=== PATIENT | female | born 1960 | race Hispanic/Latino ===

== ENCOUNTER 2016-10-27 08:23 | Inpatient (IN) | payer MEDICARE, OTHER ==
[2016-10-27] MEDS ORDERED: Sodium Chloride 0.9% 500 ML IV STA ×2 (08:58→09:53)
--- NOTE | 2016-10-27 09:08 | ED PDOC ---
Arrival/HPI - General Chief Complaint: Trauma Time Seen by Provider: 10/27/16 08:51 Historian: Patient - History of Present Illness Narrative History of Present Illness (Text): 10/27/16 08:45 A 56 year old female, whose past medical history includes anemia, arthritis, COPD on home oxygen as needed, diabetes and CHF, presents to the emergency department complaining of generalized fatigue since yesterday. Patient reports her legs feel weak and she "can not walk." She says when laying down she is able to move all four of her extremities without difficulty. She denies any bowel/bladder incontinence, chest pain, shortness of breath, back pain or other complaints at this time. Patient believes symptoms are secondary to a new medication she was started on but she can not recall the name but does believe it is a mediation for her CHF. PMD: Dr. Zhu Time/Duration: 24 hours Symptom Onset: Sudden Symptom Course: Unchanged Quality: Other Activities at Onset: Rest Context: Home Past Medical History - Provider Review Nursing Documentation Reviewed: Yes - Infectious Disease Hx of Infectious Diseases: None - Tetanus Immunization Tetanus Immunization: Unknown - Reproductive Menopause: Yes - Cardiac Hx Cardiac Disorders: Yes Hx Congestive Heart Failure: Yes Hx Heart Murmur: Yes Hx Hypertension: No Other/Comment: cardiomyopathy - Pulmonary Hx Chronic Obstructive Pulmonary Disease (COPD): Yes - Neurological Hx Neurological Disorder: Yes Hx Dizziness: Yes Other/Comment: Restless leg syndrome. Fibromyalgia - HEENT Hx HEENT Disorder: Yes Hx Epistaxis: Yes - Renal Hx Renal Disorder: Yes Hx Kidney Stones: Yes - Endocrine/Metabolic Hx Endocrine Disorders: Yes Hx Diabetes Mellitus Type 2: Yes - Hematological/Oncological Hx Blood Disorders: Yes Hx Anemia: Yes - Integumentary Hx Dermatological Disorder: Yes - Musculoskeletal/Rheumatological Hx Arthritis: Yes - Gastrointestinal Hx Gastrointestinal Disorders: Yes Hx Gastrointestinal Ulcer: Yes - Genitourinary/Gynecological Hx Genitourinary Disorders: Yes Hx Incontinence: Yes Hx Urinary Tract Infection: Yes Other/Comment: Endometriosis - Psychiatric Hx Psychophysiologic Disorder: Yes Hx Anxiety: Yes Hx Depression: Yes Hx Emotional Abuse: No Hx Physical Abuse: No Hx Substance Use: No - Surgical History Hx Appendectomy: Yes Hx Cardiac Catheterization: Yes Hx Coronary Stent: Yes Other/Comment: Abd lap W R oophorectomy & partial L oophrectomy. c section, I & D cellulitis both legs, bilateral axilla, - Anesthesia Hx Anesthesia: Yes Hx Anesthesia Reactions: No Hx Malignant Hyperthermia: No - Suicidal Assessment Feels Threatened In Home Enviroment: No Family/Social History - Physician Review Nursing Documentation Reviewed: Yes Family/Social History: Unknown Family HX Smoking Status: Never Smoked Hx Alcohol Use: No Hx Substance Use: No Hx Substance Use Treatment: No Allergies/Home Meds Allergies/Adverse Reactions: Allergies theophylline Allergy (Verified 09/16/15 17:29) NAUSEA Home Medications: Home Meds Medication Instructions Recorded Confirmed Atorvastatin Calcium [Lipitor] 20 mg PO DAILY 07/08/12 07/19/16 Carvedilol 6.25 mg PO BID 07/08/12 07/19/16 Ferrous Gluconate [Iron] 325 mg PO TID 07/08/12 07/19/16 Gemfibrozil 600 mg PO BID 07/08/12 07/19/16 Insulin Detemir [Levemir] 45 units SC AMHS 07/08/12 07/19/16 Iron/C/Folic Acd/Mv Cmb11/Calc 1 tab PO DAILY 07/08/12 07/19/16 [Ferrex 28 Tablet] Lactobacillus Acidophilus 300 mg PO DAILY 07/08/12 07/19/16 [Acidophilus] Montelukast Sodium [Singulair] 10 mg PO DAILY 07/08/12 07/19/16 Multimineral/Multivitamin 1 tab PO DAILY 07/08/12 07/19/16 [Strovite Plus] Potassium Chloride [Klor-Con] 20 meq PO BID 07/08/12 07/19/16 Quetiapine Fumarate [Seroquel] 100 mg PO HS 07/08/12 07/19/16 Clopidogrel Hydrogen Sulfate 75 mg PO DAILY 08/13/13 07/19/16 [Plavix] Allopurinol 300 mg PO DAILY 06/26/14 07/19/16 Pantoprazole Sodium [Protonix] 20 mg PO DAILY 06/26/14 07/19/16 fluvoxaMINE [Luvox] 50 mg PO BID 06/26/14 07/19/16 Insulin Lispro, Recombinant 40 unit SC ACTID 06/29/14 07/19/16 [Humalog] ALPRAZolam [Xanax] 1 tab PO DAILY 09/16/15 07/19/16 Albuterol HFA [Ventolin HFA 90 1 inh INH PRN PRN 09/16/15 07/19/16 mcg/actuation (8 g)] Budesonide/Formoterol Fumarate 2 inh INH BID 09/16/15 07/19/16 [Symbicort 80-4.5 Mcg Inhaler] Calcium Carbonate/Vitamin D3 1 tab PO BID 09/16/15 07/19/16 [Calcium 600 + Vit D 400 Caplet] Gemfibrozil [Lopid] 600 mg PO BID 09/16/15 07/19/16 Levocetirizine Dihydrochloride 5 mg PO HS 09/16/15 07/19/16 Vitamin B Complex 1 tab PO DAILY 09/16/15 07/19/16 Vitamin E 400 unit PO DAILY 09/16/15 07/19/16 metFORMIN [glucOPHAGE] 850 mg PO BID 09/16/15 07/19/16 Pregabalin [Lyrica] 50 mg PO BID 07/19/16 07/19/16 Review of Systems - Review of Systems Constitutional: Fatigue. absent: Fevers Eyes: absent: Vision Changes ENT: absent: Sinus Congestion Respiratory: absent: SOB Cardiovascular: absent: Chest Pain Gastrointestinal: Other (no bowel incontinence). absent: Abdominal Pain Genitourinary Female: Other (no bladder incontinence) Musculoskeletal: absent: Back Pain Skin: absent: Rash Neurological: Other (lower extremities feel weak and therefore she can't walk). absent: Headache, Dizziness Endocrine: absent: Polyuria Psychiatric: absent: Depression Physical Exam Vital Signs Reviewed: Yes Vital Signs Temp Pulse Resp BP Pulse Ox 10/27/16 10:20 79 18 124/88 94 L 10/27/16 09:41 82 17 124/68 93 L 10/27/16 08:39 98.9 F 103 H 17 116/65 82 L Temperature: Afebrile Blood Pressure: Normal Pulse: Tachycardic Respiratory Rate: Normal Appearance: Positive for: Well-Appearing, Non-Toxic, Comfortable Pain Distress: None Mental Status: Positive for: Alert and Oriented X 3 Finger Stick Blood Glucose: 352 - Systems Exam Head: Present: Atraumatic, Normocephalic Pupils: Present: PERRL Extroacular Muscles: Present: EOMI Conjunctiva: Present: Normal Mouth: Present: Moist Mucous Membranes Neck: Present: Normal Range of Motion Respiratory/Chest: Present: Clear to Auscultation, Good Air Exchange. No: Respiratory Distress, Accessory Muscle Use Cardiovascular: Present: Normal S1, S2, Tachycardic. No: Murmurs Abdomen: Present: Normal Bowel Sounds. No: Tenderness, Distention, Peritoneal Signs Back: Present: Normal Inspection Upper Extremity: Present: Normal Inspection, Normal ROM, Other (5/5 strength in upper and lower extremities when tested in stretcher). No: Cyanosis, Edema Lower Extremity: Present: Normal ROM, Other (small abrasion to the left knee). No: Edema Neurological: Present: GCS=15, CN II-XII Intact, Speech Normal. No: Gait Normal (unable to assess gait) Skin: Present: Warm, Dry, Normal Color. No: Rashes Psychiatric: Present: Alert, Oriented x 3, Normal Insight, Normal Concentration Medical Decision Making ED Course and Treatment: 10/27/16 08:45 Impression: A 56 year old female with generalized weakness. Differential Diagnosis include but are not limited to: anemia vs. electrolyte imbalance vs. medication side affect Plan: -- EKG -- Chest X-ray -- Labs -- Urinalysis -- IV Fluids -- Reassess and disposition Prior Visits: Notes and results from previous visits were reviewed. The patient last presented to the emergency department on 09/16/15 for evaluation of dizziness, nausea, shortness of breath and epistaxis. Progress Notes: EKG: Ordered, reviewed, and independently interpreted the EKG. Rate : 83 BPM Rhythm : NSR Interpretation : normal intervals; no ST changes. 10/27/16 09:20 Chest X-ray: Creator : Joe Hylton MD COMPARISON: 09/19/2016 FINDINGS: LUNGS: There is an infiltrate in the right upper lobe peripherally PLEURA: No significant pleural effusion identified, no pneumothorax apparent. CARDIOVASCULAR: Normal. OSSEOUS STRUCTURES: No significant abnormalities. VISUALIZED UPPER ABDOMEN: Normal. OTHER FINDINGS: None. IMPRESSION: Right upper lobe pneumonia Patient now reports that her unknown medication was metolazone, a diuretic. 10/27/16 09:43 Blood and urine cultures ordered. Antibiotics ordered 10/27/16 09:48 Hgb:7. Patient has hx of severe iron deficiency anemia. Type and cross ordered and 1 unit PRBCS ordered. 10/27/16 09:53 Patient's labs show elevated WBC of 15, renal failure with Bun 134/3 and hyperglycemia. Patient has hx of chf and elevated bnp, but maintaining o2 sat on home o2 and does not currently appear overloaded. Will need to monitor respiratory status due to need for blood, IVF and antibiotics. Spoke to Dr. Zhu and will admit to tele for renal failure, anemia, and pneumonia - Lab Interpretations Lab Results: 10/27/16 09:10 10/27/16 09:10 Lab Results 10/27/16 09:10: Sodium 130 L, Potassium 4.0, Chloride 87 L, Carbon Dioxide 28, Anion Gap 19, BUN 134 H*, Creatinine 3.0 H, Est GFR ( Amer) 20, Est GFR ( Non-Af Amer) 16, Random Glucose 440 H* D, Calcium 10.1, Phosphorus 3.3, Magnesium 2.3 H, Total Bilirubin 0.8, AST 40 H, ALT 25, Alkaline Phosphatase 100 , Total Creatine Kinase 189, Troponin I 0.05 D, NT-Pro-B Natriuret Pep 1910 H, Total Protein 8.0, Albumin 4.3, Globulin 3.7, Albumin/Globulin Ratio 1.2 10/27/16 09:10: WBC 15.4 H D, RBC 2.58 L, Hgb 7.6 L, Hct 23.5 L, MCV 91.1, MCH 29.5, MCHC 32.3, RDW 17.0 H, Plt Count 239, MPV 12.7 H, Gran % 84.0 H, Lymph % ( Auto) 7.2 L, [place] % (Auto) 6.5 H, Eos % (Auto) 1.9, Baso % (Auto) 0.4, Gran # 12.92 H, Lymph # 1.1 L, [place] # 1.0 H, Eos # 0.3, Baso # 0.06 I have reviewed the lab results: Yes - RAD Interpretation Radiology Orders: 10/27/16 08:52 CHEST PORTABLE [RAD] Stat - Medication Orders Current Medication Orders: Acetaminophen (Tylenol 325mg Tab) 650 mg PO Q6H PRN PRN Reason: Fever >100.4 F Alprazolam (Xanax) 1 mg PO TID PRN PRN Reason: Anxiety Atorvastatin Calcium (Lipitor) 20 mg PO DAILY [facility] Carvedilol (Coreg) 6.25 mg PO BID [facility] Clopidogrel Bisulfate (Plavix) 75 mg PO DAILY [facility] Sodium Chloride (Sodium Chloride 0.45%) 1,000 mls @ 60 mls/hr IV .[id number] [facility] Azithromycin (Zithromax 500mg In Ns) 500 mg in 250 mls @ 167 mls/hr IVPB DAILY [facility] PRN Reason: Protocol Ceftriaxone Sodium (Rocephin 1 Gram Ivpb) 1 gm in 100 mls @ 100 mls/hr IVPB DAILY [facility] PRN Reason: Protocol Insulin Human Regular (Humulin R High) 0 units SC ACHS [facility] PRN Reason: Protocol Lactobacillus Acidophilus (Bacid Acidophilus) 1 cap PO DAILY [facility] Levalbuterol HCl (Xopenex) 1.25 mg IH [id number] [facility] Non-Formulary Medication (Fluvoxamine [Luvox]) 50 mg PO BID [facility] Ondansetron HCl (Zofran Inj) 4 mg IVP Q6H PRN PRN Reason: Nausea/Vomiting Pantoprazole Sodium (Protonix Ec Tab) 40 mg PO ACB [facility] Pregabalin (Lyrica) 50 mg PO BID [facility] Quetiapine Fumarate (Seroquel) 100 mg PO HS [facility] PRN Reason: Protocol Discontinued Medications Alprazolam (Xanax) 1 mg PO TID PRN; Protocol PRN Reason: Anxiety Stop: 11/03/16 14:01 Clopidogrel Bisulfate (Plavix) 75 mg PO .EXTRA DOSE ONE Stop: 10/27/16 11:01 Sodium Chloride (Sodium Chloride 0.9%) 500 mls @ 999 mls/hr IV .Q31M STA Stop: 10/27/16 09:28 Last Admin: 10/27/16 09:45 Dose: 999 mls/hr Levofloxacin/Dextrose (Levaquin 750mg) 750 mg in 150 mls @ 100 mls/hr IVPB STAT STA Stop: 10/27/16 11:16 Last Admin: 10/27/16 10:29 Dose: 100 mls/hr Sodium Chloride (Sodium Chloride 0.9%) 500 mls @ 999 mls/hr IV .Q31M STA Stop: 10/27/16 10:23 Last Admin: 10/27/16 10:00 Dose: 999 mls/hr Lactobacillus Acidophilus (Bacid Acidophilus) 1 cap PO .EXTRA DOSE ONE Stop: 10/27/16 11:01 Non-Formulary Medication (Clopidogrel Hydrogen Sulfate [Plavix]) 75 mg PO DAILY [facility] Non-Formulary Medication (Lactobacillus Acidophilus [Acidophilus]) 300 mg PO DAILY [facility] Pantoprazole Sodium (Protonix Ec Tab) 40 mg PO DAILY [facility] Pantoprazole Sodium (Protonix Ec Tab) 40 mg PO .EXTRA DOSE ONE Stop: 10/27/16 11:16 - Scribe Statement The provider has reviewed the documentation as recorded by the Miguel Aibhenry Kwon Provider Scribe Attestation: All medical record entries made by the Scribe were at my direction and personally dictated by me. I have reviewed the chart and agree that the record accurately reflects my personal performance of the history, physical exam, medical decision making, and the department course for this patient. I have also personally directed, reviewed, and agree with the discharge instructions and disposition. Disposition/Present on Arrival - Present on Arrival Any Indicators Present on Arrival: No History of DVT/PE: No History of Uncontrolled Diabetes: Yes Urinary Catheter: No History of Decub. Ulcer: No History Surgical Site Infection Following: None - Disposition Have Diagnosis and Disposition been Completed?: Yes Diagnosis: Renal failure, Anemia, Pneumonia Disposition: HOSPITALIZED Disposition Time: 09:48 Patient Plan: Admission Patient Problems: Current Active Problems Problem Status Onset Renal failure Acute Anemia Acute Pneumonia Acute Condition: FAIR
--- NOTE | 2016-10-27 09:17 | RAD ---
HISTORY: fatigue COMPARISON: 09/19/2016 FINDINGS: LUNGS: There is an infiltrate in the right upper lobe peripherally PLEURA: No significant pleural effusion identified, no pneumothorax apparent. CARDIOVASCULAR: Normal. OSSEOUS STRUCTURES: No significant abnormalities. VISUALIZED UPPER ABDOMEN: Normal. OTHER FINDINGS: None. IMPRESSION: Right upper lobe pneumonia
[2016-10-27 09:30] LABS: BASO # 0.06 K/mm3 (0.0-2.0); BASO % 0.4 % (0.0-3.0); EOS # 0.3 (0.0-0.7); EOS % 1.9 % (1.5-5.0); GRAN # 12.92 (1.4-6.5); LYMPH # 1.1 (1.2-3.4); LYMPH % 7.2 % (22.0-35.0); MEAN CELL VOLUME 91.1 fL (80.0-105.0); MEAN CORPUSCULAR HEMOGLOBIN 29.5 pg (25.0-35.0); MEAN CORPUSCULAR HGB CONC 32.3 g/dl (31.0-37.0); MEAN PLATELET VOLUME 12.7 fl (7.0-11.0); MONO % 6.5 % (1.0-6.0); PLATELET COUNT 239 10^3/uL (120.0-450.0); RBC 2.58 10^6/uL (3.5-6.1); WHITE BLOOD COUNT 15.4 10^3/ul (4.5-11.0)
[2016-10-27 09:38] LABS: HEMOGLOBIN 7.6 gm/dL (12.0-16.0)
[2016-10-27 09:41] LABS: ALB/GLOB RATIO 1.2 (1.1-1.8); ALBUMIN 4.3 g/dL (3.0-4.8); CALCIUM 10.1 mg/dL (8.4-10.5); MAGNESIUM 2.3 mg/dL (1.7-2.2)
[2016-10-27] MEDS ORDERED: levoFLOXacin 750 mg in D5W 750 MG/150 ML BAG IVPB STA (09:47)
[2016-10-27 09:52] LABS: TROPONIN I 0.05 ng/mL
[2016-10-27] MEDS ORDERED: FLUVOXAMINE 50 MG PO SCH (10:45)
[2016-10-27] MEDS ORDERED: Pantoprazole 20 mg EC Tab PO SCH (10:45)
[2016-10-27] MEDS ORDERED: LACTOBACILLUS ACIDOPHILUS PO SCH (10:45)
[2016-10-27] MEDS ORDERED: Sodium Chloride 0.45% 1,000 ML IV SCH (11:00)
[2016-10-27] MEDS ORDERED: Lactobacillus Acidophilus 500 MU Cap PO ONE (11:00)
[2016-10-27] MEDS ORDERED: Pantoprazole 40 mg EC Tab PO ONE (11:15)
[2016-10-27] MEDS ORDERED: Insulin Regular 1 UNITS/0.01 ML ML ONE (11:52)
[2016-10-27] MEDS: Lactobacillus Acidophilus 500 MU Cap PO SCH (11:58)
[2016-10-27] MEDS: Pantoprazole 40 mg EC Tab PO SCH (11:58)
[2016-10-27] MEDS: Insulin Reg-HIGH-Coverage SC SCH ×3 (11:59→21:32)
[2016-10-27 12:13] LABS: URINE BILIRUBIN NEGATIVE (NEGATIVE); URINE BLOOD LARGE (NEGATIVE); URINE GLUCOSE (UA) NEGATIVE (NEGATIVE); URINE LEUKOCYTE ESTERASE TRACE Leu/uL (NEGATIVE); URINE NITRATE NEGATIVE (NEGATIVE); URINE PROTEIN 100 mg/dL (<30 mg/dL); URINE UROBILINOGEN 0.2 E.U./dL (<1 E.U./dL)
[2016-10-27 12:18] LABS: URINE APPEARANCE CLOUDY (CLEAR); URINE COLOR YELLOW (YELLOW)
[2016-10-27 12:20] LABS: URINE BACTERIA MANY (NEG)
[2016-10-27] MEDS: Levalbuterol 1.25 MG/3 ML Inhal Soln UD IH SCH ×2 (13:31→19:27)
--- NOTE | 2016-10-27 13:36 | CARD ---
APPROVED REPORT EKG Measurement Heart [id number] <Conclusion> Normal sinus rhythm PRWP V 1 -4
--- NOTE | 2016-10-27 16:05 | CP.PCM.CON ---
History of Present Illness - History of Present Illness History of Present Illness: A 56 year old female, whose past medical history includes anemia, arthritis, COPD on home oxygen as needed, diabetes and CHF, presents to the emergency department complaining of generalized fatigue since yesterday. Patient reports her legs feel weak and she "can not walk." She says when laying down she is able to move all four of her extremities without difficulty. She denies any bowel/bladder incontinence, chest pain, shortness of breath, back pain or other complaints at this time. Patient believes symptoms are secondary to a new medication she was started on but she can not recall the name but does believe it is a mediation for her CHF. She was started on Metolozone BIW by Dr Hartley FHx: NC SHx: No smoking, no alcohol, no IVDA All: NKDA Review of Systems - Review of Systems All systems: reviewed and no additional remarkable complaints except Past Patient History - Infectious Disease Hx of Infectious Diseases: None - Tetanus Immunizations Tetanus Immunization: Unknown - Past Medical History & Family History Past Medical History?: Yes - Past Social History Smoking Status: Never Smoked Alcohol: None - CARDIAC Hx Cardiac Disorders: Yes Hx Congestive Heart Failure: Yes Hx Heart Murmur: Yes Hx Hypertension: No Other/Comment: cardiomyopathy - PULMONARY Hx Chronic Obstructive Pulmonary Disease (COPD): Yes - NEUROLOGICAL Hx Neurological Disorder: Yes Hx Dizziness: Yes Other/Comment: Restless leg syndrome. Fibromyalgia - HEENT Hx HEENT Problems: Yes Hx Epistaxis: Yes - RENAL Hx Chronic Kidney Disease: Yes Hx Kidney Stones: Yes - ENDOCRINE/METABOLIC Hx Endocrine Disorders: Yes Hx Diabetes Mellitus Type 2: Yes - HEMATOLOGICAL/ONCOLOGICAL Hx Blood Disorders: Yes Hx Anemia: Yes - INTEGUMENTARY Hx Dermatological Problems: Yes - MUSCULOSKELETAL/RHEUMATOLOGICAL Hx Arthritis: Yes - GASTROINTESTINAL Hx Gastrointestinal Disorders: Yes - GENITOURINARY/GYNECOLOGICAL Hx Genitourinary Disorders: Yes Hx Incontinence: Yes Hx Urinary Tract Infection: Yes Other/Comment: Endometriosis - PSYCHIATRIC Hx Psychophysiologic Disorder: Yes Hx Anxiety: Yes Hx Depression: Yes Hx Emotional Abuse: No Hx Physical Abuse: No Hx Substance Use: No - SURGICAL HISTORY Hx Appendectomy: Yes Hx Cardiac Catheterization: Yes Hx Coronary Stent: Yes Other/Comment: Abd lap W R oophorectomy & partial L oophrectomy. c section, I & D cellulitis both legs, bilateral axilla, - ANESTHESIA Hx Anesthesia: Yes Hx Anesthesia Reactions: No Hx Malignant Hyperthermia: No Meds Allergies/Adverse Reactions: Allergies Allergy/AdvReac Type Severity Reaction Status Date / Time theophylline Allergy NAUSEA Verified 09/16/15 17:29 - Medications Medications: Current Medications Acetaminophen (Tylenol 325mg Tab) 650 mg PO Q6H PRN PRN Reason: Fever >100.4 F Alprazolam (Xanax) 1 mg PO TID PRN PRN Reason: Anxiety Atorvastatin Calcium (Lipitor) 20 mg PO DAILY [facility] Carvedilol (Coreg) 6.25 mg PO BID [facility] Last Admin: 10/27/16 11:59 Dose: 6.25 mg Clopidogrel Bisulfate (Plavix) 75 mg PO DAILY [facility] Last Admin: 10/27/16 11:58 Dose: 75 mg Sodium Chloride (Sodium Chloride 0.45%) 1,000 mls @ 60 mls/hr IV .[id number] [facility] Last Admin: 10/27/16 11:36 Dose: 60 mls/hr Azithromycin (Zithromax 500mg In Ns) 500 mg in 250 mls @ 167 mls/hr IVPB DAILY [facility] PRN Reason: Protocol Ceftriaxone Sodium (Rocephin 1 Gram Ivpb) 1 gm in 100 mls @ 100 mls/hr IVPB DAILY [facility] PRN Reason: Protocol Insulin Human Regular (Humulin R High) 0 units SC ACHS [facility] PRN Reason: Protocol Last Admin: 10/27/16 11:59 Dose: 15 units Lactobacillus Acidophilus (Bacid Acidophilus) 1 cap PO DAILY [facility] Last Admin: 10/27/16 12:01 Dose: 1 cap Levalbuterol HCl (Xopenex) 1.25 mg IH [id number] [facility] Last Admin: 10/27/16 13:31 Dose: 1.25 mg Non-Formulary Medication (Fluvoxamine [Luvox]) 50 mg PO BID [facility] Ondansetron HCl (Zofran Inj) 4 mg IVP Q6H PRN PRN Reason: Nausea/Vomiting Pantoprazole Sodium (Protonix Ec Tab) 40 mg PO ACB [facility] Last Admin: 10/27/16 11:58 Dose: 40 mg Pregabalin (Lyrica) 50 mg PO BID [facility] Quetiapine Fumarate (Seroquel) 100 mg PO HS [facility] PRN Reason: Protocol Physical Exam - Constitutional Appears: Unkempt, Confused - Head Exam Head Exam: ATRAUMATIC, NORMAL INSPECTION, NORMOCEPHALIC - Eye Exam Eye Exam: Normal appearance - ENT Exam ENT Exam: Mucous Membranes Dry - Neck Exam Neck exam: Positive for: Normal Inspection - Respiratory Exam Respiratory Exam: Rhonchi, NORMAL BREATHING PATTERN - Cardiovascular Exam Cardiovascular Exam: REGULAR RHYTHM, +S1, +S2 - GI/Abdominal Exam GI & Abdominal Exam: Normal Bowel Sounds, Soft - Extremities Exam Extremities exam: Positive for: normal inspection, pedal pulses present Results - Vital Signs Recent Vital Signs: Last Vital Signs Temp 97.6 F 10/27/16 13:15 Pulse 79 10/27/16 13:15 Resp 20 10/27/16 13:15 BP 125/70 10/27/16 13:15 Pulse Ox 95 10/27/16 11:59 - Labs Result Diagrams: 10/27/16 09:10 10/27/16 09:10 Labs: Laboratory Results - last 24 hr 10/27/16 10/27/16 10/27/16 10:40 11:22 11:55 POC Glucose (mg/dL) 416 H* Troponin I Urine Color Yellow Urine Appearance Cloudy Urine pH 6.0 Ur Specific [place] 1.020 Urine Protein 100 H Urine Glucose (UA) Negative Urine Ketones Negative Urine Blood Large H Urine Nitrate Negative Urine Bilirubin Negative Urine Urobilinogen 0.2 Ur Leukocyte Esterase Trace H Urine RBC 5 - 10 Urine WBC 10 - 15 Ur Epithelial Cells 10 - 12 Urine Bacteria Many Blood Type A POSITIVE Antibody Screen Negative Crossmatch See Detail BBK History Checked Patient has bt 10/27/16 12:00 POC Glucose (mg/dL) Troponin I 0.04 Urine Color Urine Appearance Urine pH Ur Specific [place] Urine Protein Urine Glucose (UA) Urine Ketones Urine Blood Urine Nitrate Urine Bilirubin Urine Urobilinogen Ur Leukocyte Esterase Urine RBC Urine WBC Ur Epithelial Cells Urine Bacteria Blood Type Antibody Screen Crossmatch BBK History Checked Assessment & Plan - Assessment and Plan (Free Text) Assessment: JAMIL, Prerenal azotemia 2/2 to Lasix Dehydration Depletional hyponatremia suspect Contarction alkalosis NIDDM Neuropathy Hematuria/Proteinuria Severe Anemia, ??? etiology IVF, NS at 80cc/hr Strict I/O Hold Diuretics Hold Metformin Tight glycemic control Check urine c/s Monitor electrolytes closely Abdominal imaging: increased girth Thank u for allowing me to participate in the care of this patient - Date & Time Date: 10/27/16 Time: 13:00
[2016-10-27] MEDS: Sodium Chloride 0.9% 1,000 ML IV SCH (16:33)
--- NOTE | 2016-10-27 16:59 | CP.PCM.CON ---
History of Present Illness - History of Present Illness History of Present Illness: Rerason For consult: Hx of CAD, Hx of CMP, admitted with pneumonia and anemia. 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 PMHX Anemia on IV Iron Hx of CAD S/p PTCA LAD 03/03/2013 T2 DM Obesity COPd on Home O2 off and On Obesity Shx ; denies smoking, ETOH Recent Cardiac W/u : Stress test 07/19/2016 EF-60%, no Ischemia ...no change from 08/18/2013 ECHO.. 07/19/2016 EF-55%Mild to Moderate 'Trace MR/TR [id number]. Review of Systems - Constitutional Constitutional: As Per HPI, Anorexia, Fatigue - EENT Eyes: As Per HPI Nose/Mouth/Throat: As Per HPI - Breasts Breasts: As Per HPI - Cardiovascular Cardiovascular: As Per HPI - Respiratory Respiratory: Cough - Gastrointestinal Gastrointestinal: As Per HPI Additional comments: NO Hx of vomiting or jose - Genitourinary Genitourinary: As Per HPI - Reproductive: Female Reproductive:Female: As Per HPI - Menstruation Menstruation: As Per HPI Past Patient History - Infectious Disease Hx of Infectious Diseases: None - Tetanus Immunizations Tetanus Immunization: Unknown - Past Medical History & Family History Past Medical History?: Yes - Past Social History Smoking Status: Never Smoked Alcohol: None - CARDIAC Hx Cardiac Disorders: Yes Hx Congestive Heart Failure: Yes Hx Heart Murmur: Yes Hx Hypertension: No Other/Comment: cardiomyopathy - PULMONARY Hx Chronic Obstructive Pulmonary Disease (COPD): Yes - NEUROLOGICAL Hx Neurological Disorder: Yes Hx Dizziness: Yes Other/Comment: Restless leg syndrome. Fibromyalgia - HEENT Hx HEENT Problems: Yes Hx Epistaxis: Yes - RENAL Hx Chronic Kidney Disease: Yes Hx Kidney Stones: Yes - ENDOCRINE/METABOLIC Hx Endocrine Disorders: Yes Hx Diabetes Mellitus Type 2: Yes - HEMATOLOGICAL/ONCOLOGICAL Hx Blood Disorders: Yes Hx Anemia: Yes - INTEGUMENTARY Hx Dermatological Problems: Yes - MUSCULOSKELETAL/RHEUMATOLOGICAL Hx Arthritis: Yes - GASTROINTESTINAL Hx Gastrointestinal Disorders: Yes - GENITOURINARY/GYNECOLOGICAL Hx Genitourinary Disorders: Yes Hx Incontinence: Yes Hx Urinary Tract Infection: Yes Other/Comment: Endometriosis - PSYCHIATRIC Hx Psychophysiologic Disorder: Yes Hx Anxiety: Yes Hx Depression: Yes Hx Emotional Abuse: No Hx Physical Abuse: No Hx Substance Use: No - SURGICAL HISTORY Hx Appendectomy: Yes Hx Cardiac Catheterization: Yes Hx Coronary Stent: Yes Other/Comment: Abd lap W R oophorectomy & partial L oophrectomy. c section, I & D cellulitis both legs, bilateral axilla, - ANESTHESIA Hx Anesthesia: Yes Hx Anesthesia Reactions: No Hx Malignant Hyperthermia: No Meds Allergies/Adverse Reactions: Allergies Allergy/AdvReac Type Severity Reaction Status Date / Time theophylline Allergy NAUSEA Verified 09/16/15 17:29 - Medications Medications: Current Medications Acetaminophen (Tylenol 325mg Tab) 650 mg PO Q6H PRN PRN Reason: Fever >100.4 F Alprazolam (Xanax) 1 mg PO TID PRN PRN Reason: Anxiety Atorvastatin Calcium (Lipitor) 20 mg PO DAILY [facility] Carvedilol (Coreg) 6.25 mg PO BID [facility] Last Admin: 10/27/16 11:59 Dose: 6.25 mg Clopidogrel Bisulfate (Plavix) 75 mg PO DAILY [facility] Last Admin: 10/27/16 11:58 Dose: 75 mg Azithromycin (Zithromax 500mg In Ns) 500 mg in 250 mls @ 167 mls/hr IVPB DAILY [facility] PRN Reason: Protocol Ceftriaxone Sodium (Rocephin 1 Gram Ivpb) 1 gm in 100 mls @ 100 mls/hr IVPB DAILY [facility] PRN Reason: Protocol Sodium Chloride (Sodium Chloride 0.9%) 1,000 mls @ 80 mls/hr IV .[id number] [facility] Insulin Human Regular (Humulin R High) 0 units SC ACHS [facility] PRN Reason: Protocol Last Admin: 10/27/16 11:59 Dose: 15 units Lactobacillus Acidophilus (Bacid Acidophilus) 1 cap PO DAILY [facility] Last Admin: 10/27/16 12:01 Dose: 1 cap Levalbuterol HCl (Xopenex) 1.25 mg IH [id number] [facility] Last Admin: 10/27/16 13:31 Dose: 1.25 mg Non-Formulary Medication (Fluvoxamine [Luvox]) 50 mg PO BID [facility] Ondansetron HCl (Zofran Inj) 4 mg IVP Q6H PRN PRN Reason: Nausea/Vomiting Pantoprazole Sodium (Protonix Ec Tab) 40 mg PO ACB [facility] Last Admin: 10/27/16 11:58 Dose: 40 mg Pregabalin (Lyrica) 50 mg PO BID [facility] Quetiapine Fumarate (Seroquel) 100 mg PO HS [facility] PRN Reason: Protocol Physical Exam - Head Exam Head Exam: NORMAL INSPECTION - Eye Exam Eye Exam: Normal appearance - ENT Exam ENT Exam: Mucous Membranes Moist - Neck Exam Neck exam: Positive for: Full Rom - Respiratory Exam Respiratory Exam: Clear to Auscultation Bilateral Results - Vital Signs Recent Vital Signs: Last Vital Signs Temp 97.6 F 10/27/16 13:15 Pulse 79 10/27/16 13:15 Resp 20 10/27/16 13:15 BP 125/70 10/27/16 13:15 Pulse Ox 95 10/27/16 11:59 - Labs Result Diagrams: 10/27/16 09:10 10/27/16 09:10 Labs: Laboratory Results - last 24 hr 10/27/16 10/27/16 10/27/16 10:40 11:22 11:55 POC Glucose (mg/dL) 416 H* Troponin I Urine Color Yellow Urine Appearance Cloudy Urine pH 6.0 Ur Specific Hundred 1.020 Urine Protein 100 H Urine Glucose (UA) Negative Urine Ketones Negative Urine Blood Large H Urine Nitrate Negative Urine Bilirubin Negative Urine Urobilinogen 0.2 Ur Leukocyte Esterase Trace H Urine RBC 5 - 10 Urine WBC 10 - 15 Ur Epithelial Cells 10 - 12 Urine Bacteria Many Blood Type A POSITIVE Antibody Screen Negative Crossmatch See Detail BBK History Checked Patient has bt 10/27/16 10/27/16 12:00 16:15 POC Glucose (mg/dL) 416 H* Troponin I 0.04 Urine Color Urine Appearance Urine pH Ur Specific Hundred Urine Protein Urine Glucose (UA) Urine Ketones Urine Blood Urine Nitrate Urine Bilirubin Urine Urobilinogen Ur Leukocyte Esterase Urine RBC Urine WBC Ur Epithelial Cells Urine Bacteria Blood Type Antibody Screen Crossmatch BBK History Checked Assessment & Plan - Assessment and Plan (Free Text) Assessment: Severe Anemia admitting Hb. 7.6 HX of Iron deficiency Anemia Hx of CAD. S/p PTCA LAD 03/03/2013 Recent stress test Negative for Ischemia, E60%. 07/19/2016 Recent Echo..EF-55%. Mild to Moderate . Trace MR/TR [id number]..... Copd on Home O2 off and On T2DM Pnenmonia HTN obesity Hx of CMP...resolved. Plan: PRBCs Lasix post transfusion Antibiotics keep Hb...around 10 gm will follow.
[2016-10-27] MEDS: FLUVOXAMINE 50 MG PO SCH (17:31)
[2016-10-27 19:42] VITALS: BMI 29.7
[2016-10-28] MEDS: Levalbuterol 1.25 MG/3 ML Inhal Soln UD IH SCH ×4 (01:03→21:16)
[2016-10-28] MEDS ORDERED: Insulin Regular 1 UNITS/0.01 ML ML SC STA (02:20)
--- NOTE | 2016-10-28 02:20 | CP.PCM.PN ---
Subjective - Date & Time of Evaluation Date of Evaluation: 10/28/16 Time of Evaluation: 02:18 - Subjective Subjective: Nurse Perez calls and tells that patient had sob, she received xopenex treatment and feels better but her FSBS was 381 mg % , she received 3 units of regular insulin and repeat FSBS is 419 mg % . Patient was seen at bedside. States that she did not take any extra food. States that she is on Lantus 45 units BID, Novolog 45 units TID at home. And she is not sure if she skipped any doses. Has no complaints now. Denies blurry vision, increased frequency, neuropathic pain. Pulse ox is 94 % on 4L/min by nasal canula. 56 year old white woman admitted with generalized fatigue,weakness,inability to walk. Has PMH of HTN, IDDM, morbid obesity, CAD, COPD, CHF, depression, recurrent epistaxis. anemia, arthritis, home oxygenation. Objective - Vital Signs/Intake and Output Vital Signs (last 24 hours): Temp Pulse Resp BP Pulse Ox 99.1 F 95 H 20 109/51 L 94 L 10/27/16 23:52 10/27/16 23:52 10/27/16 23:52 10/27/16 23:52 10/27/16 23:52 Intake and Output: 10/27/16 10/28/16 18:59 06:59 Intake Total 745 Balance 745 - Medications Medications: Current Medications Acetaminophen (Tylenol 325mg Tab) 650 mg PO Q6H PRN PRN Reason: Fever >100.4 F Alprazolam (Xanax) 1 mg PO TID PRN PRN Reason: Anxiety Atorvastatin Calcium (Lipitor) 20 mg PO DAILY [facility] Carvedilol (Coreg) 6.25 mg PO BID [facility] Last Admin: 10/27/16 16:59 Dose: 6.25 mg Clopidogrel Bisulfate (Plavix) 75 mg PO DAILY [facility] Last Admin: 10/27/16 11:58 Dose: 75 mg Gabapentin (Neurontin) 100 mg PO QID [facility] PRN Reason: Protocol Last Admin: 10/27/16 21:31 Dose: 100 mg Azithromycin (Zithromax 500mg In Ns) 500 mg in 250 mls @ 167 mls/hr IVPB DAILY [facility] PRN Reason: Protocol Ceftriaxone Sodium (Rocephin 1 Gram Ivpb) 1 gm in 100 mls @ 100 mls/hr IVPB DAILY [facility] PRN Reason: Protocol Sodium Chloride (Sodium Chloride 0.9%) 1,000 mls @ 80 mls/hr IV .[id number] [facility] Last Admin: 10/27/16 16:33 Dose: 80 mls/hr Insulin Human Regular (Humulin R High) 0 units SC ACHS [facility] PRN Reason: Protocol Last Admin: 10/27/16 21:32 Dose: 3 units Lactobacillus Acidophilus (Bacid Acidophilus) 1 cap PO DAILY [facility] Last Admin: 10/27/16 12:01 Dose: 1 cap Levalbuterol HCl (Xopenex) 1.25 mg IH [id number] [facility] Last Admin: 10/28/16 01:03 Dose: 1.25 mg Non-Formulary Medication (Fluvoxamine [Luvox]) 50 mg PO BID [facility] Last Admin: 10/27/16 17:31 Dose: Not Given Ondansetron HCl (Zofran Inj) 4 mg IVP Q6H PRN PRN Reason: Nausea/Vomiting Pantoprazole Sodium (Protonix Ec Tab) 40 mg PO ACB [facility] Last Admin: 10/27/16 11:58 Dose: 40 mg Promethazine HCl/Codeine (Phenergan/Codeine Oral Syrup) 5 ml PO Q6H PRN PRN Reason: Cough and congestion Quetiapine Fumarate (Seroquel) 100 mg PO HS [facility] PRN Reason: Protocol Last Admin: 10/27/16 21:31 Dose: 100 mg - Labs Labs: Most Recent Lab Values WBC 15.4 10^3/ul (4.5-11.0) H D 10/27/16 09:10 RBC 2.58 10^6/uL (3.5-6.1) L 10/27/16 09:10 Hgb 7.6 gm/dL (12.0-16.0) L 10/27/16 09:10 Hct 23.5 % (36.0-48.0) L 10/27/16 09:10 MCV 91.1 fL (80.0-105.0) 10/27/16 09:10 MCH 29.5 pg (25.0-35.0) 10/27/16 09:10 MCHC 32.3 g/dl (31.0-37.0) 10/27/16 09:10 RDW 17.0 % (11.5-14.5) H 10/27/16 09:10 Plt Count 239 10^3/uL (120.0-450.0) 10/27/16 09:10 MPV 12.7 fl (7.0-11.0) H 10/27/16 09:10 Gran % 84.0 % (50.0-68.0) H 10/27/16 09:10 Lymph % (Auto) 7.2 % (22.0-35.0) L 10/27/16 09:10 [place] % (Auto) 6.5 % (1.0-6.0) H 10/27/16 09:10 Eos % (Auto) 1.9 % (1.5-5.0) 10/27/16 09:10 Baso % (Auto) 0.4 % (0.0-3.0) 10/27/16 09:10 Gran # 12.92 (1.4-6.5) H 10/27/16 09:10 Lymph # 1.1 (1.2-3.4) L 10/27/16 09:10 [place] # 1.0 (0.1-0.6) H 10/27/16 09:10 Eos # 0.3 (0.0-0.7) 10/27/16 09:10 Baso # 0.06 K/mm3 (0.0-2.0) 10/27/16 09:10 Sodium 130 mmol/L (132-148) L 10/27/16 09:10 Potassium 4.0 mmol/L (3.6-5.0) 10/27/16 09:10 Chloride 87 mmol/L (98-107) L 10/27/16 09:10 Carbon Dioxide 28 mmol/L (21-33) 10/27/16 09:10 Anion Gap 19 (10-20) 10/27/16 09:10 BUN 134 mg/dL (7-21) H* 10/27/16 09:10 Creatinine 3.0 mg/dL (0.5-1.4) H 10/27/16 09:10 Est GFR ( Amer) 20 10/27/16 09:10 Est GFR (Non-Af Amer) 16 10/27/16 09:10 POC Glucose (mg/dL) 419 mg/dL (65-110) H* 10/28/16 02:01 Random Glucose 440 mg/dL (70-110) H* D 10/27/16 09:10 Calcium 10.1 mg/dL (8.4-10.5) 10/27/16 09:10 Phosphorus 3.3 mg/dL (2.5-4.5) 10/27/16 09:10 Magnesium 2.3 mg/dL (1.7-2.2) H 10/27/16 09:10 Total Bilirubin 0.8 mg/dL (0.2-1.3) 10/27/16 09:10 AST 40 U/L (15-39) H 10/27/16 09:10 ALT 25 U/L (7-56) 10/27/16 09:10 Alkaline Phosphatase 100 U/L (38-133) 10/27/16 09:10 Total Creatine Kinase 189 U/L (35-230) 10/27/16 09:10 Troponin I 0.04 ng/mL 10/27/16 12:00 NT-Pro-B Natriuret Pep 1910 pg/mL (0-450) H 10/27/16 09:10 Total Protein 8.0 g/dL (5.8-8.3) 10/27/16 09:10 Albumin 4.3 g/dL (3.0-4.8) 10/27/16 09:10 Globulin 3.7 gm/dL 10/27/16 09:10 Albumin/Globulin Ratio 1.2 (1.1-1.8) 10/27/16 09:10 Triglycerides 496 mg/dL (35-160) H 10/27/16 09:10 Cholesterol 226 mg/dL (130-200) H 10/27/16 09:10 LDL Cholesterol Direct 70 mg/dL (0-129) 10/27/16 09:10 HDL Cholesterol 24 mg/dL (29-60) L 10/27/16 09:10 Urine Color Yellow (YELLOW) 10/27/16 11:55 Urine Appearance Cloudy (CLEAR) 10/27/16 11:55 Urine pH 6.0 (4.7-8.0) 10/27/16 11:55 Ur Specific [place] 1.020 (1.005-1.035) 10/27/16 11:55 Urine Protein 100 mg/dL (<30 mg/dL) H 10/27/16 11:55 Urine Glucose (UA) Negative mg/dL (NEGATIVE) 10/27/16 11:55 Urine Ketones Negative mg/dL (NEGATIVE) 10/27/16 11:55 Urine Blood Large (NEGATIVE) H 10/27/16 11:55 Urine Nitrate Negative (NEGATIVE) 10/27/16 11:55 Urine Bilirubin Negative (NEGATIVE) 10/27/16 11:55 Urine Urobilinogen 0.2 E.U./dL (<1 E.U./dL) 10/27/16 11:55 Ur Leukocyte Esterase Trace Nikolay/uL (NEGATIVE) H 10/27/16 11:55 Urine RBC 5 - 10 /hpf (0-2) 10/27/16 11:55 Urine WBC 10 - 15 /hpf (0-6) 10/27/16 11:55 Ur Epithelial Cells 10 - 12 /hpf (0-5) 10/27/16 11:55 Urine Bacteria Many (NEG) 10/27/16 11:55 Stool Occult Blood Negative (NEGATIVE) 10/27/16 22:00 Blood Type A POSITIVE 10/27/16 10:40 Antibody Screen Negative 10/27/16 10:40 Crossmatch See Detail 10/27/16 10:40 BBK History Checked Patient has bt 10/27/16 10:40 - Constitutional Appears: Well, No Acute Distress - Head Exam Head Exam: ATRAUMATIC, NORMAL INSPECTION, NORMOCEPHALIC - Eye Exam Eye Exam: Normal appearance - ENT Exam ENT Exam: Normal External Ear Exam - Neck Exam Neck Exam: Normal Inspection - Respiratory Exam Respiratory Exam: NORMAL BREATHING PATTERN - Cardiovascular Exam Cardiovascular Exam: absent: JVD - GI/Abdominal Exam GI & Abdominal Exam: absent: Distended - Rectal Exam Rectal Exam: Deferred - Exam Additional comments: Above deferred. - Extremities Exam Extremities Exam: Normal Inspection - Back Exam Back Exam: NORMAL INSPECTION - Neurological Exam Neurological Exam: Alert, Oriented x3 - Psychiatric Exam Psychiatric exam: Normal Affect, Normal Mood - Skin Skin Exam: Normal Color Assessment and Plan - Assessment and Plan (Free Text) Assessment: Hyperglycemia. IDDM. HTN. Morbid obesity. CAD. CHF. COPD. Depression. Plan: Continue Xopenex prn as ordered. Regular insulin 6 Units SC now. Continue present management. PMD will order more insulin.
[2016-10-28] MEDS: Sodium Chloride 0.9% 1,000 ML IV SCH (04:47)
[2016-10-28 07:25] LABS: BASO # 0.04 K/mm3 (0.0-2.0); BASO % 0.3 % (0.0-3.0); EOS # 0.1 (0.0-0.7); EOS % 0.6 % (1.5-5.0); GRAN # 9.99 (1.4-6.5); GRAN % 83.1 % (50.0-68.0); HEMOGLOBIN 8.5 gm/dL (12.0-16.0); LYMPH # 0.9 (1.2-3.4); LYMPH % 7.4 % (22.0-35.0); MEAN CELL VOLUME 88.6 fL (80.0-105.0); MEAN CORPUSCULAR HEMOGLOBIN 29.4 pg (25.0-35.0); MEAN CORPUSCULAR HGB CONC 33.2 g/dl (31.0-37.0); MEAN PLATELET VOLUME 11.7 fl (7.0-11.0); MONO % 8.6 % (1.0-6.0); PLATELET COUNT 248 10^3/uL (120.0-450.0); RBC 2.89 10^6/uL (3.5-6.1); RED CELL DISTRIBUTION WIDTH 17.5 % (11.5-14.5)
[2016-10-28 07:44] LABS: % IRON SATURATION 7 % (20-55); ALB/GLOB RATIO 1.1 (1.1-1.8); ALBUMIN 3.9 g/dL (3.0-4.8); CALCIUM 9.1 mg/dL (8.4-10.5); IRON 20 ug/dL (45-180); MAGNESIUM 2.1 mg/dL (1.7-2.2); TOTAL IRON BINDING CAPACITY 280 ug/dL (265-497)
[2016-10-28 07:58] LABS: FREE T4 0.54 ng/dL (0.78-2.19)
[2016-10-28] MEDS ORDERED: Potassium Chloride 20 mEq/15 ml LIQ UD PO STA (08:09)
[2016-10-28] MEDS ORDERED: Potassium Chloride 10 mEq 100 ML IVPB SCH (08:15)
[2016-10-28] MEDS ORDERED: Azithromycin 500MG/NS 250ml 250 ML IVPB SCH (10:00)
[2016-10-28] MEDS ORDERED: cefTRIAXone 1 gm 100 ML IVPB SCH (10:00)
--- NOTE | 2016-10-28 10:07 | CP.PCM.PN ---
Subjective - Date & Time of Evaluation Date of Evaluation: 10/28/16 Time of Evaluation: 09:30 - Subjective Subjective: Feels a little better C/o dry mouth C/o cough PE: Vital: reviewed HEENT: NC/AT Neck: Supple, No JVD Lungs: B/l Rhonchi, prolonged expiration, cracles L base CVS: S1S2 RRR Abdomen: Distended, NT, BS+, NO Masses ?? Ascitis Ext: No odema Labs :reviewed Meds: reviewed A/P JAMIL, Prerenal azotemia 2/2 to Lasix + Metolozone Dehydration Depletional hyponatremia suspect Contraction alkalosis NIDDM- uncontrolled Neuropathy Hematuria/Proteinuria Severe Anemia, ??? etiology Severe Hypokalemia IVF, NS at 80cc/hr, Add 20meq KCL KCL 20meq x2 Strict I/O Hold Diuretics Hold Metformin Tight glycemic control Check urine c/s Monitor electrolytes closely Abdominal imaging: increased girth w/u for proteinuria, although diabetic nephropathy suspect [id number] all reviewed, unchanged Objective - Vital Signs/Intake and Output Vital Signs (last 24 hours): Temp Pulse Resp BP Pulse Ox 98.7 F 68 18 125/61 95 10/28/16 06:00 10/28/16 06:00 10/28/16 06:00 10/28/16 06:00 10/28/16 06:00 Intake and Output: 10/28/16 10/28/16 06:59 18:59 Intake Total 1440 Output Total 1102 Balance 338 - Medications Medications: Current Medications Acetaminophen (Tylenol 325mg Tab) 650 mg PO Q6H PRN PRN Reason: Fever >100.4 F Alprazolam (Xanax) 1 mg PO TID PRN PRN Reason: Anxiety Atorvastatin Calcium (Lipitor) 20 mg PO DAILY [facility] Carvedilol (Coreg) 6.25 mg PO BID [facility] Last Admin: 10/27/16 16:59 Dose: 6.25 mg Clopidogrel Bisulfate (Plavix) 75 mg PO DAILY [facility] Last Admin: 10/27/16 11:58 Dose: 75 mg Gabapentin (Neurontin) 100 mg PO QID [facility] PRN Reason: Protocol Last Admin: 10/27/16 21:31 Dose: 100 mg Azithromycin (Zithromax 500mg In Ns) 500 mg in 250 mls @ 167 mls/hr IVPB DAILY [facility] PRN Reason: Protocol Ceftriaxone Sodium (Rocephin 1 Gram Ivpb) 1 gm in 100 mls @ 100 mls/hr IVPB DAILY [facility] PRN Reason: Protocol Iron Sucrose 200 mg/ Sodium (Chloride) 110 mls @ 110 mls/hr IVPB DAILY [facility] Stop: 11/01/16 10:59 Potassium Chloride (Potassium Chloride 20 Meq/100 Ml) 20 meq in 100 mls @ 50 mls/hr IVPB Q2H [facility] Stop: 10/28/16 12:14 Potassium Chloride 20 meq/ (Sodium Chloride) 1,010 mls @ 80 mls/hr IV .[id number] [facility] Insulin Human Regular (Humulin R High) 0 units SC ACHS [facility] PRN Reason: Protocol Last Admin: 10/27/16 21:32 Dose: 3 units Lactobacillus Acidophilus (Bacid Acidophilus) 1 cap PO DAILY [facility] Last Admin: 10/27/16 12:01 Dose: 1 cap Levalbuterol HCl (Xopenex) 1.25 mg IH [id number] [facility] Last Admin: 10/28/16 07:14 Dose: 1.25 mg Non-Formulary Medication (Fluvoxamine [Luvox]) 50 mg PO BID [facility] Last Admin: 10/27/16 17:31 Dose: Not Given Ondansetron HCl (Zofran Inj) 4 mg IVP Q6H PRN PRN Reason: Nausea/Vomiting Pantoprazole Sodium (Protonix Ec Tab) 40 mg PO ACB [facility] Last Admin: 10/27/16 11:58 Dose: 40 mg Promethazine HCl/Codeine (Phenergan/Codeine Oral Syrup) 5 ml PO Q6H PRN PRN Reason: Cough and congestion Quetiapine Fumarate (Seroquel) 100 mg PO [facility] PRN Reason: Protocol Last Admin: 10/27/16 21:31 Dose: 100 mg - Labs Labs: 10/28/16 07:20 10/28/16 07:22
[2016-10-28] MEDS: Insulin Reg-HIGH-Coverage SC SCH ×4 (11:19→23:10)
--- NOTE | 2016-10-28 11:26 | US ---
HISTORY: ascitis, sven COMPARISON: None. TECHNIQUE: Sonographic evaluation of the abdomen. FINDINGS: LIVER: Measures 15.5 x 15.4 cm. Increased echogenicity of the liver parenchyma. No mass. No intrahepatic bile duct dilatation. GALLBLADDER: Gallstones and sludge in the gallbladder. Gallbladder wall thickening measuring 2.8 mm. No focal tenderness COMMON BILE DUCT: Measures 3.2 mm. No stones. No dilatation. PANCREAS: Unremarkable as visualized. No mass. No ductal dilatation. RIGHT KIDNEY: Measures 11.66 x 5.53 x 5.88cm. Normal echogenicity. No calculus, mass, or hydronephrosis. LEFT KIDNEY: Measures 11.42 x 6.32 x 5.63cm. Normal echogenicity. No calculus, mass, or hydronephrosis. SPLEEN: Normal in size and contour. No mass. 12.12 x 4.81 AORTA: No aneurysmal dilatation. IVC: Unremarkable. OTHER FINDINGS: None. IMPRESSION: Gallstones and gallbladder sludge with mild thickening of the wall. Fatty infiltration of the liver
[2016-10-28] MEDS: cefTRIAXone 1 gm 1 GM/100 ML BAG IVPB SCH (11:45)
[2016-10-28] MEDS: Promethazine/Cod 6.25mg-10mg/5ml Syr UD PO PRN (11:46)
[2016-10-28] MEDS: Azithromycin 500MG/NS 250ml 500 MG/250 ML BAG IVPB SCH (12:04)
[2016-10-28] MEDS: FLUVOXAMINE 50 MG PO SCH ×2 (12:06→17:29)
[2016-10-28] MEDS: Insulin Detemir 100 units/ml Vial (Levemir) SC SCH ×2 (12:37→17:50)
[2016-10-28 15:13] LABS: COMPLEMENT C4 37.2 mg/dL (14.0-44.0)
[2016-10-28] MEDS: Insulin Lispro (humaLOG) MIX 75/25(10 ml) SC SCH (17:09)
[2016-10-29] MEDS: Levalbuterol 1.25 MG/3 ML Inhal Soln UD IH SCH ×4 (01:29→20:30)
[2016-10-29] MEDS: Insulin Lispro (humaLOG) MIX 75/25(10 ml) SC SCH ×2 (07:55→17:29)
[2016-10-29] MEDS: Insulin Reg-HIGH-Coverage SC SCH ×4 (07:55→22:31)
[2016-10-29] MEDS: Pantoprazole 40 mg EC Tab PO SCH (07:56)
[2016-10-29 08:27] LABS: CALCIUM 10.2 mg/dL (8.4-10.5); MAGNESIUM 2.1 mg/dL (1.7-2.2)
[2016-10-29] MEDS: Lactobacillus Acidophilus 500 MU Cap PO SCH (09:21)
[2016-10-29] MEDS: FLUVOXAMINE 50 MG PO SCH ×2 (09:27→17:32)
[2016-10-29] MEDS: Insulin Detemir 100 units/ml Vial (Levemir) SC SCH ×2 (09:27→17:30)
[2016-10-29] MEDS: cefTRIAXone 1 gm 1 GM/100 ML BAG IVPB SCH (09:30)
[2016-10-29] MEDS: Azithromycin 500MG/NS 250ml 500 MG/250 ML BAG IVPB SCH (09:30)
[2016-10-29] MEDS: Promethazine/Cod 6.25mg-10mg/5ml Syr UD PO PRN (09:33)
[2016-10-29] MEDS ORDERED: Potassium Chloride 20 MEQ in Sodium Chloride 0.45% 1,000 ML IV SCH (10:24)
[2016-10-29] MEDS: Potassium Chloride 20 MEQ in Sodium Chloride 0.45% 1,000 ML IV SCH ×2 (11:55→23:53)
[2016-10-30] MEDS: Levalbuterol 1.25 MG/3 ML Inhal Soln UD IH SCH ×3 (02:30→13:30)
[2016-10-30 06:48] VITALS: O2SAT 95
[2016-10-30 07:38] LABS: HEMOGLOBIN 9.1 gm/dL (12.0-16.0); MEAN CELL VOLUME 90.9 fL (80.0-105.0); MEAN CORPUSCULAR HEMOGLOBIN 28.5 pg (25.0-35.0); MEAN CORPUSCULAR HGB CONC 31.4 g/dl (31.0-37.0); MEAN PLATELET VOLUME 11.6 fl (7.0-11.0); RBC 3.19 10^6/uL (3.5-6.1); RED CELL DISTRIBUTION WIDTH 18.1 % (11.5-14.5); WHITE BLOOD COUNT 10.1 10^3/ul (4.5-11.0)
[2016-10-30 07:54] LABS: ALB/GLOB RATIO 0.9 (1.1-1.8); ALBUMIN 3.7 g/dL (3.0-4.8); CALCIUM 10.2 mg/dL (8.4-10.5)
[2016-10-30] MEDS: Insulin Reg-HIGH-Coverage SC SCH ×2 (08:16→12:11)
[2016-10-30] MEDS: Pantoprazole 40 mg EC Tab PO SCH (08:16)
[2016-10-30] MEDS: Insulin Lispro (humaLOG) MIX 75/25(10 ml) SC SCH (08:17)
[2016-10-30] MEDS: Potassium Chloride 20 MEQ in Sodium Chloride 0.45% 1,000 ML IV SCH ×2 (08:18→12:30)
[2016-10-30] MEDS: Lactobacillus Acidophilus 500 MU Cap PO SCH (11:04)
[2016-10-30] MEDS: Insulin Detemir 100 units/ml Vial (Levemir) SC SCH (11:05)
[2016-10-30] MEDS: FLUVOXAMINE 50 MG PO SCH (11:05)
[2016-10-30] MEDS: cefTRIAXone 1 gm 1 GM/100 ML BAG IVPB SCH (11:07)
[2016-10-30] MEDS ORDERED: Insulin Lispro (humaLOG) MIX 75/25(10 ml) SC SCH (12:17)
[2016-10-30] MEDS ORDERED: Insulin Detemir 100 units/ml Vial (Levemir) SC SCH (12:18)
--- NOTE | 2016-10-30 13:06 | CP.PCM.PN ---
Subjective - Date & Time of Evaluation Date of Evaluation: 10/30/16 Time of Evaluation: 10:15 - Subjective Subjective: Feels a little better PE: Vital: reviewed HEENT: NC/AT Neck: Supple, No JVD Lungs: B/l Rhonchi, prolonged expiration, cracles L base CVS: S1S2 RRR Abdomen: Distended, NT, BS+, NO Masses ?? Ascitis Ext: No odema Labs :reviewed Meds: reviewed A/P JAMIL, Prerenal azotemia 2/2 to Lasix + Metolozone- Resolving Dehydration Depletional hyponatremia suspect Contraction alkalosis NIDDM- uncontrolled Neuropathy Hematuria/Proteinuria Severe Anemia, ??? etiology Severe Hypokalemia D/c IVF Po KCl Strict I/O Hold Diuretics Hold Metformin, can restart tomorrow Tight glycemic control Check urine c/s Monitor electrolytes closely Abdominal imaging: increased girth, No Ascitis w/u for proteinuria, although diabetic nephropathy suspect Objective - Vital Signs/Intake and Output Vital Signs (last 24 hours): Temp Pulse Resp BP Pulse Ox 98.2 F 86 20 137/75 95 10/30/16 06:00 10/30/16 11:04 10/30/16 06:00 10/30/16 11:04 10/30/16 06:00 Intake and Output: 10/30/16 10/30/16 06:59 18:59 Intake Total 960 Output Total 800 Balance 160 - Medications Medications: Current Medications Acetaminophen (Tylenol 325mg Tab) 650 mg PO Q6H PRN PRN Reason: Fever >100.4 F Acetaminophen (Tylenol 325mg Tab) 650 mg PO Q4H PRN PRN Reason: Pain, Mild (1-3) Alprazolam (Xanax) 1 mg PO TID PRN PRN Reason: Anxiety Atorvastatin Calcium (Lipitor) 20 mg PO DAILY [facility] Last Admin: 10/30/16 11:06 Dose: 20 mg Carvedilol (Coreg) 6.25 mg PO BID [facility] Last Admin: 10/30/16 11:04 Dose: 6.25 mg Clopidogrel Bisulfate (Plavix) 75 mg PO DAILY [facility] Last Admin: 10/30/16 11:06 Dose: 75 mg Gabapentin (Neurontin) 100 mg PO QID [facility] PRN Reason: Protocol Last Admin: 10/30/16 11:06 Dose: 100 mg Azithromycin (Zithromax 500mg In Ns) 500 mg in 250 mls @ 167 mls/hr IVPB DAILY [facility] PRN Reason: Protocol Last Admin: 10/29/16 09:30 Dose: 167 mls/hr Ceftriaxone Sodium (Rocephin 1 Gram Ivpb) 1 gm in 100 mls @ 100 mls/hr IVPB DAILY [facility] PRN Reason: Protocol Last Admin: 10/30/16 11:07 Dose: 100 mls/hr Iron Sucrose 200 mg/ Sodium (Chloride) 110 mls @ 110 mls/hr IVPB DAILY [facility] Stop: 11/01/16 10:59 Last Admin: 10/30/16 12:12 Dose: 110 mls/hr Insulin Detemir (Levemir) 40 unit SC BID [facility] Insulin Human Regular (Humulin R High) 0 units SC ACHS [facility] PRN Reason: Protocol Last Admin: 10/30/16 12:11 Dose: 10 units Insulin Lispro Protam/Lispro Human (Humalog Mix 75/25) 35 units SC ACBD [facility] Lactobacillus Acidophilus (Bacid Acidophilus) 1 cap PO DAILY [facility] Last Admin: 10/30/16 11:04 Dose: 1 cap Levalbuterol HCl (Xopenex) 1.25 mg IH [id number] [facility] Last Admin: 10/30/16 07:52 Dose: 1.25 mg Non-Formulary Medication (Fluvoxamine [Luvox]) 50 mg PO BID [facility] Last Admin: 10/30/16 11:05 Dose: Not Given Ondansetron HCl (Zofran Inj) 4 mg IVP Q6H PRN PRN Reason: Nausea/Vomiting Pantoprazole Sodium (Protonix Ec Tab) 40 mg PO ACB [facility] Last Admin: 10/30/16 08:16 Dose: 40 mg Potassium Chloride (Klor-Con 10) 20 meq PO BID [facility] Promethazine HCl/Codeine (Phenergan/Codeine Oral Syrup) 5 ml PO Q6H PRN PRN Reason: Cough and congestion Last Admin: 10/29/16 09:33 Dose: 5 ml Quetiapine Fumarate (Seroquel) 100 mg PO HS [facility] PRN Reason: Protocol Last Admin: 10/29/16 22:34 Dose: 100 mg - Labs Labs: 10/30/16 07:00 10/30/16 07:00
[2016-10-30] MEDS: Azithromycin 500MG/NS 250ml 500 MG/250 ML BAG IVPB SCH (13:53)
[2016-10-30 15:22] VITALS: BP 143/78; RESP 21; TEMP 98.1
[2016-10-30 16:06] VITALS: PULSE 82
--- NOTE | 2016-10-30 16:29 | CP.PCM.PN ---
Subjective - Date & Time of Evaluation Date of Evaluation: 10/30/16 Time of Evaluation: 08:30 - Subjective Subjective: Denies Chest pain, SOB. Objective - Vital Signs/Intake and Output Vital Signs (last 24 hours): Temp Pulse Resp BP Pulse Ox 98.1 F 82 21 143/78 95 10/30/16 12:00 10/30/16 14:00 10/30/16 12:00 10/30/16 12:00 10/30/16 06:00 Intake and Output: 10/30/16 10/30/16 06:59 18:59 Intake Total 960 Output Total 800 Balance 160 - Medications Medications: Current Medications Acetaminophen (Tylenol 325mg Tab) 650 mg PO Q6H PRN PRN Reason: Fever >100.4 F Acetaminophen (Tylenol 325mg Tab) 650 mg PO Q4H PRN PRN Reason: Pain, Mild (1-3) Alprazolam (Xanax) 1 mg PO TID PRN PRN Reason: Anxiety Atorvastatin Calcium (Lipitor) 20 mg PO DAILY [facility] Last Admin: 10/30/16 11:06 Dose: 20 mg Carvedilol (Coreg) 6.25 mg PO BID [facility] Last Admin: 10/30/16 11:04 Dose: 6.25 mg Clopidogrel Bisulfate (Plavix) 75 mg PO DAILY [facility] Last Admin: 10/30/16 11:06 Dose: 75 mg Gabapentin (Neurontin) 300 mg PO BID [facility] PRN Reason: Protocol Azithromycin (Zithromax 500mg In Ns) 500 mg in 250 mls @ 167 mls/hr IVPB DAILY [facility] PRN Reason: Protocol Last Admin: 10/30/16 13:53 Dose: 167 mls/hr Ceftriaxone Sodium (Rocephin 1 Gram Ivpb) 1 gm in 100 mls @ 100 mls/hr IVPB DAILY [facility] PRN Reason: Protocol Last Admin: 10/30/16 11:07 Dose: 100 mls/hr Iron Sucrose 200 mg/ Sodium (Chloride) 110 mls @ 110 mls/hr IVPB DAILY [facility] Stop: 11/01/16 10:59 Last Admin: 10/30/16 12:12 Dose: 110 mls/hr Insulin Detemir (Levemir) 40 unit SC BID [facility] Insulin Human Regular (Humulin R High) 0 units SC ACHS [facility] PRN Reason: Protocol Last Admin: 10/30/16 12:11 Dose: 10 units Insulin Lispro Protam/Lispro Human (Humalog Mix 75/25) 35 units SC ACBD [facility] Lactobacillus Acidophilus (Bacid Acidophilus) 1 cap PO DAILY [facility] Last Admin: 10/30/16 11:04 Dose: 1 cap Levalbuterol HCl (Xopenex) 1.25 mg IH [id number] [facility] Last Admin: 10/30/16 13:30 Dose: 1.25 mg Non-Formulary Medication (Fluvoxamine [Luvox]) 50 mg PO BID [facility] Last Admin: 10/30/16 11:05 Dose: Not Given Ondansetron HCl (Zofran Inj) 4 mg IVP Q6H PRN PRN Reason: Nausea/Vomiting Pantoprazole Sodium (Protonix Ec Tab) 40 mg PO ACB [facility] Last Admin: 10/30/16 08:16 Dose: 40 mg Potassium Chloride (Klor-Con 10) 20 meq PO BID [facility] Promethazine HCl/Codeine (Phenergan/Codeine Oral Syrup) 5 ml PO Q6H PRN PRN Reason: Cough and congestion Last Admin: 10/29/16 09:33 Dose: 5 ml Quetiapine Fumarate (Seroquel) 100 mg PO HS [facility] PRN Reason: Protocol Last Admin: 10/29/16 22:34 Dose: 100 mg - Labs Labs: 10/30/16 07:00 10/30/16 07:00 - Constitutional Appears: Non-toxic - Head Exam Head Exam: ATRAUMATIC - Eye Exam Eye Exam: Conjunctival injection - ENT Exam ENT Exam: Mucous Membranes Dry - Neck Exam Neck Exam: Full ROM - Respiratory Exam Respiratory Exam: Clear to Ausculation Bilateral - Cardiovascular Exam Cardiovascular Exam: REGULAR RHYTHM - GI/Abdominal Exam GI & Abdominal Exam: Soft Assessment and Plan - Assessment and Plan (Free Text) Assessment: 56 year old femal with hx of PTCA AD ..2010 recet stress test ok recent echo EF-55%, trace MR/Tr Improved CMP...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 on iron supplement, Etiology..?? admitted with also pneumonia ..improving on Iron supplement T2Dm Plan: Continue iron supplement continue ASA/ PLAVIX/ statin Dc telemetry. CV status ok.
[2016-10-30] MEDS ORDERED: Potassium Chloride 10 mEq ER Tab PO SCH (18:00)
[2016-10-31 08:26] LABS: ALBUMIN (PEP) 3.1 g/dL (3.8-4.8); ALPHA-1-GLOBULIN (PEP) 0.7 g/dL (0.2-0.3)
== END 2016-10-30 16:05 | DRG 682 ==
LOC: ED 08:23 → ERH 10:02 → 2RNO 12:35
PROVIDERS: ADMIT Internal Medicine; ATTEND Internal Medicine
PROC: 30233N1 Transfusion of Nonautologous Red Blood Cells into Peripheral Vein, Percutaneous Approach (ICD-10-PCS; principal; 2016-10-27)
DX: N17.9 Acute kidney failure, unspecified (principal); J18.9 Pneumonia, unspecified organism; I40.0 Infective myocarditis; E87.3 Alkalosis; I42.9 Cardiomyopathy, unspecified; J44.0 Chronic obstructive pulmonary disease with (acute) lower respiratory infection; I11.0 Hypertensive heart disease with heart failure; I50.9 Heart failure, unspecified; E66.01 Morbid (severe) obesity due to excess calories; E11.40 Type 2 diabetes mellitus with diabetic neuropathy, unspecified; E86.0 Dehydration; D50.9 Iron deficiency anemia, unspecified; M19.90 Unspecified osteoarthritis, unspecified site; I25.10 Atherosclerotic heart disease of native coronary artery without angina pectoris; E11.65 Type 2 diabetes mellitus with hyperglycemia; E87.6 Hypokalemia; F32.9 Major depressive disorder, single episode, unspecified; R31.9 Hematuria, unspecified; G25.81 Restless legs syndrome; M79.7 Fibromyalgia; Z79.4 Long term (current) use of insulin; Z95.5 Presence of coronary angioplasty implant and graft; Z99.81 Dependence on supplemental oxygen; Z68.29 Body mass index [BMI] 29.0-29.9, adult

== ENCOUNTER 2016-10-30 16:05 | Inpatient (IN) | payer OTHER ==
[2016-10-30 18:54] VITALS: BMI 30.7
[2016-10-30] MEDS: FLUVOXAMINE 50 MG PO SCH (18:59)
[2016-10-30] MEDS: Insulin Detemir 100 units/ml Vial (Levemir) SC SCH (22:18)
[2016-10-30] MEDS: Levalbuterol 1.25 MG/3 ML Inhal Soln UD IH PRN (23:35)
[2016-10-31] MEDS: cefTRIAXone 1 gm 1 GM/100 ML BAG IVPB SCH ×2 (05:56→10:35)
[2016-10-31] MEDS: Insulin Reg-HIGH-Coverage SC SCH ×5 (06:44→22:13)
[2016-10-31] MEDS: Insulin Lispro (humaLOG) MIX 75/25(10 ml) SC SCH ×3 (06:46→17:30)
[2016-10-31] MEDS: Insulin Detemir 100 units/ml Vial (Levemir) SC SCH ×2 (06:49→22:14)
[2016-10-31] MEDS: Pantoprazole 40 mg EC Tab PO SCH (06:50)
[2016-10-31 07:29] LABS: BASO # 0.09 K/mm3 (0.0-2.0); BASO % 0.8 % (0.0-3.0); EOS # 0.5 (0.0-0.7); EOS % 4.7 % (1.5-5.0); GRAN # 7.87 (1.4-6.5); HEMOGLOBIN 9.6 gm/dL (12.0-16.0); LYMPH # 1.5 (1.2-3.4); LYMPH % 13.5 % (22.0-35.0); MEAN CELL VOLUME 91.1 fL (80.0-105.0); MEAN CORPUSCULAR HEMOGLOBIN 28.5 pg (25.0-35.0); MEAN CORPUSCULAR HGB CONC 31.3 g/dl (31.0-37.0); PLATELET COUNT 414 10^3/uL (120.0-450.0); RBC 3.37 10^6/uL (3.5-6.1); RED CELL DISTRIBUTION WIDTH 18.1 % (11.5-14.5); WHITE BLOOD COUNT 10.9 10^3/ul (4.5-11.0)
[2016-10-31 07:45] LABS: ALB/GLOB RATIO 0.9 (1.1-1.8); ALBUMIN 3.8 g/dL (3.0-4.8); CALCIUM 10.4 mg/dL (8.4-10.5)
[2016-10-31] MEDS: Azithromycin 500MG/NS 250ml 500 MG/250 ML BAG IVPB SCH ×2 (07:48→10:35)
[2016-10-31] MEDS ORDERED: Potassium Chloride 20 mEq ER Tab PO STA (09:06)
--- NOTE | 2016-10-31 10:08 | CP.PCM.CON ---
History of Present Illness - History of Present Illness History of Present Illness: Reason for consultation: Hypokalemia HPI: A 56 year old female, whose past medical history includes anemia, arthritis , COPD on home oxygen as needed, diabetes and CHF, was initially admitted complaining of generalized fatigue. Patient reported her legs feel weak and she "can not walk." She said when laying down she is able to move all four of her extremities without difficulty. She denied any bowel/bladder incontinence, chest pain, shortness of breath, back pain. Her symptoms were secondary to a new medication she was started on . She was started on Metolozone BIW by Dr Hartley. She was hydrated. She is now in TCU. Consult is requested for Hypokalemia. FHx: NC SHx: No smoking, no alcohol, no IVDA All: NKDA Review of Systems - Review of Systems All systems: reviewed and no additional remarkable complaints except Review of Systems: mild fatigue Past Patient History - Infectious Disease Hx of Infectious Diseases: None - Tetanus Immunizations Tetanus Immunization: Unknown - Past Medical History & Family History Past Medical History?: Yes - Past Social History Smoking Status: Never Smoked - CARDIAC Hx Cardiac Disorders: Yes Hx Congestive Heart Failure: Yes Hx Hypertension: No - PULMONARY Hx Chronic Obstructive Pulmonary Disease (COPD): Yes - NEUROLOGICAL Hx Neurological Disorder: Yes Hx Dizziness: Yes Other/Comment: Restless leg syndrome. Fibromyalgia - HEENT Hx HEENT Problems: Yes Hx Epistaxis: Yes - RENAL Hx Chronic Kidney Disease: Yes Hx Kidney Stones: Yes - ENDOCRINE/METABOLIC Hx Diabetes Mellitus Type 2: Yes - HEMATOLOGICAL/ONCOLOGICAL Hx Blood Disorders: Yes Hx Anemia: Yes - INTEGUMENTARY Hx Dermatological Problems: Yes - MUSCULOSKELETAL/RHEUMATOLOGICAL Hx Falls: Yes - GASTROINTESTINAL Hx Gastrointestinal Disorders: Yes - GENITOURINARY/GYNECOLOGICAL Hx Reproductive Disorders: No - PSYCHIATRIC Hx Psychophysiologic Disorder: Yes Hx Anxiety: Yes Hx Depression: Yes Hx Emotional Abuse: No Hx Physical Abuse: No Hx Substance Use: No - SURGICAL HISTORY Hx Appendectomy: Yes Hx Cardiac Catheterization: Yes Hx Coronary Stent: Yes Other/Comment: Abd lap W R oophorectomy & partial L oophrectomy. c section, I & D cellulitis both legs, bilateral axilla, - ANESTHESIA Hx Anesthesia: Yes Hx Anesthesia Reactions: No Hx Malignant Hyperthermia: No Meds Allergies/Adverse Reactions: Allergies Allergy/AdvReac Type Severity Reaction Status Date / Time theophylline Allergy NAUSEA Verified 10/30/16 17:54 - Medications Medications: Current Medications Acetaminophen (Tylenol 325mg Tab) 650 mg PO Q6H PRN; Protocol PRN Reason: Fever >100.4 F Acetaminophen (Tylenol 325mg Tab) 650 mg PO Q4H PRN; Protocol PRN Reason: Pain, Mild (1-3) Alprazolam (Xanax) 1 mg PO TID PRN; Protocol PRN Reason: Anxiety Atorvastatin Calcium (Lipitor) 20 mg PO DAILY [facility] Carvedilol (Coreg) 6.25 mg PO BID [facility] PRN Reason: Protocol Last Admin: 10/30/16 18:54 Dose: 6.25 mg Clopidogrel Bisulfate (Plavix) 75 mg PO DAILY [facility] Gabapentin (Neurontin) 300 mg PO BID [facility] PRN Reason: Protocol Last Admin: 10/30/16 18:56 Dose: 300 mg Iron Sucrose 200 mg/ Sodium (Chloride) 110 mls @ 110 mls/hr IVPB DAILY [facility] PRN Reason: Protocol Stop: 11/01/16 10:01 Ceftriaxone Sodium (Rocephin 1 Gram Ivpb) 1 gm in 100 mls @ 100 mls/hr IVPB DAILY [facility] PRN Reason: Protocol Last Admin: 10/31/16 05:56 Dose: 100 mls/hr Azithromycin (Zithromax 500mg In Ns) 500 mg in 250 mls @ 167 mls/hr IVPB DAILY [facility] PRN Reason: Protocol Last Admin: 10/31/16 07:48 Dose: 167 mls/hr Insulin Detemir (Levemir) 40 unit SC ACBHS [facility] Last Admin: 10/31/16 06:49 Dose: 40 unit Insulin Human Regular (Humulin R High) 0 units SC ACHS [facility] PRN Reason: Protocol Last Admin: 10/31/16 07:58 Dose: Not Given Insulin Lispro Protam/Lispro Human (Humalog Mix 75/25) 35 units SC ACBD [facility] PRN Reason: Protocol Last Admin: 10/31/16 07:58 Dose: Not Given Lactobacillus Acidophilus (Bacid Acidophilus) 1 cap PO DAILY [facility] Levalbuterol HCl (Xopenex) 1.25 mg IH [id number] PRN; Protocol PRN Reason: Shortness of Breath Last Admin: 10/30/16 23:35 Dose: 1.25 mg Non-Formulary Medication (Fluvoxamine [Luvox]) 50 mg PO BID [facility] Last Admin: 10/30/16 18:59 Dose: Not Given Ondansetron HCl (Zofran Inj) 4 mg IVP Q6H PRN; Protocol PRN Reason: Nausea/Vomiting Pantoprazole Sodium (Protonix Ec Tab) 40 mg PO 0600 [facility] PRN Reason: Protocol Last Admin: 10/31/16 06:50 Dose: 40 mg Promethazine HCl/Codeine (Phenergan/Codeine Oral Syrup) 5 ml PO Q6H PRN; Protocol PRN Reason: Cough and congestion Quetiapine Fumarate (Seroquel) 100 mg PO HS [facility] PRN Reason: Protocol Last Admin: 10/30/16 22:30 Dose: 100 mg Physical Exam - Constitutional Appears: Older Than Stated Age - Head Exam Head Exam: ATRAUMATIC, NORMAL INSPECTION, NORMOCEPHALIC - Eye Exam Eye Exam: Normal appearance, PERRL - ENT Exam ENT Exam: Mucous Membranes Moist - Respiratory Exam Respiratory Exam: Clear to Auscultation Bilateral, NORMAL BREATHING PATTERN - Cardiovascular Exam Cardiovascular Exam: REGULAR RHYTHM, +S2 - GI/Abdominal Exam GI & Abdominal Exam: Normal Bowel Sounds, Soft - Extremities Exam Extremities exam: Positive for: normal inspection - Neurological Exam Neurological exam: Alert, Oriented x3 Results - Vital Signs Recent Vital Signs: Last Vital Signs Temp Pulse 96 H 10/30/16 18:54 Resp BP 150/79 10/30/16 18:54 Pulse Ox - Labs Result Diagrams: 10/31/16 06:15 10/31/16 06:15 Labs: Laboratory Results - last 24 hr 10/30/16 10/31/16 10/31/16 21:47 06:15 06:15 WBC 10.9 RBC 3.37 L Hgb 9.6 L Hct 30.7 L MCV 91.1 MCH 28.5 MCHC 31.3 RDW 18.1 H Plt Count 414 MPV 12.0 H Gran % 72.0 H Lymph % (Auto) 13.5 L Bell % (Auto) 9.0 H Eos % (Auto) 4.7 Baso % (Auto) 0.8 Gran # 7.87 H Lymph # 1.5 Bell # 1.0 H Eos # 0.5 Baso # 0.09 Sodium 146 Potassium 3.1 L Chloride 104 Carbon Dioxide 29 Anion Gap 16 BUN 50 H Creatinine 1.4 Est GFR ( Amer) 47 Est GFR (Non-Af Amer) 39 POC Glucose (mg/dL) 296 H Random Glucose 184 H Calcium 10.4 Magnesium Total Bilirubin 0.5 AST 61 H ALT 36 Alkaline Phosphatase 107 Total Protein 8.0 Albumin 3.8 Globulin 4.2 Albumin/Globulin Ratio 0.9 L 10/31/16 06:30 WBC RBC Hgb Hct MCV MCH MCHC RDW Plt Count MPV Gran % Lymph % (Auto) Bell % (Auto) Eos % (Auto) Baso % (Auto) Gran # Lymph # Bell # Eos # Baso # Sodium Potassium Chloride Carbon Dioxide Anion Gap BUN Creatinine Est GFR ( Amer) Est GFR (Non-Af Amer) POC Glucose (mg/dL) Random Glucose Calcium Magnesium 1.8 Total Bilirubin AST ALT Alkaline Phosphatase Total Protein Albumin Globulin Albumin/Globulin Ratio Assessment & Plan - Assessment and Plan (Free Text) Assessment: NIDDM- uncontrolled Neuropathy Hematuria/Proteinuria Severe Anemia, ??? etiology Severe Hypokalemia Po KCl Strict I/O Hold Diuretics Tight glycemic control Monitor electrolytes closely Thank u for courtesy of this consultation - Date & Time Date: 10/31/16 Time: 09:30
[2016-10-31] MEDS: Lactobacillus Acidophilus 500 MU Cap PO SCH (11:05)
[2016-10-31] MEDS: FLUVOXAMINE 50 MG PO SCH ×2 (11:08→17:53)
[2016-10-31] MEDS: Levalbuterol 1.25 MG/3 ML Inhal Soln UD IH PRN ×2 (11:13→19:57)
--- NOTE | 2016-10-31 12:13 | CP.PCM.CON ---
History of Present Illness - History of Present Illness History of Present Illness: Reason for consult: continuity of Care in TCU 56 year old female with PMhx of CAD < S/p PTCA LAD 03/03/2013. T@ DM, Obesity, COPD on Home O2 off and On ch anemia on Iron infusion, who admitted with pneumonia, and sever anemia in acute medical floor now Tx to TCU , card Consult for F?u . pt denies chest pain ,SOB palpitation PMHX. T2DM HTN CAD S/p PTCA HTN. Obesity Copd off and on On Home O2 recent Cardiac W/u Echo-07/19/2016 Ef-55% trace MR/TR [id number] Mild to Moderate Stress test 07/19/2016, No ischemia.. no sarabia from 2013 Review of Systems - Review of Systems Systems not reviewed;Unavailable: Acuity of Condition - Constitutional Constitutional: As Per HPI - EENT Eyes: As Per HPI Ears: As Per HPI Nose/Mouth/Throat: As Per HPI - Breasts Breasts: As Per HPI - Cardiovascular Cardiovascular: As Per HPI - Respiratory Respiratory: As Per HPI - Gastrointestinal Gastrointestinal: As Per HPI Past Patient History - Infectious Disease Hx of Infectious Diseases: None - Tetanus Immunizations Tetanus Immunization: Unknown - Past Medical History & Family History Past Medical History?: Yes - Past Social History Smoking Status: Never Smoked - CARDIAC Hx Cardiac Disorders: Yes Hx Congestive Heart Failure: Yes Hx Hypertension: No - PULMONARY Hx Chronic Obstructive Pulmonary Disease (COPD): Yes - NEUROLOGICAL Hx Neurological Disorder: Yes Hx Dizziness: Yes Other/Comment: Restless leg syndrome. Fibromyalgia - HEENT Hx HEENT Problems: Yes Hx Epistaxis: Yes - RENAL Hx Chronic Kidney Disease: Yes Hx Kidney Stones: Yes - ENDOCRINE/METABOLIC Hx Diabetes Mellitus Type 2: Yes - HEMATOLOGICAL/ONCOLOGICAL Hx Blood Disorders: Yes Hx Anemia: Yes - INTEGUMENTARY Hx Dermatological Problems: Yes - MUSCULOSKELETAL/RHEUMATOLOGICAL Hx Falls: Yes - GASTROINTESTINAL Hx Gastrointestinal Disorders: Yes - GENITOURINARY/GYNECOLOGICAL Hx Reproductive Disorders: No - PSYCHIATRIC Hx Psychophysiologic Disorder: Yes Hx Anxiety: Yes Hx Depression: Yes Hx Emotional Abuse: No Hx Physical Abuse: No Hx Substance Use: No - SURGICAL HISTORY Hx Appendectomy: Yes Hx Cardiac Catheterization: Yes Hx Coronary Stent: Yes Other/Comment: Abd lap W R oophorectomy & partial L oophrectomy. c section, I & D cellulitis both legs, bilateral axilla, - ANESTHESIA Hx Anesthesia: Yes Hx Anesthesia Reactions: No Hx Malignant Hyperthermia: No Meds Allergies/Adverse Reactions: Allergies Allergy/AdvReac Type Severity Reaction Status Date / Time theophylline Allergy NAUSEA Verified 10/30/16 17:54 - Medications Medications: Current Medications Acetaminophen (Tylenol 325mg Tab) 650 mg PO Q6H PRN; Protocol PRN Reason: Fever >100.4 F Acetaminophen (Tylenol 325mg Tab) 650 mg PO Q4H PRN; Protocol PRN Reason: Pain, Mild (1-3) Alprazolam (Xanax) 1 mg PO TID PRN; Protocol PRN Reason: Anxiety Atorvastatin Calcium (Lipitor) 20 mg PO DAILY [facility] Last Admin: 10/31/16 11:06 Dose: 20 mg Carvedilol (Coreg) 6.25 mg PO BID [facility] PRN Reason: Protocol Last Admin: 10/31/16 11:07 Dose: 6.25 mg Clopidogrel Bisulfate (Plavix) 75 mg PO DAILY [facility] Last Admin: 10/31/16 11:06 Dose: 75 mg Gabapentin (Neurontin) 300 mg PO BID [facility] PRN Reason: Protocol Last Admin: 10/31/16 11:05 Dose: 300 mg Iron Sucrose 200 mg/ Sodium (Chloride) 110 mls @ 110 mls/hr IVPB DAILY [facility] PRN Reason: Protocol Stop: 11/01/16 10:01 Last Admin: 10/31/16 11:10 Dose: 110 mls/hr Ceftriaxone Sodium (Rocephin 1 Gram Ivpb) 1 gm in 100 mls @ 100 mls/hr IVPB DAILY [facility] PRN Reason: Protocol Last Admin: 10/31/16 10:35 Dose: Not Given Azithromycin (Zithromax 500mg In Ns) 500 mg in 250 mls @ 167 mls/hr IVPB DAILY [facility] PRN Reason: Protocol Last Admin: 10/31/16 10:35 Dose: Not Given Insulin Detemir (Levemir) 40 unit SC ACBHS [facility] Last Admin: 10/31/16 06:49 Dose: 40 unit Insulin Human Regular (Humulin R High) 0 units SC ACHS [facility] PRN Reason: Protocol Last Admin: 10/31/16 07:58 Dose: Not Given Insulin Lispro Protam/Lispro Human (Humalog Mix 75/25) 35 units SC ACBD [facility] PRN Reason: Protocol Last Admin: 10/31/16 07:58 Dose: Not Given Lactobacillus Acidophilus (Bacid Acidophilus) 1 cap PO DAILY [facility] Last Admin: 10/31/16 11:05 Dose: 1 cap Levalbuterol HCl (Xopenex) 1.25 mg IH [id number] PRN; Protocol PRN Reason: Shortness of Breath Last Admin: 10/31/16 11:13 Dose: 1.25 mg Non-Formulary Medication (Fluvoxamine [Luvox]) 50 mg PO BID [facility] Last Admin: 10/31/16 11:08 Dose: Not Given Ondansetron HCl (Zofran Inj) 4 mg IVP Q6H PRN; Protocol PRN Reason: Nausea/Vomiting Pantoprazole Sodium (Protonix Ec Tab) 40 mg PO 0600 [facility] PRN Reason: Protocol Last Admin: 10/31/16 06:50 Dose: 40 mg Promethazine HCl/Codeine (Phenergan/Codeine Oral Syrup) 5 ml PO Q6H PRN; Protocol PRN Reason: Cough and congestion Quetiapine Fumarate (Seroquel) 100 mg PO HS [facility] PRN Reason: Protocol Last Admin: 10/30/16 22:30 Dose: 100 mg Physical Exam - Constitutional Appears: Non-toxic - Eye Exam Eye Exam: Conjunctival injection - ENT Exam ENT Exam: Mucous Membranes Dry - Neck Exam Neck exam: Positive for: Full Rom - Respiratory Exam Respiratory Exam: Clear to Auscultation Bilateral - Cardiovascular Exam Cardiovascular Exam: REGULAR RHYTHM Results - Vital Signs Recent Vital Signs: Last Vital Signs Temp 98.3 F 10/31/16 10:00 Pulse 95 H 10/31/16 11:07 Resp 20 10/31/16 10:00 BP 133/73 10/31/16 11:07 Pulse Ox 100 10/31/16 10:00 - Labs Result Diagrams: 10/31/16 06:15 10/31/16 06:15 Labs: Laboratory Results - last 24 hr 10/30/16 10/31/16 10/31/16 21:47 04:56 06:15 WBC 10.9 RBC 3.37 L Hgb 9.6 L Hct 30.7 L MCV 91.1 MCH 28.5 MCHC 31.3 RDW 18.1 H Plt Count 414 MPV 12.0 H Gran % 72.0 H Lymph % (Auto) 13.5 L Hall % (Auto) 9.0 H Eos % (Auto) 4.7 Baso % (Auto) 0.8 Gran # 7.87 H Lymph # 1.5 Hall # 1.0 H Eos # 0.5 Baso # 0.09 Sodium Potassium Chloride Carbon Dioxide Anion Gap BUN Creatinine Est GFR ( Amer) Est GFR (Non-Af Amer) POC Glucose (mg/dL) 296 H 220 H Random Glucose Calcium Magnesium Total Bilirubin AST ALT Alkaline Phosphatase Total Protein Albumin Globulin Albumin/Globulin Ratio 10/31/16 10/31/16 06:15 06:30 WBC RBC Hgb Hct MCV MCH MCHC RDW Plt Count MPV Gran % Lymph % (Auto) Hall % (Auto) Eos % (Auto) Baso % (Auto) Gran # Lymph # Hall # Eos # Baso # Sodium 146 Potassium 3.1 L Chloride 104 Carbon Dioxide 29 Anion Gap 16 BUN 50 H Creatinine 1.4 Est GFR ( Amer) 47 Est GFR (Non-Af Amer) 39 POC Glucose (mg/dL) Random Glucose 184 H Calcium 10.4 Magnesium 1.8 Total Bilirubin 0.5 AST 61 H ALT 36 Alkaline Phosphatase 107 Total Protein 8.0 Albumin 3.8 Globulin 4.2 Albumin/Globulin Ratio 0.9 L Assessment & Plan - Assessment and Plan (Free Text) Assessment: 56 year old female with pmhx of CAD s/p PTCA in 2012 then multipkle negative stress rest admitted with pneumonia severe Anemia to acute medical floor now tx to TCU. CAD as above Mild to nmoderate Asd s/p pneumonia T2DM HTN Obesity COPD on Home O2 off and On Mild to moderate As TR/MR ASnemia etiology ?? on IV iron at home Plan: continue ASa/plavix coreg/satin supplement k dur no anginal symptoms. - Date & Time Date: 10/31/16 Time: 10:45
[2016-10-31 14:36] LABS: CREATININE,RANDOM URINE 51 mg/dL; TOTAL PROTEIN,RANDOM URINE 175 mg/L
[2016-10-31] MEDS ORDERED: Potassium Chloride 20 mEq ER Tab PO ONE ×2 (16:00→18:18)
[2016-11-01] MEDS: Pantoprazole 40 mg EC Tab PO SCH (05:44)
[2016-11-01] MEDS: Insulin Reg-HIGH-Coverage SC SCH ×4 (06:34→22:04)
[2016-11-01] MEDS: Insulin Lispro (humaLOG) MIX 75/25(10 ml) SC SCH ×2 (06:36→17:08)
[2016-11-01] MEDS: Insulin Detemir 100 units/ml Vial (Levemir) SC SCH ×2 (06:37→22:04)
[2016-11-01] MEDS ORDERED: Potassium Chloride 20 mEq ER Tab PO SCH (08:00)
[2016-11-01 10:17] LABS: ALB/GLOB RATIO 0.9 (1.1-1.8); ALBUMIN 3.8 g/dL (3.0-4.8); CALCIUM 10.5 mg/dL (8.4-10.5); MAGNESIUM 1.8 mg/dL (1.7-2.2)
[2016-11-01] MEDS: Lactobacillus Acidophilus 500 MU Cap PO SCH (10:22)
[2016-11-01] MEDS: FLUVOXAMINE 50 MG PO SCH ×2 (10:23→17:58)
[2016-11-01] MEDS: cefTRIAXone 1 gm 1 GM/100 ML BAG IVPB SCH (10:24)
[2016-11-01] MEDS: Azithromycin 500MG/NS 250ml 500 MG/250 ML BAG IVPB SCH (10:25)
--- NOTE | 2016-11-01 13:30 | CP.PCM.PN ---
Subjective - Date & Time of Evaluation Date of Evaluation: 11/01/16 Time of Evaluation: 13:40 - Subjective Subjective: Awake, alert C/o L lower abdominal pain Objective - Vital Signs/Intake and Output Vital Signs (last 24 hours): Temp Pulse Resp BP Pulse Ox 98.7 F 86 18 113/65 96 11/01/16 10:00 11/01/16 10:22 11/01/16 10:00 11/01/16 10:22 11/01/16 10:00 - Medications Medications: Current Medications Acetaminophen (Tylenol 325mg Tab) 650 mg PO Q6H PRN; Protocol PRN Reason: Fever >100.4 F Acetaminophen (Tylenol 325mg Tab) 650 mg PO Q4H PRN; Protocol PRN Reason: Pain, Mild (1-3) Alprazolam (Xanax) 1 mg PO TID PRN; Protocol PRN Reason: Anxiety Atorvastatin Calcium (Lipitor) 20 mg PO DAILY [facility] Last Admin: 11/01/16 10:23 Dose: 20 mg Carvedilol (Coreg) 6.25 mg PO BID [facility] PRN Reason: Protocol Last Admin: 11/01/16 10:22 Dose: 6.25 mg Clopidogrel Bisulfate (Plavix) 75 mg PO DAILY [facility] Last Admin: 11/01/16 10:24 Dose: 75 mg Gabapentin (Neurontin) 300 mg PO BID [facility] PRN Reason: Protocol Last Admin: 11/01/16 10:24 Dose: 300 mg Ceftriaxone Sodium (Rocephin 1 Gram Ivpb) 1 gm in 100 mls @ 100 mls/hr IVPB DAILY [facility] PRN Reason: Protocol Last Admin: 11/01/16 10:24 Dose: 100 mls/hr Azithromycin (Zithromax 500mg In Ns) 500 mg in 250 mls @ 167 mls/hr IVPB DAILY [facility] PRN Reason: Protocol Last Admin: 11/01/16 10:25 Dose: 167 mls/hr Insulin Detemir (Levemir) 40 unit SC ACBHS [facility] Last Admin: 11/01/16 06:37 Dose: 40 unit Insulin Human Regular (Humulin R High) 0 units SC ACHS [facility] PRN Reason: Protocol Last Admin: 11/01/16 11:44 Dose: 4 units Insulin Lispro Protam/Lispro Human (Humalog Mix 75/25) 35 units SC ACBD [facility] PRN Reason: Protocol Last Admin: 11/01/16 06:36 Dose: 35 u Lactobacillus Acidophilus (Bacid Acidophilus) 1 cap PO DAILY [facility] Last Admin: 11/01/16 10:22 Dose: 1 cap Levalbuterol HCl (Xopenex) 1.25 mg IH [id number] PRN; Protocol PRN Reason: Shortness of Breath Last Admin: 10/31/16 19:57 Dose: 1.25 mg Non-Formulary Medication (Fluvoxamine [Luvox]) 50 mg PO BID [facility] Last Admin: 11/01/16 10:23 Dose: Not Given Ondansetron HCl (Zofran Inj) 4 mg IVP Q6H PRN; Protocol PRN Reason: Nausea/Vomiting Pantoprazole Sodium (Protonix Ec Tab) 40 mg PO 0600 [facility] PRN Reason: Protocol Last Admin: 11/01/16 05:44 Dose: 40 mg Promethazine HCl/Codeine (Phenergan/Codeine Oral Syrup) 5 ml PO Q6H PRN; Protocol PRN Reason: Cough and congestion Quetiapine Fumarate (Seroquel) 100 mg PO HS [facility] PRN Reason: Protocol Last Admin: 10/31/16 22:15 Dose: 100 mg - Labs Labs: 10/31/16 06:15 11/01/16 10:01 - Constitutional Appears: Well, Non-toxic - Head Exam Head Exam: ATRAUMATIC, NORMAL INSPECTION, NORMOCEPHALIC - Eye Exam Eye Exam: Normal appearance - ENT Exam ENT Exam: Mucous Membranes Moist - Respiratory Exam Respiratory Exam: Clear to Ausculation Bilateral, NORMAL BREATHING PATTERN - Cardiovascular Exam Cardiovascular Exam: REGULAR RHYTHM, JVD, +S1, +S2 - GI/Abdominal Exam GI & Abdominal Exam: Distended, Soft, Tenderness, Normal Bowel Sounds - Extremities Exam Extremities Exam: Normal Inspection Assessment and Plan - Assessment and Plan (Free Text) Assessment: NIDDM- uncontrolled Neuropathy Hematuria/Proteinuria Severe Anemia, ??? etiology Severe Hypokalemia Hypercalcemia Po KCl Strict I/O Restart Diuretics Tight glycemic control Monitor electrolytes closely Check iPTH, Vit D
[2016-11-01] MEDS: Levalbuterol 1.25 MG/3 ML Inhal Soln UD IH PRN (15:00)
--- NOTE | 2016-11-01 19:55 | CP.PCM.PN ---
Subjective - Date & Time of Evaluation Date of Evaluation: 11/01/16 Time of Evaluation: 09:00 - Subjective Subjective: Patient known case of CAD S/P PTCA, HTN, COPD, OBESITY, Anaemia was admitted to Medical Floor with Pneumonia. Treated and improved. Now Admitted to Transitional Care Unit for Deconditioning and Physical Therapy. Patient lying flat in bed without anyu cardiac symptoms. Objective - Vital Signs/Intake and Output Vital Signs (last 24 hours): Temp Pulse Resp BP Pulse Ox 99 F 81 18 141/76 96 11/01/16 16:00 11/01/16 17:57 11/01/16 16:00 11/01/16 17:57 11/01/16 10:00 - Medications Medications: Current Medications Acetaminophen (Tylenol 325mg Tab) 650 mg PO Q6H PRN; Protocol PRN Reason: Fever >100.4 F Acetaminophen (Tylenol 325mg Tab) 650 mg PO Q4H PRN; Protocol PRN Reason: Pain, Mild (1-3) Alprazolam (Xanax) 1 mg PO TID PRN; Protocol PRN Reason: Anxiety Atorvastatin Calcium (Lipitor) 20 mg PO DAILY [facility] Last Admin: 11/01/16 10:23 Dose: 20 mg Carvedilol (Coreg) 6.25 mg PO BID [facility] PRN Reason: Protocol Last Admin: 11/01/16 17:57 Dose: 6.25 mg Clopidogrel Bisulfate (Plavix) 75 mg PO DAILY [facility] Last Admin: 11/01/16 10:24 Dose: 75 mg Furosemide (Lasix) 40 mg PO DAILY [facility] Gabapentin (Neurontin) 300 mg PO BID [facility] PRN Reason: Protocol Last Admin: 11/01/16 17:57 Dose: 300 mg Ceftriaxone Sodium (Rocephin 1 Gram Ivpb) 1 gm in 100 mls @ 100 mls/hr IVPB DAILY [facility] PRN Reason: Protocol Last Admin: 11/01/16 10:24 Dose: 100 mls/hr Azithromycin (Zithromax 500mg In Ns) 500 mg in 250 mls @ 167 mls/hr IVPB DAILY [facility] PRN Reason: Protocol Last Admin: 11/01/16 10:25 Dose: 167 mls/hr Insulin Detemir (Levemir) 40 unit SC [facility] Last Admin: 11/01/16 06:37 Dose: 40 unit Insulin Human Regular (Humulin R High) 0 units SC ACHS [facility] PRN Reason: Protocol Last Admin: 11/01/16 17:09 Dose: 2 units Insulin Lispro Protam/Lispro Human (Humalog Mix 75/25) 35 units SC [facility] PRN Reason: Protocol Last Admin: 11/01/16 17:08 Dose: 35 u Lactobacillus Acidophilus (Bacid Acidophilus) 1 cap PO DAILY [facility] Last Admin: 11/01/16 10:22 Dose: 1 cap Levalbuterol HCl (Xopenex) 1.25 mg IH [id number] [facility] PRN Reason: Protocol Non-Formulary Medication (Fluvoxamine [Luvox]) 50 mg PO BID [facility] Last Admin: 11/01/16 17:58 Dose: Not Given Ondansetron HCl (Zofran Inj) 4 mg IVP Q6H PRN; Protocol PRN Reason: Nausea/Vomiting Pantoprazole Sodium (Protonix Ec Tab) 40 mg PO 0600 [facility] PRN Reason: Protocol Last Admin: 11/01/16 05:44 Dose: 40 mg Promethazine HCl/Codeine (Phenergan/Codeine Oral Syrup) 5 ml PO Q6H PRN; Protocol PRN Reason: Cough and congestion Quetiapine Fumarate (Seroquel) 100 mg PO HS [facility] PRN Reason: Protocol Last Admin: 10/31/16 22:15 Dose: 100 mg - Labs Labs: 10/31/16 06:15 11/01/16 10:01 - Constitutional Appears: Well - Head Exam Head Exam: NORMOCEPHALIC - Eye Exam Eye Exam: Normal appearance - ENT Exam ENT Exam: Mucous Membranes Moist, Normal Exam - Neck Exam Neck Exam: Full ROM, Normal Inspection. absent: Lymphadenopathy - Respiratory Exam Respiratory Exam: Clear to Ausculation Bilateral - Cardiovascular Exam Cardiovascular Exam: +S1, +S2 - GI/Abdominal Exam GI & Abdominal Exam: Soft, Normal Bowel Sounds - Exam Exam: Circumcision, NORMAL INSPECTION External exam: NORMAL EXTERNAL EXAM Speculum exam: NORMAL SPECULUM EXAM Bimanual exam: NORMAL BIMANUAL EXAM - Extremities Exam Extremities Exam: Calf Tenderness, Normal Capillary Refill, Normal Inspection. absent: Joint Swelling, Pedal Edema Assessment and Plan - Assessment and Plan (Free Text) Assessment: Pneumonia, CAD PTCA, COPD,HTN,Anaemia, Renal Dysfunction, DM,Obesity, Deconditioining. Hypokalaemia is Corrected. Mild to Moiderate Aortic Stenosis. Plan: Continue Physical Therapy. ASA, Plavix, Coreg,Statin. ECHO: 07.19.2016 EF: 55%, RVSP: 20, Mild to Moderate Aortic Stenosis. STRESS TEST: 07/19/2016 NEGATIVE.
[2016-11-01] MEDS: Levalbuterol 1.25 MG/3 ML Inhal Soln UD IH SCH (20:02)
[2016-11-02] MEDS: Levalbuterol 1.25 MG/3 ML Inhal Soln UD IH SCH ×4 (01:18→20:06)
[2016-11-02] MEDS: Insulin Lispro (humaLOG) MIX 75/25(10 ml) SC SCH ×2 (06:32→17:31)
[2016-11-02] MEDS: Pantoprazole 40 mg EC Tab PO SCH (06:34)
[2016-11-02] MEDS: Insulin Reg-HIGH-Coverage SC SCH ×4 (06:35→22:32)
[2016-11-02] MEDS: Insulin Detemir 100 units/ml Vial (Levemir) SC SCH ×2 (07:31→21:08)
[2016-11-02] MEDS: Azithromycin 500MG/NS 250ml 500 MG/250 ML BAG IVPB SCH (09:29)
[2016-11-02] MEDS: Lactobacillus Acidophilus 500 MU Cap PO SCH (09:32)
[2016-11-02] MEDS ORDERED: Ergocalciferol 50,000 Intl Units Cap PO SCH (11:15)
[2016-11-02] MEDS: cefTRIAXone 1 gm 1 GM/100 ML BAG IVPB SCH (11:35)
[2016-11-02] MEDS: FLUVOXAMINE 50 MG PO SCH (18:53)
[2016-11-02] MEDS: Promethazine/Cod 6.25mg-10mg/5ml Syr UD PO PRN (21:11)
[2016-11-03] MEDS: Levalbuterol 1.25 MG/3 ML Inhal Soln UD IH SCH ×4 (02:27→21:38)
[2016-11-03] MEDS: Pantoprazole 40 mg EC Tab PO SCH (06:14)
[2016-11-03] MEDS: Insulin Detemir 100 units/ml Vial (Levemir) SC SCH ×2 (06:37→23:19)
[2016-11-03] MEDS: Insulin Lispro (humaLOG) MIX 75/25(10 ml) SC SCH ×2 (06:40→17:00)
[2016-11-03] MEDS: Insulin Reg-HIGH-Coverage SC SCH ×4 (07:14→23:18)
--- NOTE | 2016-11-03 09:07 | PN ---
DATE: 11/02/2016 SUBJECTIVE: The patient is 56 years old, seen and examined, who came in with generalized weakness, was found to be in acute renal failure with hypokalemia, also was found to have community-acquired pneumonia, given antibiotics, IV fluids, seems to be improving, eating, tolerating, and ambulating. PHYSICAL EXAMINATION: VITAL SIGNS: She is afebrile, pulse 88, respirations 18, blood pressure 142/73. CARDIOPULMONARY: Heart, S1 and S2 audible. LUNGS: Bilateral fair air flow, no rhonchi or crackles. ABDOMEN: Soft and nontender. No rebound. No guarding. NEUROLOGIC: The patient is awake and alert, *------* ambulatory. LABORATORY DATA: Sodium 149, potassium 3.7, chloride 107, CO2 28, BUN 50, creatinine 1.4. Blood sugar of 227. Vitamin D is 20. Urinalysis is unremarkable. ASSESSMENT: 1. Status post acute renal failure. 2. Chronic obstructive pulmonary disease. 3. Community-acquired pneumonia. 4. History of hypertension, currently running low blood pressure. 5. Chronic anemia. 6. Coronary artery disease, status post angioplasty. PLAN: Currently, the patient is on nebulizer treatment and diuretics. She is on Coreg. She is on Versed. She has been started on vitamin D. We will monitor her blood sugar. She is getting Venofer daily and getting physical therapy. Continue her on Rocephin and Zithromax and we will reevaluate the patient in a.m. Colt Zhu MD
[2016-11-03] MEDS: cefTRIAXone 1 gm 1 GM/100 ML BAG IVPB SCH (09:08)
[2016-11-03] MEDS: Azithromycin 500MG/NS 250ml 500 MG/250 ML BAG IVPB SCH (09:08)
[2016-11-03] MEDS: FLUVOXAMINE 50 MG PO SCH ×2 (09:09→17:57)
[2016-11-03] MEDS: Lactobacillus Acidophilus 500 MU Cap PO SCH (09:09)
[2016-11-03] MEDS: POLYETHYLENE GLYCOL 3350 17 GM/Dose PACKET PO SCH (09:11)
--- NOTE | 2016-11-03 09:40 | PN ---
DATE: 11/02/2016 SUBJECTIVE: The patient is seen, lying in bed. PHYSICAL EXAMINATION: GENERAL: She is awake. She is alert. She is comfortable. VITAL SIGNS: Blood pressure 142/73, heart rate 88, respiratory rate 18, and temperature 99. HEENT: Normocephalic and atraumatic. NECK: Supple. No JVD. CARDIAC: S1 and S2, regular rate and rhythm, no murmur, no rub. LUNGS: Bilateral equal air entry, bilateral scattered rhonchi, and no rales. ABDOMEN: Obese, distended, soft, nontender, and bowels sounds present. EXTREMITIES: No lower extremity edema. INTAKE AND OUTPUT: Not charted. LABORATORY DATA: No new labs. Intact PTH pending. Vitamin D20. Urine protein 175 and urine creatinine 51 consistent with 3.5 g of proteinuria. LAURA negative, urine immunofixation no monoclonal proteins, serum immunofixation. CURRENT MEDICATIONS: Coreg 6.25 b.i.d., insulin, Lasix, Levemir, Lipitor, gabapentin, Plavix, Protonix, Rocephin, Seroquel, Tylenol, Zofran, and Zithromax. ASSESSMENT: 1. Acute kidney injury, superimposed on chronic renal disease stage II, resolved acute kidney injury. 2. Nephrotic range proteinuria, likely secondary to diabetic nephropathy. 3. Hypercalcemia, followup intact parathyroid hormone. 4. Cardiomyopathy. 5. Hypertension. PLAN: 1. Check 24-hour urine for protein and creatinine clearance. 2. Follow up intact PTH levels. 3. Restart Lasix. 4. Venofer 200 mg IV piggyback daily while in hospital. 5. Vitamin D 50,000 units once a week. Elva Frank MD
[2016-11-03 10:34] VITALS: RESP 18
[2016-11-03 15:00] LABS: BASO # 0.06 K/mm3 (0.0-2.0); BASO % 0.6 % (0.0-3.0); EOS # 0.5 (0.0-0.7); EOS % 4.9 % (1.5-5.0); GRAN % 74.9 % (50.0-68.0); HEMOGLOBIN 9.7 gm/dL (12.0-16.0); LYMPH # 1.3 (1.2-3.4); LYMPH % 13.4 % (22.0-35.0); MEAN CELL VOLUME 93.2 fL (80.0-105.0); MEAN CORPUSCULAR HEMOGLOBIN 28.6 pg (25.0-35.0); MEAN CORPUSCULAR HGB CONC 30.7 g/dl (31.0-37.0); MEAN PLATELET VOLUME 10.5 fl (7.0-11.0); MONO # 0.6 (0.1-0.6); MONO % 6.2 % (1.0-6.0); PLATELET COUNT 359 10^3/uL (120.0-450.0); RBC 3.39 10^6/uL (3.5-6.1); RED CELL DISTRIBUTION WIDTH 17.7 % (11.5-14.5); WHITE BLOOD COUNT 9.9 10^3/ul (4.5-11.0)
[2016-11-03 15:07] LABS: BLOOD UREA NITROGEN 43 mg/dL (7-21); CALCIUM 9.5 mg/dL (8.4-10.5); GFR AFRICAN-AMERICAN > 60; GFR NON-AFRICAN AMERICAN 52; MAGNESIUM 1.7 mg/dL (1.7-2.2)
[2016-11-03 15:54] LABS: URINE CREATININE 36.5 mg/dL
--- NOTE | 2016-11-03 21:06 | PN ---
DATE: 11/03/2016 SUBJECTIVE: The patient is seen sitting in bed. She awake. She is alert. She is comfortable. PHYSICAL EXAMINATION VITAL SIGNS: Blood pressure 121/47, heart rate 82, respiratory rate 18, temperature 98. HEENT: Normocephalic, atraumatic. Positive pallor. NECK: Supple. No JVD. LUNGS: Bilateral equal air entry. Bilateral rhonchi. No rales. CARDIAC: S1, S2. Regular rate and rhythm. Positive murmur. No rubs. ABDOMEN: Obese, distended, soft, nontender. Bowel sounds present. EXTREMITIES: 1+ pitting edema with lower extremities. INTAKE AND OUTPUT: Not charted. LABORATORY DATA: No new labs. CURRENT MEDICATIONS: Bacid, Coreg, Drisdol, Luvox, insulin, iron, Lasix, Levaquin, Lipitor, MiraLax, Neurontin, Phenergan, Plavix, Protonix, Tylenol, Xanax, Xopenex, and Zofran. ASSESSMENT AND PLAN: 1. Acute kidney injury, resolved. 2. Dehydration, resolved. 3. Noninsulin-dependent diabetes mellitus. 4. Nephrotic range proteinuria. 5. Underlying chronic kidney disease suspect. PLAN: 1. Follow up 24-hour urine for protein and creatinine clearance. 2. Restart Lasix. 3. Continue fingerstick monitoring and insulin coverage. 4. Unfortunately unable to give ARV because of low blood pressure. Elva Frank MD
[2016-11-03] MEDS: Promethazine/Cod 6.25mg-10mg/5ml Syr UD PO PRN (21:50)
[2016-11-04] MEDS: Levalbuterol 1.25 MG/3 ML Inhal Soln UD IH SCH ×2 (02:37→07:53)
[2016-11-04] MEDS: Pantoprazole 40 mg EC Tab PO SCH (05:56)
[2016-11-04] MEDS: Promethazine/Cod 6.25mg-10mg/5ml Syr UD PO PRN (05:56)
[2016-11-04] MEDS: Insulin Reg-HIGH-Coverage SC SCH ×2 (07:52→12:31)
--- NOTE | 2016-11-04 08:23 | PN ---
DATE: 11/04/2016 SUBJECTIVE: The patient is a 56-year-old seen and examined lying in bed. She states she is feeling bold. She is tired. She feels a lot better. Eating and tolerating. PHYSICAL EXAMINATION: VITAL SIGNS: She is afebrile. Pulse 84, respirations 18, blood pressure 130/62. CARDIOPULMONARY: Heart is S1 and S2 audible. LUNGS: Bilateral fair air flow. No rhonchi or crackle. ABDOMEN: Soft, obese, nontender. No rebound. No guarding. NEUROLOGIC: She is awake and alert, communicative and ambulatory. LABORATORY EXAM: WBC 9.9, hemoglobin 9.7, hematocrit 31.6 and platelets 359. Chemistry; sodium 142, potassium 4.1, chloride 103, CO2 29, BUN 43, creatinine 1.1. Blood sugar of 199. ASSESSMENT: 1. Status post acute renal failure. 2. Chronic obstructive pulmonary disease. 3. Hypertension. 4. Insulin dependent diabetes. 5. Community acquired pneumonia, resolving. 6. Chronic anemia. PLAN: The patient's IV antibiotic has been discontinued. She has been started on p.o. Levaquin. We will monitor for next 24 hours. If she remains stable, she will be discharged home in a.m. on p.o. antibiotic. I will follow up patient as outpatient. Colt Zhu MD
[2016-11-04] MEDS: Insulin Detemir 100 units/ml Vial (Levemir) SC SCH (09:28)
[2016-11-04] MEDS: Lactobacillus Acidophilus 500 MU Cap PO SCH (09:40)
[2016-11-04] MEDS: FLUVOXAMINE 50 MG PO SCH (09:42)
[2016-11-04] MEDS: POLYETHYLENE GLYCOL 3350 17 GM/Dose PACKET PO SCH (09:45)
[2016-11-04] MEDS ORDERED: levoFLOXacin 500 MG TAB PO SCH (10:00)
--- NOTE | 2016-11-04 11:02 | PN ---
DATE: 11/02/2016 REASON FOR THE CONSULTATION: Coronary artery disease, admitted with shortness of breath, pneumonia, severe anemia. BRIEF CLINICAL HISTORY: This is a 56-year-old female with past medical history significant for coronary artery disease, status post PTCA to LAD, obesity, hypertension, hyperlipidemia, anemia, admitted with pneumonia *------* as an outpatient, transferred to the transitional care unit for continuity of care. No evidence of chest pain, shortness of breath or palpitations. PHYSICAL EXAMINATION: As follows: VITAL SIGNS: Temperature afebrile, heart rate 88, blood pressure 142/73. HEENT: * *00:56 PERRLA. Extraocular muscles intact. NECK: Supple. No carotid bruits or thyromegaly. CHEST: Clear to auscultation. HEART: S1, S2 regular. ABDOMEN: Soft. EXTREMITIES: * *01:01 cyanosis negative. LABORATORY DATA: WBC 10.9, hemoglobin 9.6, hematocrit 30.7, platelet count 414. Chemistry showed sodium 149, potassium 3.7, chloride 107, carbon dioxide 28, anion gap of 18, BUN 50, creatinine 1.4, blood sugar of 190. IMPRESSION: Diabetes, hypertension, hyperlipidemia, coronary artery disease, status post percutaneous transluminal coronary angioplasty in the past of left anterior descending. Followup stress test was negative for ischemia. Last echo dated 07/19/2016 shows ejection fraction *____*01:45, [id number] aortic stenosis. A stress test on 07/19/2016 was negative. RECOMMENDATION: Continue rehab, continue iron supplementation. Anemia workup possibly may need bone marrow biopsy. Recommend to continue aspirin, continue *____*02:04, continue Coreg, continue statin, followup electrolytes. We will follow with you. Thank you * *02:11 in taking care of the patient. Stephanie Anton MD
--- NOTE | 2016-11-04 11:36 | CON ---
DATE: 11/03/2016 REASON FOR CONSULTATION: Coronary artery disease, history of PTCA, continuity of care in the transition care unit. BRIEF CLINICAL HISTORY: This is a 56-year-old female with a past medical history significant for coronary artery disease status post PTCA, hypertension, COPD, obesity, anemia, admitted to medical floor with pneumonia and decreased H and H. The patient got IV iron infusion and antibiotics. Now, the patient is transferred to telemetry for the continuity of care. Denies any chest pain, shortness of breath, any palpitation. PHYSICAL EXAMINATION VITAL SIGNS: Afebrile, heart rate 80, blood pressure 118/71. HEENT: PERRLA, intact. NECK: Supple. No carotid bruits or thyromegaly. CHEST: Clear to auscultation. HEART: S1 and S2 regular. ABDOMEN: Soft. EXTREMITIES: Clubbing and cyanosis negative. LABORATORY DATA: Blood workup as follows; WBC 10.9, hemoglobin 9.7, hematocrit 30.7, platelet count 414. Chemistry shows sodium, last on 2-hour sodium 149, potassium 3.7, chloride 20, carbon dioxide 18, BUN 50, creatinine 1.4. IMPRESSION: A 56-year-old female with past medical history significant for coronary artery disease status post percutaneous transluminal coronary angioplasty in the past, history of 2 subsequent stressors negative, admitted with pneumonia, decreased H and H, status post iron infusion, now with hemoglobin is 9.6, getting rehab, history of obesity, diabetes, hypertension, hyperlipidemia. RECOMMENDATION: Continue Coreg. Continue gentle Lasix. Continue atorvastatin. Getting rehab. Continue Plavix. Upon discharge, the patient will be going to have the bone marrow done. We will follow with you. No anginal symptoms. CVS status is stable. Thank you Dr. Zhu in participating and taking care of the patient, Ashley Mallory. Stephanie Anton MD
[2016-11-04 11:49] VITALS: BP 108/64; PULSE 65; TEMP 98.3; O2SAT 93
--- NOTE | 2016-11-05 03:10 | PN ---
DATE: 11/04/2016 SUBJECTIVE: The patient is currently seen in TCU lying comfortably in a chair. She states she might be discharged over the weekend. MEDICATIONS: Medication list reviewed. The patient is currently on lactobacillus, Coreg, vitamin D, Luvox, insulin, IV iron, p.o. Lasix, Levaquin oral, Lipitor, MiraLax, Neurontin, Phenergan with Codeine, Plavix, Protonix, Seroquel, Tylenol p.r.n., Xanax p.r.n., and Xopenex. She has completed a course of IV Rocephin. OBJECTIVE: VITAL SIGNS: Blood pressure 115/65, temperature 98.3, respiratory rate of 18 with a pulse of 91. HEENT: Shows her head to be normocephalic, atraumatic. Conjunctivae are pale. Sclerae are nonicteric. NECK: Supple. No neck vein distention. CARDIOPULMONARY: S1 and S2 are normal. No murmurs, rubs, or gallops noted. LUNGS: Chest is clear to auscultation and percussion. Scattered rhonchi. No rales or wheezing. ABDOMEN: Soft. Bowel sounds normal. Not distended. No rebound. No guarding. EXTREMITIES: Show no cyanosis, clubbing, or edema in her lower extremity. ASSESSMENT: 1. Acute renal failure, essentially resolved. BUN was down from 134 to 43, baseline BUN is in the 20-30s. Creatinine is down to 1.1 from a high of 3.6, she is at her baseline level. Electrolytes are normal. 2. Proteinuria, likely secondary to underlying diabetic nephropathy. 3. Hypercalcemia, resolved. PTH level is normal. Vitamin D level was low at 20. 4. History of arteriosclerotic heart disease, status post percutaneous transluminal coronary angioplasty with cardiomyopathy and history of congestive heart failure. The patient will continue oral Lasix therapy. 5. History of anemia, likely secondary to acute kidney injury, which has presently resolved. PLAN: 1. The patient is stable from a renal standpoint. The patient may continue on low dose Lasix therapy, and we will accept a mild degree of prerenal azotemia. 2. The patient has collected a 24-hour urine for protein and creatinine clearance. These results are pending. 3. Continue IV iron therapy. 4. Continue vitamin D therapy in light of her low vitamin D levels with close monitoring of her calcium level. Brent Sheth MD
--- NOTE | 2016-11-06 02:00 | DS ---
HISTORY: The patient is 56 years old who was admitted with generalized weakness, leg pain, and difficulty walking. She was found to be in acute renal failure. On admission on 10/27/2016, her BUN was 134 and her creatinine was 3.0, so the patient was found to be in acute renal failure. She was resuscitated with IV fluids. She was also found to have community-acquired pneumonia, so she was started on IV antibiotics. She was evaluated by Dr. Frank. She was also being followed by Dr. Hartley. The patient started to do well. She was transferred to TCU to finish her course of antibiotic and close follow up on BUN and creatinine. PHYSICAL EXAMINATION: GENERAL: Today, she is awake and alert and communicative. VITAL SIGNS: She is afebrile, pulse 91, respirations 18, and blood pressure 115/65. LUNGS: Bilateral fair airflow. No rhonchi or crackles. HEART: S1 and S2 audible. No murmur. ABDOMEN: Soft and nontender. No rebound. No guarding. NEUROLOGIC: The patient is awake and alert, communicative, and ambulatory. ASSESSMENT: 1. Status post acute renal failure. 2. Community-acquired pneumonia. 3. Chronic obstructive pulmonary disease. 4. Insulin-dependent diabetes. 5. Hypertension. 6. Diabetic neuropathy. PLAN: The patient is clinically stable. She is doing well. She is being discharged home on Levaquin 500 daily for 3 more days and she will resume all her medications as prior to admission that include Luvox, potassium, Protonix, Plavix, carvedilol, nebulizer treatment, and Seroquel. She will follow up with me and Dr. Hartley. Colt Zhu MD
--- NOTE | 2016-11-06 02:31 | PN ---
DATE: 11/04/2016 LOCATION: Patient in room 315, bed 1. SUBJECTIVE: The patient is lying flat in bed without any chest pain, shortness of breath, or palpitation. PHYSICAL EXAMINATION VITAL SIGNS: Blood pressure 108/64, respirations 18, pulse 65, temperature 98.3. HEENT: Head is normocephalic. Eyes, pupils normal. Conjunctivae slightly pale. NECK: JVP low, carotid equal. Thorax AP diameter normal. LUNGS: Clear. CARDIOVASCULAR: S1, S2. ABDOMEN: Soft. No tenderness. No organomegaly. Bowel sounds normal. EXTREMITIES: No clubbing. No cyanosis. LABORATORY DATA: WBC 9.9, hemoglobin 9.7, hematocrit 31.6, platelet 359. Sodium 142, potassium 4.1, BUN 43, creatinine 1.1. Sugar 199. Calcium 9.5, phosphorus 4.1, magnesium 1.7. DIAGNOSES: Coronary artery disease, status post coronary angioplasty in the past. History of two subsequent stress tests, which were negative, was admitted with pneumonia and low hemoglobin and hematocrit, status post *------*. Obesity, diabetes, hypertension, hyperlipidemia, renal dysfunction, anemia. PLAN: To continue physical therapy, continue Coreg, gentle Lasix, atorvastatin, Plavix. The patient as outpatient is going to have bone marrow done as part of workup of anemia. We will follow with you. Stephanie Hartley MD
== END 2016-11-04 13:50 | disposition home or self-care (01) | DRG 190 ==
LOC: TRCU 16:05
PROVIDERS: ADMIT Internal Medicine; ATTEND Internal Medicine
PROC: F07Z9FZ Gait Training/Functional Ambulation Treatment using Assistive, Adaptive, Supportive or Protective Equipment (ICD-10-PCS; principal; 2016-10-31)
PROC: F08Z4FZ Home Management Treatment using Assistive, Adaptive, Supportive or Protective Equipment (ICD-10-PCS; 2016-11-02)
DX: J44.0 Chronic obstructive pulmonary disease with (acute) lower respiratory infection (principal); J18.9 Pneumonia, unspecified organism; N17.9 Acute kidney failure, unspecified; I42.9 Cardiomyopathy, unspecified; I13.0 Hypertensive heart and chronic kidney disease with heart failure and stage 1 through stage 4 chronic kidney disease, or unspecified chronic kidney disease; I50.9 Heart failure, unspecified; E11.21 Type 2 diabetes mellitus with diabetic nephropathy; E83.52 Hypercalcemia; N18.2 Chronic kidney disease, stage 2 (mild); E11.40 Type 2 diabetes mellitus with diabetic neuropathy, unspecified; E11.65 Type 2 diabetes mellitus with hyperglycemia; D64.9 Anemia, unspecified; E87.6 Hypokalemia; I25.10 Atherosclerotic heart disease of native coronary artery without angina pectoris; I35.0 Nonrheumatic aortic (valve) stenosis; D63.1 Anemia in chronic kidney disease; E11.22 Type 2 diabetes mellitus with diabetic chronic kidney disease; E78.5 Hyperlipidemia, unspecified; E66.9 Obesity, unspecified; E86.0 Dehydration; R31.9 Hematuria, unspecified; G25.81 Restless legs syndrome; M79.7 Fibromyalgia; Z79.4 Long term (current) use of insulin; Z95.5 Presence of coronary angioplasty implant and graft; Z68.30 Body mass index [BMI] 30.0-30.9, adult; Z99.81 Dependence on supplemental oxygen

== ENCOUNTER 2016-11-29 19:27 | Inpatient (IN) | payer MEDICARE ==
[2016-11-29 19:40] VITALS: BMI 30.9
[2016-11-29] MEDS ORDERED: Albuterol-Ipratrop 3 mg / 0.5 (3 ml) UD IH STA (20:09)
--- NOTE | 2016-11-29 20:09 | ED PDOC ---
Arrival/HPI <Brent Chatterjee - Last Filed: 11/29/16 22:39> - General Historian: Patient <Brant Beckford - Last Filed: 12/01/16 16:55> - General Chief Complaint: Female Genitourinary Time Seen by Provider: 11/29/16 20:04 - History of Present Illness Narrative History of Present Illness (Text): 11/29/16 20:06 56 y/o female, pmh including htn/hyperlipidemia/dm/renal failure/copd allergic to theophylline, c/o chest pain/shortness of breath x 2 days. Pt. stated that she has been having chest pain for the past 2 days with chest pain, painful during inspiration and difficulty catching breath, no night sweat, recently recover from the pneumonia, no fever or chills, admits productive coughing. Pt. also stated that she has been told that she UTI, on macrobid now, no flank or abdominal pain, no other medical or psychological complaints. (Brant Beckford) Past Medical History - Provider Review Nursing Documentation Reviewed: Yes - Infectious Disease Hx of Infectious Diseases: None - Tetanus Immunization Tetanus Immunization: Unknown - Cardiac Hx Cardiac Disorders: Yes Hx Congestive Heart Failure: Yes Hx Hypertension: No - Pulmonary Hx Respiratory Disorders: Yes Hx Chronic Obstructive Pulmonary Disease (COPD): Yes Hx Pneumonia: Yes - Neurological Hx Neurological Disorder: Yes Hx Dizziness: Yes Other/Comment: Restless leg syndrome. Fibromyalgia - HEENT Hx HEENT Disorder: Yes Hx Epistaxis: Yes - Renal Hx Renal Disorder: Yes Hx Kidney Stones: Yes - Endocrine/Metabolic Hx Diabetes Mellitus Type 2: Yes - Hematological/Oncological Hx Blood Disorders: Yes Hx Anemia: Yes - Integumentary Hx Dermatological Disorder: Yes - Musculoskeletal/Rheumatological Hx Falls: No - Gastrointestinal Hx Gastrointestinal Disorders: Yes - Genitourinary/Gynecological Hx Genitourinary Disorders: Yes Hx Incontinence: Yes Hx Urinary Tract Infection: Yes Other/Comment: Endometriosis - Psychiatric Hx Psychophysiologic Disorder: Yes Hx Anxiety: Yes Hx Depression: Yes Hx Emotional Abuse: No Hx Physical Abuse: No Hx Substance Use: No - Surgical History Hx Appendectomy: Yes Hx Cardiac Catheterization: Yes Hx Coronary Stent: Yes Other/Comment: Abd lap W R oophorectomy & partial L oophrectomy. c section, I & D cellulitis both legs, bilateral axilla, - Anesthesia Hx Anesthesia: Yes Hx Anesthesia Reactions: No Hx Malignant Hyperthermia: No - Suicidal Assessment Feels Threatened In Home Enviroment: No <Brant Beckford - Last Filed: 12/01/16 16:55> Family/Social History - Physician Review Nursing Documentation Reviewed: Yes Family/Social History: Unknown Family HX Smoking Status: Never Smoked Hx Alcohol Use: No Hx Substance Use: No Hx Substance Use Treatment: No <Brant Beckford - Last Filed: 12/01/16 16:55> Allergies/Home Meds <Brent Chatterjee - Last Filed: 11/29/16 22:39> <Brant Beckford - Last Filed: 12/01/16 16:55> Allergies/Adverse Reactions: Allergies theophylline Allergy (Verified 11/29/16 19:40) NAUSEA Home Medications: Home Meds Medication Instructions Recorded Confirmed Atorvastatin Calcium [Lipitor] 20 mg PO DAILY 07/08/12 11/29/16 Carvedilol 6.25 mg PO BID 07/08/12 11/29/16 Lactobacillus Acidophilus 300 mg PO DAILY 07/08/12 11/29/16 [Acidophilus] fluvoxaMINE [Luvox] 50 mg PO BID 06/26/14 11/29/16 ALPRAZolam [Xanax] 1 tab PO DAILY 09/16/15 11/29/16 Albuterol HFA [Ventolin HFA 90 1 inh INH PRN PRN 09/16/15 11/29/16 mcg/actuation (8 g)] Clopidogrel [Plavix] 75 mg PO DAILY 10/30/16 11/29/16 Albuterol HFA [Ventolin HFA 90 1 puff IH PRN PRN 11/29/16 11/29/16 mcg/actuation (8 g)] Allopurinol [Zyloprim] 300 mg PO DAILY 11/29/16 11/29/16 Aspirin [Ecotrin] 81 mg PO DAILY 11/29/16 11/29/16 Calcium/Vitamin D [Oyster Shell 1 tab PO DAILY 11/29/16 11/29/16 Calcium/Vitamin D 500 mg-200 IU] Ferrous Sulfate [Ferrous Sulfate] 325 mg PO DAILY 11/29/16 11/29/16 Furosemide [Lasix] 40 mg PO BID 11/29/16 11/29/16 Gabapentin [Neurontin] 400 mg PO QID 11/29/16 11/29/16 Gemfibrozil [Lopid] 600 mg PO BID 11/29/16 11/29/16 Insulin Aspart, Recombinant 120 units SQ DAILY 11/29/16 11/29/16 [Novolog] Insulin Glargine, Recombina 90 units SQ BID 11/29/16 11/29/16 [Lantus] Iron Ps Cmplx/Vit B12/FA [Ferrex 1 tab PO DAILY 11/29/16 11/29/16 150 Forte Capsule] Iron Sucrose Complex [Venofer] 0 mg PO ONCE 11/29/16 11/29/16 Losartan [Cozaar] 25 mg PO DAILY 11/29/16 11/29/16 Montelukast [Singulair] 10 mg PO DAILY 11/29/16 11/29/16 Multivit-Minerals/Folic Acid 1 tab PO DAILY 11/29/16 11/29/16 [Adult Multi Gummies] Pantoprazole [Protonix EC Tab] 20 mg PO DAILY 11/29/16 11/29/16 Potassium Chloride [Klor-Con M20] 1 tab PO BID 11/29/16 11/29/16 QUEtiapine [Seroquel XR] 1 tab PO DAILY 11/29/16 11/29/16 Vitamin B Complex [B Complex] 1 tab PO DAILY 11/29/16 11/29/16 Vitamin E [Vitamin E] 1 tab PO DAILY 11/29/16 11/29/16 metFORMIN [glucOPHAGE] 800 mg PO TID 11/29/16 11/29/16 Review of Systems - Review of Systems Constitutional: absent: Fatigue, Fevers Eyes: absent: Vision Changes ENT: absent: Hearing Changes Respiratory: Cough, Sputum. absent: SOB, Wheezing Cardiovascular: Chest Pain Gastrointestinal: absent: Abdominal Pain, Nausea, Vomiting Genitourinary Female: Dysuria. absent: Frequency, Hematuria, Urine Output Changes, Vaginal Bleeding, Vaginal Discharge Skin: absent: Rash, Pruritis Neurological: absent: Headache, Dizziness, Focal Weakness <Bratn Beckford Q - Last Filed: 12/01/16 16:55> Physical Exam Vital Signs Reviewed: Yes Temperature: Afebrile Blood Pressure: Normal Pulse: Regular Respiratory Rate: Normal Appearance: Positive for: Well-Appearing, Non-Toxic, Comfortable Pain Distress: Mild Mental Status: Positive for: Alert and Oriented X 3 - Systems Exam Head: Present: Atraumatic, Normocephalic Pupils: Present: PERRL Extroacular Muscles: Present: EOMI Conjunctiva: Present: Normal Mouth: Present: Moist Mucous Membranes Neck: Present: Normal Range of Motion Respiratory/Chest: Present: Clear to Auscultation, Good Air Exchange, Rhonchi ( mild rhonchi and wheezing on the rt. midlobe region. ). No: Respiratory Distress, Accessory Muscle Use, Rales, Retracting, Tachypneic, Tender to Palpation Cardiovascular: Present: Regular Rate and Rhythm, Normal S1, S2. No: Murmurs Abdomen: Present: Normal Bowel Sounds. No: Tenderness, Distention, Peritoneal Signs Back: Present: Normal Inspection Upper Extremity: Present: Normal Inspection. No: Cyanosis, Edema Lower Extremity: Present: Normal Inspection. No: Edema Neurological: Present: GCS=15, Speech Normal, Motor Func Grossly Intact, Gait Normal, Memory Normal Skin: Present: Warm, Dry, Normal Color. No: Rashes Psychiatric: Present: Alert, Oriented x 3, Normal Insight, Normal Concentration <Brant Beckford - Last Filed: 12/01/16 16:55> Vital Signs Temp Pulse Resp BP Pulse Ox 11/30/16 00:57 18 98 11/29/16 19:39 98.8 F 98 H 19 118/70 97 Medical Decision Making <Brent Chatterjee - Last Filed: 11/29/16 22:39> - Lab Interpretations I have reviewed the lab results: Yes Interpretation: Abnormal lab values (wbc 12.3 d-dimer 2.02, K+ 5.4, BUN 105, creatine 1.9) - EKG Interpretation Interpreted by ED Physician: Yes Type: 12 lead EKG <Brant Beckford - Last Filed: 12/01/16 16:55> ED Course and Treatment: 11/29/16 20:09 -labs -ekg/cxr -duoneb/solumedrol -observe and reassess 11/29/16 22:47 -EKG: NSR @66 BPM, no ST elevation or depression, no T wave inversion. -Chest x-ray show: possible infiltrate on the rt. middle and lower lobe. Azithromycin IV ordered -Labs are non-significant except wbc 12.3 (blood culture obtained), d-dimer 2.02 (not a candidate for CTA, can not rule out PE, will anticoagulate with heparin), K+ 5.4 (kayaxalate ordered), BUN 105 (IVF ordered), creatine 1.9 (not sure if it's UTI vs. dehydration vs. renal failure). -UA show +UTI, IV rocephine ordered -I discussed with dr. chatterjee and he agreed on the admission and plan of treatment. -I discussed with the patient, and she agreed to be admitted. -Dr. Zhu paged. 11/29/16 23:14 -I spoke to DR. Zhu, discussed about the case/labs/radiology results, agreed on the treatment and anticogulant plan with heparin, request Dr. Kent and DR. Hartley for consult. -Dr. Chatterjee will put in the admission. (Brant Beckford) - Lab Interpretations Microbiology Results: Microbiology Results 11/29/16 21:57 Urine,Clean Catch Urine Culture - Final 50-100,000 CFU/ML. MULTIPLE SPECIES. SUGGEST REPEAT SPECIMEM. Lab Results: 11/29/16 20:08 11/29/16 20:08 Lab Results 11/29/16 20:27: PT 12.5 H, INR 1.16 H, APTT 28.9 11/29/16 20:27: D-Dimer, Quantitative 2.02 H 11/29/16 20:27: Urine Color Yellow, Urine Appearance Sl cloudy, Urine pH 6.5, Ur Specific [place] 1.010, Urine Protein 30 H, Urine Glucose (UA) Negative, Urine Ketones Negative, Urine Blood Trace-intact H, Urine Nitrate Negative, Urine Bilirubin Negative, Urine Urobilinogen 0.2, Ur Leukocyte Esterase Small H , Urine RBC 1 - 3, Urine WBC Tntc, Ur Epithelial Cells 10 - 12, Urine Bacteria Many 11/29/16 20:08: Sodium 139, Potassium 5.4 H, Chloride 95 L, Carbon Dioxide 26, Anion Gap 23 H, BUN 105 H, Creatinine 1.9 H, Est GFR ( Amer) 33, Est GFR (Non-Af Amer) 28, Random Glucose 91, Calcium 11.1 H, Total Bilirubin 0.9, AST 36 , ALT 29, Alkaline Phosphatase 105, Lactate Dehydrogenase 695, Total Creatine Kinase 92, Troponin I < 0.01 D, NT-Pro-B Natriuret Pep 75.0, Total Protein 9.8 H, Albumin 5.1 H, Globulin 4.7, Albumin/Globulin Ratio 1.1 11/29/16 20:08: WBC 12.3 H D, RBC 3.65, Hgb 10.8 L, Hct 33.4 L, MCV 91.5, MCH 29.6, MCHC 32.3, RDW 16.9 H, Plt Count 258, MPV 10.6, Gran % 62.9, Lymph % (Auto ) 15.3 L, [place] % (Auto) 6.2 H, Eos % (Auto) 14.9 H, Baso % (Auto) 0.7, Gran # 7.70 H, Lymph # 1.9, [place] # 0.8 H, Eos # 1.8 H, Baso # 0.08 - RAD Interpretation Radiology Orders: 11/29/16 20:05 CHEST PORTABLE [RAD] Stat - EKG Interpretation EKG Interpretation (Text): 11/29/16 22:53 -EKG: NSR @66 BPM, no ST elevation or depression, no T wave inversion. (Brant Beckford) - Medication Orders Current Medication Orders: Allopurinol (Zyloprim) 100 mg PO DAILY [facility] Last Admin: 12/01/16 10:10 Dose: 100 mg Alprazolam (Xanax) 1 mg PO DAILY [facility] PRN Reason: Protocol Stop: 12/08/16 10:01 Last Admin: 12/01/16 10:09 Dose: 1 mg Re-Assess: Reassess Psych Meds Document 12/01/16 11:09 [facility] (Rec: 12/01/16 15:33 [facility] [id number]) Reassess Psych Med Effective Aspirin (Ecotrin) 81 mg PO DAILY [facility] Last Admin: 12/01/16 10:08 Dose: 81 mg Atorvastatin Calcium (Lipitor) 20 mg PO DAILY [facility] Last Admin: 12/01/16 10:08 Dose: 20 mg Carvedilol (Coreg) 3.125 mg PO BID [facility] Last Admin: 12/01/16 10:08 Dose: 3.125 mg Clopidogrel Bisulfate (Plavix) 75 mg PO DAILY [facility] Last Admin: 12/01/16 10:08 Dose: 75 mg Gabapentin (Neurontin) 300 mg PO QID [facility] PRN Reason: Protocol Last Admin: 12/01/16 15:31 Dose: 300 mg Meropenem 1g/NS 100mL IVPB (Meropenem 1g/Ns 100ml Ivpb) 1 gm in 100 mls @ 100 mls/hr IVPB Q12 [facility] PRN Reason: Protocol Stop: 12/07/16 15:47 Last Admin: 12/01/16 10:11 Dose: 100 mls/hr Potassium Chloride 20 meq/ (Sodium Chloride) 1,010 mls @ 75 mls/hr IV .[id number] [facility] Stop: 12/02/16 06:00 Last Admin: 12/01/16 16:20 Dose: 75 mls/hr Insulin Detemir (Levemir) 45 unit SC BID [facility] Insulin Human Regular (Humulin R High) 0 units SC ACHS [facility] PRN Reason: Protocol Last Admin: 12/01/16 12:38 Dose: 4 units Insulin Lispro Protam/Lispro Human (Humalog Mix 75/25) 45 units SC ACBD [facility] Last Admin: 12/01/16 08:45 Dose: 45 u Levalbuterol HCl (Xopenex) 1.25 mg IH TIDRESP [facility] Last Admin: 12/01/16 13:55 Dose: 1.25 mg Losartan Potassium (Cozaar) 25 mg PO DAILY [facility] Last Admin: 12/01/16 10:10 Dose: 25 mg Montelukast Sodium (Singulair) 10 mg PO HS [facility] Last Admin: 11/30/16 21:35 Dose: 10 mg Fluvoxamine [Luvox] (50 Mg) 50 mg PO BID [facility] Last Admin: 12/01/16 09:56 Dose: Pantoprazole Sodium (Protonix Ec Tab) 20 mg PO DAILY [facility] Last Admin: 12/01/16 10:10 Dose: 20 mg Polysaccharide Iron Complex (Ferrex-150) 150 mg PO DAILY [facility] Last Admin: 12/01/16 10:08 Dose: 150 mg Potassium Chloride (K-Dur 20 Meq Er Tab) 20 meq PO BRK [facility] Last Admin: 12/01/16 15:29 Dose: 20 meq Quetiapine Fumarate (Seroquel Xr) 50 mg PO HS [facility] PRN Reason: Protocol Last Admin: 11/30/16 21:35 Dose: 50 mg Re-Assess: Reassess Psych Meds Document 11/30/16 22:35 [facility] (Rec: 11/30/16 23:53 FDE [id number]) Reassess Psych Med Effective Discontinued Medications Albuterol/Ipratropium (Duoneb 3 Mg/0.5 Mg (3 Ml) Ud) 6 ml IH STAT STA Stop: 11/29/16 20:10 Last Admin: 11/29/16 20:51 Dose: 6 ml Carvedilol (Coreg) 6.25 mg PO BID [facility] Last Admin: 11/30/16 09:57 Dose: 6.25 mg Heparin Sodium (Porcine) (Heparin) 5,000 units IV STAT STA PRN Reason: Protocol Stop: 11/29/16 23:07 Last Admin: 11/29/16 23:37 Dose: 5,000 units Heparin Sodium (Porcine) (Heparin) 3,240 units IV ONCE ONE PRN Reason: Protocol Stop: 11/30/16 09:54 Last Admin: 11/30/16 10:13 Dose: 3,240 units Heparin Sodium (Porcine) (Heparin) 3,240 units IV ONCE ONE PRN Reason: Protocol Stop: 11/30/16 15:10 Last Admin: 11/30/16 15:29 Dose: 3,240 units Sodium Chloride (Sodium Chloride 0.9%) 1,000 mls @ 999 mls/hr IV .Q1H1M STA Stop: 11/29/16 22:19 Last Admin: 11/29/16 21:29 Dose: 999 mls/hr Ceftriaxone Sodium (Rocephin 1 Gram Ivpb) 1 gm in 100 mls @ 200 mls/hr IVPB STAT STA PRN Reason: Protocol Stop: 11/29/16 23:03 Last Admin: 11/29/16 22:53 Dose: 200 mls/hr Sodium Chloride (Sodium Chloride 0.9%) 1,000 mls @ 100 mls/hr IV .Q10H [facility] Last Admin: 11/30/16 00:26 Dose: 100 mls/hr Heparin Sodium/Dextrose (Heparin 25,000 Units/250ml In D5w) 25,000 units in 250 mls @ 10 mls/hr IV .Q24H PRN; Protocol PRN Reason: ADJUST RATE PER PROTOCOL Last Admin: 11/30/16 15:02 Dose: 14 mls/hr Azithromycin (Zithromax 500mg In Ns) 500 mg in 250 mls @ 167 mls/hr IVPB STAT STA PRN Reason: Protocol Stop: 11/30/16 01:26 Last Admin: 11/30/16 02:49 Dose: 167 mls/hr Sodium Chloride (Sodium Chloride 0.9%) 1,000 mls @ 75 mls/hr IV .[id number] [facility] Last Admin: 12/01/16 02:41 Dose: 75 mls/hr Insulin Detemir (Levemir) 45 unit SC HS [facility] Last Admin: 11/30/16 21:40 Dose: 45 unit Insulin Lispro Protam/Lispro Human (Humalog Mix 75/25) 50 units SC ACBD [facility] Methylprednisolone (Solu-Medrol) 125 mg IVP STAT STA Stop: 11/29/16 20:10 Last Admin: 11/29/16 20:51 Dose: 125 mg Sodium Polystyrene Sulfonate (Kayexalate Oral Susp) 30 gm PO STAT STA Stop: 11/29/16 22:35 Last Admin: 11/29/16 22:53 Dose: 30 gm - PA / RELIEF PILOT / Resident Statement DARLING has reviewed & agrees with the documentation as recorded. DARLING has examined the patient and agrees with the treatment plan. <Brent Chatterjee - Last Filed: 11/29/16 22:39> - PA / RELIEF PILOT / Resident Statement DARLING has reviewed & agrees with the documentation as recorded. <Brant Beckford - Last Filed: 12/01/16 16:55> Disposition/Present on Arrival <Brent Chatterjee - Last Filed: 11/29/16 22:39> - Present on Arrival Any Indicators Present on Arrival: No History of DVT/PE: No History of Uncontrolled Diabetes: No Urinary Catheter: No History of Decub. Ulcer: No History Surgical Site Infection Following: None - Disposition Have Diagnosis and Disposition been Completed?: Yes Disposition Time: 22:52 Patient Plan: Observation, Telemetry <Brant Beckford - Last Filed: 12/01/16 16:55> - Disposition Diagnosis: Urinary tract infection, Dehydration, Elevated d-dimer, Shortness of breath, Chest pain, Leukocytosis, Renal failure, Hyperkalemia Disposition: HOSPITALIZED Patient Problems: Current Active Problems Problem Status Onset Chest pain Acute Dehydration Acute Elevated d-dimer Acute Hyperkalemia Acute Leukocytosis Acute Renal failure Acute Shortness of breath Acute Urinary tract infection Acute Condition: GUARDED
[2016-11-29 20:32] LABS: BASO # 0.08 K/mm3 (0.0-2.0); BASO % 0.7 % (0.0-3.0); EOS # 1.8 (0.0-0.7); EOS % 14.9 % (1.5-5.0); GRAN % 62.9 % (50.0-68.0); HEMOGLOBIN 10.8 g/dL (12.0-16.0); LYMPH # 1.9 (1.2-3.4); LYMPH % 15.3 % (22.0-35.0); MEAN CELL VOLUME 91.5 fl (80.0-105.0); MEAN CORPUSCULAR HEMOGLOBIN 29.6 pg (25.0-35.0); MEAN CORPUSCULAR HGB CONC 32.3 g/dl (31.0-37.0); MEAN PLATELET VOLUME 10.6 fl (7.0-11.0); MONO # 0.8 (0.1-0.6); MONO % 6.2 % (1.0-6.0); PLATELET COUNT 258 10^3/uL (120.0-450.0); RBC 3.65 10^6/uL (3.5-6.1); RED CELL DISTRIBUTION WIDTH 16.9 % (11.5-14.5); WHITE BLOOD COUNT 12.3 10^3/ul (4.5-11.0)
[2016-11-29 20:41] LABS: ALB/GLOB RATIO 1.1 (1.1-1.8); ALBUMIN 5.1 g/dL (3.0-4.8); ALT/SGPT 29 U/L (7-56); AST/SGOT 36 U/L (15-39); BLOOD UREA NITROGEN 105 mg/dL (7-21); CALCIUM 11.1 mg/dL (8.4-10.5); GFR AFRICAN-AMERICAN 33; GFR NON-AFRICAN AMERICAN 28
[2016-11-29 20:53] LABS: TROPONIN I < 0.01 ng/mL
[2016-11-29] MEDS ORDERED: Sodium Chloride 0.9% 1,000 ML IV STA (21:19)
[2016-11-29 22:13] LABS: PH,URINE 6.5 (4.7-8.0); URINE BILIRUBIN NEGATIVE (NEGATIVE); URINE BLOOD TRACE-INTACT (NEGATIVE); URINE GLUCOSE (UA) NEGATIVE (NEGATIVE); URINE LEUKOCYTE ESTERASE SMALL Leu/uL (NEGATIVE); URINE NITRATE NEGATIVE (NEGATIVE); URINE PROTEIN 30 mg/dL (<30 mg/dL); URINE UROBILINOGEN 0.2 E.U./dL (<1 E.U./dL)
[2016-11-29 22:15] LABS: INR 1.16 (0.93-1.08); PARTIAL THROMBOPLASTIN TIME 28.9 Seconds (23.7-30.8); PROTHROMBIN TIME 12.5 Seconds (9.9-11.8)
[2016-11-29 22:18] LABS: URINE APPEARANCE SL CLOUDY (CLEAR); URINE COLOR YELLOW (YELLOW)
[2016-11-29 22:29] LABS: URINE BACTERIA MANY (NEG); URINE WBC TNTC /hpf (0-6)
[2016-11-29] MEDS ORDERED: cefTRIAXone 1 gm 1 GM/100 ML BAG IVPB STA (22:34)
[2016-11-29] MEDS ORDERED: Sod Polystyrene Sulf 15 gm/60 ml Oral Susp PO STA (22:34)
[2016-11-29] MEDS ORDERED: Enoxaparin 80 mg Syringe SC STA (22:45)
[2016-11-29] MEDS ORDERED: Sodium Chloride 0.9% 1,000 ML IV SCH ×2 (23:00→23:15)
[2016-11-29] MEDS: Heparin 25,000units in D5W /250 ML BAG IV PRN (23:37)
[2016-11-29] MEDS ORDERED: Azithromycin 500MG/NS 250ml 500 MG/250 ML BAG IVPB STA (23:57)
[2016-11-30] MEDS: Sodium Chloride 0.9% 1,000 ML IV SCH ×2 (05:47→14:32)
[2016-11-30 06:16] VITALS: RESP 20
--- NOTE | 2016-11-30 08:06 | RAD ---
HISTORY: chest pain COMPARISON: 10/27/2016 FINDINGS: LUNGS: Previous right upper lobe infiltrate has resolved. No acute infiltrate. PLEURA: No significant pleural effusion identified, no pneumothorax apparent. CARDIOVASCULAR: Normal. OSSEOUS STRUCTURES: No significant abnormalities. VISUALIZED UPPER ABDOMEN: Normal. OTHER FINDINGS: None. IMPRESSION: No active disease.
[2016-11-30 08:27] LABS: BASO # 0.04 K/mm3 (0.0-2.0); BASO % 0.6 % (0.0-3.0); EOS # 0.1 (0.0-0.7); EOS % 1.8 % (1.5-5.0); GRAN # 5.93 (1.4-6.5); GRAN % 83.5 % (50.0-68.0); HEMOGLOBIN 9.7 g/dL (12.0-16.0); LYMPH % 13.4 % (22.0-35.0); MEAN CELL VOLUME 90.7 fl (80.0-105.0); MEAN PLATELET VOLUME 11.6 fl (7.0-11.0); MONO # 0.1 (0.1-0.6); MONO % 0.7 % (1.0-6.0); PLATELET COUNT 211 10^3/uL (120.0-450.0); RBC 3.34 10^6/uL (3.5-6.1); RED CELL DISTRIBUTION WIDTH 16.7 % (11.5-14.5); WHITE BLOOD COUNT 7.1 10^3/ul (4.5-11.0)
[2016-11-30 08:51] LABS: CALCIUM 9.7 mg/dL (8.4-10.5); MAGNESIUM 1.8 mg/dL (1.7-2.2)
[2016-11-30 08:58] LABS: ALB/GLOB RATIO 1.2 (1.1-1.8); ALBUMIN 4.4 g/dL (3.0-4.8)
[2016-11-30 10:05] LABS: TROPONIN I < 0.01 ng/mL
[2016-11-30] MEDS: Heparin 25,000units in D5W /250 ML BAG IV PRN ×2 (11:31→15:02)
[2016-11-30] MEDS: Pantoprazole 20 mg EC Tab PO SCH (13:16)
[2016-11-30] MEDS: Levalbuterol 1.25 MG/3 ML Inhal Soln UD IH SCH ×2 (13:17→19:54)
[2016-11-30] MEDS: Iron Complex Polysacch 150mg Cap PO SCH (14:32)
[2016-11-30 15:22] LABS: % IRON SATURATION 17 % (20-55); IRON 50 ug/dL (45-180); TOTAL IRON BINDING CAPACITY 297 ug/dL (265-497)
--- NOTE | 2016-11-30 15:57 | CP.PCM.CON ---
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 She has apparently been treated twice in the past month for UTI and this is her 3rd episode. She denies flank pain, no nausea or vomiting, but had subjective fever and chills. She is also complaining of shortness of breath and was recently treated for pneumonia. She had mild non-productive cough. Denies headache or dizziness, no chest pain, no abdominal pain, no diarrhea. Infectious Diseases consult is requested to further evaluate and manage. Review of Systems - Review of Systems All systems: reviewed and no additional remarkable complaints except (as per HPI ) Past Patient History - Infectious Disease Hx of Infectious Diseases: None - Tetanus Immunizations Tetanus Immunization: Unknown - Past Medical History & Family History Past Medical History?: Yes - Past Social History Smoking Status: Never Smoked - CARDIAC Hx Cardiac Disorders: Yes Hx Congestive Heart Failure: Yes Hx Hypertension: No - PULMONARY Hx Respiratory Disorders: Yes Hx Chronic Obstructive Pulmonary Disease (COPD): Yes Hx Pneumonia: Yes - NEUROLOGICAL Hx Neurological Disorder: Yes Hx Dizziness: Yes Other/Comment: Restless leg syndrome. Fibromyalgia - HEENT Hx HEENT Problems: Yes Hx Epistaxis: Yes - RENAL Hx Chronic Kidney Disease: Yes Hx Kidney Stones: Yes - ENDOCRINE/METABOLIC Hx Diabetes Mellitus Type 2: Yes - HEMATOLOGICAL/ONCOLOGICAL Hx Blood Disorders: Yes Hx Anemia: Yes - INTEGUMENTARY Hx Dermatological Problems: Yes - MUSCULOSKELETAL/RHEUMATOLOGICAL Hx Falls: No - GASTROINTESTINAL Hx Gastrointestinal Disorders: Yes - GENITOURINARY/GYNECOLOGICAL Hx Genitourinary Disorders: Yes Hx Incontinence: Yes Hx Urinary Tract Infection: Yes Other/Comment: Endometriosis - PSYCHIATRIC Hx Psychophysiologic Disorder: Yes Hx Anxiety: Yes Hx Depression: Yes Hx Emotional Abuse: No Hx Physical Abuse: No Hx Substance Use: No - SURGICAL HISTORY Hx Appendectomy: Yes Hx Cardiac Catheterization: Yes Hx Coronary Stent: Yes Other/Comment: Abd lap W R oophorectomy & partial L oophrectomy. c section, I & D cellulitis both legs, bilateral axilla, - ANESTHESIA Hx Anesthesia: Yes Hx Anesthesia Reactions: No Hx Malignant Hyperthermia: No Meds Allergies/Adverse Reactions: Allergies Allergy/AdvReac Type Severity Reaction Status Date / Time theophylline Allergy NAUSEA Verified 11/29/16 19:40 - Medications Medications: Current Medications Heparin Sodium/Dextrose (Heparin 25,000 Units/250ml In D5w) 25,000 units in 250 mls @ 10 mls/hr IV .Q24H PRN; Protocol PRN Reason: ADJUST RATE PER PROTOCOL Last Admin: 11/29/16 23:37 Dose: 10 mls/hr Sodium Chloride (Sodium Chloride 0.9%) 1,000 mls @ 75 mls/hr IV .[id number] [facility] Last Admin: 11/30/16 05:47 Dose: Not Given Physical Exam - Constitutional Appears: Non-toxic, No Acute Distress - Head Exam Head Exam: NORMAL INSPECTION - ENT Exam ENT Exam: Mucous Membranes Moist - Neck Exam Neck exam: Negative for: Lymphadenopathy, Meningismus - Respiratory Exam Respiratory Exam: Decreased Breath Sounds - Cardiovascular Exam Cardiovascular Exam: +S1, +S2 - GI/Abdominal Exam GI & Abdominal Exam: Soft. absent: Tenderness Results - Vital Signs Recent Vital Signs: Last Vital Signs Temp 98.4 F 11/30/16 06:00 Pulse 94 H 11/30/16 06:00 Resp 20 11/30/16 06:00 BP 113/57 L 11/30/16 06:00 Pulse Ox 97 11/30/16 06:00 - Labs Result Diagrams: 11/30/16 08:24 11/30/16 08:24 Assessment & Plan - Assessment and Plan (Free Text) Plan: Assessment Probable sepsis due to UTI COPD obesity with BMI 31 fibromyalgia history of UTI's restless leg syndrome history of pneumonia HTN chronic CHF DM history of kidney stones history of endometriosis S/P oophorectomy history of cellulitis of lower extremities Plan Will start patient on Merrem (discussed with Dr. Frank that she has resistant bacteria in her most recent outpatient urine cx) pending urine cx and blood cx in the hospital will monitor clinically
[2016-11-30] MEDS ORDERED: Insulin Lispro (humaLOG) MIX 75/25(10 ml) SC SCH (16:30)
--- NOTE | 2016-11-30 17:10 | NM ---
COMPARISON: November 29, 2016. Single-view chest TECHNIQUE: 30.0 mCi technetium 99-m DTPA aerosol. 4.0 mCI technetium 99-m MAA administered intravenously. FINDINGS: VENTILATION COMPONENT: Heterogeneous ventilation particularly at the lung bases. PERFUSION COMPONENT: Matched peripheral subsegmental perfusion defect anterior segment right upper lobe IMPRESSION: Low probability ventilation perfusion scan for pulmonary embolism.
[2016-11-30] MEDS: FLUVOXAMINE 50 MG PO SCH (17:44)
[2016-11-30] MEDS: Insulin Lispro (humaLOG) MIX 75/25(10 ml) SC SCH (17:48)
[2016-11-30] MEDS: Insulin Reg-HIGH-Coverage SC SCH ×2 (17:48→21:40)
[2016-11-30] MEDS: Meropenem 1g/NS 100mL IVPB 1 GM/100 ML PIGGYBACK IVPB SCH (17:49)
--- NOTE | 2016-11-30 19:50 | CP.PCM.CON ---
History of Present Illness - History of Present Illness History of Present Illness: Hematology consult Requested by Dr. Gregory for possible VTE HPI- Ms Mallory is known to Dr. Dang as outpatient.She is 56 y/o F with h/ o COPD, obesity with BMI 31, fibromyalgia, history of UTI's, restless leg syndrome, history of pneumonia, HTN, chronic CHF, DM, history of kidney stones, history of endometriosis, S/P oophorectomy, history of cellulitis of lower extremities who was admitted to [facility] for recurrent dysuria and suprapubic pain. She was started on IV antibiotics for UTI. She was complaining of chest pain and shortness of breath and her D dimer was found to be elevated. She started anticoagulation for a suspicion for PE. CXR was clear. VQ scan later performed came back as low probability for PE. She received steroids and bronchodilators and her symptoms are getting better now. She follows with Dr. Dang for chronic anemia. She underwent bone marrow biopsy on 11/22/16 that showed normal maturing cells with no evidence of dysplasia. She gets treatment with IV iron and Procrit as outpatient. Family and Social history reviewed. Review of Systems - Review of Systems All systems: reviewed and no additional remarkable complaints except Review of Systems: as in HPI Past Patient History - Infectious Disease Hx of Infectious Diseases: None - Tetanus Immunizations Tetanus Immunization: Unknown - Past Medical History & Family History Past Medical History?: Yes - Past Social History Smoking Status: Never Smoked - CARDIAC Hx Cardiac Disorders: Yes Hx Congestive Heart Failure: Yes Hx Hypertension: No - PULMONARY Hx Respiratory Disorders: Yes Hx Chronic Obstructive Pulmonary Disease (COPD): Yes Hx Pneumonia: Yes - NEUROLOGICAL Hx Neurological Disorder: Yes Hx Dizziness: Yes Other/Comment: Restless leg syndrome. Fibromyalgia - HEENT Hx HEENT Problems: Yes Hx Epistaxis: Yes - RENAL Hx Chronic Kidney Disease: Yes Hx Kidney Stones: Yes - ENDOCRINE/METABOLIC Hx Diabetes Mellitus Type 2: Yes - HEMATOLOGICAL/ONCOLOGICAL Hx Blood Disorders: Yes Hx Anemia: Yes - INTEGUMENTARY Hx Dermatological Problems: Yes - MUSCULOSKELETAL/RHEUMATOLOGICAL Hx Falls: No - GASTROINTESTINAL Hx Gastrointestinal Disorders: Yes - GENITOURINARY/GYNECOLOGICAL Hx Genitourinary Disorders: Yes Hx Incontinence: Yes Hx Urinary Tract Infection: Yes Other/Comment: Endometriosis - PSYCHIATRIC Hx Psychophysiologic Disorder: Yes Hx Anxiety: Yes Hx Depression: Yes Hx Emotional Abuse: No Hx Physical Abuse: No Hx Substance Use: No - SURGICAL HISTORY Hx Appendectomy: Yes Hx Cardiac Catheterization: Yes Hx Coronary Stent: Yes Other/Comment: Abd lap W R oophorectomy & partial L oophrectomy. c section, I & D cellulitis both legs, bilateral axilla, - ANESTHESIA Hx Anesthesia: Yes Hx Anesthesia Reactions: No Hx Malignant Hyperthermia: No Meds Allergies/Adverse Reactions: Allergies Allergy/AdvReac Type Severity Reaction Status Date / Time theophylline Allergy NAUSEA Verified 11/29/16 19:40 - Medications Medications: Current Medications Allopurinol (Zyloprim) 100 mg PO DAILY [facility] Alprazolam (Xanax) 1 mg PO DAILY [facility] PRN Reason: Protocol Stop: 12/08/16 10:01 Aspirin (Ecotrin) 81 mg PO DAILY [facility] Last Admin: 11/30/16 09:58 Dose: 81 mg Atorvastatin Calcium (Lipitor) 20 mg PO DAILY [facility] Last Admin: 11/30/16 09:58 Dose: 20 mg Carvedilol (Coreg) 3.125 mg PO BID [facility] Last Admin: 11/30/16 17:51 Dose: 3.125 mg Clopidogrel Bisulfate (Plavix) 75 mg PO DAILY [facility] Last Admin: 11/30/16 10:17 Dose: 75 mg Gabapentin (Neurontin) 300 mg PO QID [facility] PRN Reason: Protocol Last Admin: 11/30/16 17:49 Dose: 300 mg Heparin Sodium/Dextrose (Heparin 25,000 Units/250ml In D5w) 25,000 units in 250 mls @ 10 mls/hr IV .Q24H PRN; Protocol PRN Reason: ADJUST RATE PER PROTOCOL Last Admin: 11/30/16 15:02 Dose: 14 mls/hr Sodium Chloride (Sodium Chloride 0.9%) 1,000 mls @ 75 mls/hr IV .[id number] [facility] Last Admin: 11/30/16 14:32 Dose: 75 mls/hr Meropenem 1g/NS 100mL IVPB (Meropenem 1g/Ns 100ml Ivpb) 1 gm in 100 mls @ 100 mls/hr IVPB Q12 [facility] PRN Reason: Protocol Stop: 12/07/16 15:47 Last Admin: 11/30/16 17:49 Dose: 100 mls/hr Insulin Detemir (Levemir) 45 unit SC HS [facility] Insulin Human Regular (Humulin R High) 0 units SC ACHS [facility] PRN Reason: Protocol Last Admin: 11/30/16 17:48 Dose: 10 units Insulin Lispro Protam/Lispro Human (Humalog Mix 75/25) 45 units SC ACBD [facility] Last Admin: 11/30/16 17:48 Dose: 45 u Levalbuterol HCl (Xopenex) 1.25 mg IH TIDRESP [facility] Last Admin: 11/30/16 13:17 Dose: 1.25 mg Losartan Potassium (Cozaar) 25 mg PO DAILY [facility] Last Admin: 11/30/16 09:58 Dose: 25 mg Montelukast Sodium (Singulair) 10 mg PO HS [facility] Fluvoxamine [Luvox] (50 Mg) 50 mg PO BID [facility] Last Admin: 11/30/16 17:44 Dose: Not Given Pantoprazole Sodium (Protonix Ec Tab) 20 mg PO DAILY [facility] Last Admin: 11/30/16 13:16 Dose: 20 mg Polysaccharide Iron Complex (Ferrex-150) 150 mg PO DAILY [facility] Last Admin: 11/30/16 14:32 Dose: 150 mg Quetiapine Fumarate (Seroquel Xr) 50 mg PO [facility] PRN Reason: Protocol Physical Exam - Head Exam Head Exam: ATRAUMATIC, NORMAL INSPECTION - Eye Exam Eye Exam: EOMI, PERRL - ENT Exam ENT Exam: Mucous Membranes Moist - Neck Exam Neck exam: Negative for: Lymphadenopathy - Respiratory Exam Respiratory Exam: Rhonchi, NORMAL BREATHING PATTERN - Cardiovascular Exam Cardiovascular Exam: REGULAR RHYTHM - GI/Abdominal Exam GI & Abdominal Exam: Normal Bowel Sounds, Soft. absent: Organomegaly, Tenderness - Extremities Exam Extremities exam: Negative for: pedal edema - Neurological Exam Neurological exam: Alert, Oriented x3 Results - Vital Signs Recent Vital Signs: Last Vital Signs Temp 97.5 F L 11/30/16 18:00 Pulse 100 H 11/30/16 18:00 Resp 20 11/30/16 18:00 BP 143/85 11/30/16 18:00 Pulse Ox 97 11/30/16 06:00 - Labs Result Diagrams: 11/30/16 08:24 11/30/16 08:24 Labs: Laboratory Results - last 24 hr 11/30/16 11/30/16 11/30/16 05:00 05:30 06:00 WBC RBC Hgb Hct MCV MCH MCHC RDW Plt Count MPV Gran % Lymph % (Auto) Beckham % (Auto) Eos % (Auto) Baso % (Auto) Gran # Lymph # Beckham # Eos # Baso # APTT 37.8 H Sodium Potassium Chloride Carbon Dioxide Anion Gap BUN Creatinine Est GFR ( Amer) Est GFR (Non-Af Amer) POC Glucose (mg/dL) Random Glucose Hemoglobin A1c Calcium Phosphorus Magnesium Iron 50 TIBC 297 % Saturation 17 L Total Bilirubin AST ALT Alkaline Phosphatase Lactate Dehydrogenase 495 Total Creatine Kinase 76 Troponin I < 0.01 Total Protein Albumin Globulin Albumin/Globulin Ratio Triglycerides Cholesterol LDL Cholesterol Direct HDL Cholesterol TSH 3rd Generation 11/30/16 11/30/16 11/30/16 07:47 08:24 08:24 WBC 7.1 D RBC 3.34 L Hgb 9.7 L Hct 30.3 L MCV 90.7 MCH 29.0 MCHC 32.0 RDW 16.7 H Plt Count 211 MPV 11.6 H Gran % 83.5 H Lymph % (Auto) 13.4 L Beckham % (Auto) 0.7 L Eos % (Auto) 1.8 Baso % (Auto) 0.6 Gran # 5.93 Lymph # 1.0 L Beckham # 0.1 Eos # 0.1 Baso # 0.04 APTT Sodium 140 Potassium 3.9 Chloride 97 Carbon Dioxide 25 Anion Gap 22 H BUN 91 H Creatinine 1.7 H Est GFR ( Amer) 38 Est GFR (Non-Af Amer) 31 POC Glucose (mg/dL) 348 H Random Glucose 311 H* D Hemoglobin A1c Calcium 9.7 Phosphorus 4.0 Magnesium 1.8 Iron TIBC % Saturation Total Bilirubin 0.4 AST 24 ALT 23 Alkaline Phosphatase 106 Lactate Dehydrogenase Total Creatine Kinase Troponin I Total Protein 8.1 Albumin 4.4 Globulin 3.7 Albumin/Globulin Ratio 1.2 Triglycerides 202 H Cholesterol 275 H LDL Cholesterol Direct 195 H HDL Cholesterol 34 TSH 3rd Generation 11/30/16 11/30/16 11/30/16 08:24 08:24 12:00 WBC RBC Hgb Hct MCV MCH MCHC RDW Plt Count MPV Gran % Lymph % (Auto) Beckham % (Auto) Eos % (Auto) Baso % (Auto) Gran # Lymph # Beckham # Eos # Baso # APTT Sodium Potassium Chloride Carbon Dioxide Anion Gap BUN Creatinine Est GFR ( Amer) Est GFR (Non-Af Amer) POC Glucose (mg/dL) 415 H* Random Glucose Hemoglobin A1c 7.5 H Calcium Phosphorus Magnesium Iron TIBC % Saturation Total Bilirubin AST ALT Alkaline Phosphatase Lactate Dehydrogenase Total Creatine Kinase Troponin I Total Protein Albumin Globulin Albumin/Globulin Ratio Triglycerides Cholesterol LDL Cholesterol Direct HDL Cholesterol TSH 3rd Generation 0.60 11/30/16 11/30/16 14:15 17:40 WBC RBC Hgb Hct MCV MCH MCHC RDW Plt Count MPV Gran % Lymph % (Auto) Beckham % (Auto) Eos % (Auto) Baso % (Auto) Gran # Lymph # Beckham # Eos # Baso # APTT 43.9 H Sodium Potassium Chloride Carbon Dioxide Anion Gap BUN Creatinine Est GFR ( Amer) Est GFR (Non-Af Amer) POC Glucose (mg/dL) 344 H Random Glucose Hemoglobin A1c Calcium Phosphorus Magnesium Iron TIBC % Saturation Total Bilirubin AST ALT Alkaline Phosphatase Lactate Dehydrogenase Total Creatine Kinase Troponin I Total Protein Albumin Globulin Albumin/Globulin Ratio Triglycerides Cholesterol LDL Cholesterol Direct HDL Cholesterol TSH 3rd Generation Assessment & Plan - Assessment and Plan (Free Text) Assessment: Low suspicion for VTE, however, she does mention intermittent leg swelling. I will schedule her for US doppler venous b/l LE. If US is negative for DVT, we can discontinue heparin drip. Her blood counts are overall stable. Will monitor Hb. She received Procrit in office on 11/29/16. MOnitor for bleeding while on heparin drip. Medical management of her COPD and recurrent UTI. Thank you for the consult Diogenes Martinez MD - Date & Time Date: 11/30/16 Time: 19:50
[2016-11-30] MEDS: QUEtiapine 50 mg XR Tab PO SCH (21:35)
--- NOTE | 2016-11-30 21:57 | CON ---
DATE: 11/30/2016 REASON FOR CONSULTATION: Acute kidney injury, UTI, hyperkalemia. HISTORY OF PRESENT ILLNESS: The patient was seen in the office last week. She was complaining of burning in the urine. She was complaining of frequency also. Urinalysis and urine culture were sent as outpatient. Urine culture revealed resistant E. coli, sensitive only to oral Macrobid and other IV agents. She was started on oral Macrobid. She called yesterday complaining of persistent burning in the urine. She was advised to come to the hospital. In the emergency room, she also complained of cough. She reported that she was having some left-sided chest pain for the past 2 days. She reported painful inspiration. In the emergency room, her WBC count was found to be 12,000. She was found to have acute kidney injury, BUN of 105, creatinine of 1.9, also elevated potassium of 5.4. The patient was started on anticoagulation, unclear why she was started on anticoagulation. PAST MEDICAL AND SURGICAL HISTORY: NIDDM, hypertension, hyperlipidemia, chronic kidney disease stage 1, COPD, recurrent UTI, lower extremity edema, CHF. FAMILY HISTORY: Noncontributory. SOCIAL HISTORY: No smoking, no alcohol use, no IV drug abuse. ALLERGIES: THEOPHYLLINE. MEDICATIONS AT HOME: Had been Cozaar 25 mg daily, Coreg 3.125 once a day, Lasix 40 b.i.d., metformin 800 mg t.i.d., Lactobacillus. REVIEW OF SYSTEMS: All systems are reviewed, pertinent positives are mentioned in the history of presenting illness, rest unremarkable. PHYSICAL EXAMINATION GENERAL: On admission, middle-aged lady, sitting in chair, in mild distress secondary to cough. VITAL SIGNS: Blood pressure 118/50, heart rate 111, respiratory rate 20, temperature 98.4. T-max 98.8. HEENT: Normocephalic, atraumatic. Positive pallor. No icterus. NECK: Supple. No JVD. CARDIAC: S1, S2. Regular rate and rhythm. No murmur, no rub. LUNGS: Bilateral equal air entry, bilateral rhonchi, equal expansion, no rales. ABDOMEN: Obese, distended, soft, nontender. Bowel sounds present. EXTREMITIES: 1+ pitting edema of the lower extremities. INTAKE AND OUTPUT: 745/not charted. LABORATORY DATA: WBC 7.1, hemoglobin 9.7, hematocrit 30, platelets 211, 84% polyps. Sodium 140, potassium 3.9, chloride 97, CO2 of 25, BUN 91, creatinine 1.7, glucose 311, calcium 9.7, phosphorus 4.0, magnesium 1.8, albumin 4.4. Cholesterol 275, LDL 195, troponin 0.01. Urinalysis, yellow, slightly cloudy. PH 6.5, specific gravity 1.010, protein 30, glucose negative, ketones negative, blood trace, intact. Leukocyte esterase small. . CURRENT MEDICATIONS: Coreg 6.25 b.i.d., Cozaar 25 daily, Ecotrin, heparin, Lipitor, Plavix, normal saline not given, Kayexalate 1 dose given yesterday, Rocephin. ASSESSMENT: 1. Acute kidney injury superimposed on chronic kidney stage 1, baseline creatinine is 1.1, creatinine clearance was 70 mL per minute in October. 2. Resistant Escherichia coli urinary tract infection. 3. Bronchitis. 4. Non-insulin dependent diabetes mellitus. 5. Diabetic nephropathy, proteinuria, 2 g of proteinuria. 6. Resolved hyperkalemia. 7. Hyperglycemia. 8. Poor controlled diabetes. 9. Cardiomyopathy? 10. Anemia. PLAN: 1. Antibiotics to cover for resistant E. coli. 2. Avoid Kayexalate. 3. Check iron stores and stool occults. 4. Discontinue IV fluids. 5. Push p.o. fluids. 6. Discontinue heparin? Thank you for the courtesy of this consultation. We will follow this patient closely with you. Elva Frank MD
[2016-11-30] MEDS ORDERED: Cefepime 1gm in NS 100ml 1 GM/100 ML BAG IVPB SCH (22:00)
[2016-11-30] MEDS ORDERED: Insulin Detemir 100 units/ml Vial (Levemir) SC SCH (22:00)
--- NOTE | 2016-11-30 23:29 | PN ---
DATE: 11/30/2016 REASON FOR CONSULTATION AND FOLLOWUP: Cardiac evaluation, history of coronary artery disease, admitted with possible UTI, possible pulmonary embolism. BRIEF CLINICAL HISTORY: A 56-year-old female with the past medical history of CAD, status post PTCA, LAD on 03/03/2013, type 2 diabetes, obesity, COPD on home oxygen, and history of chronic anemia, iron infusion, history of status post bone marrow biopsy, who was having recurrent UTI and cloudy urine, recently given Bactrim by Dr. Zhu, and then changed to Levaquin by Dr. Frank, but the patient still having some cloudy urine, so called the PMD and advised to come to the ER for IV antibiotic. In the ER, patient is also complained of funny sensation in the chest, possible VQ was done and she was told that possibly blood clotting the lung. The patient get admitted to telemetry. Denies any chest pain, though she has funny sensation in the chest, denies any shortness of breath, denies any palpitation, but complained of lower abdominal pain and cloudy urine. PAST MEDICAL HISTORY: Significant diabetes, hypertension, coronary artery disease, status post PTCA, LAD,on 03/03/2013, history of obesity, COPD, off and on home oxygen. Recent cardiac workup as follows; the patient did echo on 07/19/2016, ejection fraction 55%, trace MR, trace TR, RV systolic pressure 20, mild to moderate aortic stenosis, as test on 07/19/2016, no ischemia and no change from 2013, by echo also trace MR, trace TR, and RV systolic pressure 20. SOCIAL HISTORY: Denies smoking, denies any history of alcohol abuse. CURRENT MEDICATION: The patient at home was taking metformin 800 mg 3 time a day, vitamin E, vitamin B, Seroquel, Singulair, Cozaar 25 mg daily, Lactobacillus, insulin, gabapentin, Neurontin, Plavix 75 mg, Coreg 6.25 mg daily, albuterol inhaler, aspirin, Xanax p.r.n. REVIEW OF SYSTEMS: As per HPI. PHYSICAL EXAMINATION: VITAL SIGNS: As follows, temperature afebrile, hear rate of 84, blood pressure 113/57. HEENT: PERRLA. Extraocular muscles intact. NECK: Supple. No carotid bruits, no thyromegaly. CHEST: Clear to auscultation. HEART: S1, S2, regular. ABDOMEN: Soft. EXTREMITIES: Clubbing and cyanosis negative. LABORATORY DATA: Blood workup as follows; WBC 7.1, hemoglobin 9.7, hematocrit 30.3, platelet count 211. Chemistry show sodium 140, potassium 3.9, chloride 97, carbon dioxide 25, anion gap of 22, BUN 91, creatinine 1.7. Total protein 8.1, albumin 4.4, albumin/globulin ratio 1.1. IMPRESSION: Acute kidney injury, diabetes, hypertension, hyperlipidemia, obesity, coronary artery diseases, status post percutaneous transluminal coronary angioplasty of left anterior descending on 03/03/2013, obesity, chronic obstructive pulmonary disease on home oxygen, chronic anemia; on iron infusion, monthly; history of recently bone marrow, history of recent echo 07/19/2016, ejection fraction of 55%, trace mitral regurgitation, trace tricuspid regurgitation, right ventricular systolic pressure 20, mild to moderate aortic stenosis, recent stress test on 07/19/2016 rule out be on IV heparin from emergency room. RECOMMENDATION: Follow up CPK and troponin, there is an official report from nuclear medicine, to continue heparin, start Coreg, resume Plavix and aspirin. Lipid profile and TSH, we will follow with you. Thank you Dr. Zhu in participating and taking care of this patient *------*. For UTI as per activities volunteer and primary care doctor *------*. Stephanie Anton MD
--- NOTE | 2016-12-01 01:11 | CARD ---
APPROVED REPORT EKG Measurement Heart [id number] <Conclusion> Normal sinus rhythm Normal ECG
--- NOTE | 2016-12-01 02:33 | HP ---
HISTORY OF PRESENT ILLNESS: The patient is a 56 years old who stated she came back from vacation, she was having some burning micturition followed by hematuria, so she called Dr. Frank who did urine culture on her was found to have UTI. She was given Levaquin. After few days she got a call that she is resistant to that antibiotics she was given another one, name is unknown to her. After 3 days, she got another call that since she is having urinary symptoms again, she was advised to come to emergency room for possible IV antibiotics. She also complains of some cough and left-sided chest pain, denies any fever or chills. No more hematuria. Denies any nausea or vomiting. PAST MEDICAL HISTORY: She had significant past medical history of 1. Hypertension. 2. Hyperlipidemia. 3. COPD. 4. Renal insufficiency. 5. History of pulmonary embolism in her teenage and also history of DVT in the remote past almost 27 years ago. 6. History of insulin dependent diabetes. 7. Coronary artery disease. 8. History of congestive heart failure. 9. History of depression. ALLERGIES: THE PATIENT IS ALLERGIC TO THEOPHYLLINE. MEDICATIONS AT HOME: She is on 1. Luvox. 2. Januvia 100 mg daily. 3. Lantus 45 units at bedtime. 4. NovoLog 45 units before each meal. 5. Atorvastatin 20 mg daily. 6. Lactobacillus. 7. Xanax. 8. Metformin 500 three times a day. 9. Vitamin E. 10. Seroquel 50 mg at bedtime. 11. Protonix 20 mg daily. 12. Losartan 25 daily. 13. Lopid 600 mg twice a day. 14. Plavix 75 daily. SOCIAL HISTORY: Used to be smoker in remote past. Denies alcohol. PHYSICAL EXAMINATION: GENERAL: She looks comfortable, occasional left-sided chest pain. VITAL SIGNS: She is afebrile, pulse 105, respiration 20 and blood pressure 150/78. LUNGS: Bilateral fair airflow. No rhonchi or crackles. HEART: S1 and S2, audible. ABDOMEN: Soft and nontender. No rebound. No guarding. NEUROLOGIC: The patient is awake and alert, able to communicate. Moves all extremities. LABORATORY DATA: WBC is 7.1, hemoglobin 9.7, hematocrit 30.3 and platelet of 211. PT 12.5, INR 1.16, D-dimer 2.02. Chemistry; sodium 140, potassium 3.9, chloride 97, CO2 of 25, BUN 91, creatinine 1.7, blood sugar of 311. Triglyceride 202, total cholesterol 275, LDL is 195. X-ray of the chest, no active disease. Urinalysis few small leukocyte, and WBC is too numerous to count. ASSESSMENT: 1. Multidrug resistant urinary tract infection. 2. Positive D-dimer, rule out pulmonary embolism since she has history of paraproteinemia. 3. Chronic obstructive pulmonary disease. 4. Hypertension. 5. Insulin dependent diabetes. PLAN: We will start her Rocephin to cover for urinary tract infection and urine culture has been sent. We will follow the sensitivity report, ID consult and hematology consult has been requested. Since the patient has positive D-dimer recently diagnosed with paraproteinemia, workup need to be done, awaiting 's input. I will continue her on IV fluid. Monitor her blood sugar. Followup CBC and CMP in a.m. Colt Zhu MD
[2016-12-01] MEDS: Sodium Chloride 0.9% 1,000 ML IV SCH (02:41)
[2016-12-01] MEDS: Levalbuterol 1.25 MG/3 ML Inhal Soln UD IH SCH ×3 (07:35→19:34)
--- NOTE | 2016-12-01 08:11 | US ---
HISTORY: Leg pain and swelling. Evaluate for DVT PHYSICIAN(S): Justin Gonzales MD. TECHNIQUE: Duplex sonography and color-flow Doppler with graded compression were used to evaluate the deep venous systems of both lower extremities. The exam is somewhat limited by edema. FINDINGS: The visualized deep venous systems of both lower extremities are sonographically normal and compressible. Normal wave forms and augmentation are seen. There is no sonographic evidence for deep venous thrombosis in the visualized segments of both lower extremities. IMPRESSION: No sonographic evidence for deep venous thrombosis in the visualized segments of both lower extremities.
--- NOTE | 2016-12-01 08:27 | US ---
PROCEDURE: Ultrasound of the Kidneys HISTORY: rule out hydronephrosis COMPARISON: None available. TECHNIQUE: Sonogram of the kidneys. FINDINGS: RIGHT KIDNEY: Normal in size, contour and echogenicity. No stone, solid mass lesion or hydronephrosis visualized. LEFT KIDNEY: Normal in size, contour and echogenicity. No stone, solid mass lesion or hydronephrosis visualized. OTHER FINDINGS: None. IMPRESSION: Unremarkable renal sonogram.
[2016-12-01] MEDS: Insulin Lispro (humaLOG) MIX 75/25(10 ml) SC SCH ×2 (08:45→17:09)
[2016-12-01] MEDS: FLUVOXAMINE 50 MG PO SCH ×2 (09:56→17:04)
[2016-12-01] MEDS: Insulin Reg-HIGH-Coverage SC SCH ×4 (09:56→22:00)
[2016-12-01] MEDS ORDERED: Enoxaparin 40 mg Syringe SC SCH (10:00)
[2016-12-01] MEDS: Iron Complex Polysacch 150mg Cap PO SCH (10:08)
[2016-12-01] MEDS: Pantoprazole 20 mg EC Tab PO SCH (10:10)
[2016-12-01] MEDS: Meropenem 1g/NS 100mL IVPB 1 GM/100 ML PIGGYBACK IVPB SCH ×2 (10:11→21:29)
[2016-12-01 12:20] LABS: ALB/GLOB RATIO 1.3 (1.1-1.8); ALBUMIN 4.1 g/dL (3.0-4.8); ALT/SGPT 22 U/L (7-56); AST/SGOT 20 U/L (15-39); BLOOD UREA NITROGEN 63 mg/dL (7-21); CALCIUM 9.2 mg/dL (8.4-10.5); GFR AFRICAN-AMERICAN > 60; GFR NON-AFRICAN AMERICAN 52
--- NOTE | 2016-12-01 14:16 | PN ---
DATE: 12/01/2016 REASON FOR CONSULTATION: Cardiac evaluation, history of coronary artery disease, admitted UTI, possible pulmonary embolism, and chest pain. SUBJECTIVE: The patient denies any chest pain, shortness of breath, or any palpitations. PHYSICAL EXAMINATION: GENERAL: The patient is lying flat on bed, not in distress.. VITAL SIGNS: Temperature afebrile, heart rate 92, and blood pressure 106/61. HEENT: PERRLA intact. Extraocular muscles intact. NECK: Supple. No carotid bruit or thyromegaly. CHEST: Clear to auscultation. HEART: S1 and S2 regular. ABDOMEN: Soft. EXTREMITIES: Clubbing or cyanosis negative. LABORATORY DATA: Blood workup as follows; WBC 7.1, hemoglobin 9.7, hematocrit 30.3, and platelet count 211. Chemistry shows sodium 140, potassium 3.9, chloride 97, carbon dioxide 25, anion gap 22, BUN 91, and creatinine 1.7. Troponin 0.01 x2. IMPRESSION: A 56-year-old female with past medical history significant for coronary artery disease, admitted with urinary tract infection, last stent 03/03/2013 was negative. After that, multiple stress test recently 07/19/2016 with negative echo shows trace mitral regurgitation, trace TR, right ventricular systolic pressure 20, admitted with urinary tract infection as told because the patient is on IV antibiotic. The patient also complained of chest pain. So far, no evidence of acute coronary syndrome. D-dimer was positive. V/Q scan was done because CAT scan cannot be done because of renal insufficiency that shows loop probability. The patient started on IV heparin on admission. Ultrasound of the lower extremities no evidence of deep venous thrombosis. RECOMMENDATIONS: Discontinue heparin, start Lovenox, resolved within last night. Continue Lovenox for DVT prophylaxis. We will change to 30 mg daily with renal dose and discontinue telemetry. Thank you Dr. Manzano for providing me the opportunity and thank you Dr. Zhu for providing me the opportunity in taking care of patient, Ashley Mallory. Stephanie Anton MD
[2016-12-01] MEDS: Potassium Chloride 20 mEq ER Tab PO SCH (15:29)
--- NOTE | 2016-12-01 15:45 | PN ---
DATE: 12/01/2016 SUBJECTIVE: The patient is 56 years old, seen and examined, lying in bed, seems to be comfortable, complained of cough and congestion. No nausea, vomiting or diarrhea. No fever, no chills. No hemoptysis, no hematemesis, no hematuria. PHYSICAL EXAMINATION VITAL SIGNS: She is afebrile, pulse 92, respirations 20, blood pressure 106/61 LUNGS: Bilateral fair airflow. No expiratory rhonchi, but complain of having left sided chest pain upon taking deep breath. ABDOMEN Soft, obese, and nontender. No rebound. No guarding. NEUROLOGIC: The patient is awake and alert, able to communicate. LABORATORY DATA: Chemistry: Blood sugar is 159. Blood culture and urine cultures are negative. Urine culture shows contamination and that has to be repeated. Renal ultrasound is negative. Nuclear V/Q scan is low probability. Bilateral leg Doppler negative for DVT. ASSESSMENT: 1. Multidrug resistant urinary tract infection was treated as outpatient, currently urinalysis is inconclusive. 2. Chronic obstructive pulmonary disease. 3. Insulin dependent diabetes. 4. History of nephrolithiasis. 5. Status post bone marrow on 11/22/2016 that shows normal maturation cells. However, some abnormal protein were found, reasons unknown. 6. Acute on chronic kidney disease. PLAN: I will continue patient on IV fluids. Discontinue telemetry. She is off of heparin. Continue Coreg. She is on losartan and aspirin and followup on CBC and CMP. Encourage physical therapy. Her urinalysis will be repeated and discharge plan as per ID recommendation. Colt Zhu MD
[2016-12-01] MEDS ORDERED: Insulin Detemir 100 units/ml Vial (Levemir) SC SCH (18:00)
--- NOTE | 2016-12-01 20:48 | CP.PCM.PN ---
Subjective - Date & Time of Evaluation Date of Evaluation: 12/01/16 Time of Evaluation: 10:05 - Subjective Subjective: Comfortable, not in distress, feeling better, no fevers. Objective - Vital Signs/Intake and Output Vital Signs (last 24 hours): Temp Pulse Resp BP Pulse Ox 98.6 F 92 H 20 106/61 97 12/01/16 06:00 12/01/16 06:00 12/01/16 06:00 12/01/16 06:00 11/30/16 06:00 Intake and Output: 11/30/16 12/01/16 18:59 06:59 Intake Total 3068 900 Balance 3068 900 - Medications Medications: Current Medications Allopurinol (Zyloprim) 100 mg PO DAILY [facility] Alprazolam (Xanax) 1 mg PO DAILY [facility] PRN Reason: Protocol Stop: 12/08/16 10:01 Aspirin (Ecotrin) 81 mg PO DAILY [facility] Last Admin: 11/30/16 09:58 Dose: 81 mg Atorvastatin Calcium (Lipitor) 20 mg PO DAILY [facility] Last Admin: 11/30/16 09:58 Dose: 20 mg Carvedilol (Coreg) 3.125 mg PO BID [facility] Last Admin: 11/30/16 17:51 Dose: 3.125 mg Clopidogrel Bisulfate (Plavix) 75 mg PO DAILY [facility] Last Admin: 11/30/16 10:17 Dose: 75 mg Enoxaparin Sodium (Lovenox) 40 mg SC DAILY [facility] PRN Reason: Protocol Gabapentin (Neurontin) 300 mg PO QID [facility] PRN Reason: Protocol Last Admin: 11/30/16 21:35 Dose: 300 mg Sodium Chloride (Sodium Chloride 0.9%) 1,000 mls @ 75 mls/hr IV .[id number] [facility] Last Admin: 12/01/16 02:41 Dose: 75 mls/hr Meropenem 1g/NS 100mL IVPB (Meropenem 1g/Ns 100ml Ivpb) 1 gm in 100 mls @ 100 mls/hr IVPB Q12 [facility] PRN Reason: Protocol Stop: 12/07/16 15:47 Last Admin: 11/30/16 17:49 Dose: 100 mls/hr Insulin Detemir (Levemir) 45 unit SC HS [facility] Last Admin: 11/30/16 21:40 Dose: 45 unit Insulin Human Regular (Humulin R High) 0 units SC ACHS [facility] PRN Reason: Protocol Last Admin: 11/30/16 21:40 Dose: 2 units Insulin Lispro Protam/Lispro Human (Humalog Mix 75/25) 45 units SC ACBD [facility] Last Admin: 11/30/16 17:48 Dose: 45 u Levalbuterol HCl (Xopenex) 1.25 mg IH TIDRESP [facility] Last Admin: 11/30/16 19:54 Dose: 1.25 mg Losartan Potassium (Cozaar) 25 mg PO DAILY [facility] Last Admin: 11/30/16 09:58 Dose: 25 mg Montelukast Sodium (Singulair) 10 mg PO HS [facility] Last Admin: 11/30/16 21:35 Dose: 10 mg Fluvoxamine [Luvox] (50 Mg) 50 mg PO BID [facility] Last Admin: 11/30/16 17:44 Dose: Not Given Pantoprazole Sodium (Protonix Ec Tab) 20 mg PO DAILY [facility] Last Admin: 11/30/16 13:16 Dose: 20 mg Polysaccharide Iron Complex (Ferrex-150) 150 mg PO DAILY [facility] Last Admin: 11/30/16 14:32 Dose: 150 mg Quetiapine Fumarate (Seroquel Xr) 50 mg PO [facility] PRN Reason: Protocol Last Admin: 11/30/16 21:35 Dose: 50 mg - Labs Labs: 11/30/16 08:24 11/30/16 08:24 PT 12.5 Seconds (9.9-11.8) H 11/29/16 20:27 INR 1.16 (0.93-1.08) H 11/29/16 20:27 APTT 43.9 Seconds (23.7-30.8) H 11/30/16 14:15 - Constitutional Appears: Non-toxic, No Acute Distress - Head Exam Head Exam: NORMAL INSPECTION - Respiratory Exam Respiratory Exam: Decreased Breath Sounds - Cardiovascular Exam Cardiovascular Exam: +S1, +S2 - GI/Abdominal Exam GI & Abdominal Exam: Soft. absent: Tenderness Assessment and Plan - Assessment and Plan (Free Text) Plan: Assessment Probable sepsis due to UTI; multiple species growing from urine cx COPD obesity with BMI 31 fibromyalgia history of UTI's restless leg syndrome history of pneumonia HTN chronic CHF DM history of kidney stones history of endometriosis S/P oophorectomy history of cellulitis of lower extremities Plan continue Merrem day 2 (discussed with Dr. Frank that she has resistant bacteria in her most recent outpatient urine cx); urine cx have been repeated today; blood cx are negative; renal ultrasound is normal will continue to monitor clinically
[2016-12-01] MEDS: QUEtiapine 50 mg XR Tab PO SCH (21:29)
[2016-12-01] MEDS: Insulin Detemir 100 units/ml Vial (Levemir) SC SCH (22:09)
--- NOTE | 2016-12-01 22:29 | PN ---
DATE: 12/01/2016 SUBJECTIVE: The patient was seen sitting in chair. She is awake. She is alert. She is comfortable. She reports feeling better. She denies any burning in the urine. She denies any chest tightness. PHYSICAL EXAMINATION: GENERAL: Middle-aged lady, sitting in chair. VITAL SIGNS: Blood pressure 125/67, heart rate 85, respiratory rate 20, and temperature 98.3. HEENT: Normocephalic, atraumatic. No pallor. No icterus. NECK: Supple. No JVD. LUNGS: Bilateral equal air entry, no rales. CARDIAC: S1, and S2. Regular rate and rhythm. No murmur, no rub. ABDOMEN: Obese, distended, soft, nontender. Bowel sounds present. EXTREMITIES: No lower extremity edema. INTAKE AND OUTPUT: 3968/not charted. LABORATORY DATA: WBC is 7, hemoglobin 9.7, hematocrit 30 and platelet of 211. Sodium 146, potassium 3.3, chloride 104, CO2 of 29, BUN 63, creatinine 1.1, glucose 183, calcium 9.2, AST 20, ALT 22, and albumin 4.1. Urine culture 50-100,000 species, multiple. Blood culture, no growth. Outpatient urine culture, multi-drug resistant E. coli. CURRENT MEDICATIONS: Coreg, Cozaar 25, Ecotrin, iron, fluvoxamine, insulin, Lipitor, meropenem 1 g q. 12, Neurontin, Plavix, Protonix, Seroquel, Singulair, normal saline at 75, Xanax, Xopenex, and Zyloprim. ASSESSMENT: 1. Acute kidney injury resolving, creatinine almost at baseline, underlying chronic kidney disease stage I, creatinine clearance 70 mL/minute. 2. Resistant Escherichia coli urinary tract infection. 3. Sjl-eoancqt-azhceotkh diabetes mellitus. 4. Proteinuria. 5. Hypertension. 6. Anemia. 7. Bronchitis. 8. Hypokalemia. PLAN: 1. Discontinue IV fluids in a.m. 2. Replace potassium orally and IV. 3. Continue antibiotic as per ID recommendation. 4. Continue fingerstick monitoring and insulin coverage. 5. Continue antihypertensive, i.e., Coreg and Cozaar. 6. Avoid nephrotoxins. Elva Frank MD [facility] # [id number]
[2016-12-02] MEDS: Levalbuterol 1.25 MG/3 ML Inhal Soln UD IH SCH ×3 (07:30→19:16)
[2016-12-02 07:48] LABS: BASO # 0.09 K/mm3 (0.0-2.0); BASO % 1.2 % (0.0-3.0); EOS # 0.9 (0.0-0.7); EOS % 12.4 % (1.5-5.0); GRAN # 4.09 (1.4-6.5); GRAN % 55.4 % (50.0-68.0); HEMOGLOBIN 10.4 g/dL (12.0-16.0); LYMPH # 1.8 (1.2-3.4); LYMPH % 24.6 % (22.0-35.0); MEAN CELL VOLUME 92.8 fl (80.0-105.0); MEAN CORPUSCULAR HEMOGLOBIN 28.9 pg (25.0-35.0); MEAN CORPUSCULAR HGB CONC 31.1 g/dl (31.0-37.0); MEAN PLATELET VOLUME 10.8 fl (7.0-11.0); MONO # 0.5 (0.1-0.6); MONO % 6.4 % (1.0-6.0); PLATELET COUNT 235 10^3/uL (120.0-450.0); RED CELL DISTRIBUTION WIDTH 17.4 % (11.5-14.5); WHITE BLOOD COUNT 7.4 10^3/ul (4.5-11.0)
[2016-12-02 08:06] LABS: ALB/GLOB RATIO 1.2 (1.1-1.8); ALBUMIN 4.3 g/dL (3.0-4.8); ALT/SGPT 27 U/L (7-56); AST/SGOT 24 U/L (15-39); BLOOD UREA NITROGEN 44 mg/dL (7-21); CALCIUM 9.8 mg/dL (8.4-10.5); GFR AFRICAN-AMERICAN > 60; GFR NON-AFRICAN AMERICAN 58
[2016-12-02] MEDS: Insulin Lispro (humaLOG) MIX 75/25(10 ml) SC SCH ×2 (08:34→17:02)
[2016-12-02] MEDS: Potassium Chloride 20 mEq ER Tab PO SCH (08:36)
[2016-12-02] MEDS: Insulin Reg-HIGH-Coverage SC SCH ×4 (08:36→21:49)
[2016-12-02] MEDS: Meropenem 1g/NS 100mL IVPB 1 GM/100 ML PIGGYBACK IVPB SCH ×2 (10:06→21:57)
[2016-12-02] MEDS: Insulin Detemir 100 units/ml Vial (Levemir) SC SCH ×2 (10:06→21:49)
[2016-12-02] MEDS: Iron Complex Polysacch 150mg Cap PO SCH (10:07)
[2016-12-02] MEDS: Pantoprazole 20 mg EC Tab PO SCH (10:08)
[2016-12-02] MEDS: FLUVOXAMINE 50 MG PO SCH ×2 (10:10→17:06)
--- NOTE | 2016-12-02 15:36 | PN ---
SUBJECTIVE: The patient is 56-year-old, seen and examined, lying in bed, seemed to be comfortable, complained of occasional cough. No suprapubic discomfort. No nausea or vomiting. No diarrhea. PHYSICAL EXAMINATION VITAL SIGNS: She is afebrile, pulse 92, respirations 20, blood pressure 102/68. LUNGS: Bilateral fair air flow. No rhonchi or crackle. HEART: S1, S2 audible. ABDOMEN: Soft, obese, nontender. No rebound, no guarding. NEUROLOGIC: She is awake and alert, able to communicate. LABORATORY DATA: WBC 7.4, hemoglobin 10.4, hematocrit 33.4 and platelets 235. Chemistry: Sodium 147, potassium 3.9, chloride 107, CO2 of 30, BUN 44, creatinine 1.0, blood sugar 164. Blood culture and urine cultures are negative. Renal ultrasound is unremarkable. Leg Doppler is negative for DVT. V/Q scan is low probability. ASSESSMENT: 1. Multi-drug resistant urinary tract infection, failed outpatient treatment. 2. Chronic obstructive pulmonary disease. 3. Hypertension. 4. Insulin dependent diabetes. 5. Chronic anemia. PLAN: We will continue the patient on current medication. At this point, she is on meropenem. We will continue IV fluid for another 24 hours and we will follow up CMP and probably IV fluid can be discontinued in the a.m.. We will push patient p.o. fluid. Discharge plan according to Dr. Peacock's decision for duration of antibiotics. If she needs 7 to 10 days, we can transfer her to TCU, otherwise she can be discharged home on p.o. antibiotics. Colt Zhu MD
--- NOTE | 2016-12-02 18:19 | CP.PCM.PN ---
Subjective - Date & Time of Evaluation Date of Evaluation: 12/02/16 Time of Evaluation: 12:15 - Subjective Subjective: Comfortable in bed, not in distress, feeling better. Objective - Vital Signs/Intake and Output Vital Signs (last 24 hours): Temp Pulse Resp BP Pulse Ox 97.9 F 87 20 129/80 97 12/02/16 15:54 12/02/16 17:05 12/02/16 15:54 12/02/16 17:05 12/02/16 15:54 - Medications Medications: Current Medications Allopurinol (Zyloprim) 100 mg PO DAILY [facility] Last Admin: 12/02/16 10:08 Dose: 100 mg Alprazolam (Xanax) 1 mg PO DAILY [facility] PRN Reason: Protocol Stop: 12/08/16 10:01 Last Admin: 12/02/16 10:07 Dose: 1 mg Aspirin (Ecotrin) 81 mg PO DAILY [facility] Last Admin: 12/02/16 10:07 Dose: 81 mg Atorvastatin Calcium (Lipitor) 20 mg PO DAILY [facility] Last Admin: 12/02/16 10:08 Dose: 20 mg Carvedilol (Coreg) 3.125 mg PO BID [facility] Last Admin: 12/02/16 17:05 Dose: 3.125 mg Clopidogrel Bisulfate (Plavix) 75 mg PO DAILY [facility] Last Admin: 12/02/16 10:08 Dose: 75 mg Gabapentin (Neurontin) 300 mg PO QID [facility] PRN Reason: Protocol Last Admin: 12/02/16 17:04 Dose: 300 mg Meropenem 1g/NS 100mL IVPB (Meropenem 1g/Ns 100ml Ivpb) 1 gm in 100 mls @ 100 mls/hr IVPB Q12 [facility] PRN Reason: Protocol Stop: 12/07/16 15:47 Last Admin: 12/02/16 10:06 Dose: 100 mls/hr Potassium Chloride 20 meq/ (Sodium Chloride) 1,010 mls @ 75 mls/hr IV .[id number] [facility] Stop: 12/03/16 12:15 Last Admin: 12/02/16 15:16 Dose: 75 mls/hr Insulin Detemir (Levemir) 45 unit SC Q12 [facility] Last Admin: 12/02/16 10:06 Dose: 45 unit Insulin Human Regular (Humulin R High) 0 units SC ACHS [facility] PRN Reason: Protocol Last Admin: 12/02/16 17:03 Dose: 2 units Insulin Lispro Protam/Lispro Human (Humalog Mix 75/25) 45 units SC ACBD [facility] Last Admin: 12/02/16 17:02 Dose: 45 u Levalbuterol HCl (Xopenex) 1.25 mg IH TIDRESP [facility] Last Admin: 12/02/16 13:23 Dose: 1.25 mg Losartan Potassium (Cozaar) 25 mg PO DAILY [facility] Last Admin: 12/02/16 10:07 Dose: 25 mg Montelukast Sodium (Singulair) 10 mg PO HS [facility] Last Admin: 12/01/16 21:29 Dose: 10 mg Fluvoxamine [Luvox] (50 Mg) 50 mg PO BID [facility] Last Admin: 12/02/16 17:06 Dose: Not Given Pantoprazole Sodium (Protonix Ec Tab) 20 mg PO DAILY [facility] Last Admin: 12/02/16 10:08 Dose: 20 mg Polysaccharide Iron Complex (Ferrex-150) 150 mg PO DAILY [facility] Last Admin: 12/02/16 10:07 Dose: 150 mg Potassium Chloride (K-Dur 20 Meq Er Tab) 20 meq PO BRK [facility] Last Admin: 12/02/16 08:36 Dose: 20 meq Quetiapine Fumarate (Seroquel Xr) 50 mg PO HS [facility] PRN Reason: Protocol Last Admin: 12/01/16 21:29 Dose: 50 mg - Labs Labs: 12/02/16 07:15 12/02/16 07:15 PT 12.5 Seconds (9.9-11.8) H 11/29/16 20:27 INR 1.16 (0.93-1.08) H 11/29/16 20:27 APTT 43.9 Seconds (23.7-30.8) H 11/30/16 14:15 - Constitutional Appears: Non-toxic, No Acute Distress - Head Exam Head Exam: NORMAL INSPECTION - ENT Exam ENT Exam: Mucous Membranes Moist - Neck Exam Neck Exam: absent: Lymphadenopathy, Meningismus - Respiratory Exam Respiratory Exam: Decreased Breath Sounds - Cardiovascular Exam Cardiovascular Exam: +S1, +S2 - GI/Abdominal Exam GI & Abdominal Exam: Soft. absent: Tenderness Assessment and Plan - Assessment and Plan (Free Text) Plan: Assessment Probable sepsis due to UTI; multiple species growing from urine cx COPD obesity with BMI 31 fibromyalgia history of UTI's restless leg syndrome history of pneumonia HTN chronic CHF DM history of kidney stones history of endometriosis S/P oophorectomy history of cellulitis of lower extremities Plan continue Merrem day 3 (discussed with Dr. Frank that she has resistant bacteria in her most recent outpatient urine cx); urine cx have been repeated today; blood cx are negative; renal ultrasound is normal - should plan for 7-10 days of antibiotics (day 3 today) will continue to monitor clinically
[2016-12-02] MEDS: QUEtiapine 50 mg XR Tab PO SCH (21:57)
[2016-12-03] MEDS: Insulin Detemir 100 units/ml Vial (Levemir) SC SCH ×3 (02:40→22:00)
[2016-12-03] MEDS: Levalbuterol 1.25 MG/3 ML Inhal Soln UD IH SCH ×3 (07:20→19:35)
[2016-12-03] MEDS: Insulin Reg-HIGH-Coverage SC SCH ×4 (08:09→21:59)
[2016-12-03 08:30] LABS: ALB/GLOB RATIO 1.2 (1.1-1.8); ALBUMIN 4.2 g/dL (3.0-4.8); ALT/SGPT 17 U/L (7-56); AST/SGOT 23 U/L (15-39); BLOOD UREA NITROGEN 34 mg/dL (7-21); CALCIUM 10.1 mg/dL (8.4-10.5); GFR AFRICAN-AMERICAN > 60; GFR NON-AFRICAN AMERICAN > 60
[2016-12-03] MEDS: Insulin Lispro (humaLOG) MIX 75/25(10 ml) SC SCH ×2 (08:47→17:05)
[2016-12-03] MEDS: Meropenem 1g/NS 100mL IVPB 1 GM/100 ML PIGGYBACK IVPB SCH ×2 (09:21→22:00)
[2016-12-03] MEDS: Potassium Chloride 20 mEq ER Tab PO SCH (09:33)
[2016-12-03] MEDS: Pantoprazole 20 mg EC Tab PO SCH (09:34)
[2016-12-03] MEDS: Iron Complex Polysacch 150mg Cap PO SCH (09:34)
[2016-12-03] MEDS: FLUVOXAMINE 50 MG PO SCH ×2 (09:42→17:03)
--- NOTE | 2016-12-03 14:02 | PN ---
DATE: 12/03/2016 SUBJECTIVE: The patient is feeling much better. Her urinary symptoms has improved and also her overall strength has improved. She denies any active bleeding, but she is very concern about her current UTI especially as they have been resistant to multiple antibiotics. PHYSICAL EXAMINATION GENERAL: The patient is a middle-aged female who is sitting up in bed in no acute distress. VITAL SIGNS: Her vitals are stable today with a temperature of 98.2, pulse of 95,respiratory rate of 20 and blood pressure of 119/77. HEAD: Normocephalic and atraumatic. EYES: Pupils are equal, round and reactive to light and accommodation. Extraocular muscles are intact. There was some pallor. No icterus is noted. NECK: Supple with no adenopathy. No JVD. No thyromegaly. LUNGS: Clear to auscultation bilaterally with no rales or rhonchi. CARDIOVASCULAR: S1 and S2 is heard. ABDOMEN: Positive bowel sounds, soft, nontender,and nondistended. No organomegaly is palpated. EXTREMITIES: There is no edema, clubbing or cyanosis. LABORATORY DATA: Revealed a white count of 7.4, hemoglobin of 10.4, hematocrit of 33.4, and platelet count of 235. Chemistries revealed BUN and creatinine of 34 and 0.9. ASSESSMENT AND PLAN: Middle-aged female with recent multiple urinary tract infections, also had a change in her renal function, there was a concern for multiple myeloma. Bone marrow done as an outpatient does not reveal any multiple myeloma. She is anemic secondary to multiple medical issues. At this point has been started on Procrit as an outpatient, also has been getting IV iron though as needed though ferritin now is well above as needed. Continue current management for the urinary tract infections as per infections disease. The patient is to follow up with me as an outpatient once discharged. Thank you for the consult. We will follow. Esther Dang MD
--- NOTE | 2016-12-03 15:47 | CP.PCM.CON ---
History of Present Illness - History of Present Illness History of Present Illness: 56 year old woman with PMH of COPD, obesity with BMI 31, fibromyalgia, history of UTI's, restless leg syndrome, history of pneumonia, HTN, chronic CHF, DM, history of kidney stones, history of endometriosis, S/P oophorectomy, history of cellulitis of lower extremities seen at bedside complaining of ulcer and callus formation to toes on both feet. Patient states that she recently returned from vacation where she did some hiking and subsequently developed the ulcerations and calluses. Patient states that she is known to Dr. Bills and Dr. Little and that Dr. Little gave her Silvadene to place on her wounds which she has been doing regularly. Patient denies noticing any periwound erythema, malodor, or drainage from any of the ulcer sites. Patient denies any further pedal complaints at this time. Patient denies N/V/F/C/CP/SOB Review of Systems - Review of Systems Review of Systems: ROS unremarkable outside of HPI Past Patient History - Infectious Disease Hx of Infectious Diseases: None - Tetanus Immunizations Tetanus Immunization: Unknown - Past Medical History & Family History Past Medical History?: Yes - Past Social History Smoking Status: Never Smoked - CARDIAC Hx Cardiac Disorders: Yes Hx Congestive Heart Failure: Yes Hx Hypertension: No - PULMONARY Hx Respiratory Disorders: Yes Hx Chronic Obstructive Pulmonary Disease (COPD): Yes Hx Pneumonia: Yes - NEUROLOGICAL Hx Neurological Disorder: Yes Hx Dizziness: Yes Other/Comment: Restless leg syndrome. Fibromyalgia - HEENT Hx HEENT Problems: Yes Hx Epistaxis: Yes - RENAL Hx Chronic Kidney Disease: Yes Hx Kidney Stones: Yes - ENDOCRINE/METABOLIC Hx Diabetes Mellitus Type 2: Yes - HEMATOLOGICAL/ONCOLOGICAL Hx Blood Disorders: Yes Hx Anemia: Yes - INTEGUMENTARY Hx Dermatological Problems: Yes - MUSCULOSKELETAL/RHEUMATOLOGICAL Hx Falls: No - GASTROINTESTINAL Hx Gastrointestinal Disorders: Yes - GENITOURINARY/GYNECOLOGICAL Hx Genitourinary Disorders: Yes Hx Incontinence: Yes Hx Urinary Tract Infection: Yes Other/Comment: Endometriosis - PSYCHIATRIC Hx Psychophysiologic Disorder: Yes Hx Anxiety: Yes Hx Depression: Yes Hx Emotional Abuse: No Hx Physical Abuse: No Hx Substance Use: No - SURGICAL HISTORY Hx Appendectomy: Yes Hx Cardiac Catheterization: Yes Hx Coronary Stent: Yes Other/Comment: Abd lap W R oophorectomy & partial L oophrectomy. c section, I & D cellulitis both legs, bilateral axilla, - ANESTHESIA Hx Anesthesia: Yes Hx Anesthesia Reactions: No Hx Malignant Hyperthermia: No Meds Allergies/Adverse Reactions: Allergies Allergy/AdvReac Type Severity Reaction Status Date / Time theophylline Allergy NAUSEA Verified 11/29/16 19:40 - Medications Medications: Current Medications Allopurinol (Zyloprim) 100 mg PO DAILY [facility] Last Admin: 12/03/16 09:33 Dose: 100 mg Alprazolam (Xanax) 1 mg PO DAILY [facility] PRN Reason: Protocol Stop: 12/08/16 10:01 Last Admin: 12/03/16 09:33 Dose: 1 mg Aspirin (Ecotrin) 81 mg PO DAILY [facility] Last Admin: 12/03/16 09:34 Dose: 81 mg Atorvastatin Calcium (Lipitor) 20 mg PO DAILY [facility] Last Admin: 12/03/16 09:33 Dose: 20 mg Carvedilol (Coreg) 3.125 mg PO BID [facility] Last Admin: 12/03/16 09:34 Dose: 3.125 mg Clopidogrel Bisulfate (Plavix) 75 mg PO DAILY [facility] Last Admin: 12/03/16 09:34 Dose: 75 mg Gabapentin (Neurontin) 300 mg PO QID [facility] PRN Reason: Protocol Last Admin: 12/03/16 14:32 Dose: 300 mg Meropenem 1g/NS 100mL IVPB (Meropenem 1g/Ns 100ml Ivpb) 1 gm in 100 mls @ 100 mls/hr IVPB Q12 [facility] PRN Reason: Protocol Stop: 12/07/16 15:47 Last Admin: 12/03/16 09:21 Dose: 100 mls/hr Iron Sucrose 200 mg/ Sodium (Chloride) 110 mls @ 110 mls/hr IVPB DAILY [facility] Stop: 12/07/16 10:59 Insulin Detemir (Levemir) 45 unit SC Q12 [facility] Last Admin: 12/03/16 09:21 Dose: 45 unit Insulin Human Regular (Humulin R High) 0 units SC ACHS [facility] PRN Reason: Protocol Last Admin: 12/03/16 12:02 Dose: 4 units Insulin Lispro Protam/Lispro Human (Humalog Mix 75/25) 45 units SC ACBD [facility] Last Admin: 12/03/16 08:47 Dose: 45 u Levalbuterol HCl (Xopenex) 1.25 mg IH TIDRESP [facility] Last Admin: 12/03/16 13:55 Dose: 1.25 mg Losartan Potassium (Cozaar) 25 mg PO DAILY [facility] Last Admin: 12/03/16 09:33 Dose: 25 mg Montelukast Sodium (Singulair) 10 mg PO HS [facility] Last Admin: 12/02/16 21:57 Dose: 10 mg Fluvoxamine [Luvox] (50 Mg) 50 mg PO BID [facility] Last Admin: 12/03/16 09:42 Dose: Not Given Pantoprazole Sodium (Protonix Ec Tab) 20 mg PO DAILY [facility] Last Admin: 12/03/16 09:34 Dose: 20 mg Polysaccharide Iron Complex (Ferrex-150) 150 mg PO DAILY [facility] Last Admin: 12/03/16 09:34 Dose: 150 mg Quetiapine Fumarate (Seroquel Xr) 50 mg PO [facility] PRN Reason: Protocol Last Admin: 12/02/16 21:57 Dose: 50 mg Physical Exam - Constitutional Appears: Well, Non-toxic, No Acute Distress - Extremities Exam Additional comments: LE focused exam: Vasc: DP/PT pulses palpable 2/4 b/l. CFT < 3 seconds to all digits. Skin temperature warm to warm from proximal to distal b/l Neuro: Epicritic and protective sensation grossly absent b/l Derm: Left foot first digit: Approx. 0.3 x 0.3 Bailey grade 2 ulceration noted to distal tip of toe. Hyperkeratotic tissue noted to periwound area absent of erythema. No drainage, malodor or other clinical signs of infection noted at this time. Left foot second digit: Hyperkeratotic tissue noted to distal tip of toe. No open lesions or fissures noted at this time. Right foot second digit: Hyperkeratotic tissue noted to distal tip of toe with underlying ulceration present. No clinical signs of infection noted at this time MSK: Muscle strength 5/5 to all major muscle groups b/l - Neurological Exam Neurological exam: Alert, Oriented x3 - Psychiatric Exam Psychiatric exam: Normal Affect, Normal Mood Results - Vital Signs Recent Vital Signs: Last Vital Signs Temp 98.2 F 12/03/16 07:30 Pulse 95 H 12/03/16 09:34 Resp 20 12/03/16 07:30 BP 119/77 12/03/16 09:34 Pulse Ox 98 12/03/16 07:30 - Labs Result Diagrams: 12/02/16 07:15 12/03/16 07:10 Labs: Laboratory Results - last 24 hr 12/02/16 12/02/16 12/02/16 15:55 20:59 22:07 Sodium Potassium Chloride Carbon Dioxide Anion Gap BUN Creatinine Est GFR ( Amer) Est GFR (Non-Af Amer) POC Glucose (mg/dL) 155 H 76 72 Random Glucose Calcium Total Bilirubin AST ALT Alkaline Phosphatase Total Protein Albumin Globulin Albumin/Globulin Ratio Stool Occult Blood 12/03/16 12/03/16 07:10 13:21 Sodium 147 Potassium 4.2 Chloride 107 Carbon Dioxide 28 Anion Gap 16 BUN 34 H Creatinine 0.9 Est GFR ( Amer) > 60 Est GFR (Non-Af Amer) > 60 POC Glucose (mg/dL) Random Glucose 124 H Calcium 10.1 Total Bilirubin 0.5 AST 23 ALT 17 Alkaline Phosphatase 78 Total Protein 7.6 Albumin 4.2 Globulin 3.4 Albumin/Globulin Ratio 1.2 Stool Occult Blood Negative Assessment & Plan - Assessment and Plan (Free Text) Assessment: 56 year old female seen at bedside for b/l distal toe callus formation and ulceration secondary to diabetic neuropathy Plan: Patient seen and evaluated at bedside Charts, labs and vitals reviewed; afebrile Right second digit dressed with silvadene and bandaid, left first digit dressed with silvadene, DSD Patient advised to keep dressing C/D/I Continue IV abx per ID Podiatry will continue to follow while patient is in house - Date & Time Date: 12/03/16 Time: 15:57
--- NOTE | 2016-12-03 18:24 | CP.PCM.PN ---
Subjective - Date & Time of Evaluation Date of Evaluation: 12/03/16 Time of Evaluation: 11:55 - Subjective Subjective: Comfortable, no more dysuria. No fevers. Objective - Vital Signs/Intake and Output Vital Signs (last 24 hours): Temp Pulse Resp BP Pulse Ox 98.2 F 95 H 20 119/77 98 12/03/16 07:30 12/03/16 09:34 12/03/16 07:30 12/03/16 09:34 12/03/16 07:30 Intake and Output: 12/03/16 12/03/16 06:59 18:59 Intake Total 1720 Balance 1720 - Medications Medications: Current Medications Allopurinol (Zyloprim) 100 mg PO DAILY [facility] Last Admin: 12/03/16 09:33 Dose: 100 mg Alprazolam (Xanax) 1 mg PO DAILY [facility] PRN Reason: Protocol Stop: 12/08/16 10:01 Last Admin: 12/03/16 09:33 Dose: 1 mg Aspirin (Ecotrin) 81 mg PO DAILY [facility] Last Admin: 12/03/16 09:34 Dose: 81 mg Atorvastatin Calcium (Lipitor) 20 mg PO DAILY [facility] Last Admin: 12/03/16 09:33 Dose: 20 mg Carvedilol (Coreg) 3.125 mg PO BID [facility] Last Admin: 12/03/16 09:34 Dose: 3.125 mg Clopidogrel Bisulfate (Plavix) 75 mg PO DAILY [facility] Last Admin: 12/03/16 09:34 Dose: 75 mg Gabapentin (Neurontin) 300 mg PO QID [facility] PRN Reason: Protocol Last Admin: 12/03/16 09:33 Dose: 300 mg Meropenem 1g/NS 100mL IVPB (Meropenem 1g/Ns 100ml Ivpb) 1 gm in 100 mls @ 100 mls/hr IVPB Q12 [facility] PRN Reason: Protocol Stop: 12/07/16 15:47 Last Admin: 12/03/16 09:21 Dose: 100 mls/hr Potassium Chloride 20 meq/ (Sodium Chloride) 1,010 mls @ 75 mls/hr IV .[id number] [facility] Stop: 12/03/16 12:15 Last Admin: 12/03/16 02:00 Dose: 75 mls/hr Insulin Detemir (Levemir) 45 unit SC Q12 [facility] Last Admin: 12/03/16 09:21 Dose: 45 unit Insulin Human Regular (Humulin R High) 0 units SC ACHS [facility] PRN Reason: Protocol Last Admin: 12/03/16 08:09 Dose: Not Given Insulin Lispro Protam/Lispro Human (Humalog Mix 75/25) 45 units SC ACBD [facility] Last Admin: 12/03/16 08:47 Dose: 45 u Levalbuterol HCl (Xopenex) 1.25 mg IH TIDRESP [facility] Last Admin: 12/03/16 07:20 Dose: 1.25 mg Losartan Potassium (Cozaar) 25 mg PO DAILY [facility] Last Admin: 12/03/16 09:33 Dose: 25 mg Montelukast Sodium (Singulair) 10 mg PO HS [facility] Last Admin: 12/02/16 21:57 Dose: 10 mg Fluvoxamine [Luvox] (50 Mg) 50 mg PO BID [facility] Last Admin: 12/03/16 09:42 Dose: Not Given Pantoprazole Sodium (Protonix Ec Tab) 20 mg PO DAILY [facility] Last Admin: 12/03/16 09:34 Dose: 20 mg Polysaccharide Iron Complex (Ferrex-150) 150 mg PO DAILY [facility] Last Admin: 12/03/16 09:34 Dose: 150 mg Potassium Chloride (K-Dur 20 Meq Er Tab) 20 meq PO BRK [facility] Last Admin: 12/03/16 09:33 Dose: 20 meq Quetiapine Fumarate (Seroquel Xr) 50 mg PO HS [facility] PRN Reason: Protocol Last Admin: 12/02/16 21:57 Dose: 50 mg - Labs Labs: 12/02/16 07:15 12/03/16 07:10 PT 12.5 Seconds (9.9-11.8) H 11/29/16 20:27 INR 1.16 (0.93-1.08) H 11/29/16 20:27 APTT 43.9 Seconds (23.7-30.8) H 11/30/16 14:15 - Constitutional Appears: Non-toxic, No Acute Distress - Head Exam Head Exam: NORMAL INSPECTION - ENT Exam ENT Exam: Mucous Membranes Moist - Neck Exam Neck Exam: absent: Lymphadenopathy, Meningismus - Respiratory Exam Respiratory Exam: Decreased Breath Sounds - Cardiovascular Exam Cardiovascular Exam: +S1, +S2 - GI/Abdominal Exam GI & Abdominal Exam: Soft. absent: Tenderness Assessment and Plan - Assessment and Plan (Free Text) Plan: Assessment Probable sepsis due to UTI; multiple species growing from urine cx COPD obesity with BMI 31 fibromyalgia history of UTI's restless leg syndrome history of pneumonia HTN chronic CHF DM history of kidney stones history of endometriosis S/P oophorectomy history of cellulitis of lower extremities Plan continue Merrem day 4 (discussed with Dr. Frank that she has resistant bacteria in her most recent outpatient urine cx); urine cx have been repeated today; blood cx are negative; renal ultrasound is normal - should plan for 7-10 days of antibiotics (day 4 today) will continue to monitor clinically would suggest Urology evaluation
[2016-12-03] MEDS: QUEtiapine 50 mg XR Tab PO SCH (22:01)
--- NOTE | 2016-12-03 23:06 | PN ---
SUBJECTIVE: The patient is seen sitting in chair. She is awake, she is alert, she is comfortable. She denies any pain. She denies any shortness of breath. PHYSICAL EXAMINATION: GENERAL: Middle-aged lady, sitting in chair. VITAL SIGNS: Blood pressure 129/77, heart rate 95, respiratory rate 18, temperature 98.1. HEENT: Normocephalic, atraumatic. NECK: Supple. No JVD. LUNGS: Bilateral equal air entry, bilateral equal expansion. No rales. CARDIAC: S1 and S2, regular rate and rhythm. No murmur, no rub. ABDOMEN: Distended, obese. Bowel sounds present. EXTREMITIES: No lower extremity edema. INTAKE AND OUTPUT: 1720/not charted. LABORATORY DATA: WBC 7.4, hemoglobin 10.4, hematocrit 33.4, platelet 235. Sodium 147, potassium 4.2, chloride 107, CO2 28, BUN 34, creatinine 0.9, glucose 124, calcium 10.1. CURRENT MEDICATIONS: Coreg 3.125 mg b.i.d., losartan 25 mg, Ecotrin 81 mg, insulin, potassium 20 mEq daily, Levemir,Lipitor, meropenem 1 g q. 12, Neurontin, Plavix, Protonix. ASSESSMENT AND PLAN: 1. Resolving acute kidney injury. 2. Underlying chronic kidney disease *------*. 3. Multidrug resistant Escherichia coli urinary tract infection. 4. Bnh-dmiinxa-dzaxfcvpf diabetes mellitus. 5. Diabetic nephropathy. 6. Hypertension. 7. Chronic anemia. PLAN: 1. Venofer 200 mg IV piggyback. 2. Continue Cozaar for renal protection. 3. Discontinue IV flu ids. 4. Antibiotic as per ID recommendations. 5. Close outpatient followup. Elva Frank MD
--- NOTE | 2016-12-04 04:52 | PN ---
DATE: 12/03/2016 SUBJECTIVE: The patient has no complaints of any chest pain. No shortness of breath. No headaches or dizziness. PHYSICAL EXAMINATION: VITAL SIGNS: Temperature is 97.5, pulse is 93, blood pressure is 142/79 and respirations 20. GENERAL: The patient is lying in bed, flat, comfortable. HEENT: No oral lesion. Anicteric sclerae. Moist mucosa. NECK: No JVD, adenopathy, or thyromegaly. CARDIOVASCULAR: S1 and S2, regular. No murmurs, rubs, or gallops. LUNGS: Clear to auscultation bilaterally. No wheeze, rales, or rhonchi. ABDOMEN: Bowel sounds are positive, soft, nontender and nondistended. EXTREMITIES: No cyanosis, clubbing or edema. ASSESSMENT: 1. Acute kidney injury, resolved. 2. Urinary tract infection secondary to Escherichia coli. 3. Diabetes type 2. 4. Hypertension. 5. Chronic obstructive pulmonary disease. 6. Chronic anemia. PLAN: The patient is comfortable. She is on iron orally. The patient is going to continue with aspirin. She is on Losartan for her hypertension. She is on Lipitor for her dyslipidemia. She is receiving IV iron. The patient is going to continue with Plavix. She is on meropenem for antibiotics. She is on Xanax for anxiety. She is on allopurinol. Last blood sugar this morning was 208. Jens Singh MD
[2016-12-04] MEDS: Levalbuterol 1.25 MG/3 ML Inhal Soln UD IH SCH ×2 (07:20→13:29)
[2016-12-04] MEDS: Insulin Lispro (humaLOG) MIX 75/25(10 ml) SC SCH ×2 (08:35→17:15)
[2016-12-04] MEDS: Insulin Reg-HIGH-Coverage SC SCH ×3 (08:37→17:15)
[2016-12-04] MEDS: Pantoprazole 20 mg EC Tab PO SCH (10:22)
[2016-12-04] MEDS: Iron Complex Polysacch 150mg Cap PO SCH (10:23)
[2016-12-04] MEDS: Insulin Detemir 100 units/ml Vial (Levemir) SC SCH (10:23)
[2016-12-04] MEDS: Meropenem 1g/NS 100mL IVPB 1 GM/100 ML PIGGYBACK IVPB SCH (10:25)
[2016-12-04] MEDS: FLUVOXAMINE 50 MG PO SCH ×2 (14:13→17:18)
--- NOTE | 2016-12-04 15:34 | CP.PCM.PN ---
Subjective - Date & Time of Evaluation Date of Evaluation: 12/04/16 Time of Evaluation: 12:35 - Subjective Subjective: Comfortable, no dysuria, no fevers. Objective - Vital Signs/Intake and Output Vital Signs (last 24 hours): Temp Pulse Resp BP Pulse Ox 98.6 F 92 H 20 114/66 96 12/04/16 07:30 12/04/16 10:21 12/04/16 07:30 12/04/16 10:21 12/04/16 07:30 Intake and Output: 12/04/16 12/04/16 06:59 18:59 Intake Total 1000 Output Total 2 Balance 998 - Medications Medications: Current Medications Allopurinol (Zyloprim) 100 mg PO DAILY [facility] Last Admin: 12/04/16 10:22 Dose: 100 mg Alprazolam (Xanax) 1 mg PO DAILY [facility] PRN Reason: Protocol Stop: 12/08/16 10:01 Last Admin: 12/04/16 10:19 Dose: 1 mg Aspirin (Ecotrin) 81 mg PO DAILY [facility] Last Admin: 12/04/16 10:22 Dose: 81 mg Atorvastatin Calcium (Lipitor) 20 mg PO DAILY [facility] Last Admin: 12/04/16 10:22 Dose: 20 mg Carvedilol (Coreg) 3.125 mg PO BID [facility] Last Admin: 12/04/16 10:21 Dose: 3.125 mg Clopidogrel Bisulfate (Plavix) 75 mg PO DAILY [facility] Last Admin: 12/04/16 10:23 Dose: 75 mg Gabapentin (Neurontin) 300 mg PO QID [facility] PRN Reason: Protocol Last Admin: 12/04/16 10:21 Dose: 300 mg Meropenem 1g/NS 100mL IVPB (Meropenem 1g/Ns 100ml Ivpb) 1 gm in 100 mls @ 100 mls/hr IVPB Q12 [facility] PRN Reason: Protocol Stop: 12/07/16 15:47 Last Admin: 12/04/16 10:25 Dose: 100 mls/hr Iron Sucrose 200 mg/ Sodium (Chloride) 110 mls @ 110 mls/hr IVPB DAILY [facility] Stop: 12/07/16 10:59 Last Admin: 12/03/16 16:28 Dose: 110 mls/hr Insulin Detemir (Levemir) 45 unit SC Q12 [facility] Last Admin: 12/04/16 10:23 Dose: 45 unit Insulin Human Regular (Humulin R High) 0 units SC ACHS [facility] PRN Reason: Protocol Last Admin: 12/04/16 08:37 Dose: Not Given Insulin Lispro Protam/Lispro Human (Humalog Mix 75/25) 45 units SC ACBD [facility] Last Admin: 12/04/16 08:35 Dose: 45 u Levalbuterol HCl (Xopenex) 1.25 mg IH TIDRESP [facility] Last Admin: 12/04/16 07:20 Dose: 1.25 mg Losartan Potassium (Cozaar) 25 mg PO DAILY [facility] Last Admin: 12/04/16 10:21 Dose: 25 mg Montelukast Sodium (Singulair) 10 mg PO HS [facility] Last Admin: 12/03/16 22:01 Dose: 10 mg Fluvoxamine [Luvox] (50 Mg) 50 mg PO BID [facility] Last Admin: 12/03/16 17:03 Dose: Not Given Pantoprazole Sodium (Protonix Ec Tab) 20 mg PO DAILY [facility] Last Admin: 12/04/16 10:22 Dose: 20 mg Polysaccharide Iron Complex (Ferrex-150) 150 mg PO DAILY [facility] Last Admin: 12/04/16 10:23 Dose: 150 mg Quetiapine Fumarate (Seroquel Xr) 50 mg PO [facility] PRN Reason: Protocol Last Admin: 12/03/16 22:01 Dose: 50 mg - Labs Labs: 12/02/16 07:15 12/03/16 07:10 PT 12.5 Seconds (9.9-11.8) H 11/29/16 20:27 INR 1.16 (0.93-1.08) H 11/29/16 20:27 APTT 43.9 Seconds (23.7-30.8) H 11/30/16 14:15 - Constitutional Appears: Non-toxic, No Acute Distress - Head Exam Head Exam: NORMAL INSPECTION - ENT Exam ENT Exam: Mucous Membranes Moist - Neck Exam Neck Exam: absent: Lymphadenopathy, Meningismus - Respiratory Exam Respiratory Exam: Decreased Breath Sounds - Cardiovascular Exam Cardiovascular Exam: +S1, +S2 - GI/Abdominal Exam GI & Abdominal Exam: Soft. absent: Tenderness Assessment and Plan - Assessment and Plan (Free Text) Plan: Assessment Probable sepsis due to UTI; multiple species growing from urine cx; urine cx taken from Dr. Frank's office shows E. coli which is resistant to many antibiotics but sensitive to Imipenem (but not ESBL-producing) COPD obesity with BMI 31 fibromyalgia history of UTI's restless leg syndrome history of pneumonia HTN chronic CHF DM history of kidney stones history of endometriosis S/P oophorectomy history of cellulitis of lower extremities Plan continue Merrem day 5 (discussed with Dr. Frank that she has resistant bacteria in her most recent outpatient urine cx); urine cx have been repeated today; blood cx are negative; renal ultrasound is normal - should plan for 7-10 days of antibiotics (day 5 today) - discussed with Dr. Zhu will continue to monitor clinically would suggest Urology evaluation
[2016-12-04 16:15] VITALS: TEMP 97.8; O2SAT 98
--- NOTE | 2016-12-04 16:50 | CP.PCM.PN ---
Subjective - Date & Time of Evaluation Date of Evaluation: 12/04/16 Time of Evaluation: 16:50 - Subjective Subjective: 56 year old female molly t bedside with Dr. Bills concerning bilateral digital ulcerations. Pt has noted minor drainage through dressing. No overnight f/c/cp/sob/n/v. Pt has no new pedal complaints. Pt is in good spirits. Objective - Vital Signs/Intake and Output Vital Signs (last 24 hours): Temp Pulse Resp BP Pulse Ox 97.8 F 94 H 20 150/87 98 12/04/16 16:00 12/04/16 16:00 12/04/16 16:00 12/04/16 16:00 12/04/16 16:00 Intake and Output: 12/04/16 12/04/16 06:59 18:59 Intake Total 1000 600 Output Total 2 Balance 998 600 - Medications Medications: Current Medications Allopurinol (Zyloprim) 100 mg PO DAILY [facility] Last Admin: 12/04/16 10:22 Dose: 100 mg Alprazolam (Xanax) 1 mg PO DAILY [facility] PRN Reason: Protocol Stop: 12/08/16 10:01 Last Admin: 12/04/16 10:19 Dose: 1 mg Aspirin (Ecotrin) 81 mg PO DAILY [facility] Last Admin: 12/04/16 10:22 Dose: 81 mg Atorvastatin Calcium (Lipitor) 20 mg PO DAILY [facility] Last Admin: 12/04/16 10:22 Dose: 20 mg Carvedilol (Coreg) 3.125 mg PO BID [facility] Last Admin: 12/04/16 10:21 Dose: 3.125 mg Clopidogrel Bisulfate (Plavix) 75 mg PO DAILY [facility] Last Admin: 12/04/16 10:23 Dose: 75 mg Gabapentin (Neurontin) 300 mg PO QID [facility] PRN Reason: Protocol Last Admin: 12/04/16 14:19 Dose: 300 mg Meropenem 1g/NS 100mL IVPB (Meropenem 1g/Ns 100ml Ivpb) 1 gm in 100 mls @ 100 mls/hr IVPB Q12 [facility] PRN Reason: Protocol Stop: 12/07/16 15:47 Last Admin: 12/04/16 10:25 Dose: 100 mls/hr Iron Sucrose 200 mg/ Sodium (Chloride) 110 mls @ 110 mls/hr IVPB DAILY [facility] Stop: 12/07/16 10:59 Last Admin: 12/04/16 15:43 Dose: 110 mls/hr Insulin Detemir (Levemir) 45 unit SC Q12 [facility] Last Admin: 12/04/16 10:23 Dose: 45 unit Insulin Human Regular (Humulin R High) 0 units SC ACHS [facility] PRN Reason: Protocol Last Admin: 12/04/16 12:05 Dose: 4 units Insulin Lispro Protam/Lispro Human (Humalog Mix 75/25) 45 units SC ACBD [facility] Last Admin: 12/04/16 08:35 Dose: 45 u Levalbuterol HCl (Xopenex) 1.25 mg IH TIDRESP [facility] Last Admin: 12/04/16 13:29 Dose: 1.25 mg Losartan Potassium (Cozaar) 25 mg PO DAILY [facility] Last Admin: 12/04/16 10:21 Dose: 25 mg Metformin HCl (Glucophage) 850 mg PO TID [facility] Montelukast Sodium (Singulair) 10 mg PO HS [facility] Last Admin: 12/03/16 22:01 Dose: 10 mg Fluvoxamine [Luvox] (50 Mg) 50 mg PO BID [facility] Last Admin: 12/04/16 14:13 Dose: Not Given Pantoprazole Sodium (Protonix Ec Tab) 20 mg PO DAILY [facility] Last Admin: 12/04/16 10:22 Dose: 20 mg Polysaccharide Iron Complex (Ferrex-150) 150 mg PO DAILY [facility] Last Admin: 12/04/16 10:23 Dose: 150 mg Quetiapine Fumarate (Seroquel Xr) 50 mg PO HS [facility] PRN Reason: Protocol Last Admin: 12/03/16 22:01 Dose: 50 mg - Labs Labs: 12/02/16 07:15 12/03/16 07:10 PT 12.5 Seconds (9.9-11.8) H 11/29/16 20:27 INR 1.16 (0.93-1.08) H 11/29/16 20:27 APTT 43.9 Seconds (23.7-30.8) H 11/30/16 14:15 - Constitutional Appears: Well, Non-toxic, No Acute Distress - Extremities Exam Additional comments: LE focused exam: Vasc: DP/PT pulses palpable 2/4 b/l. CFT < 3 seconds to all digits. Skin temperature warm to warm from proximal to distal b/l Neuro: Epicritic and protective sensation grossly absent b/l Derm: Left foot first digit: Approx. 0.3 x 0.3 Bailey grade 2 ulceration noted to distal tip of toe. Hyperkeratotic tissue noted to periwound area absent of erythema. No drainage, malodor or other clinical signs of infection noted at this time. Left foot second digit: Hyperkeratotic tissue noted to distal tip of toe. No open lesions or fissures noted at this time. Right foot second digit: Hyperkeratotic tissue noted to distal tip of toe with underlying ulceration present. No clinical signs of infection noted at this time MSK: Muscle strength 5/5 to all major muscle groups b/l - Neurological Exam Neurological Exam: Alert, Awake, Oriented x3 - Psychiatric Exam Psychiatric exam: Normal Affect, Normal Mood Assessment and Plan - Assessment and Plan (Free Text) Assessment: 56 year old female seen at bedside for b/l distal toe callus formation and ulceration secondary to diabetic neuropathy Plan: Patient seen and evaluated at bedside with attending, Dr. Bills. Charts, labs and vitals reviewed; afebrile Right second digit and left first digit were dressed with silvadene & DSD. Patient advised to keep dressing C/D/I Continue IV abx per ID. -To apply crest pads in effort to offloading ulceration sites during weightbearing activity. -To debride hyperkeratotic tissue tomorrow in AM. Podiatry will continue to follow while patient is in house
[2016-12-04 17:17] VITALS: BP 150/80; PULSE 78
--- NOTE | 2016-12-04 19:34 | PN ---
DATE: 12/04/2016 SUBJECTIVE: The patient is seen lying in bed. She is awake, she is alert, she is comfortable. She denies any burning in the urine. She denies any shortness of breath. She does have a dry cough. PHYSICAL EXAMINATION GENERAL: A middle-aged lady lying in bed. VITAL SIGNS: Blood pressure 114/66, heart rate 92, respiratory rate 20, temperature 98.6. HEENT: Normocephalic, atraumatic. NECK: Supple, no JVD. LUNGS: Bilateral equal air entry, bilateral equal expansion. No rales. CARDIAC; S1 and S2. Regular rate and rhythm, no murmur, no rub. ABDOMEN: Obese, distended, soft, nontender, bowel sounds present. EXTREMITIES: No lower extremity edema. INTAKE AND OUTPUT: 1760/not charted. LABORATORY DATA: WBC 7.4, hemoglobin 10, hematocrit 33.4, platelets 235. Sodium 147, potassium 4.2, chloride 107, CO2 of 28, BUN 34, creatinine 0.9, glucose 124, calcium 10.1, albumin 4.2. Stool occult negative. CURRENT MEDICATIONS: Coreg 3.125 b.i.d., Cozaar 25, Ecotrin 81, iron 150, fluvoxamine, insulin, iron sucrose 200 IV piggyback daily, Levemir, Lipitor, meropenem 1 g q. 12, Neurontin, Plavix, Protonix, Seroquel, Singulair, Xanax, Xopenex, Zyloprim. ASSESSMENT AND PLAN: 1. Resolved acute kidney injury. 2. Underlying chronic kidney disease, stage I. 3. Oph-ygacwzh-hsdqcvmgg diabetes mellitus. 4. Resistant Escherichia coli urinary tract infection. 5. Diabetic nephropathy/proteinuria. 6. Hypertension. 7. Diabetic neuropathy. PLAN: 1. Okay to restart metformin. 2. Continue ARB. 3. Continue antibiotics as per ID recommendations. 4. Stable from renal standpoint. Elva Frank MD
--- NOTE | 2016-12-05 05:11 | PN ---
DATE: 12/04/2016 LOCATION: The patient in room 571, bed 2. REASON FOR CONSULTATION: Follow up history of coronary artery disease, admitted with UTI and chest pain. SUBJECTIVE: The patient at present is asymptomatic. Denies any chest pain. Her breathing is better. Denies any palpitation. PHYSICAL EXAMINATION: VITAL SIGNS: Blood pressure 160/80, respirations 20, pulse 78 and temperature 97.8. Earlier, blood pressure was 130/65, another blood pressure was 114/66. HEENT: Head is normocephalic. Eyes, pupils normal. Conjunctivae slightly pale. NECK: JVP low. Carotid equal. LUNGS: Clear. CARDIOVASCULAR: S1 and S2. ABDOMEN: Soft and nontender. No organomegaly. Bowel sounds are normal. EXTREMITIES: No clubbing. No cyanosis. LABORATORY DATA: WBC 7.4, hemoglobin 10.4, hematocrit 33.4, and platelet 235. Random sugar 171. Sodium 147, potassium 4.2, BUN 34, creatinine 0.9, random sugar 142, and calcium 10.1. AST and ALT normal. Total protein and albumin normal. IMPRESSION: Coronary artery disease, urinary tract infection, last stent insertion was 03/03/2013. Stress test recently on 07/19/2016, was negative. Echo shows RV systolic pressure 20, trace mitral regurgitation and tricuspid regurgitation. PLAN: The patent is asymptomatic at this moment from cardiac point of view and we can continue present therapy and we will follow closely with you. Stephanie Hartley MD
--- NOTE | 2016-12-05 12:07 | DS ---
HISTORY OF PRESENT ILLNESS: The patient is 56 years old, seen and examined, lying in bed. No nausea or vomiting. No diarrhea. PHYSICAL EXAMINATION: VITAL SIGNS: The patient is afebrile, pulse 92, respirations 20, and blood pressure 114/66. LUNGS: Bilateral fair air flow. No rhonchi or crackle. HEART: S1 and S2 audible. ABDOMEN: Soft, obese and nontender. No rebound and no guarding. NEUROLOGIC: The patient is awake, alert, and communicative. LABORATORY DATA: Blood sugar is about 60 this morning. ASSESSMENT: 1. Multidrug-resistant urinary tract infection that was diagnosed in Dr. Frank's office; however, repeat urine culture over here was negative. The patient is still on IV antibiotics although she was asymptomatic. 2. Chronic obstructive pulmonary disease. 3. Hypertension. 4. Insulin-dependent diabetes. 5. Morbid obesity. 6. Resolved renal insufficiency. PLAN: We will get sensitivity from the Dr. Frank's office and then we will decide about duration of antibiotics. The patient has her bed in TCU and she will be transferred to TCU later on today. Colt Zhu MD
== END 2016-12-04 18:33 | DRG 682 ==
LOC: ED 19:27 → ERH 23:43 → 2RNO 11-30 01:13 → 5RSO 12-01 20:59
PROVIDERS: ADMIT Internal Medicine; ATTEND Internal Medicine
DX: N17.9 Acute kidney failure, unspecified (principal); A41.9 Sepsis, unspecified organism; I42.9 Cardiomyopathy, unspecified; E11.21 Type 2 diabetes mellitus with diabetic nephropathy; I13.0 Hypertensive heart and chronic kidney disease with heart failure and stage 1 through stage 4 chronic kidney disease, or unspecified chronic kidney disease; I50.9 Heart failure, unspecified; E66.01 Morbid (severe) obesity due to excess calories; N39.0 Urinary tract infection, site not specified; E11.40 Type 2 diabetes mellitus with diabetic neuropathy, unspecified; B96.20 Unspecified Escherichia coli [E. coli] as the cause of diseases classified elsewhere; E11.22 Type 2 diabetes mellitus with diabetic chronic kidney disease; E11.65 Type 2 diabetes mellitus with hyperglycemia; E78.5 Hyperlipidemia, unspecified; E86.0 Dehydration; E87.5 Hyperkalemia; E87.6 Hypokalemia; G25.81 Restless legs syndrome; N18.1 Chronic kidney disease, stage 1; M79.7 Fibromyalgia; Z16.24 Resistance to multiple antibiotics; Z68.31 Body mass index [BMI] 31.0-31.9, adult; Z79.02 Long term (current) use of antithrombotics/antiplatelets; Z79.4 Long term (current) use of insulin; Z79.82 Long term (current) use of aspirin; Z79.84 Long term (current) use of oral hypoglycemic drugs; Z79.899 Other long term (current) drug therapy; Z86.711 Personal history of pulmonary embolism; Z86.718 Personal history of other venous thrombosis and embolism; I25.10 Atherosclerotic heart disease of native coronary artery without angina pectoris; J44.9 Chronic obstructive pulmonary disease, unspecified; L84 Corns and callosities; Z87.01 Personal history of pneumonia (recurrent); Z87.440 Personal history of urinary (tract) infections; Z87.442 Personal history of urinary calculi; Z87.891 Personal history of nicotine dependence; Z90.49 Acquired absence of other specified parts of digestive tract; Z95.5 Presence of coronary angioplasty implant and graft; Z99.81 Dependence on supplemental oxygen; R42 Dizziness and giddiness; R04.0 Epistaxis; R32 Unspecified urinary incontinence; N80.9 Endometriosis, unspecified; F41.9 Anxiety disorder, unspecified; F32.89 Other specified depressive episodes; Z88.8 Allergy status to other drugs, medicaments and biological substances; R40.2412 Glasgow coma scale score 13-15, at arrival to emergency department; D50.9 Iron deficiency anemia, unspecified; I08.3 Combined rheumatic disorders of mitral, aortic and tricuspid valves; Z90.721 Acquired absence of ovaries, unilateral

== ENCOUNTER 2016-12-04 18:33 | Inpatient (IN) | payer OTHER ==
[2016-12-04 19:38] VITALS: BMI 31.9
[2016-12-04] MEDS: Levalbuterol 1.25 MG/3 ML Inhal Soln UD IH SCH (20:22)
[2016-12-04] MEDS: Insulin Detemir 100 units/ml Vial (Levemir) SC SCH (22:25)
[2016-12-04] MEDS: QUEtiapine 50 mg XR Tab PO SCH (22:25)
[2016-12-04] MEDS: Meropenem 1g/NS 100mL IVPB 1 GM/100 ML PIGGYBACK IVPB SCH (22:26)
[2016-12-04] MEDS ORDERED: Pneumococcal 23-Valent Vaccine IM ONE (23:03)
[2016-12-05] MEDS: Insulin Reg-HIGH-Coverage SC SCH ×5 (01:04→22:36)
[2016-12-05] MEDS: Pantoprazole 20 mg EC Tab PO SCH (05:53)
[2016-12-05] MEDS: Levalbuterol 1.25 MG/3 ML Inhal Soln UD IH SCH ×3 (07:16→20:14)
[2016-12-05] MEDS ORDERED: Insulin Lispro (humaLOG) MIX 75/25(10 ml) SC SCH (07:30)
[2016-12-05] MEDS: Iron Complex Polysacch 150mg Cap PO SCH (10:43)
[2016-12-05] MEDS: Insulin Detemir 100 units/ml Vial (Levemir) SC SCH ×2 (10:44→22:37)
[2016-12-05] MEDS: Meropenem 1g/NS 100mL IVPB 1 GM/100 ML PIGGYBACK IVPB SCH ×2 (10:48→22:38)
--- NOTE | 2016-12-05 15:38 | CP.PCM.CON ---
History of Present Illness - History of Present Illness History of Present Illness: 56 year old female with COPD, obesity with BMI 31, fibromyalgia, history of UTI' s, restless leg syndrome, history of pneumonia, HTN, chronic CHF, DM, history of kidney stones, history of endometriosis, S/P oophorectomy, history of cellulitis of lower extremities was initially admitted in [facility] because of SOB and UTI. She is being treated for UTI and is better. She is now transferred to [facility] for continued medical therapy and physical rehab. Infectious Diseases consult is requested to continue antibiotic therapy. Currently the patient denies fever or chills, no dysuria, no flank pain, no headache or dizziness, no chest pain, no abdominal pain, no diarrhea. Review of Systems - Review of Systems All systems: reviewed and no additional remarkable complaints except (as per HPI ) Past Patient History - Infectious Disease Hx of Infectious Diseases: None - Tetanus Immunizations Tetanus Immunization: Unknown - Past Medical History & Family History Past Medical History?: Yes - Past Social History Smoking Status: Never Smoked - CARDIAC Hx Cardiac Disorders: Yes Hx Congestive Heart Failure: Yes Hx Hypertension: No - PULMONARY Hx Respiratory Disorders: Yes Hx Chronic Obstructive Pulmonary Disease (COPD): Yes Hx Pneumonia: Yes - NEUROLOGICAL Hx Neurological Disorder: Yes Hx Dizziness: Yes Other/Comment: Restless leg syndrome. Fibromyalgia - HEENT Hx HEENT Problems: Yes Hx Epistaxis: Yes - RENAL Hx Chronic Kidney Disease: Yes Hx Kidney Stones: Yes - ENDOCRINE/METABOLIC Hx Diabetes Mellitus Type 2: Yes - HEMATOLOGICAL/ONCOLOGICAL Hx Blood Disorders: Yes Hx Anemia: Yes - INTEGUMENTARY Hx Dermatological Problems: Yes - MUSCULOSKELETAL/RHEUMATOLOGICAL Hx Falls: No - GASTROINTESTINAL Hx Gastrointestinal Disorders: Yes - GENITOURINARY/GYNECOLOGICAL Hx Genitourinary Disorders: Yes Hx Incontinence: Yes Hx Urinary Tract Infection: Yes Other/Comment: Endometriosis - PSYCHIATRIC Hx Psychophysiologic Disorder: Yes Hx Anxiety: Yes Hx Depression: Yes Hx Emotional Abuse: No Hx Physical Abuse: No Hx Substance Use: No - SURGICAL HISTORY Hx Appendectomy: Yes Hx Cardiac Catheterization: Yes Hx Coronary Stent: Yes Other/Comment: Abd lap W R oophorectomy & partial L oophrectomy. c section, I & D cellulitis both legs, bilateral axilla, - ANESTHESIA Hx Anesthesia: Yes Hx Anesthesia Reactions: No Hx Malignant Hyperthermia: No Meds Allergies/Adverse Reactions: Allergies Allergy/AdvReac Type Severity Reaction Status Date / Time theophylline Allergy NAUSEA Verified 11/29/16 19:40 - Medications Medications: Current Medications Allopurinol (Zyloprim) 100 mg PO DAILY MAMADOU PRN Reason: Protocol Alprazolam (Xanax) 1 mg PO DAILY M[facility]ADOU PRN Reason: Protocol Aspirin (Ecotrin) 81 mg PO 0800 [facility] PRN Reason: Protocol Atorvastatin Calcium (Lipitor) 20 mg PO DIN MAMADOU PRN Reason: Protocol Carvedilol (Coreg) 3.125 mg PO BID MAMADOU PRN Reason: Protocol Clopidogrel Bisulfate (Plavix) 75 mg PO DAILY MAMADOU PRN Reason: Protocol Gabapentin (Neurontin) 300 mg PO QID MAMADOU PRN Reason: Protocol Iron Sucrose 200 mg/ Sodium (Chloride) 110 mls @ 110 mls/hr IVPB DAILY MAMADOU PRN Reason: Protocol Stop: 12/07/16 10:59 Meropenem 1g/NS 100mL IVPB (Meropenem 1g/Ns 100ml Ivpb) 1 gm in 100 mls @ 100 mls/hr IVPB Q12 MAMADOU PRN Reason: Protocol Insulin Detemir (Levemir) 45 unit SC Q12 MAM[facility]OU PRN Reason: Protocol Insulin Human Regular (Humulin R High) 0 units SC ACHS MAMADOU PRN Reason: Protocol Insulin Lispro Protam/Lispro Human (Humalog Mix 75/25) 45 units SC ACBD MAMADOU PRN Reason: Protocol Levalbuterol HCl (Xopenex) 1.25 mg IH TIDRESP M[facility]ADOU PRN Reason: Protocol Last Admin: 12/04/16 20:22 Dose: 1.25 mg Losartan Potassium (Cozaar) 25 mg PO DAILY MAMADOU PRN Reason: Protocol Metformin HCl (Glucophage) 850 mg PO TID MAMADOU PRN Reason: Protocol Montelukast Sodium (Singulair) 10 mg PO HS MAMADOU PRN Reason: Protocol Pantoprazole Sodium (Protonix Ec Tab) 20 mg PO 0600 M[facility] PRN Reason: Protocol Polysaccharide Iron Complex (Ferrex-150) 150 mg PO DAILY MAMADOU PRN Reason: Protocol Quetiapine Fumarate (Seroquel Xr) 50 mg PO HS MAMADOU PRN Reason: Protocol Physical Exam - Constitutional Appears: Non-toxic, No Acute Distress - Head Exam Head Exam: NORMAL INSPECTION - ENT Exam ENT Exam: Mucous Membranes Moist - Neck Exam Neck exam: Negative for: Lymphadenopathy, Meningismus - Respiratory Exam Respiratory Exam: Decreased Breath Sounds - Cardiovascular Exam Cardiovascular Exam: +S1, +S2 - GI/Abdominal Exam GI & Abdominal Exam: Soft. absent: Tenderness Results - Labs Labs: Laboratory Results - last 24 hr 12/04/16 21:04 POC Glucose (mg/dL) 68 Assessment & Plan - Assessment and Plan (Free Text) Plan: Assessment Probable sepsis due to UTI; multiple species growing from urine cx; urine cx taken from Dr. Frank's office shows E. coli which is resistant to many antibiotics but sensitive to Imipenem (but not ESBL-producing) COPD obesity with BMI 31 fibromyalgia history of UTI's restless leg syndrome history of pneumonia HTN chronic CHF DM history of kidney stones history of endometriosis S/P oophorectomy history of cellulitis of lower extremities Plan continue Merrem day 6 (discussed with Dr. Farnk that she has resistant bacteria in her most recent outpatient urine cx); urine cx have been repeated today; blood cx are negative; renal ultrasound is normal - should plan for 7-10 days of antibiotics (day 6 today) - discussed with Dr. Zhu will continue to monitor clinically would suggest Urology evaluation even as an outpatient
--- NOTE | 2016-12-05 17:04 | PN ---
SUBJECTIVE: The patient is currently seen in the day room. She has completed a course of antibiotics for her urinary tract infection in the TCU. She appears to be stable. MEDICATIONS: Medication list reviewed. The patient is on Coreg, Cozaar, Ecotrin, Ferrex, Glucophage, insulin, Lipitor, meropenem, Neurontin, Plavix, Protonix, Seroquel, Singulair, Xanax, Xopenex and Zyloprim. OBJECTIVE: VITAL SIGNS: Blood pressure 142/79, temperature 98.4, respiratory rate is 18, pulse is 105. HEENT: Shows her to be normocephalic and atraumatic. Conjunctivae are pink. Sclerae nonicteric. NECK: Supple. No neck vein distention. CHEST: Clear to auscultation and percussion. No rales, no rhonchi, no wheezing. CARDIOVASCULAR: Showed a regular rate and rhythm without murmurs, rubs, or gallops. ABDOMEN: Soft. Bowel sounds are normal. Moderate obesity. No rebound or guarding. EXTREMITIES: Show no cyanosis or clubbing. LABORATORY DATA AND IMAGING: Labs: CBC; white blood cell count 7.4, hemoglobin of 10.4 and a normal platelet count. Chemistries are normal. Glucose is 104 with a BUN of 34 and creatinine of 0.9. These labs are done on 12/02 and 12/03. Microbiology, repeat urine culture, iron level was negative. Blood cultures were negative. Urine culture from 11/29 showed multiple species indicative of her not doing a clean catch. ASSESSMENT: 1. Acute renal failure. Her BUN has dropped from 105 down to 34 at or near baseline levels. Creatinine is down from 1.9 to 0.9 at or near baseline levels. 2. Underlying chronic kidney disease stage I with a history of diabetic nephropathy and mild proteinuria. 3. History of noninsulin-dependent diabetes mellitus currently on insulin. 4. History of urinary tract infection on IV antibiotic therapy completing the course of IV antibiotics in the TCU. 5. History of hypertension, blood pressure is controlled on present medical therapy. PLAN: 1. As noted by Dr. Frank on previous day the patient will continue angiotensin receptor bev both for renal protection and for hypertension. 2. Safe from our standpoint for the patient to take Glucophage with a creatinine 0.9. 3. Continue IV antibiotics as per infectious disease recommendation. 4. The patient is stable from a renal standpoint. Brent Sheth MD
[2016-12-05] MEDS: QUEtiapine 50 mg XR Tab PO SCH (22:39)
--- NOTE | 2016-12-06 04:44 | HP ---
HISTORY OF PRESENT ILLNESS: The patient is a 56 years old who was admitted because of not feeling well, shortness of breath, abdominal discomfort, suprapubic discomfort and left flank discomfort. She was found to have a resistant UTI. She was being treated by Dr. Frank as an outpatient. She was given a course of Cipro, but the patient grew E. coli only sensitive to IV antibiotics,so she was brought to emergency room. She was found to have a acute renal failure, so V/Q scan was done and that was low probability, leg Doppler was negative. Initially, she was on heparin that was discontinued, so the patient needed to complete her course of 7 days of meropenem, so she will transfer TCU to complete her course of antibiotic. SIGNIFICANT PAST MEDICAL HISTORY: 1. Non-insulin dependent diabetes. 2. Hypertension. 3. Hyperlipidemia. 4. COPD. 5. Diabetic neuropathy. ALLERGIES: SHE IS ALLERGIC TO THEOPHYLLINE. MEDICATIONS AT HOME: She is on metformin, Xanax, Luvox, Seroquel 50 mg daily, potassium 20 mEq daily, Protonix, Singulair 10 mg daily, losartan 25 mg daily, iron sucrose. He takes Lantus, Lopid and NovoLog. SOCIAL HISTORY: She is a heavy smoker, but quit few years ago. Socially drinks. REVIEW OF SYSTEMS: Significant for bilateral leg pain, no more abdominal pain, no fever, no chills, no nausea, no vomiting or diarrhea. PHYSICAL EXAMINATION: VITAL SIGNS: She is afebrile, pulse 96, respiration 18 and blood pressure 114/73. LUNGS: Bilateral fair airflow. No rhonchi or crackles. HEART: S1 and S2, audible. ABDOMEN: Soft and nontender. No rebound. No guarding. NEUROLOGIC: The patient is awake and alert, ambulatory, bilateral leg +1 edema. ASSESSMENT: 1. Multidrug resistant. 2. Insulin dependent diabetes. 3. Hypertension. 4. Chronic obstructive pulmonary disease. PLAN: The patient had episode of hypoglycemia, we will cut down her dose of insulin, we will continue her meropenem, resume all medication as on the acute side and we will followup the patient in a.m. Colt Zhu MD
[2016-12-06] MEDS: Pantoprazole 20 mg EC Tab PO SCH (05:50)
[2016-12-06] MEDS: Levalbuterol 1.25 MG/3 ML Inhal Soln UD IH SCH ×3 (07:20→22:07)
[2016-12-06 07:43] LABS: MEAN CELL VOLUME 93.3 fl (80.0-105.0); MEAN CORPUSCULAR HEMOGLOBIN 28.9 pg (25.0-35.0); MEAN CORPUSCULAR HGB CONC 30.9 g/dl (31.0-37.0); MEAN PLATELET VOLUME 10.8 fl (7.0-11.0); RED CELL DISTRIBUTION WIDTH 17.9 % (11.5-14.5); WHITE BLOOD COUNT 8.6 10^3/ul (4.5-11.0)
[2016-12-06] MEDS: Insulin Lispro (humaLOG) MIX 75/25(10 ml) SC SCH ×2 (07:49→17:30)
[2016-12-06] MEDS: Insulin Reg-HIGH-Coverage SC SCH ×4 (07:51→21:39)
[2016-12-06 08:07] LABS: ALB/GLOB RATIO 1.2 (1.1-1.8); ALKALINE PHOSPHATASE 86 U/L (38-133); ALT/SGPT 25 U/L (7-56); AST/SGOT 25 U/L (15-39); BILIRUBIN,TOTAL 0.4 mg/dL (0.2-1.3); BLOOD UREA NITROGEN 41 mg/dL (7-21); CALCIUM 9.6 mg/dL (8.4-10.5); CARBON DIOXIDE 24 mmol/L (21-33); CHLORIDE 105 mmol/L (98-107); GFR AFRICAN-AMERICAN > 60; GLUCOSE,RANDOM 169 mg/dL (70-110); MAGNESIUM 1.8 mg/dL (1.7-2.2); PHOSPHOROUS 4.4 mg/dL (2.5-4.5); POTASSIUM 4.1 mmol/L (3.6-5.0); SODIUM 140 mmol/L (132-148)
[2016-12-06] MEDS: Meropenem 1g/NS 100mL IVPB 1 GM/100 ML PIGGYBACK IVPB SCH ×2 (10:36→21:17)
[2016-12-06] MEDS: Iron Complex Polysacch 150mg Cap PO SCH (10:36)
[2016-12-06] MEDS: Insulin Detemir 100 units/ml Vial (Levemir) SC SCH ×2 (10:37→21:39)
--- NOTE | 2016-12-06 14:47 | CP.PCM.CON ---
<Leo Flowers - Last Filed: 12/06/16 22:34> History of Present Illness - History of Present Illness History of Present Illness: 56 year old female seen at bedside with Dr. Bills concerning bilateral digital ulcerations, after transfer to TCU. Pt has noted minor drainage through dressing. No overnight f/c/cp/sob/n/v. Pt has no new pedal complaints. Pt is in good spirits. Past Patient History - Infectious Disease Hx of Infectious Diseases: None - Tetanus Immunizations Tetanus Immunization: Unknown - Past Medical History & Family History Past Medical History?: Yes - Past Social History Smoking Status: Never Smoked - CARDIAC Hx Congestive Heart Failure: Yes Hx Hypertension: Yes - PULMONARY Hx Chronic Obstructive Pulmonary Disease (COPD): Yes - NEUROLOGICAL Hx Neurological Disorder: Yes Hx Dizziness: Yes Other/Comment: Restless leg syndrome. Fibromyalgia - HEENT Hx HEENT Problems: Yes Hx Epistaxis: Yes - RENAL Hx Chronic Kidney Disease: Yes Hx Kidney Stones: Yes - ENDOCRINE/METABOLIC Hx Diabetes Mellitus Type 2: Yes - HEMATOLOGICAL/ONCOLOGICAL Hx Blood Disorders: Yes Hx Anemia: Yes - INTEGUMENTARY Hx Dermatological Problems: Yes - MUSCULOSKELETAL/RHEUMATOLOGICAL Hx Falls: No - GASTROINTESTINAL Hx Gastrointestinal Disorders: Yes - GENITOURINARY/GYNECOLOGICAL Hx Genitourinary Disorders: Yes Hx Incontinence: Yes Hx Urinary Tract Infection: Yes Other/Comment: Endometriosis - PSYCHIATRIC Hx Psychophysiologic Disorder: Yes Hx Anxiety: Yes Hx Depression: Yes Hx Emotional Abuse: No Hx Physical Abuse: No Hx Substance Use: No - SURGICAL HISTORY Hx Appendectomy: Yes Hx Cardiac Catheterization: Yes Hx Coronary Stent: Yes Other/Comment: Abd lap W R oophorectomy & partial L oophrectomy. c section, I & D cellulitis both legs, bilateral axilla, - ANESTHESIA Hx Anesthesia: Yes Hx Anesthesia Reactions: No Hx Malignant Hyperthermia: No Meds Allergies/Adverse Reactions: Allergies Allergy/AdvReac Type Severity Reaction Status Date / Time theophylline Allergy NAUSEA Verified 11/29/16 19:40 - Medications Medications: Current Medications Allopurinol (Zyloprim) 100 mg PO DAILY MAMADOU PRN Reason: Protocol Last Admin: 12/06/16 10:35 Dose: 100 mg Alprazolam (Xanax) 1 mg PO DAILY MAMADOU PRN Reason: Protocol Last Admin: 12/06/16 10:40 Dose: 1 mg Aspirin (Ecotrin) 81 mg PO 0800 MAMADOU PRN Reason: Protocol Last Admin: 12/06/16 08:22 Dose: 81 mg Atorvastatin Calcium (Lipitor) 20 mg PO DIN MAMADOU PRN Reason: Protocol Last Admin: 12/05/16 17:26 Dose: 20 mg Carvedilol (Coreg) 3.125 mg PO BID MAMADOU PRN Reason: Protocol Last Admin: 12/06/16 10:34 Dose: 3.125 mg Clopidogrel Bisulfate (Plavix) 75 mg PO DAILY MAMADOU PRN Reason: Protocol Last Admin: 12/06/16 10:35 Dose: 75 mg Gabapentin (Neurontin) 400 mg PO 0800,1400 MAMADOU Last Admin: 12/06/16 13:41 Dose: 400 mg Gabapentin (Neurontin) 800 mg PO HS MAMADOU Home Med (Home Med) 0 unit PO BID MAMADOU PRN Reason: Protocol Iron Sucrose 200 mg/ Sodium (Chloride) 110 mls @ 110 mls/hr IVPB DAILY MAMADOU PRN Reason: Protocol Stop: 12/07/16 10:59 Last Admin: 12/06/16 10:36 Dose: 110 mls/hr Meropenem 1g/NS 100mL IVPB (Meropenem 1g/Ns 100ml Ivpb) 1 gm in 100 mls @ 100 mls/hr IVPB Q12 MAMADOU PRN Reason: Protocol Last Admin: 12/06/16 10:36 Dose: 100 mls/hr Insulin Detemir (Levemir) 40 unit SC Q12 MAMADOU PRN Reason: Protocol Last Admin: 12/06/16 10:37 Dose: 40 unit Insulin Human Regular (Humulin R High) 0 units SC ACHS MAMADOU PRN Reason: Protocol Last Admin: 12/06/16 12:30 Dose: 4 units Insulin Lispro Protam/Lispro Human (Humalog Mix 75/25) 40 units SC ACBD MAMADOU PRN Reason: Protocol Last Admin: 12/06/16 07:49 Dose: 40 unit Levalbuterol HCl (Xopenex) 1.25 mg IH TIDRESP M[facility]ADOU PRN Reason: Protocol Last Admin: 12/06/16 13:29 Dose: 1.25 mg Losartan Potassium (Cozaar) 25 mg PO DAILY MAMADOU PRN Reason: Protocol Last Admin: 12/06/16 10:35 Dose: 25 mg Metformin HCl (Glucophage) 850 mg PO TID MAMADOU PRN Reason: Protocol Last Admin: 12/06/16 13:40 Dose: 850 mg Montelukast Sodium (Singulair) 10 mg PO HS MAMADOU PRN Reason: Protocol Last Admin: 12/05/16 22:40 Dose: 10 mg Pantoprazole Sodium (Protonix Ec Tab) 20 mg PO 0600 MAMADOU PRN Reason: Protocol Last Admin: 12/06/16 05:50 Dose: 20 mg Polysaccharide Iron Complex (Ferrex-150) 150 mg PO DAILY MAMADOU PRN Reason: Protocol Last Admin: 12/06/16 10:36 Dose: 150 mg Quetiapine Fumarate (Seroquel Xr) 50 mg PO HS MAMADOU PRN Reason: Protocol Last Admin: 12/05/16 22:39 Dose: 50 mg Physical Exam - Constitutional Appears: Well, Non-toxic, No Acute Distress - Extremities Exam Additional comments: LE focused exam: Vasc: DP/PT pulses palpable 2/4 b/l. CFT < 3 seconds to all digits. Skin temperature warm to warm from proximal to distal b/l Neuro: Epicritic and protective sensation grossly absent b/l Derm: Left foot first digit: Approx. 0.3 x 0.3 Bailey grade 2 ulceration noted to distal tip of toe. Hyperkeratotic tissue noted to periwound area absent of erythema. No drainage, malodor or other clinical signs of infection noted at this time. Left foot second digit: Hyperkeratotic tissue noted to distal tip of toe. No open lesions or fissures noted at this time. Right foot second digit: Hyperkeratotic tissue noted to distal tip of toe with underlying ulceration present. No clinical signs of infection noted at this time MSK: Muscle strength 5/5 to all major muscle groups b/l - Neurological Exam Neurological exam: Alert, Oriented x3 - Psychiatric Exam Psychiatric exam: Normal Affect, Normal Mood Results - Vital Signs Recent Vital Signs: Last Vital Signs Temp 98.5 F 12/06/16 10:27 Pulse 91 H 12/06/16 14:18 Resp 18 12/06/16 10:27 BP 123/76 12/06/16 10:35 Pulse Ox 98 12/05/16 16:09 - Labs Result Diagrams: 12/06/16 07:00 12/06/16 07:00 Labs: Laboratory Results - last 24 hr 12/05/16 12/05/16 12/06/16 15:59 21:17 07:00 WBC 8.6 RBC 3.43 L Hgb 9.9 L Hct 32.0 L MCV 93.3 MCH 28.9 MCHC 30.9 L RDW 17.9 H Plt Count 237 MPV 10.8 Sodium Potassium Chloride Carbon Dioxide Anion Gap BUN Creatinine Est GFR ( Amer) Est GFR (Non-Af Amer) POC Glucose (mg/dL) 130 H 113 H Random Glucose Calcium Phosphorus Magnesium Total Bilirubin AST ALT Alkaline Phosphatase Total Protein Albumin Globulin Albumin/Globulin Ratio 12/06/16 07:00 WBC RBC Hgb Hct MCV MCH MCHC RDW Plt Count MPV Sodium 140 Potassium 4.1 Chloride 105 Carbon Dioxide 24 Anion Gap 15 BUN 41 H Creatinine 1.0 Est GFR ( Amer) > 60 Est GFR (Non-Af Amer) 58 POC Glucose (mg/dL) Random Glucose 169 H Calcium 9.6 Phosphorus 4.4 Magnesium 1.8 Total Bilirubin 0.4 AST 25 ALT 25 Alkaline Phosphatase 86 Total Protein 7.0 Albumin 3.8 Globulin 3.1 Albumin/Globulin Ratio 1.2 Assessment & Plan - Assessment and Plan (Free Text) Assessment: 56 year old female seen at bedside for b/l distal toe callus formation and ulceration secondary to diabetic neuropathy Plan: Patient seen and evaluated at bedside with attending, Dr. Bills. Charts, labs and vitals reviewed; afebrile Right second digit and left first digit were dressed with silvadene & DSD. Patient advised to keep dressing C/D/I Continue IV abx per ID. -To apply crest pads in effort to offloading ulceration sites during weightbearing activity. -To debride hyperkeratotic tissue tomorrow in AM. Podiatry will continue to follow while patient is in house <Guillermina Bills - Last Filed: 12/24/16 16:30> Results - Vital Signs Recent Vital Signs: Last Vital Signs Temp 98.1 F 12/10/16 10:47 Pulse 79 12/10/16 10:47 Resp 18 12/10/16 10:47 BP 110/70 12/10/16 10:47 Pulse Ox 96 12/10/16 10:47 - Labs Result Diagrams: 12/06/16 07:00 12/06/16 07:00 Attending/Attestation - Attestation I have personally seen and examined this patient.: Yes I have fully participated in the care of the patient.: Yes I have reviewed all pertinent clinical information: Yes
[2016-12-06] MEDS: FLUVOXAMINE 25 MG PO SCH (17:40)
--- NOTE | 2016-12-06 18:39 | PN ---
DATE: 12/06/2016 SUBJECTIVE: The patient is seen, walking in the hallway. She complaints of severe pain in her lower extremities. She denies any shortness of breath. She denies any dysuria. PHYSICAL EXAMINATION: GENERAL: Middle-aged lady sitting in bed. VITAL SIGNS: Blood pressure 123/76, heart rate 97, respiratory rate 18, and temperature 98.5. HEENT: Normocephalic and atraumatic. Positive pallor. NECK: Supple. No JVD. LUNGS: Bilateral equal air entry. No rales. CARDIAC: S1 and S2. Regular rate and rhythm. No murmur. No rub. ABDOMEN: Obese, distended, soft, nontender, and bowel sounds present. EXTREMITIES: No lower extremity edema. INTAKE AND OUTPUT: Not charted. LABORATORY DATA: WBC 8.6, hemoglobin 9.9, hematocrit 32, and platelets 237. Sodium 140, potassium 4.1, chloride 105, CO2 of 24, BUN 41, creatinine 1.0, glucose 169, calcium 9.6, phosphorous 4.4, magnesium 1.8, and albumin 3.8. CURRENT MEDICATIONS: Coreg 3.125 b.i.d., losartan 25, Ecotrin, iron, Glucophage 850 t.i.d., insulin, Venofer 200 mg, Levemir, Lipitor, meropenem, Neurontin, Plavix, Seroquel, Singulair, Xanax, and Xopenex. ASSESSMENT: 1. Resolved acute kidney injury. 2. Underlying chronic kidney disease, stage 1. 3. Severe anemia. 4. Resistant Escherichia coli urinary tract infection. 5. Hypertension. 6. Congestive heart failure. PLAN: 1. Complete antibiotics. 2. Continue Venofer. 3. Continue antihypertensives. 4. Continue insulin coverage. Elva Frank MD
--- NOTE | 2016-12-06 18:48 | CP.PCM.PN ---
Subjective - Date & Time of Evaluation Date of Evaluation: 12/06/16 Time of Evaluation: 11:05 - Subjective Subjective: Comfortable, not in distress, afebrile, feeling better. Objective - Vital Signs/Intake and Output Vital Signs (last 24 hours): Temp Pulse Resp BP Pulse Ox 97.6 F 90 18 125/73 98 12/06/16 16:04 12/06/16 17:39 12/06/16 16:04 12/06/16 17:39 12/05/16 16:09 - Medications Medications: Current Medications Allopurinol (Zyloprim) 100 mg PO DAILY MAMADOU PRN Reason: Protocol Last Admin: 12/06/16 10:35 Dose: 100 mg Alprazolam (Xanax) 1 mg PO DAILY MAMADOU PRN Reason: Protocol Last Admin: 12/06/16 10:40 Dose: 1 mg Aspirin (Ecotrin) 81 mg PO 0800 MAMADOU PRN Reason: Protocol Last Admin: 12/06/16 08:22 Dose: 81 mg Atorvastatin Calcium (Lipitor) 20 mg PO DIN MAMADOU PRN Reason: Protocol Last Admin: 12/06/16 17:41 Dose: 20 mg Carvedilol (Coreg) 3.125 mg PO BID M[facility]ADOU PRN Reason: Protocol Last Admin: 12/06/16 17:39 Dose: 3.125 mg Clopidogrel Bisulfate (Plavix) 75 mg PO DAILY MAMADOU PRN Reason: Protocol Last Admin: 12/06/16 10:35 Dose: 75 mg Gabapentin (Neurontin) 400 mg PO 0800,1400 [facility] Last Admin: 12/06/16 13:41 Dose: 400 mg Gabapentin (Neurontin) 800 mg PO HS [facility] Home Med (Home Med) 0 unit PO BID MAMADOU PRN Reason: Protocol Last Admin: 12/06/16 17:40 Dose: 1 unit Iron Sucrose 200 mg/ Sodium (Chloride) 110 mls @ 110 mls/hr IVPB DAILY M[facility]ADOU PRN Reason: Protocol Stop: 12/07/16 10:59 Last Admin: 12/06/16 10:36 Dose: 110 mls/hr Meropenem 1g/NS 100mL IVPB (Meropenem 1g/Ns 100ml Ivpb) 1 gm in 100 mls @ 100 mls/hr IVPB Q12 [facility] PRN Reason: Protocol Last Admin: 12/06/16 10:36 Dose: 100 mls/hr Insulin Detemir (Levemir) 40 unit SC Q12 [facility] PRN Reason: Protocol Last Admin: 12/06/16 10:37 Dose: 40 unit Insulin Human Regular (Humulin R High) 0 units SC ACHS M[facility]ADOU PRN Reason: Protocol Last Admin: 12/06/16 17:30 Dose: Not Given Insulin Lispro Protam/Lispro Human (Humalog Mix 75/25) 40 units SC ACBD M[facility]AD[facility] PRN Reason: Protocol Last Admin: 12/06/16 17:30 Dose: Not Given Levalbuterol HCl (Xopenex) 1.25 mg IH TIDRESP [facility] PRN Reason: Protocol Last Admin: 12/06/16 13:29 Dose: 1.25 mg Losartan Potassium (Cozaar) 25 mg PO DAILY M[facility] PRN Reason: Protocol Last Admin: 12/06/16 10:35 Dose: 25 mg Metformin HCl (Glucophage) 850 mg PO TID M[facility]ADOU PRN Reason: Protocol Last Admin: 12/06/16 17:39 Dose: 850 mg Montelukast Sodium (Singulair) 10 mg PO HS M[facility] PRN Reason: Protocol Last Admin: 12/05/16 22:40 Dose: 10 mg Pantoprazole Sodium (Protonix Ec Tab) 20 mg PO 0600 M[facility]OU PRN Reason: Protocol Last Admin: 12/06/16 05:50 Dose: 20 mg Polysaccharide Iron Complex (Ferrex-150) 150 mg PO DAILY M[facility]ADOU PRN Reason: Protocol Last Admin: 12/06/16 10:36 Dose: 150 mg Quetiapine Fumarate (Seroquel Xr) 50 mg PO HS MAMADOU PRN Reason: Protocol Last Admin: 12/05/16 22:39 Dose: 50 mg - Labs Labs: 12/06/16 07:00 12/06/16 07:00 - Constitutional Appears: Non-toxic, No Acute Distress - Head Exam Head Exam: NORMAL INSPECTION - Neck Exam Neck Exam: absent: Meningismus - Respiratory Exam Respiratory Exam: Decreased Breath Sounds - Cardiovascular Exam Cardiovascular Exam: +S1, +S2 - GI/Abdominal Exam GI & Abdominal Exam: Soft. absent: Tenderness Assessment and Plan - Assessment and Plan (Free Text) Plan: Assessment Probable sepsis due to UTI; multiple species growing from urine cx; urine cx taken from Dr. Frank's office shows E. coli which is resistant to many antibiotics but sensitive to Imipenem (but not ESBL-producing) COPD obesity with BMI 31 fibromyalgia history of UTI's restless leg syndrome history of pneumonia HTN chronic CHF DM history of kidney stones history of endometriosis S/P oophorectomy history of cellulitis of lower extremities Plan continue Merrem day 7 (discussed with Dr. Frank that she has resistant bacteria in her most recent outpatient urine cx); urine cx have been repeated today; blood cx are negative; renal ultrasound is normal - should plan for 7-10 days of antibiotics (day 7 today) - discussed with Dr. Zhu will continue to monitor clinically would suggest Urology evaluation even as an outpatient
--- NOTE | 2016-12-06 20:57 | PN ---
DATE: 12/06/2016 SUBJECTIVE: The patient is an [id number] seen and examined. Sitting in chair, states her pressure has been running low. Denies any nausea or vomiting. No urinary symptoms PHYSICAL EXAMINATION VITAL SIGNS: She is afebrile, pulse 90, respirations 18, and blood pressure of 125/73. LUNGS: Bilateral fair airflow. No rhonchi or crackles. HEART: S1, S2, audible. ABDOMEN: Soft, nontender. No rebound, no guarding. NEUROLOGICAL: The patient is awake and able to communicate. LABORATORY DATA: WBC is 8.6, hemoglobin 9.9, hematocrit 32, platelet of 237. Chemistry: Sodium 140, potassium 4.1, chloride 105, CO2 of 25, BUN 41, creatinine 1.0, blood sugar of 169. ASSESSMENT: 1. Multidrug resistance Urinary tract infection. 2. Chronic obstructive pulmonary disease. 3. Hypertension. 4. Insulin-dependent diabetes. PLAN: Currently, the patient is receiving meropenem. The patient does have a history of diabetes and diabetic neuropathy. We changed her gabapentin to 400 mg twice morning and afternoon and 800 mg at bedtime, so the patient can have comfortable sleep. We will continue to give her meropenem and reevaluate the patient in a.m. Colt Zhu MD
[2016-12-06] MEDS: QUEtiapine 50 mg XR Tab PO SCH (21:19)
[2016-12-07] MEDS: Pantoprazole 20 mg EC Tab PO SCH (05:19)
[2016-12-07] MEDS: Insulin Reg-HIGH-Coverage SC SCH ×4 (06:59→22:34)
[2016-12-07] MEDS: Levalbuterol 1.25 MG/3 ML Inhal Soln UD IH SCH ×3 (07:23→20:41)
[2016-12-07] MEDS: Insulin Lispro (humaLOG) MIX 75/25(10 ml) SC SCH ×2 (07:37→17:30)
[2016-12-07] MEDS: Iron Complex Polysacch 150mg Cap PO SCH (10:39)
[2016-12-07] MEDS: FLUVOXAMINE 25 MG PO SCH ×2 (10:40→18:33)
[2016-12-07] MEDS: Insulin Detemir 100 units/ml Vial (Levemir) SC SCH ×2 (10:41→22:34)
[2016-12-07] MEDS: Meropenem 1g/NS 100mL IVPB 1 GM/100 ML PIGGYBACK IVPB SCH ×2 (10:41→22:03)
--- NOTE | 2016-12-07 11:25 | CP.PCM.PN ---
<Vicki Kilpatrick - Last Filed: 12/07/16 11:21> Subjective - Date & Time of Evaluation Date of Evaluation: 12/07/16 Time of Evaluation: 11:21 - Subjective Subjective: 56 year old female seen at bedside this AM concerning Left foot ulceration to plantar hallux. Pt had dressings to bilateral 2nd digits. She denies of any pain to the site of ulceations No overnight f/c/cp/sob/n/v. Pt has no new pedal complaints. Pt is in good spirits. Objective - Vital Signs/Intake and Output Vital Signs (last 24 hours): Temp Pulse Resp BP Pulse Ox 98.5 F 96 H 20 123/78 95 12/07/16 10:24 12/07/16 10:38 12/07/16 10:24 12/07/16 10:38 12/07/16 10:24 Intake and Output: 12/07/16 12/07/16 06:59 18:59 Intake Total 720 Balance 720 - Medications Medications: Current Medications Allopurinol (Zyloprim) 100 mg PO DAILY [facility] PRN Reason: Protocol Last Admin: 12/07/16 10:43 Dose: 100 mg Alprazolam (Xanax) 1 mg PO DAILY [facility] PRN Reason: Protocol Last Admin: 12/07/16 10:42 Dose: 1 mg Aspirin (Ecotrin) 81 mg PO 0800 [facility] PRN Reason: Protocol Last Admin: 12/07/16 08:12 Dose: 81 mg Atorvastatin Calcium (Lipitor) 20 mg PO DIN [facility] PRN Reason: Protocol Last Admin: 12/06/16 17:41 Dose: 20 mg Carvedilol (Coreg) 3.125 mg PO BID [facility] PRN Reason: Protocol Last Admin: 12/07/16 10:37 Dose: 3.125 mg Clopidogrel Bisulfate (Plavix) 75 mg PO DAILY [facility] PRN Reason: Protocol Last Admin: 12/07/16 10:43 Dose: 75 mg Gabapentin (Neurontin) 400 mg PO 0800,1400 [facility] Last Admin: 12/07/16 08:13 Dose: 400 mg Gabapentin (Neurontin) 800 mg PO HS [facility] Last Admin: 12/06/16 21:19 Dose: 800 mg Home Med (Home Med) 0 unit PO BID [facility] PRN Reason: Protocol Last Admin: 12/07/16 10:40 Dose: 1 unit Meropenem 1g/NS 100mL IVPB (Meropenem 1g/Ns 100ml Ivpb) 1 gm in 100 mls @ 100 mls/hr IVPB Q12 [facility] PRN Reason: Protocol Last Admin: 12/07/16 10:41 Dose: 100 mls/hr Insulin Detemir (Levemir) 40 unit SC Q12 [facility] PRN Reason: Protocol Last Admin: 12/07/16 10:41 Dose: 40 unit Insulin Human Regular (Humulin R High) 0 units SC ACHS [facility] PRN Reason: Protocol Last Admin: 12/07/16 06:59 Dose: Not Given Insulin Lispro Protam/Lispro Human (Humalog Mix 75/25) 40 units SC ACBD [facility] PRN Reason: Protocol Last Admin: 12/07/16 07:37 Dose: 40 unit Levalbuterol HCl (Xopenex) 1.25 mg IH TIDRESP [facility] PRN Reason: Protocol Last Admin: 12/07/16 07:23 Dose: 1.25 mg Losartan Potassium (Cozaar) 25 mg PO DAILY [facility] PRN Reason: Protocol Last Admin: 12/07/16 10:38 Dose: 25 mg Metformin HCl (Glucophage) 850 mg PO TID [facility] PRN Reason: Protocol Last Admin: 12/07/16 10:40 Dose: 850 mg Montelukast Sodium (Singulair) 10 mg PO HS [facility] PRN Reason: Protocol Last Admin: 12/06/16 21:20 Dose: 10 mg Pantoprazole Sodium (Protonix Ec Tab) 20 mg PO 0600 [facility] PRN Reason: Protocol Last Admin: 12/07/16 05:19 Dose: 20 mg Polysaccharide Iron Complex (Ferrex-150) 150 mg PO DAILY [facility] PRN Reason: Protocol Last Admin: 12/07/16 10:39 Dose: 150 mg Quetiapine Fumarate (Seroquel Xr) 50 mg PO HS [facility] PRN Reason: Protocol Last Admin: 12/06/16 21:19 Dose: 50 mg - Labs Labs: 12/06/16 07:00 12/06/16 07:00 - Constitutional Appears: Well, Non-toxic, No Acute Distress - Extremities Exam Additional comments: LE focused exam: Derm: Left foot first digit: Approx. 0.3 x 0.3 Bailey grade 2 ulceration noted to distal tip of hallux. Hyperkeratotic tissue noted to periwound area absent of erythema. No drainage, malodor or other clinical signs of infection noted at this time. Left foot second digit: Hyperkeratotic tissue noted to distal tip of toe. No open lesions or fissures noted at this time. Right foot second digit: Hyperkeratotic tissue noted to distal tip of toe with underlying ulceration present. No clinical signs of infection noted at this time Vasc: DP/PT pulses palpable 2/4 b/l. CFT < 3 seconds to all digits. Skin temperature warm to warm from proximal to distal b/l Neuro: Epicritic and protective sensation grossly absent b/l MSK: Muscle strength 5/5 to all major muscle groups b/l Right 2nd digit plantarly shows pre-ulcerative lesion with hyperkeratotic callus over the lesion plantarly. - Neurological Exam Neurological Exam: Alert, Awake, Oriented x3 - Psychiatric Exam Psychiatric exam: Normal Affect, Normal Mood - Skin Skin Exam: Normal Color, Warm Assessment and Plan - Assessment and Plan (Free Text) Assessment: 56 year old female seen at bedside for b/l distal toe callus formation and ulceration to left hallux plantarly secondary to diabetic neuropathy Plan: Patient seen and evaluated at bedside Charts, labs and vitals reviewed; afebrile Left first digit were dressed with silvadene & DSD. Patient advised to keep dressing C/D/I Continue IV abx per ID. Applied crest pads to left 2nd 3rd digits in effort to offloading ulceration sites during weightbearing activity. Podiatry will continue to follow while patient is in house <Guillermina Bills - Last Filed: 12/24/16 19:22> Objective - Vital Signs/Intake and Output Vital Signs (last 24 hours): Temp Pulse Resp BP Pulse Ox 98.1 F 79 18 110/70 96 12/10/16 10:47 12/10/16 10:47 12/10/16 10:47 12/10/16 10:47 12/10/16 10:47 - Labs Labs: 12/06/16 07:00 12/06/16 07:00 Attending/Attestation - Attestation I have personally seen and examined this patient.: Yes I have fully participated in the care of the patient.: Yes I have reviewed all pertinent clinical information, including history, physical exam and plan: Yes
--- NOTE | 2016-12-07 13:59 | PN ---
DATE: 12/07/2016 SUBJECTIVE: The patient is seen sitting in chair. She is awake. She is alert. She is comfortable. Her lower extremity pain is much improved. She denies any dysuria. She complains of cough. She reports that she is bringing up some green phlegm. PHYSICAL EXAMINATION General: Middle-aged lady sitting in bed. Vital signs: Blood pressure 123/78, heart rate 96, respiratory rate 20, temperature 98.5. HEENT: Normocephalic, atraumatic. Neck: Supple, no JVD. Lungs: Bilateral equal air entry, equal expansion. Cardiac: S1, S2, regular rate and rhythm, no murmur, no rub. Abdomen: Obese, distended, soft, nontender, bowel sounds present. Extremities: No lower extremity edema. Intake and Output: Not charted. LABORATORY DATA: No new labs. CURRENT MEDICATIONS: Coreg 3.125 b.i.d., losartan 25, Ecotrin, Xanax, Glucophage 850 t.i.d., insulin, iron sucrose, Levemir, Lipitor, meropenem, gabapentin, Neurontin, Plavix, Protonix, Seroquel, Singulair, and Xanax. ASSESSMENT 1. Resolved acute kidney injury. 2. Resistant E. coli urinary tract infection. 3. Tpt-exwviys-teaxbrxcj diabetes mellitus. 4. Reactive airway disease. 5. Neuropathy. PLAN 1. Complete course of antibiotics. 2. Continue fingerstick monitoring and insulin coverage. 3. Continue Coreg and Cozaar. 4. Physical therapy. Elva Frank MD
--- NOTE | 2016-12-07 15:00 | PN ---
DATE: SUBJECTIVE: The patient is a 56-year-old seen and examined, sitting in chair, seems to be comfortable. No nausea, and vomiting. No diarrhea. No urine discomfort. No shortness of breath. No hemoptysis. No hematemesis. PHYSICAL EXAMINATION: VITAL SIGNS: He is afebrile, pulse 96, respirations 20, and blood pressure of 123/78. LUNGS: Bilateral fair airflow. No rhonchi or crackles. HEART: S1, and S2, audible. ABDOMEN: Soft, obese, nontender, no rebound, no guarding. NEUROLOGICAL: She is awake and alert able to communicate, ambulatory. ASSESSMENT: 1. Multidrug resistant, urinary tract infection, failed outpatient treatment. 2. Chronic obstructive pulmonary disease. 3. Hypertension. 4. Insulin-dependent diabetes. 5. Diabetic neuropathy. PLAN: We will continue patient on current medical treatment. She has currently receiving meropenem as ID recommendations. She has resumed all her other medication. Blood sugar seems to be under fair control. We will followup. Colt Zhu MD
[2016-12-07] MEDS: QUEtiapine 50 mg XR Tab PO SCH (21:42)
[2016-12-08] MEDS: Pantoprazole 20 mg EC Tab PO SCH (05:19)
[2016-12-08] MEDS: Insulin Reg-HIGH-Coverage SC SCH ×4 (06:36→22:56)
[2016-12-08] MEDS: Insulin Lispro (humaLOG) MIX 75/25(10 ml) SC SCH ×2 (06:36→17:51)
[2016-12-08] MEDS: Levalbuterol 1.25 MG/3 ML Inhal Soln UD IH SCH ×3 (07:14→19:33)
[2016-12-08] MEDS: Iron Complex Polysacch 150mg Cap PO SCH (10:19)
[2016-12-08] MEDS: FLUVOXAMINE 25 MG PO SCH ×2 (10:20→17:50)
[2016-12-08] MEDS: Meropenem 1g/NS 100mL IVPB 1 GM/100 ML PIGGYBACK IVPB SCH ×2 (10:21→21:37)
[2016-12-08] MEDS: Insulin Detemir 100 units/ml Vial (Levemir) SC SCH ×2 (10:21→23:14)
--- NOTE | 2016-12-08 12:16 | CP.PCM.PN ---
<Vicki Kilpatrick - Last Filed: 12/08/16 12:12> Subjective - Date & Time of Evaluation Date of Evaluation: 12/08/16 Time of Evaluation: 12:12 - Subjective Subjective: 56 year old female seen at bedside this AM concerning Left foot ulceration to plantar hallux and hammertoe deformities bilaterally. Dressing to Left hallux appears clean dry and intact. She denies of any pain to the site of ulceations No overnight f/c/cp/sob/n/v. Pt has no new pedal complaints. Pt is in good spirits. Objective - Vital Signs/Intake and Output Vital Signs (last 24 hours): Temp Pulse Resp BP Pulse Ox 97.8 F 89 20 112/59 L 99 12/08/16 11:33 12/08/16 11:33 12/08/16 11:33 12/08/16 11:33 12/08/16 11:33 - Medications Medications: Current Medications Allopurinol (Zyloprim) 100 mg PO DAILY [facility] PRN Reason: Protocol Last Admin: 12/08/16 10:22 Dose: 100 mg Alprazolam (Xanax) 1 mg PO DAILY [facility] PRN Reason: Protocol Last Admin: 12/08/16 10:26 Dose: 1 mg Aspirin (Ecotrin) 81 mg PO 0800 [facility] PRN Reason: Protocol Last Admin: 12/08/16 08:25 Dose: 81 mg Atorvastatin Calcium (Lipitor) 20 mg PO DIN [facility] PRN Reason: Protocol Last Admin: 12/07/16 18:00 Dose: 20 mg Carvedilol (Coreg) 3.125 mg PO BID [facility] PRN Reason: Protocol Last Admin: 12/08/16 10:17 Dose: 3.125 mg Clopidogrel Bisulfate (Plavix) 75 mg PO DAILY [facility] PRN Reason: Protocol Last Admin: 12/08/16 10:21 Dose: 75 mg Gabapentin (Neurontin) 400 mg PO 0800,1400 [facility] Last Admin: 12/08/16 08:25 Dose: 400 mg Gabapentin (Neurontin) 800 mg PO HS [facility] Last Admin: 12/07/16 21:42 Dose: 800 mg Home Med (Home Med) 0 unit PO BID [facility] PRN Reason: Protocol Last Admin: 12/08/16 10:20 Dose: 1 unit Meropenem 1g/NS 100mL IVPB (Meropenem 1g/Ns 100ml Ivpb) 1 gm in 100 mls @ 100 mls/hr IVPB Q12 [facility] PRN Reason: Protocol Last Admin: 12/08/16 10:21 Dose: 100 mls/hr Insulin Detemir (Levemir) 40 unit SC Q12 [facility] PRN Reason: Protocol Last Admin: 12/08/16 10:21 Dose: 40 unit Insulin Human Regular (Humulin R High) 0 units SC ACHS [facility] PRN Reason: Protocol Last Admin: 12/08/16 06:36 Dose: Not Given Insulin Lispro Protam/Lispro Human (Humalog Mix 75/25) 40 units SC ACBD [facility] PRN Reason: Protocol Last Admin: 12/08/16 06:36 Dose: Not Given Levalbuterol HCl (Xopenex) 1.25 mg IH TIDRESP [facility] PRN Reason: Protocol Last Admin: 12/08/16 07:14 Dose: 1.25 mg Losartan Potassium (Cozaar) 25 mg PO DAILY [facility] PRN Reason: Protocol Last Admin: 12/08/16 10:18 Dose: 25 mg Metformin HCl (Glucophage) 850 mg PO TID [facility] PRN Reason: Protocol Last Admin: 12/08/16 10:20 Dose: 850 mg Montelukast Sodium (Singulair) 10 mg PO HS [facility] PRN Reason: Protocol Last Admin: 12/07/16 21:42 Dose: 10 mg Pantoprazole Sodium (Protonix Ec Tab) 20 mg PO 0600 [facility] PRN Reason: Protocol Last Admin: 12/08/16 05:19 Dose: 20 mg Polysaccharide Iron Complex (Ferrex-150) 150 mg PO DAILY [facility] PRN Reason: Protocol Last Admin: 12/08/16 10:19 Dose: 150 mg Quetiapine Fumarate (Seroquel Xr) 50 mg PO HS [facility] PRN Reason: Protocol Last Admin: 12/07/16 21:42 Dose: 50 mg - Labs Labs: 12/06/16 07:00 12/06/16 07:00 - Constitutional Appears: Well, Non-toxic, No Acute Distress - Extremities Exam Additional comments: LE focused exam: Derm: Left foot first digit: Approx. 0.3 x 0.3 Bailey grade 1 ulceration noted to distal tip of hallux. Hyperkeratotic tissue noted to periwound area absent of erythema. No drainage, no malodor or other clinical signs of infection noted at this time. Left foot second digit: Hyperkeratotic tissue noted to distal tip of toe. No open lesions or fissures noted at this time. Right foot second digit : Hyperkeratotic tissue noted to distal tip of toe with underlying ulceration present. No clinical signs of infection noted at this time Vasc: DP/PT pulses palpable 2/4 b/l. CFT < 3 seconds to all digits. Skin temperature warm to warm from proximal to distal b/l Neuro: Epicritic and protective sensation grossly absent b/l MSK: Muscle strength 5/5 to all major muscle groups b/l Right 2nd digit plantarly shows pre-ulcerative lesion with hyperkeratotic callus over the lesion plantarly. - Neurological Exam Neurological Exam: Alert, Awake, Oriented x3 - Psychiatric Exam Psychiatric exam: Normal Affect, Normal Mood - Skin Skin Exam: Normal Color, Warm Assessment and Plan - Assessment and Plan (Free Text) Assessment: 56 year old female patient presenting with Left hallux plantar ulceration, and distal toe callus formation to right 2nd digit Plan: Patient seen and evaluated at bedside Charts, labs and vitals reviewed; afebrile Left first digit were dressed with silvadene & DSD. Patient advised to keep dressing C/D/I Continue IV abx per ID. Applied crest pads to left 2nd 3rd digits in effort to offloading ulceration sites during weightbearing activity. Physical therapy ordered for ambulation with forefoot wedge shoe to right foot Podiatry will continue to follow while patient is in house <Rodríguez Little - Last Filed: 12/09/16 08:22> Objective - Vital Signs/Intake and Output Vital Signs (last 24 hours): Temp Pulse Resp BP Pulse Ox 98.3 F 90 20 115/71 96 12/09/16 06:00 12/09/16 06:00 12/09/16 06:00 12/09/16 06:00 12/09/16 06:00 - Medications Medications: Current Medications Allopurinol (Zyloprim) 100 mg PO DAILY [facility] PRN Reason: Protocol Last Admin: 12/08/16 10:22 Dose: 100 mg Alprazolam (Xanax) 1 mg PO DAILY [facility] PRN Reason: Protocol Last Admin: 12/08/16 10:26 Dose: 1 mg Aspirin (Ecotrin) 81 mg PO 0800 [facility] PRN Reason: Protocol Last Admin: 12/08/16 08:25 Dose: 81 mg Atorvastatin Calcium (Lipitor) 20 mg PO DIN [facility] PRN Reason: Protocol Last Admin: 12/08/16 17:49 Dose: 20 mg Carvedilol (Coreg) 3.125 mg PO BID [facility] PRN Reason: Protocol Last Admin: 12/08/16 17:48 Dose: 3.125 mg Clopidogrel Bisulfate (Plavix) 75 mg PO DAILY [facility] PRN Reason: Protocol Last Admin: 12/08/16 10:21 Dose: 75 mg Gabapentin (Neurontin) 400 mg PO 0800,1400 [facility] Last Admin: 12/08/16 13:13 Dose: 400 mg Gabapentin (Neurontin) 800 mg PO HS [facility] Last Admin: 12/08/16 21:36 Dose: 800 mg Home Med (Home Med) 0 unit PO BID [facility] PRN Reason: Protocol Last Admin: 12/08/16 17:50 Dose: 1 unit Meropenem 1g/NS 100mL IVPB (Meropenem 1g/Ns 100ml Ivpb) 1 gm in 100 mls @ 100 mls/hr IVPB Q12 [facility] PRN Reason: Protocol Last Admin: 12/08/16 21:37 Dose: 100 mls/hr Insulin Detemir (Levemir) 40 unit SC Q12 [facility] PRN Reason: Protocol Last Admin: 12/08/16 23:14 Dose: 40 unit Insulin Human Regular (Humulin R High) 0 units SC ACHS [facility] PRN Reason: Protocol Last Admin: 12/09/16 06:50 Dose: Not Given Insulin Lispro Protam/Lispro Human (Humalog Mix 75/25) 40 units SC ACBD [facility] PRN Reason: Protocol Last Admin: 12/09/16 08:19 Dose: Not Given Levalbuterol HCl (Xopenex) 1.25 mg IH TIDRESP [facility] PRN Reason: Protocol Last Admin: 12/09/16 07:39 Dose: 1.25 mg Losartan Potassium (Cozaar) 25 mg PO DAILY [facility] PRN Reason: Protocol Last Admin: 12/08/16 10:18 Dose: 25 mg Metformin HCl (Glucophage) 850 mg PO TID [facility] PRN Reason: Protocol Last Admin: 12/08/16 17:50 Dose: 850 mg Montelukast Sodium (Singulair) 10 mg PO HS [facility] PRN Reason: Protocol Last Admin: 12/08/16 21:37 Dose: 10 mg Oxycodone/Acetaminophen (Percocet 5/325 Mg Tab) 1 tab PO Q6H PRN; Protocol PRN Reason: Pain, moderate (4-7) Stop: 12/11/16 17:18 Last Admin: 12/08/16 17:50 Dose: 1 tab Pantoprazole Sodium (Protonix Ec Tab) 20 mg PO 0600 [facility] PRN Reason: Protocol Last Admin: 12/09/16 05:59 Dose: 20 mg Polysaccharide Iron Complex (Ferrex-150) 150 mg PO DAILY [facility] PRN Reason: Protocol Last Admin: 12/08/16 10:19 Dose: 150 mg Quetiapine Fumarate (Seroquel Xr) 50 mg PO HS [facility] PRN Reason: Protocol Last Admin: 12/08/16 21:37 Dose: 50 mg - Labs Labs: 12/06/16 07:00 12/06/16 07:00 Attending/Attestation - Attestation I have personally seen and examined this patient.: Yes I have fully participated in the care of the patient.: Yes I have reviewed all pertinent clinical information, including history, physical exam and plan: Yes
--- NOTE | 2016-12-08 16:30 | PN ---
DATE: SUBJECTIVE: The patient is 56 years old, seen and examined, lying in bed, comfortable. No nausea or vomiting. No diarrhea. Eating and tolerating. Her sugar is running within normal range. PHYSICAL EXAMINATION: VITAL SIGNS: Patient is afebrile, pulse 89, respirations 20, and blood pressure of 112/59. LUNGS: Bilateral fair airflow. No rhonchi or crackles. HEART: S1 and S2 audible. ABDOMEN: Soft, obese, nontender. No rebound, no guarding. NEUROLOGICAL: Patient is awake and alert, communicative. EXTREMITIES: Bilateral leg, no edema, no cellulitis. No leg ulcers. LABORATORY DATA: Blood sugar is 118. ASSESSMENT: 1. Multidrug resistance, failed outpatient treatment. 2. Hypertension. 3. Chronic obstructive pulmonary disease. 4. Insulin-dependent diabetes. PLAN: The patient is currently receiving meropenem that she is going to be finishing tomorrow, so discharge plan is for Sunday. I will continue to monitor blood sugar and continue meropenem as recommended by ID. Colt Zhu MD
[2016-12-08] MEDS: Oxycodone/Acetaminophen 5/325 mg Tab PO PRN (17:50)
--- NOTE | 2016-12-08 18:47 | CP.PCM.PN ---
Subjective - Date & Time of Evaluation Date of Evaluation: 12/08/16 Time of Evaluation: 11:55 - Subjective Subjective: Comfortable, no dysuria, no nausea, no fevers. Objective - Vital Signs/Intake and Output Vital Signs (last 24 hours): Temp Pulse Resp BP Pulse Ox 98.1 F 91 H 20 118/61 94 L 12/08/16 08:50 12/08/16 08:50 12/08/16 08:50 12/08/16 08:50 12/08/16 08:50 - Medications Medications: Current Medications Allopurinol (Zyloprim) 100 mg PO DAILY [facility] PRN Reason: Protocol Last Admin: 12/07/16 10:43 Dose: 100 mg Alprazolam (Xanax) 1 mg PO DAILY [facility] PRN Reason: Protocol Last Admin: 12/07/16 10:42 Dose: 1 mg Aspirin (Ecotrin) 81 mg PO 0800 [facility] PRN Reason: Protocol Last Admin: 12/08/16 08:25 Dose: 81 mg Atorvastatin Calcium (Lipitor) 20 mg PO DIN [facility] PRN Reason: Protocol Last Admin: 12/07/16 18:00 Dose: 20 mg Carvedilol (Coreg) 3.125 mg PO BID [facility] PRN Reason: Protocol Last Admin: 12/07/16 18:33 Dose: 3.125 mg Clopidogrel Bisulfate (Plavix) 75 mg PO DAILY [facility] PRN Reason: Protocol Last Admin: 12/07/16 10:43 Dose: 75 mg Gabapentin (Neurontin) 400 mg PO 0800,1400 [facility] Last Admin: 12/08/16 08:25 Dose: 400 mg Gabapentin (Neurontin) 800 mg PO HS [facility] Last Admin: 12/07/16 21:42 Dose: 800 mg Home Med (Home Med) 0 unit PO BID [facility] PRN Reason: Protocol Last Admin: 12/07/16 18:33 Dose: 1 unit Meropenem 1g/NS 100mL IVPB (Meropenem 1g/Ns 100ml Ivpb) 1 gm in 100 mls @ 100 mls/hr IVPB Q12 [facility] PRN Reason: Protocol Last Admin: 12/07/16 22:03 Dose: 100 mls/hr Insulin Detemir (Levemir) 40 unit SC Q12 [facility] PRN Reason: Protocol Last Admin: 12/07/16 22:34 Dose: Not Given Insulin Human Regular (Humulin R High) 0 units SC ACHS [facility] PRN Reason: Protocol Last Admin: 12/08/16 06:36 Dose: Not Given Insulin Lispro Protam/Lispro Human (Humalog Mix 75/25) 40 units SC ACBD [facility] PRN Reason: Protocol Last Admin: 12/08/16 06:36 Dose: Not Given Levalbuterol HCl (Xopenex) 1.25 mg IH TIDRESP [facility] PRN Reason: Protocol Last Admin: 12/08/16 07:14 Dose: 1.25 mg Losartan Potassium (Cozaar) 25 mg PO DAILY [facility] PRN Reason: Protocol Last Admin: 12/07/16 10:38 Dose: 25 mg Metformin HCl (Glucophage) 850 mg PO TID [facility] PRN Reason: Protocol Last Admin: 12/07/16 18:33 Dose: 850 mg Montelukast Sodium (Singulair) 10 mg PO HS [facility] PRN Reason: Protocol Last Admin: 12/07/16 21:42 Dose: 10 mg Pantoprazole Sodium (Protonix Ec Tab) 20 mg PO 0600 [facility] PRN Reason: Protocol Last Admin: 12/08/16 05:19 Dose: 20 mg Polysaccharide Iron Complex (Ferrex-150) 150 mg PO DAILY [facility] PRN Reason: Protocol Last Admin: 12/07/16 10:39 Dose: 150 mg Quetiapine Fumarate (Seroquel Xr) 50 mg PO HS [facility] PRN Reason: Protocol Last Admin: 12/07/16 21:42 Dose: 50 mg - Labs Labs: 12/06/16 07:00 12/06/16 07:00 - Constitutional Appears: Non-toxic, No Acute Distress - Head Exam Head Exam: NORMAL INSPECTION - ENT Exam ENT Exam: Mucous Membranes Moist - Neck Exam Neck Exam: absent: Meningismus - Respiratory Exam Respiratory Exam: Decreased Breath Sounds - Cardiovascular Exam Cardiovascular Exam: +S1, +S2 - GI/Abdominal Exam GI & Abdominal Exam: Soft. absent: Tenderness Assessment and Plan - Assessment and Plan (Free Text) Plan: Assessment Probable sepsis due to UTI; multiple species growing from urine cx; urine cx taken from Dr. Frank's office shows E. coli which is resistant to many antibiotics but sensitive to Imipenem (but not ESBL-producing) COPD obesity with BMI 31 fibromyalgia history of UTI's restless leg syndrome history of pneumonia HTN chronic CHF DM history of kidney stones history of endometriosis S/P oophorectomy history of cellulitis of lower extremities Plan continue Merrem day 9 (discussed with Dr. Frank that she has resistant bacteria in her most recent outpatient urine cx); urine cx have been repeated today; blood cx are negative; renal ultrasound is normal - should plan for 7-10 days of antibiotics (day 9 today) - discussed with Dr. Zhu will continue to monitor clinically would suggest Urology evaluation even as an outpatient
[2016-12-08] MEDS: QUEtiapine 50 mg XR Tab PO SCH (21:37)
[2016-12-09] MEDS: Pantoprazole 20 mg EC Tab PO SCH (05:59)
[2016-12-09] MEDS: Insulin Reg-HIGH-Coverage SC SCH ×4 (06:50→23:38)
[2016-12-09] MEDS: Levalbuterol 1.25 MG/3 ML Inhal Soln UD IH SCH ×3 (07:39→20:30)
[2016-12-09] MEDS: Insulin Lispro (humaLOG) MIX 75/25(10 ml) SC SCH ×2 (08:19→16:56)
--- NOTE | 2016-12-09 09:54 | CP.PCM.PN ---
<Vicky Anderson - Last Filed: 12/09/16 09:50> Subjective - Date & Time of Evaluation Date of Evaluation: 12/09/16 Time of Evaluation: 09:50 - Subjective Subjective: 56 year old female seen at bedside this morning with attending, Dr. Little regarding Left foot ulceration to plantar hallux and hammertoe deformities bilaterally. Dressing to Left hallux and right 2nd digit appear clean dry and intact. She denies of any pain to the site of ulcerations. Denies any n/v/f/c/ sob/cp. Patient states that she is going home tomorrow. Objective - Vital Signs/Intake and Output Vital Signs (last 24 hours): Temp Pulse Resp BP Pulse Ox 98.3 F 90 20 115/71 96 12/09/16 06:00 12/09/16 06:00 12/09/16 06:00 12/09/16 06:00 12/09/16 06:00 - Medications Medications: Current Medications Allopurinol (Zyloprim) 100 mg PO DAILY MAMADOU PRN Reason: Protocol Last Admin: 12/08/16 10:22 Dose: 100 mg Alprazolam (Xanax) 1 mg PO DAILY [facility] PRN Reason: Protocol Last Admin: 12/08/16 10:26 Dose: 1 mg Aspirin (Ecotrin) 81 mg PO 0800 [facility] PRN Reason: Protocol Last Admin: 12/09/16 08:22 Dose: 81 mg Atorvastatin Calcium (Lipitor) 20 mg PO DIN [facility] PRN Reason: Protocol Last Admin: 12/08/16 17:49 Dose: 20 mg Carvedilol (Coreg) 3.125 mg PO BID [facility] PRN Reason: Protocol Last Admin: 12/08/16 17:48 Dose: 3.125 mg Clopidogrel Bisulfate (Plavix) 75 mg PO DAILY [facility] PRN Reason: Protocol Last Admin: 12/08/16 10:21 Dose: 75 mg Gabapentin (Neurontin) 400 mg PO 0800,1400 [facility] Last Admin: 12/09/16 08:22 Dose: 400 mg Gabapentin (Neurontin) 800 mg PO HS [facility] Last Admin: 12/08/16 21:36 Dose: 800 mg Home Med (Home Med) 0 unit PO BID [facility] PRN Reason: Protocol Last Admin: 12/08/16 17:50 Dose: 1 unit Meropenem 1g/NS 100mL IVPB (Meropenem 1g/Ns 100ml Ivpb) 1 gm in 100 mls @ 100 mls/hr IVPB Q12 [facility] PRN Reason: Protocol Last Admin: 12/08/16 21:37 Dose: 100 mls/hr Insulin Detemir (Levemir) 40 unit SC Q12 [facility] PRN Reason: Protocol Last Admin: 12/08/16 23:14 Dose: 40 unit Insulin Human Regular (Humulin R High) 0 units SC ACHS [facility] PRN Reason: Protocol Last Admin: 12/09/16 06:50 Dose: Not Given Insulin Lispro Protam/Lispro Human (Humalog Mix 75/25) 40 units SC ACBD [facility] PRN Reason: Protocol Last Admin: 12/09/16 08:19 Dose: Not Given Levalbuterol HCl (Xopenex) 1.25 mg IH TIDRESP [facility] PRN Reason: Protocol Last Admin: 12/09/16 07:39 Dose: 1.25 mg Losartan Potassium (Cozaar) 25 mg PO DAILY [facility] PRN Reason: Protocol Last Admin: 12/08/16 10:18 Dose: 25 mg Metformin HCl (Glucophage) 850 mg PO TID [facility] PRN Reason: Protocol Last Admin: 12/08/16 17:50 Dose: 850 mg Montelukast Sodium (Singulair) 10 mg PO HS [facility] PRN Reason: Protocol Last Admin: 12/08/16 21:37 Dose: 10 mg Oxycodone/Acetaminophen (Percocet 5/325 Mg Tab) 1 tab PO Q6H PRN; Protocol PRN Reason: Pain, moderate (4-7) Stop: 12/11/16 17:18 Last Admin: 12/08/16 17:50 Dose: 1 tab Pantoprazole Sodium (Protonix Ec Tab) 20 mg PO 0600 [facility] PRN Reason: Protocol Last Admin: 12/09/16 05:59 Dose: 20 mg Polysaccharide Iron Complex (Ferrex-150) 150 mg PO DAILY [facility] PRN Reason: Protocol Last Admin: 12/08/16 10:19 Dose: 150 mg Quetiapine Fumarate (Seroquel Xr) 50 mg PO HS [facility] PRN Reason: Protocol Last Admin: 12/08/16 21:37 Dose: 50 mg - Labs Labs: 12/06/16 07:00 12/06/16 07:00 - Constitutional Appears: Well, Non-toxic, No Acute Distress - Extremities Exam Additional comments: Lower extremity focused exam: Vasc: DP and PT pulses palpable 2/4 b/l. CFT < 3 seconds to all digits. Skin temperature warm to warm from proximal to distal b/l Derm: Left foot first digit: Approx. 0.3 cm x 0.3 cm Bailey grade 1 ulceration noted to distal tip of hallux. Hyperkeratotic tissue noted to periwound area absent of erythema. No drainage, no malodor or other clinical signs of infection noted at this time. Left foot second digit: Hyperkeratotic tissue noted to distal tip of toe. No open lesions or fissures noted at this time. Right foot second digit: Hyperkeratotic tissue noted to distal tip of toe with underlying ulceration present. No clinical signs of infection noted at this time Neuro: Epicritic and protective sensation grossly absent b/l Ortho: Muscle strength 5/5 to all major muscle groups b/l. Contracted digits 2- 5 noted b/l. - Neurological Exam Neurological Exam: Alert, Awake, Oriented x3 - Psychiatric Exam Psychiatric exam: Normal Affect, Normal Mood Assessment and Plan - Assessment and Plan (Free Text) Assessment: 56 year old female patient presenting with Left hallux plantar ulceration, and distal toe callus formation to right 2nd digit Plan: Patient examined and evaluated at bedside with attending, Dr. Little Charts, labs and vitals reviewed; afebrile Left first digit and right second digit were dressed with silvadene & DSD. Patient advised to keep dressing C/D/I Continue IV abx per ID. Applied crest pads to left 2nd 3rd digits in effort to offloading ulceration sites during weightbearing activity. Physical therapy ordered for ambulation with forefoot wedge shoe to right foot Patient is stable for d/c from podiatry standpoint Podiatry will continue to follow while patient is in house <Rodríguez Little - Last Filed: 12/12/16 11:51> Objective - Vital Signs/Intake and Output Vital Signs (last 24 hours): Temp Pulse Resp BP Pulse Ox 98.1 F 79 18 110/70 96 12/10/16 10:47 12/10/16 10:47 12/10/16 10:47 12/10/16 10:47 12/10/16 10:47 - Labs Labs: 12/06/16 07:00 12/06/16 07:00 Attending/Attestation - Attestation I have personally seen and examined this patient.: Yes I have fully participated in the care of the patient.: Yes
[2016-12-09] MEDS: Oxycodone/Acetaminophen 5/325 mg Tab PO PRN ×2 (11:09→18:24)
[2016-12-09] MEDS: Iron Complex Polysacch 150mg Cap PO SCH (11:12)
[2016-12-09] MEDS: FLUVOXAMINE 25 MG PO SCH ×2 (11:12→17:13)
[2016-12-09] MEDS: Insulin Detemir 100 units/ml Vial (Levemir) SC SCH ×2 (11:13→23:39)
[2016-12-09] MEDS: Meropenem 1g/NS 100mL IVPB 1 GM/100 ML PIGGYBACK IVPB SCH ×2 (11:14→22:08)
--- NOTE | 2016-12-09 13:08 | PN ---
SUBJECTIVE: The patient is a 56 years old, seen and examined, lying in bed, states she is tired because she did not sleep well last night. PHYSICAL EXAMINATION: VITAL SIGNS: She is afebrile, pulse 85, respirations 15, blood pressure 113/66. LUNGS: Bilateral fair air flow. No rhonchi or crackles. HEART: S1 and S2 audible. ABDOMEN: Soft, obese, nontender. No rebound, no guarding. NEUROLOGIC: The patient is awake and alert, communicative. ASSESSMENT: 1. Multidrug-resistant urinary tract infection. 2. Failed outpatient treatment. 3. Chronic obstructive pulmonary disease. 4. Anxiety disorder. 5. Chronic anemia. 6. Insulin-dependent diabetes. 7. Hyperlipidemia. PLAN: We will continue the patient on current medications and she will receive her last dose of meropenem tomorrow and we will make discharge plan tomorrow. Colt Zhu MD
--- NOTE | 2016-12-09 14:48 | PN ---
DATE: 12/08/2016 SUBJECTIVE: The patient is seen, walking in the hallway. She is awake. She is alert. She is comfortable. She denies any pain. She denies any shortness of breath. She does have a cough with some greenish phlegm. PHYSICAL EXAMINATION: GENERAL: Middle-aged lady sitting in chair. VITAL SIGNS: Blood pressure 134/79, heart rate 85, respiratory rate 15, temperature 97.9. HEENT: Normocephalic, atraumatic. NECK: Supple, no JVD. LUNGS: Bilateral equal air entry, bilateral equal expansion. No rales. CARDIAC: S1, S2, regular rate and rhythm, no murmur, no rub. ABDOMEN: Obese, distended, soft, nontender, bowel sounds present. EXTREMITIES: No lower extremity edema. LABORATORY DATA: No new labs. MEDICATIONS: Coreg 3.125 b.i.d., losartan 25, Ecotrin, Ferrex, metformin 850 t.i.d., insulin, Lipitor, meropenem, Neurontin, Plavix, Protonix, Seroquel, Singulair, Xanax, Xopenex, and allopurinol. ASSESSMENT: 1. Resolved acute kidney injury. 2. Chronic kidney disease, stage I. 3. Resistant E. coli urinary tract infection. 4. [id number] diabetes mellitus. 5. Cardiomyopathy. PLAN: 1. Continue Cozaar for renal protection. 2. Continue metformin for diabetes. 3. Antibiotics completed. 4. Continue physical therapy. 5. Discharge planning. Elva Frank MD cc:
[2016-12-09 15:52] VITALS: RESP 18
--- NOTE | 2016-12-09 19:44 | PN ---
DATE: 12/09/2016 SUBJECTIVE: The patient was seen earlier this morning in room 303. The patient is doing well. No nausea. She states she is much improved. PHYSICAL EXAMINATION: VITAL SIGNS: Temperature is 98, blood pressure is now 120/70, and respiratory rate of 16. HEENT: Unremarkable. NECK: Supple. LUNGS: Decreased breath sounds. HEART: Normal S1 and S2. ABDOMEN: Soft and nontender. LABORATORY DATA: Revealed the patient have white count of 8.6, hemoglobin of 9 and platelets of 237. Chemistries reveals BUN of 41, creatinine of 1.0. Microbiology reveals the blood cultures are negative. Review of orders reveals the patient to be on meropenem. The urine cultures are also reported to be negative. Dr. Zhu's note is reviewed. ASSESSMENT AND PLAN: A 56-year-old female with sepsis due to urinary tract infection of multiple species growing urine culture taken by Dr. Frank's office with Escherichia Coli resistant to antibiotics meropenem, to sensitive meropenem although, not extended-spectrum beta-lactamases producing. Her day is day #10 of meropenem and then the urology evaluation as an outpatient. Dr. Zhu's note is reviewed. She is planning to discharge the patient tomorrow. We will follow with you. Terrance Kent MD
--- NOTE | 2016-12-09 21:13 | PN ---
DATE: 12/09/2016 SUBJECTIVE: The patient is seen sitting in bed. She is awake, she is alert, she is comfortable. She denies any pain. She denies any shortness of breath. She does have a cough. She denies any urinary complaints PHYSICAL EXAMINATION: GENERAL: Elderly lady, sitting in bed. VITAL SIGNS: Blood pressure 103/62, heart rate 83, respiratory rate 18, temperature 97.9. HEENT: Normocephalic, atraumatic. NECK: Supple, no JVD. LUNGS: Bilateral equal air entry, bilateral equal expansion. CARDIAC: S1 and S2, regular rate and rhythm, no murmur, no rub. ABDOMEN: Obese, distended, soft, nontender, bowel sounds present. EXTREMITIES: No lower extremity edema. INTAKE AND OUTPUT: Not charted. LABORATORY DATA: No new labs. MEDICATIONS: Coreg, losartan, Ecotrin, Ferrex, Glucophage, insulin, Levemir, Lipitor, meropenem, Neurontin, oxycodone, Plavix, Protonix, Singulair, Xanax. ASSESSMENT: 1. Resolved acute kidney injury. 2. Underlying chronic kidney disease, stage I. 3. Non-insulin dependent diabetes mellitus. 4. Status post urinary tract infection. 5. Hypertension. PLAN: 1. Continue current management. 2. Continue physical therapy. 3. Continue fingerstick monitoring. 4. Continue metformin Elva Frank MD
[2016-12-09] MEDS: QUEtiapine 50 mg XR Tab PO SCH (22:10)
[2016-12-10] MEDS: Pantoprazole 20 mg EC Tab PO SCH (05:53)
[2016-12-10] MEDS: Oxycodone/Acetaminophen 5/325 mg Tab PO PRN ×2 (05:55→14:06)
[2016-12-10] MEDS: Insulin Reg-HIGH-Coverage SC SCH ×2 (07:06→12:13)
[2016-12-10] MEDS: Insulin Lispro (humaLOG) MIX 75/25(10 ml) SC SCH (07:06)
[2016-12-10] MEDS: Levalbuterol 1.25 MG/3 ML Inhal Soln UD IH SCH ×2 (07:25→13:39)
[2016-12-10] MEDS: Iron Complex Polysacch 150mg Cap PO SCH (10:47)
[2016-12-10 10:48] VITALS: TEMP 98.1; O2SAT 96
[2016-12-10] MEDS: FLUVOXAMINE 25 MG PO SCH (10:48)
[2016-12-10] MEDS: Insulin Detemir 100 units/ml Vial (Levemir) SC SCH (10:49)
[2016-12-10] MEDS: Meropenem 1g/NS 100mL IVPB 1 GM/100 ML PIGGYBACK IVPB SCH (10:49)
[2016-12-10 10:53] VITALS: BP 110/70; PULSE 79
--- NOTE | 2016-12-10 14:25 | CP.PCM.PN ---
<Vicky Anderson - Last Filed: 12/10/16 14:23> Subjective - Date & Time of Evaluation Date of Evaluation: 12/10/16 Time of Evaluation: 14:23 - Subjective Subjective: 56 year old female seen at bedside today regarding Left foot ulceration to plantar hallux and hammertoe deformities bilaterally. Dressing to Left hallux and right 2nd digit appear clean dry and intact. She denies of any pain to the site of ulcerations. Denies any n/v/f/c/sob/cp. Patient states that she is going home today. Objective - Vital Signs/Intake and Output Vital Signs (last 24 hours): Temp Pulse Resp BP Pulse Ox 98.1 F 79 18 110/70 96 12/10/16 10:47 12/10/16 10:47 12/10/16 10:47 12/10/16 10:47 12/10/16 10:47 Intake and Output: 12/10/16 12/10/16 06:59 18:59 Intake Total 620 Balance 620 - Medications Medications: Current Medications Allopurinol (Zyloprim) 100 mg PO DAILY MAMADOU PRN Reason: Protocol Last Admin: 12/10/16 10:50 Dose: 100 mg Alprazolam (Xanax) 1 mg PO DAILY [facility] PRN Reason: Protocol Last Admin: 12/10/16 10:41 Dose: 1 mg Aspirin (Ecotrin) 81 mg PO 0800 [facility] PRN Reason: Protocol Last Admin: 12/10/16 08:31 Dose: 81 mg Atorvastatin Calcium (Lipitor) 20 mg PO DIN [facility] PRN Reason: Protocol Last Admin: 12/09/16 17:12 Dose: 20 mg Carvedilol (Coreg) 3.125 mg PO BID [facility] PRN Reason: Protocol Last Admin: 12/10/16 10:46 Dose: 3.125 mg Clopidogrel Bisulfate (Plavix) 75 mg PO DAILY [facility] PRN Reason: Protocol Last Admin: 12/10/16 10:50 Dose: 75 mg Gabapentin (Neurontin) 400 mg PO 0800,1400 [facility] Last Admin: 12/10/16 14:09 Dose: 400 mg Gabapentin (Neurontin) 800 mg PO HS [facility] Last Admin: 12/09/16 22:11 Dose: 800 mg Home Med (Home Med) 0 unit PO BID [facility] PRN Reason: Protocol Last Admin: 12/10/16 10:48 Dose: 1 unit Meropenem 1g/NS 100mL IVPB (Meropenem 1g/Ns 100ml Ivpb) 1 gm in 100 mls @ 100 mls/hr IVPB Q12 [facility] PRN Reason: Protocol Last Admin: 12/10/16 10:49 Dose: 100 mls/hr Insulin Detemir (Levemir) 40 unit SC Q12 [facility] PRN Reason: Protocol Last Admin: 12/10/16 10:49 Dose: 40 unit Insulin Human Regular (Humulin R High) 0 units SC ACHS [facility] PRN Reason: Protocol Last Admin: 12/10/16 12:13 Dose: 4 units Insulin Lispro Protam/Lispro Human (Humalog Mix 75/25) 40 units SC ACBD [facility] PRN Reason: Protocol Last Admin: 12/10/16 07:06 Dose: Not Given Levalbuterol HCl (Xopenex) 1.25 mg IH TIDRESP [facility] PRN Reason: Protocol Last Admin: 12/10/16 13:39 Dose: 1.25 mg Losartan Potassium (Cozaar) 25 mg PO DAILY [facility] PRN Reason: Protocol Last Admin: 12/10/16 10:47 Dose: 25 mg Metformin HCl (Glucophage) 850 mg PO TID [facility] PRN Reason: Protocol Last Admin: 12/10/16 14:08 Dose: 850 mg Montelukast Sodium (Singulair) 10 mg PO HS [facility] PRN Reason: Protocol Last Admin: 12/09/16 22:10 Dose: 10 mg Oxycodone/Acetaminophen (Percocet 5/325 Mg Tab) 1 tab PO Q6H PRN; Protocol PRN Reason: Pain, moderate (4-7) Stop: 12/11/16 17:18 Last Admin: 12/10/16 14:06 Dose: 1 tab Pantoprazole Sodium (Protonix Ec Tab) 20 mg PO 0600 [facility] PRN Reason: Protocol Last Admin: 12/10/16 05:53 Dose: 20 mg Polysaccharide Iron Complex (Ferrex-150) 150 mg PO DAILY [facility] PRN Reason: Protocol Last Admin: 12/10/16 10:47 Dose: 150 mg Quetiapine Fumarate (Seroquel Xr) 50 mg PO HS [facility] PRN Reason: Protocol Last Admin: 12/09/16 22:10 Dose: 50 mg - Labs Labs: 12/06/16 07:00 12/06/16 07:00 - Constitutional Appears: Well, Non-toxic, No Acute Distress - Extremities Exam Additional comments: Lower extremity focused exam: Vasc: DP and PT pulses palpable 2/4 b/l. CFT < 3 seconds to all digits. Skin temperature warm to warm from proximal to distal b/l Derm: Left foot first digit: Approx. 0.3 cm x 0.3 cm Bailey grade 1 ulceration noted to distal tip of hallux. Hyperkeratotic tissue noted to periwound area absent of erythema. No drainage, no malodor or other clinical signs of infection noted at this time. Left foot second digit: Hyperkeratotic tissue noted to distal tip of toe. No open lesions or fissures noted at this time. Right foot second digit: Hyperkeratotic tissue noted to distal tip of toe Neuro: Epicritic and protective sensation grossly absent b/l Ortho: Muscle strength 5/5 to all major muscle groups b/l. Contracted digits 2- 5 noted b/l. - Neurological Exam Neurological Exam: Alert, Awake, Oriented x3 - Psychiatric Exam Psychiatric exam: Normal Affect, Normal Mood Assessment and Plan - Assessment and Plan (Free Text) Assessment: 56 year old female patient presenting with Left hallux plantar ulceration, and distal toe callus formation to right 2nd digit Plan: Patient examined and evaluated at bedside Discussed with attending, Dr. Little Charts, labs and vitals reviewed; afebrile Left first digit dressed with silvadene & DSD. Patient advised to keep dressing C/D/I Continue IV abx per ID. Applied crest pads to left 2nd 3rd digits in effort to offloading ulceration sites during weightbearing activity. Physical therapy ordered for ambulation with forefoot wedge shoe to right foot Patient is stable for d/c from podiatry standpoint Podiatry will continue to follow while patient is in house <Rodríguez Little - Last Filed: 12/12/16 11:55> Objective - Vital Signs/Intake and Output Vital Signs (last 24 hours): Temp Pulse Resp BP Pulse Ox 98.1 F 79 18 110/70 96 12/10/16 10:47 12/10/16 10:47 12/10/16 10:47 12/10/16 10:47 12/10/16 10:47 - Labs Labs: 12/06/16 07:00 12/06/16 07:00 Attending/Attestation - Attestation I have personally seen and examined this patient.: Yes I have fully participated in the care of the patient.: Yes I have reviewed all pertinent clinical information, including history, physical exam and plan: Yes
--- NOTE | 2016-12-10 15:54 | PN ---
DATE: 12/10/2016 SUBJECTIVE: The patient is in bed, in no acute distress. PHYSICAL EXAMINATION: VITAL SIGNS: Temperature 98, blood pressure is 81/50, respiratory rate of 18. HEENT: Unremarkable. NECK: Supple. LUNGS: Decreased breath sounds. HEART: Normal S1 and S2. ABDOMEN: Soft. LABORATORY DATA: Examination reveals a white count of 8.6. Reviewing the medications, I have noted the patient to be on meropenem. ASSESSMENT AND PLAN: A 56-year-old female with sepsis due to urinary tract infection, multiple species growing in her urine cultures by Dr. Frank's office Escherichia coli, resistant to antibiotics and sensitive to meropenem, although not extended-spectrum beta-lactamase, today is day #11 of meropenem and possible discharge today. Terrance Kent MD
--- NOTE | 2016-12-11 10:10 | DS ---
HISTORY OF PRESENT ILLNESS: The patient is a 56-year-old female who is seen and examined, lying in bed, and seems to be comfortable. No nausea or vomiting and no diarrhea. Eating, tolerating and ambulating. No urinary symptoms. No bowel symptoms. PHYSICAL EXAMINATION: VITAL SIGNS: She is afebrile, pulse is 81, respirations are 18, and blood pressure is 110/70. LUNGS: Bilateral fair airflow. No rhonchi or crackles. HEART: S1 and S2 audible. ABDOMEN: Soft, obese, and nontender. No rebound. No guarding. NEUROLOGIC: She is awake and alert. Able to communicate. LABORATORY DATA: Blood sugar is 107. ASSESSMENT: 1. Multidrug-resistant urinary tract infection. 2. Failed outpatient treatment. 3. Chronic obstructive pulmonary disease. 4. History of hypertension. 5. Insulin-dependent diabetes. 6. Status post acute kidney injury that is significantly improved. PLAN: The patient is to finish her course of 7 days of meropenem. She is hemodynamically and clinically stable. She will be discharged today. She will resume her medications as per record. Colt Zhu MD
== END 2016-12-10 18:53 | disposition home or self-care (01) | DRG 690 ==
LOC: TRCU 18:33
PROVIDERS: ADMIT Internal Medicine; ATTEND Internal Medicine
PROC: F07Z9FZ Gait Training/Functional Ambulation Treatment using Assistive, Adaptive, Supportive or Protective Equipment (ICD-10-PCS; principal; 2016-12-05)
PROC: F07M6ZZ Therapeutic Exercise Treatment of Musculoskeletal System - Whole Body (ICD-10-PCS; 2016-12-05)
DX: N39.0 Urinary tract infection, site not specified (principal); N17.9 Acute kidney failure, unspecified; I42.9 Cardiomyopathy, unspecified; I13.0 Hypertensive heart and chronic kidney disease with heart failure and stage 1 through stage 4 chronic kidney disease, or unspecified chronic kidney disease; I50.9 Heart failure, unspecified; E11.21 Type 2 diabetes mellitus with diabetic nephropathy; E11.40 Type 2 diabetes mellitus with diabetic neuropathy, unspecified; E11.22 Type 2 diabetes mellitus with diabetic chronic kidney disease; J44.9 Chronic obstructive pulmonary disease, unspecified; N18.1 Chronic kidney disease, stage 1; E11.621 Type 2 diabetes mellitus with foot ulcer; B96.20 Unspecified Escherichia coli [E. coli] as the cause of diseases classified elsewhere; L97.529 Non-pressure chronic ulcer of other part of left foot with unspecified severity; Z16.24 Resistance to multiple antibiotics; D64.9 Anemia, unspecified; E66.9 Obesity, unspecified; Z68.31 Body mass index [BMI] 31.0-31.9, adult; E78.5 Hyperlipidemia, unspecified; F41.9 Anxiety disorder, unspecified; G25.81 Restless legs syndrome; M20.40 Other hammer toe(s) (acquired), unspecified foot; M79.7 Fibromyalgia; Z79.4 Long term (current) use of insulin; Z79.84 Long term (current) use of oral hypoglycemic drugs; Z79.899 Other long term (current) drug therapy; Z87.01 Personal history of pneumonia (recurrent); Z87.440 Personal history of urinary (tract) infections; Z87.442 Personal history of urinary calculi; Z87.891 Personal history of nicotine dependence; Z90.49 Acquired absence of other specified parts of digestive tract; Z95.5 Presence of coronary angioplasty implant and graft; Z88.8 Allergy status to other drugs, medicaments and biological substances; E11.649 Type 2 diabetes mellitus with hypoglycemia without coma; R32 Unspecified urinary incontinence; F32.89 Other specified depressive episodes; Z90.722 Acquired absence of ovaries, bilateral; L84 Corns and callosities

== ENCOUNTER 2017-03-22 14:53 | Inpatient (IN) | payer MEDICARE ==
--- NOTE | 2017-03-22 16:06 | ED PDOC ---
Arrival/HPI - General Historian: Patient <Beatriz Pruett A - Last Filed: 03/22/17 21:01> <MiteshAdrianeNathan - Last Filed: 03/22/17 23:37> - General Chief Complaint: Abdominal Pain Time Seen by Provider: 03/22/17 15:32 - History of Present Illness Narrative History of Present Illness (Text): 03/22/17 16:04 56yo female with PMHx of hypertension, hypercholestremia, Diabetes, COPD, CHF who was referred to ED by her PMD for abdominal wall cellulitis. Patient notes abscess and redness to the abdominal wall x 3days. She saw Dr. Zhu today and was referred to ED. +chills. Denies fever, nausea, vomiting, any other complaint. (Beatriz Pruett A) Past Medical History - Provider Review Nursing Documentation Reviewed: Yes - Infectious Disease Hx of Infectious Diseases: None - Tetanus Immunization Tetanus Immunization: Unknown - Reproductive Menopause: Yes (3 years) - Cardiac Hx Congestive Heart Failure: Yes Hx Hypertension: Yes - Pulmonary Hx Chronic Obstructive Pulmonary Disease (COPD): Yes - Neurological Hx Neurological Disorder: Yes Hx Dizziness: Yes Other/Comment: Restless leg syndrome. Fibromyalgia - HEENT Hx HEENT Disorder: Yes Hx Epistaxis: Yes - Renal Hx Renal Disorder: Yes Hx Kidney Stones: Yes Hx Renal Failure: Yes - Endocrine/Metabolic Hx Diabetes Mellitus Type 2: Yes - Hematological/Oncological Hx Blood Disorders: Yes Hx Anemia: Yes - Integumentary Hx Dermatological Disorder: Yes - Musculoskeletal/Rheumatological Hx Falls: No - Gastrointestinal Hx Gastrointestinal Disorders: Yes - Genitourinary/Gynecological Hx Genitourinary Disorders: Yes Hx Incontinence: Yes Hx Urinary Tract Infection: Yes Other/Comment: Endometriosis - Psychiatric Hx Psychophysiologic Disorder: Yes Hx Anxiety: Yes Hx Depression: Yes Hx Emotional Abuse: No Hx Physical Abuse: No Hx Substance Use: No - Surgical History Hx Appendectomy: Yes Hx Cardiac Catheterization: Yes Hx Coronary Stent: Yes Other/Comment: Abd lap W R oophorectomy & partial L oophrectomy. c section, I & D cellulitis both legs, bilateral axilla, - Anesthesia Hx Anesthesia: Yes Hx Anesthesia Reactions: No Hx Malignant Hyperthermia: No - Suicidal Assessment Feels Threatened In Home Enviroment: No <Beatriz Pruett A - Last Filed: 03/22/17 21:01> Family/Social History - Physician Review Nursing Documentation Reviewed: Yes Family/Social History: Unknown Family HX Smoking Status: Never Smoked Hx Alcohol Use: No Hx Substance Use: No Hx Substance Use Treatment: No <DiruHappiness A - Last Filed: 03/22/17 21:01> Allergies/Home Meds <Diru,Happiness A - Last Filed: 03/22/17 21:01> <MiteshAdrianeNathan - Last Filed: 03/22/17 23:37> Allergies/Adverse Reactions: Allergies theophylline Allergy (Verified 03/22/17 19:48) NAUSEA Home Medications: Home Meds Medication Instructions Recorded Confirmed Atorvastatin Calcium [Lipitor] 20 mg PO DAILY 07/08/12 03/22/17 Carvedilol 3.125 mg PO BID 07/08/12 03/22/17 Lactobacillus Acidophilus 109 mg PO DAILY 07/08/12 03/22/17 [Acidophilus] fluvoxaMINE [Luvox] 25 mg PO BID 06/26/14 03/22/17 ALPRAZolam [Xanax] 0.25 tab PO BID 09/16/15 03/22/17 Clopidogrel [Plavix] 75 mg PO DAILY 10/30/16 03/22/17 Albuterol HFA [Ventolin HFA 90 1 puff IH PRN PRN 11/29/16 03/22/17 mcg/actuation (8 g)] Allopurinol [Zyloprim] 300 mg PO DAILY 11/29/16 03/22/17 Aspirin [Ecotrin] 81 mg PO DAILY 11/29/16 03/22/17 Calcium/Vitamin D [Oyster Shell 1 tab PO DAILY 11/29/16 03/22/17 Calcium/Vitamin D 500 mg-200 IU] Furosemide [Lasix] 40 mg PO DAILY 11/29/16 03/22/17 Gabapentin [Neurontin] 600 mg PO QID 11/29/16 03/22/17 Gemfibrozil [Lopid] 600 mg PO BID 11/29/16 03/22/17 Insulin Aspart, Recombinant 45 units SQ TID 11/29/16 03/22/17 [Novolog] Insulin Glargine, Recombina 45 units SQ BID 11/29/16 03/22/17 [Lantus] Iron Sucrose Complex [Venofer] 0 mg PO Q30D 11/29/16 03/22/17 Losartan [Cozaar] 25 mg PO DAILY 11/29/16 03/22/17 Montelukast [Singulair] 10 mg PO DAILY 11/29/16 03/22/17 Multivit-Minerals/Folic Acid 1 tab PO DAILY 11/29/16 03/22/17 [Adult Multi Gummies] Pantoprazole [Protonix EC Tab] 20 mg PO DAILY 11/29/16 03/22/17 Potassium Chloride [Klor-Con M20] 20 meq PO DAILY 11/29/16 03/22/17 QUEtiapine [Seroquel XR] 50 tab PO BID 11/29/16 03/22/17 Vitamin E 400 iu PO DAILY 11/29/16 03/22/17 metFORMIN [glucOPHAGE] 850 mg PO BID 11/29/16 03/22/17 Ferrous Sulfate [Feosol] 325 mg PO DAILY 03/22/17 03/22/17 Iron Ps Cmplx/Vit B12/FA [Ferrex 1 each PO DAILY 03/22/17 03/22/17 150 Forte Capsule] Review of Systems - Physician Review All systems were reviewed & negative as marked: Yes - Review of Systems Constitutional: Normal Eyes: Normal ENT: Normal Respiratory: Normal Cardiovascular: Normal Gastrointestinal: Normal Genitourinary Female: Normal Musculoskeletal: Normal Skin: Cellulitis Neurological: Normal Endocrine: Normal Hemo/Lymphatic: Normal Psychiatric: Normal <Diru,Happiness A - Last Filed: 03/22/17 21:01> Physical Exam Vital Signs Reviewed: Yes Temperature: Afebrile Blood Pressure: Normal Pulse: Regular Respiratory Rate: Normal Appearance: Positive for: Well-Appearing, Non-Toxic, Comfortable Pain Distress: None Mental Status: Positive for: Alert and Oriented X 3 - Systems Exam Head: Present: Atraumatic, Normocephalic Pupils: Present: PERRL Extroacular Muscles: Present: EOMI Conjunctiva: Present: Normal Mouth: Present: Moist Mucous Membranes Neck: Present: Normal Range of Motion Respiratory/Chest: Present: Clear to Auscultation, Good Air Exchange. No: Respiratory Distress, Accessory Muscle Use Cardiovascular: Present: Regular Rate and Rhythm, Normal S1, S2. No: Murmurs Abdomen: Present: Normal Bowel Sounds. No: Tenderness, Distention, Peritoneal Signs Back: Present: Normal Inspection Upper Extremity: Present: Normal Inspection. No: Cyanosis, Edema Lower Extremity: Present: Normal Inspection. No: Edema Neurological: Present: GCS=15, CN II-XII Intact, Speech Normal Skin: Present: Warm, Dry, Normal Color, Erythematous (Approximately 5.0 x 6.0cm area of induration with erythema. Warm to touch to left Lower abdominal wall. Tender to palpation). No: Rashes Psychiatric: Present: Alert, Oriented x 3, Normal Insight, Normal Concentration <DiruHappiness A - Last Filed: 03/22/17 21:01> Vital Signs Temp Pulse Resp BP Pulse Ox 03/22/17 17:37 88 130/78 03/22/17 16:40 99.0 F 97 H 20 113/69 03/22/17 15:16 98.2 F 96 H 18 107/66 98 Medical Decision Making <Diru,Happiness A - Last Filed: 03/22/17 21:01> <Manny Sagastume - Last Filed: 03/22/17 23:37> ED Course and Treatment: 03/22/17 18:03 PT with multiple comorbidties have leukocytosis, was admitted for IV abx. Rocephin and Vancomycin ordered. Case was DW Dr. Zhu and pt was admitted to her service. 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 (Flynn,Happiness A) - Lab Interpretations Lab Results: 03/22/17 15:50 03/22/17 15:50 Lab Results 03/22/17 15:50: Sodium 139, Potassium 4.4, Chloride 101, Carbon Dioxide 23, Anion Gap 19, BUN 99 H, Creatinine 3.1 H, Est GFR ( Amer) 19, Est GFR ( Non-Af Amer) 16, Random Glucose 200 H, Calcium 10.0, Total Bilirubin 0.6, AST 23 , ALT 21, Alkaline Phosphatase 80, Total Protein 7.6, Albumin 4.1, Globulin 3.5 , Albumin/Globulin Ratio 1.2 03/22/17 15:50: PT 15.9 H, INR 1.45 H, APTT 38.5 H 03/22/17 15:50: WBC 16.6 H D, RBC 3.06 L, Hgb 9.2 L, Hct 29.4 L, MCV 96.1, MCH 30.1, MCHC 31.3, RDW 16.4 H, Plt Count 213, MPV 10.5, Gran % 80.3 H, Lymph % ( Auto) 8.5 L, Kent % (Auto) 6.0, Eos % (Auto) 4.9, Baso % (Auto) 0.3, Gran # 13.35 H, Lymph # 1.4, Kent # 1.0 H, Eos # 0.8 H, Baso # 0.05 - Medication Orders Current Medication Orders: Albuterol (Ventolin Hfa 90 Mcg/Actuation (8 G)) 1 puff IH PRN PRN PRN Reason: Wheezing Allopurinol (Zyloprim) 300 mg PO DAILY [facility] Alprazolam (Xanax) 0.25 mg PO BID [facility] PRN Reason: Protocol Stop: 03/29/17 18:01 Last Admin: 03/22/17 17:35 Dose: 0.25 mg Re-Assess: Reassess Psych Meds Document 03/22/17 18:35 MCV (Rec: 03/22/17 19:46 MCV [id number]) Reassess Psych Med Effective Aspirin (Ecotrin) 81 mg PO DAILY [facility] Atorvastatin Calcium (Lipitor) 20 mg PO DIN [facility] Last Admin: 03/22/17 17:34 Dose: 20 mg Carvedilol (Coreg) 3.125 mg PO BID [facility] Last Admin: 03/22/17 17:37 Dose: 3.125 mg MAR Pulse and Blood Pressure Document 03/22/17 17:37 MS (Rec: 03/22/17 17:37 MS [id number]) Pulse Pulse Rate (60-90) 88 Blood Pressure Blood Pressure (100/60-150/90) 130/78 Clopidogrel Bisulfate (Plavix) 75 mg PO DAILY [facility] Furosemide (Lasix) 40 mg PO DAILY [facility] Gabapentin (Neurontin) 600 mg PO QID [facility] PRN Reason: Protocol Last Admin: 03/22/17 21:35 Dose: 600 mg Behavioural Document 03/22/17 21:35 MB (Rec: 03/22/17 21:35 MB [id number]) Maintenance Maintenance Dose Yes Gemfibrozil (Lopid) 600 mg PO BID [facility] Last Admin: 03/22/17 18:01 Dose: 600 mg Ceftaroline Fosamil 300 mg/ (Sodium Chloride) 100 mls @ 100 mls/hr IVPB Q12 [facility] PRN Reason: Protocol Stop: 03/29/17 23:46 Insulin Detemir (Levemir) 45 unit SC Q12 [facility] Last Admin: 03/22/17 21:35 Dose: 45 unit MAR Blood Glucose Document 03/22/17 21:35 MB (Rec: 03/22/17 21:35 MB [id number]) Blood Glucose Finger Stick Blood Glucose (70-120) 146 Subcutaneous Administrations Document 03/22/17 21:35 MB (Rec: 03/22/17 21:35 MB [facility] [id number]) Injection Site MAR Injection Site Right Arm Charges for Administration # of Subcutaneous Administrations 1 Insulin Human Lispro (Humalog) 45 units SC ACTID [facility] Losartan Potassium (Cozaar) 25 mg PO DAILY [facility] Metformin HCl (Glucophage) 850 mg PO BID [facility] Last Admin: 03/22/17 18:02 Dose: 850 mg Montelukast Sodium (Singulair) 10 mg PO HS [facility] Last Admin: 03/22/17 21:35 Dose: 10 mg Fluvoxamine [Luvox] (25 Mg - Home Med) 25 mg PO BID [facility] Last Admin: 03/22/17 19:50 Dose: Pantoprazole Sodium (Protonix Ec Tab) 20 mg PO ACB [facility] Quetiapine Fumarate (Seroquel Xr) 50 mg PO BID [facility] PRN Reason: Protocol Last Admin: 03/22/17 19:50 Dose: 50 mg Behavioural Document 03/22/17 19:50 MCV (Rec: 03/22/17 19:50 MCV [id number]) Nonmedicinal Nonmedicinal Interventions Redirect Therapeutic Communication Behavior Behavior for Medication: Anxiety Re-Assess: Reassess Psych Meds Document 03/22/17 20:50 MB (Rec: 03/22/17 20:56 MB [id number]) Reassess Psych Med Effective Discontinued Medications Carvedilol (Coreg) 3.125 mg PO BID [facility] Ceftriaxone Sodium (Rocephin 1 Gram Ivpb (D5w)) 1 gm in 100 mls @ 200 mls/hr IVPB STAT STA PRN Reason: Protocol Stop: 03/22/17 16:50 Last Admin: 03/22/17 16:52 Dose: 200 mls/hr eMAR Start Stop Document 03/22/17 16:52 MS (Rec: 03/22/17 16:53 MS [id number]) Intravenous Solution Start Date 03/22/17 Start Time 16:53 End Date 03/22/17 End time 17:23 Total Infusion Time 30 Vancomycin HCl (Vancomycin 1gm) 1 gm in 250 mls @ 167 mls/hr IVPB STAT STA PRN Reason: Protocol Stop: 03/22/17 17:51 Last Admin: 03/22/17 17:29 Dose: 167 mls/hr eMAR Start Stop Document 03/22/17 17:29 MS (Rec: 03/22/17 17:30 MS [id number]) Intravenous Solution Start Date 03/22/17 Start Time 17:30 Vancomycin HCl (Vancomycin 1gm) 1 gm in 250 mls @ 167 mls/hr IVPB Q12 [facility] PRN Reason: Protocol Last Admin: 03/22/17 21:30 Dose: 167 mls/hr eMAR Start Stop Document 03/22/17 21:30 MB (Rec: 03/22/17 21:31 MB [id number]) Intravenous Solution Start Date 03/22/17 Start Time 21:31 End Date 03/22/17 Piperacillin Sod/Tazobactam Sod (Zosyn 2.25 Gm In 0.9% 100 Ml) 2.25 gm in 100 mls @ 100 mls/hr IVPB STAT STA PRN Reason: Protocol Stop: 03/22/17 17:53 Last Admin: 03/22/17 19:50 Dose: 100 mls/hr eMAR Start Stop Document 03/22/17 19:50 MCV (Rec: 03/22/17 19:51 MCV [id number]) Intravenous Solution Start Date 03/22/17 Start Time 19:50 Pneumococcal Polyvalent Vaccine (Pneumovax 23 Vaccine) 0.5 ml IM .ONCE ONE Stop: 03/22/17 22:35 - 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 <Manny Sagastume - Last Filed: 03/22/17 23:37> Disposition/Present on Arrival - Present on Arrival Any Indicators Present on Arrival: No History of DVT/PE: No History of Uncontrolled Diabetes: No Urinary Catheter: No History of Decub. Ulcer: No History Surgical Site Infection Following: None - Disposition Have Diagnosis and Disposition been Completed?: Yes Disposition Time: 17:00 <Beatriz Pruett - Last Filed: 03/22/17 21:01> <Manny Sagastume - Last Filed: 03/22/17 23:37> - Disposition Diagnosis: Cellulitis, Anemia, Renal failure Disposition: HOSPITALIZED Patient Problems: Current Active Problems Problem Status Onset Anemia Acute Cellulitis Acute Renal failure Acute Condition: FAIR
[2017-03-22 16:10] LABS: BASO # 0.05 K/mm3 (0.0-2.0); BASO % 0.3 % (0.0-3.0); EOS # 0.8 (0.0-0.7); EOS % 4.9 % (1.5-5.0); GRAN # 13.35 (1.4-6.5); GRAN % 80.3 % (50.0-68.0); HEMATOCRIT 29.4 % (36.0-48.0); LYMPH # 1.4 (1.2-3.4); LYMPH % 8.5 % (22.0-35.0); MEAN CELL VOLUME 96.1 fl (80.0-105.0); MEAN CORPUSCULAR HEMOGLOBIN 30.1 pg (25.0-35.0); MEAN CORPUSCULAR HGB CONC 31.3 g/dl (31.0-37.0); MEAN PLATELET VOLUME 10.5 fl (7.0-11.0); RED CELL DISTRIBUTION WIDTH 16.4 % (11.5-14.5); WHITE BLOOD COUNT 16.6 10^3/ul (4.5-11.0)
[2017-03-22] MEDS ORDERED: cefTRIAXone 1 gm 1 GM/100 ML BAG IVPB STA (16:21)
[2017-03-22] MEDS ORDERED: Vancomycin 1gm in NS 250ml 1 GM/250 ML BAG IVPB STA (16:22)
[2017-03-22] MEDS ORDERED: Albuterol HFA 90 mcg/actuation (8 g) IH PRN (16:28)
[2017-03-22 16:42] LABS: INR 1.45 (0.93-1.08); PARTIAL THROMBOPLASTIN TIME 38.5 Seconds (25.1-36.5)
[2017-03-22] MEDS ORDERED: Piperacillin/Tazobact 2.25gm 2.25 GM/100 ML BAG IVPB STA (16:54)
[2017-03-22 16:59] LABS: ALB/GLOB RATIO 1.2 (1.1-1.8); BILIRUBIN,TOTAL 0.6 mg/dL (0.2-1.3); POTASSIUM 4.4 mmol/L (3.6-5.0); TOTAL PROTEIN 7.6 g/dL (5.8-8.3)
[2017-03-22] MEDS ORDERED: INSULIN ASPART RECOMBINANT SQ SCH (18:00)
[2017-03-22] MEDS ORDERED: FLUVOXAMINE 25 MG PO SCH (18:00)
[2017-03-22] MEDS ORDERED: INSULIN GLARGINE RECOMBINA SQ SCH (18:00)
--- NOTE | 2017-03-22 18:54 | CP.PCM.CON ---
History of Present Illness - History of Present Illness History of Present Illness: General Surgery Consult Note For Dr. Jaramillo This is a 56F with a PMH of uncontrolled DM and multiple cutaneous abscesses. She came [place] [facility] after going to her PCPs office with an abdominal wall abscess. She denies any fevers or chills at home, any nausea vomiting or diarrhea. She reports that she has had multiple abscesses surgically drained in the past however she has not had on in over a year. She reports that the leasion began sunday as redness and has gotten worse since then and has gotten "hotter". She denies any pain at the lesion. She has noticed drainage on her undergarments however otherwise she has not noted any drainage directly from the lesion. PMH: DM, endometriosis PSH: C section, Abscess drainages, Multiple exploratory laparoscopies Social: Negative ALL: NKDA Review of Systems - Review of Systems All systems: reviewed and no additional remarkable complaints except - Integumentary Additional comments: Large abcess to the right of her laparotomy scar. Roughly 5 inches in diameter. Past Patient History - Infectious Disease Hx of Infectious Diseases: None - Tetanus Immunizations Tetanus Immunization: Unknown - Past Medical History & Family History Past Medical History?: Yes - Past Social History Smoking Status: Never Smoked - CARDIAC Hx Congestive Heart Failure: Yes Hx Hypertension: Yes - PULMONARY Hx Chronic Obstructive Pulmonary Disease (COPD): Yes - NEUROLOGICAL Hx Neurological Disorder: Yes Hx Dizziness: Yes Other/Comment: Restless leg syndrome. Fibromyalgia - HEENT Hx HEENT Problems: Yes Hx Epistaxis: Yes - RENAL Hx Chronic Kidney Disease: Yes Hx Kidney Stones: Yes Hx Renal Failure: Yes - ENDOCRINE/METABOLIC Hx Diabetes Mellitus Type 2: Yes - HEMATOLOGICAL/ONCOLOGICAL Hx Blood Disorders: Yes Hx Anemia: Yes - INTEGUMENTARY Hx Dermatological Problems: Yes - MUSCULOSKELETAL/RHEUMATOLOGICAL Hx Falls: No - GASTROINTESTINAL Hx Gastrointestinal Disorders: Yes - GENITOURINARY/GYNECOLOGICAL Hx Genitourinary Disorders: Yes Hx Incontinence: Yes Hx Urinary Tract Infection: Yes Other/Comment: Endometriosis - PSYCHIATRIC Hx Psychophysiologic Disorder: Yes Hx Anxiety: Yes Hx Depression: Yes Hx Emotional Abuse: No Hx Physical Abuse: No Hx Substance Use: No - SURGICAL HISTORY Hx Appendectomy: Yes Hx Cardiac Catheterization: Yes Hx Coronary Stent: Yes Other/Comment: Abd lap W R oophorectomy & partial L oophrectomy. c section, I & D cellulitis both legs, bilateral axilla, - ANESTHESIA Hx Anesthesia: Yes Hx Anesthesia Reactions: No Hx Malignant Hyperthermia: No Meds Allergies/Adverse Reactions: Allergies Allergy/AdvReac Type Severity Reaction Status Date / Time theophylline Allergy NAUSEA Verified 03/22/17 15:23 - Medications Medications: Current Medications Albuterol (Ventolin Hfa 90 Mcg/Actuation (8 G)) 1 puff IH PRN PRN PRN Reason: Wheezing Allopurinol (Zyloprim) 300 mg PO DAILY [facility] Alprazolam (Xanax) 0.25 mg PO BID [facility] PRN Reason: Protocol Stop: 03/29/17 18:01 Last Admin: 03/22/17 17:35 Dose: 0.25 mg Aspirin (Ecotrin) 81 mg PO DAILY [facility] Atorvastatin Calcium (Lipitor) 20 mg PO DIN [facility] Last Admin: 03/22/17 17:34 Dose: 20 mg Carvedilol (Coreg) 3.125 mg PO BID [facility] Last Admin: 03/22/17 17:37 Dose: 3.125 mg Clopidogrel Bisulfate (Plavix) 75 mg PO DAILY [facility] Furosemide (Lasix) 40 mg PO DAILY [facility] Gabapentin (Neurontin) 600 mg PO QID [facility] PRN Reason: Protocol Last Admin: 03/22/17 18:01 Dose: 600 mg Gemfibrozil (Lopid) 600 mg PO BID [facility] Last Admin: 03/22/17 18:01 Dose: 600 mg Vancomycin HCl (Vancomycin 1gm) 1 gm in 250 mls @ 167 mls/hr IVPB Q12 [facility] PRN Reason: Protocol Insulin Detemir (Levemir) 45 unit SC Q12 [facility] Insulin Human Lispro (Humalog) 45 units SC ACTID [facility] Losartan Potassium (Cozaar) 25 mg PO DAILY [facility] Metformin HCl (Glucophage) 850 mg PO BID [facility] Last Admin: 03/22/17 18:02 Dose: 850 mg Montelukast Sodium (Singulair) 10 mg PO HS [facility] Fluvoxamine [Luvox] (25 Mg - Home Med) 25 mg PO BID [facility] Pantoprazole Sodium (Protonix Ec Tab) 20 mg PO ACB [facility] Quetiapine Fumarate (Seroquel Xr) 50 mg PO BID [facility] PRN Reason: Protocol Physical Exam - Constitutional Appears: Well, Non-toxic, No Acute Distress - Head Exam Head Exam: ATRAUMATIC, NORMOCEPHALIC - Eye Exam Eye Exam: EOMI - ENT Exam ENT Exam: Mucous Membranes Moist, Normal Exam - Respiratory Exam Respiratory Exam: NORMAL BREATHING PATTERN - Cardiovascular Exam Cardiovascular Exam: REGULAR RHYTHM - GI/Abdominal Exam GI & Abdominal Exam: Soft. absent: Guarding, Hernia, Rebound, Rigid, Tenderness Additional comments: Tender indurated fluctant abdominal wall abscess - Extremities Exam Extremities exam: Positive for: normal inspection - Neurological Exam Neurological exam: Alert, Oriented x3 - Psychiatric Exam Psychiatric exam: Normal Affect, Normal Mood - Skin Skin Exam: Dry, Intact Results - Vital Signs Recent Vital Signs: Last Vital Signs Temp 98.2 F 03/22/17 15:16 Pulse 88 03/22/17 17:37 Resp 18 03/22/17 15:16 BP 130/78 03/22/17 17:37 Pulse Ox 98 03/22/17 15:16 - Labs Result Diagrams: 03/22/17 15:50 03/22/17 15:50 Assessment & Plan - Assessment and Plan (Free Text) Assessment: 56F with an abdominal wall abscess Continue ABX Will Need I&D possible OR tomorrow NPO after midnight Coags Monitor blood sugar Will continue to follow WBC and Vitals Will Discuss with Dr. Clint Velazquez PGY2
[2017-03-22] MEDS: QUEtiapine 50 mg XR Tab PO SCH (19:50)
[2017-03-22] MEDS: FLUVOXAMINE 25 MG PO SCH (19:50)
--- NOTE | 2017-03-22 21:11 | HP ---
HISTORY OF PRESENT ILLNESS: The patient is 56-year-old known to me from office practice. The patient state for the last 3 days, she felt discomfort in her abdominal wall area and she was feeling very sleepy and tired, and blood sugar was running low, so she came to office and she was found to have abdominal wall cellulitis. Since the patient has poorly controlled diabetic and chronic kidney disease, we advised her to go to Emergency Room for IV antibiotics and close monitoring because she might get septic from this cellulitis. She complains of having chills. No documented fever. No discharge from abdominal wall skin area. PAST MEDICAL HISTORY: Significant for; 1. Hypertension. 2. Insulin-dependent diabetes. 3. Hyperlipidemia. 4. COPD. 5. Diabetic retinopathy. ALLERGIES: THE PATIENT IS ALLERGIC TO THEOPHYLLINE. MEDICATIONS AT HOME: She is on long list of medication including iron supplementation, metformin 50 twice a day, Luvox 25 twice a day, Seroquel 50 mg b.i.d., potassium supplementation and Lasix, Protonix 20 daily, multivitamin, Singulair 10 mg daily, losartan 25 daily, Lantus 45 units twice a day, NovoLog 25 units t.i.d., she is on gemfibrozil 500 b.i.d., gabapentin 600 four times daily, Lasix 40 mg daily, Plavix 75 daily, carvedilol 3.125 twice a day, atorvastatin 20 mg daily, aspirin 81 daily, allopurinol 300 daily, Xanax 0.25 twice a day. SOCIAL HISTORY: She is , lives with her . She used to be a smoker in the past, but quit. PHYSICAL EXAMINATION: GENERAL: She is awake, alert, oriented, communicative, and ambulatory. VITAL SIGNS: She is afebrile, pulse 96, respirations 18, blood pressure 107/66. LUNGS: Bilateral fair airflow. No rhonchi or crackles. HEART: S1 and S2 audible. ABDOMEN: Soft, obese. She has ventral hernia. She has cellulitis on the left lower quadrant area and also around her previous surgical scar. LABORATORY DATA: WBC 16.6, hemoglobin 9.2, hematocrit 29.4, and platelet of 213. Chem-7 is pending. ASSESSMENT AND PLAN: 1. Abdominal wall cellulitis. 2. Insulin-dependent diabetes. 3. Chronic obstructive pulmonary disease. 4. Hypertension. 5. History of depression. 6. Hyperlipidemia. PLAN: We will start the patient on vancomycin. We will monitor her blood sugar. We will start her on vancomycin and Zosyn and get ID evaluation by Dr. Kent and Surgical evaluation by Dr. Jaramillo. Colt Zhu MD
[2017-03-22] MEDS: Insulin Detemir 100 units/ml Vial (Levemir) SC SCH (21:35)
[2017-03-22] MEDS ORDERED: Vancomycin 1gm in NS 250ml 1 GM/250 ML BAG IVPB SCH (22:00)
[2017-03-22 22:34] VITALS: BMI 29.1
[2017-03-22] MEDS ORDERED: Influenza Vaccine 60 mcg/0.5 mL SYR (4YR UP) IM ONE (22:34)
[2017-03-22] MEDS ORDERED: Pneumococcal 23-Valent Vaccine IM ONE (22:34)
--- NOTE | 2017-03-23 07:31 | CP.PCM.CON ---
History of Present Illness - History of Present Illness History of Present Illness: General Surgery- Dr. Leonardo 56F with a PMH of uncontrolled DM and multiple cutaneous abscesses. presented to [facility] after going to her PCPs office with an abdominal wall abscess first noticed sunday, has gotten progressively larger, and warmer in size. Noticed non -odorus purulent actively draining site. She denies any fevers or chills at home , nausea vomiting, diarrhea. She reports that she has had multiple abscesses surgically drained in the past however she has not had on in over a year. PMH: DM, endometriosis, CAD PSH: C section, Cardiac stents, Abscess drainages, Multiple exploratory laparoscopies Social: denies ETOH, recreational drug use ALL: NKDA Review of Systems - Review of Systems All systems: reviewed and no additional remarkable complaints except - Constitutional Constitutional: As Per HPI Past Patient History - Infectious Disease Hx of Infectious Diseases: None - Tetanus Immunizations Tetanus Immunization: Unknown - Past Medical History & Family History Past Medical History?: Yes - Past Social History Smoking Status: Never Smoked - CARDIAC Hx Cardiac Disorders: Yes (CAD) Hx Congestive Heart Failure: Yes Hx Hypertension: Yes - PULMONARY Hx Respiratory Disorders: Yes Hx Chronic Obstructive Pulmonary Disease (COPD): Yes Hx Pneumonia: Yes - NEUROLOGICAL Hx Neurological Disorder: Yes Hx Dizziness: Yes Other/Comment: Restless leg syndrome. Fibromyalgia - HEENT Hx HEENT Problems: Yes (EPISTAXIS) Hx Epistaxis: Yes - RENAL Hx Chronic Kidney Disease: Yes Hx Kidney Stones: Yes Hx Renal Failure: Yes - ENDOCRINE/METABOLIC Hx Endocrine Disorders: Yes Hx Diabetes Mellitus Type 2: Yes - HEMATOLOGICAL/ONCOLOGICAL Hx Blood Disorders: Yes Hx Anemia: Yes (BT) - INTEGUMENTARY Hx Dermatological Problems: Yes Other/Comment: MULTIPLE CUTANEOUS ABSCESSES WITH MULTIPLE I AND D'S. 03-12-17 LARGE ABSCESS TO RIGHT OF HER LAPAROTOMY SCAR 5 CM IN DM.DEEP BURBUNDY COLORED SKIN.SWOLLEN,MIN. PUS DRAINAGE. BIG TOE DRY SKIN RASH.UNDERSIDE OF TOE HAS CALLOUSED SKIN. - MUSCULOSKELETAL/RHEUMATOLOGICAL Hx Falls: No - GASTROINTESTINAL Hx Gastrointestinal Disorders: Yes (MULTIPLE EXPLORATOY LAP) - GENITOURINARY/GYNECOLOGICAL Hx Genitourinary Disorders: Yes (C SECTION X 1,R OOPHORECTOMY,L PARTIAL OOPHORECTOMY.) Hx Incontinence: Yes Hx Urinary Tract Infection: Yes Other/Comment: Endometriosis - PSYCHIATRIC Hx Psychophysiologic Disorder: Yes Hx Anxiety: Yes Hx Depression: Yes Hx Emotional Abuse: No Hx Physical Abuse: No Hx Substance Use: No - SURGICAL HISTORY Hx Surgeries: Yes Hx Appendectomy: Yes Hx Cardiac Catheterization: Yes Hx Coronary Stent: Yes Other/Comment: Abd lap W R oophorectomy & partial L oophrectomy. c section, I & D cellulitis both legs, bilateral axilla, - ANESTHESIA Hx Anesthesia: Yes Hx Anesthesia Reactions: No Hx Malignant Hyperthermia: No Meds Allergies/Adverse Reactions: Allergies Allergy/AdvReac Type Severity Reaction Status Date / Time theophylline Allergy NAUSEA Verified 03/22/17 19:48 - Medications Medications: Current Medications Albuterol (Ventolin Hfa 90 Mcg/Actuation (8 G)) 1 puff IH PRN PRN PRN Reason: Wheezing Allopurinol (Zyloprim) 300 mg PO DAILY [facility] Alprazolam (Xanax) 0.25 mg PO BID [facility] PRN Reason: Protocol Stop: 03/29/17 18:01 Last Admin: 03/22/17 17:35 Dose: 0.25 mg Aspirin (Ecotrin) 81 mg PO DAILY [facility] Atorvastatin Calcium (Lipitor) 20 mg PO DIN [facility] Last Admin: 03/22/17 17:34 Dose: 20 mg Carvedilol (Coreg) 3.125 mg PO BID [facility] Last Admin: 03/22/17 17:37 Dose: 3.125 mg Clopidogrel Bisulfate (Plavix) 75 mg PO DAILY [facility] Furosemide (Lasix) 40 mg PO DAILY [facility] Gabapentin (Neurontin) 600 mg PO QID [facility] PRN Reason: Protocol Last Admin: 03/22/17 21:35 Dose: 600 mg Gemfibrozil (Lopid) 600 mg PO BID [facility] Last Admin: 03/22/17 18:01 Dose: 600 mg Ceftaroline Fosamil 300 mg/ (Sodium Chloride) 100 mls @ 100 mls/hr IVPB Q12 [facility] PRN Reason: Protocol Stop: 03/29/17 23:46 Last Admin: 03/23/17 01:44 Dose: Not Given Insulin Detemir (Levemir) 45 unit SC Q12 [facility] Last Admin: 03/22/17 21:35 Dose: 45 unit Insulin Human Lispro (Humalog) 45 units SC ACTID [facility] Losartan Potassium (Cozaar) 25 mg PO DAILY [facility] Metformin HCl (Glucophage) 850 mg PO BID [facility] Last Admin: 03/22/17 18:02 Dose: 850 mg Montelukast Sodium (Singulair) 10 mg PO HS [facility] Last Admin: 03/22/17 21:35 Dose: 10 mg Fluvoxamine [Luvox] (25 Mg - Home Med) 25 mg PO BID [facility] Last Admin: 03/22/17 19:50 Dose: Not Given Pantoprazole Sodium (Protonix Ec Tab) 20 mg PO ACB [facility] Quetiapine Fumarate (Seroquel Xr) 50 mg PO BID [facility] PRN Reason: Protocol Last Admin: 03/22/17 19:50 Dose: 50 mg Physical Exam - Constitutional Appears: Non-toxic, No Acute Distress - Head Exam Head Exam: ATRAUMATIC - Eye Exam Eye Exam: EOMI. absent: Scleral icterus - Respiratory Exam Respiratory Exam: NORMAL BREATHING PATTERN. absent: Accessory Muscle Use, Respiratory Distress - Cardiovascular Exam Cardiovascular Exam: +S1, +S2. absent: Bradycardia, Tachycardia - GI/Abdominal Exam GI & Abdominal Exam: Distended, Soft. absent: Firm, Guarding, Rigid, Tenderness Additional comments: well healed midline abdominal incision Abscess to the left of the incision on pannus measuring approx 12cm x 5cm w/ surrounding erythema, actively draining. - Extremities Exam Extremities exam: Positive for: normal inspection. Negative for: calf tenderness - Neurological Exam Neurological exam: Alert, Oriented x3 - Skin Skin Exam: Rash, Warm Results - Vital Signs Recent Vital Signs: Last Vital Signs Temp 98.2 F 03/22/17 22:06 Pulse 88 03/22/17 22:06 Resp 18 03/22/17 22:06 BP 130/78 03/22/17 22:06 Pulse Ox 98 03/22/17 15:16 - Labs Result Diagrams: 03/22/17 15:50 03/22/17 15:50 Labs: Laboratory Results - last 24 hr 03/22/17 03/23/17 03/23/17 21:03 05:11 06:18 POC Glucose (mg/dL) 146 H 41 L 87 Assessment & Plan - Assessment and Plan (Free Text) Assessment: 56F h/o recurrent abscess w/ abdominal wall abscess Plan: - NPO - I&D today, possible OR - hold Aspirin and plavix - continue abx per ID - pain control PRN - further recs per Dr. Leonardo surgical attending Melvin Mazariegos PGY1
[2017-03-23 07:59] LABS: INR 1.49 (0.93-1.08)
[2017-03-23] MEDS: Pantoprazole 20 mg EC Tab PO SCH (08:00)
[2017-03-23] MEDS: Insulin Lispro 1 UNITS/0.01 ML SC SCH ×3 (08:16→17:05)
[2017-03-23] MEDS: FLUVOXAMINE 25 MG PO SCH ×2 (11:24→17:53)
[2017-03-23] MEDS: Insulin Detemir 100 units/ml Vial (Levemir) SC SCH ×2 (11:25→21:17)
[2017-03-23] MEDS: QUEtiapine 50 mg XR Tab PO SCH ×2 (11:27→17:47)
[2017-03-23] MEDS ORDERED: Bupivacaine 0.5% Inj(30mL) ONE (13:47)
[2017-03-23] MEDS ORDERED: Propofol 10 mg/ml Inj (20 ML) ONE (13:59)
[2017-03-23] MEDS ORDERED: Midazolam 2 MG/2 ML VIAL ONE (13:59)
[2017-03-23] MEDS ORDERED: Albuterol 0.083% Inhal Sol (2.5 mg/3 mL) UD IH SCH ×3 (14:00→20:00)
[2017-03-23] MEDS ORDERED: Bupivacaine 0.5% Inj(30mL) IJ ONE (14:24)
[2017-03-23] MEDS ORDERED: HYDROmorphone 0.5 mg/0.5 ml ISec IVP PRN (14:34)
--- NOTE | 2017-03-23 14:36 | PCM.SURG1 ---
Surgeon's Initial Post Op Note - Surgeon's Notes Surgeon: Dr. Leonardo Community Nutrition Educator: PGY1, Amelia PGY1 Type of Anesthesia: IV Sedation Pre-Operative Diagnosis: abdominal wall abscess Operative Findings: see op note Post-Operative Diagnosis: as above Operation Performed: Incision and Drainage of abdominal wall abscess Specimen/Specimens Removed: none Estimated Blood Loss: EBL {In ML}: 3 Drains Used: No Drains Post-Op Condition: Good Date of Surgery/Procedure: 03/23/17 Time of Surgery/Procedure: 14:00
[2017-03-23] MEDS ORDERED: Lactated Ringer's 1,000 ML IV SCH (14:45)
--- NOTE | 2017-03-23 18:40 | CP.PCM.CON ---
History of Present Illness - History of Present Illness History of Present Illness: 56 year old female with PMH of DM, COPD, fibromyalgia, history of UTI's, restless leg syndrome, history of pneumonia, HTN, chronic CHF, DM, history of kidney stones, history of endometriosis, S/P oophorectomy, history of cellulitis of lower extremities was seen in her PMD's office and was complaining of an abscess / fluid collection on her abdominal wall area, which began as an area of erythema 4 days ago and then became more swollen and noted drainage on her clothes. She denies animal contacts, no fevers or chills, no nausea or vomiting, no chest pain ,no SOB, no headache or dizziness, no diarrhea. Patient is for I and D today. Infectious Diseases consult is requested to further evaluate and manage. Review of Systems - Review of Systems All systems: reviewed and no additional remarkable complaints except (as per HPI ) Past Patient History - Infectious Disease Hx of Infectious Diseases: None - Tetanus Immunizations Tetanus Immunization: Unknown - Past Medical History & Family History Past Medical History?: Yes - Past Social History Smoking Status: Never Smoked - CARDIAC Hx Cardiac Disorders: Yes (CAD) Hx Congestive Heart Failure: Yes Hx Hypertension: Yes - PULMONARY Hx Respiratory Disorders: Yes Hx Chronic Obstructive Pulmonary Disease (COPD): Yes Hx Pneumonia: Yes - NEUROLOGICAL Hx Neurological Disorder: Yes Hx Dizziness: Yes Other/Comment: Restless leg syndrome. Fibromyalgia - HEENT Hx HEENT Problems: Yes (EPISTAXIS) Hx Epistaxis: Yes - RENAL Hx Chronic Kidney Disease: Yes Hx Kidney Stones: Yes Hx Renal Failure: Yes - ENDOCRINE/METABOLIC Hx Endocrine Disorders: Yes Hx Diabetes Mellitus Type 2: Yes - HEMATOLOGICAL/ONCOLOGICAL Hx Blood Disorders: Yes Hx Anemia: Yes (BT) - INTEGUMENTARY Hx Dermatological Problems: Yes Other/Comment: MULTIPLE CUTANEOUS ABSCESSES WITH MULTIPLE I AND D'S. 03-12-17 LARGE ABSCESS TO RIGHT OF HER LAPAROTOMY SCAR 5 CM IN DM.DEEP BURBUNDY COLORED SKIN.SWOLLEN,MIN. PUS DRAINAGE. BIG TOE DRY SKIN RASH.UNDERSIDE OF TOE HAS CALLOUSED SKIN. - MUSCULOSKELETAL/RHEUMATOLOGICAL Hx Falls: No - GASTROINTESTINAL Hx Gastrointestinal Disorders: Yes (MULTIPLE EXPLORATOY LAP) - GENITOURINARY/GYNECOLOGICAL Hx Genitourinary Disorders: Yes (C SECTION X 1,R OOPHORECTOMY,L PARTIAL OOPHORECTOMY.) Hx Incontinence: Yes Hx Urinary Tract Infection: Yes Other/Comment: Endometriosis - PSYCHIATRIC Hx Psychophysiologic Disorder: Yes Hx Anxiety: Yes Hx Depression: Yes Hx Emotional Abuse: No Hx Physical Abuse: No Hx Substance Use: No - SURGICAL HISTORY Hx Surgeries: Yes Hx Appendectomy: Yes Hx Cardiac Catheterization: Yes Hx Coronary Stent: Yes Other/Comment: Abd lap W R oophorectomy & partial L oophrectomy. c section, I & D cellulitis both legs, bilateral axilla, - ANESTHESIA Hx Anesthesia: Yes Hx Anesthesia Reactions: No Hx Malignant Hyperthermia: No Meds Allergies/Adverse Reactions: Allergies Allergy/AdvReac Type Severity Reaction Status Date / Time theophylline Allergy NAUSEA Verified 03/22/17 19:48 - Medications Medications: Current Medications Albuterol (Ventolin Hfa 90 Mcg/Actuation (8 G)) 1 puff IH PRN PRN PRN Reason: Wheezing Allopurinol (Zyloprim) 300 mg PO DAILY [facility] Alprazolam (Xanax) 0.25 mg PO BID [facility] PRN Reason: Protocol Stop: 03/29/17 18:01 Last Admin: 03/22/17 17:35 Dose: 0.25 mg Aspirin (Ecotrin) 81 mg PO DAILY [facility] Atorvastatin Calcium (Lipitor) 20 mg PO DIN [facility] Last Admin: 03/22/17 17:34 Dose: 20 mg Carvedilol (Coreg) 3.125 mg PO BID [facility] Last Admin: 03/22/17 17:37 Dose: 3.125 mg Clopidogrel Bisulfate (Plavix) 75 mg PO DAILY [facility] Furosemide (Lasix) 40 mg PO DAILY [facility] Gabapentin (Neurontin) 600 mg PO QID [facility] PRN Reason: Protocol Last Admin: 03/22/17 21:35 Dose: 600 mg Gemfibrozil (Lopid) 600 mg PO BID [facility] Last Admin: 03/22/17 18:01 Dose: 600 mg Ceftaroline Fosamil 300 mg/ (Sodium Chloride) 100 mls @ 100 mls/hr IVPB Q12 [facility] PRN Reason: Protocol Stop: 03/29/17 23:46 Insulin Detemir (Levemir) 45 unit SC Q12 [facility] Last Admin: 03/22/17 21:35 Dose: 45 unit Insulin Human Lispro (Humalog) 45 units SC ACTID [facility] Losartan Potassium (Cozaar) 25 mg PO DAILY [facility] Metformin HCl (Glucophage) 850 mg PO BID [facility] Last Admin: 03/22/17 18:02 Dose: 850 mg Montelukast Sodium (Singulair) 10 mg PO HS [facility] Last Admin: 03/22/17 21:35 Dose: 10 mg Fluvoxamine [Luvox] (25 Mg - Home Med) 25 mg PO BID [facility] Last Admin: 03/22/17 19:50 Dose: Not Given Pantoprazole Sodium (Protonix Ec Tab) 20 mg PO ACB [facility] Quetiapine Fumarate (Seroquel Xr) 50 mg PO BID [facility] PRN Reason: Protocol Last Admin: 03/22/17 19:50 Dose: 50 mg Physical Exam - Constitutional Appears: Non-toxic - Head Exam Head Exam: NORMAL INSPECTION - Respiratory Exam Respiratory Exam: Decreased Breath Sounds - Cardiovascular Exam Cardiovascular Exam: +S1, +S2 - GI/Abdominal Exam GI & Abdominal Exam: Soft, Tenderness (over abdominal area). absent: Distended , Firm, Guarding Results - Vital Signs Recent Vital Signs: Last Vital Signs Temp 98.2 F 03/22/17 22:06 Pulse 88 03/22/17 22:06 Resp 18 03/22/17 22:06 BP 130/78 03/22/17 22:06 Pulse Ox 98 03/22/17 15:16 - Labs Result Diagrams: 03/22/17 15:50 03/22/17 15:50 Assessment & Plan - Assessment and Plan (Free Text) Plan: Assessment Sepsis due to abdominal wall abscess for I and D history of sepsis due to UTI with E. coli which is resistant to many antibiotics but sensitive to Imipenem (but not ESBL-producing) COPD fibromyalgia history of UTI's restless leg syndrome history of pneumonia HTN chronic CHF DM history of kidney stones history of endometriosis S/P oophorectomy history of cellulitis of lower extremities Plan started patient on Teflaro pending blood cx and abscess cx taken from the OR will monitor clinically
[2017-03-23] MEDS: Sodium Chloride 0.45% 1,000 ML IV SCH (18:46)
--- NOTE | 2017-03-23 21:19 | PN ---
DATE: SUBJECTIVE: The patient is a 56-year-old, seen and examined. While she was in OR, awaiting to go to OR for I and D. Complain of having fever and chills. PHYSICAL EXAMINATION: VITAL SIGNS: She is afebrile, pulse 98, respirations 16, and blood pressure 115/72. LUNGS: Bilateral fair airflow. No rhonchi or crackles. HEART: S1 and S2 audible.. ABDOMEN: Soft and obese. She has cellulitis on the left lower quadrant abdominal wall. LABORATORY DATA: No new labs available today. PT 16.5 and INR 1.49. Chemistry: Sodium 139, potassium 4.4, chloride 101, CO2 of 23, BUN 99, creatinine 3.1, and blood sugar of 91. ASSESSMENT: 1. Abdominal wall cellulitis. 2. Insulin-dependent diabetes. 3. Hypertension. 4. Hyperlipidemia. 5. Renal insufficiency. PLAN: Currently, the patient is on Teflaro. She is on IV fluids. She is going for I and D today. Colt Zhu MD
--- NOTE | 2017-03-23 22:41 | CON ---
DATE: 03/23/2017 LOCATION: The patient in room 571, bed 2. REASON FOR CONSULTATION: Coronary artery disease, history of angioplasty, diabetes mellitus, hypertension, hyperlipidemia, COPD. HISTORY OF PRESENT ILLNESS: The patient is a 56-year-old female, known case of coronary artery disease, history of stent insertion on 03/03/2013, known diabetic, admitted with a history that the patient started feeling pain in the abdominal area and redness throughout and she became very tired and fatigued and the sugar became uncontrolled and the patient came to the emergency room where found to have cellulitis of the abdominal wall. The patient denies any chest pain, shortness of breath or palpitation associated with this cellulitis of the abdominal wall. PAST MEDICAL HISTORY: Positive for coronary artery disease, history of coronary stent insertion on 03/03/2013, insulin-dependent diabetes mellitus, hyperlipidemia, COPD, diabetic retinopathy, hypertension. PERSONAL HISTORY: Used to smoke before. Does not smoke now. Denies drinking. ALLERGIES: THE PATIENT IS ALLERGIC TO THEOPHYLLINE. MEDICATIONS AT HOME: Including metformin 500 b.i.d., Singulair 10 daily, losartan 25 daily, insulin, gemfibrozil 500 b.i.d., gabapentin 600 four times a day, Lasix 40 daily, Plavix 75 daily, carvedilol 3.125 twice a day, atorvastatin 20 daily, aspirin 81 daily, allopurinol 300 daily, Seroquel 50 b.i.d, Luvox 25 twice a day. FAMILY HISTORY: Not significant. REVIEW OF SYSTEMS: All other systems were reviewed. Positives mentioned in the history, others are negative. PHYSICAL EXAMINATION: VITAL SIGNS: Blood pressure 133/75, respirations 16, pulse 100, temperature 98.7. HEENT: Head is normocephalic. Eyes: Pupils normal. Conjunctivae slightly pale. NECK: JVP low. Carotids equal. THORAX: AP diameter normal. LUNGS: Clear. CARDIOVASCULAR: S1 and S2. ABDOMEN: Redness, cellulitis, swelling. Tender on the area. PERIPHERIES: No clubbing. No cyanosis. LABORATORY DATA: WBC 16.6, hemoglobin 9.2, hematocrit 29.4, platelets 213. Sodium 139, potassium 4.4, BUN 99, creatinine 3.1. Random glucose 200, later on sugar came to 91. AST, ALT, total protein, albumin normal. EKG on 11/29/2016 showed normal sinus rhythm. The patient was seen by Surgery, found to have abdominal abscess for which the patient is going for an incision and drainage. The patient's cardiac workup: The patient had a recent stress test on 07/19/2016, which was normal. Previous echo had shown RV systolic pressure of 20, trace mitral regurg and trace tricuspid regurg. DIAGNOSES: Cellulitis of the abdominal wall along with abscess of the abdominal wall, insulin-dependent diabetes mellitus, coronary artery disease, history of coronary stent insertion, hypertension, hyperlipidemia, history of depression, renal dysfunction with high BUN and creatinine. PLAN: The patient is on carvedilol 3.125 b.i.d., DuoNeb nebulizer therapy, Cozaar 25 daily, aspirin 81 daily, metformin 850 b.i.d., insulin as ordered, atorvastatin 20 daily, Lopid 600 b.i.d., Neurontin 600 mg p.o. b.i.d. and 1200 mg at bedtime, Plavix 75 daily, Protonix 20 mg p.o. before breakfast, Seroquel XL 50 mg b.i.d., Singulair 10 mg at bedtime, Teflaro 300 mg IV q. 12 hours, Xanax 0.25 b.i.d. The patient's BUN 99, creatinine 3.1. We will stop Lasix and we will give IV fluid therapy to the patient. The patient usually is on high BUN. On 09/16/2015, BUN was 74, creatinine was 3.6. On 10/18/2015, 64 BUN, creatinine 1.9. On 10/27/2016, BUN was 34 with creatinine 3.0. On 11/01/2016, BUN 50, creatinine 1.4. On 12/06/2016, BUN 41, creatinine 1.0. Clinically, cardiac status stable. The patient is not having angina symptoms. A recent stress test was negative. So, the patient can go for her incision and drainage as a moderate risk. We will closely follow. Stephanie Hartley MD
[2017-03-24] MEDS: Sodium Chloride 0.45% 1,000 ML IV SCH ×2 (05:10→16:57)
[2017-03-24 07:00] LABS: HEMATOCRIT 27.9 % (36.0-48.0); MEAN CELL VOLUME 95.9 fl (80.0-105.0); MEAN CORPUSCULAR HEMOGLOBIN 30.2 pg (25.0-35.0); MEAN CORPUSCULAR HGB CONC 31.5 g/dl (31.0-37.0); MEAN PLATELET VOLUME 10.5 fl (7.0-11.0); RED CELL DISTRIBUTION WIDTH 16.1 % (11.5-14.5); WHITE BLOOD COUNT 12.2 10^3/ul (4.5-11.0)
--- NOTE | 2017-03-24 08:28 | CP.PCM.PN ---
Subjective - Date & Time of Evaluation Date of Evaluation: 03/24/17 Time of Evaluation: 06:30 - Subjective Subjective: General Surgery- Dr. Leonardo Patient seen and examined at bedside this AM. No acute events overnight. ABD wall packing was removed at bedside. Denies F/C chest pain/SOB nausea vomiting diarrhea. Pain is well controlled Objective - Vital Signs/Intake and Output Vital Signs (last 24 hours): Temp Pulse Resp BP Pulse Ox 98.7 F 63 16 115/72 97 03/23/17 15:31 03/23/17 17:46 03/23/17 15:31 03/23/17 17:46 03/23/17 15:31 Intake and Output: 03/24/17 03/24/17 06:59 18:59 Intake Total 720 Balance 720 - Medications Medications: Current Medications Albuterol Sulfate (Albuterol 0.083% Inhal Sonia (2.5 Mg/3 Ml) Ud) 2.5 mg IH QIDRESP [facility] Allopurinol (Zyloprim) 300 mg PO DAILY [facility] Last Admin: 03/23/17 11:30 Dose: Not Given Alprazolam (Xanax) 0.25 mg PO BID [facility] PRN Reason: Protocol Stop: 03/29/17 18:01 Last Admin: 03/23/17 17:47 Dose: 0.25 mg Aspirin (Ecotrin) 81 mg PO DAILY [facility] Last Admin: 03/23/17 16:32 Dose: Not Given Atorvastatin Calcium (Lipitor) 20 mg PO DIN [facility] Last Admin: 03/23/17 17:06 Dose: 20 mg Carvedilol (Coreg) 3.125 mg PO BID [facility] Last Admin: 03/23/17 17:46 Dose: 3.125 mg Clopidogrel Bisulfate (Plavix) 75 mg PO DAILY [facility] Last Admin: 03/23/17 16:32 Dose: Not Given Furosemide (Lasix) 40 mg PO DAILY [facility] Last Admin: 03/23/17 11:25 Dose: Not Given Gabapentin (Neurontin) 600 mg PO 1000,1400 [facility] Gabapentin (Neurontin) 1,200 mg PO HS [facility] Last Admin: 03/23/17 21:16 Dose: 1,200 mg Gemfibrozil (Lopid) 600 mg PO BID [facility] Last Admin: 03/23/17 17:47 Dose: 600 mg Ceftaroline Fosamil 300 mg/ (Sodium Chloride) 100 mls @ 100 mls/hr IVPB Q12 [facility] PRN Reason: Protocol Stop: 03/29/17 23:46 Last Admin: 03/23/17 22:28 Dose: 100 mls/hr Sodium Chloride (Sodium Chloride 0.45%) 1,000 mls @ 100 mls/hr IV .Q10H [facility] Last Admin: 03/24/17 05:10 Dose: Not Given Insulin Detemir (Levemir) 45 unit SC Q12 [facility] Last Admin: 03/23/17 21:17 Dose: Not Given Insulin Human Lispro (Humalog) 45 units SC ACTID [facility] Last Admin: 03/23/17 17:05 Dose: 45 units Losartan Potassium (Cozaar) 25 mg PO DAILY [facility] Last Admin: 03/23/17 11:23 Dose: Not Given Metformin HCl (Glucophage) 850 mg PO BID [facility] Last Admin: 03/23/17 17:47 Dose: 850 mg Montelukast Sodium (Singulair) 10 mg PO HS [facility] Last Admin: 03/23/17 21:16 Dose: 10 mg Fluvoxamine [Luvox] (25 Mg - Home Med) 25 mg PO BID [facility] Last Admin: 03/23/17 17:53 Dose: Not Given Pantoprazole Sodium (Protonix Ec Tab) 20 mg PO ACB [facility] Last Admin: 03/23/17 08:00 Dose: Not Given Quetiapine Fumarate (Seroquel Xr) 50 mg PO BID [facility] PRN Reason: Protocol Last Admin: 03/23/17 17:47 Dose: 50 mg - Labs Labs: 03/24/17 06:00 03/24/17 06:00 PT 16.5 SECONDS (9.4-12.5) H 03/23/17 07:40 INR 1.49 (0.93-1.08) H 03/23/17 07:40 APTT 38.5 Seconds (25.1-36.5) H 03/22/17 15:50 - Constitutional Appears: Non-toxic, No Acute Distress - Head Exam Head Exam: ATRAUMATIC - Eye Exam Eye Exam: EOMI. absent: Scleral icterus - ENT Exam ENT Exam: Mucous Membranes Moist - Respiratory Exam Respiratory Exam: NORMAL BREATHING PATTERN. absent: Accessory Muscle Use, Respiratory Distress - Cardiovascular Exam Cardiovascular Exam: +S1, +S2. absent: Bradycardia, Tachycardia - GI/Abdominal Exam GI & Abdominal Exam: Soft, Tenderness. absent: Distended, Firm, Guarding, Rigid , Rebound Additional comments: packing removed at bedside erythema still present- circled no active draining induration palpated around incision - Extremities Exam Extremities Exam: Normal Inspection. absent: Calf Tenderness - Neurological Exam Neurological Exam: Alert, Awake, Oriented x3 - Skin Skin Exam: Erythema, Warm Assessment and Plan - Assessment and Plan (Free Text) Assessment: 56F s/p I&D of abdominal wall abscess POD#1 Plan: - remove packing at bedside - regular diet - IV abx - pain control PRN - allowed to clean and shower including area of wound - no physical restriction, can ambulate and move as tolerated - further recs per Dr. Jorden Mazariegos PGY1
[2017-03-24] MEDS: Insulin Lispro 1 UNITS/0.01 ML SC SCH (09:57)
[2017-03-24] MEDS: QUEtiapine 50 mg XR Tab PO SCH ×2 (10:14→21:56)
[2017-03-24] MEDS: Pantoprazole 20 mg EC Tab PO SCH (10:14)
[2017-03-24] MEDS: Insulin Detemir 100 units/ml Vial (Levemir) SC SCH ×2 (10:15→21:54)
[2017-03-24] MEDS: FLUVOXAMINE 25 MG PO SCH ×2 (10:15→17:16)
[2017-03-24] MEDS: Insulin Lispro (humaLOG) LOW Coverage SC SCH ×3 (11:45→21:54)
[2017-03-24] MEDS: Albuterol 0.083% Inhal Sol (2.5 mg/3 mL) UD IH SCH ×3 (13:33→20:46)
[2017-03-24] MEDS ORDERED: Silver Nitrate Topical - Stick TOP STA (14:56)
[2017-03-24] MEDS ORDERED: HYDROmorphone 1 mg/ml ISec IVP STA (15:23)
--- NOTE | 2017-03-24 19:01 | PN ---
DATE: 03/24/2017 SUBJECTIVE: The patient is in bed in no acute distress, nontoxic. No fevers. The patient was seen early this morning in room 571, bed 2. PHYSICAL EXAMINATION: VITAL SIGNS: Temperature is 98, blood pressure is 120/70, respiratory rate of 18. HEENT: Unremarkable. NECK: Supple. LUNGS: Decreased breath sound. HEART: Normal S1, S2. ABDOMEN: Examination is soft, nontender. LABORATORY EXAMINATION: Reveals the white count is down to 12,200, hemoglobin of 8, platelets of 202. Chemistries are noted. BUN of 85, creatinine of 2.3. Microbiology reveals the abdominal culture has a Gram-positive cocci. The blood cultures have no growth. Review of orders reveals the patient to be on ceftaroline. ASSESSMENT AND PLAN: This is a 56-year-old female seen early this morning in room 571, bed 2 with history of diabetes, chronic obstructive pulmonary disease, fibromyalgia, history of urinary tract infection, restless leg syndrome, history of pneumonia, hypertension, chronic congestive heart failure, diabetes mellitus, history of kidney stones, endometriosis, oophorectomy and now with sepsis through abdominal wall abscess, incision and drainage, on Teflaro. We will follow closely with you. Dr. Leonardo' note is reviewed from this morning. Abdominal wall packing was removed by the surgical team. We will continue the present antibiotics regimen from an infectious disease point of view. Terrance Kent MD
[2017-03-24 19:08] LABS: HEMATOCRIT 26.7 % (36.0-48.0); MEAN CELL VOLUME 96.4 fl (80.0-105.0); MEAN CORPUSCULAR HGB CONC 31.1 g/dl (31.0-37.0); MEAN PLATELET VOLUME 10.4 fl (7.0-11.0); WHITE BLOOD COUNT 11.8 10^3/ul (4.5-11.0)
--- NOTE | 2017-03-24 20:26 | CP.PCM.PCO ---
Physician Communication Note - Physician Communication Note Physician Communication Note: PO 1:Bleeding after packing removed cauterized/ repacked
--- NOTE | 2017-03-24 21:57 | CARD ---
APPROVED REPORT EKG Measurement Heart [id number] <Conclusion> Normal sinus rhythm Normal ECG
[2017-03-25] MEDS: Sodium Chloride 0.45% 1,000 ML IV SCH ×2 (02:23→14:06)
--- NOTE | 2017-03-25 04:25 | CP.PCM.PN ---
Subjective - Date & Time of Evaluation Date of Evaluation: 03/25/17 Time of Evaluation: 04:23 - Subjective Subjective: Patient was seen for epistaxis from right nostril. Manual pressure for 15 minutes stopped bleeding from right anterior nose. Objective - Vital Signs/Intake and Output Vital Signs (last 24 hours): Temp Pulse Resp BP Pulse Ox 98.7 F 85 16 117/85 97 03/23/17 15:31 03/24/17 17:15 03/23/17 15:31 03/24/17 17:15 03/23/17 15:31 Intake and Output: 03/24/17 03/25/17 18:59 06:59 Intake Total 2079 Balance 0 - Medications Medications: Current Medications Acetaminophen (Tylenol 325mg Tab) 650 mg PO Q6H PRN PRN Reason: Pain, moderate (4-7) Albuterol Sulfate (Albuterol 0.083% Inhal Sonia (2.5 Mg/3 Ml) Ud) 2.5 mg IH QIDRESP [facility] Last Admin: 03/24/17 20:46 Dose: Not Given Allopurinol (Zyloprim) 100 mg PO DAILY [facility] Alprazolam (Xanax) 0.25 mg PO BID [facility] PRN Reason: Protocol Stop: 03/29/17 18:01 Last Admin: 03/24/17 17:15 Dose: 0.25 mg Aspirin (Ecotrin) 81 mg PO DAILY [facility] Last Admin: 03/24/17 10:14 Dose: 81 mg Atorvastatin Calcium (Lipitor) 20 mg PO DIN [facility] Last Admin: 03/24/17 17:15 Dose: 20 mg Carvedilol (Coreg) 3.125 mg PO BID [facility] Last Admin: 03/24/17 17:15 Dose: 3.125 mg Clopidogrel Bisulfate (Plavix) 75 mg PO DAILY [facility] Last Admin: 03/24/17 10:13 Dose: 75 mg Furosemide (Lasix) 40 mg PO DAILY [facility] Last Admin: 03/23/17 11:25 Dose: Not Given Gabapentin (Neurontin) 600 mg PO 1000,1400 [facility] Last Admin: 03/24/17 15:51 Dose: Not Given Gabapentin (Neurontin) 1,200 mg PO HS [facility] Last Admin: 03/24/17 21:56 Dose: 1,200 mg Gemfibrozil (Lopid) 600 mg PO BID [facility] Last Admin: 03/24/17 17:15 Dose: 600 mg Ceftaroline Fosamil 300 mg/ (Sodium Chloride) 100 mls @ 100 mls/hr IVPB Q12 [facility] PRN Reason: Protocol Stop: 03/29/17 23:46 Last Admin: 03/24/17 21:57 Dose: 100 mls/hr Sodium Chloride (Sodium Chloride 0.45%) 1,000 mls @ 100 mls/hr IV .Q10H [facility] Last Admin: 03/25/17 02:23 Dose: Not Given Insulin Detemir (Levemir) 45 unit SC Q12 [facility] Last Admin: 03/24/17 21:54 Dose: Not Given Insulin Human Lispro (Humalog Low) 0 units SC ACHS [facility] PRN Reason: Protocol Last Admin: 03/24/17 21:54 Dose: Not Given Losartan Potassium (Cozaar) 25 mg PO DAILY [facility] Last Admin: 03/24/17 10:15 Dose: 25 mg Montelukast Sodium (Singulair) 10 mg PO HS [facility] Last Admin: 03/24/17 21:56 Dose: 10 mg Fluvoxamine [Luvox] (25 Mg - Home Med) 25 mg PO BID [facility] Last Admin: 03/24/17 17:16 Dose: Not Given Pantoprazole Sodium (Protonix Ec Tab) 20 mg PO ACB [facility] Last Admin: 03/24/17 10:14 Dose: 20 mg Quetiapine Fumarate (Seroquel Xr) 100 mg PO HS [facility] PRN Reason: Protocol Last Admin: 03/24/17 21:56 Dose: 100 mg - Labs Labs: 03/24/17 19:00 03/24/17 06:00 PT 16.5 SECONDS (9.4-12.5) H 03/23/17 07:40 INR 1.49 (0.93-1.08) H 03/23/17 07:40 APTT 38.5 Seconds (25.1-36.5) H 03/22/17 15:50
[2017-03-25] MEDS: Albuterol 0.083% Inhal Sol (2.5 mg/3 mL) UD IH SCH ×4 (07:25→19:36)
[2017-03-25 07:44] LABS: MEAN CELL VOLUME 95.1 fl (80.0-105.0); MEAN CORPUSCULAR HGB CONC 31.6 g/dl (31.0-37.0); MEAN PLATELET VOLUME 10.1 fl (7.0-11.0)
[2017-03-25 08:00] LABS: HEMATOCRIT 23.1 % (36.0-48.0)
[2017-03-25 08:21] LABS: CALCIUM 9.3 mg/dL (8.4-10.5); POTASSIUM 4.5 mmol/L (3.6-5.0)
[2017-03-25] MEDS: Insulin Lispro (humaLOG) LOW Coverage SC SCH ×4 (08:51→21:35)
--- NOTE | 2017-03-25 09:07 | CP.PCM.PN ---
Subjective - Date & Time of Evaluation Date of Evaluation: 03/25/17 Time of Evaluation: 09:02 - Subjective Subjective: Surgery: Dr. Leonardo Pt seen and examined. Overnight, pt had several episodes of epistaxis which seems to have resolved at this time. She states her abdominal wound was also bleeding and had to be reinforced. Currently, pt is feeling better and is no longer actively bleeding. Denies other complaints at this time. Objective - Vital Signs/Intake and Output Vital Signs (last 24 hours): Temp Pulse Resp BP Pulse Ox 97.8 F 70 18 128/68 96 03/25/17 08:26 03/25/17 08:26 03/25/17 08:26 03/25/17 08:26 03/25/17 08:26 Intake and Output: 03/25/17 03/25/17 06:59 18:59 Intake Total 720 Balance 720 - Medications Medications: Current Medications Acetaminophen (Tylenol 325mg Tab) 650 mg PO Q6H PRN PRN Reason: Pain, moderate (4-7) Albuterol Sulfate (Albuterol 0.083% Inhal Sonia (2.5 Mg/3 Ml) Ud) 2.5 mg IH QIDRESP [facility] Last Admin: 03/25/17 07:25 Dose: 2.5 mg Allopurinol (Zyloprim) 100 mg PO DAILY [facility] Alprazolam (Xanax) 0.25 mg PO BID [facility] PRN Reason: Protocol Stop: 03/29/17 18:01 Last Admin: 03/24/17 17:15 Dose: 0.25 mg Aspirin (Ecotrin) 81 mg PO DAILY [facility] Last Admin: 03/24/17 10:14 Dose: 81 mg Atorvastatin Calcium (Lipitor) 20 mg PO DIN [facility] Last Admin: 03/24/17 17:15 Dose: 20 mg Carvedilol (Coreg) 3.125 mg PO BID [facility] Last Admin: 03/24/17 17:15 Dose: 3.125 mg Clopidogrel Bisulfate (Plavix) 75 mg PO DAILY [facility] Last Admin: 03/24/17 10:13 Dose: 75 mg Furosemide (Lasix) 40 mg PO DAILY [facility] Last Admin: 03/23/17 11:25 Dose: Not Given Gabapentin (Neurontin) 600 mg PO 1000,1400 [facility] Last Admin: 03/24/17 15:51 Dose: Not Given Gabapentin (Neurontin) 1,200 mg PO HS [facility] Last Admin: 03/24/17 21:56 Dose: 1,200 mg Gemfibrozil (Lopid) 600 mg PO BID [facility] Last Admin: 03/24/17 17:15 Dose: 600 mg Ceftaroline Fosamil 300 mg/ (Sodium Chloride) 100 mls @ 100 mls/hr IVPB Q12 [facility] PRN Reason: Protocol Stop: 03/29/17 23:46 Last Admin: 03/24/17 21:57 Dose: 100 mls/hr Sodium Chloride (Sodium Chloride 0.45%) 1,000 mls @ 100 mls/hr IV .Q10H [facility] Last Admin: 03/25/17 02:23 Dose: Not Given Insulin Human Lispro (Humalog Low) 0 units SC ACHS [facility] PRN Reason: Protocol Last Admin: 03/25/17 08:51 Dose: Not Given Losartan Potassium (Cozaar) 25 mg PO DAILY [facility] Last Admin: 03/24/17 10:15 Dose: 25 mg Montelukast Sodium (Singulair) 10 mg PO HS [facility] Last Admin: 03/24/17 21:56 Dose: 10 mg Fluvoxamine [Luvox] (25 Mg - Home Med) 25 mg PO BID [facility] Last Admin: 03/24/17 17:16 Dose: Not Given Pantoprazole Sodium (Protonix Ec Tab) 20 mg PO ACB [facility] Last Admin: 03/24/17 10:14 Dose: 20 mg Quetiapine Fumarate (Seroquel Xr) 100 mg PO HS [facility] PRN Reason: Protocol Last Admin: 03/24/17 21:56 Dose: 100 mg - Labs Labs: 03/25/17 06:45 03/25/17 06:45 PT 16.5 SECONDS (9.4-12.5) H 03/23/17 07:40 INR 1.49 (0.93-1.08) H 03/23/17 07:40 APTT 38.5 Seconds (25.1-36.5) H 03/22/17 15:50 - Constitutional Appears: Well, No Acute Distress - Head Exam Head Exam: ATRAUMATIC, NORMOCEPHALIC - Eye Exam Eye Exam: Normal appearance - ENT Exam Additional comments: dried blood in oropharynx - Respiratory Exam Respiratory Exam: NORMAL BREATHING PATTERN - Cardiovascular Exam Cardiovascular Exam: RRR - GI/Abdominal Exam GI & Abdominal Exam: Soft. absent: Distended, Tenderness Additional comments: abdominal dressing clean, dry, intact - Neurological Exam Neurological Exam: Alert, Awake, Oriented x3 - Skin Skin Exam: Dry, Warm Assessment and Plan - Assessment and Plan (Free Text) Assessment: 56F s/p I&D of abdominal wall abscess; POD#2 Plan: - Cont IV ABx as per ID recs - Keep abdominal packing in place for hemostasis; will remove tomorrow to re- asses - d/w Dr. Jorden Rose, PGY-3 Surgery
[2017-03-25] MEDS: Pantoprazole 20 mg EC Tab PO SCH (10:21)
[2017-03-25] MEDS: FLUVOXAMINE 25 MG PO SCH ×2 (10:35→21:22)
--- NOTE | 2017-03-25 12:33 | CP.PCM.PCO ---
Physician Communication Note - Physician Communication Note Physician Communication Note: wound/nasal bleeding slowed down
--- NOTE | 2017-03-25 15:54 | PN ---
DATE: 03/25/2017 SUBJECTIVE: The patient is in bed, in no acute distress, was seen earlier. PHYSICAL EXAMINATION: VITAL SIGNS: On exam, temperature is 97, blood pressure is 128/80, respiratory rate of 18. HEENT: Unremarkable. NECK: Supple. LUNGS: Have decreased breath sounds. HEART: Normal S1, S2. ABDOMEN: Soft, nontender. LABORATORY DATA: Reveals a white count of 9, hemoglobin of 7, platelets of 191. Coagulation is noted. BUN of 83, creatinine of 2.4. Microbiology reveals the culture of the abdomen shows Staph aureus and sensitive to oxacillin with less than 0.25. ASSESSMENT AND PLAN: This is a 56-year-old female, history of diabetes, chronic obstructive lung disease, fibromyalgia, urinary tract infection, restless leg syndrome, history of pneumonia, hypertension, congestive heart failure, kidney stones, endometriosis, oophorectomy now with sepsis, abdominal wall abscess with Staphylococcus aureus on Teflaro. We will continue the present course and check on the final culture results. Terrance Kent MD
--- NOTE | 2017-03-25 16:20 | PN ---
03/25/2017DATE: SUBJECTIVE: The patient has no complaints of any chest pain. No shortness of breath. No headache or dizziness. She says she does have pain in the left leg at times. PHYSICAL EXAMINATION: VITAL SIGNS: Temperature is 97.8, pulse is 70, blood pressure is 120/68, respirations are 18, and O2 saturations are 96%. GENERAL: The patient is lying in bed, flat, comfortable. HEENT: No oral lesion. Anicteric sclerae. Moist mucosa. NECK: No JVD, adenopathy, or thyromegaly. CARDIOVASCULAR: S1 and S2, regular. No murmurs, rubs, or gallops. LUNGS: Clear to auscultation bilaterally. No wheeze, rales, or rhonchi. ABDOMEN: Bowel sounds are positive, soft, nontender and nondistended. EXTREMITIES: No cyanosis, clubbing or edema. Left leg is covered with dressing. ASSESSMENT: 1. Abdominal wall abscess, status post incision and drainage. 2. Epistaxis. 3. Hypertension. 4. Dyslipidemia. 5. Diabetes type 2. 6. Abdominal cellulitis. 7. Chronic kidney disease, stage IV. PLAN: The patient is currently comfortable. She is receiving IV fluid with normal saline. I will decrease the patient's IV fluids to 50 mL. The patient is going to be on aspirin. I am going to continue Lipitor for dyslipidemia. He is on gemfibrozil for dyslipidemia. The patient's Lasix is on hold. She is receiving antibiotics with Teflaro. She is going to continue with allopurinol. She is on heart healthy diet. She does not want to get ENT evaluation. She does wish to get Dr. Dang to follow her for the anemia. Jens Singh MD
[2017-03-25] MEDS: QUEtiapine 50 mg XR Tab PO SCH (21:21)
[2017-03-26] MEDS: Albuterol 0.083% Inhal Sol (2.5 mg/3 mL) UD IH SCH ×4 (07:11→21:11)
[2017-03-26 07:13] LABS: HEMATOCRIT 24.7 % (36.0-48.0); MEAN CELL VOLUME 95.4 fl (80.0-105.0); MEAN CORPUSCULAR HEMOGLOBIN 30.1 pg (25.0-35.0); MEAN CORPUSCULAR HGB CONC 31.6 g/dl (31.0-37.0); RED CELL DISTRIBUTION WIDTH 15.9 % (11.5-14.5)
[2017-03-26 07:47] LABS: CALCIUM 9.9 mg/dL (8.4-10.5); POTASSIUM 4.7 mmol/L (3.6-5.0)
[2017-03-26] MEDS: Pantoprazole 20 mg EC Tab PO SCH (08:19)
--- NOTE | 2017-03-26 08:19 | CP.PCM.PN ---
Subjective - Date & Time of Evaluation Date of Evaluation: 03/26/17 Time of Evaluation: 08:16 - Subjective Subjective: PGY1 Note for Dr. Leonardo Patient seen and examined at bedside. Doing well with no complaints at this time. States bleeding has resolved. Minimal pain. Able to ambulate. No fever or chills Objective - Vital Signs/Intake and Output Vital Signs (last 24 hours): Temp Pulse Resp BP Pulse Ox 97.8 F 85 18 121/75 99 03/25/17 16:00 03/25/17 17:24 03/25/17 16:00 03/25/17 17:24 03/25/17 16:00 Intake and Output: 03/26/17 03/26/17 06:59 18:59 Intake Total 240 Balance 240 - Medications Medications: Current Medications Acetaminophen (Tylenol 325mg Tab) 650 mg PO Q6H PRN PRN Reason: Pain, moderate (4-7) Albuterol Sulfate (Albuterol 0.083% Inhal Sonia (2.5 Mg/3 Ml) Ud) 2.5 mg IH QIDRESP [facility] Last Admin: 03/26/17 07:11 Dose: 2.5 mg Allopurinol (Zyloprim) 100 mg PO DAILY [facility] Last Admin: 03/25/17 10:22 Dose: 100 mg Alprazolam (Xanax) 0.25 mg PO BID [facility] PRN Reason: Protocol Stop: 03/29/17 18:01 Last Admin: 03/25/17 17:24 Dose: 0.25 mg Aspirin (Ecotrin) 81 mg PO DAILY [facility] Last Admin: 03/25/17 10:35 Dose: Not Given Atorvastatin Calcium (Lipitor) 20 mg PO DIN [facility] Last Admin: 03/25/17 17:24 Dose: 20 mg Carvedilol (Coreg) 3.125 mg PO BID [facility] Last Admin: 03/25/17 17:24 Dose: 3.125 mg Clopidogrel Bisulfate (Plavix) 75 mg PO DAILY [facility] Last Admin: 03/25/17 10:34 Dose: Not Given Furosemide (Lasix) 40 mg PO DAILY [facility] Last Admin: 03/23/17 11:25 Dose: Not Given Gabapentin (Neurontin) 600 mg PO 1000,1400 [facility] Last Admin: 03/25/17 14:05 Dose: 600 mg Gabapentin (Neurontin) 1,200 mg PO HS [facility] Last Admin: 03/25/17 21:21 Dose: 1,200 mg Gemfibrozil (Lopid) 600 mg PO BID [facility] Last Admin: 03/25/17 17:24 Dose: 600 mg Ceftaroline Fosamil 300 mg/ (Sodium Chloride) 100 mls @ 100 mls/hr IVPB Q12 [facility] PRN Reason: Protocol Stop: 03/29/17 23:46 Last Admin: 03/25/17 21:21 Dose: 100 mls/hr Sodium Chloride (Sodium Chloride 0.45%) 1,000 mls @ 50 mls/hr IV .Q20H [facility] Last Admin: 03/25/17 14:06 Dose: 50 mls/hr Insulin Human Lispro (Humalog Low) 0 units SC ACHS [facility] PRN Reason: Protocol Last Admin: 03/25/17 21:35 Dose: 6 units Losartan Potassium (Cozaar) 25 mg PO DAILY [facility] Last Admin: 03/25/17 10:22 Dose: 25 mg Montelukast Sodium (Singulair) 10 mg PO HS [facility] Last Admin: 03/25/17 21:22 Dose: 10 mg Fluvoxamine [Luvox] (25 Mg - Home Med) 25 mg PO BID [facility] Last Admin: 03/25/17 21:22 Dose: Not Given Pantoprazole Sodium (Protonix Ec Tab) 20 mg PO ACB [facility] Last Admin: 03/25/17 10:21 Dose: 20 mg Quetiapine Fumarate (Seroquel Xr) 100 mg PO HS [facility] PRN Reason: Protocol Last Admin: 03/25/17 21:21 Dose: 100 mg - Labs Labs: 03/26/17 06:30 03/26/17 06:30 PT 16.5 SECONDS (9.4-12.5) H 03/23/17 07:40 INR 1.49 (0.93-1.08) H 03/23/17 07:40 APTT 38.5 Seconds (25.1-36.5) H 03/22/17 15:50 - Constitutional Appears: Non-toxic, No Acute Distress - Head Exam Head Exam: ATRAUMATIC, NORMAL INSPECTION, NORMOCEPHALIC - Eye Exam Eye Exam: EOMI - ENT Exam Additional comments: packing in R. nostril, dry - Respiratory Exam Respiratory Exam: Clear to Ausculation Bilateral, NORMAL BREATHING PATTERN - Cardiovascular Exam Cardiovascular Exam: REGULAR RHYTHM - GI/Abdominal Exam GI & Abdominal Exam: Soft, Tenderness (minimla tenderness around incision site. dressing clean and dry), Normal Bowel Sounds. absent: Distended - Extremities Exam Extremities Exam: absent: Joint Swelling, Tenderness - Neurological Exam Neurological Exam: Alert, Awake, Oriented x3 - Psychiatric Exam Psychiatric exam: Normal Affect, Normal Mood - Skin Skin Exam: Dry, Intact, Normal Color, Warm Assessment and Plan - Assessment and Plan (Free Text) Assessment: 56F s/p I&D of abdominal wall abscess; POD#3 Plan: * dressing changed today, packing removed * Change dressing daily * continue abx * no surgical intervention needed at this time * Further reccs per Dr. Leonardo
[2017-03-26] MEDS: Insulin Lispro (humaLOG) LOW Coverage SC SCH ×2 (08:20→12:51)
--- NOTE | 2017-03-26 09:11 | PN ---
DATE: 03/24/2017 SUBJECTIVE: The patient is a 56-year-old, seen and examined, lying in bed, seemed to be comfortable, had I and D done yesterday, seeping serous bloody discharge on the dressing. PHYSICAL EXAMINATION: VITAL SIGNS: She is afebrile, pulse 84, respirations 18, blood pressure 120/70. LUNGS: Bilateral fair airflow. No rhonchi or crackle. HEART: S1 and S2 audible. ABDOMEN: Soft, obese, nontender. No rebound, no guarding. NEUROLOGIC: The patient is awake, alert, oriented, able to communicate, ambulatory. EXTREMITIES: Bilateral leg, no edema. LABORATORY DATA: WBC is 12.2, hemoglobin 8.8, hematocrit 27.9, platelet of 202. Chemistry: Sodium 140, potassium 4.0, chloride 104, CO2 of 25, BUN 85, creatinine 2.3, blood sugar of 129. ASSESSMENT: 1. Abdominal wall cellulitis, status post incision and drainage. 2. History of hypertension, but stable now. 3. Chronic kidney disease. 4. Depression. 5. [id number] diabetes. PLAN: We will continue on Teflaro. We will discontinue metformin for now because her creatinine is high. We will monitor her blood sugar and just give her sliding scale. Colt Zhu MD
[2017-03-26] MEDS: Sodium Chloride 0.45% 1,000 ML IV SCH (10:36)
[2017-03-26] MEDS: FLUVOXAMINE 25 MG PO SCH ×2 (10:37→17:27)
[2017-03-26 11:26] LABS: IRON 47 ug/dL (45-180)
[2017-03-26] MEDS: ceFAZolin 2 GM in Sodium Chloride 0.9% 100 ML IVPB SCH ×2 (14:00→21:52)
--- NOTE | 2017-03-26 14:28 | PN ---
DATE: 03/26/2017 LOCATION: The patient in room 571, bed 2. REASON FOR CONSULTATION: Follow up coronary artery disease, history of angioplasty, diabetes mellitus, hypertension, hyperlipidemia, COPD, cellulitis, abscess of the abdominal wall. SUBJECTIVE: The patient denies any chest pain, shortness of breath, palpitation. PHYSICAL EXAMINATION: VITAL SIGNS: Blood pressure 117/64, respirations 20, pulse 95 and temperature 98. HEENT: Head is normocephalic. Eyes, pupils normal. Conjunctivae pale. NECK: JVP low. Carotid equal. Thorax AP diameter normal. LUNGS: Clear. CARDIOVASCULAR: S1, S2. ABDOMEN: Soft. Has incision and drainage site of the abscess. Bowel sounds normal. EXTREMITIES: No clubbing. No cyanosis. LABORATORY DATA: WBC 10.0, hemoglobin 7.8, hematocrit 24.7, platelet 215. Sodium 141, potassium 4.7, BUN 72, creatinine 2.1. On 03/22/2017; BUN of 99, creatinine 3.1. So IV fluid was started and seemed like kidney function slightly improved. DIAGNOSES: Cellulitis and abscess of the abdomen status post incision and drainage, insulin-dependent diabetes mellitus, coronary artery disease, history of stent insertion, hypertension, hyperlipidemia, anemia, history of depression, and renal dysfunction. PLAN: The patient getting half normal saline 50 mL an hour, Ancef 2 g IV q. 8 hours, Coreg 3.125 b.i.d., Losartan 25 mg daily, and aspirin 81 mg daily, atorvastatin 20 mg daily, insulin ordered, Lopid 600 mg b.i.d., Neurontin. We will continue present therapy. We will follow with you. Stephanie Hartley MD
[2017-03-26] MEDS: Insulin Lispro 1 UNITS/0.01 ML SC SCH (17:24)
[2017-03-26] MEDS: Insulin Lispro (humaLOG) MEDIUM Coverage SC SCH ×2 (17:24→21:36)
--- NOTE | 2017-03-26 18:15 | CP.PCM.PN ---
Subjective - Date & Time of Evaluation Date of Evaluation: 03/26/17 Time of Evaluation: 12:20 - Subjective Subjective: LEss pain in the abdomen, no fevers, no diarrhea. Objective - Vital Signs/Intake and Output Vital Signs (last 24 hours): Temp Pulse Resp BP Pulse Ox 98 F 95 H 20 117/64 99 03/26/17 07:00 03/26/17 07:00 03/26/17 07:00 03/26/17 07:00 03/25/17 16:00 Intake and Output: 03/26/17 03/26/17 06:59 18:59 Intake Total 240 Balance 240 - Medications Medications: Current Medications Acetaminophen (Tylenol 325mg Tab) 650 mg PO Q6H PRN PRN Reason: Pain, moderate (4-7) Albuterol Sulfate (Albuterol 0.083% Inhal Sonia (2.5 Mg/3 Ml) Ud) 2.5 mg IH QIDRESP [facility] Last Admin: 03/26/17 07:11 Dose: 2.5 mg Allopurinol (Zyloprim) 100 mg PO DAILY [facility] Last Admin: 03/26/17 10:33 Dose: 100 mg Alprazolam (Xanax) 0.25 mg PO BID [facility] PRN Reason: Protocol Stop: 03/29/17 18:01 Last Admin: 03/26/17 10:33 Dose: 0.25 mg Aspirin (Ecotrin) 81 mg PO DAILY [facility] Last Admin: 03/26/17 10:37 Dose: Not Given Atorvastatin Calcium (Lipitor) 20 mg PO DIN [facility] Last Admin: 03/25/17 17:24 Dose: 20 mg Carvedilol (Coreg) 3.125 mg PO BID [facility] Last Admin: 03/26/17 10:33 Dose: 3.125 mg Clopidogrel Bisulfate (Plavix) 75 mg PO DAILY [facility] Last Admin: 03/26/17 10:37 Dose: Not Given Furosemide (Lasix) 40 mg PO DAILY [facility] Last Admin: 03/23/17 11:25 Dose: Not Given Gabapentin (Neurontin) 600 mg PO 1000,1400 [facility] Last Admin: 03/26/17 10:33 Dose: 600 mg Gabapentin (Neurontin) 1,200 mg PO HS [facility] Last Admin: 03/25/17 21:21 Dose: 1,200 mg Gemfibrozil (Lopid) 600 mg PO BID [facility] Last Admin: 03/26/17 10:33 Dose: 600 mg Sodium Chloride (Sodium Chloride 0.45%) 1,000 mls @ 50 mls/hr IV .Q20H [facility] Last Admin: 03/26/17 10:36 Dose: 50 mls/hr Insulin Human Lispro (Humalog Low) 0 units SC ACHS [facility] PRN Reason: Protocol Last Admin: 03/26/17 08:20 Dose: 4 units Losartan Potassium (Cozaar) 25 mg PO DAILY [facility] Last Admin: 03/26/17 10:33 Dose: 25 mg Montelukast Sodium (Singulair) 10 mg PO HS [facility] Last Admin: 03/25/17 21:22 Dose: 10 mg Fluvoxamine [Luvox] (25 Mg - Home Med) 25 mg PO BID [facility] Last Admin: 03/26/17 10:37 Dose: Not Given Pantoprazole Sodium (Protonix Ec Tab) 20 mg PO ACB [facility] Last Admin: 03/26/17 08:19 Dose: 20 mg Quetiapine Fumarate (Seroquel Xr) 100 mg PO [facility] PRN Reason: Protocol Last Admin: 03/25/17 21:21 Dose: 100 mg - Labs Labs: 03/26/17 06:30 03/26/17 06:30 PT 16.5 SECONDS (9.4-12.5) H 03/23/17 07:40 INR 1.49 (0.93-1.08) H 03/23/17 07:40 APTT 38.5 Seconds (25.1-36.5) H 03/22/17 15:50 - Constitutional Appears: Non-toxic - Head Exam Head Exam: NORMAL INSPECTION - Neck Exam Neck Exam: absent: Meningismus - Respiratory Exam Respiratory Exam: Decreased Breath Sounds - Cardiovascular Exam Cardiovascular Exam: +S1, +S2 - GI/Abdominal Exam GI & Abdominal Exam: Soft. absent: Tenderness Assessment and Plan - Assessment and Plan (Free Text) Plan: Assessment Sepsis due to abdominal wall abscess S/P I and D POD #4 - growing MSSA history of sepsis due to UTI with E. coli which is resistant to many antibiotics but sensitive to Imipenem (but not ESBL-producing) COPD fibromyalgia history of UTI's restless leg syndrome history of pneumonia HTN chronic CHF DM history of kidney stones history of endometriosis S/P oophorectomy history of cellulitis of lower extremities Plan change Teflaro to CEfazolin - should complete 7-10 days of therapy will monitor clinically
--- NOTE | 2017-03-26 21:50 | PN ---
DATE: SUBJECTIVE: The patient is a 56-year-old, seen and examined, doing well, complain of generalized weakness, feeling tired and sleepy, lost blood after I and D. PHYSICAL EXAMINATION VITAL SIGNS: She is afebrile, pulse 90, respirations 18, blood pressure 135/71. LUNGS: Bilateral fair airflow. No rhonchi or crackle. HEART: S1 and S2 audible. ABDOMEN: Soft, obese, nontender. Dressing on the I and D site, draining blood-tinged fluid. LABORATORY DATA: WBC is 10, hemoglobin 7.8, hematocrit 24.7, platelets 215. Chemistry: Sodium 141, potassium 4.7, chloride 106, CO2 of 25, BUN 72, creatinine 2.1, blood sugar of . ASSESSMENT AND PLAN: 1. Abdominal wall cellulitis, status post incision and drainage. 2. Hypertension. 3. Insulin-dependent diabetes. 4. Symptomatic anemia. 5. Hyperlipidemia. PLAN: We will transfuse the patient with packed RBCs, TCU evaluation at the request of Wound Care and continue completion of antibiotics. We will follow up on CBC and CMP in a.m. Colt Zhu MD
[2017-03-26] MEDS: QUEtiapine 50 mg XR Tab PO SCH (21:51)
[2017-03-26] MEDS ORDERED: Insulin Detemir 100 units/ml Vial (Levemir) SC SCH (22:00)
[2017-03-27] MEDS: Sodium Chloride 0.45% 1,000 ML IV SCH (06:28)
[2017-03-27] MEDS: ceFAZolin 2 GM in Sodium Chloride 0.9% 100 ML IVPB SCH ×2 (06:28→15:00)
[2017-03-27] MEDS: Albuterol 0.083% Inhal Sol (2.5 mg/3 mL) UD IH SCH ×2 (07:22→11:05)
[2017-03-27 07:50] LABS: HEMATOCRIT 29.8 % (36.0-48.0); MEAN CORPUSCULAR HEMOGLOBIN 29.9 pg (25.0-35.0); MEAN CORPUSCULAR HGB CONC 32.6 g/dl (31.0-37.0); MEAN PLATELET VOLUME 10.5 fl (7.0-11.0)
[2017-03-27 08:08] LABS: ALB/GLOB RATIO 1.1 (1.1-1.8); BILIRUBIN,TOTAL 0.4 mg/dL (0.2-1.3); POTASSIUM 4.3 mmol/L (3.6-5.0); TOTAL PROTEIN 6.9 g/dL (5.8-8.3)
--- NOTE | 2017-03-27 08:27 | CP.PCM.PN ---
Subjective - Date & Time of Evaluation Date of Evaluation: 03/27/17 Time of Evaluation: 06:30 - Subjective Subjective: General Surgery- Dr. Jaramillo Pt seen and examined at bedside this AM. Patient was transfused 2units of PRBC last night. Patient denies headaches, dizziness, chest pain, heart palpitations , nausea, vomiting, diarrhea. dressing changed at bedside this AM. no signs of active bleeding. Objective - Vital Signs/Intake and Output Vital Signs (last 24 hours): Temp Pulse Resp BP Pulse Ox 98.8 F 91 H 18 134/78 98 03/27/17 04:43 03/27/17 04:43 03/27/17 04:43 03/27/17 04:43 03/26/17 16:00 Intake and Output: 03/27/17 03/27/17 06:59 18:59 Intake Total 385 240 Balance 385 240 - Medications Medications: Current Medications Acetaminophen (Tylenol 325mg Tab) 650 mg PO Q6H PRN PRN Reason: Pain, moderate (4-7) Albuterol Sulfate (Albuterol 0.083% Inhal Sonia (2.5 Mg/3 Ml) Ud) 2.5 mg IH QIDRESP [facility] Last Admin: 03/27/17 07:22 Dose: Not Given Allopurinol (Zyloprim) 100 mg PO DAILY [facility] Last Admin: 03/26/17 10:33 Dose: 100 mg Alprazolam (Xanax) 0.25 mg PO BID [facility] PRN Reason: Protocol Stop: 03/29/17 18:01 Last Admin: 03/26/17 17:27 Dose: 0.25 mg Aspirin (Ecotrin) 81 mg PO DAILY [facility] Last Admin: 03/26/17 10:37 Dose: Not Given Atorvastatin Calcium (Lipitor) 20 mg PO DIN [facility] Last Admin: 03/26/17 17:25 Dose: 20 mg Carvedilol (Coreg) 3.125 mg PO BID [facility] Last Admin: 03/26/17 17:25 Dose: 3.125 mg Clopidogrel Bisulfate (Plavix) 75 mg PO DAILY [facility] Last Admin: 03/26/17 10:37 Dose: Not Given Furosemide (Lasix) 40 mg PO DAILY [facility] Last Admin: 03/23/17 11:25 Dose: Not Given Gabapentin (Neurontin) 600 mg PO 1000,1400 [facility] Last Admin: 03/26/17 13:06 Dose: 600 mg Gabapentin (Neurontin) 1,200 mg PO HS [facility] Last Admin: 03/26/17 21:52 Dose: 1,200 mg Gemfibrozil (Lopid) 600 mg PO BID [facility] Last Admin: 03/26/17 17:27 Dose: 600 mg Sodium Chloride (Sodium Chloride 0.45%) 1,000 mls @ 50 mls/hr IV .Q20H [facility] Last Admin: 03/27/17 06:28 Dose: 50 mls/hr Cefazolin Sodium 2 gm/ Sodium (Chloride) 100 mls @ 200 mls/hr IVPB Q8 [facility] PRN Reason: Protocol Last Admin: 03/27/17 06:28 Dose: 200 mls/hr Insulin Detemir (Levemir) 40 unit SC HS [facility] Last Admin: 03/27/17 00:02 Dose: Not Given Insulin Human Lispro (Humalog) 30 units SC AC [facility] Last Admin: 03/26/17 17:24 Dose: 30 units Insulin Human Lispro (Humalog Med) 0 units SC ACHS [facility] PRN Reason: Protocol Last Admin: 03/26/17 21:36 Dose: Not Given Losartan Potassium (Cozaar) 25 mg PO DAILY [facility] Last Admin: 03/26/17 10:33 Dose: 25 mg Montelukast Sodium (Singulair) 10 mg PO HS [facility] Last Admin: 03/26/17 21:52 Dose: 10 mg Fluvoxamine [Luvox] (25 Mg - Home Med) 25 mg PO BID [facility] Last Admin: 03/26/17 17:27 Dose: Not Given Pantoprazole Sodium (Protonix Ec Tab) 20 mg PO ACB [facility] Last Admin: 03/26/17 08:19 Dose: 20 mg Quetiapine Fumarate (Seroquel Xr) 100 mg PO HS [facility] PRN Reason: Protocol Last Admin: 03/26/17 21:51 Dose: 100 mg - Labs Labs: 03/27/17 07:30 03/27/17 07:30 PT 16.5 SECONDS (9.4-12.5) H 03/23/17 07:40 INR 1.49 (0.93-1.08) H 03/23/17 07:40 APTT 38.5 Seconds (25.1-36.5) H 03/22/17 15:50 - Constitutional Appears: Non-toxic, No Acute Distress - Eye Exam Eye Exam: EOMI. absent: Scleral icterus - ENT Exam ENT Exam: Mucous Membranes Moist - Respiratory Exam Respiratory Exam: NORMAL BREATHING PATTERN. absent: Accessory Muscle Use, Respiratory Distress - Cardiovascular Exam Cardiovascular Exam: +S1, +S2. absent: Bradycardia, Tachycardia - GI/Abdominal Exam GI & Abdominal Exam: Soft. absent: Distended, Firm, Guarding, Rigid, Tenderness Additional comments: dressing clean, dry, intact no signs of active bleeding - Neurological Exam Neurological Exam: Alert, Awake, Oriented x3 - Psychiatric Exam Psychiatric exam: Normal Mood - Skin Skin Exam: Dry, Warm Assessment and Plan - Assessment and Plan (Free Text) Assessment: 56F abdominal wall abscess s/p I&D POD# 4 Plan: - change dressing daily with 4x4 and tape * no packing needed - keep area clean - can shower - follow up in clinic as outpatient - cleared for discharge from surgical standpoint - further recs per Dr. Jorden Mazariegos PGY1
[2017-03-27] MEDS: Insulin Lispro (humaLOG) MEDIUM Coverage SC SCH ×2 (08:46→12:27)
[2017-03-27 09:29] VITALS: BP 128/77; PULSE 87; RESP 20; TEMP 98.1; O2SAT 95
[2017-03-27] MEDS: Insulin Lispro 1 UNITS/0.01 ML SC SCH ×2 (09:37→12:24)
--- NOTE | 2017-03-27 10:21 | PQF ANEMIA ---
This form is a permanent part of the medical record Dr. Zhu, H/H decreased on admission but dropping to 7.3 and 23.1 requiring 2 UPRBC. Patient with bleeding after I&D of abdominal wall abscess and with several episodes epistaxis. Patient c/o generalized weakness, feeling tired and sleepy. Please document type and severity of anemia you are treating. Clarification of your documentation is requested to better reflect the severity of illness and intensity of treatment of your patient. Indicators present [x] Anemia [x] Drop in H&H from 9.2 and 29.4 to 7.3 and 23.1 [] Hypotension [] GI Bleed [x] Transfusion(s) [x] Acute bleed other sites- abdominal wall I&D, epistaxis [] Tachycardia [] Surgical Procedure Blood Loss (expected not a complication) Other:[] Location in the medical record that reflects the above clinical findings: [] Treatment Provided: [] PHYSICIAN'S RESPONSE Based on your medical judgment of the clinical indicators outlined above, are you treating this patient for a known or suspected: [x] Acute blood loss anemia [] Chronic blood loss anemia [x] Acute on Chronic blood loss anemia [] Anemia due to malignancy [] Anemia due to chemotherapy or radiation therapy [] Anemia of Chronic Disease, please specify: [] [] Other, please indicate type of anemia []____ [] If Unable to Determine, please check the box, sign and date. Present On Admission (POA) Indicator: [] Present at the time of admission [x] Not present at the time of admission [] Clinically Undetermined In responding to this query, please exercise your independent professional judgment. The fact that a question is asked does not imply that any particular answer is desired or expected. Thank you for your clarification on this documentation. If you have any questions please call:[ ] * Thank you, [ ]Luke Feliciano [facility] #[id number] tile setter supervisor VY
--- NOTE | 2017-03-27 10:28 | PQF SEPSIS ---
This form is a permanent part of the medical record Dr. Zhu, ID center lead consultant noted sepsis due to abdominal wall abscess. Culture positive staph aureus. Please document if you concur with this diagnosis, was it present on admission, ruled out? Clarification of your documentation is requested to better reflect the severity of illness and intensity of treatment of your patient. Indicators present [] Temp < 96.8 or > 100.4 [x] WBC count > 12,000/mm3 or <000/mm3 or 10% immature neutrophils [x] Heart Rate > 90 [] Respiratory Rate > 20 [] Fever or hypothermia [] Chills [] Positive blood cultures [] Hypotension [] Metabolic acidosis (Elevated lactate level, anion gap or reduced blood pH) [] Acute confusion /Altered Mental Status [] Shock [] Other: abdominal wall abscess with positive wound culture Location in the medical record that reflects the above clinical findings: [] Treatment Provided: [] PHYSICIAN'S RESPONSE Based on your medical judgment of the clinical indicators outlined above, are you treating this patient for a known or suspected: [] Sepsis / Septicemia Please specify organism if known [] [] SIRS (Systemic Inflammatory Response Syndrome) [] Severe Sepsis (Sepsis with Associated Organ Dysfunction) [] Fever of Unknown Origin [] Other, please indicate: [] [] If Unable to Determine, please check the box, sign and date. Present On Admission (POA) Indicator: [] Present at the time of admission [] Not present at the time of admission [] Clinically Undetermined In responding to this query, please exercise your independent professional judgment. The fact that a question is asked does not imply that any particular answer is desired or expected. Thank you for your clarification on this documentation. If you have any questions please call:[ ] * Thank you, [ ]Luke Feliciano [facility] #[id number] global risk management director VY
[2017-03-27] MEDS ORDERED: Darbepoetin Alfa 100 mcg/ml Inj SC ONE (10:57)
[2017-03-27] MEDS: FLUVOXAMINE 25 MG PO SCH (12:21)
--- NOTE | 2017-03-27 13:09 | CON ---
DATE: 03/27/2017 REASON FOR CONSULT: Anemia. HISTORY OF PRESENT ILLNESS: The patient is a 56-year-old female with past medical history significant for multiple medical problems including uncontrolled diabetes, COPD, fibromyalgia, hypertension, congestive heart failure, history of renal stones and endometriosis. She also has been anemic for several years. Etiology is multifactorial including iron deficiency as well as anemia of chronic kidney disease. She also has had a bone marrow biopsy in the past, which was benign for any other hematological pathology. She now presents with an abscess and fluid collection of the abdominal wall area. On the left side she is status post I and D and currently on antibiotics. Consult is now called for dropping hemoglobin. She has been getting Aranesp and iron as an outpatient, but has missed few appointments in the last month. Therefore, her hemoglobin has now also subsequently dropped. She has also had a GI workup in the past, which was unrevealing. She denies any active bleeding at this point. PAST MEDICAL HISTORY: As above. Known for diabetes, hypertension, chronic congestive heart failure, history of UTIs, restless leg syndrome, history of pneumonia, known anemia requiring Procrit as well as iron on an ongoing basis. Multiple surgeries in the past including hysterectomy with oophorectomy as well as multiple amputations. She does have also prior multiple history of abscesses. FAMILY HISTORY: Positive for mother dying of MDS. SOCIAL HISTORY: Positive for smoking. Denies any alcohol abuse or drug use. ALLERGIES: KNOWN ALLERGIES TO THEOPHYLLINE. MEDICATIONS: At home include albuterol, allopurinol, alprazolam, Ecotrin, Lipitor, Coreg, Plavix, Lasix, Neurontin, Lopid, Levemir, Humalog, Glucophage, Singulair, Luvox, Protonix, as well as Seroquel. REVIEW OF SYSTEMS: As per the HPI. PHYSICAL EXAMINATION: GENERAL: The patient is a middle-aged female lying in bed in no acute distress. VITAL SIGNS: Reveal a temperature 98.1, pulse of 87, respiratory rate of 20, and a blood pressure 128/77. HEENT: Normocephalic, atraumatic. Eyes; pupils equal, round, reactive to light and accommodation. Extraocular muscles are intact. There is some pallor. No icterus is noted. NECK: Supple with no adenopathy. No JVD. No thyromegaly. LUNGS: Clear to auscultation bilaterally. No rales or rhonchi. CARDIOVASCULAR: S1 and S2 is heard. ABDOMEN: Revealed a large wound in the left lower quadrant, now status post I and D, is covered with dressing. EXTREMITIES: There is 1+ pitting edema. LABORATORY DATA: Today revealed post PRBC transfusion. Hemoglobin 9.7, white count of 10.0, hematocrit is 29, and a platelet count of 226. Coag studies are within normal limits. Chemistry reveal a BUN and creatinine of 62 and 1.6. Ferritin is 507. At this point, all other electrolytes are within normal limits. ASSESSMENT AND PLAN: A middle-aged female with anemia that is multifactorial related to her anemia of chronic kidney disease from longstanding hypertension and diabetes. She also periodically drops her ferritin and has been getting iron as an outpatient. Status post packed red blood cells transfusion. Hemoglobin has improved considerably. Hold off on further transfusions at this point. The patient is to follow up with me as an outpatient to continue her EPO supplements. Thank you for the consult. We will follow. Esther Dang MD
--- NOTE | 2017-03-27 13:37 | PN ---
DATE: 03/27/2017 REASON FOR THE CONSULTATION AND FOLLOWUP: History of angioplasty, diabetes, hypertension, hyperlipidemia, COPD, abscess of the abdominal wall. SUBJECTIVE: The patient denies any chest pain, shortness of breath or any palpitations. OBJECTIVE: GENERAL: Not in apparent distress, lying flat in bed. VITAL SIGNS: As follows: Temperature afebrile, heart rate 87, blood pressure 120/77. HEENT: PERRLA. Extraocular muscles intact. NECK: Supple. No carotid bruit or thyromegaly. CHEST: Clear to auscultation. HEART: S1 and S2, regular. ABDOMEN: Soft. EXTREMITIES: Clubbing and cyanosis negative. LABORATORY DATA: Blood workup as follows: WBC 10, hemoglobin 9.6, hematocrit 29.8, platelet count 226. Chemistry shows sodium 142, potassium 4.0, chloride 108, carbon dioxide 23, anion gap of 6, BUN 60, and creatinine 1.6. IMPRESSION: Acute kidney injury on chronic renal insufficiency, resolving. Creatinine is trending down. Cellulitis and abscess of the abdominal wall, status post incision and drainage. Type 2 diabetes; coronary artery disease, status post stent in the past; hypertension; hyperlipidemia; anemia; history of depression; history of chronic renal insufficiency. RECOMMENDATION: Continue gentle hydration. Continue low salt and continue aspirin and atorvastatin. Follow on the lab. Cautious hydration. We will follow with you. Thank you Marko for providing us the opportunity in taking care of the patient, Ashley Mallory. We will follow with repeat lab in the morning. So far, the blood culture remains negative except wound culture is positive for Staphylococcus aureus. Stephanie Anton MD
--- NOTE | 2017-03-27 18:13 | PN ---
DATE: 03/27/2017 SUBJECTIVE: The patient is in bed, in no acute distress, nontoxic. OBJECTIVE: VITAL SIGNS: On exam, temperature is 98, blood pressure is 120/70, and respiratory rate 16. HEENT: Unremarkable. NECK: Supple. LUNGS: Have decreased breath sounds. HEART: Normal S1, S2. ABDOMEN: Soft, nontender. Wound appears to be improving and is drying. LABORATORY EXAMINATION: Reviewed sensitive Staph. ASSESSMENT AND PLAN: This is a 56-year-old female, who was admitted with a sensitive Staphylococcus aureus, abdominal wall abscess status post incision and drainage in this patient with sepsis with abdominal wall abscess status post incision and drainage postprocedure day #5, growing methicillin-sensitive Staphylococcus aureus, appears to be healing nicely, may be able to switch to p.o. antibiotics and discharge the patient for complete 7-10 days of antibiotics total. Terrance Kent MD
--- NOTE | 2017-03-27 22:49 | OP ---
PROCEDURE DATE: 03/23/2017 LOCATION: Room 571, bed 2. SURGEON: Lyle Leonardo MD PROFESSOR OF COMMUNICATION AND WRITING: David Milligan DO. ANESTHESIA: MAC - Marcaine 0.5 - 18 mL. PREOPERATIVE DIAGNOSES: 1. Abdominal wall abscess. 2. Diabetes mellitus. 3. Hypertensive coronary artery disease. 4. Chronic renal failure. POSTOPERATIVE DIAGNOSES: 1. Abdominal wall abscess. 2. Diabetes mellitus. 3. Hypertensive coronary artery disease. 4. Chronic renal failure. PROCEDURE: Incision and drainage of a large 10-cm abdominal wall abscess. OPERATIVE INDICATION: Patient is a 56-year-old female with multiple skin infections this month, for the past 5 days getting worse, enlarging massively over the past few days, prompting admission and she is brought to the hospital and admitted through the emergency room. Her abdominal wall abscess has become significant and she is presently on aspirin and Plavix, which have been stopped for 12 hours and the patient is now recommended for incision and drainage with field block anesthesia and IV sedation. Risks, benefits, and alternatives with their anticipated outcomes are discussed with the patient and she signs the informed consent with the understanding that she will be knocked out. DESCRIPTION OF PROCEDURE: Patient is brought from the holding area to the operating room. She is identified by her wristband, undergoes timeout procedure and is placed on a table in a supine manner. Light intravenous analgesia and oxygenation monitoring are provided by the anesthesiologist and the abdominal wall is prepped with Betadine and the patient is aseptically draped. Field block infiltration is employed and following good take, infiltration is made in a cruciate manner across the central portion of the abscess, blanching the area for hemostatic effect. The lesion is now excised with a cautery scalpel and hemostasis is contained with electrocoagulating cautery and a cruciate incision made, which will allow the wound to close after it is completely filled with proud flesh and the infection is completed. Multiple loculations are broken up within. The expected large deep abscess did not materialize and once hemostasis is controlled, iodoform gauze is placed into the wound controlling further hemostasis and dry dressing is placed over the same. Patient is awakened and transported to the recovery room in a satisfactory condition. Sponge, instrument, suture count were verified as correct at the end of the procedure. Estimated blood loss during this procedure was less than 20 mL of blood. Lyle Leonardo MD [facility] # [id number]
--- NOTE | 2017-03-28 08:16 | DS ---
HISTORY OF PRESENT ILLNESS: The patient is a 56-year-old, seen and examined. The patient was seen in office on 03/22/2017 with abdominal wall redness. She was having fevers, chills, and hypoglycemia, so she was referred to the ER for I and D and IV antibiotics. The patient received antibiotics and was evaluated by surgeon, had I and D of abdominal wall abscess done and has been draining. The patient has episode of epistaxis and bleeding from the wound. She received one blood transfusion yesterday because she was anemic. On examination today, she is feeling well, eating and tolerating. No fever. No chills. No nausea or vomiting. No diarrhea. PHYSICAL EXAMINATION: VITAL SIGNS: She is afebrile, pulse 87, respirations 20, and blood pressure 128/77. LUNGS: Bilateral fair airflow. No rhonchi or crackles. HEART: S1 and S2 audible. ABDOMEN: Soft. She has dressing at the I and D site and has blood-tinged discharge. NEUROLOGIC: She is awake, alert, oriented, communicative, and ambulatory. LABORATORY DATA: WBC 10, hemoglobin 9.7, hematocrit 29.8, and platelets of 236. Chemistry; sodium 143, potassium 4.3, chloride 109, CO2 of 23, BUN 62, creatinine 1.6, and blood sugar 205. She was growing Staphylococcus aureus, had wound infection, and blood cultures are negative. ASSESSMENT: 1. Abdominal wall cellulitis, abdominal wall abscess, status post incision and drainage. 2. Renal insufficiency, improving. 3. Anemia. 4. Hypertension. 5. Insulin-dependent diabetes. 6. Acute on chronic anemia. PLAN: The patient is being discharged home on Keflex 500 three times a day for 7 more days. She will resume all her medications as prior to admission that includes iron supplementation, Luvox, vitamin E, Seroquel, potassium, Singulair 10 mg daily, she is on insulin Lantus 40 units twice a day, and Humalog 45 units before each meal. She is on Lopid 600 twice a day, Neurontin 600 four times a day, Plavix 75 daily, carvedilol 3.125 twice a day, aspirin 81 daily, and Xanax as needed. So, she will follow up with Dr. Jaramillo as an outpatient and she will follow up with me as outpatient. Her wound will be taken care by herself and visiting . Colt Zhu MD [facility] # [id number]
== END 2017-03-27 15:13 | disposition home health service (06) | DRG 580 ==
LOC: ED 14:53 → ERH 17:02 → 5RSO 18:41
PROVIDERS: ADMIT Internal Medicine; ATTEND Internal Medicine
PROC: 0W9F0ZZ Drainage of Abdominal Wall, Open Approach (ICD-10-PCS; principal; 2017-03-23 13:15)
PROC: 30233N1 Transfusion of Nonautologous Red Blood Cells into Peripheral Vein, Percutaneous Approach (ICD-10-PCS; 2017-03-26)
DX: L02.211 Cutaneous abscess of abdominal wall (principal); N17.9 Acute kidney failure, unspecified; I13.0 Hypertensive heart and chronic kidney disease with heart failure and stage 1 through stage 4 chronic kidney disease, or unspecified chronic kidney disease; N18.4 Chronic kidney disease, stage 4 (severe); D62 Acute posthemorrhagic anemia; E11.22 Type 2 diabetes mellitus with diabetic chronic kidney disease; I50.9 Heart failure, unspecified; E11.319 Type 2 diabetes mellitus with unspecified diabetic retinopathy without macular edema; E11.65 Type 2 diabetes mellitus with hyperglycemia; L03.311 Cellulitis of abdominal wall; D63.1 Anemia in chronic kidney disease; A49.01 Methicillin susceptible Staphylococcus aureus infection, unspecified site; I25.10 Atherosclerotic heart disease of native coronary artery without angina pectoris; E78.5 Hyperlipidemia, unspecified; J44.9 Chronic obstructive pulmonary disease, unspecified; F32.9 Major depressive disorder, single episode, unspecified; N80.9 Endometriosis, unspecified; M79.7 Fibromyalgia; G25.81 Restless legs syndrome; R04.0 Epistaxis; Z95.5 Presence of coronary angioplasty implant and graft; Z79.4 Long term (current) use of insulin; Z79.02 Long term (current) use of antithrombotics/antiplatelets; Z87.01 Personal history of pneumonia (recurrent); Z87.891 Personal history of nicotine dependence; Z87.440 Personal history of urinary (tract) infections; Z87.442 Personal history of urinary calculi

== ENCOUNTER 2017-08-05 21:59 | Observation (INO) | payer MEDICARE ==
[2017-08-05 22:00] VITALS: BMI 29.1
--- NOTE | 2017-08-05 22:32 | ED PDOC ---
Arrival/HPI - General Chief Complaint: Weakness/Neurological Deficit Time Seen by Provider: 08/05/17 22:12 Historian: Patient, Spouse - History of Present Illness Narrative History of Present Illness (Text): you were treated in the ED today for feeling generalized fatigue, dizziness/ lightheadedness with nasal bleeding which has stopped and otherwise without any bleeding currently or dark stool/nausea/vomiting/headache/difficulty breathing/ chest pain/abdomen pain/numbness/tingling/loss of limb function/pain with urination. 08/05/17 22:29 08/05/17 22:31 Past Medical History - Provider Review Nursing Documentation Reviewed: Yes - Travel History Have you recently traveled outside [place] w/in the past 3 mons?: No - Infectious Disease Hx of Infectious Diseases: None - Tetanus Immunization Tetanus Immunization: Unknown - Cardiac Hx Cardiac Disorders: Yes (CAD) Hx Congestive Heart Failure: Yes Hx Hypertension: Yes - Pulmonary Hx Respiratory Disorders: Yes Hx Chronic Obstructive Pulmonary Disease (COPD): Yes Hx Pneumonia: Yes - Neurological Hx Neurological Disorder: Yes Hx Dizziness: Yes Other/Comment: Restless leg syndrome. Fibromyalgia - HEENT Hx HEENT Disorder: Yes (EPISTAXIS) Hx Epistaxis: Yes - Renal Hx Renal Disorder: Yes Hx Kidney Stones: Yes Hx Renal Failure: Yes - Endocrine/Metabolic Hx Endocrine Disorders: Yes Hx Diabetes Mellitus Type 2: Yes - Hematological/Oncological Hx Blood Disorders: Yes Hx Anemia: Yes (BT) - Integumentary Hx Dermatological Disorder: Yes Other/Comment: MULTIPLE CUTANEOUS ABSCESSES WITH MULTIPLE I AND D'S. 03-12-17 LARGE ABSCESS TO RIGHT OF HER LAPAROTOMY SCAR 5 CM IN DM.DEEP BURBUNDY COLORED SKIN.SWOLLEN,MIN. PUS DRAINAGE. BIG TOE DRY SKIN RASH.UNDERSIDE OF TOE HAS CALLOUSED SKIN. - Musculoskeletal/Rheumatological Hx Falls: No - Gastrointestinal Hx Gastrointestinal Disorders: Yes (MULTIPLE EXPLORATOY LAP) - Genitourinary/Gynecological Hx Genitourinary Disorders: Yes (C SECTION X 1,R OOPHORECTOMY,L PARTIAL OOPHORECTOMY.) Hx Incontinence: Yes Hx Urinary Tract Infection: Yes Other/Comment: Endometriosis - Psychiatric Hx Psychophysiologic Disorder: Yes Hx Anxiety: Yes Hx Depression: Yes Hx Emotional Abuse: No Hx Physical Abuse: No Hx Substance Use: No - Surgical History Hx Appendectomy: Yes Hx Cardiac Catheterization: Yes Hx Coronary Stent: Yes Other/Comment: Abd lap W R oophorectomy & partial L oophrectomy. c section, I & D cellulitis both legs, bilateral axilla, - Anesthesia Hx Anesthesia: Yes Hx Anesthesia Reactions: No Hx Malignant Hyperthermia: No - Suicidal Assessment Feels Threatened In Home Enviroment: No Family/Social History - Physician Review Nursing Documentation Reviewed: Yes Family/Social History: No Known Family HX Smoking Status: Never Smoked Hx Alcohol Use: No Hx Substance Use: No Hx Substance Use Treatment: No Allergies/Home Meds Allergies/Adverse Reactions: Allergies theophylline Allergy (Verified 03/22/17 19:48) NAUSEA Home Medications: Home Meds Medication Instructions Recorded Confirmed Atorvastatin Calcium [Lipitor] 20 mg PO DAILY 07/08/12 08/06/17 Carvedilol 3.125 mg PO BID 07/08/12 08/06/17 Lactobacillus Acidophilus 109 mg PO DAILY 07/08/12 08/06/17 [Acidophilus] fluvoxaMINE [Luvox] 25 mg PO BID 06/26/14 08/06/17 ALPRAZolam [Xanax] 0.25 tab PO BID 09/16/15 08/06/17 Clopidogrel [Plavix] 75 mg PO DAILY 10/30/16 08/06/17 Albuterol HFA [Ventolin HFA 90 1 puff IH PRN PRN 11/29/16 08/06/17 mcg/actuation (8 g)] Allopurinol [Zyloprim] 300 mg PO DAILY 11/29/16 08/06/17 Aspirin [Ecotrin] 81 mg PO DAILY 11/29/16 08/06/17 Calcium/Vitamin D [Oyster Shell 1 tab PO DAILY 11/29/16 08/06/17 Calcium/Vitamin D 500 mg-200 IU] Furosemide [Lasix] 40 mg PO DAILY 11/29/16 08/06/17 Gabapentin [Neurontin] 600 mg PO QID 11/29/16 08/06/17 Gemfibrozil [Lopid] 600 mg PO BID 11/29/16 08/06/17 Insulin Aspart, Recombinant 45 units SQ TID 11/29/16 08/06/17 [Novolog] Insulin Glargine, Recombina 45 units SQ BID 11/29/16 08/06/17 [Lantus] Iron Sucrose Complex [Venofer] 0 mg PO Q30D 11/29/16 08/06/17 Losartan [Cozaar] 25 mg PO DAILY 11/29/16 08/06/17 Montelukast [Singulair] 10 mg PO DAILY 11/29/16 08/06/17 Multivit-Minerals/Folic Acid 1 tab PO DAILY 11/29/16 08/06/17 [Adult Multi Gummies] Pantoprazole [Protonix EC Tab] 20 mg PO DAILY 11/29/16 08/06/17 Potassium Chloride [Klor-Con M20] 20 meq PO DAILY 11/29/16 08/06/17 QUEtiapine [Seroquel XR] 50 tab PO BID 11/29/16 08/06/17 Vitamin E 400 iu PO DAILY 11/29/16 08/06/17 Ferrous Sulfate [Feosol] 325 mg PO DAILY 03/22/17 08/06/17 Iron Ps Cmplx/Vit B12/FA [Ferrex 1 each PO DAILY 03/22/17 08/06/17 150 Forte Capsule] Review of Systems - Review of Systems Constitutional: Fatigue Eyes: Normal ENT: Normal Respiratory: Normal Cardiovascular: Normal Gastrointestinal: Normal Genitourinary Female: Normal Musculoskeletal: Normal Skin: Normal Neurological: Dizziness Endocrine: Normal Hemo/Lymphatic: Normal Psychiatric: Normal Physical Exam Vital Signs Reviewed: Yes Vital Signs Temp Pulse Resp BP Pulse Ox 08/06/17 00:11 91 H 18 103/48 L 100 08/05/17 22:14 97.7 F 81 18 92/54 L 99 Temperature: Afebrile Blood Pressure: Normal Pulse: Regular Respiratory Rate: Normal Appearance: Positive for: Well-Appearing, Non-Toxic, Comfortable Pain Distress: None Mental Status: Positive for: Alert and Oriented X 3 - Systems Exam Head: Present: Atraumatic, Normocephalic Pupils: Present: PERRL Extroacular Muscles: Present: EOMI Conjunctiva: Present: Normal Ears: Present: Normal Mouth: Present: Moist Mucous Membranes Pharnyx: Present: Normal Nose (External): Present: Atraumatic Nose (Internal): Present: Normal Inspection Neck: Present: Normal Range of Motion Respiratory/Chest: Present: Clear to Auscultation, Good Air Exchange Cardiovascular: Present: Regular Rate and Rhythm Abdomen: No: Tenderness, Distention, Normal Bowel Sounds, Peritoneal Signs, Rebound, Guarding, McBurney's Point Tender, Rovsing's Sign Present, Hernias, Feeding Tubes, Ostomy Tubes, Mass/Organomegaly, Scars, Other Back: Present: Normal Inspection Upper Extremity: Present: Normal Inspection Lower Extremity: Present: Normal Inspection Neurological: Present: GCS=15, CN II-XII Intact, Speech Normal, Motor Func Grossly Intact Skin: Present: Warm, Normal Color Psychiatric: Present: Alert, Oriented x 3, Normal Insight, Normal Concentration Medical Decision Making ED Course and Treatment: you were treated in the ED today for hx of COPD, Diabetes, Hypertension, Cholesterol, and today feeling generalized fatigue, dizziness/lightheadedness with nasal bleeding which has stopped and otherwise without any bleeding currently or dark stool/nausea/vomiting/headache/difficulty breathing/chest pain /abdomen pain/numbness/tingling/loss of limb function/pain with urination. You were otherwise breathing easily, pink moist lips, smiling and talking with your , good strength/sensation, alert/oriented, walking easily, clear lungs, no abdomen tenderness, no bleeding in nose and they are dry , no fever temp 97.7 , stable heart rate 81, stable breathing rate 18, excellent oxygen level 99% room air, stable blood pressure 92/54 which we recommend repeat in 2-3 days primary care office to determine further treatment, you have blood tests mild infection count 13, stable blood level hemoglobin 8.2 mildly low from prior 9.7 (03/2017)/platelets 276, stable chemistry, bun elevated 64, creatinine elevated 2.9 from prior 1.6 (03/27/2017), anion gap 21 elevated, glucose elevated 280, liver AST elevated 57, heart blood test negative, urine test pending, radiology ct head no acute, chest xray no acute ECG normal sinus rhythm, intraveous fluids , observation done in the ED with mild improvement, but patient stated still feeling fatigued and not hydrated adequately to urinate and thus discussed with Dr. Zhu who stated if pt after hydration feels improved can be discharged home but patient after 2 L of IVF stated still feeling fatigued and wants to stay for further hydration/care. Dr. Zhu stated if still symptomatic can admit and consult nephrology Dr. Frank and hematology Dr. Dang. Chest X-ray no acute. CT head FINDINGS: Brain: There is mild diffuse cerebral atrophy present, consistent with this patient's age. No hemorrhage. No significant white matter disease. Ventricles: The ventricular system demonstrates mild diffuse compensatory enlargement. Bones/joints: Unremarkable. No acute fracture. Soft tissues: Unremarkable. Sinuses: There is diffuse mucoperiosteal thickening in the maxillary sinuses, consistent with chronic sinusitis. Hyperdensity in the maxillary sinuses could be secondary to fungal infection. Mastoid air cells: Unremarkable as visualized. No mastoid effusion. IMPRESSION: No evidence of an acute intracranial abnormality. Chronic sinusitis. 08/05/17 23:56 08/06/17 02:03 08/06/17 02:05 Reassessment Condition: Re-examined, Improved - Lab Interpretations Lab Results: 08/05/17 22:57 08/05/17 22:57 Lab Results 08/05/17 22:57: PT 14.1 H, INR 1.23 H, APTT 32.5 08/05/17 22:57: Sodium 137, Potassium 4.8, Chloride 101, Carbon Dioxide 19 L, Anion Gap 21 H, BUN 64 H, Creatinine 2.9 H, Est GFR ( Amer) 20, Est GFR ( Non-Af Amer) 17, Random Glucose 280 H, Calcium 9.7, Magnesium 1.9, Total Bilirubin 0.3, AST 57 H D, ALT 46, Alkaline Phosphatase 114, Lactate Dehydrogenase 427, Total Creatine Kinase 332 H, CK-MB (CK-2) 1.8, CK-MB (CK-2) % Cancelled, Troponin I < 0.01, Total Protein 7.4, Albumin 4.2, Globulin 3.2, Albumin/Globulin Ratio 1.3 08/05/17 22:57: WBC 13.1 H D, RBC 2.84 L, Hgb 8.2 L, Hct 25.4 L, MCV 89.4, MCH 28.9, MCHC 32.3, RDW 15.6 H, Plt Count 276, MPV 11.4 H, Gran % 64.8, Lymph % ( Auto) 23.1, Mccone % (Auto) 5.9, Eos % (Auto) 5.7 H, Baso % (Auto) 0.5, Gran # 8.46 H, Lymph # (Auto) 3.0, Mccone # (Auto) 0.8 H, Eos # (Auto) 0.7, Baso # (Auto ) 0.06 I have reviewed the lab results: Yes - RAD Interpretation Radiology Orders: 08/05/17 22:28 HEAD W/O CONTRAST [CT] Stat 08/05/17 23:10 CHEST ONE VIEW [RAD] Stat Soft Top Installer: Radiologist (see mdm) - EKG Interpretation Interpreted by ED Physician: Yes (NSR) Type: 12 lead EKG - Medication Orders Current Medication Orders: Discontinued Medications Sodium Chloride (Sodium Chloride 0.9%) 1,000 mls @ 999 mls/hr IV .Q1H1M STA Stop: 08/05/17 23:33 Last Admin: 08/05/17 22:50 Dose: 999 mls/hr eMAR Start Stop Document 08/05/17 22:50 CNR (Rec: 08/05/17 22:50 CNR [id number]) Intravenous Solution Start Date 08/05/17 Start Time 22:50 Sodium Chloride (Sodium Chloride 0.9%) 1,000 mls @ 999 mls/hr IV .Q1H1M STA Stop: 08/06/17 01:18 Last Admin: 08/06/17 00:21 Dose: 999 mls/hr eMAR Start Stop Document 08/06/17 00:21 CNR (Rec: 08/06/17 00:21 CNR [id number]) Intravenous Solution Start Date 08/06/17 Start Time 00:21 NIHSS Stroke Scale 3 - Date/Time Evaluation Performed Date Performed: 08/05/17 When Was NIHSS Performed: Baseline - How Severe is the Stroke Level of Consciousness: 0=Alert LOC to Questions: 0=Both comments correct LOC to commands: 0=Obeys both correctly Best Gaze: 0=Normal Visual: 0=No visual loss Facial: 0=Normal Motor Arm - Left: 0=No drift Motor Arm - Right: 0=No drift Motor Leg - Left: 0=No drift Motor Leg - Right: 0=No drift Limb Ataxia: 0=Absent Sensory: 0=Normal Best Language: 0=No aphasia Dysarthia: 0=Normal articulation Extinction & Inattention (Neglect): 0=Normal, no object Score: 0 Disposition/Present on Arrival - Present on Arrival Any Indicators Present on Arrival: No History of DVT/PE: No History of Uncontrolled Diabetes: No Urinary Catheter: No History of Decub. Ulcer: No History Surgical Site Infection Following: None - Disposition Have Diagnosis and Disposition been Completed?: Yes Diagnosis: Renal failure, Dehydration, Dizziness Disposition: HOSPITALIZED Disposition Time: 02:05 Patient Plan: Admission Condition: STABLE Referrals: Colt Zhu MD [Primary Care Provider] - Follow up with primary Forms: [employer] ([employer])
[2017-08-05] MEDS ORDERED: Sodium Chloride 0.9% 1,000 ML IV STA (22:33)
[2017-08-05 23:06] LABS: BASO # 0.06 K/mm3 (0.0-2.0); BASO % 0.5 % (0.0-3.0); EOS # 0.7 (0.0-0.7); EOS % 5.7 % (1.5-5.0); GRAN # 8.46 (1.4-6.5); GRAN % 64.8 % (50.0-68.0); HEMOGLOBIN 8.2 g/dL (12.0-16.0); LYMPH % 23.1 % (22.0-35.0); MEAN CELL VOLUME 89.4 fl (80.0-105.0); MEAN CORPUSCULAR HEMOGLOBIN 28.9 pg (25.0-35.0); MEAN CORPUSCULAR HGB CONC 32.3 g/dl (31.0-37.0); MEAN PLATELET VOLUME 11.4 fl (7.0-11.0); MONO # 0.8 (0.1-0.6); MONO % 5.9 % (1.0-6.0); RBC 2.84 10^6/uL (3.5-6.1); RED CELL DISTRIBUTION WIDTH 15.6 % (11.5-14.5); WHITE BLOOD COUNT 13.1 10^3/ul (4.5-11.0)
[2017-08-05 23:13] LABS: ALB/GLOB RATIO 1.3 (1.1-1.8); ALBUMIN 4.2 g/dL (3.0-4.8); ALT/SGPT 46 U/L (7-56); AST/SGOT 57 U/L (14-36); BLOOD UREA NITROGEN 64 mg/dL (7-21); CALCIUM 9.7 mg/dL (8.4-10.5); GFR AFRICAN-AMERICAN 20; GFR NON-AFRICAN AMERICAN 17
[2017-08-05 23:21] LABS: INR 1.23 (0.93-1.08); PARTIAL THROMBOPLASTIN TIME 32.5 Seconds (25.1-36.5); PROTHROMBIN TIME 14.1 SECONDS (9.4-12.5)
[2017-08-05 23:24] LABS: TROPONIN I < 0.01 ng/mL
[2017-08-05 23:35] LABS: CK-MB 1.8 ng/mL (0.0-3.6)
--- NOTE | 2017-08-05 23:46 | CT ---
EXAM: CT Head Without Intravenous Contrast CLINICAL HISTORY: 57 years old, female; Signs and symptoms; Dizziness; Additional info: 57yof, dizziness TECHNIQUE: Axial computed tomography images of the head/brain without intravenous contrast. All CT scans at this facility use one or more dose reduction techniques, viz.: automated exposure control; ma/kV adjustment per patient size (including targeted exams where dose is matched to indication; i.e. head); or iterative reconstruction technique. Coronal and sagittal reformatted images were created and reviewed. COMPARISON: No relevant prior studies available. FINDINGS: Brain: There is mild diffuse cerebral atrophy present, consistent with this patient's age. No hemorrhage. No significant white matter disease. Ventricles: The ventricular system demonstrates mild diffuse compensatory enlargement. Bones/joints: Unremarkable. No acute fracture. Soft tissues: Unremarkable. Sinuses: There is diffuse mucoperiosteal thickening in the maxillary sinuses, consistent with chronic sinusitis. Hyperdensity in the maxillary sinuses could be secondary to fungal infection. Mastoid air cells: Unremarkable as visualized. No mastoid effusion. IMPRESSION: No evidence of an acute intracranial abnormality. Chronic sinusitis.
[2017-08-06] MEDS ORDERED: Sodium Chloride 0.9% 1,000 ML IV STA (00:18)
[2017-08-06] MEDS ORDERED: Sodium Chloride 0.9% 1,000 ML IV SCH (06:00)
[2017-08-06 06:56] VITALS: RESP 20
--- NOTE | 2017-08-06 08:22 | RAD ---
PROCEDURE: CHEST RADIOGRAPH, 1 VIEW HISTORY: 57yoF fatigue COMPARISON: 11/29/2016. FINDINGS: LUNGS: The lungs are well inflated and clear. PLEURA: No pneumothorax or pleural fluid seen. CARDIOVASCULAR: Normal. OSSEOUS STRUCTURES: No significant abnormalities. VISUALIZED UPPER ABDOMEN: Normal. OTHER FINDINGS: None. IMPRESSION: No active pulmonary disease.
--- NOTE | 2017-08-06 09:18 | CARD ---
APPROVED REPORT EKG Measurement Heart [id number] <Conclusion> Normal sinus rhythm Prolonged QT, new
[2017-08-06] MEDS ORDERED: INSULIN GLARGINE RECOMBINA SQ SCH (11:30)
[2017-08-06] MEDS ORDERED: FLUVOXAMINE 25 MG PO SCH (11:30)
[2017-08-06] MEDS ORDERED: Insulin Lispro 1 UNITS/0.01 ML SC SCH (12:00)
[2017-08-06 12:05] LABS: BASO # 0.04 K/mm3 (0.0-2.0); BASO % 0.3 % (0.0-3.0); EOS # 0.7 (0.0-0.7); EOS % 6.5 % (1.5-5.0); GRAN # 7.69 (1.4-6.5); GRAN % 67.2 % (50.0-68.0); HEMOGLOBIN 7.4 g/dL (12.0-16.0); LYMPH # 2.3 (1.2-3.4); LYMPH % 20.1 % (22.0-35.0); MEAN CELL VOLUME 88.7 fl (80.0-105.0); MEAN CORPUSCULAR HEMOGLOBIN 28.8 pg (25.0-35.0); MEAN CORPUSCULAR HGB CONC 32.5 g/dl (31.0-37.0); MEAN PLATELET VOLUME 11.5 fl (7.0-11.0); MONO # 0.7 (0.1-0.6); MONO % 5.9 % (1.0-6.0); RBC 2.57 10^6/uL (3.5-6.1); RED CELL DISTRIBUTION WIDTH 15.7 % (11.5-14.5); WHITE BLOOD COUNT 11.4 10^3/ul (4.5-11.0)
[2017-08-06 12:07] LABS: ALB/GLOB RATIO 1.4 (1.1-1.8); ALBUMIN 3.8 g/dL (3.0-4.8); CALCIUM 8.9 mg/dL (8.4-10.5)
[2017-08-06 12:10] LABS: URINE BILIRUBIN NEGATIVE (NEGATIVE); URINE BLOOD SMALL (NEGATIVE); URINE GLUCOSE (UA) NEGATIVE (NEGATIVE); URINE LEUKOCYTE ESTERASE SMALL Leu/uL (NEGATIVE); URINE PROTEIN 100 mg/dL (<30 mg/dL); URINE UROBILINOGEN 0.2 E.U./dL (<1 E.U./dL)
[2017-08-06 12:12] LABS: URINE APPEARANCE CLEAR (CLEAR); URINE COLOR YELLOW (YELLOW)
[2017-08-06] MEDS: Pantoprazole 20 mg EC Tab PO SCH (12:31)
[2017-08-06] MEDS: Insulin Reg-LOW-Coverage SC SCH ×3 (12:33→22:12)
[2017-08-06] MEDS: Potassium Chloride 20 mEq ER Tab PO SCH (12:36)
[2017-08-06 12:37] LABS: URINE BACTERIA MANY (NEG)
[2017-08-06 12:38] LABS: URINE AMORPHOUS SEDIMENT FEW; URINE COARSE GRANULAR CAST TRACE /hpf (0-2)
[2017-08-06] MEDS ORDERED: INSULIN ASPART RECOMBINANT SQ SCH (14:00)
[2017-08-06] MEDS ORDERED: Darbepoetin Alfa 60 mcg/ml Inj SC ONE (15:11)
[2017-08-06] MEDS ORDERED: Darbepoetin Alfa 100 mcg/ml Inj SC ONE (15:30)
[2017-08-06] MEDS: Insulin Lispro 1 UNITS/0.01 ML SC SCH (17:06)
[2017-08-06] MEDS: FLUVOXAMINE 25 MG PO SCH (17:06)
[2017-08-06] MEDS: QUEtiapine 50 mg XR Tab PO SCH (17:22)
--- NOTE | 2017-08-06 21:15 | CON ---
DATE: 08/06/2017 REASON FOR CONSULTATION: Severe anemia, acute kidney injury superimposed on chronic kidney disease stage III/IV. HISTORY OF PRESENT ILLNESS: A 57-year-old young woman was brought to the emergency room late last night because of fatigue, dizziness, lightheadedness. Weakness. Nosebleed at home. The patient also reports decreased p.o. intake for 2 days. She is not sure if she took her medications for the last 2 days. The patient had a CT of her head in the emergency room which showed no evidence of acute intracranial abnormality. It did show some chronic sinusitis. She was found to be somewhat hypotensive at presentation. Her blood pressure was 92/54, heart rate 81. The patient was admitted for further workup for altered mental status, fatigue, weakness, acute kidney injury. PAST MEDICAL AND SURGICAL HISTORY: NIDDM, hypertension, hyperlipidemia, chronic kidney disease stage III, COPD, recurrent UTI, CHF, chronic anemia. FAMILY HISTORY: MDS in mother. SOCIAL HISTORY: Ex-smoker, no alcohol use, no IV drug abuse. ALLERGIES: THEOPHYLLINE. MEDICATIONS AT HOME: Protonix, potassium 20 mEq, Seroquel, Luvox, Xanax, aspirin, Lipitor, Coreg 3.125 b.i.d., Plavix, Feosol, Lasix 40 daily, Neurontin 600 four times a day, gemfibrozil 600 b.i.d., losartan 25, Singulair. REVIEW OF SYSTEMS: All systems are reviewed, pertinent positives as mentioned in history of presenting illness, rest unremarkable. PHYSICAL EXAMINATION: GENERAL: Middle-aged lady, sitting in bed, in moderate emotional distress. VITAL SIGNS: Blood pressure 112/68, heart rate 80, respiratory rate 20, temperature 98.4. HEENT: Normocephalic, atraumatic. NECK: Supple, no JVD. LUNGS: Bilateral equal air entry, bilateral equal expansion, no rales. CARDIAC: S1 and S2, regular rate and rhythm, no murmur, no rub. ABDOMEN: Obese, distended, soft, nontender, bowel sounds present. EXTREMITIES: No lower extremity edema. INTAKE AND OUTPUT: Not charted. LABORATORY DATA: WBC 11, hemoglobin 7.4, hematocrit 23, platelets 220. Sodium 137, potassium 4.5, chloride 105, CO2 of 18, BUN 60, creatinine 2.8, glucose 247, calcium 8.9, AST 34, ALT is 43, albumin 3.8. Urinalysis, yellow, clear, pH 6.0, specific 1.020, protein 100, blood small, leukocyte esterase small. CURRENT MEDICATIONS: Coreg 3.125 b.i.d., Cozaar 25, Ecotrin, Luvox, insulin; potassium 20 mEq daily, not given today; insulin, Lipitor 20, gabapentin 600 four times a day, Protonix, Seroquel, normal saline at 100, Tylenol, Xanax, Zyloprim. ASSESSMENT: 1. Altered mental status, disorientation, ? secondary to Neurontin. 2. Acute kidney injury superimposed on chronic kidney disease, stage III. 3. Chronic anemia, with acute anemia superimposed? 4. Non-insulin dependent diabetes mellitus. 5. Congestive heart failure. PLAN: 1. Change Neurontin to 300 mg daily. 2. Check hemoglobin A1c. 3. Hold metformin. 4. Start sodium bicarbonate to correct metabolic acidosis. 5. Monitor urine output closely. 6. Monitor daily labs. 7. Push p.o. fluids. 8. Discontinue IV fluids as soon as possible. Elva Frank MD
[2017-08-06] MEDS ORDERED: Insulin Detemir 100 units/ml Vial (Levemir) SC SCH ×2 (22:00)
[2017-08-06] MEDS ORDERED: INCRUSE INH SCH (22:45)
[2017-08-06] MEDS ORDERED: INCRUSE ELLIPTA 62.5 MCG INH SCH ×2 (22:50→23:00)
--- NOTE | 2017-08-06 23:42 | HP ---
HISTORY OF PRESENT ILLNESS: Patient is 57 years old, came to emergency room because of feeling very weak. She states she passed out at home. She was very foggy, unable to focus, did not take her medicines for a day or two, and she felt as if she is going to pass out, but never lost consciousness; however, she cannot register certain events that happened. Denies any nausea or vomiting. Does complain of decreased appetite. She states things do not taste well. No history of fever, chills. No cough, no congestion. PAST MEDICAL HISTORY: Significant for, 1. Insulin-dependent diabetes. 2. Hypertension. 3. Chronic kidney disease. 4. Anemia. 5. History of COPD. 6. History of hyperlipidemia. ALLERGIES: PATIENT IS ALLERGIC TO THEOPHYLLINE. SOCIAL HISTORY: She is , lives with her . She used to be very heavy smoker in the past, but quit lately and socially drinks only. MEDICATION AT HOME: She is on long list of medications including multivitamin, Singulair 10 mg daily, iron supplementation, she takes Lantus 40 units twice a day, and NovoLog 45 units before each meals. She is on gemfibrozil 500 twice a day, gabapentin 600 four times a day, iron sulfate, Plavix 75 daily, Keflex 500 every 6 hours, carvedilol 3.125 daily, vitamin D, atorvastatin 20 mg daily, aspirin 81 daily, allopurinol 300 daily, Xanax 0.25 twice a day, Luvox 25 twice a day, Seroquel 50 mg twice a day, potassium supplementation, and Protonix. REVIEW OF SYSTEMS: Significant for feeling weak, tired with no energy and no appetite. PHYSICAL EXAMINATION: GENERAL: She is awake, alert, oriented, communicative. VITAL SIGNS: She is afebrile, pulse 80, respiration 20, blood pressure 112/68. LUNGS: Bilateral good airflow. No rhonchi or crackles. HEART: S1, S2 audible. ABDOMEN: Soft, nontender, obese. No hepatosplenomegaly. NEUROLOGICAL: She is awake and alert, able to communicate. EXTREMITIES: Bilateral legs, no edema. LABORATORY DATA: On admission, her WBC is 13, followup is 11.4; hemoglobin initial was 8.2, followup is 7.2; and platelet of 220. Chemistry: Sodium 137, potassium 4.5, chloride 105, CO2 of 18, BUN 60, and creatinine 2.8. Blood sugar of 247. Urinalysis shows leukocyte. X-ray of chest is unremarkable. EKG, normal sinus rhythm, prolonged QT. ASSESSMENT: 1. Generalized weakness. 2. Symptomatic anemia. 3. History of hypertension. 4. Worsening renal insufficiency. 5. Insulin-dependent diabetes. PLAN: We will transfuse one pack RBC. Continue her on IV fluids. Monitor her blood sugar. Out of bed to chair. We will reevaluate patient in the a.m. Colt Zhu MD
[2017-08-07] MEDS ORDERED: Insulin Detemir 100 units/ml Vial (Levemir) SC SCH (07:00)
[2017-08-07 07:08] LABS: HEMOGLOBIN 8.5 g/dL (12.0-16.0); MEAN CELL VOLUME 88.9 fl (80.0-105.0); MEAN CORPUSCULAR HEMOGLOBIN 28.7 pg (25.0-35.0); MEAN CORPUSCULAR HGB CONC 32.3 g/dl (31.0-37.0); MEAN PLATELET VOLUME 12.1 fl (7.0-11.0); RBC 2.96 10^6/uL (3.5-6.1); RED CELL DISTRIBUTION WIDTH 15.8 % (11.5-14.5); WHITE BLOOD COUNT 11.1 10^3/ul (4.5-11.0)
[2017-08-07 07:29] LABS: IRON 17 ug/dL (45-180)
[2017-08-07 07:38] LABS: % IRON SATURATION 8 % (20-55); TOTAL IRON BINDING CAPACITY 222 ug/dL (265-497)
[2017-08-07] MEDS: Insulin Lispro 1 UNITS/0.01 ML SC SCH ×2 (07:39→11:51)
[2017-08-07] MEDS: Insulin Reg-LOW-Coverage SC SCH ×2 (08:29→11:51)
[2017-08-07] MEDS ORDERED: Albuterol-Ipratrop 3 mg / 0.5 (3 ml) UD IH PRN (09:41)
[2017-08-07] MEDS: FLUVOXAMINE 25 MG PO SCH (09:45)
[2017-08-07] MEDS: Potassium Chloride 20 mEq ER Tab PO SCH (09:45)
[2017-08-07] MEDS: Pantoprazole 20 mg EC Tab PO SCH (09:46)
[2017-08-07] MEDS: QUEtiapine 50 mg XR Tab PO SCH (09:46)
[2017-08-07] MEDS ORDERED: Albuterol-Ipratrop 3 mg / 0.5 (3 ml) UD IH SCH (14:00)
[2017-08-07 14:52] VITALS: BP 146/79; PULSE 95; TEMP 98.6; O2SAT 98
--- NOTE | 2017-08-08 03:41 | CON ---
DATE: 08/07/2017 HISTORY OF PRESENT ILLNESS: Patient is a 57-year-old female, well known to me with known history of anemia secondary to chronic kidney disease as well as iron deficiency in the past. She has had a bone marrow examination done to rule out multiple myeloma as well as MDS. No evidence of the above noted. She now presents to the emergency room post epistaxis for several days and hemoglobin dropped to 7.7. Her last checkup in the office was about a week ago and her hemoglobin was over 11. She has also been very fatigued and not eating, also was noted to have dehydration upon admission, which has now resolved. Patient is likely to be discharged today. PAST MEDICAL HISTORY: Significant for insulin-dependent diabetes, hypertension, chronic kidney disease, history of COPD, and hyperlipidemia. ALLERGIES: KNOWN ALLERGIES TO THEOPHYLLINE. SOCIAL HISTORY: Positive for smoking in the past and social drinking. She is , lives with her . MEDICATIONS AT HOME: Include multivitamin, Singulair, iron supplements, Lantus, NovoLog, gemfibrozil, gabapentin, iron sulphate, Plavix, carvedilol, atorvastatin, allopurinol, Xanax, Luvox, Seroquel as well as potassium and Protonix. FAMILY HISTORY: Noncontributory. REVIEW OF SYSTEMS: As per the HPI. PHYSICAL EXAMINATION: VITAL SIGNS: Reveal temperature of 98.6, pulse of 95, respirations of 20 and a blood pressure of 146/79. GENERAL: Patient is a middle-aged female, lying in bed, in no acute distress. HEENT: Head and neck: Normocephalic, atraumatic. Eyes: Pupils equal, round, and reactive to light and accommodation. Extraocular muscles intact. There is some pallor. No icterus is noted. NECK: Supple with no adenopathy, no JVD, no thyromegaly. LUNGS: Decreased breath sounds bilaterally at the bases. CARDIOVASCULAR: S1, S2 heard. ABDOMEN: Positive bowel sounds, soft, nontender, nondistended. No organomegaly is palpated. EXTREMITIES: No edema, clubbing, or cyanosis. LABORATORY DATA: Her labs reveal a white count of 11.1, hemoglobin at 8.5, hematocrit 26.3, and a platelet count of 237. Coags studies are within normal limit. Chemistries are within normal limits. BUN and creatine are 50 and 2.1. Ferritin is 238. ASSESSMENT AND PLAN: A middle-age female with anemia of chronic kidney disease, recently hemoglobin noted to be at 11 in the office, now presents with week-long episode of epistaxis and drop in hemoglobin and hematocrit. She needs to be worked up for von Willebrand Disease which will be done as an outpatient. She is status post one unit of PRBC as well as . We will follow up in the outpatient department. Thank you for the consult. We will follow. Esther Dang MD
--- NOTE | 2017-08-08 11:18 | DS ---
HISTORY OF PRESENT ILLNESS: Patient is a 57-year-old, seen and examined who came in yesterday because of generalized weakness and she almost passed out. She was unable to focus. Initial blood work shows hemoglobin of 8.4 but followup 7.5. Patient received blood transfusion. PHYSICAL EXAMINATION GENERAL: Today, she seems to doing a lot better. Awake, alert, oriented, communicative. VITAL SIGNS: She is afebrile. Pulse 97, respirations 20, blood pressure 177/94. LUNGS: Bilateral good airflow. No rhonchi or crackles. HEART: S1, S2 audible. ABDOMEN: Soft, nontender. No rebound, no guarding. NEUROLOGIC: Patient is awake and alert, able to communicate. LABORATORY DATA: WBC is 11.1, hemoglobin 8.5, hematocrit 26.3, and platelets 237. Chemistry: Sodium 142, potassium 4.2, chloride 110, CO2 20, BUN 50, creatinine 2.1. Blood sugar of 327. Iron 17, TIBC 222, saturation 8%. ASSESSMENT 1. Near syncope and dizziness secondary to dehydration and [id number] renal failure. 2. Symptomatic anemia. 3. Hypertension. 4. Chronic obstructive pulmonary disease. 5. Chronic kidney disease. PLAN: We will discontinue the patient's Moore catheter and wait until she voids and she will follow up with Dr. Frank and Dr. Dang as outpatient. She was advised to follow up in my office also to follow up her H and H. Colt Zhu MD
== END 2017-08-07 16:30 | disposition home or self-care (01) ==
LOC: ED 21:59 → ERH 08-06 02:06 → 5RNO 08-06 06:05
PROVIDERS: ADMIT Internal Medicine; ATTEND Internal Medicine
DX: E86.0 Dehydration (principal); N17.9 Acute kidney failure, unspecified; I13.0 Hypertensive heart and chronic kidney disease with heart failure and stage 1 through stage 4 chronic kidney disease, or unspecified chronic kidney disease; N18.3 Chronic kidney disease, stage 3 (moderate); I50.9 Heart failure, unspecified; E11.22 Type 2 diabetes mellitus with diabetic chronic kidney disease; E87.2 Acidosis; D63.1 Anemia in chronic kidney disease; J44.9 Chronic obstructive pulmonary disease, unspecified; E78.5 Hyperlipidemia, unspecified; R53.1 Weakness; Z87.891 Personal history of nicotine dependence; Z79.4 Long term (current) use of insulin; Z79.82 Long term (current) use of aspirin; Z87.440 Personal history of urinary (tract) infections
CPT/HCPCS: 36415; 36430; 70450; 71045; 80048; 80053; 81001; 82550; 82553; 82728; 82948; 83036; 83540; 83550; 83615; 83735; 84484; 85025; 85027; 85610; 85730; 86850; 86900; 86920; 87086; 93005; 94640; 94760; 97116; 97161; 97530; 99285; G0378; G8978; G8980; J0881; J7040; P9016

== ENCOUNTER 2017-11-22 10:59 | Inpatient (IN) | payer MEDICARE, OTHER ==
--- NOTE | 2017-11-22 11:39 | ED PDOC ---
Arrival/HPI - General Chief Complaint: Abnormal Skin Integrity Time Seen by Provider: 11/22/17 11:23 Historian: Patient - History of Present Illness Narrative History of Present Illness (Text): 11/22/17 11:36 57yo female with past medical history of hypertension, COPD, CAD, renal failure , and Diabetes who present with bleeding and infected foot wound. States she noticed the blood this morning and then started having purulent discharge from her left 2nd toe. She reports history of neuropathy of the foot and have loss sensation on her foot secondary to Diabetes. she sees Dr. Bills. She denies fever, chills, nausea,chest pain, shortness of breath, abdominal pain, dizziness , any other complaint. Past Medical History - Provider Review Nursing Documentation Reviewed: Yes - Infectious Disease Hx of Infectious Diseases: None - Tetanus Immunization Tetanus Immunization: Unknown - Cardiac Hx Cardiac Disorders: Yes Hx Hypertension: Yes - Pulmonary Hx Respiratory Disorders: Yes Hx Chronic Obstructive Pulmonary Disease (COPD): Yes - Neurological Hx Neurological Disorder: Yes Hx Dizziness: Yes - HEENT Hx HEENT Disorder: Yes (EPISTAXIS) Hx Epistaxis: Yes - Renal Hx Renal Disorder: Yes Hx Kidney Stones: Yes Hx Renal Failure: Yes Other/Comment: Diabetic neuropathy - Endocrine/Metabolic Hx Endocrine Disorders: Yes Hx Diabetes Mellitus Type 2: Yes - Hematological/Oncological Hx Blood Disorders: Yes Hx Anemia: Yes - Integumentary Hx Dermatological Disorder: Yes Hx Cellulitis: Yes - Musculoskeletal/Rheumatological Hx Musculoskeletal Disorders: Yes Hx Arthritis: Yes Hx Falls: Yes Hx Gout: Yes - Gastrointestinal Hx Gastrointestinal Disorders: Yes Other/Comment: hernia - Genitourinary/Gynecological Hx Genitourinary Disorders: Yes Hx Incontinence: Yes Hx Urinary Tract Infection: Yes Other/Comment: Endometriosis - Psychiatric Hx Psychophysiologic Disorder: Yes Hx Anxiety: Yes Hx Depression: Yes Hx Substance Use: No - Surgical History Hx Appendectomy: Yes Hx Cardiac Catheterization: Yes Hx Coronary Stent: Yes - Anesthesia Hx Anesthesia: Yes Hx Anesthesia Reactions: No Hx Malignant Hyperthermia: No - Suicidal Assessment Feels Threatened In Home Enviroment: No Family/Social History - Physician Review Nursing Documentation Reviewed: Yes Family/Social History: Unknown Family HX Smoking Status: Former Smoker Hx Alcohol Use: No Hx Substance Use: No Hx Substance Use Treatment: No Allergies/Home Meds Allergies/Adverse Reactions: Allergies theophylline Allergy (Verified 11/22/17 11:03) NAUSEA Home Medications: Home Meds Medication Instructions Recorded Confirmed Atorvastatin Calcium [Lipitor] 20 mg PO DAILY 07/08/12 11/22/17 Carvedilol 3.125 mg PO BID 07/08/12 11/22/17 Lactobacillus Acidophilus 109 mg PO DAILY 07/08/12 11/22/17 [Acidophilus] fluvoxaMINE [Luvox] 25 mg PO BID 06/26/14 11/22/17 Clopidogrel [Plavix] 75 mg PO DAILY 10/30/16 11/22/17 Albuterol HFA [Ventolin HFA 90 2 puff IH PRN PRN 11/29/16 11/22/17 mcg/actuation (8 g)] Allopurinol [Zyloprim] 300 mg PO DAILY 11/29/16 11/22/17 Aspirin [Ecotrin] 81 mg PO DAILY 11/29/16 11/22/17 Gemfibrozil [Lopid] 600 mg PO DAILY 11/29/16 11/22/17 Insulin Aspart, Recombinant 45 units SQ TID 11/29/16 11/22/17 [Novolog] Iron Sucrose Complex [Venofer] 0 mg PO Q30D 11/29/16 11/22/17 Losartan [Cozaar] 25 mg PO DAILY 11/29/16 11/22/17 Montelukast [Singulair] 10 mg PO DAILY 11/29/16 11/22/17 Multivit-Minerals/Folic Acid 1 tab PO DAILY 11/29/16 11/22/17 [Adult Multi Gummies] Pantoprazole [Protonix EC Tab] 20 mg PO DAILY 11/29/16 11/22/17 QUEtiapine [Seroquel XR] 100 mg PO HS 11/29/16 11/22/17 Vitamin E 400 iu PO DAILY 11/29/16 11/22/17 Iron Ps Cmplx/Vit B12/FA [Ferrex 1 each PO DAILY 03/22/17 11/22/17 150 Forte Capsule] Insulin Detemir [Levemir] 45 units SQ 0700 08/07/17 11/22/17 Insulin Detemir [Levemir] 45 units SQ HS 08/07/17 11/22/17 Umeclidinium [place] [Incruse 1 puff IH HS 08/07/17 11/22/17 Ellipta] Calcium Polycarbophil [Konsyl 1 tab PO BID 11/22/17 11/22/17 Fiber] Nortriptyline 25 mg PO DAILY 11/22/17 11/22/17 Nortriptyline 50 mg PO HS 11/22/17 11/22/17 tiZANidine [Zanaflex] 2 mg PO Q6 11/22/17 11/22/17 Review of Systems - Physician Review All systems were reviewed & negative as marked: Yes - Review of Systems Constitutional: Normal Eyes: Normal ENT: Normal Respiratory: Normal Cardiovascular: Normal Gastrointestinal: Normal Genitourinary Female: Normal Musculoskeletal: Arthralgias (B/L foot bleeding and infected wound) Skin: Normal Neurological: Normal Endocrine: Normal Hemo/Lymphatic: Normal Psychiatric: Normal Physical Exam Vital Signs Reviewed: Yes Vital Signs Temp Pulse Resp BP Pulse Ox 11/22/17 13:56 90 18 126/80 99 11/22/17 12:15 98.8 F 90 17 128/78 99 11/22/17 11:11 98.9 F 103 H 16 95/62 L 96 Temperature: Afebrile Blood Pressure: Normal Pulse: Regular Respiratory Rate: Normal Appearance: Positive for: Well-Appearing, Non-Toxic, Comfortable Pain Distress: None Mental Status: Positive for: Alert and Oriented X 3 - Systems Exam Head: Present: Atraumatic, Normocephalic Pupils: Present: PERRL Extroacular Muscles: Present: EOMI Conjunctiva: Present: Normal Mouth: Present: Moist Mucous Membranes Neck: Present: Normal Range of Motion Respiratory/Chest: Present: Clear to Auscultation, Good Air Exchange. No: Respiratory Distress, Accessory Muscle Use Cardiovascular: Present: Regular Rate and Rhythm, Normal S1, S2. No: Murmurs Abdomen: No: Tenderness, Distention, Peritoneal Signs Back: Present: Normal Inspection Upper Extremity: Present: Normal Inspection. No: Cyanosis, Edema Lower Extremity: Present: Normal Inspection, Swelling (LEft 2nd toe), Erythema ( On left 2nd toe with streak noted going up to the ankle), Other (Draining wound noted on second distal lateral toe). No: Edema, Tenderness Neurological: Present: GCS=15, CN II-XII Intact, Speech Normal Skin: Present: Warm, Dry, Normal Color. No: Rashes Psychiatric: Present: Alert, Oriented x 3, Normal Insight, Normal Concentration Medical Decision Making ED Course and Treatment: 11/22/17 20:11 PT presented to Emergency department for stated history. She was hemodynamically stable. She is however diabetic and have cellulitis with erythematous streak on her left foot. Lab was reviewed and leukocytosis was noted. She was hypderglycemic and Insulin was ordered. Chest X-ray Nad Vancomycin 1g and Zosyn was ordered Blood culture and wound culture was ordered Case was DW Dr. Zhu and she accepted pt for admission. Dr. Bills consult. - Lab Interpretations Microbiology Results: Microbiology Results 11/22/17 11:45 Toe Gram Stain - Final Lab Results: 11/22/17 11:45 11/22/17 11:45 Lab Results 11/22/17 11:45: Sodium 140, Chloride 106, Potassium 5.2 H, Carbon Dioxide 21, Anion Gap 19, BUN 66 H, Creatinine 2.4 H, Est GFR ( Amer) 25, Est GFR ( Non-Af Amer) 21, Random Glucose 321 H*, Calcium 10.0, Total Bilirubin 0.4, AST 25, ALT 21, Alkaline Phosphatase 121, Total Protein 7.9, Albumin 4.2, Globulin 3.7, Albumin/Globulin Ratio 1.1 11/22/17 11:45: pO2 54, VBG pH 7.27 L, VBG pCO2 47.0, VBG HCO3 21.6, VBG Total CO2 23.0, VBG O2 Sat (Calc) 87.1 H, VBG Base Excess -5.4 L, VBG Potassium 5.0, Sodium 137.0, Chloride 107.0, Glucose 330 H, Lactate 1.2, FiO2 21.0, Venous Blood Potassium 5.0 11/22/17 11:45: WBC 14.5 H D, RBC 3.58, Hgb 9.9 L, Hct 31.3 L, MCV 87.4, MCH 27.7, MCHC 31.6, RDW 17.5 H, Plt Count 284, MPV 11.3 H, Gran % 77.8 H, Lymph % ( Auto) 10.8 L, [place] % (Auto) 6.7 H, Eos % (Auto) 4.4, Baso % (Auto) 0.3, Gran # 11.28 H, Lymph # (Auto) 1.6, [place] # (Auto) 1.0 H, Eos # (Auto) 0.6, Baso # (Auto ) 0.05 - RAD Interpretation Radiology Orders: 11/22/17 11:33 CHEST PORTABLE [RAD] Stat 11/22/17 12:14 FOOT LEFT 2ND DIGIT (TOE) [RAD] Stat - Medication Orders Current Medication Orders: Acetaminophen (Tylenol 325mg Tab) 650 mg PO Q6H PRN PRN Reason: Pain, moderate (4-7) Allopurinol (Zyloprim) 300 mg PO DAILY [facility] Last Admin: 11/22/17 18:48 Dose: Aspirin (Ecotrin) 81 mg PO DAILY [facility] Last Admin: 11/22/17 18:13 Dose: 81 mg Atorvastatin Calcium (Lipitor) 20 mg PO DAILY [facility] Last Admin: 11/22/17 18:13 Dose: 20 mg Carvedilol (Coreg) 3.125 mg PO BID [facility] Last Admin: 11/22/17 18:12 Dose: 3.125 mg [facility] Pulse and Blood Pressure Document 11/22/17 18:12 (Rec: 11/22/17 18:12 [id number]) Blood Pressure Blood Pressure (100/60-150/90) 119/74 Clopidogrel Bisulfate (Plavix) 75 mg PO DAILY [facility] Last Admin: 11/22/17 18:13 Dose: 75 mg Gemfibrozil (Lopid) 600 mg PO DAILY [facility] Last Admin: 11/22/17 18:13 Dose: 600 mg Piperacillin Sod/Tazobactam Sod (Zosyn 2.25 Gm In 0.9% 100 Ml) 2.25 gm in 100 mls @ 100 mls/hr IVPB Q6 [facility] PRN Reason: Protocol Stop: 11/23/17 06:59 Insulin Detemir (Levemir) 45 unit SC 0700 [facility] Insulin Detemir (Levemir) 45 unit SC HS [facility] Insulin Human Lispro (Humalog Med) 0 units SC ACHS [facility] PRN Reason: Protocol Lactobacillus Acidophilus (Bacid Acidophilus) 1 cap PO DAILY [facility] Losartan Potassium (Cozaar) 25 mg PO DAILY [facility] Last Admin: 11/22/17 18:45 Dose: Montelukast Sodium (Singulair) 10 mg PO DAILY [facility] Last Admin: 11/22/17 18:13 Dose: 10 mg Non-Formulary Medication (Fluvoxamine [Luvox]) 25 mg PO BID [facility] Nortriptyline HCl (Pamelor) 25 mg PO DAILY [facility] Nortriptyline HCl (Pamelor) 50 mg PO HS [facility] Pantoprazole Sodium (Protonix Ec Tab) 40 mg PO ACB [facility] Quetiapine Fumarate (Seroquel Xr) 100 mg PO HS [facility] PRN Reason: Protocol Tizanidine HCl (Zanaflex) 2 mg PO Q8 [facility] Discontinued Medications Vancomycin HCl (Vancomycin 1gm) 1 gm in 250 mls @ 167 mls/hr IVPB STAT [facility] PRN Reason: Protocol Stop: 11/22/17 14:06 Last Admin: 11/22/17 13:51 Dose: 167 mls/hr eMAR Start Stop Document 11/22/17 13:51 OCS (Rec: 11/22/17 13:[address] [facility]) Intravenous Solution Start Date 11/22/17 Start Time 13:51 End Date 11/22/17 End time 15:21 Total Infusion Time 90 Piperacillin Sod/Tazobactam Sod (Zosyn 3.375 In Ns 100ml) 100 mls @ 200 mls/hr IVPB STAT STA PRN Reason: Protocol Stop: 11/22/17 13:06 Last Admin: 11/22/17 12:52 Dose: 200 mls/hr eMAR Start Stop Document 11/22/17 12:52 OCS (Rec: 11/22/17 12:[address] [facility]) Intravenous Solution Start Date 11/22/17 Start Time 12:52 End Date 11/22/17 End time 13:22 Total Infusion Time 30 Insulin Human Regular (Humulin R) 6 units IVP ONCE STA Stop: 11/22/17 12:39 Last Admin: 11/22/17 12:53 Dose: 6 units MAR Blood Glucose Document 11/22/17 12:53 OCS (Rec: 11/22/17 12:[address] [facility] Blood Glucose Finger Stick Blood Glucose (70-120) 309 IVP Administration Document 11/22/17 12:53 OCS (Rec: 11/22/17 12:[address] [facility] Charges for Administration # of IVP Administrations 1 Sodium Polystyrene Sulfonate (Kayexalate Susp) 15 gm PO STAT STA Stop: 11/22/17 14:07 Last Admin: 11/22/17 14:15 Dose: 15 gm Disposition/Present on Arrival - Present on Arrival Any Indicators Present on Arrival: No History of DVT/PE: No History of Uncontrolled Diabetes: Yes Urinary Catheter: No History of Decub. Ulcer: No History Surgical Site Infection Following: None - Disposition Have Diagnosis and Disposition been Completed?: Yes Diagnosis: Cellulitis, Leukocytosis, Hyperglycemia, Renal failure Disposition: HOSPITALIZED Disposition Time: 13:30 Patient Plan: Admission Patient Problems: Current Active Problems Problem Status Onset Cellulitis Acute Hyperglycemia Acute Leukocytosis Acute Renal failure Acute Condition: STABLE
--- NOTE | 2017-11-22 12:02 | RAD ---
Date of service: 11/22/2017 HISTORY: admission COMPARISON: 08/05/2017 FINDINGS: LUNGS: No active pulmonary disease. PLEURA: No significant pleural effusion identified, no pneumothorax apparent. CARDIOVASCULAR: Normal. OSSEOUS STRUCTURES: No significant abnormalities. VISUALIZED UPPER ABDOMEN: Normal. OTHER FINDINGS: None. IMPRESSION: No active disease.
[2017-11-22 12:03] LABS: VENOUS BLOOD GAS BASE EXCESS -5.4 mmol/L (0.0-2.0); VENOUS BLOOD GAS PO2 54 mm/Hg (30-55); VENOUS BLOOD PH 7.27 (7.32-7.43)
[2017-11-22 12:06] LABS: BASO # 0.05 K/mm3 (0.0-2.0); BASO % 0.3 % (0.0-3.0); EOS # 0.6 (0.0-0.7); EOS % 4.4 % (1.5-5.0); GRAN # 11.28 (1.4-6.5); GRAN % 77.8 % (50.0-68.0); HEMOGLOBIN 9.9 g/dL (12.0-16.0); LYMPH # 1.6 (1.2-3.4); LYMPH % 10.8 % (22.0-35.0); MEAN CELL VOLUME 87.4 fl (80.0-105.0); MEAN CORPUSCULAR HEMOGLOBIN 27.7 pg (25.0-35.0); MEAN CORPUSCULAR HGB CONC 31.6 g/dl (31.0-37.0); MEAN PLATELET VOLUME 11.3 fl (7.0-11.0); MONO % 6.7 % (1.0-6.0); RBC 3.58 10^6/uL (3.5-6.1); RED CELL DISTRIBUTION WIDTH 17.5 % (11.5-14.5); WHITE BLOOD COUNT 14.5 10^3/ul (4.5-11.0)
[2017-11-22 12:24] LABS: ALB/GLOB RATIO 1.1 (1.1-1.8); ALBUMIN 4.2 g/dL (3.0-4.8)
[2017-11-22] MEDS ORDERED: Vancomycin 1gm in NS 250ml 1 GM/250 ML BAG IVPB STA (12:37)
[2017-11-22] MEDS ORDERED: Piperacillin/Tazobact 3.375 gm 100 ML IVPB STA (12:37)
[2017-11-22] MEDS ORDERED: Insulin Regular 1 UNITS/0.01 ML ML IVP STA (12:38)
--- NOTE | 2017-11-22 13:35 | RAD ---
Date of service: 11/22/2017 PROCEDURE: X-ray left foot attention 2nd digit HISTORY: toe infection r/o osteo COMPARISON: 09/28/2017 TECHNIQUE: Three views left foot. Please note that evaluation of the distal phalanges of the 2nd digit is limited due to flexion of the toes. FINDINGS: No evidence of fracture. No osseous erosion or periosteal reaction. No lytic or blastic osseous lesion. IMPRESSION: No plain radiographic evidence of osteomyelitis.
[2017-11-22] MEDS ORDERED: Sod Polystyrene Sulf 15 gm/60 ml Susp PO STA (14:06)
--- NOTE | 2017-11-22 17:41 | CARD ---
APPROVED REPORT Date of service: 11/22/2017 EKG Measurement Heart [id number] <Conclusion> Normal sinus rhythm Possible Left atrial enlargement Incomplete left bundle branch block Borderline ECG
[2017-11-22 19:52] VITALS: RESP 20; BMI 27.6
[2017-11-22] MEDS ORDERED: Pneumococcal 23-Valent Vaccine IM ONE (19:52)
[2017-11-22] MEDS: QUEtiapine 50 mg XR Tab PO SCH (21:53)
[2017-11-22] MEDS: Insulin Detemir 100 units/ml Vial (Levemir) SC SCH (21:54)
[2017-11-22] MEDS: Piperacillin/Tazobact 2.25gm 2.25 GM/100 ML BAG IVPB SCH (23:44)
[2017-11-23] MEDS: Insulin Lispro (humaLOG) MEDIUM Coverage SC SCH ×5 (01:17→21:25)
--- NOTE | 2017-11-23 04:43 | HP ---
Copied To: Colt Zhu MD Attending MD: Colt Zhu MD HISTORY OF PRESENT ILLNESS: The patient is a 57-year-old known to me for multiple previous admissions came to emergency room because of having blood-tinged purulent discharge from the left second toe. The patient states she might have bumped it, but did not feel much because she has neuropathy. It was swollen, but today it got worse and started to have discharge, so she got concerned and came to the emergency room for evaluation. PAST MEDICAL HISTORY: She has significant past medical history for: 1. Moderate obesity. 2. Hypertension. 3. COPD. 4. Coronary artery disease. 5. Insulin-dependent diabetes. 6. Diabetic neuropathy. 7. Chronic kidney disease. 8. Recent admission for abdominal wall abscess, I&D in 03/2017. ALLERGIES: SHE IS ALLERGIC TO THEOPHYLLINE. MEDICATIONS AT HOME: She is on Zanaflex, Luvox,vitamin A, Incruse Ellipta, Seroquel, Protonix, nortriptyline, Singulair, losartan, iron supplementation, Levemir, Lopid, Plavix, carvedilol, atorvastatin, aspirin, and allopurinol. SOCIAL HISTORY: She is , lives with her and has grown up son. PHYSICAL EXAMINATION: GENERAL: On examination, she is awake, alert, oriented, communicative. VITAL SIGNS: She is afebrile, pulse 98, respirations 19, blood pressure 119/74. LUNGS: Bilateral fair airflow. No rhonchi or crackle. HEART: S1 and S2 audible. ABDOMEN: Soft, nontender. No rebound. No guarding. EXTREMITIES: She has left forefoot wrapped in the dressing. LABORATORY DATA: WBC 14.5, hemoglobin 9.9, hematocrit 31.3, platelets of 284. Chemistry: Sodium 140, potassium 5.2, chloride 106, CO2 of 21, BUN 66, creatinine 2.4, blood sugar of 113, random is 321. X-ray of the left foot is negative for osteomyelitis. Her x-ray of chest is negative. ASSESSMENT: 1. Left second toe cellulitis. 2. Diabetic neuropathy. 3. Hypertension. 4. Hyperlipidemia. 5. Insulin-dependent diabetes. 6. Chronic anemia. 7. Chronic back pain. PLAN: We will start the patient on Zosyn. Local wound care doctor will be consulted and Dr. Kent will also be consulted and also consult Dr. Frank to monitor her kidney function. We will monitor her blood sugar. Follow up patient in the a.m. Colt Zhu MD
[2017-11-23] MEDS: Piperacillin/Tazobact 2.25gm 2.25 GM/100 ML BAG IVPB SCH (05:58)
[2017-11-23 07:08] LABS: BASO # 0.06 K/mm3 (0.0-2.0); BASO % 0.6 % (0.0-3.0); EOS # 0.7 (0.0-0.7); EOS % 6.2 % (1.5-5.0); GRAN # 7.61 (1.4-6.5); GRAN % 73.1 % (50.0-68.0); HEMOGLOBIN 9.4 g/dL (12.0-16.0); LYMPH # 1.5 (1.2-3.4); LYMPH % 13.9 % (22.0-35.0); MEAN CELL VOLUME 87.2 fl (80.0-105.0); MEAN CORPUSCULAR HEMOGLOBIN 27.4 pg (25.0-35.0); MEAN CORPUSCULAR HGB CONC 31.4 g/dl (31.0-37.0); MEAN PLATELET VOLUME 10.7 fl (7.0-11.0); MONO # 0.7 (0.1-0.6); MONO % 6.2 % (1.0-6.0); RBC 3.43 10^6/uL (3.5-6.1); RED CELL DISTRIBUTION WIDTH 17.6 % (11.5-14.5); WHITE BLOOD COUNT 10.4 10^3/ul (4.5-11.0)
[2017-11-23 07:16] LABS: ALB/GLOB RATIO 1.1 (1.1-1.8); CALCIUM 9.6 mg/dL (8.4-10.5)
[2017-11-23] MEDS: Pantoprazole 40 mg EC Tab PO SCH (07:50)
[2017-11-23] MEDS: Insulin Detemir 100 units/ml Vial (Levemir) SC SCH ×2 (07:55→22:12)
[2017-11-23] MEDS: Lactobacillus Acidophilus 500 MU Cap PO SCH (10:42)
[2017-11-23] MEDS: FLUVOXAMINE 25 MG PO SCH ×2 (10:48→17:24)
--- NOTE | 2017-11-23 14:26 | CP.PCM.CON ---
<Adelso Oswald - Last Filed: 11/23/17 17:40> History of Present Illness - History of Present Illness History of Present Illness: Podiatry Consult note for Dr. Little 57F with PMH hypertension, COPD, CAD, renal failure, and Diabetes seen for b/l foot wounds. Patient states that she has been in the process and moving so she has been on her feet more than normal. She also states that she suffers from neuropathy and believes that the wounds have been present for about two days. She is AAO x 3 and NAD, resting comfortably in bed. Denies any further pedal complaints at this time. Denies any recent N/V/F/C/CP/SOB/D/posterior calf pain when squeezed. Review of Systems - Review of Systems All systems: reviewed and no additional remarkable complaints except Review of Systems: as per HPI Past Patient History - Infectious Disease Hx of Infectious Diseases: None - Tetanus Immunizations Tetanus Immunization: Unknown - Past Medical History & Family History Past Medical History?: Yes - Past Social History Smoking Status: Former Smoker - CARDIAC Hx Cardiac Disorders: Yes Hx Hypertension: Yes - PULMONARY Hx Respiratory Disorders: Yes Hx Chronic Obstructive Pulmonary Disease (COPD): Yes - NEUROLOGICAL Hx Neurological Disorder: Yes Hx Dizziness: Yes - HEENT Hx HEENT Problems: Yes (EPISTAXIS) Hx Epistaxis: Yes - RENAL Hx Chronic Kidney Disease: Yes Hx Kidney Stones: Yes Hx Renal Failure: Yes Other/Comment: Diabetic neuropathy - ENDOCRINE/METABOLIC Hx Endocrine Disorders: Yes Hx Diabetes Mellitus Type 2: Yes - HEMATOLOGICAL/ONCOLOGICAL Hx Blood Disorders: Yes Hx Anemia: Yes - INTEGUMENTARY Hx Dermatological Problems: Yes Hx Cellulitis: Yes - MUSCULOSKELETAL/RHEUMATOLOGICAL Hx Musculoskeletal Disorders: Yes Hx Arthritis: Yes Hx Falls: Yes Hx Gout: Yes - GASTROINTESTINAL Hx Gastrointestinal Disorders: Yes Other/Comment: hernia - GENITOURINARY/GYNECOLOGICAL Hx Genitourinary Disorders: Yes Hx Incontinence: Yes Hx Urinary Tract Infection: Yes Other/Comment: Endometriosis - PSYCHIATRIC Hx Psychophysiologic Disorder: Yes Hx Anxiety: Yes Hx Depression: Yes Hx Substance Use: No - SURGICAL HISTORY Hx Appendectomy: Yes Hx Cardiac Catheterization: Yes Hx Coronary Stent: Yes - ANESTHESIA Hx Anesthesia: Yes Hx Anesthesia Reactions: No Hx Malignant Hyperthermia: No Meds Allergies/Adverse Reactions: Allergies Allergy/AdvReac Type Severity Reaction Status Date / Time theophylline Allergy NAUSEA Verified 11/22/17 11:03 - Medications Medications: Current Medications Acetaminophen (Tylenol 325mg Tab) 650 mg PO Q6H PRN PRN Reason: Pain, moderate (4-7) Allopurinol (Zyloprim) 300 mg PO DAILY [facility] Last Admin: 11/23/17 10:50 Dose: 300 mg Aspirin (Ecotrin) 81 mg PO DAILY [facility] Last Admin: 11/23/17 10:48 Dose: 81 mg Atorvastatin Calcium (Lipitor) 20 mg PO DAILY [facility] Last Admin: 11/23/17 10:48 Dose: 20 mg Carvedilol (Coreg) 3.125 mg PO BID [facility] Last Admin: 11/23/17 10:47 Dose: 3.125 mg Clopidogrel Bisulfate (Plavix) 75 mg PO DAILY [facility] Last Admin: 11/23/17 10:49 Dose: 75 mg Gemfibrozil (Lopid) 600 mg PO DAILY [facility] Last Admin: 11/23/17 10:49 Dose: 600 mg Ceftaroline Fosamil 300 mg/ (Sodium Chloride) 100 mls @ 100 mls/hr IVPB Q12 [facility] PRN Reason: Protocol Stop: 11/30/17 13:01 Insulin Detemir (Levemir) 45 unit SC 0700 [facility] Last Admin: 11/23/17 07:55 Dose: 45 units Insulin Detemir (Levemir) 45 unit SC HS [facility] Last Admin: 11/22/17 21:54 Dose: 45 unit Insulin Human Lispro (Humalog Med) 0 units SC ACHS [facility] PRN Reason: Protocol Last Admin: 11/23/17 11:51 Dose: 5 units Lactobacillus Acidophilus (Bacid Acidophilus) 1 cap PO DAILY [facility] Last Admin: 11/23/17 10:42 Dose: 1 cap Losartan Potassium (Cozaar) 25 mg PO DAILY [facility] Last Admin: 11/23/17 10:47 Dose: 25 mg Montelukast Sodium (Singulair) 10 mg PO DAILY [facility] Last Admin: 11/23/17 10:50 Dose: 10 mg Non-Formulary Medication (Fluvoxamine [Luvox]) 25 mg PO BID [facility] Last Admin: 11/23/17 10:48 Dose: Not Given Nortriptyline HCl (Pamelor) 25 mg PO DAILY [facility] Last Admin: 11/23/17 10:49 Dose: 25 mg Nortriptyline HCl (Pamelor) 50 mg PO HS [facility] Last Admin: 11/22/17 21:52 Dose: 50 mg Pantoprazole Sodium (Protonix Ec Tab) 40 mg PO ACB [facility] Last Admin: 11/23/17 07:50 Dose: 40 mg Quetiapine Fumarate (Seroquel Xr) 100 mg PO HS [facility] PRN Reason: Protocol Last Admin: 11/22/17 21:53 Dose: 100 mg Tizanidine HCl (Zanaflex) 2 mg PO Q8 [facility] Last Admin: 11/23/17 13:20 Dose: 2 mg Physical Exam - Constitutional Appears: Well, Non-toxic, No Acute Distress - Extremities Exam Additional comments: LE focused exam: Vasc: DP/PT pulses faintly palpable 1/4 b/l. Skin temperature warm to warm from proximal to distal. CFT < 3 seconds to all digits b/l. Moderate edema noted to left second digit Neuro: Epicritic and protective sensation grossly absent b/l Derm: Right foot with roughly 3 cm x 3 cm bullae at level of plantar first MTPJ. No erythema, streaking, or other signs of infection noted. Left second digit with 0.5 cm x 0.5 cm x 0.1 cm ulceration noted medially. No erythema, minimal serous drainage, no malodor, no other clinical signs of infection. No tracking, tunneling or undermining. No probe to bone MSK: Pes cavus foot type noted b/l. Hammertoe deformities noted to all lesser digits - Neurological Exam Neurological exam: Alert, Oriented x3 - Psychiatric Exam Psychiatric exam: Normal Affect, Normal Mood Results - Vital Signs Recent Vital Signs: Last Vital Signs Temp 98.1 F 11/23/17 08:03 Pulse 90 11/23/17 10:47 Resp 20 11/23/17 08:03 BP 136/81 11/23/17 10:47 Pulse Ox 94 L 11/23/17 08:03 - Labs Result Diagrams: 11/23/17 06:00 11/23/17 06:00 Labs: Laboratory Results - last 24 hr 11/22/17 11/22/17 11/23/17 17:20 21:37 06:00 WBC 10.4 D RBC 3.43 L Hgb 9.4 L Hct 29.9 L MCV 87.2 MCH 27.4 MCHC 31.4 RDW 17.6 H Plt Count 241 MPV 10.7 Gran % 73.1 H Lymph % (Auto) 13.9 L [place] % (Auto) 6.2 H Eos % (Auto) 6.2 H Baso % (Auto) 0.6 Gran # 7.61 H Lymph # (Auto) 1.5 [place] # (Auto) 0.7 H Eos # (Auto) 0.7 Baso # (Auto) 0.06 Sodium Potassium Chloride Carbon Dioxide Anion Gap BUN Creatinine Est GFR ( Amer) Est GFR (Non-Af Amer) POC Glucose (mg/dL) 113 H 232 H Random Glucose Calcium Total Bilirubin AST ALT Alkaline Phosphatase Total Protein Albumin Globulin Albumin/Globulin Ratio Procalcitonin 11/23/17 11/23/17 11/23/17 06:00 06:00 07:21 WBC RBC Hgb Hct MCV MCH MCHC RDW Plt Count MPV Gran % Lymph % (Auto) [place] % (Auto) Eos % (Auto) Baso % (Auto) Gran # Lymph # (Auto) [place] # (Auto) Eos # (Auto) Baso # (Auto) Sodium 141 Potassium 4.7 Chloride 108 H Carbon Dioxide 21 Anion Gap 17 BUN 59 H Creatinine 2.2 H Est GFR ( Amer) 28 Est GFR (Non-Af Amer) 23 POC Glucose (mg/dL) 214 H Random Glucose 234 H Calcium 9.6 Total Bilirubin 0.4 AST 17 ALT 33 Alkaline Phosphatase 102 Total Protein 7.6 Albumin 4.0 Globulin 3.7 Albumin/Globulin Ratio 1.1 Procalcitonin 0.10 L 11/23/17 11:07 WBC RBC Hgb Hct MCV MCH MCHC RDW Plt Count MPV Gran % Lymph % (Auto) [place] % (Auto) Eos % (Auto) Baso % (Auto) Gran # Lymph # (Auto) [place] # (Auto) Eos # (Auto) Baso # (Auto) Sodium Potassium Chloride Carbon Dioxide Anion Gap BUN Creatinine Est GFR ( Amer) Est GFR (Non-Af Amer) POC Glucose (mg/dL) 292 H Random Glucose Calcium Total Bilirubin AST ALT Alkaline Phosphatase Total Protein Albumin Globulin Albumin/Globulin Ratio Procalcitonin Assessment & Plan - Assessment and Plan (Free Text) Assessment: 57F seen for b/l foot wounds Plan: Patient seen and evaluated with Dr. Little Afebrile, absent leukocytosis Wound cx toe: SA Continue abx per ID L Foot XR: No OM F/u MRI R foot blister deroofed without incident using #15 blade revealing clinically uninfected superficial ulceration Left second digit sharply debrided at bedside using #15 blade without incident. Minimal bleeding appreciated, no underlying purulence Both wounds flushed with copious amounts of saline and dressed with xeroform, DSD No plan for surgical intervention at this time Podiatry will continue to follow while patient in house - Date & Time Date: 11/23/17 Time: 17:43 <Rodríguez Little - Last Filed: 11/23/17 18:10> Meds - Medications Medications: Current Medications Acetaminophen (Tylenol 325mg Tab) 650 mg PO Q6H PRN PRN Reason: Pain, moderate (4-7) Allopurinol (Zyloprim) 300 mg PO DAILY [facility] Last Admin: 11/23/17 10:50 Dose: 300 mg Aspirin (Ecotrin) 81 mg PO DAILY [facility] Last Admin: 11/23/17 10:48 Dose: 81 mg Atorvastatin Calcium (Lipitor) 20 mg PO DAILY [facility] Last Admin: 11/23/17 10:48 Dose: 20 mg Carvedilol (Coreg) 3.125 mg PO BID [facility] Last Admin: 11/23/17 17:23 Dose: 3.125 mg Clopidogrel Bisulfate (Plavix) 75 mg PO DAILY [facility] Last Admin: 11/23/17 10:49 Dose: 75 mg Gemfibrozil (Lopid) 600 mg PO DAILY [facility] Last Admin: 11/23/17 10:49 Dose: 600 mg Ceftaroline Fosamil 300 mg/ (Sodium Chloride) 100 mls @ 100 mls/hr IVPB Q12 [facility] PRN Reason: Protocol Stop: 11/30/17 13:01 Last Admin: 11/23/17 13:24 Dose: 100 mls/hr Insulin Detemir (Levemir) 45 unit SC 0700 [facility] Last Admin: 11/23/17 07:55 Dose: 45 units Insulin Detemir (Levemir) 45 unit SC HS [facility] Last Admin: 11/22/17 21:54 Dose: 45 unit Insulin Human Lispro (Humalog Med) 0 units SC ACHS [facility] PRN Reason: Protocol Last Admin: 11/23/17 16:45 Dose: Not Given Lactobacillus Acidophilus (Bacid Acidophilus) 1 cap PO DAILY [facility] Last Admin: 11/23/17 10:42 Dose: 1 cap Levalbuterol HCl (Xopenex) 1.25 mg IH 0330,1130,1930 [facility] Losartan Potassium (Cozaar) 25 mg PO DAILY [facility] Last Admin: 11/23/17 10:47 Dose: 25 mg Montelukast Sodium (Singulair) 10 mg PO DAILY [facility] Last Admin: 11/23/17 10:50 Dose: 10 mg Non-Formulary Medication (Fluvoxamine [Luvox]) 25 mg PO BID [facility] Last Admin: 11/23/17 17:24 Dose: Not Given Nortriptyline HCl (Pamelor) 25 mg PO DAILY [facility] Last Admin: 11/23/17 10:49 Dose: 25 mg Nortriptyline HCl (Pamelor) 50 mg PO [facility] Last Admin: 11/22/17 21:52 Dose: 50 mg Pantoprazole Sodium (Protonix Ec Tab) 40 mg PO ACB [facility] Last Admin: 11/23/17 07:50 Dose: 40 mg Quetiapine Fumarate (Seroquel Xr) 100 mg PO [facility] PRN Reason: Protocol Last Admin: 11/22/17 21:53 Dose: 100 mg Tizanidine HCl (Zanaflex) 2 mg PO Q8 [facility] Last Admin: 11/23/17 13:20 Dose: 2 mg Results - Vital Signs Recent Vital Signs: Last Vital Signs Temp 98.1 F 11/23/17 08:03 Pulse 90 11/23/17 10:47 Resp 20 11/23/17 08:03 BP 123/75 11/23/17 17:23 Pulse Ox 94 L 11/23/17 08:03 - Labs Result Diagrams: 11/23/17 06:00 11/23/17 06:00 Labs: Laboratory Results - last 24 hr 11/22/17 11/23/17 11/23/17 21:37 06:00 06:00 WBC 10.4 D RBC 3.43 L Hgb 9.4 L Hct 29.9 L MCV 87.2 MCH 27.4 MCHC 31.4 RDW 17.6 H Plt Count 241 MPV 10.7 Gran % 73.1 H Lymph % (Auto) 13.9 L [place] % (Auto) 6.2 H Eos % (Auto) 6.2 H Baso % (Auto) 0.6 Gran # 7.61 H Lymph # (Auto) 1.5 [place] # (Auto) 0.7 H Eos # (Auto) 0.7 Baso # (Auto) 0.06 Sodium 141 Potassium 4.7 Chloride 108 H Carbon Dioxide 21 Anion Gap 17 BUN 59 H Creatinine 2.2 H Est GFR ( Amer) 28 Est GFR (Non-Af Amer) 23 POC Glucose (mg/dL) 232 H Random Glucose 234 H Calcium 9.6 Total Bilirubin 0.4 AST 17 ALT 33 Alkaline Phosphatase 102 Total Protein 7.6 Albumin 4.0 Globulin 3.7 Albumin/Globulin Ratio 1.1 Procalcitonin 11/23/17 11/23/17 11/23/17 06:00 07:21 11:07 WBC RBC Hgb Hct MCV MCH MCHC RDW Plt Count MPV Gran % Lymph % (Auto) [place] % (Auto) Eos % (Auto) Baso % (Auto) Gran # Lymph # (Auto) [place] # (Auto) Eos # (Auto) Baso # (Auto) Sodium Potassium Chloride Carbon Dioxide Anion Gap BUN Creatinine Est GFR ( Amer) Est GFR (Non-Af Amer) POC Glucose (mg/dL) 214 H 292 H Random Glucose Calcium Total Bilirubin AST ALT Alkaline Phosphatase Total Protein Albumin Globulin Albumin/Globulin Ratio Procalcitonin 0.10 L 11/23/17 15:50 WBC RBC Hgb Hct MCV MCH MCHC RDW Plt Count MPV Gran % Lymph % (Auto) [place] % (Auto) Eos % (Auto) Baso % (Auto) Gran # Lymph # (Auto) [place] # (Auto) Eos # (Auto) Baso # (Auto) Sodium Potassium Chloride Carbon Dioxide Anion Gap BUN Creatinine Est GFR ( Amer) Est GFR (Non-Af Amer) POC Glucose (mg/dL) 139 H Random Glucose Calcium Total Bilirubin AST ALT Alkaline Phosphatase Total Protein Albumin Globulin Albumin/Globulin Ratio Procalcitonin Attending/Attestation - Attestation I have personally seen and examined this patient.: Yes I have fully participated in the care of the patient.: Yes I have reviewed all pertinent clinical information: Yes
--- NOTE | 2017-11-23 15:35 | CP.PCM.CON ---
History of Present Illness - History of Present Illness History of Present Illness: 57 year old female with PMH of DM, COPD, fibromyalgia, history of UTI's, restless leg syndrome, history of pneumonia, HTN, chronic CHF, DM, history of kidney stones, history of endometriosis, S/P oophorectomy, history of cellulitis of lower extremities came in to [facility] [place] complaining of a 1 day history of wound on the 2nd left toe with some purulent discharge. She does not recall specific trauma to the toe. She denies animal contacts, no soaking of her feet in water, no walking barefoot on soil. She denies fever or chills, no nausea or vomiting, no chest pain, no SOB, no headache or dizziness, no abdominal pain, no diarrhea, no dysuria, no cough or colds, no sore throat. Infectious diseases consult is requested to further evaluate and manage. Review of Systems - Review of Systems All systems: reviewed and no additional remarkable complaints except (as per HPI ) Past Patient History - Infectious Disease Hx of Infectious Diseases: None - Tetanus Immunizations Tetanus Immunization: Unknown - Past Medical History & Family History Past Medical History?: Yes - Past Social History Smoking Status: Former Smoker - CARDIAC Hx Cardiac Disorders: Yes Hx Hypertension: Yes - PULMONARY Hx Respiratory Disorders: Yes Hx Chronic Obstructive Pulmonary Disease (COPD): Yes - NEUROLOGICAL Hx Neurological Disorder: Yes Hx Dizziness: Yes - HEENT Hx HEENT Problems: Yes (EPISTAXIS) Hx Epistaxis: Yes - RENAL Hx Chronic Kidney Disease: Yes Hx Kidney Stones: Yes Hx Renal Failure: Yes Other/Comment: Diabetic neuropathy - ENDOCRINE/METABOLIC Hx Endocrine Disorders: Yes Hx Diabetes Mellitus Type 2: Yes - HEMATOLOGICAL/ONCOLOGICAL Hx Blood Disorders: Yes Hx Anemia: Yes - INTEGUMENTARY Hx Dermatological Problems: Yes Hx Cellulitis: Yes - MUSCULOSKELETAL/RHEUMATOLOGICAL Hx Musculoskeletal Disorders: Yes Hx Arthritis: Yes Hx Falls: Yes Hx Gout: Yes - GASTROINTESTINAL Hx Gastrointestinal Disorders: Yes Other/Comment: hernia - GENITOURINARY/GYNECOLOGICAL Hx Genitourinary Disorders: Yes Hx Incontinence: Yes Hx Urinary Tract Infection: Yes Other/Comment: Endometriosis - PSYCHIATRIC Hx Psychophysiologic Disorder: Yes Hx Anxiety: Yes Hx Depression: Yes Hx Substance Use: No - SURGICAL HISTORY Hx Appendectomy: Yes Hx Cardiac Catheterization: Yes Hx Coronary Stent: Yes - ANESTHESIA Hx Anesthesia: Yes Hx Anesthesia Reactions: No Hx Malignant Hyperthermia: No Meds Allergies/Adverse Reactions: Allergies Allergy/AdvReac Type Severity Reaction Status Date / Time theophylline Allergy NAUSEA Verified 11/22/17 11:03 - Medications Medications: Current Medications Acetaminophen (Tylenol 325mg Tab) 650 mg PO Q6H PRN PRN Reason: Pain, moderate (4-7) Allopurinol (Zyloprim) 300 mg PO DAILY [facility] Last Admin: 11/23/17 10:50 Dose: 300 mg Aspirin (Ecotrin) 81 mg PO DAILY [facility] Last Admin: 11/23/17 10:48 Dose: 81 mg Atorvastatin Calcium (Lipitor) 20 mg PO DAILY [facility] Last Admin: 11/23/17 10:48 Dose: 20 mg Carvedilol (Coreg) 3.125 mg PO BID [facility] Last Admin: 11/23/17 10:47 Dose: 3.125 mg Clopidogrel Bisulfate (Plavix) 75 mg PO DAILY [facility] Last Admin: 11/23/17 10:49 Dose: 75 mg Gemfibrozil (Lopid) 600 mg PO DAILY [facility] Last Admin: 11/23/17 10:49 Dose: 600 mg Ceftaroline Fosamil 300 mg/ (Sodium Chloride) 100 mls @ 100 mls/hr IVPB Q12 [facility] PRN Reason: Protocol Stop: 11/30/17 13:01 Insulin Detemir (Levemir) 45 unit SC 0700 [facility] Last Admin: 11/23/17 07:55 Dose: 45 units Insulin Detemir (Levemir) 45 unit SC HS [facility] Last Admin: 11/22/17 21:54 Dose: 45 unit Insulin Human Lispro (Humalog Med) 0 units SC ACHS [facility] PRN Reason: Protocol Last Admin: 11/23/17 11:51 Dose: 5 units Lactobacillus Acidophilus (Bacid Acidophilus) 1 cap PO DAILY [facility] Last Admin: 11/23/17 10:42 Dose: 1 cap Losartan Potassium (Cozaar) 25 mg PO DAILY [facility] Last Admin: 11/23/17 10:47 Dose: 25 mg Montelukast Sodium (Singulair) 10 mg PO DAILY [facility] Last Admin: 11/23/17 10:50 Dose: 10 mg Non-Formulary Medication (Fluvoxamine [Luvox]) 25 mg PO BID [facility] Last Admin: 11/23/17 10:48 Dose: Not Given Nortriptyline HCl (Pamelor) 25 mg PO DAILY [facility] Last Admin: 11/23/17 10:49 Dose: 25 mg Nortriptyline HCl (Pamelor) 50 mg PO HS [facility] Last Admin: 11/22/17 21:52 Dose: 50 mg Pantoprazole Sodium (Protonix Ec Tab) 40 mg PO ACB [facility] Last Admin: 11/23/17 07:50 Dose: 40 mg Quetiapine Fumarate (Seroquel Xr) 100 mg PO HS [facility] PRN Reason: Protocol Last Admin: 11/22/17 21:53 Dose: 100 mg Tizanidine HCl (Zanaflex) 2 mg PO Q8 [facility] Last Admin: 11/23/17 05:57 Dose: 2 mg Physical Exam - Constitutional Appears: Chronically Ill - Head Exam Head Exam: NORMAL INSPECTION - ENT Exam ENT Exam: Mucous Membranes Moist - Neck Exam Neck exam: Negative for: Meningismus - Respiratory Exam Respiratory Exam: Decreased Breath Sounds. absent: Rales - Cardiovascular Exam Cardiovascular Exam: +S1, +S2 - GI/Abdominal Exam GI & Abdominal Exam: Soft. absent: Tenderness - Extremities Exam Additional comments: Assessment left 2nd toe skin and skin structure infection, growing Staph aureus history of sepsis due to abdominal wall abscess S/P I and D grew MSSA history of sepsis due to UTI with E. coli which is resistant to many antibiotics but sensitive to Imipenem (but not ESBL-producing) COPD fibromyalgia history of UTI's restless leg syndrome history of pneumonia HTN chronic CHF DM history of kidney stones history of endometriosis S/P oophorectomy history of cellulitis of lower extremities Plan started Teflaro pending sensitivities of the Staph aureus in the wound follow up further plans of Podiatry will monitor clinically Results - Vital Signs Recent Vital Signs: Last Vital Signs Temp 98.1 F 11/23/17 08:03 Pulse 90 11/23/17 10:47 Resp 20 11/23/17 08:03 BP 136/81 11/23/17 10:47 Pulse Ox 94 L 11/23/17 08:03 - Labs Result Diagrams: 11/23/17 06:00 11/23/17 06:00 Labs: Laboratory Results - last 24 hr 11/22/17 11/22/17 11/23/17 17:20 21:37 06:00 WBC 10.4 D RBC 3.43 L Hgb 9.4 L Hct 29.9 L MCV 87.2 MCH 27.4 MCHC 31.4 RDW 17.6 H Plt Count 241 MPV 10.7 Gran % 73.1 H Lymph % (Auto) 13.9 L [place] % (Auto) 6.2 H Eos % (Auto) 6.2 H Baso % (Auto) 0.6 Gran # 7.61 H Lymph # (Auto) 1.5 [place] # (Auto) 0.7 H Eos # (Auto) 0.7 Baso # (Auto) 0.06 Sodium Potassium Chloride Carbon Dioxide Anion Gap BUN Creatinine Est GFR ( Amer) Est GFR (Non-Af Amer) POC Glucose (mg/dL) 113 H 232 H Random Glucose Calcium Total Bilirubin AST ALT Alkaline Phosphatase Total Protein Albumin Globulin Albumin/Globulin Ratio 11/23/17 11/23/17 11/23/17 06:00 07:21 11:07 WBC RBC Hgb Hct MCV MCH MCHC RDW Plt Count MPV Gran % Lymph % (Auto) [place] % (Auto) Eos % (Auto) Baso % (Auto) Gran # Lymph # (Auto) [place] # (Auto) Eos # (Auto) Baso # (Auto) Sodium 141 Potassium 4.7 Chloride 108 H Carbon Dioxide 21 Anion Gap 17 BUN 59 H Creatinine 2.2 H Est GFR ( Amer) 28 Est GFR (Non-Af Amer) 23 POC Glucose (mg/dL) 214 H 292 H Random Glucose 234 H Calcium 9.6 Total Bilirubin 0.4 AST 17 ALT 33 Alkaline Phosphatase 102 Total Protein 7.6 Albumin 4.0 Globulin 3.7 Albumin/Globulin Ratio 1.1 Assessment & Plan - Assessment and Plan (Free Text) Plan: Assessment Sepsis due to abdominal wall abscess S/P I and D POD #4 - growing MSSA history of sepsis due to UTI with E. coli which is resistant to many antibiotics but sensitive to Imipenem (but not ESBL-producing) COPD fibromyalgia history of UTI's restless leg syndrome history of pneumonia HTN chronic CHF DM history of kidney stones history of endometriosis S/P oophorectomy history of cellulitis of lower extremities Plan change Teflaro to CEfazolin - should complete 7-10 days of therapy will monitor clinically
[2017-11-23] MEDS: Levalbuterol 1.25 MG/3 ML Inhal Soln UD IH SCH (20:35)
--- NOTE | 2017-11-23 21:55 | PN ---
Copied To: Colt Zhu MD Attending MD: Colt Zhu MD DATE: 11/23/2017 SUBJECTIVE: The patient is 57 years old, who came in because of purulent discharge from left second toe. The patient states almost a week and a half ago since she recently moved, she developed blister on her feet; when she saw discharge, she came to ER for further evaluation. She has been on IV antibiotic, local wound care being done by Dr. Little. PHYSICAL EXAMINATION: GENERAL: She is awake, alert, oriented, communicative. VITAL SIGNS: She is afebrile, pulse 87, respirations 20, blood pressure 136/81. LUNGS: Bilateral fair airflow. No rhonchi or crackle. HEART: S1 and S2 audible. ABDOMEN: Soft. Nontender. No rebound. No guarding. NEUROLOGICAL: She is awake and alert. She has altered sensation below knees because of diabetic neuropathy. EXTREMITIES: Her left foot has Charcot disease. LABORATORY DATA: WBC is 10.4, hemoglobin 9.4, hematocrit 29.9, platelet 241. Chemistry: Sodium 141, potassium 4.7, chloride 108, CO2 of 21, BUN 59, creatinine 2.2, blood sugar of 139. ASSESSMENT: 1. Bilateral foot ulcers. 2. Insulin-dependent diabetes. 3. Chronic obstructive pulmonary disease. 4. History of hypertension. 5. Congestive heart failure. 6. Chronic kidney disease. 7. History of endometriosis. 8. Bilateral feet Charcot disease. PLAN: She is currently on Teflaro as per ID. She was given analgesic. Local wound care done by Podiatry team. We will follow the patient in a.m. Colt Zhu MD
[2017-11-23] MEDS: QUEtiapine 50 mg XR Tab PO SCH (22:12)
--- NOTE | 2017-11-24 02:28 | CON ---
DATE: 11/23/2017 REASON FOR CONSULTATION: Acute kidney injury superimposed on chronic kidney disease stage III/IV. HISTORY OF PRESENT ILLNESS: A 57-year lady known to me from outpatient followup and prior evaluations. The patient presented to the emergency room yesterday with complaints of bleeding from her feet. The patient reports that she moved over the weekend. She bumped her feet. She has impaired sensation. She did not feel any pain, but she saw blood tinged discharge in the bathroom, for which she came to the emergency room. No fever. No chills. No pain. In the emergency room, she was found to be hypotensive with a blood pressure of 95/62. Initial heart rate was 103. No fever. She was admitted for left second toe cellulitis. Wound cultures are now growing staph. She also was found to have elevated BUN and creatinine, which was higher than her baseline. Her last outpatient creatinine was 1.8. PAST MEDICAL AND SURGICAL HISTORY: NIDDM, peripheral neuropathy, CHF, chronic kidney disease stage III, proteinuria, anemia of chronic kidney disease. FAMILY HISTORY: Diabetes. SOCIAL HISTORY: No smoking, no alcohol use, no IV drug abuse. ALLERGIES: THEOPHYLLINE. MEDICATIONS AT HOME: Zanaflex, Luvox, Seroquel, Protonix, Singulair, losartan, Levemir, Lopid, Plavix, Coreg, Lipitor, aspirin and allopurinol. REVIEW OF SYSTEMS: All systems are reviewed, pertinent positives as mentioned in history of presenting illness, rest unremarkable. PHYSICAL EXAMINATION: GENERAL: Middle-aged lady, lying in bed, in no acute distress at present. VITAL SIGNS: Blood pressure 136/81, heart rate 90, respiratory rate 20, temperature 98.1. HEENT: Normocephalic, atraumatic, positive pallor. NECK: Supple, no JVD. LUNGS: Bilateral equal air entry, bilateral equal expansion. CARDIAC: S1 and S2, regular rate and rhythm, no murmur, no rub. ABDOMEN: Obese, distended, soft, nontender, bowel sounds present. EXTREMITIES: No lower extremity edema, superficial ulcers on the right washburn, dressing of the left foot. INTAKE AND OUTPUT: 1070/not charted. LABORATORY DATA: WBC 10, hemoglobin 9.4, hematocrit 30, platelets 241. Sodium 141, potassium 4.7, chloride 108, CO2 of 21, BUN 59, creatinine 2.2, glucose 234, calcium 9.6, AST 17, ALT 33, albumin 4. Wound culture, staph aureus. CURRENT MEDICATIONS: Ceftaroline 300 every 12, Coreg 3.125 b.i.d., losartan 25, Ecotrin 81, Levemir insulin, Lipitor 20, Lopid, nortriptyline, Plavix, Protonix, Seroquel, Singulair, Zanaflex, Zyloprim. ASSESSMENT: 1. Staph cellulitis of the second toe. 2. Leukocytosis secondary to staph cellulitis. 3. Acute kidney injury superimposed on chronic kidney disease, stage III. 4. Non-insulin dependent diabetes mellitus. 5. Congestive heart failure. 6. Anemia of chronic kidney disease. 7. Diabetic neuropathy/autonomic dysfunction. PLAN 1. Continue antibiotics as per ID recommendations. 2. Dose antibiotics for creatinine clearance about 30 mL per minute. 3. Avoid nephrotoxins. 4. Push p.o. fluids. 5. Continue low-dose ARB for renal protection. 6. Monitor labs. Thank you for the courtesy of this consultation. We will follow this patient with you. Elva Frank MD
[2017-11-24] MEDS: Levalbuterol 1.25 MG/3 ML Inhal Soln UD IH SCH ×3 (07:21→21:20)
[2017-11-24] MEDS: Insulin Detemir 100 units/ml Vial (Levemir) SC SCH ×2 (08:34→22:03)
[2017-11-24] MEDS: Pantoprazole 40 mg EC Tab PO SCH (08:35)
[2017-11-24] MEDS: Insulin Lispro (humaLOG) MEDIUM Coverage SC SCH ×4 (09:32→23:17)
[2017-11-24] MEDS ORDERED: Mupirocin 2% Ointment 15 GM TUBE TOP SCH (10:00)
--- NOTE | 2017-11-24 10:07 | PN ---
Copied To: Brent Sheth MD Attending MD: Brent Sheth MD DATE: 11/24/2017 SUBJECTIVE: The patient is currently seen on 3R. She is currently having a dressing applied to her left second toe by her religion instructor. The patient is in no acute distress. She is happy to hear that her BUN and creatinine are in her baseline level range. She remains on IV antibiotic therapy for cellulitis of her left second toe. No evidence for osteomyelitis on imaging studies. The patient presently continues on IV antibiotic therapy. She has MSSA growing out of the wound. MEDICATIONS: Medication list reviewed. The patient is currently on acidophilus, ceftaroline, Coreg, Cozaar, Ecotrin, Luvox, insulin, Lipitor, Lopid, Pamelor, Plavix, Protonix, Seroquel, Singulair, Tylenol p.r.n., Xopenex, Zanaflex and Zyloprim. OBJECTIVE: INTAKE/OUTPUT: Intake 860, output not charted. VITAL SIGNS: Blood pressure 106/69, temperature 98.5, respiratory rate of 20 with a pulse ranging from 85-99. Pulse ox is 94%. HEENT: Shows her to be normocephalic, atraumatic. Conjunctivae are pale. Sclerae are nonicteric. NECK: Supple. No neck vein distention. No thyromegaly. No lymphadenopathy. CHEST: Clear to auscultation and percussion. No rales, rhonchi or wheezing. CARDIOVASCULAR: Shows a regular rate and rhythm without audible murmurs, rubs or gallops. ABDOMEN: Soft. Bowel sounds normal. Mild obesity. No rebound or guarding. EXTREMITIES: Show a dressing being applied to her left foot. Diminished lower extremity pulses. LABORATORY DATA AND IMAGING: CBC from yesterday, white blood cell count down to 10.4; hemoglobin is 9.4, slightly lower; platelet count is 241,000. Chemistries from yesterday showed normal electrolytes. BUN 59 with a creatinine of 2.2. This is a within her baseline range for 2018. Glucose is 234. Albumin is 4. Calcium is 9.6. Microbiology: Toe culture is positive for Staph aureus, MSSA. Blood cultures are negative at 48 hours. ASSESSMENT: 1. Chronic kidney disease stage 3, within her baseline range for 2018. With BUN in the 50s and creatinine in the low 2 range. 2. Status post mild hyperkalemia, K was 5.2, it is currently down to 4.8, status post one dose of Kayexalate. 3. Methicillin-susceptible Staphylococcus aureus of her left second toe. The patient is receiving appropriate care from her religion instructor and is continuing on the antibiotic therapy. 4. History of insulin-dependent diabetes mellitus. Glucose control is acceptable. The patient continues on insulin. 5. History of anemia secondary to chronic kidney disease. Creatinine is stable at 9.4. I will check her iron, TIBC and ferritin. P.r.n. Aranesp. 6. History of diabetic neuropathy with autonomic dysfunction. This appears to be stable. 7. Past history of congestive heart failure. PLAN: 1. Continue present medications. Her renal parameters are within baseline levels. 2. Avoid all nephrotoxic agents and imaging studies which involve dye. 3. The patient will be started on a renal diet and I will check her phosphorus level, p.r.n. binder therapy. 4. Check vitamin D. Check PTH level. 5. Check iron indices and start the patient on Aranesp for her hemoglobin, which is now less than 10. 6. Continue daily wound care from her religion instructor. Brent Sheth MD
--- NOTE | 2017-11-24 10:11 | CP.PCM.PN ---
<Db Fuentes - Last Filed: 11/24/17 10:08> Subjective - Date & Time of Evaluation Date of Evaluation: 11/24/17 Time of Evaluation: 10:08 - Subjective Subjective: Podiatry Progress note for Dr. Little 57F with PMH hypertension, COPD, CAD, renal failure, and Diabetes seen for b/l foot wounds with attending Dr Little. Patient is seen resting comfortably in bed , in NAD, and AA0x3. Patient reports that she is feeling well. Reports that she sustained the injury because she on her feet for numerous hours while moving.Denies any further pedal complaints at this time. Denies any recent N/V/F /C/CP/SOB/D/posterior calf pain when squeezed. Objective - Vital Signs/Intake and Output Vital Signs (last 24 hours): Temp Pulse Resp BP Pulse Ox 98.5 F 99 H 20 106/69 94 L 11/24/17 06:00 11/24/17 06:00 11/24/17 06:00 11/24/17 06:00 11/24/17 06:00 Intake and Output: 11/24/17 11/24/17 06:59 18:59 Intake Total 120 Balance 120 - Medications Medications: Current Medications Acetaminophen (Tylenol 325mg Tab) 650 mg PO Q6H PRN PRN Reason: Pain, moderate (4-7) Allopurinol (Zyloprim) 300 mg PO DAILY [facility] Last Admin: 11/23/17 10:50 Dose: 300 mg Aspirin (Ecotrin) 81 mg PO DAILY [facility] Last Admin: 11/23/17 10:48 Dose: 81 mg Atorvastatin Calcium (Lipitor) 20 mg PO DAILY [facility] Last Admin: 11/23/17 10:48 Dose: 20 mg Carvedilol (Coreg) 3.125 mg PO BID [facility] Last Admin: 11/23/17 17:23 Dose: 3.125 mg Clopidogrel Bisulfate (Plavix) 75 mg PO DAILY [facility] Last Admin: 11/23/17 10:49 Dose: 75 mg Darbepoetin Manjit (Aranesp) 60 mcg SC ONCE ONE Stop: 11/25/17 10:01 Gemfibrozil (Lopid) 600 mg PO DAILY [facility] Last Admin: 11/23/17 10:49 Dose: 600 mg Ceftaroline Fosamil 300 mg/ (Sodium Chloride) 100 mls @ 100 mls/hr IVPB Q12 [facility] PRN Reason: Protocol Stop: 11/30/17 13:01 Last Admin: 11/23/17 22:13 Dose: Not Given Insulin Detemir (Levemir) 45 unit SC 0700 [facility] Last Admin: 11/24/17 08:34 Dose: 45 units Insulin Detemir (Levemir) 45 unit SC HS [facility] Last Admin: 11/23/17 22:12 Dose: 45 unit Insulin Human Lispro (Humalog Med) 0 units SC ACHS [facility] PRN Reason: Protocol Last Admin: 11/24/17 09:32 Dose: Not Given Lactobacillus Acidophilus (Bacid Acidophilus) 1 cap PO DAILY [facility] Last Admin: 11/23/17 10:42 Dose: 1 cap Levalbuterol HCl (Xopenex) 1.25 mg 0330,1130,1930 [facility] Last Admin: 11/24/17 07:21 Dose: 1.25 mg Losartan Potassium (Cozaar) 25 mg PO DAILY [facility] Last Admin: 11/23/17 10:47 Dose: 25 mg Montelukast Sodium (Singulair) 10 mg PO DAILY [facility] Last Admin: 11/23/17 10:50 Dose: 10 mg Mupirocin (Bactroban Ointment) 1 gm TOP BID [facility] Non-Formulary Medication (Fluvoxamine [Luvox]) 25 mg PO BID [facility] Last Admin: 11/23/17 17:24 Dose: Not Given Nortriptyline HCl (Pamelor) 25 mg PO DAILY [facility] Last Admin: 11/23/17 10:49 Dose: 25 mg Nortriptyline HCl (Pamelor) 50 mg PO HS [facility] Last Admin: 11/23/17 22:12 Dose: 50 mg Pantoprazole Sodium (Protonix Ec Tab) 40 mg PO ACB [facility] Last Admin: 11/24/17 08:35 Dose: 40 mg Polysaccharide Iron Complex (Ferrex-150) 150 mg PO DAILY [facility] Quetiapine Fumarate (Seroquel Xr) 100 mg PO HS [facility] PRN Reason: Protocol Last Admin: 11/23/17 22:12 Dose: 100 mg Tizanidine HCl (Zanaflex) 2 mg PO Q8 [facility] Last Admin: 11/24/17 06:20 Dose: 2 mg - Labs Labs: 11/23/17 06:00 11/23/17 06:00 - Constitutional Appears: Well, Non-toxic, No Acute Distress - Extremities Exam Extremities Exam: absent: Calf Tenderness Additional comments: LE focused exam: Vasc: DP/PT pulses faintly palpable 1/4 b/l. Skin temperature warm to warm from proximal to distal. CFT < 3 seconds to all digits b/l. Moderate edema noted to left second digit Neuro: Epicritic and protective sensation grossly absent b/l Derm: Right foot with roughly 3 cm x 3 cm bullae at level of plantar first MTPJ. No erythema, streaking, or other signs of infection noted. Left second digit with 0.5 cm x 0.5 cm x 0.1 cm ulceration noted medially. No erythema, minimal serous drainage, no malodor, no other clinical signs of infection. No tracking, tunneling or undermining. No probe to bone MSK: Pes cavus foot type noted b/l. Hammertoe deformities noted to all lesser digits - Psychiatric Exam Psychiatric exam: Normal Affect, Normal Mood Assessment and Plan - Assessment and Plan (Free Text) Assessment: 57F seen for b/l foot wounds secondary to pressure and neuropathy, r/o OM left foot Plan: Patient seen and evaluated with Dr. Little Afebrile, absent leukocytosis Wound cx toe: SA Continue abx per ID L Foot XR: No OM F/u MRI R foot blister deroofed without incident using #15 blade revealing clinically uninfected superficial ulceration Left second digit sharply debrided at bedside using #15 blade without incident. Minimal bleeding appreciated, no underlying purulence Both wounds flushed with copious amounts of saline and dressed with xeroform, DSD No plan for surgical intervention at this time Podiatry will continue to follow while patient in house <Rodríguez Little - Last Filed: 11/27/17 10:29> Objective - Vital Signs/Intake and Output Vital Signs (last 24 hours): Temp Pulse Resp BP Pulse Ox 97.9 F 105 H 20 141/81 96 11/26/17 09:07 11/26/17 17:27 11/26/17 09:07 11/26/17 17:27 11/26/17 09:07 - Labs Labs: 11/26/17 07:00 11/26/17 07:00 Attending/Attestation - Attestation I have personally seen and examined this patient.: Yes I have fully participated in the care of the patient.: Yes I have reviewed all pertinent clinical information, including history, physical exam and plan: Yes
[2017-11-24] MEDS: Lactobacillus Acidophilus 500 MU Cap PO SCH (10:38)
[2017-11-24] MEDS: Iron Complex Polysacch 150mg Cap PO SCH (10:38)
--- NOTE | 2017-11-24 10:49 | PN ---
Copied To: Rodríguez Little DPM Attending MD: Rodríguez Little DPM DATE: 11/24/2017 SUBJECTIVE: This is a 57-year-old diabetic female seen at bedside for continued evaluation and management of bilateral diabetic foot ulcerations. The patient is neuropathic and was in the process of moving and sustained wounds on both feet. The patient is seen at bedside resting comfortably and offers no complaints at this time. MRI was ordered, but however, she has not been taken for the exam yet, we are awaiting results. Vital signs revealed temperature of 98.5, pulse rate of 99, blood pressure of 106/69, respiratory rate of 20. Microbiology report taken from the left second digit on 11/22/2017 reveals Staphylococcus aureus, heavy growth. However, the wound culture taken yesterday of the same digit reveals no organisms. X-rays taken of the left foot reveal no radiographic evidence of cortical destruction to suggest osteomyelitis on the second digit. However, the digit does remain edematous and erythematous. Laboratory findings reveal white count of 10.4 down from 14.5 on 11/22/2017, hemoglobin of 9.4, hematocrit of 29.9, platelet count of 241. OBJECTIVE: Weakly palpable pedal pulses noted bilaterally. Capillary filling time is within normal limits bilaterally. There is noted to be absent protective sensation using 5.07 g monofilament wire testing bilaterally. Left foot presents with a full-thickness ulceration on the medial aspect of the left digit at the proximal interphalangeal joint. There is noted to be minimal serous drainage. The base of the wound is primarily granular. There is localized edema and erythema. There is no purulence. The wound is not probe to tendon or bone. Right foot presents with deroofed bulla which now has a superficial ulceration that measures approximately 2.5 x 3 cm. Base of the wound is primarily granular. There is no purulence. There is minimal serous drainage noted. The wound does not probe to tendon or bone. There are no clinical signs of acute bacterial infection. The patient has severe cavus foot type bilaterally, which is prone to digital ulcerations at the tops of the proximal interphalangeal joint secondary to hammertoe formation as well as plantar ulcerations along the metatarsal heads due to the amount of pressure being exerted at those areas due to her foot deformity. ASSESSMENT: Bilateral diabetic foot ulcerations, waiting to rule out osteomyelitis of the left second digit via MRI testing. PLAN: The patient was seen and evaluated. All wounds were cleansed with normal sterile saline and application of Bactroban, Xeroform and dry sterile dressing was applied to both feet. We will order surgical shoes bilaterally. We are awaiting MRI testing to be done to rule out left second digit osteomyelitis. We will continue with IV antibiotics as per Infectious Disease. Rodríguez Little DPM
[2017-11-24] MEDS ORDERED: DAPTOmycin 500 mg Inj (Cubicin) IV SCH (11:00)
[2017-11-24] MEDS: FLUVOXAMINE 25 MG PO SCH ×2 (11:27→17:46)
--- NOTE | 2017-11-24 12:14 | PN ---
Copied To: Terrance Kent MD Attending MD: Terrance Kent MD DATE: 11/24/2017 SUBJECTIVE: The patient seen earlier today and last night notes are reviewed. The patient had itching after giving Teflaro, but no rash was noted. PHYSICAL EXAMINATION: VITAL SIGNS: Temperature is 98, blood pressure is 106/60, respiratory rate of 18. HEENT: Examination of HEENT is unremarkable. NECK: Supple. LUNGS: Have decreased breath sounds. HEART: Normal S1, S2. ABDOMEN: Soft. LABORATORY DATA: Laboratory examination reveals a white count of 14,000, hemoglobin of 9. Chemistries are noted. Creatinine is 2.2. Microbiology reveals the blood cultures have no growth and the toe culture has Staph aureus that is oxacillin sensitive. Review of medications reveals the patient to be on Seroquel and fluvoxamine, Zanaflex, Plavix, Lopid. ASSESSMENT AND PLAN: A 57-year-old female, seen in [facility], bed 2 with diabetes mellitus, chronic obstructive lung disease, fibromyalgia, restless legs syndrome, history of pneumonia, hypertension, chronic congestive heart failure, kidney stones, endometriosis. Admitted now here with sepsis with abdominal wall abscess, status post incision and drainage, growing sensitive Staphylococcus and chronic obstructive pulmonary disease and hypertension, diabetes and kidney stones. Did not tolerate Teflaro. Cannot use Zyvox. In the phase of renal insufficiency, cannot use vancomycin. We will use daptomycin at 6 mg 4 kg. We will follow closely with you. Terrance Kent MD
--- NOTE | 2017-11-24 16:35 | MRI ---
Date of service: 11/24/2017 PROCEDURE: MRI of the left foot without contrast HISTORY: r/o OM left second digit COMPARISON: TECHNIQUE: MRI of the left foot was performed in multiple planes using multiple pulse sequences. FINDINGS: Degenerative changes are seen in the midfoot which may represent a Charcot foot. The Lisfranc ligament is not well defined and may be torn. There is no significant marrow edema or cortical destruction to suggest osteomyelitis. There is a large amount of soft tissue swelling on the plantar aspect of the foot around the base of the 2nd metatarsal and cuneiform IMPRESSION: No significant marrow edema or cortical destruction to suggest osteomyelitis
[2017-11-24] MEDS: Mupirocin 2% Ointment 15 GM TUBE TOP SCH (18:00)
--- NOTE | 2017-11-24 21:00 | PN ---
Copied To: Colt Zhu MD Attending MD: Colt Zhu MD DATE: 11/24/2017 SUBJECTIVE: The patient is a 57 years old, seen and examined, lying in bed, seems to be comfortable. No pain in the legs. No nausea, vomiting. No diarrhea. Eating and tolerating. PHYSICAL EXAMINATION: VITAL SIGNS: She is afebrile, pulse 99, respirations 20, and blood pressure 106/69. LUNGS: Bilateral fair airflow. No rhonchi or crackles. HEART: S1, S2 audible. ABDOMEN: Soft, nontender. No rebound. No guarding. NEUROLOGIC: She is awake and alert. Has altered sensation below the knees because of diabetic neuropathy. LABORATORY DATA: Blood sugar is 302. ASSESSMENT: 1. Bilateral foot ulcer. 2. Left second toe ulcer. 3. Diabetic neuropathy. 4. Charcot disease of both feet. 5. Chronic kidney disease. 6. Hypertension. 7. Hyperlipidemia. PLAN: The patient developed ALLERGIC REACTION TO TEFLARO, so her medication has been changed to daptomycin. Continue her local wound care. Monitor blood sugar. TCU evaluation has been requested. If accepted, can be transferred to TCU. Colt Zhu MD
[2017-11-24] MEDS: QUEtiapine 50 mg XR Tab PO SCH (22:03)
[2017-11-25 06:51] LABS: HEMOGLOBIN 9.2 g/dL (12.0-16.0); MEAN CELL VOLUME 87.6 fl (80.0-105.0); MEAN CORPUSCULAR HEMOGLOBIN 27.1 pg (25.0-35.0); RBC 3.39 10^6/uL (3.5-6.1); RED CELL DISTRIBUTION WIDTH 17.7 % (11.5-14.5); WHITE BLOOD COUNT 9.3 10^3/ul (4.5-11.0)
[2017-11-25] MEDS: Levalbuterol 1.25 MG/3 ML Inhal Soln UD IH SCH ×3 (07:23→20:41)
[2017-11-25 07:47] LABS: ALBUMIN 3.8 g/dL (3.0-4.8); CALCIUM 9.7 mg/dL (8.4-10.5)
[2017-11-25] MEDS: Insulin Lispro (humaLOG) MEDIUM Coverage SC SCH ×4 (08:04→22:56)
[2017-11-25] MEDS: Insulin Detemir 100 units/ml Vial (Levemir) SC SCH ×2 (08:31→22:17)
[2017-11-25] MEDS: Pantoprazole 40 mg EC Tab PO SCH (08:32)
[2017-11-25] MEDS: Lactobacillus Acidophilus 500 MU Cap PO SCH (09:51)
[2017-11-25] MEDS: FLUVOXAMINE 25 MG PO SCH ×2 (09:55→17:13)
[2017-11-25] MEDS: Iron Complex Polysacch 150mg Cap PO SCH (09:55)
[2017-11-25] MEDS ORDERED: Darbepoetin Alfa 60 mcg/ml Inj SC ONE (10:00)
[2017-11-25] MEDS: Mupirocin 2% Ointment 15 GM TUBE TOP SCH ×2 (10:06→17:16)
--- NOTE | 2017-11-25 13:32 | CP.PCM.PN ---
Subjective - Date & Time of Evaluation Date of Evaluation: 11/25/17 Time of Evaluation: 13:26 - Subjective Subjective: Podiatry Progress note for Dr. Bills 57F with PMH DM, HTN, COPD, CAD, renal failure seen for bilateral wounds. Patient is seen resting comfortably in bed, in NAD, and AA0x3. Patient reports that she is feeling well .Denies any further pedal complaints at this time. Denies any recent N/V/F/C/CP/SOB/D/posterior calf pain when squeezed. Objective - Vital Signs/Intake and Output Vital Signs (last 24 hours): Temp Pulse Resp BP Pulse Ox 98.0 F 92 H 20 113/67 95 11/25/17 06:00 11/25/17 09:55 11/25/17 06:00 11/25/17 09:55 11/25/17 06:00 Intake and Output: 11/25/17 11/25/17 06:59 18:59 Intake Total 0 Balance 0 - Medications Medications: Current Medications Acetaminophen (Tylenol 325mg Tab) 650 mg PO Q6H PRN PRN Reason: Pain, moderate (4-7) Allopurinol (Zyloprim) 300 mg PO DAILY [facility] Last Admin: 11/25/17 09:51 Dose: 300 mg Aspirin (Ecotrin) 81 mg PO DAILY [facility] Last Admin: 11/25/17 09:51 Dose: 81 mg Atorvastatin Calcium (Lipitor) 20 mg PO DAILY [facility] Last Admin: 11/25/17 09:52 Dose: 20 mg Carvedilol (Coreg) 3.125 mg PO BID [facility] Last Admin: 11/25/17 09:55 Dose: 3.125 mg Clopidogrel Bisulfate (Plavix) 75 mg PO DAILY [facility] Last Admin: 11/25/17 09:52 Dose: 75 mg Gemfibrozil (Lopid) 600 mg PO DAILY [facility] Last Admin: 11/25/17 09:52 Dose: 600 mg Daptomycin 450 mg/ Sodium (Chloride) 100 mls @ 200 mls/hr IV Q24H [facility] Stop: 11/29/17 11:01 Last Admin: 11/25/17 10:06 Dose: 200 mls/hr Insulin Detemir (Levemir) 45 unit SC 0700 [facility] Last Admin: 11/25/17 08:31 Dose: 45 units Insulin Detemir (Levemir) 45 unit SC [facility] Last Admin: 11/24/17 22:03 Dose: 45 unit Insulin Human Lispro (Humalog Med) 0 units SC [facility] PRN Reason: Protocol Last Admin: 11/25/17 12:33 Dose: 5 units Lactobacillus Acidophilus (Bacid Acidophilus) 1 cap PO DAILY [facility] Last Admin: 11/25/17 09:51 Dose: 1 cap Levalbuterol HCl (Xopenex) 1.25 mg 0330,1130,1930 [facility] Last Admin: 11/25/17 07:23 Dose: Not Given Losartan Potassium (Cozaar) 25 mg PO DAILY [facility] Last Admin: 11/25/17 09:52 Dose: 25 mg Montelukast Sodium (Singulair) 10 mg PO DAILY [facility] Last Admin: 11/25/17 09:51 Dose: 10 mg Mupirocin (Bactroban Ointment) 0 gm TOP BID [facility] Last Admin: 11/25/17 10:06 Dose: 1 gm Non-Formulary Medication (Fluvoxamine [Luvox]) 25 mg PO BID [facility] Last Admin: 11/25/17 09:55 Dose: Not Given Nortriptyline HCl (Pamelor) 25 mg PO DAILY [facility] Last Admin: 11/25/17 09:52 Dose: 25 mg Nortriptyline HCl (Pamelor) 50 mg PO [facility] Last Admin: 11/24/17 22:05 Dose: 50 mg Pantoprazole Sodium (Protonix Ec Tab) 40 mg PO ACB [facility] Last Admin: 11/25/17 08:32 Dose: 40 mg Polysaccharide Iron Complex (Ferrex-150) 150 mg PO DAILY [facility] Last Admin: 11/25/17 09:55 Dose: 150 mg Quetiapine Fumarate (Seroquel Xr) 100 mg PO [facility] PRN Reason: Protocol Last Admin: 11/24/17 22:03 Dose: 100 mg Tizanidine HCl (Zanaflex) 2 mg PO Q8 [facility] Last Admin: 11/25/17 05:56 Dose: 2 mg - Labs Labs: 11/25/17 06:00 11/25/17 06:00 - Constitutional Appears: Well, Non-toxic, No Acute Distress - Extremities Exam Extremities Exam: absent: Calf Tenderness Additional comments: LE focused exam: Vasc: DP/PT pulses faintly palpable 1/4 b/l. Skin temperature warm to warm from proximal to distal. CFT < 3 seconds to all digits b/l. Moderate edema noted to left second digit Neuro: Epicritic and protective sensation grossly absent b/l Derm: Ulceration to the right foot plantar aspect of MTPJ measuring approximately 3 cm x 3 cm x .1 with wound base mainly granular. No erythema, streaking, or other signs of infection noted. Left second digit ulceration measuring approximately 0.5 cm x 0.5 cm x 0.1 cm noted to the medial aspect of digit in 1st interspace. Left third digit ulceration measuring approximately 0.3 cm x 0.5 cm x 0.1 cm noted to the medial aspect of digit in 2nd interspace. Both ulceration to the left foot with no erythema, minimal serous drainage, no malodor, no other clinical signs of infection. No tracking, tunneling or undermining. No probe to bone MSK: Pes cavus foot type noted b/l. Hammertoe deformities noted to all lesser digits - Neurological Exam Neurological Exam: Alert, Awake, Oriented x3 - Psychiatric Exam Psychiatric exam: Normal Affect, Normal Mood Assessment and Plan - Assessment and Plan (Free Text) Assessment: 57F seen for b/l foot wounds secondary to pressure and neuropathy (-) OM Plan: Patient seen and evaluated Discussed plan with Dr. Bills Afebrile, absent leukocytosis Wound cx toe: SA Continue abx per ID L Foot XR: No OM MRI: no significant marrow edema or cortical destruction to suggest osteomyelitis Both wounds flushed with copious amounts of saline and dressed with xeroform, bactroban, DSD No plan for surgical intervention at this time Podiatry will continue to follow while patient in house
--- NOTE | 2017-11-25 15:06 | PN ---
Copied To: Jens Singh MD Attending MD: Jens Singh MD DATE: 11/25/2017 SUBJECTIVE: The patient has no complaints of any chest pain or shortness of breath. No headaches or dizziness. OBJECTIVE: VITAL SIGNS: Temperature is 98, pulse of 92, blood pressure is 113/67, respirations 20. GENERAL: The patient is lying in bed, flat, comfortable. HEENT: No oral lesion. Anicteric sclerae. Moist mucosa. NECK: No JVD, adenopathy, or thyromegaly. CARDIOVASCULAR: S1 and S2, regular. No murmurs, rubs, or gallops. LUNGS: Clear to auscultation bilaterally. No wheeze, rales, or rhonchi. ABDOMEN: Bowel sounds are positive. Soft, nontender and nondistended. EXTREMITIES: No cyanosis, clubbing or edema. DATA: White count of 9.3, hemoglobin 9.2, creatinine is 2.4. MRI of the left foot shows no significant marrow edema or cortical destruction to suggest osteomyelitis. ASSESSMENT: 1. Left foot ulcer. 2. Diabetic neuropathy. 3. Charcot disease of both feet. 4. Hypertension. 5. Dyslipidemia. 6. Chronic kidney disease stage IV. 7. Iron-deficiency anemia. PLAN: The patient is currently comfortable. She is on carvedilol and losartan for hypertension. She is on daptomycin for antibiotics. She is receiving iron because of iron deficiency anemia. She is on Levemir for diabetes. She is on Lipitor for dyslipidemia as well as Lopid. She is going to continue with Plavix.. She is on Seroquel. She is going to continue with allopurinol for hyperuricemia. She is on a renal diet. She is being followed by Infectious Disease and by Nephrology as well as Podiatry. Jens Singh MD
--- NOTE | 2017-11-25 15:30 | PN ---
Copied To: Terrance Kent MD Attending MD: Terrance Kent MD DATE: 11/25/2017 SUBJECTIVE: The patient is in bed, in no acute distress, nontoxic. She was seen early this morning and she states she is tolerating antibiotics well. PHYSICAL EXAMINATION: VITAL SIGNS: Temperature is 98, blood pressure is 113/60, respiratory rate of 20, heart rate of 92. HEENT: Unremarkable. NECK: Supple. LUNGS: Have decreased breath sounds. HEART: Normal S1, S2. ABDOMINAL: Soft, nontender. LABORATORY EXAMINATION: Reveals a white count is 9.3, hemoglobin of 9, platelets of 262 and chemistries are noted. Creatinine is 2.4. Her CPK is pending. ASSESSMENT AND PLAN: A 57-year-old female with diabetes mellitus, chronic obstructive lung disease, fibromyalgia, restless legs syndrome, history of pneumonia, hypertension, chronic congestive heart failure and kidney stones, endometriosis, admitted with sepsis with foot infection status post drainage with a sensitive staph aureus. Did not tolerate Teflaro and developed itching, unable to use Zyvox because of renal insufficiency, unable to use vancomycin. Currently on daptomycin. We will check on the CPK and the patient had a foot MRI with no evidence of osteomyelitis. We will follow with you. Terrance Kent MD : 11/25/2017 13:25:23
[2017-11-25] MEDS: QUEtiapine 50 mg XR Tab PO SCH (22:17)
[2017-11-26 07:35] LABS: HEMOGLOBIN 9.4 g/dL (12.0-16.0); MEAN CELL VOLUME 86.8 fl (80.0-105.0); MEAN CORPUSCULAR HEMOGLOBIN 26.9 pg (25.0-35.0); MEAN PLATELET VOLUME 10.9 fl (7.0-11.0); RBC 3.49 10^6/uL (3.5-6.1); RED CELL DISTRIBUTION WIDTH 17.7 % (11.5-14.5); WHITE BLOOD COUNT 8.8 10^3/ul (4.5-11.0)
[2017-11-26 07:53] LABS: ALBUMIN 3.8 g/dL (3.0-4.8)
[2017-11-26] MEDS: Levalbuterol 1.25 MG/3 ML Inhal Soln UD IH SCH ×2 (08:25→13:38)
[2017-11-26 09:07] VITALS: TEMP 97.9; O2SAT 96
[2017-11-26] MEDS: Insulin Lispro (humaLOG) MEDIUM Coverage SC SCH ×3 (09:18→17:30)
[2017-11-26] MEDS: Insulin Detemir 100 units/ml Vial (Levemir) SC SCH (09:20)
[2017-11-26] MEDS: Lactobacillus Acidophilus 500 MU Cap PO SCH (09:20)
[2017-11-26] MEDS: Pantoprazole 40 mg EC Tab PO SCH (09:21)
[2017-11-26] MEDS: Iron Complex Polysacch 150mg Cap PO SCH (09:22)
[2017-11-26] MEDS: FLUVOXAMINE 25 MG PO SCH ×2 (09:23→17:30)
[2017-11-26] MEDS ORDERED: POLYETHYLENE GLYCOL 3350 17 GM/Dose PACKET PO SCH (11:15)
[2017-11-26] MEDS: Mupirocin 2% Ointment 15 GM TUBE TOP SCH ×2 (12:19→17:30)
[2017-11-26 17:31] VITALS: BP 141/81; PULSE 105
--- NOTE | 2017-11-26 17:36 | PN ---
Copied To: Elva Frank MD Attending MD: Elva Frank MD DATE: 11/26/2017 SUBJECTIVE: The patient is seen lying in bed. She is awake. She is alert. She is comfortable. She is complaining of constipation. She reports that she has not moved her bowels since she came to the hospital. She denies any nausea or vomiting. PHYSICAL EXAMINATION GENERAL: Middle-aged lady, lying in bed. VITAL SIGNS: Blood pressure 116/69, heart rate 95, respiratory rate 20, temperature 97.9. HEENT: Normocephalic, atraumatic, positive pallor. NECK: Supple, no JVD. LUNGS: Bilateral equal air entry, bilateral equal expansion. CARDIAC: S1 and S2. Regular rate and rhythm. No murmur, no rub. ABDOMEN: Obese, distended, soft, nontender, bowel sounds present. EXTREMITIES: No lower extremity edema. Dressing of the right foot. INTAKE AND OUTPUT: 640/not charted. LABORATORY DATA: WBC 8, hemoglobin 9.4, hematocrit 30, platelets 260. Sodium 141, potassium 4.7, chloride 107, CO2 of 22, BUN 55, creatinine 2.2, glucose 275, calcium 10, AST 19, ALT 10, albumin 2.8. Wound culture, staph aureus. CURRENT MEDICATIONS: Bactroban, Coreg 3.125 b.i.d., Cozaar 25, daptomycin 450, Ecotrin, Luvox, insulin, Lipitor, Lopid, MiraLax, nortriptyline, Plavix, Protonix Seroquel, and Zanaflex. ASSESSMENT: 1. Stable chronic kidney disease, stage III with mild prerenal azotemia. 2. Controlled hyperkalemia. 3. Non-insulin dependant diabetes mellitus. 4. Anemia of chronic disease. 5. Staphylococcus wound infection/Charcot foot. 6. Constipation. PLAN: 1. Continue antibiotics for staph wound infection. 2. Dose all antibiotics for creatinine clearance about 30 mL per minute. 3. Treat constipation, restart MiraLax, prunes. 4. Anemia management as per Dr. Yadav. 5. Monitor fingersticks and maintain euglycemia. Elva Frank MD [facility] # [id number]
--- NOTE | 2017-11-26 18:02 | CP.PCM.PN ---
Subjective - Date & Time of Evaluation Date of Evaluation: 11/26/17 Time of Evaluation: 15:58 - Subjective Subjective: Podiatry Progress note for Dr. Bills 57F seen at bedside for bilateral foot wounds. Patient is seen resting comfortably in bed, in NAD, and AA0x3. Patient reports that she is feeling well and has no pain to either foot. Denies any further pedal complaints at this time. Denies any recent N/V/F/C/CP/SOB/D/posterior calf pain when squeezed. Objective - Vital Signs/Intake and Output Vital Signs (last 24 hours): Temp Pulse Resp BP Pulse Ox 97.9 F 105 H 20 141/81 96 11/26/17 09:07 11/26/17 17:27 11/26/17 09:07 11/26/17 17:27 11/26/17 09:07 - Medications Medications: Current Medications Acetaminophen (Tylenol 325mg Tab) 650 mg PO Q6H PRN PRN Reason: Pain, moderate (4-7) Allopurinol (Zyloprim) 300 mg PO DAILY [facility] Last Admin: 11/26/17 09:22 Dose: 300 mg Aspirin (Ecotrin) 81 mg PO DAILY [facility] Last Admin: 11/26/17 09:20 Dose: 81 mg Atorvastatin Calcium (Lipitor) 20 mg PO DAILY [facility] Last Admin: 11/26/17 09:21 Dose: 20 mg Carvedilol (Coreg) 3.125 mg PO BID [facility] Last Admin: 11/26/17 17:27 Dose: 3.125 mg Clopidogrel Bisulfate (Plavix) 75 mg PO DAILY [facility] Last Admin: 11/26/17 09:22 Dose: 75 mg Gemfibrozil (Lopid) 600 mg PO DAILY [facility] Last Admin: 11/26/17 09:20 Dose: 600 mg Daptomycin 450 mg/ Sodium (Chloride) 100 mls @ 200 mls/hr IV Q48H [facility] Stop: 11/29/17 11:01 Insulin Detemir (Levemir) 45 unit SC 0700 [facility] Last Admin: 11/26/17 09:20 Dose: 45 units Insulin Detemir (Levemir) 45 unit SC HS [facility] Last Admin: 11/25/17 22:17 Dose: 45 unit Insulin Human Lispro (Humalog Med) 0 units SC ACHS [facility] PRN Reason: Protocol Last Admin: 11/26/17 17:30 Dose: 3 units Lactobacillus Acidophilus (Bacid Acidophilus) 1 cap PO DAILY [facility] Last Admin: 11/26/17 09:20 Dose: 1 cap Levalbuterol HCl (Xopenex) 1.25 mg 0330,1130,1930 [facility] Last Admin: 11/26/17 13:38 Dose: 1.25 mg Losartan Potassium (Cozaar) 25 mg PO DAILY [facility] Last Admin: 11/26/17 09:22 Dose: 25 mg Montelukast Sodium (Singulair) 10 mg PO DAILY [facility] Last Admin: 11/26/17 09:22 Dose: 10 mg Mupirocin (Bactroban Ointment) 0 gm TOP BID [facility] Last Admin: 11/26/17 17:30 Dose: 1 gm Non-Formulary Medication (Fluvoxamine [Luvox]) 25 mg PO BID [facility] Last Admin: 11/26/17 17:30 Dose: Not Given Nortriptyline HCl (Pamelor) 25 mg PO DAILY [facility] Last Admin: 11/26/17 09:22 Dose: 25 mg Nortriptyline HCl (Pamelor) 50 mg PO HS [facility] Last Admin: 11/25/17 22:17 Dose: 50 mg Pantoprazole Sodium (Protonix Ec Tab) 40 mg PO ACB [facility] Last Admin: 11/26/17 09:21 Dose: 40 mg Polyethylene Glycol (Miralax) 17 gm PO DAILY [facility] Last Admin: 11/26/17 12:18 Dose: 17 gm Polysaccharide Iron Complex (Ferrex-150) 150 mg PO DAILY [facility] Last Admin: 11/26/17 09:22 Dose: 150 mg Quetiapine Fumarate (Seroquel Xr) 100 mg PO HS [facility] PRN Reason: Protocol Last Admin: 11/25/17 22:17 Dose: 100 mg Tizanidine HCl (Zanaflex) 2 mg PO Q8 [facility] Last Admin: 11/26/17 15:48 Dose: 2 mg - Labs Labs: 11/26/17 07:00 11/26/17 07:00 - Constitutional Appears: Well, Non-toxic, No Acute Distress - Extremities Exam Additional comments: LE focused exam: Vasc: DP/PT pulses faintly palpable 1/4 b/l. Skin temperature warm to warm from proximal to distal. CFT < 3 seconds to all digits b/l. Minimal edema noted to left second digit Neuro: Epicritic and protective sensation grossly absent b/l Derm: Ulceration to the right foot plantar aspect of MTPJ measuring approximately 3 cm x 3 cm x .1 with wound base mainly granular. No erythema, streaking, or other signs of infection noted. Left second digit ulceration measuring approximately 0.5 cm x 0.5 cm x 0.1 cm noted to the medial aspect of digit in 1st interspace. Left third digit ulceration measuring approximately 0.3 cm x 0.5 cm x 0.1 cm noted to the medial aspect of digit in 2nd interspace. Both ulceration to the left foot with no erythema, minimal serous drainage, no malodor, no other clinical signs of infection. No tracking, tunneling or undermining. No probe to bone MSK: Pes cavus foot type noted b/l. Hammertoe deformities noted to all lesser digits - Neurological Exam Neurological Exam: Alert, Awake, Oriented x3 - Psychiatric Exam Psychiatric exam: Normal Affect, Normal Mood Assessment and Plan - Assessment and Plan (Free Text) Assessment: 57F seen at bedside for bilateral foot wounds Plan: Patient seen and evaluated with Dr. Bills Afebrile, absent leukocytosis Continue IV abx per ID Wound cx L toe: SA L foot MRI: No OM Wounds dressed with bactroban, Maxorb, DSD Surgical shoes ordered for patient to be worn at all times while ambulating No plan for surgical intervention at this time Patient stable from podiatric standpoint [facility] following DC from hospital Podiatry will continue to follow while patient in house
--- NOTE | 2017-11-26 18:07 | CP.PCM.PN ---
Subjective - Date & Time of Evaluation Date of Evaluation: 11/26/17 Time of Evaluation: 12:15 - Subjective Subjective: Less pain in the left foot, no fevers, no nausea, no more pruritus. No diarrhea. Objective - Vital Signs/Intake and Output Vital Signs (last 24 hours): Temp Pulse Resp BP Pulse Ox 98.4 F 92 H 20 132/80 94 L 11/25/17 16:56 11/25/17 17:11 11/25/17 16:56 11/25/17 17:11 11/25/17 16:56 Intake and Output: 11/25/17 11/26/17 18:59 06:59 Intake Total 640 Output Total 0 Balance 640 - Medications Medications: Current Medications Acetaminophen (Tylenol 325mg Tab) 650 mg PO Q6H PRN PRN Reason: Pain, moderate (4-7) Allopurinol (Zyloprim) 300 mg PO DAILY [facility] Last Admin: 11/25/17 09:51 Dose: 300 mg Aspirin (Ecotrin) 81 mg PO DAILY [facility] Last Admin: 11/25/17 09:51 Dose: 81 mg Atorvastatin Calcium (Lipitor) 20 mg PO DAILY [facility] Last Admin: 11/25/17 09:52 Dose: 20 mg Carvedilol (Coreg) 3.125 mg PO BID [facility] Last Admin: 11/25/17 17:11 Dose: 3.125 mg Clopidogrel Bisulfate (Plavix) 75 mg PO DAILY [facility] Last Admin: 11/25/17 09:52 Dose: 75 mg Gemfibrozil (Lopid) 600 mg PO DAILY [facility] Last Admin: 11/25/17 09:52 Dose: 600 mg Daptomycin 450 mg/ Sodium (Chloride) 100 mls @ 200 mls/hr IV Q24H [facility] Stop: 11/29/17 11:01 Last Admin: 11/25/17 10:06 Dose: 200 mls/hr Insulin Detemir (Levemir) 45 unit SC 0700 [facility] Last Admin: 11/25/17 08:31 Dose: 45 units Insulin Detemir (Levemir) 45 unit SC HS [facility] Last Admin: 11/24/17 22:03 Dose: 45 unit Insulin Human Lispro (Humalog Med) 0 units SC ACHS [facility] PRN Reason: Protocol Last Admin: 11/25/17 16:54 Dose: 3 units Lactobacillus Acidophilus (Bacid Acidophilus) 1 cap PO DAILY [facility] Last Admin: 11/25/17 09:51 Dose: 1 cap Levalbuterol HCl (Xopenex) 1.25 mg 0330,1130,1930 [facility] Last Admin: 11/25/17 20:41 Dose: 1.25 mg Losartan Potassium (Cozaar) 25 mg PO DAILY [facility] Last Admin: 11/25/17 09:52 Dose: 25 mg Montelukast Sodium (Singulair) 10 mg PO DAILY [facility] Last Admin: 11/25/17 09:51 Dose: 10 mg Mupirocin (Bactroban Ointment) 0 gm TOP BID [facility] Last Admin: 11/25/17 17:16 Dose: 1 gm Non-Formulary Medication (Fluvoxamine [Luvox]) 25 mg PO BID [facility] Last Admin: 11/25/17 17:13 Dose: Not Given Nortriptyline HCl (Pamelor) 25 mg PO DAILY [facility] Last Admin: 11/25/17 09:52 Dose: 25 mg Nortriptyline HCl (Pamelor) [address] [facility] Last Admin: 11/24/17 22:05 Dose: 50 mg Pantoprazole Sodium (Protonix Ec Tab) 40 mg PO ACB [facility] Last Admin: 11/25/17 08:32 Dose: 40 mg Polysaccharide Iron Complex (Ferrex-150) 150 mg PO DAILY [facility] Last Admin: 11/25/17 09:55 Dose: 150 mg Quetiapine Fumarate (Seroquel Xr) 100 [address] [facility] PRN Reason: Protocol Last Admin: 11/24/17 22:03 Dose: 100 mg Tizanidine HCl (Zanaflex) 2 mg PO Q8 [facility] Last Admin: 11/25/17 13:46 Dose: 2 mg - Labs Labs: 11/25/17 06:00 11/25/17 06:00 - Constitutional Appears: Non-toxic, Chronically Ill - Head Exam Head Exam: NORMAL INSPECTION - ENT Exam ENT Exam: Mucous Membranes Moist - Neck Exam Neck Exam: absent: Meningismus - Respiratory Exam Respiratory Exam: Decreased Breath Sounds - Cardiovascular Exam Cardiovascular Exam: +S1, +S2 - GI/Abdominal Exam GI & Abdominal Exam: Soft. absent: Tenderness Assessment and Plan - Assessment and Plan (Free Text) Plan: Assessment Sepsis due to left foot skin and skin structure infection without evidence of osteomyelitis on MRI, growing MSSA from the wound chronic renal failure history of sepsis due to abdominal wall abscess S/P I and D, grew MSSA history of sepsis due to UTI with E. coli which is resistant to many antibiotics but sensitive to Imipenem (but not ESBL-producing) COPD fibromyalgia history of UTI's restless leg syndrome history of pneumonia HTN chronic CHF DM history of kidney stones history of endometriosis S/P oophorectomy history of cellulitis of lower extremities Plan continue Daptomycin to complete 7-10 days of therapy - can change to Doxycycline when ready for discharge
--- NOTE | 2017-11-27 08:34 | DS ---
Copied To: Colt Zhu MD Attending MD: Colt Zhu MD HISTORY OF PRESENT ILLNESS: The patient is 57 years old, who states that recently during the process of moving, she has been walking a lot on her feet and she was also under care of Dr. Bills regularly for her foot ulcer, but the day of coming to hospital on 11/22/2017, she started to have purulent bloody discharge from her left second toe blister, so she came to ER for evaluation. PAST MEDICAL HISTORY: She has a history of, 1. Insulin-dependent diabetes. 2. Hypertension. 3. Hyperlipidemia. 4. Chronic kidney disease. The patient was admitted, started on Teflaro. She started to itch, so that was discontinued and started on daptomycin. Her wound was taken care by Dr. Bills, seems to be doing well. PHYSICAL EXAMINATION: GENERAL: She is awake, alert, oriented, communicative. VITAL SIGNS: She is afebrile, pulse 95, respirations 18, blood pressure 116/69. LUNGS: Bilateral fair airflow. No rhonchi or crackle. HEART: S1 and S2 audible. ABDOMEN: Soft, obese, nontender. No rebound. No guarding. NEUROLOGICAL: She is awake, alert, oriented, communicative. Moves all extremities. LABORATORY EXAM: WBC is 8.8, hemoglobin 9.4, hematocrit 30, platelet 260. Chemistry: Sodium 141, potassium 4.7, chloride 107, CO2 of 22, BUN 55, creatinine 2.2, blood sugar 348. Her foot wound culture positive for Staphylococcus aureus. ASSESSMENT AND PLAN: The patient was evaluated by Dr. Kent and Dr. Bills and recommended that she can be discharged. She can have wound care done as outpatient. She was discharged on doxycycline 100 mg twice a day for a week. She will follow up with Dr. Bills for wound care and she will resume all her medications as prior to admission. Colt Zhu MD
== END 2017-11-26 19:34 | disposition home or self-care (01) | DRG 603 ==
LOC: ED 10:59 → ERH 13:26 → 3RSO 14:38
PROVIDERS: ADMIT Internal Medicine; ATTEND Internal Medicine
PROC: 0HBNXZZ Excision of Left Foot Skin, External Approach (ICD-10-PCS; principal; 2017-11-23)
PROC: 3E0F7GC Introduction of Other Therapeutic Substance into Respiratory Tract, Via Natural or Artificial Opening (ICD-10-PCS; 2017-11-23)
DX: L03.032 Cellulitis of left toe (principal); I13.0 Hypertensive heart and chronic kidney disease with heart failure and stage 1 through stage 4 chronic kidney disease, or unspecified chronic kidney disease; N17.9 Acute kidney failure, unspecified; N18.4 Chronic kidney disease, stage 4 (severe); E11.42 Type 2 diabetes mellitus with diabetic polyneuropathy; I25.10 Atherosclerotic heart disease of native coronary artery without angina pectoris; J44.9 Chronic obstructive pulmonary disease, unspecified; E11.22 Type 2 diabetes mellitus with diabetic chronic kidney disease; B95.61 Methicillin susceptible Staphylococcus aureus infection as the cause of diseases classified elsewhere; D63.1 Anemia in chronic kidney disease; E11.43 Type 2 diabetes mellitus with diabetic autonomic (poly)neuropathy; L97.519 Non-pressure chronic ulcer of other part of right foot with unspecified severity; L97.529 Non-pressure chronic ulcer of other part of left foot with unspecified severity; E11.621 Type 2 diabetes mellitus with foot ulcer; E87.5 Hyperkalemia; D50.9 Iron deficiency anemia, unspecified; E11.65 Type 2 diabetes mellitus with hyperglycemia; G25.81 Restless legs syndrome; E78.5 Hyperlipidemia, unspecified; K59.00 Constipation, unspecified; I50.9 Heart failure, unspecified; E66.9 Obesity, unspecified; Z79.4 Long term (current) use of insulin; Z87.440 Personal history of urinary (tract) infections; Z87.01 Personal history of pneumonia (recurrent); Z87.442 Personal history of urinary calculi; Z95.5 Presence of coronary angioplasty implant and graft; Z79.02 Long term (current) use of antithrombotics/antiplatelets; Z79.82 Long term (current) use of aspirin; Z87.891 Personal history of nicotine dependence

== ENCOUNTER 2018-03-14 10:30 | Inpatient (IN) | payer MEDICARE ==
[2018-03-14 10:30] VITALS: BMI 28.6
--- NOTE | 2018-03-14 10:36 | ED PDOC ---
Arrival/HPI - General Time Seen by Provider: 03/14/18 10:34 - History of Present Illness Narrative History of Present Illness (Text): 03/14/18 10:35 57 y/o female with PMH of COPD, obesity, fibromyalgia, HTN, CHF, DM, Diabetic neuropathy, Charcot foot, kidney disease, endometriosis, cellulitis of lower extremities who presents to the ED c/o left lower leg swelling and redness. Reports mild pain to the bottom of the foot since last night, and waking up this morning with redness, warmth, and swelling to the left foot and ankle. Pt follows with Dr. Bills, podiatry. Recently she developed a wound on her right foot 2nd digit, which showed positive MRSA on 03/11. Patient is also being treated for a URI with Levaquin and Prednisone with her primary, Dr. Zhu. Associated chills, no fever. Denies chest pain, SOB, N/V, headache, dizziness, sore throat, neck pain, numbness, weakness, paresthesias, or any other associated symptoms. Past Medical History - Provider Review Nursing Documentation Reviewed: Yes - Infectious Disease Hx of Infectious Diseases: None - Tetanus Immunization Tetanus Immunization: Unknown - Cardiac Hx Cardiac Disorders: Yes Hx Hypertension: Yes - Pulmonary Hx Respiratory Disorders: Yes Hx Chronic Obstructive Pulmonary Disease (COPD): Yes - Neurological Hx Neurological Disorder: Yes Hx Dizziness: Yes - HEENT Hx HEENT Disorder: Yes (EPISTAXIS) Hx Epistaxis: Yes - Renal Hx Renal Disorder: Yes Hx Kidney Stones: Yes Hx Renal Failure: Yes Other/Comment: Diabetic neuropathy - Endocrine/Metabolic Hx Endocrine Disorders: Yes Hx Diabetes Mellitus Type 2: Yes - Hematological/Oncological Hx Blood Disorders: Yes Hx Anemia: Yes - Integumentary Hx Dermatological Disorder: Yes Hx Cellulitis: Yes - Musculoskeletal/Rheumatological Hx Musculoskeletal Disorders: Yes Hx Arthritis: Yes Hx Falls: Yes Hx Gout: Yes - Gastrointestinal Hx Gastrointestinal Disorders: Yes Other/Comment: hernia - Genitourinary/Gynecological Hx Genitourinary Disorders: Yes Hx Incontinence: Yes Hx Urinary Tract Infection: Yes Other/Comment: Endometriosis - Psychiatric Hx Psychophysiologic Disorder: Yes Hx Anxiety: Yes Hx Depression: Yes Hx Substance Use: No - Surgical History Hx Appendectomy: Yes Hx Cardiac Catheterization: Yes Hx Coronary Stent: Yes - Anesthesia Hx Anesthesia: Yes Hx Anesthesia Reactions: No Hx Malignant Hyperthermia: No - Suicidal Assessment Feels Threatened In Home Enviroment: No Family/Social History - Physician Review Nursing Documentation Reviewed: Yes Family/Social History: No Known Family HX Smoking Status: Former Smoker Hx Alcohol Use: No Hx Substance Use: No Hx Substance Use Treatment: No Allergies/Home Meds Allergies/Adverse Reactions: Allergies ceftaroline fosamil [From Teflaro] Allergy (Verified 03/14/18 10:32) ITCHING theophylline Allergy (Verified 03/14/18 10:32) NAUSEA Home Medications: Home Meds Medication Instructions Recorded Confirmed Atorvastatin Calcium [Lipitor] 20 mg PO DAILY 07/08/12 03/14/18 Carvedilol 3.125 mg PO BID 07/08/12 03/14/18 Lactobacillus Acidophilus 109 mg PO DAILY 07/08/12 03/14/18 [Acidophilus] fluvoxaMINE [Luvox] 25 mg PO BID 06/26/14 03/14/18 Clopidogrel [Plavix] 75 mg PO DAILY 10/30/16 03/14/18 Albuterol HFA [Ventolin HFA 90 2 puff IH PRN PRN 11/29/16 03/14/18 mcg/actuation (8 g)] Allopurinol [Zyloprim] 300 mg PO DAILY 11/29/16 03/14/18 Aspirin [Ecotrin] 81 mg PO DAILY 11/29/16 03/14/18 Gemfibrozil [Lopid] 600 mg PO DAILY 11/29/16 03/14/18 Insulin Aspart, Recombinant 45 units SQ TID 11/29/16 03/14/18 [Novolog] Iron Sucrose Complex [Venofer] 0 mg PO Q30D 11/29/16 03/14/18 Losartan [Cozaar] 25 mg PO DAILY 11/29/16 03/14/18 Montelukast [Singulair] 10 mg PO DAILY 11/29/16 03/14/18 Multivit-Minerals/Folic Acid 1 tab PO DAILY 11/29/16 03/14/18 [Adult Multi Gummies] Pantoprazole [Protonix EC Tab] 20 mg PO DAILY 11/29/16 03/14/18 QUEtiapine [Seroquel XR] 100 mg PO HS 11/29/16 03/14/18 Vitamin E 400 iu PO DAILY 11/29/16 03/14/18 Iron Ps Cmplx/Vit B12/FA [Ferrex 1 each PO DAILY 03/22/17 03/14/18 150 Forte Capsule] Insulin Detemir [Levemir] 45 units SQ 0700 08/07/17 03/14/18 Insulin Detemir [Levemir] 45 units SQ HS 08/07/17 03/14/18 Umeclidinium [place] [Incruse 1 puff IH HS 08/07/17 03/14/18 Ellipta] Calcium Polycarbophil [Konsyl 1 tab PO BID 11/22/17 03/14/18 Fiber] Nortriptyline 25 mg PO BID 11/22/17 03/14/18 Nortriptyline 25 mg PO HS 11/22/17 03/14/18 tiZANidine [Zanaflex] 2 mg PO Q6 11/22/17 03/14/18 Furosemide [Lasix] 40 mg PO .SUN, AND Sunday03/14/18 03/14/18 Prednisone [Deltasone] 20 mg PO BID 03/14/18 03/14/18 Promethazine HCl/Codeine 5 ml PO TID PRN 03/14/18 03/14/18 [Prometh-Codein 6.25-10 mg/5 ml] Sodium Polystyrene Sulfonate 15 ml PO ., Sunday03/14/18 03/14/18 [kayeXALATE Susp] levoFLOXacin [Levaquin] 500 mg PO DAILY 03/14/18 03/14/18 Review of Systems - Physician Review All systems were reviewed & negative as marked: Yes - Review of Systems Constitutional: Normal Eyes: Normal. absent: Vision Changes ENT: Sinus Congestion. absent: Sore Throat Respiratory: Normal, Cough. absent: SOB Cardiovascular: Normal. absent: Chest Pain, Palpitations, Syncope Gastrointestinal: Normal. absent: Abdominal Pain, Nausea, Vomiting Genitourinary Female: Normal. absent: Dysuria, Frequency Musculoskeletal: Normal. absent: Back Pain, Neck Pain Skin: Ulcer (right foot 2nd digit), Cellulitis (left foot and ankle with associated swelling) Neurological: Normal. absent: Headache, Dizziness Endocrine: Normal Hemo/Lymphatic: Normal Psychiatric: Normal Physical Exam Vital Signs Reviewed: Yes Temperature: Afebrile Blood Pressure: Normal Pulse: Tachycardic Respiratory Rate: Normal Appearance: Positive for: Well-Appearing, Non-Toxic, Comfortable Pain Distress: None Mental Status: Positive for: Alert and Oriented X 3 - Systems Exam Head: Present: Atraumatic, Normocephalic Pupils: Present: PERRL Extroacular Muscles: Present: EOMI Conjunctiva: Present: Normal Ears: Present: Normal Mouth: Present: Moist Mucous Membranes Pharnyx: Present: Normal. No: ERYTHEMA, EXUDATE Nose (External): Present: Atraumatic Nose (Internal): Present: Normal Inspection, Moist, Clear Mucous Neck: Present: Normal Range of Motion. No: Meningeal Signs, MIDLINE TENDERNESS, Paraspinal Tenderness Respiratory/Chest: Present: Clear to Auscultation, Good Air Exchange. No: Respi ratory Distress, Accessory Muscle Use, Wheezes, Decreased Breath Sounds, Rales, Retracting, Rhonchi Cardiovascular: Present: Regular Rate and Rhythm, Normal S1, S2, Peripheal Pulses Present. No: Murmurs Abdomen: Present: Normal Bowel Sounds. No: Tenderness, Distention, Peritoneal Signs, Rebound, Guarding Back: Present: Normal Inspection Upper Extremity: Present: Normal Inspection, Normal ROM, NORMAL PULSES, Neurovascularly Intact, Capillary Refill < 2s. No: Cyanosis, Edema, Tenderness, Swelling, Erythema Lower Extremity: Present: NORMAL PULSES, Normal ROM, Tenderness (bottom of left foot over blister), Swelling (left anterior foot), Erythema (left anterior foot and ankle), Temperature Abnormalties (left foot and ankle warm to touch), Capillary Refill < 2 s, Other (decreased sensation to feet bilaterally per baseline form diabetic neuropathy ). No: CALF TENDERNESS, Cyanosis, Althea's Sign, Deformity Neurological: Present: GCS=15, CN II-XII Intact, Speech Normal, Motor Func Grossly Intact, Normal Sensory Function, Gait Normal, Memory Normal Skin: Present: Warm, Dry, Normal Color, Erythematous (left anterior foot and ankle), Hot (left anterior foot and ankle), Other (black/blue discoloration with fluctuance plantar surface left foot, no induration or surrounding erythema; ulcer on right foot 2nd digit, no surrounding erythema or swelling ). No: Rashes, Induration, Abscess Lymphatic: No: Cervical Adenopathy Psychiatric: Present: Alert, Oriented x 3, Normal Insight, Normal Concentration, Normal Affect, Normal Mood Medical Decision Making ED Course and Treatment: Initial Plan: * CBC, CMP * ESR, CRP * Coags * UA, culture * Wound culture * Blood cultures * Bilateral Foot Xrays * Left ankle XR * CXR * EKG * Podiatry consult 12:00 Spoke with podiatry resident Dr. Tapia, who evaluated patient at bedside. I&D of left plantar fluctuant area, serous fluid expressed. Bilateral foot wounds dressed. Instructed me to order Vancomycin and Levaquin IV, with consult. 12:[address] Yadav to review case and results of diagnostic testing, who is admitting for Dr. Zhu. Accepted patient for inpatient admission to med-surg floor with diagnosis of cellulitis, renal failure, anemia. Asked for Infectious Disease consult with Dr. Kent. Discussed plan of care with patient, who agrees and understands necessity of admission. Vital signs stable. - Lab Interpretations Narrative Lab Interpretation (Text): 03/14/18 15:46 03/14/18 11:24 03/14/18 11:24 Lab Results 03/14/18 11:24: WBC 17.3 H D, RBC 3.12 L, Hgb 8.8 L, Hct 27.1 L, MCV 86.9 D, MCH 28.2, MCHC 32.5, RDW 17.1 H, Plt Count 338, MPV 10.6, [place] % (Auto) 3.0, Eos % (Auto) 0.2 L, Baso % (Auto) 0.1, [place] # (Auto) 0.5, Eos # (Auto) 0.0, Baso # (Auto) 0.01, Neutrophils % (Manual) 88 H, Lymphocytes % (Manual) 8 L, Monocytes % (Manual) 4, ESR 144 H 03/14/18 11:24: Sodium 135, Potassium 4.7, Chloride 97 L, Carbon Dioxide 21, Anion Gap 21 H, BUN 91 H, Creatinine 4.1 H, Est GFR ( Amer) 14, Est GFR (Non-Af Amer) 11, Random Glucose 91, Calcium 9.2, Total Bilirubin 0.7, AST 48 H D, ALT 23, Alkaline Phosphatase 107, C-Reactive Protein > 450.00 H, Total Protein 7.8, Albumin 3.6, Globulin 4.2, Albumin/Globulin Ratio 0.9 L I have reviewed the lab results: Yes Interpretation: Abnormal lab values - RAD Interpretation Narrative RAD Interpretations (Text): 03/14/18 17:14 Left Ankle: FINDINGS: BONES: Normal. No fracture. JOINTS: Normal. No osteoarthritis. Ankle mortise maintained. Talar dome intact SOFT TISSUES: Normal. OTHER FINDINGS: None. IMPRESSION: Normal left ankle radiographs. Bilateral Foot Xrays: FINDINGS: BONES: Right Foot: Normal. No fracture. Left Foot: Normal. No fracture. JOINTS: Right Foot: Normal. No osteoarthritis. Left Foot: There is widening of the distance between the base of the 1st and 2nd metatarsal consistent with a chronic Lisfranc injury. Degenerative changes are seen at the base of the 2nd and 3rd metatarsals. SOFT TISSUES: Right Foot: Normal. Left Foot: Normal. OTHER FINDINGS: None. IMPRESSION: Left Foot: There is widening of the distance between the base of the 1st and 2nd metatarsal consistent with a chronic Lisfranc injury. Degenerative changes are seen at the base of the 2nd and 3rd metatarsals. The right foot is unremarkable CXR: FINDINGS: LUNGS: No active pulmonary disease. PLEURA: No significant pleural effusion identified. No pneumothorax apparent. CARDIOVASCULAR: No aortic atherosclerotic calcification present. Normal cardiac size. No pulmonary vascular congestion. OSSEOUS STRUCTURES: No significant abnormalities. VISUALIZED UPPER ABDOMEN: Normal. OTHER FINDINGS: None. IMPRESSION: No active disease. Gut Dropper: Radiologist Disposition/Present on Arrival - Present on Arrival Any Indicators Present on Arrival: No History of DVT/PE: No History of Uncontrolled Diabetes: No Urinary Catheter: No History of Decub. Ulcer: No History Surgical Site Infection Following: None - Disposition Have Diagnosis and Disposition been Completed?: Yes Diagnosis: Cellulitis, Leukocytosis, Renal failure, Anemia Disposition: HOSPITALIZED Disposition Time: 12:45 Patient Plan: Admission Patient Problems: Current Active Problems Problem Status Onset Cellulitis Acute Anemia Acute Leukocytosis Acute Renal failure Acute Condition: STABLE
[2018-03-14 11:52] LABS: BASO # 0.01 K/mm3 (0.0-2.0); BASO % 0.1 % (0.0-3.0); EOS % 0.2 % (1.5-5.0); HEMOGLOBIN 8.8 g/dL (12.0-16.0); MEAN CELL VOLUME 86.9 fl (80.0-105.0); MEAN CORPUSCULAR HEMOGLOBIN 28.2 pg (25.0-35.0); MEAN CORPUSCULAR HGB CONC 32.5 g/dl (31.0-37.0); MEAN PLATELET VOLUME 10.6 fl (7.0-11.0); MONO # 0.5 (0.1-0.6); PLATELET COUNT 338 10^3/uL (120.0-450.0); RBC 3.12 10^6/uL (3.5-6.1); RED CELL DISTRIBUTION WIDTH 17.1 % (11.5-14.5); WHITE BLOOD COUNT 17.3 10^3/uL (4.5-11.0)
[2018-03-14 11:59] LABS: ALB/GLOB RATIO 0.9 (1.1-1.8); ALBUMIN 3.6 g/dL (3.0-4.8); ALT/SGPT 23 U/L (7-56); AST/SGOT 48 U/L (14-36); BLOOD UREA NITROGEN 91 mg/dL (7-21); CALCIUM 9.2 mg/dL (8.4-10.5); GFR NON-AFRICAN AMERICAN 11
[2018-03-14 12:12] LABS: LYMPHOCYTE 8 % (22.0-35.0); MONOCYTE 4 % (1.0-6.0); NEUTROPHIL 88 % (50.0-70.0)
--- NOTE | 2018-03-14 12:37 | RAD ---
Date of service: 03/14/2018 PROCEDURE: Left Ankle Radiographs. HISTORY: r/o osteo; h/o charcot foot COMPARISON: None available. FINDINGS: BONES: Normal. No fracture. JOINTS: Normal. No osteoarthritis. Ankle mortise maintained. Talar dome intact SOFT TISSUES: Normal. OTHER FINDINGS: None. IMPRESSION: Normal left ankle radiographs.
--- NOTE | 2018-03-14 12:39 | CP.PCM.CON ---
History of Present Illness - History of Present Illness History of Present Illness: 56 year old woman with PMH of COPD, obesity, fibromyalgia, history of UTI's, restless leg syndrome, history of pneumonia, HTN, chronic CHF, DM, Diabetic neuropathy, Charcot foot history of kidney disease, history of endometriosis, history of cellulitis of lower extremities seen at ED for erythema and blistering of the left foot. Patient states that she has history of Charcot. She states that she is following up with dr. Bills. Patient states that she saw her last sunday at the wound care center as she has also an ulcer in her right 2nd toe. Patient states that she is wearing braces for her feet. Patient states that today morning she woke up with her foot red, swollen, hot and there is a blister under her foot. She states that the blister is not painful. Patient states that she has respiratory tract infection and shortness of breathing since sunday and she is on prednisone and antibiotic. Patient states that she had att acks of chilles in the last few days. She states that she has malaise. Patient denies N/V/F/CP. Patient denies any other pedal complainmt at this time PMH:COPD, obesity, fibromyalgia, history of UTI's, restless leg syndrome, history of pneumonia, HTN, chronic CHF, DM, Diabetic neuropathy, Charcot foot history of kidney disease, history of endometriosis, history of cellulitis of lower extremities PSH: Oophorectomy, labarotomy, labaroscopy Allergies: ceftaroline fosamil, theophylline Social Hx: denies smoking, EtOH use or illicit drug use. Review of Systems - Review of Systems Review of Systems: As per HPI - Constitutional Constitutional: As Per HPI Past Patient History - Infectious Disease Hx of Infectious Diseases: None - Tetanus Immunizations Tetanus Immunization: Unknown - Past Medical History & Family History Past Medical History?: Yes - Past Social History Smoking Status: Former Smoker - CARDIAC Hx Cardiac Disorders: Yes Hx Hypertension: Yes - PULMONARY Hx Respiratory Disorders: Yes Hx Chronic Obstructive Pulmonary Disease (COPD): Yes - NEUROLOGICAL Hx Neurological Disorder: Yes Hx Dizziness: Yes Other/Comment: NEUROPATHY - HEENT Hx HEENT Problems: Yes Hx Epistaxis: Yes - RENAL Hx Chronic Kidney Disease: Yes Hx Kidney Stones: Yes Hx Renal Failure: Yes - ENDOCRINE/METABOLIC Hx Endocrine Disorders: Yes Hx Diabetes Mellitus Type 2: Yes - HEMATOLOGICAL/ONCOLOGICAL Hx Blood Disorders: Yes Hx Anemia: Yes - INTEGUMENTARY Hx Dermatological Problems: Yes Hx Cellulitis: Yes - MUSCULOSKELETAL/RHEUMATOLOGICAL Hx Musculoskeletal Disorders: Yes Hx Arthritis: Yes Hx Falls: Yes Hx Gout: Yes - GASTROINTESTINAL Hx Gastrointestinal Disorders: Yes Other/Comment: hernia - GENITOURINARY/GYNECOLOGICAL Hx Genitourinary Disorders: Yes Hx Incontinence: Yes Hx Urinary Tract Infection: Yes Other/Comment: Endometriosis - PSYCHIATRIC Hx Psychophysiologic Disorder: Yes Hx Anxiety: Yes Hx Depression: Yes Hx Substance Use: No - SURGICAL HISTORY Hx Appendectomy: Yes Hx Cardiac Catheterization: Yes Hx Coronary Stent: Yes - ANESTHESIA Hx Anesthesia: Yes Hx Anesthesia Reactions: No Hx Malignant Hyperthermia: No Meds Allergies/Adverse Reactions: Allergies Allergy/AdvReac Type Severity Reaction Status Date / Time ceftaroline fosamil Allergy ITCHING Verified 03/14/18 10:32 [From Teflaro] theophylline Allergy NAUSEA Verified 03/14/18 10:32 Physical Exam - Constitutional Appears: Well, No Acute Distress - Head Exam Head Exam: ATRAUMATIC, NORMOCEPHALIC - Extremities Exam Additional comments: LE focused exam: Vasc: DP/PT pulses palpable 2/4 b/l. Cap refill < 3 seconds to all digits. Skin temperature gradient warm to warmer from proximal to distal on the left side and warm to cool on the right side. erythema noted extending up to the midfoot on the left side. moderate non pitting edema noted at the left foot Neuro: Gross and protective sensation grossly deminishedb/l Derm: a blue discolored blister noted in the plantar aspect of the left foot. 2 echymotic spots noted around the blister. erythema noted extending up to the midfoot on the left side. positive clinical signs of active infection on the left foot. Right 2nd digit tip toie ulcer measuring 0.4X0.3X0.1, surrounded by hyperkeratotic edge, minimal serous drainage, no malodor, no probe to bone, no tracking or undermining. MSK: Muscle power intact 5/5 to all major muscle groups b/l. no pain on palpating the R periulcerative area and the left foot periblister area. - Neurological Exam Neurological exam: Alert, Oriented x3 - Psychiatric Exam Psychiatric exam: Normal Affect, Normal Mood Results - Vital Signs Recent Vital Signs: Last Vital Signs Temp 98.4 F 03/14/18 10:44 Pulse 109 H 03/14/18 10:44 Resp 17 03/14/18 10:44 BP 122/71 03/14/18 10:44 Pulse Ox 98 03/14/18 10:44 - Labs Result Diagrams: 03/14/18 11:24 03/14/18 11:24 Labs: Laboratory Results - last 24 hr 03/14/18 03/14/18 11:24 11:24 WBC 17.3 H D RBC 3.12 L Hgb 8.8 L Hct 27.1 L MCV 86.9 D MCH 28.2 MCHC 32.5 RDW 17.1 H Plt Count 338 MPV 10.6 [place] % (Auto) 3.0 Eos % (Auto) 0.2 L Baso % (Auto) 0.1 [place] # (Auto) 0.5 Eos # (Auto) 0.0 Baso # (Auto) 0.01 Neutrophils % (Manual) 88 H Lymphocytes % (Manual) 8 L Monocytes % (Manual) 4 Sodium 135 Potassium 4.7 Chloride 97 L Carbon Dioxide 21 Anion Gap 21 H BUN 91 H Creatinine 4.1 H Est GFR ( Amer) 14 Est GFR (Non-Af Amer) 11 Random Glucose 91 Calcium 9.2 Total Bilirubin 0.7 AST 48 H D ALT 23 Alkaline Phosphatase 107 Total Protein 7.8 Albumin 3.6 Globulin 4.2 Albumin/Globulin Ratio 0.9 L Assessment & Plan - Assessment and Plan (Free Text) Assessment: 57 y/o F patient seen and evaluated in the ED for Left foot cellulitis and blister Plan: Patient seen and evaluated at the ED Plan discussed in details with attending Dr. bills Charts, labs and vitals reviewed; afebrile, WBCs 17.3 B/L foot x-ray: No osteomyelitis, Left Charcot foot R foot 2nd digit dressed with 4X4 gauze and tape. L foot blister opened using sterile 11 blade and suture removal kit. Left foot dressed using xeroform and DSD. Ordered Sulvadine cream to be used for dressing starting from tomorrow. Wound culture collected from the blister fluid, ordered and sent to the lab. Wound culture of the R 2nd toe ulcer (03/11): MRSA ID consult ordered. vancomycin/levaquin ordered. Patient will be admitted by the primary team. Podiatry will follow up while patient is in house - Date & Time Date: 03/14/18 Time: 12:39
--- NOTE | 2018-03-14 12:41 | RAD ---
Date of service: 03/14/2018 HISTORY: cough COMPARISON: 11/22/2017 TECHNIQUE: Chest PA and lateral FINDINGS: LUNGS: No active pulmonary disease. PLEURA: No significant pleural effusion identified. No pneumothorax apparent. CARDIOVASCULAR: No aortic atherosclerotic calcification present. Normal cardiac size. No pulmonary vascular congestion. OSSEOUS STRUCTURES: No significant abnormalities. VISUALIZED UPPER ABDOMEN: Normal. OTHER FINDINGS: None. IMPRESSION: No active disease.
[2018-03-14 13:02] LABS: ERYTHROCYTE SEDIMENTATION RATE 144 mm/hr (0.0-20.0)
--- NOTE | 2018-03-14 13:18 | RAD ---
Date of service: 03/14/2018 PROCEDURE: Bilateral Feet Radiographs. HISTORY: r/o osteo; h/o charcot foot COMPARISON: None. FINDINGS: BONES: Right Foot: Normal. No fracture. Left Foot: Normal. No fracture. JOINTS: Right Foot: Normal. No osteoarthritis. Left Foot: There is widening of the distance between the base of the 1st and 2nd metatarsal consistent with a chronic Lisfranc injury. Degenerative changes are seen at the base of the 2nd and 3rd metatarsals. SOFT TISSUES: Right Foot: Normal. Left Foot: Normal. OTHER FINDINGS: None. IMPRESSION: Left Foot: There is widening of the distance between the base of the 1st and 2nd metatarsal consistent with a chronic Lisfranc injury. Degenerative changes are seen at the base of the 2nd and 3rd metatarsals. The right foot is unremarkable
[2018-03-14] MEDS ORDERED: levoFLOXacin 750 mg in D5W 150 ML BAG IVPB STA (13:30)
[2018-03-14] MEDS ORDERED: Vancomycin 1gm in NS 250ml 1 GM/250 ML BAG IVPB STA (13:31)
[2018-03-14] MEDS ORDERED: Sodium Chloride 0.9% 1,000 ML IV SCH (14:00)
[2018-03-14] MEDS ORDERED: Sod Polystyrene Sulf 15 gm/60 ml Susp PO SCH (14:30)
--- NOTE | 2018-03-14 16:33 | HP ---
DATE OF EXAM: 03/14/2018 HISTORY OF PRESENT ILLNESS: Ms. Mallory is a 57-year-old female, admitted to the hospital with left foot cellulitis. She has a history of COPD, fibromyalgia, restless legs syndrome, Charcot foot, chronic renal disease, endometriosis. She has been seeing Dr. Bills as outpatient in wound care center, developed blisters and erythema of the left foot. She is currently on prednisone and antibiotic Levaquin for upper respiratory tract infection. Complaining of pain in the left foot. No fever, no cough with expectoration. Blister on left foot was ruptured and leg dressed in ED. PAST MEDICAL HISTORY: COPD, morbid obesity, fibromyalgia, UTI, restless legs syndrome, pneumonia, hypertension, CHF, diabetic neuropathy, Charcot foot, history of kidney disease, endometriosis, cellulitis of left lower extremity. PAST SURGICAL HISTORY: Oophorectomy, laparotomy. ALLERGIES: CEFTAROLINE FOSAMIL, THEOPHYLLINE. SOCIAL HISTORY: Denies smoking. No history of alcohol abuse. FAMILY HISTORY: Noncontributory. REVIEW OF SYSTEMS: As per HPI. Rest of 12-point review of systems reviewed and negative. PHYSICAL EXAMINATION GENERAL: Comfortable in bed, in no acute distress. VITAL SIGNS: Temperature 98.7, heart rate 80 per minute, blood pressure 120/70. HEENT: Pallor positive. NECK: No lymphadenopathy. CHEST: Air entry present and equal bilaterally. No added sound. CARDIOVASCULAR: S1, S2 normal. No murmur. No gallop. ABDOMEN: Soft, nontender. No hepatosplenomegaly. EXTREMITIES: Blister present on the left lower extremity, erythema present. Right second toe undersurface ulcer present. Minimum discharge. Edema of the left foot. LABORATORY DATA: White count 17.3, hemoglobin 8.8, hematocrit 27.1, platelets 338,000. Sodium 135, potassium 4.7, BUN 91, creatinine 4.1, glucose 91. ASSESSMENT: 1. Leukocytosis. 2. Anemia. 3. Left lower extremity cellulitis. 4. Charcot, lower extremity. 5. Left lower leg cellulitis. 6. acute on chronic renal insufficiency PLAN: Admit to the hospital. Podiatry consultation, Dr. Bills, requested. ID consultation, Dr. Kent, requested. We will continue home medications. She got a dose of 750 mg IV Levaquin in the ED. Vancomycin 1 g was given. blood cultures, wound cultures sent. We will continue insulin as per home regimen. Heart-healthy diet. Silver sulfadiazine topical ointment, Seroquel to continue. We will hold prednisone. Allopurinol 300 mg daily. Continue cardiac medications. Acute on chronic renal insufficiency, renal consult with Dr. Frank requested. Nikole Yadav MD MTDSally
[2018-03-14 18:29] LABS: INR 1.68; PARTIAL THROMBOPLASTIN TIME 37.4 Seconds (25.1-36.5); PROTHROMBIN TIME 19.4 SECONDS (9.4-12.5)
[2018-03-14] MEDS ORDERED: DAPTOmycin 500 mg Inj (Cubicin) IV SCH (21:00)
[2018-03-14] MEDS ORDERED: Insulin Detemir 100 units/ml Vial (Levemir) SC SCH (22:00)
[2018-03-14] MEDS: QUEtiapine 50 mg XR Tab PO SCH (22:04)
[2018-03-14] MEDS: UMECLIDINIUM BROMIDE IH SCH (22:05)
[2018-03-14] MEDS: Insulin Lispro (humaLOG) MEDIUM Coverage SC SCH (22:23)
[2018-03-14] MEDS: Albuterol-Ipratrop 3 mg / 0.5 (3 ml) UD IH PRN (22:34)
[2018-03-15] MEDS ORDERED: Sodium Chloride 0.9% 1,000 ML IV SCH (01:45)
[2018-03-15 02:31] LABS: CALCIUM 8.5 mg/dL (8.4-10.5)
[2018-03-15] MEDS ORDERED: Insulin Detemir 100 units/ml Vial (Levemir) SC SCH ×2 (07:00→18:35)
[2018-03-15] MEDS: Pantoprazole 20 mg EC Tab PO SCH (08:30)
[2018-03-15] MEDS: FLUVOXAMINE 25 MG PO SCH ×2 (10:21→17:49)
[2018-03-15] MEDS: MEROPENEM 500 MG in NS 500 MG/50 ML BAG IVPB SCH ×2 (10:26→23:17)
[2018-03-15] MEDS: Silver Sulfadiazine 1% Cream (25 gm) TP SCH ×2 (10:27→18:19)
[2018-03-15] MEDS: Insulin Lispro (humaLOG) MEDIUM Coverage SC SCH ×4 (10:31→22:40)
[2018-03-15] MEDS: Oxymetazoline 0.05% Nasal Spray (30 ml) NS SCH ×2 (14:13→18:20)
--- NOTE | 2018-03-15 17:55 | CP.PCM.PN ---
<Migue Tapia - Last Filed: 03/15/18 17:48> Subjective - Date & Time of Evaluation Date of Evaluation: 03/15/18 (t) Time of Evaluation: 17:48 - Subjective Subjective: Podiatry consult note for attending Dr. Little: 56 year old woman seen and evaluated at the bedside for cellulitis of the left foot. Patient states that she didn't has any pain since yesterday. She states that she feels better today but she has nose bleeding. Patient denies any overnight C/N/V/F/CP. Patient denies any other pedal complaint at this time Objective - Vital Signs/Intake and Output Vital Signs (last 24 hours): Temp Pulse Resp BP Pulse Ox 98.1 F 93 H 20 98/51 L 95 03/15/18 14:00 03/15/18 14:00 03/15/18 14:00 03/15/18 14:00 03/15/18 14:00 - Medications Medications: Current Medications Acetaminophen (Tylenol 325mg Tab) 650 mg PO Q6H PRN PRN Reason: Pain, moderate (4-7) Last Admin: 03/15/18 10:34 Dose: 650 mg Albuterol/Ipratropium (Duoneb 3 Mg/0.5 Mg (3 Ml) Ud) 3 ml IH Q6H PRN PRN Reason: SHORTNESS OF BREATH Last Admin: 03/14/18 22:34 Dose: 3 ml Allopurinol (Zyloprim) 300 mg PO DAILY [facility] Last Admin: 03/15/18 10:22 Dose: 300 mg Atorvastatin Calcium (Lipitor) 20 mg PO DAILY [facility] Last Admin: 03/15/18 10:29 Dose: 20 mg Carvedilol (Coreg) 3.125 mg PO BID [facility] Last Admin: 03/15/18 10:20 Dose: 3.125 mg Clopidogrel Bisulfate (Plavix) 75 mg PO DAILY [facility] Last Admin: 03/15/18 10:20 Dose: 75 mg Furosemide (Lasix) 40 mg PO .SUN, AND SUNDAY [facility] Gemfibrozil (Lopid) 600 mg PO DAILY [facility] Last Admin: 03/15/18 10:22 Dose: 600 mg Meropenem/Sodium Chloride (Merrem Iv 500 Mg/Ns 50 Ml) 500 mg in 50 mls @ 100 mls/hr IVPB Q12 [facility]; Protocol Stop: 03/23/18 22:01 Last Admin: 03/15/18 10:26 Dose: 100 mls/hr Daptomycin 470 mg/ Sodium (Chloride) 100 mls @ 200 mls/hr IV Q48H [facility] Stop: 03/23/18 21:01 Last Admin: 03/14/18 23:20 Dose: 200 mls/hr Sodium Chloride (Sodium Chloride 0.9%) 1,000 mls @ 50 mls/hr IV .Q20H [facility] Last Admin: 03/15/18 01:45 Dose: 50 mls/hr Insulin Detemir (Levemir) 45 unit SC 0700 [facility] Last Admin: 03/15/18 08:30 Dose: 45 unit Insulin Human Lispro (Humalog Med) 0 units SC ACHS [facility] Last Admin: 03/15/18 10:31 Dose: Not Given Losartan Potassium (Cozaar) 25 mg PO DAILY [facility] Last Admin: 03/15/18 10:29 Dose: 25 mg Montelukast Sodium (Singulair) 10 mg PO [facility] Last Admin: 03/14/18 22:05 Dose: 10 mg Home Med - Fluvoxamine [Luvox] 25 Mg 25 mg PO BID [facility] Last Admin: 03/15/18 10:21 Dose: Not Given Home Med - Umeclidinium Bennett [Incruse Ellipta] 1 Puff 1 puff IH [facility] Last Admin: 03/14/18 22:05 Dose: Not Given Oxymetazoline HCl (Afrin 0.05%) 0 ml NS TID [facility] Last Admin: 03/15/18 14:13 Dose: 3 spray Pantoprazole Sodium (Protonix Ec Tab) 20 mg PO ACB [facility] Last Admin: 03/15/18 08:30 Dose: 20 mg Quetiapine Fumarate (Seroquel Xr) 100 mg PO [facility]; Protocol Last Admin: 03/14/18 22:04 Dose: 100 mg Silver Sulfadiazine (Silvadene 1% 25 Gm) 1 gm TP BID [facility] Last Admin: 03/15/18 10:27 Dose: 1 gm Tizanidine HCl (Zanaflex) 2 mg PO Q6 [facility] Last Admin: 03/15/18 05:24 Dose: 2 mg - Labs Labs: 03/14/18 11:24 03/15/18 02:10 PT 19.4 SECONDS (9.4-12.5) H 03/14/18 17:00 INR 1.68 03/14/18 17:00 APTT 37.4 Seconds (25.1-36.5) H 03/14/18 17:00 - Constitutional Appears: Well, Non-toxic, No Acute Distress - Head Exam Head Exam: ATRAUMATIC, NORMOCEPHALIC - Extremities Exam Additional comments: LE focused exam: Vasc: DP/PT pulses palpable 2/4 b/l. Cap refill < 3 seconds to all digits. Skin temperature gradient warm to warm from proximal to distal on the left side and warm to cool on the right side. erythema noted extending up to the midfoot on the left side (improved since yesterday). Moderate non pitting edema noted at the left foot Neuro: Gross and protective sensation grossly diminished b/l. Derm: left foot plantar superficial ulcer at the site of the evacuated blister noted. measuring 4X3X0.1 cm, No malodor, Mild serous drainage, No probe to bone. Sharp edge, 100% granular base. positive clinical signs of active infection on the left foot. Right 2nd digit tip toe ulcer measuring 0.4X0.3X0.1, surrounded by hyperkeratotic edge, minimal serous drainage, no malodor, no probe to bone, no tracking or undermining. MSK: Muscle power intact 5/5 to all major muscle groups b/l. no pain on palpating the R periulcerative area b/l. - Neurological Exam Neurological Exam: Alert, Awake, Oriented x3 - Psychiatric Exam Psychiatric exam: Normal Affect, Normal Mood Assessment and Plan - Assessment and Plan (Free Text) Assessment: 57 y/o F patient seen and evaluated in the ED for Left foot cellulitis. Plan: Patient seen and evaluated at the ED Plan discussed in details with attending Dr. Little Charts, labs and vitals reviewed; afebrile, WBCs 17.3 (03/14) B/L foot x-ray: No osteomyelitis, Left Charcot foot R foot 2nd digit dressed with 4X4 gauze and tape. Left foot dressed using Sulvadine cream and DSD. Wound culture ; Pending result. Wound culture of the R 2nd toe ulcer (03/11): MRSA ID consulted; recommendations appreciated. Continue IV Abx. Podiatry will continue to follow up while patient is in house <Rodríguez Little - Last Filed: 03/16/18 08:39> Objective - Vital Signs/Intake and Output Vital Signs (last 24 hours): Temp Pulse Resp BP Pulse Ox 98.1 F 90 20 127/78 95 03/15/18 14:00 03/15/18 18:19 03/15/18 14:00 03/15/18 18:19 03/15/18 14:00 - Medications Medications: Current Medications Acetaminophen (Tylenol 325mg Tab) 650 mg PO Q6H PRN PRN Reason: Pain, moderate (4-7) Last Admin: 03/15/18 18:14 Dose: 650 mg Albuterol/Ipratropium (Duoneb 3 Mg/0.5 Mg (3 Ml) Ud) 3 ml IH Q6H PRN PRN Reason: SHORTNESS OF BREATH Last Admin: 03/16/18 08:31 Dose: 3 ml Allopurinol (Zyloprim) 300 mg PO DAILY [facility] Last Admin: 03/15/18 10:22 Dose: 300 mg Atorvastatin Calcium (Lipitor) 20 mg PO DAILY [facility] Last Admin: 03/15/18 10:29 Dose: 20 mg Carvedilol (Coreg) 3.125 mg PO BID [facility] Last Admin: 03/15/18 18:19 Dose: 3.125 mg Clopidogrel Bisulfate (Plavix) 75 mg PO DAILY [facility] Last Admin: 03/15/18 10:20 Dose: 75 mg Furosemide (Lasix) 40 mg PO .SUN, AND SUNDAY [facility] Gemfibrozil (Lopid) 600 mg PO DAILY [facility] Last Admin: 03/15/18 10:22 Dose: 600 mg Meropenem/Sodium Chloride (Merrem Iv 500 Mg/Ns 50 Ml) 500 mg in 50 mls @ 100 mls/hr IVPB Q12 [facility]; Protocol Stop: 03/23/18 22:01 Last Admin: 03/15/18 23:17 Dose: 100 mls/hr Daptomycin 470 mg/ Sodium (Chloride) 100 mls @ 200 mls/hr IV Q48H [facility] Stop: 03/23/18 21:01 Last Admin: 03/14/18 23:20 Dose: 200 mls/hr Sodium Chloride (Sodium Chloride 0.9%) 1,000 mls @ 75 mls/hr IV .[id number] [facility] Last Admin: 03/15/18 18:19 Dose: 75 mls/hr Insulin Detemir (Levemir) 32 unit SC 0700 [facility] Insulin Human Lispro (Humalog Med) 0 units SC ACHS [facility] Last Admin: 03/15/18 22:40 Dose: Not Given Losartan Potassium (Cozaar) 25 mg PO DAILY [facility] Last Admin: 03/15/18 10:29 Dose: 25 mg Montelukast Sodium (Singulair) 10 mg PO [facility] Last Admin: 03/15/18 23:15 Dose: 10 mg Home Med - Fluvoxamine [Luvox] 25 Mg 25 mg PO BID [facility] Last Admin: 03/15/18 17:49 Dose: Not Given Home Med - Umeclidinium Bennett [Incruse Ellipta] 1 Puff 1 puff IH [facility] Last Admin: 03/16/18 07:14 Dose: Not Given Nortriptyline HCl (Pamelor) 50 mg PO [facility] Last Admin: 03/15/18 23:15 Dose: 50 mg Oxycodone/Acetaminophen (Percocet 5/325 Mg Tab) 1 tab PO Q6H PRN PRN Reason: pain Stop: 03/18/18 21:56 Last Admin: 03/15/18 23:15 Dose: 1 tab Oxymetazoline HCl (Afrin 0.05%) 0 ml NS TID [facility] Last Admin: 03/15/18 18:20 Dose: 2 spray Oxymetazoline HCl (Afrin 0.05%) 1 ml NS Q12H [facility] Pantoprazole Sodium (Protonix Ec Tab) 20 mg PO ACB [facility] Last Admin: 03/15/18 08:30 Dose: 20 mg Quetiapine Fumarate (Seroquel Xr) 100 mg PO [facility]; Protocol Last Admin: 03/15/18 23:14 Dose: 100 mg Silver Sulfadiazine (Silvadene 1% 25 Gm) 1 gm TP BID [facility] Last Admin: 03/15/18 18:19 Dose: Not Given Tizanidine HCl (Zanaflex) 2 mg PO Q6 [facility] Last Admin: 03/16/18 07:12 Dose: 2 mg - Labs Labs: 03/16/18 07:00 11/24/18 07:00 PT 19.4 SECONDS (9.4-12.5) H 03/14/18 17:00 INR 1.68 03/14/18 17:00 APTT 37.4 Seconds (25.1-36.5) H 03/14/18 17:00 Attending/Attestation - Attestation I have personally seen and examined this patient.: Yes I have fully participated in the care of the patient.: Yes I have reviewed all pertinent clinical information, including history, physical exam and plan: Yes
[2018-03-15] MEDS ORDERED: Sodium Chloride 0.9% 500 ML IV STA (17:56)
[2018-03-15] MEDS: Sodium Chloride 0.9% 1,000 ML IV SCH (18:19)
[2018-03-15] MEDS ORDERED: Oxymetazoline 0.05% Nasal Spray (30 ml) NS SCH (18:45)
--- NOTE | 2018-03-15 20:16 | CON ---
DATE: 03/15/2018 The patient is seen earlier today in 569, bed #1. CHIEF COMPLAINT: Foot infection times several days. HISTORY OF PRESENT ILLNESS: This is a 57-year-old female known to me from previous admissions with a history of diabetes mellitus, chronic obstructive lung disease, fibromyalgia, restless legs syndrome, hypertension, congestive heart failure, kidney stones, endometritis, and kidney disease, who was admitted now with a diagnosis of a foot infection. Infectious Disease consultation requested. REVIEW OF SYSTEMS: A 14-point review of systems is performed. The patient has low-grade fevers. No chills. No nausea, vomiting, or chest pain. No abdominal pain, diarrhea, constipation, or bright red blood per rectum. No melena. PAST MEDICAL HISTORY: Significant for diabetes mellitus, Charcot's foot, chronic obstructive lung disease, fibromyalgia, restless legs syndrome, hypertension, congestive heart failure. The patient had an abdominal wall abscess in November, ended with Serratia, also had a left foot infection in November and kidney stones and endometritis. PAST SURGICAL HISTORY: History is significant for oophorectomy, laparotomy. ALLERGIES: THE PATIENT IS ALLERGIC TO IODINE, CEFTAROLINE, AND THEOPHYLLINE. PHYSICAL EXAMINATION: GENERAL: The patient is in bed, in no acute distress, answering questions appropriately. VITAL SIGNS: Temperature of 98, heart rate of 109, blood pressure is 103/60, respiratory rate of 20. HEENT: Unremarkable, NECK: Supple. LUNGS: Have decreased breath sounds. HEART: Exam reveals normal S1, S2. ABDOMEN: Soft, nontender. EXTREMITIES: Examination of the left foot, significant erythema, large ulcer at the base of the foot, significant discharge and ecchymotic area on top of warm to touch, and the patient also on the right foot second toe has a necrotic tip of the second toe. LABORATORY EXAMINATION: Reveals a white count of 17,300, hemoglobin of 8, platelets of 338, and BUN of 98, creatinine of 4.9. Of note that the patient's last creatinine earlier this month on was 2.2 and x-ray of the foot is noted. Chest x-ray Is negative and ankle x-ray is pending. ASSESSMENT/PLAN: A 57-year-old female with diabetes mellitus, Charcot's foot, chronic obstructive pulmonary disease, fibromyalgia, restless legs syndrome, hypertension, congestive heart failure, kidney stones, now with #1 is severe sepsis with a left lower extremity cellulitis, must rule out abscess formation with a patient with acute kidney injury on top of chronic renal failure with creatinine has changed from 2.2 to 4.1, must rule out underlying worsening of the peripheral arterial disease and must also rule out underlying osteomyelitis. Should have imaging, if possible MRI, and rule out osteomyelitis and start the patient on daptomycin and meropenem. We are waiting for culture results, imaging, and Vascular and Podiatry input, and we will follow closely with you. Terrance Kent MD MTDD
--- NOTE | 2018-03-15 22:58 | PN ---
DATE: 03/15/2018 SUBJECTIVE: The patient is a 57-year-old, seen and examined, came in because of left foot increasing pain, swelling. She was seen by Dr. Bills on Sunday and she was advised to come to Emergency Room in case the pain gets worse, so she came to ER for further evaluation. She had an episode of this morning but it has stopped now, and she is doing well. Complained of not having appetite. PHYSICAL EXAMINATION VITAL SIGNS: She is afebrile, pulse 90, respirations 20, blood pressure 127/78. LUNGS: Bilateral fair airflow. Few occasional expiratory rhonchi. HEART: S1, S2 audible. ABDOMEN: Soft, obese, nontender. No rebound. No guarding. NEUROLOGIC: The patient is awake, alert, oriented, communicative. EXTREMITIES: Left foot is in the dressing. Bilateral legs, no edema. LABORATORY EXAMINATION: WBC is 17.3, hemoglobin 8.8, hematocrit 27.1, platelet 338. PT 19.4, INR 1.68. Chemistries: Sodium 132, potassium 4.9, chloride 96, CO2 of 21, BUN 98, creatinine 4.9, blood sugar of 104. Her blood culture is growing gram-positive cocci in clusters. Wound cultures are negative. ASSESSMENT: 1. Left foot cellulitis. 2. Charcot's disease. 3. Diabetic neuropathy. 4. Hypertension. 5. Insulin-dependent diabetes. 6. Leukocytosis. 7. Renal insufficiency. 8. Staphylococcus aureus bacteremia. PLAN: Currently, the patient is on losartan, carvedilol. She is on daptomycin. She is on nebulizer treatment. She is getting Lasix intermittently. The patient's blood sugar is running low; I will cut down her Levemir and give her according to coverage. Continue nebulizer treatment. We will follow up the patient in a.m. The patient's urine output is 250 mL. She has not voided for the last couple of hours. I will give her a bolus of 250 mL and then increase her IV fluid to 75 mL/hour. If she does not void in reasonable time period, she will have indwelling catheter. Colt Zhu MD
[2018-03-15] MEDS: QUEtiapine 50 mg XR Tab PO SCH (23:14)
[2018-03-15] MEDS: Oxycodone/Acetaminophen 5/325 mg Tab PO PRN (23:15)
[2018-03-16] MEDS: UMECLIDINIUM BROMIDE IH SCH (07:14)
--- NOTE | 2018-03-16 07:29 | CARD ---
APPROVED REPORT Date of service: 03/15/2018 EKG Measurement Heart [id number] <Conclusion> Normal sinus rhythm Normal ECG
[2018-03-16 07:35] LABS: HEMOGLOBIN 7.9 g/dL (12.0-16.0); MEAN CELL VOLUME 86.9 fl (80.0-105.0); MEAN CORPUSCULAR HEMOGLOBIN 27.9 pg (25.0-35.0); MEAN CORPUSCULAR HGB CONC 32.1 g/dl (31.0-37.0); RBC 2.83 10^6/uL (3.5-6.1); RED CELL DISTRIBUTION WIDTH 17.3 % (11.5-14.5); WHITE BLOOD COUNT 23.4 10^3/uL (4.5-11.0)
[2018-03-16 08:04] LABS: ALB/GLOB RATIO 0.8 (1.1-1.8); ALBUMIN 3.1 g/dL (3.0-4.8); CALCIUM 8.3 mg/dL (8.4-10.5)
[2018-03-16] MEDS: Albuterol-Ipratrop 3 mg / 0.5 (3 ml) UD IH PRN ×2 (08:31→21:45)
--- NOTE | 2018-03-16 09:35 | PN ---
DATE: 03/16/2018 SUBJECTIVE: The patient is seen earlier this morning, in no acute distress, nontoxic. PHYSICAL EXAMINATION: VITAL SIGNS: On exam, temperature is 98, blood pressure is 120/70, respiratory rate of 20, heart rate of 98. HEENT: Examination of HEENT is unremarkable. NECK: Supple. LUNGS: Have decreased breath sounds. HEART: Normal S1, S2. ABDOMEN: Soft. EXTREMITIES: Examination of foot is unchanged. LABORATORY DATA: Laboratory examination reveals a white count of 23,000, hemoglobin of 7, BUN of 104, creatinine of 6.6. Microbiology reveals positive blood cultures x2 bottles for Staph aureus. The wound culture from the foot is gram-positive cocci. The patient's current medication list includes daptomycin and meropenem. ASSESSMENT AND PLAN: A 57-year-old female with diabetes mellitus, chronic obstructive lung disease and fibromyalgia, restless legs syndrome, hypertension, congestive heart failure, kidney stones, endometritis, kidney disease and admitted with left foot infection. The patient has leukocytosis and the patient has a heart rate of 109 with severe sepsis with Staphylococcus aureus bacteremia, acute kidney injury, most likely from the foot cellulitis and Charcot's foot. Case was discussed with Dr. Rodríguez Little regarding surgical intervention, opening and drainage of Charcot's foot, which probably is the cause of the Staphylococcus aureus bacteremia. We will repeat blood cultures x2. We will also order an echocardiogram to rule out endocarditis. Continue daptomycin and meropenem. Check on the MRI of the foot. We will follow closely with you. Terrance Kent MD
[2018-03-16] MEDS: Pantoprazole 20 mg EC Tab PO SCH (09:41)
[2018-03-16] MEDS: FLUVOXAMINE 25 MG PO SCH ×2 (09:42→20:28)
[2018-03-16] MEDS: Insulin Lispro (humaLOG) MEDIUM Coverage SC SCH ×3 (09:42→21:10)
[2018-03-16] MEDS: MEROPENEM 500 MG in NS 500 MG/50 ML BAG IVPB SCH ×2 (09:44→21:11)
[2018-03-16] MEDS: Silver Sulfadiazine 1% Cream (25 gm) TP SCH ×2 (09:45→20:28)
[2018-03-16] MEDS: Sodium Chloride 0.9% 1,000 ML IV SCH ×2 (09:46→20:00)
[2018-03-16] MEDS ORDERED: Sod Polystyrene Sulf 15 gm/60 ml Susp PO STA (09:58)
[2018-03-16] MEDS: Oxymetazoline 0.05% Nasal Spray (30 ml) NS SCH ×2 (10:07→20:29)
[2018-03-16 11:24] LABS: ALB/GLOB RATIO 0.8 (1.1-1.8); ALBUMIN 3.3 g/dL (3.0-4.8); CALCIUM 8.7 mg/dL (8.4-10.5)
--- NOTE | 2018-03-16 11:44 | PN ---
DATE: 03/16/2018 SUBJECTIVE: The patient is 57 years old, seen and examined, complained of having epistaxis, did have complained of back pain, complained of foot pain. She states she also has stuffy nose. She also complained of cough and congestion. PHYSICAL EXAMINATION GENERAL: She is awake and alert. Able to communicate. VITAL SIGNS: She is afebrile, pulse 99, respirations 20, blood pressure 89/50. LUNGS: Bilateral fair airflow. No rhonchi or crackle. HEART: S1, S2 audible. ABDOMEN: Soft, nontender. No rebound, no guarding. NEUROLOGIC: The patient is awake and alert. Communicative. EXTREMITIES: The left foot is in the dressing. According to Dr. Little, her size has increased and her foot is swollen. There is that need to be drained. LABORATORY DATA: WBC 23.4, hemoglobin 7.9, hematocrit 24.6, platelets 329,000. Chemistry; sodium 127, potassium 5.6, chloride 93, CO2 of 23, BUN 104, creatinine 6.6, blood sugar 130. AST 65, ALT 38. Her two blood cultures are positive for gram-positive in clusters. ASSESSMENT: 1. Gram-positive bacteremia, probably Staphylococcus aureus, source is the foot. 2. Foot cellulitis and possible abscess. 3. Insulin-dependent diabetes. 4. Chronic obstructive pulmonary disease. 5. Hypotension. 6. Acute on chronic kidney failure. 7. Leucocytosis secondary to foot abscess. 8. Hyperkalemia. PLAN: So, plan is we will give her Kayexalate one dose stat. She needs blood transfusion. I spoke to Dr. Little and Dr. Kent. The patient need I&D urgently since she is bacteremic and source is foot. We gave her one blood transfusion. Currently, she is on meropenem. We will follow her electrolytes and CBC in a.m. MRI of the foot has been ordered stat and the patient will be going later on today for urgent I&D. Colt Zhu MD
--- NOTE | 2018-03-16 11:46 | CP.PCM.PN ---
<Migue Tapia - Last Filed: 03/16/18 11:38> Subjective - Date & Time of Evaluation Date of Evaluation: 03/16/18 Time of Evaluation: 11:38 - Subjective Subjective: Podiatry consult note for attending Dr. Little: 56 year old woman seen and evaluated at the bedside for cellulitis of the left foot. Patient states that she didn't has any pain since yesterday. She states that she feels sick and malaise today and she still has nose bleeding. Patient denies any overnight C/N/V/F/CP. Patient denies any other pedal complaint at t his time. Objective - Vital Signs/Intake and Output Vital Signs (last 24 hours): Temp Pulse Resp BP Pulse Ox 97.9 F 100 H 20 89/50 L 97 03/16/18 06:00 03/16/18 09:42 03/16/18 06:00 03/16/18 09:42 03/16/18 06:00 - Medications Medications: Current Medications Acetaminophen (Tylenol 325mg Tab) 650 mg PO Q6H PRN PRN Reason: Pain, moderate (4-7) Last Admin: 03/15/18 18:14 Dose: 650 mg Albuterol/Ipratropium (Duoneb 3 Mg/0.5 Mg (3 Ml) Ud) 3 ml IH Q6H PRN PRN Reason: SHORTNESS OF BREATH Last Admin: 03/16/18 08:31 Dose: 3 ml Allopurinol (Zyloprim) 300 mg PO DAILY [facility] Last Admin: 03/16/18 09:41 Dose: 300 mg Atorvastatin Calcium (Lipitor) 20 mg PO DAILY [facility] Last Admin: 03/16/18 09:41 Dose: 20 mg Carvedilol (Coreg) 3.125 mg PO BID [facility] Last Admin: 03/16/18 09:40 Dose: 3.125 mg Clopidogrel Bisulfate (Plavix) 75 mg PO DAILY [facility] Last Admin: 03/15/18 10:20 Dose: 75 mg Furosemide (Lasix) 40 mg PO .WED, AND SUNDAY [facility] Gemfibrozil (Lopid) 600 mg PO DAILY [facility] Last Admin: 03/16/18 09:41 Dose: 600 mg Meropenem/Sodium Chloride (Merrem Iv 500 Mg/Ns 50 Ml) 500 mg in 50 mls @ 100 mls/hr IVPB Q12 [facility]; Protocol Stop: 03/23/18 22:01 Last Admin: 03/16/18 09:44 Dose: 100 mls/hr Daptomycin 470 mg/ Sodium (Chloride) 100 mls @ 200 mls/hr IV Q48H [facility] Stop: 03/23/18 21:01 Last Admin: 03/14/18 23:20 Dose: 200 mls/hr Sodium Chloride (Sodium Chloride 0.9%) 1,000 mls @ 75 mls/hr IV .[id number] [facility] Last Admin: 03/16/18 09:46 Dose: 75 mls/hr Insulin Human Lispro (Humalog Med) 0 units SC ACHS [facility] Last Admin: 03/16/18 09:42 Dose: Not Given Montelukast Sodium (Singulair) 10 mg PO [facility] Last Admin: 03/15/18 23:15 Dose: 10 mg Home Med - Fluvoxamine [Luvox] 25 Mg 25 mg PO BID [facility] Last Admin: 03/16/18 09:42 Dose: Not Given Home Med - Umeclidinium [place] [Incruse Ellipta] 1 Puff 1 puff IH [facility] Last Admin: 03/16/18 07:14 Dose: Not Given Nortriptyline HCl (Pamelor) 50 mg PO [facility] Last Admin: 03/15/18 23:15 Dose: 50 mg Oxycodone/Acetaminophen (Percocet 5/325 Mg Tab) 1 tab PO Q6H PRN PRN Reason: pain Stop: 03/18/18 21:56 Last Admin: 03/15/18 23:15 Dose: 1 tab Oxymetazoline HCl (Afrin 0.05%) 0 ml NS TID [facility] Last Admin: 03/16/18 10:07 Dose: 2 spray Pantoprazole Sodium (Protonix Ec Tab) 20 mg PO ACB [facility] Last Admin: 03/16/18 09:41 Dose: 20 mg Quetiapine Fumarate (Seroquel Xr) 100 mg PO [facility]; Protocol Last Admin: 03/15/18 23:14 Dose: 100 mg Silver Sulfadiazine (Silvadene 1% 25 Gm) 1 gm TP BID [facility] Last Admin: 03/16/18 09:45 Dose: Not Given Tizanidine HCl (Zanaflex) 2 mg PO Q6 [facility] Last Admin: 03/16/18 07:12 Dose: 2 mg - Labs Labs: 03/16/18 07:00 03/16/18 10:50 PT 19.4 SECONDS (9.4-12.5) H 03/14/18 17:00 INR 1.68 03/14/18 17:00 APTT 37.4 Seconds (25.1-36.5) H 03/14/18 17:00 - Constitutional Appears: Toxic - Head Exam Head Exam: ATRAUMATIC, NORMOCEPHALIC - Extremities Exam Additional comments: LE focused exam: Vasc: DP/PT pulses palpable 2/4 b/l. Cap refill < 3 seconds to all digits. Skin temperature gradient warm to warm from proximal to distal on the left side and warm to cool on the right side. erythema noted extending up to the midfoot on the left side (improved since yesterday). Moderate non pitting edema noted at the left foot (more than yesterday) Neuro: Gross and protective sensation grossly diminished b/l. Derm: left foot plantar superficial ulcer at the site of the evacuated blister noted. measuring 4X3X0.1 cm, No malodor, Mild serous drainage, No probe to bone. Sharp edge, 100% granular base. positive clinical signs of active infection on the left foot. Erythema noted along both medial and lateral borders of the left foot. Foot looks more swallen than yesterday. two new hemorrhagic blisters appears on the medial and plantar aspect of the left big toe. lateral aspect of the left foot shows and blackish discolored area measuring 1.5 X 1 cm surrounded by area of erythema but no drainage. Right 2nd digit tip toe ulcer measuring 0.4X0.3X0.1, surrounded by hyperkeratotic edge, minimal serous drainage, no malodor, no probe to bone, no tracking or undermining. MSK: Muscle power intact 5/5 to all major muscle groups b/l. no pain on palpating the R periulcerative area b/l. - Neurological Exam Neurological Exam: Alert, Awake, Oriented x3 Assessment and Plan - Assessment and Plan (Free Text) Assessment: 57 y/o F patient seen and evaluated in the ED for Left foot cellulitis. Plan: Patient seen and evaluated at the bedside with Dr. Little Plan discussed in details with attending Dr. Little Charts, labs and vitals reviewed; afebrile, WBCs 23.4 B/L foot x-ray: No osteomyelitis, Left Charcot foot R foot 2nd digit dressed with 4X4 gauze and tape. Left foot dressed using Sulvadine cream and DSD. Wound culture ; Pending result. Wound culture of the R 2nd toe ulcer (03/11): MRSA ID consulted; recommendations appreciated. Continue IV Abx as per ID. Ordered ESR,CRP Patient to stay [facility] today Ordered Stat MRI of the left foot Ordered Stat X-ray of the left foot Patient Might go to the OR today for I&D of the left foot. Pending medical and cardiac clearance. Podiatry will continue to follow up while patient is in house <Rodríguez Little - Last Filed: 03/16/18 13:03> Objective - Vital Signs/Intake and Output Vital Signs (last 24 hours): Temp Pulse Resp BP Pulse Ox 97.9 F 100 H 20 89/50 L 97 03/16/18 06:00 03/16/18 09:42 03/16/18 06:00 03/16/18 09:42 03/16/18 06:00 - Medications Medications: Current Medications Acetaminophen (Tylenol 325mg Tab) 650 mg PO Q6H PRN PRN Reason: Pain, moderate (4-7) Last Admin: 03/15/18 18:14 Dose: 650 mg Albuterol/Ipratropium (Duoneb 3 Mg/0.5 Mg (3 Ml) Ud) 3 ml IH Q6H PRN PRN Reason: SHORTNESS OF BREATH Last Admin: 03/16/18 08:31 Dose: 3 ml Allopurinol (Zyloprim) 300 mg PO DAILY [facility] Last Admin: 03/16/18 09:41 Dose: 300 mg Atorvastatin Calcium (Lipitor) 20 mg PO DAILY [facility] Last Admin: 03/16/18 09:41 Dose: 20 mg Carvedilol (Coreg) 3.125 mg PO BID [facility] Last Admin: 03/16/18 09:40 Dose: 3.125 mg Clopidogrel Bisulfate (Plavix) 75 mg PO DAILY [facility] Last Admin: 03/15/18 10:20 Dose: 75 mg Furosemide (Lasix) 40 mg PO .SUN, AND SUNDAY [facility] Gemfibrozil (Lopid) 600 mg PO DAILY [facility] Last Admin: 03/16/18 09:41 Dose: 600 mg Meropenem/Sodium Chloride (Merrem Iv 500 Mg/Ns 50 Ml) 500 mg in 50 mls @ 100 mls/hr IVPB Q12 [facility]; Protocol Stop: 03/23/18 22:01 Last Admin: 03/16/18 09:44 Dose: 100 mls/hr Daptomycin 470 mg/ Sodium (Chloride) 100 mls @ 200 mls/hr IV Q48H [facility] Stop: 03/23/18 21:01 Last Admin: 03/14/18 23:20 Dose: 200 mls/hr Sodium Chloride (Sodium Chloride 0.9%) 1,000 mls @ 75 mls/hr IV .[id number] [facility] Last Admin: 03/16/18 09:46 Dose: 75 mls/hr Insulin Human Lispro (Humalog Med) 0 units SC ACHS [facility] Last Admin: 03/16/18 09:42 Dose: Not Given Montelukast Sodium (Singulair) 10 mg PO [facility] Last Admin: 03/15/18 23:15 Dose: 10 mg Home Med - Fluvoxamine [Luvox] 25 Mg 25 mg PO BID [facility] Last Admin: 03/16/18 09:42 Dose: Not Given Home Med - Umeclidinium [place] [Incruse Ellipta] 1 Puff 1 puff IH [facility] Last Admin: 03/16/18 07:14 Dose: Not Given Nortriptyline HCl (Pamelor) 50 mg PO [facility] Last Admin: 03/15/18 23:15 Dose: 50 mg Oxycodone/Acetaminophen (Percocet 5/325 Mg Tab) 1 tab PO Q6H PRN PRN Reason: pain Stop: 03/18/18 21:56 Last Admin: 03/15/18 23:15 Dose: 1 tab Oxymetazoline HCl (Afrin 0.05%) 0 ml NS TID [facility] Last Admin: 03/16/18 10:07 Dose: 2 spray Pantoprazole Sodium (Protonix Ec Tab) 20 mg PO ACB [facility] Last Admin: 03/16/18 09:41 Dose: 20 mg Quetiapine Fumarate (Seroquel Xr) 100 mg PO [facility]; Protocol Last Admin: 03/15/18 23:14 Dose: 100 mg Silver Sulfadiazine (Silvadene 1% 25 Gm) 1 gm TP BID [facility] Last Admin: 03/16/18 09:45 Dose: Not Given Tizanidine HCl (Zanaflex) 2 mg PO Q6 [facility] Last Admin: 03/16/18 07:12 Dose: 2 mg - Labs Labs: 03/16/18 07:00 03/16/18 10:50 PT 19.4 SECONDS (9.4-12.5) H 03/14/18 17:00 INR 1.68 03/14/18 17:00 APTT 37.4 Seconds (25.1-36.5) H 03/14/18 17:00 Attending/Attestation - Attestation I have personally seen and examined this patient.: Yes I have fully participated in the care of the patient.: Yes I have reviewed all pertinent clinical information, including history, physical exam and plan: Yes
--- NOTE | 2018-03-16 13:01 | US ---
Date of service: 03/16/2018 PROCEDURE: Ultrasound of the Kidneys HISTORY: JAMIL, CKD COMPARISON: Renal ultrasound performed 11/30/16 TECHNIQUE: Sonogram of the kidneys. FINDINGS: RIGHT KIDNEY: Measures: 12.4 x 5.5 x 5.8 cm. Cortical thinning. No obstructing calculus or hydronephrosis identified. 1.5 x 1.5 x 1.2 cm and 1.0 x 0.9 x 0.8 cm upper pole cysts. LEFT KIDNEY: Measures: 11.3 x 5.5 x 5.6 cm. Cortical thinning. No obstructing calculus or hydronephrosis identified. OTHER FINDINGS: None. IMPRESSION: 1.5 x 1.5 x 1.2 cm and 1.0 x 0.9 x 0.8 cm right upper pole cysts. Bilateral cortical thinning.
--- NOTE | 2018-03-16 14:23 | CARD ---
APPROVED REPORT Date of service: 03/16/2018 EXAM: Two-dimensional and M-mode echocardiogram with Doppler and color Doppler. INDICATION R/O ENDOCARDITIS DUE TO STAPH AUREUS IN BLOOD CULTURES 2D DIMENSIONS IVSd1.4 (0.7-1.1cm)LVDd5.5 (3.9-5.9cm) LVOT Diameter2.3 (1.8-2.4cm)PWd1.3 (0.7-1.1cm) LVDs3.8 (2.5-4.0cm)FS (%) 31.9 % LVEF (%)59.5 (>50%) M-Mode DIMENSIONS Left Atrium (MM)2.80 (2.5-4.0cm)Aortic Root2.70 (2.2-3.7cm) Aortic Cusp Exc.2.10 (1.5-2.0cm) Aortic Valve AoV Peak Ywzgifjf077.0cm/Manolo Peak GR.18mmHg Mitral Valve MV E Llkhkpmy965.0cm/sMV A Qmfklqdt346.0cm/sE/A ratio1.2 TDI Lateral E' Peak V11.60cm/sMedial E' Peak V5.95cm/sE/Lateral E'11.2 E/Medial E'21.8 Tricuspid Valve TR Peak [id number]/sRAP [id number] Peak Gr.32mmHg [id number] LEFT VENTRICLE The left ventricle is normal size. There is mild concentric left ventricular hypertrophy. The left ventricular function is normal. The left ventricular ejection fraction is within the normal range. There is normal LV segmental wall motion. The left ventricular diastolic function is normal. No left ventricle thrombus noted on this study. RIGHT VENTRICLE The right ventricle is normal size. There is normal right ventricular wall thickness. The right ventricular systolic function is normal. ATRIA The left atrium size is normal. The right atrium size is normal. AORTIC VALVE The aortic valve is moderately to severely thickened. There is trace aortic regurgitation. There is no aortic valvular stenosis. MITRAL VALVE The mitral valve is moderately thickened. Mitral regurgitation is mild to moderate. There is no mitral valve stenosis. TRICUSPID VALVE There is mild tricuspid regurgitation. There is mild pulmonary hypertension. PULMONIC VALVE There is mild pulmonic valvular regurgitation. GREAT VESSELS The aortic root is normal in size. The IVC is normal in size and collapses >50% with inspiration. <Conclusion> The left ventricle is normal size. There is mild concentric left ventricular hypertrophy. The left ventricular function is normal. The left ventricular ejection fraction is within the normal range. There is normal LV segmental wall motion. Mitral regurgitation is mild to moderate. There is mild tricuspid regurgitation. There is mild pulmonary hypertension.
[2018-03-16 16:15] LABS: CALCIUM 8.7 mg/dL (8.4-10.5)
[2018-03-16] MEDS ORDERED: Sod Polystyrene Sulf 15 gm/60 ml Susp PO ONE (16:34)
--- NOTE | 2018-03-16 16:35 | RAD ---
PROCEDURE: Left Foot Radiographs. HISTORY: R/O Gas gangrene COMPARISON: Left foot radiographs performed 03/14/18 FINDINGS: BONES: Re-identified widened distance between the base of the 1st and 2nd metatarsal as on prior study consistent with chronic Lisfranc injury. Suspected erosion at the base of the 4th metatarsal. [place] lucency involving the medial aspect of the middle cuneiform. No acute displaced fracture identified. JOINTS: No dislocation. SOFT TISSUES: Marked soft tissue swelling. No evidence of radiopaque foreign body. OTHER FINDINGS: None. IMPRESSION: Marked soft tissue swelling. Re-identified widened distance between the base of the 1st and 2nd metatarsal consistent with chronic Lisfranc injury. Suspected erosion base of the 4th metatarsal. [place] lucency involving the medial aspect of the middle cuneiform, uncertain significance. Degenerative changes. Recommend correlation with report from forthcoming MRI of the foot.
[2018-03-16] MEDS ORDERED: Midazolam 2 MG/2 ML VIAL ONE (17:08)
[2018-03-16] MEDS ORDERED: Lidocaine PF 2% (5 ml) Inj (For Cardiac Arrhy) ONE (17:09)
[2018-03-16] MEDS ORDERED: Propofol 10 mg/ml Inj (20 ML) ONE (17:09)
[2018-03-16] MEDS ORDERED: Ketamine 10 mg/ml Inj (20 ml) ONE (17:12)
[2018-03-16] MEDS ORDERED: Lidocaine 2% Inj (20ml) ONE (17:16)
[2018-03-16] MEDS ORDERED: Gentamicin 80 mg/2mL Inj. ONE (17:16)
[2018-03-16] MEDS ORDERED: HYDROmorphone 0.5 mg/0.5 ml ISec IVP PRN (18:59)
--- NOTE | 2018-03-16 18:59 | PCM.SURG1 ---
Surgeon's Initial Post Op Note - Surgeon's Notes Surgeon: Dr. Rodríguez Little. DPM Manager Sql: Dr. Migue Tapia. DPM/PGY1 Type of Anesthesia: IV Sedation, Local Anesthesia Administered By: Dr. Garvey Pre-Operative Diagnosis: Sever Diabetic Left foot abscess with compartment syndrome like clinical signs. Operative Findings: See Dictation. Injectables: 30 cc lidocaine 2%. Post-Operative Diagnosis: Same Operation Performed: I & D of deep abscesses of the left foot Specimen/Specimens Removed: Deep wound cultures Estimated Blood Loss: EBL {In ML}: 20 Blood Products Given: N/A Drains Used: No Drains Post-Op Condition: Good Date of Surgery/Procedure: 03/16/18 Time of Surgery/Procedure: 19:01
[2018-03-16] MEDS ORDERED: Sodium Chloride 0.9% 1,000 ML IV SCH (19:00)
[2018-03-16] MEDS ORDERED: Sodium Chloride 0.9% 500 ML IV STA (20:29)
[2018-03-16 20:39] LABS: HEMOGLOBIN 7.5 g/dL (12.0-16.0); MEAN CELL VOLUME 85.3 fl (80.0-105.0); MEAN CORPUSCULAR HEMOGLOBIN 28.2 pg (25.0-35.0); MEAN PLATELET VOLUME 9.6 fl (7.0-11.0); RBC 2.66 10^6/uL (3.5-6.1)
--- NOTE | 2018-03-16 20:41 | CP.PCM.CON ---
<Baldomero Hand - Last Filed: 03/16/18 20:23> History of Present Illness - History of Present Illness History of Present Illness: ICU Consult Note for Dr. Martinez Patient is a 56 yo F with PMH of COPD, obesity, fibromyalgia, recurrent UTI, restless leg syndrome, HTN, chronic CHF, DM, diabetic neuropathy, CKD, endometriosis, charcot foot and cellulitis of LE presented to ED with erythema and blistering of the left foot. Patient was subsequently admitted for left foot infection. Patient underwent I&D of the left foot abscess. ICU was consulted due to septic shock with bacteremia 2/2 staph aureus, JAMIL on CKD, and electrolyte disturbance. Patient was seen post-operatively. Patient is able to answer basic questioning and is AOx3. Patient admitted to left foot pain. Patient denied CP, SOB, n/v/d, abdominal pain, fever, chill, KRUSE, or dizziness. PMH: COPD, obesity, fibromyalgia, recurrent UTI, restless leg syndrome, HTN, chronic CHF, DM, diabetic neuropathy, CKD, endometriosis, charcot foot and cellulitis of LE Surg: Oophorectomy, laparotomy, laparoscopy All: Iodine, ceftaroline, theophylline SH: Denies smoking, EtOH, or illicit drug use FHx: Non-contributory Review of Systems - Review of Systems All systems: reviewed and no additional remarkable complaints except (12 point ROS reviewed and is negative other than what is stated in HPI.) Past Patient History - Infectious Disease Hx of Infectious Diseases: None - Tetanus Immunizations Tetanus Immunization: Unknown - Past Medical History & Family History Past Medical History?: Yes - Past Social History Smoking Status: Former Smoker - CARDIAC Hx Cardiac Disorders: Yes (coronary stent.) Hx Congestive Heart Failure: Yes Hx Hypertension: Yes - PULMONARY Hx Chronic Obstructive Pulmonary Disease (COPD): Yes - NEUROLOGICAL Hx Neurological Disorder: Yes Hx Dizziness: Yes - HEENT Hx HEENT Problems: Yes (EPISTAXIS) Hx Epistaxis: Yes - RENAL Hx Chronic Kidney Disease: Yes Hx Kidney Stones: Yes Hx Renal Failure: Yes Other/Comment: Diabetic neuropathy - ENDOCRINE/METABOLIC Hx Diabetes Mellitus Type 2: Yes - HEMATOLOGICAL/ONCOLOGICAL Hx Blood Transfusions: Yes Hx Blood Transfusion Reaction: No - INTEGUMENTARY Hx Dermatological Problems: Yes Hx Cellulitis: Yes - MUSCULOSKELETAL/RHEUMATOLOGICAL Hx Arthritis: Yes - GASTROINTESTINAL Hx Gastrointestinal Disorders: Yes Other/Comment: hernia - GENITOURINARY/GYNECOLOGICAL Hx Genitourinary Disorders: Yes Hx Incontinence: Yes Hx Urinary Tract Infection: Yes Other/Comment: Endometriosis - PSYCHIATRIC Hx Psychophysiologic Disorder: Yes Hx Anxiety: Yes Hx Depression: Yes Hx Substance Use: No - SURGICAL HISTORY Hx Surgeries: Yes - ANESTHESIA Hx Anesthesia Reactions: No Hx Malignant Hyperthermia: No Meds Allergies/Adverse Reactions: Allergies Allergy/AdvReac Type Severity Reaction Status Date / Time Iodine and Iodide Containing Allergy Intermediate URTICARIA Verified 03/15/18 00:44 Produc ceftaroline fosamil Allergy ITCHING Verified 03/14/18 10:32 [From Teflaro] theophylline Allergy NAUSEA Verified 03/14/18 10:32 - Medications Medications: Current Medications Acetaminophen (Tylenol 325mg Tab) 650 mg PO Q6H PRN PRN Reason: Pain, moderate (4-7) Last Admin: 03/15/18 18:14 Dose: 650 mg Albuterol/Ipratropium (Duoneb 3 Mg/0.5 Mg (3 Ml) Ud) 3 ml IH Q6H PRN PRN Reason: SHORTNESS OF BREATH Last Admin: 03/16/18 08:31 Dose: 3 ml Allopurinol (Zyloprim) 300 mg PO DAILY [facility] Last Admin: 03/16/18 09:41 Dose: 300 mg Atorvastatin Calcium (Lipitor) 20 mg PO DAILY [facility] Last Admin: 03/16/18 09:41 Dose: 20 mg Clopidogrel Bisulfate (Plavix) 75 mg PO DAILY [facility] Last Admin: 03/15/18 10:20 Dose: 75 mg Gemfibrozil (Lopid) 600 mg PO DAILY [facility] Last Admin: 03/16/18 09:41 Dose: 600 mg Hydromorphone HCl (Dilaudid) 0.5 mg IVP Q15M PRN PRN Reason: Pain, moderate (4-7) Stop: 03/16/18 21:00 Meropenem/Sodium Chloride (Merrem Iv 500 Mg/Ns 50 Ml) 500 mg in 50 mls @ 100 mls/hr IVPB Q12 [facility]; Protocol Stop: 03/23/18 22:01 Last Admin: 03/16/18 09:44 Dose: 100 mls/hr Daptomycin 470 mg/ Sodium (Chloride) 100 mls @ 200 mls/hr IV Q48H [facility] Stop: 03/23/18 21:01 Last Admin: 03/14/18 23:20 Dose: 200 mls/hr Sodium Chloride (Sodium Chloride 0.9%) 1,000 mls @ 75 mls/hr IV .[id number] [facility] Last Admin: 03/16/18 09:46 Dose: 75 mls/hr Sodium Chloride (Sodium Chloride 0.9%) 1,000 mls @ 75 mls/hr IV .[id number] [facility] Stop: 03/16/18 21:01 Insulin Human Lispro (Humalog Med) 0 units SC ACHS [facility] Last Admin: 03/16/18 09:42 Dose: Not Given Midodrine (Proamatine) 10 mg PO TID [facility] Montelukast Sodium (Singulair) 10 mg PO [facility] Last Admin: 03/15/18 23:15 Dose: 10 mg Home Med - Fluvoxamine [Luvox] 25 Mg 25 mg PO BID [facility] Last Admin: 03/16/18 09:42 Dose: Not Given Home Med - Umeclidinium [place] [Incruse Ellipta] 1 Puff 1 puff IH [facility] Last Admin: 03/16/18 07:14 Dose: Not Given Nortriptyline HCl (Pamelor) 50 mg PO [facility] Last Admin: 03/15/18 23:15 Dose: 50 mg Oxychlorosene Sodium (Clorpactin Wcs-90) 2 gm TOP Q12 [facility] Oxycodone/Acetaminophen (Percocet 5/325 Mg Tab) 1 tab PO Q6H PRN PRN Reason: pain Stop: 03/18/18 21:56 Last Admin: 03/15/18 23:15 Dose: 1 tab Oxymetazoline HCl (Afrin 0.05%) 0 ml NS TID [facility] Last Admin: 03/16/18 10:07 Dose: 2 spray Pantoprazole Sodium (Protonix Ec Tab) 20 mg PO ACB [facility] Last Admin: 03/16/18 09:41 Dose: 20 mg Quetiapine Fumarate (Seroquel Xr) 100 mg PO [facility]; Protocol Last Admin: 03/15/18 23:14 Dose: 100 mg Silver Sulfadiazine (Silvadene 1% 25 Gm) 1 gm TP BID [facility] Last Admin: 03/16/18 09:45 Dose: Not Given Tizanidine HCl (Zanaflex) 2 mg PO Q6 [facility] Last Admin: 03/16/18 07:12 Dose: 2 mg Physical Exam - Constitutional Appears: No Acute Distress - Head Exam Head Exam: NORMAL INSPECTION - Eye Exam Eye Exam: Normal appearance - ENT Exam ENT Exam: Mucous Membranes Moist, Normal Exam - Neck Exam Neck exam: Positive for: Normal Inspection - Respiratory Exam Respiratory Exam: Clear to Auscultation Bilateral. absent: Rales, Rhonchi, Wheezes - Cardiovascular Exam Cardiovascular Exam: RRR, +S1, +S2. absent: Diastolic murmur, Gallop, Rubs, Systolic Murmur - GI/Abdominal Exam GI & Abdominal Exam: Soft. absent: Distended, Guarding, Rebound, Rigid, Tenderness - Extremities Exam Additional comments: Dressings on left foot, post op, with strike through active bleed - Back Exam Back exam: NORMAL INSPECTION - Neurological Exam Neurological exam: Alert, CN II-XII Intact - Psychiatric Exam Psychiatric exam: Normal Affect, Normal Mood - Skin Skin Exam: Dry, Intact, Normal Color, Warm Results - Vital Signs Recent Vital Signs: Last Vital Signs Temp 97.3 F L 03/16/18 19:38 Pulse 89 03/16/18 19:38 Resp 16 03/16/18 19:38 BP 81/42 L 03/16/18 19:38 Pulse Ox 96 03/16/18 19:38 - Labs Result Diagrams: 03/16/18 07:00 03/16/18 15:20 Labs: Laboratory Results - last 24 hr 03/15/18 03/16/18 03/16/18 21:09 07:00 07:00 WBC 23.4 H D RBC 2.83 L Hgb 7.9 L Hct 24.6 L MCV 86.9 MCH 27.9 MCHC 32.1 RDW 17.3 H Plt Count 329 MPV 11.0 ESR Sodium 127 L Potassium 5.6 H* Chloride 93 L Carbon Dioxide 16 L Anion Gap 23 H BUN 104 H Creatinine 6.6 H Est GFR ( Amer) 8 Est GFR (Non-Af Amer) 7 POC Glucose (mg/dL) 129 H Random Glucose 118 H Calcium 8.3 L Total Bilirubin 0.5 AST 65 H D ALT 38 Alkaline Phosphatase 190 H D C-Reactive Protein Total Protein 6.8 Albumin 3.1 Globulin 3.7 Albumin/Globulin Ratio 0.8 L Blood Type Antibody Screen Crossmatch BBK History Checked 03/16/18 03/16/18 03/16/18 08:29 10:50 10:50 WBC RBC Hgb Hct MCV MCH MCHC RDW Plt Count MPV ESR Sodium 127 L Potassium 5.5 H Chloride 92 L Carbon Dioxide 16 L Anion Gap 24 H BUN 104 H Creatinine 6.8 H Est GFR ( Amer) 8 Est GFR (Non-Af Amer) 6 POC Glucose (mg/dL) 130 H Random Glucose 140 H Calcium 8.7 Total Bilirubin 0.6 AST 69 H ALT 37 Alkaline Phosphatase 205 H C-Reactive Protein Total Protein 7.2 Albumin 3.3 Globulin 3.9 Albumin/Globulin Ratio 0.8 L Blood Type A POSITIVE Antibody Screen Negative Crossmatch See Detail BBK History Checked Patient has bt 03/16/18 03/16/18 03/16/18 11:00 11:00 15:20 WBC RBC Hgb Hct MCV MCH MCHC RDW Plt Count MPV ESR 134 H Sodium 128 L Potassium 5.5 H Chloride 93 L Carbon Dioxide 17 L Anion Gap 24 H BUN 109 H Creatinine 7.1 H Est GFR ( Amer) 7 Est GFR (Non-Af Amer) 6 POC Glucose (mg/dL) Random Glucose 145 H Calcium 8.7 Total Bilirubin AST ALT Alkaline Phosphatase C-Reactive Protein > 450.00 H Total Protein Albumin Globulin Albumin/Globulin Ratio Blood Type Antibody Screen Crossmatch BBK History Checked 03/16/18 20:15 WBC RBC Hgb Hct MCV MCH MCHC RDW Plt Count MPV ESR Sodium Potassium Chloride Carbon Dioxide Anion Gap BUN Creatinine Est GFR ( Amer) Est GFR (Non-Af Amer) POC Glucose (mg/dL) 141 H Random Glucose Calcium Total Bilirubin AST ALT Alkaline Phosphatase C-Reactive Protein Total Protein Albumin Globulin Albumin/Globulin Ratio Blood Type Antibody Screen Crossmatch BBK History Checked Assessment & Plan - Assessment and Plan (Free Text) Assessment: 57 yo F with PMH of COPD, obesity, fibromyalgia, recurrent UTI, restless leg syndrome, HTN, chronic CHF, DM, diabetic neuropathy, CKD, endometriosis, charcot foot and cellulitis of LE admitted for left foot cellulitis and started on IV antibiotics. Patient is POD #0 for I&D of the left foot. Preoperatively patient was noted to be anemic and required 1 unit of pRBC. ICU consulted due to septic shock 2/2 left cellulitis positive for staph aureus, gram positive bacteremia and hemorrhagic shock 2/2 post-op bleed. Plan: Neuro: - Patient AOx3 - Maintain normothermia CV: - Patient noted to be hypotensive likely 2/2 septic shock and hemorrhagic shock - Transfused 1 u pRBC prior to OR, will transfuse additional 1 unit - 500 cc NS bolus - Midodrine - Echo with normal EF - Maintain MAP>65 - Cardio was consulted for cardiac clearance Pulm: - CXR negative - Duoneb - Maintain O2 sat between 88-92% GI: - Protonix - NPO except for medications Renal: - JAMIL on CKD with baseline creatinine in 2's - Hyperkalemia, kayexelate given will recheck BMP - Hyponatremia, will bolus and give maintenance fluids with NS; goal raise Na 6- 8 mEq/24hrs - Renal US showed right upper pole renal cyst - Urine electrolytes, urine osmolality, and serum osmolality ordered - UA ordered - Strict I's and O's; maintain Moore catheter - Avoid nephrotoxic agents - Nephrology consulted - Urology consulted Heme: - Pt received 1 u pRBC prior to surgery - Inappropriate response as Hgb went from 7.9 to 7.5, likely due to current active bleed - Will transfuse additional 1 unit pRBC - Monitor H/H and transfuse to maintain Hgb > 7 - Plavix on hold Endo: - ISS - Accuchecks ACHS - Maintain euglycemia ID: - Leukocytosis noted with elevation post-operatively, which could be reactive - Blood culture showed gram positive cocci in clusters; repeat cultured ordered in AM - Urine culture ordered - Wound culture showed staph aureus; repeat culture in OR - Cont Daptomycin and Meropenem per ID - ID following MSK: - POD#0 for I&D of left foot - Left foot xray showed erosion of the 4th metatarsal - MRI of left foot ordered - Cont pain control prn - Podiatry following; contacted to evaluate postop bleed Patient seen and discussed in detail with Dr. Martinez. Jian Hand, DO PGY2 <Margaret Martinez - Last Filed: 03/17/18 07:05> Meds - Medications Medications: Current Medications Acetaminophen (Tylenol 325mg Tab) 650 mg PO Q6H PRN PRN Reason: Pain, moderate (4-7) Last Admin: 03/15/18 18:14 Dose: 650 mg Albuterol/Ipratropium (Duoneb 3 Mg/0.5 Mg (3 Ml) Ud) 3 ml IH Q6H PRN PRN Reason: SHORTNESS OF BREATH Last Admin: 03/16/18 21:45 Dose: 3 ml Allopurinol (Zyloprim) 100 mg PO DAILY [facility] Atorvastatin Calcium (Lipitor) 20 mg PO DAILY [facility] Last Admin: 03/16/18 09:41 Dose: 20 mg Clopidogrel Bisulfate (Plavix) 75 mg PO DAILY [facility] Last Admin: 03/15/18 10:20 Dose: 75 mg Meropenem/Sodium Chloride (Merrem Iv 500 Mg/Ns 50 Ml) 500 mg in 50 mls @ 100 mls/hr IVPB Q12 [facility]; Protocol Stop: 03/23/18 22:01 Last Admin: 03/16/18 21:11 Dose: 100 mls/hr Daptomycin 470 mg/ Sodium (Chloride) 100 mls @ 200 mls/hr IV Q48H [facility] Stop: 03/23/18 21:01 Last Admin: 03/16/18 21:11 Dose: 200 mls/hr Sodium Chloride (Sodium Chloride 0.9%) 1,000 mls @ 75 mls/hr IV .[id number] [facility] Last Admin: 03/16/18 20:00 Dose: 75 mls/hr NOREPINEPHRINE BIT/0.9 % NACL (Levophed 4 Mg/ 250 Ml Ns Premixed) 4 mg in 250 mls @ 15 mls/hr IV .[id number] PRN; Protocol PRN Reason: TITRATE PER MD ORDER Last Admin: 03/17/18 00:55 Dose: 4 mcg/min, 15 mls/hr Sodium Chloride (Sodium Chloride 0.9%) 500 mls @ 999 mls/hr IV .[id number] [facility] Stop: 03/17/18 07:15 Insulin Human Lispro (Humalog Med) 0 units SC ACHS [facility] Last Admin: 03/16/18 21:10 Dose: Not Given Montelukast Sodium (Singulair) 10 mg PO HS [facility] Last Admin: 03/16/18 21:13 Dose: 10 mg Home Med - Fluvoxamine [Luvox] 25 Mg 25 mg PO BID [facility] Last Admin: 03/16/18 20:28 Dose: Not Given Home Med - Umeclidinium [place] [Incruse Ellipta] 1 Puff 1 puff IH [facility] Last Admin: 03/16/18 07:14 Dose: Not Given Nortriptyline HCl (Pamelor) 50 mg PO [facility] Last Admin: 03/17/18 00:41 Dose: Not Given Oxychlorosene Sodium (Clorpactin Wcs-90) 2 gm TOP Q12 [facility] Oxycodone/Acetaminophen (Percocet 5/325 Mg Tab) 1 tab PO Q6H PRN PRN Reason: pain Stop: 03/18/18 21:56 Last Admin: 03/15/18 23:15 Dose: 1 tab Oxymetazoline HCl (Afrin 0.05%) 0 ml NS TID [facility] Last Admin: 03/16/18 20:29 Dose: Not Given Pantoprazole Sodium (Protonix Ec Tab) 20 mg PO ACB [facility] Last Admin: 03/16/18 09:41 Dose: 20 mg Quetiapine Fumarate (Seroquel Xr) 100 mg PO [facility]; Protocol Last Admin: 03/17/18 00:42 Dose: Not Given Silver Sulfadiazine (Silvadene 1% 25 Gm) 1 gm TP BID [facility] Last Admin: 03/16/18 20:28 Dose: Not Given Tizanidine HCl (Zanaflex) 2 mg PO Q6 [facility] Last Admin: 03/17/18 07:02 Dose: Not Given Results - Vital Signs Recent Vital Signs: Last Vital Signs Temp 98.3 F 03/17/18 02:00 Pulse 101 H 03/17/18 06:00 Resp 17 03/17/18 01:59 BP 97/45 L 03/17/18 02:00 Pulse Ox 97 03/17/18 01:59 - Labs Result Diagrams: 03/17/18 06:30 03/16/18 20:36 Labs: Laboratory Results - last 24 hr 03/16/18 03/16/18 03/16/18 07:00 07:00 08:29 WBC 23.4 H D RBC 2.83 L Hgb 7.9 L Hct 24.6 L MCV 86.9 MCH 27.9 MCHC 32.1 RDW 17.3 H Plt Count 329 MPV 11.0 Logan % (Auto) Eos % (Auto) Baso % (Auto) Logan # (Auto) Eos # (Auto) Baso # (Auto) ESR Sodium 127 L Potassium 5.6 H* Chloride 93 L Carbon Dioxide 16 L Anion Gap 23 H BUN 104 H Creatinine 6.6 H Est GFR ( Amer) 8 Est GFR (Non-Af Amer) 7 POC Glucose (mg/dL) 130 H Random Glucose 118 H Serum Osmolality Calcium 8.3 L Total Bilirubin 0.5 AST 65 H D ALT 38 Alkaline Phosphatase 190 H D C-Reactive Protein Total Protein 6.8 Albumin 3.1 Globulin 3.7 Albumin/Globulin Ratio 0.8 L Blood Type Antibody Screen Crossmatch BBK History Checked 03/16/18 03/16/18 03/16/18 10:50 10:50 11:00 WBC RBC Hgb Hct MCV MCH MCHC RDW Plt Count MPV Logan % (Auto) Eos % (Auto) Baso % (Auto) Logan # (Auto) Eos # (Auto) Baso # (Auto) ESR 134 H Sodium 127 L Potassium 5.5 H Chloride 92 L Carbon Dioxide 16 L Anion Gap 24 H BUN 104 H Creatinine 6.8 H Est GFR ( Amer) 8 Est GFR (Non-Af Amer) 6 POC Glucose (mg/dL) Random Glucose 140 H Serum Osmolality Calcium 8.7 Total Bilirubin 0.6 AST 69 H ALT 37 Alkaline Phosphatase 205 H C-Reactive Protein Total Protein 7.2 Albumin 3.3 Globulin 3.9 Albumin/Globulin Ratio 0.8 L Blood Type A POSITIVE Antibody Screen Negative Crossmatch See Detail BBK History Checked Patient has bt 03/16/18 03/16/18 03/16/18 11:00 15:20 20:15 WBC RBC Hgb Hct MCV MCH MCHC RDW Plt Count MPV Logan % (Auto) Eos % (Auto) Baso % (Auto) Logan # (Auto) Eos # (Auto) Baso # (Auto) ESR Sodium 128 L Potassium 5.5 H Chloride 93 L Carbon Dioxide 17 L Anion Gap 24 H BUN 109 H Creatinine 7.1 H Est GFR ( Amer) 7 Est GFR (Non-Af Amer) 6 POC Glucose (mg/dL) 141 H Random Glucose 145 H Serum Osmolality Calcium 8.7 Total Bilirubin AST ALT Alkaline Phosphatase C-Reactive Protein > 450.00 H Total Protein Albumin Globulin Albumin/Globulin Ratio Blood Type Antibody Screen Crossmatch BBK History Checked 1103/16/18 03/16/18 20:36 20:36 20:36 WBC 30.5 H* D RBC 2.66 L Hgb 7.5 L Hct 22.7 L MCV 85.3 MCH 28.2 MCHC 33.0 RDW 17.0 H Plt Count 292 MPV 9.6 Logan % (Auto) Eos % (Auto) Baso % (Auto) Logan # (Auto) Eos # (Auto) Baso # (Auto) ESR Sodium 127 L Potassium 5.5 H Chloride 96 L Carbon Dioxide 15 L Anion Gap 21 H BUN 107 H Creatinine 6.7 H Est GFR ( Amer) 8 Est GFR (Non-Af Amer) 6 POC Glucose (mg/dL) Random Glucose 138 H Serum Osmolality 300 Calcium 7.7 L Total Bilirubin AST ALT Alkaline Phosphatase C-Reactive Protein Total Protein Albumin Globulin Albumin/Globulin Ratio Blood Type Antibody Screen Crossmatch BBK History Checked 03/17/18 03/17/18 01:45 06:30 WBC 33.4 H* 30.9 H* RBC 2.76 L 2.87 L Hgb 8.0 L 8.3 L Hct 23.9 L 24.6 L MCV 86.6 85.7 MCH 29.0 28.9 MCHC 33.5 33.7 RDW 16.5 H 16.6 H Plt Count 260 284 MPV 9.8 9.9 Logan % (Auto) 3.9 Eos % (Auto) 0.4 L Baso % (Auto) 0.1 Logan # (Auto) 1.2 H Eos # (Auto) 0.1 Baso # (Auto) 0.03 ESR Sodium Potassium Chloride Carbon Dioxide Anion Gap BUN Creatinine Est GFR ( Amer) Est GFR (Non-Af Amer) POC Glucose (mg/dL) Random Glucose Serum Osmolality Calcium Total Bilirubin AST ALT Alkaline Phosphatase C-Reactive Protein Total Protein Albumin Globulin Albumin/Globulin Ratio Blood Type Antibody Screen Crossmatch BBK History Checked Attending/Attestation - Attestation I have personally seen and examined this patient.: Yes I have fully participated in the care of the patient.: Yes I have reviewed all pertinent clinical information: Yes Notes (Text): 03/17/18 07:04 Septic shock mgmt as above on levophed
[2018-03-16 20:42] LABS: WHITE BLOOD COUNT 30.5 10^3/uL (4.5-11.0)
[2018-03-16 20:52] LABS: CALCIUM 7.7 mg/dL (8.4-10.5)
[2018-03-16] MEDS ORDERED: HYDROmorphone 0.5 mg/0.5 ml ISec IVP STA (21:16)
[2018-03-16] MEDS ORDERED: Dextrose 50% SYRINGE Inj (50 ml) IVP ONE (21:21)
[2018-03-16] MEDS ORDERED: Insulin Regular 1 UNITS/0.01 ML ML SC ONE (21:23)
--- NOTE | 2018-03-16 21:33 | CON ---
DATE OF CONSULTATION: 03/16/2018 REASON FOR CONSULTATION: Preoperative evaluation. HISTORY OF PRESENT ILLNESS: The patient is a 57-year-old female who has a history of diabetes mellitus with Charcot feet secondary to diabetic neuropathy. The patient has a history of coronary artery disease as well as coronary artery stenting some 20 years ago according to her, has a history of DVT and pulmonary embolism about 20 years ago, presented because of the left foot infection and is scheduled for incision and drainage this afternoon. The patient denies chest pain or shortness of breath on specifying. PAST MEDICAL HISTORY: History of coronary artery stenting 20 years ago, history of DVT and pulmonary embolism 20 years ago. No IVC filter was placed. Longstanding history of diabetes mellitus. SOCIAL HISTORY: Nonsmoker, nondrinker. MEDICATIONS: Coreg 3.125 mg twice a day, daptomycin 470 mg every 48 hours, Lasix 40 mg intravenously twice weekly, Lipitor 20 mg once a day, meropenem 500 mg intravenously every 12 hours, Pamelor 50 mg h.s. daily, Plavix 75 mg once a day, Protonix 20 mg p.o. once a day, Singulair 10 mg h.s. daily, Zyloprim 300 mg daily. REVIEW OF SYSTEMS: No fever or chills. No nausea or vomiting. No dizziness or syncope. PHYSICAL EXAMINATION: GENERAL: The patient is a middle-aged female who does not appear to be in acute distress. VITAL SIGNS: Blood pressure 98/51, heart rate 93, temperature 98.1, respirations 20. HEENT: Pale conjunctivae. CHEST: Clear. HEART: S1 and S2 regular. ABDOMEN: Soft. EXTREMITIES: 2+ pitting edema and dressings applied to both feet. LABORATORY DATA: Hemoglobin and hematocrit 7.9 and 24.6, white count 23.4, platelet count 329,000. Today's SMA-7, sodium 127, potassium 5.5, chloride 92, CO2 of 16, glucose 140, BUN 104, creatinine 6.8. INR is 1.68. PTT 37.4. Renal ultrasound revealed bilateral cortical thinning. EKG revealed sinus rhythm at a rate of 91. Echocardiographic study performed today revealed mild concentric LVH with normal ejection fraction, mild pulmonary hypertension, [id number] mitral insufficiency with mild tricuspid insufficiency and mild pulmonary insufficiency. ASSESSMENT: 1. Left foot cellulitis. 2. Bacteremia with Gram-positive cocci in clusters. The left foot is most likely the primary source for the bacteremia. 3. Chronic renal insufficiency. 4. Hyperkalemia. 5. Anemia. RECOMMENDATIONS: Continue current Coreg at 3.125 mg once a day. Continue IV antibiotics including IV daptomycin and IV meropenem. The patient can undergo incision and drainage from the cardiac point of view. However, hyperkalemia needs to be corrected prior to the surgery and the patient did receive 30 g Kayexalate and a stat BMP will be obtained. Close preoperative blood pressure average monitoring with postoperative telemetry or ICU monitoring depending on the outcome. Terry Moulton MD
[2018-03-17] MEDS ORDERED: Sodium Chloride 0.9% 500 ML IV STA ×2 (00:06→06:45)
[2018-03-17] MEDS: QUEtiapine 50 mg XR Tab PO SCH ×2 (00:42→21:56)
--- NOTE | 2018-03-17 00:46 | PCM.PROC ---
<Baldomero Hand - Last Filed: 03/17/18 00:43> Procedures Attestation:: I certify that I have explained the specified Operation(s) or Procedure(s), risks, benefits and reasonable alternatives to the Patient and/or other person responsible. The opportunity was given to ask questions and all questions answered - Central Line Placement Right Internal Jugular Triple Lumen Catheter Aseptic technique was employed throughout the procedure: Hand Hygiene done prior to procedure, Full sterile barriers (mask, hair cover, sterile gown, sterile gloves), Full body sterile drape, Chloraprep Antiseptic: 30 second prep for IJ or SC sites CVP Time Out Performed: Yes Pt. Placed on Pulse Ox Monitor: Yes Central Line Prep: Chlorhexidine-Alcohol Combination Local Anesthesia Used: Lidocaine 1% Amount of Anesthesia Used (mls): 3 Ultrasound Used for Placement: Yes Central Line Lumen Inserted: triple Central Line Length: 20 cm Post Procedure: Sutured in Place, Good Blood Return, All Ports Aspirated, Flushed, Capped, Sterile Dressing Applied Secured by: Suture Post procedure dressing: Clear vapor permeable, Chlorhexidine disc (Biopatch) Post Procedure X-Ray: Yes Patient Tolerated Procedure: Well Immediate Complications: None Additional Comments: Emergent placement of central venous line due to septic shock. Supervised by Dr. Margaret Martinez. <Margaret Martinez - Last Filed: 03/17/18 19:16> Attending/Attestation - Attestation I have personally seen and examined this patient.: Yes I have fully participated in the care of the patient.: Yes I have reviewed all pertinent clinical information, including history, physical exam and plan: Yes
[2018-03-17] MEDS: NOREPINEPHRINE BIT/0.9 % NACL 4 MG/250 ML BAG IV PRN ×3 (00:55→16:50)
[2018-03-17 02:00] LABS: MEAN CELL VOLUME 86.6 fl (80.0-105.0); MEAN CORPUSCULAR HGB CONC 33.5 g/dl (31.0-37.0); MEAN PLATELET VOLUME 9.8 fl (7.0-11.0); RBC 2.76 10^6/uL (3.5-6.1); RED CELL DISTRIBUTION WIDTH 16.5 % (11.5-14.5)
[2018-03-17 02:15] LABS: WHITE BLOOD COUNT 33.4 10^3/uL (4.5-11.0)
[2018-03-17 06:52] LABS: BASO # 0.03 K/mm3 (0.0-2.0); BASO % 0.1 % (0.0-3.0); EOS # 0.1 (0.0-0.7); EOS % 0.4 % (1.5-5.0); HEMOGLOBIN 8.3 g/dL (12.0-16.0); MEAN CELL VOLUME 85.7 fl (80.0-105.0); MEAN CORPUSCULAR HEMOGLOBIN 28.9 pg (25.0-35.0); MEAN CORPUSCULAR HGB CONC 33.7 g/dl (31.0-37.0); MEAN PLATELET VOLUME 9.9 fl (7.0-11.0); MONO # 1.2 (0.1-0.6); MONO % 3.9 % (1.0-6.0); PLATELET COUNT 284 10^3/uL (120.0-450.0); RBC 2.87 10^6/uL (3.5-6.1); RED CELL DISTRIBUTION WIDTH 16.6 % (11.5-14.5)
[2018-03-17 07:01] LABS: WHITE BLOOD COUNT 30.9 10^3/uL (4.5-11.0)
[2018-03-17 07:46] LABS: CREATININE,RANDOM URINE 82 mg/dL
--- NOTE | 2018-03-17 07:50 | PCM.URO ---
Urology Progress Note - Objective Lab Studies: Reviewed (gu dx: hematuria gu plans: currently no blood maybe trauma related. will follow along and make recommedations full note to be ditated) Lab Results Last 24 Hours: Laboratory Results - last 24 hr 03/16/18 03/16/18 03/16/18 07:00 08:29 10:50 WBC RBC Hgb Hct MCV MCH MCHC RDW Plt Count MPV [place] % (Auto) Eos % (Auto) Baso % (Auto) [place] # (Auto) Eos # (Auto) Baso # (Auto) ESR Sodium 127 L Potassium 5.6 H* Chloride 93 L Carbon Dioxide 16 L Anion Gap 23 H BUN 104 H Creatinine 6.6 H Est GFR ( Amer) 8 Est GFR (Non-Af Amer) 7 POC Glucose (mg/dL) 130 H Random Glucose 118 H Serum Osmolality Calcium 8.3 L Total Bilirubin 0.5 AST 65 H D ALT 38 Alkaline Phosphatase 190 H D C-Reactive Protein Total Protein 6.8 Albumin 3.1 Globulin 3.7 Albumin/Globulin Ratio 0.8 L Ur Random Creatinine Ur Random Sodium Ur Random Urea Nitrogn Blood Type A POSITIVE Antibody Screen Negative Crossmatch See Detail BBK History Checked Patient has bt 03/16/18 03/16/18 03/16/18 10:50 11:00 11:00 WBC RBC Hgb Hct MCV MCH MCHC RDW Plt Count MPV [place] % (Auto) Eos % (Auto) Baso % (Auto) [place] # (Auto) Eos # (Auto) Baso # (Auto) ESR 134 H Sodium 127 L Potassium 5.5 H Chloride 92 L Carbon Dioxide 16 L Anion Gap 24 H BUN 104 H Creatinine 6.8 H Est GFR ( Amer) 8 Est GFR (Non-Af Amer) 6 POC Glucose (mg/dL) Random Glucose 140 H Serum Osmolality Calcium 8.7 Total Bilirubin 0.6 AST 69 H ALT 37 Alkaline Phosphatase 205 H C-Reactive Protein > 450.00 H Total Protein 7.2 Albumin 3.3 Globulin 3.9 Albumin/Globulin Ratio 0.8 L Ur Random Creatinine Ur Random Sodium Ur Random Urea Nitrogn Blood Type Antibody Screen Crossmatch BBK History Checked 03/16/18 03/16/18 03/16/18 15:20 20:15 20:36 WBC 30.5 H* D RBC 2.66 L Hgb 7.5 L Hct 22.7 L MCV 85.3 MCH 28.2 MCHC 33.0 RDW 17.0 H Plt Count 292 MPV 9.6 [place] % (Auto) Eos % (Auto) Baso % (Auto) [place] # (Auto) Eos # (Auto) Baso # (Auto) ESR Sodium 128 L Potassium 5.5 H Chloride 93 L Carbon Dioxide 17 L Anion Gap 24 H BUN 109 H Creatinine 7.1 H Est GFR ( Amer) 7 Est GFR (Non-Af Amer) 6 POC Glucose (mg/dL) 141 H Random Glucose 145 H Serum Osmolality Calcium 8.7 Total Bilirubin AST ALT Alkaline Phosphatase C-Reactive Protein Total Protein Albumin Globulin Albumin/Globulin Ratio Ur Random Creatinine Ur Random Sodium Ur Random Urea Nitrogn Blood Type Antibody Screen Crossmatch BBK History Checked 03/16/18 03/16/18 03/17/18 20:36 20:36 01:45 WBC 33.4 H* RBC 2.76 L Hgb 8.0 L Hct 23.9 L MCV 86.6 MCH 29.0 MCHC 33.5 RDW 16.5 H Plt Count 260 MPV 9.8 [place] % (Auto) Eos % (Auto) Baso % (Auto) [place] # (Auto) Eos # (Auto) Baso # (Auto) ESR Sodium 127 L Potassium 5.5 H Chloride 96 L Carbon Dioxide 15 L Anion Gap 21 H BUN 107 H Creatinine 6.7 H Est GFR ( Amer) 8 Est GFR (Non-Af Amer) 6 POC Glucose (mg/dL) Random Glucose 138 H Serum Osmolality 300 Calcium 7.7 L Total Bilirubin AST ALT Alkaline Phosphatase C-Reactive Protein Total Protein Albumin Globulin Albumin/Globulin Ratio Ur Random Creatinine Ur Random Sodium Ur Random Urea Nitrogn Blood Type Antibody Screen Crossmatch BBK History Checked 03/17/18 03/17/18 06:30 06:30 WBC 30.9 H* RBC 2.87 L Hgb 8.3 L Hct 24.6 L MCV 85.7 MCH 28.9 MCHC 33.7 RDW 16.6 H Plt Count 284 MPV 9.9 [place] % (Auto) 3.9 Eos % (Auto) 0.4 L Baso % (Auto) 0.1 [place] # (Auto) 1.2 H Eos # (Auto) 0.1 Baso # (Auto) 0.03 ESR Sodium Potassium Chloride Carbon Dioxide Anion Gap BUN Creatinine Est GFR ( Amer) Est GFR (Non-Af Amer) POC Glucose (mg/dL) Random Glucose Serum Osmolality Calcium Total Bilirubin AST ALT Alkaline Phosphatase C-Reactive Protein Total Protein Albumin Globulin Albumin/Globulin Ratio Ur Random Creatinine 82 Ur Random Sodium 40 Ur Random Urea Nitrogn 305 Blood Type Antibody Screen Crossmatch BBK History Checked Intake & Output: Intake & Output 03/16/18 03/17/18 03/17/18 18:59 06:59 18:59 Intake Total 50 1823 Output Total 50 Balance 50 1773 Weight 172 lb 199 lb Intake: IV 1823 Right Hand 1675 Right Internal Jugular 148 Oral 0 Blood Product 0 Apheresis Rbc Cp2d As3 Lr 0 2nd Unit [id number] Other 50 Apheresis Rbc Cp2d As3 Lr 50 2nd Unit [id number] Output: Urine 50 Urethral ([place]) 50 Stool 0 Vital Signs: Vital Signs - 24 hr 03/16/18 03/16/18 03/16/18 09:40 09:42 14:00 Temperature 97.9 F Pulse Rate 100 H 100 H 92 H Respiratory 20 Rate Blood Pressure 89/50 L 89/50 L 110/62 O2 Sat by Pulse 94 L Oximetry 03/16/18 03/16/18 03/16/18 16:09 16:29 17:11 Temperature 98 F 97.8 F 98 F Pulse Rate 90 89 89 Respiratory 18 18 18 Rate Blood Pressure 105/57 L 97/53 L 101/57 L O2 Sat by Pulse Oximetry 03/16/18 03/16/18 03/16/18 18:55 19:10 19:25 Temperature 97.3 F L 97.3 F L 97.3 F L Pulse Rate 89 88 89 Respiratory 16 16 16 Rate Blood Pressure 87/49 L 81/45 L 72/42 L O2 Sat by Pulse 96 97 96 Oximetry 03/16/18 03/16/18 03/16/18 19:38 20:00 21:00 Temperature 97.3 F L 98.2 F Pulse Rate 89 Respiratory 16 Rate Blood Pressure 81/42 L 68/30 L O2 Sat by Pulse 96 Oximetry 03/16/18 03/16/18 03/16/18 21:01 21:02 21:03 Temperature Pulse Rate 86 86 86 Respiratory 9 L 16 16 Rate Blood Pressure O2 Sat by Pulse Oximetry 03/16/18 03/16/18 03/16/18 21:04 21:07 21:10 Temperature Pulse Rate 87 86 88 Respiratory 18 18 Rate Blood Pressure 74/37 L 76/40 L O2 Sat by Pulse 98 98 Oximetry 03/16/18 03/16/18 03/16/18 21:13 21:20 21:30 Temperature Pulse Rate 89 91 H 88 Respiratory 17 19 15 Rate Blood Pressure 78/39 L 67/34 L O2 Sat by Pulse 98 98 99 Oximetry 03/16/18 03/16/18 03/16/18 21:40 21:45 21:50 Temperature Pulse Rate 88 87 87 Respiratory 18 16 Rate Blood Pressure 72/37 L O2 Sat by Pulse 99 100 100 Oximetry 03/16/18 03/16/18 03/16/18 22:00 22:08 22:10 Temperature 97.3 F L Pulse Rate 87 86 86 Respiratory 17 22 Rate Blood Pressure 65/33 L 87/37 L O2 Sat by Pulse 100 95 92 L Oximetry 03/16/18 03/16/18 03/16/18 22:14 22:15 22:20 Temperature Pulse Rate 83 83 87 Respiratory 17 16 23 Rate Blood Pressure 84/35 L O2 Sat by Pulse 89 L 93 L Oximetry 03/16/18 03/16/18 03/16/18 22:29 22:30 22:36 Temperature Pulse Rate 86 86 Respiratory 12 22 Rate Blood Pressure 92/44 L 85/43 L O2 Sat by Pulse 100 100 Oximetry 03/16/18 03/16/18 03/16/18 22:40 22:42 22:43 Temperature Pulse Rate 87 86 87 Respiratory 16 23 18 Rate Blood Pressure 80/41 L O2 Sat by Pulse 100 97 Oximetry 03/16/18 03/16/18 03/16/18 22:44 22:45 22:50 Temperature Pulse Rate 87 88 87 Respiratory 15 22 15 Rate Blood Pressure 81/38 L 86/40 L O2 Sat by Pulse 100 98 100 Oximetry 03/16/18 03/16/18 03/16/18 22:59 23:00 23:07 Temperature Pulse Rate 89 90 89 Respiratory 20 15 15 Rate Blood Pressure 83/40 L 86/42 L 87/41 L O2 Sat by Pulse 100 91 L 99 Oximetry 03/16/18 03/16/18 03/16/18 23:10 23:15 23:20 Temperature Pulse Rate 88 89 92 H Respiratory 24 17 13 Rate Blood Pressure 96/36 L O2 Sat by Pulse 99 91 L 99 Oximetry 03/16/18 03/17/18 03/17/18 23:31 00:00 00:10 Temperature 98.2 F 98.2 F Pulse Rate Respiratory Rate Blood Pressure 106/42 L O2 Sat by Pulse 93 L 97 Oximetry 03/17/18 03/17/18 03/17/18 00:14 00:15 00:20 Temperature Pulse Rate 90 89 Respiratory 18 14 Rate Blood Pressure 103/42 L O2 Sat by Pulse 97 98 Oximetry 03/17/18 03/17/18 03/17/18 00:29 00:30 00:40 Temperature Pulse Rate 88 87 Respiratory 13 12 Rate Blood Pressure 87/37 L O2 Sat by Pulse 98 98 Oximetry 03/17/18 03/17/18 03/17/18 00:45 00:50 00:59 Temperature Pulse Rate 87 86 88 Respiratory 12 13 12 Rate Blood Pressure 83/42 L O2 Sat by Pulse 89 L 98 98 Oximetry 03/17/18 03/17/18 03/17/18 01:00 01:09 01:10 Temperature Pulse Rate 89 90 Respiratory 15 18 Rate Blood Pressure 84/37 L 97/43 L O2 Sat by Pulse 97 98 Oximetry 03/17/18 03/17/18 03/17/18 01:14 01:15 01:20 Temperature Pulse Rate 90 87 Respiratory 23 16 Rate Blood Pressure 98/45 L O2 Sat by Pulse 98 97 Oximetry 03/17/18 03/17/18 03/17/18 01:25 01:26 01:27 Temperature Pulse Rate 86 92 H 85 Respiratory 33 H 17 11 L Rate Blood Pressure O2 Sat by Pulse Oximetry 03/17/18 03/17/18 03/17/18 01:28 01:29 01:30 Temperature Pulse Rate 86 85 Respiratory 19 25 H Rate Blood Pressure 89/44 L O2 Sat by Pulse Oximetry 03/17/18 03/17/18 03/17/18 01:31 01:32 01:33 Temperature Pulse Rate 85 85 85 Respiratory 18 14 14 Rate Blood Pressure O2 Sat by Pulse Oximetry 03/17/18 03/17/18 03/17/18 01:34 01:35 01:37 Temperature Pulse Rate 85 85 84 Respiratory 18 20 16 Rate Blood Pressure O2 Sat by Pulse Oximetry 03/17/18 03/17/18 03/17/18 01:38 01:40 01:44 Temperature Pulse Rate 90 122 H 83 Respiratory 13 14 13 Rate Blood Pressure O2 Sat by Pulse 81 L 99 Oximetry 03/17/18 03/17/18 03/17/18 01:45 01:47 01:48 Temperature Pulse Rate 83 84 83 Respiratory 24 14 12 Rate Blood Pressure 82/36 L O2 Sat by Pulse Oximetry 03/17/18 03/17/18 03/17/18 01:50 01:56 01:59 Temperature Pulse Rate 85 87 85 Respiratory 17 18 17 Rate Blood Pressure 97/47 L O2 Sat by Pulse 100 96 97 Oximetry 03/17/18 03/17/18 03/17/18 02:00 04:00 06:00 Temperature 98.3 F 98.4 F Pulse Rate 88 101 H Respiratory Rate Blood Pressure 97/45 L O2 Sat by Pulse Oximetry
--- NOTE | 2018-03-17 08:19 | PN ---
DATE: 03/17/2018 [employer] NOTE LOCATION: [facility]. SUBJECTIVE: The patient is lethargic. Does respond slightly to spoken word and painful stimuli. She is presently on Levophed for blood pressure support, O2 via nasal cannula. O2 saturation is stable. Vital signs are stable with the pressors. The patient was evaluated closely overnight, was given 2 units of packed red blood cells. PHYSICAL EXAMINATION: VITAL SIGNS: Physical exam note that her temperature is 98.3, her pulse is 101, respirations are 17 and BP is 102/45. SKIN: Warm and dry. HEENT: Head atraumatic, normocephalic. Eyes reactive to light. Ears, nose and throat seemed to be within normal limits. NECK: Supple. No JVD. No thyroid enlargement. No lymph nodes. HEART: Has a regular rate and rhythm. Normal S1, S2, but mildly tachycardic. LUNGS: Reveal decreased breath sounds at the bases. No significant rhonchi. ABDOMEN: Obese, slightly distended. Decreased bowel sounds, but soft. GENITALIA AND RECTAL: Deferred. MUSCULOSKELETAL: No joint deformities. EXTREMITIES: Reveal postsurgical area in the left lower extremity around the foot and positive lower extremity edema. NEUROLOGICALLY: The patient is very lethargic, is arousable to the touch and painful stimuli. Seems to be moving all extremities. LABORATORY DATA: As far as her laboratories are concerned, her white count is 30.9, hemoglobin is 8.3, hematocrit 24.6 and platelets of 284,000. The patient's sodium is 127, potassium 5.5, chloride 92, CO2 of 16 with anion gap of 24, BUN of 104 and creatinine of 6.8 with glucose of 140. Chest x-ray reveals that there is left lung infiltrative processes, may be secondary to pulmonary edema or possible infection. This is an unofficial reading. IMPRESSION: As far as my impression, this patient has sepsis, possible septic shock with hypotension, bacteremia, gram positive. The patient has anemia and is status post left lower extremity debridement for cellulitis and ulcerations. The patient has a Charcot foot. Has a history of cardiomyopathy, diabetes, congestive heart failure, renal failure, chronic obstructive pulmonary disease, fibromyalgia, obesity, left lower extremity cellulitis, hypertension and is noted to be hyponatremic. PLAN: As far as our plan, we will continue to observe the patient closely in the Intensive Care Unit. The patient is being followed by multiple subspecialists, Infectious Disease, Podiatry. Note that she is on DuoNeb for bronchodilatation, Humalog, insulin as well as Lipitor, meropenem, norepinephrine, Plavix is on hold at this time, Protonix, Singulair, normal saline IV solution, vancomycin. We will follow her CBC, her hemoglobin and continue with O2 via nasal cannula, continue with aggressive pulmonary toilet and we will continue to follow closely with the consultants, ID, Renal, Surgery, Cardiology and to continue to treat aggressively. Ken Byrne MD
[2018-03-17] MEDS: Insulin Lispro (humaLOG) MEDIUM Coverage SC SCH ×5 (08:21→22:19)
[2018-03-17] MEDS: Pantoprazole 20 mg EC Tab PO SCH (08:22)
[2018-03-17 08:30] LABS: ALB/GLOB RATIO 0.8 (1.1-1.8); ALBUMIN 2.7 g/dL (3.0-4.8); CALCIUM 7.7 mg/dL (8.4-10.5)
[2018-03-17 08:34] LABS: OSMOLALITY,URINE 296 mosm/kg (300-1000)
[2018-03-17] MEDS ORDERED: Insulin Regular 1 UNITS/0.01 ML ML IV STA (08:37)
[2018-03-17] MEDS ORDERED: Dextrose 50% SYRINGE Inj (50 ml) IVP STA (08:44)
--- NOTE | 2018-03-17 09:22 | PN ---
DATE: 03/17/2018 SUBJECTIVE: The patient is in bed, in no acute distress. PHYSICAL EXAMINATION: VITAL SIGNS: On exam, temperature is 98, blood pressure is 97/40, respiratory rate of 18. HEENT: Examination of HEENT is unremarkable. NECK: Supple. LUNGS: Have decreased breath sounds. HEART: Normal S1, S2. ABDOMEN: Soft, nontender. LABORATORY DATA: Laboratory examination reveals a white count of 30,000, hemoglobin of 8, platelets of 284. BUN of 103, creatinine 7.1. Chemistries are noted. Urinalysis is noted. Microbiology reveals the patient has Staph aureus in the wound and Staph aureus in the blood by PNA FISH. Sensitivity is pending for both. Currently on daptomycin and meropenem. ASSESSMENT AND PLAN: A 57-year-old with diabetes mellitus, chronic obstructive lung disease, fibromyalgia, restless legs syndrome, hypertension, congestive heart failure, kidney stone, endometritis, kidney disease. Admitted with severe sepsis with Staphylococcus aureus bacteremia and staph aureus from the foot abscess, acute kidney injury on top of chronic kidney injury, status post incision and drainage of the left foot abscess by Podiatry and by Dr. Little as per my discussion with him yesterday. Currently, on daptomycin and meropenem. Awaiting for this sensitivity of the Staphylococcus aureus both in the blood and the foot. May need further surgical intervention of the foot. We will follow with you. The patient at this time is on pressors because of hypotension, really no longer severe sepsis, now septic shock secondary to Staphylococcus aureus bacteremia of the left foot abscess, status post incision and drainage with acute kidney injury. On daptomycin and meropenem. Waiting for identification of Staphylococcus aureus in the blood and the wound. Terrance Kent MD
--- NOTE | 2018-03-17 09:46 | RAD ---
HISTORY: s/p RIJ COMPARISON: Chest x-ray performed 03/17/18 at 0044 hr TECHNIQUE: Chest, one view. FINDINGS: Examination limited by habitus, hypoinflation, and patient obliquity. Right IJ approach central venous catheter terminates at the expected location of the SVC. LUNGS: Moderate pulmonary venous congestion. No focal consolidation. PLEURA: Trace fluid along the right fissure. Probable small pleural effusions. No definite pneumothorax . CARDIOVASCULAR: Cardiomegaly. No significant atherosclerotic calcification present. OSSEOUS STRUCTURES: Degenerative changes. VISUALIZED UPPER ABDOMEN: Unremarkable. OTHER FINDINGS: None. IMPRESSION: Cardiomegaly. Moderate pulmonary venous congestion. Probable small pleural effusions. Hypoinflation. Right IJ approach central venous catheter terminates at the expected location of the SVC.
[2018-03-17 09:52] LABS: ARTERIAL BLOOD GAS HCO3 12.4 mmol/L (21-28); ARTERIAL BLOOD GAS HEMOGLOBIN 8.1 g/dL (11.7-17.4); ARTERIAL BLOOD GAS O2 CAPACITY 11.2 mL/dl (16-24); ARTERIAL BLOOD GAS O2 CONTENT 10.9 ML/dl (15-23); ARTERIAL BLOOD GAS O2 SAT 96.9 % (95-98); ARTERIAL BLOOD GAS PCO2 38 mm/Hg (35-45); ARTERIAL BLOOD GAS TCO2 13.6 mmol.L (22-28)
[2018-03-17 09:57] LABS: ARTERIAL BLOOD GAS PH 7.12 (7.35-7.45)
[2018-03-17] MEDS ORDERED: Sodium Bicarbonate (8.4%) 50 Meq Syringe IVP STA (10:06)
--- NOTE | 2018-03-17 10:06 | RAD ---
HISTORY: s/p RIJ COMPARISON: Chest x-ray performed 03/14/18 and subsequent chest x-ray performed 03/17/18 1:38 a.m. TECHNIQUE: Chest, one view. FINDINGS: Right IJ approach central venous catheter extends to the right atrium. External wires and leads obscure evaluation of the underlying parenchyma. LUNGS: Moderate pulmonary venous congestion. Left basilar atelectasis. Small left pleural effusion. No definite pneumothorax. CARDIOVASCULAR: Cardiomegaly. No significant atherosclerotic calcification present. OSSEOUS STRUCTURES: Degenerative changes. VISUALIZED UPPER ABDOMEN: Unremarkable. OTHER FINDINGS: None. IMPRESSION: Right IJ approach central venous catheter extends to the right atrium. Cardiomegaly. Moderate pulmonary venous congestion. Small left pleural effusion.
[2018-03-17] MEDS: MEROPENEM 500 MG in NS 500 MG/50 ML BAG IVPB SCH ×2 (10:12→21:59)
[2018-03-17] MEDS ORDERED: Sodium Bicarbonate 8.4% 150 MEQ in Dextrose 5% In Water 1,000 ML IV SCH (10:15)
[2018-03-17] MEDS: Oxychlorosene Topical 2 gm Packet TOP SCH (10:23)
[2018-03-17] MEDS: Silver Sulfadiazine 1% Cream (25 gm) TP SCH ×2 (10:28→17:04)
[2018-03-17] MEDS: FLUVOXAMINE 25 MG PO SCH ×2 (10:28→17:03)
[2018-03-17] MEDS: Sodium Bicarbonate 8.4% 100 MEQ in Dextrose 5% In Water 1,000 ML IV SCH (10:39)
[2018-03-17] MEDS: Oxymetazoline 0.05% Nasal Spray (30 ml) NS SCH ×3 (10:40→18:07)
--- NOTE | 2018-03-17 11:26 | CP.PCM.CON ---
History of Present Illness - History of Present Illness History of Present Illness: Surgery Consult note- Dr. Boone 57F pmhx significant for COPD, Recurrent UTI, HTN, CHF, DM, CKD, cellulitis of LLE s/p I&D by Podiatry this visit now in ICU with spetic shock 2/2 Staph aureus bacteremia. Currently JAMIL on CKD. Currently patient on Levophed and IVAbx. Surgery was consulted for temporary dialysis catheter placement. During encounter patient is AAOx3 however slow to respond. LLE foot wrapped s/p I&D by podiatry. Currenlty denies n/v/d/Chest pain. PMH: Stated above, charcot foot, endometriosis, diabetic neuropathy PSH: oopherectomy, laparotomy, laparoscopy ALL: Theophylline, ceftaroline, iodine Socialhx: denies tobacco, etoh, recreational drug use FH: non-contributory Review of Systems - Review of Systems All systems: reviewed and no additional remarkable complaints except - Constitutional Constitutional: As Per HPI Past Patient History - Infectious Disease Hx of Infectious Diseases: None - Tetanus Immunizations Tetanus Immunization: Unknown - Past Medical History & Family History Past Medical History?: Yes - Past Social History Smoking Status: Former Smoker - CARDIAC Hx Cardiac Disorders: Yes (coronary stent.) Hx Congestive Heart Failure: Yes Hx Hypertension: Yes - PULMONARY Hx Chronic Obstructive Pulmonary Disease (COPD): Yes - NEUROLOGICAL Hx Neurological Disorder: Yes Hx Dizziness: Yes - HEENT Hx HEENT Problems: Yes (EPISTAXIS) Hx Epistaxis: Yes - RENAL Hx Chronic Kidney Disease: Yes Hx Kidney Stones: Yes Hx Renal Failure: Yes Other/Comment: Diabetic neuropathy - ENDOCRINE/METABOLIC Hx Diabetes Mellitus Type 2: Yes - HEMATOLOGICAL/ONCOLOGICAL Hx Blood Transfusions: Yes Hx Blood Transfusion Reaction: No - INTEGUMENTARY Hx Dermatological Problems: Yes Hx Cellulitis: Yes - MUSCULOSKELETAL/RHEUMATOLOGICAL Hx Arthritis: Yes - GASTROINTESTINAL Hx Gastrointestinal Disorders: Yes Other/Comment: hernia - GENITOURINARY/GYNECOLOGICAL Hx Genitourinary Disorders: Yes Hx Incontinence: Yes Hx Urinary Tract Infection: Yes Other/Comment: Endometriosis - PSYCHIATRIC Hx Psychophysiologic Disorder: Yes Hx Anxiety: Yes Hx Depression: Yes Hx Substance Use: No - SURGICAL HISTORY Hx Surgeries: Yes - ANESTHESIA Hx Anesthesia Reactions: No Hx Malignant Hyperthermia: No Meds Allergies/Adverse Reactions: Allergies Allergy/AdvReac Type Severity Reaction Status Date / Time Iodine and Iodide Containing Allergy Intermediate URTICARIA Verified 03/15/18 00:44 Produc ceftaroline fosamil Allergy ITCHING Verified 03/14/18 10:32 [From Teflaro] theophylline Allergy NAUSEA Verified 03/14/18 10:32 - Medications Medications: Current Medications Acetaminophen (Tylenol 325mg Tab) 650 mg PO Q6H PRN PRN Reason: Pain, moderate (4-7) Last Admin: 03/15/18 18:14 Dose: 650 mg Albuterol/Ipratropium (Duoneb 3 Mg/0.5 Mg (3 Ml) Ud) 3 ml IH Q6H PRN PRN Reason: SHORTNESS OF BREATH Last Admin: 03/16/18 21:45 Dose: 3 ml Allopurinol (Zyloprim) 100 mg PO DAILY [facility] Last Admin: 03/17/18 10:32 Dose: 100 mg Atorvastatin Calcium (Lipitor) 20 mg PO DAILY [facility] Last Admin: 03/17/18 10:32 Dose: 20 mg Clopidogrel Bisulfate (Plavix) 75 mg PO DAILY [facility] Last Admin: 03/15/18 10:20 Dose: 75 mg Meropenem/Sodium Chloride (Merrem Iv 500 Mg/Ns 50 Ml) 500 mg in 50 mls @ 100 mls/hr IVPB Q12 MAMADOU; Protocol Stop: 03/23/18 22:01 Last Admin: 03/17/18 10:12 Dose: 100 mls/hr Daptomycin 470 mg/ Sodium (Chloride) 100 mls @ 200 mls/hr IV Q48H MAMADOU Stop: 03/23/18 21:01 Last Admin: 03/16/18 21:11 Dose: 200 mls/hr NOREPINEPHRINE BIT/0.9 % NACL (Levophed 4 Mg/ 250 Ml Ns Premixed) 4 mg in 250 mls @ 15 mls/hr IV .[id number] PRN; Protocol PRN Reason: TITRATE PER MD ORDER Last Admin: 03/17/18 08:20 Dose: 10 mcg/min, 37.5 mls/hr Sodium Bicarbonate 100 meq/ (Dextrose) 1,100 mls @ 75 mls/hr IV .[id number] [facility] Last Admin: 03/17/18 10:39 Dose: 75 mls/hr Insulin Human Lispro (Humalog Med) 0 units SC ACHS [facility] Last Admin: 03/17/18 08:21 Dose: 1 units Montelukast Sodium (Singulair) 10 mg PO [facility] Last Admin: 03/16/18 21:13 Dose: 10 mg Home Med - Fluvoxamine [Luvox] 25 Mg 25 mg PO BID [facility] Last Admin: 03/17/18 10:28 Dose: Not Given Home Med - Umeclidinium [place] [Incruse Ellipta] 1 Puff 1 puff IH [facility] Last Admin: 03/16/18 07:14 Dose: Not Given Nortriptyline HCl (Pamelor) 50 mg PO [facility] Last Admin: 03/17/18 00:41 Dose: Not Given Oxychlorosene Sodium (Clorpactin Wcs-90) 2 gm TOP Q12 [facility] Last Admin: 03/17/18 10:23 Dose: 2 gm Oxycodone/Acetaminophen (Percocet 5/325 Mg Tab) 1 tab PO Q6H PRN PRN Reason: pain Stop: 03/18/18 21:56 Last Admin: 03/15/18 23:15 Dose: 1 tab Oxymetazoline HCl (Afrin 0.05%) 0 ml NS TID [facility] Last Admin: 03/17/18 10:40 Dose: 1 spray Pantoprazole Sodium (Protonix Ec Tab) 20 mg PO ACB [facility] Last Admin: 03/17/18 08:22 Dose: 20 mg Quetiapine Fumarate (Seroquel Xr) 100 mg PO [facility]; Protocol Last Admin: 03/17/18 00:42 Dose: Not Given Silver Sulfadiazine (Silvadene 1% 25 Gm) 1 gm TP BID [facility] Last Admin: 03/17/18 10:28 Dose: Not Given Tizanidine HCl (Zanaflex) 2 mg PO Q6 [facility] Last Admin: 03/17/18 07:02 Dose: Not Given Physical Exam - Constitutional Appears: Non-toxic, No Acute Distress, Chronically Ill - Head Exam Head Exam: ATRAUMATIC - Eye Exam Eye Exam: EOMI. absent: Scleral icterus - ENT Exam ENT Exam: Mucous Membranes Dry Additional comments: mouth dry - Respiratory Exam Respiratory Exam: absent: Accessory Muscle Use, Respiratory Distress Additional comments: shallow breathing - Cardiovascular Exam Cardiovascular Exam: Tachycardia, +S1, +S2. absent: Bradycardia - GI/Abdominal Exam GI & Abdominal Exam: Soft. absent: Diminished Bowel Sounds, Distended, Firm, Guarding, Rigid - Extremities Exam Additional comments: LLE wrapped. Dressing C/D/I - Neurological Exam Neurological exam: Oriented x3 - Skin Skin Exam: Intact, Warm Results - Vital Signs Recent Vital Signs: Last Vital Signs Temp 98.4 F 03/17/18 04:00 Pulse 105 H 03/17/18 11:00 Resp 11 L 03/17/18 10:45 BP 104/39 L 03/17/18 11:00 Pulse Ox 100 03/17/18 11:00 - Labs Result Diagrams: 03/17/18 06:30 03/17/18 06:30 Labs: Laboratory Results - last 24 hr 03/16/18 03/16/18 03/16/18 10:50 11:00 11:00 WBC RBC Hgb Hct MCV MCH MCHC RDW Plt Count MPV Mineral % (Auto) Eos % (Auto) Baso % (Auto) Mineral # (Auto) Eos # (Auto) Baso # (Auto) ESR 134 H pCO2 pO2 HCO3 ABG pH ABG Total CO2 ABG O2 Saturation ABG O2 Content ABG Base Excess ABG Hemoglobin ABG Carboxyhemoglobin POC ABG HHb (Measured) ABG Methemoglobin ABG O2 Capacity Hgb O2 Saturation FiO2 Sodium Potassium Chloride Carbon Dioxide Anion Gap BUN Creatinine Est GFR ( Amer) Est GFR (Non-Af Amer) POC Glucose (mg/dL) Random Glucose Serum Osmolality Calcium Phosphorus Magnesium Total Bilirubin AST ALT Alkaline Phosphatase C-Reactive Protein > 450.00 H Total Protein Albumin Globulin Albumin/Globulin Ratio Urine Osmolality Ur Random Creatinine Ur Random Sodium Ur Random Urea Nitrogn Blood Type A POSITIVE Antibody Screen Negative Crossmatch See Detail BBK History Checked Patient has bt 03/16/18 03/16/18 03/16/18 15:20 20:15 20:36 WBC 30.5 H* D RBC 2.66 L Hgb 7.5 L Hct 22.7 L MCV 85.3 MCH 28.2 MCHC 33.0 RDW 17.0 H Plt Count 292 MPV 9.6 Mineral % (Auto) Eos % (Auto) Baso % (Auto) Mineral # (Auto) Eos # (Auto) Baso # (Auto) ESR pCO2 pO2 HCO3 ABG pH ABG Total CO2 ABG O2 Saturation ABG O2 Content ABG Base Excess ABG Hemoglobin ABG Carboxyhemoglobin POC ABG HHb (Measured) ABG Methemoglobin ABG O2 Capacity Hgb O2 Saturation FiO2 Sodium 128 L Potassium 5.5 H Chloride 93 L Carbon Dioxide 17 L Anion Gap 24 H BUN 109 H Creatinine 7.1 H Est GFR ( Amer) 7 Est GFR (Non-Af Amer) 6 POC Glucose (mg/dL) 141 H Random Glucose 145 H Serum Osmolality Calcium 8.7 Phosphorus Magnesium Total Bilirubin AST ALT Alkaline Phosphatase C-Reactive Protein Total Protein Albumin Globulin Albumin/Globulin Ratio Urine Osmolality Ur Random Creatinine Ur Random Sodium Ur Random Urea Nitrogn Blood Type Antibody Screen Crossmatch BBK History Checked 03/16/18 03/16/18 03/17/18 20:36 20:36 01:45 WBC 33.4 H* RBC 2.76 L Hgb 8.0 L Hct 23.9 L MCV 86.6 MCH 29.0 MCHC 33.5 RDW 16.5 H Plt Count 260 MPV 9.8 Mineral % (Auto) Eos % (Auto) Baso % (Auto) Mineral # (Auto) Eos # (Auto) Baso # (Auto) ESR pCO2 pO2 HCO3 ABG pH ABG Total CO2 ABG O2 Saturation ABG O2 Content ABG Base Excess ABG Hemoglobin ABG Carboxyhemoglobin POC ABG HHb (Measured) ABG Methemoglobin ABG O2 Capacity Hgb O2 Saturation FiO2 Sodium 127 L Potassium 5.5 H Chloride 96 L Carbon Dioxide 15 L Anion Gap 21 H BUN 107 H Creatinine 6.7 H Est GFR ( Amer) 8 Est GFR (Non-Af Amer) 6 POC Glucose (mg/dL) Random Glucose 138 H Serum Osmolality 300 Calcium 7.7 L Phosphorus Magnesium Total Bilirubin AST ALT Alkaline Phosphatase C-Reactive Protein Total Protein Albumin Globulin Albumin/Globulin Ratio Urine Osmolality Ur Random Creatinine Ur Random Sodium Ur Random Urea Nitrogn Blood Type Antibody Screen Crossmatch BBK History Checked 03/17/18 03/17/18 03/17/18 06:30 06:30 06:30 WBC 30.9 H* RBC 2.87 L Hgb 8.3 L Hct 24.6 L MCV 85.7 MCH 28.9 MCHC 33.7 RDW 16.6 H Plt Count 284 MPV 9.9 Mineral % (Auto) 3.9 Eos % (Auto) 0.4 L Baso % (Auto) 0.1 Mineral # (Auto) 1.2 H Eos # (Auto) 0.1 Baso # (Auto) 0.03 ESR pCO2 pO2 HCO3 ABG pH ABG Total CO2 ABG O2 Saturation ABG O2 Content ABG Base Excess ABG Hemoglobin ABG Carboxyhemoglobin POC ABG HHb (Measured) ABG Methemoglobin ABG O2 Capacity Hgb O2 Saturation FiO2 Sodium 129 L Potassium 6.1 H* Chloride 99 Carbon Dioxide 13 L Anion Gap 24 H BUN 103 H Creatinine 7.1 H Est GFR ( Amer) 7 Est GFR (Non-Af Amer) 6 POC Glucose (mg/dL) Random Glucose 170 H Serum Osmolality Calcium 7.7 L Phosphorus 10.2 H Magnesium 1.8 Total Bilirubin 0.8 AST 65 H ALT 39 Alkaline Phosphatase 187 H C-Reactive Protein Total Protein 6.0 Albumin 2.7 L Globulin 3.3 Albumin/Globulin Ratio 0.8 L Urine Osmolality 296 L Ur Random Creatinine 82 Ur Random Sodium 40 Ur Random Urea Nitrogn 305 Blood Type Antibody Screen Crossmatch BBK History Checked 03/17/18 09:40 WBC RBC Hgb Hct MCV MCH MCHC RDW Plt Count MPV Mineral % (Auto) Eos % (Auto) Baso % (Auto) Mineral # (Auto) Eos # (Auto) Baso # (Auto) ESR pCO2 38 pO2 77.0 L HCO3 12.4 L ABG pH 7.12 L* ABG Total CO2 13.6 L ABG O2 Saturation 96.9 ABG O2 Content 10.9 L ABG Base Excess -15.8 L ABG Hemoglobin 8.1 L ABG Carboxyhemoglobin 2.3 H POC ABG HHb (Measured) 3.0 ABG Methemoglobin 0.4 ABG O2 Capacity 11.2 L Hgb O2 Saturation 94.3 L FiO2 36.0 Sodium Potassium Chloride Carbon Dioxide Anion Gap BUN Creatinine Est GFR ( Amer) Est GFR (Non-Af Amer) POC Glucose (mg/dL) Random Glucose Serum Osmolality Calcium Phosphorus Magnesium Total Bilirubin AST ALT Alkaline Phosphatase C-Reactive Protein Total Protein Albumin Globulin Albumin/Globulin Ratio Urine Osmolality Ur Random Creatinine Ur Random Sodium Ur Random Urea Nitrogn Blood Type Antibody Screen Crossmatch BBK History Checked Assessment & Plan - Assessment and Plan (Free Text) Assessment: 57F w/ acute on chronic kidney injury, now anuric needs temproary dialysis Plan: - Worsening kidney function - currently RIJ TLC - will exchange TLC for Trialysis catheter over guide wire - explained risks and benefits to patient - called to explain procedure - discussed w/ Dr. Boone Surgical attending PGY2
--- NOTE | 2018-03-17 12:13 | PN ---
DATE: 03/17/2018 SUBJECTIVE: A 57-year-old female seen in the ICU status post 1 day complex incision and drainage of all the compartments of her left foot secondary to severe diabetic foot abscess with compartment syndrome clinical manifestations. The patient has bled actively during the course of the night secondary to her Plavix usage. Emergency surgery was performed in the absence of stopping the anticoagulant during the normal 3-5 days preoperatively in an effort to salvage her foot from acute ischemia due to her compartment syndrome like symptoms. Did bandage today, presents with no strike through before the dressing change indicating her bleeding has stopped. She is lethargic, but is able to answer all questions appropriately. The patient's vital signs reveal a pulse rate of 105, blood pressure of 104/39, blood pressure mean of 62, respiratory rate of 11 liters. Her oxygen sat is at 100. LABORATORY FINDINGS: White count of 30.9, down from 33.4 taken today at 01:45 a.m. Hemoglobin is 8.3, hematocrit is 24.6, her platelet count is 284,000. Microbiology reports taken in the OR of the dorsal and plantar wounds are pending. MRI report taken 2 days ago has still not been read and is pending. However, wet read by myself shows extensive purulent pockets located throughout her foot. Could not determine if there has been Charcot arthropathy bone breakdown and osteolysis. We will await official MRI report. OBJECTIVE: There is noted to be palpable pedal pulses bilaterally. Temperature gradient is warm on both feet. Surgical site areas on the left foot at the plantar aspect of the foot and on the dorsal aspect of the foot show full-thickness incisions that remain open with primarily granular tissue present. There is no active bleeding noted. There is no purulence emanating from any of the wounds. There is no malodor. There are no signs of remaining purulence at this point. However, the foot is edematous with a mottled appearance, but the congestion that was present has decreased considerably and significantly after the open incision and drainage procedure. ASSESSMENT: Status post complex incision and drainage procedure on the left foot secondary to diabetic foot abscess causing compartment-like clinical symptoms. PLAN: The patient was examined using sterile gloves and sterile instruments. The wound was flushed with Clorpactin sterile saline solution. All of the wounds were gently packed with non Iodoform plane sterile 0.25-inch packing. Sterile Adaptic, calcium alginate with silver gauze and a dry sterile dressing was applied with an Kishor wrap for compression. The patient's family members have been called numerous times and we have not been able to get in touch with her or son to update them on the patient's present condition. Dr. Kent's note and Dr. Byrne's note was read and appreciated. We will continue to follow the patient closely daily. The patient will remain in the ICU until stabilized. Rodríguez Little DPM
[2018-03-17 13:09] LABS: IRON 51 ug/dL (45-180)
[2018-03-17 13:19] LABS: % IRON SATURATION 38 % (20-55); TOTAL IRON BINDING CAPACITY 135 ug/dL (265-497)
--- NOTE | 2018-03-17 13:29 | CON ---
DATE OF CONSULTATION: 03/17/[address] The patient admitted with Dr. Zhu. REFERRING PHYSICIAN: Colt Zhu MD REASON FOR CONSULTATION: Evaluation of the patient known to us, who presents with acute renal failure superimposed on chronic kidney disease stage 3 with hypotension, hyperkalemia and oligoanuria. HISTORY OF PRESENT ILLNESS: The patient is a 57-year-old white female with a long history of hypertension, history of IDDM, history of chronic kidney disease stage 3, history of hyperkalemia, history of anemia secondary to chronic kidney disease, history of neuropathy with autonomic dysfunction, history of CHF in the past, history of COPD, history of endometriosis. The patient was admitted to the hospital 3 days ago with cellulitis of her left foot. She is status post incision and drainage of a deep abscess and compartment syndrome of the left foot. The patient currently is transferred to the ICU. The patient is hypotensive. She is currently oligoanuric. She is currently hyperkalemic and acidotic. We are asked to evaluate the patient for her worsening renal parameters and the possible need for dialysis. PAST MEDICAL HISTORY: Significant for that of hypertension, IDDM, chronic kidney disease stage 3 with intermittent bouts of acute renal failure over the years always resolved, history of hyperkalemia, anemia secondary to chronic kidney disease, history of diabetic neuropathy with autonomic dysfunction. History of peripheral vascular disease. History of CHF, history of COPD, history of endometriosis. FAMILY HISTORY: Unobtainable from the patient. SOCIAL HISTORY: Past history of cigarette smoking. No history of alcohol use. MEDICATIONS AT HOME: Ritalin, promethazine with codeine, prednisone, Levaquin, nortriptyline, insulin, Incruse Ellipta, Singulair, losartan, Venofer, vitamin E, Seroquel, Protonix, Zanaflex, Kayexalate p.r.n., calcium polycarbophil, Tylenol, p.o. Lasix, vitamins, Plavix, Lopid, multivitamins, Coreg, Lipitor, Ecotrin, acidophilus, allopurinol, and albuterol. ALLERGIES: THE PATIENT IS ALLERGIC TO IODINE AND IODINE-CONTAINING PRODUCTS, CEFTAROLINE AND THEOPHYLLINE. REVIEW OF SYSTEMS: Difficult to obtain from the patient. GENERAL: It appears that the patient's appetite has been stable with no weight loss. ENT: No apparent hearing or visual problems. PULMONARY: Positive shortness of breath. CARDIAC: No history of ASHD. GI: No nausea, vomiting, diarrhea, constipation, abdominal pain. : As noted above. Chronic kidney disease stage 3. PIPE BOWL PAINT TRIMMER: Postmenopausal. ENDOCRINE: History of diabetes with complications. MUSCULOSKELETAL: No issues. NEURO: No past history of CVA, TIA, seizures or syncope. HEME/ONC: History of anemia secondary to chronic kidney disease. PSYCHIATRIC: History is positive for depression and anxiety. PHYSICAL EXAMINATION: GENERAL: The patient is currently seen in ICU, Bed 7. She is in the process of having a blood gas. The patient appears to be responsive to all stimulation. She appears to be oriented. VITAL SIGNS: On pressor therapy, her systolic blood pressure is now 97/45, up from 82/36. Temperature 98.4, respiratory rate is 17, pulse is 101. HEENT: Exam shows her to be normocephalic, atraumatic. Conjunctivae are pale. Sclerae are nonicteric. Pupils appear equal and reactive to light and accommodation. Extraocular muscles are intact. Posterior pharynx is normal. NECK: Supple. No neck vein distention. No thyromegaly. No lymphadenopathy. No bruits. CHEST: Clear to auscultation and percussion with slight decreased breath sounds at the bases. No rales, rhonchi or wheezing. CARDIOVASCULAR: Regular rate and rhythm with MR/TR. No S3, no S4. No rub. ABDOMEN: Soft. Bowel sounds normal. No rebound, guarding or masses. BACK: No CVAT. No spinal tenderness. EXTREMITIES: Show dressing over her left foot in the area of the I and D of the abscess of the left foot. Her right foot shows ischemic changes of her toes. Diminished pulses in the lower extremities bilaterally. No cyanosis or clubbing. NEURO: Shows her to be alert, oriented. No gross focal motor or sensory deficits noted. LABORATORY DATA AND IMAGING: CBC: White blood cell count up to 30.9 with a hemoglobin of 8.3, platelet count is 284,000. Coags 19.4 with an INR of 1.68. Chemistries today show sodium of 129, potassium was up to 6.1. CO2 is down to 13. BUN is 103 with a creatinine of 7.1. The patient's baseline BUN is in the 50-60 range. Creatinine baseline range is in the low to mid 2 range. Calcium 7.7 with an albumin of 2.7. Phosphorus level was elevated at 10.2, magnesium 1.8. Liver enzymes mildly elevated. Urine showed a fractional excretion of sodium of greater than 1%. Urinalysis was not done. Renal ultrasound done yesterday showed bilateral cortical thinning, right kidney 12.4 cm, left kidney 11.3 cm, no obstructing calculus, no hydronephrosis. Chest x-ray from today shows cardiomegaly, mild pulmonary vascular congestion and small pleural effusions. The patient has a right IJ placed. MRI of the foot was done, but not read. Microbiology: Blood cultures are positive for Gram-positive cocci in clusters. Left foot culture is positive for staph aureus. Final sensitivities are pending. ASSESSMENT: 1. Sepsis secondary to cellulitis and abscess of her left lower extremity. The patient is currently hemodynamically unstable with hypotension and probable sepsis with potential septum shock. Her urine output presently is nil. She remains acidotic and hyperkalemic. I discussed with the ICU staff about the need to switch her over to sodium bicarbonate to lower her potassium level. We will make plans for placement of a dialysis catheter and dialysis will likely start within the next 24 hours if urine output does not grain picker and the patient continues to remain severely acidotic and hyperkalemic. The patient appears to be alert enough to be able to sign the consent for dialysis. 2. Past history of chronic kidney disease stage 3, likely secondary to longstanding diabetes and hypertension. The patient does have cortical thinning on her renal ultrasound. There is no evidence for obstructive uropathy. 3. History of insulin-dependent diabetes mellitus with diabetic neuropathy and diabetic nephropathy and diabetic vasculopathy. 4. Hyperkalemia secondary to [id number] renal failure. We will try and lower her potassium level with Kayexalate. We will try and give her sodium bicarbonate, she may receive albuterol. 5. History of anemia secondary to chronic kidney disease, worsened with acute renal failure. Transfuse the patient on a p.r.n. basis. The patient may start Aranesp and we should check her iron levels. 6. History of left ventricular hypertrophy secondary to hypertension with ejection fraction 60% with mitral regurgitation/tricuspid regurgitation and history of pulmonary hypertension, all appear to be stable. 7. Past history of chronic obstructive pulmonary disease, past cigarette smoker. 8. Past history of endometriosis. PLAN: Discussed with Dr. Byrne, the casino games dealer, today, ICU house staff and ICU nursing staff. We will make plans for placement of a dialysis catheter, perfectly a PermCath. We will switch the patient over to sodium bicarbonate in lieu of normal saline. We will continue her on Levophed to maintain her blood pressure. We will try and lower her potassium conservatively. If we are unsuccessful, if the patient's renal function continues to deteriorate, no choice, but to initiate dialysis. I did have a discussion with the patient. It appears that she is alert and often understands enough to be able to sign a consent for placement of a catheter and for dialysis. This will likely take place within the next 24 hours. Peripheral vascular disease with abscess and cellulitis of her left foot, status post I and D. Positive Staph aureus in the wound and likely Staph aureus bacteremia. In the past, the patient has had MRSA. She remains on antibiotics, being followed by ID. For her anemia, transfuse on a p.r.n. basis. Start Aranesp likely with dialysis and check her iron levels. Close monitoring of the patient post surgery. The patient will be followed by Podiatry. We will continue to monitor the patient closely in the ICU. We will monitor for any further hemodynamic compromise. We will support the patient with dialysis as discussed. Greater than 35 minutes spent in the care of this critically ill patient. Brent Sheth MD
--- NOTE | 2018-03-17 14:16 | PCM.PROC ---
Procedures Attestation:: I certify that I have explained the specified Operation(s) or Procedure(s), risks, benefits and reasonable alternatives to the Patient and/or other person responsible. The opportunity was given to ask questions and all questions answered - Central Line Placement Right Internal Jugular Hemodialysis Access Aseptic technique was employed throughout the procedure: Hand Hygiene done prior to procedure, Full sterile barriers (mask, hair cover, sterile gown, sterile gl oves), Full body sterile drape, Chloraprep Antiseptic: 30 second prep for IJ or SC sites CVP Time Out Performed: Yes Pt. Placed on Pulse Ox Monitor: Yes Central Line Prep: Chlorhexidine-Alcohol Combination Local Anesthesia Used: Lidocaine 1% Amount of Anesthesia Used (mls): 5 Ultrasound Used for Placement: No Central Line Lumen Inserted: triple Central Line Length: 16 cm Post Procedure: Sutured in Place, Good Blood Return, All Ports Aspirated, Flushed, Capped, Sterile Dressing Applied Secured by: Suture Post procedure dressing: Clear vapor permeable, Chlorhexidine disc (Biopatch) Post Procedure X-Ray: Yes Patient Tolerated Procedure: Well Immediate Complications: None Additional Comments: Procedure: exchange of catheter over guidewire on the Right IJ
--- NOTE | 2018-03-17 14:21 | PN ---
DATE: 03/17/2018 SUBJECTIVE She is lethargic. She received 2 units of blood transfusion overnight. Hemoglobin declined status post wound debridement on the left lower extremity. She is currently on pressor support with Levophed. On oxygen by nasal cannula. Renal function deteriorated and creatinine elevated to 6.8. She is being prepared for hemodialysis. PHYSICAL EXAMINATION: GENERAL: Lethargic. VITAL SIGNS: Temperature 98.3, heart rate is 100 per minute, respiratory rate 18 per minute, blood pressure 100/70. HEENT: Pallor positive. NECK: No lymphadenopathy. CHEST: Air entry present and equal bilateral. Occasional rhonchi. CARDIOVASCULAR: S1, S2 normal. Tachycardia. ABDOMEN: Soft and nontender, obese. EXTREMITIES: Left lower extremity in dressing. Edema of the left lower extremity present. NEUROLOGIC: Lethargic, arousable. Moving all the extremities. LABORATORY DATA: White count 30,000, hemoglobin 8.3, hematocrit 24.6, platelet 284,000. Sodium 127, potassium 5.5, CO2 16 BUN 104, creatinine 6.8, glucose 140, and chest x-ray, left lower lobe infiltrate. ASSESSMENT/PLAN: 1. Severe sepsis. 2. Septic shock secondary to bacteremia, gram-positive. 3. Left lower extremity cellulitis. 4. Charcot's foot. 5. Cardiomyopathy. 6. Diabetes mellitus type 2. 7. Chronic obstructive pulmonary disease. 8. Morbid obesity. 9. Hyponatremia. 10. [id number] renal insufficiency. PLAN: She is currently on IV antibiotic as per ID. She underwent wound debridement with Podiatry. Currently, on bronchodilators, aspirin and Plavix. Plavix is on hold, currently on meropenem. Hemoglobin/hematocrit is stable status post 2 units of blood transfusion. Renal dialysis catheter is being put to initiate hemodialysis because of worsening renal functions. Discussed with ICU resident. Nikole Yadav MD
--- NOTE | 2018-03-17 14:51 | RAD ---
HISTORY: assess cath placement COMPARISON: Chest x-ray performed 03/17/18 at 138 hr. TECHNIQUE: Chest, one view. FINDINGS: Examination limited by habitus and hypoinflation. Right IJ approach central venous catheter likely terminates at the proximal right atrium. LUNGS: Mild to moderate pulmonary venous congestion. PLEURA: No significant pleural effusion identified. No definite pneumothorax . CARDIOVASCULAR: Cardiomegaly. No significant atherosclerotic calcification present. OSSEOUS STRUCTURES: Degenerative changes. VISUALIZED UPPER ABDOMEN: Unremarkable. OTHER FINDINGS: None. IMPRESSION: Right IJ approach central venous catheter likely terminates at the proximal right atrium. Hypoinflation. Mild to moderate pulmonary venous congestion. Cardiomegaly.
[2018-03-17 14:55] LABS: VENOUS BLOOD GAS BASE EXCESS -13.6 mmol/L (0.0-2.0); VENOUS BLOOD GAS PO2 31 mm/Hg (30-55)
[2018-03-17 15:09] LABS: VENOUS BLOOD PH 7.14 (7.32-7.43)
[2018-03-17] MEDS ORDERED: Morphine 2 mg/ml ISec IVP STA (16:06)
--- NOTE | 2018-03-17 18:25 | PN ---
DATE: 03/17/2018 SUBJECTIVE: The patient underwent incision and drainage of an abscess over the left foot yesterday. She is currently sedated and does not appear to be in respiratory distress. No reported hypotension. PHYSICAL EXAMINATION: VITAL SIGNS: Blood pressure 104/89, heart rate 105, and temperature 98.6. HEENT: Periorbital edema with facial edema. NECK: No JVD. CHEST: Clear. HEART: S1 and S2 regular. EXTREMITIES: 2+ pitting edema. LABORATORY DATA: Today's hemoglobin and hematocrit 8.3 and 24.6, white count 30.9, platelet count 284,000. Today's SMA-7: Sodium 129, potassium 6.1, chloride 99, CO2 15, glucose 170, BUN 103, and creatinine 7.1. Echo study performed yesterday revealed mild concentric LVH with normal ejection fraction and mild pulmonary hypertension, [id number] mitral insufficiency. ASSESSMENT: 1. Status post incision and drainage of left foot abscess. 2. Advanced renal insufficiency. 3. Hyperkalemia. RECOMMENDATIONS: Continue current IV daptomycin, continue albuterol inhaler, continue low dose Levophed infusion, continue Lipitor 20 mg once a day, Plavix 75 mg once a day. Obtain 12-lead EKG postoperatively. The patient is in the process of having a temporary hemodialysis catheter placed today with initiation of hemodialysis today at the bedside. Terry Moulton MD
--- NOTE | 2018-03-17 20:17 | CP.PCM.PN ---
Subjective - Date & Time of Evaluation Date of Evaluation: 03/17/18 Time of Evaluation: 20:13 - Subjective Subjective: Progress Note- Dr. Boone Patient seen and examined at bedside. Currently undergoing HD via trialysis catheter in [facility]. Currently running levophed. Catheter site C/D/I. Vitals: 98.6 102 105/68 100% 2L NC Neuro: AAOx3 moving all 4 extremities Neck: [facility] trialysis catheter in place. Currently undergoing dialysis w/o issues at this time Cardiac: tachycardia, S1 S2 Pulm: No respiratory distress, no accessory muscle, on 2L NC Abd: Soft NT ND Ext: LLE dressing C/D/I A/P: 57F Acute on Chronic Kidney disease s/p R IJ temporary dialysis catheter placement exchanged over guidewire of TLC - HD as tolerated - management per ICU team - no further surgical intervention at this time - re-consult as needed - d/w surgical attending [id number] Objective - Vital Signs/Intake and Output Vital Signs (last 24 hours): Temp Pulse Resp BP Pulse Ox 98.8 F 102 H 11 L 104/39 L 100 03/17/18 16:00 03/17/18 17:31 03/17/18 10:45 03/17/18 11:00 03/17/18 11:00 Intake and Output: 03/17/18 03/18/18 18:59 06:59 Intake Total 3024 Output Total 1030 Balance 1993 - Medications Medications: Current Medications Acetaminophen (Tylenol 325mg Tab) 650 mg PO Q6H PRN PRN Reason: Pain, moderate (4-7) Last Admin: 03/15/18 18:14 Dose: 650 mg Albuterol/Ipratropium (Duoneb 3 Mg/0.5 Mg (3 Ml) Ud) 3 ml IH Q6H PRN PRN Reason: SHORTNESS OF BREATH Last Admin: 03/16/18 21:45 Dose: 3 ml Allopurinol (Zyloprim) 100 mg PO DAILY [facility] Last Admin: 03/17/18 10:32 Dose: 100 mg Atorvastatin Calcium (Lipitor) 20 mg PO DAILY [facility] Last Admin: 03/17/18 10:32 Dose: 20 mg Clopidogrel Bisulfate (Plavix) 75 mg PO DAILY [facility] Last Admin: 03/15/18 10:20 Dose: 75 mg Meropenem/Sodium Chloride (Merrem Iv 500 Mg/Ns 50 Ml) 500 mg in 50 mls @ 100 mls/hr IVPB Q12 [facility]; Protocol Stop: 03/23/18 22:01 Last Admin: 03/17/18 10:12 Dose: 100 mls/hr Daptomycin 470 mg/ Sodium (Chloride) 100 mls @ 200 mls/hr IV Q48H [facility] Stop: 03/23/18 21:01 Last Admin: 03/16/18 21:11 Dose: 200 mls/hr NOREPINEPHRINE BIT/0.9 % NACL (Levophed 4 Mg/ 250 Ml Ns Premixed) 4 mg in 250 mls @ 15 mls/hr IV .[id number] PRN; Protocol PRN Reason: TITRATE PER MD ORDER Last Admin: 03/17/18 16:50 Dose: 10 mcg/min, 37.5 mls/hr Sodium Bicarbonate 100 meq/ (Dextrose) 1,100 mls @ 75 mls/hr IV .[id number] [facility] Last Admin: 03/17/18 10:39 Dose: 75 mls/hr Insulin Human Lispro (Humalog Med) 0 units SC ACHS [facility] Last Admin: 03/17/18 17:03 Dose: 3 units Montelukast Sodium (Singulair) 10 mg PO [facility] Last Admin: 03/16/18 21:13 Dose: 10 mg Home Med - Fluvoxamine [Luvox] 25 Mg 25 mg PO BID [facility] Last Admin: 03/17/18 17:03 Dose: Not Given Home Med - Umeclidinium [place] [Incruse Ellipta] 1 Puff 1 puff IH [facility] Last Admin: 03/16/18 07:14 Dose: Not Given Nortriptyline HCl (Pamelor) 50 mg PO [facility] Last Admin: 03/17/18 00:41 Dose: Not Given Oxychlorosene Sodium (Clorpactin Wcs-90) 2 gm TOP Q12 [facility] Last Admin: 03/17/18 10:23 Dose: 2 gm Oxycodone/Acetaminophen (Percocet 5/325 Mg Tab) 1 tab PO Q6H PRN PRN Reason: pain Stop: 03/18/18 21:56 Last Admin: 03/15/18 23:15 Dose: 1 tab Oxymetazoline HCl (Afrin 0.05%) 0 ml NS TID [facility] Last Admin: 03/17/18 18:07 Dose: Not Given Pantoprazole Sodium (Protonix Ec Tab) 20 mg PO ACB [facility] Last Admin: 03/17/18 08:22 Dose: 20 mg Quetiapine Fumarate (Seroquel Xr) 100 mg PO HS [facility]; Protocol Last Admin: 03/17/18 00:42 Dose: Not Given Silver Sulfadiazine (Silvadene 1% 25 Gm) 1 gm TP BID [facility] Last Admin: 03/17/18 17:04 Dose: Not Given Tizanidine HCl (Zanaflex) 2 mg PO Q6 [facility] Last Admin: 03/17/18 17:07 Dose: 2 mg - Labs Labs: 03/17/18 06:30 03/17/18 06:30 PT 19.4 SECONDS (9.4-12.5) H 03/14/18 17:00 INR 1.68 03/14/18 17:00 APTT 37.4 Seconds (25.1-36.5) H 03/14/18 17:00
[2018-03-17] MEDS: UMECLIDINIUM BROMIDE IH SCH (22:19)
[2018-03-17] MEDS: Oxycodone/Acetaminophen 5/325 mg Tab PO PRN (23:42)
[2018-03-18 00:21] LABS: ARTERIAL BLOOD GAS HCO3 20.7 mmol/L (21-28); ARTERIAL BLOOD GAS HEMOGLOBIN 11.4 g/dL (11.7-17.4); ARTERIAL BLOOD GAS O2 CAPACITY 15.9 mL/dl (16-24); ARTERIAL BLOOD GAS O2 CONTENT 15.3 ML/dl (15-23); ARTERIAL BLOOD GAS PCO2 44 mm/Hg (35-45); ARTERIAL BLOOD GAS PH 7.28 (7.35-7.45); ARTERIAL BLOOD GAS TCO2 22.1 mmol.L (22-28)
[2018-03-18] MEDS: NOREPINEPHRINE BIT/0.9 % NACL 4 MG/250 ML BAG IV PRN (00:58)
[2018-03-18] MEDS: Sodium Bicarbonate 8.4% 100 MEQ in Dextrose 5% In Water 1,000 ML IV SCH (02:49)
[2018-03-18 05:34] LABS: BASO # 0.02 K/mm3 (0.0-2.0); BASO % 0.1 % (0.0-3.0); EOS # 0.1 (0.0-0.7); EOS % 0.3 % (1.5-5.0); HEMOGLOBIN 7.4 g/dL (12.0-16.0); MEAN CELL VOLUME 83.9 fl (80.0-105.0); MEAN CORPUSCULAR HEMOGLOBIN 29.1 pg (25.0-35.0); MEAN CORPUSCULAR HGB CONC 34.7 g/dl (31.0-37.0); MONO # 1.2 (0.1-0.6); MONO % 4.4 % (1.0-6.0); PLATELET COUNT 271 10^3/uL (120.0-450.0); RBC 2.54 10^6/uL (3.5-6.1); RED CELL DISTRIBUTION WIDTH 16.6 % (11.5-14.5)
[2018-03-18 05:56] LABS: WHITE BLOOD COUNT 26.4 10^3/uL (4.5-11.0)
[2018-03-18 06:35] LABS: ALB/GLOB RATIO 0.8 (1.1-1.8); ALBUMIN 2.5 g/dL (3.0-4.8); ALT/SGPT 60 U/L (7-56); AST/SGOT 194 U/L (14-36); BLOOD UREA NITROGEN 59 mg/dL (7-21); CALCIUM 7.8 mg/dL (8.4-10.5); GFR NON-AFRICAN AMERICAN 10; HDL CHOLESTEROL 18 mg/dL (29-60)
[2018-03-18 06:45] LABS: ARTERIAL BLOOD GAS HCO3 21.1 mmol/L (21-28); ARTERIAL BLOOD GAS HEMOGLOBIN 6.7 g/dL (11.7-17.4); ARTERIAL BLOOD GAS O2 CAPACITY 9.4 mL/dl (16-24); ARTERIAL BLOOD GAS O2 CONTENT 9.2 ML/dl (15-23); ARTERIAL BLOOD GAS O2 SAT 97.5 % (95-98); ARTERIAL BLOOD GAS PCO2 41 mm/Hg (35-45); ARTERIAL BLOOD GAS PH 7.32 (7.35-7.45); ARTERIAL BLOOD GAS TCO2 22.4 mmol.L (22-28)
[2018-03-18 06:46] LABS: LDL CHOLESTEROL < 30 mg/dL (0-129)
[2018-03-18 06:52] LABS: BAND 9 % (0-2); NEUTROPHIL 83 % (50.0-70.0)
[2018-03-18 06:53] LABS: HYPOCHROMIA 1+; LYMPHOCYTE 2 % (22.0-35.0); MONOCYTE 4 % (1.0-6.0); MYELOCYTE 2 %; PLATELET ESTIMATE NORMAL (NORMAL)
--- NOTE | 2018-03-18 07:32 | CP.CCUPN ---
<Sebastian Petersen - Last Filed: 03/18/18 11:10> CCU Subjective - Physician Review Subjective (Free Text): Patient seen and examined at bedside. She is AAOx3, answers questions appropriately. She denies any complaints. No significant events overnight. Left foot dressing wrapped with no oozing. Denied fever, cills chest pain, palpitations, headache. CCU Objective - Vital Signs / Intake & Output Vital Signs (Last 4 hours): Vital Signs Pulse 03/18/18 06:00 99 H Intake and Output (Last 8hrs): Intake & Output 03/17/18 03/18/18 03/18/18 22:59 06:59 14:59 Intake Total 2774 335 Output Total 1030 Balance 1744 335 Intake: IV 2594 335 Right Forearm 1900 Right Internal Jugular 444 Oral 180 Output: Urine 30 Urethral (Moore) 30 Stool 0 Other 1000 - Physical Exam Head: Positive for: Atraumatic, Normocephalic Pupils: Positive for: PERRL Extroacular Muscles: Positive for: EOMI Conjunctiva: Positive for: Normal Ears: Positive for: Normal Mouth: Positive for: Moist Mucous Membranes Pharnyx: Positive for: Normal. Negative for: ERYTHEMA, EXUDATE Nose (External): Positive for: Atraumatic Nose (Internal): Positive for: Normal Inspection, Moist, Clear Mucous Neck: Positive for: Normal Range of Motion, Other (tight IJ catherter). Negative for: Meningeal Signs, MIDLINE TENDERNESS, Paraspinal Tenderness Respiratory/Chest: Positive for: Clear to Auscultation, Good Air Exchange. Negative for: Respiratory Distress, Accessory Muscle Use, Wheezes, Decreased Breath Sounds, Rales, Retracting, Rhonchi Cardiovascular: Positive for: Regular Rate and Rhythm, Normal S1, S2, Peripheal Pulses Present. Negative for: Murmurs Abdomen: Positive for: Normal Bowel Sounds. Negative for: Tenderness, Distention, Peritoneal Signs, Rebound, Guarding Back: Positive for: Normal Inspection Upper Extremity: Positive for: Normal Inspection, Normal ROM, NORMAL PULSES, Neurovascularly Intact, Capillary Refill < 2s. Negative for: Cyanosis, Edema, Tenderness, Swelling, Erythema Lower Extremity: Positive for: NORMAL PULSES, Capillary Refill < 2 s, Other (Left food dressing applied no blood oozing seen. decreased sensation to right foot). Negative for: CALF TENDERNESS, Cyanosis, Althea's Sign, Deformity Neurological: Positive for: GCS=15, CN II-XII Intact, Speech Normal, Motor Func Grossly Intact, Normal Sensory Function, Gait Normal, Memory Normal Skin: Positive for: Warm, Dry, Normal Color, Erythematous (left anterior foot and ankle), Hot, Other (black/blue discoloration with fluctuance plantar surface left foot, no induration or surrounding erythema; ulcer on right foot 2nd digit, no surrounding erythema or swelling ). Negative for: Rashes, Induration, Abscess Lymphatic: Negative for: Cervical Adenopathy Psychiatric: Positive for: Alert, Oriented x 3, Normal Insight, Normal Concentration, Normal Affect, Normal Mood - Medications Active Medications: Active Medications Generic Name Dose Route Start Last Admin Trade Name Freq PRN Reason Stop Dose Admin Acetaminophen 650 mg 03/14/18 14:24 03/15/18 18:14 Tylenol 325mg Tab PO 650 mg Q6H PRN Administration Pain, moderate (4-7) Albuterol/Ipratropium 3 ml 03/18/18 07:15 Duoneb 3 Mg/0.5 Mg (3 Ml) Ud IH Q6H MAMADOU Allopurinol 100 mg 03/17/18 10:00 03/17/18 10:32 Zyloprim PO 100 mg DAILY MAMADOU Administration Atorvastatin Calcium 20 mg 03/15/18 10:00 03/17/18 10:32 Lipitor PO 20 mg DAILY MAMADOU Administration Clopidogrel Bisulfate 75 mg 03/14/18 14:30 03/15/18 10:20 Plavix PO 75 mg DAILY MAMADOU Administration Meropenem/Sodium Chloride 500 mg in 50 mls @ 100 mls/hr 03/14/18 22:00 03/17/18 21:59 Merrem Iv 500 Mg/Ns 50 Ml IVPB 03/23/18 22:01 100 mls/hr Q12 MAMADOU Administration Protocol Daptomycin 470 mg/ Sodium 100 mls @ 200 mls/hr 03/14/18 21:00 03/16/18 21:11 Chloride IV 03/23/18 21:01 200 mls/hr Q48H MAMADOU Administration NOREPINEPHRINE BIT/0.9 % NACL 4 mg in 250 mls @ 15 mls/hr 03/16/18 23:43 03/18/18 04:50 Levophed 4 Mg/ 250 Ml Ns Premixed IV 2.5 mcg/min .[id number] PRN 9.375 mls/hr TITRATE PER MD ORDER Titration Protocol 4 MCG/MIN Sodium Bicarbonate 100 meq/ 1,100 mls @ 75 mls/hr 03/17/18 10:15 03/18/18 02:49 Dextrose IV 75 mls/hr .[id number] MAMADOU Administration Insulin Human Lispro 0 units 03/14/18 16:30 03/17/18 22:19 Humalog Med SC Not Given ACHS MAMADOU Montelukast Sodium 10 mg 03/14/18 22:00 03/17/18 21:58 Singulair PO 10 mg HS MAMADOU Administration Home Med - 25 mg 03/14/18 18:00 03/17/18 17:03 Fluvoxamine [Luvox] PO Not Given 25 Mg BID MAMADOU Home Med - 1 puff 03/14/18 22:00 03/17/18 22:19 Umeclidinium [place] [facility] Not Given [Incruse Ellipta] 1 HS MAMADOU Puff Nortriptyline HCl 50 mg 03/15/18 23:00 03/17/18 21:57 Pamelor PO 50 mg HS MAMADOU Administration Oxychlorosene Sodium 2 gm 03/16/18 22:00 03/17/18 10:23 Clorpactin Wcs-90 TOP 2 gm Q12 MAMADOU Administration Oxycodone/Acetaminophen 1 tab 03/15/18 21:55 03/17/18 23:42 Percocet 5/325 Mg Tab PO 03/18/18 21:56 1 tab Q6H PRN Administration pain Oxymetazoline HCl 0 ml 03/15/18 14:00 03/17/18 18:07 Afrin 0.05% NS Not Given TID MAMADOU Pantoprazole Sodium 20 mg 03/15/18 07:30 03/17/18 08:22 Protonix Ec Tab PO 20 mg ACB MAMADOU Administration Quetiapine Fumarate 100 mg 03/14/18 22:00 03/17/18 21:56 Seroquel Xr PO 100 mg HS MAMADOU Administration Protocol Silver Sulfadiazine 1 gm 03/14/18 18:00 03/17/18 17:04 Silvadene 1% 25 Gm TP Not Given BID MAMADOU Tizanidine HCl 2 mg 03/14/18 18:00 03/18/18 06:24 Zanaflex PO 2 mg Q6 MAMADOU Administration - Patient Studies Lab Studies: Microbiology Studies 03/14/18 12:30 Blood Culture - Final Blood Staphylococcus Aureus Gram Stain - Final 03/14/18 12:55 S.aureus & Coag-Neg Staph PNA FISH - Final Blood Blood Culture - Final Staphylococcus Aureus Gram Stain - Final 03/14/18 17:00 Gram Stain - Final Foot - Left Wound Culture - Final Staphylococcus Aureus 03/16/18 09:40 Blood Culture - Preliminary Blood NO GROWTH AFTER 24 HOURS 03/16/18 09:15 Blood Culture - Preliminary Blood NO GROWTH AFTER 24 HOURS Lab Studies 03/18/18 03/18/18 03/18/18 Range/Units 06:34 05:20 05:20 WBC 26.4 H* (4.5-11.0) 10^3/uL RBC 2.54 L (3.5-6.1) 10^6/uL Hgb 7.4 L (12.0-16.0) g/dL Hct 21.3 L (36.0-48.0) % MCV 83.9 (80.0-105.0) fl MCH 29.1 (25.0-35.0) pg MCHC 34.7 (31.0-37.0) g/dl RDW 16.6 H (11.5-14.5) % Plt Count 271 (120.0-450.0) 10^3/uL MPV 10.0 (7.0-11.0) fl Motley % (Auto) 4.4 (1.0-6.0) % Eos % (Auto) 0.3 L (1.5-5.0) % Baso % (Auto) 0.1 (0.0-3.0) % Motley # (Auto) 1.2 H (0.1-0.6) Eos # (Auto) 0.1 (0.0-0.7) Baso # (Auto) 0.02 (0.0-2.0) K/mm3 Neutrophils % (Manual) 83 H (50.0-70.0) % Band Neutrophils % 9 H (0-2) % Lymphocytes % (Manual) 2 L (22.0-35.0) % Monocytes % (Manual) 4 (1.0-6.0) % Myelocytes % 2 % Platelet Evaluation Normal (NORMAL) Hypochromasia 1+ pCO2 41 (35-45) mm/Hg pO2 96.0 (80-100) mm/Hg HCO3 21.1 (21-28) mmol/L ABG pH 7.32 L (7.35-7.45) ABG Total CO2 22.4 (22-28) mmol.L ABG O2 Saturation 97.5 (95-98) % ABG O2 Content 9.2 L (15-23) ML/dl ABG Base Excess -4.6 L (-2.0-3.0) mmol/L ABG Hemoglobin 6.7 L (11.7-17.4) g/dL ABG Carboxyhemoglobin 1.5 (0.5-1.5) % POC ABG HHb (Measured) 2.4 (0-5) % ABG Methemoglobin 1.0 (0.0-3.0) % ABG O2 Capacity 9.4 L (16-24) mL/dl VBG pH (7.32-7.43) VBG pCO2 (40-60) VBG HCO3 (21-28) mmol/l VBG Total CO2 (22-28) mmol.L VBG O2 Sat (Calc) (40-65) % VBG Base Excess (0.0-2.0) mmol/L VBG Potassium (3.6-5.2) mmol/L Hgb O2 Saturation 95.1 (95.0-98.0) % Glucose (65-105) mg/dl Lactate (0.7-2.1) mmol/L FiO2 36.0 % Sodium 134 (132-148) mmol/L Potassium 4.2 (3.6-5.0) mmol/L Chloride 97 L (98-107) mmol/L Carbon Dioxide 25 (21-33) mmol/L Anion Gap 16 (10-20) BUN 59 H (7-21) mg/dL Creatinine 4.5 H (0.7-1.2) mg/dl Est GFR ( Amer) 12 Est GFR (Non-Af Amer) 10 POC Glucose (mg/dL) (65-110) mg/dL Random Glucose 248 H (70-110) mg/dL Calcium 7.8 L (8.4-10.5) mg/dL Phosphorus 8.0 H (2.5-4.5) mg/dL Magnesium 1.7 (1.7-2.2) mg/dL Iron (45-180) ug/dL TIBC (265-497) ug/dL % Saturation (20-55) % Total Bilirubin 0.5 (0.2-1.3) mg/dL AST 194 H D (14-36) U/L ALT 60 H (7-56) U/L Alkaline Phosphatase 220 H (38-126) U/L Total Protein 5.5 L (5.8-8.3) g/dL Albumin 2.5 L (3.0-4.8) g/dL Globulin 3.0 gm/dL Albumin/Globulin Ratio 0.8 L (1.1-1.8) Triglycerides 858 H (35-160) mg/dL Cholesterol 181 (130-200) mg/dL LDL Cholesterol Direct < 30 (0-129) mg/dL HDL Cholesterol 18 L (29-60) mg/dL Venous Blood Potassium (3.6-5.2) mmol/L Urine Osmolality (300-1000) mosm/kg Ur Random Creatinine mg/dL Ur Random Sodium meq/L Ur Random Urea Nitrogn mg/dL 03/18/18 03/17/18 03/17/18 Range/Units 00:10 22:17 17:01 WBC (4.5-11.0) 10^3/uL RBC (3.5-6.1) 10^6/uL Hgb (12.0-16.0) g/dL Hct (36.0-48.0) % MCV (80.0-105.0) fl MCH (25.0-35.0) pg MCHC (31.0-37.0) g/dl RDW (11.5-14.5) % Plt Count (120.0-450.0) 10^3/uL MPV (7.0-11.0) fl Motley % (Auto) (1.0-6.0) % Eos % (Auto) (1.5-5.0) % Baso % (Auto) (0.0-3.0) % Motley # (Auto) (0.1-0.6) Eos # (Auto) (0.0-0.7) Baso # (Auto) (0.0-2.0) K/mm3 Neutrophils % (Manual) (50.0-70.0) % Band Neutrophils % (0-2) % Lymphocytes % (Manual) (22.0-35.0) % Monocytes % (Manual) (1.0-6.0) % Myelocytes % % Platelet Evaluation (NORMAL) Hypochromasia pCO2 44 (35-45) mm/Hg pO2 86.0 (80-100) mm/Hg HCO3 20.7 L (21-28) mmol/L ABG pH 7.28 L (7.35-7.45) ABG Total CO2 22.1 (22-28) mmol.L ABG O2 Saturation 96.0 (95-98) % ABG O2 Content 15.3 (15-23) ML/dl ABG Base Excess -5.9 L (-2.0-3.0) mmol/L ABG Hemoglobin 11.4 L (11.7-17.4) g/dL ABG Carboxyhemoglobin 1.0 (0.5-1.5) % POC ABG HHb (Measured) 3.9 (0-5) % ABG Methemoglobin 0.3 (0.0-3.0) % ABG O2 Capacity 15.9 L (16-24) mL/dl VBG pH (7.32-7.43) VBG pCO2 (40-60) VBG HCO3 (21-28) mmol/l VBG Total CO2 (22-28) mmol.L VBG O2 Sat (Calc) (40-65) % VBG Base Excess (0.0-2.0) mmol/L VBG Potassium (3.6-5.2) mmol/L Hgb O2 Saturation 94.8 L (95.0-98.0) % Glucose (65-105) mg/dl Lactate (0.7-2.1) mmol/L FiO2 36.0 % Sodium (132-148) mmol/L Potassium (3.6-5.0) mmol/L Chloride (98-107) mmol/L Carbon Dioxide (21-33) mmol/L Anion Gap (10-20) BUN (7-21) mg/dL Creatinine (0.7-1.2) mg/dl Est GFR ( Amer) Est GFR (Non-Af Amer) POC Glucose (mg/dL) 191 H 229 H (65-110) mg/dL Random Glucose (70-110) mg/dL Calcium (8.4-10.5) mg/dL Phosphorus (2.5-4.5) mg/dL Magnesium (1.7-2.2) mg/dL Iron (45-180) ug/dL TIBC (265-497) ug/dL % Saturation (20-55) % Total Bilirubin (0.2-1.3) mg/dL AST (14-36) U/L ALT (7-56) U/L Alkaline Phosphatase (38-126) U/L Total Protein (5.8-8.3) g/dL Albumin (3.0-4.8) g/dL Globulin gm/dL Albumin/Globulin Ratio (1.1-1.8) Triglycerides (35-160) mg/dL Cholesterol (130-200) mg/dL LDL Cholesterol Direct (0-129) mg/dL HDL Cholesterol (29-60) mg/dL Venous Blood Potassium (3.6-5.2) mmol/L Urine Osmolality (300-1000) mosm/kg Ur Random Creatinine mg/dL Ur Random Sodium meq/L Ur Random Urea Nitrogn mg/dL 03/17/18 03/17/18 03/17/18 Range/Units 14:45 12:45 10:48 WBC (4.5-11.0) 10^3/uL RBC (3.5-6.1) 10^6/uL Hgb (12.0-16.0) g/dL Hct (36.0-48.0) % MCV (80.0-105.0) fl MCH (25.0-35.0) pg MCHC (31.0-37.0) g/dl RDW (11.5-14.5) % Plt Count (120.0-450.0) 10^3/uL MPV (7.0-11.0) fl Motley % (Auto) (1.0-6.0) % Eos % (Auto) (1.5-5.0) % Baso % (Auto) (0.0-3.0) % Motley # (Auto) (0.1-0.6) Eos # (Auto) (0.0-0.7) Baso # (Auto) (0.0-2.0) K/mm3 Neutrophils % (Manual) (50.0-70.0) % Band Neutrophils % (0-2) % Lymphocytes % (Manual) (22.0-35.0) % Monocytes % (Manual) (1.0-6.0) % Myelocytes % % Platelet Evaluation (NORMAL) Hypochromasia pCO2 (35-45) mm/Hg pO2 31 (80-100) mm/Hg HCO3 (21-28) mmol/L ABG pH (7.35-7.45) ABG Total CO2 (22-28) mmol.L ABG O2 Saturation (95-98) % ABG O2 Content (15-23) ML/dl ABG Base Excess (-2.0-3.0) mmol/L ABG Hemoglobin (11.7-17.4) g/dL ABG Carboxyhemoglobin (0.5-1.5) % POC ABG HHb (Measured) (0-5) % ABG Methemoglobin (0.0-3.0) % ABG O2 Capacity (16-24) mL/dl VBG pH 7.14 L* (7.32-7.43) VBG pCO2 44.0 (40-60) VBG HCO3 15.0 L (21-28) mmol/l VBG Total CO2 16.4 L (22-28) mmol.L VBG O2 Sat (Calc) 64.2 (40-65) % VBG Base Excess -13.6 L (0.0-2.0) mmol/L VBG Potassium 5.4 H (3.6-5.2) mmol/L Hgb O2 Saturation (95.0-98.0) % Glucose 221 H (65-105) mg/dl Lactate 0.5 L (0.7-2.1) mmol/L FiO2 21.0 % Sodium 130.0 L (132-148) mmol/L Potassium (3.6-5.0) mmol/L Chloride 98.0 (98-107) mmol/L Carbon Dioxide (21-33) mmol/L Anion Gap (10-20) BUN (7-21) mg/dL Creatinine (0.7-1.2) mg/dl Est GFR ( Amer) Est GFR (Non-Af Amer) POC Glucose (mg/dL) 205 H (65-110) mg/dL Random Glucose (70-110) mg/dL Calcium (8.4-10.5) mg/dL Phosphorus (2.5-4.5) mg/dL Magnesium (1.7-2.2) mg/dL Iron 51 (45-180) ug/dL TIBC 135 L (265-497) ug/dL % Saturation 38 (20-55) % Total Bilirubin (0.2-1.3) mg/dL AST (14-36) U/L ALT (7-56) U/L Alkaline Phosphatase (38-126) U/L Total Protein (5.8-8.3) g/dL Albumin (3.0-4.8) g/dL Globulin gm/dL Albumin/Globulin Ratio (1.1-1.8) Triglycerides (35-160) mg/dL Cholesterol (130-200) mg/dL LDL Cholesterol Direct (0-129) mg/dL HDL Cholesterol (29-60) mg/dL Venous Blood Potassium 5.4 H (3.6-5.2) mmol/L Urine Osmolality (300-1000) mosm/kg Ur Random Creatinine mg/dL Ur Random Sodium meq/L Ur Random Urea Nitrogn mg/dL 03/17/18 03/17/18 03/17/18 Range/Units 09:40 07:37 06:30 WBC (4.5-11.0) 10^3/uL RBC (3.5-6.1) 10^6/uL Hgb (12.0-16.0) g/dL Hct (36.0-48.0) % MCV (80.0-105.0) fl MCH (25.0-35.0) pg MCHC (31.0-37.0) g/dl RDW (11.5-14.5) % Plt Count (120.0-450.0) 10^3/uL MPV (7.0-11.0) fl Motley % (Auto) (1.0-6.0) % Eos % (Auto) (1.5-5.0) % Baso % (Auto) (0.0-3.0) % Motley # (Auto) (0.1-0.6) Eos # (Auto) (0.0-0.7) Baso # (Auto) (0.0-2.0) K/mm3 Neutrophils % (Manual) (50.0-70.0) % Band Neutrophils % (0-2) % Lymphocytes % (Manual) (22.0-35.0) % Monocytes % (Manual) (1.0-6.0) % Myelocytes % % Platelet Evaluation (NORMAL) Hypochromasia pCO2 38 (35-45) mm/Hg pO2 77.0 L (80-100) mm/Hg HCO3 12.4 L (21-28) mmol/L ABG pH 7.12 L* (7.35-7.45) ABG Total CO2 13.6 L (22-28) mmol.L ABG O2 Saturation 96.9 (95-98) % ABG O2 Content 10.9 L (15-23) ML/dl ABG Base Excess -15.8 L (-2.0-3.0) mmol/L ABG Hemoglobin 8.1 L (11.7-17.4) g/dL ABG Carboxyhemoglobin 2.3 H (0.5-1.5) % POC ABG HHb (Measured) 3.0 (0-5) % ABG Methemoglobin 0.4 (0.0-3.0) % ABG O2 Capacity 11.2 L (16-24) mL/dl VBG pH (7.32-7.43) VBG pCO2 (40-60) VBG HCO3 (21-28) mmol/l VBG Total CO2 (22-28) mmol.L VBG O2 Sat (Calc) (40-65) % VBG Base Excess (0.0-2.0) mmol/L VBG Potassium (3.6-5.2) mmol/L Hgb O2 Saturation 94.3 L (95.0-98.0) % Glucose (65-105) mg/dl Lactate (0.7-2.1) mmol/L FiO2 36.0 % Sodium (132-148) mmol/L Potassium (3.6-5.0) mmol/L Chloride (98-107) mmol/L Carbon Dioxide (21-33) mmol/L Anion Gap (10-20) BUN (7-21) mg/dL Creatinine (0.7-1.2) mg/dl Est GFR ( Amer) Est GFR (Non-Af Amer) POC Glucose (mg/dL) 174 H (65-110) mg/dL Random Glucose (70-110) mg/dL Calcium (8.4-10.5) mg/dL Phosphorus (2.5-4.5) mg/dL Magnesium (1.7-2.2) mg/dL Iron (45-180) ug/dL TIBC (265-497) ug/dL % Saturation (20-55) % Total Bilirubin (0.2-1.3) mg/dL AST (14-36) U/L ALT (7-56) U/L Alkaline Phosphatase (38-126) U/L Total Protein (5.8-8.3) g/dL Albumin (3.0-4.8) g/dL Globulin gm/dL Albumin/Globulin Ratio (1.1-1.8) Triglycerides (35-160) mg/dL Cholesterol (130-200) mg/dL LDL Cholesterol Direct (0-129) mg/dL HDL Cholesterol (29-60) mg/dL Venous Blood Potassium (3.6-5.2) mmol/L Urine Osmolality 296 L (300-1000) mosm/kg Ur Random Creatinine 82 mg/dL Ur Random Sodium 40 meq/L Ur Random Urea Nitrogn 305 mg/dL 03/17/18 Range/Units 06:30 WBC (4.5-11.0) 10^3/uL RBC (3.5-6.1) 10^6/uL Hgb (12.0-16.0) g/dL Hct (36.0-48.0) % MCV (80.0-105.0) fl MCH (25.0-35.0) pg MCHC (31.0-37.0) g/dl RDW (11.5-14.5) % Plt Count (120.0-450.0) 10^3/uL MPV (7.0-11.0) fl Motley % (Auto) (1.0-6.0) % Eos % (Auto) (1.5-5.0) % Baso % (Auto) (0.0-3.0) % Motley # (Auto) (0.1-0.6) Eos # (Auto) (0.0-0.7) Baso # (Auto) (0.0-2.0) K/mm3 Neutrophils % (Manual) (50.0-70.0) % Band Neutrophils % (0-2) % Lymphocytes % (Manual) (22.0-35.0) % Monocytes % (Manual) (1.0-6.0) % Myelocytes % % Platelet Evaluation (NORMAL) Hypochromasia pCO2 (35-45) mm/Hg pO2 (80-100) mm/Hg HCO3 (21-28) mmol/L ABG pH (7.35-7.45) ABG Total CO2 (22-28) mmol.L ABG O2 Saturation (95-98) % ABG O2 Content (15-23) ML/dl ABG Base Excess (-2.0-3.0) mmol/L ABG Hemoglobin (11.7-17.4) g/dL ABG Carboxyhemoglobin (0.5-1.5) % POC ABG HHb (Measured) (0-5) % ABG Methemoglobin (0.0-3.0) % ABG O2 Capacity (16-24) mL/dl VBG pH (7.32-7.43) VBG pCO2 (40-60) VBG HCO3 (21-28) mmol/l VBG Total CO2 (22-28) mmol.L VBG O2 Sat (Calc) (40-65) % VBG Base Excess (0.0-2.0) mmol/L VBG Potassium (3.6-5.2) mmol/L Hgb O2 Saturation (95.0-98.0) % Glucose (65-105) mg/dl Lactate (0.7-2.1) mmol/L FiO2 % Sodium 129 L (132-148) mmol/L Potassium 6.1 H* (3.6-5.0) mmol/L Chloride 99 (98-107) mmol/L Carbon Dioxide 13 L (21-33) mmol/L Anion Gap 24 H (10-20) BUN 103 H (7-21) mg/dL Creatinine 7.1 H (0.7-1.2) mg/dl Est GFR ( Amer) 7 Est GFR (Non-Af Amer) 6 POC Glucose (mg/dL) (65-110) mg/dL Random Glucose 170 H (70-110) mg/dL Calcium 7.7 L (8.4-10.5) mg/dL Phosphorus 10.2 H (2.5-4.5) mg/dL Magnesium 1.8 (1.7-2.2) mg/dL Iron (45-180) ug/dL TIBC (265-497) ug/dL % Saturation (20-55) % Total Bilirubin 0.8 (0.2-1.3) mg/dL AST 65 H (14-36) U/L ALT 39 (7-56) U/L Alkaline Phosphatase 187 H (38-126) U/L Total Protein 6.0 (5.8-8.3) g/dL Albumin 2.7 L (3.0-4.8) g/dL Globulin 3.3 gm/dL Albumin/Globulin Ratio 0.8 L (1.1-1.8) Triglycerides (35-160) mg/dL Cholesterol (130-200) mg/dL LDL Cholesterol Direct (0-129) mg/dL HDL Cholesterol (29-60) mg/dL Venous Blood Potassium (3.6-5.2) mmol/L Urine Osmolality (300-1000) mosm/kg Ur Random Creatinine mg/dL Ur Random Sodium meq/L Ur Random Urea Nitrogn mg/dL Laboratory Results - last 24 hr 03/17/18 03/17/18 03/17/18 06:30 06:30 07:37 WBC RBC Hgb Hct MCV MCH MCHC RDW Plt Count MPV Motley % (Auto) Eos % (Auto) Baso % (Auto) Motley # (Auto) Eos # (Auto) Baso # (Auto) Neutrophils % (Manual) Band Neutrophils % Lymphocytes % (Manual) Monocytes % (Manual) Myelocytes % Platelet Evaluation Hypochromasia pCO2 pO2 HCO3 ABG pH ABG Total CO2 ABG O2 Saturation ABG O2 Content ABG Base Excess ABG Hemoglobin ABG Carboxyhemoglobin POC ABG HHb (Measured) ABG Methemoglobin ABG O2 Capacity VBG pH VBG pCO2 VBG HCO3 VBG Total CO2 VBG O2 Sat (Calc) VBG Base Excess VBG Potassium Hgb O2 Saturation Glucose Lactate FiO2 Sodium 129 L Potassium 6.1 H* Chloride 99 Carbon Dioxide 13 L Anion Gap 24 H BUN 103 H Creatinine 7.1 H Est GFR ( Amer) 7 Est GFR (Non-Af Amer) 6 POC Glucose (mg/dL) 174 H Random Glucose 170 H Calcium 7.7 L Phosphorus 10.2 H Magnesium 1.8 Iron TIBC % Saturation Total Bilirubin 0.8 AST 65 H ALT 39 Alkaline Phosphatase 187 H Total Protein 6.0 Albumin 2.7 L Globulin 3.3 Albumin/Globulin Ratio 0.8 L Triglycerides Cholesterol LDL Cholesterol Direct HDL Cholesterol Venous Blood Potassium Urine Osmolality 296 L Ur Random Creatinine 82 Ur Random Sodium 40 Ur Random Urea Nitrogn 305 03/17/18 03/17/18 03/17/18 09:40 10:48 12:45 WBC RBC Hgb Hct MCV MCH MCHC RDW Plt Count MPV Motley % (Auto) Eos % (Auto) Baso % (Auto) Motley # (Auto) Eos # (Auto) Baso # (Auto) Neutrophils % (Manual) Band Neutrophils % Lymphocytes % (Manual) Monocytes % (Manual) Myelocytes % Platelet Evaluation Hypochromasia pCO2 38 pO2 77.0 L HCO3 12.4 L ABG pH 7.12 L* ABG Total CO2 13.6 L ABG O2 Saturation 96.9 ABG O2 Content 10.9 L ABG Base Excess -15.8 L ABG Hemoglobin 8.1 L ABG Carboxyhemoglobin 2.3 H POC ABG HHb (Measured) 3.0 ABG Methemoglobin 0.4 ABG O2 Capacity 11.2 L VBG pH VBG pCO2 VBG HCO3 VBG Total CO2 VBG O2 Sat (Calc) VBG Base Excess VBG Potassium Hgb O2 Saturation 94.3 L Glucose Lactate FiO2 36.0 Sodium Potassium Chloride Carbon Dioxide Anion Gap BUN Creatinine Est GFR ( Amer) Est GFR (Non-Af Amer) POC Glucose (mg/dL) 205 H Random Glucose Calcium Phosphorus Magnesium Iron 51 TIBC 135 L % Saturation 38 Total Bilirubin AST ALT Alkaline Phosphatase Total Protein Albumin Globulin Albumin/Globulin Ratio Triglycerides Cholesterol LDL Cholesterol Direct HDL Cholesterol Venous Blood Potassium Urine Osmolality Ur Random Creatinine Ur Random Sodium Ur Random Urea Nitrogn 03/17/18 03/17/18 03/17/18 14:45 17:01 22:17 WBC RBC Hgb Hct MCV MCH MCHC RDW Plt Count MPV [place] % (Auto) Eos % (Auto) Baso % (Auto) Motley # (Auto) Eos # (Auto) Baso # (Auto) Neutrophils % (Manual) Band Neutrophils % Lymphocytes % (Manual) Monocytes % (Manual) Myelocytes % Platelet Evaluation Hypochromasia pCO2 pO2 31 HCO3 ABG pH ABG Total CO2 ABG O2 Saturation ABG O2 Content ABG Base Excess ABG Hemoglobin ABG Carboxyhemoglobin POC ABG HHb (Measured) ABG Methemoglobin ABG O2 Capacity VBG pH 7.14 L* VBG pCO2 44.0 VBG HCO3 15.0 L VBG Total CO2 16.4 L VBG O2 Sat (Calc) 64.2 VBG Base Excess -13.6 L VBG Potassium 5.4 H Hgb O2 Saturation Glucose 221 H Lactate 0.5 L FiO2 21.0 Sodium 130.0 L Potassium Chloride 98.0 Carbon Dioxide Anion Gap BUN Creatinine Est GFR ( Amer) Est GFR (Non-Af Amer) POC Glucose (mg/dL) 229 H 191 H Random Glucose Calcium Phosphorus Magnesium Iron TIBC % Saturation Total Bilirubin AST ALT Alkaline Phosphatase Total Protein Albumin Globulin Albumin/Globulin Ratio Triglycerides Cholesterol LDL Cholesterol Direct HDL Cholesterol Venous Blood Potassium 5.4 H Urine Osmolality Ur Random Creatinine Ur Random Sodium Ur Random Urea Nitrogn 03/18/18 03/18/18 03/18/18 00:10 05:20 05:20 WBC 26.4 H* RBC 2.54 L Hgb 7.4 L Hct 21.3 L MCV 83.9 MCH 29.1 MCHC 34.7 RDW 16.6 H Plt Count 271 MPV 10.0 Motley % (Auto) 4.4 Eos % (Auto) 0.3 L Baso % (Auto) 0.1 Motley # (Auto) 1.2 H Eos # (Auto) 0.1 Baso # (Auto) 0.02 Neutrophils % (Manual) 83 H Band Neutrophils % 9 H Lymphocytes % (Manual) 2 L Monocytes % (Manual) 4 Myelocytes % 2 Platelet Evaluation Normal Hypochromasia 1+ pCO2 44 pO2 86.0 HCO3 20.7 L ABG pH 7.28 L ABG Total CO2 22.1 ABG O2 Saturation 96.0 ABG O2 Content 15.3 ABG Base Excess -5.9 L ABG Hemoglobin 11.4 L ABG Carboxyhemoglobin 1.0 POC ABG HHb (Measured) 3.9 ABG Methemoglobin 0.3 ABG O2 Capacity 15.9 L VBG pH VBG pCO2 VBG HCO3 VBG Total CO2 VBG O2 Sat (Calc) VBG Base Excess VBG Potassium Hgb O2 Saturation 94.8 L Glucose Lactate FiO2 36.0 Sodium 134 Potassium 4.2 Chloride 97 L Carbon Dioxide 25 Anion Gap 16 BUN 59 H Creatinine 4.5 H Est GFR ( Amer) 12 Est GFR (Non-Af Amer) 10 POC Glucose (mg/dL) Random Glucose 248 H Calcium 7.8 L Phosphorus 8.0 H Magnesium 1.7 Iron TIBC % Saturation Total Bilirubin 0.5 AST 194 H D ALT 60 H Alkaline Phosphatase 220 H Total Protein 5.5 L Albumin 2.5 L Globulin 3.0 Albumin/Globulin Ratio 0.8 L Triglycerides 858 H Cholesterol 181 LDL Cholesterol Direct < 30 HDL Cholesterol 18 L Venous Blood Potassium Urine Osmolality Ur Random Creatinine Ur Random Sodium Ur Random Urea Nitrogn 03/18/18 06:34 WBC RBC Hgb Hct MCV MCH MCHC RDW Plt Count MPV [place] % (Auto) Eos % (Auto) Baso % (Auto) Motley # (Auto) Eos # (Auto) Baso # (Auto) Neutrophils % (Manual) Band Neutrophils % Lymphocytes % (Manual) Monocytes % (Manual) Myelocytes % Platelet Evaluation Hypochromasia pCO2 41 pO2 96.0 HCO3 21.1 ABG pH 7.32 L ABG Total CO2 22.4 ABG O2 Saturation 97.5 ABG O2 Content 9.2 L ABG Base Excess -4.6 L ABG Hemoglobin 6.7 L ABG Carboxyhemoglobin 1.5 POC ABG HHb (Measured) 2.4 ABG Methemoglobin 1.0 ABG O2 Capacity 9.4 L VBG pH VBG pCO2 VBG HCO3 VBG Total CO2 VBG O2 Sat (Calc) VBG Base Excess VBG Potassium Hgb O2 Saturation 95.1 Glucose Lactate FiO2 36.0 Sodium Potassium Chloride Carbon Dioxide Anion Gap BUN Creatinine Est GFR ( Amer) Est GFR (Non-Af Amer) POC Glucose (mg/dL) Random Glucose Calcium Phosphorus Magnesium Iron TIBC % Saturation Total Bilirubin AST ALT Alkaline Phosphatase Total Protein Albumin Globulin Albumin/Globulin Ratio Triglycerides Cholesterol LDL Cholesterol Direct HDL Cholesterol Venous Blood Potassium Urine Osmolality Ur Random Creatinine Ur Random Sodium Ur Random Urea Nitrogn Fingerstick Blood Sugar Results: 191 Critical Care Progress Note - Nutrition Nutrition: Nutrition Category Date Time Status NPO Diet [DIET] Diets 03/16/18 Lunch Ordered Assessment/Plan - Assessment and Plan (Free Text) Assessment: 57 y/o F with PMH of COPD, obesity, HTN, CHF, DM, diabetic neuropathy, CKD, charcot foot and cellulitis of LE admitted to ICU for septic shock in the setting of cellulitis s/p I&D of left foot. Developed hyperkalemic metabolic acidosis required emergent dialysis Plan: Neuro: - Patient AOx3. lethargy is getting better - Maintain normothermia CV: - h/o CHF s/p PCI - BP normalized 119/59 - Titrate then wean off Levophed - Echo: EF 59.5%, mild LVH - Continue lipitor, plavix - Maintain MAP>65 - Cardio following Pulm: - h/o COPD - AB.32, 41, 96, 21.1 - Continue Duoneb Q6H - Continue home med cingulair - CXR: no acute pathology - Maintain O2 sat > 90% GI: - Advance diet to soft - TG 858, on lipitor - lipase ordered - AST/ALT 194/60 Renal: - JAMIL on CKD likely due to sepsis - Hyperkalemic metabolic alkalosis: kayexelate, D50, insulin given initially - Patient went for emergent dialysis through [facility] cather placed in ICU - BUN/Cr 59/4.5 - I/O: 4533/1305 in last 24 hours - Renal US: right upper pole renal cyst - UA ordered - Moore catheter in place - Avoid nephrotoxic agents - Nephrology following - Urology following Heme: - H/H baseline 9.4/30.3 today 7.4/21.3 - Patient stable - s/p 3 units of PRBC transfusion (1 unit pre-op, 2 units in ICU) - Monitor H/H and transfuse to maintain Hgb > 7 - Plavix Endo: - complicated DM2 with neuropathy, charcot foot - ISS-med - Levemir 20U daily - Accuchecks ACHS - Maintain euglycemia ID: - Septic shock secondary to bacteremia - Leukocytosis increasing since surgery - CRP 220 - Blood culture showed S Aureus; repeat is negative - Wound culture showed staph aureus - Continue Daptomycin and Meropenem per ID MSK: - POD#2 for I&D of left foot - Left foot dressing applied. no oozing of blood - Left foot xray showed erosion of the 4th metatarsal - MRI of left foot: read pending - Continue home med xanaflex - Pain med prn - Podiatry following - h/o fibromyalgia: continue home med zanaflex Prophylaxis: - GI ppx: Protonix - DVT ppx: Case reviewed and plan discussed with Dr. Jf Petersen, DO PGY1 <Chay Rhoades - Last Filed: 03/18/18 14:04> CCU Objective - Vital Signs / Intake & Output Vital Signs (Last 4 hours): Vital Signs Temp Pulse Resp BP Pulse Ox 03/18/18 10:45 97 H 129/64 96 03/18/18 10:40 94 H 100 03/18/18 10:30 95 H 123/65 100 03/18/18 10:20 95 H 96 03/18/18 10:15 94 H 113/54 L 95 03/18/18 10:10 94 H 100 03/18/18 10:00 98.2 F 96 H 24 123/60 100 Intake and Output (Last 8hrs): Intake & Output 03/17/18 03/18/18 03/18/18 22:59 06:59 14:59 Intake Total 2774 1509 65 Output Total 1030 275 Balance 1744 1234 65 Intake: IV 2594 1464 65 Right Forearm 1900 900 Right Internal Jugular 444 229 Oral 180 45 Output: Urine 30 275 Urethral (Moore) 30 275 Stool 0 Other 1000 - Medications Active Medications: Active Medications Generic Name Dose Route Start Last Admin Trade Name Freq PRN Reason Stop Dose Admin Acetaminophen 650 mg 03/14/18 14:24 03/15/18 18:14 Tylenol 325mg Tab PO 650 mg Q6H PRN Administration Pain, moderate (4-7) Albuterol/Ipratropium 3 ml 03/18/18 07:15 03/18/18 13:40 Duoneb 3 Mg/0.5 Mg (3 Ml) Ud IH 3 ml Q6H MAMADOU Administration Allopurinol 100 mg 03/17/18 10:00 03/17/18 10:32 Zyloprim PO 100 mg DAILY MAMADOU Administration Atorvastatin Calcium 20 mg 03/15/18 10:00 03/18/18 09:50 Lipitor PO 20 mg DAILY MAMADOU Administration Clopidogrel Bisulfate 75 mg 03/14/18 14:30 03/15/18 10:20 Plavix PO 75 mg DAILY MAMADOU Administration Meropenem/Sodium Chloride 500 mg in 50 mls @ 100 mls/hr 03/14/18 22:00 03/18/18 09:46 Merrem Iv 500 Mg/Ns 50 Ml IVPB 03/23/18 22:01 100 mls/hr Q12 MAMADOU Administration Protocol NOREPINEPHRINE BIT/0.9 % NACL 4 mg in 250 mls @ 15 mls/hr 03/16/18 23:43 03/18/18 09:51 Levophed 4 Mg/ 250 Ml Ns Premixed IV 2 mcg/min .[id number] PRN 7.5 mls/hr TITRATE PER MD ORDER Titration Protocol 4 MCG/MIN Insulin Detemir 20 unit 03/18/18 22:00 Levemir SC HS MAMADOU Insulin Human Lispro 0 units 03/14/18 16:30 03/18/18 12:28 Humalog Med SC Not Given ACHS MAMADOU Montelukast Sodium 10 mg 03/14/18 22:00 03/17/18 21:58 Singulair PO 10 mg HS MAMADOU Administration Home Med - 25 mg 03/14/18 18:00 03/18/18 13:25 Fluvoxamine [Luvox] PO Not Given 25 Mg BID MAMADOU Home Med - 1 puff 03/14/18 22:00 03/17/18 22:19 Umeclidinium [place] [facility] Not Given [Incruse Ellipta] 1 HS [facility] Puff Nortriptyline HCl 50 mg 03/15/18 23:00 03/17/18 21:57 Pamelor PO 50 mg HS MAMADOU Administration Oxychlorosene Sodium 2 gm 03/16/18 22:00 03/18/18 09:46 Clorpactin Wcs-90 TOP 2 gm Q12 MAMADOU Administration Oxycodone/Acetaminophen 1 tab 03/15/18 21:55 03/17/18 23:42 Percocet 5/325 Mg Tab PO 03/18/18 21:56 1 tab Q6H PRN Administration pain Oxymetazoline HCl 0 ml 03/15/18 14:00 03/18/18 13:30 Afrin 0.05% NS 2 spray TID MAMADOU Administration Pantoprazole Sodium 20 mg 03/15/18 07:30 03/18/18 08:12 Protonix Ec Tab PO 20 mg ACB MAMADOU Administration Quetiapine Fumarate 100 mg 03/14/18 22:00 11/25/18 21:56 Seroquel Xr PO 100 mg HS MAMADOU Administration Protocol Silver Sulfadiazine 1 gm 03/14/18 18:00 03/17/18 17:04 Silvadene 1% 25 Gm TP Not Given BID MAMADOU Tizanidine HCl 2 mg 03/14/18 18:00 03/18/18 06:24 Zanaflex PO 2 mg Q6 MAMADOU Administration - Patient Studies Lab Studies: Microbiology Studies 03/16/18 20:15 MRSA Culture (Admit) - Final Naris MRSA NOT DETECTED 03/16/18 09:40 Blood Culture - Preliminary Blood NO GROWTH AFTER 48 HOURS 03/16/18 09:15 Blood Culture - Preliminary Blood NO GROWTH AFTER 48 HOURS 03/14/18 12:30 Blood Culture - Final Blood Staphylococcus Aureus Gram Stain - Final 03/14/18 12:55 S.aureus & Coag-Neg Staph PNA FISH - Final Blood Blood Culture - Final Staphylococcus Aureus Gram Stain - Final 03/14/18 17:00 Gram Stain - Final Foot - Left Wound Culture - Final Staphylococcus Aureus Lab Studies 03/18/18 03/18/18 03/18/18 Range/Units 12:26 10:00 06:34 WBC (4.5-11.0) 10^3/uL RBC (3.5-6.1) 10^6/uL Hgb (12.0-16.0) g/dL Hct (36.0-48.0) % MCV (80.0-105.0) fl MCH (25.0-35.0) pg MCHC (31.0-37.0) g/dl RDW (11.5-14.5) % Plt Count (120.0-450.0) 10^3/uL MPV (7.0-11.0) fl Motley % (Auto) (1.0-6.0) % Eos % (Auto) (1.5-5.0) % Baso % (Auto) (0.0-3.0) % Motley # (Auto) (0.1-0.6) Eos # (Auto) (0.0-0.7) Baso # (Auto) (0.0-2.0) K/mm3 Neutrophils % (Manual) (50.0-70.0) % Band Neutrophils % (0-2) % Lymphocytes % (Manual) (22.0-35.0) % Monocytes % (Manual) (1.0-6.0) % Myelocytes % % Platelet Evaluation (NORMAL) Hypochromasia pCO2 41 (35-45) mm/Hg pO2 96.0 (30-55) mm/Hg HCO3 21.1 (21-28) mmol/L ABG pH 7.32 L (7.35-7.45) ABG Total CO2 22.4 (22-28) mmol.L ABG O2 Saturation 97.5 (95-98) % ABG O2 Content 9.2 L (15-23) ML/dl ABG Base Excess -4.6 L (-2.0-3.0) mmol/L ABG Hemoglobin 6.7 L (11.7-17.4) g/dL ABG Carboxyhemoglobin 1.5 (0.5-1.5) % POC ABG HHb (Measured) 2.4 (0-5) % ABG Methemoglobin 1.0 (0.0-3.0) % ABG O2 Capacity 9.4 L (16-24) mL/dl VBG pH (7.32-7.43) VBG pCO2 (40-60) VBG HCO3 (21-28) mmol/l VBG Total CO2 (22-28) mmol.L VBG O2 Sat (Calc) (40-65) % VBG Base Excess (0.0-2.0) mmol/L VBG Potassium (3.6-5.2) mmol/L Hgb O2 Saturation 95.1 (95.0-98.0) % Sodium (132-148) mmol/L Chloride (98-107) mmol/L Glucose (65-105) mg/dl Lactate (0.7-2.1) mmol/L FiO2 36.0 % Potassium (3.6-5.0) mmol/L Carbon Dioxide (21-33) mmol/L Anion Gap (10-20) BUN (7-21) mg/dL Creatinine (0.7-1.2) mg/dl Est GFR ( Amer) Est GFR (Non-Af Amer) POC Glucose (mg/dL) 216 H (65-110) mg/dL Random Glucose (70-110) mg/dL Hemoglobin A1c (4.2-6.5) % Calcium (8.4-10.5) mg/dL Phosphorus (2.5-4.5) mg/dL Magnesium (1.7-2.2) mg/dL Total Bilirubin (0.2-1.3) mg/dL AST (14-36) U/L ALT (7-56) U/L Alkaline Phosphatase (38-126) U/L Total Protein (5.8-8.3) g/dL Albumin (3.0-4.8) g/dL Globulin gm/dL Albumin/Globulin Ratio (1.1-1.8) Triglycerides (35-160) mg/dL Cholesterol (130-200) mg/dL LDL Cholesterol Direct (0-129) mg/dL HDL Cholesterol (29-60) mg/dL Lipase 345 H (23-300) U/L Venous Blood Potassium (3.6-5.2) mmol/L Hep Bs Antigen (NEGATIVE) Hep Bs Antibody (NEGATIVE) 03/18/18 03/18/18 03/18/18 Range/Units 05:20 05:20 05:20 WBC 26.4 H* (4.5-11.0) 10^3/uL RBC 2.54 L (3.5-6.1) 10^6/uL Hgb 7.4 L (12.0-16.0) g/dL Hct 21.3 L (36.0-48.0) % MCV 83.9 (80.0-105.0) fl MCH 29.1 (25.0-35.0) pg MCHC 34.7 (31.0-37.0) g/dl RDW 16.6 H (11.5-14.5) % Plt Count 271 (120.0-450.0) 10^3/uL MPV 10.0 (7.0-11.0) fl Motley % (Auto) 4.4 (1.0-6.0) % Eos % (Auto) 0.3 L (1.5-5.0) % Baso % (Auto) 0.1 (0.0-3.0) % Motley # (Auto) 1.2 H (0.1-0.6) Eos # (Auto) 0.1 (0.0-0.7) Baso # (Auto) 0.02 (0.0-2.0) K/mm3 Neutrophils % (Manual) 83 H (50.0-70.0) % Band Neutrophils % 9 H (0-2) % Lymphocytes % (Manual) 2 L (22.0-35.0) % Monocytes % (Manual) 4 (1.0-6.0) % Myelocytes % 2 % Platelet Evaluation Normal (NORMAL) Hypochromasia 1+ pCO2 (35-45) mm/Hg pO2 (30-55) mm/Hg HCO3 (21-28) mmol/L ABG pH (7.35-7.45) ABG Total CO2 (22-28) mmol.L ABG O2 Saturation (95-98) % ABG O2 Content (15-23) ML/dl ABG Base Excess (-2.0-3.0) mmol/L ABG Hemoglobin (11.7-17.4) g/dL ABG Carboxyhemoglobin (0.5-1.5) % POC ABG HHb (Measured) (0-5) % ABG Methemoglobin (0.0-3.0) % ABG O2 Capacity (16-24) mL/dl VBG pH (7.32-7.43) VBG pCO2 (40-60) VBG HCO3 (21-28) mmol/l VBG Total CO2 (22-28) mmol.L VBG O2 Sat (Calc) (40-65) % VBG Base Excess (0.0-2.0) mmol/L VBG Potassium (3.6-5.2) mmol/L Hgb O2 Saturation (95.0-98.0) % Sodium 134 (132-148) mmol/L Chloride 97 L (98-107) mmol/L Glucose (65-105) mg/dl Lactate (0.7-2.1) mmol/L FiO2 % Potassium 4.2 (3.6-5.0) mmol/L Carbon Dioxide 25 (21-33) mmol/L Anion Gap 16 (10-20) BUN 59 H (7-21) mg/dL Creatinine 4.5 H (0.7-1.2) mg/dl Est GFR ( Amer) 12 Est GFR (Non-Af Amer) 10 POC Glucose (mg/dL) (65-110) mg/dL Random Glucose 248 H (70-110) mg/dL Hemoglobin A1c 8.2 H (4.2-6.5) % Calcium 7.8 L (8.4-10.5) mg/dL Phosphorus 8.0 H (2.5-4.5) mg/dL Magnesium 1.7 (1.7-2.2) mg/dL Total Bilirubin 0.5 (0.2-1.3) mg/dL AST 194 H D (14-36) U/L ALT 60 H (7-56) U/L Alkaline Phosphatase 220 H (38-126) U/L Total Protein 5.5 L (5.8-8.3) g/dL Albumin 2.5 L (3.0-4.8) g/dL Globulin 3.0 gm/dL Albumin/Globulin Ratio 0.8 L (1.1-1.8) Triglycerides 858 H (35-160) mg/dL Cholesterol 181 (130-200) mg/dL LDL Cholesterol Direct < 30 (0-129) mg/dL HDL Cholesterol 18 L (29-60) mg/dL Lipase (23-300) U/L Venous Blood Potassium (3.6-5.2) mmol/L Hep Bs Antigen (NEGATIVE) Hep Bs Antibody (NEGATIVE) 03/18/18 03/17/18 03/17/18 Range/Units 00:10 22:17 17:01 WBC (4.5-11.0) 10^3/uL RBC (3.5-6.1) 10^6/uL Hgb (12.0-16.0) g/dL Hct (36.0-48.0) % MCV (80.0-105.0) fl MCH (25.0-35.0) pg MCHC (31.0-37.0) g/dl RDW (11.5-14.5) % Plt Count (120.0-450.0) 10^3/uL MPV (7.0-11.0) fl Motley % (Auto) (1.0-6.0) % Eos % (Auto) (1.5-5.0) % Baso % (Auto) (0.0-3.0) % Motley # (Auto) (0.1-0.6) Eos # (Auto) (0.0-0.7) Baso # (Auto) (0.0-2.0) K/mm3 Neutrophils % (Manual) (50.0-70.0) % Band Neutrophils % (0-2) % Lymphocytes % (Manual) (22.0-35.0) % Monocytes % (Manual) (1.0-6.0) % Myelocytes % % Platelet Evaluation (NORMAL) Hypochromasia pCO2 44 (35-45) mm/Hg pO2 86.0 (30-55) mm/Hg HCO3 20.7 L (21-28) mmol/L ABG pH 7.28 L (7.35-7.45) ABG Total CO2 22.1 (22-28) mmol.L ABG O2 Saturation 96.0 (95-98) % ABG O2 Content 15.3 (15-23) ML/dl ABG Base Excess -5.9 L (-2.0-3.0) mmol/L ABG Hemoglobin 11.4 L (11.7-17.4) g/dL ABG Carboxyhemoglobin 1.0 (0.5-1.5) % POC ABG HHb (Measured) 3.9 (0-5) % ABG Methemoglobin 0.3 (0.0-3.0) % ABG O2 Capacity 15.9 L (16-24) mL/dl VBG pH (7.32-7.43) VBG pCO2 (40-60) VBG HCO3 (21-28) mmol/l VBG Total CO2 (22-28) mmol.L VBG O2 Sat (Calc) (40-65) % VBG Base Excess (0.0-2.0) mmol/L VBG Potassium (3.6-5.2) mmol/L Hgb O2 Saturation 94.8 L (95.0-98.0) % Sodium (132-148) mmol/L Chloride (98-107) mmol/L Glucose (65-105) mg/dl Lactate (0.7-2.1) mmol/L FiO2 36.0 % Potassium (3.6-5.0) mmol/L Carbon Dioxide (21-33) mmol/L Anion Gap (10-20) BUN (7-21) mg/dL Creatinine (0.7-1.2) mg/dl Est GFR ( Amer) Est GFR (Non-Af Amer) POC Glucose (mg/dL) 191 H 229 H (65-110) mg/dL Random Glucose (70-110) mg/dL Hemoglobin A1c (4.2-6.5) % Calcium (8.4-10.5) mg/dL Phosphorus (2.5-4.5) mg/dL Magnesium (1.7-2.2) mg/dL Total Bilirubin (0.2-1.3) mg/dL AST (14-36) U/L ALT (7-56) U/L Alkaline Phosphatase (38-126) U/L Total Protein (5.8-8.3) g/dL Albumin (3.0-4.8) g/dL Globulin gm/dL Albumin/Globulin Ratio (1.1-1.8) Triglycerides (35-160) mg/dL Cholesterol (130-200) mg/dL LDL Cholesterol Direct (0-129) mg/dL HDL Cholesterol (29-60) mg/dL Lipase (23-300) U/L Venous Blood Potassium (3.6-5.2) mmol/L Hep Bs Antigen (NEGATIVE) Hep Bs Antibody (NEGATIVE) 03/17/18 03/17/18 03/17/18 Range/Units 16:25 14:45 14:38 WBC (4.5-11.0) 10^3/uL RBC (3.5-6.1) 10^6/uL Hgb (12.0-16.0) g/dL Hct (36.0-48.0) % MCV (80.0-105.0) fl MCH (25.0-35.0) pg MCHC (31.0-37.0) g/dl RDW (11.5-14.5) % Plt Count (120.0-450.0) 10^3/uL MPV (7.0-11.0) fl Motley % (Auto) (1.0-6.0) % Eos % (Auto) (1.5-5.0) % Baso % (Auto) (0.0-3.0) % Motley # (Auto) (0.1-0.6) Eos # (Auto) (0.0-0.7) Baso # (Auto) (0.0-2.0) K/mm3 Neutrophils % (Manual) (50.0-70.0) % Band Neutrophils % (0-2) % Lymphocytes % (Manual) (22.0-35.0) % Monocytes % (Manual) (1.0-6.0) % Myelocytes % % Platelet Evaluation (NORMAL) Hypochromasia pCO2 (35-45) mm/Hg pO2 31 (30-55) mm/Hg HCO3 (21-28) mmol/L ABG pH (7.35-7.45) ABG Total CO2 (22-28) mmol.L ABG O2 Saturation (95-98) % ABG O2 Content (15-23) ML/dl ABG Base Excess (-2.0-3.0) mmol/L ABG Hemoglobin (11.7-17.4) g/dL ABG Carboxyhemoglobin (0.5-1.5) % POC ABG HHb (Measured) (0-5) % ABG Methemoglobin (0.0-3.0) % ABG O2 Capacity (16-24) mL/dl VBG pH 7.14 L* (7.32-7.43) VBG pCO2 44.0 (40-60) VBG HCO3 15.0 L (21-28) mmol/l VBG Total CO2 16.4 L (22-28) mmol.L VBG O2 Sat (Calc) 64.2 (40-65) % VBG Base Excess -13.6 L (0.0-2.0) mmol/L VBG Potassium 5.4 H (3.6-5.2) mmol/L Hgb O2 Saturation (95.0-98.0) % Sodium 130.0 L (132-148) mmol/L Chloride 98.0 (98-107) mmol/L Glucose 221 H (65-105) mg/dl Lactate 0.5 L (0.7-2.1) mmol/L FiO2 21.0 % Potassium (3.6-5.0) mmol/L Carbon Dioxide (21-33) mmol/L Anion Gap (10-20) BUN (7-21) mg/dL Creatinine (0.7-1.2) mg/dl Est GFR ( Amer) Est GFR (Non-Af Amer) POC Glucose (mg/dL) (65-110) mg/dL Random Glucose (70-110) mg/dL Hemoglobin A1c (4.2-6.5) % Calcium (8.4-10.5) mg/dL Phosphorus (2.5-4.5) mg/dL Magnesium (1.7-2.2) mg/dL Total Bilirubin (0.2-1.3) mg/dL AST (14-36) U/L ALT (7-56) U/L Alkaline Phosphatase (38-126) U/L Total Protein (5.8-8.3) g/dL Albumin (3.0-4.8) g/dL Globulin gm/dL Albumin/Globulin Ratio (1.1-1.8) Triglycerides (35-160) mg/dL Cholesterol (130-200) mg/dL LDL Cholesterol Direct (0-129) mg/dL HDL Cholesterol (29-60) mg/dL Lipase (23-300) U/L Venous Blood Potassium 5.4 H (3.6-5.2) mmol/L Hep Bs Antigen Negative (NEGATIVE) Hep Bs Antibody Negative (NEGATIVE) 03/17/18 03/17/18 Range/Units 10:48 07:37 WBC (4.5-11.0) 10^3/uL RBC (3.5-6.1) 10^6/uL Hgb (12.0-16.0) g/dL Hct (36.0-48.0) % MCV (80.0-105.0) fl MCH (25.0-35.0) pg MCHC (31.0-37.0) g/dl RDW (11.5-14.5) % Plt Count (120.0-450.0) 10^3/uL MPV (7.0-11.0) fl Motley % (Auto) (1.0-6.0) % Eos % (Auto) (1.5-5.0) % Baso % (Auto) (0.0-3.0) % Motley # (Auto) (0.1-0.6) Eos # (Auto) (0.0-0.7) Baso # (Auto) (0.0-2.0) K/mm3 Neutrophils % (Manual) (50.0-70.0) % Band Neutrophils % (0-2) % Lymphocytes % (Manual) (22.0-35.0) % Monocytes % (Manual) (1.0-6.0) % Myelocytes % % Platelet Evaluation (NORMAL) Hypochromasia pCO2 (35-45) mm/Hg pO2 (30-55) mm/Hg HCO3 (21-28) mmol/L ABG pH (7.35-7.45) ABG Total CO2 (22-28) mmol.L ABG O2 Saturation (95-98) % ABG O2 Content (15-23) ML/dl ABG Base Excess (-2.0-3.0) mmol/L ABG Hemoglobin (11.7-17.4) g/dL ABG Carboxyhemoglobin (0.5-1.5) % POC ABG HHb (Measured) (0-5) % ABG Methemoglobin (0.0-3.0) % ABG O2 Capacity (16-24) mL/dl VBG pH (7.32-7.43) VBG pCO2 (40-60) VBG HCO3 (21-28) mmol/l VBG Total CO2 (22-28) mmol.L VBG O2 Sat (Calc) (40-65) % VBG Base Excess (0.0-2.0) mmol/L VBG Potassium (3.6-5.2) mmol/L Hgb O2 Saturation (95.0-98.0) % Sodium (132-148) mmol/L Chloride (98-107) mmol/L Glucose (65-105) mg/dl Lactate (0.7-2.1) mmol/L FiO2 % Potassium (3.6-5.0) mmol/L Carbon Dioxide (21-33) mmol/L Anion Gap (10-20) BUN (7-21) mg/dL Creatinine (0.7-1.2) mg/dl Est GFR ( Amer) Est GFR (Non-Af Amer) POC Glucose (mg/dL) 205 H 174 H (65-110) mg/dL Random Glucose (70-110) mg/dL Hemoglobin A1c (4.2-6.5) % Calcium (8.4-10.5) mg/dL Phosphorus (2.5-4.5) mg/dL Magnesium (1.7-2.2) mg/dL Total Bilirubin (0.2-1.3) mg/dL AST (14-36) U/L ALT (7-56) U/L Alkaline Phosphatase (38-126) U/L Total Protein (5.8-8.3) g/dL Albumin (3.0-4.8) g/dL Globulin gm/dL Albumin/Globulin Ratio (1.1-1.8) Triglycerides (35-160) mg/dL Cholesterol (130-200) mg/dL LDL Cholesterol Direct (0-129) mg/dL HDL Cholesterol (29-60) mg/dL Lipase (23-300) U/L Venous Blood Potassium (3.6-5.2) mmol/L Hep Bs Antigen (NEGATIVE) Hep Bs Antibody (NEGATIVE) Laboratory Results - last 24 hr 03/17/18 03/17/18 03/17/18 07:37 10:48 14:38 WBC RBC Hgb Hct MCV MCH MCHC RDW Plt Count MPV Motley % (Auto) Eos % (Auto) Baso % (Auto) Motley # (Auto) Eos # (Auto) Baso # (Auto) Neutrophils % (Manual) Band Neutrophils % Lymphocytes % (Manual) Monocytes % (Manual) Myelocytes % Platelet Evaluation Hypochromasia pCO2 pO2 HCO3 ABG pH ABG Total CO2 ABG O2 Saturation ABG O2 Content ABG Base Excess ABG Hemoglobin ABG Carboxyhemoglobin POC ABG HHb (Measured) ABG Methemoglobin ABG O2 Capacity VBG pH VBG pCO2 VBG HCO3 VBG Total CO2 VBG O2 Sat (Calc) VBG Base Excess VBG Potassium Hgb O2 Saturation Sodium Chloride Glucose Lactate FiO2 Potassium Carbon Dioxide Anion Gap BUN Creatinine Est GFR ( Amer) Est GFR (Non-Af Amer) POC Glucose (mg/dL) 174 H 205 H Random Glucose Hemoglobin A1c Calcium Phosphorus Magnesium Total Bilirubin AST ALT Alkaline Phosphatase Total Protein Albumin Globulin Albumin/Globulin Ratio Triglycerides Cholesterol LDL Cholesterol Direct HDL Cholesterol Lipase Venous Blood Potassium Hep Bs Antigen Hep Bs Antibody Negative 03/17/18 03/17/18 03/17/18 14:45 16:25 17:01 WBC RBC Hgb Hct MCV MCH MCHC RDW Plt Count MPV Motley % (Auto) Eos % (Auto) Baso % (Auto) Motley # (Auto) Eos # (Auto) Baso # (Auto) Neutrophils % (Manual) Band Neutrophils % Lymphocytes % (Manual) Monocytes % (Manual) Myelocytes % Platelet Evaluation Hypochromasia pCO2 pO2 31 HCO3 ABG pH ABG Total CO2 ABG O2 Saturation ABG O2 Content ABG Base Excess ABG Hemoglobin ABG Carboxyhemoglobin POC ABG HHb (Measured) ABG Methemoglobin ABG O2 Capacity VBG pH 7.14 L* VBG pCO2 44.0 VBG HCO3 15.0 L VBG Total CO2 16.4 L VBG O2 Sat (Calc) 64.2 VBG Base Excess -13.6 L VBG Potassium 5.4 H Hgb O2 Saturation Sodium 130.0 L Chloride 98.0 Glucose 221 H Lactate 0.5 L FiO2 21.0 Potassium Carbon Dioxide Anion Gap BUN Creatinine Est GFR ( Amer) Est GFR (Non-Af Amer) POC Glucose (mg/dL) 229 H Random Glucose Hemoglobin A1c Calcium Phosphorus Magnesium Total Bilirubin AST ALT Alkaline Phosphatase Total Protein Albumin Globulin Albumin/Globulin Ratio Triglycerides Cholesterol LDL Cholesterol Direct HDL Cholesterol Lipase Venous Blood Potassium 5.4 H Hep Bs Antigen Negative Hep Bs Antibody 03/17/18 03/18/18 03/18/18 22:17 00:10 05:20 WBC 26.4 H* RBC 2.54 L Hgb 7.4 L Hct 21.3 L MCV 83.9 MCH 29.1 MCHC 34.7 RDW 16.6 H Plt Count 271 MPV 10.0 Motley % (Auto) 4.4 Eos % (Auto) 0.3 L Baso % (Auto) 0.1 Motley # (Auto) 1.2 H Eos # (Auto) 0.1 Baso # (Auto) 0.02 Neutrophils % (Manual) 83 H Band Neutrophils % 9 H Lymphocytes % (Manual) 2 L Monocytes % (Manual) 4 Myelocytes % 2 Platelet Evaluation Normal Hypochromasia 1+ pCO2 44 pO2 86.0 HCO3 20.7 L ABG pH 7.28 L ABG Total CO2 22.1 ABG O2 Saturation 96.0 ABG O2 Content 15.3 ABG Base Excess -5.9 L ABG Hemoglobin 11.4 L ABG Carboxyhemoglobin 1.0 POC ABG HHb (Measured) 3.9 ABG Methemoglobin 0.3 ABG O2 Capacity 15.9 L VBG pH VBG pCO2 VBG HCO3 VBG Total CO2 VBG O2 Sat (Calc) VBG Base Excess VBG Potassium Hgb O2 Saturation 94.8 L Sodium Chloride Glucose Lactate FiO2 36.0 Potassium Carbon Dioxide Anion Gap BUN Creatinine Est GFR ( Amer) Est GFR (Non-Af Amer) POC Glucose (mg/dL) 191 H Random Glucose Hemoglobin A1c Calcium Phosphorus Magnesium Total Bilirubin AST ALT Alkaline Phosphatase Total Protein Albumin Globulin Albumin/Globulin Ratio Triglycerides Cholesterol LDL Cholesterol Direct HDL Cholesterol Lipase Venous Blood Potassium Hep Bs Antigen Hep Bs Antibody 03/18/18 03/18/18 03/18/18 05:20 05:20 06:34 WBC RBC Hgb Hct MCV MCH MCHC RDW Plt Count MPV [place] % (Auto) Eos % (Auto) Baso % (Auto) [place]ley # (Auto) Eos # (Auto) Baso # (Auto) Neutrophils % (Manual) Band Neutrophils % Lymphocytes % (Manual) Monocytes % (Manual) Myelocytes % Platelet Evaluation Hypochromasia pCO2 41 pO2 96.0 HCO3 21.1 ABG pH 7.32 L ABG Total CO2 22.4 ABG O2 Saturation 97.5 ABG O2 Content 9.2 L ABG Base Excess -4.6 L ABG Hemoglobin 6.7 L ABG Carboxyhemoglobin 1.5 POC ABG HHb (Measured) 2.4 ABG Methemoglobin 1.0 ABG O2 Capacity 9.4 L VBG pH VBG pCO2 VBG HCO3 VBG Total CO2 VBG O2 Sat (Calc) VBG Base Excess VBG Potassium Hgb O2 Saturation 95.1 Sodium 134 Chloride 97 L Glucose Lactate FiO2 36.0 Potassium 4.2 Carbon Dioxide 25 Anion Gap 16 BUN 59 H Creatinine 4.5 H Est GFR ( Amer) 12 Est GFR (Non-Af Amer) 10 POC Glucose (mg/dL) Random Glucose 248 H Hemoglobin A1c 8.2 H Calcium 7.8 L Phosphorus 8.0 H Magnesium 1.7 Total Bilirubin 0.5 AST 194 H D ALT 60 H Alkaline Phosphatase 220 H Total Protein 5.5 L Albumin 2.5 L Globulin 3.0 Albumin/Globulin Ratio 0.8 L Triglycerides 858 H Cholesterol 181 LDL Cholesterol Direct < 30 HDL Cholesterol 18 L Lipase Venous Blood Potassium Hep Bs Antigen Hep Bs Antibody 03/18/18 03/18/18 10:00 12:26 WBC RBC Hgb Hct MCV MCH MCHC RDW Plt Count MPV [place] % (Auto) Eos % (Auto) Baso % (Auto) [place]ley # (Auto) Eos # (Auto) Baso # (Auto) Neutrophils % (Manual) Band Neutrophils % Lymphocytes % (Manual) Monocytes % (Manual) Myelocytes % Platelet Evaluation Hypochromasia pCO2 pO2 HCO3 ABG pH ABG Total CO2 ABG O2 Saturation ABG O2 Content ABG Base Excess ABG Hemoglobin ABG Carboxyhemoglobin POC ABG HHb (Measured) ABG Methemoglobin ABG O2 Capacity VBG pH VBG pCO2 VBG HCO3 VBG Total CO2 VBG O2 Sat (Calc) VBG Base Excess VBG Potassium Hgb O2 Saturation Sodium Chloride Glucose Lactate FiO2 Potassium Carbon Dioxide Anion Gap BUN Creatinine Est GFR ( Amer) Est GFR (Non-Af Amer) POC Glucose (mg/dL) 216 H Random Glucose Hemoglobin A1c Calcium Phosphorus Magnesium Total Bilirubin AST ALT Alkaline Phosphatase Total Protein Albumin Globulin Albumin/Globulin Ratio Triglycerides Cholesterol LDL Cholesterol Direct HDL Cholesterol Lipase 345 H Venous Blood Potassium Hep Bs Antigen Hep Bs Antibody Critical Care Progress Note - Nutrition Nutrition: Nutrition Category Date Time Status Renal Diet [DIET] Diets 03/18/18 Lunch Ordered Assessment/Plan - Assessment and Plan (Free Text) Plan: Patient seen and examined on rounds, with resident, agree with note with following additions/exceptions: Patient is 57yo female with PMH of COPD, obesity, HTN, CHF, DM, diabetic neuropathy, CKD, charcot foot and cellulitis of LE admitted to ICU for septic shock 2/2 cellulitis s/p I&D of left foot. Patient also developed worsening renal failure, with hyperkalemia, requiring emergent HD Currently aferbile, HD stable, comfortable in NAD, OFF levoped, BP stable COPD CHF DM ESRD on HD Cellulitis s/p InD Severe sepsis Recommend: - cont with supp o2 as needed, duonebs PRN, goal sat 90% - Abx as per ID, follow up ID - follow up cultures - goal MAP 65, monitor off vasopressor support, currently MAP 70-85 - HD as per renal - follow up MRI foot - follow up surgery - FS control - resume Lopid - check Lipase - GI ppx - DVT ppx - Monitor in MICU
--- NOTE | 2018-03-18 07:37 | OP ---
PROCEDURE DATE: 03/16/2018 INDICATIONS: A 57-year-old female who was last seen at the wound care center this past Sunday for a right second toe ulceration. She woke up on morning with red hot swollen contralateral left foot. The patient was told to go to the emergency room at which time she was noted to have a diabetic foot infection. The patient denied any trauma to the area. Denied having stepped on anything that she can recall- no recent history of minor trauma reported. The patient has a history of diabetic Charcot's arthropathy and is insensate. Upon admission, the patient's x-rays were negative for osteomyelitis; however within a 1-day period, her white blood cell count went from 17 to 23 in the absence of increased temperature gradient and any clinical signs of obvious acute abscess formation. The patient was seen by myself yesterday, and there was noted to be a blister formation on the plantar aspect of her foot. There was no tabby flocculence or any signs of underlying abscess formation. However this morning during rounds her foot appeared markedly worse with her white count rising to 23- indicating underlying deep abscess formation in the foot. Unfortunately, the patient had eaten breakfast, so we had to wait eight hours to undergo any surgical intervention. MRI was taken which reveals pockets of purulence located throughout her foot. New x-rays were taken, which revealed no evidence of gas gangrene whicch was suspected today given her rapidly worsening appearance of the foot. The patient was not able to undergo general anesthesia due to high potassium count. The patient's potassium count was high and was given Kayexalate, and her H and H were low and was given 1 unit of blood. It was decided that the risks outweigh the benefits at this point as her entire forefoot was becoming ischemic from compartment leg syndrome due to the amount of purulence that was present, and we decided to perform the surgery with peroneal and ankle block with minimal IV sedation. The patient was told of the risks and complications in order to prevent ensuing ischemia. We all agreed upon surgical intervention immediately- her family could not be reached for input. The patient was given no guarantees as to the outcome from the surgery, but agreed that the surgery had to be performed in order to bring down her white count and avoid impending ischemia. DESCRIPTION OF PROCEDURE: The patient was brought into the operating room on her hospital bed and transferred to the operating room table in supine position. Before we scrubbed, prepped, and draped in the usual aseptic manner, a light sedation was given and a local block at the peroneal nerve consisted of 10 mL of 1:1 ratio of 2% lidocaine plain and 0.5% Marcaine plain and 20 mL of 2% lidocaine plain and 0.5% Marcaine plain was given, which produced profound anesthesia to the left lower extremity. Upon inspection of the foot, there was noted to be a large flocculence with clinical signs of underlying abscess formation from the base of her fifth toe that extended proximally and medially to her medial calcaneal tubercle. An incision was made overlying this area where there was noted to be a gangrenous plaque that had developed over the ensuing 24 hours. The gangrenous plaque was incised using a 15-blade scalpel, and immediately there was noted to be copious amounts of purulence emanating from this area. Utilizing blunt scissors, the incision site was opened and once again purulence flow clearly from the plantar incision site. There was noted to active bleeding at this time as well. All tissue planes in the medial, lateral, proximal, and distal areas of the incision were opened, and the foot was manually expressed and squeezed to express any purulence until it was found to be none. Attention was then directed to the lateral aspect of the foot where a gangrenous plaque had developed over the styloid process, and the gangrenous plaque was excised using a fresh 15-blade. At this time, there was noted to be purulence emanating from the incision at this area. Attention was then directed to the first interspace where there was noted to be resolved blister formations, and the area was found to be flocculent. Once again, approximate 6-cm incision was made at the first interspace and upon incision, there was noted to be purulent discharge. The area was gently probed and opened with a blunt scissor in all tissue points at which time there was noted to also have active healthy bleeding. Attention was directed to the third, fourth and fifth digits where there was noted to be impending ischemia from venous congestion and underlying flocculence and purulence was clearly evident at this site as well. An approximate 5-cm incision was made over the third digit into the fourth interspace, and the area was opened up with blunt Banda scissors, at which time there was noted to be purulent discharge. The foot was then manually expressed, and there was found to be no purulence. At this time, pulse lavage consisting of gentamicin infused sterile solution was used to flush all the areas. Using a blunt Banda scissor, once again all of the areas were probed and gently opened, and there was found to be no more purulence upon manual compression. The remaining 3000 mL of gentamicin infused saline solution was then used to irrigate all of the wounds. A deep tissue sample was taken from the dorsal incisions and labeled dorsal wounds, and a new culture was taken of the plantar incision and labeled plantar wounds. All the wounds were then gently packed with non-iodoform plain sterile packing. The foot was then dressed with sterile 4x4 gauze, sterile abdominal pad, and a dry sterile dressing. The patient tolerated the procedure well and was transferred from the operating room to the recovery room with all vital signs stable. Given the patient's many existing systemic conditions, it was determined preoperatively that she should be transferred to ICU given her H and H, her creatinine levels and her potassium levels at this time. She will be transferred to the ICU where she will remain for 24 hours for observation. The patient will be seen in the morning, and all preop medications will be given tonight. The patient is to not bear weight until further notice and can resume renal diet. Rodríguez Little DPM VY
[2018-03-18] MEDS: Albuterol-Ipratrop 3 mg / 0.5 (3 ml) UD IH SCH ×3 (07:44→19:58)
[2018-03-18] MEDS: Insulin Lispro (humaLOG) MEDIUM Coverage SC SCH ×4 (07:57→22:57)
[2018-03-18] MEDS: Pantoprazole 20 mg EC Tab PO SCH (08:12)
--- NOTE | 2018-03-18 08:21 | CARD ---
APPROVED REPORT Date of service: 03/17/2018 EKG Measurement Heart [id number] <Conclusion> Sinus tachycardia with 1st degree AV block Low voltage QRS Nonspecific intraventricular conduction delay No change
[2018-03-18] MEDS: Oxychlorosene Topical 2 gm Packet TOP SCH (09:46)
[2018-03-18] MEDS: MEROPENEM 500 MG in NS 500 MG/50 ML BAG IVPB SCH ×2 (09:46→22:54)
[2018-03-18] MEDS: Oxymetazoline 0.05% Nasal Spray (30 ml) NS SCH ×3 (09:51→17:15)
--- NOTE | 2018-03-18 10:13 | CP.PCM.PN ---
<Larry Thomas - Last Filed: 03/18/18 12:36> Subjective - Date & Time of Evaluation Date of Evaluation: 03/18/18 Time of Evaluation: 10:08 - Subjective Subjective: Infectious disease progress note for Dr. Peacock/Dr. Kent service - Edilberto Thomas PGY3 Patient seen and examined at bedside this morning. No acute overnight events or new complaints were reported. Pressors being weaned. Otherwise, denies chest pain, palpitations, SOB. Presently on daptomycin and meropenem. Objective - Vital Signs/Intake and Output Vital Signs (last 24 hours): Temp Pulse Resp BP Pulse Ox 98.7 F 99 H 18 137/85 100 03/18/18 00:00 03/18/18 06:00 03/18/18 00:00 03/18/18 00:00 03/18/18 00:00 Intake and Output: 03/18/18 03/18/18 06:59 18:59 Intake Total 1509 65 Output Total 275 Balance 1234 65 - Medications Medications: Current Medications Acetaminophen (Tylenol 325mg Tab) 650 mg PO Q6H PRN PRN Reason: Pain, moderate (4-7) Last Admin: 03/15/18 18:14 Dose: 650 mg Albuterol/Ipratropium (Duoneb 3 Mg/0.5 Mg (3 Ml) Ud) 3 ml IH Q6H [facility] Last Admin: 03/18/18 07:44 Dose: 3 ml Allopurinol (Zyloprim) 100 mg PO DAILY [facility] Last Admin: 03/17/18 10:32 Dose: 100 mg Atorvastatin Calcium (Lipitor) 20 mg PO DAILY [facility] Last Admin: 03/18/18 09:50 Dose: 20 mg Clopidogrel Bisulfate (Plavix) 75 mg PO DAILY [facility] Last Admin: 03/15/18 10:20 Dose: 75 mg Meropenem/Sodium Chloride (Merrem Iv 500 Mg/Ns 50 Ml) 500 mg in 50 mls @ 100 mls/hr IVPB Q12 [facility]; Protocol Stop: 03/23/18 22:01 Last Admin: 03/18/18 09:46 Dose: 100 mls/hr Daptomycin 470 mg/ Sodium (Chloride) 100 mls @ 200 mls/hr IV Q48H [facility]AMADOU Stop: 03/23/18 21:01 Last Admin: 03/16/18 21:11 Dose: 200 mls/hr NOREPINEPHRINE BIT/0.9 % NACL (Levophed 4 Mg/ 250 Ml Ns Premixed) 4 mg in 250 mls @ 15 mls/hr IV .[id number] PRN; Protocol PRN Reason: TITRATE PER MD ORDER Last Titration: 03/18/18 09:51 Dose: 2 mcg/min, 7.5 mls/hr Insulin Detemir (Levemir) 20 unit SC [facility] Insulin Human Lispro (Humalog Med) 0 units SC ACHS [facility] Last Admin: 03/18/18 07:57 Dose: Not Given Montelukast Sodium (Singulair) 10 mg PO [facility] Last Admin: 03/17/18 21:58 Dose: 10 mg Home Med - Fluvoxamine [Luvox] 25 Mg 25 mg PO BID [facility] Last Admin: 03/17/18 17:03 Dose: Not Given Home Med - Umeclidinium [place] [Incruse Ellipta] 1 Puff 1 puff IH [facility] Last Admin: 03/17/18 22:19 Dose: Not Given Nortriptyline HCl (Pamelor) 50 mg PO [facility] Last Admin: 03/17/18 21:57 Dose: 50 mg Oxychlorosene Sodium (Clorpactin Wcs-90) 2 gm TOP Q12 [facility] Last Admin: 03/18/18 09:46 Dose: 2 gm Oxycodone/Acetaminophen (Percocet 5/325 Mg Tab) 1 tab PO Q6H PRN PRN Reason: pain Stop: 03/18/18 21:56 Last Admin: 03/17/18 23:42 Dose: 1 tab Oxymetazoline HCl (Afrin 0.05%) 0 ml NS TID [facility] Last Admin: 03/18/18 09:51 Dose: 2 spray Pantoprazole Sodium (Protonix Ec Tab) 20 mg PO ACB [facility] Last Admin: 03/18/18 08:12 Dose: 20 mg Quetiapine Fumarate (Seroquel Xr) 100 mg PO [facility]; Protocol Last Admin: 03/17/18 21:56 Dose: 100 mg Silver Sulfadiazine (Silvadene 1% 25 Gm) 1 gm TP BID [facility] Last Admin: 03/17/18 17:04 Dose: Not Given Tizanidine HCl (Zanaflex) 2 mg PO Q6 [facility] Last Admin: 03/18/18 06:24 Dose: 2 mg - Labs Labs: 03/18/18 05:20 03/18/18 05:20 PT 19.4 SECONDS (9.4-12.5) H 03/14/18 17:00 INR 1.68 03/14/18 17:00 APTT 37.4 Seconds (25.1-36.5) H 03/14/18 17:00 - Constitutional Appears: No Acute Distress - Head Exam Head Exam: ATRAUMATIC, NORMAL INSPECTION, NORMOCEPHALIC - Eye Exam Eye Exam: EOMI, PERRL - ENT Exam ENT Exam: Mucous Membranes Moist - Neck Exam Neck Exam: Normal Inspection - Respiratory Exam Respiratory Exam: absent: Rales, Rhonchi, Wheezes - Cardiovascular Exam Cardiovascular Exam: +S1, +S2. absent: Clicks, Gallop, Rubs - GI/Abdominal Exam GI & Abdominal Exam: Soft. absent: Distended, Firm, Guarding, Rigid, Tenderness, Rebound - Neurological Exam Neurological Exam: Alert, Awake, Oriented x3 - Psychiatric Exam Psychiatric exam: Normal Affect, Normal Mood - Skin Skin Exam: Dry, Intact, Normal Color, Warm Assessment and Plan - Assessment and Plan (Free Text) Plan: 57yo female with history of COPD, obesity, fibromyalgia, recurrent UTI, restless leg syndrome, HTN, chronic CHF, DM, diabetic neuropathy, CKD, endometriosis, charcot foot and cellulitis of LE admitted for septic shock secondary to staph aureus bacteremia and staph aureus foot abscess s/p I&D in the setting of acute kidney injury. 1. Septic shock secondary to staph aureus bacteremia 2. Staph aureus left foot abscess s/p I&D 3. JAMIL on CKD 4. COPD, chronic 5. CHF, chronic 6. Normocytic anemia 7. Hx of hypertension 8. Diabetes mellitus type 2 9. Diabetic neuropathy -Given results of culture/sensitivity, we will discontinue the daptomycin and continue meropenem at the present time -Repeat blood cultures have been ordered -Presently pending official read on foot MRI -Pressor requirement being weaned by ICU team -Echocardiogram revealed no apparent thrombus; LVEF 59%; see full report -Continue current management as per ICU team Patient seen and case discussed/reviewed with attending, Dr. Peacock <Jan Peacock S - Last Filed: 03/18/18 13:15> Objective - Vital Signs/Intake and Output Vital Signs (last 24 hours): Temp Pulse Resp BP Pulse Ox 98.2 F 97 H 24 129/64 96 03/18/18 10:00 03/18/18 10:45 03/18/18 10:00 03/18/18 10:45 03/18/18 10:45 Intake and Output: 03/18/18 03/18/18 06:59 18:59 Intake Total 1509 65 Output Total 275 Balance 1234 65 - Medications Medications: Current Medications Acetaminophen (Tylenol 325mg Tab) 650 mg PO Q6H PRN PRN Reason: Pain, moderate (4-7) Last Admin: 03/15/18 18:14 Dose: 650 mg Albuterol/Ipratropium (Duoneb 3 Mg/0.5 Mg (3 Ml) Ud) 3 ml IH Q6H [facility] Last Admin: 03/18/18 07:44 Dose: 3 ml Allopurinol (Zyloprim) 100 mg PO DAILY [facility] Last Admin: 03/17/18 10:32 Dose: 100 mg Atorvastatin Calcium (Lipitor) 20 mg PO DAILY [facility] Last Admin: 03/18/18 09:50 Dose: 20 mg Clopidogrel Bisulfate (Plavix) 75 mg PO DAILY [facility] Last Admin: 03/15/18 10:20 Dose: 75 mg Meropenem/Sodium Chloride (Merrem Iv 500 Mg/Ns 50 Ml) 500 mg in 50 mls @ 100 mls/hr IVPB Q12 [facility]; Protocol Stop: 03/23/18 22:01 Last Admin: 03/18/18 09:46 Dose: 100 mls/hr NOREPINEPHRINE BIT/0.9 % NACL (Levophed 4 Mg/ 250 Ml Ns Premixed) 4 mg in 250 mls @ 15 mls/hr IV .[id number] PRN; Protocol PRN Reason: TITRATE PER MD ORDER Last Titration: 03/18/18 09:51 Dose: 2 mcg/min, 7.5 mls/hr Insulin Detemir (Levemir) 20 unit SC [facility] Insulin Human Lispro (Humalog Med) 0 units SC ACHS [facility] Last Admin: 03/18/18 12:28 Dose: Not Given Montelukast Sodium (Singulair) 10 mg PO [facility] Last Admin: 03/17/18 21:58 Dose: 10 mg Home Med - Fluvoxamine [Luvox] 25 Mg 25 mg PO BID [facility] Last Admin: 03/17/18 17:03 Dose: Not Given Home Med - Umeclidinium [place] [Incruse Ellipta] 1 Puff 1 puff IH [facility] Last Admin: 03/17/18 22:19 Dose: Not Given Nortriptyline HCl (Pamelor) 50 mg PO [facility] Last Admin: 03/17/18 21:57 Dose: 50 mg Oxychlorosene Sodium (Clorpactin Wcs-90) 2 gm TOP Q12 [facility] Last Admin: 03/18/18 09:46 Dose: 2 gm Oxycodone/Acetaminophen (Percocet 5/325 Mg Tab) 1 tab PO Q6H PRN PRN Reason: pain Stop: 03/18/18 21:56 Last Admin: 03/17/18 23:42 Dose: 1 tab Oxymetazoline HCl (Afrin 0.05%) 0 ml NS TID [facility] Last Admin: 03/18/18 09:51 Dose: 2 spray Pantoprazole Sodium (Protonix Ec Tab) 20 mg PO ACB [facility] Last Admin: 03/18/18 08:12 Dose: 20 mg Quetiapine Fumarate (Seroquel Xr) 100 mg PO [facility]; Protocol Last Admin: 03/17/18 21:56 Dose: 100 mg Silver Sulfadiazine (Silvadene 1% 25 Gm) 1 gm TP BID [facility] Last Admin: 03/17/18 17:04 Dose: Not Given Tizanidine HCl (Zanaflex) 2 mg PO Q6 [facility] Last Admin: 03/18/18 06:24 Dose: 2 mg - Labs Labs: 03/18/18 05:20 03/18/18 05:20 PT 19.4 SECONDS (9.4-12.5) H 03/14/18 17:00 INR 1.68 03/14/18 17:00 APTT 37.4 Seconds (25.1-36.5) H 03/14/18 17:00 Assessment and Plan - Assessment and Plan (Free Text) Plan: Infectious diseases Attending Physician Attestation Patient seen and examined, discussed with nurses medical assistants phlebotomists. I have reviewed the patient's history of present illness, past medical, social, personal and family histories, pertinent physical exam findings, course so far in this hospital admission, pertinent laboratory and imaging results. I agree with the above findings, assessment and plan. In addition, will continue Merrem for this patient with septic shock from MSSA bacteremia from severe left foot skin and skin structure infection. Patient will need MRI of left foot and possibly further debridement - may have other bacteria in the foot - will keep Merrem to cover MSSA and possibly other bacteria. Follow up repeat blood cx and 2D echo. Patient is slowly improving clinically.
[2018-03-18] MEDS: FLUVOXAMINE 25 MG PO SCH (13:25)
--- NOTE | 2018-03-18 13:55 | MRI ---
Date of service: 03/16/2018 PROCEDURE: HISTORY: Abscess, R/O OM COMPARISON: TECHNIQUE: FINDINGS: Extensive diffuse soft tissue edema compatible with cellulitis. 7.0 x 2.5 x 2.3 centimeter fluid collection along the volar aspect of the 1st 2nd metatarsal shaft possibly representing an abscess. Associated mild thickening and edema in the plantar fascia concerning for plantar fasciitis. Diffuse edema in the musculature. Moderately severe osteoarthritis of the tarsal metatarsal joints as well as the navicular cuneiform joint. No evidence of acute fracture. No evidence of osteomyelitis. IMPRESSION: 7.0 x 2.5 x 2.3 centimeter fluid collection along the volar aspect of the 1st 2nd metatarsal shaft possibly representing an abscess. No evidence of osteomyelitis. Severe cellulitis and plantar musculature edema.
[2018-03-18] MEDS: Silver Sulfadiazine 1% Cream (25 gm) TP SCH (17:14)
--- NOTE | 2018-03-18 19:02 | PN ---
DATE: 03/18/2018 REASON FOR CONSULTATION: Cardiac evaluation, preop evaluation, septic shock, diabetic neuropathy, incision and drainage of left foot abscess, history of coronary artery disease. SUBJECTIVE: The patient denies any chest pain, shortness of breath, any palpations. The patient not in apparent distress. PHYSICAL EXAMINATION: VITAL SIGNS: Temperature afebrile, heart rate 97, blood pressure 109/64 on Levophed. HEENT: PERRLA, intact. NECK: Supple. No carotid bruit or thyromegaly. CHEST: Clear to auscultation. HEART: S1, S2, regular. ABDOMEN: Soft. EXTREMITIES: Clubbing and cyanosis negative. LABORATORY DATA: WBC 26.4, hemoglobin 7.4, hematocrit 21.3, platelet count 271. Chemistry shows sodium 134, potassium 4.2, chloride 97, carbon dioxide 25, anion gap 16, BUN 59, creatinine 4.5. IMPRESSION: A 57-year-old female with past medical history significant for diabetes, nephropathy, neuropathy, Charcot feet, diabetes mellitus, history of coronary artery disease, status post stent in the past, history of DVT, pulmonary embolism, presented with left foot abscess, status post incision and drainage, septic shock, WBC elevated, on Levophed. Acute kidney injury on chronic renal insufficiency, diabetes, hypertension, hyperlipidemia, history of coronary artery disease, history of a stent on 03/03/2013, diabetic retinopathy, diabetic nephropathy, septic shock. RECOMMENDATIONS: Continue broad spectrum antibiotic, continue Levophed, continue euvolemic state, continue atorvastatin. He had dialysis yesterday because the patient had a creatinine went up to 7.1 and now is 4.1, monitor H and H, if it goes below 8, consider packed RBC transfusion. Overall, the patient's condition is critical. Long-term prognosis is guarded. We will follow with you. History of wound culture positive as well as blood culture, Staph aureus, probably the source of infection is the wound. The patient has the last echo on 03/16/2018 day before yesterday that revealed normal history of ventricular wall motion, [id number] mitral regurgitation, mild tricuspid regurgitation. Thank you Dr. Zhu for providing us the opportunity in taking care of the patient, Mallory Ashley. Stephanie Anton MD
--- NOTE | 2018-03-18 19:16 | PN ---
DATE: 03/18/2018 SUBJECTIVE: The patient is seen in the ICU. She is groggy, but arousable. She is somewhat confused. She is unable to recollect train of events, but she does recognize me. She appears to be volume overloaded. PHYSICAL EXAMINATION: GENERAL: Middle-aged lady lying in bed in the ICU. VITAL SIGNS: Blood pressure 129/64, heart rate 97, respiratory rate 20, temperature 98.2. HEENT: Normocephalic, atraumatic, positive pallor. NECK: Supple, no JVD. LUNGS: Bilateral equal entry, bilateral equal expansion, no rales appreciated anteriorly. Cardiac: S1, S2, regular rate and rhythm, no murmur, no rub. ABDOMEN: Obese, distended, soft, nontender, bowel sounds present. EXTREMITIES: 1+ pitting edema of the lower extremities, dressing of the left foot. INTAKE AND OUTPUT: 4533/[id number]. LABORATORY DATA: WBC 26, hemoglobin 7.4, hematocrit 21, platelets 271. Sodium 134, potassium 4.2, chloride 97, CO2 of 25, BUN 59, creatinine 4.5, glucose 248. Calcium 7.8, phosphorus 8, magnesium 1.7. AST 194, ALT 60, A1c 8.2, albumin 2.5, triglycerides 858, lipase 345. Blood culture, no growth. Wound culture, Staph aureus. Blood culture from 03/14/2018, Staph aureus. Chest x-ray: Moderate pulmonary vascular congestion, cardiomegaly. CURRENT MEDICATIONS: Ritalin, promethazine, DuoNeb, Luvox, insulin, Lipitor, meropenem 500 every 12 hours, Pamelor, Plavix, Protonix, Seroquel, Silvadene, daptomycin 470 every 48 hours, ProAmatine 10 t.i.d., D5W with 100 mEq of sodium bicarbonate at 75 which was discontinued. ASSESSMENT: 1. Severe sepsis, left foot abscess, staphylococcus bacteremia, septic shock. 2. Acute oligoanuric acute kidney injury superimposed on chronic kidney disease stage 3. 3. Hyperkalemia secondary to acute kidney injury. 4. Brittle diabetes with diabetic neuropathy, nephropathy, vasculopathy. 5. Severe anemia. 6. Cardiomyopathy, decreased ejection fraction. 7. Chronic obstructive pulmonary disease. 8. Charcot's foot. PLAN: 1. The patient still remains with oliguria. The patient was dialyzed yesterday. 2. We will dialyze her again today for 2 hours since the patient is still confused. 3. Agree with discontinuation of IV fluids with sodium bicarbonate. 4. Continue antibiotics for staph bacteremia and wound infection. 5. Continue wound care as per Podiatry/Surgery. 6. Continue to monitor in the ICU. 7. We will assess again for dialysis tomorrow. 8. Continue tight glycemic control. 9. Dose all antibiotics for creatinine clearance 10-30 mL/minute. 10. Hopefully will not require chronic dialysis. 11. Case discussed with ICU nursing staff. 12. Case discussed with Dr. Zhu. More than 35 minutes spent in the care of this critically ill patient. Elva Frank MD
--- NOTE | 2018-03-18 21:31 | CP.PCM.PN ---
<Kayla Avalosmisti - Last Filed: 03/19/18 16:15> Subjective - Date & Time of Evaluation Date of Evaluation: 03/18/18 Time of Evaluation: 08:00 - Subjective Subjective: Podiatry progress note for Dr. Bills, 57 y/o female patient was seen and evaluated in the ICU s/p 2 days complex incision and drainage of all compartments of the left foot, secondary to severe diabetic foot abscess. Patient was awake, able to answer questions and oriented when evaluated at bedside. Patient's dressing had moderate amounts of sanguinous strike-through. Objective - Vital Signs/Intake and Output Vital Signs (last 24 hours): Temp Pulse Resp BP Pulse Ox 98.2 F 95 H 24 117/61 100 03/18/18 10:00 03/18/18 17:30 03/18/18 10:00 03/18/18 17:30 03/18/18 17:30 Intake and Output: 03/18/18 03/19/18 18:59 06:59 Intake Total 475 Output Total 1380 Balance -905 - Medications Medications: Current Medications Acetaminophen (Tylenol 325mg Tab) 650 mg PO Q6H PRN PRN Reason: Pain, moderate (4-7) Last Admin: 03/15/18 18:14 Dose: 650 mg Albuterol/Ipratropium (Duoneb 3 Mg/0.5 Mg (3 Ml) Ud) 3 ml IH Q6H [facility] Last Admin: 03/18/18 19:58 Dose: 3 ml Allopurinol (Zyloprim) 100 mg PO DAILY [facility] Last Admin: 03/18/18 19:37 Dose: 100 mg Atorvastatin Calcium (Lipitor) 20 mg PO DAILY [facility] Last Admin: 03/18/18 09:50 Dose: 20 mg Clopidogrel Bisulfate (Plavix) 75 mg PO DAILY [facility] Last Admin: 03/15/18 10:20 Dose: 75 mg Meropenem/Sodium Chloride (Merrem Iv 500 Mg/Ns 50 Ml) 500 mg in 50 mls @ 100 mls/hr IVPB Q12 [facility]; Protocol Stop: 03/23/18 22:01 Last Admin: 03/18/18 09:46 Dose: 100 mls/hr NOREPINEPHRINE BIT/0.9 % NACL (Levophed 4 Mg/ 250 Ml Ns Premixed) 4 mg in 250 mls @ 15 mls/hr IV .[id number] PRN; Protocol PRN Reason: TITRATE PER MD ORDER Last Titration: 03/18/18 10:00 Dose: 0 mcg/min, 0 mls/hr Insulin Detemir (Levemir) 20 unit SC [facility] Insulin Human Lispro (Humalog Med) 0 units SC ACHS [facility] Last Admin: 03/18/18 17:13 Dose: Not Given Montelukast Sodium (Singulair) 10 mg PO [facility] Last Admin: 03/17/18 21:58 Dose: 10 mg Home Med - Fluvoxamine [Luvox] 25 Mg 25 mg PO BID [facility] Last Admin: 03/18/18 13:25 Dose: Not Given Home Med - Umeclidinium [place] [Incruse Ellipta] 1 Puff 1 puff IH [facility] Last Admin: 03/17/18 22:19 Dose: Not Given Nortriptyline HCl (Pamelor) 50 mg PO [facility] Last Admin: 03/17/18 21:57 Dose: 50 mg Oxychlorosene Sodium (Clorpactin Wcs-90) 2 gm TOP Q12 [facility] Last Admin: 03/18/18 09:46 Dose: 2 gm Oxycodone/Acetaminophen (Percocet 5/325 Mg Tab) 1 tab PO Q6H PRN PRN Reason: pain Stop: 03/18/18 21:56 Last Admin: 03/17/18 23:42 Dose: 1 tab Oxymetazoline HCl (Afrin 0.05%) 0 ml NS TID [facility] Last Admin: 03/18/18 17:15 Dose: 2 spray Pantoprazole Sodium (Protonix Ec Tab) 20 mg PO ACB [facility] Last Admin: 03/18/18 08:12 Dose: 20 mg Quetiapine Fumarate (Seroquel Xr) 100 mg PO [facility]; Protocol Last Admin: 03/17/18 21:56 Dose: 100 mg Silver Sulfadiazine (Silvadene 1% 25 Gm) 1 gm TP BID [facility] Last Admin: 03/18/18 17:14 Dose: Not Given Tizanidine HCl (Zanaflex) 2 mg PO Q6 [facility] Last Admin: 03/18/18 19:37 Dose: 2 mg - Labs Labs: 03/18/18 05:20 03/18/18 05:20 PT 19.4 SECONDS (9.4-12.5) H 03/14/18 17:00 INR 1.68 03/14/18 17:00 APTT 37.4 Seconds (25.1-36.5) H 03/14/18 17:00 - Constitutional Appears: No Acute Distress - Extremities Exam Additional comments: Bilateral Lower Extremity Exam VASC: palpable pedal pulses, TG warm to warm bilaterally, edema noted to all the digits with torres-mottled skin DERM: surgical incision sites to the left foot dorsally, laterally and plantarly are full thickness with granular tissue present, no active bleeding noted, no purulent drainage noted, no malodor, macerated torres mottled skin noted to all the digits to the levels of the MPJs Right foot, stable ulceration noted to the tip of the 2nd digit - Neurological Exam Neurological Exam: Awake - Psychiatric Exam Psychiatric exam: Normal Mood Assessment and Plan - Assessment and Plan (Free Text) Assessment: 57 y/o female patient 2 days status post incision and drainage of the left foot secondary to diabetic foot abscess, causing compartment-like clinical symptoms Plan: Patient seen and evaluated at bedside with Dr. Bills Plan discussed with attending Chart, labs and vitals were reviewed- afebrile, positive leukocytosis trending down to 26.4 Patient dressings were changed with sterile instruments Wound was flushed with Clorpactin sterile saline solution All wounds were packed with 0.25 inch packing, non-iodoform Wounds were then dressed with gauze, ABD and Kerlix No compression has been applied at this time Podiatry will carefully continue to monitor the patient <Guillermina Bills - Last Filed: 03/21/18 07:53> Objective - Vital Signs/Intake and Output Vital Signs (last 24 hours): Temp Pulse Resp BP Pulse Ox 98.8 F 86 19 135/75 93 L 03/20/18 17:37 03/21/18 05:40 03/20/18 17:37 03/20/18 18:13 03/20/18 17:37 - Medications Medications: Current Medications Acetaminophen (Tylenol 325mg Tab) 650 mg PO Q6H PRN PRN Reason: Pain, moderate (4-7) Last Admin: 03/21/18 03:06 Dose: 650 mg Albuterol/Ipratropium (Duoneb 3 Mg/0.5 Mg (3 Ml) Ud) 3 ml IH Q6H [facility] Last Admin: 03/21/18 07:27 Dose: 3 ml Allopurinol (Zyloprim) 100 mg PO DAILY [facility] Last Admin: 03/20/18 10:51 Dose: 100 mg Atorvastatin Calcium (Lipitor) 20 mg PO DAILY [facility] Last Admin: 03/18/18 09:50 Dose: 20 mg Calcium Acetate (Phoslo) 667 mg PO WM [facility] Last Admin: 03/20/18 18:13 Dose: 667 mg Clopidogrel Bisulfate (Plavix) 75 mg PO DAILY [facility] Last Admin: 03/20/18 10:51 Dose: 75 mg Meropenem/Sodium Chloride (Merrem Iv 500 Mg/Ns 50 Ml) 500 mg in 50 mls @ 100 mls/hr IVPB Q12 [facility]; Protocol Stop: 03/23/18 22:01 Last Admin: 03/20/18 22:34 Dose: 100 mls/hr Insulin Detemir (Levemir) 20 unit SC [facility] Last Admin: 03/20/18 22:33 Dose: 20 unit Insulin Human Lispro (Humalog Med) 0 units SC ACHS [facility] Last Admin: 03/20/18 22:04 Dose: Not Given Metoprolol Tartrate (Lopressor) 25 mg PO BID [facility] Last Admin: 03/20/18 18:13 Dose: 25 mg Montelukast Sodium (Singulair) 10 mg PO [facility] Last Admin: 03/20/18 22:33 Dose: 10 mg Home Med - Fluvoxamine [Luvox] 25 Mg 25 mg PO BID [facility] Last Admin: 03/20/18 18:12 Dose: Not Given Home Med - Umeclidinium [place] [Incruse Ellipta] 1 Puff 1 puff IH [facility] Last Admin: 03/18/18 22:57 Dose: Not Given Nortriptyline HCl (Pamelor) 50 mg PO [facility] Last Admin: 03/20/18 22:33 Dose: 50 mg Oxychlorosene Sodium (Clorpactin Wcs-90) 2 gm TOP Q12 [facility] Last Admin: 03/20/18 22:34 Dose: 2 gm Oxymetazoline HCl (Afrin 0.05%) 0 ml NS TID [facility] Last Admin: 03/20/18 18:14 Dose: 2 spray Pantoprazole Sodium (Protonix Ec Tab) 20 mg PO ACB [facility] Last Admin: 03/20/18 10:56 Dose: 20 mg Quetiapine Fumarate (Seroquel Xr) 100 mg PO HS [facility]; Protocol Last Admin: 03/20/18 22:32 Dose: 100 mg Silver Sulfadiazine (Silvadene 1% 25 Gm) 1 gm TP BID [facility] Last Admin: 03/20/18 10:54 Dose: 1 gm Tizanidine HCl (Zanaflex) 2 mg PO Q6 [facility] Last Admin: 03/21/18 05:06 Dose: 2 mg - Labs Labs: 03/21/18 06:30 03/21/18 06:30 PT 25.0 SECONDS (9.4-12.5) H 03/21/18 00:23 INR 2.16 03/21/18 00:23 APTT 35.8 Seconds (25.1-36.5) 03/21/18 00:23 Attending/Attestation - Attestation I have personally seen and examined this patient.: Yes I have fully participated in the care of the patient.: Yes I have reviewed all pertinent clinical information, including history, physical exam and plan: Yes
[2018-03-18] MEDS: QUEtiapine 50 mg XR Tab PO SCH (22:55)
[2018-03-18] MEDS: Insulin Detemir 100 units/ml Vial (Levemir) SC SCH (22:56)
[2018-03-18] MEDS: UMECLIDINIUM BROMIDE IH SCH (22:57)
--- NOTE | 2018-03-18 23:49 | PN ---
DATE: 03/18/2018 SUBJECTIVE: The patient is 57-year-old, yesterday's event noticed. The patient had septic shock, was on pressors and got emergent dialysis, seems to be doing well, but is still lethargic. PHYSICAL EXAMINATION: VITAL SIGNS: She is afebrile, pulse 95, respirations 18, blood pressure 117/61. LUNGS: Bilateral fair airflow. No rhonchi or crackle. HEART: S1, S2 audible. ABDOMEN: Soft, obese, nontender. No rebound, no guarding. NEUROLOGIC: The patient is lethargic, but answers appropriately. EXTREMITIES: Bilateral legs, +1 edema. LABORATORY DATA: WBC 26.4, hemoglobin 7.4, hematocrit 21.3, platelets 271. Chemistry, sodium 134, potassium 4.2, chloride 97, CO2 of 25, BUN 59, creatinine 4.5, blood sugar of 145, magnesium 1.7. Her blood cultures shows staphylococcus aureus, and so is the foot. Repeat cultures are negative. ASSESSMENT: 1. Staphylococcus aureus bacteremia, Staphylococcus aureus wound infection. 2. Septic shock. 3. Hypotension. 4. Acute on chronic renal insufficiency. 5. Anemia. 6. Insulin-dependent diabetes. 7. Hyperlipidemia. PLAN: So, plan is currently the patient is on meropenem, analgesic as needed. Possible dialysis in a.m. Follow up blood culture. Follow up CBC in a.m. May need blood transfusion during dialysis. Colt Zhu MD
[2018-03-19] MEDS: Albuterol-Ipratrop 3 mg / 0.5 (3 ml) UD IH SCH ×3 (02:40→19:57)
[2018-03-19 05:59] LABS: ARTERIAL BLOOD GAS HCO3 21.7 mmol/L (21-28); ARTERIAL BLOOD GAS HEMOGLOBIN 8.3 g/dL (11.7-17.4); ARTERIAL BLOOD GAS O2 CAPACITY 11.5 mL/dl (16-24); ARTERIAL BLOOD GAS O2 CONTENT 11.1 ML/dl (15-23); ARTERIAL BLOOD GAS O2 SAT 96.2 % (95-98); ARTERIAL BLOOD GAS PCO2 43 mm/Hg (35-45); ARTERIAL BLOOD GAS PH 7.31 (7.35-7.45)
[2018-03-19 06:01] LABS: BASO # 0.03 K/mm3 (0.0-2.0); BASO % 0.1 % (0.0-3.0); EOS # 0.2 (0.0-0.7); EOS % 0.9 % (1.5-5.0); GRAN # 20.92 (1.4-6.5); GRAN % 86.4 % (50.0-68.0); LYMPH # 1.4 (1.2-3.4); LYMPH % 5.8 % (22.0-35.0); MEAN CORPUSCULAR HGB CONC 33.3 g/dl (31.0-37.0); MEAN PLATELET VOLUME 9.4 fl (7.0-11.0); MONO # 1.6 (0.1-0.6); MONO % 6.8 % (1.0-6.0); RBC 2.5 10^6/uL (3.5-6.1); WHITE BLOOD COUNT 24.2 10^3/uL (4.5-11.0)
[2018-03-19 06:27] LABS: ALB/GLOB RATIO 0.8 (1.1-1.8); ALBUMIN 2.6 g/dL (3.0-4.8); CALCIUM 8.4 mg/dL (8.4-10.5)
--- NOTE | 2018-03-19 06:57 | CP.CCUPN ---
<Sebastian Petersen - Last Filed: 03/19/18 13:48> CCU Subjective - Physician Review Subjective (Free Text): Sebastian Petersen DO, PGY1. ICU progress note for Dr Rubalcava Patient seen and examined at bedside. She is AAOx3, answers questions appropriately. She denies any complaints. No significant events overnight. Left foot dressing wrapped with no oozing. Denied fever, chills,chest pain, palpitations, headache. CCU Objective - Vital Signs / Intake & Output Vital Signs (Last 4 hours): Vital Signs Pulse BP Pulse Ox 03/19/18 06:31 101 H 96 03/19/18 06:30 131/66 03/19/18 06:29 99 H 95 03/19/18 06:28 99 H 96 03/19/18 06:27 99 H 96 03/19/18 06:26 99 H 96 03/19/18 06:25 100 H 96 03/19/18 06:20 100 H 96 03/19/18 06:15 130/60 03/19/18 06:14 98 H 96 03/19/18 06:10 100 H 96 03/19/18 06:00 102 H 142/69 96 03/19/18 05:50 101 H 98 03/19/18 05:45 100 H 131/57 L 96 03/19/18 05:40 99 H 96 03/19/18 05:30 98 H 130/60 97 03/19/18 05:20 102 H 98 03/19/18 05:15 97 H 134/57 L 97 03/19/18 05:10 96 H 96 03/19/18 05:00 119/56 L 03/19/18 04:59 94 H 95 03/19/18 04:56 94 H 03/19/18 04:55 94 H 03/19/18 04:54 94 H 03/19/18 04:53 95 H 03/19/18 04:52 94 H 03/19/18 04:51 85 03/19/18 04:50 95 H 03/19/18 04:40 96 H 100 03/19/18 04:30 116/59 L 100 03/19/18 04:20 97 H 100 03/19/18 04:15 96 H 123/61 100 03/19/18 04:10 96 H 100 03/19/18 04:00 102 H 137/68 100 03/19/18 03:50 98 H 100 03/19/18 03:45 97 H 118/62 100 03/19/18 03:40 98 H 100 03/19/18 03:30 99 H 147/69 100 03/19/18 03:20 95 H 100 03/19/18 03:15 96 H 122/59 L 100 Intake and Output (Last 8hrs): Intake & Output 03/18/18 03/18/18 03/19/18 14:59 22:59 06:59 Intake Total 75 400 Output Total 1380 Balance 75 -980 Intake: IV 75 200 Right Forearm 200 Oral 200 Output: Urine 380 Urethral (Moore) 380 Other 1000 - Physical Exam Head: Positive for: Atraumatic, Normocephalic Pupils: Positive for: PERRL Extroacular Muscles: Positive for: EOMI Conjunctiva: Positive for: Normal Ears: Positive for: Normal Mouth: Positive for: Moist Mucous Membranes Pharnyx: Positive for: Normal. Negative for: ERYTHEMA, EXUDATE Nose (External): Positive for: Atraumatic Nose (Internal): Positive for: Normal Inspection, Moist, Clear Mucous Neck: Positive for: Normal Range of Motion, Other (tight IJ catherter). Negative for: Meningeal Signs, MIDLINE TENDERNESS, Paraspinal Tenderness Respiratory/Chest: Positive for: Clear to Auscultation, Good Air Exchange. Negative for: Respiratory Distress, Accessory Muscle Use, Wheezes, Decreased Breath Sounds, Rales, Retracting, Rhonchi Cardiovascular: Positive for: Regular Rate and Rhythm, Normal S1, S2, Peripheal Pulses Present. Negative for: Murmurs Abdomen: Positive for: Normal Bowel Sounds. Negative for: Tenderness, Distention, Peritoneal Signs, Rebound, Guarding Back: Positive for: Normal Inspection Upper Extremity: Positive for: Normal Inspection, Normal ROM, NORMAL PULSES, Neurovascularly Intact, Capillary Refill < 2s. Negative for: Cyanosis, Edema, Tenderness, Swelling, Erythema Lower Extremity: Positive for: NORMAL PULSES, Capillary Refill < 2 s, Other (Left food dressing applied no blood oozing seen. decreased sensation to right foot). Negative for: CALF TENDERNESS, Cyanosis, Althea's Sign, Deformity Neurological: Positive for: GCS=15, CN II-XII Intact, Speech Normal, Motor Func Grossly Intact, Normal Sensory Function, Gait Normal, Memory Normal Skin: Positive for: Warm, Dry, Normal Color, Erythematous (left anterior foot and ankle), Hot, Other (black/blue discoloration with fluctuance plantar surface left foot, no induration or surrounding erythema; ulcer on right foot 2nd digit, no surrounding erythema or swelling ). Negative for: Rashes, Induration, Abscess Lymphatic: Negative for: Cervical Adenopathy Psychiatric: Positive for: Alert, Oriented x 3, Normal Insight, Normal Concentration, Normal Affect, Normal Mood - Medications Active Medications: Active Medications Generic Name Dose Route Start Last Admin Trade Name Freq PRN Reason Stop Dose Admin Acetaminophen 650 mg 03/14/18 14:24 03/15/18 18:14 Tylenol 325mg Tab PO 650 mg Q6H PRN Administration Pain, moderate (4-7) Albuterol/Ipratropium 3 ml 03/18/18 07:15 03/19/18 02:40 Duoneb 3 Mg/0.5 Mg (3 Ml) Ud IH 3 ml Q6H MAMADOU Administration Allopurinol 100 mg 03/17/18 10:00 03/18/18 19:37 Zyloprim PO 100 mg DAILY MAMADOU Administration Atorvastatin Calcium 20 mg 03/15/18 10:00 03/18/18 09:50 Lipitor PO 20 mg DAILY MAMADOU Administration Clopidogrel Bisulfate 75 mg 03/14/18 14:30 03/15/18 10:20 Plavix PO 75 mg DAILY MAMADOU Administration Meropenem/Sodium Chloride 500 mg in 50 mls @ 100 mls/hr 03/14/18 22:00 03/18/18 22:54 Merrem Iv 500 Mg/Ns 50 Ml IVPB 03/23/18 22:01 100 mls/hr Q12 MAMADOU Administration Protocol NOREPINEPHRINE BIT/0.9 % NACL 4 mg in 250 mls @ 15 mls/hr 03/16/18 23:43 03/18/18 10:00 Levophed 4 Mg/ 250 Ml Ns Premixed IV 0 mcg/min .[id number] PRN 0 mls/hr TITRATE PER MD ORDER Titration Protocol 4 MCG/MIN Insulin Detemir 20 unit 03/18/18 22:00 03/18/18 22:56 Levemir SC 20 unit HS MAMADOU Administration Insulin Human Lispro 0 units 03/14/18 16:30 03/18/18 22:57 Humalog Med SC Not Given ACHS MAMADOU Montelukast Sodium 10 mg 03/14/18 22:00 03/18/18 22:56 Singulair PO 10 mg HS MAMADOU Administration Home Med - 25 mg 03/14/18 18:00 03/18/18 13:25 Fluvoxamine [Luvox] PO Not Given 25 Mg BID MAMADOU Home Med - 1 puff 03/14/18 22:00 03/18/18 22:57 Umeclidinium [place] IH Not Given [Incruse Ellipta] 1 HS MAMADOU Puff Nortriptyline HCl 50 mg 03/15/18 23:00 03/18/18 22:55 Pamelor PO 50 mg HS MAMADOU Administration Oxychlorosene Sodium 2 gm 03/16/18 22:00 03/18/18 09:46 Clorpactin Wcs-90 TOP 2 gm Q12 MAMADOU Administration Oxymetazoline HCl 0 ml 03/15/18 14:00 03/18/18 17:15 Afrin 0.05% NS 2 spray TID MAMADOU Administration Pantoprazole Sodium 20 mg 03/15/18 07:30 03/18/18 08:12 Protonix Ec Tab PO 20 mg ACB MAMADOU Administration Quetiapine Fumarate 100 mg 03/14/18 22:00 03/18/18 22:55 Seroquel Xr PO 100 mg HS MAMADOU Administration Protocol Silver Sulfadiazine 1 gm 03/14/18 18:00 03/18/18 17:14 Silvadene 1% 25 Gm TP Not Given BID MAMADOU Tizanidine HCl 2 mg 03/14/18 18:00 03/19/18 06:22 Zanaflex PO 2 mg Q6 MAMADOU Administration - Patient Studies Lab Studies: Microbiology Studies 03/16/18 09:03 Gram Stain - Final Other: Please Indicate 03/16/18 09:03 Gram Stain - Final Other: Please Indicate 03/17/18 06:30 Urine Culture - Final Urine,Moore No Growth (<1,000 CFU/ML) 03/16/18 20:15 MRSA Culture (Admit) - Final Naris MRSA NOT DETECTED 03/16/18 09:40 Blood Culture - Preliminary Blood NO GROWTH AFTER 48 HOURS 03/16/18 09:15 Blood Culture - Preliminary Blood NO GROWTH AFTER 48 HOURS Lab Studies 03/19/18 03/19/18 03/19/18 Range/Units 05:30 05:10 05:10 WBC 24.2 H (4.5-11.0) 10^3/uL RBC 2.50 L (3.5-6.1) 10^6/uL Hgb 7.0 L (12.0-16.0) g/dL Hct 21.0 L (36.0-48.0) % MCV 84.0 (80.0-105.0) fl MCH 28.0 (25.0-35.0) pg MCHC 33.3 (31.0-37.0) g/dl RDW 17.0 H (11.5-14.5) % Plt Count 258 (120.0-450.0) 10^3/uL MPV 9.4 (7.0-11.0) fl Gran % 86.4 H (50.0-68.0) % Lymph % (Auto) 5.8 L (22.0-35.0) % [place] % (Auto) 6.8 H (1.0-6.0) % Eos % (Auto) 0.9 L (1.5-5.0) % Baso % (Auto) 0.1 (0.0-3.0) % Gran # 20.92 H (1.4-6.5) Lymph # (Auto) 1.4 (1.2-3.4) [place] # (Auto) 1.6 H (0.1-0.6) Eos # (Auto) 0.2 (0.0-0.7) Baso # (Auto) 0.03 (0.0-2.0) K/mm3 pCO2 43 (35-45) mm/Hg pO2 79.0 L (80-100) mm/Hg HCO3 21.7 (21-28) mmol/L ABG pH 7.31 L (7.35-7.45) ABG Total CO2 23.0 (22-28) mmol.L ABG O2 Saturation 96.2 (95-98) % ABG O2 Content 11.1 L (15-23) ML/dl ABG Base Excess -4.3 L (-2.0-3.0) mmol/L ABG Hemoglobin 8.3 L (11.7-17.4) g/dL ABG Carboxyhemoglobin 1.6 H (0.5-1.5) % POC ABG HHb (Measured) 3.7 (0-5) % ABG Methemoglobin 0.2 (0.0-3.0) % ABG O2 Capacity 11.5 L (16-24) mL/dl Hgb O2 Saturation 94.4 L (95.0-98.0) % FiO2 32.0 % Sodium 136 (132-148) mmol/L Potassium 4.1 (3.6-5.0) mmol/L Chloride 100 (98-107) mmol/L Carbon Dioxide 24 (21-33) mmol/L Anion Gap 17 (10-20) BUN 42 H (7-21) mg/dL Creatinine 3.6 H (0.7-1.2) mg/dl Est GFR ( Amer) 16 Est GFR (Non-Af Amer) 13 POC Glucose (mg/dL) (65-110) mg/dL Random Glucose 168 H (70-110) mg/dL Hemoglobin A1c (4.2-6.5) % Calcium 8.4 (8.4-10.5) mg/dL Total Bilirubin 0.5 (0.2-1.3) mg/dL AST 125 H D (14-36) U/L ALT 62 H (7-56) U/L Alkaline Phosphatase 214 H (38-126) U/L Total Protein 5.9 (5.8-8.3) g/dL Albumin 2.6 L (3.0-4.8) g/dL Globulin 3.4 gm/dL Albumin/Globulin Ratio 0.8 L (1.1-1.8) Lipase (23-300) U/L Hep Bs Antigen (NEGATIVE) Hep Bs Antibody (NEGATIVE) Hep Bs Antibody, Quant (>or=10) mIU/mL Hep B Core Total Ab (Non Reactive) 03/18/18 03/18/18 03/18/18 Range/Units 21:28 17:13 12:26 WBC (4.5-11.0) 10^3/uL RBC (3.5-6.1) 10^6/uL Hgb (12.0-16.0) g/dL Hct (36.0-48.0) % MCV (80.0-105.0) fl MCH (25.0-35.0) pg MCHC (31.0-37.0) g/dl RDW (11.5-14.5) % Plt Count (120.0-450.0) 10^3/uL MPV (7.0-11.0) fl Gran % (50.0-68.0) % Lymph % (Auto) (22.0-35.0) % [place] % (Auto) (1.0-6.0) % Eos % (Auto) (1.5-5.0) % Baso % (Auto) (0.0-3.0) % Gran # (1.4-6.5) Lymph # (Auto) (1.2-3.4) [place] # (Auto) (0.1-0.6) Eos # (Auto) (0.0-0.7) Baso # (Auto) (0.0-2.0) K/mm3 pCO2 (35-45) mm/Hg pO2 (80-100) mm/Hg HCO3 (21-28) mmol/L ABG pH (7.35-7.45) ABG Total CO2 (22-28) mmol.L ABG O2 Saturation (95-98) % ABG O2 Content (15-23) ML/dl ABG Base Excess (-2.0-3.0) mmol/L ABG Hemoglobin (11.7-17.4) g/dL ABG Carboxyhemoglobin (0.5-1.5) % POC ABG HHb (Measured) (0-5) % ABG Methemoglobin (0.0-3.0) % ABG O2 Capacity (16-24) mL/dl Hgb O2 Saturation (95.0-98.0) % FiO2 % Sodium (132-148) mmol/L Potassium (3.6-5.0) mmol/L Chloride (98-107) mmol/L Carbon Dioxide (21-33) mmol/L Anion Gap (10-20) BUN (7-21) mg/dL Creatinine (0.7-1.2) mg/dl Est GFR ( Amer) Est GFR (Non-Af Amer) POC Glucose (mg/dL) 172 H 145 H 216 H (65-110) mg/dL Random Glucose (70-110) mg/dL Hemoglobin A1c (4.2-6.5) % Calcium (8.4-10.5) mg/dL Total Bilirubin (0.2-1.3) mg/dL AST (14-36) U/L ALT (7-56) U/L Alkaline Phosphatase (38-126) U/L Total Protein (5.8-8.3) g/dL Albumin (3.0-4.8) g/dL Globulin gm/dL Albumin/Globulin Ratio (1.1-1.8) Lipase (23-300) U/L Hep Bs Antigen (NEGATIVE) Hep Bs Antibody (NEGATIVE) Hep Bs Antibody, Quant (>or=10) mIU/mL Hep B Core Total Ab (Non Reactive) 03/18/18 03/18/18 03/17/18 Range/Units 10:00 05:20 16:25 WBC (4.5-11.0) 10^3/uL RBC (3.5-6.1) 10^6/uL Hgb (12.0-16.0) g/dL Hct (36.0-48.0) % MCV (80.0-105.0) fl MCH (25.0-35.0) pg MCHC (31.0-37.0) g/dl RDW (11.5-14.5) % Plt Count (120.0-450.0) 10^3/uL MPV (7.0-11.0) fl Gran % (50.0-68.0) % Lymph % (Auto) (22.0-35.0) % [place] % (Auto) (1.0-6.0) % Eos % (Auto) (1.5-5.0) % Baso % (Auto) (0.0-3.0) % Gran # (1.4-6.5) Lymph # (Auto) (1.2-3.4) [place] # (Auto) (0.1-0.6) Eos # (Auto) (0.0-0.7) Baso # (Auto) (0.0-2.0) K/mm3 pCO2 (35-45) mm/Hg pO2 (80-100) mm/Hg HCO3 (21-28) mmol/L ABG pH (7.35-7.45) ABG Total CO2 (22-28) mmol.L ABG O2 Saturation (95-98) % ABG O2 Content (15-23) ML/dl ABG Base Excess (-2.0-3.0) mmol/L ABG Hemoglobin (11.7-17.4) g/dL ABG Carboxyhemoglobin (0.5-1.5) % POC ABG HHb (Measured) (0-5) % ABG Methemoglobin (0.0-3.0) % ABG O2 Capacity (16-24) mL/dl Hgb O2 Saturation (95.0-98.0) % FiO2 % Sodium (132-148) mmol/L Potassium (3.6-5.0) mmol/L Chloride (98-107) mmol/L Carbon Dioxide (21-33) mmol/L Anion Gap (10-20) BUN (7-21) mg/dL Creatinine (0.7-1.2) mg/dl Est GFR ( Amer) Est GFR (Non-Af Amer) POC Glucose (mg/dL) (65-110) mg/dL Random Glucose (70-110) mg/dL Hemoglobin A1c 8.2 H (4.2-6.5) % Calcium (8.4-10.5) mg/dL Total Bilirubin (0.2-1.3) mg/dL AST (14-36) U/L ALT (7-56) U/L Alkaline Phosphatase (38-126) U/L Total Protein (5.8-8.3) g/dL Albumin (3.0-4.8) g/dL Globulin gm/dL Albumin/Globulin Ratio (1.1-1.8) Lipase 345 H (23-300) U/L Hep Bs Antigen Negative (NEGATIVE) Hep Bs Antibody (NEGATIVE) Hep Bs Antibody, Quant (>or=10) mIU/mL Hep B Core Total Ab (Non Reactive) 03/17/18 03/17/18 Range/Units 14:38 14:38 WBC (4.5-11.0) 10^3/uL RBC (3.5-6.1) 10^6/uL Hgb (12.0-16.0) g/dL Hct (36.0-48.0) % MCV (80.0-105.0) fl MCH (25.0-35.0) pg MCHC (31.0-37.0) g/dl RDW (11.5-14.5) % Plt Count (120.0-450.0) 10^3/uL MPV (7.0-11.0) fl Gran % (50.0-68.0) % Lymph % (Auto) (22.0-35.0) % [place] % (Auto) (1.0-6.0) % Eos % (Auto) (1.5-5.0) % Baso % (Auto) (0.0-3.0) % Gran # (1.4-6.5) Lymph # (Auto) (1.2-3.4) [place] # (Auto) (0.1-0.6) Eos # (Auto) (0.0-0.7) Baso # (Auto) (0.0-2.0) K/mm3 pCO2 (35-45) mm/Hg pO2 (80-100) mm/Hg HCO3 (21-28) mmol/L ABG pH (7.35-7.45) ABG Total CO2 (22-28) mmol.L ABG O2 Saturation (95-98) % ABG O2 Content (15-23) ML/dl ABG Base Excess (-2.0-3.0) mmol/L ABG Hemoglobin (11.7-17.4) g/dL ABG Carboxyhemoglobin (0.5-1.5) % POC ABG HHb (Measured) (0-5) % ABG Methemoglobin (0.0-3.0) % ABG O2 Capacity (16-24) mL/dl Hgb O2 Saturation (95.0-98.0) % FiO2 % Sodium (132-148) mmol/L Potassium (3.6-5.0) mmol/L Chloride (98-107) mmol/L Carbon Dioxide (21-33) mmol/L Anion Gap (10-20) BUN (7-21) mg/dL Creatinine (0.7-1.2) mg/dl Est GFR ( Amer) Est GFR (Non-Af Amer) POC Glucose (mg/dL) (65-110) mg/dL Random Glucose (70-110) mg/dL Hemoglobin A1c (4.2-6.5) % Calcium (8.4-10.5) mg/dL Total Bilirubin (0.2-1.3) mg/dL AST (14-36) U/L ALT (7-56) U/L Alkaline Phosphatase (38-126) U/L Total Protein (5.8-8.3) g/dL Albumin (3.0-4.8) g/dL Globulin gm/dL Albumin/Globulin Ratio (1.1-1.8) Lipase (23-300) U/L Hep Bs Antigen (NEGATIVE) Hep Bs Antibody Negative (NEGATIVE) Hep Bs Antibody, Quant <5 L (>or=10) mIU/mL Hep B Core Total Ab Non reactive (Non Reactive) Laboratory Results - last 24 hr 03/17/18 03/17/18 03/17/18 14:38 14:38 16:25 WBC RBC Hgb Hct MCV MCH MCHC RDW Plt Count MPV Gran % Lymph % (Auto) [place] % (Auto) Eos % (Auto) Baso % (Auto) Gran # Lymph # (Auto) [place] # (Auto) Eos # (Auto) Baso # (Auto) pCO2 pO2 HCO3 ABG pH ABG Total CO2 ABG O2 Saturation ABG O2 Content ABG Base Excess ABG Hemoglobin ABG Carboxyhemoglobin POC ABG HHb (Measured) ABG Methemoglobin ABG O2 Capacity Hgb O2 Saturation FiO2 Sodium Potassium Chloride Carbon Dioxide Anion Gap BUN Creatinine Est GFR ( Amer) Est GFR (Non-Af Amer) POC Glucose (mg/dL) Random Glucose Hemoglobin A1c Calcium Total Bilirubin AST ALT Alkaline Phosphatase Total Protein Albumin Globulin Albumin/Globulin Ratio Lipase Hep Bs Antigen Negative Hep Bs Antibody Negative Hep Bs Antibody, Quant <5 L Hep B Core Total Ab Non reactive 03/18/18 03/18/18 03/18/18 05:20 10:00 12:26 WBC RBC Hgb Hct MCV MCH MCHC RDW Plt Count MPV Gran % Lymph % (Auto) [place] % (Auto) Eos % (Auto) Baso % (Auto) Gran # Lymph # (Auto) [place] # (Auto) Eos # (Auto) Baso # (Auto) pCO2 pO2 HCO3 ABG pH ABG Total CO2 ABG O2 Saturation ABG O2 Content ABG Base Excess ABG Hemoglobin ABG Carboxyhemoglobin POC ABG HHb (Measured) ABG Methemoglobin ABG O2 Capacity Hgb O2 Saturation FiO2 Sodium Potassium Chloride Carbon Dioxide Anion Gap BUN Creatinine Est GFR ( Amer) Est GFR (Non-Af Amer) POC Glucose (mg/dL) 216 H Random Glucose Hemoglobin A1c 8.2 H Calcium Total Bilirubin AST ALT Alkaline Phosphatase Total Protein Albumin Globulin Albumin/Globulin Ratio Lipase 345 H Hep Bs Antigen Hep Bs Antibody Hep Bs Antibody, Quant Hep B Core Total Ab 03/18/18 03/18/18 03/19/18 17:13 21:28 05:10 WBC 24.2 H RBC 2.50 L Hgb 7.0 L Hct 21.0 L MCV 84.0 MCH 28.0 MCHC 33.3 RDW 17.0 H Plt Count 258 MPV 9.4 Gran % 86.4 H Lymph % (Auto) 5.8 L [place] % (Auto) 6.8 H Eos % (Auto) 0.9 L Baso % (Auto) 0.1 Gran # 20.92 H Lymph # (Auto) 1.4 [place] # (Auto) 1.6 H Eos # (Auto) 0.2 Baso # (Auto) 0.03 pCO2 pO2 HCO3 ABG pH ABG Total CO2 ABG O2 Saturation ABG O2 Content ABG Base Excess ABG Hemoglobin ABG Carboxyhemoglobin POC ABG HHb (Measured) ABG Methemoglobin ABG O2 Capacity Hgb O2 Saturation FiO2 Sodium Potassium Chloride Carbon Dioxide Anion Gap BUN Creatinine Est GFR ( Amer) Est GFR (Non-Af Amer) POC Glucose (mg/dL) 145 H 172 H Random Glucose Hemoglobin A1c Calcium Total Bilirubin AST ALT Alkaline Phosphatase Total Protein Albumin Globulin Albumin/Globulin Ratio Lipase Hep Bs Antigen Hep Bs Antibody Hep Bs Antibody, Quant Hep B Core Total Ab 03/19/18 03/19/18 05:10 05:30 WBC RBC Hgb Hct MCV MCH MCHC RDW Plt Count MPV Gran % Lymph % (Auto) [place] % (Auto) Eos % (Auto) Baso % (Auto) Gran # Lymph # (Auto) [place] # (Auto) Eos # (Auto) Baso # (Auto) pCO2 43 pO2 79.0 L HCO3 21.7 ABG pH 7.31 L ABG Total CO2 23.0 ABG O2 Saturation 96.2 ABG O2 Content 11.1 L ABG Base Excess -4.3 L ABG Hemoglobin 8.3 L ABG Carboxyhemoglobin 1.6 H POC ABG HHb (Measured) 3.7 ABG Methemoglobin 0.2 ABG O2 Capacity 11.5 L Hgb O2 Saturation 94.4 L FiO2 32.0 Sodium 136 Potassium 4.1 Chloride 100 Carbon Dioxide 24 Anion Gap 17 BUN 42 H Creatinine 3.6 H Est GFR ( Amer) 16 Est GFR (Non-Af Amer) 13 POC Glucose (mg/dL) Random Glucose 168 H Hemoglobin A1c Calcium 8.4 Total Bilirubin 0.5 AST 125 H D ALT 62 H Alkaline Phosphatase 214 H Total Protein 5.9 Albumin 2.6 L Globulin 3.4 Albumin/Globulin Ratio 0.8 L Lipase Hep Bs Antigen Hep Bs Antibody Hep Bs Antibody, Quant Hep B Core Total Ab Fingerstick Blood Sugar Results: 172 Critical Care Progress Note - Nutrition Nutrition: Nutrition Category Date Time Status Renal Diet [DIET] Diets 03/18/18 Lunch Ordered Assessment/Plan - Assessment and Plan (Free Text) Assessment: 57 y/o F with PMH of COPD, obesity, HTN, CHF, DM, diabetic neuropathy, CKD, charcot foot and cellulitis of LE admitted to ICU for septic shock in the setting of cellulitis s/p I&D of left foot. Developed hyperkalemic metabolic acidosis required emergent dialysis. Sepsis improved and patient is hemodynamically stabe Plan: Neuro: - Patient AOx3. lethargy is getting better - Maintain normothermia CV: - h/o CHF s/p PCI - BP normalized 119/59 - Titrate then wean off Levophed - Echo: EF 59.5%, mild LVH - Continue lipitor, plavix - Maintain MAP>65 - Cardio following Pulm: - h/o COPD - AB.31, 43, 79, 21.7 - Continue Duoneb Q6H - Continue home med cingulair - CXR: no acute pathology - Maintain O2 sat > 90% GI: - TG 858, on lipitor - lipase 345 - AST/ALT trending down Renal: - JAMIL on CKD likely due to sepsis - Hyperkalemic metabolic alkalosis: kayexelate, D50, insulin given initially - Patient went for emergent dialysis through [facility] cather placed in ICU. - Patient will be reassessed by nephro tomorrow for possible dialysis - BUN/Cr 42/3.6 trending down - I/O: 725/1680 in last 24 hours - Renal US: right upper pole renal cyst - UA ordered - Moore catheter in place - Avoid nephrotoxic agents - Nephrology following - Urology following Heme: - H/H baseline 9.4/30.3 today 11/10. to be transfused one unit of blood today - Patient stable - s/p 3 units of PRBC transfusion (1 unit pre-op, 2 units in ICU) - Monitor H/H and transfuse to maintain Hgb > 7 - hold Plavix Endo: - complicated DM2 with neuropathy, charcot foot - ISS-med - Levemir 20U daily - Accuchecks ACHS - Maintain euglycemia ID: - resolving septic shock secondary to bacteremia - Leukocytosis trending down - CRP 220 - Blood culture showed S Aureus; repeat is negative - Wound culture showed staph aureus - Continue Daptomycin and Meropenem per ID MSK: - POD#3 for I&D of left foot - Left foot dressing applied. no oozing of blood - Left foot xray showed erosion of the 4th metatarsal - MRI of left foot: read pending - Continue home med xanaflex - Pain med prn - Podiatry following - h/o fibromyalgia: continue home med zanaflex Prophylaxis: - GI ppx: Protonix - DVT ppx: SCD Renal diet Dispo: Patient's sepsis is resolving. She is hemodynamically stable. Transfer to [facility] Case reviewed and plan discussed with Dr. Odilon Petersen, PGY1 <Tejinder Donald - Last Filed: 03/20/18 08:45> CCU Objective - Vital Signs / Intake & Output Vital Signs (Last 4 hours): Vital Signs Pulse 03/20/18 05:37 95 H Intake and Output (Last 8hrs): Intake & Output 03/19/18 03/20/18 03/20/18 22:59 06:59 14:59 Intake Total 650 50 Output Total 1300 Balance 650 -1250 Intake: IV 325 50 Right Forearm 325 50 Blood Product 325 Red Blood Cells Cpd As1 325 Lr Unit [id number] Output: Urine 1300 Urethral (Moore) 1300 Other: # Bowel Movements 3 - Medications Active Medications: Active Medications Generic Name Dose Route Start Last Admin Trade Name Freq PRN Reason Stop Dose Admin Acetaminophen 650 mg 03/14/18 14:24 03/15/18 18:14 Tylenol 325mg Tab PO 650 mg Q6H PRN Administration Pain, moderate (4-7) Albuterol/Ipratropium 3 ml 03/18/18 07:15 03/20/18 07:32 Duoneb 3 Mg/0.5 Mg (3 Ml) Ud IH 3 ml Q6H MAMADOU Administration Allopurinol 100 mg 03/17/18 10:00 03/19/18 09:09 Zyloprim PO 100 mg DAILY MAMADOU Administration Atorvastatin Calcium 20 mg 03/15/18 10:00 03/18/18 09:50 Lipitor PO 20 mg DAILY MAMADOU Administration Calcium Acetate 667 mg 03/19/18 12:00 03/19/18 18:25 Phoslo PO 667 mg WM MAMADOU Administration Clopidogrel Bisulfate 75 mg 03/14/18 14:30 03/19/18 09:23 Plavix PO Not Given DAILY MAMADOU Darbepoetin Manjit 100 mcg 03/20/18 10:00 Aranesp SC 03/20/18 10:01 ONCE ONE Meropenem/Sodium Chloride 500 mg in 50 mls @ 100 mls/hr 03/14/18 22:00 03/19/18 22:18 Merrem Iv 500 Mg/Ns 50 Ml IVPB 03/23/18 22:01 100 mls/hr Q12 MAMADOU Administration Protocol Insulin Detemir 20 unit 03/18/18 22:00 03/19/18 22:17 Levemir SC 20 unit HS MAMADOU Administration Insulin Human Lispro 0 units 03/14/18 16:30 03/19/18 22:19 Humalog Med SC Not Given ACHS MAMADOU Montelukast Sodium 10 mg 03/14/18 22:00 03/19/18 22:18 Singulair PO 10 mg HS MAMADOU Administration Home Med - 25 mg 03/14/18 18:00 03/19/18 18:25 Fluvoxamine [Luvox] PO Not Given 25 Mg BID [facility] Home Med - 1 puff 03/14/18 22:00 03/18/18 22:57 Umeclidinium [place] [facility] Not Given [Incruse Ellipta] 1 HS [facility] Puff Nortriptyline HCl 50 mg 03/15/18 23:00 03/19/18 22:18 Pamelor PO 50 mg HS MAMADOU Administration Oxychlorosene Sodium 2 gm 03/16/18 22:00 03/19/18 15:26 Clorpactin Wcs-90 TOP 2 gm Q12 MAMADOU Administration Oxymetazoline HCl 0 ml 03/15/18 14:00 03/19/18 18:47 Afrin 0.05% NS Not Given TID MAMADOU Pantoprazole Sodium 20 mg 03/15/18 07:30 03/19/18 08:09 Protonix Ec Tab PO 20 mg ACB MAMADOU Administration Quetiapine Fumarate 100 mg 03/14/18 22:00 03/19/18 22:18 Seroquel Xr PO 100 mg HS MAMADOU Administration Protocol Silver Sulfadiazine 1 gm 03/14/18 18:00 03/19/18 18:25 Silvadene 1% 25 Gm TP Not Given BID MAMADOU Tizanidine HCl 2 mg 03/14/18 18:00 03/20/18 05:59 Zanaflex PO 2 mg Q6 MAMADOU Administration - Patient Studies Lab Studies: Microbiology Studies 03/16/18 09:03 Gram Stain - Final Other: Please Indicate Wound Culture - Final Staphylococcus Aureus 03/16/18 09:03 Gram Stain - Final Other: Please Indicate Wound Culture - Preliminary Gram Positive Cocci 03/18/18 13:30 Blood Culture - Preliminary Blood-Venous NO GROWTH AFTER 24 HOURS 03/18/18 13:05 Blood Culture - Preliminary Blood-Venous NO GROWTH AFTER 24 HOURS 03/16/18 09:40 Blood Culture - Preliminary Blood NO GROWTH AFTER 3 DAYS 03/16/18 09:15 Blood Culture - Preliminary Blood NO GROWTH AFTER 3 DAYS Lab Studies 03/20/18 03/20/18 03/19/18 Range/Units 06:35 06:35 21:47 WBC 16.7 H D (4.5-11.0) 10^3/uL RBC 2.75 L (3.5-6.1) 10^6/uL Hgb 7.7 L (12.0-16.0) g/dL Hct 23.2 L (36.0-48.0) % MCV 84.4 (80.0-105.0) fl MCH 28.0 (25.0-35.0) pg MCHC 33.2 (31.0-37.0) g/dl RDW 16.6 H (11.5-14.5) % Plt Count 233 (120.0-450.0) 10^3/uL MPV 9.3 (7.0-11.0) fl Gran % 84.7 H (50.0-68.0) % Lymph % (Auto) 7.3 L (22.0-35.0) % [place] % (Auto) 6.5 H (1.0-6.0) % Eos % (Auto) 1.4 L (1.5-5.0) % Baso % (Auto) 0.1 (0.0-3.0) % Gran # 14.10 H (1.4-6.5) Lymph # (Auto) 1.2 (1.2-3.4) [place] # (Auto) 1.1 H (0.1-0.6) Eos # (Auto) 0.2 (0.0-0.7) Baso # (Auto) 0.01 (0.0-2.0) K/mm3 Sodium 138 (132-148) mmol/L Potassium 3.6 (3.6-5.0) mmol/L Chloride 100 (98-107) mmol/L Carbon Dioxide 28 (21-33) mmol/L Anion Gap 13 (10-20) BUN 51 H (7-21) mg/dL Creatinine 4.2 H (0.7-1.2) mg/dl Est GFR ( Amer) 13 Est GFR (Non-Af Amer) 11 POC Glucose (mg/dL) 183 H (65-110) mg/dL Random Glucose 122 H (70-110) mg/dL Calcium 8.7 (8.4-10.5) mg/dL Phosphorus 8.5 H (2.5-4.5) mg/dL Magnesium 1.9 (1.7-2.2) mg/dL Total Bilirubin 0.4 (0.2-1.3) mg/dL AST 84 H D (14-36) U/L ALT 45 (7-56) U/L Alkaline Phosphatase 187 H (38-126) U/L Total Protein 6.0 (5.8-8.3) g/dL Albumin 2.5 L (3.0-4.8) g/dL Globulin 3.5 gm/dL Albumin/Globulin Ratio 0.7 L (1.1-1.8) Blood Type Antibody Screen Crossmatch BBK History Checked 11/27/18 11/27/18 11/27/18 Range/Units 12:35 11:04 07:25 WBC (4.5-11.0) 10^3/uL RBC (3.5-6.1) 10^6/uL Hgb (12.0-16.0) g/dL Hct (36.0-48.0) % MCV (80.0-105.0) fl MCH (25.0-35.0) pg MCHC (31.0-37.0) g/dl RDW (11.5-14.5) % Plt Count (120.0-450.0) 10^3/uL MPV (7.0-11.0) fl Gran % (50.0-68.0) % Lymph % (Auto) (22.0-35.0) % [place] % (Auto) (1.0-6.0) % Eos % (Auto) (1.5-5.0) % Baso % (Auto) (0.0-3.0) % Gran # (1.4-6.5) Lymph # (Auto) (1.2-3.4) [place] # (Auto) (0.1-0.6) Eos # (Auto) (0.0-0.7) Baso # (Auto) (0.0-2.0) K/mm3 Sodium (132-148) mmol/L Potassium (3.6-5.0) mmol/L Chloride (98-107) mmol/L Carbon Dioxide (21-33) mmol/L Anion Gap (10-20) BUN (7-21) mg/dL Creatinine (0.7-1.2) mg/dl Est GFR ( Amer) Est GFR (Non-Af Amer) POC Glucose (mg/dL) 157 H 154 H (65-110) mg/dL Random Glucose (70-110) mg/dL Calcium (8.4-10.5) mg/dL Phosphorus (2.5-4.5) mg/dL Magnesium (1.7-2.2) mg/dL Total Bilirubin (0.2-1.3) mg/dL AST (14-36) U/L ALT (7-56) U/L Alkaline Phosphatase (38-126) U/L Total Protein (5.8-8.3) g/dL Albumin (3.0-4.8) g/dL Globulin gm/dL Albumin/Globulin Ratio (1.1-1.8) Blood Type A POSITIVE Antibody Screen Negative Crossmatch See Detail BBK History Checked Patient has bt 03/16/18 Range/Units 10:50 WBC (4.5-11.0) 10^3/uL RBC (3.5-6.1) 10^6/uL Hgb (12.0-16.0) g/dL Hct (36.0-48.0) % MCV (80.0-105.0) fl MCH (25.0-35.0) pg MCHC (31.0-37.0) g/dl RDW (11.5-14.5) % Plt Count (120.0-450.0) 10^3/uL MPV (7.0-11.0) fl Gran % (50.0-68.0) % Lymph % (Auto) (22.0-35.0) % [place] % (Auto) (1.0-6.0) % Eos % (Auto) (1.5-5.0) % Baso % (Auto) (0.0-3.0) % Gran # (1.4-6.5) Lymph # (Auto) (1.2-3.4) [place] # (Auto) (0.1-0.6) Eos # (Auto) (0.0-0.7) Baso # (Auto) (0.0-2.0) K/mm3 Sodium (132-148) mmol/L Potassium (3.6-5.0) mmol/L Chloride (98-107) mmol/L Carbon Dioxide (21-33) mmol/L Anion Gap (10-20) BUN (7-21) mg/dL Creatinine (0.7-1.2) mg/dl Est GFR ( Amer) Est GFR (Non-Af Amer) POC Glucose (mg/dL) (65-110) mg/dL Random Glucose (70-110) mg/dL Calcium (8.4-10.5) mg/dL Phosphorus (2.5-4.5) mg/dL Magnesium (1.7-2.2) mg/dL Total Bilirubin (0.2-1.3) mg/dL AST (14-36) U/L ALT (7-56) U/L Alkaline Phosphatase (38-126) U/L Total Protein (5.8-8.3) g/dL Albumin (3.0-4.8) g/dL Globulin gm/dL Albumin/Globulin Ratio (1.1-1.8) Blood Type Antibody Screen Crossmatch See Detail BBK History Checked Laboratory Results - last 24 hr 03/16/18 03/19/18 03/19/18 10:50 07:25 11:04 WBC RBC Hgb Hct MCV MCH MCHC RDW Plt Count MPV Gran % Lymph % (Auto) [place] % (Auto) Eos % (Auto) Baso % (Auto) Gran # Lymph # (Auto) [place] # (Auto) Eos # (Auto) Baso # (Auto) Sodium Potassium Chloride Carbon Dioxide Anion Gap BUN Creatinine Est GFR ( Amer) Est GFR (Non-Af Amer) POC Glucose (mg/dL) 154 H 157 H Random Glucose Calcium Phosphorus Magnesium Total Bilirubin AST ALT Alkaline Phosphatase Total Protein Albumin Globulin Albumin/Globulin Ratio Blood Type Antibody Screen Crossmatch See Detail BBK History Checked 03/19/18 03/19/18 03/20/18 12:35 21:47 06:35 WBC 16.7 H D RBC 2.75 L Hgb 7.7 L Hct 23.2 L MCV 84.4 MCH 28.0 MCHC 33.2 RDW 16.6 H Plt Count 233 MPV 9.3 Gran % 84.7 H Lymph % (Auto) 7.3 L [place] % (Auto) 6.5 H Eos % (Auto) 1.4 L Baso % (Auto) 0.1 Gran # 14.10 H Lymph # (Auto) 1.2 [place] # (Auto) 1.1 H Eos # (Auto) 0.2 Baso # (Auto) 0.01 Sodium Potassium Chloride Carbon Dioxide Anion Gap BUN Creatinine Est GFR ( Amer) Est GFR (Non-Af Amer) POC Glucose (mg/dL) 183 H Random Glucose Calcium Phosphorus Magnesium Total Bilirubin AST ALT Alkaline Phosphatase Total Protein Albumin Globulin Albumin/Globulin Ratio Blood Type A POSITIVE Antibody Screen Negative Crossmatch See Detail BBK History Checked Patient has bt 03/20/18 06:35 WBC RBC Hgb Hct MCV MCH MCHC RDW Plt Count MPV Gran % Lymph % (Auto) [place] % (Auto) Eos % (Auto) Baso % (Auto) Gran # Lymph # (Auto) [place] # (Auto) Eos # (Auto) Baso # (Auto) Sodium 138 Potassium 3.6 Chloride 100 Carbon Dioxide 28 Anion Gap 13 BUN 51 H Creatinine 4.2 H Est GFR ( Amer) 13 Est GFR (Non-Af Amer) 11 POC Glucose (mg/dL) Random Glucose 122 H Calcium 8.7 Phosphorus 8.5 H Magnesium 1.9 Total Bilirubin 0.4 AST 84 H D ALT 45 Alkaline Phosphatase 187 H Total Protein 6.0 Albumin 2.5 L Globulin 3.5 Albumin/Globulin Ratio 0.7 L Blood Type Antibody Screen Crossmatch BBK History Checked Critical Care Progress Note - Nutrition Nutrition: Nutrition Category Date Time Status Renal Diet [DIET] Diets 03/18/18 Lunch Ordered Attending/Attestation - Attestation I have personally seen and examined this patient.: Yes I have fully participated in the care of the patient.: Yes I have reviewed all pertinent clinical information: Yes Notes (Text): 03/20/18 08:[address] Donald note
[2018-03-19] MEDS: Insulin Lispro (humaLOG) MEDIUM Coverage SC SCH ×4 (08:06→22:19)
[2018-03-19] MEDS: Pantoprazole 20 mg EC Tab PO SCH (08:09)
--- NOTE | 2018-03-19 08:25 | PN ---
DATE: 03/19/2018 SUBJECTIVE: The patient is seen and examined at bedside. She is comfortable. She is a little bit sleepy-->however, it is rather attributed to family day carer hours since the patient is comfortable, alert and easily arousable, oriented x3. Her night was uneventful. PHYSICAL EXAMINATION: VITAL SIGNS: Oxygen saturation 100% on 2 liters nasal cannula, blood pressure 135/66, end-tidal CO2 on the monitor 40, respiratory rate 19, heart rate 96. ENT: Head and neck atraumatic. LUNGS: Clear to auscultation bilaterally. HEART: Regular rate and rhythm. S1 and S2 normal. ABDOMEN: Soft, nontender, nondistended. MUSCULOSKELETAL: The left foot is status post complex I&D by Podiatry Service, bandages applied. SKIN: Moist. PSYCHIATRIC: The patient is alert, a little bit sleepy but easily arousable and oriented x3. LABORATORY DATA: WBC 24.2 down from 26.4 (overall trend is to resolving leukocytosis), hemoglobin 7, platelet count 258. Sodium 136, potassium 4.1, chloride 100, carbon dioxide 24, BUN 42, creatinine 3.6, glucose 168, AST 125, ALT 62 (LFTs are relatively stable except for AST trending down a bit). Lipase 345. INR 1.68. ABG is 7.31, pCO2 of 43. MEDICATIONS: DuoNeb every 6 hours, allopurinol, Lipitor (will put on hold in light of LFTs elevation), Plavix, fluvoxamine, Levemir, meropenem, Singulair, Pamelor, Protonix, Seroquel, umeclidinium bromide inhaler. ASSESSMENT: This is a 57-year-old lady with resolved septic shock who is currently hemodynamically stable, status post complex incision and drainage of left foot which is followed by Podiatry Service. The patient still have multiorgan dysfunction syndrome, probably related to just resolved septic shock including transaminitis and acute kidney injury/oliguria requiring dialysis. At present time, the patient is followed by Nephrology Service (Dr. Frank). I will touch base with Dr. Frank about need for dialysis for today as the patient is still a little bit acidotic. If dialysis will be done, we will transfuse 1 unit of blood during the dialysis. I would still avoid too much of crystalloids and maintain either even or slightly negative fluid balance as long as hemodynamics remains stable. Liver function tests are relatively stable; however, still elevated. I will hold statins at present time as data about statins in sepsis is equivocal. Overall the patient showed substantial improvement and will be transferred to Telemetry floor. We will continue to target euvolemia, glycemia, normothermia and oxygen saturation more than 90%. ccm time 40 min Tejinder Donald MD MTDSally
[2018-03-19] MEDS: MEROPENEM 500 MG in NS 500 MG/50 ML BAG IVPB SCH ×2 (09:02→22:18)
[2018-03-19] MEDS: FLUVOXAMINE 25 MG PO SCH ×2 (09:09→18:25)
[2018-03-19] MEDS: Oxymetazoline 0.05% Nasal Spray (30 ml) NS SCH ×3 (11:08→18:47)
--- NOTE | 2018-03-19 13:39 | PN ---
DATE: 03/19/2018 REASON FOR CONSULTATION AND FOLLOWUP: Cardiac evaluation, preop evaluation, postop followup, status post septic shock, diabetic nephropathy, history of coronary artery disease, status post incision and drainage of the left foot abscess. Still in ICU, 128, bed 7. SUBJECTIVE: The patient denies any chest pain, shortness of breath or any palpitations. Awake and alert. Off vasopressors, off Levophed for transfer to [facility]. OBJECTIVE: Does not have appetite, did not eat last night because of no appetite. PHYSICAL EXAMINATION: GENERAL: Not in apparent distress. VITAL SIGNS: Temperature afebrile, heart rate 95, blood pressure 134/66. HEENT: PERRLA. Extraocular muscles intact. NECK: Supple. No carotid bruits or thyromegaly. CHEST: Clear to auscultation. HEART: S1 and S2 regular. ABDOMEN: Soft. EXTREMITIES: Clubbing and cyanosis negative. LABORATORY DATA: WBC 24.2, hemoglobin 7, hematocrit 21.0, platelet count 258,000. Chemistry showed sodium 136, potassium 4.0, chloride of 100, carbon dioxide of 24, onion gap of 17, BUN of 42, creatinine 3.6. IMPRESSION: A 57-year-old female with a past medical history of diabetes, hypertension, hyperlipidemia, coronary artery disease status post stent on 03/03/2013, diabetic retinopathy and nephropathy admitted with left foot abscess, septic shock status post incision and drainage, severe anemia, end-stage renal disease on dialysis. RECOMMENDATIONS: Continue broad-spectrum antibiotics. Off Levophed. The patient is to continue atorvastatin. Probably dialysis today, we will get 1 unit of packed RBC during the dialysis. No evidence of acute MA. Later on for risk stratification, consider stress test as outpatient when the patient recovers. We will follow with you. We will give 2 units actually of RBC during transfusion. We will keep hemoglobin around 10. The patient has significant coronary artery disease, suggested to keep the hemoglobin at 10. Please transfuse 2 units of packed RBCs during dialysis. Also put the ordering physician . We will follow with you. We will repeat CBC in the morning. Thank you Dr. Zhu for providing us the opportunity in taking care of the patient, Ashley Mallory. Stephanie Anton MD [facility] # [id number]
--- NOTE | 2018-03-19 14:39 | PN ---
DATE: 03/19/2018 SUBJECTIVE: The patient is seen earlier this morning in the unit 128, bed 7, comfortable. No fevers and no chills. PHYSICAL EXAMINATION: GENERAL: She is weak, responsive on exam. VITAL SIGNS: Temperature is 98, blood pressure is 134/60, respiratory rate of 18, heart rate of 97. Examination of HEENT is unremarkable. NECK: Supple. LUNGS: Have decreased breath sounds. HEART: Normal S1, S2. ABDOMEN: Soft. LABORATORY DATA: Reveals a white count of 24,000, hemoglobin of 7, platelets of 248,000. Chemistries reveal a BUN of 42, creatinine of 3.6. Urinalysis is noted and serology is reviewed. Microbiology reveals that blood cultures are positive with sensitive Staph aureus and foot culture is positive for Staph sensitive aureus. Repeat blood cultures are negative. The patient is currently on meropenem. ASSESSMENT AND PLAN: A 57-year-old female with chronic obstructive lung disease, obesity, fibromyalgia, recurrent urinary tract infection, restless legs syndrome, hypertension, chronic congestive heart failure, diabetes, diabetic neuropathy, endometriosis, Charcot's foot, cellulitis admitted with septic shock with a sensitive Staph aureus bacteremia with a sensitive Staph aureus from the foot abscess, status post incision and drainage in setting of acute kidney injury on top of chronic kidney injury in a patient with chronic obstructive lung disease, congestive heart failure, pneumonia, hypertension, diabetes and diabetic neuropathy, currently on meropenem. This patient is allergic to ceftaroline. Terrance Kent MD
--- NOTE | 2018-03-19 15:07 | PN ---
DATE: 03/19/2018 SUBJECTIVE: The patient is currently seen lying comfortable in bed in ICU bed 7. She had dialysis on 03/17/2018 and 03/18/2018. She appears to be hemodynamically stable. She is not requiring any medications for blood pressures support. The patient will likely be transferred out of the ICU later today. Her hemoglobin remains stable but low. There was some question about a third day of straight dialysis with transfusions. MEDICATIONS: Medication list reviewed. The patient is currently on aspirin, Clorpactin, DuoNeb, Luvox, Incruse Ellipta, insulin, Levophed has been discontinued, Lipitor on hold, meropenem, Pamelor, Plavix, Protonix, Seroquel, Silvadene, Singulair, Tylenol, Zanaflex and Zyloprim. OBJECTIVE: INTAKE/OUTPUT: Intake is 725 mL and output is 1680 mL, 1000 mL with dialysis and 680 mL of urine. VITAL SIGNS: Blood pressure 109/61, pulse of 93, temperature is 98.3, respiratory rate is 20 with an oxygen saturation of 100%. HEENT: Shows her to be normocephalic and atraumatic. Conjunctivae are pale. Sclerae are nonicteric. NECK: Supple. No neck vein distention. CHEST: Clear to auscultation and percussion with decreased breath sounds at the bases. CARDIOVASCULAR: Shows a regular rate and rhythm with MR/TR. No S3, no S4, no rub. ABDOMEN: Soft. Bowel sounds normal. No rebound, guarding or masses. EXTREMITIES: Show dressing over her left foot in the area of a previous I and D of her abscess. Right foot shows ischemic changes of the toes. Diminished lower extremity pulses bilaterally. NEURO: Shows her to be alert and oriented with no gross focal motor or sensory deficits noted. LABORATORY DATA AND IMAGING STUDIES: CBC; white blood cell count down to 24.2, hemoglobin is low at 7.0 with platelet count of 258,000. Blood gas today showed a pH of 7.318, pO2 of 79, pCO2 of 43 and a bicarbonate level of 22. Chemistries today showed normal electrolytes, CO2 was 24 with potassium of 4.1, BUN 42 with a creatinine of 3.6. Glucose is 168. Calcium is 8.4. Last phosphorus level was 8.0 with a magnesium level of 1.7. Microbiology; left foot cultures are positive for Staphylococcus aureus. Blood cultures are positive for Staphylococcus aureus. Renal ultrasound done over the weekend showed cortical thinning with no obstructive uropathy. MRI of her foot showed cellulitis with an abscess and diffuse edema; no evidence of osteomyelitis and no evidence of fracture. ASSESSMENT: Sepsis with septic shock, resolved. The patient appears to be hemodynamically stable. She is off pressors. The patient had two acute dialysis treatments for severe oligoanuria with severe hyperkalemia and metabolic acidosis. She appears to be making urine today. Her BUN appear to be trending downward on their own. I will not dialyze her today. Of note, the patient is severely anemic and from my standpoint, she could receive 1 unit of packed red blood cells today. Further decisions regarding dialysis will be made tomorrow pending her BUN and creatinine, urine output and her metabolic profile. Status post incision and drainage of an abscess of her left lower extremity with cellulitis. No evidence for osteomyelitis. Wound cultures and blood cultures are positive for Staphylococcus aureus, methicillin-susceptible Staphylococcus aureus. The patient will continue on antibiotic therapy with local daily wound care by Podiatry. Past history of chronic kidney disease stage III, likely secondary to longstanding diabetes and hypertension. Of note, the patient does have cortical thinning on ultrasound. History of insulin-dependent diabetes mellitus. Hemoglobin A1c is 8.2%. The patient will continue on insulin. Status post life-threatening hyperkalemia. History of severe anemia in part secondary to chronic kidney disease in part secondary to sepsis and incision and drainage with possible bleeding. Iron saturations are 38%. The patient will receive Aranesp subcutaneous on a weekly basis. History of left ventricular hypertrophy with mitral regurgitation/tricuspid regurgitation, ejection fraction 60% and history of pulmonary hypertension, all stable. Past history of chronic obstructive pulmonary disease secondary to cigarette smoking in the past. History of hyperphosphatemia / secondary hyperparathyroidism. The patient will be placed on binder therapy and continue a renal diet. PLAN: No dialysis for today. Further decisions regarding dialysis pending blood work on 03/20/2018. This was discussed with the renal nurse, the ICU house staff and the RN taking care of the patient in the ICU. The patient may receive a blood transfusion from my standpoint as her potassium level is controlled and I am not worried about hyperkalemia or volume overload. Start Aranesp. Iron saturations are adequate at 38%. Continue antibiotic therapy and local wound care. Continue sliding scale insulin with optimization of her glucose control. Start the patient on binder therapy in light of her elevated phosphorus level and the patient should be maintained on a renal diet. As long as the patient remains hemodynamically stable through the day, I am okay with transfer out of the ICU to telemetry. Greater than 35 minutes spent the care of this patient. Brent Sheth MD MTDD
[2018-03-19] MEDS: Oxychlorosene Topical 2 gm Packet TOP SCH (15:26)
[2018-03-19] MEDS: Silver Sulfadiazine 1% Cream (25 gm) TP SCH (18:25)
--- NOTE | 2018-03-19 20:12 | PN ---
DATE: 03/19/2018 SUBJECTIVE: The patient is a 57-year-old, seen and examined, complained of decreased appetite and more awake and alert. PHYSICAL EXAMINATION: VITAL SIGNS: She is afebrile, pulse 96, respirations 20, and blood pressure 133/73. LUNGS: Bilateral fair airflow. No rhonchi or crackle. HEART: S1 and S2 audible. ABDOMEN: Soft, obese, and nontender. No rebound. No guarding. EXTREMITIES: Bilateral legs, +1 edema. NEUROLOGIC: She is awake and alert, but sleepy and answered appropriately. LABORATORY DATA: WBC 24.2, hemoglobin 7, hematocrit 21, and platelets 258,000. Chemistry: Sodium 136, potassium 4.1, chloride 100, CO2 of 24, BUN 42, creatinine 3.6, and blood sugar of 168. AST 125 and ALT 62. Her repeat blood cultures are negative. ASSESSMENT: 1. Staphylococcus aureus bacteremia. 2. Staphylococcus aureus wound infection. 3. Acute on chronic renal failure. 4. Hypertension. 5. Hyperlipidemia. 6. Insulin-dependent diabetes. 7. Acute on chronic renal failure, status post hemodialysis clinically doing better. PLAN: She will receive blood transfusion today. Continue nebulizer treatment. Monitor blood sugar. Currently, the patient is on meropenem and Podiatry is following the wound. We will follow up her electrolytes and CBC in a.m. Colt Zhu MD
[2018-03-19] MEDS: Insulin Detemir 100 units/ml Vial (Levemir) SC SCH (22:17)
[2018-03-19] MEDS: QUEtiapine 50 mg XR Tab PO SCH (22:18)
[2018-03-20] MEDS: Albuterol-Ipratrop 3 mg / 0.5 (3 ml) UD IH SCH ×5 (01:47→23:31)
[2018-03-20 07:13] LABS: BASO # 0.01 K/mm3 (0.0-2.0); BASO % 0.1 % (0.0-3.0); EOS # 0.2 (0.0-0.7); EOS % 1.4 % (1.5-5.0); GRAN # 14.1 (1.4-6.5); GRAN % 84.7 % (50.0-68.0); HEMOGLOBIN 7.7 g/dL (12.0-16.0); LYMPH # 1.2 (1.2-3.4); LYMPH % 7.3 % (22.0-35.0); MEAN CELL VOLUME 84.4 fl (80.0-105.0); MEAN CORPUSCULAR HGB CONC 33.2 g/dl (31.0-37.0); MEAN PLATELET VOLUME 9.3 fl (7.0-11.0); MONO # 1.1 (0.1-0.6); MONO % 6.5 % (1.0-6.0); RBC 2.75 10^6/uL (3.5-6.1); RED CELL DISTRIBUTION WIDTH 16.6 % (11.5-14.5); WHITE BLOOD COUNT 16.7 10^3/uL (4.5-11.0)
[2018-03-20 07:45] LABS: ALB/GLOB RATIO 0.7 (1.1-1.8); ALBUMIN 2.5 g/dL (3.0-4.8); CALCIUM 8.7 mg/dL (8.4-10.5)
--- NOTE | 2018-03-20 07:57 | CP.PCM.PN ---
Subjective - Date & Time of Evaluation Date of Evaluation: 03/20/18 Time of Evaluation: 06:45 - Subjective Subjective: Awake, alert, no distress Reason for consultation and follow up: Cardiac evaluation of coronary artery disease, post op follow up of I7D of left foot abscess Seen and examined by me and Dr. Anton Objective - Vital Signs/Intake and Output Vital Signs (last 24 hours): Temp Pulse Resp BP Pulse Ox 97.9 F 95 H 20 133/73 97 03/19/18 17:21 03/20/18 05:37 03/19/18 17:21 03/19/18 17:21 03/19/18 17:21 Intake and Output: 03/20/18 03/20/18 06:59 18:59 Intake Total 375 Output Total 1300 Balance -925 - Medications Medications: Current Medications Acetaminophen (Tylenol 325mg Tab) 650 mg PO Q6H PRN PRN Reason: Pain, moderate (4-7) Last Admin: 03/15/18 18:14 Dose: 650 mg Albuterol/Ipratropium (Duoneb 3 Mg/0.5 Mg (3 Ml) Ud) 3 ml IH Q6H [facility] Last Admin: 03/20/18 07:32 Dose: 3 ml Allopurinol (Zyloprim) 100 mg PO DAILY [facility] Last Admin: 03/19/18 09:09 Dose: 100 mg Atorvastatin Calcium (Lipitor) 20 mg PO DAILY [facility] Last Admin: 03/18/18 09:50 Dose: 20 mg Calcium Acetate (Phoslo) 667 mg PO WM [facility] Last Admin: 03/19/18 18:25 Dose: 667 mg Clopidogrel Bisulfate (Plavix) 75 mg PO DAILY [facility] Last Admin: 03/19/18 09:23 Dose: Not Given Darbepoetin Manjit (Aranesp) 100 mcg SC ONCE ONE Stop: 03/20/18 10:01 Meropenem/Sodium Chloride (Merrem Iv 500 Mg/Ns 50 Ml) 500 mg in 50 mls @ 100 mls/hr IVPB Q12 [facility]; Protocol Stop: 03/23/18 22:01 Last Admin: 03/19/18 22:18 Dose: 100 mls/hr Insulin Detemir (Levemir) 20 unit SC HS [facility] Last Admin: 03/19/18 22:17 Dose: 20 unit Insulin Human Lispro (Humalog Med) 0 units SC ACHS [facility] Last Admin: 03/19/18 22:19 Dose: Not Given Montelukast Sodium (Singulair) 10 mg PO [facility] Last Admin: 03/19/18 22:18 Dose: 10 mg Home Med - Fluvoxamine [Luvox] 25 Mg 25 mg PO BID [facility] Last Admin: 03/19/18 18:25 Dose: Not Given Home Med - Umeclidinium Waldron [Incruse Ellipta] 1 Puff 1 puff IH [facility] Last Admin: 03/18/18 22:57 Dose: Not Given Nortriptyline HCl (Pamelor) 50 mg PO [facility] Last Admin: 03/19/18 22:18 Dose: 50 mg Oxychlorosene Sodium (Clorpactin Wcs-90) 2 gm TOP Q12 [facility] Last Admin: 03/19/18 15:26 Dose: 2 gm Oxymetazoline HCl (Afrin 0.05%) 0 ml NS TID [facility] Last Admin: 03/19/18 18:47 Dose: Not Given Pantoprazole Sodium (Protonix Ec Tab) 20 mg PO ACB [facility] Last Admin: 03/19/18 08:09 Dose: 20 mg Quetiapine Fumarate (Seroquel Xr) 100 mg PO [facility]; Protocol Last Admin: 03/19/18 22:18 Dose: 100 mg Silver Sulfadiazine (Silvadene 1% 25 Gm) 1 gm TP BID [facility] Last Admin: 03/19/18 18:25 Dose: Not Given Tizanidine HCl (Zanaflex) 2 mg PO Q6 [facility] Last Admin: 03/20/18 05:59 Dose: 2 mg - Labs Labs: 03/20/18 06:35 03/20/18 06:35 PT 19.4 SECONDS (9.4-12.5) H 03/14/18 17:00 INR 1.68 03/14/18 17:00 APTT 37.4 Seconds (25.1-36.5) H 03/14/18 17:00 - Constitutional Appears: Non-toxic, No Acute Distress - Head Exam Head Exam: NORMAL INSPECTION, NORMOCEPHALIC - Eye Exam Eye Exam: Normal appearance Pupil Exam: NORMAL ACCOMODATION - ENT Exam ENT Exam: Mucous Membranes Moist, Normal Exam - Respiratory Exam Respiratory Exam: Clear to Ausculation Bilateral, NORMAL BREATHING PATTERN - Cardiovascular Exam Cardiovascular Exam: +S1, +S2 - GI/Abdominal Exam GI & Abdominal Exam: Soft, Normal Bowel Sounds - Extremities Exam Additional comments: left foot dressing intact - Neurological Exam Neurological Exam: Alert, Awake, Oriented x3 - Psychiatric Exam Psychiatric exam: Normal Affect, Normal Mood - Skin Skin Exam: Dry, Normal Color, Warm Assessment and Plan - Assessment and Plan (Free Text) Assessment: A 57 year old female who came in to the ER due to left foot swelling. History of coronary artery disease post stents on 02/2013. COPD, obesity, fibromyalgia, HTN, CHF, DM, Diabetic neuropathy, Charcot foot, kidney disease, endometriosis, cellulitis of lower extremities. ESRD on hemodialysis. Had I & D of left foot. Wound positive for Staphyloccoccus aureaus. On IV antibiotics, on contact isolation. Plan: Post blood transfusion with hemodialysis for low H/H Repeat H/H 7.7/23.2 Moore catheter reinserted due to urinary retention Denies chest pain or shortness of breath Stable heart rate Controlled blood pressure Cardiac status stable Continue antibiotics as per ID Continue current treatment Continue current medications chart reviewed Will follow up Plan and treatment discussed with Dr. Anton
[2018-03-20] MEDS ORDERED: Darbepoetin Alfa 100 mcg/ml Inj SC ONE (10:00)
[2018-03-20] MEDS: Insulin Lispro (humaLOG) MEDIUM Coverage SC SCH ×4 (10:52→22:04)
[2018-03-20] MEDS: FLUVOXAMINE 25 MG PO SCH ×2 (10:52→18:12)
[2018-03-20] MEDS: MEROPENEM 500 MG in NS 500 MG/50 ML BAG IVPB SCH ×3 (10:53→22:34)
[2018-03-20] MEDS: Silver Sulfadiazine 1% Cream (25 gm) TP SCH (10:54)
[2018-03-20] MEDS: Pantoprazole 20 mg EC Tab PO SCH (10:56)
[2018-03-20] MEDS: Oxymetazoline 0.05% Nasal Spray (30 ml) NS SCH ×3 (11:01→18:14)
[2018-03-20] MEDS: Oxychlorosene Topical 2 gm Packet TOP SCH ×2 (11:02→22:34)
--- NOTE | 2018-03-20 11:16 | CP.PCM.PN ---
<Gris Avalos - Last Filed: 03/20/18 13:17> Subjective - Date & Time of Evaluation Date of Evaluation: 03/20/18 Time of Evaluation: 11:10 - Subjective Subjective: Podiatry progress note for attending Dr. Bills 57 y/o female was seen and evaluated at bedside. Patient has been moved out of ICU, and is currently alert, oriented X3. Patient reports feeling much better and states she has also been eating. Patient dressing was intact, with strike- through noted. No significant events overnight. Objective - Vital Signs/Intake and Output Vital Signs (last 24 hours): Temp Pulse Resp BP Pulse Ox 98.2 F 98 H 20 138/78 95 03/20/18 07:00 03/20/18 10:50 03/20/18 07:00 03/20/18 10:50 03/20/18 07:00 Intake and Output: 03/20/18 03/20/18 06:59 18:59 Intake Total 375 Output Total 1300 Balance -925 - Medications Medications: Current Medications Acetaminophen (Tylenol 325mg Tab) 650 mg PO Q6H PRN PRN Reason: Pain, moderate (4-7) Last Admin: 03/15/18 18:14 Dose: 650 mg Albuterol/Ipratropium (Duoneb 3 Mg/0.5 Mg (3 Ml) Ud) 3 ml IH Q6H [facility] Last Admin: 03/20/18 07:32 Dose: 3 ml Allopurinol (Zyloprim) 100 mg PO DAILY [facility] Last Admin: 03/20/18 10:51 Dose: 100 mg Atorvastatin Calcium (Lipitor) 20 mg PO DAILY [facility] Last Admin: 03/18/18 09:50 Dose: 20 mg Calcium Acetate (Phoslo) 667 mg PO WM [facility] Last Admin: 03/20/18 10:51 Dose: 667 mg Clopidogrel Bisulfate (Plavix) 75 mg PO DAILY [facility] Last Admin: 03/20/18 10:51 Dose: 75 mg Meropenem/Sodium Chloride (Merrem Iv 500 Mg/Ns 50 Ml) 500 mg in 50 mls @ 100 mls/hr IVPB Q12 [facility]; Protocol Stop: 03/23/18 22:01 Last Admin: 03/20/18 10:53 Dose: 100 mls/hr Insulin Detemir (Levemir) 20 unit SC HS [facility] Last Admin: 03/19/18 22:17 Dose: 20 unit Insulin Human Lispro (Humalog Med) 0 units SC ACHS [facility] Last Admin: 03/20/18 10:52 Dose: Not Given Metoprolol Tartrate (Lopressor) 25 mg PO BID [facility] Last Admin: 03/20/18 10:50 Dose: 25 mg Montelukast Sodium (Singulair) 10 mg PO [facility] Last Admin: 03/19/18 22:18 Dose: 10 mg Home Med - Fluvoxamine [Luvox] 25 Mg 25 mg PO BID [facility] Last Admin: 03/20/18 10:52 Dose: Not Given Home Med - Umeclidinium [place] [Incruse Ellipta] 1 Puff 1 puff IH [facility] Last Admin: 03/18/18 22:57 Dose: Not Given Nortriptyline HCl (Pamelor) 50 mg PO [facility] Last Admin: 03/19/18 22:18 Dose: 50 mg Oxychlorosene Sodium (Clorpactin Wcs-90) 2 gm TOP Q12 [facility] Last Admin: 03/20/18 11:02 Dose: 2 gm Oxymetazoline HCl (Afrin 0.05%) 0 ml NS TID [facility] Last Admin: 03/20/18 11:01 Dose: 2 spray Pantoprazole Sodium (Protonix Ec Tab) 20 mg PO ACB [facility] Last Admin: 03/20/18 10:56 Dose: 20 mg Quetiapine Fumarate (Seroquel Xr) 100 mg PO [facility]; Protocol Last Admin: 03/19/18 22:18 Dose: 100 mg Silver Sulfadiazine (Silvadene 1% 25 Gm) 1 gm TP BID [facility] Last Admin: 03/20/18 10:54 Dose: 1 gm Tizanidine HCl (Zanaflex) 2 mg PO Q6 [facility] Last Admin: 03/20/18 05:59 Dose: 2 mg - Labs Labs: 03/20/18 06:35 03/20/18 06:35 PT 19.4 SECONDS (9.4-12.5) H 03/14/18 17:00 INR 1.68 03/14/18 17:00 APTT 37.4 Seconds (25.1-36.5) H 03/14/18 17:00 - Constitutional Appears: Well, Non-toxic, No Acute Distress - Head Exam Head Exam: ATRAUMATIC, NORMOCEPHALIC - Extremities Exam Additional comments: Bilateral Lower Extremity Exam VASC: palpable pedal pulses, TG warm to warm bilaterally, edema noted to all the digits with soupy, non-viable mottled tissue DERM: soupy, macerated, mottled, non-viable tissue noted to all the digits to the level of the metatarsals, surgical incision sites to the left foot dorsally, laterally and plantarly are full thickness with granular tissue present, blister formation noted to the anterior ankle with positive drainage, minimal active bleeding noted, no malodor, large incision noted plantarly with devitalized tissue Right foot, stable ulceration noted to the tip of the 2nd digit - Neurological Exam Neurological Exam: Alert, Awake, Oriented x3 - Psychiatric Exam Psychiatric exam: Normal Affect, Normal Mood Assessment and Plan - Assessment and Plan (Free Text) Assessment: 57 y/o female patient 4 days status post incision and drainage of the left foot secondary to diabetic foot abscess, causing compartment-like clinical symptoms Plan: Patient seen and evaluated at bedside with Dr. Bills Plan discussed with attending Chart, labs and vitals were reviewed- afebrile, positive leukocytosis trending down to 16.7 Patient dressings were changed with sterile instruments Wound was flushed with Clorpactin sterile saline solution All wounds were packed with 0.25 inch packing, non-iodoform Wounds were then dressed with gauze, ABD and Kerlix No compression has been applied at this time Patient likely to undergo Hyperbaric Oxygen Treatment to salvage the proximal foot, transmetatarsal amputation will be performed at a later date Podiatry will carefully continue to monitor the patient <Guillermina Bills - Last Filed: 03/21/18 07:49> Objective - Vital Signs/Intake and Output Vital Signs (last 24 hours): Temp Pulse Resp BP Pulse Ox 98.8 F 86 19 135/75 93 L 03/20/18 17:37 03/21/18 05:40 03/20/18 17:37 03/20/18 18:13 03/20/18 17:37 - Medications Medications: Current Medications Acetaminophen (Tylenol 325mg Tab) 650 mg PO Q6H PRN PRN Reason: Pain, moderate (4-7) Last Admin: 03/21/18 03:06 Dose: 650 mg Albuterol/Ipratropium (Duoneb 3 Mg/0.5 Mg (3 Ml) Ud) 3 ml IH Q6H [facility] Last Admin: 03/21/18 07:27 Dose: 3 ml Allopurinol (Zyloprim) 100 mg PO DAILY [facility] Last Admin: 03/20/18 10:51 Dose: 100 mg Atorvastatin Calcium (Lipitor) 20 mg PO DAILY [facility] Last Admin: 03/18/18 09:50 Dose: 20 mg Calcium Acetate (Phoslo) 667 mg PO WM [facility] Last Admin: 03/20/18 18:13 Dose: 667 mg Clopidogrel Bisulfate (Plavix) 75 mg PO DAILY [facility] Last Admin: 03/20/18 10:51 Dose: 75 mg Meropenem/Sodium Chloride (Merrem Iv 500 Mg/Ns 50 Ml) 500 mg in 50 mls @ 100 mls/hr IVPB Q12 [facility]; Protocol Stop: 03/23/18 22:01 Last Admin: 03/20/18 22:34 Dose: 100 mls/hr Insulin Detemir (Levemir) 20 unit SC [facility] Last Admin: 03/20/18 22:33 Dose: 20 unit Insulin Human Lispro (Humalog Med) 0 units SC ACHS [facility] Last Admin: 03/20/18 22:04 Dose: Not Given Metoprolol Tartrate (Lopressor) 25 mg PO BID [facility] Last Admin: 03/20/18 18:13 Dose: 25 mg Montelukast Sodium (Singulair) 10 mg PO [facility] Last Admin: 03/20/18 22:33 Dose: 10 mg Home Med - Fluvoxamine [Luvox] 25 Mg 25 mg PO BID [facility] Last Admin: 03/20/18 18:12 Dose: Not Given Home Med - Umeclidinium [place] [Incruse Ellipta] 1 Puff 1 puff IH [facility] Last Admin: 03/18/18 22:57 Dose: Not Given Nortriptyline HCl (Pamelor) 50 mg PO [facility] Last Admin: 03/20/18 22:33 Dose: 50 mg Oxychlorosene Sodium (Clorpactin Wcs-90) 2 gm TOP Q12 [facility] Last Admin: 03/20/18 22:34 Dose: 2 gm Oxymetazoline HCl (Afrin 0.05%) 0 ml NS TID [facility] Last Admin: 03/20/18 18:14 Dose: 2 spray Pantoprazole Sodium (Protonix Ec Tab) 20 mg PO ACB [facility] Last Admin: 03/20/18 10:56 Dose: 20 mg Quetiapine Fumarate (Seroquel Xr) 100 mg PO HS [facility]; Protocol Last Admin: 03/20/18 22:32 Dose: 100 mg Silver Sulfadiazine (Silvadene 1% 25 Gm) 1 gm TP BID [facility] Last Admin: 03/20/18 10:54 Dose: 1 gm Tizanidine HCl (Zanaflex) 2 mg PO Q6 [facility] Last Admin: 03/21/18 05:06 Dose: 2 mg - Labs Labs: 03/21/18 06:30 03/21/18 06:30 PT 25.0 SECONDS (9.4-12.5) H 03/21/18 00:23 INR 2.16 03/21/18 00:23 APTT 35.8 Seconds (25.1-36.5) 03/21/18 00:23 Attending/Attestation - Attestation I have personally seen and examined this patient.: Yes I have fully participated in the care of the patient.: Yes I have reviewed all pertinent clinical information, including history, physical exam and plan: Yes Notes (Text): 03/21/18 07:47 pt seen for gangrenous changes to left foot; still not demarcated at this time; pt seen and cleared by Dr Gonzales for HBO treatment today; the goal of this treatment wound be to demarcate the foot so that a foot salvage procedure can be done. Otherwise, pt will require BKA
--- NOTE | 2018-03-20 12:35 | PN ---
DATE: 03/20/2018 HYPERBARIC CLEARANCE NOTE SUBJECTIVE: Ms. Mallory is an is a 57-year-old diabetic who was admitted with a severe left foot infection that required surgical drainage. Her wound is still cyanotic and ischemic looking. She has a history of a left Charcot joint. She relates the infection to her left foot brace. She has been evaluated by the wound care center and is considered a candidate for hyperbaric therapy. PAST MEDICAL HISTORY: Significant for asthma, obesity, fibromyalgia and diabetic neuropathy with a Charcot foot. ALLERGIES: SHE IS ALLERGIC TO THEOPHYLLINE. Her femoral and popliteal pulses are normal. Her skin is warm to the ankle. The foot is wrapped. The forefoot is cyanotic. OBJECTIVE: HEART: She is in a regular rate and rhythm. LUNGS: Clear. She is breathing comfortably. She has no history of pneumothorax or significant pulmonary issues other than the asthma. Chest x-ray is unremarkable. IMPRESSION: The patient is cleared for hyperbaric treatment. Justin Gonzales MD MTDD
--- NOTE | 2018-03-20 13:57 | CP.PCM.PN ---
<Larry Thomas - Last Filed: 03/20/18 13:53> Subjective - Date & Time of Evaluation Date of Evaluation: 03/20/18 Time of Evaluation: 09:20 - Subjective Subjective: Infectious disease progress note for Dr. Peacock/Dr. Kent service - Edilberto Thomas PGY3 Patient seen and examined at bedside this morning. No acute overnight events or new complaints were reported. Denies chest pain, palpitations, SOB. Presently on meropenem. Objective - Vital Signs/Intake and Output Vital Signs (last 24 hours): Temp Pulse Resp BP Pulse Ox 98.2 F 98 H 20 138/78 95 03/20/18 07:00 03/20/18 10:50 03/20/18 07:00 03/20/18 10:50 03/20/18 07:00 Intake and Output: 03/20/18 03/20/18 06:59 18:59 Intake Total 375 Output Total 1300 450 Balance -925 -450 - Medications Medications: Current Medications Acetaminophen (Tylenol 325mg Tab) 650 mg PO Q6H PRN PRN Reason: Pain, moderate (4-7) Last Admin: 03/15/18 18:14 Dose: 650 mg Albuterol/Ipratropium (Duoneb 3 Mg/0.5 Mg (3 Ml) Ud) 3 ml IH Q6H [facility] Last Admin: 03/20/18 13:35 Dose: 3 ml Allopurinol (Zyloprim) 100 mg PO DAILY [facility] Last Admin: 03/20/18 10:51 Dose: 100 mg Atorvastatin Calcium (Lipitor) 20 mg PO DAILY [facility] Last Admin: 03/18/18 09:50 Dose: 20 mg Calcium Acetate (Phoslo) 667 mg PO WM [facility] Last Admin: 03/20/18 10:51 Dose: 667 mg Clopidogrel Bisulfate (Plavix) 75 mg PO DAILY [facility] Last Admin: 03/20/18 10:51 Dose: 75 mg Meropenem/Sodium Chloride (Merrem Iv 500 Mg/Ns 50 Ml) 500 mg in 50 mls @ 100 mls/hr IVPB Q12 [facility]; Protocol Stop: 03/23/18 22:01 Last Admin: 03/20/18 10:53 Dose: 100 mls/hr Insulin Detemir (Levemir) 20 unit SC HS [facility] Last Admin: 03/19/18 22:17 Dose: 20 unit Insulin Human Lispro (Humalog Med) 0 units SC ACHS [facility] Last Admin: 03/20/18 10:52 Dose: Not Given Metoprolol Tartrate (Lopressor) 25 mg PO BID [facility] Last Admin: 03/20/18 10:50 Dose: 25 mg Montelukast Sodium (Singulair) 10 mg PO [facility] Last Admin: 03/19/18 22:18 Dose: 10 mg Home Med - Fluvoxamine [Luvox] 25 Mg 25 mg PO BID [facility] Last Admin: 03/20/18 10:52 Dose: Not Given Home Med - Umeclidinium [place] [Incruse Ellipta] 1 Puff 1 puff IH [facility] Last Admin: 03/18/18 22:57 Dose: Not Given Nortriptyline HCl (Pamelor) 50 mg PO [facility] Last Admin: 03/19/18 22:18 Dose: 50 mg Oxychlorosene Sodium (Clorpactin Wcs-90) 2 gm TOP Q12 [facility] Last Admin: 03/20/18 11:02 Dose: 2 gm Oxymetazoline HCl (Afrin 0.05%) 0 ml NS TID [facility] Last Admin: 03/20/18 11:01 Dose: 2 spray Pantoprazole Sodium (Protonix Ec Tab) 20 mg PO ACB [facility] Last Admin: 03/20/18 10:56 Dose: 20 mg Quetiapine Fumarate (Seroquel Xr) 100 mg PO [facility]; Protocol Last Admin: 03/19/18 22:18 Dose: 100 mg Silver Sulfadiazine (Silvadene 1% 25 Gm) 1 gm TP BID [facility] Last Admin: 03/20/18 10:54 Dose: 1 gm Tizanidine HCl (Zanaflex) 2 mg PO Q6 [facility] Last Admin: 03/20/18 05:59 Dose: 2 mg - Labs Labs: 03/20/18 06:35 03/20/18 06:35 PT 19.4 SECONDS (9.4-12.5) H 03/14/18 17:00 INR 1.68 03/14/18 17:00 APTT 37.4 Seconds (25.1-36.5) H 03/14/18 17:00 Assessment and Plan - Assessment and Plan (Free Text) Plan: 57yo female with history of COPD, obesity, fibromyalgia, recurrent UTI, restless leg syndrome, HTN, chronic CHF, DM, diabetic neuropathy, CKD, endometriosis, charcot foot and cellulitis of LE admitted for septic shock secondary to staph aureus bacteremia and staph aureus foot abscess s/p I&D in the setting of acute kidney injury. 1. Severe sepsis secondary to staph aureus bacteremia 2. Septic shock now resolved 3. Staph aureus left foot abscess s/p I&D 4. JAMIL on CKD 5. COPD, chronic 6. CHF, chronic 7. Normocytic anemia 8. Hx of hypertension 9. Diabetes mellitus type 2 10. Diabetic neuropathy 11. Anemia -Patient will require at least 4 weeks of Meropenem -Repeat blood cultures negative after 48hrs -Foot MRI reviewed; no apparent evidence of osteomyelitis -Echocardiogram revealed no apparent thrombus; LVEF 59%; see full report -F/u recommendations by podiatry Patient seen and case discussed/reviewed with attending, Dr. Peacock <Jan Peacock - Last Filed: 03/20/18 17:02> Objective - Vital Signs/Intake and Output Vital Signs (last 24 hours): Temp Pulse Resp BP Pulse Ox 98.2 F 98 H 20 138/78 95 03/20/18 07:00 03/20/18 10:50 03/20/18 07:00 03/20/18 10:50 03/20/18 07:00 Intake and Output: 03/20/18 03/20/18 06:59 18:59 Intake Total 375 Output Total 1300 450 Balance -925 -450 - Medications Medications: Current Medications Acetaminophen (Tylenol 325mg Tab) 650 mg PO Q6H PRN PRN Reason: Pain, moderate (4-7) Last Admin: 03/15/18 18:14 Dose: 650 mg Albuterol/Ipratropium (Duoneb 3 Mg/0.5 Mg (3 Ml) Ud) 3 ml IH Q6H [facility] Last Admin: 03/20/18 13:35 Dose: 3 ml Allopurinol (Zyloprim) 100 mg PO DAILY [facility] Last Admin: 03/20/18 10:51 Dose: 100 mg Atorvastatin Calcium (Lipitor) 20 mg PO DAILY [facility] Last Admin: 03/18/18 09:50 Dose: 20 mg Calcium Acetate (Phoslo) 667 mg PO WM [facility] Last Admin: 03/20/18 16:19 Dose: Not Given Clopidogrel Bisulfate (Plavix) 75 mg PO DAILY [facility] Last Admin: 03/20/18 10:51 Dose: 75 mg Meropenem/Sodium Chloride (Merrem Iv 500 Mg/Ns 50 Ml) 500 mg in 50 mls @ 100 mls/hr IVPB Q12 [facility]; Protocol Stop: 03/23/18 22:01 Last Admin: 03/20/18 10:53 Dose: 100 mls/hr Insulin Detemir (Levemir) 20 unit SC [facility] Last Admin: 03/19/18 22:17 Dose: 20 unit Insulin Human Lispro (Humalog Med) 0 units SC ACHS [facility] Last Admin: 03/20/18 16:18 Dose: Not Given Metoprolol Tartrate (Lopressor) 25 mg PO BID [facility] Last Admin: 03/20/18 10:50 Dose: 25 mg Montelukast Sodium (Singulair) 10 mg PO [facility] Last Admin: 03/19/18 22:18 Dose: 10 mg Home Med - Fluvoxamine [Luvox] 25 Mg 25 mg PO BID [facility] Last Admin: 03/20/18 10:52 Dose: Not Given Home Med - Umeclidinium [place] [Incruse Ellipta] 1 Puff 1 puff IH [facility] Last Admin: 03/18/18 22:57 Dose: Not Given Nortriptyline HCl (Pamelor) 50 mg PO HS [facility] Last Admin: 03/19/18 22:18 Dose: 50 mg Oxychlorosene Sodium (Clorpactin Wcs-90) 2 gm TOP Q12 [facility] Last Admin: 03/20/18 11:02 Dose: 2 gm Oxymetazoline HCl (Afrin 0.05%) 0 ml NS TID [facility] Last Admin: 03/20/18 16:16 Dose: Not Given Pantoprazole Sodium (Protonix Ec Tab) 20 mg PO ACB [facility] Last Admin: 03/20/18 10:56 Dose: 20 mg Quetiapine Fumarate (Seroquel Xr) 100 mg PO HS [facility]; Protocol Last Admin: 03/19/18 22:18 Dose: 100 mg Silver Sulfadiazine (Silvadene 1% 25 Gm) 1 gm TP BID [facility] Last Admin: 03/20/18 10:54 Dose: 1 gm Tizanidine HCl (Zanaflex) 2 mg PO Q6 [facility] Last Admin: 03/20/18 16:19 Dose: Not Given - Labs Labs: 03/20/18 06:35 03/20/18 06:35 PT 19.4 SECONDS (9.4-12.5) H 03/14/18 17:00 INR 1.68 03/14/18 17:00 APTT 37.4 Seconds (25.1-36.5) H 03/14/18 17:00 Assessment and Plan - Assessment and Plan (Free Text) Plan: Infectious diseases Attending Physician Attestation Patient seen and examined, discussed with biomedical equipment specialist. I have reviewed the patient's history of present illness, past medical, social, personal and family histories, pertinent physical exam findings, course so far in this hospital admission, pertinent laboratory and imaging results. I agree with the above findings, assessment and plan. In addition, continue Merrem for this patient with sepsis from MSSA bacteremia from severe left foot skin and skin structure infection with necrosis. Follow up further plans of Podiatry. 2D echo is negative for vegetations. May need at least 4 weeks of antibiotics.
--- NOTE | 2018-03-20 14:23 | PN ---
DATE: 03/20/2018 SUBJECTIVE: The patient is a 57-year-old, seen and examined, much more awake, alert, oriented, able to communicate. PHYSICAL EXAMINATION VITAL SIGNS: The patient is afebrile, pulse 91, respirations 20, blood pressure 138/78. LUNGS: Bilateral fair airflow. No rhonchi or crackle. HEART: S1, S2 audible. ABDOMEN: Soft, nontender. No rebound, no guarding. NEUROLOGIC: The patient is awake, alert. Able to communicate. EXTREMITIES: Left foot is in the dressing. LABORATORY DATA: WBC 16.7, hemoglobin 7.7, hematocrit 23.2, platelet 233. Chemistry; sodium 138, potassium 3.6, chloride 100, CO2 of 29, BUN 51, creatinine 4.2, blood sugar 122. ASSESSMENT: 1. Status post Staphylococcus aureus bacteremia secondary to left foot infection, status post emergency incision and drainage. 2. Acute renal failure that has resolved. The patient received two dialysis, seems to be improving, putting out urine. 3. Insulin-dependent diabetes. 4. History of hypertension. 5. Acute on chronic anemia. PLAN: So, plan is currently, the patient is on nebulizer treatment. She is on meropenem. She will receive one pack RBCs. She is being prepped for hyperbaric treatment today. Colt Zhu MD
--- NOTE | 2018-03-20 14:48 | PN ---
DATE: 03/20/2018 REASON FOR CONSULTATION AND FOLLOWUP: Cardiac evaluation, history of coronary artery disease, admitted with septic shock, from the left foot abscess. This note is an addition to dictated by nurse practitioner, Liz Jiménez. SUBJECTIVE: The patient feels a lot better. History of coronary artery disease, status post stent in 2012, admitted this time with septic shock and abscess in the foot, status post I and D. The patient started on dialysis, stable. Yesterday, we gave two units of packed RBC during the dialysis. Today's hemoglobin is 7.7. WBC trending down to 16.7 from 30,000. No evidence of acute [place]. Continue broad-spectrum antibiotics. Continue close monitoring with Podiatry. Continue atorvastatin. Continue aspirin and Plavix. We will start low dose beta bev as blood pressure is tolerated. Initially, the patient came in with a septic shock and treated with Levophed, now patient is off Levophed on the floor, so we will start loading the beta-bev. We will follow with you. We will supplement electrolytes if needed. We will follow with you. The patient has had dialysis. Potassium 3.6, we will leave as it is. Thank you Dr. Zhu for providing us the opportunity in taking care of the patient, Mohamud Ramirez. Stephanie Anton MD
--- NOTE | 2018-03-20 15:11 | CP.PCM.PN ---
Subjective - Date & Time of Evaluation Date of Evaluation: 03/20/18 Time of Evaluation: 09:30 - Subjective Subjective: Care Coordination Note: Pt. seen and examined. Offers no complaints, tolerated diet, denied nausea/vomiting. Denied fever, chills, shortness of breath, chest pain. Overnight nurses notes reviewed. Vital signs reviewed. Lab Data reviewed. PE: Gen AAOx3, no acute distress. Head normocephalic, neck supple, no JVD. CV S1 S2 reg rate rhythm. GI-Abdomen soft, n/t, pos. bowel sounds, non tender, non/distended. - Moore draining clear yellow urine. Echo 03/17 showed no signs of bacterial vegetation. A/P: 57 yr. old female with pmh of COPD, Obesity, fibromyalgia, recurrent UTI, Htn, chronic CHF, DM, CKD, and cellulitis of LE admitted for septic shock secondary to Staph Aureus Bacteremia. 1. Severe sepsis secondary to staph aureus bactemia now resolved. 2. Staph Aureus Bacteremia , currently treated with Merrem as per ID, repeat blood cx show so far no growth. Per ID repeat echo end of the week to revaluate any vegetation. 3. Staph Aureus left foot abscess s/p I/D. Patient will receive Hyperbaric treatment as per Negar starting today.Pt. will need 4 weeks of IV Merrem as Per I.D. Midline insertion is pending. 4. Anemia- Hgb today 7.7 from 7.0 yesterday, post 2 units of PRBCs. Will receive 1 unit of Prbcs today and monitor cbc tommorow. 5. JAMIL on CKD, will monitor I's O's and follow/ trend Bun /creatinine. Pt eval is pending. Pt is s/p day 1 transfer from ICU, She will need IV antiobiotics as per ID , merrem for 4 weeks, midline insertion is pending. Anticipate plan for SEEMA vs. HOme infusion (if secondary coverage). Will continue to follow , continue to speak to consultants, physicians and monitor clinical status. Objective - Vital Signs/Intake and Output Vital Signs (last 24 hours): Temp Pulse Resp BP Pulse Ox 98.2 F 98 H 20 138/78 95 03/20/18 07:00 03/20/18 10:50 03/20/18 07:00 03/20/18 10:50 03/20/18 07:00 Intake and Output: 03/20/18 03/20/18 06:59 18:59 Intake Total 375 Output Total 1300 450 Balance -925 -450 - Medications Medications: Current Medications Acetaminophen (Tylenol 325mg Tab) 650 mg PO Q6H PRN PRN Reason: Pain, moderate (4-7) Last Admin: 03/15/18 18:14 Dose: 650 mg Albuterol/Ipratropium (Duoneb 3 Mg/0.5 Mg (3 Ml) Ud) 3 ml IH Q6H [facility] Last Admin: 03/20/18 13:35 Dose: 3 ml Allopurinol (Zyloprim) 100 mg PO DAILY [facility] Last Admin: 03/20/18 10:51 Dose: 100 mg Atorvastatin Calcium (Lipitor) 20 mg PO DAILY [facility] Last Admin: 03/18/18 09:50 Dose: 20 mg Calcium Acetate (Phoslo) 667 mg PO WM [facility] Last Admin: 03/20/18 10:51 Dose: 667 mg Clopidogrel Bisulfate (Plavix) 75 mg PO DAILY [facility] Last Admin: 03/20/18 10:51 Dose: 75 mg Meropenem/Sodium Chloride (Merrem Iv 500 Mg/Ns 50 Ml) 500 mg in 50 mls @ 100 mls/hr IVPB Q12 [facility]; Protocol Stop: 03/23/18 22:01 Last Admin: 03/20/18 10:53 Dose: 100 mls/hr Insulin Detemir (Levemir) [address] [facility] Last Admin: 03/19/18 22:17 Dose: 20 unit Insulin Human Lispro (Humalog Med) 0 units SC [facility] Last Admin: 03/20/18 10:52 Dose: Not Given Metoprolol Tartrate (Lopressor) 25 mg PO BID [facility] Last Admin: 03/20/18 10:50 Dose: 25 mg Montelukast Sodium (Singulair) [address] [facility] Last Admin: 03/19/18 22:18 Dose: 10 mg Home Med - Fluvoxamine [Luvox] 25 Mg 25 mg PO BID [facility] Last Admin: 03/20/18 10:52 Dose: Not Given Home Med - Umeclidinium [place] [Incruse Ellipta] [address] P[address] [facility] Last Admin: 11/26/18 22:57 Dose: Not Given Nortriptyline HCl (Pamelor) 50 mg PO HS [facility] Last Admin: 03/19/18 22:18 Dose: 50 mg Oxychlorosene Sodium (Clorpactin Wcs-90) 2 gm TOP Q12 [facility] Last Admin: 03/20/18 11:02 Dose: 2 gm Oxymetazoline HCl (Afrin 0.05%) 0 ml NS TID [facility] Last Admin: 03/20/18 11:01 Dose: 2 spray Pantoprazole Sodium (Protonix Ec Tab) 20 mg PO ACB [facility] Last Admin: 03/20/18 10:56 Dose: 20 mg Quetiapine Fumarate (Seroquel Xr) 100 mg PO HS [facility]; Protocol Last Admin: 03/19/18 22:18 Dose: 100 mg Silver Sulfadiazine (Silvadene 1% 25 Gm) 1 gm TP BID [facility] Last Admin: 03/20/18 10:54 Dose: 1 gm Tizanidine HCl (Zanaflex) 2 mg PO Q6 [facility] Last Admin: 03/20/18 05:59 Dose: 2 mg - Labs Labs: 03/20/18 06:35 03/20/18 06:35 PT 19.4 SECONDS (9.4-12.5) H 03/14/18 17:00 INR 1.68 03/14/18 17:00 APTT 37.4 Seconds (25.1-36.5) H 03/14/18 17:00
--- NOTE | 2018-03-20 20:17 | PN ---
DATE: 03/20/2018 SUBJECTIVE: The patient is seen sitting in bed. She is awake. She is alert. She is comfortable. She is oriented x3. She denies any chest pain. She denies any shortness of breath. PHYSICAL EXAMINATION: GENERAL: Middle-aged lady sitting in bed. VITAL SIGNS: Blood pressure 135/75, heart rate 78, respiratory rate 18-20, temperature 98.8. HEENT: Normocephalic, atraumatic, positive pallor. NECK: Supple, no JVD. LUNGS: Bilateral equal air entry, bilateral equal expansion. CARDIAC: S1 and S2, regular rate and rhythm, no murmur, no rub. ABDOMEN: Obese, distended, soft, nontender, bowel sounds present. EXTREMITIES: Dressing of the left foot, ecchymosis/blisters at the left forefoot. INTAKE AND OUTPUT: 800/1600. LABORATORY DATA: WBC 16.7, hemoglobin 7.7, hematocrit 23, platelets 233. Sodium 138, potassium 3.6, chloride 100, CO2 of 28, BUN 51, creatinine 4.2, glucose 122, calcium 8.7, phosphorus 8.5, magnesium 1.9. AST 84. Blood cultures, no growth from the 03/18/2018. Blood cultures, no growth from the 03/16/2018. Wound culture from the 03/16/2018, Staph aureus. Blood cultures from the 03/14/2018, Staph aureus. CURRENT MEDICATIONS: DuoNeb, insulin, Lipitor, Lopressor, meropenem 500 every 12 hours, Pamelor, PhosLo, Plavix, Protonix, Seroquel, Silvadene, Singulair, Tylenol, Zanaflex, and allopurinol. ASSESSMENT: 1. Severe sepsis, Staphylococcus wound infection, Staphylococcus abscess, Staphylococcus bacteremia. 2. Acute kidney injury superimposed on chronic kidney disease stage 3, nonoliguric. 3. Severe anemia. 4. Non-insulin dependent diabetes mellitus. 5. Hypertension. 6. Hyperphosphatemia/secondary hyperparathyroidism. PLAN: 1. The patient is now nonoliguric, she was dialyzed on Sunday and Sunday. She was not dialyzed yesterday. Her creatinine has risen from 3.6 to 4.2, no uremia right now. We will hold dialysis today. We will continue to monitor closely. 2. Continue antibiotics. 3. Continue wound care. 4. Monitor fingersticks and continue insulin. 5. Continue phosphate binders. Elva Frank MD
[2018-03-20] MEDS: QUEtiapine 50 mg XR Tab PO SCH (22:32)
[2018-03-20] MEDS: Insulin Detemir 100 units/ml Vial (Levemir) SC SCH (22:33)
[2018-03-21] MEDS ORDERED: Phytonadione 10 MG in Sodium Chloride 0.9% 50 ML IV ONE (00:05)
[2018-03-21 00:47] LABS: INR 2.16; PARTIAL THROMBOPLASTIN TIME 35.8 Seconds (25.1-36.5)
[2018-03-21] MEDS: Albuterol-Ipratrop 3 mg / 0.5 (3 ml) UD IH SCH ×4 (01:07→20:06)
[2018-03-21 07:00] LABS: BASO # 0.01 K/mm3 (0.0-2.0); BASO % 0.1 % (0.0-3.0); EOS # 0.2 (0.0-0.7); GRAN # 13.57 (1.4-6.5); GRAN % 86.1 % (50.0-68.0); HEMOGLOBIN 7.4 g/dL (12.0-16.0); LYMPH % 6.1 % (22.0-35.0); MEAN CELL VOLUME 85.4 fl (80.0-105.0); MEAN CORPUSCULAR HEMOGLOBIN 28.5 pg (25.0-35.0); MEAN CORPUSCULAR HGB CONC 33.3 g/dl (31.0-37.0); MEAN PLATELET VOLUME 9.2 fl (7.0-11.0); MONO # 1.1 (0.1-0.6); MONO % 6.7 % (1.0-6.0); RBC 2.6 10^6/uL (3.5-6.1); RED CELL DISTRIBUTION WIDTH 16.5 % (11.5-14.5); WHITE BLOOD COUNT 15.8 10^3/uL (4.5-11.0)
[2018-03-21 07:30] LABS: ALB/GLOB RATIO 0.8 (1.1-1.8); ALBUMIN 2.8 g/dL (3.0-4.8); CALCIUM 8.3 mg/dL (8.4-10.5)
[2018-03-21] MEDS: Insulin Lispro (humaLOG) MEDIUM Coverage SC SCH ×4 (08:43→22:06)
[2018-03-21] MEDS: Pantoprazole 20 mg EC Tab PO SCH (08:44)
--- NOTE | 2018-03-21 09:21 | CP.PCM.PN ---
Subjective - Date & Time of Evaluation Date of Evaluation: 03/21/18 Time of Evaluation: 07:30 - Subjective Subjective: Awake, alert, no distress, complaints of leg pain Reason for consultation and follow up: Cardiac evaluation of coronary artery disease, post op follow up of I7D of left foot abscess Seen and examined by me and Dr. Anton Objective - Vital Signs/Intake and Output Vital Signs (last 24 hours): Temp Pulse Resp BP Pulse Ox 98 F 89 20 147/74 95 03/21/18 06:00 03/21/18 06:00 03/21/18 06:00 03/21/18 06:00 03/21/18 06:00 Intake and Output: 03/21/18 03/21/18 06:59 18:59 Intake Total 970 Output Total 1300 Balance -330 - Medications Medications: Current Medications Acetaminophen (Tylenol 325mg Tab) 650 mg PO Q6H PRN PRN Reason: Pain, moderate (4-7) Last Admin: 03/21/18 03:06 Dose: 650 mg Albuterol/Ipratropium (Duoneb 3 Mg/0.5 Mg (3 Ml) Ud) 3 ml IH Q6H [facility] Last Admin: 03/21/18 07:27 Dose: 3 ml Allopurinol (Zyloprim) 100 mg PO DAILY [facility] Last Admin: 03/20/18 10:51 Dose: 100 mg Atorvastatin Calcium (Lipitor) 20 mg PO DAILY [facility] Last Admin: 03/18/18 09:50 Dose: 20 mg Calcium Acetate (Phoslo) 667 mg PO WM [facility] Last Admin: 03/21/18 08:44 Dose: 667 mg Clopidogrel Bisulfate (Plavix) 75 mg PO DAILY [facility] Last Admin: 03/20/18 10:51 Dose: 75 mg Meropenem/Sodium Chloride (Merrem Iv 500 Mg/Ns 50 Ml) 500 mg in 50 mls @ 100 mls/hr IVPB Q12 [facility]; Protocol Stop: 03/23/18 22:01 Last Admin: 03/20/18 22:34 Dose: 100 mls/hr Insulin Detemir (Levemir) 20 unit SC HS [facility] Last Admin: 03/20/18 22:33 Dose: 20 unit Insulin Human Lispro (Humalog Med) 0 units SC ACHS [facility] Last Admin: 03/21/18 08:43 Dose: 5 units Metoprolol Tartrate (Lopressor) 25 mg PO BID [facility] Last Admin: 03/20/18 18:13 Dose: 25 mg Montelukast Sodium (Singulair) 10 mg PO [facility] Last Admin: 03/20/18 22:33 Dose: 10 mg Home Med - Fluvoxamine [Luvox] 25 Mg 25 mg PO BID [facility] Last Admin: 03/20/18 18:12 Dose: Not Given Home Med - Umeclidinium [place] [Incruse Ellipta] 1 Puff 1 puff IH [facility] Last Admin: 03/18/18 22:57 Dose: Not Given Nortriptyline HCl (Pamelor) 50 mg PO [facility] Last Admin: 03/20/18 22:33 Dose: 50 mg Oxychlorosene Sodium (Clorpactin Wcs-90) 2 gm TOP Q12 [facility] Last Admin: 03/20/18 22:34 Dose: 2 gm Oxymetazoline HCl (Afrin 0.05%) 0 ml NS TID [facility] Last Admin: 03/20/18 18:14 Dose: 2 spray Pantoprazole Sodium (Protonix Ec Tab) 20 mg PO ACB [facility] Last Admin: 03/21/18 08:44 Dose: 20 mg Quetiapine Fumarate (Seroquel Xr) 100 mg PO [facility]; Protocol Last Admin: 03/20/18 22:32 Dose: 100 mg Silver Sulfadiazine (Silvadene 1% 25 Gm) 1 gm TP BID [facility] Last Admin: 03/20/18 10:54 Dose: 1 gm Tizanidine HCl (Zanaflex) 2 mg PO Q6 [facility] Last Admin: 03/21/18 05:06 Dose: 2 mg - Labs Labs: 03/21/18 06:30 03/21/18 06:30 PT 25.0 SECONDS (9.4-12.5) H 03/21/18 00:23 INR 2.16 03/21/18 00:23 APTT 35.8 Seconds (25.1-36.5) 03/21/18 00:23 - Constitutional Appears: Non-toxic, No Acute Distress - Head Exam Head Exam: NORMAL INSPECTION, NORMOCEPHALIC - Eye Exam Eye Exam: Normal appearance Pupil Exam: NORMAL ACCOMODATION - ENT Exam ENT Exam: Mucous Membranes Moist, Normal Exam - Respiratory Exam Respiratory Exam: Clear to Ausculation Bilateral, NORMAL BREATHING PATTERN - Cardiovascular Exam Cardiovascular Exam: +S1, +S2 - GI/Abdominal Exam GI & Abdominal Exam: Soft, Normal Bowel Sounds - Extremities Exam Additional comments: left foot with dressing - Neurological Exam Neurological Exam: Alert, Awake, Oriented x3 - Psychiatric Exam Psychiatric exam: Normal Affect, Normal Mood - Skin Skin Exam: Dry, Normal Color, Warm Assessment and Plan - Assessment and Plan (Free Text) Assessment: A 57 year old female who came in to the ER due to left foot swelling. History of coronary artery disease post stents on 02/2013. COPD, obesity, fibromyalgia, HTN, CHF, DM, Diabetic neuropathy, Charcot foot, kidney disease, endometriosis, cellulitis of lower extremities. ESRD on hemodialysis. Had I & D of left foot. Wound positive for Staphyloccoccus aureaus. On IV antibiotics, on contact isolation. Post blood transfusion with hemodialysis for low H/H, Moore catheter reinserted due to urinary retention. Plan: Denies chest pain or shortness of breath Stable heart rate Controlled blood pressure Cardiac status stable post transfusion of another 1 unit PRBC repeat H/H 7.08/12 On contact isolation for wound Staphyloccoccus aureaus Hyperbaric treatment for left foot wound Midline catheter for [facility]p IV antibiotics Continue antibiotics as per ID Continue current treatment Continue current medications Chart reviewed Will follow up Plan and treatment discussed with Dr. Anton
[2018-03-21] MEDS: MEROPENEM 500 MG in NS 500 MG/50 ML BAG IVPB SCH (09:42)
--- NOTE | 2018-03-21 10:38 | PN ---
DATE: 03/21/2018 SUBJECTIVE: The patient is in bed in no acute distress, nontoxic. No fevers, no chills. Seen earlier today in 374. OBJECTIVE: VITAL SIGNS: Temperature is 98, blood pressure is 135/70, respiratory rate of 19, heart rate of 96. HEENT: Unremarkable. NECK: Supple. LUNGS: Have decreased breath sounds. HEART: Normal S1, S2. ABDOMEN: Soft, nontender. LABORATORY EXAMINATION: Reveals the patient's white count of 15,800, hemoglobin of 7 and platelets of 210. Chemistries reveals a BUN of 52, creatinine of 4.2. Urinalysis is noted. Serology is noted. Microbiology reveals the blood cultures. Repeat blood cultures were all negative. The patient's staph aureus is sensitive staph aureus and in the blood, oxacillin sensitive in the foot, oxacillin sensitive and another culture also oxacillin sensitive and repeat blood cultures are negative from the . Review of orders reveals the patient to be on meropenem. ASSESSMENT AND PLAN: This is a 57-year-old female who was admitted with severe sepsis secondary to sensitive Staphylococcus aureus bacteremia, did have septic shock initially with a left foot abscess also with Staphylococcus aureus sensitive status post incision and drainage with acute kidney injury on top of chronic kidney injury and the patient with chronic obstructive lung disease, congestive heart failure, hypertension, and diabetes. We will require 4 to 6 weeks of antibiotics for osteomyelitis or abscess drainage and persistent bacteremia. Echocardiogram does not show any vegetations and; however, the patient's trans thoracic echo. The patient does have a sedimentation rate of 144 and C-reactive protein of greater than 450. Today is day #5 of 28 days of meropenem with a weekly CBC, SMA-18, sed rate, C-reactive protein. Of note, THE PATIENT IS ALLERGIC TO CEFTAROLINE, has kidney injury, cannot use vancomycin and HAS ALLERGY TO CEFTAROLINE, unable to use cephalosporins and we will follow closely with you. The patient's underlying kidney disease. Terrance Kent MD
--- NOTE | 2018-03-21 11:50 | CP.PCM.PN ---
<BaileyGris - Last Filed: 03/21/18 11:47> Subjective - Date & Time of Evaluation Date of Evaluation: 03/21/18 Time of Evaluation: 11:47 - Subjective Subjective: Podiatry progress note for Dr. Bills 57 y/o female patient was seen and evaluated in the HBO center at the [place] wound care. Patient is alert, oriented and awake. Patient denies any pedal complaints at this time. Patient states her dressing was changed overnight. Patient denies any complaints of fever, nausea or vomiting. Objective - Vital Signs/Intake and Output Vital Signs (last 24 hours): Temp Pulse Resp BP Pulse Ox 98 F 89 20 147/74 95 03/21/18 06:00 03/21/18 09:36 03/21/18 06:00 03/21/18 09:36 03/21/18 06:00 Intake and Output: 03/21/18 03/21/18 06:59 18:59 Intake Total 970 Output Total 1300 Balance -330 - Medications Medications: Current Medications Acetaminophen (Tylenol 325mg Tab) 650 mg PO Q6H PRN PRN Reason: Pain, moderate (4-7) Last Admin: 03/21/18 03:06 Dose: 650 mg Albuterol/Ipratropium (Duoneb 3 Mg/0.5 Mg (3 Ml) Ud) 3 ml IH Q6H [facility] Last Admin: 03/21/18 07:27 Dose: 3 ml Allopurinol (Zyloprim) 100 mg PO DAILY [facility] Last Admin: 03/20/18 10:51 Dose: 100 mg Atorvastatin Calcium (Lipitor) 20 mg PO DAILY [facility] Last Admin: 03/18/18 09:50 Dose: 20 mg Calcium Acetate (Phoslo) 667 mg PO WM [facility] Last Admin: 03/21/18 08:44 Dose: 667 mg Clopidogrel Bisulfate (Plavix) 75 mg PO DAILY [facility] Last Admin: 03/21/18 09:37 Dose: 75 mg Meropenem/Sodium Chloride (Merrem Iv 500 Mg/Ns 50 Ml) 500 mg in 50 mls @ 100 mls/hr IVPB Q12 [facility]; Protocol Stop: 03/23/18 22:01 Last Admin: 03/21/18 09:42 Dose: 100 mls/hr Insulin Detemir (Levemir) 20 unit SC HS [facility] Last Admin: 03/20/18 22:33 Dose: 20 unit Insulin Human Lispro (Humalog Med) 0 units SC ACHS [facility] Last Admin: 03/21/18 08:43 Dose: 5 units Metoprolol Tartrate (Lopressor) 25 mg PO BID [facility] Last Admin: 03/21/18 09:36 Dose: 25 mg Montelukast Sodium (Singulair) 10 mg PO [facility] Last Admin: 03/20/18 22:33 Dose: 10 mg Home Med - Fluvoxamine [Luvox] 25 Mg 25 mg PO BID [facility] Last Admin: 03/20/18 18:12 Dose: Not Given Home Med - Umeclidinium [place] [Incruse Ellipta] 1 Puff 1 puff IH [facility] Last Admin: 03/18/18 22:57 Dose: Not Given Nortriptyline HCl (Pamelor) 50 mg PO [facility] Last Admin: 03/20/18 22:33 Dose: 50 mg Oxychlorosene Sodium (Clorpactin Wcs-90) 2 gm TOP Q12 [facility] Last Admin: 03/20/18 22:34 Dose: 2 gm Oxymetazoline HCl (Afrin 0.05%) 0 ml NS TID [facility] Last Admin: 03/20/18 18:14 Dose: 2 spray Pantoprazole Sodium (Protonix Ec Tab) 20 mg PO ACB [facility] Last Admin: 03/21/18 08:44 Dose: 20 mg Quetiapine Fumarate (Seroquel Xr) 100 mg PO [facility]; Protocol Last Admin: 03/20/18 22:32 Dose: 100 mg Silver Sulfadiazine (Silvadene 1% 25 Gm) 1 gm TP BID [facility] Last Admin: 03/20/18 10:54 Dose: 1 gm Tizanidine HCl (Zanaflex) 2 mg PO Q6 [facility] Last Admin: 03/21/18 05:06 Dose: 2 mg - Labs Labs: 03/21/18 06:30 03/21/18 06:30 PT 25.0 SECONDS (9.4-12.5) H 03/21/18 00:23 INR 2.16 03/21/18 00:23 APTT 35.8 Seconds (25.1-36.5) 03/21/18 00:23 - Constitutional Appears: Well, Non-toxic, No Acute Distress - Head Exam Head Exam: ATRAUMATIC, NORMOCEPHALIC - Extremities Exam Additional comments: Bilateral Lower Extremity Exam VASC: palpable pedal pulses, TG warm to warm bilaterally, edema noted to all the digits with soupy, non-viable mottled tissue DERM: macerated, mottled, non-viable tissue noted to all the digits to the level of the metatarsals with the skin peeling on the great toe, surgical incision sites to the left foot dorsally, laterally and plantarly are full thickness with granular tissue present, blisters noted to the anterior ankle with positive drainage, minimal active bleeding noted, no malodor, large incision noted plantarly with devitalized tissue Right foot, stable ulceration noted to the tip of the 2nd digit - Neurological Exam Neurological Exam: Alert, Awake, Oriented x3 - Psychiatric Exam Psychiatric exam: Normal Affect, Normal Mood Assessment and Plan - Assessment and Plan (Free Text) Assessment: 57 y/o female patient 5 days status post incision and drainage of the left foot secondary to diabetic foot abscess, causing compartment-like clinical symptoms Plan: Patient seen and evaluated at bedside with Dr. Bills Plan discussed with attending Chart, labs and vitals were reviewed- afebrile, positive leukocytosis trending down to 15.8 Patient dressings were changed with sterile instruments Wound was flushed with Clorpactin sterile saline solution Dorsal incisions were packed with 0.25 inch packing, iodoform Plantar incision was packed with xeroform Wounds were then dressed with gauze, ABD and Kerlix- DO NOT APPLY MARYLU/COBAN/ANY COMPRESSION No compression has been applied at this time Patient likely to undergo Hyperbaric Oxygen Treatment to salvage the proximal foot, transmetatarsal amputation pending demarcation of gangrenous changes Podiatry will carefully continue to monitor the patient <Guillermina Bills - Last Filed: 03/29/18 15:24> Objective - Vital Signs/Intake and Output Vital Signs (last 24 hours): Temp Pulse Resp BP Pulse Ox 97.7 F 97 H 20 121/68 94 L 03/29/18 06:00 03/29/18 12:24 03/29/18 06:00 03/29/18 12:24 03/29/18 06:00 Intake and Output: 03/29/18 03/29/18 06:59 18:59 Intake Total 480 Output Total 1150 Balance -670 - Medications Medications: Current Medications Albuterol/Ipratropium (Duoneb 3 Mg/0.5 Mg (3 Ml) Ud) 3 ml IH [id number] [facility] Last Admin: 03/29/18 11:22 Dose: Not Given Albuterol/Ipratropium (Duoneb 3 Mg/0.5 Mg (3 Ml) Ud) 3 ml IH [id number] PRN PRN Reason: Shortness of Breath Last Admin: 03/26/18 17:16 Dose: 3 ml Allopurinol (Zyloprim) 100 mg PO DAILY [facility] Last Admin: 03/29/18 12:28 Dose: 100 mg Aspirin (Ecotrin) 81 mg PO DAILY [facility] Last Admin: 03/29/18 12:21 Dose: 81 mg Atorvastatin Calcium (Lipitor) 20 mg PO DAILY [facility] Last Admin: 03/18/18 09:50 Dose: 20 mg Calcium Acetate (Phoslo) 1,334 mg PO WM [facility] Last Admin: 03/29/18 12:26 Dose: 1,334 mg Furosemide (Lasix) 40 mg PO DAILY [facility] Last Admin: 03/29/18 12:24 Dose: 40 mg Hydralazine HCl (Apresoline) 25 mg PO BID [facility] Last Admin: 03/29/18 12:20 Dose: 25 mg Hydromorphone HCl (Dilaudid) 2 mg IVP Q4H PRN PRN Reason: Pain, severe (8-10) Last Admin: 03/29/18 00:38 Dose: 2 mg Meropenem/Sodium Chloride (Merrem Iv 500 Mg/Ns 50 Ml) 500 mg in 50 mls @ 100 mls/hr IVPB Q12 [facility]; Protocol Stop: 04/03/18 15:34 Last Admin: 03/29/18 12:25 Dose: 100 mls/hr Insulin Detemir (Levemir) 20 unit SC HS [facility] Last Admin: 03/28/18 21:25 Dose: 20 unit Insulin Human Lispro (Humalog Med) 0 units SC ACHS [facility] Last Admin: 03/29/18 12:21 Dose: 1 units Insulin Lispro Protam/Lispro Human (Humalog Mix 75/25) 18 units SC ACBD [facility] Last Admin: 03/29/18 12:22 Dose: 18 units Metoprolol Tartrate (Lopressor) 50 mg PO BID [facility] Last Admin: 03/29/18 12:24 Dose: 50 mg Montelukast Sodium (Singulair) 10 mg PO HS [facility] Last Admin: 03/28/18 21:25 Dose: 10 mg Home Med - Fluvoxamine [Luvox] 25 Mg 25 mg PO BID [facility] Last Admin: 03/29/18 12:21 Dose: Not Given Home Med - Umeclidinium [place] [Incruse Ellipta] 1 Puff 1 puff IH [facility] Last Admin: 03/28/18 22:00 Dose: Not Given Nortriptyline HCl (Pamelor) 50 mg PO HS [facility] Last Admin: 03/28/18 21:25 Dose: 50 mg Oxychlorosene Sodium (Clorpactin Wcs-90) 2 gm TOP Q12 [facility] Last Admin: 03/29/18 12:20 Dose: Not Given Oxychlorosene Sodium (Clorpactin Wcs-90) 2 gm TOP DAILY [facility] Last Admin: 03/29/18 12:21 Dose: Not Given Pantoprazole Sodium (Protonix Ec Tab) 20 mg PO ACB [facility] Last Admin: 03/29/18 12:27 Dose: 20 mg Potassium Chloride (Klor-Con 10) 20 meq PO BRK [facility] Last Admin: 03/29/18 12:23 Dose: 20 meq Potassium Chloride (K-Dur 20 Meq Er Tab) 20 meq PO BRK [facility] Last Admin: 03/29/18 12:23 Dose: 20 meq Prednisone (Prednisone Tab) 10 mg PO DAILY [facility] Last Admin: 03/29/18 12:27 Dose: 10 mg Quetiapine Fumarate (Seroquel Xr) 100 mg PO [facility]; Protocol Last Admin: 03/28/18 21:24 Dose: 100 mg Silver Sulfadiazine (Silvadene 1% 25 Gm) 1 gm TP BID [facility] Last Admin: 03/29/18 12:27 Dose: Not Given Tizanidine HCl (Zanaflex) 2 mg PO Q6 [facility] Last Admin: 03/29/18 12:27 Dose: 2 mg - Labs Labs: 03/29/18 07:14 03/29/18 07:14 PT 15.0 SECONDS (9.4-12.5) H 03/29/18 07:14 INR 1.30 03/29/18 07:14 APTT 35.8 Seconds (25.1-36.5) 03/21/18 00:23 Attending/Attestation - Attestation I have personally seen and examined this patient.: Yes I have fully participated in the care of the patient.: Yes I have reviewed all pertinent clinical information, including history, physical exam and plan: Yes Notes (Text): 03/29/18 15:22 pt seen with resident for severe limb threateninginfection of left foot s/p I&D and septic shock; now on dialysis; pt to do HBO therapy for necrotizing fascitis of the left foot
[2018-03-21] MEDS: Potassium Chloride 10 mEq ER Tab PO SCH (18:08)
--- NOTE | 2018-03-21 18:27 | PN ---
DATE: 03/21/2018 REASON FOR CONSULTATION: Cardiac evaluation, coronary artery disease, admitted with septic shock, sores being in the left foot. This note is an addition to dictated by nurse practitioner, Liz Jiménez. SUBJECTIVE: As mentioned history of coronary artery disease, with stent in 02/2013, obesity, fibromyalgia, hyperlipidemia, diabetes, diabetic nephropathy, neuropathy, Charcot foot, endometriosis, admitted with left foot abscess, requiring I and D, went into septic shock, history of end-stage renal disease, on dialysis. Get two units of blood, now today's hemoglobin 7.4. No evidence of acute FL. WBC trending down to 15. RECOMMENDATIONS: We will discontinue Plavix because the stent is in 2012. Today, INR is 2.16. Once the patient is stable, consider for risk stratification test as outpatient in office in four to six weeks. Follow up now closely and we will discontinue Plavix because of the patient's blood loss. I have discussed with ____, screed person. We will follow with you. Stephanie Anton MD
--- NOTE | 2018-03-21 18:50 | PN ---
DATE: 03/21/2018 SUBJECTIVE: The patient is seen lying in bed. She is awake, she is alert. She complains of pain in her foot. She denies any chest pain. PHYSICAL EXAMINATION: GENERAL: Middle-aged lady lying in bed. VITAL SIGNS: Blood pressure 147/74, heart rate 89, respiratory rate 20, temperature 98. HEENT: Normocephalic, atraumatic, positive pallor. NECK: Supple, no JVD. LUNGS: Bilateral equal entry, bilateral equal expansion. CARDIAC: S1, S2, regular and rhythm, no murmur, no rub. ABDOMEN: Obese, distended, soft, nontender, bowel sounds present. EXTREMITIES.. Severe ecchymosis of the left forefoot. INTAKE AND OUTPUT: 970/1750. LABORATORY DATA WBC 15.8, hemoglobin 7.4, hematocrit 22, platelets 210. Sodium 135, potassium 3.3, chloride 98, CO2 of 27, BUN 52, creatinine 4.3, glucose 309, calcium 8.3, phosphorus 7.4, AST 55, ALT 36, albumin 2.8. Wound culture, no growth so far. CURRENT MEDICATIONS: DuoNeb, Ecotrin, Luvox, K-Ashly, Levemir, Lipitor, Lopressor, meropenem, Pamelor, PhosLo, Protonix, Seroquel, Singulair, Tylenol, Zanaflex, Zyloprim, vitamin K, Plavix. ASSESSMENT: 1. Severe sepsis, staph bacteremia, staph abscess. 2. Acute kidney injury superimposed on chronic kidney disease stage III, nonoliguric, status post dialysis x2. 3. Jqr-alcdntv-oyabnorfz diabetes mellitus. 4. Diabetic neuropathy. 5. Charcot's foot. 6. Severe anemia. 7. Coagulopathy. PLAN: 1. Renal parameters kind of plateaued, last dialysis was Sunday, we will hold dialysis today. Will assess for dialysis again tomorrow. 2. Check labs in a.m. 3. Avoid nephrotoxins. 4. Avoid hypotension. 5. Dose all antibiotics for creatinine clearance 10-30 ml/minute. 6. Continue phosphate binders. 7. Consider blood transfusion, we will defer to Hematology. Elva Frank, MD
--- NOTE | 2018-03-21 19:17 | PN ---
DATE: 03/20/2018 SUBJECTIVE: The patient is 57-year-old, seen and examined. Yesterday's event notes, this patient had episode of bleeding from her left foot wound. She was given dose of vitamin K and foot was rewrapped and the bleeding stopped, then this morning, her hemoglobin is low again. PHYSICAL EXAMINATION: GENERAL: She is awake, alert, oriented, and communicative. She is eating and tolerating. She seems to be more awake and alert as compared to yesterday. VITAL SIGNS: She is afebrile. Pulse 89, respirations 20, blood pressure 147/74. LUNGS: Bilateral fair airflow. No rhonchi or crackles. HEENT: S1 and S2 audible. ABDOMEN: Soft, obese, and nontender. No rebound. No guarding. NEUROLOGIC: The patient is awake, alert. oriented, and communicative. EXTREMITIES: Left foot is in the dressing, done by Podiatry team. ASSESSMENT: 1. Left foot abscess, status post urgent incision and drainage. 2. Status post bacteremia. 3. Status post septic shock. 4. End-stage renal disease, on hemodialysis, but that was temporary. She seems to be improving day by day. Her creatinine has improved significantly. 5. Blood loss anemia. 6. Insulin-dependent diabetes. 7. Hypertension. 8. Hyperlipidemia. PLAN: The patient will receive two packs of RBCs. She is getting hyperbaric treatment. She is currently on IV antibiotics. She is currently getting meropenem and she will followup with CBC and CMP in the a.m. ID and Podiatry team is watching this patient . Colt Zhu MD
[2018-03-21] MEDS: Insulin Detemir 100 units/ml Vial (Levemir) SC SCH (21:35)
[2018-03-21] MEDS: QUEtiapine 50 mg XR Tab PO SCH ×2 (21:38→21:41)
[2018-03-22] MEDS: Albuterol-Ipratrop 3 mg / 0.5 (3 ml) UD IH SCH ×4 (01:45→20:20)
--- NOTE | 2018-03-22 05:54 | CP.PCM.PN ---
Subjective - Date & Time of Evaluation Date of Evaluation: 03/22/18 Time of Evaluation: 06:35 - Subjective Subjective: Lying in bed,awake, alert, no distress Reason for consultation and follow up: Cardiac evaluation of coronary artery disease, post op follow up of I&D of left foot abscess Seen and examined by me and Dr. Anton Objective - Vital Signs/Intake and Output Vital Signs (last 24 hours): Temp Pulse Resp BP Pulse Ox 99.4 F 86 14 162/75 H 98 03/21/18 22:54 03/21/18 22:54 03/21/18 22:54 03/21/18 22:54 03/21/18 18:36 Intake and Output: 03/21/18 03/22/18 18:59 06:59 Intake Total 0 850 Output Total 800 Balance 0 50 - Medications Medications: Current Medications Acetaminophen (Tylenol 325mg Tab) 650 mg PO Q6H PRN PRN Reason: Pain, moderate (4-7) Last Admin: 03/21/18 18:08 Dose: 650 mg Albuterol/Ipratropium (Duoneb 3 Mg/0.5 Mg (3 Ml) Ud) 3 ml IH Q6H [facility] Last Admin: 03/22/18 01:45 Dose: 3 ml Allopurinol (Zyloprim) 100 mg PO DAILY [facility] Last Admin: 03/21/18 14:40 Dose: 100 mg Aspirin (Ecotrin) 81 mg PO DAILY [facility] Atorvastatin Calcium (Lipitor) 20 mg PO DAILY [facility] Last Admin: 03/18/18 09:50 Dose: 20 mg Calcium Acetate (Phoslo) 1,334 mg PO WM [facility] Last Admin: 03/21/18 17:48 Dose: 1,334 mg Meropenem/Sodium Chloride (Merrem Iv 500 Mg/Ns 50 Ml) 500 mg in 50 mls @ 100 mls/hr IVPB Q12 [facility]; Protocol Stop: 03/23/18 22:01 Last Admin: 03/21/18 09:42 Dose: 100 mls/hr Insulin Detemir (Levemir) 20 unit SC HS [facility] Last Admin: 03/21/18 21:35 Dose: 20 unit Insulin Human Lispro (Humalog Med) 0 units SC ACHS [facility] Last Admin: 03/21/18 22:06 Dose: 2 units Metoprolol Tartrate (Lopressor) 25 mg PO BID [facility] Last Admin: 03/21/18 17:47 Dose: 25 mg Montelukast Sodium (Singulair) 10 mg PO HS [facility] Last Admin: 03/21/18 21:40 Dose: 10 mg Home Med - Fluvoxamine [Luvox] 25 Mg 25 mg PO BID [facility] Last Admin: 03/20/18 18:12 Dose: Not Given Home Med - Umeclidinium [place] [Incruse Ellipta] 1 Puff 1 puff IH [facility] Last Admin: 03/18/18 22:57 Dose: Not Given Nortriptyline HCl (Pamelor) 50 mg PO HS [facility] Last Admin: 03/20/18 22:33 Dose: 50 mg Oxychlorosene Sodium (Clorpactin Wcs-90) 2 gm TOP Q12 [facility] Last Admin: 03/20/18 22:34 Dose: 2 gm Oxymetazoline HCl (Afrin 0.05%) 0 ml NS TID [facility] Last Admin: 03/20/18 18:14 Dose: 2 spray Pantoprazole Sodium (Protonix Ec Tab) 20 mg PO ACB [facility] Last Admin: 03/21/18 08:44 Dose: 20 mg Potassium Chloride (Klor-Con 10) 20 meq PO BRK [facility] Last Admin: 03/21/18 18:08 Dose: 20 meq Quetiapine Fumarate (Seroquel Xr) 100 mg PO HS [facility]; Protocol Last Admin: 03/21/18 21:41 Dose: 100 mg Silver Sulfadiazine (Silvadene 1% 25 Gm) 1 gm TP BID [facility] Last Admin: 03/20/18 10:54 Dose: 1 gm Tizanidine HCl (Zanaflex) 2 mg PO Q6 [facility] Last Admin: 03/22/18 05:44 Dose: 2 mg - Labs Labs: 03/21/18 06:30 03/21/18 06:30 PT 25.0 SECONDS (9.4-12.5) H 03/21/18 00:23 INR 2.16 03/21/18 00:23 APTT 35.8 Seconds (25.1-36.5) 03/21/18 00:23 - Constitutional Appears: Non-toxic, No Acute Distress - Head Exam Head Exam: NORMAL INSPECTION, NORMOCEPHALIC - Eye Exam Eye Exam: Normal appearance Pupil Exam: NORMAL ACCOMODATION - ENT Exam ENT Exam: Mucous Membranes Moist, Normal Exam - Respiratory Exam Respiratory Exam: Clear to Ausculation Bilateral, NORMAL BREATHING PATTERN - Cardiovascular Exam Cardiovascular Exam: +S1, +S2 - GI/Abdominal Exam GI & Abdominal Exam: Soft, Normal Bowel Sounds - Exam Additional comments: ESRD on hemodialysis - Extremities Exam Additional comments: left foot dressing - Neurological Exam Neurological Exam: Alert, Awake, Oriented x3 - Psychiatric Exam Psychiatric exam: Normal Affect, Normal Mood - Skin Skin Exam: Dry, Normal Color, Warm Assessment and Plan - Assessment and Plan (Free Text) Assessment: A 57 year old female who came in to the ER due to left foot swelling. History of coronary artery disease post stents on 02/2013. COPD, obesity, fibromyalgia, HTN, CHF, DM, Diabetic neuropathy, Charcot foot, kidney disease, endometriosis, cellulitis of lower extremities. ESRD on hemodialysis. Had I & D of left foot. Wound positive for Staphyloccoccus aureaus. On IV antibiotics, on contact isolation. Post blood transfusion with hemodialysis for low H/H. Plavix discontinued.On contact isolation for wound Staphyloccoccus aureaus Hyperbaric treatment for left foot wound Plan: No distress Denies chest pain or shortness of breath Stable heart rate Cardiac status stable Discontinued Plavix On contact isolation for wound Staphyloccoccus aureaus Hyperbaric treatment for left foot wound On ASA 81 mg daily, Lipitor 20 mg daily,Lopressor 25 mg BID Potassium Chloride 20 meq daily, Continue antibiotics as per ID Continue current treatment Continue current medications Chart reviewed Will follow up Plan and treatment discussed with Dr. Anton
[2018-03-22 07:35] LABS: BASO # 0.01 K/mm3 (0.0-2.0); BASO % 0.1 % (0.0-3.0); EOS # 0.1 (0.0-0.7); EOS % 0.8 % (1.5-5.0); GRAN # 15.37 (1.4-6.5); GRAN % 89.4 % (50.0-68.0); HEMOGLOBIN 9.3 g/dL (12.0-16.0); LYMPH % 5.6 % (22.0-35.0); MEAN CELL VOLUME 86.6 fl (80.0-105.0); MEAN CORPUSCULAR HEMOGLOBIN 28.4 pg (25.0-35.0); MEAN CORPUSCULAR HGB CONC 32.7 g/dl (31.0-37.0); MEAN PLATELET VOLUME 10.2 fl (7.0-11.0); MONO # 0.7 (0.1-0.6); MONO % 4.1 % (1.0-6.0); RBC 3.28 10^6/uL (3.5-6.1); RED CELL DISTRIBUTION WIDTH 16.1 % (11.5-14.5); WHITE BLOOD COUNT 17.2 10^3/uL (4.5-11.0)
[2018-03-22 07:59] LABS: ALB/GLOB RATIO 0.7 (1.1-1.8); ALBUMIN 2.9 g/dL (3.0-4.8); CALCIUM 8.6 mg/dL (8.4-10.5)
[2018-03-22] MEDS: Insulin Lispro (humaLOG) MEDIUM Coverage SC SCH ×4 (08:54→23:04)
[2018-03-22] MEDS: Pantoprazole 20 mg EC Tab PO SCH (10:24)
[2018-03-22] MEDS: Potassium Chloride 10 mEq ER Tab PO SCH (10:24)
[2018-03-22] MEDS: Silver Sulfadiazine 1% Cream (25 gm) TP SCH ×2 (10:24→18:03)
[2018-03-22] MEDS: MEROPENEM 500 MG in NS 500 MG/50 ML BAG IVPB SCH ×2 (10:28→23:02)
[2018-03-22] MEDS ORDERED: Potassium Chloride 20 mEq ER Tab PO ONE (10:30)
[2018-03-22] MEDS ORDERED: Albuterol-Ipratrop 3 mg / 0.5 (3 ml) UD IH PRN (11:08)
[2018-03-22] MEDS: FLUVOXAMINE 25 MG PO SCH ×2 (11:35→18:07)
[2018-03-22] MEDS: Oxymetazoline 0.05% Nasal Spray (30 ml) NS SCH ×3 (11:35→18:02)
--- NOTE | 2018-03-22 12:55 | RAD ---
Date of service: 03/22/2018 HISTORY: chest congestion COMPARISON: No prior. TECHNIQUE: Chest PA and lateral FINDINGS: LUNGS: No active pulmonary disease. PLEURA: No significant pleural effusion identified. No pneumothorax apparent. CARDIOVASCULAR: No aortic atherosclerotic calcification present. Mild cardiomegaly moderate vascular and interstitial congestion OSSEOUS STRUCTURES: No significant abnormalities. VISUALIZED UPPER ABDOMEN: Normal. OTHER FINDINGS: None. IMPRESSION: Moderate vascular and interstitial congestion
[2018-03-22] MEDS: Oxychlorosene Topical 2 gm Packet TOP SCH ×2 (13:22→23:01)
--- NOTE | 2018-03-22 13:44 | PN ---
DATE: 03/22/2018 REASON FOR CONSULTATION AND FOLLOWUP: Cardiac evaluation, coronary artery disease, admitted with septic shock, source being the left foot. This note is an addition to dictated by nurse practitioner. SUBJECTIVE: The patient denies any history of shortness of breath or any palpitation. The patient has never been on Coumadin. The patient has a last coronary stent in 02/2013, admitted with left foot abscess requiring I and D, went into septic shock, into diabetes neuropathy, nephropathy, requiring dialysis, history of Charcot foot, history of endometriosis, hemoglobin 9.3 yesterday, got blood during the dialysis. INR was 2.16. The patient had never been on Coumadin. Discussed with the patient. The patient was on aspirin and Plavix, but because of the bleeding and since the patient has a history of coronary stent in 02/2013, five years ago, we will discontinue Plavix and discontinue baby aspirin. We will repeat stat INR/PT. Most likely, this elevated INR could be secondary to shock liver when the patient came in with elevated liver function. We will repeat stat today PT/INR. RECOMMENDATIONS: Continue aspirin, continue metoprolol. The patient had echocardiography done on 03/16/2018, read by Dr. Moulton. That shows a normal LV function, [id number] mitral regurgitation, mild tricuspid regurgitation. Since the patient has dialysis started, we will wait until the renal function recovers or remains on dialysis and to start MARYLU inhibitor, but for now we will put hydralazine for blood pressure, avoid any nephrotoxic medication for now. If the patient remains on dialysis 25 p.o. b.i.d. hydralazine. Thank you Dr. Zhu for providing us the opportunity in taking care of the patient, Mohamud Ramirez. Discussed with marriage counselor minister. Discussed with Dr. Rodríguez Little regarding the patient's condition and mentioned that we will get her off from Plavix. Wound culture positive for Staph aureus. 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 Stephanie Anton MD
--- NOTE | 2018-03-22 13:59 | PN ---
DATE: 03/22/2018 SUBJECTIVE: The patient is 57 years old, seen and examined, awake, alert, oriented, complained of cough and congestion. No fever or chills. PHYSICAL EXAMINATION: VITAL SIGNS: She is afebrile, pulse 58, respirations 20, blood pressure 167/67. LUNGS: Bilateral soft crackles. Diffuse complaint of some cough and shortness of breath. HEART: S1 and S2 audible. ABDOMEN: Soft, obese, nontender. No rebound, no guarding. NEUROLOGICAL: The patient is awake, alert, oriented, communicative. EXTREMITIES: Left foot is wrapped in the dressing and has bluish discoloration. LABORATORY DATA: WBC 17.2, hemoglobin 9.3, hematocrit 28.4, platelets 215. Chemistry: Sodium 137, potassium 3.1, chloride 98, CO2 of 28, BUN 54, creatinine 3.5, blood sugar of 350. ASSESSMENT: 1. Staphylococcus bacteremia. 2. Staphylococcus wound infection. 3. Status post urgent left foot abscess incision and drainage. 4. Charcot's foot. 5. Poorly controlled diabetes. 6. History of hypertension. 7. Acute on chronic renal failure. PLAN: Currently, the patient is getting hyperbaric treatment. Today, she is going to get dialysis to get fluid removed. She seems to be in CHF. Continue nebulizer treatment. Currently, the patient is on meropenem. I will reevaluate the patient in a.m. Colt Zhu MD
--- NOTE | 2018-03-22 18:42 | PN ---
DATE: 03/22/2018 SUBJECTIVE: The patient is seen lying in bed. She is awake, she is alert. She complains of shortness of breath. She complains of tightness in her chest. She denies any nausea or vomiting. She denies any chest pain. PHYSICAL EXAMINATION: GENERAL: Middle-aged lady lying in bed. VITAL SIGNS: Blood pressure 167/67, heart rate 58, respiratory rate 20, temperature 98. HEENT: Normocephalic, atraumatic, positive pallor. NECK: Supple, no JVD. LUNGS: Bilateral equal entry, bilateral equal expansion, basal rales bilaterally. CARDIAC: S1 and S2, regular rate and rhythm, no murmur, no rub. ABDOMEN: Obese, distended, soft, nontender, bowel sounds present. EXTREMITIES: Dressing of the left foot. INTAKE AND OUTPUT: 850/800. LABORATORY DATA: WBC 17, hemoglobin 9, hematocrit 28, platelets 215. Sodium 131, potassium 3.1, chloride 98, CO2 28, BUN 54, creatinine 3.5, glucose 304, calcium 8.6, phosphorus 6.3. AST 36, ALT 36, albumin 2.9. The wound culture from 03/21/2018 no growth. Blood cultures from 03/18/2018 no growth. Urine culture from 03/17/2018 no growth. CURRENT MEDICATIONS: Apresoline 25 b.i.d., DuoNeb, Ecotrin, insulin, potassium. ASSESSMENT: 1. Acute kidney injury superimposed on chronic kidney disease stage III, nonoliguric acute kidney injury in the setting of severe sepsis. 2. Severe sepsis, staphylococcus wound abscess, staphylococcus bacteremia, multiorgan dysfunction. 3. Ghz-btsxnnd-blfcemroq diabetes mellitus. 4. Congestive heart failure/cardiomyopathy. 5. Hypokalemia. 6. Hyperphosphatemia. 7. Hyperglycemia. PLAN: 1. In light of her volume overload and shortness of breath, we will arrange for ultrafiltration today, to remove 2 kg. 2. Replace potassium, total of 40 mEq by mouth today. 3. Increase phosphate binders. 4. Maintain euglycemia. 5. Continue IV antibiotics dose for creatinine clearance 10-30 mL/minute. 6. Avoid nephrotoxins. 7.. Monitor H and H. Status post 2 units of blood transfusion yesterday. Elva Frank MD [facility] # [id number]
--- NOTE | 2018-03-22 21:13 | CP.PCM.PN ---
Subjective - Date & Time of Evaluation Date of Evaluation: 03/22/18 Time of Evaluation: 09:45 - Subjective Subjective: No fevers, not in distress, less pain in the foot, no abdominal pain, no nausea. Objective - Vital Signs/Intake and Output Vital Signs (last 24 hours): Temp Pulse Resp BP Pulse Ox 98.0 F 58 L 20 167/67 H 94 L 03/22/18 06:00 03/22/18 06:00 03/22/18 06:00 03/22/18 06:00 03/22/18 06:00 Intake and Output: 03/22/18 03/22/18 06:59 18:59 Intake Total 850 Output Total 800 Balance 50 - Medications Medications: Current Medications Acetaminophen (Tylenol 325mg Tab) 650 mg PO Q6H PRN PRN Reason: Pain, moderate (4-7) Last Admin: 03/21/18 18:08 Dose: 650 mg Albuterol/Ipratropium (Duoneb 3 Mg/0.5 Mg (3 Ml) Ud) 3 ml IH Q6H [facility] Last Admin: 03/22/18 07:50 Dose: 3 ml Allopurinol (Zyloprim) 100 mg PO DAILY [facility] Last Admin: 03/21/18 14:40 Dose: 100 mg Aspirin (Ecotrin) 81 mg PO DAILY [facility] Atorvastatin Calcium (Lipitor) 20 mg PO DAILY [facility] Last Admin: 03/18/18 09:50 Dose: 20 mg Calcium Acetate (Phoslo) 1,334 mg PO WM [facility] Last Admin: 03/21/18 17:48 Dose: 1,334 mg Meropenem/Sodium Chloride (Merrem Iv 500 Mg/Ns 50 Ml) 500 mg in 50 mls @ 100 mls/hr IVPB Q12 [facility]; Protocol Stop: 03/23/18 22:01 Last Admin: 03/21/18 09:42 Dose: 100 mls/hr Insulin Detemir (Levemir) 20 unit SC [facility] Last Admin: 03/21/18 21:35 Dose: 20 unit Insulin Human Lispro (Humalog Med) 0 units SC ACHS [facility] Last Admin: 03/21/18 22:06 Dose: 2 units Metoprolol Tartrate (Lopressor) 25 mg PO BID [facility] Last Admin: 03/21/18 17:47 Dose: 25 mg Montelukast Sodium (Singulair) 10 mg PO [facility] Last Admin: 03/21/18 21:40 Dose: 10 mg Home Med - Fluvoxamine [Luvox] 25 Mg 25 mg PO BID [facility] Last Admin: 03/20/18 18:12 Dose: Not Given Home Med - Umeclidinium [place] [Incruse Ellipta] 1 Puff 1 puff IH [facility] Last Admin: 03/18/18 22:57 Dose: Not Given Nortriptyline HCl (Pamelor) 50 mg PO [facility] Last Admin: 03/20/18 22:33 Dose: 50 mg Oxychlorosene Sodium (Clorpactin Wcs-90) 2 gm TOP Q12 [facility] Last Admin: 03/20/18 22:34 Dose: 2 gm Oxymetazoline HCl (Afrin 0.05%) 0 ml NS TID [facility] Last Admin: 03/20/18 18:14 Dose: 2 spray Pantoprazole Sodium (Protonix Ec Tab) 20 mg PO ACB [facility] Last Admin: 03/21/18 08:44 Dose: 20 mg Potassium Chloride (Klor-Con 10) 20 meq PO BRK [facility] Last Admin: 03/21/18 18:08 Dose: 20 meq Quetiapine Fumarate (Seroquel Xr) 100 mg PO [facility]; Protocol Last Admin: 03/21/18 21:41 Dose: 100 mg Silver Sulfadiazine (Silvadene 1% 25 Gm) 1 gm TP BID [facility] Last Admin: 03/20/18 10:54 Dose: 1 gm Tizanidine HCl (Zanaflex) 2 mg PO Q6 [facility] Last Admin: 03/22/18 05:44 Dose: 2 mg - Labs Labs: 03/22/18 07:15 03/22/18 07:15 PT 25.0 SECONDS (9.4-12.5) H 03/21/18 00:23 INR 2.16 03/21/18 00:23 APTT 35.8 Seconds (25.1-36.5) 03/21/18 00:23 - Constitutional Appears: No Acute Distress, Chronically Ill - Head Exam Head Exam: NORMAL INSPECTION - Respiratory Exam Respiratory Exam: Decreased Breath Sounds - Cardiovascular Exam Cardiovascular Exam: +S1, +S2 - GI/Abdominal Exam GI & Abdominal Exam: Soft. absent: Tenderness - Extremities Exam Additional comments: left foot with dressings in place Assessment and Plan - Assessment and Plan (Free Text) Plan: Assessment severe sepsis with Staph aureus bacteremia probably left foot abscess and severe skin/skin structure infection of the left foot S/P I and D and debridement history of sepsis due to left foot skin and skin structure infection without evidence of osteomyelitis on MRI, growing MSSA from the wound chronic renal failure history of sepsis due to abdominal wall abscess S/P I and D, grew MSSA history of sepsis due to UTI with E. coli which is resistant to many antibiotics but sensitive to Imipenem (but not ESBL-producing) COPD fibromyalgia history of UTI's restless leg syndrome history of pneumonia HTN chronic CHF DM history of kidney stones history of endometriosis S/P oophorectomy history of cellulitis of lower extremities Plan continue Merrem and we recommend 4-6 weeks of antibiotics with weekly ESR, CRP, CBC, CMP while on antibiotics follow up further plans of Podiatry
[2018-03-22] MEDS: UMECLIDINIUM BROMIDE IH SCH (21:43)
[2018-03-22] MEDS: Insulin Detemir 100 units/ml Vial (Levemir) SC SCH (23:01)
[2018-03-22] MEDS: QUEtiapine 50 mg XR Tab PO SCH (23:04)
[2018-03-23] MEDS: Albuterol-Ipratrop 3 mg / 0.5 (3 ml) UD IH SCH ×6 (00:35→19:25)
--- NOTE | 2018-03-23 06:51 | CP.PCM.PN ---
<Gris Avalos - Last Filed: 03/23/18 06:47> Subjective - Date & Time of Evaluation Date of Evaluation: 03/23/18 Time of Evaluation: 06:48 - Subjective Subjective: Podiatry progress note for Dr. Little 57 y/o female patient was seen and evaluated in the [facility] center at the [facility]. Patient is alert, oriented and awake. Patient denies any pedal complaints at this time. Patent reports of minimal pain overnight. Patient denies any complaints of fever, nausea or vomiting. Objective - Vital Signs/Intake and Output Vital Signs (last 24 hours): Temp Pulse Resp BP Pulse Ox 98.6 F 84 19 153/86 H 96 03/22/18 22:09 03/23/18 02:00 03/22/18 22:09 03/22/18 22:09 03/22/18 22:09 - Medications Medications: Current Medications Acetaminophen (Tylenol 325mg Tab) 650 mg PO Q6H PRN PRN Reason: Pain, moderate (4-7) Last Admin: 03/21/18 18:08 Dose: 650 mg Albuterol/Ipratropium (Duoneb 3 Mg/0.5 Mg (3 Ml) Ud) 3 ml IH [id number] [facility] Last Admin: 03/23/18 03:55 Dose: 3 ml Albuterol/Ipratropium (Duoneb 3 Mg/0.5 Mg (3 Ml) Ud) 3 ml IH [id number] PRN PRN Reason: Shortness of Breath Allopurinol (Zyloprim) 100 mg PO DAILY [facility] Last Admin: 03/22/18 10:25 Dose: 100 mg Aspirin (Ecotrin) 81 mg PO DAILY [facility] Last Admin: 03/22/18 10:24 Dose: 81 mg Atorvastatin Calcium (Lipitor) 20 mg PO DAILY [facility] Last Admin: 03/18/18 09:50 Dose: 20 mg Calcium Acetate (Phoslo) 1,334 mg PO WM [facility] Last Admin: 03/22/18 18:06 Dose: 1,334 mg Hydralazine HCl (Apresoline) 25 mg PO BID [facility] Last Admin: 03/22/18 18:06 Dose: 25 mg Meropenem/Sodium Chloride (Merrem Iv 500 Mg/Ns 50 Ml) 500 mg in 50 mls @ 100 mls/hr IVPB Q12 [facility]; Protocol Stop: 03/23/18 22:01 Last Admin: 03/22/18 23:02 Dose: 100 mls/hr Insulin Detemir (Levemir) 20 unit SC [facility] Last Admin: 03/22/18 23:01 Dose: 20 unit Insulin Human Lispro (Humalog Med) 0 units SC ACHS [facility] Last Admin: 03/22/18 23:04 Dose: Not Given Metoprolol Tartrate (Lopressor) 25 mg PO BID [facility] Last Admin: 03/22/18 18:05 Dose: 25 mg Montelukast Sodium (Singulair) 10 mg PO [facility] Last Admin: 03/22/18 23:03 Dose: 10 mg Home Med - Fluvoxamine [Luvox] 25 Mg 25 mg PO BID [facility] Last Admin: 03/22/18 18:07 Dose: Not Given Home Med - Umeclidinium Sophia [Incruse Ellipta] 1 Puff 1 puff IH [facility] Last Admin: 03/22/18 21:43 Dose: Not Given Nortriptyline HCl (Pamelor) 50 mg PO [facility] Last Admin: 03/22/18 23:03 Dose: 50 mg Oxychlorosene Sodium (Clorpactin Wcs-90) 2 gm TOP Q12 [facility] Last Admin: 03/22/18 23:01 Dose: 2 gm Oxymetazoline HCl (Afrin 0.05%) 0 ml NS TID [facility] Last Admin: 03/22/18 18:02 Dose: 1 spray Pantoprazole Sodium (Protonix Ec Tab) 20 mg PO ACB [facility] Last Admin: 03/22/18 10:24 Dose: 20 mg Potassium Chloride (Klor-Con 10) 20 meq PO BRK [facility] Last Admin: 03/22/18 10:24 Dose: 20 meq Quetiapine Fumarate (Seroquel Xr) 100 mg PO [facility]; Protocol Last Admin: 03/22/18 23:04 Dose: 100 mg Silver Sulfadiazine (Silvadene 1% 25 Gm) 1 gm TP BID [facility] Last Admin: 03/22/18 18:03 Dose: 1 gm Tizanidine HCl (Zanaflex) 2 mg PO Q6 [facility] Last Admin: 03/23/18 02:52 Dose: Not Given - Labs Labs: 03/22/18 07:15 03/22/18 07:15 PT 25.0 SECONDS (9.4-12.5) H 03/21/18 00:23 INR 2.16 03/21/18 00:23 APTT 35.8 Seconds (25.1-36.5) 03/21/18 00:23 - Constitutional Appears: Well, Non-toxic, No Acute Distress - Head Exam Head Exam: ATRAUMATIC, NORMOCEPHALIC - Extremities Exam Additional comments: Bilateral Lower Extremity Exam VASC: palpable pedal pulses, TG warm to warm bilaterally, edema noted to all the digits with soupy, non-viable mottled tissue DERM: increasing gangrenous changes noted with non-viable tissue noted to all the digits to the level of the metatarsals with the skin peeling on the great toe, surgical incision sites to the left foot dorsally, laterally and plantarly are full thickness with granular tissue present, blisters noted to the dorsum of the foot and anterior ankle with positive serous drainage, minimal active bleeding noted, no malodor, large incision noted plantarly with devitalized tissue Right foot, stable ulceration noted to the tip of the 2nd digit - Neurological Exam Neurological Exam: Alert, Awake, Oriented x3 - Psychiatric Exam Psychiatric exam: Normal Affect, Normal Mood Assessment and Plan - Assessment and Plan (Free Text) Assessment: 57 y/o female patient 6 days status post incision and drainage of the left foot secondary to diabetic foot abscess, causing compartment-like clinical symptoms Plan: Patient seen and evaluated at bedside with Dr. Bills Plan discussed with attending Chart, labs and vitals were reviewed- afebrile, positive leukocytosis trending down to 15.8 Patient dressings were changed with sterile instruments Wound was flushed with Clorpactin sterile saline solution Incisions incisions were packed with 0.25 inch packing, iodoform Wounds were then dressed with gauze, ABD and Kerlix- DO NOT APPLY MARYLU/COBAN/ANY COMPRESSION No compression has been applied at this time Patient likely to undergo Hyperbaric Oxygen Treatment to salvage the proximal foot, transmetatarsal amputation pending demarcation of gangrenous changes Podiatry will carefully continue to monitor the patient <Rodríguez Little - Last Filed: 03/23/18 07:31> Objective - Vital Signs/Intake and Output Vital Signs (last 24 hours): Temp Pulse Resp BP Pulse Ox 98.6 F 84 19 153/86 H 96 03/22/18 22:09 03/23/18 02:00 03/22/18 22:09 03/22/18 22:09 03/22/18 22:09 - Medications Medications: Current Medications Acetaminophen (Tylenol 325mg Tab) 650 mg PO Q6H PRN PRN Reason: Pain, moderate (4-7) Last Admin: 03/21/18 18:08 Dose: 650 mg Albuterol/Ipratropium (Duoneb 3 Mg/0.5 Mg (3 Ml) Ud) 3 ml IH [id number] [facility] Last Admin: 03/23/18 03:55 Dose: 3 ml Albuterol/Ipratropium (Duoneb 3 Mg/0.5 Mg (3 Ml) Ud) 3 ml IH [id number] PRN PRN Reason: Shortness of Breath Allopurinol (Zyloprim) 100 mg PO DAILY [facility] Last Admin: 03/22/18 10:25 Dose: 100 mg Aspirin (Ecotrin) 81 mg PO DAILY [facility] Last Admin: 03/22/18 10:24 Dose: 81 mg Atorvastatin Calcium (Lipitor) 20 mg PO DAILY [facility] Last Admin: 03/18/18 09:50 Dose: 20 mg Calcium Acetate (Phoslo) 1,334 mg PO WM [facility] Last Admin: 03/22/18 18:06 Dose: 1,334 mg Hydralazine HCl (Apresoline) 25 mg PO BID [facility] Last Admin: 03/22/18 18:06 Dose: 25 mg Meropenem/Sodium Chloride (Merrem Iv 500 Mg/Ns 50 Ml) 500 mg in 50 mls @ 100 mls/hr IVPB Q12 [facility]; Protocol Stop: 03/23/18 22:01 Last Admin: 03/22/18 23:02 Dose: 100 mls/hr Insulin Detemir (Levemir) 20 unit SC HS [facility] Last Admin: 03/22/18 23:01 Dose: 20 unit Insulin Human Lispro (Humalog Med) 0 units SC ACHS [facility] Last Admin: 03/22/18 23:04 Dose: Not Given Metoprolol Tartrate (Lopressor) 25 mg PO BID [facility] Last Admin: 03/22/18 18:05 Dose: 25 mg Montelukast Sodium (Singulair) 10 mg PO [facility] Last Admin: 03/22/18 23:03 Dose: 10 mg Home Med - Fluvoxamine [Luvox] 25 Mg 25 mg PO BID [facility] Last Admin: 03/22/18 18:07 Dose: Not Given Home Med - Umeclidinium Sophia [Incruse Ellipta] 1 Puff 1 puff IH [facility] Last Admin: 03/22/18 21:43 Dose: Not Given Nortriptyline HCl (Pamelor) 50 mg PO HS [facility] Last Admin: 03/22/18 23:03 Dose: 50 mg Oxychlorosene Sodium (Clorpactin Wcs-90) 2 gm TOP Q12 [facility] Last Admin: 03/22/18 23:01 Dose: 2 gm Oxychlorosene Sodium (Clorpactin Wcs-90) 2 gm TOP DAILY [facility] Oxymetazoline HCl (Afrin 0.05%) 0 ml NS TID [facility] Last Admin: 03/22/18 18:02 Dose: 1 spray Pantoprazole Sodium (Protonix Ec Tab) 20 mg PO ACB [facility] Last Admin: 03/22/18 10:24 Dose: 20 mg Potassium Chloride (Klor-Con 10) 20 meq PO BRK [facility] Last Admin: 03/22/18 10:24 Dose: 20 meq Quetiapine Fumarate (Seroquel Xr) 100 mg PO HS [facility]; Protocol Last Admin: 03/22/18 23:04 Dose: 100 mg Silver Sulfadiazine (Silvadene 1% 25 Gm) 1 gm TP BID [facility] Last Admin: 03/22/18 18:03 Dose: 1 gm Tizanidine HCl (Zanaflex) 2 mg PO Q6 [facility] Last Admin: 03/23/18 06:36 Dose: 2 mg - Labs Labs: 03/22/18 07:15 03/22/18 07:15 PT 25.0 SECONDS (9.4-12.5) H 03/21/18 00:23 INR 2.16 03/21/18 00:23 APTT 35.8 Seconds (25.1-36.5) 03/21/18 00:23 Attending/Attestation - Attestation I have personally seen and examined this patient.: Yes I have fully participated in the care of the patient.: Yes I have reviewed all pertinent clinical information, including history, physical exam and plan: Yes
[2018-03-23 07:54] LABS: INR 1.63; PROTHROMBIN TIME 18.9 SECONDS (9.4-12.5)
--- NOTE | 2018-03-23 08:07 | CP.PCM.PN ---
Subjective - Date & Time of Evaluation Date of Evaluation: 03/23/18 Time of Evaluation: 07:45 - Subjective Subjective: Lying in bed,easily awaken, no distress Reason for consultation and follow up: Cardiac evaluation of coronary artery disease, post op follow up of I & D of left foot abscess Seen and examined by me and Dr. Anton Objective - Vital Signs/Intake and Output Vital Signs (last 24 hours): Temp Pulse Resp BP Pulse Ox 98.6 F 84 19 153/86 H 96 03/22/18 22:09 03/23/18 02:00 03/22/18 22:09 03/22/18 22:09 03/22/18 22:09 - Medications Medications: Current Medications Acetaminophen (Tylenol 325mg Tab) 650 mg PO Q6H PRN PRN Reason: Pain, moderate (4-7) Last Admin: 03/21/18 18:08 Dose: 650 mg Albuterol/Ipratropium (Duoneb 3 Mg/0.5 Mg (3 Ml) Ud) 3 ml IH [id number] [facility] Last Admin: 03/23/18 03:55 Dose: 3 ml Albuterol/Ipratropium (Duoneb 3 Mg/0.5 Mg (3 Ml) Ud) 3 ml IH [id number] PRN PRN Reason: Shortness of Breath Allopurinol (Zyloprim) 100 mg PO DAILY [facility] Last Admin: 03/22/18 10:25 Dose: 100 mg Aspirin (Ecotrin) 81 mg PO DAILY [facility] Last Admin: 03/22/18 10:24 Dose: 81 mg Atorvastatin Calcium (Lipitor) 20 mg PO DAILY [facility] Last Admin: 03/18/18 09:50 Dose: 20 mg Calcium Acetate (Phoslo) 1,334 mg PO WM [facility] Last Admin: 03/22/18 18:06 Dose: 1,334 mg Hydralazine HCl (Apresoline) 25 mg PO BID [facility] Last Admin: 03/22/18 18:06 Dose: 25 mg Meropenem/Sodium Chloride (Merrem Iv 500 Mg/Ns 50 Ml) 500 mg in 50 mls @ 100 mls/hr IVPB Q12 [facility]; Protocol Stop: 03/23/18 22:01 Last Admin: 03/22/18 23:02 Dose: 100 mls/hr Insulin Detemir (Levemir) 20 unit SC HS [facility] Last Admin: 03/22/18 23:01 Dose: 20 unit Insulin Human Lispro (Humalog Med) 0 units SC ACHS [facility] Last Admin: 03/22/18 23:04 Dose: Not Given Metoprolol Tartrate (Lopressor) 25 mg PO BID [facility] Last Admin: 03/22/18 18:05 Dose: 25 mg Montelukast Sodium (Singulair) [address] [facility] Last Admin: 03/22/18 23:03 Dose: 10 mg Home Med - Fluvoxamine [Luvox] 25 Mg 25 mg PO BID [facility] Last Admin: 03/22/18 18:07 Dose: Not Given Home Med - Umeclidinium [place] [Incruse Ellipta] 1 Puff 1 puff IH [facility] Last Admin: 03/22/18 21:43 Dose: Not Given Nortriptyline HCl (Pamelor) 50 mg PO [facility] Last Admin: 03/22/18 23:03 Dose: 50 mg Oxychlorosene Sodium (Clorpactin Wcs-90) 2 gm TOP Q12 [facility] Last Admin: 03/22/18 23:01 Dose: 2 gm Oxychlorosene Sodium (Clorpactin Wcs-90) 2 gm TOP DAILY [facility] Oxymetazoline HCl (Afrin 0.05%) 0 ml NS TID [facility] Last Admin: 03/22/18 18:02 Dose: 1 spray Pantoprazole Sodium (Protonix Ec Tab) 20 mg PO ACB [facility] Last Admin: 03/22/18 10:24 Dose: 20 mg Potassium Chloride (Klor-Con 10) 20 meq PO BRK [facility] Last Admin: 03/22/18 10:24 Dose: 20 meq Quetiapine Fumarate (Seroquel Xr) [address] [facility]; Protocol Last Admin: 03/22/18 23:04 Dose: 100 mg Silver Sulfadiazine (Silvadene 1% 25 Gm) 1 gm TP BID [facility] Last Admin: 03/22/18 18:03 Dose: 1 gm Tizanidine HCl (Zanaflex) 2 mg PO Q6 [facility] Last Admin: 03/23/18 06:36 Dose: 2 mg - Labs Labs: 03/22/18 07:15 03/22/18 07:15 PT 18.9 SECONDS (9.4-12.5) H 03/23/18 06:40 INR 1.63 03/23/18 06:40 APTT 35.8 Seconds (25.1-36.5) 03/21/18 00:23 - Constitutional Appears: Non-toxic, No Acute Distress - Head Exam Head Exam: NORMAL INSPECTION, NORMOCEPHALIC - Eye Exam Eye Exam: Normal appearance Pupil Exam: NORMAL ACCOMODATION - ENT Exam ENT Exam: Mucous Membranes Moist, Normal Exam - Respiratory Exam Respiratory Exam: Clear to Ausculation Bilateral, NORMAL BREATHING PATTERN - Cardiovascular Exam Cardiovascular Exam: +S1, +S2 - GI/Abdominal Exam GI & Abdominal Exam: Soft, Normal Bowel Sounds - Exam Additional comments: chatman catheter ESRD on hemodialysis - Extremities Exam Additional comments: left foot dressing intact - Neurological Exam Neurological Exam: Alert, Awake, Oriented x3 - Psychiatric Exam Psychiatric exam: Normal Affect, Normal Mood - Skin Skin Exam: Dry, Normal Color, Warm Assessment and Plan - Assessment and Plan (Free Text) Assessment: A 57 year old female who came in to the ER due to left foot swelling. History of coronary artery disease post stents on 02/2013. COPD, obesity, fibromyalgia, HTN, CHF, DM, Diabetic neuropathy, Charcot foot, kidney disease, endometriosis, cellulitis of lower extremities. ESRD on hemodialysis. Had I & D of left foot. Wound positive for Staphyloccoccus aureaus. On IV antibiotics, on contact is olation. Post blood transfusion with hemodialysis for low H/H. Plavix discontinued.On contact isolation for wound Staphyloccoccus aureaus Hyperbaric treatment for left foot wound Plan: No distress Denies chest pain or shortness of breath Stable heart rate Cardiac status stable Discontinued Plavix and Aspirin On contact isolation for wound Staphyloccoccus aureaus Hyperbaric treatment for left foot wound Lipitor 20 mg daily,Lopressor 25 mg BID, Hydralazine 25 mg BID Potassium Chloride 20 meq daily Continue antibiotics as per ID Chest X ray done-moderate vascular and interstitial congestion Went for hemodialysis, pulled 2.5 liters Continue current treatment Continue current medications Chart reviewed Will follow up Plan and treatment discussed with Dr. Anton
[2018-03-23 08:40] LABS: ALB/GLOB RATIO 0.7 (1.1-1.8); ALBUMIN 2.8 g/dL (3.0-4.8); CALCIUM 8.6 mg/dL (8.4-10.5)
--- NOTE | 2018-03-23 08:42 | CP.PCM.PN ---
<Rupert Wall - Last Filed: 03/23/18 08:38> Subjective - Date & Time of Evaluation Date of Evaluation: 03/23/18 Time of Evaluation: 08:38 - Subjective Subjective: Podiatry progress note for Dr. Little 57 y/o female patient was seen and evaluated at bedside with Dr. Little. Appears to be resting comfortably. Patient denies any pedal complaints at this time. Patent reports no pain in her left foot. Denies N/V/F/C/CP. Objective - Vital Signs/Intake and Output Vital Signs (last 24 hours): Temp Pulse Resp BP Pulse Ox 98.6 F 84 19 153/86 H 96 03/22/18 22:09 03/23/18 02:00 03/22/18 22:09 03/22/18 22:09 03/22/18 22:09 - Medications Medications: Current Medications Acetaminophen (Tylenol 325mg Tab) 650 mg PO Q6H PRN PRN Reason: Pain, moderate (4-7) Last Admin: 03/21/18 18:08 Dose: 650 mg Albuterol/Ipratropium (Duoneb 3 Mg/0.5 Mg (3 Ml) Ud) 3 ml IH [id number] [facility] Last Admin: 03/23/18 03:55 Dose: 3 ml Albuterol/Ipratropium (Duoneb 3 Mg/0.5 Mg (3 Ml) Ud) 3 ml IH [id number] PRN PRN Reason: Shortness of Breath Allopurinol (Zyloprim) 100 mg PO DAILY [facility] Last Admin: 03/22/18 10:25 Dose: 100 mg Aspirin (Ecotrin) 81 mg PO DAILY [facility] Last Admin: 03/22/18 10:24 Dose: 81 mg Atorvastatin Calcium (Lipitor) 20 mg PO DAILY [facility] Last Admin: 03/18/18 09:50 Dose: 20 mg Calcium Acetate (Phoslo) 1,334 mg PO WM [facility] Last Admin: 03/22/18 18:06 Dose: 1,334 mg Hydralazine HCl (Apresoline) 25 mg PO BID [facility] Last Admin: 03/22/18 18:06 Dose: 25 mg Meropenem/Sodium Chloride (Merrem Iv 500 Mg/Ns 50 Ml) 500 mg in 50 mls @ 100 mls/hr IVPB Q12 [facility]; Protocol Stop: 03/23/18 22:01 Last Admin: 03/22/18 23:02 Dose: 100 mls/hr Insulin Detemir (Levemir) 20 unit SC [facility] Last Admin: 03/22/18 23:01 Dose: 20 unit Insulin Human Lispro (Humalog Med) 0 units SC [facility] Last Admin: 03/22/18 23:04 Dose: Not Given Metoprolol Tartrate (Lopressor) 25 mg PO BID [facility] Last Admin: 03/22/18 18:05 Dose: 25 mg Montelukast Sodium (Singulair) 10 mg PO [facility] Last Admin: 03/22/18 23:03 Dose: 10 mg Home Med - Fluvoxamine [Luvox] 25 Mg 25 mg PO BID [facility] Last Admin: 03/22/18 18:07 Dose: Not Given Home Med - Umeclidinium [place] [Incruse Ellipta] 1 Puff 1 puff IH [facility] Last Admin: 03/22/18 21:43 Dose: Not Given Nortriptyline HCl (Pamelor) 50 mg PO [facility] Last Admin: 03/22/18 23:03 Dose: 50 mg Oxychlorosene Sodium (Clorpactin Wcs-90) 2 gm TOP Q12 [facility] Last Admin: 03/22/18 23:01 Dose: 2 gm Oxychlorosene Sodium (Clorpactin Wcs-90) 2 gm TOP DAILY [facility] Oxymetazoline HCl (Afrin 0.05%) 0 ml NS TID [facility] Last Admin: 03/22/18 18:02 Dose: 1 spray Pantoprazole Sodium (Protonix Ec Tab) 20 mg PO ACB [facility] Last Admin: 03/22/18 10:24 Dose: 20 mg Potassium Chloride (Klor-Con 10) 20 meq PO BRK [facility] Last Admin: 03/22/18 10:24 Dose: 20 meq Quetiapine Fumarate (Seroquel Xr) 100 mg PO [facility]; Protocol Last Admin: 03/22/18 23:04 Dose: 100 mg Silver Sulfadiazine (Silvadene 1% 25 Gm) 1 gm TP BID [facility] Last Admin: 03/22/18 18:03 Dose: 1 gm Tizanidine HCl (Zanaflex) 2 mg PO Q6 [facility] Last Admin: 03/23/18 06:36 Dose: 2 mg - Labs Labs: 03/22/18 07:15 03/22/18 07:15 PT 18.9 SECONDS (9.4-12.5) H 03/23/18 06:40 INR 1.63 03/23/18 06:40 APTT 35.8 Seconds (25.1-36.5) 03/21/18 00:23 - Constitutional Appears: Well, Non-toxic, No Acute Distress - Head Exam Head Exam: ATRAUMATIC, NORMOCEPHALIC - Extremities Exam Additional comments: Bilateral Lower Extremity Exam VASC: palpable pedal pulses, TG warm to warm bilaterally, edema noted to all the digits with soupy, non-viable mottled tissue DERM: increasing gangrenous changes noted with non-viable tissue noted to all the digits to the level of the metatarsals with the skin peeling on the great toe, surgical incision sites to the left foot dorsally, laterally and plantarly are full thickness with granular tissue present, blisters noted to the dorsum of the foot and anterior ankle with positive serous drainage, minimal active bleeding noted, no malodor, large incision noted plantarly with devitalized tissue Right foot, stable ulceration noted to the tip of the 2nd digit - Neurological Exam Neurological Exam: Alert, Awake, Oriented x3 - Psychiatric Exam Psychiatric exam: Normal Affect, Normal Mood Assessment and Plan - Assessment and Plan (Free Text) Assessment: 57F POD 7 incision and drainage of the left foot secondary to diabetic foot abscess, causing compartment-like clinical symptoms Plan: Patient seen and evaluated at bedside with Dr. Little Chart, labs and vitals were reviewed- afebrile, WBC 17.2 (03/22) Patient dressings were changed with sterile instruments Wound was flushed with Clorpactin sterile saline solution Incisions incisions were packed with 0.25 inch packing, iodoform Wounds were then dressed with gauze, ABD and Kerlix- DO NOT APPLY MARYLU/COBAN/ANY COMPRESSION No compression has been applied at this time Patient likely to undergo Hyperbaric Oxygen Treatment to salvage the proximal foot, transmetatarsal amputation pending demarcation of gangrenous changes Podiatry will carefully continue to monitor the patient <Rodríguez Little - Last Filed: 03/23/18 09:01> Objective - Vital Signs/Intake and Output Vital Signs (last 24 hours): Temp Pulse Resp BP Pulse Ox 98.3 F 104 H 20 141/76 90 L 03/23/18 08:43 03/23/18 08:43 03/23/18 08:43 03/23/18 08:43 03/23/18 08:43 - Medications Medications: Current Medications Acetaminophen (Tylenol 325mg Tab) 650 mg PO Q6H PRN PRN Reason: Pain, moderate (4-7) Last Admin: 03/21/18 18:08 Dose: 650 mg Albuterol/Ipratropium (Duoneb 3 Mg/0.5 Mg (3 Ml) Ud) 3 ml IH [id number] [facility] Last Admin: 03/23/18 08:54 Dose: 3 ml Albuterol/Ipratropium (Duoneb 3 Mg/0.5 Mg (3 Ml) Ud) 3 ml IH [id number] PRN PRN Reason: Shortness of Breath Allopurinol (Zyloprim) 100 mg PO DAILY [facility] Last Admin: 03/22/18 10:25 Dose: 100 mg Aspirin (Ecotrin) 81 mg PO DAILY [facility] Last Admin: 03/22/18 10:24 Dose: 81 mg Atorvastatin Calcium (Lipitor) 20 mg PO DAILY [facility] Last Admin: 03/18/18 09:50 Dose: 20 mg Calcium Acetate (Phoslo) 1,334 mg PO WM [facility] Last Admin: 03/22/18 18:06 Dose: 1,334 mg Hydralazine HCl (Apresoline) 25 mg PO BID [facility] Last Admin: 03/22/18 18:06 Dose: 25 mg Meropenem/Sodium Chloride (Merrem Iv 500 Mg/Ns 50 Ml) 500 mg in 50 mls @ 100 mls/hr IVPB Q12 [facility]; Protocol Stop: 03/23/18 22:01 Last Admin: 03/22/18 23:02 Dose: 100 mls/hr Insulin Detemir (Levemir) 20 unit SC HS [facility] Last Admin: 03/22/18 23:01 Dose: 20 unit Insulin Human Lispro (Humalog Med) 0 units SC ACHS [facility] Last Admin: 03/22/18 23:04 Dose: Not Given Metoprolol Tartrate (Lopressor) 25 mg PO BID [facility] Last Admin: 03/22/18 18:05 Dose: 25 mg Montelukast Sodium (Singulair) 10 mg PO [facility] Last Admin: 03/22/18 23:03 Dose: 10 mg Home Med - Fluvoxamine [Luvox] 25 Mg 25 mg PO BID [facility] Last Admin: 03/22/18 18:07 Dose: Not Given Home Med - Umeclidinium [place] [Incruse Ellipta] 1 Puff 1 puff IH HS [facility] Last Admin: 03/22/18 21:43 Dose: Not Given Nortriptyline HCl (Pamelor) 50 mg PO HS [facility] Last Admin: 03/22/18 23:03 Dose: 50 mg Oxychlorosene Sodium (Clorpactin Wcs-90) 2 gm TOP Q12 [facility] Last Admin: 03/22/18 23:01 Dose: 2 gm Oxychlorosene Sodium (Clorpactin Wcs-90) 2 gm TOP DAILY [facility] Oxymetazoline HCl (Afrin 0.05%) 0 ml NS TID [facility] Last Admin: 03/22/18 18:02 Dose: 1 spray Pantoprazole Sodium (Protonix Ec Tab) 20 mg PO ACB [facility] Last Admin: 03/22/18 10:24 Dose: 20 mg Potassium Chloride (Klor-Con 10) 20 meq PO BRK [facility] Last Admin: 03/22/18 10:24 Dose: 20 meq Quetiapine Fumarate (Seroquel Xr) 100 mg PO HS [facility]; Protocol Last Admin: 03/22/18 23:04 Dose: 100 mg Silver Sulfadiazine (Silvadene 1% 25 Gm) 1 gm TP BID [facility] Last Admin: 03/22/18 18:03 Dose: 1 gm Tizanidine HCl (Zanaflex) 2 mg PO Q6 [facility] Last Admin: 03/23/18 06:36 Dose: 2 mg - Labs Labs: 03/22/18 07:15 03/23/18 06:40 PT 18.9 SECONDS (9.4-12.5) H 03/23/18 06:40 INR 1.63 03/23/18 06:40 APTT 35.8 Seconds (25.1-36.5) 03/21/18 00:23 Attending/Attestation - Attestation I have personally seen and examined this patient.: Yes I have fully participated in the care of the patient.: Yes I have reviewed all pertinent clinical information, including history, physical exam and plan: Yes
[2018-03-23 09:00] LABS: HEMOGLOBIN 9.1 g/dL (12.0-16.0); MEAN CELL VOLUME 88.7 fl (80.0-105.0); RBC 3.11 10^6/uL (3.5-6.1); WHITE BLOOD COUNT 13.6 10^3/uL (4.5-11.0)
[2018-03-23 09:01] LABS: MEAN CORPUSCULAR HEMOGLOBIN 29.3 pg (25.0-35.0); MEAN PLATELET VOLUME 11.4 fl (7.0-11.0); PLATELET COUNT 210 10^3/uL (120.0-450.0); RED CELL DISTRIBUTION WIDTH 16.4 % (11.5-14.5)
[2018-03-23] MEDS: Insulin Lispro (humaLOG) MEDIUM Coverage SC SCH ×4 (09:23→22:41)
[2018-03-23] MEDS: Potassium Chloride 10 mEq ER Tab PO SCH (09:26)
[2018-03-23] MEDS: FLUVOXAMINE 25 MG PO SCH ×2 (09:26→17:26)
[2018-03-23] MEDS: Pantoprazole 20 mg EC Tab PO SCH (09:27)
[2018-03-23] MEDS ORDERED: Potassium Chloride 20 mEq ER Tab PO ONE ×2 (09:57→15:09)
--- NOTE | 2018-03-23 11:24 | PN ---
DATE: 03/23/2018 SUBJECTIVE: The patient is in bed in no acute distress, nontoxic. No fevers. No chills. She is awake and alert. She is doing better. PHYSICAL EXAMINATION: VITAL SIGNS: Temperature 98, blood pressure 150/80, respiratory rate 18. HEENT: Examination of HEENT is unremarkable. NECK: Supple. LUNGS: Decreased breath sounds. HEART: Normal S1, S2. ABDOMEN: Soft, nontender. LABORATORY DATA: Laboratory examination reveals the patient's white count of 17,200 and chemistries reveals the creatinine is 3.5.. Microbiology reveals right foot gram-positive cocci. The initial blood cultures are positive for Staph aureus, oxacillin sensitive. Review of orders reveals the patient to be on meropenem. We will continue the meropenem. We will renew the meropenem order being sure the patient gets adequate antibiotics without any interruptions. ASSESSMENT AND PLAN: The patient is a 57-year-old female with severe sepsis with a sensitive Staph aureus bacteremia secondary to left foot abscess, severe skin and skin structure infection, status post incision and drainage and had an MRI, which was negative for osteo although significant infection in a patient with chronic obstructive lung disease, restless leg syndrome, history of pneumonia, congestive heart failure, hypertension, diabetes, kidney stone, endometriosis currently on meropenem because of an ALLERGY TO CEFTAROLINE, today is day #8 of 28 days of therapy. With a weekly CBC, SMA-18, sed rate, C-reactive protein. We will follow with you. Terrance Kent MD
[2018-03-23] MEDS: MEROPENEM 500 MG in NS 500 MG/50 ML BAG IVPB SCH ×2 (11:29→21:55)
[2018-03-23 11:54] LABS: LYMPHOCYTE 4 % (22.0-35.0); MONOCYTE 4 % (1.0-6.0); MYELOCYTE 1 %; NEUTROPHIL 91 % (50.0-70.0); PLATELET ESTIMATE NORMAL (NORMAL)
--- NOTE | 2018-03-23 11:58 | PN ---
DATE: 03/23/2018 SUBJECTIVE: Cardiac evaluation for history of coronary artery disease, status post septic shock from being , status post incision and drainage, off Plavix. Patient feels a lot better. This note is an addition to dictated by nurse practitioner, Liz Jiménez. Patient is hemodynamically stable. PHYSICAL EXAMINATION VITAL SIGNS: Heart rate 104, blood pressure 141/76. History of coronary artery disease status post PTCA in the past, 02/2013, Plavix was discontinued; history of diabetic nephropathy; neuropathy; endometrial joint; foot abscess status post I and D, patient developed septic shock source being the foot, possibly of elevated INR is secondary to septic shock and shock liver, now it is trending down, INR is 1.63. RECOMMENDATIONS: We will increase metoprolol to 50 twice a day from today. Monitor closely. We will follow with you. Thank you Dr. Zhu for providing us the opportunity in taking care of the patient, Ashley Mallory. We will follow with you. Discussed with Dr. Little that we will discontinue Plavix and if further intervention for the foot needs, patient can go ahead and do it with a moderate risk. It will be underlying comorbidity, but no absolute contraindications. Stephanie Anton MD
--- NOTE | 2018-03-23 15:17 | PN ---
DATE: 03/23/2018 SUBJECTIVE: The patient is 57 years old, seen and examined. She stated chest congestion is much better, but still coughing. Eating and tolerating. PHYSICAL EXAMINATION: VITAL SIGNS: She is afebrile, pulse 104, respirations 20, blood pressure 141/76. LUNGS: Bilateral fair air flow, few respiratory rhonchi. HEART: S1 and S2 audible. ABDOMEN: Soft, nontender. No rebound, no guarding. NEUROLOGICAL: The patient is awake, alert, oriented, communicative. EXTREMITIES: Left foot is in dressing, has purplish discoloration of her toes. LABORATORY DATA: WBC 13.6, hemoglobin 9.1, hematocrit 27.6, platelets 210. Chemistry: Sodium 138, potassium 3.2, chloride 99, CO2 of 28, BUN 55, creatinine 3.2, blood sugar 297. ASSESSMENT: 1. Status post left foot abscess, status post incision and drainage. Currently getting hyperbaric treatment. 2. Acute on chronic renal failure, had dialysis yesterday. 3. Insulin dependent diabetes. PLAN: I will discontinue Afrin, no more nosebleed. Continue nebulizer treatment, continue her on aspirin. Potassium is supplemented. Continue on Levemir. She is on meropenem. Her blood sugars seem to be running high, I will add Humalog prior to breakfast and dinner and monitor the blood sugar. We will continue hyperbaric treatment and continue monitoring. We will discuss with Infectious Disease for the duration of antibiotics and maybe make a discharge plan either to subacute rehab or . Colt Zhu MD
[2018-03-23] MEDS: Insulin Lispro (humaLOG) MIX 75/25(10 ml) SC SCH (17:43)
--- NOTE | 2018-03-23 18:07 | PN ---
DATE: 03/23/2018 SUBJECTIVE: The patient is seen lying in bed. She is awake, she is alert, she is comfortable. She reports feeling much better after ultrafiltration yesterday. She is lying flat. She denies any shortness of breath today. PHYSICAL EXAMINATION: GENERAL Middle-aged lady lying in bed. VITAL SIGNS: Blood pressure 141/76, heart rate 98, respiratory rate 20, and temperature 98.3. HEENT: Normocephalic, atraumatic, positive pallor. NECK: Supple, no JVD. LUNGS Bilateral equal entry, bilateral equal expansion. CARDIAC: S1 and S2 regular rate and rhythm, no murmur, no rub. ABDOMEN: Obese, distended, soft, nontender, bowel sounds present. EXTREMITIES: Dressing of the left foot. INTAKE AND OUTPUT: Not charted. LABORATORY DATA: WBC 13.6, hemoglobin 9, hematocrit 27.6, platelets 210. Sodium 138, potassium 3.2, chloride 99, CO2 28, BUN 55, air entry 0.2, glucose 337, calcium 8.6, AST 25, ALT 28. Wound culture grew Staphylococcus aureus. CURRENT MEDICATIONS: Apresoline 25 b.i.d., DuoNeb, Ecotrin, insulin, potassium 10 mEq, Lopressor 50 b.i.d., Merrem 500 every 12 hours, nortriptyline 50 mg at bedtime, PhosLo 2 tablets with each meal, Protonix, Seroquel, Silvadene, tizanidine, and allopurinol. IMPRESSION: 1. Acute kidney injury superimposed on chronic kidney disease stage III, required dialysis, nonoliguric acute renal failure. Improvement in renal parameters. 2. Status post severe sepsis secondary to left foot abscess, staph infection, staph bacteremia. 3. Severe anemia. 4. Hypokalemia. 5. Volume overload. 6. Chronic obstructive pulmonary disease exacerbation. PLAN: 1. Replete potassium, give potassium 40 mEq p.o. x1 dose now. 2. The patient had significant clinical improvement after ultrafiltration, we will start her on Lasix 40 mg p.o. daily. 3. Monitor electrolytes closely. 4. Monitor daily intake and output. 5. Continue antibiotics. 6. Dose all antibiotics for creatinine clearance 30 ml per minute. Elva Frank MD [facility] # [id number]
[2018-03-23] MEDS: QUEtiapine 50 mg XR Tab PO SCH (21:47)
[2018-03-23] MEDS: Insulin Detemir 100 units/ml Vial (Levemir) SC SCH (21:47)
[2018-03-24] MEDS: Albuterol-Ipratrop 3 mg / 0.5 (3 ml) UD IH SCH ×7 (01:19→23:36)
[2018-03-24 06:57] LABS: BASO # 0.02 K/mm3 (0.0-2.0); BASO % 0.2 % (0.0-3.0); EOS # 0.2 (0.0-0.7); EOS % 1.2 % (1.5-5.0); GRAN # 10.64 (1.4-6.5); GRAN % 85.5 % (50.0-68.0); HEMOGLOBIN 8.6 g/dL (12.0-16.0); LYMPH # 1.1 (1.2-3.4); LYMPH % 8.6 % (22.0-35.0); MEAN CELL VOLUME 88.3 fl (80.0-105.0); MEAN CORPUSCULAR HEMOGLOBIN 28.8 pg (25.0-35.0); MEAN CORPUSCULAR HGB CONC 32.6 g/dl (31.0-37.0); MEAN PLATELET VOLUME 10.4 fl (7.0-11.0); MONO # 0.6 (0.1-0.6); MONO % 4.5 % (1.0-6.0); RBC 2.99 10^6/uL (3.5-6.1); RED CELL DISTRIBUTION WIDTH 16.1 % (11.5-14.5); WHITE BLOOD COUNT 12.4 10^3/uL (4.5-11.0)
[2018-03-24 07:05] LABS: ALB/GLOB RATIO 0.7 (1.1-1.8); ALBUMIN 2.7 g/dL (3.0-4.8); CALCIUM 8.8 mg/dL (8.4-10.5)
--- NOTE | 2018-03-24 07:20 | CP.PCM.PN ---
Subjective - Date & Time of Evaluation Date of Evaluation: 03/24/18 Time of Evaluation: 06:25 - Subjective Subjective: No distress, lying in bed, easily awaken, Reason for consultation and follow up: Cardiac evaluation of coronary artery disease, post op follow up of I & D of left foot abscess Seen and examined by me and Dr. Anton Objective - Vital Signs/Intake and Output Vital Signs (last 24 hours): Temp Pulse Resp BP Pulse Ox 97.9 F 94 H 19 148/61 90 L 03/23/18 16:57 03/23/18 22:00 03/23/18 16:57 03/23/18 17:33 03/23/18 08:43 Intake and Output: 03/24/18 03/24/18 06:59 18:59 Intake Total 660 Output Total 1200 Balance -540 - Medications Medications: Current Medications Acetaminophen (Tylenol 325mg Tab) 650 mg PO Q6H PRN PRN Reason: Pain, moderate (4-7) Last Admin: 03/21/18 18:08 Dose: 650 mg Albuterol/Ipratropium (Duoneb 3 Mg/0.5 Mg (3 Ml) Ud) 3 ml IH [id number] [facility] Last Admin: 03/24/18 04:05 Dose: 3 ml Albuterol/Ipratropium (Duoneb 3 Mg/0.5 Mg (3 Ml) Ud) 3 ml IH [id number] PRN PRN Reason: Shortness of Breath Allopurinol (Zyloprim) 100 mg PO DAILY [facility] Last Admin: 03/23/18 09:27 Dose: 100 mg Aspirin (Ecotrin) 81 mg PO DAILY [facility] Last Admin: 03/23/18 09:25 Dose: 81 mg Atorvastatin Calcium (Lipitor) 20 mg PO DAILY [facility] Last Admin: 03/18/18 09:50 Dose: 20 mg Calcium Acetate (Phoslo) 1,334 mg PO WM [facility] Last Admin: 03/23/18 17:35 Dose: 1,334 mg Furosemide (Lasix) 40 mg PO DAILY [facility] Hydralazine HCl (Apresoline) 25 mg PO BID [facility] Last Admin: 03/23/18 17:32 Dose: 25 mg Insulin Detemir (Levemir) 20 unit SC HS [facility] Last Admin: 03/23/18 21:47 Dose: 20 unit Insulin Human Lispro (Humalog Med) 0 units SC ACHS [facility] Last Admin: 03/23/18 22:41 Dose: Not Given Insulin Lispro Protam/Lispro Human (Humalog Mix 75/25) 10 units SC ACBD [facility] Last Admin: 03/23/18 17:43 Dose: 10 units Metoprolol Tartrate (Lopressor) 50 mg PO BID [facility] Last Admin: 03/23/18 17:33 Dose: 50 mg Montelukast Sodium (Singulair) 10 mg PO [facility] Last Admin: 03/23/18 21:47 Dose: 10 mg Home Med - Fluvoxamine [Luvox] 25 Mg 25 mg PO BID [facility] Last Admin: 03/23/18 17:26 Dose: Not Given Home Med - Umeclidinium [place] [Incruse Ellipta] 1 Puff 1 puff IH [facility] Last Admin: 03/22/18 21:43 Dose: Not Given Nortriptyline HCl (Pamelor) 50 mg PO [facility] Last Admin: 03/23/18 21:46 Dose: 50 mg Oxychlorosene Sodium (Clorpactin Wcs-90) 2 gm TOP Q12 [facility] Last Admin: 03/22/18 23:01 Dose: 2 gm Oxychlorosene Sodium (Clorpactin Wcs-90) 2 gm TOP DAILY [facility] Pantoprazole Sodium (Protonix Ec Tab) 20 mg PO ACB [facility] Last Admin: 03/23/18 09:27 Dose: 20 mg Potassium Chloride (Klor-Con 10) 20 meq PO BRK [facility] Last Admin: 03/23/18 09:26 Dose: 20 meq Potassium Chloride (K-Dur 20 Meq Er Tab) 20 meq PO BRK [facility] Quetiapine Fumarate (Seroquel Xr) 100 mg PO [facility]; Protocol Last Admin: 03/23/18 21:47 Dose: 100 mg Silver Sulfadiazine (Silvadene 1% 25 Gm) 1 gm TP BID [facility] Last Admin: 03/22/18 18:03 Dose: 1 gm Tizanidine HCl (Zanaflex) 2 mg PO Q6 [facility] Last Admin: 03/24/18 06:33 Dose: 2 mg - Labs Labs: 03/24/18 06:40 03/24/18 06:40 PT 18.9 SECONDS (9.4-12.5) H 03/23/18 06:40 INR 1.63 03/23/18 06:40 APTT 35.8 Seconds (25.1-36.5) 03/21/18 00:23 - Constitutional Appears: Non-toxic, No Acute Distress - Head Exam Head Exam: NORMAL INSPECTION, NORMOCEPHALIC - Eye Exam Eye Exam: Normal appearance Pupil Exam: NORMAL ACCOMODATION - ENT Exam ENT Exam: Mucous Membranes Moist, Normal Exam - Respiratory Exam Respiratory Exam: Decreased Breath Sounds, Rhonchi, NORMAL BREATHING PATTERN - Cardiovascular Exam Cardiovascular Exam: +S1, +S2 - GI/Abdominal Exam GI & Abdominal Exam: Soft, Normal Bowel Sounds - Extremities Exam Additional comments: left foot dressing - Neurological Exam Neurological Exam: Alert, Awake, Oriented x3 - Psychiatric Exam Psychiatric exam: Normal Affect, Normal Mood - Skin Skin Exam: Dry, Normal Color, Warm Assessment and Plan - Assessment and Plan (Free Text) Assessment: A 57 year old female who came in to the ER due to left foot swelling. History of coronary artery disease post stents on 02/2013. COPD, obesity, fibromyalgia, HTN, CHF, DM, Diabetic neuropathy, Charcot foot, kidney disease, endometriosis, cellulitis of lower extremities. ESRD on hemodialysis. Had I & D of left foot. Wound positive for Staphyloccoccus aureaus. On IV antibiotics, on contact isolation. Post blood transfusion with hemodialysis for low H/H. Plavix discontinued.On contact isolation for wound Staphyloccoccus aureaus. Hyperbaric treatment for left foot wound,Discontinued Plavix and Aspirin. Plan: Denies chest pain or shortness of breath,No distress, Heart rate- tachycardia 100's, increased Lopressor yesterday Cardiac status stable Lipitor 20 mg daily,Lopressor 50 mg BID, Hydralazine 25 mg BID Potassium Chloride 20 meq daily Continue antibiotics as per ID Podiatry on consult Continue current treatment Continue current medications Chart reviewed Will follow up Plan and treatment discussed with Dr. Anton
[2018-03-24] MEDS: Insulin Lispro (humaLOG) MEDIUM Coverage SC SCH ×4 (08:46→21:18)
[2018-03-24] MEDS: Insulin Lispro (humaLOG) MIX 75/25(10 ml) SC SCH ×2 (08:46→17:47)
[2018-03-24] MEDS: Potassium Chloride 10 mEq ER Tab PO SCH (08:48)
[2018-03-24] MEDS: Potassium Chloride 20 mEq ER Tab PO SCH (08:49)
[2018-03-24] MEDS ORDERED: Potassium Chloride 20 mEq ER Tab PO ONE ×2 (10:09→18:46)
[2018-03-24] MEDS: FLUVOXAMINE 25 MG PO SCH ×2 (11:07→17:46)
[2018-03-24] MEDS: Pantoprazole 20 mg EC Tab PO SCH (11:22)
--- NOTE | 2018-03-24 14:28 | PN ---
DATE: 03/24/2018 REASON FOR CONSULTATION AND FOLLOWUP: Cardiac evaluation for coronary artery disease, admitted with septic shock, source being the left foot. SUBJECTIVE: The patient feels a lot better. This note is an addition to dictated by nurse practitioner. The patient is off Plavix . History of diabetes, hypertension, hyperlipidemia, end-stage renal disease, on dialysis, last dialysis on Sunday. History of Staph aureus wound infection left foot status post ID debridement. RECOMMENDATION: Continue broad spectrum antibiotics. Started beta bev yesterday. Continue hydralazine 25 p.o. b.i.d. Continue gentle Lasix. Continue atorvastatin. Continue 50 of metoprolol. Plavix is discontinued, continue aspirin. We will repeat PT INR tomorrow, but most likely the elevated PT/INR is secondary to sepsis and shock liver. The patient is not on anticoagulation. Thank you for providing us the opportunity in taking care of the patient, Ashley Mallory. Stephanie Anton MD
--- NOTE | 2018-03-24 14:54 | CP.PCM.PN ---
<Rupert Wall - Last Filed: 03/24/18 14:50> Subjective - Date & Time of Evaluation Date of Evaluation: 03/24/18 Time of Evaluation: 14:50 - Subjective Subjective: Podiatry progress note for Dr. Bills 57F seen at bedside. Resting comfortably. Patient denies any pedal complaints at this time. Patent reports no pain in her left foot. Reports better spirits than yesterday and appears more less lethargic and more alert today. is bedside. Reports shortness of breath. Denies N/V/F/C/CP. Objective - Vital Signs/Intake and Output Vital Signs (last 24 hours): Temp Pulse Resp BP Pulse Ox 98.5 F 75 20 130/78 94 L 03/24/18 08:04 03/24/18 11:14 03/24/18 08:04 03/24/18 11:14 03/24/18 08:04 Intake and Output: 03/24/18 03/24/18 06:59 18:59 Intake Total 1310 Output Total 2300 Balance -990 - Medications Medications: Current Medications Acetaminophen (Tylenol 325mg Tab) 650 mg PO Q6H PRN PRN Reason: Pain, moderate (4-7) Last Admin: 03/21/18 18:08 Dose: 650 mg Albuterol/Ipratropium (Duoneb 3 Mg/0.5 Mg (3 Ml) Ud) 3 ml IH [id number] [facility] Last Admin: 03/24/18 11:19 Dose: 3 ml Albuterol/Ipratropium (Duoneb 3 Mg/0.5 Mg (3 Ml) Ud) 3 ml IH [id number] PRN PRN Reason: Shortness of Breath Allopurinol (Zyloprim) 100 mg PO DAILY [facility] Last Admin: 03/24/18 11:15 Dose: 100 mg Aspirin (Ecotrin) 81 mg PO DAILY [facility] Last Admin: 03/24/18 11:13 Dose: 81 mg Atorvastatin Calcium (Lipitor) 20 mg PO DAILY [facility] Last Admin: 03/18/18 09:50 Dose: 20 mg Calcium Acetate (Phoslo) 1,334 mg PO WM [facility] Last Admin: 03/24/18 11:15 Dose: 1,334 mg Furosemide (Lasix) 40 mg PO DAILY [facility] Last Admin: 03/24/18 11:14 Dose: 40 mg Hydralazine HCl (Apresoline) 25 mg PO BID [facility] Last Admin: 03/24/18 11:22 Dose: 25 mg Insulin Detemir (Levemir) 20 unit SC [facility] Last Admin: 03/23/18 21:47 Dose: 20 unit Insulin Human Lispro (Humalog Med) 0 units SC ACHS [facility] Last Admin: 03/24/18 13:02 Dose: 1 units Insulin Lispro Protam/Lispro Human (Humalog Mix 75/25) 10 units SC ACBD [facility] Last Admin: 03/24/18 08:46 Dose: 10 units Metoprolol Tartrate (Lopressor) 50 mg PO BID [facility] Last Admin: 03/24/18 11:14 Dose: 50 mg Montelukast Sodium (Singulair) 10 mg PO [facility] Last Admin: 03/23/18 21:47 Dose: 10 mg Home Med - Fluvoxamine [Luvox] 25 Mg 25 mg PO BID [facility] Last Admin: 03/24/18 11:07 Dose: Not Given Home Med - Umeclidinium [place] [Incruse Ellipta] 1 Puff 1 puff [facility] Last Admin: 03/22/18 21:43 Dose: Not Given Nortriptyline HCl (Pamelor) 50 mg PO [facility] Last Admin: 03/23/18 21:46 Dose: 50 mg Oxychlorosene Sodium (Clorpactin Wcs-90) 2 gm TOP Q12 [facility] Last Admin: 03/22/18 23:01 Dose: 2 gm Oxychlorosene Sodium (Clorpactin Wcs-90) 2 gm TOP DAILY [facility] Pantoprazole Sodium (Protonix Ec Tab) 20 mg PO ACB [facility] Last Admin: 03/24/18 11:22 Dose: 20 mg Potassium Chloride (Klor-Con 10) 20 meq PO BRK [facility] Last Admin: 03/24/18 08:48 Dose: 20 meq Potassium Chloride (K-Dur 20 Meq Er Tab) 20 meq PO BRK [facility] Last Admin: 03/24/18 08:49 Dose: 20 meq Quetiapine Fumarate (Seroquel Xr) 100 mg PO [facility]; Protocol Last Admin: 03/23/18 21:47 Dose: 100 mg Silver Sulfadiazine (Silvadene 1% 25 Gm) 1 gm TP BID [facility] Last Admin: 03/22/18 18:03 Dose: 1 gm Tizanidine HCl (Zanaflex) 2 mg PO Q6 [facility] Last Admin: 03/24/18 11:15 Dose: 2 mg - Labs Labs: 03/24/18 06:40 03/24/18 06:40 PT 18.9 SECONDS (9.4-12.5) H 03/23/18 06:40 INR 1.63 03/23/18 06:40 APTT 35.8 Seconds (25.1-36.5) 03/21/18 00:23 - Constitutional Appears: Well, Non-toxic, No Acute Distress - Head Exam Head Exam: ATRAUMATIC, NORMOCEPHALIC - Extremities Exam Additional comments: Bilateral Lower Extremity Exam VASC: palpable pedal pulses, TG warm to warm bilaterally, edema noted to all the digits with soupy, non-viable mottled tissue DERM: increasing gangrenous changes noted with non-viable tissue noted to all the digits to the level of the metatarsals with the skin peeling on the great toe, surgical incision sites to the left foot dorsally, laterally and plantarly are full thickness with granular tissue present, blisters noted to the dorsum of the foot and anterior ankle with positive serous drainage, minimal active bleeding noted, no malodor, large incision noted plantarly with devitalized tissue Right foot, stable ulceration noted to the tip of the 2nd digit - Neurological Exam Neurological Exam: Alert, Awake, Oriented x3 - Psychiatric Exam Psychiatric exam: Normal Affect, Normal Mood Assessment and Plan - Assessment and Plan (Free Text) Assessment: 57F POD 8 incision and drainage of the left foot secondary to diabetic foot abscess, causing compartment-like clinical symptoms Plan: Patient seen and evaluated at bedside Discussed in detail with Dr. Bills Afebrile, WBC 12.4 Patient dressings were changed with sterile instruments Wound was flushed with Clorpactin sterile saline solution Incisions incisions were packed with 0.25 inch packing, iodoform Wounds were then dressed with gauze, ABD and Kerlix- DO NOT APPLY MARYLU/COBAN/ANY COMPRESSION No compression has been applied at this time Patient likely to undergo Hyperbaric Oxygen Treatment to salvage the proximal foot, transmetatarsal amputation pending demarcation of gangrenous changes Podiatry will carefully continue to monitor the patient <Dworkin,Guillermina K - Last Filed: 03/29/18 15:21> Objective - Vital Signs/Intake and Output Vital Signs (last 24 hours): Temp Pulse Resp BP Pulse Ox 97.7 F 97 H 20 121/68 94 L 03/29/18 06:00 03/29/18 12:24 03/29/18 06:00 03/29/18 12:24 03/29/18 06:00 Intake and Output: 03/29/18 03/29/18 06:59 18:59 Intake Total 480 Output Total 1150 Balance -670 - Medications Medications: Current Medications Albuterol/Ipratropium (Duoneb 3 Mg/0.5 Mg (3 Ml) Ud) 3 ml IH [id number] [facility] Last Admin: 03/29/18 11:22 Dose: Not Given Albuterol/Ipratropium (Duoneb 3 Mg/0.5 Mg (3 Ml) Ud) 3 ml IH [id number] PRN PRN Reason: Shortness of Breath Last Admin: 03/26/18 17:16 Dose: 3 ml Allopurinol (Zyloprim) 100 mg PO DAILY [facility] Last Admin: 03/29/18 12:28 Dose: 100 mg Aspirin (Ecotrin) 81 mg PO DAILY [facility] Last Admin: 03/29/18 12:21 Dose: 81 mg Atorvastatin Calcium (Lipitor) 20 mg PO DAILY [facility] Last Admin: 03/18/18 09:50 Dose: 20 mg Calcium Acetate (Phoslo) 1,334 mg PO WM [facility] Last Admin: 03/29/18 12:26 Dose: 1,334 mg Furosemide (Lasix) 40 mg PO DAILY [facility] Last Admin: 03/29/18 12:24 Dose: 40 mg Hydralazine HCl (Apresoline) 25 mg PO BID [facility] Last Admin: 03/29/18 12:20 Dose: 25 mg Hydromorphone HCl (Dilaudid) 2 mg IVP Q4H PRN PRN Reason: Pain, severe (8-10) Last Admin: 03/29/18 00:38 Dose: 2 mg Meropenem/Sodium Chloride (Merrem Iv 500 Mg/Ns 50 Ml) 500 mg in 50 mls @ 100 mls/hr IVPB Q12 [facility]; Protocol Stop: 04/03/18 15:34 Last Admin: 03/29/18 12:25 Dose: 100 mls/hr Insulin Detemir (Levemir) 20 unit SC HS [facility] Last Admin: 03/28/18 21:25 Dose: 20 unit Insulin Human Lispro (Humalog Med) 0 units SC ACHS [facility] Last Admin: 03/29/18 12:21 Dose: 1 units Insulin Lispro Protam/Lispro Human (Humalog Mix 75/25) 18 units SC ACBD [facility] Last Admin: 03/29/18 12:22 Dose: 18 units Metoprolol Tartrate (Lopressor) 50 mg PO BID [facility] Last Admin: 03/29/18 12:24 Dose: 50 mg Montelukast Sodium (Singulair) 10 mg PO [facility] Last Admin: 03/28/18 21:25 Dose: 10 mg Home Med - Fluvoxamine [Luvox] 25 Mg 25 mg PO BID [facility] Last Admin: 03/29/18 12:21 Dose: Not Given Home Med - Umeclidinium [place] [Incruse Ellipta] 1 Puff 1 puff IH [facility] Last Admin: 03/28/18 22:00 Dose: Not Given Nortriptyline HCl (Pamelor) 50 mg PO [facility] Last Admin: 03/28/18 21:25 Dose: 50 mg Oxychlorosene Sodium (Clorpactin Wcs-90) 2 gm TOP Q12 [facility] Last Admin: 03/29/18 12:20 Dose: Not Given Oxychlorosene Sodium (Clorpactin Wcs-90) 2 gm TOP DAILY [facility] Last Admin: 03/29/18 12:21 Dose: Not Given Pantoprazole Sodium (Protonix Ec Tab) 20 mg PO ACB [facility] Last Admin: 03/29/18 12:27 Dose: 20 mg Potassium Chloride (Klor-Con 10) 20 meq PO BRK [facility] Last Admin: 03/29/18 12:23 Dose: 20 meq Potassium Chloride (K-Dur 20 Meq Er Tab) 20 meq PO BRK [facility] Last Admin: 03/29/18 12:23 Dose: 20 meq Prednisone (Prednisone Tab) 10 mg PO DAILY [facility] Last Admin: 03/29/18 12:27 Dose: 10 mg Quetiapine Fumarate (Seroquel Xr) 100 mg PO [facility]; Protocol Last Admin: 03/28/18 21:24 Dose: 100 mg Silver Sulfadiazine (Silvadene 1% 25 Gm) 1 gm TP BID [facility] Last Admin: 03/29/18 12:27 Dose: Not Given Tizanidine HCl (Zanaflex) 2 mg PO Q6 [facility] Last Admin: 03/29/18 12:27 Dose: 2 mg - Labs Labs: 03/29/18 07:14 03/29/18 07:14 PT 15.0 SECONDS (9.4-12.5) H 03/29/18 07:14 INR 1.30 03/29/18 07:14 APTT 35.8 Seconds (25.1-36.5) 03/21/18 00:23 Attending/Attestation - Attestation I have personally seen and examined this patient.: Yes I have fully participated in the care of the patient.: Yes I have reviewed all pertinent clinical information, including history, physical exam and plan: Yes Notes (Text): 03/29/18 15:20 pt seen for limb threatening infection of her left foot; s/p I&D and septic shock; foot is dysvascular at forefoot area despite good circulation with no oc clusions and normal waveforms; discuss with pt the severity of her infection; pt is somewhat lethargic and does not answer
[2018-03-24] MEDS: MEROPENEM 500 MG in NS 500 MG/50 ML BAG IVPB SCH ×2 (15:50→21:17)
[2018-03-24] MEDS: QUEtiapine 50 mg XR Tab PO SCH (21:16)
[2018-03-24] MEDS: Oxychlorosene Topical 2 gm Packet TOP SCH (21:16)
[2018-03-24] MEDS: Insulin Detemir 100 units/ml Vial (Levemir) SC SCH (21:17)
[2018-03-24] MEDS: UMECLIDINIUM BROMIDE IH SCH (21:19)
--- NOTE | 2018-03-24 21:31 | PN ---
DATE: 03/24/2018 SUBJECTIVE: The patient is in bed in no acute distress, nontoxic. PHYSICAL EXAMINATION: VITAL SIGNS: Temperature is 98, blood pressure is 130/70, respiratory rate of 20, heart rate of 99. HEENT: Examination of HEENT is unremarkable. NECK: Supple. LUNGS: Decreased breath sounds. HEART: Normal S1, S2. ABDOMEN: Soft. LABORATORY EXAMINATION: Reveals a white count of 12,400, hemoglobin of 8, platelets of 268. BUN of 58, creatinine of 2.9, and the urinalysis is noted and serology is noted. Microbiology reveals the right foot culture with a sensitive Staph aureus and blood cultures were also with a sensitive Staph aureus as the patient's left foot culture was also sensitive Staph aureus in a patient who is allergic to ceftaroline. The patient is supposed to be on meropenem; however, the meropenem has been discontinued by Pharmacy. We will restart the meropenem at 500 mg IV every eight hours. Stat dose today since the patient has not received any antibiotics today. ASSESSMENT/PLAN: A 57-year-old with severe sepsis, sensitive Staphylococcus aureus bacteremia secondary to a sensitive Staphylococcus aureus of the left foot abscess, status post incision and drainage, and the patient has cyanotic foot, at this point with a Charcot's foot. Day #9 of 28 days of meropenem which unfortunately fell off the medication yesterday. We will restart it, will need surgical intervention for the foot. Terrance Kent MD
[2018-03-25] MEDS: Albuterol-Ipratrop 3 mg / 0.5 (3 ml) UD IH SCH ×6 (04:02→23:37)
--- NOTE | 2018-03-25 06:39 | CP.PCM.PN ---
Subjective - Date & Time of Evaluation Date of Evaluation: 03/25/18 Time of Evaluation: 06:25 - Subjective Subjective: Easily awaken,No distress, lying in bed Reason for consultation and follow up: Cardiac evaluation of coronary artery disease, post op follow up of I & D of left foot abscess Seen and examined by me and Dr. Anton Objective - Vital Signs/Intake and Output Vital Signs (last 24 hours): Temp Pulse Resp BP Pulse Ox 98.6 F 90 18 136/76 97 03/24/18 18:00 03/24/18 18:00 03/24/18 18:00 03/24/18 18:00 03/24/18 18:00 Intake and Output: 03/24/18 03/25/18 18:59 06:59 Intake Total 540 Output Total 1600 Balance -1060 - Medications Medications: Current Medications Acetaminophen (Tylenol 325mg Tab) 650 mg PO Q6H PRN PRN Reason: Pain, moderate (4-7) Last Admin: 03/21/18 18:08 Dose: 650 mg Albuterol/Ipratropium (Duoneb 3 Mg/0.5 Mg (3 Ml) Ud) 3 ml IH [id number] [facility] Last Admin: 03/25/18 04:02 Dose: 3 ml Albuterol/Ipratropium (Duoneb 3 Mg/0.5 Mg (3 Ml) Ud) 3 ml IH [id number] PRN PRN Reason: Shortness of Breath Allopurinol (Zyloprim) 100 mg PO DAILY [facility] Last Admin: 03/24/18 11:15 Dose: 100 mg Aspirin (Ecotrin) 81 mg PO DAILY [facility] Last Admin: 03/24/18 11:13 Dose: 81 mg Atorvastatin Calcium (Lipitor) 20 mg PO DAILY [facility] Last Admin: 03/18/18 09:50 Dose: 20 mg Calcium Acetate (Phoslo) 1,334 mg PO WM [facility] Last Admin: 03/24/18 17:48 Dose: 1,334 mg Furosemide (Lasix) 40 mg PO DAILY [facility] Last Admin: 03/24/18 11:14 Dose: 40 mg Hydralazine HCl (Apresoline) 25 mg PO BID [facility] Last Admin: 03/24/18 17:45 Dose: 25 mg Meropenem/Sodium Chloride (Merrem Iv 500 Mg/Ns 50 Ml) 500 mg in 50 mls @ 100 mls/hr IVPB Q12 [facility]; Protocol Stop: 04/03/18 15:34 Last Admin: 03/24/18 21:17 Dose: 100 mls/hr Insulin Detemir (Levemir) 20 unit SC [facility] Last Admin: 03/24/18 21:17 Dose: 20 unit Insulin Human Lispro (Humalog Med) 0 units SC ACHS [facility] Last Admin: 03/24/18 21:18 Dose: Not Given Insulin Lispro Protam/Lispro Human (Humalog Mix 75/25) 10 units SC ACBD [facility] Last Admin: 03/24/18 17:47 Dose: 10 units Metoprolol Tartrate (Lopressor) 50 mg PO BID [facility] Last Admin: 03/24/18 17:48 Dose: 50 mg Montelukast Sodium (Singulair) 10 mg PO [facility] Last Admin: 03/24/18 21:17 Dose: 10 mg Home Med - Fluvoxamine [Luvox] 25 Mg 25 mg PO BID [facility] Last Admin: 03/24/18 17:46 Dose: Not Given Home Med - Umeclidinium [place] [Incruse Ellipta] 1 Puff 1 puff IH [facility] Last Admin: 03/24/18 21:19 Dose: Not Given Nortriptyline HCl (Pamelor) 50 mg PO [facility] Last Admin: 03/24/18 21:17 Dose: 50 mg Oxychlorosene Sodium (Clorpactin Wcs-90) 2 gm TOP Q12 [facility] Last Admin: 03/24/18 21:16 Dose: Not Given Oxychlorosene Sodium (Clorpactin Wcs-90) 2 gm TOP DAILY [facility] Pantoprazole Sodium (Protonix Ec Tab) 20 mg PO ACB [facility] Last Admin: 03/24/18 11:22 Dose: 20 mg Potassium Chloride (Klor-Con 10) 20 meq PO BRK [facility] Last Admin: 03/24/18 08:48 Dose: 20 meq Potassium Chloride (K-Dur 20 Meq Er Tab) 20 meq PO BRK [facility] Last Admin: 03/24/18 08:49 Dose: 20 meq Quetiapine Fumarate (Seroquel Xr) 100 mg PO HS [facility]; Protocol Last Admin: 03/24/18 21:16 Dose: 100 mg Silver Sulfadiazine (Silvadene 1% 25 Gm) 1 gm TP BID [facility] Last Admin: 03/22/18 18:03 Dose: 1 gm Tizanidine HCl (Zanaflex) 2 mg PO Q6 [facility] Last Admin: 03/25/18 05:56 Dose: 2 mg - Labs Labs: 03/24/18 06:40 03/24/18 06:40 PT 18.9 SECONDS (9.4-12.5) H 03/23/18 06:40 INR 1.63 03/23/18 06:40 APTT 35.8 Seconds (25.1-36.5) 03/21/18 00:23 - Constitutional Appears: Non-toxic, No Acute Distress - Head Exam Head Exam: NORMAL INSPECTION, NORMOCEPHALIC - Eye Exam Eye Exam: Normal appearance Pupil Exam: NORMAL ACCOMODATION - ENT Exam ENT Exam: Mucous Membranes Moist, Normal Exam - Respiratory Exam Respiratory Exam: Clear to Ausculation Bilateral, NORMAL BREATHING PATTERN - Cardiovascular Exam Cardiovascular Exam: +S1, +S2 - GI/Abdominal Exam GI & Abdominal Exam: Soft, Normal Bowel Sounds - Extremities Exam Additional comments: left foot dressing - Neurological Exam Neurological Exam: Alert, Awake, Oriented x3 - Psychiatric Exam Psychiatric exam: Normal Affect, Normal Mood - Skin Skin Exam: Dry, Normal Color, Warm Assessment and Plan - Assessment and Plan (Free Text) Assessment: A 57 year old female who came in to the ER due to left foot swelling. History of coronary artery disease post stents on 02/2013. COPD, obesity, fibromyalgia, HTN, CHF, DM, Diabetic neuropathy, Charcot foot, kidney disease, endometriosis, cellulitis of lower extremities. ESRD on hemodialysis. Had I & D of left foot. Wound positive for Staphyloccoccus aureaus. On IV antibiotics, Post blood transfusion with hemodialysis for low H/H. Plavix discontinued.On Hyperbaric treatment for left foot wound. Discontinued Plavix and Aspirin.Being followed up by Podiatry. Plan: Cardiac status stable Heart rate controlled 90's Denies chest pain or shortness of breath,No distress, Blood pressure controlled Lipitor 20 mg daily,Lopressor 50 mg BID, Hydralazine 25 mg BID Potassium Chloride 20 meq daily Continue antibiotics as per ID Podiatry on consult Latest INR 1.6 WNL (03/23) Continue current treatment Continue current medications Chart reviewed Will follow up Plan and treatment discussed with Dr. Anton
[2018-03-25 06:44] LABS: INR 1.58; PROTHROMBIN TIME 18.3 SECONDS (9.4-12.5)
[2018-03-25 06:47] LABS: BASO # 0.01 K/mm3 (0.0-2.0); BASO % 0.1 % (0.0-3.0); EOS # 0.2 (0.0-0.7); EOS % 1.5 % (1.5-5.0); GRAN # 10.24 (1.4-6.5); GRAN % 85.2 % (50.0-68.0); HEMOGLOBIN 8.3 g/dL (12.0-16.0); LYMPH % 8.1 % (22.0-35.0); MEAN CELL VOLUME 90.5 fl (80.0-105.0); MEAN CORPUSCULAR HEMOGLOBIN 28.2 pg (25.0-35.0); MEAN CORPUSCULAR HGB CONC 31.2 g/dl (31.0-37.0); MEAN PLATELET VOLUME 10.9 fl (7.0-11.0); MONO # 0.6 (0.1-0.6); MONO % 5.1 % (1.0-6.0); RBC 2.94 10^6/uL (3.5-6.1); RED CELL DISTRIBUTION WIDTH 16.3 % (11.5-14.5)
[2018-03-25 07:11] LABS: ALB/GLOB RATIO 0.7 (1.1-1.8); ALBUMIN 2.6 g/dL (3.0-4.8); CALCIUM 8.6 mg/dL (8.4-10.5)
--- NOTE | 2018-03-25 09:17 | PN ---
DATE: 03/24/2018 SUBJECTIVE: The patient has no complaints of any chest pain or shortness of breath. No headache or dizziness. PHYSICAL EXAMINATION: VITAL SIGNS: Temperature is 98.5, pulse of 99, blood pressure 136/69 and respirations 20. GENERAL: The patient is lying in bed, flat, comfortable. HEENT: No oral lesion. Anicteric sclerae. Moist mucosa. NECK: No JVD, adenopathy, or thyromegaly. CARDIOVASCULAR: S1 and S2, regular. No murmurs, rubs, or gallops. LUNGS: Clear to auscultation bilaterally. No wheeze, rales, or rhonchi. ABDOMEN: Bowel sounds are positive, soft, nontender and nondistended. EXTREMITIES: No cyanosis, clubbing or edema. LABORATORY DATA: White count of 12.4 and hemoglobin 8.6. Creatinine is 2.9. ASSESSMENT: 1. Status post left abscess incision and drainage. 2. Acute kidney injury, on hemodialysis. 3. Diabetes type 2. 4. Dyslipidemia. 5. Secondary hypoparathyroidism. PLAN: The patient is currently comfortable. She is on Lipitor for dyslipidemia, but it has been placed on hold. She is on nortriptyline daily. She is on Seroquel. She is going to continue with allopurinol for hyperuricemia. The patient was given potassium for hypokalemia. The patient is being followed by Dr. Frank. Jens Singh MD
[2018-03-25] MEDS: Insulin Lispro (humaLOG) MEDIUM Coverage SC SCH ×4 (09:26→22:19)
[2018-03-25] MEDS: Insulin Lispro (humaLOG) MIX 75/25(10 ml) SC SCH ×2 (09:27→17:14)
[2018-03-25] MEDS: Pantoprazole 20 mg EC Tab PO SCH (10:57)
[2018-03-25] MEDS: Oxychlorosene Topical 2 gm Packet TOP SCH ×2 (10:59)
[2018-03-25] MEDS: Silver Sulfadiazine 1% Cream (25 gm) TP SCH ×2 (10:59→17:16)
--- NOTE | 2018-03-25 12:10 | CP.PCM.PN ---
<Migue Tapia - Last Filed: 03/25/18 12:10> Subjective - Date & Time of Evaluation Date of Evaluation: 03/25/18 Time of Evaluation: 12:10 - Subjective Subjective: Podiatry progress note for Dr. Bills 57 y/o F patient seen and evaluated 9 days S/P incision and drainage of the left foot secondary to diabetic foot abscess and gangrenous changes to the left foot. Patient was Resting in her bed. Patient had SOB at the time of the encounter. Patient denies any other pedal complaints at this time. Patient states that she has no pain to her left foot. Patient denies any overnight N/V/F/C/CP. Objective - Vital Signs/Intake and Output Vital Signs (last 24 hours): Temp Pulse Resp BP Pulse Ox 98 F 98 H 21 127/66 94 L 03/25/18 08:21 03/25/18 10:56 03/25/18 08:21 03/25/18 08:21 03/25/18 08:21 Intake and Output: 03/25/18 03/25/18 06:59 18:59 Intake Total 710 Output Total 2200 Balance -1490 - Medications Medications: Current Medications Acetaminophen (Tylenol 325mg Tab) 650 mg PO Q6H PRN PRN Reason: Pain, moderate (4-7) Last Admin: 03/21/18 18:08 Dose: 650 mg Albuterol/Ipratropium (Duoneb 3 Mg/0.5 Mg (3 Ml) Ud) 3 ml IH [id number] [facility] Last Admin: 03/25/18 10:42 Dose: Not Given Albuterol/Ipratropium (Duoneb 3 Mg/0.5 Mg (3 Ml) Ud) 3 ml IH [id number] PRN PRN Reason: Shortness of Breath Allopurinol (Zyloprim) 100 mg PO DAILY [facility] Last Admin: 03/24/18 11:15 Dose: 100 mg Aspirin (Ecotrin) 81 mg PO DAILY [facility] Last Admin: 03/25/18 10:58 Dose: 81 mg Atorvastatin Calcium (Lipitor) 20 mg PO DAILY [facility] Last Admin: 03/18/18 09:50 Dose: 20 mg Calcium Acetate (Phoslo) 1,334 mg PO WM [facility] Last Admin: 03/25/18 10:57 Dose: 1,334 mg Furosemide (Lasix) 40 mg PO DAILY [facility] Last Admin: 03/24/18 11:14 Dose: 40 mg Hydralazine HCl (Apresoline) 25 mg PO BID [facility] Last Admin: 03/24/18 17:45 Dose: 25 mg Meropenem/Sodium Chloride (Merrem Iv 500 Mg/Ns 50 Ml) 500 mg in 50 mls @ 100 mls/hr IVPB Q12 [facility]; Protocol Stop: 04/03/18 15:34 Last Admin: 03/24/18 21:17 Dose: 100 mls/hr Insulin Detemir (Levemir) 20 unit SC HS [facility] Last Admin: 03/24/18 21:17 Dose: 20 unit Insulin Human Lispro (Humalog Med) 0 units SC ACHS [facility] Last Admin: 03/25/18 09:26 Dose: 1 units Insulin Lispro Protam/Lispro Human (Humalog Mix 75/25) 10 units SC ACBD [facility] Last Admin: 03/25/18 09:27 Dose: 10 units Metoprolol Tartrate (Lopressor) 50 mg PO BID [facility] Last Admin: 03/25/18 10:56 Dose: 50 mg Montelukast Sodium (Singulair) 10 mg PO HS [facility] Last Admin: 03/24/18 21:17 Dose: 10 mg Home Med - Fluvoxamine [Luvox] 25 Mg 25 mg PO BID [facility] Last Admin: 03/24/18 17:46 Dose: Not Given Home Med - Umeclidinium [place] [Incruse Ellipta] 1 Puff 1 puff IH [facility] Last Admin: 03/24/18 21:19 Dose: Not Given Nortriptyline HCl (Pamelor) 50 mg PO [facility] Last Admin: 03/24/18 21:17 Dose: 50 mg Oxychlorosene Sodium (Clorpactin Wcs-90) 2 gm TOP Q12 [facility] Last Admin: 03/25/18 10:59 Dose: 2 gm Oxychlorosene Sodium (Clorpactin Wcs-90) 2 gm TOP DAILY [facility] Last Admin: 03/25/18 10:59 Dose: 2 gm Pantoprazole Sodium (Protonix Ec Tab) 20 mg PO ACB [facility] Last Admin: 03/25/18 10:57 Dose: 20 mg Potassium Chloride (Klor-Con 10) 20 meq PO BRK [facility] Last Admin: 03/24/18 08:48 Dose: 20 meq Potassium Chloride (K-Dur 20 Meq Er Tab) 20 meq PO BRK [facility] Last Admin: 03/24/18 08:49 Dose: 20 meq Quetiapine Fumarate (Seroquel Xr) 100 mg PO HS [facility]; Protocol Last Admin: 03/24/18 21:16 Dose: 100 mg Silver Sulfadiazine (Silvadene 1% 25 Gm) 1 gm TP BID [facility] Last Admin: 03/25/18 10:59 Dose: 1 gm Tizanidine HCl (Zanaflex) 2 mg PO Q6 [facility] Last Admin: 03/25/18 05:56 Dose: 2 mg - Labs Labs: 03/25/18 06:00 03/25/18 06:00 PT 18.3 SECONDS (9.4-12.5) H 03/25/18 06:00 INR 1.58 03/25/18 06:00 APTT 35.8 Seconds (25.1-36.5) 03/21/18 00:23 - Constitutional Appears: Well - Head Exam Head Exam: ATRAUMATIC, NORMOCEPHALIC - Extremities Exam Additional comments: Bilateral Lower Extremity Exam VASC: DP/PT 2/4 b/l, Temp gradient warm to warm on the R side and warm to warmer on the left side from proximal to distal. Left toes 1 to 5 are gangrenous up to the level of the met shafts. Erythema extends above the L ankle J. NEURO: Gross and protective sensations are diminished B/L. DERM: Gangrenous changes noted with non-viable tissue noted to all the digits to the level of the metatarsals shafts with the skin peeling on the great toe, surgical incision sites to the left foot dorsally, laterally and plantarly are full thickness with granular tissues present. Positive purulent drainage noted from the plantar incision, blisters noted to the dorsum of the foot and anterior ankle with positive serous drainage, , no malodor, large incision noted plantarly with necrotic tissue. Right foot, stable ulceration noted to the tip of the 2nd digit MSK: No pain on palpating the left foot and the periulcerative area of the Right foot. Left ankle ROM is WNL. - Neurological Exam Neurological Exam: Alert, Awake, Oriented x3 - Psychiatric Exam Psychiatric exam: Normal Affect, Normal Mood Assessment and Plan - Assessment and Plan (Free Text) Assessment: 57 y/o F patient seen and evaluated 9 days S/P incision and drainage of the left foot secondary to diabetic foot abscess and gangrenous changes to the left foot. Plan: Patient seen and evaluated at bedside with Dr. Bills Discussed plan in detail with Dr. Bills Charts, labs and vitals reviewed: Afebrile, WBC 12.0 Patient Left foot dressings were changed with sterile instruments Left foot wounds was cleaned with sterile saline then dressed using xeroform and DSD, ABD and kerlix No compression has been applied at this time Patient couldn't go to Hyperbaric Oxygen Treatment today as her chest is congested. Discussed with the patient the need to go to the OR to do TMA. Explained to the patient that she will need staged surgeries trying to salvage her left foot. Explained to the patient that there are no guarantees regarding the success of the surgeries to sulvage the left foot and she might need at the end Left BKA. Explained to the patient the benefits, risks and possible complications of the surgery. Patient expressed verbal understanding. Patient agrees to do the surgeries. Patient scheduled for Left TMA Sunday03/27/2018 at 7:30 am at the OR. Patient has a stable cardiac status from the cardiology standpoint. Patient needs to be medically optimized prior to the surgery. Podiatry will carefully continue to follow up the patient while in house. <Guillermina Bills - Last Filed: 03/29/18 15:17> Objective - Vital Signs/Intake and Output Vital Signs (last 24 hours): Temp Pulse Resp BP Pulse Ox 97.7 F 97 H 20 121/68 94 L 03/29/18 06:00 03/29/18 12:24 03/29/18 06:00 03/29/18 12:24 03/29/18 06:00 Intake and Output: 03/29/18 03/29/18 06:59 18:59 Intake Total 480 Output Total 1150 Balance -670 - Medications Medications: Current Medications Albuterol/Ipratropium (Duoneb 3 Mg/0.5 Mg (3 Ml) Ud) 3 ml IH [id number] [facility] Last Admin: 03/29/18 11:22 Dose: Not Given Albuterol/Ipratropium (Duoneb 3 Mg/0.5 Mg (3 Ml) Ud) 3 ml IH [id number] PRN PRN Reason: Shortness of Breath Last Admin: 03/26/18 17:16 Dose: 3 ml Allopurinol (Zyloprim) 100 mg PO DAILY [facility] Last Admin: 03/29/18 12:28 Dose: 100 mg Aspirin (Ecotrin) 81 mg PO DAILY [facility] Last Admin: 03/29/18 12:21 Dose: 81 mg Atorvastatin Calcium (Lipitor) 20 mg PO DAILY [facility] Last Admin: 03/18/18 09:50 Dose: 20 mg Calcium Acetate (Phoslo) 1,334 mg PO WM [facility] Last Admin: 03/29/18 12:26 Dose: 1,334 mg Furosemide (Lasix) 40 mg PO DAILY [facility] Last Admin: 03/29/18 12:24 Dose: 40 mg Hydralazine HCl (Apresoline) 25 mg PO BID [facility] Last Admin: 03/29/18 12:20 Dose: 25 mg Hydromorphone HCl (Dilaudid) 2 mg IVP Q4H PRN PRN Reason: Pain, severe (8-10) Last Admin: 03/29/18 00:38 Dose: 2 mg Meropenem/Sodium Chloride (Merrem Iv 500 Mg/Ns 50 Ml) 500 mg in 50 mls @ 100 mls/hr IVPB Q12 [facility]; Protocol Stop: 04/03/18 15:34 Last Admin: 03/29/18 12:25 Dose: 100 mls/hr Insulin Detemir (Levemir) 20 unit SC HS [facility] Last Admin: 03/28/18 21:25 Dose: 20 unit Insulin Human Lispro (Humalog Med) 0 units SC ACHS [facility] Last Admin: 03/29/18 12:21 Dose: 1 units Insulin Lispro Protam/Lispro Human (Humalog Mix 75/25) 18 units SC ACBD [facility] Last Admin: 03/29/18 12:22 Dose: 18 units Metoprolol Tartrate (Lopressor) 50 mg PO BID [facility] Last Admin: 03/29/18 12:24 Dose: 50 mg Montelukast Sodium (Singulair) 10 mg PO HS [facility] Last Admin: 03/28/18 21:25 Dose: 10 mg Home Med - Fluvoxamine [Luvox] 25 Mg 25 mg PO BID [facility] Last Admin: 03/29/18 12:21 Dose: Not Given Home Med - Umeclidinium [place] [Incruse Ellipta] 1 Puff 1 puff IH [facility] Last Admin: 03/28/18 22:00 Dose: Not Given Nortriptyline HCl (Pamelor) 50 mg PO HS [facility] Last Admin: 03/28/18 21:25 Dose: 50 mg Oxychlorosene Sodium (Clorpactin Wcs-90) 2 gm TOP Q12 [facility] Last Admin: 03/29/18 12:20 Dose: Not Given Oxychlorosene Sodium (Clorpactin Wcs-90) 2 gm TOP DAILY [facility] Last Admin: 03/29/18 12:21 Dose: Not Given Pantoprazole Sodium (Protonix Ec Tab) 20 mg PO ACB [facility] Last Admin: 03/29/18 12:27 Dose: 20 mg Potassium Chloride (Klor-Con 10) 20 meq PO BRK [facility] Last Admin: 03/29/18 12:23 Dose: 20 meq Potassium Chloride (K-Dur 20 Meq Er Tab) 20 meq PO BRK [facility] Last Admin: 03/29/18 12:23 Dose: 20 meq Prednisone (Prednisone Tab) 10 mg PO DAILY [facility] Last Admin: 03/29/18 12:27 Dose: 10 mg Quetiapine Fumarate (Seroquel Xr) 100 mg PO [facility]; Protocol Last Admin: 03/28/18 21:24 Dose: 100 mg Silver Sulfadiazine (Silvadene 1% 25 Gm) 1 gm TP BID [facility] Last Admin: 03/29/18 12:27 Dose: Not Given Tizanidine HCl (Zanaflex) 2 mg PO Q6 [facility] Last Admin: 03/29/18 12:27 Dose: 2 mg - Labs Labs: 03/29/18 07:14 03/29/18 07:14 PT 15.0 SECONDS (9.4-12.5) H 03/29/18 07:14 INR 1.30 03/29/18 07:14 APTT 35.8 Seconds (25.1-36.5) 03/21/18 00:23 Attending/Attestation - Attestation I have personally seen and examined this patient.: Yes I have fully participated in the care of the patient.: Yes I have reviewed all pertinent clinical information, including history, physical exam and plan: Yes Notes (Text): 03/29/18 15:16 pt with limb threatening necotizing fascitis s/p I&D by Dr Little - we are waiting for demarcation of the foot and a TMA is planned; discuss with pt we will not have enough skin to close wound and the wound will be left open; we will apply Integra skin graft and wound vac post op
[2018-03-25] MEDS: Potassium Chloride 20 mEq ER Tab PO SCH (13:18)
[2018-03-25] MEDS: Potassium Chloride 10 mEq ER Tab PO SCH (13:18)
[2018-03-25] MEDS: MEROPENEM 500 MG in NS 500 MG/50 ML BAG IVPB SCH ×2 (13:19→22:32)
[2018-03-25] MEDS: FLUVOXAMINE 25 MG PO SCH ×2 (13:22→17:03)
[2018-03-25] MEDS: MethylPREDNISolone 40 mg Vial IV SCH ×2 (13:29→22:16)
--- NOTE | 2018-03-25 14:04 | CP.PCM.PN ---
<Larry Thomas - Last Filed: 03/25/18 14:13> Subjective - Date & Time of Evaluation Date of Evaluation: 03/25/18 Time of Evaluation: 13:57 - Subjective Subjective: Infectious disease progress note for Dr. Peacock/Dr. Kent service - Edilebrto Thomas PGY3 Patient seen and examined at bedside this morning. No acute overnight events or new complaints reported. Drainage from left foot noted and has been receiving hyperbaric oxygen therapy. Presently on meropenem. Denies chest pain, palpitations, SOB. Objective - Vital Signs/Intake and Output Vital Signs (last 24 hours): Temp Pulse Resp BP Pulse Ox 98 F 98 H 21 127/67 94 L 03/25/18 08:21 03/25/18 10:56 03/25/18 08:21 03/25/18 13:18 03/25/18 08:21 Intake and Output: 03/25/18 03/25/18 06:59 18:59 Intake Total 710 Output Total 2200 Balance -1490 - Medications Medications: Current Medications Acetaminophen (Tylenol 325mg Tab) 650 mg PO Q6H PRN PRN Reason: Pain, moderate (4-7) Last Admin: 03/21/18 18:08 Dose: 650 mg Albuterol/Ipratropium (Duoneb 3 Mg/0.5 Mg (3 Ml) Ud) 3 ml IH [id number] [facility] Last Admin: 03/25/18 10:42 Dose: Not Given Albuterol/Ipratropium (Duoneb 3 Mg/0.5 Mg (3 Ml) Ud) 3 ml IH [id number] PRN PRN Reason: Shortness of Breath Allopurinol (Zyloprim) 100 mg PO DAILY [facility] Last Admin: 03/25/18 13:29 Dose: 100 mg Aspirin (Ecotrin) 81 mg PO DAILY [facility] Last Admin: 03/25/18 10:58 Dose: 81 mg Atorvastatin Calcium (Lipitor) 20 mg PO DAILY [facility] Last Admin: 03/18/18 09:50 Dose: 20 mg Calcium Acetate (Phoslo) 1,334 mg PO WM [facility] Last Admin: 03/25/18 13:18 Dose: 1,334 mg Furosemide (Lasix) 40 mg PO DAILY [facility] Last Admin: 03/25/18 13:18 Dose: 40 mg Hydralazine HCl (Apresoline) 25 mg PO BID [facility] Last Admin: 03/25/18 13:17 Dose: 25 mg Meropenem/Sodium Chloride (Merrem Iv 500 Mg/Ns 50 Ml) 500 mg in 50 mls @ 100 mls/hr IVPB Q12 [facility]; Protocol Stop: 04/03/18 15:34 Last Admin: 03/25/18 13:19 Dose: 100 mls/hr Insulin Detemir (Levemir) 20 unit SC HS [facility] Last Admin: 03/24/18 21:17 Dose: 20 unit Insulin Human Lispro (Humalog Med) 0 units SC ACHS [facility] Last Admin: 03/25/18 09:26 Dose: 1 units Insulin Lispro Protam/Lispro Human (Humalog Mix 75/25) 10 units SC ACBD [facility] Last Admin: 03/25/18 09:27 Dose: 10 units Methylprednisolone (Solu-Medrol) 30 mg IV Q12 [facility] Last Admin: 03/25/18 13:29 Dose: 30 mg Metoprolol Tartrate (Lopressor) 50 mg PO BID [facility] Last Admin: 03/25/18 10:56 Dose: 50 mg Montelukast Sodium (Singulair) 10 mg PO [facility] Last Admin: 03/24/18 21:17 Dose: 10 mg Home Med - Fluvoxamine [Luvox] 25 Mg 25 mg PO BID [facility] Last Admin: 03/25/18 13:22 Dose: Not Given Home Med - Umeclidinium [place] [Incruse Ellipta] 1 Puff 1 puff IH [facility] Last Admin: 03/24/18 21:19 Dose: Not Given Nortriptyline HCl (Pamelor) 50 mg PO [facility] Last Admin: 03/24/18 21:17 Dose: 50 mg Oxychlorosene Sodium (Clorpactin Wcs-90) 2 gm TOP Q12 [facility] Last Admin: 03/25/18 10:59 Dose: 2 gm Oxychlorosene Sodium (Clorpactin Wcs-90) 2 gm TOP DAILY [facility] Last Admin: 03/25/18 10:59 Dose: 2 gm Pantoprazole Sodium (Protonix Ec Tab) 20 mg PO ACB [facility] Last Admin: 03/25/18 10:57 Dose: 20 mg Potassium Chloride (Klor-Con 10) 20 meq PO BRK [facility] Last Admin: 03/25/18 13:18 Dose: 20 meq Potassium Chloride (K-Dur 20 Meq Er Tab) 20 meq PO BRK [facility] Last Admin: 03/25/18 13:18 Dose: 20 meq Quetiapine Fumarate (Seroquel Xr) 100 mg PO HS [facility]; Protocol Last Admin: 03/24/18 21:16 Dose: 100 mg Silver Sulfadiazine (Silvadene 1% 25 Gm) 1 gm TP BID [facility] Last Admin: 03/25/18 10:59 Dose: 1 gm Tizanidine HCl (Zanaflex) 2 mg PO Q6 [facility] Last Admin: 03/25/18 13:29 Dose: 2 mg - Labs Labs: 03/25/18 06:00 03/25/18 06:00 PT 18.3 SECONDS (9.4-12.5) H 03/25/18 06:00 INR 1.58 03/25/18 06:00 APTT 35.8 Seconds (25.1-36.5) 03/21/18 00:23 - Constitutional Appears: No Acute Distress - Head Exam Head Exam: ATRAUMATIC, NORMAL INSPECTION, NORMOCEPHALIC - Eye Exam Eye Exam: EOMI, PERRL - ENT Exam ENT Exam: Mucous Membranes Moist - Neck Exam Neck Exam: Normal Inspection. absent: Lymphadenopathy, Tenderness, Thyromegaly - Respiratory Exam Respiratory Exam: Clear to Ausculation Bilateral. absent: Rales, Rhonchi, Wheezes - Cardiovascular Exam Cardiovascular Exam: RRR, +S1, +S2. absent: Clicks, JVD, Rubs - GI/Abdominal Exam GI & Abdominal Exam: Soft. absent: Distended, Firm, Guarding, Rigid, Tenderness, Rebound - Neurological Exam Neurological Exam: Alert, Awake, CN II-XII Intact, Oriented x3 - Psychiatric Exam Psychiatric exam: Normal Affect, Normal Mood Assessment and Plan - Assessment and Plan (Free Text) Plan: 57yo female with history of COPD, obesity, fibromyalgia, recurrent UTI, restless leg syndrome, HTN, chronic CHF, DM, diabetic neuropathy, CKD, endometriosis, charcot foot and cellulitis of LE admitted for septic shock secondary to staph aureus bacteremia and staph aureus foot abscess s/p I&D in the setting of acute kidney injury. 1. resolved septic shock secondary to staph aureus bacteremia 2. Staph aureus left foot abscess s/p I&D 3. JAMIL on CKD 4. COPD, chronic 5. CHF, chronic 6. Normocytic anemia 7. Hx of hypertension 8. Diabetes mellitus type 2 9. Diabetic neuropathy -Per podiatry, patient agreeable to left TMA on Sunday given worsening gang renous changes to the left foot -She presently requires 4-6 weeks of meropenem however course may be shortened depending on margins post amputation -Unable to undergo hyperbaric oxygen treatment -MRI negative for osteomyelitis -Echocardiogram revealed no apparent thrombus; LVEF 59%; see full report -Continue current management as per medicine/podiatry teams Patient seen and case discussed/reviewed with attending, Dr. Peacock <Jan Peacock - Last Filed: 03/25/18 21:55> Objective - Vital Signs/Intake and Output Vital Signs (last 24 hours): Temp Pulse Resp BP Pulse Ox 98 F 91 H 20 148/89 97 03/25/18 18:26 03/25/18 18:26 03/25/18 18:26 03/25/18 18:26 03/25/18 18:26 - Medications Medications: Current Medications Acetaminophen (Tylenol 325mg Tab) 650 mg PO Q6H PRN PRN Reason: Pain, moderate (4-7) Last Admin: 03/21/18 18:08 Dose: 650 mg Albuterol/Ipratropium (Duoneb 3 Mg/0.5 Mg (3 Ml) Ud) 3 ml IH [id number] [facility] Last Admin: 03/25/18 20:24 Dose: Not Given Albuterol/Ipratropium (Duoneb 3 Mg/0.5 Mg (3 Ml) Ud) 3 ml IH [id number] PRN PRN Reason: Shortness of Breath Allopurinol (Zyloprim) 100 mg PO DAILY [facility] Last Admin: 03/25/18 13:29 Dose: 100 mg Aspirin (Ecotrin) 81 mg PO DAILY [facility] Last Admin: 03/25/18 10:58 Dose: 81 mg Atorvastatin Calcium (Lipitor) 20 mg PO DAILY [facility] Last Admin: 03/18/18 09:50 Dose: 20 mg Calcium Acetate (Phoslo) 1,334 mg PO WM [facility] Last Admin: 03/25/18 17:16 Dose: 1,334 mg Furosemide (Lasix) 40 mg PO DAILY [facility] Last Admin: 03/25/18 13:18 Dose: 40 mg Hydralazine HCl (Apresoline) 25 mg PO BID [facility] Last Admin: 03/25/18 17:12 Dose: 25 mg Meropenem/Sodium Chloride (Merrem Iv 500 Mg/Ns 50 Ml) 500 mg in 50 mls @ 100 mls/hr IVPB Q12 [facility]; Protocol Stop: 04/03/18 15:34 Last Admin: 03/25/18 13:19 Dose: 100 mls/hr Insulin Detemir (Levemir) 20 unit SC HS [facility] Last Admin: 03/24/18 21:17 Dose: 20 unit Insulin Human Lispro (Humalog Med) 0 units SC ACHS [facility] Last Admin: 03/25/18 17:14 Dose: 1 units Insulin Lispro Protam/Lispro Human (Humalog Mix 75/25) 10 units SC ACBD [facility] Last Admin: 03/25/18 17:14 Dose: 10 units Methylprednisolone (Solu-Medrol) 30 mg IV Q12 [facility] Last Admin: 03/25/18 13:29 Dose: 30 mg Metoprolol Tartrate (Lopressor) 50 mg PO BID [facility] Last Admin: 03/25/18 17:21 Dose: 50 mg Montelukast Sodium (Singulair) 10 mg PO [facility] Last Admin: 03/24/18 21:17 Dose: 10 mg Home Med - Fluvoxamine [Luvox] 25 Mg 25 mg PO BID [facility] Last Admin: 03/25/18 17:03 Dose: Not Given Home Med - Umeclidinium [place] [Incruse Ellipta] 1 Puff 1 puff IH [facility] Last Admin: 03/24/18 21:19 Dose: Not Given Nortriptyline HCl (Pamelor) 50 mg PO [facility] Last Admin: 03/24/18 21:17 Dose: 50 mg Oxychlorosene Sodium (Clorpactin Wcs-90) 2 gm TOP Q12 [facility] Last Admin: 03/25/18 10:59 Dose: 2 gm Oxychlorosene Sodium (Clorpactin Wcs-90) 2 gm TOP DAILY [facility] Last Admin: 03/25/18 10:59 Dose: 2 gm Pantoprazole Sodium (Protonix Ec Tab) 20 mg PO ACB [facility] Last Admin: 03/25/18 10:57 Dose: 20 mg Phytonadione (Vitamin K Tab) 5 mg PO ONCE ONE Stop: 03/26/18 20:01 Potassium Chloride (Klor-Con 10) 20 meq PO BRK [facility] Last Admin: 03/25/18 13:18 Dose: 20 meq Potassium Chloride (K-Dur 20 Meq Er Tab) 20 meq PO BRK [facility] Last Admin: 03/25/18 13:18 Dose: 20 meq Quetiapine Fumarate (Seroquel Xr) 100 mg PO HS [facility]; Protocol Last Admin: 03/24/18 21:16 Dose: 100 mg Silver Sulfadiazine (Silvadene 1% 25 Gm) 1 gm TP BID [facility] Last Admin: 03/25/18 17:16 Dose: 1 gm Tizanidine HCl (Zanaflex) 2 mg PO Q6 [facility] Last Admin: 03/25/18 17:16 Dose: 2 mg - Labs Labs: 03/25/18 06:00 03/25/18 06:00 PT 18.3 SECONDS (9.4-12.5) H 03/25/18 06:00 INR 1.58 03/25/18 06:00 APTT 35.8 Seconds (25.1-36.5) 03/21/18 00:23 Assessment and Plan - Assessment and Plan (Free Text) Plan: Infectious diseases Attending Physician Attestation Patient seen and examined, discussed with medical technician. I have reviewed the patient's history of present illness, past medical, social, personal and family histories, pertinent physical exam findings, course so far in this hospital admission, pertinent laboratory and imaging results. I agree with the above findings, assessment and plan. In addition, will continue Merrem for this patient with sepsis with MSSA bacteremia from left foot severe skin and skin structure infection. Podiatry considering TMA for patient. Will continue to monitor clinically.
--- NOTE | 2018-03-25 15:08 | PN ---
DATE: 03/25/2018 SUBJECTIVE: The patient is 57-year-old seen and examined. Complained of cough, congestion. She stated she could not lay down and . I spoke to Dr. Bills who is planning to do TMA on Sunday, need to be prepped. I will order for CBC and CMP for today. I also spoke to Dr. Elva Frank, who will follow up today's CBC and CMP and decide if she needs some fluid taken out and give blood transfusion during dialysis. PHYSICAL EXAMINATION: GENERAL: Otherwise, the patient on examination seems to be little upset, but . VITAL SIGNS: She is afebrile, pulse 90, respirations 21, and blood pressure 127/66. LUNGS: Bilateral fair airflow, few occasional scattered crepitus, and crackles bilaterally, most posteriorly. HEART: S1, S2 audible. ABDOMEN: Soft, obese, nontender. No rebound. No guarding. NEUROLOGIC: The patient is awake, alert, oriented, able to communicate. EXTREMITIES: Bilateral leg, no edema. Left foot is wrapped, but the fingertips are discolored, purplish discoloration. LABORATORY DATA: WBC 12, hemoglobin 8.3, hematocrit 26.6 and platelets 344. Chemistry; sodium 140, potassium 3.8, chloride 102, CO2 of 28, BUN 57, creatinine 2.7 and blood sugar of 194. ASSESSMENT: 1. Left foot abscess. 2. Charcot's disease. 3. Insulin-dependent diabetes. 4. Mild asthmatic bronchitis. 5. Chronic obstructive pulmonary disease. 6. Hypertension. 7. Hyperlipidemia. PLAN: I will give her small dose of steroid. Dr. Frank will evaluate the patient later on and arrange for dialysis after assessing her. I will give her IV Solu-Medrol few doses prior to surgery on Sunday for TMA. Colt Zhu MD
--- NOTE | 2018-03-25 16:55 | PN ---
DATE: 03/25/2018 REASON FOR CONSULTATION AND FOLLOWUP: Cardiac evaluation, history of coronary artery disease, septic shock, source being the foot status post I and D. INR today is still elevated. This note is an addition to dictated by nurse practitioner, Liz Jiménez. SUBJECTIVE: The patient is off Plavix because the patient bled from the I and D site and history of stent in 02/2013. RECOMMENDATIONS: Continue baby aspirin. The patient is willing for hyperbaric treatment for the left foot. Today's INR is 1.5. We will give one dose of vitamin K. Discussed with the patient. We will follow with you. Thank you Dr. Zhu for providing us the opportunity in taking care of the patientAshley. Stephanie Anton MD
[2018-03-25] MEDS: UMECLIDINIUM BROMIDE IH SCH (22:00)
[2018-03-25] MEDS: QUEtiapine 50 mg XR Tab PO SCH (22:15)
[2018-03-25] MEDS: Insulin Detemir 100 units/ml Vial (Levemir) SC SCH (22:32)
--- NOTE | 2018-03-26 00:10 | PN ---
DATE: 03/25/2018 SUBJECTIVE: The patient is seen lying in bed. She is awake. She is alert. She complains of cough. She complains of shortness of breath. She reports she is having difficulty lying flat in bed. PHYSICAL EXAMINATION: GENERAL: Middle-aged lady lying in bed. VITAL SIGNS: Blood pressure 127/67, heart rate 98, respiratory rate 20, temperature 98. HEENT: Normocephalic, atraumatic, positive pallor. NECK: Supple. No JVD. CARDIOPULMONARY: S1 and S2, regular rate and rhythm, no murmur, no rub. LUNGS: Bilateral rhonchi, bilateral equal expansion. No rales. ABDOMEN: Obese, distended, soft, nontender, bowel sounds present. EXTREMITIES: Dressing of the left foot. INTAKE AND OUTPUT: 710/2200. LABORATORY DATA: WBC 12, hemoglobin 8.3, hematocrit 26.6, platelets 344. Sodium 140, potassium 3.8, chloride 102, CO2 28, BUN 57, creatinine 2.7, glucose 196, calcium 8.6. CURRENT MEDICATIONS: Apresoline 25 b.i.d., , DuoNeb, aspirin, insulin, K-Dur 20 mEq, potassium, Lasix 40 p.o. daily, Levemir, Lipitor, Lopressor 50 b.i.d., meropenem, PhosLo, Protonix. ASSESSMENT: 1. Acute kidney injury superimposed on chronic kidney disease stage III, resolving acute kidney injury. The patient required dialysis x2. Subsequently, she was ultra-filtrated on Sunday. 2. Status post severe sepsis, staphylococcus foot abscess, staphylococcus bacteremia. 3. Chronic severe anemia with acute anemia superimposed. 4. Vux-mwrcoai-gaveimyxs diabetes mellitus. 5. Hypertension. 6. Coronary artery disease, history of percutaneous transluminal coronary angioplasty and stent. 7. Cardiomyopathy/congestive heart failure. 8. Left foot abscess, peripheral arterial disease. PLAN: 1. Ultrafiltration today for 2 hours to remove 2 kilos. 2. Transfuse 1 unit of blood ____ ultrafiltration. 3. Continue p.o. Lasix. 4. Replace potassium aggressively. 5. Plan is for left TMA. Elva Frank MD
[2018-03-26] MEDS: Oxychlorosene Topical 2 gm Packet TOP SCH ×4 (00:19→23:32)
[2018-03-26] MEDS: Albuterol-Ipratrop 3 mg / 0.5 (3 ml) UD IH SCH ×5 (04:59→20:08)
[2018-03-26] MEDS: Pantoprazole 20 mg EC Tab PO SCH (06:40)
[2018-03-26 06:54] LABS: INR 1.45; PROTHROMBIN TIME 16.8 SECONDS (9.4-12.5)
[2018-03-26 06:57] LABS: BASO # 0.01 K/mm3 (0.0-2.0); BASO % 0.1 % (0.0-3.0); EOS % 0.1 % (1.5-5.0); GRAN # 7.42 (1.4-6.5); HEMOGLOBIN 10.2 g/dL (12.0-16.0); LYMPH # 0.5 (1.2-3.4); LYMPH % 6.7 % (22.0-35.0); MEAN CELL VOLUME 89.1 fl (80.0-105.0); MEAN CORPUSCULAR HEMOGLOBIN 28.5 pg (25.0-35.0); MEAN PLATELET VOLUME 11.1 fl (7.0-11.0); MONO # 0.1 (0.1-0.6); MONO % 1.1 % (1.0-6.0); RBC 3.58 10^6/uL (3.5-6.1); RED CELL DISTRIBUTION WIDTH 16.3 % (11.5-14.5); WHITE BLOOD COUNT 8.1 10^3/uL (4.5-11.0)
--- NOTE | 2018-03-26 07:07 | CP.PCM.PN ---
Subjective - Date & Time of Evaluation Date of Evaluation: 03/26/18 Time of Evaluation: 06:35 - Subjective Subjective: No distress, Easily awaken, lying in bed Reason for consultation and follow up: Cardiac evaluation of coronary artery disease, post op follow up of I & D of left foot abscess Seen and examined by me and Dr. Anton Objective - Vital Signs/Intake and Output Vital Signs (last 24 hours): Temp Pulse Resp BP Pulse Ox 98.1 F 107 H 19 144/72 96 03/26/18 06:00 03/26/18 06:00 03/26/18 06:00 03/26/18 06:00 03/26/18 06:00 - Medications Medications: Current Medications Acetaminophen (Tylenol 325mg Tab) 650 mg PO Q6H PRN PRN Reason: Pain, moderate (4-7) Last Admin: 03/21/18 18:08 Dose: 650 mg Albuterol/Ipratropium (Duoneb 3 Mg/0.5 Mg (3 Ml) Ud) 3 ml IH [id number] [facility] Last Admin: 03/26/18 04:59 Dose: 3 ml Albuterol/Ipratropium (Duoneb 3 Mg/0.5 Mg (3 Ml) Ud) 3 ml IH [id number] PRN PRN Reason: Shortness of Breath Allopurinol (Zyloprim) 100 mg PO DAILY [facility] Last Admin: 03/25/18 13:29 Dose: 100 mg Aspirin (Ecotrin) 81 mg PO DAILY [facility] Last Admin: 03/25/18 10:58 Dose: 81 mg Atorvastatin Calcium (Lipitor) 20 mg PO DAILY [facility] Last Admin: 03/18/18 09:50 Dose: 20 mg Calcium Acetate (Phoslo) 1,334 mg PO WM [facility] Last Admin: 03/25/18 17:16 Dose: 1,334 mg Furosemide (Lasix) 40 mg PO DAILY [facility] Last Admin: 03/25/18 13:18 Dose: 40 mg Hydralazine HCl (Apresoline) 25 mg PO BID [facility] Last Admin: 03/25/18 17:12 Dose: 25 mg Meropenem/Sodium Chloride (Merrem Iv 500 Mg/Ns 50 Ml) 500 mg in 50 mls @ 100 mls/hr IVPB Q12 [facility]; Protocol Stop: 04/03/18 15:34 Last Admin: 03/25/18 22:32 Dose: 100 mls/hr Insulin Detemir (Levemir) 20 unit SC HS [facility] Last Admin: 03/25/18 22:32 Dose: 20 unit Insulin Human Lispro (Humalog Med) 0 units SC ACHS [facility] Last Admin: 03/25/18 22:19 Dose: Not Given Insulin Lispro Protam/Lispro Human (Humalog Mix 75/25) 10 units SC ACBD [facility] Last Admin: 03/25/18 17:14 Dose: 10 units Methylprednisolone (Solu-Medrol) 30 mg IV Q12 [facility] Last Admin: 03/25/18 22:16 Dose: 30 mg Metoprolol Tartrate (Lopressor) 50 mg PO BID [facility] Last Admin: 03/25/18 17:21 Dose: 50 mg Montelukast Sodium (Singulair) 10 mg PO [facility] Last Admin: 03/25/18 22:15 Dose: 10 mg Home Med - Fluvoxamine [Luvox] 25 Mg 25 mg PO BID [facility] Last Admin: 03/25/18 17:03 Dose: Not Given Home Med - Umeclidinium [place] [Incruse Ellipta] 1 Puff 1 puff IH [facility] Last Admin: 03/25/18 22:00 Dose: Not Given Nortriptyline HCl (Pamelor) 50 mg PO [facility] Last Admin: 03/25/18 22:15 Dose: 50 mg Oxychlorosene Sodium (Clorpactin Wcs-90) 2 gm TOP Q12 [facility] Last Admin: 03/26/18 00:19 Dose: Not Given Oxychlorosene Sodium (Clorpactin Wcs-90) 2 gm TOP DAILY [facility] Last Admin: 03/25/18 10:59 Dose: 2 gm Pantoprazole Sodium (Protonix Ec Tab) 20 mg PO ACB [facility] Last Admin: 03/26/18 06:40 Dose: 20 mg Phytonadione (Vitamin K Tab) 5 mg PO ONCE ONE Stop: 03/26/18 20:01 Potassium Chloride (Klor-Con 10) 20 meq PO BRK [facility] Last Admin: 03/25/18 13:18 Dose: 20 meq Potassium Chloride (K-Dur 20 Meq Er Tab) 20 meq PO BRK [facility] Last Admin: 03/25/18 13:18 Dose: 20 meq Quetiapine Fumarate (Seroquel Xr) 100 mg PO [facility]; Protocol Last Admin: 03/25/18 22:15 Dose: 100 mg Silver Sulfadiazine (Silvadene 1% 25 Gm) 1 gm TP BID [facility] Last Admin: 03/25/18 17:16 Dose: 1 gm Tizanidine HCl (Zanaflex) 2 mg PO Q6 [facility] Last Admin: 03/26/18 05:57 Dose: 2 mg - Labs Labs: 03/25/18 06:00 03/25/18 06:00 PT 16.8 SECONDS (9.4-12.5) H 03/26/18 06:00 INR 1.45 03/26/18 06:00 APTT 35.8 Seconds (25.1-36.5) 03/21/18 00:23 - Constitutional Appears: Non-toxic, No Acute Distress - Head Exam Head Exam: NORMAL INSPECTION, NORMOCEPHALIC - Eye Exam Eye Exam: Normal appearance Pupil Exam: NORMAL ACCOMODATION - ENT Exam ENT Exam: Mucous Membranes Moist, Normal Exam - Respiratory Exam Respiratory Exam: Clear to Ausculation Bilateral, NORMAL BREATHING PATTERN - Cardiovascular Exam Cardiovascular Exam: +S1, +S2 - GI/Abdominal Exam GI & Abdominal Exam: Soft, Normal Bowel Sounds - Extremities Exam Additional comments: left foot dressing - Neurological Exam Neurological Exam: Alert, Awake, Oriented x3 - Psychiatric Exam Psychiatric exam: Normal Affect, Normal Mood - Skin Skin Exam: Dry, Normal Color, Warm Assessment and Plan - Assessment and Plan (Free Text) Assessment: A 57 year old female who came in to the ER due to left foot swelling. History of coronary artery disease post stents on 02/2013. COPD, obesity, fibromyalgia, HTN, CHF, DM, Diabetic neuropathy, Charcot foot, kidney disease, endometriosis, cellulitis of lower extremities. ESRD on hemodialysis. Had I & D of left foot. Wound positive for Staphyloccoccus aureaus. On IV antibiotics, Post blood transfusion with hemodialysis for low H/H.elevated INR from septic shock, she was not on coumadin before. Plavix discontinued.On Hyperbaric treatment for left foot wound. Discontinued Plavix and Aspirin.Being followed up by Podiatry. Plan: Denies chest pain or shortness of breath,No distress, Blood pressure controlled Cardiac status stable Heart rate controlled Given Vitamin K yesterday for INR of 1.5, level today 1.4 trending down Lipitor 20 mg daily,Lopressor 50 mg BID, Hydralazine 25 mg BID Potassium Chloride 20 meq daily Continue antibiotics as per ID Podiatry on consult Continue current treatment Continue current medications Chart reviewed Will follow up Plan and treatment discussed with Dr. Anton
[2018-03-26] MEDS: Potassium Chloride 10 mEq ER Tab PO SCH (10:03)
[2018-03-26] MEDS: Potassium Chloride 20 mEq ER Tab PO SCH (10:04)
[2018-03-26] MEDS: MethylPREDNISolone 40 mg Vial IV SCH ×2 (10:05→21:46)
[2018-03-26] MEDS: Insulin Lispro (humaLOG) MEDIUM Coverage SC SCH ×3 (10:07→18:24)
[2018-03-26] MEDS: FLUVOXAMINE 25 MG PO SCH ×2 (10:07→18:25)
[2018-03-26] MEDS: Silver Sulfadiazine 1% Cream (25 gm) TP SCH ×2 (10:09→18:25)
[2018-03-26] MEDS: MEROPENEM 500 MG in NS 500 MG/50 ML BAG IVPB SCH ×2 (10:11→21:49)
[2018-03-26] MEDS: Insulin Lispro (humaLOG) MIX 75/25(10 ml) SC SCH ×2 (10:33→18:27)
--- NOTE | 2018-03-26 12:47 | PN ---
DATE: 03/26/2018 REASON FOR CONSULTATION AND FOLLOWUP: Cardiac evaluation, post operation I and D, possible reexploration of left wound. SUBJECTIVE: The patient denies any chest pain, shortness of breath, or any palpitation. The patient's elevated INR is 1.6 probably secondary to shock liver, it is a septic shock. Discussed with Dr. Bills. Patient may need debridement and wound care. RECOMMENDATION: Today INR is 1.45, which is still mildly elevated with a PT 16.8. History of CAD, status post stent at 02/2013. Plavix was on hold. Diabetes, hypertension, hyperlipidemia, end-stage renal disease, on dialysis; PAD, status post septic shock. We will give vitamin K again 5 mg, check INR tomorrow. We will follow with you. The patient is cleared to go forward with moderate risk. We will follow with you. The patient is off Plavix. We will give 1 dose of vitamin K and repeat PT/INR in the morning. As mentioned, the patient is cleared to go for surgery with a moderate risk. Discussed with Dr. Bills and discussed with patient. We will do PT/INR and CBC in the morning. This note is in addition to dictated by nurse practitioner, Liz Jiménez. Thank you Dr. Zhu for providing us the opportunity in taking care of the patient, Mohamud Ramirez. Stephanie Anton MD
--- NOTE | 2018-03-26 13:54 | CP.PCM.PN ---
<Migue Tapia - Last Filed: 03/26/18 13:48> Subjective - Date & Time of Evaluation Date of Evaluation: 03/26/18 Time of Evaluation: 13:48 - Subjective Subjective: Podiatry progress note for Dr. Little 57 y/o F patient seen and evaluated 10 days S/P incision and drainage of the left foot secondary to diabetic foot abscess and gangrenous changes to the left foot. Patient was seen after HBO session. Patient breathing improved. Patient states that she is aware of the surgery that will be done tomorrow. Patient denies any other pedal complaints at this time. Patient states that she has no pain to her left foot. Patient denies any overnight N/V/F/C/CP. Objective - Vital Signs/Intake and Output Vital Signs (last 24 hours): Temp Pulse Resp BP Pulse Ox 98.1 F 107 H 19 144/72 96 03/26/18 09:02 03/26/18 10:06 03/26/18 09:02 03/26/18 10:06 03/26/18 09:02 - Medications Medications: Current Medications Acetaminophen (Tylenol 325mg Tab) 650 mg PO Q6H PRN PRN Reason: Pain, moderate (4-7) Last Admin: 03/21/18 18:08 Dose: 650 mg Albuterol/Ipratropium (Duoneb 3 Mg/0.5 Mg (3 Ml) Ud) 3 ml IH [id number] [facility] Last Admin: 03/26/18 10:58 Dose: 3 ml Albuterol/Ipratropium (Duoneb 3 Mg/0.5 Mg (3 Ml) Ud) 3 ml IH [id number] PRN PRN Reason: Shortness of Breath Allopurinol (Zyloprim) 100 mg PO DAILY [facility] Last Admin: 03/26/18 10:05 Dose: 100 mg Aspirin (Ecotrin) 81 mg PO DAILY [facility] Last Admin: 03/26/18 10:05 Dose: 81 mg Atorvastatin Calcium (Lipitor) 20 mg PO DAILY [facility] Last Admin: 03/18/18 09:50 Dose: 20 mg Calcium Acetate (Phoslo) 1,334 mg PO WM [facility] Last Admin: 03/26/18 10:04 Dose: 1,334 mg Furosemide (Lasix) 40 mg PO DAILY [facility] Last Admin: 03/26/18 10:05 Dose: 40 mg Hydralazine HCl (Apresoline) 25 mg PO BID [facility] Last Admin: 03/26/18 10:06 Dose: 25 mg Meropenem/Sodium Chloride (Merrem Iv 500 Mg/Ns 50 Ml) 500 mg in 50 mls @ 100 mls/hr IVPB Q12 [facility]; Protocol Stop: 04/03/18 15:34 Last Admin: 03/26/18 10:11 Dose: 100 mls/hr Insulin Detemir (Levemir) 20 unit SC [facility] Last Admin: 03/25/18 22:32 Dose: 20 unit Insulin Human Lispro (Humalog Med) 0 units SC [facility] Last Admin: 03/26/18 10:07 Dose: 8 units Insulin Lispro Protam/Lispro Human (Humalog Mix 75/25) 10 units SC ACBD [facility] Last Admin: 03/25/18 17:14 Dose: 10 units Methylprednisolone (Solu-Medrol) 30 mg IV Q12 [facility] Last Admin: 03/26/18 10:05 Dose: 30 mg Metoprolol Tartrate (Lopressor) 50 mg PO BID [facility] Last Admin: 03/26/18 10:06 Dose: 50 mg Montelukast Sodium (Singulair) 10 mg PO [facility] Last Admin: 03/25/18 22:15 Dose: 10 mg Home Med - Fluvoxamine [Luvox] 25 Mg 25 mg PO BID [facility] Last Admin: 03/26/18 10:07 Dose: Not Given Home Med - Umeclidinium [place] [Incruse Ellipta] 1 Puff 1 puff IH [facility] Last Admin: 03/25/18 22:00 Dose: Not Given Nortriptyline HCl (Pamelor) 50 mg PO [facility] Last Admin: 03/25/18 22:15 Dose: 50 mg Oxychlorosene Sodium (Clorpactin Wcs-90) 2 gm TOP Q12 [facility] Last Admin: 03/26/18 10:09 Dose: Not Given Oxychlorosene Sodium (Clorpactin Wcs-90) 2 gm TOP DAILY [facility] Last Admin: 03/26/18 10:03 Dose: 2 gm Pantoprazole Sodium (Protonix Ec Tab) 20 mg PO ACB [facility] Last Admin: 03/26/18 06:40 Dose: 20 mg Phytonadione (Vitamin K Tab) 5 mg PO ONCE ONE Stop: 03/26/18 20:01 Potassium Chloride (Klor-Con 10) 20 meq PO BRK [facility] Last Admin: 03/26/18 10:03 Dose: 20 meq Potassium Chloride (K-Dur 20 Meq Er Tab) 20 meq PO BRK [facility] Last Admin: 03/26/18 10:04 Dose: 20 meq Quetiapine Fumarate (Seroquel Xr) 100 mg PO HS [facility]; Protocol Last Admin: 03/25/18 22:15 Dose: 100 mg Silver Sulfadiazine (Silvadene 1% 25 Gm) 1 gm TP BID [facility] Last Admin: 03/26/18 10:09 Dose: 1 gm Tizanidine HCl (Zanaflex) 2 mg PO Q6 [facility] Last Admin: 03/26/18 05:57 Dose: 2 mg - Labs Labs: 03/26/18 06:00 03/25/18 06:00 PT 16.8 SECONDS (9.4-12.5) H 03/26/18 06:00 INR 1.45 03/26/18 06:00 APTT 35.8 Seconds (25.1-36.5) 03/21/18 00:23 - Constitutional Appears: Well, Non-toxic, No Acute Distress - Head Exam Head Exam: ATRAUMATIC, NORMOCEPHALIC - Extremities Exam Additional comments: Bilateral Lower Extremity Exam VASC: DP/PT 2/4 b/l, Temp gradient warm to warm on the R side and warm to warmer on the left side from proximal to distal. Left toes 1 to 5 are gangrenous up to the level of the met shafts. Erythema extends above the L ankle J. NEURO: Gross and protective sensations are diminished B/L. DERM: Gangrenous changes noted with non-viable tissue noted to all the digits to the level of the metatarsals shafts with the skin peeling on the great toe, surgical incision sites to the left foot dorsally, laterally and plantarly are full thickness with granular tissues present. Positive purulent drainage noted from the plantar incision, blisters noted to the dorsum of the foot and anterior ankle with positive serous drainage, , no malodor, large incision noted plantarly with necrotic tissue. Right foot, stable ulceration noted to the tip of the 2nd digit MSK: No pain on palpating the left foot and the periulcerative area of the Right foot. Left ankle ROM is WNL. - Neurological Exam Neurological Exam: Alert, Awake, Oriented x3 - Psychiatric Exam Psychiatric exam: Normal Affect, Normal Mood Assessment and Plan - Assessment and Plan (Free Text) Assessment: 57 y/o F patient seen and evaluated 10 days S/P incision and drainage of the left foot secondary to diabetic foot abscess and gangrenous changes to the left foot. Plan: Patient seen and evaluated at bedside with Dr. Little Discussed plan in detail with Dr. Little Charts, labs and vitals reviewed: Afebrile, WBC 8.1 Patient received 1 unit of PRBCs yesterday. Her Hb today is 10.2 Patient Left foot dressings were changed with sterile instruments Left foot wounds was cleaned with sterile saline then dressed using xeroform and DSD, ABD and kerlix No compression has been applied at this time Patient went to Hyperbaric Oxygen Treatment today. Explained to the patient that she will need staged surgeries trying to salvage her left foot. Explained to the patient that there are no guarantees regarding the success of the surgeries to sulvage the left foot and she might need at the end Left BKA. Explained to the patient the benefits, risks and possible complications of the surgery. Patient expressed verbal understanding. Patient agrees to do the surgery. Patient is aware with her TMA surgery and debridement of the tissues to ozuna. Patient scheduled for Left TMA Sunday03/27/2018 at 7:30 am at the OR. Patient has a stable cardiac status from the cardiology standpoint. Podiatry will carefully continue to follow up the patient while in house. <Rodríguez Little - Last Filed: 03/26/18 16:00> Objective - Vital Signs/Intake and Output Vital Signs (last 24 hours): Temp Pulse Resp BP Pulse Ox 98.1 F 107 H 19 144/72 96 03/26/18 09:02 03/26/18 10:06 03/26/18 09:02 03/26/18 10:06 03/26/18 09:02 - Medications Medications: Current Medications Acetaminophen (Tylenol 325mg Tab) 650 mg PO Q6H PRN PRN Reason: Pain, moderate (4-7) Last Admin: 03/21/18 18:08 Dose: 650 mg Albuterol/Ipratropium (Duoneb 3 Mg/0.5 Mg (3 Ml) Ud) 3 ml IH [id number] [facility] Last Admin: 03/26/18 10:58 Dose: 3 ml Albuterol/Ipratropium (Duoneb 3 Mg/0.5 Mg (3 Ml) Ud) 3 ml IH [id number] PRN PRN Reason: Shortness of Breath Allopurinol (Zyloprim) 100 mg PO DAILY [facility] Last Admin: 03/26/18 10:05 Dose: 100 mg Aspirin (Ecotrin) 81 mg PO DAILY [facility] Last Admin: 03/26/18 10:05 Dose: 81 mg Atorvastatin Calcium (Lipitor) 20 mg PO DAILY [facility] Last Admin: 03/18/18 09:50 Dose: 20 mg Calcium Acetate (Phoslo) 1,334 mg PO WM [facility] Last Admin: 03/26/18 14:34 Dose: 1,334 mg Furosemide (Lasix) 40 mg PO DAILY [facility] Last Admin: 03/26/18 10:05 Dose: 40 mg Hydralazine HCl (Apresoline) 25 mg PO BID [facility] Last Admin: 03/26/18 10:06 Dose: 25 mg Meropenem/Sodium Chloride (Merrem Iv 500 Mg/Ns 50 Ml) 500 mg in 50 mls @ 100 mls/hr IVPB Q12 [facility]; Protocol Stop: 04/03/18 15:34 Last Admin: 03/26/18 10:11 Dose: 100 mls/hr Insulin Detemir (Levemir) 20 unit SC [facility] Last Admin: 03/25/18 22:32 Dose: 20 unit Insulin Human Lispro (Humalog Med) 0 units SC ACHS [facility] Last Admin: 03/26/18 12:45 Dose: 8 units Insulin Lispro Protam/Lispro Human (Humalog Mix 75/25) 10 units SC ACBD [facility] Last Admin: 03/26/18 10:33 Dose: 10 units Methylprednisolone (Solu-Medrol) 30 mg IV Q12 [facility] Last Admin: 03/26/18 10:05 Dose: 30 mg Metoprolol Tartrate (Lopressor) 50 mg PO BID [facility] Last Admin: 03/26/18 10:06 Dose: 50 mg Montelukast Sodium (Singulair) 10 mg PO [facility] Last Admin: 03/25/18 22:15 Dose: 10 mg Home Med - Fluvoxamine [Luvox] 25 Mg 25 mg PO BID [facility] Last Admin: 03/26/18 10:07 Dose: Not Given Home Med - Umeclidinium [place] [Incruse Ellipta] 1 Puff 1 puff IH [facility] Last Admin: 03/25/18 22:00 Dose: Not Given Nortriptyline HCl (Pamelor) 50 mg PO HS [facility] Last Admin: 03/25/18 22:15 Dose: 50 mg Oxychlorosene Sodium (Clorpactin Wcs-90) 2 gm TOP Q12 [facility] Last Admin: 03/26/18 10:09 Dose: Not Given Oxychlorosene Sodium (Clorpactin Wcs-90) 2 gm TOP DAILY [facility] Last Admin: 03/26/18 10:03 Dose: 2 gm Pantoprazole Sodium (Protonix Ec Tab) 20 mg PO ACB [facility] Last Admin: 03/26/18 06:40 Dose: 20 mg Phytonadione (Vitamin K Tab) 5 mg PO ONCE ONE Stop: 03/26/18 20:01 Potassium Chloride (Klor-Con 10) 20 meq PO BRK [facility] Last Admin: 03/26/18 10:03 Dose: 20 meq Potassium Chloride (K-Dur 20 Meq Er Tab) 20 meq PO BRK [facility] Last Admin: 03/26/18 10:04 Dose: 20 meq Quetiapine Fumarate (Seroquel Xr) 100 mg PO HS [facility]; Protocol Last Admin: 03/25/18 22:15 Dose: 100 mg Silver Sulfadiazine (Silvadene 1% 25 Gm) 1 gm TP BID [facility] Last Admin: 03/26/18 10:09 Dose: 1 gm Tizanidine HCl (Zanaflex) 2 mg PO Q6 [facility] Last Admin: 03/26/18 13:21 Dose: 2 mg - Labs Labs: 03/26/18 06:00 03/25/18 06:00 PT 16.8 SECONDS (9.4-12.5) H 03/26/18 06:00 INR 1.45 03/26/18 06:00 APTT 35.8 Seconds (25.1-36.5) 03/21/18 00:23 Attending/Attestation - Attestation I have personally seen and examined this patient.: Yes I have fully participated in the care of the patient.: Yes I have reviewed all pertinent clinical information, including history, physical exam and plan: Yes
--- NOTE | 2018-03-26 15:37 | PN ---
DATE: 03/26/2018 SUBJECTIVE: The patient is in bed, in no acute distress, nontoxic. She is awake and alert. She is doing well. PHYSICAL EXAMINATION: VITAL SIGNS: On exam, temperature is 98, blood pressure is 140/70, respiratory rate of 18, heart rate of 107. HEENT HEENT: Examination of HEENT is unremarkable. NECK: Supple. LUNGS: Have decreased breath sounds. HEART: Normal S1, S2. ABDOMEN: Examination is soft. LABORATORY DATA: Laboratory examination reveals a white count of 8.1, hemoglobin of 10 and BUN of 57, creatinine of 2.7, and microbiology is reviewed. ASSESSMENT/PLAN: Is a 57-year-old female who was admitted with septic shock secondary to sensitive Staph aureus bacteremia secondary to a sensitive Staph aureus left foot abscess, status post incision and drainage and Charcot's foot and a gangrenous foot, acute kidney injury on top of chronic kidney injury and the patient is currently scheduled for a possible left transmetatarsal amputation and we will continue the present course. We will follow closely with you and review of orders reveal the patient to be on meropenem since the patient is ALLERGIC TO CEFTAROLINE and has renal insufficiency. Terrance Kent MD
--- NOTE | 2018-03-26 17:16 | CP.PCM.PCO ---
Physician Communication Note - Physician Communication Note Physician Communication Note: Pt. for TMA/debridement of tissue left foot tommorow, 03/27.
--- NOTE | 2018-03-26 19:55 | PN ---
DATE: 03/26/2018 SUBJECTIVE: The patient is currently seen on 3R. She is lying comfortable in bed. She anticipates going to surgery tomorrow to have a left TMA at 7:30 in the morning. She tolerated yesterday's ultrafiltration and transfusion without difficulty. Her creatinine has remained stable in the mid 2 range. The patient will likely not require any more dialysis. OBJECTIVE: INTAKE/OUTPUT: Intake, output not charted for the last 24 hours. VITAL SIGNS: Blood pressure 142/74, pulse of 107, temperature 98.1, respiratory rate of 19, pulse ox is 96%. HEENT: Shows her to be normocephalic, atraumatic. Conjunctivae are pale. Sclerae are nonicteric. NECK: Supple. No neck vein distention. CARDIOPULMONARY: Regular rate and rhythm with MR/TR. No S3. No S4. No rub. LUNGS: Clear to auscultation and percussion with no rales, rhonchi or wheezing. Positive Trialysis catheter, right chest wall. ABDOMEN: Soft. Bowel sounds normal. No rebound, guarding or masses. EXTREMITIES: Show a midline catheter in her left antecubital fossa. She has a dressing over her left foot. No lower extremity pitting edema appreciated. Diminished lower extremity pulses. LABORATORY DATA AND IMAGING: CBC, white blood cell count today down to 8.1, hemoglobin 10.2 with a platelet count of 431,000. The patient is status post transfusion with yesterday's ultrafiltration procedure. Coags, PT 16.8 with an INR of 1.45. Chemistries; normal electrolytes from 03/25. BUN 57 with a creatinine of 2.7. Glucose last check was 273. Calcium is 8.6. Last phosphorus level was 6.3, but this has not been repeated in several days. Last magnesium level was 1.9. Liver enzymes are normal. Albumin is low at 2.6. Microbiology positive for MSSA growing from the wound and from the blood. MEDICATIONS: Medication list reviewed. The patient is currently on Incruse Ellipta, Apresoline, Clorpactin, DuoNeb, Ecotrin, Luvox, insulin, potassium, p.o. Lasix, Lipitor is on hold, Lopressor, meropenem, Pamelor, PhosLo, Protonix, Seroquel, Silvadene, Singulair, Solu-Medrol, Tylenol p.r.n., vitamin K, Zanaflex, and allopurinol. ASSESSMENT: 1. Acute renal failure superimposed on chronic kidney disease stage 3. The patient's baseline creatinine is in the low to mid 2 range. Because of her life-threatening hyperkalemia and metabolic acidosis, the patient received several dialysis treatments. She is status post incision and drainage of an abscess of her left foot. She is scheduled tomorrow for a left transmetatarsal amputation. 2. Status post severe sepsis, methicillin-susceptible Staphylococcus aureus foot abscess with bacteremia. The patient remains on antibiotic therapy being followed by Infectious Disease and being followed by Podiatry. 3. History of anemia in part secondary to chronic kidney disease and in part secondary to acute renal failure and sepsis with bone marrow suppression. The patient received 1 unit of packed red blood cells yesterday. Hemoglobin is excellent at 10.2. 4. History of left ventricular hypertrophy with mitral regurgitation, tricuspid regurgitation. Ejection fraction 60% with pulmonary hypertension, stable. 5. History of chronic obstructive pulmonary disease secondary to cigarettes in the past. 6. History of secondary hyperparathyroidism. Need to repeat her phosphorus level. With improvement in her renal parameters, perhaps we could decrease or discontinue binder therapy. 7. History of hypertension. Blood pressure is controlled on present medical therapy. 8. History of coronary artery disease status post percutaneous transluminal coronary angioplasty stent. PLAN: 1. In all likelihood, the patient will not require any further dialysis. I discussed with the staff on 3R and with the patient that if her creatinine remains stable 24 to 48 hours post the surgical procedure, I believe that her Trialysis catheter could be removed. She has a working IV access point in her left antecubital fossa midline catheter. 2. Recheck phosphorus level and decide whether or not the patient requires binder therapy. 3. Close followup post surgery. 4. Continue to try and achieve better glucose control with sliding scale insulin and long-acting insulin. 5. P.r.n. Arahannahp, should her hemoglobin drop below 10. 6. We will follow the patient closely in the postoperative period. Brent Sheth MD MTDD
[2018-03-26] MEDS: Insulin Detemir 100 units/ml Vial (Levemir) SC SCH (21:41)
[2018-03-26] MEDS: QUEtiapine 50 mg XR Tab PO SCH (21:42)
[2018-03-26] MEDS: UMECLIDINIUM BROMIDE IH SCH (21:48)
--- NOTE | 2018-03-26 23:55 | PN ---
DATE: 03/26/2018 SUBJECTIVE: The patient is 57 years old, seen and examined, seems to be a little upset for the surgery tomorrow. Poor appetite. PHYSICAL EXAMINATION: VITAL SIGNS: She is afebrile, pulse 59, respirations 19, and blood pressure 125/74. LUNGS: Bilateral fair airflow. No rhonchi or crackles. HEART: S1 and S2 audible. ABDOMEN: Soft, obese, and nontender. No rebound. No guarding. NEUROLOGICAL: The patient is awake, alert, and oriented, able to communicate. LABORATORY DATA: WBC is 8.1, hemoglobin 10.2, hematocrit 31.9, and platelets 431. PT 16.8, INR 1.45. Blood sugar is 392. Foot wound has Staphylococcus aureus. ASSESSMENT AND PLAN: 1. Staphylococcus aureus bacteremia. 2. Left foot abscess, status post incision and drainage. 3. Peripheral vascular disease. 4. Hypertension. 5. Insulin-dependent diabetes. 6. Charcot foot. 7. Acute renal failure. PLAN: The patient received blood transfusion yesterday. She was started on small dose of steroids. Seems to be doing better with that. Her blood sugar has shot up because of steroid. I will cut down from 30 to 20 mg twice a day and I will increase her insulin coverage. The patient is scheduled for ____ tomorrow. Colt Zhu MD
[2018-03-27] MEDS: Albuterol-Ipratrop 3 mg / 0.5 (3 ml) UD IH SCH ×6 (01:07→19:55)
[2018-03-27] MEDS: Insulin Lispro (humaLOG) MEDIUM Coverage SC SCH ×5 (04:51→21:51)
[2018-03-27 07:20] LABS: EOS % 0.1 % (1.5-5.0); GRAN # 7.82 (1.4-6.5); GRAN % 90.5 % (50.0-68.0); HEMOGLOBIN 9.5 g/dL (12.0-16.0); INR 1.4; LYMPH # 0.6 (1.2-3.4); LYMPH % 7.1 % (22.0-35.0); MEAN CELL VOLUME 89.9 fl (80.0-105.0); MEAN CORPUSCULAR HEMOGLOBIN 28.1 pg (25.0-35.0); MEAN CORPUSCULAR HGB CONC 31.3 g/dl (31.0-37.0); MEAN PLATELET VOLUME 10.8 fl (7.0-11.0); MONO # 0.2 (0.1-0.6); MONO % 2.3 % (1.0-6.0); PLATELET COUNT 498 10^3/uL (120.0-450.0); PROTHROMBIN TIME 16.2 SECONDS (9.4-12.5); RBC 3.38 10^6/uL (3.5-6.1); RED CELL DISTRIBUTION WIDTH 16.1 % (11.5-14.5); WHITE BLOOD COUNT 8.6 10^3/uL (4.5-11.0)
--- NOTE | 2018-03-27 07:23 | CP.PCM.PN ---
Subjective - Date & Time of Evaluation Date of Evaluation: 03/27/18 Time of Evaluation: 06:20 - Subjective Subjective: Awake, alert, sitting in bed, no distress Reason for consultation and follow up: Cardiac evaluation of coronary artery disease, post op follow up of I & D of left foot abscess Seen and examined by me and Dr. Anton Objective - Vital Signs/Intake and Output Vital Signs (last 24 hours): Temp Pulse Resp BP Pulse Ox 98.8 F 89 19 125/75 95 03/26/18 18:00 03/26/18 18:24 03/26/18 18:00 03/26/18 18:24 03/26/18 18:00 - Medications Medications: Current Medications Acetaminophen (Tylenol 325mg Tab) 650 mg PO Q6H PRN PRN Reason: Pain, moderate (4-7) Last Admin: 03/21/18 18:08 Dose: 650 mg Albuterol/Ipratropium (Duoneb 3 Mg/0.5 Mg (3 Ml) Ud) 3 ml IH [id number] [facility] Last Admin: 03/27/18 04:31 Dose: 3 ml Albuterol/Ipratropium (Duoneb 3 Mg/0.5 Mg (3 Ml) Ud) 3 ml IH [id number] PRN PRN Reason: Shortness of Breath Last Admin: 03/26/18 17:16 Dose: 3 ml Allopurinol (Zyloprim) 100 mg PO DAILY [facility] Last Admin: 03/26/18 10:05 Dose: 100 mg Aspirin (Ecotrin) 81 mg PO DAILY [facility] Last Admin: 03/26/18 10:05 Dose: 81 mg Atorvastatin Calcium (Lipitor) 20 mg PO DAILY [facility] Last Admin: 03/18/18 09:50 Dose: 20 mg Calcium Acetate (Phoslo) 1,334 mg PO WM [facility] Last Admin: 03/26/18 18:23 Dose: 1,334 mg Furosemide (Lasix) 40 mg PO DAILY [facility] Last Admin: 03/26/18 10:05 Dose: 40 mg Hydralazine HCl (Apresoline) 25 mg PO BID [facility] Last Admin: 03/26/18 18:24 Dose: 25 mg Meropenem/Sodium Chloride (Merrem Iv 500 Mg/Ns 50 Ml) 500 mg in 50 mls @ 100 mls/hr IVPB Q12 [facility]; Protocol Stop: 04/03/18 15:34 Last Admin: 03/26/18 21:49 Dose: 100 mls/hr Insulin Detemir (Levemir) 20 unit SC [facility] Last Admin: 03/26/18 21:41 Dose: 20 unit Insulin Human Lispro (Humalog Med) 0 units SC ACHS [facility] Last Admin: 03/27/18 04:51 Dose: 2 units Insulin Lispro Protam/Lispro Human (Humalog Mix 75/25) 15 units SC ACBD [facility] Methylprednisolone (Solu-Medrol) 20 mg IV Q12 [facility] Last Admin: 03/26/18 21:46 Dose: 20 mg Metoprolol Tartrate (Lopressor) 50 mg PO BID [facility] Last Admin: 03/26/18 18:23 Dose: 50 mg Montelukast Sodium (Singulair) 10 mg PO [facility] Last Admin: 03/26/18 21:42 Dose: 10 mg Home Med - Fluvoxamine [Luvox] 25 Mg 25 mg PO BID [facility] Last Admin: 03/26/18 18:25 Dose: Not Given Home Med - Umeclidinium [place] [Incruse Ellipta] 1 Puff 1 puff [facility] Last Admin: 03/26/18 21:48 Dose: Not Given Nortriptyline HCl (Pamelor) 50 mg PO [facility] Last Admin: 03/26/18 21:45 Dose: 50 mg Oxychlorosene Sodium (Clorpactin Wcs-90) 2 gm TOP Q12 [facility] Last Admin: 03/26/18 23:32 Dose: Not Given Oxychlorosene Sodium (Clorpactin Wcs-90) 2 gm TOP DAILY [facility] Last Admin: 03/26/18 10:03 Dose: 2 gm Pantoprazole Sodium (Protonix Ec Tab) 20 mg PO ACB [facility] Last Admin: 03/26/18 06:40 Dose: 20 mg Potassium Chloride (Klor-Con 10) 20 meq PO BRK [facility] Last Admin: 03/26/18 10:03 Dose: 20 meq Potassium Chloride (K-Dur 20 Meq Er Tab) 20 meq PO BRK [facility] Last Admin: 03/26/18 10:04 Dose: 20 meq Quetiapine Fumarate (Seroquel Xr) 100 mg PO [facility]; Protocol Last Admin: 03/26/18 21:42 Dose: 100 mg Silver Sulfadiazine (Silvadene 1% 25 Gm) 1 gm TP BID [facility] Last Admin: 03/26/18 18:25 Dose: 1 gm Tizanidine HCl (Zanaflex) 2 mg PO Q6 [facility] Last Admin: 03/27/18 05:47 Dose: Not Given - Labs Labs: 03/26/18 06:00 03/25/18 06:00 PT 16.2 SECONDS (9.4-12.5) H 03/27/18 06:00 INR 1.40 03/27/18 06:00 APTT 35.8 Seconds (25.1-36.5) 03/21/18 00:23 - Constitutional Appears: Non-toxic, No Acute Distress - Head Exam Head Exam: NORMAL INSPECTION, NORMOCEPHALIC - Eye Exam Eye Exam: Normal appearance Pupil Exam: NORMAL ACCOMODATION - ENT Exam ENT Exam: Mucous Membranes Moist, Normal Exam - Respiratory Exam Respiratory Exam: Decreased Breath Sounds, Clear to Ausculation Bilateral, NORMAL BREATHING PATTERN - Cardiovascular Exam Cardiovascular Exam: +S1, +S2 Additional comments: no JVD - GI/Abdominal Exam GI & Abdominal Exam: Soft, Normal Bowel Sounds - Extremities Exam Extremities Exam: Full ROM Additional comments: left foot dressing - Neurological Exam Neurological Exam: Alert, Awake, Oriented x3 - Psychiatric Exam Psychiatric exam: Normal Affect, Normal Mood - Skin Skin Exam: Dry, Normal Color, Warm Assessment and Plan - Assessment and Plan (Free Text) Assessment: A 57 year old female who came in to the ER due to left foot swelling. History of coronary artery disease post stents on 02/2013. COPD, obesity, fibromyalgia, HTN, CHF, DM, Diabetic neuropathy, Charcot foot, kidney disease, endometriosis, cellulitis of lower extremities. ESRD on hemodialysis. Had I & D of left foot. Wound positive for Staphyloccoccus aureaus. On IV antibiotics, Post blood transfusion with hemodialysis for low H/H.elevated INR from septic shock, she was not on coumadin before. Plavix discontinued.On Hyperbaric treatment for left foot wound. Discontinued Plavix and Aspirin.Being followed up by Podiatry. Vitamin K given for elevated INR. For left transmetatarsal amputation today. Cleared from cardiac standpoint with moderate risk. Plan: For left transmetatarsal amputation today. Cleared from cardiac standpoint with moderate risk. Denies chest pain or shortness of breath,No distress, Blood pressure controlled Cardiac status stable Heart rate controlled INR level today 1.4 Lipitor 20 mg daily,Lopressor 50 mg BID, Hydralazine 25 mg BID Potassium Chloride 20 meq daily Continue antibiotics as per ID Will restart Cozaar at low dose 6.25 mg BID (CHF) Continue current treatment Continue current medications Chart reviewed Will follow up Plan and treatment discussed with Dr. Anton
[2018-03-27 07:26] LABS: ALB/GLOB RATIO 0.7 (1.1-1.8); CALCIUM 8.7 mg/dL (8.4-10.5)
[2018-03-27] MEDS ORDERED: Lidocaine 2% Inj (20ml) ONE (07:28)
[2018-03-27] MEDS ORDERED: Etomidate 20 mg/10ml Inj IV ONE ×2 (07:52→08:22)
[2018-03-27] MEDS ORDERED: Midazolam 2 MG/2 ML VIAL ONE ×2 (07:52→08:56)
[2018-03-27] MEDS ORDERED: ePHEDrine 50 mg/ml Inj ONE (07:55)
[2018-03-27 08:09] LABS: LYMPHOCYTE 6 % (22.0-35.0); MONOCYTE 2 % (1.0-6.0); NEUTROPHIL 92 % (50.0-70.0)
[2018-03-27 08:11] LABS: PLATELET ESTIMATE NORMAL (NORMAL)
[2018-03-27] MEDS: Insulin Lispro (humaLOG) MIX 75/25(10 ml) SC SCH ×3 (09:01→18:37)
[2018-03-27] MEDS: Potassium Chloride 10 mEq ER Tab PO SCH (09:02)
[2018-03-27] MEDS: Potassium Chloride 20 mEq ER Tab PO SCH (09:02)
[2018-03-27] MEDS: Pantoprazole 20 mg EC Tab PO SCH (09:03)
--- NOTE | 2018-03-27 09:35 | PCM.SURG1 ---
Surgeon's Initial Post Op Note - Surgeon's Notes Surgeon: Dr. Guillermina Bills. DPM [employer] Clerk: Dr. Migue Tapia. DPM/PGY1 Type of Anesthesia: IV Sedation, Local Anesthesia Administered By: Dr. Grimes Pre-Operative Diagnosis: Left foot gangrene Operative Findings: See Dictation. Injectables: 20 cc of 2% lidocaine. Materials: 2-0 Vicryl tie, 2-0 Vicryl sutures. Post-Operative Diagnosis: Same Operation Performed: Left Transmetatarsal amputation Specimen/Specimens Removed: - Left amputated forefoot. - Deep tissue culture. Estimated Blood Loss: EBL {In ML}: 100 Blood Products Given: N/A Drains Used: No Drains Post-Op Condition: Good Date of Surgery/Procedure: 03/27/18 Time of Surgery/Procedure: 09:36
[2018-03-27] MEDS ORDERED: HYDROmorphone 0.5 mg/0.5 ml ISec IVP PRN (09:42)
[2018-03-27] MEDS ORDERED: Sodium Chloride 0.9% 1,000 ML IV SCH (09:45)
[2018-03-27] MEDS: Oxychlorosene Topical 2 gm Packet TOP SCH ×3 (10:51→21:55)
[2018-03-27] MEDS: FLUVOXAMINE 25 MG PO SCH ×2 (10:52→18:36)
[2018-03-27] MEDS: Silver Sulfadiazine 1% Cream (25 gm) TP SCH ×2 (10:53→18:40)
[2018-03-27] MEDS: MEROPENEM 500 MG in NS 500 MG/50 ML BAG IVPB SCH ×2 (10:53→21:50)
[2018-03-27] MEDS: MethylPREDNISolone 40 mg Vial IV SCH ×2 (10:53→21:52)
--- NOTE | 2018-03-27 11:47 | PN ---
DATE: 03/27/2018 REASON FOR CONSULTATION AND FOLLOWUP: Cardiac evaluation, possible I and D and drainage for abscess. Today INR is 1.4 and given vitamin K last night. Patient is clear to go for I and D off Plavix for more than 5 days, last angioplasty in 02/2013. Patient is cleared to go for the moderate risk, comorbidity discussed with Dr. Little. Patient admitted with septic and septic shock, so off all antihypertensive medication, now restarted on low dose beta-bev, 50 metoprolol twice . Since the patient is in dialysis hold, it is assured the patient needs dialysis half-way, we will start MARYLU or ARB. Continue metoprolol and avoid nephrotoxic medication. We will follow with you. Thank you Dr. Zhu for providing us the opportunity in taking care of the patient, Mohamud Ramirez. In the interim, continue hydralazine. As mentioned once the patient is started on dialysis or stabilized because the patient is on dialysis now and not sure the half-way or short term. 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 In the interim, continue beta-bev, continue baby aspirin, off Plavix. Consider packed RBC transfusion if the hemoglobin goes below 8, now the hemoglobin is 9.5. Continue preoperative beta-bev. This note is in addition to dictated by the nurse practitioner, Liz Jiménez. Patient is clear to go for, we will follow with you. Stephanie Anton MD
[2018-03-27 13:30] LABS: HEMOGLOBIN 7.6 g/dL (12.0-16.0); MEAN CORPUSCULAR HEMOGLOBIN 28.3 pg (25.0-35.0); MEAN CORPUSCULAR HGB CONC 31.4 g/dl (31.0-37.0); MEAN PLATELET VOLUME 10.9 fl (7.0-11.0); RBC 2.69 10^6/uL (3.5-6.1); WHITE BLOOD COUNT 8.6 10^3/uL (4.5-11.0)
--- NOTE | 2018-03-27 13:48 | CP.PCM.PN ---
<Larry Thomas - Last Filed: 03/27/18 13:45> Subjective - Date & Time of Evaluation Date of Evaluation: 03/27/18 Time of Evaluation: 07:15 - Subjective Subjective: Infectious disease progress note for Dr. Peacock/Dr. Kent service - Edilberto Thomas PGY3 Patient seen and examined at bedside this morning. No acute overnight events or new complaints reported. Scheduled for TMA today by podiatry. Denies cp, palpitations, SOB. Objective - Vital Signs/Intake and Output Vital Signs (last 24 hours): Temp Pulse Resp BP Pulse Ox 97.9 F 96 H 20 123/75 98 03/27/18 10:11 03/27/18 10:52 03/27/18 10:11 03/27/18 10:52 03/27/18 10:11 Intake and Output: 03/27/18 03/27/18 06:59 18:59 Intake Total 830 Output Total 1075 Balance -245 - Medications Medications: Current Medications Acetaminophen (Tylenol 325mg Tab) 650 mg PO Q6H PRN PRN Reason: Pain, moderate (4-7) Last Admin: 03/21/18 18:08 Dose: 650 mg Albuterol/Ipratropium (Duoneb 3 Mg/0.5 Mg (3 Ml) Ud) 3 ml IH [id number] [facility] Last Admin: 03/27/18 11:15 Dose: Not Given Albuterol/Ipratropium (Duoneb 3 Mg/0.5 Mg (3 Ml) Ud) 3 ml IH [id number] PRN PRN Reason: Shortness of Breath Last Admin: 03/26/18 17:16 Dose: 3 ml Allopurinol (Zyloprim) 100 mg PO DAILY [facility] Last Admin: 03/27/18 10:54 Dose: 100 mg Aspirin (Ecotrin) 81 mg PO DAILY [facility] Last Admin: 03/27/18 10:51 Dose: 81 mg Atorvastatin Calcium (Lipitor) 20 mg PO DAILY [facility] Last Admin: 03/18/18 09:50 Dose: 20 mg Calcium Acetate (Phoslo) 1,334 mg PO WM [facility] Last Admin: 03/27/18 13:11 Dose: 1,334 mg Furosemide (Lasix) 40 mg PO DAILY [facility] Last Admin: 03/27/18 10:52 Dose: 40 mg Hydralazine HCl (Apresoline) 25 mg PO BID [facility] Last Admin: 03/27/18 10:50 Dose: 25 mg Hydromorphone HCl (Dilaudid) 2 mg IVP Q4H PRN PRN Reason: Pain, severe (8-10) Hydromorphone HCl (Dilaudid) 0.5 mg IVP Q15M PRN PRN Reason: Pain, moderate (4-7) Meropenem/Sodium Chloride (Merrem Iv 500 Mg/Ns 50 Ml) 500 mg in 50 mls @ 100 mls/hr IVPB Q12 [facility]; Protocol Stop: 04/03/18 15:34 Last Admin: 03/27/18 10:53 Dose: 100 mls/hr Insulin Detemir (Levemir) 20 unit SC [facility] Last Admin: 03/26/18 21:41 Dose: 20 unit Insulin Human Lispro (Humalog Med) 0 units SC [facility] Last Admin: 03/27/18 13:10 Dose: 7 units Insulin Lispro Protam/Lispro Human (Humalog Mix 75/25) 18 units SC ACBD [facility] Methylprednisolone (Solu-Medrol) 20 mg IV Q12 [facility] Last Admin: 03/27/18 10:53 Dose: 20 mg Metoprolol Tartrate (Lopressor) 50 mg PO BID [facility] Last Admin: 03/27/18 10:52 Dose: 50 mg Montelukast Sodium (Singulair) 10 mg PO [facility] Last Admin: 03/26/18 21:42 Dose: 10 mg Home Med - Fluvoxamine [Luvox] 25 Mg 25 mg PO BID [facility] Last Admin: 03/27/18 10:52 Dose: Not Given Home Med - Umeclidinium [place] [Incruse Ellipta] 1 Puff 1 puff IH [facility] Last Admin: 03/26/18 21:48 Dose: Not Given Nortriptyline HCl (Pamelor) 50 mg PO [facility] Last Admin: 03/26/18 21:45 Dose: 50 mg Oxychlorosene Sodium (Clorpactin Wcs-90) 2 gm TOP Q12 [facility] Last Admin: 03/27/18 10:51 Dose: Not Given Oxychlorosene Sodium (Clorpactin Wcs-90) 2 gm TOP DAILY [facility] Last Admin: 03/27/18 10:51 Dose: Not Given Pantoprazole Sodium (Protonix Ec Tab) 20 mg PO ACB [facility] Last Admin: 03/27/18 09:03 Dose: Not Given Potassium Chloride (Klor-Con 10) 20 meq PO BRK [facility] Last Admin: 03/27/18 09:02 Dose: Not Given Potassium Chloride (K-Dur 20 Meq Er Tab) 20 meq PO BRK [facility] Last Admin: 03/27/18 09:02 Dose: Not Given Quetiapine Fumarate (Seroquel Xr) 100 mg PO HS [facility]; Protocol Last Admin: 03/26/18 21:42 Dose: 100 mg Silver Sulfadiazine (Silvadene 1% 25 Gm) 1 gm TP BID [facility] Last Admin: 03/27/18 10:53 Dose: Not Given Tizanidine HCl (Zanaflex) 2 mg PO Q6 [facility] Last Admin: 03/27/18 13:11 Dose: 2 mg - Labs Labs: 03/27/18 13:00 03/27/18 06:00 PT 16.2 SECONDS (9.4-12.5) H 03/27/18 06:00 INR 1.40 03/27/18 06:00 APTT 35.8 Seconds (25.1-36.5) 03/21/18 00:23 - Constitutional Appears: No Acute Distress - Head Exam Head Exam: ATRAUMATIC, NORMAL INSPECTION, NORMOCEPHALIC - Eye Exam Eye Exam: EOMI, PERRL - ENT Exam ENT Exam: Mucous Membranes Moist - Respiratory Exam Respiratory Exam: absent: Rales, Rhonchi, Wheezes - Cardiovascular Exam Cardiovascular Exam: +S1, +S2. absent: Clicks, Gallop, Rubs - GI/Abdominal Exam GI & Abdominal Exam: Soft. absent: Distended, Firm, Guarding, Rigid, Tenderness, Rebound - Neurological Exam Neurological Exam: Alert, Awake, Oriented x3 - Psychiatric Exam Psychiatric exam: Normal Affect, Normal Mood Assessment and Plan - Assessment and Plan (Free Text) Plan: 57yo female with history of COPD, obesity, fibromyalgia, recurrent UTI, restless leg syndrome, HTN, chronic CHF, DM, diabetic neuropathy, CKD, endometriosis, charcot foot and cellulitis of LE admitted for septic shock secondary to staph aureus bacteremia and staph aureus foot abscess s/p I&D in the setting of acute kidney injury. 1. resolved septic shock secondary to staph aureus bacteremia 2. Staph aureus left foot abscess s/p I&D 3. JAMIL on CKD 4. COPD, chronic 5. CHF, chronic 6. Normocytic anemia 7. Hx of hypertension 8. Diabetes mellitus type 2 9. Diabetic neuropathy -Scheduled for left TMA today given worsening gangrenous changes to the left foot -She presently requires 4-6 weeks of meropenem however course may be shortened to ~7-10 days depending on margins post amputation -Unable to undergo hyperbaric oxygen treatment -MRI negative for osteomyelitis -Echocardiogram revealed no apparent thrombus; LVEF 59%; see full report -Continue current management as per medicine/podiatry teams Patient seen and case discussed/reviewed with attending, Dr. Peacock <Jan Peacock - Last Filed: 03/27/18 21:48> Objective - Vital Signs/Intake and Output Vital Signs (last 24 hours): Temp Pulse Resp BP Pulse Ox 97.8 F 76 18 120/74 98 03/27/18 16:40 03/27/18 18:38 03/27/18 16:40 03/27/18 18:38 03/27/18 16:40 - Medications Medications: Current Medications Acetaminophen (Tylenol 325mg Tab) 650 mg PO Q6H PRN PRN Reason: Pain, moderate (4-7) Last Admin: 03/21/18 18:08 Dose: 650 mg Albuterol/Ipratropium (Duoneb 3 Mg/0.5 Mg (3 Ml) Ud) 3 ml IH [id number] [facility] Last Admin: 03/27/18 19:55 Dose: 3 ml Albuterol/Ipratropium (Duoneb 3 Mg/0.5 Mg (3 Ml) Ud) 3 ml IH [id number] PRN PRN Reason: Shortness of Breath Last Admin: 03/26/18 17:16 Dose: 3 ml Allopurinol (Zyloprim) 100 mg PO DAILY [facility] Last Admin: 03/27/18 10:54 Dose: 100 mg Aspirin (Ecotrin) 81 mg PO DAILY [facility] Last Admin: 03/27/18 10:51 Dose: 81 mg Atorvastatin Calcium (Lipitor) 20 mg PO DAILY [facility] Last Admin: 03/18/18 09:50 Dose: 20 mg Calcium Acetate (Phoslo) 1,334 mg PO [facility] Last Admin: 03/27/18 18:39 Dose: 1,334 mg Furosemide (Lasix) 40 mg PO DAILY [facility] Last Admin: 03/27/18 10:52 Dose: 40 mg Hydralazine HCl (Apresoline) 25 mg PO BID [facility] Last Admin: 03/27/18 18:35 Dose: 25 mg Hydromorphone HCl (Dilaudid) 2 mg IVP Q4H PRN PRN Reason: Pain, severe (8-10) Hydromorphone HCl (Dilaudid) 0.5 mg IVP Q15M PRN PRN Reason: Pain, moderate (4-7) Meropenem/Sodium Chloride (Merrem Iv 500 Mg/Ns 50 Ml) 500 mg in 50 mls @ 100 mls/hr IVPB Q12 [facility]; Protocol Stop: 04/03/18 15:34 Last Admin: 03/27/18 10:53 Dose: 100 mls/hr Insulin Detemir (Levemir) 20 unit SC [facility] Last Admin: 03/26/18 21:41 Dose: 20 unit Insulin Human Lispro (Humalog Med) 0 units SC ACHS [facility] Last Admin: 03/27/18 18:36 Dose: 7 units Insulin Lispro Protam/Lispro Human (Humalog Mix 75/25) 18 units SC ACBD [facility] Last Admin: 03/27/18 18:37 Dose: 18 units Methylprednisolone (Solu-Medrol) 20 mg IV Q12 [facility] Last Admin: 03/27/18 10:53 Dose: 20 mg Metoprolol Tartrate (Lopressor) 50 mg PO BID [facility] Last Admin: 03/27/18 18:38 Dose: 50 mg Montelukast Sodium (Singulair) 10 mg PO [facility] Last Admin: 03/26/18 21:42 Dose: 10 mg Home Med - Fluvoxamine [Luvox] 25 Mg 25 mg PO BID [facility] Last Admin: 03/27/18 18:36 Dose: Not Given Home Med - Umeclidinium [place] [Incruse Ellipta] 1 Puff 1 puff IH [facility] Last Admin: 03/26/18 21:48 Dose: Not Given Nortriptyline HCl (Pamelor) 50 mg PO [facility] Last Admin: 03/26/18 21:45 Dose: 50 mg Oxychlorosene Sodium (Clorpactin Wcs-90) 2 gm TOP Q12 [facility] Last Admin: 03/27/18 10:51 Dose: Not Given Oxychlorosene Sodium (Clorpactin Wcs-90) 2 gm TOP DAILY [facility] Last Admin: 03/27/18 10:51 Dose: Not Given Pantoprazole Sodium (Protonix Ec Tab) 20 mg PO ACB [facility] Last Admin: 03/27/18 09:03 Dose: Not Given Potassium Chloride (Klor-Con 10) 20 meq PO BRK [facility] Last Admin: 03/27/18 09:02 Dose: Not Given Potassium Chloride (K-Dur 20 Meq Er Tab) 20 meq PO BRK [facility] Last Admin: 03/27/18 09:02 Dose: Not Given Quetiapine Fumarate (Seroquel Xr) 100 mg PO HS [facility]; Protocol Last Admin: 03/26/18 21:42 Dose: 100 mg Silver Sulfadiazine (Silvadene 1% 25 Gm) 1 gm TP BID [facility] Last Admin: 03/27/18 18:40 Dose: Not Given Tizanidine HCl (Zanaflex) 2 mg PO Q6 [facility] Last Admin: 03/27/18 18:40 Dose: 2 mg - Labs Labs: 03/27/18 13:00 03/27/18 06:00 PT 16.2 SECONDS (9.4-12.5) H 03/27/18 06:00 INR 1.40 03/27/18 06:00 APTT 35.8 Seconds (25.1-36.5) 03/21/18 00:23 Assessment and Plan - Assessment and Plan (Free Text) Plan: Infectious diseases Attending Physician Attestation Patient seen and examined, discussed with medical center manager. I have reviewed the patient's history of present illness, past medical, social, personal and family histories, pertinent physical exam findings, course so far in this hospital admission, pertinent laboratory and imaging results. I agree with the above findings, assessment and plan. In addition, will continue Merrem for this patient with sepsis with MSSA bacteremia from left foot severe skin and skin s tructure infection. For transmetatarsal amputation today and will follow up OR cultures and pathology. Will continue to monitor clinically.
--- NOTE | 2018-03-27 14:25 | RAD ---
Date of service: 03/27/2018 PROCEDURE: Left Foot Radiographs. HISTORY: S/P L TMA COMPARISON: None. FINDINGS: BONES: There has been amputation at the level of the proximal metatarsals. The remainder the foot is unremarkable JOINTS: Normal. SOFT TISSUES: Normal. OTHER FINDINGS: None. IMPRESSION: There has been amputation at the level of the proximal metatarsals. The remainder the foot is unremarkable
--- NOTE | 2018-03-27 16:06 | CP.PCM.PN ---
<Migue Tapia - Last Filed: 03/27/18 16:53> Subjective - Date & Time of Evaluation Date of Evaluation: 03/27/18 Time of Evaluation: 16:02 - Subjective Subjective: Podiatry progress note for Dr. Bills 57 y/o F patient seen and evaluated S/P TMA left foot secondary to diabetic foot abscess and gangrenous changes to the left foot. Patient was seen after HBO session. Patient breathing improved. Patient states that she is aware of the surgery that will be done tomorrow. Patient denies any other pedal complaints at this time. Patient states that she has no pain to her left foot. Patient denies any postoperative N/V/F/C/CP. Objective - Vital Signs/Intake and Output Vital Signs (last 24 hours): Temp Pulse Resp BP Pulse Ox 97.9 F 96 H 20 123/75 98 03/27/18 10:11 03/27/18 10:52 03/27/18 10:11 03/27/18 10:52 03/27/18 10:11 Intake and Output: 03/27/18 03/27/18 06:59 18:59 Intake Total 830 Output Total 1075 Balance -245 - Medications Medications: Current Medications Acetaminophen (Tylenol 325mg Tab) 650 mg PO Q6H PRN PRN Reason: Pain, moderate (4-7) Last Admin: 03/21/18 18:08 Dose: 650 mg Albuterol/Ipratropium (Duoneb 3 Mg/0.5 Mg (3 Ml) Ud) 3 ml IH [id number] [facility] Last Admin: 03/27/18 11:15 Dose: Not Given Albuterol/Ipratropium (Duoneb 3 Mg/0.5 Mg (3 Ml) Ud) 3 ml IH [id number] PRN PRN Reason: Shortness of Breath Last Admin: 03/26/18 17:16 Dose: 3 ml Allopurinol (Zyloprim) 100 mg PO DAILY [facility] Last Admin: 03/27/18 10:54 Dose: 100 mg Aspirin (Ecotrin) 81 mg PO DAILY [facility] Last Admin: 03/27/18 10:51 Dose: 81 mg Atorvastatin Calcium (Lipitor) 20 mg PO DAILY [facility] Last Admin: 03/18/18 09:50 Dose: 20 mg Calcium Acetate (Phoslo) 1,334 mg PO WM [facility] Last Admin: 03/27/18 13:11 Dose: 1,334 mg Furosemide (Lasix) 40 mg PO DAILY [facility] Last Admin: 03/27/18 10:52 Dose: 40 mg Hydralazine HCl (Apresoline) 25 mg PO BID [facility] Last Admin: 03/27/18 10:50 Dose: 25 mg Hydromorphone HCl (Dilaudid) 2 mg IVP Q4H PRN PRN Reason: Pain, severe (8-10) Hydromorphone HCl (Dilaudid) 0.5 mg IVP Q15M PRN PRN Reason: Pain, moderate (4-7) Meropenem/Sodium Chloride (Merrem Iv 500 Mg/Ns 50 Ml) 500 mg in 50 mls @ 100 mls/hr IVPB Q12 [facility]; Protocol Stop: 04/03/18 15:34 Last Admin: 03/27/18 10:53 Dose: 100 mls/hr Insulin Detemir (Levemir) 20 unit SC [facility] Last Admin: 03/26/18 21:41 Dose: 20 unit Insulin Human Lispro (Humalog Med) 0 units SC [facility] Last Admin: 03/27/18 13:10 Dose: 7 units Insulin Lispro Protam/Lispro Human (Humalog Mix 75/25) 18 units SC ACBD [facility] Methylprednisolone (Solu-Medrol) 20 mg IV Q12 [facility] Last Admin: 03/27/18 10:53 Dose: 20 mg Metoprolol Tartrate (Lopressor) 50 mg PO BID [facility] Last Admin: 03/27/18 10:52 Dose: 50 mg Montelukast Sodium (Singulair) 10 mg PO [facility] Last Admin: 03/26/18 21:42 Dose: 10 mg Home Med - Fluvoxamine [Luvox] 25 Mg 25 mg PO BID [facility] Last Admin: 03/27/18 10:52 Dose: Not Given Home Med - Umeclidinium [place] [Incruse Ellipta] 1 Puff 1 puff IH [facility] Last Admin: 03/26/18 21:48 Dose: Not Given Nortriptyline HCl (Pamelor) 50 mg PO [facility] Last Admin: 03/26/18 21:45 Dose: 50 mg Oxychlorosene Sodium (Clorpactin Wcs-90) 2 gm TOP Q12 [facility] Last Admin: 03/27/18 10:51 Dose: Not Given Oxychlorosene Sodium (Clorpactin Wcs-90) 2 gm TOP DAILY [facility] Last Admin: 03/27/18 10:51 Dose: Not Given Pantoprazole Sodium (Protonix Ec Tab) 20 mg PO ACB [facility] Last Admin: 03/27/18 09:03 Dose: Not Given Potassium Chloride (Klor-Con 10) 20 meq PO BRK [facility] Last Admin: 03/27/18 09:02 Dose: Not Given Potassium Chloride (K-Dur 20 Meq Er Tab) 20 meq PO BRK [facility] Last Admin: 03/27/18 09:02 Dose: Not Given Quetiapine Fumarate (Seroquel Xr) 100 mg PO HS [facility]; Protocol Last Admin: 03/26/18 21:42 Dose: 100 mg Silver Sulfadiazine (Silvadene 1% 25 Gm) 1 gm TP BID [facility] Last Admin: 03/27/18 10:53 Dose: Not Given Tizanidine HCl (Zanaflex) 2 mg PO Q6 [facility] Last Admin: 03/27/18 13:11 Dose: 2 mg - Labs Labs: 03/27/18 13:00 03/27/18 06:00 PT 16.2 SECONDS (9.4-12.5) H 03/27/18 06:00 INR 1.40 03/27/18 06:00 APTT 35.8 Seconds (25.1-36.5) 03/21/18 00:23 - Constitutional Appears: Well, Non-toxic, No Acute Distress - Head Exam Head Exam: ATRAUMATIC, NORMOCEPHALIC - Extremities Exam Additional comments: Bilateral Lower Extremity Exam Dressing left intact, no strike through. Dressing was C/D/I. - Neurological Exam Neurological Exam: Alert, Awake, Oriented x3 - Psychiatric Exam Psychiatric exam: Normal Affect, Normal Mood Assessment and Plan - Assessment and Plan (Free Text) Assessment: 57 y/o F patient seen and evaluated S/P TMA left foot secondary to diabetic foot abscess and gangrenous changes to the left foot. Plan: Patient seen and evaluated at bedside with Dr. Bills Discussed plan in detail with Dr. Bills Charts, labs and vitals reviewed: Afebrile, WBC 8.6, Hb 7.6 Patient will receive 1 unit of PRBCs today. Patient general condition is good postoperative Patient is planned to go to the OR Sunday03/29/2018 for graft application and wound VAC application Podiatry will carefully continue to follow up the patient while in house. <Guillermina Bills - Last Filed: 03/29/18 14:59> Objective - Vital Signs/Intake and Output Vital Signs (last 24 hours): Temp Pulse Resp BP Pulse Ox 97.7 F 97 H 20 121/68 94 L 03/29/18 06:00 03/29/18 12:24 03/29/18 06:00 03/29/18 12:24 03/29/18 06:00 Intake and Output: 03/29/18 03/29/18 06:59 18:59 Intake Total 480 Output Total 1150 Balance -670 - Medications Medications: Current Medications Albuterol/Ipratropium (Duoneb 3 Mg/0.5 Mg (3 Ml) Ud) 3 ml IH [id number] [facility] Last Admin: 03/29/18 11:22 Dose: Not Given Albuterol/Ipratropium (Duoneb 3 Mg/0.5 Mg (3 Ml) Ud) 3 ml IH [id number] PRN PRN Reason: Shortness of Breath Last Admin: 03/26/18 17:16 Dose: 3 ml Allopurinol (Zyloprim) 100 mg PO DAILY [facility] Last Admin: 03/29/18 12:28 Dose: 100 mg Aspirin (Ecotrin) 81 mg PO DAILY [facility] Last Admin: 03/29/18 12:21 Dose: 81 mg Atorvastatin Calcium (Lipitor) 20 mg PO DAILY [facility] Last Admin: 03/18/18 09:50 Dose: 20 mg Calcium Acetate (Phoslo) 1,334 mg PO WM [facility] Last Admin: 03/29/18 12:26 Dose: 1,334 mg Furosemide (Lasix) 40 mg PO DAILY [facility] Last Admin: 03/29/18 12:24 Dose: 40 mg Hydralazine HCl (Apresoline) 25 mg PO BID [facility] Last Admin: 03/29/18 12:20 Dose: 25 mg Hydromorphone HCl (Dilaudid) 2 mg IVP Q4H PRN PRN Reason: Pain, severe (8-10) Last Admin: 03/29/18 00:38 Dose: 2 mg Meropenem/Sodium Chloride (Merrem Iv 500 Mg/Ns 50 Ml) 500 mg in 50 mls @ 100 mls/hr IVPB Q12 [facility]; Protocol Stop: 04/03/18 15:34 Last Admin: 03/29/18 12:25 Dose: 100 mls/hr Insulin Detemir (Levemir) 20 unit SC HS [facility] Last Admin: 03/28/18 21:25 Dose: 20 unit Insulin Human Lispro (Humalog Med) 0 units SC ACHS [facility] Last Admin: 03/29/18 12:21 Dose: 1 units Insulin Lispro Protam/Lispro Human (Humalog Mix 75/25) 18 units SC ACBD [facility] Last Admin: 03/29/18 12:22 Dose: 18 units Metoprolol Tartrate (Lopressor) 50 mg PO BID [facility] Last Admin: 03/29/18 12:24 Dose: 50 mg Montelukast Sodium (Singulair) 10 mg PO [facility] Last Admin: 03/28/18 21:25 Dose: 10 mg Home Med - Fluvoxamine [Luvox] 25 Mg 25 mg PO BID [facility] Last Admin: 03/29/18 12:21 Dose: Not Given Home Med - Umeclidinium [place] [Incruse Ellipta] 1 Puff 1 puff IH [facility] Last Admin: 03/28/18 22:00 Dose: Not Given Nortriptyline HCl (Pamelor) 50 mg PO [facility] Last Admin: 03/28/18 21:25 Dose: 50 mg Oxychlorosene Sodium (Clorpactin Wcs-90) 2 gm TOP Q12 [facility] Last Admin: 03/29/18 12:20 Dose: Not Given Oxychlorosene Sodium (Clorpactin Wcs-90) 2 gm TOP DAILY [facility] Last Admin: 03/29/18 12:21 Dose: Not Given Pantoprazole Sodium (Protonix Ec Tab) 20 mg PO ACB [facility] Last Admin: 03/29/18 12:27 Dose: 20 mg Potassium Chloride (Klor-Con 10) 20 meq PO BRK [facility] Last Admin: 03/29/18 12:23 Dose: 20 meq Potassium Chloride (K-Dur 20 Meq Er Tab) 20 meq PO BRK [facility] Last Admin: 03/29/18 12:23 Dose: 20 meq Prednisone (Prednisone Tab) 10 mg PO DAILY [facility] Last Admin: 03/29/18 12:27 Dose: 10 mg Quetiapine Fumarate (Seroquel Xr) 100 mg PO HS [facility]; Protocol Last Admin: 03/28/18 21:24 Dose: 100 mg Silver Sulfadiazine (Silvadene 1% 25 Gm) 1 gm TP BID [facility] Last Admin: 03/29/18 12:27 Dose: Not Given Tizanidine HCl (Zanaflex) 2 mg PO Q6 [facility] Last Admin: 03/29/18 12:27 Dose: 2 mg - Labs Labs: 03/29/18 07:14 03/29/18 07:14 PT 15.0 SECONDS (9.4-12.5) H 03/29/18 07:14 INR 1.30 03/29/18 07:14 APTT 35.8 Seconds (25.1-36.5) 03/21/18 00:23 Attending/Attestation - Attestation I have personally seen and examined this patient.: Yes I have fully participated in the care of the patient.: Yes I have reviewed all pertinent clinical information, including history, physical exam and plan: Yes
--- NOTE | 2018-03-27 16:20 | PN ---
DATE: 03/27/2018 SUBJECTIVE: The patient is a 57-year-old, seen and examined, had left foot TMA. Left foot is in the dressing. PHYSICAL EXAMINATION GENERAL: Sleepy, but arousable. VITAL SIGNS: She is afebrile, pulse 96, respirations 20, blood pressure 123/75. LUNGS: Bilateral fair airflow. No rhonchi or crackles. HEART: S1,S2 audible. ABDOMEN: Soft, obese, nontender. No rebound, no guarding. NEUROLOGIC: She is sleepy, but arousable. EXTREMITIES: Left stump is in the dressing. LABORATORY DATA: WBC 8.6, hemoglobin 9.5, hematocrit 30.4, platelets 298. PT 16.2, INR 1.40. Chemistry; sodium 135, potassium 4.8, chloride 99, CO2 of 24, BUN 83, creatinine 2.6, blood sugar of 390. ASSESSMENT: 1. Staphylococcus aureus bacteremia. 2. Staphylococcus aureus left foot infection, status post transmetatarsal amputation. 3. Insulin-dependent diabetes. 4. Hypertension. 5. Hyperlipidemia. 6. Charcot's disease of the feet. PLAN: We will continue the patient on analgesics. She is on nebulizer treatment. I will increase her insulin to 18 units before meals and continue her Levemir, monitor her blood sugar closely. We will follow up her CBC and CMP. Colt Zhu MD
--- NOTE | 2018-03-27 17:13 | CP.PCM.PCO ---
Physician Communication Note - Physician Communication Note Physician Communication Note: Pt went to OR for transmetatarsal amputation left foot,Per podiatry OR [facility]
--- NOTE | 2018-03-27 19:55 | OP ---
PROCEDURE DATE: 03/27/2018 SURGEON: Guillermina Bills DPM. ROAD MENDER: Marianna Tapia DPM/PGY-1. ANESTHESIOLOGIST: Barrett Grimes MD. ANESTHESIA: IV sedation and local anesthesia. PREOPERATIVE DIAGNOSIS: Left foot gangrene. POSTOPERATIVE DIAGNOSIS: Left foot gangrene. NAME OF THE PROCEDURE: Left foot transmetatarsal amputation with debridement of all necrotic tissues. INDICATION: The patient is a 57-year-old female with above diagnosis. The patient has exhausted all the conservative treatments at this time and now requires surgical intervention. The patient has signed the consent after careful explanation of risks, benefits, complications and alternative for surgical procedure. No guarantees were given nor implied. NPO status was confirmed prior to taking the patient to the OR. PREPARATION: The patient was brought to the operating room and placed on the operating table in a supine position. Time-out was performed for identification of the correct patient and the procedure. After induction of IV sedation, using 20 mL of 2% plain lidocaine injected locally in an ankle block fashion. After confirming the local anesthesia status, the left lower extremity was then prepped and draped in a normal sterile manner and the procedure began. No tourniquet was used during the procedure. DESCRIPTION OF PROCEDURE: Attention was directed to the distal aspect of the left foot for which a #15 blade was used to create a fishmouth incision circumferentially around the mid foot. At this time, all the soft tissue was freed from the shaft of the metatarsal bone, using a sagittal saw, dissection of metatarsal bones 1 through 5 at the level of mid shaft of the metatarsal bone. All devitalized bone and tissues were then passed off the field and sent to pathology. Then using fresh 15 blade all the necrotic tissues were debrided both Plantar and dorsal down to the level of the muscles. It was noted that the patient at the level of the dissection is having good vascularity with decent bleeding. Using electrocautery, 2-0 Vicryl sutures and also by direct compression hemostasis achieved. It was also noted necrotic ulcer on the lateral side of the foot and using #15 blade this ulcer was debrided. Then using Misonix, more debridement was done to the remaining necrotic tissues at the stump and the lateral ulcer. The site was then irrigated with copious amount of saline solution with bulb syringe. Bone left open for staged surgery and Surgicel applied for more hemostasis to the wound. Then wound was cleaned using saline and dressed using Adaptic, ABD, 4 x 4 gauge, Kerlix and light Coban. POSTOPERATIVE CONDITION: The patient tolerated the anesthesia and the procedure well and was then escorted to the recovery room with vital signs stable and neurovascular status intact to the left lower extremity. The patient to be nonweightbearing to the left lower extremity, Podiatry will continue to follow up the patient while in house. The patient will follow up with Dr. Guillermina Bills in the wound care center upon discharge to home. MARIANNA TAPIA DPM/PGY-1 Guillermina Bills DPM MTDD
[2018-03-27] MEDS: Insulin Detemir 100 units/ml Vial (Levemir) SC SCH (21:51)
[2018-03-27] MEDS: QUEtiapine 50 mg XR Tab PO SCH (21:51)
[2018-03-27] MEDS: HYDROmorphone 1 mg/ml ISec IVP PRN (21:52)
[2018-03-28] MEDS: Albuterol-Ipratrop 3 mg / 0.5 (3 ml) UD IH SCH ×6 (00:40→20:07)
--- NOTE | 2018-03-28 01:14 | PN ---
DATE: 03/27/2018 SUBJECTIVE: The patient is seen, lying in bed. She is awake. She is alert. She is comfortable. She reports feeling much better. She underwent TMA yesterday. This is postoperative day #1. She denies any chest pain. She denies any shortness of breath. She denies any abdominal pain. PHYSICAL EXAMINATION: GENERAL: Middle-aged lady, sitting in bed. VITAL SIGNS: Blood pressure 123/75, heart rate 76, respiratory rate 18, temperature 97.8. HEENT: Normocephalic, atraumatic. Positive pallor. NECK: Supple. No JVD. LUNGS: Bilateral equal air entry. Bilateral equal expansion. Crackles, right base. CARDIAC: S1 and S2. Regular rate and rhythm. No murmur. No rub. ABDOMEN: Obese, distended, soft, nontender. Bowel sounds present. EXTREMITIES: Dressing of the left foot present. INTAKE AND OUTPUT: 830/1075. LABORATORY DATA: WBC 8.6, hemoglobin 9.5, hematocrit 30, and platelets 498. Sodium 135, potassium 4.8, chloride 99, CO2 of 24, BUN 83, creatinine 2.6, glucose 390, calcium 8.7, phosphorus 6, magnesium 1.3, and albumin 3. Wound culture from 03/27/2018, pending. CURRENT MEDICATIONS: Apresoline, Dilaudid, DuoNeb, Ecotrin, insulin, potassium, Lasix, Lipitor, Lopressor, meropenem, PhosLo, and Zyloprim. ASSESSMENT: 1. Left foot abscess. 2. Staphylococcus bacteremia. 3. Status post transmetatarsal amputation, postoperative day 0. 4. Uap-wzedvai-kyanrtolt diabetes mellitus. 5. Acute kidney injury, superimposed on chronic kidney disease stage 3. 6. Hypertension. 7. Chronic obstructive pulmonary disease exacerbation. 8. Congestive heart failure. PLAN: 1. Continue current management. 2. No indication for ultrafiltration or dialysis today. 3. Continue Lasix. 4. Continue antibiotics. 5. Continue wound care. Elva Frank MD
[2018-03-28] MEDS: UMECLIDINIUM BROMIDE IH SCH ×2 (02:15→22:00)
[2018-03-28 06:37] LABS: EOS % 0.1 % (1.5-5.0); GRAN # 8.16 (1.4-6.5); GRAN % 89.8 % (50.0-68.0); HEMOGLOBIN 8.5 g/dL (12.0-16.0); LYMPH # 0.7 (1.2-3.4); LYMPH % 7.3 % (22.0-35.0); MEAN CELL VOLUME 90.4 fl (80.0-105.0); MEAN CORPUSCULAR HEMOGLOBIN 28.1 pg (25.0-35.0); MEAN CORPUSCULAR HGB CONC 31.1 g/dl (31.0-37.0); MEAN PLATELET VOLUME 10.6 fl (7.0-11.0); MONO # 0.3 (0.1-0.6); MONO % 2.8 % (1.0-6.0); RBC 3.02 10^6/uL (3.5-6.1); RED CELL DISTRIBUTION WIDTH 15.5 % (11.5-14.5); WHITE BLOOD COUNT 9.1 10^3/uL (4.5-11.0)
[2018-03-28 07:09] LABS: ALB/GLOB RATIO 0.8 (1.1-1.8); ALBUMIN 2.7 g/dL (3.0-4.8); CALCIUM 8.1 mg/dL (8.4-10.5)
--- NOTE | 2018-03-28 07:11 | CP.PCM.PN ---
Subjective - Date & Time of Evaluation Date of Evaluation: 03/28/18 Time of Evaluation: 06:45 - Subjective Subjective: No distress, easily awaken,denies shortness of breath Reason for consultation and follow up: Cardiac evaluation of coronary artery disease, post op follow up of I & D of left foot abscess Seen and examined by me and Dr. Anton Objective - Vital Signs/Intake and Output Vital Signs (last 24 hours): Temp Pulse Resp BP Pulse Ox 97.8 F 84 20 130/78 98 03/28/18 03:25 03/28/18 03:25 03/28/18 03:25 03/28/18 03:25 03/27/18 16:40 Intake and Output: 03/28/18 03/28/18 06:59 18:59 Intake Total 1090 Output Total 1200 Balance -110 - Medications Medications: Current Medications Acetaminophen (Tylenol 325mg Tab) 650 mg PO Q6H PRN PRN Reason: Pain, moderate (4-7) Last Admin: 03/21/18 18:08 Dose: 650 mg Albuterol/Ipratropium (Duoneb 3 Mg/0.5 Mg (3 Ml) Ud) 3 ml IH [id number] [facility] Last Admin: 03/28/18 03:55 Dose: 3 ml Albuterol/Ipratropium (Duoneb 3 Mg/0.5 Mg (3 Ml) Ud) 3 ml IH [id number] PRN PRN Reason: Shortness of Breath Last Admin: 03/26/18 17:16 Dose: 3 ml Allopurinol (Zyloprim) 100 mg PO DAILY [facility] Last Admin: 03/27/18 10:54 Dose: 100 mg Aspirin (Ecotrin) 81 mg PO DAILY [facility] Last Admin: 03/27/18 10:51 Dose: 81 mg Atorvastatin Calcium (Lipitor) 20 mg PO DAILY [facility] Last Admin: 03/18/18 09:50 Dose: 20 mg Calcium Acetate (Phoslo) 1,334 mg PO WM [facility] Last Admin: 03/27/18 18:39 Dose: 1,334 mg Furosemide (Lasix) 40 mg PO DAILY [facility] Last Admin: 03/27/18 10:52 Dose: 40 mg Hydralazine HCl (Apresoline) 25 mg PO BID [facility] Last Admin: 03/27/18 18:35 Dose: 25 mg Hydromorphone HCl (Dilaudid) 2 mg IVP Q4H PRN PRN Reason: Pain, severe (8-10) Last Admin: 03/27/18 21:52 Dose: 2 mg Hydromorphone HCl (Dilaudid) 0.5 mg IVP Q15M PRN PRN Reason: Pain, moderate (4-7) Meropenem/Sodium Chloride (Merrem Iv 500 Mg/Ns 50 Ml) 500 mg in 50 mls @ 100 mls/hr IVPB Q12 [facility]; Protocol Stop: 04/03/18 15:34 Last Admin: 03/27/18 21:50 Dose: 100 mls/hr Insulin Detemir (Levemir) 20 unit SC [facility] Last Admin: 03/27/18 21:51 Dose: 20 unit Insulin Human Lispro (Humalog Med) 0 units SC [facility] Last Admin: 03/27/18 21:51 Dose: 2 units Insulin Lispro Protam/Lispro Human (Humalog Mix 75/25) 18 units SC ACBD [facility] Last Admin: 03/27/18 18:37 Dose: 18 units Methylprednisolone (Solu-Medrol) 20 mg IV Q12 [facility] Last Admin: 03/27/18 21:52 Dose: 20 mg Metoprolol Tartrate (Lopressor) 50 mg PO BID [facility] Last Admin: 03/27/18 18:38 Dose: 50 mg Montelukast Sodium (Singulair) 10 mg PO [facility] Last Admin: 03/27/18 21:52 Dose: 10 mg Home Med - Fluvoxamine [Luvox] 25 Mg 25 mg PO BID [facility] Last Admin: 03/27/18 18:36 Dose: Not Given Home Med - Umeclidinium [place] [Incruse Ellipta] 1 Puff 1 puff IH [facility] Last Admin: 03/28/18 02:15 Dose: Not Given Nortriptyline HCl (Pamelor) 50 mg PO [facility] Last Admin: 03/27/18 21:57 Dose: 50 mg Oxychlorosene Sodium (Clorpactin Wcs-90) 2 gm TOP Q12 [facility] Last Admin: 03/27/18 21:55 Dose: Not Given Oxychlorosene Sodium (Clorpactin Wcs-90) 2 gm TOP DAILY [facility] Last Admin: 03/27/18 10:51 Dose: Not Given Pantoprazole Sodium (Protonix Ec Tab) 20 mg PO ACB [facility] Last Admin: 03/27/18 09:03 Dose: Not Given Potassium Chloride (Klor-Con 10) 20 meq PO BRK [facility] Last Admin: 03/27/18 09:02 Dose: Not Given Potassium Chloride (K-Dur 20 Meq Er Tab) 20 meq PO BRK [facility] Last Admin: 03/27/18 09:02 Dose: Not Given Quetiapine Fumarate (Seroquel Xr) 100 mg PO HS [facility]; Protocol Last Admin: 03/27/18 21:51 Dose: 100 mg Silver Sulfadiazine (Silvadene 1% 25 Gm) 1 gm TP BID [facility] Last Admin: 03/27/18 18:40 Dose: Not Given Tizanidine HCl (Zanaflex) 2 mg PO Q6 [facility] Last Admin: 03/28/18 05:54 Dose: 2 mg - Labs Labs: 03/28/18 06:15 03/27/18 06:00 PT 16.2 SECONDS (9.4-12.5) H 03/27/18 06:00 INR 1.40 03/27/18 06:00 APTT 35.8 Seconds (25.1-36.5) 03/21/18 00:23 - Constitutional Appears: Non-toxic, No Acute Distress - Head Exam Head Exam: NORMAL INSPECTION, NORMOCEPHALIC - Eye Exam Eye Exam: Normal appearance Pupil Exam: NORMAL ACCOMODATION - ENT Exam ENT Exam: Mucous Membranes Moist, Normal Exam - Respiratory Exam Respiratory Exam: Decreased Breath Sounds, NORMAL BREATHING PATTERN - Cardiovascular Exam Cardiovascular Exam: +S1, +S2 Additional comments: right IJ trialysis - GI/Abdominal Exam GI & Abdominal Exam: Soft, Normal Bowel Sounds - Extremities Exam Additional comments: left foot dressing - Neurological Exam Neurological Exam: Alert, Awake, Oriented x3 - Psychiatric Exam Psychiatric exam: Normal Affect, Normal Mood - Skin Skin Exam: Dry, Normal Color, Warm Assessment and Plan - Assessment and Plan (Free Text) Assessment: A 57 year old female who came in to the ER due to left foot swelling. History of coronary artery disease post stents on 02/2013. COPD, obesity, fibromyalgia, HTN, CHF, DM, Diabetic neuropathy, Charcot foot, kidney disease, endometriosis, cellulitis of lower extremities. ESRD on hemodialysis. Had I & D of left foot. Wound positive for Staphyloccoccus aureaus. On IV antibiotics, Post blood transfusion with hemodialysis for low H/H.elevated INR from septic shock, she was not on coumadin before. Plavix discontinued.On Hyperbaric treatment for left foot wound. Discontinued Plavix and Aspirin.Being followed up by Podiatry. Vitamin K given for elevated INR. Status post left transmetatarsal amputation POD#1. Low H/H post op, transfused 1 unit of PRBC. Plan: Status post left transmetatarsal amputation POD#1 One unit PRBC given post op due to low H/H Repeat H/H 8.5/27.3 Denies chest pain or shortness of breath,No distress, Blood pressure controlled Cardiac status stable Heart rate controlled Lipitor 20 mg daily,Lopressor 50 mg BID, Hydralazine 25 mg BID Potassium Chloride 20 meq daily Continue antibiotics as per ID Continue current treatment Continue current medications Chart reviewed Will follow up For possible skin grafting on Sunday Plan and treatment discussed with Dr. Anton
[2018-03-28] MEDS: Insulin Lispro (humaLOG) MEDIUM Coverage SC SCH ×5 (08:32→21:26)
[2018-03-28] MEDS: Insulin Lispro (humaLOG) MIX 75/25(10 ml) SC SCH ×3 (08:33→17:16)
[2018-03-28] MEDS: Oxychlorosene Topical 2 gm Packet TOP SCH ×3 (12:07→21:37)
[2018-03-28] MEDS: FLUVOXAMINE 25 MG PO SCH (12:12)
[2018-03-28] MEDS: Potassium Chloride 20 mEq ER Tab PO SCH (12:13)
[2018-03-28] MEDS: Potassium Chloride 10 mEq ER Tab PO SCH (12:14)
[2018-03-28] MEDS: MEROPENEM 500 MG in NS 500 MG/50 ML BAG IVPB SCH ×2 (12:17→21:25)
[2018-03-28] MEDS: Pantoprazole 20 mg EC Tab PO SCH (12:19)
[2018-03-28] MEDS: Silver Sulfadiazine 1% Cream (25 gm) TP SCH ×2 (12:20→17:19)
[2018-03-28] MEDS: MethylPREDNISolone 40 mg Vial IV SCH (12:20)
[2018-03-28] MEDS: HYDROmorphone 1 mg/ml ISec IVP PRN (12:29)
--- NOTE | 2018-03-28 14:49 | CP.PCM.PN ---
<Migue Tapia - Last Filed: 03/28/18 14:28> Subjective - Date & Time of Evaluation Date of Evaluation: 03/28/18 Time of Evaluation: 14:28 - Subjective Subjective: Podiatry progress note for Dr. Bills 57 y/o F patient seen and evaluated 1 day S/P TMA left foot secondary to diabetic foot abscess, necrotizing fasciitis and gangrenous changes to the left foot. Patient was seen after HBO session. Patient is breathing well. Patient states that she doesn't feel any pain at the surgery site. Patient denies any other pedal complaints at this time. Patient states that she has no pain to her left foot. Patient denies any postoperative N/V/F/C/CP. Objective - Vital Signs/Intake and Output Vital Signs (last 24 hours): Temp Pulse Resp BP Pulse Ox 98.2 F 92 H 18 138/72 98 03/28/18 13:58 03/28/18 13:58 03/28/18 13:58 03/28/18 13:58 03/27/18 16:40 Intake and Output: 03/28/18 03/28/18 06:59 18:59 Intake Total 1090 20 Output Total 1200 Balance -110 20 - Medications Medications: Current Medications Acetaminophen (Tylenol 325mg Tab) 650 mg PO Q6H PRN PRN Reason: Pain, moderate (4-7) Last Admin: 03/21/18 18:08 Dose: 650 mg Albuterol/Ipratropium (Duoneb 3 Mg/0.5 Mg (3 Ml) Ud) 3 ml IH [id number] [facility] Last Admin: 03/28/18 11:21 Dose: Not Given Albuterol/Ipratropium (Duoneb 3 Mg/0.5 Mg (3 Ml) Ud) 3 ml IH [id number] PRN PRN Reason: Shortness of Breath Last Admin: 03/26/18 17:16 Dose: 3 ml Allopurinol (Zyloprim) 100 mg PO DAILY [facility] Last Admin: 03/28/18 12:30 Dose: 100 mg Aspirin (Ecotrin) 81 mg PO DAILY [facility] Last Admin: 03/28/18 12:10 Dose: 81 mg Atorvastatin Calcium (Lipitor) 20 mg PO DAILY [facility] Last Admin: 03/18/18 09:50 Dose: 20 mg Calcium Acetate (Phoslo) 1,334 mg PO WM [facility] Last Admin: 03/28/18 12:19 Dose: 1,334 mg Furosemide (Lasix) 40 mg PO DAILY [facility] Last Admin: 03/28/18 12:15 Dose: 40 mg Furosemide (Lasix) 40 mg IVP ONCE ONE Stop: 03/28/18 16:01 Hydralazine HCl (Apresoline) 25 mg PO BID [facility] Last Admin: 03/28/18 12:06 Dose: 25 mg Hydromorphone HCl (Dilaudid) 2 mg IVP Q4H PRN PRN Reason: Pain, severe (8-10) Last Admin: 03/28/18 12:29 Dose: 2 mg Meropenem/Sodium Chloride (Merrem Iv 500 Mg/Ns 50 Ml) 500 mg in 50 mls @ 100 mls/hr IVPB Q12 [facility]; Protocol Stop: 04/03/18 15:34 Last Admin: 03/28/18 12:17 Dose: 100 mls/hr Insulin Detemir (Levemir) 20 unit SC [facility] Last Admin: 03/27/18 21:51 Dose: 20 unit Insulin Human Lispro (Humalog Med) 0 units SC ACHS [facility] Last Admin: 03/28/18 12:12 Dose: 8 units Insulin Lispro Protam/Lispro Human (Humalog Mix 75/25) 18 units SC ACBD [facility] Last Admin: 03/28/18 08:41 Dose: Not Given Metoprolol Tartrate (Lopressor) 50 mg PO BID [facility] Last Admin: 03/28/18 12:16 Dose: 50 mg Montelukast Sodium (Singulair) 10 mg PO [facility] Last Admin: 03/27/18 21:52 Dose: 10 mg Home Med - Fluvoxamine [Luvox] 25 Mg 25 mg PO BID [facility] Last Admin: 03/28/18 12:12 Dose: Not Given Home Med - Umeclidinium [place] [Incruse Ellipta] 1 Puff 1 puff IH [facility] Last Admin: 03/28/18 02:15 Dose: Not Given Nortriptyline HCl (Pamelor) 50 mg PO [facility] Last Admin: 03/27/18 21:57 Dose: 50 mg Oxychlorosene Sodium (Clorpactin Wcs-90) 2 gm TOP Q12 [facility] Last Admin: 03/28/18 12:07 Dose: Not Given Oxychlorosene Sodium (Clorpactin Wcs-90) 2 gm TOP DAILY [facility] Last Admin: 03/28/18 12:07 Dose: Not Given Pantoprazole Sodium (Protonix Ec Tab) 20 mg PO ACB [facility] Last Admin: 03/28/18 12:19 Dose: 20 mg Potassium Chloride (Klor-Con 10) 20 meq PO BRK [facility] Last Admin: 03/28/18 12:14 Dose: 20 meq Potassium Chloride (K-Dur 20 Meq Er Tab) 20 meq PO BRK [facility] Last Admin: 03/28/18 12:13 Dose: 20 meq Prednisone (Prednisone Tab) 10 mg PO DAILY [facility] Quetiapine Fumarate (Seroquel Xr) 100 mg PO HS [facility]; Protocol Last Admin: 03/27/18 21:51 Dose: 100 mg Silver Sulfadiazine (Silvadene 1% 25 Gm) 1 gm TP BID [facility] Last Admin: 03/28/18 12:20 Dose: Not Given Tizanidine HCl (Zanaflex) 2 mg PO Q6 [facility] Last Admin: 03/28/18 12:22 Dose: 2 mg - Labs Labs: 03/28/18 06:15 03/28/18 06:15 PT 16.2 SECONDS (9.4-12.5) H 03/27/18 06:00 INR 1.40 03/27/18 06:00 APTT 35.8 Seconds (25.1-36.5) 03/21/18 00:23 - Constitutional Appears: Well, Non-toxic, No Acute Distress - Head Exam Head Exam: ATRAUMATIC, NORMOCEPHALIC - Extremities Exam Additional comments: Bilateral Lower Extremity Exam: VASC: DP/PT 2/4 b/l, Temp gradient warm to warm on the B/L from proximal to distal. NEURO: Gross and protective sensations are diminished B/L. DERM: TMA amputation site looks clean with no purulent drainage but some blood oozing was present. Tissues at the stump site looks viable. Right foot, stable ulceration noted to the tip of the 2nd digit MSK: No pain on palpating the left foot amputation site and the periulcerative area of the Right foot. Left ankle ROM is WNL. - Neurological Exam Neurological Exam: Alert, Awake, Oriented x3 - Psychiatric Exam Psychiatric exam: Normal Affect, Normal Mood Assessment and Plan - Assessment and Plan (Free Text) Assessment: 57 y/o F patient seen and evaluated 1 day S/P TMA left foot secondary to diabetic foot abscess, necrotizing fasciitis and gangrenous changes to the left foot. Plan: Patient seen and evaluated at bedside with Dr. Bills Discussed plan in detail with Dr. Bills Charts, labs and vitals reviewed: Afebrile, WBC 8.6, Hb 8.6 Patient general condition is good postoperative Patient had HBO session today. Dressing of the surgical site using surgicel, Will padded dressing, (Gauze, ABD and kerlix) and Kishor bandage. Because the patient has some bloody oozing from the amputation stump tomorrow surgery postponed to Sunday04/01/2018. Patient is planned to go to the OR Sunday04/01/2018 for graft application and wound VAC application Podiatry will carefully continue to follow up the patient while in house. <Guillermina Bills - Last Filed: 03/29/18 14:42> Objective - Vital Signs/Intake and Output Vital Signs (last 24 hours): Temp Pulse Resp BP Pulse Ox 97.7 F 97 H 20 121/68 94 L 03/29/18 06:00 03/29/18 12:24 03/29/18 06:00 03/29/18 12:24 03/29/18 06:00 Intake and Output: 03/29/18 03/29/18 06:59 18:59 Intake Total 480 Output Total 1150 Balance -670 - Medications Medications: Current Medications Albuterol/Ipratropium (Duoneb 3 Mg/0.5 Mg (3 Ml) Ud) 3 ml IH [id number] [facility] Last Admin: 03/29/18 11:22 Dose: Not Given Albuterol/Ipratropium (Duoneb 3 Mg/0.5 Mg (3 Ml) Ud) 3 ml IH [id number] PRN PRN Reason: Shortness of Breath Last Admin: 03/26/18 17:16 Dose: 3 ml Allopurinol (Zyloprim) 100 mg PO DAILY [facility] Last Admin: 03/29/18 12:28 Dose: 100 mg Aspirin (Ecotrin) 81 mg PO DAILY [facility] Last Admin: 03/29/18 12:21 Dose: 81 mg Atorvastatin Calcium (Lipitor) 20 mg PO DAILY [facility] Last Admin: 03/18/18 09:50 Dose: 20 mg Calcium Acetate (Phoslo) 1,334 mg PO WM [facility] Last Admin: 03/29/18 12:26 Dose: 1,334 mg Furosemide (Lasix) 40 mg PO DAILY [facility] Last Admin: 03/29/18 12:24 Dose: 40 mg Hydralazine HCl (Apresoline) 25 mg PO BID [facility] Last Admin: 03/29/18 12:20 Dose: 25 mg Hydromorphone HCl (Dilaudid) 2 mg IVP Q4H PRN PRN Reason: Pain, severe (8-10) Last Admin: 03/29/18 00:38 Dose: 2 mg Meropenem/Sodium Chloride (Merrem Iv 500 Mg/Ns 50 Ml) 500 mg in 50 mls @ 100 mls/hr IVPB Q12 [facility]; Protocol Stop: 04/03/18 15:34 Last Admin: 03/29/18 12:25 Dose: 100 mls/hr Insulin Detemir (Levemir) 20 unit SC [facility] Last Admin: 03/28/18 21:25 Dose: 20 unit Insulin Human Lispro (Humalog Med) 0 units SC ACHS [facility] Last Admin: 03/29/18 12:21 Dose: 1 units Insulin Lispro Protam/Lispro Human (Humalog Mix 75/25) 18 units SC ACBD [facility] Last Admin: 03/29/18 12:22 Dose: 18 units Metoprolol Tartrate (Lopressor) 50 mg PO BID [facility] Last Admin: 03/29/18 12:24 Dose: 50 mg Montelukast Sodium (Singulair) 10 mg PO [facility] Last Admin: 03/28/18 21:25 Dose: 10 mg Home Med - Fluvoxamine [Luvox] 25 Mg 25 mg PO BID [facility] Last Admin: 03/29/18 12:21 Dose: Not Given Home Med - Umeclidinium [place] [Incruse Ellipta] 1 Puff 1 puff IH [facility] Last Admin: 03/28/18 22:00 Dose: Not Given Nortriptyline HCl (Pamelor) 50 mg PO [facility] Last Admin: 03/28/18 21:25 Dose: 50 mg Oxychlorosene Sodium (Clorpactin Wcs-90) 2 gm TOP Q12 [facility] Last Admin: 03/29/18 12:20 Dose: Not Given Oxychlorosene Sodium (Clorpactin Wcs-90) 2 gm TOP DAILY [facility] Last Admin: 03/29/18 12:21 Dose: Not Given Pantoprazole Sodium (Protonix Ec Tab) 20 mg PO ACB [facility] Last Admin: 03/29/18 12:27 Dose: 20 mg Potassium Chloride (Klor-Con 10) 20 meq PO BRK [facility] Last Admin: 03/29/18 12:23 Dose: 20 meq Potassium Chloride (K-Dur 20 Meq Er Tab) 20 meq PO BRK [facility] Last Admin: 03/29/18 12:23 Dose: 20 meq Prednisone (Prednisone Tab) 10 mg PO DAILY [facility] Last Admin: 03/29/18 12:27 Dose: 10 mg Quetiapine Fumarate (Seroquel Xr) 100 mg PO HS [facility]; Protocol Last Admin: 03/28/18 21:24 Dose: 100 mg Silver Sulfadiazine (Silvadene 1% 25 Gm) 1 gm TP BID [facility] Last Admin: 03/29/18 12:27 Dose: Not Given Tizanidine HCl (Zanaflex) 2 mg PO Q6 [facility] Last Admin: 03/29/18 12:27 Dose: 2 mg - Labs Labs: 03/29/18 07:14 03/29/18 07:14 PT 15.0 SECONDS (9.4-12.5) H 03/29/18 07:14 INR 1.30 03/29/18 07:14 APTT 35.8 Seconds (25.1-36.5) 03/21/18 00:23 Attending/Attestation - Attestation I have personally seen and examined this patient.: Yes I have fully participated in the care of the patient.: Yes I have reviewed all pertinent clinical information, including history, physical exam and plan: Yes Notes (Text): 03/29/18 14:40 pt was seen occupational ther to the HBO room where her surgical dressing from yesterday was broken down; there was entire bloody drainage and the wound was still oozing; it was cauterized with silver nitrate sticks and surgicell reaplied; she was put into the HBO chamber for treatment; case was discussed with Dr Zhu who had given pt 1 unit RBC post op; call will be made to pt's hemotologist Dr Dang
--- NOTE | 2018-03-28 15:22 | PN ---
DATE: 03/28/2018 REASON FOR CONSULTATION AND FOLLOWUP: Cardiac evaluation, history of coronary artery disease, postop followup for left foot abscess for possible myocutaneous skin graft tomorrow. SUBJECTIVE: The patient denies any chest pain, shortness of breath or any palpitation. Discussed with Podiatry. Patient had a coagulopathy, initially I thought that it is probably secondary to shock liver. Three doses of vitamin K were given, still the INR is 1.4. Patient underwent, on admission, septic shock. Treated with vasopressin as an outpatient in the floor. Patient underwent I and D yesterday, also. Now the patient needs myocutaneous skin graft. Patient is cleared to go from Cardiology point of view. We also request Dr. Yadav for Hematology evaluation for her coagulopathy. In the interim, we will give one dose of vitamin K. Continue gentle diuretics. Continue aspirin, Plavix is on hold for more than 5 days. End-stage renal disease, on dialysis. Continue metoprolol and dialysis is on hold. Avoid nephrotoxic medications for now. Patient is not on MARYLU or ARB because the patient had renal insufficiency and was dialyzed. Now dialysis is on hold. Once renal function stabilizes and does not need , so we will restart MARYLU or ARB. History of COPD, history of Staph bacteremia status post left foot abscess, had some septic shock, acute kidney injury and chronic renal insufficiency. We will follow with you. We will give one dose of vitamin K. Repeat PT/INR in the morning. Discussed with publications manager. Again, patient is cleared to go for myocutaneous skin graft with moderate risk from the Cardiology point of view. Thank you Dr. Zhu for providing us the opportunity in taking care of the patient, Ashley Mallory. Stephanie Anton MD
--- NOTE | 2018-03-28 16:06 | CP.PCM.PCO ---
Physician Communication Note - Physician Communication Note Physician Communication Note: path from TMA left foot pending from 03/27,ID may recommend 7 days antbx .
--- NOTE | 2018-03-28 19:54 | PN ---
DATE: 03/28/2018 SUBJECTIVE: The patient is a 57-year-old, seen and examined, lying in bed, seems to be comfortable. She states that blood sugar is fluctuating. Her breathing is better, has scanty cough. Also discussed with Dr. Bills. Plan is for skin graft to her TMA surgical site. PHYSICAL EXAMINATION: GENERAL: She is awake, alert, oriented, communicative. VITAL SIGNS: She is afebrile, pulse 83, respirations 18, blood pressure 122/63. LUNGS: Bilateral fair airflow. No rhonchi or crackles. HEART: S1,S2 audible. ABDOMEN: Soft, obese, nontender. No rebound, no guarding. NEUROLOGIC: The patient is awake, alert, oriented. The left foot is in dressing. LABORATORY DATA: WBC 9.1, hemoglobin 8.5, hematocrit 27.3, and platelets 442. PT 16.2, INR 1.4. Chemistry: Sodium 136, potassium 4.9, chloride 101, CO2 of 26, BUN 92, creatinine 2.5, and blood sugar of 391. ASSESSMENT: 1. Status post Staphylococcus aureus bacteremia secondary to left foot abscess, status post incision and drainage followed by left transmetatarsal amputation. 2. History of hypertension. 3. Insulin-dependent diabetes. 4. Chronic obstructive pulmonary disease. 5. Hyperuricemia. 6. Diabetic neuropathy. PLAN: We will discontinue her IV Solu-Medrol. Her wheezing and congestion is much better. To improve her sugar control, we will get for consult. The patient is scheduled for OR tomorrow for skin graft to surgical site. Colt Zhu MD
--- NOTE | 2018-03-28 21:03 | PN ---
DATE: 03/28/2018 SUBJECTIVE: The patient is in bed. PHYSICAL EXAMINATION VITAL SIGNS: Temperature is 98, blood pressure is 120/80, respiratory 20, heart rate of 81. HEENT: Examination of HEENT is unremarkable. NECK: Supple. CARDIOPULMONARY: Normal S1, S2. LUNGS: Have decreased breath sounds. ABDOMEN: Soft. LABORATORY DATA: Laboratory examination reveals a white count of 9.1, hemoglobin of 8, platelets of 444. Chemistries reveals a BUN of 92, creatinine of 2.5. Microbiology reveals staph aureus. Sensitive staph. The blood cultures were positive. Repeat cultures are negative. MEDICATIONS: Currently, the patient is on meropenem which requires renewal, which I will do so. ASSESSMENT AND PLAN: A 57-year-old female with chronic obstructive lung disease, obesity, fibromyalgia, recurrent urinary tract infections, admitted with septic shock, sensitive Staphylococcus aureus bacteremia secondary to sensitive Staphylococcus aureus foot abscess, status post transmetatarsal amputation, postprocedure day #1 on the left foot. Currently on daptomycin. The patient had bacteremia and had an echo which reveals no evidence of vegetation. The repeat blood cultures from the are negative. Today is day #13 of antibiotics. She would complete at least 14 to 21 days of antibiotics. We will check on the pathology. We will make further recommendations. Terrance Kent MD
[2018-03-28] MEDS: QUEtiapine 50 mg XR Tab PO SCH (21:24)
[2018-03-28] MEDS: Insulin Detemir 100 units/ml Vial (Levemir) SC SCH (21:25)
--- NOTE | 2018-03-29 00:04 | PN ---
DATE: 03/28/2018 SUBJECTIVE: The patient is seen sitting in bed. She is awake. She is alert. She is comfortable. She denies any chest pain, she continues to have a cough. She complains of some phlegm. She denies any shortness of breath. PHYSICAL EXAMINATION: GENERAL: Middle-aged lady lying in bed. VITAL SIGNS: Blood pressure 120/82, heart rate 81, respiratory rate 20, and temperature 98.9. HEENT: Normocephalic and atraumatic. Positive pallor. NECK: Supple. No JVD. LUNGS: Bilateral equal air entry. Bilateral rhonchi. No rales. CARDIAC: S1 and S2. Regular rate and rhythm. No murmur. No rub. ABDOMEN: Obese, distended, soft, and nontender. Bowel sounds present. EXTREMITIES: Dressing of the left foot. INTAKE AND OUTPUT: 1090/1200. LABORATORY DATA: WBC 9, hemoglobin 8.5, hematocrit 27, and platelets 442. Sodium 136, potassium 4.9, chloride 101, CO2 of 26, BUN 92, creatinine 2.5, and glucose 353. Calcium 8.1 and albumin 2.7. CURRENT MEDICATIONS: Apresoline 25 b.i.d., Clorpactin, Dilaudid, DuoNeb, aspirin, potassium 20 mEq, Lasix 40 p.o. daily, insulin, Lipitor, Lopressor 50 b.i.d., meropenem 500 , Pamelor, PhosLo, and prednisone. ASSESSMENT: 1. Acute kidney injury, superimposed on chronic kidney disease stage 3, resolving acute kidney injury. 2. Severe sepsis, Staphylococcus abscess of the left foot. 3. Status post Staphylococcus bacteremia, septic shock. 4. Status post left transmetatarsal amputation, postoperative day #1. 5. Severe anemia, the patient received 2 units of packed red blood cells. 6. Sma-msnelrs-ddagoqvng diabetes mellitus. 7. Congestive heart failure/cardiomyopathy. 8. Chronic obstructive pulmonary disease/sleep apnea. PLAN: 1. Agreed with blood transfusion. 2. Continue Lasix. 3. Continue potassium supplementation. 4. Monitor fingersticks and continue insulin coverage. 5. Continue antibiotics as per Infectious Disease recommendation. 6. Continue wound care. Elva Frank MD [facility] # [id number]
[2018-03-29] MEDS: Albuterol-Ipratrop 3 mg / 0.5 (3 ml) UD IH SCH ×7 (00:26→23:49)
[2018-03-29] MEDS: HYDROmorphone 1 mg/ml ISec IVP PRN ×2 (00:38→17:22)
--- NOTE | 2018-03-29 06:59 | CP.PCM.PN ---
Subjective - Date & Time of Evaluation Date of Evaluation: 03/29/18 Time of Evaluation: 06:45 - Subjective Subjective: No distress, easily awaken,lying in bed, denies shortness of breath Reason for consultation and follow up: Cardiac evaluation of coronary artery disease, post op follow up of I & D of left foot abscess, status post transmetatarsal amputation of left Seen and examined by me and Dr. Anton Objective - Vital Signs/Intake and Output Vital Signs (last 24 hours): Temp Pulse Resp BP Pulse Ox 97.7 F 95 H 20 121/68 94 L 03/29/18 06:00 03/29/18 06:00 03/29/18 06:00 03/29/18 06:00 03/29/18 06:00 Intake and Output: 03/28/18 03/29/18 18:59 06:59 Intake Total 770 480 Output Total 1000 1150 Balance -230 -670 - Medications Medications: Current Medications Acetaminophen (Tylenol 325mg Tab) 650 mg PO Q6H PRN PRN Reason: Pain, moderate (4-7) Last Admin: 03/21/18 18:08 Dose: 650 mg Albuterol/Ipratropium (Duoneb 3 Mg/0.5 Mg (3 Ml) Ud) 3 ml IH [id number] [facility] Last Admin: 03/29/18 03:49 Dose: 3 ml Albuterol/Ipratropium (Duoneb 3 Mg/0.5 Mg (3 Ml) Ud) 3 ml IH [id number] PRN PRN Reason: Shortness of Breath Last Admin: 03/26/18 17:16 Dose: 3 ml Allopurinol (Zyloprim) 100 mg PO DAILY [facility] Last Admin: 03/28/18 12:30 Dose: 100 mg Aspirin (Ecotrin) 81 mg PO DAILY [facility] Last Admin: 03/28/18 12:10 Dose: 81 mg Atorvastatin Calcium (Lipitor) 20 mg PO DAILY [facility] Last Admin: 03/18/18 09:50 Dose: 20 mg Calcium Acetate (Phoslo) 1,334 mg PO WM [facility] Last Admin: 03/28/18 17:19 Dose: 1,334 mg Furosemide (Lasix) 40 mg PO DAILY [facility] Last Admin: 03/28/18 12:15 Dose: 40 mg Hydralazine HCl (Apresoline) 25 mg PO BID [facility] Last Admin: 03/28/18 17:14 Dose: 25 mg Hydromorphone HCl (Dilaudid) 2 mg IVP Q4H PRN PRN Reason: Pain, severe (8-10) Last Admin: 03/29/18 00:38 Dose: 2 mg Meropenem/Sodium Chloride (Merrem Iv 500 Mg/Ns 50 Ml) 500 mg in 50 mls @ 100 mls/hr IVPB Q12 [facility]; Protocol Stop: 04/03/18 15:34 Last Admin: 03/28/18 21:25 Dose: 100 mls/hr Insulin Detemir (Levemir) 20 unit SC HS [facility] Last Admin: 03/28/18 21:25 Dose: 20 unit Insulin Human Lispro (Humalog Med) 0 units SC [facility] Last Admin: 03/28/18 21:26 Dose: Not Given Insulin Lispro Protam/Lispro Human (Humalog Mix 75/25) 18 units SC ACBD [facility] Last Admin: 03/28/18 17:16 Dose: 18 units Metoprolol Tartrate (Lopressor) 50 mg PO BID [facility] Last Admin: 03/28/18 17:18 Dose: 50 mg Montelukast Sodium (Singulair) 10 mg PO [facility] Last Admin: 03/28/18 21:25 Dose: 10 mg Home Med - Fluvoxamine [Luvox] 25 Mg 25 mg PO BID [facility] Last Admin: 03/28/18 12:12 Dose: Not Given Home Med - Umeclidinium [place] [Incruse Ellipta] 1 Puff 1 puff IH [facility] Last Admin: 03/28/18 22:00 Dose: Not Given Nortriptyline HCl (Pamelor) 50 mg PO [facility] Last Admin: 03/28/18 21:25 Dose: 50 mg Oxychlorosene Sodium (Clorpactin Wcs-90) 2 gm TOP Q12 [facility] Last Admin: 03/28/18 21:37 Dose: Not Given Oxychlorosene Sodium (Clorpactin Wcs-90) 2 gm TOP DAILY [facility] Last Admin: 03/28/18 12:07 Dose: Not Given Pantoprazole Sodium (Protonix Ec Tab) 20 mg PO ACB [facility] Last Admin: 03/28/18 12:19 Dose: 20 mg Potassium Chloride (Klor-Con 10) 20 meq PO BRK [facility] Last Admin: 03/28/18 12:14 Dose: 20 meq Potassium Chloride (K-Dur 20 Meq Er Tab) 20 meq PO BRK [facility] Last Admin: 03/28/18 12:13 Dose: 20 meq Prednisone (Prednisone Tab) 10 mg PO DAILY [facility] Quetiapine Fumarate (Seroquel Xr) 100 mg PO HS [facility]; Protocol Last Admin: 03/28/18 21:24 Dose: 100 mg Silver Sulfadiazine (Silvadene 1% 25 Gm) 1 gm TP BID [facility] Last Admin: 03/28/18 17:19 Dose: Not Given Tizanidine HCl (Zanaflex) 2 mg PO Q6 [facility] Last Admin: 03/29/18 05:26 Dose: 2 mg - Labs Labs: 03/28/18 06:15 03/28/18 06:15 PT 16.2 SECONDS (9.4-12.5) H 03/27/18 06:00 INR 1.40 03/27/18 06:00 APTT 35.8 Seconds (25.1-36.5) 03/21/18 00:23 - Constitutional Appears: Non-toxic, No Acute Distress - Head Exam Head Exam: NORMAL INSPECTION, NORMOCEPHALIC - Eye Exam Eye Exam: Normal appearance Pupil Exam: NORMAL ACCOMODATION - ENT Exam ENT Exam: Mucous Membranes Moist, Normal Exam - Respiratory Exam Respiratory Exam: Decreased Breath Sounds, NORMAL BREATHING PATTERN - Cardiovascular Exam Cardiovascular Exam: +S1, +S2 Additional comments: right IJ trialysis catheter - GI/Abdominal Exam GI & Abdominal Exam: Soft, Normal Bowel Sounds - Extremities Exam Additional comments: left foot dressing - Neurological Exam Neurological Exam: Alert, Awake, Oriented x3 - Psychiatric Exam Psychiatric exam: Normal Affect, Normal Mood - Skin Skin Exam: Dry, Normal Color, Warm Assessment and Plan - Assessment and Plan (Free Text) Assessment: A 57 year old female who came in to the ER due to left foot swelling. History of coronary artery disease post stents on 02/2013. COPD, obesity, fibromyalgia, HTN, CHF, DM, Diabetic neuropathy, Charcot foot, kidney disease, endometriosis, cellulitis of lower extremities. ESRD on hemodialysis. Had I & D of left foot. Wound positive for Staphyloccoccus aureaus. On IV antibiotics, Post blood transfusion with hemodialysis for low H/H.elevated INR from septic shock, she was not on coumadin before. Plavix discontinued.On Hyperbaric treatment for left foot wound. Discontinued Plavix and Aspirin.Being followed up by Podiatry. Vitamin K given for elevated INR. Low H/H post op, transfused 1 unit of PRBC. Status post left transmetatarsal amputation POD#2. Repeat H/H 8.5/27.3, transfused another unit of PRBC, for possible skin grafting today of the left foot. Cleared from cardiac standpoint for surgery. Plan: Status post 1 unit PRBC transfusion yesterday Repeat H/H pending For possible skin grafting of left foot Status post left transmetatarsal amputation POD#2 Denies chest pain or shortness of breath,No distress, Blood pressure controlled Cardiac status stable Heart rate controlled Cleared from cardiac standpoint for surgery Lipitor 20 mg daily,Lopressor 50 mg BID, Hydralazine 25 mg BID Potassium Chloride 20 meq daily Continue antibiotics as per ID Continue current treatment Continue current medications Chart reviewed Will follow up Plan and treatment discussed with Dr. Anton
[2018-03-29 07:29] LABS: MEAN CELL VOLUME 90.9 fl (80.0-105.0); MEAN CORPUSCULAR HGB CONC 31.9 g/dl (31.0-37.0); MEAN PLATELET VOLUME 9.7 fl (7.0-11.0); RBC 2.76 10^6/uL (3.5-6.1); RED CELL DISTRIBUTION WIDTH 15.6 % (11.5-14.5); WHITE BLOOD COUNT 9.7 10^3/uL (4.5-11.0)
[2018-03-29 07:40] LABS: INR 1.3
[2018-03-29 07:50] LABS: ALB/GLOB RATIO 0.8 (1.1-1.8); ALBUMIN 2.6 g/dL (3.0-4.8); CALCIUM 8.4 mg/dL (8.4-10.5)
[2018-03-29] MEDS: Insulin Lispro (humaLOG) MEDIUM Coverage SC SCH ×4 (09:51→21:46)
--- NOTE | 2018-03-29 12:15 | CP.PCM.PN ---
<Migue Tapia - Last Filed: 03/29/18 12:16> Subjective - Date & Time of Evaluation Date of Evaluation: 03/29/18 Time of Evaluation: 11:59 - Subjective Subjective: Podiatry progress note for Dr. Bills 57 y/o F patient seen and evaluated 2 days S/P TMA left foot secondary to diabetic foot abscess, necrotizing fasciitis and gangrenous changes to the left foot. Patient was seen after HBO session. Patient is breathing well. Patient states that she doesn't feel any pain at the surgery site. Patient denies any other pedal complaints at this time. Patient states that she has no pain to her left foot. Patient denies any postoperative N/V/F/C/CP. Objective - Vital Signs/Intake and Output Vital Signs (last 24 hours): Temp Pulse Resp BP Pulse Ox 97.7 F 95 H 20 121/68 94 L 03/29/18 06:00 03/29/18 06:00 03/29/18 06:00 03/29/18 06:00 03/29/18 06:00 Intake and Output: 03/29/18 03/29/18 06:59 18:59 Intake Total 480 Output Total 1150 Balance -670 - Medications Medications: Current Medications Acetaminophen (Tylenol 325mg Tab) 650 mg PO Q6H PRN PRN Reason: Pain, moderate (4-7) Last Admin: 03/21/18 18:08 Dose: 650 mg Albuterol/Ipratropium (Duoneb 3 Mg/0.5 Mg (3 Ml) Ud) 3 ml IH [id number] [facility] Last Admin: 03/29/18 11:22 Dose: Not Given Albuterol/Ipratropium (Duoneb 3 Mg/0.5 Mg (3 Ml) Ud) 3 ml IH [id number] PRN PRN Reason: Shortness of Breath Last Admin: 03/26/18 17:16 Dose: 3 ml Allopurinol (Zyloprim) 100 mg PO DAILY [facility] Last Admin: 03/28/18 12:30 Dose: 100 mg Aspirin (Ecotrin) 81 mg PO DAILY [facility] Last Admin: 03/28/18 12:10 Dose: 81 mg Atorvastatin Calcium (Lipitor) 20 mg PO DAILY [facility] Last Admin: 03/18/18 09:50 Dose: 20 mg Calcium Acetate (Phoslo) 1,334 mg PO WM [facility] Last Admin: 03/28/18 17:19 Dose: 1,334 mg Furosemide (Lasix) 40 mg PO DAILY [facility] Last Admin: 03/28/18 12:15 Dose: 40 mg Hydralazine HCl (Apresoline) 25 mg PO BID [facility] Last Admin: 03/28/18 17:14 Dose: 25 mg Hydromorphone HCl (Dilaudid) 2 mg IVP Q4H PRN PRN Reason: Pain, severe (8-10) Last Admin: 03/29/18 00:38 Dose: 2 mg Meropenem/Sodium Chloride (Merrem Iv 500 Mg/Ns 50 Ml) 500 mg in 50 mls @ 100 mls/hr IVPB Q12 [facility]; Protocol Stop: 04/03/18 15:34 Last Admin: 03/28/18 21:25 Dose: 100 mls/hr Insulin Detemir (Levemir) 20 unit SC [facility] Last Admin: 03/28/18 21:25 Dose: 20 unit Insulin Human Lispro (Humalog Med) 0 units SC [facility] Last Admin: 03/29/18 09:51 Dose: Not Given Insulin Lispro Protam/Lispro Human (Humalog Mix 75/25) 18 units SC ACBD [facility] Last Admin: 03/28/18 17:16 Dose: 18 units Metoprolol Tartrate (Lopressor) 50 mg PO BID [facility] Last Admin: 03/28/18 17:18 Dose: 50 mg Montelukast Sodium (Singulair) 10 mg PO [facility] Last Admin: 03/28/18 21:25 Dose: 10 mg Home Med - Fluvoxamine [Luvox] 25 Mg 25 mg PO BID [facility] Last Admin: 03/28/18 12:12 Dose: Not Given Home Med - Umeclidinium [place] [Incruse Ellipta] 1 Puff 1 puff IH [facility] Last Admin: 03/28/18 22:00 Dose: Not Given Nortriptyline HCl (Pamelor) 50 mg PO [facility] Last Admin: 03/28/18 21:25 Dose: 50 mg Oxychlorosene Sodium (Clorpactin Wcs-90) 2 gm TOP Q12 [facility] Last Admin: 03/28/18 21:37 Dose: Not Given Oxychlorosene Sodium (Clorpactin Wcs-90) 2 gm TOP DAILY [facility] Last Admin: 03/28/18 12:07 Dose: Not Given Pantoprazole Sodium (Protonix Ec Tab) 20 mg PO ACB [facility] Last Admin: 03/28/18 12:19 Dose: 20 mg Potassium Chloride (Klor-Con 10) 20 meq PO BRK [facility] Last Admin: 03/28/18 12:14 Dose: 20 meq Potassium Chloride (K-Dur 20 Meq Er Tab) 20 meq PO BRK [facility] Last Admin: 03/28/18 12:13 Dose: 20 meq Prednisone (Prednisone Tab) 10 mg PO DAILY [facility] Quetiapine Fumarate (Seroquel Xr) 100 mg PO HS [facility]; Protocol Last Admin: 03/28/18 21:24 Dose: 100 mg Silver Sulfadiazine (Silvadene 1% 25 Gm) 1 gm TP BID [facility] Last Admin: 03/28/18 17:19 Dose: Not Given Tizanidine HCl (Zanaflex) 2 mg PO Q6 [facility] Last Admin: 03/29/18 05:26 Dose: 2 mg - Labs Labs: 03/29/18 07:14 03/29/18 07:14 PT 15.0 SECONDS (9.4-12.5) H 03/29/18 07:14 INR 1.30 03/29/18 07:14 APTT 35.8 Seconds (25.1-36.5) 03/21/18 00:23 - Constitutional Appears: Well, Non-toxic, No Acute Distress - Head Exam Head Exam: ATRAUMATIC, NORMOCEPHALIC - Extremities Exam Additional comments: Bilateral Lower Extremity Exam: VASC: DP/PT 2/4 b/l, Temp gradient warm to warm on the B/L from proximal to distal. Erythema noted proximal to the TMA site up to the ankle. NEURO: Gross and protective sensations are diminished B/L. DERM: TMA amputation site looks clean with no purulent drainage and no bleeding, Surgicell was in place. Tissues at the stump site looks viable. Erythema noted proximal to the TMA site up to the ankle with patch of necrotic black skin at the level of the anterior ankle. Right foot, stable ulceration noted to the tip of the 2nd digit MSK: No pain on palpating the left foot amputation site and the periulcerative area of the Right foot. Left ankle ROM is WNL. Muscle power intact 5/5 to all groups. - Neurological Exam Neurological Exam: Alert, Awake, Oriented x3 - Psychiatric Exam Psychiatric exam: Normal Affect, Normal Mood Assessment and Plan - Assessment and Plan (Free Text) Assessment: 57 y/o F patient seen and evaluated 2 days S/P TMA left foot secondary to diabetic foot abscess, necrotizing fasciitis and gangrenous changes to the left foot. Plan: Patient seen and evaluated at bedside with Dr. Bills Discussed plan in detail with Dr. Bills Charts, labs and vitals reviewed: Afebrile, WBC 9.7, Hb 8.0 Patient general condition is good postoperative Patient had HBO session today. Dressing of the surgical site using well padded dressing, (Gauze, ABD and kerlix) and Kishor bandage, Surgicell left in place. Patient is planned to go to the OR Sunday04/01/2018 for graft application and wound VAC application Podiatry will carefully continue to follow up the patient while in house. <Rodríguez Little - Last Filed: 03/30/18 08:25> Objective - Vital Signs/Intake and Output Vital Signs (last 24 hours): Temp Pulse Resp BP Pulse Ox 97.9 F 100 H 19 121/57 L 98 03/30/18 06:00 03/30/18 06:00 03/30/18 06:00 03/30/18 06:00 03/30/18 06:00 Intake and Output: 03/30/18 03/30/18 06:59 18:59 Intake Total 100 Output Total 2225 Balance -2125 - Medications Medications: Current Medications Albuterol/Ipratropium (Duoneb 3 Mg/0.5 Mg (3 Ml) Ud) 3 ml IH [id number] [facility] Last Admin: 03/30/18 03:48 Dose: 3 ml Albuterol/Ipratropium (Duoneb 3 Mg/0.5 Mg (3 Ml) Ud) 3 ml IH [id number] PRN PRN Reason: Shortness of Breath Last Admin: 03/26/18 17:16 Dose: 3 ml Allopurinol (Zyloprim) 100 mg PO DAILY [facility] Last Admin: 03/29/18 12:28 Dose: 100 mg Aspirin (Ecotrin) 81 mg PO DAILY [facility] Last Admin: 03/29/18 12:21 Dose: 81 mg Atorvastatin Calcium (Lipitor) 20 mg PO DAILY [facility] Last Admin: 03/18/18 09:50 Dose: 20 mg Calcium Acetate (Phoslo) 1,334 mg PO WM [facility] Last Admin: 03/29/18 17:21 Dose: 1,334 mg Furosemide (Lasix) 40 mg PO DAILY [facility] Last Admin: 03/29/18 12:24 Dose: 40 mg Hydralazine HCl (Apresoline) 25 mg PO BID [facility] Last Admin: 03/29/18 17:17 Dose: 25 mg Hydromorphone HCl (Dilaudid) 2 mg IVP Q4H PRN PRN Reason: Pain, severe (8-10) Last Admin: 03/29/18 17:22 Dose: 2 mg Meropenem/Sodium Chloride (Merrem Iv 500 Mg/Ns 50 Ml) 500 mg in 50 mls @ 100 mls/hr IVPB Q12 [facility]; Protocol Stop: 04/03/18 15:34 Last Admin: 03/29/18 21:43 Dose: 100 mls/hr Insulin Detemir (Levemir) 20 unit SC HS [facility] Last Admin: 03/29/18 21:42 Dose: 20 unit Insulin Human Lispro (Humalog Med) 0 units SC [facility] Last Admin: 03/29/18 21:46 Dose: Not Given Insulin Lispro Protam/Lispro Human (Humalog Mix 75/25) 18 units SC ACBD [facility] Last Admin: 03/29/18 17:19 Dose: 18 units Metoprolol Tartrate (Lopressor) 50 mg PO BID [facility] Last Admin: 03/29/18 17:20 Dose: 50 mg Home Med - Fluvoxamine [Luvox] 25 Mg 25 mg PO BID [facility] Last Admin: 03/29/18 17:18 Dose: Not Given Nortriptyline HCl (Pamelor) 50 mg PO HS [facility] Last Admin: 03/29/18 21:42 Dose: 50 mg Oxychlorosene Sodium (Clorpactin Wcs-90) 2 gm TOP Q12 [facility] Last Admin: 03/29/18 12:20 Dose: Not Given Oxychlorosene Sodium (Clorpactin Wcs-90) 2 gm TOP DAILY [facility] Last Admin: 03/29/18 12:21 Dose: Not Given Potassium Chloride (Klor-Con 10) 20 meq PO BRK [facility] Last Admin: 03/29/18 12:23 Dose: 20 meq Potassium Chloride (K-Dur 20 Meq Er Tab) 20 meq PO BRK [facility] Last Admin: 03/29/18 12:23 Dose: 20 meq Prednisone (Prednisone Tab) 10 mg PO DAILY [facility] Last Admin: 03/29/18 12:27 Dose: 10 mg - Labs Labs: 03/29/18 07:14 03/29/18 07:14 PT 15.0 SECONDS (9.4-12.5) H 03/29/18 07:14 INR 1.30 03/29/18 07:14 APTT 35.8 Seconds (25.1-36.5) 03/21/18 00:23 Attending/Attestation - Attestation I have personally seen and examined this patient.: Yes I have fully participated in the care of the patient.: Yes I have reviewed all pertinent clinical information, including history, physical exam and plan: Yes
[2018-03-29] MEDS: Oxychlorosene Topical 2 gm Packet TOP SCH ×2 (12:20→12:21)
[2018-03-29] MEDS: FLUVOXAMINE 25 MG PO SCH ×2 (12:21→17:18)
[2018-03-29] MEDS: Insulin Lispro (humaLOG) MIX 75/25(10 ml) SC SCH ×2 (12:22→17:19)
[2018-03-29] MEDS: Potassium Chloride 20 mEq ER Tab PO SCH (12:23)
[2018-03-29] MEDS: Potassium Chloride 10 mEq ER Tab PO SCH (12:23)
[2018-03-29] MEDS: MEROPENEM 500 MG in NS 500 MG/50 ML BAG IVPB SCH ×2 (12:25→21:43)
[2018-03-29] MEDS: Silver Sulfadiazine 1% Cream (25 gm) TP SCH ×2 (12:27→17:21)
[2018-03-29] MEDS: Pantoprazole 20 mg EC Tab PO SCH (12:27)
--- NOTE | 2018-03-29 13:26 | PCM.URO ---
Urology Progress Note - Subjective Weak Stream: Yes (tril of void tody) - Objective Lab Results Last 24 Hours: Laboratory Results - last 24 hr 03/16/18 03/25/18 03/28/18 10:50 15:50 16:34 WBC RBC Hgb Hct MCV MCH MCHC RDW Plt Count MPV PT INR Sodium Potassium Chloride Carbon Dioxide Anion Gap BUN Creatinine Est GFR ( Amer) Est GFR (Non-Af Amer) POC Glucose (mg/dL) 326 H Random Glucose Calcium Total Bilirubin AST ALT Alkaline Phosphatase Total Protein Albumin Globulin Albumin/Globulin Ratio Blood Type A POSITIVE Antibody Screen Negative Crossmatch See Detail See Detail BBK History Checked Patient has bt 03/28/18 03/29/18 03/29/18 21:12 07:14 07:14 WBC 9.7 RBC 2.76 L Hgb 8.0 L Hct 25.1 L MCV 90.9 MCH 29.0 MCHC 31.9 RDW 15.6 H Plt Count 372 MPV 9.7 PT INR Sodium Potassium Chloride Carbon Dioxide Anion Gap BUN Creatinine Est GFR ( Amer) Est GFR (Non-Af Amer) POC Glucose (mg/dL) 279 H Random Glucose Calcium Total Bilirubin AST ALT Alkaline Phosphatase Total Protein Albumin Globulin Albumin/Globulin Ratio Blood Type A POSITIVE Antibody Screen Negative Crossmatch See Detail BBK History Checked Patient has bt 03/29/18 03/29/18 03/29/18 07:14 07:14 07:49 WBC RBC Hgb Hct MCV MCH MCHC RDW Plt Count MPV PT 15.0 H INR 1.30 Sodium 133 Potassium 4.8 Chloride 100 Carbon Dioxide 26 Anion Gap 12 BUN 98 H Creatinine 2.4 H Est GFR ( Amer) 25 Est GFR (Non-Af Amer) 21 POC Glucose (mg/dL) 199 H Random Glucose 202 H Calcium 8.4 Total Bilirubin 0.4 AST 29 ALT 34 Alkaline Phosphatase 83 Total Protein 6.0 Albumin 2.6 L Globulin 3.4 Albumin/Globulin Ratio 0.8 L Blood Type Antibody Screen Crossmatch BBK History Checked 03/29/18 03/29/18 03/29/18 09:34 11:32 12:14 WBC RBC Hgb Hct MCV MCH MCHC RDW Plt Count MPV PT INR Sodium Potassium Chloride Carbon Dioxide Anion Gap BUN Creatinine Est GFR ( Amer) Est GFR (Non-Af Amer) POC Glucose (mg/dL) 176 H 234 H 179 H Random Glucose Calcium Total Bilirubin AST ALT Alkaline Phosphatase Total Protein Albumin Globulin Albumin/Globulin Ratio Blood Type Antibody Screen Crossmatch BBK History Checked Intake & Output: Intake & Output 03/28/18 03/29/18 03/29/18 18:59 06:59 18:59 Intake Total 770 480 Output Total 1000 1150 Balance -230 -670 Intake: IV 100 100 Left Upper arm 100 100 Oral 380 Blood Product 650 Red Blood Cells Cpd As1 325 Lr Unit [id number] Other 20 Red Blood Cells Cpd As1 20 Lr Unit [id number] Output: Urine 1000 1150 Urethral ([place]ore) 1000 1150 Other: # Bowel Movements 1 Vital Signs: Vital Signs - 24 hr 03/28/18 03/28/18 03/28/18 13:38 13:57 13:58 Temperature 98.2 F 98.2 F 98.2 F Pulse Rate 94 H 92 H 92 H Respiratory 18 10 L 18 Rate Blood Pressure 137/72 138/72 O2 Sat by Pulse Oximetry 03/28/18 03/28/18 03/28/18 14:42 16:52 17:09 Temperature 98.1 F 98.9 F 98.9 F Pulse Rate 83 81 81 Respiratory 18 18 20 Rate Blood Pressure 122/63 120/82 120/82 O2 Sat by Pulse 95 Oximetry 03/28/18 03/28/18 03/28/18 17:14 17:17 17:18 Temperature Pulse Rate 81 81 Respiratory Rate Blood Pressure 120/82 120/82 120/82 O2 Sat by Pulse Oximetry 03/29/18 03/29/18 03/29/18 06:00 12:20 12:24 Temperature 97.7 F Pulse Rate 95 H 95 H 97 H Respiratory 20 Rate Blood Pressure 121/68 121/68 121/68 O2 Sat by Pulse 94 L Oximetry
--- NOTE | 2018-03-29 14:54 | CP.PCM.PN ---
<Larry Thomas - Last Filed: 03/29/18 14:50> Subjective - Date & Time of Evaluation Date of Evaluation: 03/29/18 Time of Evaluation: 14:50 - Subjective Subjective: Infectious disease progress note - Edilberto Thomas PGY3 Patient seen and examined at bedside. No acute overnight events or new complaints reported. She is s/p TMA and is scheduled to return to the OR for wound vac/graft placement. Denies cp, palpitations, SOB. Objective - Vital Signs/Intake and Output Vital Signs (last 24 hours): Temp Pulse Resp BP Pulse Ox 97.7 F 97 H 20 121/68 94 L 03/29/18 06:00 03/29/18 12:24 03/29/18 06:00 03/29/18 12:24 03/29/18 06:00 Intake and Output: 03/29/18 03/29/18 06:59 18:59 Intake Total 480 Output Total 1150 Balance -670 - Medications Medications: Current Medications Albuterol/Ipratropium (Duoneb 3 Mg/0.5 Mg (3 Ml) Ud) 3 ml IH [id number] [facility] Last Admin: 03/29/18 11:22 Dose: Not Given Albuterol/Ipratropium (Duoneb 3 Mg/0.5 Mg (3 Ml) Ud) 3 ml IH [id number] PRN PRN Reason: Shortness of Breath Last Admin: 03/26/18 17:16 Dose: 3 ml Allopurinol (Zyloprim) 100 mg PO DAILY [facility] Last Admin: 03/29/18 12:28 Dose: 100 mg Aspirin (Ecotrin) 81 mg PO DAILY [facility] Last Admin: 03/29/18 12:21 Dose: 81 mg Atorvastatin Calcium (Lipitor) 20 mg PO DAILY [facility] Last Admin: 03/18/18 09:50 Dose: 20 mg Calcium Acetate (Phoslo) 1,334 mg PO WM [facility] Last Admin: 03/29/18 12:26 Dose: 1,334 mg Furosemide (Lasix) 40 mg PO DAILY [facility] Last Admin: 03/29/18 12:24 Dose: 40 mg Hydralazine HCl (Apresoline) 25 mg PO BID [facility] Last Admin: 03/29/18 12:20 Dose: 25 mg Hydromorphone HCl (Dilaudid) 2 mg IVP Q4H PRN PRN Reason: Pain, severe (8-10) Last Admin: 03/29/18 00:38 Dose: 2 mg Meropenem/Sodium Chloride (Merrem Iv 500 Mg/Ns 50 Ml) 500 mg in 50 mls @ 100 mls/hr IVPB Q12 [facility]; Protocol Stop: 04/03/18 15:34 Last Admin: 03/29/18 12:25 Dose: 100 mls/hr Insulin Detemir (Levemir) 20 unit SC HS [facility] Last Admin: 03/28/18 21:25 Dose: 20 unit Insulin Human Lispro (Humalog Med) 0 units SC ACHS [facility] Last Admin: 03/29/18 12:21 Dose: 1 units Insulin Lispro Protam/Lispro Human (Humalog Mix 75/25) 18 units SC ACBD [facility] Last Admin: 03/29/18 12:22 Dose: 18 units Metoprolol Tartrate (Lopressor) 50 mg PO BID [facility] Last Admin: 03/29/18 12:24 Dose: 50 mg Montelukast Sodium (Singulair) 10 mg PO [facility] Last Admin: 03/28/18 21:25 Dose: 10 mg Home Med - Fluvoxamine [Luvox] 25 Mg 25 mg PO BID [facility] Last Admin: 03/29/18 12:21 Dose: Not Given Home Med - Umeclidinium [place] [Incruse Ellipta] 1 Puff 1 puff IH [facility] Last Admin: 03/28/18 22:00 Dose: Not Given Nortriptyline HCl (Pamelor) 50 mg PO [facility] Last Admin: 03/28/18 21:25 Dose: 50 mg Oxychlorosene Sodium (Clorpactin Wcs-90) 2 gm TOP Q12 [facility] Last Admin: 03/29/18 12:20 Dose: Not Given Oxychlorosene Sodium (Clorpactin Wcs-90) 2 gm TOP DAILY [facility] Last Admin: 03/29/18 12:21 Dose: Not Given Pantoprazole Sodium (Protonix Ec Tab) 20 mg PO ACB [facility] Last Admin: 03/29/18 12:27 Dose: 20 mg Potassium Chloride (Klor-Con 10) 20 meq PO BRK [facility] Last Admin: 03/29/18 12:23 Dose: 20 meq Potassium Chloride (K-Dur 20 Meq Er Tab) 20 meq PO BRK [facility] Last Admin: 12/07/18 12:23 Dose: 20 meq Prednisone (Prednisone Tab) 10 mg PO DAILY [facility] Last Admin: 03/29/18 12:27 Dose: 10 mg Quetiapine Fumarate (Seroquel Xr) 100 mg PO HS [facility]; Protocol Last Admin: 03/28/18 21:24 Dose: 100 mg Silver Sulfadiazine (Silvadene 1% 25 Gm) 1 gm TP BID [facility] Last Admin: 03/29/18 12:27 Dose: Not Given Tizanidine HCl (Zanaflex) 2 mg PO Q6 [facility] Last Admin: 03/29/18 12:27 Dose: 2 mg - Labs Labs: 03/29/18 07:14 03/29/18 07:14 PT 15.0 SECONDS (9.4-12.5) H 03/29/18 07:14 INR 1.30 03/29/18 07:14 APTT 35.8 Seconds (25.1-36.5) 03/21/18 00:23 - Constitutional Appears: No Acute Distress - Head Exam Head Exam: ATRAUMATIC, NORMAL INSPECTION, NORMOCEPHALIC - Eye Exam Eye Exam: EOMI, PERRL - ENT Exam ENT Exam: Mucous Membranes Moist - Respiratory Exam Respiratory Exam: absent: Rales, Rhonchi, Wheezes - Cardiovascular Exam Cardiovascular Exam: +S1, +S2. absent: Clicks, Gallop, Rubs - GI/Abdominal Exam GI & Abdominal Exam: Soft. absent: Distended, Firm, Guarding, Rigid, Tenderness, Rebound - Neurological Exam Neurological Exam: Alert, Awake, Oriented x3 - Psychiatric Exam Psychiatric exam: Normal Affect, Normal Mood Assessment and Plan - Assessment and Plan (Free Text) Plan: 57yo female with history of COPD, obesity, fibromyalgia, recurrent UTI, restless leg syndrome, HTN, chronic CHF, DM, diabetic neuropathy, CKD, endometriosis, charcot foot and cellulitis of LE admitted for septic shock secondary to staph aureus bacteremia and staph aureus foot abscess s/p I&D in the setting of acute kidney injury. 1. resolved septic shock secondary to staph aureus bacteremia 2. Staph aureus left foot abscess/gangrene s/p I&D and s/p TMA 3. JAMIL on CKD 4. COPD, chronic 5. CHF, chronic 6. Normocytic anemia 7. Hx of hypertension 8. Diabetes mellitus type 2 9. Diabetic neuropathy -Patient is s/p left TMA by podiatry due to worsening gangrenous changes -She is scheduled to return to the OR for graft/wound vac placement -Pending OR wound cultures s/p TMA -She presently requires 4-6 weeks of meropenem however course may be shortened to ~7-10 days depending on margins post amputation -Presently undergoing hyperbaric oxygen treatment -MRI negative for osteomyelitis -Echocardiogram revealed no apparent thrombus; LVEF 59%; see full report -Continue current management as per medicine/podiatry teams Patient seen and case discussed/reviewed with attending, Dr. Peacock <Jan Peacock - Last Filed: 03/29/18 17:29> Objective - Vital Signs/Intake and Output Vital Signs (last 24 hours): Temp Pulse Resp BP Pulse Ox 97.7 F 88 20 140/70 94 L 03/29/18 06:00 03/29/18 17:20 03/29/18 06:00 03/29/18 17:20 03/29/18 06:00 Intake and Output: 03/29/18 03/29/18 06:59 18:59 Intake Total 480 Output Total 1150 Balance -670 - Medications Medications: Current Medications Albuterol/Ipratropium (Duoneb 3 Mg/0.5 Mg (3 Ml) Ud) 3 ml IH [id number] [facility] Last Admin: 03/29/18 15:42 Dose: 3 ml Albuterol/Ipratropium (Duoneb 3 Mg/0.5 Mg (3 Ml) Ud) 3 ml IH [id number] PRN PRN Reason: Shortness of Breath Last Admin: 03/26/18 17:16 Dose: 3 ml Allopurinol (Zyloprim) 100 mg PO DAILY [facility] Last Admin: 03/29/18 12:28 Dose: 100 mg Aspirin (Ecotrin) 81 mg PO DAILY [facility] Last Admin: 03/29/18 12:21 Dose: 81 mg Atorvastatin Calcium (Lipitor) 20 mg PO DAILY [facility] Last Admin: 03/18/18 09:50 Dose: 20 mg Calcium Acetate (Phoslo) 1,334 mg PO WM [facility] Last Admin: 03/29/18 17:21 Dose: 1,334 mg Furosemide (Lasix) 40 mg PO DAILY [facility] Last Admin: 03/29/18 12:24 Dose: 40 mg Hydralazine HCl (Apresoline) 25 mg PO BID [facility] Last Admin: 03/29/18 17:17 Dose: 25 mg Hydromorphone HCl (Dilaudid) 2 mg IVP Q4H PRN PRN Reason: Pain, severe (8-10) Last Admin: 03/29/18 17:22 Dose: 2 mg Meropenem/Sodium Chloride (Merrem Iv 500 Mg/Ns 50 Ml) 500 mg in 50 mls @ 100 mls/hr IVPB Q12 [facility]; Protocol Stop: 04/03/18 15:34 Last Admin: 03/29/18 12:25 Dose: 100 mls/hr Insulin Detemir (Levemir) 20 unit SC [facility] Last Admin: 03/28/18 21:25 Dose: 20 unit Insulin Human Lispro (Humalog Med) 0 units SC [facility] Last Admin: 03/29/18 17:18 Dose: 3 units Insulin Lispro Protam/Lispro Human (Humalog Mix 75/25) 18 units SC ACBD [facility] Last Admin: 03/29/18 17:19 Dose: 18 units Metoprolol Tartrate (Lopressor) 50 mg PO BID [facility] Last Admin: 03/29/18 17:20 Dose: 50 mg Montelukast Sodium (Singulair) 10 mg PO [facility] Last Admin: 03/28/18 21:25 Dose: 10 mg Home Med - Fluvoxamine [Luvox] 25 Mg 25 mg PO BID [facility] Last Admin: 03/29/18 17:18 Dose: Not Given Home Med - Umeclidinium [place] [Incruse Ellipta] 1 Puff 1 puff IH [facility] Last Admin: 03/28/18 22:00 Dose: Not Given Nortriptyline HCl (Pamelor) 50 mg PO [facility] Last Admin: 03/28/18 21:25 Dose: 50 mg Oxychlorosene Sodium (Clorpactin Wcs-90) 2 gm TOP Q12 [facility] Last Admin: 03/29/18 12:20 Dose: Not Given Oxychlorosene Sodium (Clorpactin Wcs-90) 2 gm TOP DAILY [facility] Last Admin: 03/29/18 12:21 Dose: Not Given Pantoprazole Sodium (Protonix Ec Tab) 20 mg PO ACB [facility] Last Admin: 03/29/18 12:27 Dose: 20 mg Potassium Chloride (Klor-Con 10) 20 meq PO BRK [facility] Last Admin: 03/29/18 12:23 Dose: 20 meq Potassium Chloride (K-Dur 20 Meq Er Tab) 20 meq PO BRK [facility] Last Admin: 03/29/18 12:23 Dose: 20 meq Prednisone (Prednisone Tab) 10 mg PO DAILY [facility] Last Admin: 03/29/18 12:27 Dose: 10 mg Quetiapine Fumarate (Seroquel Xr) 100 mg PO HS [facility]; Protocol Last Admin: 03/28/18 21:24 Dose: 100 mg Silver Sulfadiazine (Silvadene 1% 25 Gm) 1 gm TP BID [facility] Last Admin: 03/29/18 17:21 Dose: Not Given Tizanidine HCl (Zanaflex) 2 mg PO Q6 [facility] Last Admin: 03/29/18 17:21 Dose: 2 mg - Labs Labs: 03/29/18 07:14 03/29/18 07:14 PT 15.0 SECONDS (9.4-12.5) H 03/29/18 07:14 INR 1.30 03/29/18 07:14 APTT 35.8 Seconds (25.1-36.5) 03/21/18 00:23 Assessment and Plan - Assessment and Plan (Free Text) Plan: Infectious diseases Attending Physician Attestation Patient seen and examined, discussed with medical anthropologist. I have reviewed the patient's history of present illness, past medical, social, personal and family histories, pertinent physical exam findings, course so far in this hospital admission, pertinent laboratory and imaging results. I agree with the above findings, assessment and plan. In addition, will continue Merrem for this patient with sepsis with MSSA bacteremia from left foot severe skin and skin structure infection. She has undergone transmetatarsal amputation and will follow up OR pathology (cultures from the OR are negative 03/27/2018). Will continue to monitor clinically.
--- NOTE | 2018-03-29 14:56 | CP.PCM.PCO ---
Physician Communication Note - Physician Communication Note Physician Communication Note: OR Sunday04/01/18 16:30
--- NOTE | 2018-03-29 17:24 | CP.PCM.CON ---
History of Present Illness - History of Present Illness History of Present Illness: 57F pmhx significant for COPD, Recurrent UTI, HTN, CHF, DM, CKD, s/p L TMA and anemia due to chronic renal disease who was admitted for sepsis and had to undergo surgery for her foot. Hematology consulted for patients known anemia. She follows up with Dr. Dang who administered procrit and Venofer for her anemia. At this time she is complaining of left upper extremity pain at the site of PICC line and pain at the surgical site. She was started on temporary dialysis and had a catheter placed during this admission. She denies any other bleeding or bruising at this time. Since admission she has had multiple blood products and her hemoglobin had been stable at 8 at this time. No fevers or chills as per pateitn now. ROS: all systems reviewed and are negative other than what is mentioned above PMH: Stated above, charcot foot, endometriosis, diabetic neuropathy PSH: oopherectomy, laparotomy, laparoscopy ALL: Theophylline, ceftaroline, iodine Socialhx: denies tobacco, etoh, recreational drug use FH: non-contributory Review of Systems - Review of Systems All systems: reviewed and no additional remarkable complaints except Past Patient History - Infectious Disease Hx of Infectious Diseases: None - Tetanus Immunizations Tetanus Immunization: Unknown - Past Medical History & Family History Past Medical History?: Yes - Past Social History Smoking Status: Former Smoker - CARDIAC Hx Cardiac Disorders: Yes (coronary stent.) Hx Congestive Heart Failure: Yes Hx Hypertension: Yes - PULMONARY Hx Chronic Obstructive Pulmonary Disease (COPD): Yes - NEUROLOGICAL Hx Neurological Disorder: Yes Hx Dizziness: Yes - HEENT Hx HEENT Problems: Yes (EPISTAXIS) Hx Epistaxis: Yes - RENAL Hx Renal Failure: Yes - ENDOCRINE/METABOLIC Hx Diabetes Mellitus Type 2: Yes - HEMATOLOGICAL/ONCOLOGICAL Hx Blood Transfusions: Yes Hx Blood Transfusion Reaction: No - INTEGUMENTARY Hx Dermatological Problems: Yes Hx Cellulitis: Yes - MUSCULOSKELETAL/RHEUMATOLOGICAL Hx Arthritis: Yes - GASTROINTESTINAL Hx Gastrointestinal Disorders: Yes Other/Comment: hernia - GENITOURINARY/GYNECOLOGICAL Other/Comment: Endometriosis - PSYCHIATRIC Hx Psychophysiologic Disorder: Yes Hx Anxiety: Yes Hx Depression: Yes Hx Substance Use: No - SURGICAL HISTORY Hx Surgeries: Yes - ANESTHESIA Hx Anesthesia Reactions: No Hx Malignant Hyperthermia: No Meds Allergies/Adverse Reactions: Allergies Allergy/AdvReac Type Severity Reaction Status Date / Time Iodine and Iodide Containing Allergy Intermediate URTICARIA Verified 03/15/18 00:44 Produc ceftaroline fosamil Allergy ITCHING Verified 03/14/18 10:32 [From Teflaro] theophylline Allergy NAUSEA Verified 03/14/18 10:32 - Medications Medications: Current Medications Albuterol/Ipratropium (Duoneb 3 Mg/0.5 Mg (3 Ml) Ud) 3 ml IH [id number] [facility] Last Admin: 03/29/18 15:42 Dose: 3 ml Albuterol/Ipratropium (Duoneb 3 Mg/0.5 Mg (3 Ml) Ud) 3 ml IH [id number] PRN PRN Reason: Shortness of Breath Last Admin: 03/26/18 17:16 Dose: 3 ml Allopurinol (Zyloprim) 100 mg PO DAILY [facility] Last Admin: 03/29/18 12:28 Dose: 100 mg Aspirin (Ecotrin) 81 mg PO DAILY [facility] Last Admin: 03/29/18 12:21 Dose: 81 mg Atorvastatin Calcium (Lipitor) 20 mg PO DAILY [facility] Last Admin: 03/18/18 09:50 Dose: 20 mg Calcium Acetate (Phoslo) 1,334 mg PO WM [facility] Last Admin: 03/29/18 12:26 Dose: 1,334 mg Furosemide (Lasix) 40 mg PO DAILY [facility] Last Admin: 03/29/18 12:24 Dose: 40 mg Hydralazine HCl (Apresoline) 25 mg PO BID [facility] Last Admin: 03/29/18 12:20 Dose: 25 mg Hydromorphone HCl (Dilaudid) 2 mg IVP Q4H PRN PRN Reason: Pain, severe (8-10) Last Admin: 03/29/18 00:38 Dose: 2 mg Meropenem/Sodium Chloride (Merrem Iv 500 Mg/Ns 50 Ml) 500 mg in 50 mls @ 100 mls/hr IVPB Q12 [facility]; Protocol Stop: 04/03/18 15:34 Last Admin: 03/29/18 12:25 Dose: 100 mls/hr Insulin Detemir (Levemir) 20 unit SC HS [facility] Last Admin: 03/28/18 21:25 Dose: 20 unit Insulin Human Lispro (Humalog Med) 0 units SC ACHS [facility] Last Admin: 03/29/18 12:21 Dose: 1 units Insulin Lispro Protam/Lispro Human (Humalog Mix 75/25) 18 units SC ACBD [facility] Last Admin: 03/29/18 12:22 Dose: 18 units Metoprolol Tartrate (Lopressor) 50 mg PO BID [facility] Last Admin: 03/29/18 12:24 Dose: 50 mg Montelukast Sodium (Singulair) 10 mg PO [facility] Last Admin: 03/28/18 21:25 Dose: 10 mg Home Med - Fluvoxamine [Luvox] 25 Mg 25 mg PO BID [facility] Last Admin: 03/29/18 12:21 Dose: Not Given Home Med - Umeclidinium [place] [Incruse Ellipta] 1 Puff 1 puff IH [facility] Last Admin: 03/28/18 22:00 Dose: Not Given Nortriptyline HCl (Pamelor) 50 mg PO [facility] Last Admin: 03/28/18 21:25 Dose: 50 mg Oxychlorosene Sodium (Clorpactin Wcs-90) 2 gm TOP Q12 [facility] Last Admin: 03/29/18 12:20 Dose: Not Given Oxychlorosene Sodium (Clorpactin Wcs-90) 2 gm TOP DAILY [facility] Last Admin: 03/29/18 12:21 Dose: Not Given Pantoprazole Sodium (Protonix Ec Tab) 20 mg PO ACB [facility] Last Admin: 03/29/18 12:27 Dose: 20 mg Potassium Chloride (Klor-Con 10) 20 meq PO BRK [facility] Last Admin: 03/29/18 12:23 Dose: 20 meq Potassium Chloride (K-Dur 20 Meq Er Tab) 20 meq PO BRK [facility] Last Admin: 03/29/18 12:23 Dose: 20 meq Prednisone (Prednisone Tab) 10 mg PO DAILY [facility] Last Admin: 03/29/18 12:27 Dose: 10 mg Quetiapine Fumarate (Seroquel Xr) 100 mg PO [facility]; Protocol Last Admin: 03/28/18 21:24 Dose: 100 mg Silver Sulfadiazine (Silvadene 1% 25 Gm) 1 gm TP BID [facility] Last Admin: 03/29/18 12:27 Dose: Not Given Tizanidine HCl (Zanaflex) 2 mg PO Q6 [facility] Last Admin: 03/29/18 12:27 Dose: 2 mg Physical Exam - Constitutional Appears: Well, Non-toxic, No Acute Distress - Head Exam Head Exam: ATRAUMATIC, NORMAL INSPECTION, NORMOCEPHALIC - Eye Exam Eye Exam: EOMI, Normal appearance, PERRL. absent: Conjunctival injection, Periorbital swelling Pupil Exam: NORMAL ACCOMODATION - ENT Exam ENT Exam: Mucous Membranes Moist, Normal Exam - Neck Exam Neck exam: Positive for: Normal Inspection Additional comments: no lypmhadenopathy right chest wall tunnel cath in place for HD. - Respiratory Exam Respiratory Exam: Clear to Auscultation Bilateral, NORMAL BREATHING PATTERN - Cardiovascular Exam Cardiovascular Exam: REGULAR RHYTHM, +S1, +S2 - GI/Abdominal Exam GI & Abdominal Exam: Normal Bowel Sounds - Rectal Exam Rectal Exam: Deferred - Extremities Exam Additional comments: left foot wrapped in steve bandage s/p TMA - Back Exam Back exam: NORMAL INSPECTION - Neurological Exam Neurological exam: Alert, CN II-XII Intact, Oriented x3 - Psychiatric Exam Psychiatric exam: Normal Affect, Normal Mood - Additional Findings Additional findings: left upper extremity extensive bruising noted at the site of PICC line, tender to the patient, but not warm to touch. Results - Vital Signs Recent Vital Signs: Last Vital Signs Temp 97.7 F 03/29/18 06:00 Pulse 97 H 03/29/18 12:24 Resp 20 03/29/18 06:00 BP 121/68 03/29/18 12:24 Pulse Ox 94 L 03/29/18 06:00 - Labs Result Diagrams: 03/29/18 07:14 03/29/18 07:14 Labs: Laboratory Results - last 24 hr 03/28/18 03/29/18 03/29/18 21:12 07:14 07:14 WBC 9.7 RBC 2.76 L Hgb 8.0 L Hct 25.1 L MCV 90.9 MCH 29.0 MCHC 31.9 RDW 15.6 H Plt Count 372 MPV 9.7 PT INR Sodium Potassium Chloride Carbon Dioxide Anion Gap BUN Creatinine Est GFR ( Amer) Est GFR (Non-Af Amer) POC Glucose (mg/dL) 279 H Random Glucose Calcium Magnesium Total Bilirubin AST ALT Alkaline Phosphatase Total Protein Albumin Globulin Albumin/Globulin Ratio Blood Type A POSITIVE Antibody Screen Negative Crossmatch See Detail BBK History Checked Patient has bt 03/29/18 03/29/18 03/29/18 07:14 07:14 07:14 WBC RBC Hgb Hct MCV MCH MCHC RDW Plt Count MPV PT 15.0 H INR 1.30 Sodium 133 Potassium 4.8 Chloride 100 Carbon Dioxide 26 Anion Gap 12 BUN 98 H Creatinine 2.4 H Est GFR ( Amer) 25 Est GFR (Non-Af Amer) 21 POC Glucose (mg/dL) Random Glucose 202 H Calcium 8.4 Magnesium 1.3 L Total Bilirubin 0.4 AST 29 ALT 34 Alkaline Phosphatase 83 Total Protein 6.0 Albumin 2.6 L Globulin 3.4 Albumin/Globulin Ratio 0.8 L Blood Type Antibody Screen Crossmatch BBK History Checked 03/29/18 03/29/18 03/29/18 07:49 09:34 11:32 WBC RBC Hgb Hct MCV MCH MCHC RDW Plt Count MPV PT INR Sodium Potassium Chloride Carbon Dioxide Anion Gap BUN Creatinine Est GFR ( Amer) Est GFR (Non-Af Amer) POC Glucose (mg/dL) 199 H 176 H 234 H Random Glucose Calcium Magnesium Total Bilirubin AST ALT Alkaline Phosphatase Total Protein Albumin Globulin Albumin/Globulin Ratio Blood Type Antibody Screen Crossmatch BBK History Checked 03/29/18 12:14 WBC RBC Hgb Hct MCV MCH MCHC RDW Plt Count MPV PT INR Sodium Potassium Chloride Carbon Dioxide Anion Gap BUN Creatinine Est GFR ( Amer) Est GFR (Non-Af Amer) POC Glucose (mg/dL) 179 H Random Glucose Calcium Magnesium Total Bilirubin AST ALT Alkaline Phosphatase Total Protein Albumin Globulin Albumin/Globulin Ratio Blood Type Antibody Screen Crossmatch BBK History Checked Assessment & Plan - Assessment and Plan (Free Text) Assessment: A/P 57 year old female with multiple comorbid conditions admitted for sepsis due to gangrenous changes s/p podiatric surgery TMA. Hematology consulted for anemia. Anemia is mulitfactorial due to recent blood loss from recent surgery, chronic disease and renal disease. Plan Monitor CBC Transfuse as clinically indicated Monitor for bleeding Would re-evaluate site of PICC line, if it is more tender would perform a Doppler to rule out any thrombosis/phlebitis Thank you for allowing me to partake in your patients care. Sincerely, Micheal Jordan (Covering for Dr. Dang)
--- NOTE | 2018-03-29 17:37 | PN ---
DATE: 03/29/2018 SUBJECTIVE: The patient is 57-year-old, getting hyperbaric treatment. Has general ooze from her surgical site, scheduled for a skin graft on Sunday. PHYSICAL EXAMINATION: GENERAL: She is awake, alert, and oriented fully. VITAL SIGNS: She is afebrile, pulse 99, respirations 20, and blood pressure 121/68. LUNGS: Bilateral fair airflow. No rhonchi or crackles. HEART: S1 and S2 audible. ABDOMEN: Soft, obese, and nontender. No rebound and no guarding. NEUROLOGICAL: She is awake, alert, oriented, and communicative. EXTREMITIES: Right foot is in the dressing. LABORATORY DATA: WBC 9.7, hemoglobin 8, hematocrit 25.1, and platelet of 372. Chemistry: Sodium 133, potassium 4.8, chloride 100, CO2 of 26, BUN 98, creatinine 2.4, and blood sugar 235. ASSESSMENT AND PLAN: 1. Status post Staphylococcus aureus bacteremia. 2. Status post left transmetatarsal amputation. 3. Insulin-dependent diabetes. 4. Chronic anemia. 5. [id number] renal failure, status post multiple hemodialysis. 6. Hyperuricemia. 7. Diabetic neuropathy. 8. Chronic obstructive pulmonary disease and the patient is getting hyperbaric treatment. She will be evaluated by Dr. Dang, might need blood transfusion. Blood sugar numbers are running bad. She is scheduled for skin graft on Sunday and after that we will make a decision. Colt Zhu MD
--- NOTE | 2018-03-29 20:21 | PN ---
DATE: 03/29/2018 REASON FOR CONSULTATION AND FOLLOWUP: Cardiac evaluation, history of coronary artery disease, follow up left foot abscess, status post I and D, possible myocutaneous graft on Sunday. This note is in addition to dictated by nurse practitioner, Liz Jiménez. The patient admitted with septic shock secondary to the source being the foot status post I and D twice. The patient is for myocutaneous graft on Sunday. The patient had a coagulopathy possibly secondary to septic shock and they were treated with vitamin K was given. INR is 1.4 now, today is 1.3. Dr. Dang was asked for Hematology follow up. The patient was cleared from Cardiology point of view to go for myocutaneous graft. Currently, continue baby aspirin. The patient is off Plavix, last stent was in 2012. Continue atorvastatin. Continue beta-bev. The patient is on IV Lasix. The patient had couple of cycles of dialysis, now she is off dialysis. When the patient's kidney function stabilizes, we will start MARYLU and ARB. The patient is currently not on MARYLU or ARB on beta-bev because the patient has history of chronic kidney disease, went into acute kidney, and did requiring dialysis. Again the patient is cleared from Cardiology point of view with moderate risk and from Cardiology point of view to go for myocutaneous graft. We will follow with you. Thank you Dr. Zhu for providing us the opportunity in taking care of the patient, Ashley Mallory. Stephanie Anton MD
[2018-03-29] MEDS ORDERED: Magnesium Sulfate 1 gm in D5W 1 GM/100 ML BAG IVPB ONE (21:32)
[2018-03-29] MEDS: Insulin Detemir 100 units/ml Vial (Levemir) SC SCH (21:42)
[2018-03-29] MEDS: QUEtiapine 50 mg XR Tab PO SCH (21:43)
--- NOTE | 2018-03-30 02:44 | PN ---
DATE: 03/29/2018 SUBJECTIVE: The patient is seen lying in bed. The patient is awake. She is alert. She is comfortable. She complains of cough, but her breathing is much better. She denies any abdominal pain. She denies any nausea or vomiting. PHYSICAL EXAMINATION: GENERAL: Elderly lady, lying in bed. VITAL SIGNS: Blood pressure 121/68, heart rate 97, respiratory rate 18, temperature 99. HEENT: Normocephalic, atraumatic, positive pallor. NECK: Supple. No JVD. LUNGS: Bilateral equal air entry, bilateral rhonchi. No rales. CARDIAC: S1 and S2, regular rate and rhythm. No murmur, no rub. ABDOMEN: Obese, distended, soft, nontender, bowel sounds present. EXTREMITIES: Dressing of the left foot. INTAKE AND OUTPUT: 1250/2150. LABORATORY DATA: WBC 9.7, hemoglobin 8, hematocrit 25, platelets 372. Sodium 133, potassium 4.8, chloride 100, CO2 of 26, BUN 98, creatinine 2.4, glucose 202, calcium 8.4, magnesium 1.3, albumin 2.6. CURRENT MEDICATIONS: Hydralazine 25 mg b.i.d., Dilaudid, DuoNeb, aspirin, insulin, potassium 20 mEq b.i.d., Lasix 40 mg daily, Lipitor, Lopressor, meropenem 500 mg every 12 hours, PhosLo, prednisone, Protonix. ASSESSMENT AND PLAN: 1. Acute kidney injury, superimposed on chronic kidney disease stage III, resolving, creatinine approaching baseline. 2. Status post severe sepsis, Staphylococcus abscess of the left foot. 3. Status post Staphylococcus bacteremia. 4. Left foot transmetatarsal amputation, postoperative day #2. 5. Anemia, [id number]. 6. Secondary hyperparathyroidism. 7. Kyu-fmleljm-yitbdxtwi diabetes mellitus. 8. Hypotension. PLAN: 1. Continue low-dose Lasix. 2. Continue potassium supplementation. 3. Replace magnesium. 4. Continue antibiotics. 5. No indication for dialysis today. 6. Discontinue PermCath. Elva Frank MD
[2018-03-30] MEDS: Albuterol-Ipratrop 3 mg / 0.5 (3 ml) UD IH SCH ×5 (03:48→21:41)
--- NOTE | 2018-03-30 07:32 | CP.PCM.PN ---
Subjective - Date & Time of Evaluation Date of Evaluation: 03/30/18 Time of Evaluation: 07:00 - Subjective Subjective: Lying in bed no distress, easily awaken,denies shortness of breath Reason for consultation and follow up: Cardiac evaluation of coronary artery disease, post op follow up of I & D of left foot abscess, status post left transmetatarsal amputation Seen and examined by me and Dr. Anton Objective - Vital Signs/Intake and Output Vital Signs (last 24 hours): Temp Pulse Resp BP Pulse Ox 97.9 F 100 H 19 121/57 L 98 03/30/18 06:00 03/30/18 06:00 03/30/18 06:00 03/30/18 06:00 03/30/18 06:00 Intake and Output: 03/30/18 03/30/18 06:59 18:59 Intake Total 100 Output Total 2225 Balance -2125 - Medications Medications: Current Medications Albuterol/Ipratropium (Duoneb 3 Mg/0.5 Mg (3 Ml) Ud) 3 ml IH [id number] [facility] Last Admin: 03/30/18 03:48 Dose: 3 ml Albuterol/Ipratropium (Duoneb 3 Mg/0.5 Mg (3 Ml) Ud) 3 ml IH [id number] PRN PRN Reason: Shortness of Breath Last Admin: 03/26/18 17:16 Dose: 3 ml Allopurinol (Zyloprim) 100 mg PO DAILY [facility] Last Admin: 03/29/18 12:28 Dose: 100 mg Aspirin (Ecotrin) 81 mg PO DAILY [facility] Last Admin: 03/29/18 12:21 Dose: 81 mg Atorvastatin Calcium (Lipitor) 20 mg PO DAILY [facility] Last Admin: 03/18/18 09:50 Dose: 20 mg Calcium Acetate (Phoslo) 1,334 mg PO WM [facility] Last Admin: 03/29/18 17:21 Dose: 1,334 mg Furosemide (Lasix) 40 mg PO DAILY [facility] Last Admin: 03/29/18 12:24 Dose: 40 mg Hydralazine HCl (Apresoline) 25 mg PO BID [facility] Last Admin: 03/29/18 17:17 Dose: 25 mg Hydromorphone HCl (Dilaudid) 2 mg IVP Q4H PRN PRN Reason: Pain, severe (8-10) Last Admin: 03/29/18 17:22 Dose: 2 mg Meropenem/Sodium Chloride (Merrem Iv 500 Mg/Ns 50 Ml) 500 mg in 50 mls @ 100 mls/hr IVPB Q12 [facility]; Protocol Stop: 04/03/18 15:34 Last Admin: 03/29/18 21:43 Dose: 100 mls/hr Insulin Detemir (Levemir) 20 unit SC HS [facility] Last Admin: 03/29/18 21:42 Dose: 20 unit Insulin Human Lispro (Humalog Med) 0 units SC ACHS [facility] Last Admin: 03/29/18 21:46 Dose: Not Given Insulin Lispro Protam/Lispro Human (Humalog Mix 75/25) 18 units SC ACBD [facility] Last Admin: 03/29/18 17:19 Dose: 18 units Metoprolol Tartrate (Lopressor) 50 mg PO BID [facility] Last Admin: 03/29/18 17:20 Dose: 50 mg Home Med - Fluvoxamine [Luvox] 25 Mg 25 mg PO BID [facility] Last Admin: 03/29/18 17:18 Dose: Not Given Nortriptyline HCl (Pamelor) 50 mg PO HS [facility] Last Admin: 03/29/18 21:42 Dose: 50 mg Oxychlorosene Sodium (Clorpactin Wcs-90) 2 gm TOP Q12 [facility] Last Admin: 03/29/18 12:20 Dose: Not Given Oxychlorosene Sodium (Clorpactin Wcs-90) 2 gm TOP DAILY [facility] Last Admin: 03/29/18 12:21 Dose: Not Given Pantoprazole Sodium (Protonix Ec Tab) 20 mg PO ACB [facility] Last Admin: 03/29/18 12:27 Dose: 20 mg Potassium Chloride (Klor-Con 10) 20 meq PO BRK [facility] Last Admin: 03/29/18 12:23 Dose: 20 meq Potassium Chloride (K-Dur 20 Meq Er Tab) 20 meq PO BRK [facility] Last Admin: 03/29/18 12:23 Dose: 20 meq Prednisone (Prednisone Tab) 10 mg PO DAILY [facility] Last Admin: 03/29/18 12:27 Dose: 10 mg - Labs Labs: 03/29/18 07:14 03/29/18 07:14 PT 15.0 SECONDS (9.4-12.5) H 03/29/18 07:14 INR 1.30 03/29/18 07:14 APTT 35.8 Seconds (25.1-36.5) 03/21/18 00:23 - Constitutional Appears: Non-toxic, No Acute Distress - Head Exam Head Exam: NORMAL INSPECTION, NORMOCEPHALIC - Eye Exam Eye Exam: Normal appearance Pupil Exam: NORMAL ACCOMODATION - ENT Exam ENT Exam: Mucous Membranes Moist, Normal Exam - Respiratory Exam Respiratory Exam: Clear to Ausculation Bilateral, NORMAL BREATHING PATTERN - Cardiovascular Exam Cardiovascular Exam: +S1, +S2 Additional comments: right IJ trialysis catheter - Extremities Exam Additional comments: left foot dressing leg elevated with pillow - Neurological Exam Neurological Exam: Alert, Awake, Oriented x3 - Psychiatric Exam Psychiatric exam: Normal Affect, Normal Mood - Skin Skin Exam: Dry, Normal Color, Warm Assessment and Plan - Assessment and Plan (Free Text) Assessment: A 57 year old female who came in to the ER due to left foot swelling. History of coronary artery disease post stents on 02/2013. COPD, obesity, fibromyalgia, HTN, CHF, DM, Diabetic neuropathy, Charcot foot, kidney disease, endometriosis, cellulitis of lower extremities. ESRD on hemodialysis. Had I & D of left foot. Wound positive for Staphyloccoccus aureaus. On IV antibiotics, Post blood transfusion with hemodialysis for low H/H.elevated INR from septic shock, she was not on coumadin before. Plavix discontinued. On Hyperbaric treatment for left foot wound. Discontinued Plavix and Aspirin.Being followed up by Podiatry. Vitamin K given for elevated INR. Low H/H post op, transfused 1 unit of PRBC. Status post left transmetatarsal amputation POD#2. Repeat H/H 8.5/27.3, transfused another unit of PRBC, Hematology on consult to manage elevated INR. Off ARB and MARYLU inhibitor due to renal insufficiency. Off hemodialysis right now, will restart ARB and MARYLU inhibitor once renal status stabilized.Cleared from cardiac standpoint with moderate risk for possible skin grafting of the left foot on Sunday. Plan: Status post left transmetatarsal amputation POD#3 H/H 8.0/25.1 For possible skin grafting of left foot on Sunday Cleared for procedure from cardiac standpoint Denies chest pain or shortness of breath,No distress, Blood pressure controlled Cardiac status stable Heart rate controlled Lipitor 20 mg daily,Lopressor 50 mg BID, Hydralazine 25 mg BID Potassium Chloride 20 meq daily Continue antibiotics as per ID Continue current treatment Continue current medications Chart reviewed Will follow up Plan and treatment discussed with Dr. Anton
[2018-03-30 08:12] LABS: HEMOGLOBIN 8.4 g/dL (12.0-16.0); MEAN CELL VOLUME 92.2 fl (80.0-105.0); MEAN CORPUSCULAR HEMOGLOBIN 28.6 pg (25.0-35.0); MEAN PLATELET VOLUME 10.9 fl (7.0-11.0); RBC 2.94 10^6/uL (3.5-6.1); RED CELL DISTRIBUTION WIDTH 15.4 % (11.5-14.5); WHITE BLOOD COUNT 8.9 10^3/uL (4.5-11.0)
[2018-03-30] MEDS: Insulin Lispro (humaLOG) MEDIUM Coverage SC SCH ×4 (08:37→23:12)
[2018-03-30] MEDS: Insulin Lispro (humaLOG) MIX 75/25(10 ml) SC SCH ×2 (08:37→17:20)
[2018-03-30 08:39] LABS: ALB/GLOB RATIO 0.8 (1.1-1.8); ALBUMIN 2.8 g/dL (3.0-4.8); CALCIUM 9.1 mg/dL (8.4-10.5)
[2018-03-30] MEDS: FLUVOXAMINE 25 MG PO SCH ×2 (09:32→17:20)
[2018-03-30] MEDS: Oxychlorosene Topical 2 gm Packet TOP SCH ×3 (09:32→22:38)
[2018-03-30] MEDS: Potassium Chloride 10 mEq ER Tab PO SCH (09:33)
[2018-03-30] MEDS: Potassium Chloride 20 mEq ER Tab PO SCH (09:33)
[2018-03-30] MEDS: MEROPENEM 500 MG in NS 500 MG/50 ML BAG IVPB SCH ×2 (09:34→22:19)
[2018-03-30] MEDS: Pantoprazole 20 mg EC Tab PO SCH (09:40)
--- NOTE | 2018-03-30 10:02 | CP.PCM.PN ---
<DoyleKalinakate - Last Filed: 03/30/18 09:59> Subjective - Date & Time of Evaluation Date of Evaluation: 03/30/18 Time of Evaluation: 09:59 - Subjective Subjective: Podiatry progress note for Dr. Bills 57 y/o F patient seen and evaluated 3 days S/P TMA left foot secondary to diabetic foot abscess, necrotizing fasciitis and gangrenous changes to the left foot. Patient states that she doesn't feel any pain at the surgery site. Patient denies any other pedal complaints at this time. Patient states that she has no pain to her left foot. Patient denies any postoperative N/V/F/C/CP. Objective - Vital Signs/Intake and Output Vital Signs (last 24 hours): Temp Pulse Resp BP Pulse Ox 97.9 F 100 H 19 122/60 98 03/30/18 06:00 03/30/18 09:34 03/30/18 06:00 03/30/18 09:34 03/30/18 06:00 Intake and Output: 03/30/18 03/30/18 06:59 18:59 Intake Total 100 Output Total 2225 Balance -2125 - Medications Medications: Current Medications Albuterol/Ipratropium (Duoneb 3 Mg/0.5 Mg (3 Ml) Ud) 3 ml IH [id number] [facility] Last Admin: 03/30/18 08:22 Dose: 3 ml Albuterol/Ipratropium (Duoneb 3 Mg/0.5 Mg (3 Ml) Ud) 3 ml IH [id number] PRN PRN Reason: Shortness of Breath Last Admin: 03/26/18 17:16 Dose: 3 ml Allopurinol (Zyloprim) 100 mg PO DAILY [facility] Last Admin: 03/30/18 09:35 Dose: 100 mg Aspirin (Ecotrin) 81 mg PO DAILY [facility] Last Admin: 03/30/18 09:32 Dose: 81 mg Atorvastatin Calcium (Lipitor) 20 mg PO DAILY [facility] Last Admin: 03/18/18 09:50 Dose: 20 mg Calcium Acetate (Phoslo) 1,334 mg PO WM [facility] Last Admin: 03/30/18 09:35 Dose: 1,334 mg Furosemide (Lasix) 40 mg PO DAILY [facility] Last Admin: 03/30/18 09:33 Dose: 40 mg Hydralazine HCl (Apresoline) 25 mg PO BID [facility] Last Admin: 03/30/18 09:30 Dose: 25 mg Hydromorphone HCl (Dilaudid) 2 mg IVP Q4H PRN PRN Reason: Pain, severe (8-10) Last Admin: 03/29/18 17:22 Dose: 2 mg Meropenem/Sodium Chloride (Merrem Iv 500 Mg/Ns 50 Ml) 500 mg in 50 mls @ 100 mls/hr IVPB Q12 [facility]; Protocol Stop: 04/03/18 15:34 Last Admin: 03/30/18 09:34 Dose: 100 mls/hr Insulin Detemir (Levemir) 20 unit SC HS [facility] Last Admin: 03/29/18 21:42 Dose: 20 unit Insulin Human Lispro (Humalog Med) 0 units SC ACHS [facility] Last Admin: 03/30/18 08:37 Dose: 3 units Insulin Lispro Protam/Lispro Human (Humalog Mix 75/25) 18 units SC ACBD [facility] Last Admin: 03/30/18 08:37 Dose: 18 units Metoprolol Tartrate (Lopressor) 50 mg PO BID [facility] Last Admin: 03/30/18 09:34 Dose: 50 mg Home Med - Fluvoxamine [Luvox] 25 Mg 25 mg PO BID [facility] Last Admin: 03/30/18 09:32 Dose: Not Given Nortriptyline HCl (Pamelor) 50 mg PO HS [facility] Last Admin: 03/29/18 21:42 Dose: 50 mg Oxychlorosene Sodium (Clorpactin Wcs-90) 2 gm TOP Q12 [facility] Last Admin: 03/30/18 09:32 Dose: Not Given Oxychlorosene Sodium (Clorpactin Wcs-90) 2 gm TOP DAILY [facility] Last Admin: 03/30/18 09:32 Dose: Not Given Potassium Chloride (Klor-Con 10) 20 meq PO BRK [facility] Last Admin: 03/30/18 09:33 Dose: 20 meq Potassium Chloride (K-Dur 20 Meq Er Tab) 20 meq PO BRK [facility] Last Admin: 03/30/18 09:33 Dose: 20 meq Prednisone (Prednisone Tab) 10 mg PO DAILY [facility] Last Admin: 03/30/18 09:35 Dose: 10 mg - Labs Labs: 03/30/18 08:01 03/30/18 08:01 PT 15.0 SECONDS (9.4-12.5) H 03/29/18 07:14 INR 1.30 03/29/18 07:14 APTT 35.8 Seconds (25.1-36.5) 03/21/18 00:23 - Constitutional Appears: Well, Non-toxic, No Acute Distress - Extremities Exam Additional comments: Bilateral Lower Extremity Exam: VASC: DP/PT 2/4 b/l, Temp gradient warm to warm on the B/L from proximal to distal. Erythema noted proximal to the TMA site up to the ankle. NEURO: Gross and protective sensations are diminished B/L. DERM: TMA amputation site looks clean with no purulent drainage and no bleeding, Surgicell was in place. Tissues at the stump site looks viable. Erythema noted proximal to the TMA site up to the ankle with patch of necrotic black skin at the level of the anterior ankle. Right foot, stable ulceration noted to the tip of the 2nd digit MSK: No pain on palpating the left foot amputation site and the periulcerative area of the Right foot. Left ankle ROM is WNL. Muscle power intact 5/5 to all groups. - Neurological Exam Neurological Exam: Alert, Awake, Oriented x3 - Psychiatric Exam Psychiatric exam: Normal Affect, Normal Mood Assessment and Plan - Assessment and Plan (Free Text) Assessment: 57 y/o F patient seen and evaluated 3 days S/P TMA left foot secondary to diabetic foot abscess, necrotizing fasciitis and gangrenous changes to the left foot. Plan: Patient seen and evaluated at bedside with Dr. Little Charts, labs and vitals reviewed: Afebrile, WBC 8.9, Hb 8.4 Patient general condition is good postoperative Dressing of the surgical site using well padded dressing, (Gauze, ABD and kerlix) and Kishor bandage, Surgicell left in place. Patient is planned to go to the OR Sunday04/01/2018 for graft application and wound VAC application Podiatry will carefully continue to follow up the patient while in house. <Rodríguez Little - Last Filed: 04/01/18 10:23> Objective - Vital Signs/Intake and Output Vital Signs (last 24 hours): Temp Pulse Resp BP Pulse Ox 98.3 F 90 19 122/68 98 04/01/18 08:08 04/01/18 08:08 04/01/18 08:08 04/01/18 08:08 04/01/18 08:08 Intake and Output: 04/01/18 04/01/18 06:59 18:59 Intake Total 240 Output Total 1600 Balance -1360 - Medications Medications: Current Medications Albuterol/Ipratropium (Duoneb 3 Mg/0.5 Mg (3 Ml) Ud) 3 ml IH [id number] [facility] Last Admin: 04/01/18 08:28 Dose: 3 ml Albuterol/Ipratropium (Duoneb 3 Mg/0.5 Mg (3 Ml) Ud) 3 ml IH [id number] PRN PRN Reason: Shortness of Breath Last Admin: 03/26/18 17:16 Dose: 3 ml Allopurinol (Zyloprim) 100 mg PO DAILY [facility] Last Admin: 03/31/18 09:34 Dose: 100 mg Aspirin (Ecotrin) 81 mg PO DAILY [facility] Last Admin: 03/31/18 09:29 Dose: 81 mg Atorvastatin Calcium (Lipitor) 20 mg PO DAILY [facility] Last Admin: 03/18/18 09:50 Dose: 20 mg Calcium Acetate (Phoslo) 1,334 mg PO WM [facility] Last Admin: 03/31/18 17:31 Dose: 1,334 mg Furosemide (Lasix) 40 mg PO DAILY [facility] Last Admin: 03/31/18 09:30 Dose: 40 mg Hydralazine HCl (Apresoline) 25 mg PO BID [facility] Last Admin: 03/31/18 17:28 Dose: 25 mg Hydromorphone HCl (Dilaudid) 2 mg IVP Q4H PRN PRN Reason: Pain, severe (8-10) Last Admin: 03/31/18 22:15 Dose: 2 mg Meropenem/Sodium Chloride (Merrem Iv 500 Mg/Ns 50 Ml) 500 mg in 50 mls @ 100 mls/hr IVPB Q12 [facility]; Protocol Stop: 04/03/18 15:34 Last Admin: 03/31/18 22:13 Dose: 100 mls/hr Insulin Detemir (Levemir) 20 unit SC HS [facility] Last Admin: 03/31/18 22:12 Dose: 20 unit Insulin Human Lispro (Humalog Med) 0 units SC ACHS [facility] Last Admin: 03/31/18 22:13 Dose: Not Given Insulin Lispro Protam/Lispro Human (Humalog Mix 75/25) 18 units SC ACBD [facility] Last Admin: 03/31/18 17:29 Dose: 18 units Magnesium Oxide (Mag-Ox) 400 mg PO DAILY [facility] Last Admin: 03/31/18 09:31 Dose: 400 mg Metoprolol Tartrate (Lopressor) 50 mg PO BID [facility] Last Admin: 03/31/18 17:30 Dose: 50 mg Home Med - Fluvoxamine [Luvox] 25 Mg 25 mg PO BID [facility] Last Admin: 03/31/18 17:28 Dose: Not Given Nortriptyline HCl (Pamelor) 50 mg PO HS [facility] Last Admin: 03/31/18 22:14 Dose: 50 mg Oxychlorosene Sodium (Clorpactin Wcs-90) 2 gm TOP DAILY [facility] Last Admin: 03/31/18 09:29 Dose: Not Given Polysaccharide Iron Complex (Ferrex-150) 150 mg PO DAILY [facility] Last Admin: 03/31/18 09:29 Dose: 150 mg Potassium Chloride (Klor-Con 10) 20 meq PO BRK [facility] Last Admin: 03/31/18 09:30 Dose: 20 meq Potassium Chloride (K-Dur 20 Meq Er Tab) 20 meq PO BRK [facility] Last Admin: 03/31/18 09:30 Dose: 20 meq Prednisone (Prednisone Tab) 10 mg PO DAILY [facility] Last Admin: 03/31/18 09:33 Dose: 10 mg - Labs Labs: 03/31/18 06:50 03/31/18 06:50 PT 15.0 SECONDS (9.4-12.5) H 03/29/18 07:14 INR 1.30 03/29/18 07:14 APTT 35.8 Seconds (25.1-36.5) 03/21/18 00:23 Attending/Attestation - Attestation I have personally seen and examined this patient.: Yes I have fully participated in the care of the patient.: Yes I have reviewed all pertinent clinical information, including history, physical exam and plan: Yes
[2018-03-30] MEDS: HYDROmorphone 1 mg/ml ISec IVP PRN ×2 (12:26→22:18)
--- NOTE | 2018-03-30 15:02 | CP.PCM.PN ---
Subjective - Date & Time of Evaluation Date of Evaluation: 03/30/18 Time of Evaluation: 11:35 - Subjective Subjective: soreness and bruise left arm at site of midline ,seems not functioning,BS IS running better Objective - Vital Signs/Intake and Output Vital Signs (last 24 hours): Temp Pulse Resp BP Pulse Ox 97.9 F 100 H 19 122/60 98 03/30/18 06:00 03/30/18 09:34 03/30/18 06:00 03/30/18 09:34 03/30/18 06:00 Intake and Output: 03/30/18 03/30/18 06:59 18:59 Intake Total 100 Output Total 2225 Balance -2125 - Medications Medications: Current Medications Albuterol/Ipratropium (Duoneb 3 Mg/0.5 Mg (3 Ml) Ud) 3 ml IH [id number] [facility] Last Admin: 03/30/18 08:22 Dose: 3 ml Albuterol/Ipratropium (Duoneb 3 Mg/0.5 Mg (3 Ml) Ud) 3 ml IH [id number] PRN PRN Reason: Shortness of Breath Last Admin: 03/26/18 17:16 Dose: 3 ml Allopurinol (Zyloprim) 100 mg PO DAILY [facility] Last Admin: 03/30/18 09:35 Dose: 100 mg Aspirin (Ecotrin) 81 mg PO DAILY [facility] Last Admin: 03/30/18 09:32 Dose: 81 mg Atorvastatin Calcium (Lipitor) 20 mg PO DAILY [facility] Last Admin: 03/18/18 09:50 Dose: 20 mg Calcium Acetate (Phoslo) 1,334 mg PO WM [facility] Last Admin: 03/30/18 09:35 Dose: 1,334 mg Furosemide (Lasix) 40 mg PO DAILY [facility] Last Admin: 03/30/18 09:33 Dose: 40 mg Hydralazine HCl (Apresoline) 25 mg PO BID [facility] Last Admin: 03/30/18 09:30 Dose: 25 mg Hydromorphone HCl (Dilaudid) 2 mg IVP Q4H PRN PRN Reason: Pain, severe (8-10) Last Admin: 03/29/18 17:22 Dose: 2 mg Meropenem/Sodium Chloride (Merrem Iv 500 Mg/Ns 50 Ml) 500 mg in 50 mls @ 100 mls/hr IVPB Q12 [facility]; Protocol Stop: 04/03/18 15:34 Last Admin: 03/30/18 09:34 Dose: 100 mls/hr Insulin Detemir (Levemir) 20 unit SC HS [facility] Last Admin: 03/29/18 21:42 Dose: 20 unit Insulin Human Lispro (Humalog Med) 0 units SC ACHS [facility] Last Admin: 03/30/18 08:37 Dose: 3 units Insulin Lispro Protam/Lispro Human (Humalog Mix 75/25) 18 units SC ACBD [facility] Last Admin: 03/30/18 08:37 Dose: 18 units Metoprolol Tartrate (Lopressor) 50 mg PO BID [facility] Last Admin: 03/30/18 09:34 Dose: 50 mg Home Med - Fluvoxamine [Luvox] 25 Mg 25 mg PO BID [facility] Last Admin: 03/30/18 09:32 Dose: Not Given Nortriptyline HCl (Pamelor) [address] [facility] Last Admin: 03/29/18 21:42 Dose: 50 mg Oxychlorosene Sodium (Clorpactin Wcs-90) 2 gm TOP Q12 [facility] Last Admin: 03/30/18 09:32 Dose: Not Given Oxychlorosene Sodium (Clorpactin Wcs-90) 2 gm TOP DAILY [facility] Last Admin: 03/30/18 09:32 Dose: Not Given Potassium Chloride (Klor-Con 10) 20 meq PO BRK [facility] Last Admin: 03/30/18 09:33 Dose: 20 meq Potassium Chloride (K-Dur 20 Meq Er Tab) 20 meq PO BRK [facility] Last Admin: 03/30/18 09:33 Dose: 20 meq Prednisone (Prednisone Tab) 10 mg PO DAILY [facility] Last Admin: 03/30/18 09:35 Dose: 10 mg - Labs Labs: 03/30/18 08:01 03/30/18 08:01 PT 15.0 SECONDS (9.4-12.5) H 03/29/18 07:14 INR 1.30 03/29/18 07:14 APTT 35.8 Seconds (25.1-36.5) 03/21/18 00:23 - Constitutional Appears: Non-toxic, No Acute Distress - Head Exam Head Exam: ATRAUMATIC - Eye Exam Eye Exam: EOMI, Normal appearance Pupil Exam: NORMAL ACCOMODATION - ENT Exam ENT Exam: Normal External Ear Exam - Neck Exam Neck Exam: Full ROM - Respiratory Exam Respiratory Exam: Clear to Ausculation Bilateral - Cardiovascular Exam Cardiovascular Exam: REGULAR RHYTHM - GI/Abdominal Exam GI & Abdominal Exam: Normal Bowel Sounds - Exam External exam: NORMAL EXTERNAL EXAM - Extremities Exam Additional comments: left foot in dressing - Neurological Exam Neurological Exam: Oriented x3 - Psychiatric Exam Psychiatric exam: Normal Affect - Skin Skin Exam: Petechiae Assessment and Plan (1) Anemia Status: Acute (2) COPD (chronic obstructive pulmonary disease) with acute bronchitis Status: Acute - Assessment and Plan (Free Text) Assessment: s/p left TMA IDDM CKD Plan: PLAN FOR SKIN GRAFT OF LEFT STUMP,MONITIR BLOOD SUGAR AND H/H
[2018-03-30] MEDS ORDERED: Darbepoetin Alfa 100 mcg/ml Inj SC ONE (20:45)
[2018-03-30] MEDS: Insulin Detemir 100 units/ml Vial (Levemir) SC SCH (22:18)
--- NOTE | 2018-03-30 23:59 | PN ---
DATE: 03/30/2018 SUBJECTIVE: The patient is currently seen lying comfortable in bed on 3R. She states they had been having problems with her left antecubital midline catheter. She continues to have in place a right chest wall Trialysis catheter. I did explain to her that from my standpoint, we do not foresee any further dialysis and that the dialysis catheter can be removed. OBJECTIVE: INTAKE/OUTPUT: Intake 1120, output 1550. VITAL SIGNS: Blood pressure 141/72, pulse of 89, temperature is 97.9, respiratory rate is 19. HEENT: Exam shows her to be normocephalic, atraumatic. Conjunctivae are pale. Sclerae are nonicteric. NECK: Supple. No neck vein distention. CHEST: Clear to auscultation and percussion. No rales, rhonchi, or wheezing. CARDIOVASCULAR: Shows a regular rate and rhythm with MR/TR. No S3. No S4. No rub. Positive Trialysis catheter, right chest wall. ABDOMEN: Soft. Bowel sounds normal. No rebound, guarding, or masses. EXTREMITIES: Show an ecchymotic left upper extremity with a midline catheter in the left antecubital fossa. The patient is status post a left TMA. There is a dressing over the site; this was not removed. She has diminished lower extremity pulses and no lower extremity pitting edema. LABORATORY DATA AND IMAGING: CBC: White blood cell count today was 8.9, hemoglobin stable at 8.4 with a platelet count of 434,000. Chemistry showed normal electrolytes. BUN 86 with a creatinine of 2.1. Her baseline BUN is in the upper 40s to low 50 range with a baseline creatinine in the low 2 range. Calcium was 9.1. Last phosphorus was 6.0 with a magnesium level of 1.3. Liver enzymes are normal. Microbiology: Wound cultures are positive for Staph aureus, MSSA, similar to the initial cultures. MEDICATIONS: The patient is currently on hydralazine, Clorpactin, Dilaudid p.r.n., DuoNeb, Ecotrin, Luvox, insulin, potassium, p.o. Lasix, Lipitor is on hold, Lopressor, meropenem, Pamelor, PhosLo, prednisone, and Zyloprim. ASSESSMENT: 1. Acute renal failure, superimposed on chronic kidney disease stage III. The patient required a short course of dialysis. Her creatinine was greater than 10. She was acidotic and hyperkalemic. She has currently passed the need for dialysis. Her BUN is slightly above her baseline levels, but her creatinine is down at baseline. From my standpoint, her Trialysis catheter can be removed, but the patient states they are having difficulties with her midline catheter, so for right now, the Trialysis catheter will likely stay in place. 2. Status post severe sepsis, methicillin-susceptible Staphylococcus aureus foot abscess with bacteremia. The patient is followed by Infectious Disease, being followed by Podiatry. She is status post a left transmetatarsal amputation, postoperative day #3. 3. History of anemia, in part secondary to chronic kidney disease, in part secondary to sepsis. The patient may receive transfusions on an as-needed basis. She does not require dialysis for transfusions. 4. History of left ventricular hypertrophy with mitral regurgitation/tricuspid regurgitation. Ejection fraction 60% with pulmonary hypertension, stable. 5. History of chronic obstructive pulmonary disease secondary to cigarettes in the past, stable. 6. History of secondary hyperparathyroidism. Last phosphorus level was 6.0. We need to follow this as her creatinine continues to improve. Perhaps, there could be a dose reduction in her binder therapy. 7. History of hypertension. Blood pressure controlled on present medical therapy. 8. History of diabetes. Glucose control is acceptable on long-acting and sliding scale insulin. 9. History of coronary artery disease, status post percutaneous transluminal coronary angioplasty and stent. 10. Hypomagnesemia. We will cautiously start the patient on oral magnesium oxide supplements. PLAN: 1. Again, once we have a competent access, the Trialysis catheter could be removed. There are no plans for further dialysis. 2. Continue binder therapy and monitor phosphorus levels. 3. Cautiously supplement phosphorus. 4. Continue local wound care. The patient states she is scheduled for a skin graft earlier this week in the area of the left TMA. 5. Continue Aranesp for her anemia. Her last dose was 100 mcg on 03/20/2018. 6. Iron saturations were 38%, so no IV iron is necessary. Brent Sheth MD
[2018-03-31] MEDS: Albuterol-Ipratrop 3 mg / 0.5 (3 ml) UD IH SCH ×6 (00:45→20:55)
--- NOTE | 2018-03-31 00:53 | PN ---
DATE: 03/30/2018 SUBJECTIVE: The patient is in bed, in no acute distress. PHYSICAL EXAMINATION VITAL SIGNS: Temperature is 97, blood pressure is 140/70, respiratory rate of 18, and heart rate of 100. HEENT: Unremarkable. NECK: Supple. LUNGS: Have decreased breath sounds. HEART: Normal S1, S2. ABDOMEN: Soft. LABORATORY EXAMINATION: Reveals a white count of 8.9, hemoglobin of 8. BUN of 86, creatinine of 2.1. Microbiology reveals Staph aureus has been noted. Review of orders reveals the patient to be on meropenem because of her CEFTAROLINE AND PENICILLIN ALLERGY. ASSESSMENT AND PLAN: A 57-year-old female with chronic obstructive pulmonary disease, obesity, fibromyalgia, recurrent urinary tract infection, restless legs syndrome, hypertension, chronic congestive heart failure, diabetes, diabetic neuropathy, endometriosis, Charcot's foot, cellulitis of lower extremity, admitted with septic shock secondary to Staphylococcus aureus bacteremia, which is sensitive Staphylococcus aureus, status post drainage of the abscess and status post transmetatarsal amputation with acute kidney injury on chronic kidney injury, currently on meropenem, and diabetic neuropathy, hypertensive, and the patient is scheduled for further OR. We will follow closely with you. Review of orders reveals the meropenem to be active. Terrance Kent MD
[2018-03-31 07:49] LABS: HEMOGLOBIN 8.5 g/dL (12.0-16.0); MEAN CELL VOLUME 92.2 fl (80.0-105.0); MEAN CORPUSCULAR HGB CONC 31.5 g/dl (31.0-37.0); MEAN PLATELET VOLUME 10.7 fl (7.0-11.0); RBC 2.93 10^6/uL (3.5-6.1); RED CELL DISTRIBUTION WIDTH 15.1 % (11.5-14.5); WHITE BLOOD COUNT 8.6 10^3/uL (4.5-11.0)
[2018-03-31 08:30] LABS: ALB/GLOB RATIO 0.8 (1.1-1.8); ALBUMIN 2.8 g/dL (3.0-4.8); CALCIUM 9.5 mg/dL (8.4-10.5)
[2018-03-31] MEDS: Insulin Lispro (humaLOG) MIX 75/25(10 ml) SC SCH ×2 (08:59→17:29)
[2018-03-31] MEDS: Insulin Lispro (humaLOG) MEDIUM Coverage SC SCH ×4 (08:59→22:13)
--- NOTE | 2018-03-31 09:19 | CP.PCM.PN ---
Subjective - Date & Time of Evaluation Date of Evaluation: 03/31/18 Time of Evaluation: 06:45 - Subjective Subjective: no distress, denies shortness of breath, complaining of left arm bruise where midline catheter in place Reason for consultation and follow up: Cardiac evaluation of coronary artery disease, post op follow up of I & D of left foot abscess, status post left transmetatarsal amputation Seen and examined by me and Dr. Anton Objective - Vital Signs/Intake and Output Vital Signs (last 24 hours): Temp Pulse Resp BP Pulse Ox 97.9 F 89 19 141/72 98 03/30/18 06:00 03/30/18 17:22 03/30/18 06:00 03/30/18 17:22 03/30/18 06:00 Intake and Output: 03/31/18 03/31/18 06:59 18:59 Intake Total 50 Output Total 600 Balance -550 - Medications Medications: Current Medications Albuterol/Ipratropium (Duoneb 3 Mg/0.5 Mg (3 Ml) Ud) 3 ml IH [id number] [facility] Last Admin: 03/31/18 08:29 Dose: 3 ml Albuterol/Ipratropium (Duoneb 3 Mg/0.5 Mg (3 Ml) Ud) 3 ml IH [id number] PRN PRN Reason: Shortness of Breath Last Admin: 03/26/18 17:16 Dose: 3 ml Allopurinol (Zyloprim) 100 mg PO DAILY [facility] Last Admin: 03/30/18 09:35 Dose: 100 mg Aspirin (Ecotrin) 81 mg PO DAILY [facility] Last Admin: 03/30/18 09:32 Dose: 81 mg Atorvastatin Calcium (Lipitor) 20 mg PO DAILY [facility] Last Admin: 03/18/18 09:50 Dose: 20 mg Calcium Acetate (Phoslo) 1,334 mg PO WM [facility] Last Admin: 03/30/18 17:22 Dose: 1,334 mg Furosemide (Lasix) 40 mg PO DAILY [facility] Last Admin: 03/30/18 09:33 Dose: 40 mg Hydralazine HCl (Apresoline) 25 mg PO BID [facility] Last Admin: 03/30/18 17:19 Dose: 25 mg Hydromorphone HCl (Dilaudid) 2 mg IVP Q4H PRN PRN Reason: Pain, severe (8-10) Last Admin: 03/30/18 22:18 Dose: 2 mg Meropenem/Sodium Chloride (Merrem Iv 500 Mg/Ns 50 Ml) 500 mg in 50 mls @ 100 mls/hr IVPB Q12 [facility]; Protocol Stop: 04/03/18 15:34 Last Admin: 03/30/18 22:19 Dose: 100 mls/hr Insulin Detemir (Levemir) 20 unit SC HS [facility] Last Admin: 03/30/18 22:18 Dose: 20 unit Insulin Human Lispro (Humalog Med) 0 units SC ACHS [facility] Last Admin: 03/31/18 08:59 Dose: 1 units Insulin Lispro Protam/Lispro Human (Humalog Mix 75/25) 18 units SC ACBD [facility] Last Admin: 03/31/18 08:59 Dose: 18 units Magnesium Oxide (Mag-Ox) 400 mg PO DAILY [facility] Metoprolol Tartrate (Lopressor) 50 mg PO BID [facility] Last Admin: 03/30/18 17:22 Dose: 50 mg Home Med - Fluvoxamine [Luvox] 25 Mg 25 mg PO BID [facility] Last Admin: 03/30/18 17:20 Dose: Not Given Oxychlorosene Sodium (Clorpactin Wcs-90) 2 gm TOP Q12 [facility] Last Admin: 03/30/18 22:38 Dose: Not Given Oxychlorosene Sodium (Clorpactin Wcs-90) 2 gm TOP DAILY [facility] Last Admin: 03/30/18 09:32 Dose: Not Given Polysaccharide Iron Complex (Ferrex-150) 150 mg PO DAILY [facility] Potassium Chloride (Klor-Con 10) 20 meq PO BRK [facility] Last Admin: 03/30/18 09:33 Dose: 20 meq Potassium Chloride (K-Dur 20 Meq Er Tab) 20 meq PO BRK [facility] Last Admin: 03/30/18 09:33 Dose: 20 meq Prednisone (Prednisone Tab) 10 mg PO DAILY [facility] Last Admin: 03/30/18 09:35 Dose: 10 mg - Labs Labs: 03/31/18 06:50 03/31/18 06:50 PT 15.0 SECONDS (9.4-12.5) H 03/29/18 07:14 INR 1.30 03/29/18 07:14 APTT 35.8 Seconds (25.1-36.5) 11/29/18 00:23 - Constitutional Appears: Non-toxic, No Acute Distress - Head Exam Head Exam: NORMAL INSPECTION, NORMOCEPHALIC - Eye Exam Eye Exam: Normal appearance Pupil Exam: NORMAL ACCOMODATION - ENT Exam ENT Exam: Mucous Membranes Moist, Normal Exam - Respiratory Exam Respiratory Exam: Clear to Ausculation Bilateral, NORMAL BREATHING PATTERN - Cardiovascular Exam Cardiovascular Exam: +S1, +S2 Additional comments: right IJ trialysis - GI/Abdominal Exam GI & Abdominal Exam: Soft, Normal Bowel Sounds - Extremities Exam Additional comments: left foot dressing intact left arm midline catheter bruises almost half of left arm tender to touch - Neurological Exam Neurological Exam: Alert, Awake, Oriented x3 - Psychiatric Exam Psychiatric exam: Normal Affect, Normal Mood - Skin Skin Exam: Dry, Normal Color, Warm Assessment and Plan - Assessment and Plan (Free Text) Assessment: A 57 year old female who came in to the ER due to left foot swelling. History of coronary artery disease post stents on 02/2013. COPD, obesity, fibromyalgia, HTN, CHF, DM, Diabetic neuropathy, Charcot foot, kidney disease, endometriosis, cellulitis of lower extremities. ESRD on hemodialysis. Had I & D of left foot. Wound positive for Staphyloccoccus aureaus. On IV antibiotics, Post blood trans fusion with hemodialysis for low H/H.elevated INR from septic shock, she was not on coumadin before. Plavix discontinued. On Hyperbaric treatment for left foot wound. Discontinued Plavix and Aspirin.Being followed up by Podiatry. Vitamin K given for elevated INR. Low H/H post op, transfused 1 unit of PRBC. Status post left transmetatarsal amputation POD#2. Repeat H/H .3, transfused another unit of PRBC, Hematology on consult to manage elevated INR. Off ARB and MARYLU inhibitor due to renal insufficiency. Off hemodialysis right now, will restart ARB and MARYLU inhibitor once renal status stabilized.Cleared from cardiac standpoint with moderate risk for possible skin grafting of the left foot on Sunday. Plan: For possible skin grafting of left foot on Sunday Status post left transmetatarsal amputation POD#4 H/H Replenish magnesium Cleared for procedure from cardiac standpoint Denies chest pain or shortness of breath,No distress, Blood pressure controlled Cardiac status stable Heart rate controlled Lipitor 20 mg daily,Lopressor 50 mg BID, Hydralazine 25 mg BID Potassium Chloride 20 meq daily Continue antibiotics as per ID Continue current treatment Continue current medications Left arm bruises with midline catheter, tender to touch and unable to use due to site pain when infusing,Ultrasound of left arm pending report , PICC team to evaluate site Chart reviewed Will follow up Plan and treatment discussed with
[2018-03-31] MEDS: Oxychlorosene Topical 2 gm Packet TOP SCH ×3 (09:28→22:16)
[2018-03-31] MEDS: Iron Complex Polysacch 150mg Cap PO SCH (09:29)
[2018-03-31] MEDS: FLUVOXAMINE 25 MG PO SCH ×2 (09:30→17:28)
[2018-03-31] MEDS: Potassium Chloride 20 mEq ER Tab PO SCH (09:30)
[2018-03-31] MEDS: Potassium Chloride 10 mEq ER Tab PO SCH (09:30)
[2018-03-31] MEDS: Magnesium Oxide 400 mg Tab UD PO SCH (09:31)
[2018-03-31] MEDS: MEROPENEM 500 MG in NS 500 MG/50 ML BAG IVPB SCH ×2 (09:32→22:13)
[2018-03-31] MEDS ORDERED: Darbepoetin Alfa 60 mcg/ml Inj SC ONE (10:00)
--- NOTE | 2018-03-31 10:40 | CP.PCM.PN ---
<DoyleKalinakate - Last Filed: 03/31/18 10:37> Subjective - Date & Time of Evaluation Date of Evaluation: 03/31/18 Time of Evaluation: 10:37 - Subjective Subjective: Podiatry progress note for Dr. Bills 57 y/o F patient seen and evaluated 4 days S/P TMA left foot secondary to diabetic foot abscess, necrotizing fasciitis and gangrenous changes to the left foot. Reports that she walked on the other foot yesterday more than she usually does. Patient denies any other pedal complaints at this time. Patient states that she has no pain to her left foot. Patient denies any postoperative N/V/F/C/CP. Objective - Vital Signs/Intake and Output Vital Signs (last 24 hours): Temp Pulse Resp BP Pulse Ox 97.9 F 102 H 19 147/82 98 03/30/18 06:00 03/31/18 09:31 03/30/18 06:00 03/31/18 09:31 03/30/18 06:00 Intake and Output: 03/31/18 03/31/18 06:59 18:59 Intake Total 50 Output Total 600 Balance -550 - Medications Medications: Current Medications Albuterol/Ipratropium (Duoneb 3 Mg/0.5 Mg (3 Ml) Ud) 3 ml IH [id number] [facility] Last Admin: 03/31/18 08:29 Dose: 3 ml Albuterol/Ipratropium (Duoneb 3 Mg/0.5 Mg (3 Ml) Ud) 3 ml IH [id number] PRN PRN Reason: Shortness of Breath Last Admin: 03/26/18 17:16 Dose: 3 ml Allopurinol (Zyloprim) 100 mg PO DAILY [facility] Last Admin: 03/31/18 09:34 Dose: 100 mg Aspirin (Ecotrin) 81 mg PO DAILY [facility] Last Admin: 03/31/18 09:29 Dose: 81 mg Atorvastatin Calcium (Lipitor) 20 mg PO DAILY [facility] Last Admin: 03/18/18 09:50 Dose: 20 mg Calcium Acetate (Phoslo) 1,334 mg PO WM [facility] Last Admin: 03/31/18 09:33 Dose: 1,334 mg Furosemide (Lasix) 40 mg PO DAILY [facility] Last Admin: 03/31/18 09:30 Dose: 40 mg Hydralazine HCl (Apresoline) 25 mg PO BID [facility] Last Admin: 03/31/18 09:28 Dose: 25 mg Meropenem/Sodium Chloride (Merrem Iv 500 Mg/Ns 50 Ml) 500 mg in 50 mls @ 100 mls/hr IVPB Q12 [facility]; Protocol Stop: 04/03/18 15:34 Last Admin: 03/31/18 09:32 Dose: 100 mls/hr Insulin Detemir (Levemir) 20 unit SC HS [facility] Last Admin: 03/30/18 22:18 Dose: 20 unit Insulin Human Lispro (Humalog Med) 0 units SC ACHS [facility] Last Admin: 03/31/18 08:59 Dose: 1 units Insulin Lispro Protam/Lispro Human (Humalog Mix 75/25) 18 units SC ACBD [facility] Last Admin: 03/31/18 08:59 Dose: 18 units Magnesium Oxide (Mag-Ox) 400 mg PO DAILY [facility] Last Admin: 03/31/18 09:31 Dose: 400 mg Metoprolol Tartrate (Lopressor) 50 mg PO BID [facility] Last Admin: 03/31/18 09:31 Dose: 50 mg Home Med - Fluvoxamine [Luvox] 25 Mg 25 mg PO BID [facility] Last Admin: 03/31/18 09:30 Dose: Not Given Oxychlorosene Sodium (Clorpactin Wcs-90) 2 gm TOP Q12 [facility] Last Admin: 03/31/18 09:28 Dose: Not Given Oxychlorosene Sodium (Clorpactin Wcs-90) 2 gm TOP DAILY [facility] Last Admin: 03/31/18 09:29 Dose: Not Given Polysaccharide Iron Complex (Ferrex-150) 150 mg PO DAILY [facility] Last Admin: 03/31/18 09:29 Dose: 150 mg Potassium Chloride (Klor-Con 10) 20 meq PO BRK [facility] Last Admin: 03/31/18 09:30 Dose: 20 meq Potassium Chloride (K-Dur 20 Meq Er Tab) 20 meq PO BRK [facility] Last Admin: 03/31/18 09:30 Dose: 20 meq Prednisone (Prednisone Tab) 10 mg PO DAILY [facility] Last Admin: 03/31/18 09:33 Dose: 10 mg - Labs Labs: 03/31/18 06:50 03/31/18 06:50 PT 15.0 SECONDS (9.4-12.5) H 03/29/18 07:14 INR 1.30 03/29/18 07:14 APTT 35.8 Seconds (25.1-36.5) 03/21/18 00:23 - Constitutional Appears: Well, Non-toxic, No Acute Distress - Extremities Exam Additional comments: Bilateral Lower Extremity Exam: VASC: DP/PT 2/4 b/l, Temp gradient warm to warm on the B/L from proximal to distal. Erythema noted proximal to the TMA site up to the ankle. NEURO: Gross and protective sensations are diminished B/L. DERM: TMA amputation site looks clean with no purulent drainage and no bleeding, Surgicell was in place. Tissues at the stump site looks viable. Erythema noted proximal to the TMA site up to the ankle with patch of necrotic black skin at the level of the anterior ankle. Right foot, stable ulceration noted to the tip of the 2nd digit MSK: No pain on palpating the left foot amputation site and the periulcerative area of the Right foot. Left ankle ROM is WNL. Muscle power intact 5/5 to all groups. - Neurological Exam Neurological Exam: Alert, Awake, Oriented x3 - Psychiatric Exam Psychiatric exam: Normal Affect, Normal Mood Assessment and Plan - Assessment and Plan (Free Text) Assessment: 57 y/o F patient seen and evaluated 4 days S/P TMA left foot secondary to diabetic foot abscess, necrotizing fasciitis and gangrenous changes to the left foot. Plan: Patient seen and evaluated Discussed plan with attending Dr. Little Charts, labs and vitals reviewed: Afebrile, WBC 8.6, Hb 8.5 Patient general condition is good postoperative Dressing of the surgical site using well padded dressing, (Gauze, ABD and kerlix) and Kishor bandage, Surgicell left in place. Patient is planned to go to the OR Sunday04/01/2018 for graft application and wound VAC application Podiatry will carefully continue to follow up the patient while in house. <Rodríguez Little - Last Filed: 04/01/18 10:21> Objective - Vital Signs/Intake and Output Vital Signs (last 24 hours): Temp Pulse Resp BP Pulse Ox 98.3 F 90 19 122/68 98 04/01/18 08:08 04/01/18 08:08 04/01/18 08:08 04/01/18 08:08 04/01/18 08:08 Intake and Output: 04/01/18 04/01/18 06:59 18:59 Intake Total 240 Output Total 1600 Balance -1360 - Medications Medications: Current Medications Albuterol/Ipratropium (Duoneb 3 Mg/0.5 Mg (3 Ml) Ud) 3 ml IH [id number] [facility] Last Admin: 04/01/18 08:28 Dose: 3 ml Albuterol/Ipratropium (Duoneb 3 Mg/0.5 Mg (3 Ml) Ud) 3 ml IH [id number] PRN PRN Reason: Shortness of Breath Last Admin: 03/26/18 17:16 Dose: 3 ml Allopurinol (Zyloprim) 100 mg PO DAILY [facility] Last Admin: 03/31/18 09:34 Dose: 100 mg Aspirin (Ecotrin) 81 mg PO DAILY [facility] Last Admin: 03/31/18 09:29 Dose: 81 mg Atorvastatin Calcium (Lipitor) 20 mg PO DAILY [facility] Last Admin: 03/18/18 09:50 Dose: 20 mg Calcium Acetate (Phoslo) 1,334 mg PO WM [facility] Last Admin: 03/31/18 17:31 Dose: 1,334 mg Furosemide (Lasix) 40 mg PO DAILY [facility] Last Admin: 03/31/18 09:30 Dose: 40 mg Hydralazine HCl (Apresoline) 25 mg PO BID [facility] Last Admin: 03/31/18 17:28 Dose: 25 mg Hydromorphone HCl (Dilaudid) 2 mg IVP Q4H PRN PRN Reason: Pain, severe (8-10) Last Admin: 03/31/18 22:15 Dose: 2 mg Meropenem/Sodium Chloride (Merrem Iv 500 Mg/Ns 50 Ml) 500 mg in 50 mls @ 100 mls/hr IVPB Q12 [facility]; Protocol Stop: 04/03/18 15:34 Last Admin: 03/31/18 22:13 Dose: 100 mls/hr Insulin Detemir (Levemir) 20 unit SC HS [facility] Last Admin: 03/31/18 22:12 Dose: 20 unit Insulin Human Lispro (Humalog Med) 0 units SC ACHS [facility] Last Admin: 03/31/18 22:13 Dose: Not Given Insulin Lispro Protam/Lispro Human (Humalog Mix 75/25) 18 units SC ACBD [facility] Last Admin: 03/31/18 17:29 Dose: 18 units Magnesium Oxide (Mag-Ox) 400 mg PO DAILY [facility] Last Admin: 03/31/18 09:31 Dose: 400 mg Metoprolol Tartrate (Lopressor) 50 mg PO BID [facility] Last Admin: 03/31/18 17:30 Dose: 50 mg Home Med - Fluvoxamine [Luvox] 25 Mg 25 mg PO BID [facility] Last Admin: 03/31/18 17:28 Dose: Not Given Nortriptyline HCl (Pamelor) 50 mg PO HS [facility] Last Admin: 03/31/18 22:14 Dose: 50 mg Oxychlorosene Sodium (Clorpactin Wcs-90) 2 gm TOP DAILY [facility] Last Admin: 03/31/18 09:29 Dose: Not Given Polysaccharide Iron Complex (Ferrex-150) 150 mg PO DAILY [facility] Last Admin: 03/31/18 09:29 Dose: 150 mg Potassium Chloride (Klor-Con 10) 20 meq PO BRK [facility] Last Admin: 03/31/18 09:30 Dose: 20 meq Potassium Chloride (K-Dur 20 Meq Er Tab) 20 meq PO BRK [facility] Last Admin: 03/31/18 09:30 Dose: 20 meq Prednisone (Prednisone Tab) 10 mg PO DAILY [facility] Last Admin: 03/31/18 09:33 Dose: 10 mg - Labs Labs: 03/31/18 06:50 03/31/18 06:50 PT 15.0 SECONDS (9.4-12.5) H 03/29/18 07:14 INR 1.30 03/29/18 07:14 APTT 35.8 Seconds (25.1-36.5) 03/21/18 00:23 Attending/Attestation - Attestation I have personally seen and examined this patient.: Yes I have fully participated in the care of the patient.: Yes I have reviewed all pertinent clinical information, including history, physical exam and plan: Yes
--- NOTE | 2018-03-31 11:36 | PN ---
DATE: 03/31/2018 FOLLOWUP NOTE SUBJECTIVE: Comfortable in bed, in no acute distress. No events overnight. She is on hyperbaric treatment. There is oozing from the surgical site. She is scheduled for skin graft on Sunday. Hemoglobin, hematocrit stable. Creatinine elevated at 2.4. REVIEW OF SYSTEMS: As per HPI. Rest of 12-point review of systems reviewed and negative. PHYSICAL EXAMINATION GENERAL: Awake, alert, oriented, comfortable in bed. VITAL SIGNS: Stable. Temperature 98.7, heart rate 80 per minute, respiratory rate 15 per minute, blood pressure 120/60. HEENT: Pallor positive. NECK: No lymphadenopathy. CHEST: Air entry present and equal bilaterally. No added sound. CARDIOVASCULAR: S1, S2 normal. No murmur, no gallop. ABDOMEN: Soft, nontender. No hepatosplenomegaly. Obese. EXTREMITIES: Right foot dressing present. NEUROLOGIC: Awake, alert, oriented x3. LABORATORY DATA: White count 8.6, hemoglobin 8.5, hematocrit 27, platelet 430. Sodium 139, potassium 4.9, creatinine 1.4. ASSESSMENT: 1. Status post Staphylococcus aureus bacteremia. 2. Left transmetatarsal amputation. 3. Diabetes mellitus, insulin dependent. 4. Chronic anemia. 5. Acute renal failure. 6. Diabetic neuropathy. 7. Chronic obstructive pulmonary disease. PLAN: She is scheduled for skin graft on Sunday. Hemoglobin, hematocrit stable. Platelet count stable. Creatinine improved to 1.7. Continue current medications; aspirin, Lipitor, Lasix, hydralazine 25 mg by mouth two times a day. Currently, on insulin, meropenem IV, oral iron. Nikole Yadav MD
--- NOTE | 2018-03-31 12:54 | US ---
PROCEDURE: Left upper extremity venous ultrasound HISTORY: Arm pain and swelling. Evaluate for deep venous thrombosis. PHYSICIAN(S): Justin Gonzales MD. FINDINGS: The visualized leftinternal jugular vein is sonographically normal and compressible. No evidence of obstruction or thrombus is seen. The visualized segments of the left subclavian vein are patent with normal waveforms. No sonographic evidence of obstruction or thrombosis is seen. The visualized deep venous system of the proximal leftupper extremity is sonographically normal and compressible. IMPRESSION: 1. No sonographic evidence for deep venous thrombosis in the visualized segments of the left upper extremity.
[2018-03-31] MEDS: HYDROmorphone 2 mg/ml ISec IVP PRN ×2 (13:32→22:15)
--- NOTE | 2018-03-31 15:24 | PN ---
DATE: 03/31/2018 SUBJECTIVE: The patient is in bed, in no acute distress, nontoxic. PHYSICAL EXAMINATION VITAL SIGNS: Temperature is 98, blood pressure is 140/80, respiratory rate of 16. HEENT: Unremarkable. NECK: Supple. LUNGS: Decreased breath sounds. HEART: Normal S1, S2. ABDOMEN: Soft. LABORATORY DATA: Reveals white count of 8.6, hemoglobin of 8. Chemistries are noted. BUN of 72, creatinine of 1.7. Urinalysis is noted. Serology is reviewed. Microbiology reveals Staphylococcus aureus. ASSESSMENT AND PLAN: A 57-year-old female with chronic obstructive lung disease, obesity, fibromyalgia, recurrent urinary tract infections, restless legs syndrome, hypertension, congestive heart failure, diabetes, diabetic neuropathy, endometriosis, Charcot's foot, who is admitted with septic shock secondary to sensitive Staphylococcus aureus bacteremia with a sensitive Staphylococcus aureus from the foot, status post drainage of the abscess and Charcot's foot, status post transmetatarsal amputation with acute kidney injury on top of chronic kidney injury, currently on meropenem in a patient with diabetic neuropathy, hypertension, and possible further operating room. Review of orders reveals the patient to be on meropenem in a patient who is ALLERGIC TO CEFTAROLINE. The patient is also on prednisone and will need prolonged antibiotic therapy. Terrance Kent MD
[2018-03-31] MEDS: Insulin Detemir 100 units/ml Vial (Levemir) SC SCH (22:12)
[2018-04-01] MEDS: Albuterol-Ipratrop 3 mg / 0.5 (3 ml) UD IH SCH ×6 (00:55→21:25)
--- NOTE | 2018-04-01 07:32 | CP.PCM.PCO ---
Physician Communication Note - Physician Communication Note Physician Communication Note: Please call PICC team to evaluate Left arm (midline catheter)
--- NOTE | 2018-04-01 09:05 | CP.PCM.PN ---
<Larry Thomas - Last Filed: 04/01/18 11:59> Subjective - Date & Time of Evaluation Date of Evaluation: 04/01/18 Time of Evaluation: 09:01 - Subjective Subjective: Infectious disease progress note - Edilberto Thomas PGY3 Patient seen and examined at bedside. No acute overnight events or new complaints reported. She is s/p TMA and is scheduled to return to the OR today for wound vac/graft placement. Denies cp, palpitations, SOB. Objective - Vital Signs/Intake and Output Vital Signs (last 24 hours): Temp Pulse Resp BP Pulse Ox 98.3 F 90 19 122/68 98 04/01/18 08:08 04/01/18 08:08 04/01/18 08:08 04/01/18 08:08 04/01/18 08:08 Intake and Output: 04/01/18 04/01/18 06:59 18:59 Intake Total 240 Output Total 1600 Balance -1360 - Medications Medications: Current Medications Albuterol/Ipratropium (Duoneb 3 Mg/0.5 Mg (3 Ml) Ud) 3 ml IH [id number] [facility] Last Admin: 04/01/18 08:28 Dose: 3 ml Albuterol/Ipratropium (Duoneb 3 Mg/0.5 Mg (3 Ml) Ud) 3 ml IH [id number] PRN PRN Reason: Shortness of Breath Last Admin: 03/26/18 17:16 Dose: 3 ml Allopurinol (Zyloprim) 100 mg PO DAILY [facility] Last Admin: 03/31/18 09:34 Dose: 100 mg Aspirin (Ecotrin) 81 mg PO DAILY [facility] Last Admin: 03/31/18 09:29 Dose: 81 mg Atorvastatin Calcium (Lipitor) 20 mg PO DAILY [facility] Last Admin: 03/18/18 09:50 Dose: 20 mg Calcium Acetate (Phoslo) 1,334 mg PO WM [facility] Last Admin: 03/31/18 17:31 Dose: 1,334 mg Furosemide (Lasix) 40 mg PO DAILY [facility] Last Admin: 03/31/18 09:30 Dose: 40 mg Hydralazine HCl (Apresoline) 25 mg PO BID [facility] Last Admin: 03/31/18 17:28 Dose: 25 mg Hydromorphone HCl (Dilaudid) 2 mg IVP Q4H PRN PRN Reason: Pain, severe (8-10) Last Admin: 03/31/18 22:15 Dose: 2 mg Meropenem/Sodium Chloride (Merrem Iv 500 Mg/Ns 50 Ml) 500 mg in 50 mls @ 100 mls/hr IVPB Q12 [facility]; Protocol Stop: 04/03/18 15:34 Last Admin: 03/31/18 22:13 Dose: 100 mls/hr Insulin Detemir (Levemir) 20 unit SC HS [facility] Last Admin: 03/31/18 22:12 Dose: 20 unit Insulin Human Lispro (Humalog Med) 0 units SC ACHS [facility] Last Admin: 03/31/18 22:13 Dose: Not Given Insulin Lispro Protam/Lispro Human (Humalog Mix 75/25) 18 units SC ACBD [facility] Last Admin: 03/31/18 17:29 Dose: 18 units Magnesium Oxide (Mag-Ox) 400 mg PO DAILY [facility] Last Admin: 03/31/18 09:31 Dose: 400 mg Metoprolol Tartrate (Lopressor) 50 mg PO BID [facility] Last Admin: 03/31/18 17:30 Dose: 50 mg Home Med - Fluvoxamine [Luvox] 25 Mg 25 mg PO BID [facility] Last Admin: 03/31/18 17:28 Dose: Not Given Nortriptyline HCl (Pamelor) 50 mg PO HS [facility] Last Admin: 03/31/18 22:14 Dose: 50 mg Oxychlorosene Sodium (Clorpactin Wcs-90) 2 gm TOP DAILY [facility] Last Admin: 03/31/18 09:29 Dose: Not Given Polysaccharide Iron Complex (Ferrex-150) 150 mg PO DAILY [facility] Last Admin: 03/31/18 09:29 Dose: 150 mg Potassium Chloride (Klor-Con 10) 20 meq PO BRK [facility] Last Admin: 03/31/18 09:30 Dose: 20 meq Potassium Chloride (K-Dur 20 Meq Er Tab) 20 meq PO BRK [facility] Last Admin: 03/31/18 09:30 Dose: 20 meq Prednisone (Prednisone Tab) 10 mg PO DAILY [facility] Last Admin: 03/31/18 09:33 Dose: 10 mg - Labs Labs: 03/31/18 06:50 03/31/18 06:50 PT 15.0 SECONDS (9.4-12.5) H 03/29/18 07:14 INR 1.30 03/29/18 07:14 APTT 35.8 Seconds (25.1-36.5) 03/21/18 00:23 - Constitutional Appears: No Acute Distress - Head Exam Head Exam: ATRAUMATIC, NORMAL INSPECTION, NORMOCEPHALIC - Eye Exam Eye Exam: EOMI, PERRL - ENT Exam ENT Exam: Mucous Membranes Moist - Respiratory Exam Respiratory Exam: absent: Rales, Rhonchi, Wheezes - Cardiovascular Exam Cardiovascular Exam: RRR, +S1, +S2. absent: Gallop, JVD, Rubs - GI/Abdominal Exam GI & Abdominal Exam: Soft. absent: Distended, Firm, Guarding, Rigid, Tenderness, Rebound - Neurological Exam Neurological Exam: Alert, Awake, Oriented x3 - Psychiatric Exam Psychiatric exam: Normal Affect, Normal Mood Assessment and Plan - Assessment and Plan (Free Text) Plan: 57yo female with history of COPD, obesity, fibromyalgia, recurrent UTI, restless leg syndrome, HTN, chronic CHF, DM, diabetic neuropathy, CKD, endometriosis, charcot foot and cellulitis of LE admitted for septic shock secondary to staph aureus bacteremia and staph aureus foot abscess s/p I&D in the setting of acute kidney injury. 1. resolved septic shock secondary to staph aureus bacteremia 2. Staph aureus left foot abscess/gangrene s/p I&D and s/p TMA 3. JAMIL on CKD, resolving 4. COPD, chronic 5. CHF, chronic 6. Normocytic anemia 7. Hx of hypertension 8. Diabetes mellitus type 2 9. Diabetic neuropathy -Patient is s/p left TMA by podiatry due to worsening gangrenous changes -She is scheduled to return to the OR on 04/01/18 for graft/wound vac placement -OR wound pathology reviewed; acute osteomyelitis with margins clear of inflammation -She presently requires 2-3 weeks of meropenem given margins post amputation -Presently undergoing hyperbaric oxygen treatment -MRI negative for osteomyelitis -Echocardiogram revealed no apparent thrombus; LVEF 59%; see full report -Continue current management as per medicine/podiatry teams Patient seen and case discussed/reviewed with attending, Dr. Peacock <Jan Peacock - Last Filed: 04/01/18 19:27> Objective - Vital Signs/Intake and Output Vital Signs (last 24 hours): Temp Pulse Resp BP Pulse Ox 97.9 F 104 H 17 138/80 99 04/01/18 18:50 04/01/18 18:50 04/01/18 18:50 04/01/18 18:50 04/01/18 18:50 Intake and Output: 04/01/18 04/02/18 18:59 06:59 Intake Total 840 Output Total 300 Balance 540 - Medications Medications: Current Medications Albuterol/Ipratropium (Duoneb 3 Mg/0.5 Mg (3 Ml) Ud) 3 ml IH [id number] Last Admin: 04/01/18 16:04 Dose: Not Given Albuterol/Ipratropium (Duoneb 3 Mg/0.5 Mg (3 Ml) Ud) 3 ml IH [id number] PRN PRN Reason: Shortness of Breath Last Admin: 03/26/18 17:16 Dose: 3 ml Allopurinol (Zyloprim) 100 mg PO DAILY [facility] Last Admin: 04/01/18 11:51 Dose: 100 mg Aspirin (Ecotrin) 81 mg PO DAILY [facility] Last Admin: 04/01/18 11:44 Dose: 81 mg Atorvastatin Calcium (Lipitor) 20 mg PO DAILY [facility] Last Admin: 03/18/18 09:50 Dose: 20 mg Calcium Acetate (Phoslo) 1,334 mg PO WM [facility] Last Admin: 04/01/18 19:03 Dose: Not Given Furosemide (Lasix) 40 mg PO DAILY [facility] Last Admin: 04/01/18 11:48 Dose: 40 mg Hydralazine HCl (Apresoline) 25 mg PO BID [facility] Last Admin: 04/01/18 19:02 Dose: Not Given Hydromorphone HCl (Dilaudid) 2 mg IVP Q4H PRN PRN Reason: Pain, severe (8-10) Last Admin: 04/01/18 11:43 Dose: 2 mg Meropenem/Sodium Chloride (Merrem Iv 500 Mg/Ns 50 Ml) 500 mg in 50 mls @ 100 mls/hr IVPB Q12 [facility]; Protocol Stop: 04/03/18 15:34 Last Admin: 04/01/18 14:33 Dose: 100 mls/hr Sodium Chloride (Sodium Chloride 0.9%) 1,000 mls @ 40 mls/hr IV .Q24H [facility] Stop: 04/01/18 20:16 Insulin Detemir (Levemir) 20 unit SC HS [facility] Last Admin: 03/31/18 22:12 Dose: 20 unit Insulin Human Lispro (Humalog Med) 0 units SC ACHS [facility] Last Admin: 04/01/18 19:02 Dose: Not Given Insulin Lispro Protam/Lispro Human (Humalog Mix 75/25) 18 units SC ACBD [facility] Last Admin: 04/01/18 19:02 Dose: Not Given Magnesium Oxide (Mag-Ox) 400 mg PO DAILY [facility] Last Admin: 04/01/18 11:50 Dose: 400 mg Metoprolol Tartrate (Lopressor) 50 mg PO BID [facility] Last Admin: 04/01/18 19:03 Dose: Not Given Home Med - Fluvoxamine [Luvox] 25 Mg 25 mg PO BID [facility] Last Admin: 04/01/18 19:02 Dose: Not Given Nortriptyline HCl (Pamelor) 50 mg PO [facility] Last Admin: 03/31/18 22:14 Dose: 50 mg Ondansetron HCl (Zofran Inj) 4 mg IVP ONCE PRN PRN Reason: Nausea/Vomiting Oxychlorosene Sodium (Clorpactin Wcs-90) 2 gm TOP DAILY [facility] Last Admin: 04/01/18 11:43 Dose: Not Given Polysaccharide Iron Complex (Ferrex-150) 150 mg PO DAILY [facility] Last Admin: 04/01/18 11:44 Dose: 150 mg Potassium Chloride (Klor-Con 10) 20 meq PO BRK [facility] Last Admin: 04/01/18 11:47 Dose: 20 meq Potassium Chloride (K-Dur 20 Meq Er Tab) 20 meq PO BRK [facility] Last Admin: 04/01/18 11:47 Dose: 20 meq - Labs Labs: 04/01/18 12:30 04/01/18 12:30 PT 15.1 SECONDS (9.4-12.5) H 04/01/18 12:30 INR 1.31 04/01/18 12:30 APTT 35.8 Seconds (25.1-36.5) 03/21/18 00:23 Assessment and Plan - Assessment and Plan (Free Text) Plan: Infectious diseases Attending Physician Attestation Patient seen and examined, discussed with medical hospital sales. I have reviewed the patient's history of present illness, past medical, social, personal and family histories, pertinent physical exam findings, course so far in this hospital admission, pertinent laboratory and imaging results. I agree with the above findings, assessment and plan. In addition, continue Merrem for this patient with sepsis from MSSA bacteremia from left foot severe skin and skin structure infection with osteomyelitis S/P TMA. For skin grafting today. Will continue to monitor clinically.
--- NOTE | 2018-04-01 09:26 | PN ---
DATE: 03/31/2018 LOCATION: The patient in room 373, bed 3. The patient is a known case of coronary artery disease, presently cardiac status stable. The patient needs skin grafting of the left foot, probably on Sunday. Status post left transmetatarsal amputation, postop day 4. Detailed note has been already written by Liz Jiménez. The patient has been cleared from cardiac point of view at moderate risk for skin graft procedure. We will continue present therapy as mentioned in the note by Liz Jiménez, and we will continue to follow. Stephanie Hartley MD
[2018-04-01] MEDS: HYDROmorphone 2 mg/ml ISec IVP PRN ×2 (11:43→21:49)
[2018-04-01] MEDS: Oxychlorosene Topical 2 gm Packet TOP SCH (11:43)
[2018-04-01] MEDS: Insulin Lispro (humaLOG) MEDIUM Coverage SC SCH ×4 (11:44→21:51)
[2018-04-01] MEDS: Iron Complex Polysacch 150mg Cap PO SCH (11:44)
[2018-04-01] MEDS: FLUVOXAMINE 25 MG PO SCH ×2 (11:44→19:02)
[2018-04-01] MEDS: Insulin Lispro (humaLOG) MIX 75/25(10 ml) SC SCH ×2 (11:45→19:02)
[2018-04-01] MEDS: Potassium Chloride 10 mEq ER Tab PO SCH (11:47)
[2018-04-01] MEDS: Potassium Chloride 20 mEq ER Tab PO SCH (11:47)
[2018-04-01] MEDS: Magnesium Oxide 400 mg Tab UD PO SCH (11:50)
[2018-04-01 12:36] LABS: MEAN CORPUSCULAR HEMOGLOBIN 28.8 pg (25.0-35.0); MEAN CORPUSCULAR HGB CONC 31.4 g/dl (31.0-37.0); MEAN PLATELET VOLUME 10.5 fl (7.0-11.0); RBC 3.12 10^6/uL (3.5-6.1); RED CELL DISTRIBUTION WIDTH 15.1 % (11.5-14.5); WHITE BLOOD COUNT 9.3 10^3/uL (4.5-11.0)
[2018-04-01 12:42] LABS: INR 1.31; PROTHROMBIN TIME 15.1 SECONDS (9.4-12.5)
[2018-04-01 12:48] LABS: ALB/GLOB RATIO 0.8 (1.1-1.8); ALBUMIN 3.1 g/dL (3.0-4.8); CALCIUM 9.5 mg/dL (8.4-10.5)
--- NOTE | 2018-04-01 12:56 | PN ---
DATE: 04/01/2018 SUBJECTIVE: The patient is seen en route to [facility]. PHYSICAL EXAMINATION: GENERAL: A middle-aged lady lying in bed. VITAL SIGNS: Blood pressure 132/68, heart rate 90, respiratory rate 18, temperature 98.3. NECK: Supple, no JVD. LUNGS: Bilateral equal entry. EXTREMITIES: No lower extremity edema. INTAKE AND OUTPUT: 2460/1600 LABORATORY DATA: WBC 8.6, hemoglobin 8.5, hematocrit 27, platelets 430. No chemistry today. Wound culture from 03/27/2018 showed Staph aureus. CURRENT MEDICATIONS: Apresoline, Clorpactin, Dilaudid, DuoNeb, Ecotrin, Ferrex, Luvox, insulin, potassium 20 mEq, Lasix 40 p.o. daily, Levemir, Lopressor 50 b.i.d., meropenem 500 every 12 hours, Pamelor, prednisone, Zyloprim. ASSESSMENT: 1. Acute kidney injury superimposed on chronic kidney disease stage III, resolved acute kidney injury. 2. Status post severe sepsis, Staph bacteremia. 3. Staph wound infection, abscess. 4. Asr-dlwhlby-maofsypau diabetes mellitus. 5. Hypertension. 6. Cardiomyopathy. 7. Peripheral arterial disease. PLAN: 1. No further indication for dialysis, remove catheter today. 2. Continue low-dose Lasix. 3. Continue potassium supplementation. 4. Continue antibiotics as per ID recommendations. 5. Monitor fingersticks and continue insulin coverage. 6. Continue phosphate binders. 7. Check labs in a.m. Elva Frank MD MTDD
[2018-04-01] MEDS: MEROPENEM 500 MG in NS 500 MG/50 ML BAG IVPB SCH ×2 (14:33→21:51)
[2018-04-01] MEDS ORDERED: HYDROmorphone 0.5 mg/0.5 ml ISec IVP PRN (16:08)
[2018-04-01] MEDS ORDERED: Sodium Chloride 0.9% 1,000 ML IV SCH ×2 (16:15→18:15)
[2018-04-01] MEDS ORDERED: Lidocaine 2% Inj (20ml) ONE ×2 (16:43)
[2018-04-01] MEDS ORDERED: Propofol 10 mg/ml Inj (20 ML) ONE (17:01)
[2018-04-01] MEDS ORDERED: Midazolam 2 MG/2 ML VIAL ONE (17:01)
--- NOTE | 2018-04-01 18:15 | PCM.SURG1 ---
Surgeon's Initial Post Op Note - Surgeon's Notes Surgeon: Dr. Guillermina Bills. DPM Bakery Supervisor: Dr. Migue Tapia. DPM/PGY1 Type of Anesthesia: IV Sedation Anesthesia Administered By: Dr. Holden Pre-Operative Diagnosis: Left TMA 2ry to left foot necrotizing fasciitis and gangrene Operative Findings: See Dictation. Injectables: None. Materials: Integra graft, Integra flewable matrix. Post-Operative Diagnosis: Same Operation Performed: Left TMA site debridement of all necrotic tissues with application of integra graft Specimen/Specimens Removed: None Estimated Blood Loss: EBL {In ML}: 5 Blood Products Given: N/A Drains Used: No Drains Post-Op Condition: Good Date of Surgery/Procedure: 04/01/18 Time of Surgery/Procedure: 18:15
--- NOTE | 2018-04-01 19:49 | PN ---
DATE: 04/01/2018 REASON FOR CONSULTATION AND FOLLOWUP: Cardiac evaluation, history of coronary artery disease, foot abscess for possible myocutaneous graft. The patient denies any chest pain, shortness of breath, or any palpitations. OBJECTIVE: GENERAL: Not in apparent distress. VITAL SIGNS: Temperature afebrile, heart rate 92, and blood pressure 109/63. HEENT: PERRLA. Extraocular muscles are intact. NECK: Supple. No carotid bruits. No thyromegaly. CHEST: Clear to auscultation. HEART: S1 and S2 regular. ABDOMEN: Soft. EXTREMITIES: Clubbing and cyanosis negative. LABORATORY DATA: Blood workup as follows; WBC 8.9, hemoglobin 9, hematocrit 28.7, and platelet count 388. Chemistry shows sodium 147, potassium 4.9, chloride 99, carbon dioxide 33, anion gap of 20, BUN 15, and creatinine 1.6. IMPRESSION: A 57-year-old female with past medical history significant for coronary artery disease, status post percutaneous transluminal coronary angioplasty 2012 admitted with acute kidney injury, sepsis, septic shock, source being the abscess in the foot, status post incision and drainage, now the patient needs myocutaneous graft, history of congestive heart failure, diabetes. The patient coagulopathy, INR was elevated and 3 doses of vitamin K was given, now the patient is cleared to go for myocutaneous graft, being followed by Hematology as well. The patient in the beginning has dialysis, now kidney function improved off dialysis. RECOMMENDATIONS: Avoid nephrotoxic medication. Continue Lipitor. Continue Lopressor. Continue hydralazine. Monitor H and H. We will closely follow with you. The patient is off Plavix. We will follow with you. The patient is cleared from cardiac point of view to go for myocutaneous graft. Thank you Dr. Zhu for providing us the opportunity in taking care of the patient, Ashley Mallory. Stephanie Anton MD
--- NOTE | 2018-04-01 20:10 | PN ---
DATE: 04/01/2018 SUBJECTIVE: The patient is a 57-year-old, known to me, for followup. She states her blood sugars is fluctuating. Minimal pain to the surgical site. Complain of having poor IV access and being port. Her right leg triple lumen was being used for IV access. PHYSICAL EXAMINATION VITAL SIGNS: The patient is afebrile. Pulse 71, respirations 20, blood pressure 157/79. LUNGS: Bilateral fair airflow. No rhonchi or crackles. HEENT: S1 and S2 audible. ABDOMEN: Soft and nontender. No rebound. No guarding. NEUROLOGIC: The patient is awake, alert. oriented, and communicative. EXTREMITIES: Left foot is in the dressing. She has a big bruise extending from her forearm to left upper arm. LABORATORY DATA: WBC 9.3, hemoglobin 9, hematocrit 28.7, platelet 388. PT 15.1. INR 1.31. Chemistry; sodium 147, potassium 4.9, chloride 99, CO2 of 33, BUN 58, creatinine 1.6, blood sugar of 206. ASSESSMENT AND PLAN: 1. Status post Staphylococcus aureus bacteremia. 2. Insulin-dependent diabetes. 3. End-stage renal disease, on hemodialysis. 4. Chronic renal insufficiency, was on hemodialysis. As per nephrology, no need for dialysis anymore. 5. Chronic obstructive pulmonary disease. 6. Charcot's disease. PLAN: We will continue the patient on nebulizer treatment. She is on hydralazine 25 twice a day. She is on analgesic as needed. We will continue nebulizer treatment. She is on aspirin. She is on p.o. iron supplementation. I will request for Dr. Justin Gonzales. Follow up this patient in a.m. She is going to OR for skin grafting in a.m. Colt Zhu MD
[2018-04-01] MEDS: Insulin Detemir 100 units/ml Vial (Levemir) SC SCH (21:50)
[2018-04-02] MEDS: Albuterol-Ipratrop 3 mg / 0.5 (3 ml) UD IH SCH ×6 (00:25→20:17)
[2018-04-02 06:37] LABS: BASO # 0.05 K/mm3 (0.0-2.0); BASO % 0.5 % (0.0-3.0); EOS # 0.4 (0.0-0.7); EOS % 3.6 % (1.5-5.0); GRAN # 6.83 (1.4-6.5); GRAN % 69.8 % (50.0-68.0); HEMOGLOBIN 8.5 g/dL (12.0-16.0); LYMPH # 1.9 (1.2-3.4); LYMPH % 18.9 % (22.0-35.0); MEAN CELL VOLUME 92.7 fl (80.0-105.0); MEAN CORPUSCULAR HEMOGLOBIN 28.3 pg (25.0-35.0); MEAN CORPUSCULAR HGB CONC 30.6 g/dl (31.0-37.0); MONO # 0.7 (0.1-0.6); MONO % 7.2 % (1.0-6.0); RED CELL DISTRIBUTION WIDTH 15.1 % (11.5-14.5); WHITE BLOOD COUNT 9.8 10^3/uL (4.5-11.0)
--- NOTE | 2018-04-02 06:48 | CP.PCM.PN ---
<Larry Thomas - Last Filed: 04/02/18 11:32> Subjective - Date & Time of Evaluation Date of Evaluation: 04/02/18 Time of Evaluation: 06:46 - Subjective Subjective: Infectious disease progress note - Edilberto Thomas PGY3 Patient seen and examined at bedside. No acute overnight events or new complaints reported. She is s/p TMA and graft placement. Denies cp, palpitations, SOB. Objective - Vital Signs/Intake and Output Vital Signs (last 24 hours): Temp Pulse Resp BP Pulse Ox 98.6 F 104 H 19 134/74 96 04/01/18 19:30 04/01/18 18:50 04/01/18 19:30 04/01/18 19:30 04/01/18 19:30 Intake and Output: 04/01/18 04/02/18 18:59 06:59 Intake Total 840 Output Total 1000 Balance -160 - Medications Medications: Current Medications Albuterol/Ipratropium (Duoneb 3 Mg/0.5 Mg (3 Ml) Ud) 3 ml IH [id number] [facility] Last Admin: 04/02/18 03:10 Dose: 3 ml Albuterol/Ipratropium (Duoneb 3 Mg/0.5 Mg (3 Ml) Ud) 3 ml IH [id number] PRN PRN Reason: Shortness of Breath Last Admin: 03/26/18 17:16 Dose: 3 ml Allopurinol (Zyloprim) 100 mg PO DAILY [facility] Last Admin: 04/01/18 11:51 Dose: 100 mg Aspirin (Ecotrin) 81 mg PO DAILY [facility] Last Admin: 04/01/18 11:44 Dose: 81 mg Atorvastatin Calcium (Lipitor) 20 mg PO DAILY [facility] Last Admin: 03/18/18 09:50 Dose: 20 mg Calcium Acetate (Phoslo) 1,334 mg PO WM [facility] Last Admin: 04/01/18 19:03 Dose: Not Given Furosemide (Lasix) 40 mg PO DAILY [facility] Last Admin: 04/01/18 11:48 Dose: 40 mg Hydralazine HCl (Apresoline) 25 mg PO BID [facility] Last Admin: 04/01/18 19:02 Dose: Not Given Hydromorphone HCl (Dilaudid) 2 mg IVP Q4H PRN PRN Reason: Pain, severe (8-10) Last Admin: 04/01/18 21:49 Dose: 2 mg Meropenem/Sodium Chloride (Merrem Iv 500 Mg/Ns 50 Ml) 500 mg in 50 mls @ 100 mls/hr IVPB Q12 [facility]; Protocol Stop: 04/03/18 15:34 Last Admin: 04/01/18 21:51 Dose: 100 mls/hr Insulin Detemir (Levemir) 20 unit SC HS [facility] Last Admin: 04/01/18 21:50 Dose: 20 unit Insulin Human Lispro (Humalog Med) 0 units SC ACHS [facility] Last Admin: 04/01/18 21:51 Dose: 2 units Insulin Lispro Protam/Lispro Human (Humalog Mix 75/25) 18 units SC ACBD [facility] Last Admin: 04/01/18 19:02 Dose: Not Given Magnesium Oxide (Mag-Ox) 400 mg PO DAILY [facility] Last Admin: 04/01/18 11:50 Dose: 400 mg Metoprolol Tartrate (Lopressor) 50 mg PO BID [facility] Last Admin: 04/01/18 19:03 Dose: Not Given Home Med - Fluvoxamine [Luvox] 25 Mg 25 mg PO BID [facility] Last Admin: 04/01/18 19:02 Dose: Not Given Nortriptyline HCl (Pamelor) 50 mg PO HS [facility] Last Admin: 04/01/18 21:50 Dose: 50 mg Ondansetron HCl (Zofran Inj) 4 mg IVP ONCE PRN PRN Reason: Nausea/Vomiting Oxychlorosene Sodium (Clorpactin Wcs-90) 2 gm TOP DAILY [facility] Last Admin: 04/01/18 11:43 Dose: Not Given Polysaccharide Iron Complex (Ferrex-150) 150 mg PO DAILY [facility] Last Admin: 04/01/18 11:44 Dose: 150 mg Potassium Chloride (Klor-Con 10) 20 meq PO BRK [facility] Last Admin: 04/01/18 11:47 Dose: 20 meq Potassium Chloride (K-Dur 20 Meq Er Tab) 20 meq PO BRK [facility] Last Admin: 04/01/18 11:47 Dose: 20 meq - Labs Labs: 04/02/18 06:10 04/01/18 12:30 PT 15.1 SECONDS (9.4-12.5) H 04/01/18 12:30 INR 1.31 04/01/18 12:30 APTT 35.8 Seconds (25.1-36.5) 03/21/18 00:23 - Constitutional Appears: No Acute Distress - Head Exam Head Exam: ATRAUMATIC, NORMAL INSPECTION, NORMOCEPHALIC - Eye Exam Eye Exam: EOMI, PERRL - ENT Exam ENT Exam: Mucous Membranes Moist - Respiratory Exam Respiratory Exam: absent: Rales, Rhonchi, Wheezes - Cardiovascular Exam Cardiovascular Exam: RRR, +S1, +S2. absent: Clicks, Gallop, Rubs - GI/Abdominal Exam GI & Abdominal Exam: Soft. absent: Distended, Firm, Guarding, Rigid, Tenderness, Rebound - Neurological Exam Neurological Exam: Alert, Awake, Oriented x3 - Psychiatric Exam Psychiatric exam: Normal Affect, Normal Mood - Skin Skin Exam: Dry, Intact, Normal Color, Warm Assessment and Plan - Assessment and Plan (Free Text) Plan: 57yo female with history of COPD, obesity, fibromyalgia, recurrent UTI, restless leg syndrome, HTN, chronic CHF, DM, diabetic neuropathy, CKD, endometriosis, charcot foot and cellulitis of LE admitted for septic shock secondary to staph aureus bacteremia and staph aureus foot abscess s/p I&D in the setting of acute kidney injury. 1. resolved septic shock secondary to staph aureus bacteremia 2. Staph aureus left foot abscess/gangrene s/p I&D and s/p TMA 3. JAMIL on CKD, resolving 4. COPD, chronic 5. CHF, chronic 6. Normocytic anemia 7. Hx of hypertension 8. Diabetes mellitus type 2 9. Diabetic neuropathy -Patient is s/p left TMA by podiatry due to worsening gangrenous changes and s/p return to the OR for graft placement and debridement -OR wound pathology reviewed; acute osteomyelitis with margins clear of inflammation -She presently requires 2-3 weeks of meropenem given margins post amputation -Presently undergoing hyperbaric oxygen treatment -MRI negative for osteomyelitis -Echocardiogram revealed no apparent thrombus; LVEF 59%; see full report -Continue current management as per medicine/podiatry teams Patient seen and case discussed/reviewed with attending, Dr. Peacock <Jan Peacock - Last Filed: 04/02/18 17:28> Objective - Vital Signs/Intake and Output Vital Signs (last 24 hours): Temp Pulse Resp BP Pulse Ox 97.8 F 50 L 19 130/81 98 04/02/18 17:05 04/02/18 17:05 04/02/18 17:05 04/02/18 17:05 04/02/18 17:05 Intake and Output: 04/02/18 04/02/18 06:59 18:59 Intake Total 1260 Output Total 1300 Balance -40 - Medications Medications: Current Medications Albuterol/Ipratropium (Duoneb 3 Mg/0.5 Mg (3 Ml) Ud) 3 ml IH [id number] [facility] Last Admin: 04/02/18 16:35 Dose: 3 ml Albuterol/Ipratropium (Duoneb 3 Mg/0.5 Mg (3 Ml) Ud) 3 ml IH [id number] PRN PRN Reason: Shortness of Breath Last Admin: 03/26/18 17:16 Dose: 3 ml Allopurinol (Zyloprim) 100 mg PO DAILY [facility] Last Admin: 04/02/18 13:20 Dose: 100 mg Aspirin (Ecotrin) 81 mg PO DAILY [facility] Last Admin: 04/02/18 13:10 Dose: 81 mg Atorvastatin Calcium (Lipitor) 20 mg PO DAILY [facility] Last Admin: 03/18/18 09:50 Dose: 20 mg Calcium Acetate (Phoslo) 667 mg PO [facility] Darbepoetin Manjit (Aranesp) 100 mcg SC ONCE ONE Stop: 04/03/18 10:01 Furosemide (Lasix) 40 mg PO DAILY [facility] Last Admin: 04/02/18 13:17 Dose: Not Given Hydralazine HCl (Apresoline) 25 mg PO BID [facility] Last Admin: 04/02/18 13:10 Dose: Not Given Hydromorphone HCl (Dilaudid) 2 mg IVP Q4H PRN PRN Reason: Pain, severe (8-10) Last Admin: 04/02/18 14:35 Dose: 2 mg Meropenem/Sodium Chloride (Merrem Iv 500 Mg/Ns 50 Ml) 500 mg in 50 mls @ 100 mls/hr IVPB Q12 [facility]; Protocol Stop: 04/03/18 15:34 Last Admin: 04/02/18 16:21 Dose: 100 mls/hr Insulin Detemir (Levemir) 20 unit SC [facility] Last Admin: 04/01/18 21:50 Dose: 20 unit Insulin Human Lispro (Humalog Med) 0 units SC ACHS [facility] Last Admin: 04/02/18 16:35 Dose: Not Given Insulin Lispro Protam/Lispro Human (Humalog Mix 75/25) 18 units SC ACBD [facility] Last Admin: 04/02/18 16:34 Dose: Not Given Magnesium Oxide (Mag-Ox) 400 mg PO BID [facility] Metoprolol Tartrate (Lopressor) 50 mg PO BID [facility] Last Admin: 04/02/18 13:17 Dose: 50 mg Home Med - Fluvoxamine [Luvox] 25 Mg 25 mg PO BID [facility] Last Admin: 04/02/18 13:11 Dose: Not Given Nortriptyline HCl (Pamelor) 50 mg PO HS [facility] Last Admin: 04/01/18 21:50 Dose: 50 mg Ondansetron HCl (Zofran Inj) 4 mg IVP ONCE PRN PRN Reason: Nausea/Vomiting Oxychlorosene Sodium (Clorpactin Wcs-90) 2 gm TOP DAILY [facility] Last Admin: 04/02/18 13:10 Dose: Not Given Polysaccharide Iron Complex (Ferrex-150) 150 mg PO DAILY [facility] Last Admin: 04/02/18 13:11 Dose: 150 mg Potassium Chloride (Klor-Con 10) 20 meq PO BRK [facility] Last Admin: 04/02/18 13:16 Dose: 20 meq Potassium Chloride (K-Dur 20 Meq Er Tab) 20 meq PO BRK [facility] Last Admin: 04/02/18 13:16 Dose: 20 meq - Labs Labs: 04/02/18 06:10 04/02/18 06:10 PT 15.1 SECONDS (9.4-12.5) H 04/01/18 12:30 INR 1.31 04/01/18 12:30 APTT 35.8 Seconds (25.1-36.5) 03/21/18 00:23 Assessment and Plan - Assessment and Plan (Free Text) Plan: Infectious diseases Attending Physician Attestation Patient seen and examined, discussed with medical technologist prn. I have reviewed the patient's history of present illness, past medical, social, personal and family histories, pertinent physical exam findings, course so far in this hospital admission, pertinent laboratory and imaging results. I agree with the above findings, assessment and plan. In addition, continue Merrem for another 2-3 weeks for severe sepsis from left foot SSTI with gangrene and osteomyelitis with MSSA as well as MSSA bacteremia. Recommend another 2-3 weeks of antibiotics. Reviewed OR patholgoy and bone margins are clear, but soft tissue still with i nflammation.
[2018-04-02 07:03] LABS: CALCIUM 9.3 mg/dL (8.4-10.5)
--- NOTE | 2018-04-02 08:04 | OP ---
PROCEDURE DATE: 04/01/2018 SURGEON: Guillermina Bills DPM TECHNOLOGY PROJECT MANAGER: Migue Buenrostro MD, DPM/PGY-1. ANESTHESIOLOGIST: Helio Holden MD ANESTHESIA: IV sedation. PREOPERATIVE DIAGNOSIS: Left transmetatarsal amputation secondary to left foot necrotizing fasciitis and gangrene. POSTOPERATIVE DIAGNOSIS: Left transmetatarsal amputation secondary to left foot necrotizing fasciitis and gangrene. PROCEDURE: Left transmetatarsal amputation site debridement of all and necrotic tissues with application of Integra graft. INDICATION: The patient is a 57-year-old female with the above diagnosis. The patient has exhausted all the conservative treatment at this time and now requires surgical intervention. The patient signed the consent after careful explanation of risks, benefits, complications, and alternatives for surgical procedure. No guarantees were given nor implied. NPO status was confirmed prior to taking the patient to the OR. PREPARATION: The patient was brought to the operating room and placed on the operating table in the supine position. A time-out was performed for identification of the correct patient and procedure. After induction of IV sedation and after confirming sedation status, the left lower extremity was then prepped and draped in normal sterile manner and procedure began. No tourniquet was used during the procedure. DESCRIPTION OF PROCEDURE: Attention was directed to the distal aspect of the left foot in which a #15 blade was used to debride all the and necrotic tissues from the amputation site and the ulcer on the lateral site of the foot down to the healthy viable tissue. Then, the site was irrigated with copious amounts of saline solution using pulsed lavage. Then, an Integra bilayer graft measuring 10 x 12.5 cm was prepped in a basin using normal sterile saline solution and Bacitracin. After graft was prepared, the graft was then placed over the TMA site, and also part of the graft was cut and applied over the lateral operation site which measures almost 2.5 cm in diameter. The graft adhesion to the base of the TMA site and ulceration site as well and was noted to fully cover both sites. The graft was then secured to the wound edges using skin garrett. Then, Integra Flowable Matrix was injected to the TMA site under the graft. The surgical site was dressed first with saline soaked cotton balls followed by dry fluffy gauze, then ABD, Kerlix, and lastly Kishor wrap. POSTOPERATIVE CONDITION: The patient tolerated the anesthesia and procedure well and was then escorted to the recovery room with vital signs stable and neurovascular status intact to the left lower extremity. The patient is to stay non-weightbearing to the left lower extremity, Podiatry will continue to follow up the patient while in-house, and the patient will follow up with Dr. Guillermina Bills in the wound care center upon discharge. Migue Tapia DPM/PGY1 VY
--- NOTE | 2018-04-02 11:19 | CP.PCM.PN ---
<Migue Tapia - Last Filed: 04/02/18 11:14> Subjective - Date & Time of Evaluation Date of Evaluation: 04/02/18 Time of Evaluation: 11:14 - Subjective Subjective: Podiatry progress note for Dr. Little 57 y/o F patient seen and evaluated 1 day S/P Integra graft application over left foot TMA site secondary to diabetic foot abscess, necrotizing fasciitis and gangrene. Patient had HBO session today. Patient states that she is feeling well now. Patient denies any other pedal complaints at this time. Patient denies any pain at the surgery site. Patient denies any postoperative N/V/F/C/CP. Objective - Vital Signs/Intake and Output Vital Signs (last 24 hours): Temp Pulse Resp BP Pulse Ox 98.6 F 109 H 20 110/61 96 04/02/18 08:58 04/02/18 08:58 04/02/18 08:58 04/02/18 08:58 04/02/18 08:58 Intake and Output: 04/02/18 04/02/18 06:59 18:59 Intake Total 1260 Output Total 1300 Balance -40 - Medications Medications: Current Medications Albuterol/Ipratropium (Duoneb 3 Mg/0.5 Mg (3 Ml) Ud) 3 ml IH [id number] [facility] Last Admin: 04/02/18 11:00 Dose: Not Given Albuterol/Ipratropium (Duoneb 3 Mg/0.5 Mg (3 Ml) Ud) 3 ml IH [id number] PRN PRN Reason: Shortness of Breath Last Admin: 03/26/18 17:16 Dose: 3 ml Allopurinol (Zyloprim) 100 mg PO DAILY [facility] Last Admin: 04/01/18 11:51 Dose: 100 mg Aspirin (Ecotrin) 81 mg PO DAILY [facility] Last Admin: 04/01/18 11:44 Dose: 81 mg Atorvastatin Calcium (Lipitor) 20 mg PO DAILY [facility] Last Admin: 03/18/18 09:50 Dose: 20 mg Calcium Acetate (Phoslo) 1,334 mg PO WM [facility] Last Admin: 04/01/18 19:03 Dose: Not Given Furosemide (Lasix) 40 mg PO DAILY [facility] Last Admin: 04/01/18 11:48 Dose: 40 mg Hydralazine HCl (Apresoline) 25 mg PO BID [facility] Last Admin: 04/01/18 19:02 Dose: Not Given Hydromorphone HCl (Dilaudid) 2 mg IVP Q4H PRN PRN Reason: Pain, severe (8-10) Last Admin: 04/01/18 21:49 Dose: 2 mg Meropenem/Sodium Chloride (Merrem Iv 500 Mg/Ns 50 Ml) 500 mg in 50 mls @ 100 mls/hr IVPB Q12 [facility]; Protocol Stop: 04/03/18 15:34 Last Admin: 04/01/18 21:51 Dose: 100 mls/hr Insulin Detemir (Levemir) 20 unit SC HS [facility] Last Admin: 04/01/18 21:50 Dose: 20 unit Insulin Human Lispro (Humalog Med) 0 units SC ACHS [facility] Last Admin: 04/01/18 21:51 Dose: 2 units Insulin Lispro Protam/Lispro Human (Humalog Mix 75/25) 18 units SC ACBD [facility] Last Admin: 04/01/18 19:02 Dose: Not Given Magnesium Oxide (Mag-Ox) 400 mg PO DAILY [facility] Last Admin: 04/01/18 11:50 Dose: 400 mg Metoprolol Tartrate (Lopressor) 50 mg PO BID [facility] Last Admin: 04/01/18 19:03 Dose: Not Given Home Med - Fluvoxamine [Luvox] 25 Mg 25 mg PO BID [facility] Last Admin: 04/01/18 19:02 Dose: Not Given Nortriptyline HCl (Pamelor) 50 mg PO [facility] Last Admin: 04/01/18 21:50 Dose: 50 mg Ondansetron HCl (Zofran Inj) 4 mg IVP ONCE PRN PRN Reason: Nausea/Vomiting Oxychlorosene Sodium (Clorpactin Wcs-90) 2 gm TOP DAILY [facility] Last Admin: 04/01/18 11:43 Dose: Not Given Polysaccharide Iron Complex (Ferrex-150) 150 mg PO DAILY [facility] Last Admin: 04/01/18 11:44 Dose: 150 mg Potassium Chloride (Klor-Con 10) 20 meq PO BRK [facility] Last Admin: 04/01/18 11:47 Dose: 20 meq Potassium Chloride (K-Dur 20 Meq Er Tab) 20 meq PO BRK [facility] Last Admin: 04/01/18 11:47 Dose: 20 meq - Labs Labs: 12/11/18 06:10 04/02/18 06:10 PT 15.1 SECONDS (9.4-12.5) H 04/01/18 12:30 INR 1.31 04/01/18 12:30 APTT 35.8 Seconds (25.1-36.5) 03/21/18 00:23 - Constitutional Appears: Well, Non-toxic, No Acute Distress - Head Exam Head Exam: ATRAUMATIC, NORMOCEPHALIC - Extremities Exam Additional comments: Left Lower Extremity Exam: Dressing was C/D/I, Dressing left intact NEURO: Gross and protective sensations are diminished B/L. - Neurological Exam Neurological Exam: Alert, Awake, Oriented x3 - Psychiatric Exam Psychiatric exam: Normal Affect, Normal Mood Assessment and Plan - Assessment and Plan (Free Text) Assessment: 57 y/o F patient seen and evaluated 1 day S/P Integra graft application over left foot TMA site secondary to diabetic foot abscess, necrotizing fasciitis and gangrene. Plan: Patient seen and evaluated Discussed plan with attending Dr. Little Charts, labs and vitals reviewed: Afebrile, WBC 9.8, Hb 8.5 Patient general condition is good postoperative Dressing was C/D/I, Dressing left intact Patient had HBO session today. Podiatry will carefully continue to follow up the patient while in house. <Rodríguez Little - Last Filed: 04/03/18 16:55> Objective - Vital Signs/Intake and Output Vital Signs (last 24 hours): Temp Pulse Resp BP Pulse Ox 98.6 F 99 H 20 115/58 L 47 L 04/03/18 16:18 04/03/18 16:18 04/03/18 16:18 04/03/18 16:18 04/03/18 16:18 Intake and Output: 04/03/18 04/03/18 06:59 18:59 Intake Total 50 Output Total 1000 Balance -950 - Medications Medications: Current Medications Albuterol/Ipratropium (Duoneb 3 Mg/0.5 Mg (3 Ml) Ud) 3 ml IH [id number] [facility] Last Admin: 04/03/18 11:14 Dose: Not Given Albuterol/Ipratropium (Duoneb 3 Mg/0.5 Mg (3 Ml) Ud) 3 ml IH [id number] PRN PRN Reason: Shortness of Breath Last Admin: 03/26/18 17:16 Dose: 3 ml Allopurinol (Zyloprim) 100 mg PO DAILY [facility] Last Admin: 04/03/18 11:50 Dose: 100 mg Aspirin (Ecotrin) 81 mg PO DAILY [facility] Last Admin: 04/03/18 11:46 Dose: Not Given Atorvastatin Calcium (Lipitor) 20 mg PO DAILY [facility] Last Admin: 03/18/18 09:50 Dose: 20 mg Furosemide (Lasix) 40 mg PO DAILY [facility] Last Admin: 04/03/18 11:49 Dose: 40 mg Hydralazine HCl (Apresoline) 25 mg PO BID [facility] Last Admin: 04/03/18 11:45 Dose: 25 mg Hydromorphone HCl (Dilaudid) 2 mg IVP Q4H PRN PRN Reason: Pain, severe (8-10) Last Admin: 04/03/18 15:17 Dose: 2 mg Meropenem/Sodium Chloride (Merrem Iv 500 Mg/Ns 50 Ml) 500 mg in 50 mls @ 100 mls/hr IVPB Q12 [facility]; Protocol Stop: 04/17/18 22:01 Insulin Detemir (Levemir) 20 unit SC [facility] Last Admin: 04/02/18 21:55 Dose: 20 unit Insulin Human Lispro (Humalog Med) 0 units SC ACHS [facility] Last Admin: 04/03/18 11:57 Dose: 7 units Insulin Lispro Protam/Lispro Human (Humalog Mix 75/25) 18 units SC ACBD [facility] Last Admin: 04/03/18 11:48 Dose: 18 units Magnesium Oxide (Mag-Ox) 400 mg PO BID [facility] Last Admin: 04/03/18 11:50 Dose: 400 mg Metoprolol Tartrate (Lopressor) 50 mg PO BID [facility] Last Admin: 04/03/18 11:49 Dose: 50 mg Home Med - Fluvoxamine [Luvox] 25 Mg 25 mg PO BID [facility] Last Admin: 04/03/18 11:47 Dose: Not Given Nortriptyline HCl (Pamelor) 50 mg PO HS [facility] Last Admin: 04/02/18 21:54 Dose: 50 mg Ondansetron HCl (Zofran Inj) 4 mg IVP ONCE PRN PRN Reason: Nausea/Vomiting Oxychlorosene Sodium (Clorpactin Wcs-90) 2 gm TOP DAILY [facility] Last Admin: 04/03/18 11:46 Dose: Not Given Polysaccharide Iron Complex (Ferrex-150) 150 mg PO DAILY [facility] Last Admin: 04/03/18 11:47 Dose: 150 mg Potassium Chloride (Klor-Con 10) 20 meq PO BRK [facility] Last Admin: 04/03/18 08:39 Dose: 20 meq Potassium Chloride (K-Dur 20 Meq Er Tab) 20 meq PO BRK [facility] Last Admin: 04/03/18 08:39 Dose: 20 meq - Labs Labs: 04/03/18 15:30 04/03/18 15:30 PT 15.1 SECONDS (9.4-12.5) H 04/01/18 12:30 INR 1.31 04/01/18 12:30 APTT 35.8 Seconds (25.1-36.5) 03/21/18 00:23 Attending/Attestation - Attestation I have personally seen and examined this patient.: Yes I have fully participated in the care of the patient.: Yes I have reviewed all pertinent clinical information, including history, physical exam and plan: Yes
[2018-04-02] MEDS ORDERED: Magnesium Sulfate 2 gm/50 ml 2 GM/50 ML BAG IVPB ONE (11:22)
[2018-04-02] MEDS: Oxychlorosene Topical 2 gm Packet TOP SCH (13:10)
[2018-04-02] MEDS: Insulin Lispro (humaLOG) MEDIUM Coverage SC SCH ×4 (13:11→21:55)
[2018-04-02] MEDS: Iron Complex Polysacch 150mg Cap PO SCH (13:11)
[2018-04-02] MEDS: FLUVOXAMINE 25 MG PO SCH ×2 (13:11→17:57)
[2018-04-02] MEDS: Insulin Lispro (humaLOG) MIX 75/25(10 ml) SC SCH ×2 (13:12→16:34)
[2018-04-02] MEDS: Potassium Chloride 20 mEq ER Tab PO SCH (13:16)
[2018-04-02] MEDS: Potassium Chloride 10 mEq ER Tab PO SCH (13:16)
[2018-04-02] MEDS: Magnesium Oxide 400 mg Tab UD PO SCH ×2 (13:18→17:56)
[2018-04-02] MEDS: HYDROmorphone 2 mg/ml ISec IVP PRN ×2 (14:35→21:55)
--- NOTE | 2018-04-02 16:04 | CP.PCM.APN ---
Subjective - Date & Time of Evaluation Date of Evaluation: 04/02/18 Time of Evaluation: 11:00 - Subjective Subjective: 57 year old female with pmh of DM, CAD, post PCI,coronary stents, COPD, fibromyalgia, htn, chf, Diabetic neuropathy, admitted with sepsis, bacteremia, infected left foot ulcer with Staph. Aureus, currently undergoing treatment of infected left foot wound. Pt is s/p TMA of left foot, POD 6. Pt. seen and examined, resting comfortabley in bed, after return from hyperbaric treatment. Left arm noted to be ecchymotic, with swelling noted. VS reviewed. Lab results reviewed. Interventions/Plan of Care. Pt receiving Merrem Day 7, out of 30, per I.D. Pt. receiving Hyperbaric treatment per podiatry. Magnesium replaced, Receiving Aranesp per renal, will continue to monitor repeat labs. Will anticipate DC to [facility] for antibx, and hyperbaric treatment. Pt. awaiting PICC line insertion by Dr. Gonzales , due to failed midline insertion by picc team. SW/CM for DC Planning to [facility]. Objective - Vital Signs/Intake and Output Vital Signs (last 24 hours): Temp Pulse Resp BP Pulse Ox 98.6 F 105 H 20 117/74 96 04/02/18 08:58 04/02/18 13:17 04/02/18 08:58 04/02/18 13:17 04/02/18 08:58 Intake and Output: 04/02/18 04/02/18 06:59 18:59 Intake Total 1260 Output Total 1300 Balance -40 - Medications Medications: Current Medications Albuterol/Ipratropium (Duoneb 3 Mg/0.5 Mg (3 Ml) Ud) 3 ml IH [id number] [facility] Last Admin: 04/02/18 11:00 Dose: Not Given Albuterol/Ipratropium (Duoneb 3 Mg/0.5 Mg (3 Ml) Ud) 3 ml IH [id number] PRN PRN Reason: Shortness of Breath Last Admin: 03/26/18 17:16 Dose: 3 ml Allopurinol (Zyloprim) 100 mg PO DAILY [facility] Last Admin: 04/02/18 13:20 Dose: 100 mg Aspirin (Ecotrin) 81 mg PO DAILY [facility] Last Admin: 04/02/18 13:10 Dose: 81 mg Atorvastatin Calcium (Lipitor) 20 mg PO DAILY [facility] Last Admin: 03/18/18 09:50 Dose: 20 mg Calcium Acetate (Phoslo) 667 mg PO [facility] Darbepoetin Manjit (Aranesp) 100 mcg SC ONCE ONE Stop: 04/03/18 10:01 Furosemide (Lasix) 40 mg PO DAILY [facility] Last Admin: 04/02/18 13:17 Dose: Not Given Hydralazine HCl (Apresoline) 25 mg PO BID [facility] Last Admin: 04/02/18 13:10 Dose: Not Given Hydromorphone HCl (Dilaudid) 2 mg IVP Q4H PRN PRN Reason: Pain, severe (8-10) Last Admin: 04/02/18 14:35 Dose: 2 mg Meropenem/Sodium Chloride (Merrem Iv 500 Mg/Ns 50 Ml) 500 mg in 50 mls @ 100 mls/hr IVPB Q12 [facility]; Protocol Stop: 04/03/18 15:34 Last Admin: 04/01/18 21:51 Dose: 100 mls/hr Insulin Detemir (Levemir) 20 unit SC HS [facility] Last Admin: 04/01/18 21:50 Dose: 20 unit Insulin Human Lispro (Humalog Med) 0 units SC ACHS [facility] Last Admin: 04/02/18 13:11 Dose: 7 units Insulin Lispro Protam/Lispro Human (Humalog Mix 75/25) 18 units SC ACBD [facility] Last Admin: 04/02/18 13:12 Dose: 18 units Magnesium Oxide (Mag-Ox) 400 mg PO BID [facility] Metoprolol Tartrate (Lopressor) 50 mg PO BID [facility] Last Admin: 04/02/18 13:17 Dose: 50 mg Home Med - Fluvoxamine [Luvox] 25 Mg 25 mg PO BID [facility] Last Admin: 04/02/18 13:11 Dose: Not Given Nortriptyline HCl (Pamelor) 50 mg PO HS [facility] Last Admin: 04/01/18 21:50 Dose: 50 mg Ondansetron HCl (Zofran Inj) 4 mg IVP ONCE PRN PRN Reason: Nausea/Vomiting Oxychlorosene Sodium (Clorpactin Wcs-90) 2 gm TOP DAILY [facility] Last Admin: 04/02/18 13:10 Dose: Not Given Polysaccharide Iron Complex (Ferrex-150) 150 mg PO DAILY [facility] Last Admin: 04/02/18 13:11 Dose: 150 mg Potassium Chloride (Klor-Con 10) 20 meq PO [facility] Last Admin: 04/02/18 13:16 Dose: 20 meq Potassium Chloride (K-Dur 20 Meq Er Tab) 20 meq PO BRK [facility] Last Admin: 04/02/18 13:16 Dose: 20 meq - Labs Labs: 04/02/18 06:10 04/02/18 06:10 PT 15.1 SECONDS (9.4-12.5) H 04/01/18 12:30 INR 1.31 04/01/18 12:30 APTT 35.8 Seconds (25.1-36.5) 03/21/18 00:23
[2018-04-02] MEDS: MEROPENEM 500 MG in NS 500 MG/50 ML BAG IVPB SCH ×2 (16:21→21:54)
--- NOTE | 2018-04-02 16:38 | PN ---
DATE: 04/02/2018 REASON FOR CONSULTATION: Followup, cardiac evaluation, history of coronary artery disease, foot abscess, status post myocutaneous graft, left transmetatarsal amputation secondary to left gangrene and application of the graft and left tarsal and metatarsal amputation, and debridement of the wounds, and application of the graft yesterday. SUBJECTIVE: The patient denied any chest pain, shortness of breath, or any palpitation. PHYSICAL EXAMINATION: GENERAL: Not in apparent distress. Feels a lot better. VITAL SIGNS: Temperature afebrile, heart rate 104, blood pressure 110/61. HEENT: PERRLA, intact. NECK: Supple. No carotid bruit or thyromegaly. CHEST: Clear to auscultation. HEART: S1 and S2, regular. ABDOMEN: Soft. EXTREMITIES: Clubbing and cyanosis negative. Left foot is in dressing. LABORATORY DATA: Blood workup: WBC 9.2, hemoglobin 8.5, hematocrit 27.8 with a platelet count of 407. Chemistry showed sodium 135, potassium 4, chloride 97, CO2 of 34, anion gap of 19, BUN 16, creatinine 1.7, and magnesium 1.4. IMPRESSION: A 57-year-old female with past medical history significant for coronary artery disease, status post angioplasty in 02/2013, acute kidney injury, sepsis, septic shock source being the left foot, status post multiple debridement and incision, and now the patient has myocutaneous graft and debridement. At one point, the patient has a encephalopathy, INR was elevated and vitamin K given, multiple packed red blood cell transfusion was given. Now the patient improved. Kidney function also improved, off dialysis, creatinine is 1.7. Today, magnesium is 1.7 and creatinine is 1.6 off dialysis. RECOMMENDATION: Supplement magnesium, avoid nephrotoxic medications. Continue Lipitor, continue Lopressor for tachycardia. The patient was at home to control the heart rate metoprolol was given. I explained to the patient. Currently 50 mg twice a day. Continue Lasix as per fisher troll line. Continue hydralazine. Avoid nephrotoxic medications. We will follow with you. No evidence of acute NM though the patient is in no distress with tachycardia and septic shock, but troponin remains flat. Thank you Dr. Zhu for providing us the opportunity in taking care of the patient, Mohamud Ramirez. Stephanie Anton MD [facility] # [id number]
--- NOTE | 2018-04-02 18:27 | PN ---
DATE: 04/02/2018 SUBJECTIVE: The patient is currently seen sitting up comfortably in bed completing lunch. She is status post hyperbaric oxygen therapy earlier today. She is status post a skin graft to the left TMA site 1 day ago. The patient had her midline catheter removed from her left upper extremity which is ecchymotic. She continues to have a Trialysis catheter. This will likely be left in place until she has a PICC line placed. She does require three additional weeks of IV antibiotic therapy. She no longer requires any dialysis. OBJECTIVE: INTAKE/OUTPUT. Intake 1260, output 1300. VITAL SIGNS: Blood pressure 110/61, temperature 98.6, pulse of 109, respiratory rate of 20 with oxygen saturation of 96%. HEENT: Exam shows her to be normocephalic, atraumatic. Conjunctivae are pale. Sclerae are nonicteric. NECK: Supple. No neck vein distention. CHEST: Clear to auscultation and percussion. No rales, rhonchi or wheezing. CARDIOVASCULAR: Shows a regular rate and rhythm with MR/TR. No S3, no S4, no rub. Positive Trialysis catheter, right chest wall. ABDOMEN: Soft. Bowel sounds normal, no rebound, guarding or masses. EXTREMITIES: Show a large ecchymotic area left upper extremity in the area where she had the midline catheter which had been removed. Left TMA with a large dressing over her left lower extremity. No lower extremity edema. LABORATORY DATA AND IMAGING: CBC, white blood cell count 9.8, hemoglobin 8.5 with a platelet count of 407,000. Chemistry showed normal electrolytes. CO2 34, BUN is down to 57. Creatinine is stable at 1.7. The patient's baseline creatinine is in the low 2 range, so she is actually below baseline levels. Glucose is 232. Calcium 9.3, phosphorus 3.9 with a magnesium of 1.4. Microbiology. Repeat cultures were positive for staph aureus MSSA from the left foot, from the right foot. MEDICATIONS: The patient is currently on Apresoline, Clorpactin, Dilaudid, DuoNeb, Ecotrin, Ferrex, Luvox, insulin, potassium, Lasix, Lipitor is on hold, Lopressor, magnesium oxide, meropenem, Pamelor, PhosLo, Zofran, and Zyloprim. ASSESSMENT: 1. Acute renal failure superimposed on chronic kidney disease stage III. The patient did require a short course of acute dialysis. Her creatinine was greater than 10. She was acidotic and hyperkalemic. The patient no longer requires dialysis. Her creatinine is now at or below her baseline levels. The Trialysis catheter can be removed from my standpoint, but I do understand that she does need access. Her midline catheter of the left upper extremity was removed because of difficulties with the catheter and a large ecchymotic area of left upper extremity. The patient is awaiting evaluation for a possible PICC line. 2. Status post severe sepsis, Methicillin-resistant Staphylococcus aureus bacteremia with a foot abscess. She is status post transmetatarsal amputation and status post skin graft. She is being followed by Podiatry. 3. History of anemia in part secondary to chronic kidney disease in part secondary to sepsis. The patient may receive Aranesp. Her iron saturations were 38%. 4. History of left ventricular hypertrophy with mitral regurgitation/tricuspid regurgitation. Ejection fraction 60% with stable pulmonary hypertension. 5. History of COPD secondary to past history of cigarette, stable. 6. History of secondary hyperparathyroidism. Phosphorus level is now normal at 3.9 with improvement in her renal parameters. The patient is not requiring any binders. The patient is on binder therapy, PhosLo, and I will decrease this dose to 667 mg after each meal. 7. History of hypertension. Blood pressure controlled on present medical therapy. 8. History of diabetes. Glucose control is acceptable on long-acting insulin and short-acting insulin on a p.r.n. basis. 9. History of coronary artery disease status post percutaneous transluminal coronary angioplasty and stent, stable. 10. Hypomagnesemia. The patient will continue magnesium supplements. I will increase magnesium oxide to twice a day from once a day. PLAN: 1. Again Trialysis catheter from my standpoint may be removed. No plans for further dialysis. 2. Perhaps placement of a PICC line which will allow us to remove the Trialysis catheter. 3. The patient will require three more weeks of IV antibiotic therapy for her MSSA wound infection of her lower extremity. So a PICC line will be placed. 4. Decrease PhosLo as noted above. 5. Increase magnesium oxide as noted above. 6. Continue local wound care with hyperbaric oxygen as per Podiatry status post her left TMA and skin graft. 7. Continue Aranesp 100 mcg a week. Iron saturations are okay, so the patient may continue on oral iron therapy. No IV iron is necessary. Brent Sheth MD
--- NOTE | 2018-04-02 18:40 | PN ---
DATE: 04/02/2018 SUBJECTIVE: had provided treatment, had skin graft done yesterday. There is no pain. No nausea or vomiting. No diarrhea. No chest pain or shortness of breath. PHYSICAL EXAMINATION: VITAL SIGNS: She is afebrile. Pulse 109, respirations 20, blood pressure 110/61. LUNGS: Bilateral fair airflow. No rhonchi or crackle. HEART: S1 and S2 audible. ABDOMEN: Soft, obese, and nontender. No rebound. No guarding. NEUROLOGICAL: The patient is awake and alert, and able to communicate. EXTREMITIES: Left foot is in the dressing. LABORATORY DATA: WBC is 9.8, hemoglobin 8.5, hematocrit 27.8, platelets 407. Chemistry: Sodium 136, potassium 4.8, chloride 98, CO2 31, BUN 57, creatinine 1.7, blood sugar of 232. ASSESSMENT: 1. Staphylococcus aureus bacteremia, status post transmetatarsal amputation, status post skin grafting. 2. Anemia. 3. Insulin-dependent diabetes. 4. Peripheral vascular disease. 5. Charcot's disease. PLAN: Currently, the patient is on p.o. iron supplementation, given analgesic as needed. Currently, the patient is on meropenem. I spoke to ID. Needs total of three weeks from amputation of the use of antibiotics . The patient will receive PICC line and after that, we will make a discharge plan. We will discuss with the patient if she wants to go to subacute rehab, but she will prefer to have antibiotic at home. The patient may need hyperbaric treatment for her left foot TMA. Colt Zhu MD
[2018-04-02] MEDS: Insulin Detemir 100 units/ml Vial (Levemir) SC SCH (21:55)
[2018-04-03] MEDS: Albuterol-Ipratrop 3 mg / 0.5 (3 ml) UD IH SCH ×4 (00:04→11:14)
--- NOTE | 2018-04-03 07:04 | CP.PCM.PN ---
<Larry Thomas - Last Filed: 04/03/18 12:48> Subjective - Date & Time of Evaluation Date of Evaluation: 04/03/18 Time of Evaluation: 07:02 - Subjective Subjective: Infectious disease progress note - Edilberto Thomas PGY3 Patient seen and examined at bedside. No acute overnight events or new complaints reported. She is s/p TMA and graft placement. Requires PICC line placement for prolonged abx therapy. To be discharged to [facility] for abx once able. Denies cp, palpitations, SOB. Objective - Vital Signs/Intake and Output Vital Signs (last 24 hours): Temp Pulse Resp BP Pulse Ox 97.8 F 79 19 115/74 98 04/02/18 17:05 04/02/18 17:58 04/02/18 17:05 04/02/18 17:58 04/02/18 17:05 Intake and Output: 04/03/18 04/03/18 06:59 18:59 Intake Total 50 Output Total 1000 Balance -950 - Medications Medications: Current Medications Albuterol/Ipratropium (Duoneb 3 Mg/0.5 Mg (3 Ml) Ud) 3 ml IH [id number] [facility] Last Admin: 04/03/18 04:31 Dose: 3 ml Albuterol/Ipratropium (Duoneb 3 Mg/0.5 Mg (3 Ml) Ud) 3 ml IH [id number] PRN PRN Reason: Shortness of Breath Last Admin: 03/26/18 17:16 Dose: 3 ml Allopurinol (Zyloprim) 100 mg PO DAILY [facility] Last Admin: 04/02/18 13:20 Dose: 100 mg Aspirin (Ecotrin) 81 mg PO DAILY [facility] Last Admin: 04/02/18 13:10 Dose: 81 mg Atorvastatin Calcium (Lipitor) 20 mg PO DAILY [facility] Last Admin: 03/18/18 09:50 Dose: 20 mg Calcium Acetate (Phoslo) 667 mg PO WM [facility] Last Admin: 04/02/18 17:58 Dose: 667 mg Darbepoetin Manjit (Aranesp) 100 mcg SC ONCE ONE Stop: 04/03/18 10:01 Furosemide (Lasix) 40 mg PO DAILY [facility] Last Admin: 04/02/18 13:17 Dose: Not Given Hydralazine HCl (Apresoline) 25 mg PO BID [facility] Last Admin: 04/02/18 17:57 Dose: Not Given Hydromorphone HCl (Dilaudid) 2 mg IVP Q4H PRN PRN Reason: Pain, severe (8-10) Last Admin: 04/02/18 21:55 Dose: 2 mg Meropenem/Sodium Chloride (Merrem Iv 500 Mg/Ns 50 Ml) 500 mg in 50 mls @ 100 mls/hr IVPB Q12 [facility]; Protocol Stop: 04/03/18 15:34 Last Admin: 04/02/18 21:54 Dose: 100 mls/hr Insulin Detemir (Levemir) 20 unit SC HS [facility] Last Admin: 04/02/18 21:55 Dose: 20 unit Insulin Human Lispro (Humalog Med) 0 units SC [facility] Last Admin: 04/02/18 21:55 Dose: Not Given Insulin Lispro Protam/Lispro Human (Humalog Mix 75/25) 18 units SC ACBD [facility] Last Admin: 04/02/18 16:34 Dose: Not Given Magnesium Oxide (Mag-Ox) 400 mg PO BID [facility] Last Admin: 04/02/18 17:56 Dose: 400 mg Metoprolol Tartrate (Lopressor) 50 mg PO BID [facility] Last Admin: 04/02/18 17:58 Dose: Not Given Home Med - Fluvoxamine [Luvox] 25 Mg 25 mg PO BID [facility] Last Admin: 04/02/18 17:57 Dose: Not Given Nortriptyline HCl (Pamelor) 50 mg PO [facility] Last Admin: 04/02/18 21:54 Dose: 50 mg Ondansetron HCl (Zofran Inj) 4 mg IVP ONCE PRN PRN Reason: Nausea/Vomiting Oxychlorosene Sodium (Clorpactin Wcs-90) 2 gm TOP DAILY [facility] Last Admin: 04/02/18 13:10 Dose: Not Given Polysaccharide Iron Complex (Ferrex-150) 150 mg PO DAILY [facility] Last Admin: 04/02/18 13:11 Dose: 150 mg Potassium Chloride (Klor-Con 10) 20 meq PO BRK [facility] Last Admin: 04/02/18 13:16 Dose: 20 meq Potassium Chloride (K-Dur 20 Meq Er Tab) 20 meq PO BRK [facility] Last Admin: 04/02/18 13:16 Dose: 20 meq - Labs Labs: 04/02/18 06:10 04/02/18 06:10 PT 15.1 SECONDS (9.4-12.5) H 04/01/18 12:30 INR 1.31 04/01/18 12:30 APTT 35.8 Seconds (25.1-36.5) 03/21/18 00:23 - Constitutional Appears: No Acute Distress - Head Exam Head Exam: ATRAUMATIC, NORMAL INSPECTION, NORMOCEPHALIC - Eye Exam Eye Exam: EOMI, PERRL - ENT Exam ENT Exam: Mucous Membranes Moist - Respiratory Exam Respiratory Exam: absent: Rales, Rhonchi, Wheezes - Cardiovascular Exam Cardiovascular Exam: RRR, +S1, +S2. absent: Clicks, Gallop, Rubs - GI/Abdominal Exam GI & Abdominal Exam: Soft. absent: Distended, Firm, Guarding, Rigid, Tenderness, Rebound - Neurological Exam Neurological Exam: Alert, Awake, Oriented x3 - Psychiatric Exam Psychiatric exam: Normal Affect, Normal Mood - Skin Skin Exam: Dry, Intact, Normal Color, Warm Assessment and Plan - Assessment and Plan (Free Text) Plan: 57yo female with history of COPD, obesity, fibromyalgia, recurrent UTI, restless leg syndrome, HTN, chronic CHF, DM, diabetic neuropathy, CKD, endometriosis, charcot foot and cellulitis of LE admitted for septic shock secondary to staph aureus bacteremia and staph aureus foot abscess s/p I&D in the setting of acute kidney injury. 1. resolved septic shock secondary to staph aureus bacteremia 2. Staph aureus left foot abscess/gangrene s/p I&D and s/p TMA 3. JAMIL on CKD, resolving 4. COPD, chronic 5. CHF, chronic 6. Normocytic anemia 7. Hx of hypertension 8. Diabetes mellitus type 2 9. Diabetic neuropathy -Patient is s/p left TMA by podiatry due to worsening gangrenous changes and s/p return to the OR for graft placement and debridement -OR wound pathology reviewed; acute osteomyelitis with margins clear of osteo however some inflammation present, will treat similar to soft tissue infection -She presently requires 2-3 weeks of meropenem given margins post amputation -Presently undergoing hyperbaric oxygen treatment -MRI negative for osteomyelitis -Echocardiogram revealed no apparent thrombus; LVEF 59%; see full report -Continue current management as per medicine/podiatry teams Patient seen and case discussed/reviewed with attending, Dr. Peacock <MadonnaJan - Last Filed: 04/03/18 20:26> Objective - Vital Signs/Intake and Output Vital Signs (last 24 hours): Temp Pulse Resp BP Pulse Ox 98.6 F 98 H 20 114/73 47 L 04/03/18 16:18 04/03/18 17:24 04/03/18 16:18 04/03/18 17:24 04/03/18 16:18 - Labs Labs: 04/03/18 15:30 04/03/18 15:30 PT 15.1 SECONDS (9.4-12.5) H 04/01/18 12:30 INR 1.31 04/01/18 12:30 APTT 35.8 Seconds (25.1-36.5) 03/21/18 00:23 Assessment and Plan - Assessment and Plan (Free Text) Plan: Infectious diseases Attending Physician Attestation Patient seen and examined, discussed with medical lead. I have reviewed the patient's history of present illness, past medical, social, personal and family histories, pertinent physical exam findings, course so far in this hospital adm ission, pertinent laboratory and imaging results. I agree with the above findings, assessment and plan. In addition, continue Merrem for another 2-3 weeks for severe sepsis from left foot SSTI with gangrene and osteomyelitis with MSSA as well as MSSA bacteremia. Reviewed OR patholgoy and bone margins are clear, but soft tissue still with inflammation. Should follow up with Podiatry as outpatient.
[2018-04-03] MEDS: Potassium Chloride 10 mEq ER Tab PO SCH (08:39)
[2018-04-03] MEDS: Potassium Chloride 20 mEq ER Tab PO SCH (08:39)
[2018-04-03] MEDS ORDERED: Darbepoetin Alfa 100 mcg/ml Inj SC ONE (10:00)
[2018-04-03] MEDS ORDERED: Lidocaine 2% Inj (20ml) ONE (11:16)
[2018-04-03] MEDS: Oxychlorosene Topical 2 gm Packet TOP SCH (11:46)
[2018-04-03] MEDS: Insulin Lispro (humaLOG) MEDIUM Coverage SC SCH ×3 (11:47→17:23)
[2018-04-03] MEDS: FLUVOXAMINE 25 MG PO SCH ×2 (11:47→17:23)
[2018-04-03] MEDS: Iron Complex Polysacch 150mg Cap PO SCH (11:47)
[2018-04-03] MEDS: Insulin Lispro (humaLOG) MIX 75/25(10 ml) SC SCH ×2 (11:48→17:23)
[2018-04-03] MEDS: Magnesium Oxide 400 mg Tab UD PO SCH ×2 (11:50→17:24)
[2018-04-03] MEDS: MEROPENEM 500 MG in NS 500 MG/50 ML BAG IVPB SCH (11:50)
--- NOTE | 2018-04-03 12:32 | CP.PCM.APN ---
Subjective - Date & Time of Evaluation Date of Evaluation: 04/03/18 Time of Evaluation: 09:15 - Subjective Subjective: 57 year old female with pmh of DM, CAD, post PCI,coronary stents, COPD, fibromyalgia, htn, chf, Diabetic neuropathy, admitted with sepsis, bacteremia, infected left foot ulcer with Staph. Aureus,,POD #7 left TMA, POD #2 skin graft application to left TMA. Pt. seen and examined. Pt. observed on stretcher, appears comfortable, no shortness of breath noted, denied chest discomfort. Denied any pain currently to Left TMA. Pt. is being transported to [facility]. States she had a good night, with no issues. Denied pain to left arm, denied further bleeding episodes. Pt. is for insertion of Picc line this am by Dr. Gonzales. Review of Systems - Review of Systems All systems: reviewed and no additional remarkable complaints except (as previously stated.) - Constitutional Constitutional: As Per HPI - Integumentary Integumentary: Wounds Additional comments: Left TMA wound, covered with dressing. Denied pain to left arm, noted to have areas of ecchymosis. - Hematologic/Lymphatic Hematologic: Easy Bruising Objective - Vital Signs/Intake and Output Vital Signs (last 24 hours): Temp Pulse Resp BP Pulse Ox 98.1 F 95 H 20 122/71 94 L 04/03/18 08:19 04/03/18 11:49 04/03/18 08:19 04/03/18 11:49 04/03/18 08:19 Intake and Output: 04/03/18 04/03/18 06:59 18:59 Intake Total 50 Output Total 1000 Balance -950 - Medications Medications: Current Medications Albuterol/Ipratropium (Duoneb 3 Mg/0.5 Mg (3 Ml) Ud) 3 ml IH [id number] [facility] Last Admin: 04/03/18 11:14 Dose: Not Given Albuterol/Ipratropium (Duoneb 3 Mg/0.5 Mg (3 Ml) Ud) 3 ml IH [id number] PRN PRN Reason: Shortness of Breath Last Admin: 03/26/18 17:16 Dose: 3 ml Allopurinol (Zyloprim) 100 mg PO DAILY [facility] Last Admin: 04/03/18 11:50 Dose: 100 mg Aspirin (Ecotrin) 81 mg PO DAILY [facility] Last Admin: 04/03/18 11:46 Dose: Not Given Atorvastatin Calcium (Lipitor) 20 mg PO DAILY [facility] Last Admin: 03/18/18 09:50 Dose: 20 mg Calcium Acetate (Phoslo) 667 mg PO WM [facility] Last Admin: 04/03/18 08:39 Dose: 667 mg Furosemide (Lasix) 40 mg PO DAILY [facility] Last Admin: 04/03/18 11:49 Dose: 40 mg Hydralazine HCl (Apresoline) 25 mg PO BID [facility] Last Admin: 04/03/18 11:45 Dose: 25 mg Hydromorphone HCl (Dilaudid) 2 mg IVP Q4H PRN PRN Reason: Pain, severe (8-10) Last Admin: 04/02/18 21:55 Dose: 2 mg Meropenem/Sodium Chloride (Merrem Iv 500 Mg/Ns 50 Ml) 500 mg in 50 mls @ 100 mls/hr IVPB Q12 [facility]; Protocol Stop: 04/03/18 15:34 Last Admin: 04/03/18 11:50 Dose: 100 mls/hr Insulin Detemir (Levemir) 20 unit SC HS [facility] Last Admin: 04/02/18 21:55 Dose: 20 unit Insulin Human Lispro (Humalog Med) 0 units SC ACHS [facility] Last Admin: 04/03/18 11:57 Dose: 7 units Insulin Lispro Protam/Lispro Human (Humalog Mix 75/25) 18 units SC ACBD [facility] Last Admin: 04/03/18 11:48 Dose: 18 units Magnesium Oxide (Mag-Ox) 400 mg PO BID [facility] Last Admin: 04/03/18 11:50 Dose: 400 mg Metoprolol Tartrate (Lopressor) 50 mg PO BID [facility] Last Admin: 04/03/18 11:49 Dose: 50 mg Home Med - Fluvoxamine [Luvox] 25 Mg 25 mg PO BID [facility] Last Admin: 04/03/18 11:47 Dose: Not Given Nortriptyline HCl (Pamelor) 50 mg PO [facility] Last Admin: 04/02/18 21:54 Dose: 50 mg Ondansetron HCl (Zofran Inj) 4 mg IVP ONCE PRN PRN Reason: Nausea/Vomiting Oxychlorosene Sodium (Clorpactin Wcs-90) 2 gm TOP DAILY [facility] Last Admin: 04/03/18 11:46 Dose: Not Given Polysaccharide Iron Complex (Ferrex-150) 150 mg PO DAILY [facility] Last Admin: 04/03/18 11:47 Dose: 150 mg Potassium Chloride (Klor-Con 10) 20 meq PO BRK [facility] Last Admin: 04/03/18 08:39 Dose: 20 meq Potassium Chloride (K-Dur 20 Meq Er Tab) 20 meq PO BRK [facility] Last Admin: 04/03/18 08:39 Dose: 20 meq - Labs Labs: 04/02/18 06:10 04/02/18 06:10 PT 15.1 SECONDS (9.4-12.5) H 04/01/18 12:30 INR 1.31 04/01/18 12:30 APTT 35.8 Seconds (25.1-36.5) 03/21/18 00:23 - Constitutional Appears: Well - Head Exam Head Exam: ATRAUMATIC - Eye Exam Eye Exam: Normal appearance - ENT Exam ENT Exam: Normal Oropharynx - Neck Exam Neck Exam: Normal Inspection - Respiratory Exam Respiratory Exam: NORMAL BREATHING PATTERN - Cardiovascular Exam Cardiovascular Exam: REGULAR RHYTHM - GI/Abdominal Exam GI & Abdominal Exam: Normal Bowel Sounds - Rectal Exam Rectal Exam: Deferred - Extremities Exam Extremities Exam: Normal Inspection - Back Exam Back Exam: NORMAL INSPECTION - Neurological Exam Neurological Exam: Oriented x3 Assessment and Plan - Assessment and Plan (Free Text) Assessment: 1. Bacteremia resolved- Continue Antibx as per I.D. 2. Gangrene left foot, with Staph Aureus Infection, POD #7 Left TMA, POD #2 skin graft application- Pt. will need 22 more days of Hyperbaric treatments.- continue Iv Merrem 2-3 weeks from TMA as per Dr. Peacock. 3. Renal Insufficiency Improved- Dialysis Catheter to be removed as per water mechanic. 4. Ecchymosis left arm, s/p Midline insertion, for PiCC line insertion with Dr. Gonzales today SW /CM Planning for [facility] with hyperbaric treatments to be arranged. Pt. is cleared from medical standpoint for DC with accepting [facility] facility. Will continue to monitor clinical status and follow closely.
--- NOTE | 2018-04-03 14:19 | CP.PCM.PN ---
Subjective - Date & Time of Evaluation Date of Evaluation: 04/03/18 Time of Evaluation: 13:44 - Subjective Subjective: Podiatry progress note for Dr. Bills 57 y/o F patient seen and evaluated 2 days S/P Integra graft application over left foot TMA site secondary to diabetic foot abscess, necrotizing fasciitis and gangrene. Patient had HBO session today. Patient states that she is feeling well today. Patient denies any other pedal complaints at this time. Patient denies any pain at the surgery site. Patient denies any postoperative N/V/F/C/CP. Objective - Vital Signs/Intake and Output Vital Signs (last 24 hours): Temp Pulse Resp BP Pulse Ox 98.1 F 95 H 20 122/71 94 L 04/03/18 08:19 04/03/18 11:49 04/03/18 08:19 04/03/18 11:49 04/03/18 08:19 Intake and Output: 04/03/18 04/03/18 06:59 18:59 Intake Total 50 Output Total 1000 Balance -950 - Medications Medications: Current Medications Albuterol/Ipratropium (Duoneb 3 Mg/0.5 Mg (3 Ml) Ud) 3 ml IH [id number] [facility] Last Admin: 04/03/18 11:14 Dose: Not Given Albuterol/Ipratropium (Duoneb 3 Mg/0.5 Mg (3 Ml) Ud) 3 ml IH [id number] PRN PRN Reason: Shortness of Breath Last Admin: 03/26/18 17:16 Dose: 3 ml Allopurinol (Zyloprim) 100 mg PO DAILY [facility] Last Admin: 04/03/18 11:50 Dose: 100 mg Aspirin (Ecotrin) 81 mg PO DAILY [facility] Last Admin: 04/03/18 11:46 Dose: Not Given Atorvastatin Calcium (Lipitor) 20 mg PO DAILY [facility] Last Admin: 03/18/18 09:50 Dose: 20 mg Furosemide (Lasix) 40 mg PO DAILY [facility] Last Admin: 04/03/18 11:49 Dose: 40 mg Hydralazine HCl (Apresoline) 25 mg PO BID [facility] Last Admin: 04/03/18 11:45 Dose: 25 mg Hydromorphone HCl (Dilaudid) 2 mg IVP Q4H PRN PRN Reason: Pain, severe (8-10) Last Admin: 04/02/18 21:55 Dose: 2 mg Meropenem/Sodium Chloride (Merrem Iv 500 Mg/Ns 50 Ml) 500 mg in 50 mls @ 100 mls/hr IVPB Q12 [facility]; Protocol Stop: 04/03/18 15:34 Last Admin: 04/03/18 11:50 Dose: 100 mls/hr Insulin Detemir (Levemir) 20 unit SC HS [facility] Last Admin: 04/02/18 21:55 Dose: 20 unit Insulin Human Lispro (Humalog Med) 0 units SC ACHS [facility] Last Admin: 04/03/18 11:57 Dose: 7 units Insulin Lispro Protam/Lispro Human (Humalog Mix 75/25) 18 units SC ACBD [facility] Last Admin: 04/03/18 11:48 Dose: 18 units Magnesium Oxide (Mag-Ox) 400 mg PO BID [facility] Last Admin: 04/03/18 11:50 Dose: 400 mg Metoprolol Tartrate (Lopressor) 50 mg PO BID [facility] Last Admin: 04/03/18 11:49 Dose: 50 mg Home Med - Fluvoxamine [Luvox] 25 Mg 25 mg PO BID [facility] Last Admin: 04/03/18 11:47 Dose: Not Given Nortriptyline HCl (Pamelor) 50 mg PO [facility] Last Admin: 04/02/18 21:54 Dose: 50 mg Ondansetron HCl (Zofran Inj) 4 mg IVP ONCE PRN PRN Reason: Nausea/Vomiting Oxychlorosene Sodium (Clorpactin Wcs-90) 2 gm TOP DAILY [facility] Last Admin: 04/03/18 11:46 Dose: Not Given Polysaccharide Iron Complex (Ferrex-150) 150 mg PO DAILY [facility] Last Admin: 04/03/18 11:47 Dose: 150 mg Potassium Chloride (Klor-Con 10) 20 meq PO BRK [facility] Last Admin: 04/03/18 08:39 Dose: 20 meq Potassium Chloride (K-Dur 20 Meq Er Tab) 20 meq PO BRK [facility] Last Admin: 04/03/18 08:39 Dose: 20 meq - Labs Labs: 04/02/18 06:10 04/02/18 06:10 PT 15.1 SECONDS (9.4-12.5) H 04/01/18 12:30 INR 1.31 04/01/18 12:30 APTT 35.8 Seconds (25.1-36.5) 03/21/18 00:23 - Constitutional Appears: Well, Non-toxic, No Acute Distress - Head Exam Head Exam: ATRAUMATIC, NORMOCEPHALIC - Extremities Exam Additional comments: Left Lower Extremity Exam: VASC: DP/PT 2/4 , Temp gradient warm to warm on the from proximal to distal. Erythema noted proximal to the TMA site up to the ankle. NEURO: Gross and protective sensations are diminished B/L. DERM: TMA amputation site and lateral ulcer looks clean with the graft and the stables are in place. No purulent drainage and no bleeding. Erythema noted proximal to the TMA site up to the ankle with patch of necrotic black skin at the level of the anterior ankle. Right foot, stable ulceration noted to the tip of the 2nd digit MSK: No pain on palpating the left foot amputation site and the periulcerative area of the Right foot. Left ankle ROM is WNL. Muscle power intact 5/5 to all groups. - Neurological Exam Neurological Exam: Alert, Awake, Oriented x3 - Psychiatric Exam Psychiatric exam: Normal Affect, Normal Mood Assessment and Plan - Assessment and Plan (Free Text) Assessment: 57 y/o F patient seen and evaluated 2 days S/P Integra graft application over left foot TMA site secondary to diabetic foot abscess, necrotizing fasciitis and gangrene. Plan: Patient seen and evaluated after the HBO session Discussed plan with attending Dr. Bills Charts, labs and vitals reviewed: Afebrile, WBC 9.8, Hb 8.5 (04/02) Patient general condition is good. Dressing was C/D/I, Dressing changed used DSD, ABD and kerlix, Xeroform left in place Patient had HBO session today. COntinue treatment as per primary team. Podiatry will carefully continue to follow up the patient while in house.
--- NOTE | 2018-04-03 14:45 | PN ---
DATE: 04/03/2018 REASON FOR CONSULTATION: Followup, cardiac evaluation, preoperative and postop followup for infected status post graft. The patient denied chest pain, shortness of breath, or any palpitation. Feels a lot better. PHYSICAL EXAMINATION: GENERAL: Not in apparent distress. VITAL SIGNS: Afebrile, heart rate 17, blood pressure 114/73. HEENT: PERRLA, intact. NECK: Supple. No carotid bruit. Thyromegaly. CHEST: Clear to auscultation. HEART: S1 and S2 regular. ABDOMEN: Soft. EXTREMITIES: Clubbing, cyanosis negative. Left foot under dressing. LABORATORY DATA: WBC 9.8, hemoglobin 8.5, hematocrit 27.8 as of yesterday. Chemistry with sodium 110, potassium 4, chloride 90, carbon dioxide 34, anion gap of 9, BUN 57, creatinine 1.7. IMPRESSION: A 57-year-old female with past medical history significant for coronary artery status post stent in 02/2013, peripheral arterial disease, status post abscess of left foot, went into septic shock, who is being the status post debridement, now the patient underwent myocutaneous graft. The patient went into acute renal failure, now improved. Now off dialysis and creatinine is 1.7. RECOMMENDATIONS: Continue beta-bev, off Plavix. Continue baby aspirin. Avoid nephrotoxic medication. Monitor renal function. We will follow with you. We will repeat SMA-7 today pending. Continue atorvastatin. Thank you Dr. Zhu for providing us the opportunity in taking care of the patient, Mohamud Ramirez. CVA status is stable. Stephanie Anton MD
[2018-04-03] MEDS: HYDROmorphone 2 mg/ml ISec IVP PRN (15:17)
[2018-04-03 15:48] LABS: HEMOGLOBIN 8.4 g/dL (12.0-16.0); MEAN CORPUSCULAR HEMOGLOBIN 28.1 pg (25.0-35.0); MEAN CORPUSCULAR HGB CONC 30.5 g/dl (31.0-37.0); RBC 2.99 10^6/uL (3.5-6.1); RED CELL DISTRIBUTION WIDTH 15.2 % (11.5-14.5); WHITE BLOOD COUNT 7.9 10^3/uL (4.5-11.0)
[2018-04-03 16:18] VITALS: RESP 20; TEMP 98.6; O2SAT 47
[2018-04-03 16:18] LABS: ALB/GLOB RATIO 0.8 (1.1-1.8); ALBUMIN 3.1 g/dL (3.0-4.8); CALCIUM 9.6 mg/dL (8.4-10.5)
[2018-04-03 17:33] VITALS: BP 114/73; PULSE 98
--- NOTE | 2018-04-03 17:56 | VASCULAR ---
Date of service: 04/03/2018 PROCEDURE: HISTORY: REMOVE DIALYSIS CATH COMPARISON: TECHNIQUE: FINDINGS: IMPRESSION: The patient's temporary right IJ dialysis catheter was removed and hemostasis obtained.
--- NOTE | 2018-04-03 17:57 | VASCULAR ---
PROCEDURE: Ultrasound and fluoroscopically placed right upper extremity PICC line. HISTORY: Diabetic foot ulcer. Long-term IV antibiotics needs PICC line PHYSICIAN(S): Justin Gonzales MD. TECHNIQUE: The relative risks and indications of the procedure were explained to the patient and consent obtained. The patient was placed supine on the arteriogram table and the right arm prepped and draped in the usual sterile fashion. A tourniquet was applied to the right axilla. 1% Xylocaine was used to anesthetize the skin and soft tissues at the puncture site above the elbow. The right basilic vein was punctured under direct ultrasound guidance with a micropuncture set. A 0.018 guidewire was advanced centrally and used to measure the length to the SVC/RA junction. A 5 Slovak single-lumen PICC line 39 cm long was advanced to the SVC/RA junction. The catheter was flushed and secured. The patient tolerated the procedure well. IMPRESSION: 1. Ultrasound and fluoroscopically placed right upper extremity PICC line. A 5 Slovak single-lumen PICC line 39 cm long was advanced to the SVC/RA junction.
--- NOTE | 2018-04-03 19:23 | PN ---
DATE: 04/03/2018 SUBJECTIVE: The patient is seen in the vascular lab. She is having her dialysis catheter removed. She is feeling well. She denies any chest pain. She denies any shortness of breath. She denies any nausea or vomiting. PHYSICAL EXAMINATION GENERAL: Middle-aged lady lying in bed. VITAL SIGNS: Blood pressure 122/71, heart rate 95, respiratory rate 20, temperature 98.1. HEENT: Normocephalic, atraumatic. Positive pallor. NECK: Supple. No JVD. LUNGS: Bilateral equal air entry. No rales, no rhonchi. CARDIAC: S1 and S2, regular rate and rhythm. No murmur, no rub. ABDOMEN: Obese, distended, soft, nontender, bowel sounds present. EXTREMITIES: Dressing of the left foot. INTAKE AND OUTPUT: 580/2130. LABORATORY DATA: WBC 9.8, hemoglobin 8.5, hematocrit 27.8, platelets 407. BUN 57, creatinine 1.7, calcium 9.3, phosphorus 3.9, magnesium 1.4. CURRENT MEDICATIONS: Apresoline 25 b.i.d., Dilaudid, DuoNeb, Ecotrin, Luvox, insulin 70/30, Lasix 40 p.o. daily, Levemir, Lipitor, Lopressor 50 b.i.d., mag oxide, Merrem, Pamelor, PhosLo. ASSESSMENT: 1. Acute kidney injury, superimposed on chronic kidney disease stage III, resolving acute kidney injury. 2. Status post severe sepsis, Staphylococcus abscess, Staphylococcus bacteremia. 3. Hyperphosphatemia, resolved. 4. Chronic anemia. 5. Jaw-lbvzugt-fwynendjt diabetes mellitus. 6. Peripheral arterial disease. 7. Need for long-term antibiotics. PLAN: 1. Remove catheter for dialysis. 2. Place PICC line. 3. Discontinue PhosLo. 4. Continue antibiotics as per ID recommendations. 5. Avoid nephrotoxins. 6. Monitor fingerstick and continue insulin. 7. Labs 2 or 3 times a week. Elva Frank MD
[2018-04-03] MEDS ORDERED: MEROPENEM 500 MG in NS 500 MG/50 ML BAG IVPB SCH (22:00)
--- NOTE | 2018-04-03 22:14 | DS ---
HISTORY OF PRESENT ILLNESS: The patient is a 57-year-old who was admitted on 03/14/2018, after she was seen by Dr. Bills which was found to be swelling worsening wound. Patient had leukocytosis. She was emergently taken to OR next day and had I and D done. Patient had Staphylococcus aureus bacteremia and the wound was growing the same bacteria. So, she had been on antibiotics and then patient received antibiotic treatment with no significant improvement. The patient underwent transmetatarsal amputation on 03/27/2018. Since then, she has been IV antibiotics and hyperbaric treatment. According to ID recommendation, she needs some 3 weeks of meropenem. Initially, she had midline placement on her left arm apparently because of coagulopathy. She had bruise and it was nonfunctioning, so she is scheduled to have PICC line placed today to finish her course of antibiotics. She will get PICC line placed today and then she will be transferred to subacute rehab. PHYSICAL EXAMINATION: VITAL SIGNS: She is afebrile, pulse 95, respirations 22, blood pressure . LUNGS: Bilateral fair airflow. No rhonchi or crackles. HEART: S1 and S2 audible. ABDOMEN: Soft, obese, nontender. No rebound. No guarding. NEUROLOGIC: The patient is awake, alert, oriented, and communicative. LABORATORY DATA: Blood sugar is 241. ASSESSMENT: 1. Left foot Charcot's disease. 2. Left foot abscess status post initial irrigation and debridement because of Staphylococcus aureus bacteremia and left transmetatarsal amputation positive for osteomyelitis. The patient as osteomyelitis. 3. Insulin-dependent diabetes. 4. History of hypertension. 5. Acute on chronic kidney disease. Had multiple dialysis, but currently she does not need any dialysis. PLAN: The patient will be discharged today after but she will be followed by Dr. Bills as an outpatient to wound and the kidney function and H and H will be monitored. Colt Zhu MD
== END 2018-04-03 18:06 | DRG 853 ==
LOC: ED 10:30 → ERH 12:48 → 5RNO 14:04 → ICU 03-16 20:15 → 3RSO 03-19 11:55
PROVIDERS: ADMIT Internal Medicine; ATTEND Internal Medicine
PROC: 0J9R0ZX Drainage of Left Foot Subcutaneous Tissue and Fascia, Open Approach, Diagnostic (ICD-10-PCS; 2018-03-16)
PROC: 30243N1 Transfusion of Nonautologous Red Blood Cells into Central Vein, Percutaneous Approach (ICD-10-PCS; 2018-03-16)
PROC: 05HM33Z Insertion of Infusion Device into Right Internal Jugular Vein, Percutaneous Approach (ICD-10-PCS; 2018-03-17)
PROC: B543ZZA Ultrasonography of Right Jugular Veins, Guidance (ICD-10-PCS; 2018-03-17)
PROC: 05HY33Z Insertion of Infusion Device into Upper Vein, Percutaneous Approach (ICD-10-PCS; 2018-03-20)
PROC: 5A05121 Extracorporeal Hyperbaric Oxygenation, Intermittent (ICD-10-PCS; 2018-03-21)
PROC: 02HV33Z Insertion of Infusion Device into Superior Vena Cava, Percutaneous Approach (ICD-10-PCS; 2018-03-21)
PROC: 0Y6N0ZB Detachment at Left Foot, Partial 2nd Ray, Open Approach (ICD-10-PCS; 2018-03-27)
PROC: 0Y6N0ZC Detachment at Left Foot, Partial 3rd Ray, Open Approach (ICD-10-PCS; 2018-03-27)
PROC: 0Y6N0ZD Detachment at Left Foot, Partial 4th Ray, Open Approach (ICD-10-PCS; 2018-03-27)
PROC: 0Y6N0ZF Detachment at Left Foot, Partial 5th Ray, Open Approach (ICD-10-PCS; 2018-03-27)
PROC: 0KBW0ZZ Excision of Left Foot Muscle, Open Approach (ICD-10-PCS; 2018-03-27)
PROC: 0Y6N0Z9 Detachment at Left Foot, Partial 1st Ray, Open Approach (ICD-10-PCS; principal; 2018-03-27 07:30)
PROC: 0HRNXK3 Replacement of Left Foot Skin with Nonautologous Tissue Substitute, Full Thickness, External Approach (ICD-10-PCS; 2018-04-01)
PROC: 0JBR0ZZ Excision of Left Foot Subcutaneous Tissue and Fascia, Open Approach (ICD-10-PCS; 2018-04-01)
PROC: B51M1ZA Fluoroscopy of Right Upper Extremity Veins using Low Osmolar Contrast, Guidance (ICD-10-PCS; 2018-04-03)
PROC: 05PY33Z Removal of Infusion Device from Upper Vein, Percutaneous Approach (ICD-10-PCS; 2018-04-03)
DX: A41.01 Sepsis due to Methicillin susceptible Staphylococcus aureus (principal); R65.21 Severe sepsis with septic shock; R57.8 Other shock; N18.6 End stage renal disease; K72.00 Acute and subacute hepatic failure without coma; M72.6 Necrotizing fasciitis; L03.116 Cellulitis of left lower limb; L03.115 Cellulitis of right lower limb; N17.9 Acute kidney failure, unspecified; T79.A0XA Compartment syndrome, unspecified, initial encounter; E11.52 Type 2 diabetes mellitus with diabetic peripheral angiopathy with gangrene; E87.1 Hypo-osmolality and hyponatremia; L02.612 Cutaneous abscess of left foot; E87.2 Acidosis; D68.9 Coagulation defect, unspecified; J44.1 Chronic obstructive pulmonary disease with (acute) exacerbation; I13.2 Hypertensive heart and chronic kidney disease with heart failure and with stage 5 chronic kidney disease, or end stage renal disease; I42.9 Cardiomyopathy, unspecified; N25.81 Secondary hyperparathyroidism of renal origin; E11.621 Type 2 diabetes mellitus with foot ulcer; E11.40 Type 2 diabetes mellitus with diabetic neuropathy, unspecified; E11.22 Type 2 diabetes mellitus with diabetic chronic kidney disease; E11.610 Type 2 diabetes mellitus with diabetic neuropathic arthropathy; E11.628 Type 2 diabetes mellitus with other skin complications; D63.1 Anemia in chronic kidney disease; G25.81 Restless legs syndrome; E87.5 Hyperkalemia; E66.01 Morbid (severe) obesity due to excess calories; Z79.02 Long term (current) use of antithrombotics/antiplatelets; Z79.4 Long term (current) use of insulin; Z79.82 Long term (current) use of aspirin; Z87.891 Personal history of nicotine dependence; I50.9 Heart failure, unspecified; I25.10 Atherosclerotic heart disease of native coronary artery without angina pectoris; E11.21 Type 2 diabetes mellitus with diabetic nephropathy; D50.0 Iron deficiency anemia secondary to blood loss (chronic); E11.319 Type 2 diabetes mellitus with unspecified diabetic retinopathy without macular edema; E11.65 Type 2 diabetes mellitus with hyperglycemia; Z99.2 Dependence on renal dialysis; E83.42 Hypomagnesemia; E87.6 Hypokalemia; E78.5 Hyperlipidemia, unspecified; E11.69 Type 2 diabetes mellitus with other specified complication; N20.0 Calculus of kidney; M14.679 Charcot's joint, unspecified ankle and foot; G47.30 Sleep apnea, unspecified; I08.1 Rheumatic disorders of both mitral and tricuspid valves; I27.20 Pulmonary hypertension, unspecified; Z95.5 Presence of coronary angioplasty implant and graft

== ENCOUNTER 2018-04-05 09:30 | Emergency (ER) | payer MEDICARE ==
[2018-04-05 09:30] VITALS: BMI 28.6
[2018-04-05 09:44] VITALS: RESP 18; TEMP 97.9; O2SAT 96
--- NOTE | 2018-04-05 10:08 | ED PDOC ---
Arrival/HPI - General Chief Complaint: Flu-like Symptoms Time Seen by Provider: 04/05/18 09:48 Historian: Patient - History of Present Illness Narrative History of Present Illness (Text): 04/05/18 10:04 A 57 year old female, whose past medical history includes hypertension, diabetes, and CKD, recent admission for osteomyelitis, on hyperbaric therapy, presents to the emergency department from the skilled nursing complaining of left sided body aches since 2 days ago. Patient states her whole left side hurts. Patient denies any specific complaints of pain other than chief complaint, fever, chills, shortness of breath, chest pain, diarrhea, nausea, vomiting, urinary symptoms, back pain, neck pain, headache, dizziness, or any other complaints. PMD: Dr. Zhu Time/Duration: Other (2 days) Symptom Onset: Gradual Activities at Onset: Light Context: Other (Long Term) Past Medical History - Provider Review Nursing Documentation Reviewed: Yes - Infectious Disease Hx of Infectious Diseases: None - Tetanus Immunization Tetanus Immunization: Unknown - Cardiac Hx Cardiac Disorders: Yes (coronary stent.) Hx Congestive Heart Failure: Yes Hx Hypertension: Yes - Pulmonary Hx Chronic Obstructive Pulmonary Disease (COPD): Yes - Neurological Hx Neurological Disorder: Yes Hx Dizziness: Yes - HEENT Hx HEENT Disorder: Yes (EPISTAXIS) Hx Epistaxis: Yes - Renal Hx Renal Failure: Yes - Endocrine/Metabolic Hx Diabetes Mellitus Type 2: Yes - Hematological/Oncological Hx Blood Transfusions: Yes Hx Blood Transfusion Reaction: No - Integumentary Hx Dermatological Disorder: Yes Hx Cellulitis: Yes - Musculoskeletal/Rheumatological Hx Arthritis: Yes - Gastrointestinal Hx Gastrointestinal Disorders: Yes Other/Comment: hernia - Genitourinary/Gynecological Other/Comment: Endometriosis - Psychiatric Hx Psychophysiologic Disorder: Yes Hx Anxiety: Yes Hx Depression: Yes Hx Substance Use: No - Surgical History Hx Mastectomy: No - Anesthesia Hx Anesthesia Reactions: No Hx Malignant Hyperthermia: No - Suicidal Assessment Feels Threatened In Home Enviroment: No Family/Social History - Physician Review Nursing Documentation Reviewed: Yes Family/Social History: No Known Family HX Smoking Status: Former Smoker Hx Alcohol Use: No Hx Substance Use: No Hx Substance Use Treatment: No Allergies/Home Meds Allergies/Adverse Reactions: Allergies Iodine and Iodide Containing Produc Allergy (Intermediate, Verified 04/05/18 09:35) URTICARIA ceftaroline fosamil [From Teflaro] Allergy (Verified 04/05/18 09:35) ITCHING theophylline Allergy (Verified 04/05/18 09:35) NAUSEA Home Medications: Home Meds Medication Instructions Recorded Confirmed RX: Montelukast [Singulair] 10 mg PO DAILY 11/29/16 04/05/18 RX: Pantoprazole [Protonix EC Tab] 20 mg PO DAILY 11/29/16 04/05/18 RX: QUEtiapine [Seroquel XR] 100 mg PO HS 11/29/16 04/05/18 RX: tiZANidine [Zanaflex] 2 mg PO Q6 11/22/17 04/05/18 RX: Furosemide [Lasix] 40 mg PO .SUN, AND Sunday03/14/18 04/05/18 RX: Promethazine HCl/Codeine 5 ml PO TID PRN 03/14/18 04/05/18 [Prometh-Codein 6.25-10 mg/5 ml] RX: Methylphenidate HCl [Ritalin] 5 mg PO DAILY 03/15/18 04/05/18 Review of Systems - Physician Review All systems were reviewed & negative as marked: Yes - Review of Systems Constitutional: absent: Fevers, Night Sweats Respiratory: absent: SOB Gastrointestinal: absent: Diarrhea, Nausea, Vomiting Genitourinary Female: absent: Urine Output Changes Musculoskeletal: Other (Left sided body aches). absent: Back Pain, Neck Pain Neurological: absent: Headache, Dizziness Physical Exam Vital Signs Reviewed: Yes Vital Signs Temp Pulse Resp BP Pulse Ox 04/05/18 09:44 97.9 F 80 18 108/58 L 96 Temperature: Afebrile Blood Pressure: Hypotensive Pulse: Regular Respiratory Rate: Normal Appearance: Positive for: Well-Appearing, Non-Toxic - Systems Exam Head: Present: Atraumatic, Normocephalic Pupils: Present: PERRL Extroacular Muscles: Present: EOMI Conjunctiva: Present: Normal Neck: Present: Normal Range of Motion Respiratory/Chest: Present: Clear to Auscultation, Good Air Exchange. No: Resp iratory Distress, Accessory Muscle Use Cardiovascular: Present: Regular Rate and Rhythm, Normal S1, S2. No: Murmurs Abdomen: No: Tenderness, Distention, Peritoneal Signs Back: Present: Normal Inspection Upper Extremity: Present: Other (+ecchymosis to left arm) Lower Extremity: Present: Other (+left foot dressing, patient declines any examination on dressing) Neurological: Present: GCS=15, CN II-XII Intact, Speech Normal Skin: Present: Warm, Dry, Normal Color. No: Rashes Psychiatric: Present: Alert, Oriented x 3, Normal Insight, Normal Concentration Medical Decision Making ED Course and Treatment: 04/05/18 10:12 Impression: 57 year old female presenting with left sided body aches. abd sof tno ttp. prolonged course inpt. Plan: -- EKG -- Labs -- CBC -- COAGs -- Chest X-ray -- Toradol -- Urinalysis -- Reassess and disposition Prior Visits: Notes and results from previous visits were reviewed. Progress Notes: 04/05/18 11:17 EKG: Ordered, reviewed, and independently interpreted the EKG. Rate : 82 BPM Rhythm : NSR Interpretation : No ST-wave changes. 04/05/18 11:54 Procedure: Chest X-ray Impression: No active disease. Dictator: Celio Barros MD 04/05/18 15:32 pt now states she was due for hbo therapy, while in route to hospital for treatment, asked to be seen in er, because "nursuing was not treating her symptoms". in er, asks to be transfered to another de. case discussed with dr zhu, and dr wilkinson. seen in er by podiatry. dr zhu accpets case for case management eval. while in er, outsole caser came nanette and spoke to pt. pt now agrees to return to de. states she feels better. will go to hbo treatment, and return to de. labs neg. pain resolved. pt sleepign in nad. - RAD Interpretation Radiology Orders: 04/05/18 10:00 CHEST PORTABLE [RAD] Stat - Medication Orders Current Medication Orders: Ketorolac Tromethamine (Toradol) 30 mg IVP STAT STA Stop: 04/05/18 10:02 - Scribe Statement The provider has reviewed the documentation as recorded by the Scribhenry Garay All medical record entries made by the Scribe were at my direction and personally dictated by me. I have reviewed the chart and agree that the record accurately reflects my personal performance of the history, physical exam, medical decision making, and the department course for this patient. I have also personally directed, reviewed, and agree with the discharge instructions and disposition. Disposition/Present on Arrival - Present on Arrival Any Indicators Present on Arrival: No History of DVT/PE: No History of Uncontrolled Diabetes: No Urinary Catheter: No History of Decub. Ulcer: No History Surgical Site Infection Following: None - Disposition Have Diagnosis and Disposition been Completed?: Yes Diagnosis: Body aches, Pain of left side of body Disposition: HOME/ ROUTINE Disposition Time: 12:00 Condition: STABLE Discharge Instructions (ExitCare): Acute Pain, Adult (DC) Additional Instructions: follow up with your doctor/clinic. return to er with worsening symptosm or concerns. Referrals: Colt Zhu MD [Primary Care Provider] - Follow up with primary Forms: Bevvy ([place])
[2018-04-05 10:35] LABS: BASO # 0.06 K/mm3 (0.0-2.0); BASO % 0.7 % (0.0-3.0); EOS # 0.4 (0.0-0.7); EOS % 4.7 % (1.5-5.0); GRAN # 6.16 (1.4-6.5); HEMOGLOBIN 8.2 g/dL (12.0-16.0); LYMPH # 1.6 (1.2-3.4); LYMPH % 18.3 % (22.0-35.0); MEAN CELL VOLUME 92.3 fl (80.0-105.0); MEAN CORPUSCULAR HEMOGLOBIN 28.6 pg (25.0-35.0); MEAN CORPUSCULAR HGB CONC 30.9 g/dl (31.0-37.0); MEAN PLATELET VOLUME 11.1 fl (7.0-11.0); MONO # 0.6 (0.1-0.6); MONO % 6.3 % (1.0-6.0); RBC 2.87 10^6/uL (3.5-6.1); RED CELL DISTRIBUTION WIDTH 15.3 % (11.5-14.5); WHITE BLOOD COUNT 8.8 10^3/uL (4.5-11.0)
[2018-04-05 10:41] LABS: INR 1.21; PARTIAL THROMBOPLASTIN TIME 29.2 Seconds (25.1-36.5)
[2018-04-05 10:46] LABS: URINE BILIRUBIN NEGATIVE (NEGATIVE); URINE BLOOD NEGATIVE (NEGATIVE); URINE GLUCOSE (UA) NEGATIVE (NEGATIVE); URINE LEUKOCYTE ESTERASE SMALL Leu/uL (NEGATIVE); URINE PROTEIN 100 mg/dL (<30 mg/dL); URINE UROBILINOGEN 0.2 E.U./dL (<1 E.U./dL)
[2018-04-05 10:47] LABS: URINE APPEARANCE SL CLOUDY (CLEAR); URINE COLOR LIGHT YELLOW (YELLOW)
[2018-04-05 11:01] LABS: TROPONIN I 0.05 ng/mL
[2018-04-05 11:16] LABS: ALB/GLOB RATIO 0.8 (1.1-1.8); CALCIUM 9.1 mg/dL (8.4-10.5)
[2018-04-05 11:27] LABS: URINE BACTERIA MANY (NEG); URINE RBC NEGATIVE /hpf (0-2); URINE WBC 15 - 20 /hpf (0-6)
--- NOTE | 2018-04-05 11:47 | RAD ---
Date of service: 04/05/2018 HISTORY: Right-sided body pain. COMPARISON: 03/22/2018. FINDINGS: LUNGS: Resolution of pulmonary vascular congestion seen previously. PLEURA: No significant pleural effusion identified, no pneumothorax apparent. CARDIOVASCULAR: No atherosclerotic calcification present PICC line in satisfactory position replaces previous dialysis catheter. OSSEOUS STRUCTURES: No significant abnormalities. VISUALIZED UPPER ABDOMEN: Normal. OTHER FINDINGS: None. IMPRESSION: No active disease.
[2018-04-05] MEDS ORDERED: Promethazine/Cod 6.25mg-10mg/5ml Syr UD PO PRN (12:17)
[2018-04-05] MEDS ORDERED: MEROPENEM 500 MG in NS 500 MG/50 ML BAG IVPB SCH (12:30)
[2018-04-05] MEDS ORDERED: Pantoprazole 20 mg EC Tab PO SCH (12:30)
--- NOTE | 2018-04-05 12:35 | CP.PCM.PCO ---
Physician Communication Note - Physician Communication Note Physician Communication Note: Pt seen with Dr. Little. Dressing wet, graft intact. Dress DSD and xeroform
[2018-04-05 13:00] VITALS: BP 111/64; PULSE 76
[2018-04-05] MEDS ORDERED: Insulin Lispro (humaLOG) MIX 75/25(10 ml) SC SCH (16:30)
[2018-04-05] MEDS ORDERED: Insulin Lispro (HUMAlog) HIGH Coverage SC SCH (16:30)
--- NOTE | 2018-04-05 18:58 | CARD ---
APPROVED REPORT Date of service: 04/05/2018 EKG Measurement Heart [id number] <Conclusion> Normal sinus rhythm Normal ECG
--- NOTE | 2018-04-05 20:28 | HP ---
DATE OF EXAM: 04/05/2018 HISTORY OF PRESENT ILLNESS: The patient is a 57-year-old was recently transferred to [facility] for wound care and continue antibiotic, but the patient states first of all she was not happy with the care taken as her left foot started to hurt more, so she wanted to come to emergency room for evaluation. Denies any fever or chills. No history of nausea or vomiting. She does state that she missed her dose of antibiotics and she was very concerned about it. However, no history of fever. No chills. No nausea or vomiting. Complain of feeling tired and generalized weakness. PAST MEDICAL HISTORY: Significant for: 1. Hypertension. 2. Insulin-dependent diabetes. 3. Acute on chronic renal failure. 4. Hyperlipidemia. 5. Charcot's foot. 6. Recent bacteremia, status post initially left foot abscess I and D followed by [facility] and has been getting hyperbaric treatments and IV antibiotics since her amputated stump had patches of osteomyelitis. ALLERGIES: SHE IS ALLERGIC TO: 1. IODINE. 2. IODINE CONTAINING . 3. THEOPHYLLINE. 4. TEFLARO. MEDICATION AT HOME: She is on Lasix Sunday, Sunday and Sunday. She is on Humalog mix. She is on Singulair. She is on Pamelor, Protonix, and Seroquel. SOCIAL HISTORY: She is and lives with her . She used to be heavy smoker and socially drinks. PHYSICAL EXAMINATION: GENERAL: She is awake, alert, able to communicate and very anxious. VITAL SIGNS: She is afebrile, pulse 80, respirations 18, and blood pressure 108/58. LUNGS: Bilateral fair airflow. No rhonchi or crackle. HEART: S1 and S2 audible. ABDOMEN: Soft, obese and nontender. No rebound. No guarding. NEUROLOGIC: She is awake, alert, oriented and communicative. EXTREMITIES: Left foot is in the dressing. LABORATORY DATA: WBC is 8.8, hemoglobin 8.2, hematocrit 26.5 and platelets 334. PT 14 and INR 1.21. Chemistry; sodium 133, potassium 5.2, chloride 101, CO2 of 25, BUN 51, creatinine 2.2, and blood sugar of 285. LFTs are within normal limits. Urine shows small leukocyte and WBC 15 to 20. ASSESSMENT: 1. Left stump pain, status post transmetatarsal amputation. 2. Hypertension. 3. Hyperlipidemia. 4. Insulin-dependent diabetes. 5. [id number] renal failure. 6. Status post left Charcot foot. PLAN: The patient will be readmitted, we will start antibiotic, and Podiatry to evaluate the patient's wound. financial services education consultant will be involved to make arrangement for subacute rehab where we can give her antibiotic. We will follow up this patient. Colt Zhu MD
[2018-04-05] MEDS ORDERED: QUEtiapine 50 mg XR Tab PO SCH (22:00)
== END 2018-04-05 13:02 | disposition home or self-care (01) ==
LOC: ED 09:30 → UNDOADMOB 11:26 → ERH 11:26 → UNDOADMIN 11:26 → ED 13:02
DX: R52 Pain, unspecified (principal); I12.9 Hypertensive chronic kidney disease with stage 1 through stage 4 chronic kidney disease, or unspecified chronic kidney disease; N18.9 Chronic kidney disease, unspecified; E11.9 Type 2 diabetes mellitus without complications; E78.5 Hyperlipidemia, unspecified; Z79.4 Long term (current) use of insulin; Z87.891 Personal history of nicotine dependence; J44.9 Chronic obstructive pulmonary disease, unspecified; I50.9 Heart failure, unspecified
CPT/HCPCS: 71045; 80053; 81001; 82150; 82550; 83615; 83690; 84484; 85025; 85610; 85730; 87086; 93005; 96374; 99283; J1885

== ENCOUNTER 2018-04-06 18:30 | Observation (INO) | payer MEDICARE, OTHER ==
--- NOTE | 2018-04-06 19:05 | ED PDOC ---
Arrival/HPI - General Historian: Patient - History of Present Illness Narrative History of Present Illness (Text): 04/06/18 18:48 57 y/o female, pmh including htn/ckd/osteomylitis with amputated lt. foot toe, allergic to cephalosporin/theophylline, c/o doesn't feel well at home and stated that her kidney is shutting down. Pt. is from subacute rehab home for lt. foot toe amputation, discharge to subacute rehab and on chronic IV antibiotic, stated that she feels her body doesn't feel right, feeling like her potassium is high so she is send to the ER for evaluation. Pt. has no chest pain or shortness of breath, no night sweat, no numbness or tingling, no other medical or psychological complaints. <Brant Beckford - Last Filed: 04/06/18 23:16> Past Medical History - Provider Review Nursing Documentation Reviewed: Yes - Infectious Disease Hx of Infectious Diseases: None - Tetanus Immunization Tetanus Immunization: Unknown - Cardiac Hx Cardiac Disorders: Yes (coronary stent.) Hx Congestive Heart Failure: Yes Hx Hypertension: Yes - Pulmonary Hx Chronic Obstructive Pulmonary Disease (COPD): Yes - Neurological Hx Neurological Disorder: Yes Hx Dizziness: Yes - HEENT Hx HEENT Disorder: Yes (EPISTAXIS) Hx Epistaxis: Yes - Renal Hx Renal Failure: Yes - Endocrine/Metabolic Hx Diabetes Mellitus Type 2: Yes - Hematological/Oncological Hx Blood Transfusions: Yes Hx Blood Transfusion Reaction: No - Integumentary Hx Dermatological Disorder: Yes Hx Cellulitis: Yes - Musculoskeletal/Rheumatological Hx Arthritis: Yes - Gastrointestinal Hx Gastrointestinal Disorders: Yes Other/Comment: hernia - Genitourinary/Gynecological Other/Comment: Endometriosis - Psychiatric Hx Psychophysiologic Disorder: Yes Hx Anxiety: Yes Hx Depression: Yes Hx Substance Use: No - Surgical History Hx Mastectomy: No - Anesthesia Hx Anesthesia Reactions: No Hx Malignant Hyperthermia: No - Suicidal Assessment Feels Threatened In Home Enviroment: No <Brant Beckford - Last Filed: 04/06/18 23:16> Family/Social History - Physician Review Nursing Documentation Reviewed: Yes Family/Social History: Unknown Family HX Smoking Status: Former Smoker Hx Alcohol Use: No Hx Substance Use: No Hx Substance Use Treatment: No <Brant Beckford - Last Filed: 04/06/18 23:16> Allergies/Home Meds <Brent Buck - Last Filed: 04/06/18 20:56> <Brant Beckford Q - Last Filed: 04/06/18 23:16> Allergies/Adverse Reactions: Allergies Iodine and Iodide Containing Produc Allergy (Intermediate, Verified 04/05/18 09:35) URTICARIA ceftaroline fosamil [From Teflaro] Allergy (Verified 04/05/18 09:35) ITCHING theophylline Allergy (Verified 04/05/18 09:35) NAUSEA Home Medications: Home Meds Medication Instructions Recorded Confirmed Montelukast [Singulair] 10 mg PO DAILY 11/29/16 04/05/18 Pantoprazole [Protonix EC Tab] 20 mg PO DAILY 11/29/16 04/05/18 QUEtiapine [Seroquel XR] 100 mg PO HS 11/29/16 04/05/18 tiZANidine [Zanaflex] 2 mg PO Q6 11/22/17 04/05/18 Furosemide [Lasix] 40 mg PO .SUN, AND Sunday03/14/18 04/05/18 Promethazine HCl/Codeine 5 ml PO TID PRN 03/14/18 04/05/18 [Prometh-Codein 6.25-10 mg/5 ml] Methylphenidate HCl [Ritalin] 5 mg PO DAILY 03/15/18 04/05/18 Review of Systems - Review of Systems Constitutional: Fatigue. absent: Fevers ENT: absent: Hearing Changes Respiratory: absent: SOB, Cough Cardiovascular: absent: Chest Pain Gastrointestinal: absent: Abdominal Pain, Nausea, Vomiting Musculoskeletal: absent: Arthralgias, Back Pain Skin: absent: Rash, Pruritis Neurological: absent: Headache, Dizziness Psychiatric: absent: Anxiety, Depression, Suicidal Ideation <Brant Beckford - Last Filed: 04/06/18 23:16> Physical Exam Vital Signs Temp Pulse Resp BP Pulse Ox 04/06/18 18:31 98.1 F 61 20 102/65 100 <Brent Buck - Last Filed: 04/06/18 20:56> Vital Signs Reviewed: Yes Temperature: Afebrile Blood Pressure: Normal Pulse: Regular Respiratory Rate: Normal Appearance: Positive for: Well-Appearing, Non-Toxic, Comfortable Pain Distress: None Mental Status: Positive for: Alert and Oriented X 3 - Systems Exam Head: Present: Atraumatic, Normocephalic Pupils: Present: PERRL Extroacular Muscles: Present: EOMI Conjunctiva: Present: Normal Mouth: Present: Moist Mucous Membranes Neck: Present: Normal Range of Motion Respiratory/Chest: Present: Clear to Auscultation, Good Air Exchange. No: Respiratory Distress, Accessory Muscle Use Cardiovascular: Present: Regular Rate and Rhythm, Normal S1, S2. No: Murmurs Abdomen: No: Tenderness, Distention, Peritoneal Signs Back: Present: Normal Inspection Upper Extremity: Present: Normal Inspection. No: Cyanosis, Edema Lower Extremity: Present: Normal Inspection, Other (Lt. foot dressing noted. ). No: Edema Neurological: Present: GCS=15, CN II-XII Intact, Speech Normal Skin: Present: Warm, Dry, Normal Color. No: Rashes Psychiatric: Present: Alert, Oriented x 3, Normal Insight, Normal Concentration <Brant Beckford Q - Last Filed: 04/06/18 23:16> Medical Decision Making - Lab Interpretations Lab Results: 04/06/18 20:04 04/06/18 20:04 Lab Results 04/06/18 20:07: Urine Color Yellow, Urine Appearance Sl cloudy, Urine pH 7.0, Ur Specific Midnight 1.010, Urine Protein 100 H, Urine Glucose (UA) Negative, Urine Ketones Negative, Urine Blood Negative, Urine Nitrate Negative, Urine Bilirubin Negative, Urine Urobilinogen 0.2, Ur Leukocyte Esterase Trace H, Urine RBC Negative, Urine WBC 5 - 10, Ur Epithelial Cells 4 - 5, Urine Bacteria Few 04/06/18 20:04: WBC 10.0, RBC 2.69 L, Hgb 7.7 L, Hct 24.7 L, MCV 91.8, MCH 28.6, MCHC 31.2, RDW 15.0 H, Plt Count 360, MPV 11.1 H, Gran % 66.4, Lymph % (Auto) 20.3 L, [place] % (Auto) 8.2 H, Eos % (Auto) 4.4, Baso % (Auto) 0.7, Gran # 6.62 H, Lymph # (Auto) 2.0, [place] # (Auto) 0.8 H, Eos # (Auto) 0.4, Baso # (Auto) 0.07 04/06/18 20:04: Salicylates 1 L, Acetaminophen < 10.0 L 12/15/18 20:04: Sodium Pending, Potassium Pending, Chloride Pending, Carbon Dioxide Pending, Anion Gap Pending, BUN Pending, Creatinine Pending, Est GFR ( Amer) Pending, Est GFR (Non-Af Amer) Pending, Random Glucose Pending, Calcium Pending, Magnesium Pending, Total Bilirubin Pending, AST Pending, ALT Pending, Alkaline Phosphatase Pending, Total Creatine Kinase Pending, Troponin I 0.04, Total Protein Pending, Albumin Pending, Globulin Pending, Albumi n/Globulin Ratio Pending, Lipase Pending - RAD Interpretation Radiology Orders: 04/06/18 19:07 CHEST TWO VIEWS (PA/LAT) [RAD] Stat ABD 2 VIEWS (FLAT/UP OR DECUB) [RAD] Stat - Medication Orders Current Medication Orders: Sodium Chloride (Sodium Chloride 0.9%) 1,000 mls @ 100 mls/hr IV .Q10H MAMADOU Last Admin: 04/06/18 20:00 Dose: 100 mls/hr eMAR Start Stop Document 04/06/18 20:00 RD (Rec: 04/06/18 20:12 RD [id number]) Intravenous Solution Start Date 04/06/18 Start Time 20:12 <Brent Buck - Last Filed: 04/06/18 20:56> ED Course and Treatment: 04/06/18 19:12 -Labs -ua -xrays -ekg -observe and reassess 04/06/18 21:24 -EKG: NSR @ 60 BPM, no ST elevation or depression, no T wave inversion. -Labs show no acute findings except hgb 7.7 from 8.2 (1 unit of PRBC ordered), Na 130 from 133, K+ 5.8 from 5.2, BUN 54 from 51, Creatine 2.3 from 2.2, Troponin 0.04 from 0.05/0.01 (no cardiopulmonary complaints, aspirin ordered) -UA ordered and pending result -Chest xrays show no active disease -Abd xrays show constipation without obstruction -Aspirin 325mg po/insulin 10 unit/d50 ordered/albuterol/Kayaxylate 30gm ordered, she needs to be admitted for acute on CKD with elevated potassium/elevated troponin/anemia. Miralax po ordered as well. -I discussed with the patient about all results, she agreed to be admitted. -Paging Dr. Zhu for admission. -Pt. refused guaiac exam, stated that she doesn't have any black or stool discoloration, stated that she has chronic anemia and had transfusion in the past 04/06/18 21:41 -I spoke to the pmd DR. Zhu, discussed about the case/labs/radiology result and treatment, she request to admit to her service and she would continue the care including specialist consult. 04/06/18 23:16 -I was noted by the COMPENSATION SUPERVISOR that the FS is 40s, D50 ordered. - RAD Interpretation Video Control Operator: Radiologist - EKG Interpretation EKG Interpretation (Text): 04/06/18 20:19 EKG: NSR @ 60 BPM, no ST elevation or depression, no T wave inversion. Interpreted by ED Physician: Yes Type: 12 lead EKG <Brant Beckford - Last Filed: 04/06/18 23:16> - PA / [employer] / Resident Statement DARLING has reviewed & agrees with the documentation as recorded. DARLING has examined the patient and agrees with the treatment plan. <Brent Buck - Last Filed: 04/06/18 20:56> - PA / [employer]TERY ASSEM[employer] / Resident Statement DARLING has reviewed & agrees with the documentation as recorded. DARLING has examined the patient and agrees with the treatment plan. <Brant Beckford - Last Filed: 04/06/18 23:16> Disposition/Present on Arrival <Brent Buck - Last Filed: 04/06/18 20:56> - Present on Arrival Any Indicators Present on Arrival: No History of DVT/PE: No History of Uncontrolled Diabetes: No Urinary Catheter: No History of Decub. Ulcer: No History Surgical Site Infection Following: None - Disposition Have Diagnosis and Disposition been Completed?: Yes Disposition Time: 21:41 Patient Plan: Observation, Telemetry <Brant Beckford - Last Filed: 04/06/18 23:16> - Disposition Diagnosis: Hyperkalemia, Acute on chronic renal failure, Elevated troponin, Anemia, Constipation Disposition: HOSPITALIZED Patient Problems: Current Active Problems Problem Status Onset Anemia Acute Hyperkalemia Acute Acute on chronic renal failure Acute Elevated troponin Acute Constipation Acute Condition: STABLE
[2018-04-06] MEDS ORDERED: Sodium Chloride 0.9% 1,000 ML IV SCH (19:15)
[2018-04-06 20:27] LABS: URINE BILIRUBIN NEGATIVE (NEGATIVE); URINE BLOOD NEGATIVE (NEGATIVE); URINE GLUCOSE (UA) NEGATIVE (NEGATIVE); URINE LEUKOCYTE ESTERASE TRACE Leu/uL (NEGATIVE); URINE PROTEIN 100 mg/dL (<30 mg/dL); URINE UROBILINOGEN 0.2 E.U./dL (<1 E.U./dL)
[2018-04-06 20:28] LABS: BASO # 0.07 K/mm3 (0.0-2.0); BASO % 0.7 % (0.0-3.0); EOS # 0.4 (0.0-0.7); EOS % 4.4 % (1.5-5.0); GRAN # 6.62 (1.4-6.5); GRAN % 66.4 % (50.0-68.0); HEMOGLOBIN 7.7 g/dL (12.0-16.0); LYMPH % 20.3 % (22.0-35.0); MEAN CELL VOLUME 91.8 fl (80.0-105.0); MEAN CORPUSCULAR HEMOGLOBIN 28.6 pg (25.0-35.0); MEAN CORPUSCULAR HGB CONC 31.2 g/dl (31.0-37.0); MEAN PLATELET VOLUME 11.1 fl (7.0-11.0); MONO # 0.8 (0.1-0.6); MONO % 8.2 % (1.0-6.0); RBC 2.69 10^6/uL (3.5-6.1)
[2018-04-06 20:33] LABS: URINE APPEARANCE SL CLOUDY (CLEAR); URINE COLOR YELLOW (YELLOW)
[2018-04-06 20:34] LABS: ACETAMINOPHEN < 10.0 ug/ml (10.0-20.0); SALICYLATE 1 mg/dL (2.0-20.0)
[2018-04-06 20:43] LABS: TROPONIN I 0.04 ng/mL
[2018-04-06 20:44] LABS: URINE BACTERIA FEW (NEG); URINE RBC NEGATIVE /hpf (0-2)
[2018-04-06 21:10] LABS: ALB/GLOB RATIO 0.8 (1.1-1.8); ALBUMIN 3.1 g/dL (3.0-4.8)
[2018-04-06] MEDS ORDERED: Dextrose 50% SYRINGE Inj (50 ml) IVP STA ×2 (21:18→23:15)
[2018-04-06] MEDS ORDERED: Sod Polystyrene Sulf 15 gm/60 ml Susp PO STA (21:18)
[2018-04-06] MEDS ORDERED: Insulin Regular 1 UNITS/0.01 ML ML IV STA (21:18)
[2018-04-06] MEDS ORDERED: Albuterol 0.083% Inhal Sol (2.5 mg/3 mL) UD INH STA (21:18)
[2018-04-06] MEDS ORDERED: POLYETHYLENE GLYCOL 3350 17 GM/Dose PACKET PO STA (21:21)
[2018-04-06 21:34] LABS: INR 1.29; PARTIAL THROMBOPLASTIN TIME 31.5 Seconds (25.1-36.5); PROTHROMBIN TIME 14.8 SECONDS (9.4-12.5)
[2018-04-06] MEDS ORDERED: MEROPENEM 500 MG in NS 500 MG/50 ML BAG IVPB SCH (22:00)
[2018-04-07] MEDS: QUEtiapine 50 mg XR Tab PO SCH ×2 (00:37→21:24)
[2018-04-07 03:56] VITALS: BMI 27.4
--- NOTE | 2018-04-07 04:56 | HP ---
DATE OF EXAM: 04/06/2018 HISTORY OF PRESENT ILLNESS: The patient is a 57-year-old came to emergency room not feeling well, generalized weakness, and feeling tired. The patient was recently transferred to [facility] for physical therapy, completion of course of antibiotics for left foot osteomyelitis and also to get hyperbaric treatment as outpatient. The patient since discharge yesterday in the hospital outpatient department for hyperbaric treatment and not feeling well she was transferred to emergency room for further evaluation. The patient was admitted on 03/14/2018 because of high-grade fever, increase pain, swelling, and worsening ulcer on her left foot. The patient was being treated as outpatient for Charcot foot disease and Dr. Little when evaluated wound on 03/14/2018, who referred her to emergency room. The patient was found to be bacteremic. She had emergency I and D done and later on she was found to persistent bacteremia of Staphylococcus aureus, so the patient was started on meropenem and she also went into kidney failure, sepsis, she was admitted in ICU and she received emergency dialysis couple of times and fluid was taken out and the patient improved and she was transferred to [place] to complete her 3 weeks of antibiotics. PAST MEDICAL HISTORY: Significant for: 1. Insulin-dependent diabetes. 2. Hypertension. 3. Acute on chronic renal failure. 4. Charcot foot. 5. Chronic anemia. ALLERGIES: SHE IS ALLERGIC TO IODINE AND IODINE-CONTAINING PRODUCTS, TEFLARO, CEFTAROLINE AND THEOPHYLLINE. MEDICATIONS AT HOME: She is on Seroquel 100 mg at bedtime, Protonix 120 daily, Pamelor 50 mg at bedtime, 10 mg daily, 75/25 Lispro insulin 18 unit before breakfast and dinner, and Lasix 40 mg Sunday, Sunday and Sunday. SOCIAL HISTORY: She used to be heavy smoker. Socially drinks. She is , lives with her . PHYSICAL EXAMINATION GENERAL: She is awake, alert, oriented, communicative, looks pale. VITAL SIGNS: She is afebrile, pulse 60, respiratory rate 18, blood pressure 114/49. LUNGS: Bilateral fair airflow. No rhonchi or crackle. HEART: S1, S2 audible. ABDOMEN: Soft, obese, nontender. No rebound. No guarding. NEUROLOGIC: She is awake, alert, oriented able to communicate. Left foot in the dressing recently has transmetatarsal amputation followed by graft placement and the stump. LABORATORY DATA: WBC 10, hemoglobin 7.7, hematocrit 24.7, platelets of 360. PT 14.8, INR 1.09. Chemistry: Sodium 130, potassium 5.8, chloride 99, CO2 of 26, BUN 54, creatinine 2.6, blood sugar 125. Leukocyte esterase trace. ASSESSMENT: 1. Symptomatic anemia. 2. Status post left foot transmetatarsal amputation and did not have osteomyelitis. 3. Insulin-dependent diabetes. 4. Hypertension. 5. Acute on chronic renal failure. PLAN: The patient transfuse packed RBCs, resume her medications, give her dose of Kayexalate. Monitor CBC, CMP in a.m. Monitor blood sugar. ID consult by Dr. Kent and Podiatry consult by Dr. Little has been requested. Colt Zhu MD
[2018-04-07] MEDS: Pantoprazole 20 mg EC Tab PO SCH (05:34)
--- NOTE | 2018-04-07 06:49 | HP ---
DATE OF EXAM: 04/06/2018 HISTORY OF PRESENT ILLNESS: The patient is 57-year-old, came to emergency room, not feeling well, generalized weakness and feeling tired. The patient was recently transferred to [facility] for physical therapy, completion of course of antibiotic for her left foot osteomyelitis and also to get hyperbaric treatment as an outpatient. The patient since discharge yesterday in the hospital outpatient department for hyperbaric treatment and not feeling well, she was transferred to emergency room for further evaluation. The patient was admitted on 03/14/2018 because of high-grade fever and increasing pain, swelling and worsening ulcer on her left foot. The patient was being treated as an outpatient for Charcot foot disease and Dr. Little when evaluated wound on 03/14/2018, who referred her to emergency room. The patient was found to be bacteremic. She had emergency I and D done and later on she was found to have persistent bacteremia, Staphylococcus aureus, so the patient was started on meropenem. She also went into acute kidney failure, sepsis and she was admitted in ICU and she received emergency dialysis couple of times and fluid was taken out and the patient improved. She was transferred to [facility] to complete her three weeks of antibiotics. PAST MEDICAL HISTORY: Significant for: 1. Insulin-dependent diabetes. 2. Hypertension. 3. Acute on chronic renal failure. 4. Charcot's foot. 5. Chronic anemia. ALLERGIES: SHE IS ALLERGIC TO IODINE AND IODINE-CONTAINING PRODUCTS, TEFLARO, CEFTAROLINE AND THEOPHYLLINE. HOME MEDICATIONS: She is on Seroquel 100 mg at bedtime, Protonix mg at bedtime, Singulair 10 mg daily, 75/25 Lispro insulin 18 units before breakfast and dinner, and Lasix 40 mg Sunday, Sunday and Sunday. SOCIAL HISTORY: She used to be heavy smoker. Socially drinks. She is , lives with her . PHYSICAL EXAMINATION: GENERAL: She is alert, awake, oriented and communicative. VITAL SIGNS: She is afebrile, pulse 68, respirations 18 and blood pressure 114/49. LUNGS: Bilateral fair airflow. No rhonchi or crackle. HEART: S1 and S2, audible. ABDOMEN: Soft, obese and nontender. No rebound. No guarding. NEUROLOGIC: She is awake, alert, oriented and able to communicate. EXTREMITIES: Left foot is in the dressing. Recently has transmetatarsal amputation followed by graft placement and the stump. LABORATORY DATA: WBC is 10, hemoglobin 7.7, hematocrit 24.7, and platelets of 360. PT 14.8, INR 1.29. Chemistry; sodium 130, potassium 5.8, chloride 99, CO2 of 26, BUN 54, creatinine 2.6, blood sugar 145. Leukocyte esterase trace. ASSESSMENT: 1. Symptomatic anemia. 2. Status post left foot transmetatarsal amputation and osteomyelitis. 3. Insulin-dependent diabetes. 4. Hypertension. 5. [id number] renal failure. PLAN: The patient will be transfused 2 packed RBCs. We will resume her medication, give her dose of Kayexalate. Monitor her CBC and CMP in a.m. Monitor her blood sugars. ID consult by Dr. Kent and Podiatry consult by Dr. Little has been requested. Colt Zhu MD
[2018-04-07 07:20] LABS: BASO # 0.06 K/mm3 (0.0-2.0); BASO % 0.8 % (0.0-3.0); EOS # 0.5 (0.0-0.7); GRAN # 4.98 (1.4-6.5); GRAN % 64.9 % (50.0-68.0); LYMPH # 1.7 (1.2-3.4); LYMPH % 21.8 % (22.0-35.0); MEAN CELL VOLUME 89.6 fl (80.0-105.0); MEAN CORPUSCULAR HEMOGLOBIN 28.3 pg (25.0-35.0); MEAN CORPUSCULAR HGB CONC 31.6 g/dl (31.0-37.0); MEAN PLATELET VOLUME 11.4 fl (7.0-11.0); MONO # 0.5 (0.1-0.6); MONO % 6.5 % (1.0-6.0); RBC 3.18 10^6/uL (3.5-6.1); RED CELL DISTRIBUTION WIDTH 15.8 % (11.5-14.5); WHITE BLOOD COUNT 7.7 10^3/uL (4.5-11.0)
[2018-04-07 08:07] LABS: ALB/GLOB RATIO 0.8 (1.1-1.8); ALBUMIN 2.9 g/dL (3.0-4.8); CALCIUM 8.9 mg/dL (8.4-10.5)
[2018-04-07] MEDS: Insulin Lispro (humaLOG) MIX 75/25(10 ml) SC SCH ×2 (08:36→17:09)
[2018-04-07] MEDS: Insulin Lispro (HUMAlog) HIGH Coverage SC SCH ×4 (08:37→21:37)
--- NOTE | 2018-04-07 09:09 | RAD ---
Date of service: 04/06/2018 HISTORY: lt. sided pain COMPARISON: None available. FINDINGS: BOWEL: Nonobstructive bowel gas pattern. Severe constipation. No definite free air. BONES: Degenerative changes. OTHER FINDINGS: Discoid atelectasis, left lung base. IMPRESSION: Severe constipation.
--- NOTE | 2018-04-07 09:10 | RAD ---
HISTORY: lt. sided pain COMPARISON: Chest x-ray performed 04/05/18 TECHNIQUE: Chest PA and lateral FINDINGS: Examination limited by habitus. Right-sided PICC extends the cavoatrial junction. LUNGS: Discoid atelectasis, left lung base. Please note that chest x-ray has limited sensitivity for the detection of pulmonary masses. PLEURA: No significant pleural effusion identified. No definite pneumothorax . CARDIOVASCULAR: Cardiomegaly. No atherosclerotic calcification present. OSSEOUS STRUCTURES: Mild degenerative changes. VISUALIZED UPPER ABDOMEN: Unremarkable. OTHER FINDINGS: None. IMPRESSION: Right-sided PICC extends expected location of the cavoatrial junction. Cardiomegaly. Discoid atelectasis, left lung base.
[2018-04-07] MEDS: MEROPENEM 500 MG in NS 500 MG/50 ML BAG IVPB SCH ×2 (10:05→21:24)
--- NOTE | 2018-04-07 11:24 | CP.PCM.CON ---
History of Present Illness - History of Present Illness History of Present Illness: 57 year old female with PMH of history of sepsis due to left foot skin and skin structure infection without evidence of osteomyelitis on MRI, growing MSSA from the wound, chronic renal failure, history of sepsis due to abdominal wall ab scess S/P I and D, grew MSSA, history of sepsis due to UTI with E. coli which is resistant to many antibiotics but sensitive to Imipenem (but not ESBL- producing), COPD, fibromyalgia, history of UTI's, restless leg syndrome, history of pneumonia, HTN, chronic CHF, DM, history of kidney stones, history of endometriosis, S/P oophorectomy, history of cellulitis of lower extremities was recently admitted in [facility] because of severe sepsis from MSSA bacteremia with severe left foot infection with gangrene and osteomyelitis. She underwent TMA and has been doing well and was transferred to [facility] where she was to undergo physical therapy and continue antibiotic therapy. However, she was having generalized weakness, vague abdominal pains. She denies fever or chills, no nausea or vomiting, no chest pain, no SOB, no headache or dizziness, no cough or rhinorrhea, no sore throat. Infectious Diseases consult is requested for antibiotic management. Review of Systems - Review of Systems All systems: reviewed and no additional remarkable complaints except (as per HPI) Past Patient History - Infectious Disease Hx of Infectious Diseases: None - Tetanus Immunizations Tetanus Immunization: Unknown - Past Medical History & Family History Past Medical History?: Yes - Past Social History Smoking Status: Never Smoked - CARDIAC Hx Cardiac Disorders: Yes (coronary stent.) Hx Congestive Heart Failure: Yes Hx Hypertension: Yes - PULMONARY Hx Chronic Obstructive Pulmonary Disease (COPD): Yes - NEUROLOGICAL Hx Neurological Disorder: Yes Hx Dizziness: Yes - HEENT Hx HEENT Problems: Yes (EPISTAXIS) Hx Epistaxis: Yes - RENAL Hx Renal Failure: Yes - ENDOCRINE/METABOLIC Hx Diabetes Mellitus Type 2: Yes - HEMATOLOGICAL/ONCOLOGICAL Hx Cancer: No - INTEGUMENTARY Hx Dermatological Problems: Yes - MUSCULOSKELETAL/RHEUMATOLOGICAL Hx Arthritis: Yes Hx Falls: Yes - GASTROINTESTINAL Hx Gastrointestinal Disorders: Yes Other/Comment: hernia - GENITOURINARY/GYNECOLOGICAL Other/Comment: Endometriosis - PSYCHIATRIC Hx Psychophysiologic Disorder: Yes Hx Anxiety: Yes Hx Depression: Yes - SURGICAL HISTORY Hx Amputation: Yes Hx Mastectomy: No - ANESTHESIA Hx Anesthesia Reactions: No Hx Malignant Hyperthermia: No Meds Allergies/Adverse Reactions: Allergies Allergy/AdvReac Type Severity Reaction Status Date / Time Iodine and Iodide Containing Allergy Intermediate URTICARIA Verified 04/05/18 09:35 Produc ceftaroline fosamil Allergy ITCHING Verified 04/05/18 09:35 [From Teflaro] theophylline Allergy NAUSEA Verified 04/05/18 09:35 - Medications Medications: Current Medications Insulin Human Lispro (Humalog High) 0 units SC ACHS M[facility]; Protocol Insulin Lispro Protam/Lispro Human (Humalog Mix 75/25) 18 units SC ACBD [facility] Montelukast Sodium (Singulair) 10 mg PO DAILY [facility] Nortriptyline HCl (Pamelor) 50 mg PO HS [facility] Last Admin: 04/07/18 00:36 Dose: 50 mg Pantoprazole Sodium (Protonix Ec Tab) 20 mg PO 0600 [facility] Last Admin: 04/07/18 05:34 Dose: 20 mg Quetiapine Fumarate (Seroquel Xr) 100 mg PO HS [facility]; Protocol Last Admin: 04/07/18 00:37 Dose: 100 mg Physical Exam - Constitutional Appears: Chronically Ill - Head Exam Head Exam: NORMAL INSPECTION - Neck Exam Neck exam: Negative for: Meningismus - Respiratory Exam Respiratory Exam: Decreased Breath Sounds - Cardiovascular Exam Cardiovascular Exam: +S1, +S2 - GI/Abdominal Exam GI & Abdominal Exam: Soft. absent: Tenderness - Extremities Exam Additional comments: left foot with dressings in place; right arm PICC line in place Results - Vital Signs Recent Vital Signs: Last Vital Signs Temp 98.4 F 04/07/18 02:34 Pulse 84 04/07/18 02:34 Resp 18 04/07/18 02:34 BP 105/60 04/07/18 02:34 Pulse Ox 97 04/07/18 00:01 - Labs Result Diagrams: 04/07/18 06:45 04/07/18 06:45 Labs: Laboratory Results - last 24 hr 04/06/18 04/06/18 04/06/18 20:04 20:04 20:04 WBC 10.0 RBC 2.69 L Hgb 7.7 L Hct 24.7 L MCV 91.8 MCH 28.6 MCHC 31.2 RDW 15.0 H Plt Count 360 MPV 11.1 H Gran % 66.4 Lymph % (Auto) 20.3 L [place] % (Auto) 8.2 H Eos % (Auto) 4.4 Baso % (Auto) 0.7 Gran # 6.62 H Lymph # (Auto) 2.0 [place] # (Auto) 0.8 H Eos # (Auto) 0.4 Baso # (Auto) 0.07 PT INR APTT Sodium 130 L Potassium 5.8 H* Chloride 99 Carbon Dioxide 26 Anion Gap 11 BUN 54 H Creatinine 2.3 H Est GFR ( Amer) 27 Est GFR (Non-Af Amer) 22 POC Glucose (mg/dL) Random Glucose 145 H Calcium 9.0 Magnesium 2.1 Total Bilirubin 0.4 AST 21 ALT 24 Alkaline Phosphatase 98 Total Creatine Kinase 43 Troponin I 0.04 Total Protein 6.8 Albumin 3.1 Globulin 3.8 Albumin/Globulin Ratio 0.8 L Lipase 130 Urine Color Urine Appearance Urine pH Ur Specific [place] Urine Protein Urine Glucose (UA) Urine Ketones Urine Blood Urine Nitrate Urine Bilirubin Urine Urobilinogen Ur Leukocyte Esterase Urine RBC Urine WBC Ur Epithelial Cells Urine Bacteria Salicylates 1 L Acetaminophen < 10.0 L Blood Type Antibody Screen Crossmatch BBK History Checked 04/06/18 04/06/18 04/06/18 20:04 20:07 22:30 WBC RBC Hgb Hct MCV MCH MCHC RDW Plt Count MPV Gran % Lymph % (Auto) [place] % (Auto) Eos % (Auto) Baso % (Auto) Gran # Lymph # (Auto) [place] # (Auto) Eos # (Auto) Baso # (Auto) PT 14.8 H INR 1.29 APTT 31.5 Sodium Potassium Chloride Carbon Dioxide Anion Gap BUN Creatinine Est GFR ( Amer) Est GFR (Non-Af Amer) POC Glucose (mg/dL) Random Glucose Calcium Magnesium Total Bilirubin AST ALT Alkaline Phosphatase Total Creatine Kinase Troponin I Total Protein Albumin Globulin Albumin/Globulin Ratio Lipase Urine Color Yellow Urine Appearance Sl cloudy Urine pH 7.0 Ur Specific [place] 1.010 Urine Protein 100 H Urine Glucose (UA) Negative Urine Ketones Negative Urine Blood Negative Urine Nitrate Negative Urine Bilirubin Negative Urine Urobilinogen 0.2 Ur Leukocyte Esterase Trace H Urine RBC Negative Urine WBC 5 - 10 Ur Epithelial Cells 4 - 5 Urine Bacteria Few Salicylates Acetaminophen Blood Type A POSITIVE Antibody Screen Negative Crossmatch See Detail BBK History Checked Patient has bt 04/06/18 04/06/18 23:08 23:27 WBC RBC Hgb Hct MCV MCH MCHC RDW Plt Count MPV Gran % Lymph % (Auto) [place] % (Auto) Eos % (Auto) Baso % (Auto) Gran # Lymph # (Auto) [place] # (Auto) Eos # (Auto) Baso # (Auto) PT INR APTT Sodium Potassium Chloride Carbon Dioxide Anion Gap BUN Creatinine Est GFR ( Amer) Est GFR (Non-Af Amer) POC Glucose (mg/dL) 45 L 157 H Random Glucose Calcium Magnesium Total Bilirubin AST ALT Alkaline Phosphatase Total Creatine Kinase Troponin I Total Protein Albumin Globulin Albumin/Globulin Ratio Lipase Urine Color Urine Appearance Urine pH Ur Specific [place] Urine Protein Urine Glucose (UA) Urine Ketones Urine Blood Urine Nitrate Urine Bilirubin Urine Urobilinogen Ur Leukocyte Esterase Urine RBC Urine WBC Ur Epithelial Cells Urine Bacteria Salicylates Acetaminophen Blood Type Antibody Screen Crossmatch BBK History Checked Assessment & Plan - Assessment and Plan (Free Text) Plan: Assessment Methicillin-sensitive Staph aureus bacteremia from left foot abscess and severe skin/skin structure infection of the left foot S/P I and D and debridement and left TMA history of sepsis due to left foot skin and skin structure infection without evidence of osteomyelitis on MRI, growing MSSA from the wound chronic renal failure history of sepsis due to abdominal wall abscess S/P I and D, grew MSSA history of sepsis due to UTI with E. coli which is resistant to many antibiotics but sensitive to Imipenem (but not ESBL-producing) COPD fibromyalgia history of UTI's restless leg syndrome history of pneumonia HTN chronic CHF DM history of kidney stones history of endometriosis S/P oophorectomy history of cellulitis of lower extremities Plan continue Merrem and we 3 more weeks from 03/27/2018 with weekly ESR, CRP, CBC, CMP while on antibiotics to be monitored by PMD - fax results to PMD's office follow up further plans of Podiatry
--- NOTE | 2018-04-07 11:46 | CP.PCM.CON ---
History of Present Illness - History of Present Illness History of Present Illness: Podiatry consult note for Dr. Carvajal: 56F patient, with PMHx of COPD, obesity, fibromyalgia, restless leg syndrome, HTN, chronic CHF, DM, Diabetic neuropathy, Charcot foot, seen and evaluated for L foot pain. Patient is well known to Dr. Bills and follows up with her regularly in wound care center for continued care of her L foot. She states that she has been having vague abdominal pain and presented to the ED this visit. She states that she has a significant history of Charcot and has many problems with her L foot. Patient states that per Dr. Conway request the dressing to the L foot is to be left intact until she see's her next. Patient denies N/V/F/SOB however admits to abdominal pain. PMHx: as above PSHx: Oophorectomy, labarotomy, labaroscopy All: ceftaroline fosamil, theophylline Social Hx: denies smoking, EtOH use or illicit drug use. Past Patient History - Infectious Disease Hx of Infectious Diseases: None - Tetanus Immunizations Tetanus Immunization: Unknown - Past Medical History & Family History Past Medical History?: Yes - Past Social History Smoking Status: Never Smoked - CARDIAC Hx Cardiac Disorders: Yes (coronary stent.) Hx Congestive Heart Failure: Yes Hx Hypertension: Yes - PULMONARY Hx Chronic Obstructive Pulmonary Disease (COPD): Yes - NEUROLOGICAL Hx Neurological Disorder: Yes Hx Dizziness: Yes - HEENT Hx HEENT Problems: Yes (EPISTAXIS) Hx Epistaxis: Yes - RENAL Hx Renal Failure: Yes - ENDOCRINE/METABOLIC Hx Diabetes Mellitus Type 2: Yes - HEMATOLOGICAL/ONCOLOGICAL Hx Cancer: No - INTEGUMENTARY Hx Dermatological Problems: Yes - MUSCULOSKELETAL/RHEUMATOLOGICAL Hx Arthritis: Yes Hx Falls: Yes - GASTROINTESTINAL Hx Gastrointestinal Disorders: Yes Other/Comment: hernia - GENITOURINARY/GYNECOLOGICAL Other/Comment: Endometriosis - PSYCHIATRIC Hx Psychophysiologic Disorder: Yes Hx Anxiety: Yes Hx Depression: Yes - SURGICAL HISTORY Hx Amputation: Yes Hx Mastectomy: No - ANESTHESIA Hx Anesthesia Reactions: No Hx Malignant Hyperthermia: No Meds Allergies/Adverse Reactions: Allergies Allergy/AdvReac Type Severity Reaction Status Date / Time Iodine and Iodide Containing Allergy Intermediate URTICARIA Verified 04/05/18 09:35 Produc ceftaroline fosamil Allergy ITCHING Verified 04/05/18 09:35 [From Teflaro] theophylline Allergy NAUSEA Verified 04/05/18 09:35 - Medications Medications: Current Medications Meropenem/Sodium Chloride (Merrem Iv 500 Mg/Ns 50 Ml) 500 mg in 50 mls @ 100 mls/hr IVPB Q12 [facility]; Protocol Stop: 04/14/18 10:01 Last Admin: 04/07/18 10:05 Dose: 100 mls/hr Insulin Human Lispro (Humalog High) 0 units SC ACHS [facility]; Protocol Last Admin: 04/07/18 08:37 Dose: 2 unit Insulin Lispro Protam/Lispro Human (Humalog Mix 75/25) 18 units SC ACBD [facility] Last Admin: 04/07/18 08:36 Dose: 18 unit Montelukast Sodium (Singulair) 10 mg PO DAILY [facility] Last Admin: 04/07/18 10:05 Dose: 10 mg Nortriptyline HCl (Pamelor) 50 mg PO HS [facility] Last Admin: 04/07/18 00:36 Dose: 50 mg Pantoprazole Sodium (Protonix Ec Tab) 20 mg PO 0600 [facility] Last Admin: 04/07/18 05:34 Dose: 20 mg Quetiapine Fumarate (Seroquel Xr) 100 mg PO HS [facility]; Protocol Last Admin: 04/07/18 00:37 Dose: 100 mg Physical Exam - Constitutional Appears: Well, Non-toxic, No Acute Distress - Head Exam Head Exam: ATRAUMATIC, NORMOCEPHALIC - Extremities Exam Additional comments: RLE focused exam, Dressing to L foot left C/D/I per Dr. Bills request: Vasc: DP/PT pulses palpable 2/4, Cap refill < 3 seconds to all digits. TG warm to cool Neuro: Gross and protective sensation diminished Derm: no open lesions to right side, no erythema, no clinical signs of infection Ortho: Muscle power intact 5/5 to all major muscle groups to the right. - Neurological Exam Neurological exam: Alert, Oriented x3 - Psychiatric Exam Psychiatric exam: Normal Affect, Normal Mood Results - Vital Signs Recent Vital Signs: Last Vital Signs Temp 98.4 F 04/07/18 02:34 Pulse 84 04/07/18 02:34 Resp 18 04/07/18 02:34 BP 105/60 04/07/18 02:34 Pulse Ox 97 04/07/18 00:01 - Labs Result Diagrams: 04/07/18 06:45 04/07/18 06:45 Labs: Laboratory Results - last 24 hr 04/06/18 04/06/18 04/06/18 20:04 20:04 20:04 WBC 10.0 RBC 2.69 L Hgb 7.7 L Hct 24.7 L MCV 91.8 MCH 28.6 MCHC 31.2 RDW 15.0 H Plt Count 360 MPV 11.1 H Gran % 66.4 Lymph % (Auto) 20.3 L [place] % (Auto) 8.2 H Eos % (Auto) 4.4 Baso % (Auto) 0.7 Gran # 6.62 H Lymph # (Auto) 2.0 [place] # (Auto) 0.8 H Eos # (Auto) 0.4 Baso # (Auto) 0.07 PT INR APTT Sodium 130 L Potassium 5.8 H* Chloride 99 Carbon Dioxide 26 Anion Gap 11 BUN 54 H Creatinine 2.3 H Est GFR ( Amer) 27 Est GFR (Non-Af Amer) 22 POC Glucose (mg/dL) Random Glucose 145 H Calcium 9.0 Magnesium 2.1 Total Bilirubin 0.4 AST 21 ALT 24 Alkaline Phosphatase 98 Total Creatine Kinase 43 Troponin I 0.04 Total Protein 6.8 Albumin 3.1 Globulin 3.8 Albumin/Globulin Ratio 0.8 L Lipase 130 Urine Color Urine Appearance Urine pH Ur Specific [place] Urine Protein Urine Glucose (UA) Urine Ketones Urine Blood Urine Nitrate Urine Bilirubin Urine Urobilinogen Ur Leukocyte Esterase Urine RBC Urine WBC Ur Epithelial Cells Urine Bacteria Salicylates 1 L Acetaminophen < 10.0 L Blood Type Antibody Screen Crossmatch BBK History Checked 04/06/18 04/06/18 04/06/18 20:04 20:07 22:30 WBC RBC Hgb Hct MCV MCH MCHC RDW Plt Count MPV Gran % Lymph % (Auto) [place] % (Auto) Eos % (Auto) Baso % (Auto) Gran # Lymph # (Auto) [place] # (Auto) Eos # (Auto) Baso # (Auto) PT 14.8 H INR 1.29 APTT 31.5 Sodium Potassium Chloride Carbon Dioxide Anion Gap BUN Creatinine Est GFR ( Amer) Est GFR (Non-Af Amer) POC Glucose (mg/dL) Random Glucose Calcium Magnesium Total Bilirubin AST ALT Alkaline Phosphatase Total Creatine Kinase Troponin I Total Protein Albumin Globulin Albumin/Globulin Ratio Lipase Urine Color Yellow Urine Appearance Sl cloudy Urine pH 7.0 Ur Specific [place] 1.010 Urine Protein 100 H Urine Glucose (UA) Negative Urine Ketones Negative Urine Blood Negative Urine Nitrate Negative Urine Bilirubin Negative Urine Urobilinogen 0.2 Ur Leukocyte Esterase Trace H Urine RBC Negative Urine WBC 5 - 10 Ur Epithelial Cells 4 - 5 Urine Bacteria Few Salicylates Acetaminophen Blood Type A POSITIVE Antibody Screen Negative Crossmatch See Detail BBK History Checked Patient has bt 04/06/18 04/06/18 04/07/18 23:08 23:27 06:45 WBC 7.7 D RBC 3.18 L Hgb 9.0 L Hct 28.5 L MCV 89.6 MCH 28.3 MCHC 31.6 RDW 15.8 H Plt Count 318 MPV 11.4 H Gran % 64.9 Lymph % (Auto) 21.8 L [place] % (Auto) 6.5 H Eos % (Auto) 6.0 H Baso % (Auto) 0.8 Gran # 4.98 Lymph # (Auto) 1.7 [place] # (Auto) 0.5 Eos # (Auto) 0.5 Baso # (Auto) 0.06 PT INR APTT Sodium Potassium Chloride Carbon Dioxide Anion Gap BUN Creatinine Est GFR ( Amer) Est GFR (Non-Af Amer) POC Glucose (mg/dL) 45 L 157 H Random Glucose Calcium Magnesium Total Bilirubin AST ALT Alkaline Phosphatase Total Creatine Kinase Troponin I Total Protein Albumin Globulin Albumin/Globulin Ratio Lipase Urine Color Urine Appearance Urine pH Ur Specific [place] Urine Protein Urine Glucose (UA) Urine Ketones Urine Blood Urine Nitrate Urine Bilirubin Urine Urobilinogen Ur Leukocyte Esterase Urine RBC Urine WBC Ur Epithelial Cells Urine Bacteria Salicylates Acetaminophen Blood Type Antibody Screen Crossmatch BBK History Checked 04/07/18 04/07/18 06:45 07:11 WBC RBC Hgb Hct MCV MCH MCHC RDW Plt Count MPV Gran % Lymph % (Auto) [place] % (Auto) Eos % (Auto) Baso % (Auto) Gran # Lymph # (Auto) [place] # (Auto) Eos # (Auto) Baso # (Auto) PT INR APTT Sodium 133 Potassium 4.5 Chloride 101 Carbon Dioxide 26 Anion Gap 11 BUN 47 H Creatinine 2.1 H Est GFR ( Amer) 30 Est GFR (Non-Af Amer) 24 POC Glucose (mg/dL) 180 H Random Glucose 185 H Calcium 8.9 Magnesium Total Bilirubin 0.5 AST 18 ALT 20 Alkaline Phosphatase 100 Total Creatine Kinase Troponin I Total Protein 6.7 Albumin 2.9 L Globulin 3.7 Albumin/Globulin Ratio 0.8 L Lipase Urine Color Urine Appearance Urine pH Ur Specific [place] Urine Protein Urine Glucose (UA) Urine Ketones Urine Blood Urine Nitrate Urine Bilirubin Urine Urobilinogen Ur Leukocyte Esterase Urine RBC Urine WBC Ur Epithelial Cells Urine Bacteria Salicylates Acetaminophen Blood Type Antibody Screen Crossmatch BBK History Checked Assessment & Plan - Assessment and Plan (Free Text) Assessment: 57F patient seen and evaluated in the ED for Left foot pain and continued care of previous surgical site Plan: Patient seen and evaluated Plan discussed in detail with Dr. bills Charts, labs and vitals reviewed; afebrile, absent leukocytosis B/L foot x-ray: No osteomyelitis, Left Charcot foot L foot dressing left intact per Dr. Bills request, will evaluate L foot tomorrow with Dr. Bills bedside No dressing to R foot ID reccs appreciated Will continue to follow patient while in house Thank you for the consult
[2018-04-07] MEDS: Oxycodone/Acetaminophen 5/325 mg Tab PO PRN ×2 (12:49→21:33)
--- NOTE | 2018-04-07 18:50 | CARD ---
APPROVED REPORT Date of service: 04/06/2018 EKG Measurement Heart [id number] <Conclusion> Normal sinus rhythm Normal ECG
--- NOTE | 2018-04-07 19:29 | PN ---
DATE: 04/07/2018 SUBJECTIVE: The patient is 57 years old, seen and examined. She is fatigued. She feels a lot better, less weak, not as lethargic. No abdominal pain. PHYSICAL EXAMINATION VITAL SIGNS: She is afebrile, pulse 54, respirations 20, blood pressure 142/83. LUNGS: Bilateral fair airflow. No rhonchi or crackles. HEART: S1 and S2 audible. ABDOMEN: Soft, nontender. No rebound, no guarding. NEUROLOGIC: The patient is awake, alert, oriented, able to communicate. Left foot is in the dressing. LABORATORY EXAM: WBC 7.7, hemoglobin 9, hematocrit 28.5, platelets 318. Chemistry: Sodium 133, potassium 4.5, chloride 101, CO2 of 23, BUN , creatinine 2.1, blood sugar of 180. Urine tox is negative. ASSESSMENT: 1. Hyperkalemia. 2. Symptomatic anemia. 3. Status post left transmetatarsal amputation, currently on IV antibiotics. 4. Insulin-dependent diabetes. 5. History of hypertension, currently running hypotensive. 6. Acute on chronic anemia, requiring blood transfusion. PLAN: We will continue the patient on meropenem, discontinue telemetry, resume all her medications, monitor blood sugar, followup CBC and CMP in a.m., and we will discuss with social work associate for disposition plan to continue her hyperbaric treatment and IV antibiotic and subacute rehab or at home. Colt Zhu MD (Delete this signature block when dictator is a preceptor.)
[2018-04-08 03:14] VITALS: RESP 18; TEMP 98.5
--- NOTE | 2018-04-08 03:36 | CON ---
DATE: 04/07/2018 REASON FOR CONSULTATION: Acute kidney injury, weakness, anemia. HISTORY OF PRESENTING ILLNESS: A 57-year-old lady, well known to me from recent evaluation. The patient was discharged to [facility]. The patient reports that she was not getting a diabetic diet in the halfway. She was getting a lot of sugary foods and she was not eating. She was getting weaker. She was also having trouble with her sugars. She was receiving wound treatments at a wound care center at the [facility]. The patient was also complaining of left flank pain. Currently, she is lying in bed. She is awake, she is alert, she is comfortable. She reports that her pain is much better controlled. She denies any nausea or vomiting. She denies any fevers or chills. She denies any urinary complaints. PAST MEDICAL AND SURGICAL HISTORY: NIDDM; hypertension; peripheral arterial disease; recent left foot abscess; recent left TMA; history of recent sepsis; staph abscess of the foot; staph bacteremia; acute kidney injury requiring dialysis; underlying chronic kidney disease, stage III; severe anemia. FAMILY HISTORY: Noncontributory. SOCIAL HISTORY: No smoking, no alcohol use, no IV drug abuse. ALLERGIES: IODINE, CEFTAROLINE, THEOPHYLLINE. MEDICATIONS: Protonix, Pamelor, Singulair, insulin, Lasix, potassium. REVIEW OF SYSTEMS: All systems are reviewed, pertinent positives as mentioned in history of presenting illness, rest unremarkable. PHYSICAL EXAMINATION GENERAL: middle-aged lady lying in bed. VITAL SIGNS: Blood pressure 115/74, heart rate 94, respiratory rate 20, temperature 99.3. HEENT: Normocephalic, atraumatic, positive pallor. NECK: Supple, no JVD. LUNGS: Bilateral equal air entry, bilateral equal expansion. CARDIAC: S1, S2, regular rate and rhythm, no murmur, no rub. ABDOMEN: Obese, distended, soft, nontender, bowel sounds present. EXTREMITIES: Dressing of the left foot, no right lower extremity edema. Intake and output 1280/2100. LABORATORY DATA: WBC 7.7, hemoglobin 9, hematocrit 28.5, platelets 318. Sodium 133, potassium 4.5, chloride 101, CO2 of 26, BUN 47, creatinine 2.1, glucose 185, calcium 8.9, albumin 2.9. CURRENT MEDICATIONS: Insulin, meropenem, Pamelor, oxycodone, Protonix, Seroquel, Singulair. ASSESSMENT 1. Acute kidney injury superimposed on chronic kidney disease, stage III, mild prerenal azotemia. 2. Mild hyponatremia. 3. Severe anemia. 4. Hrz-thbcyso-uwlgwrcoi diabetes mellitus. 5. Hypertension. 6. Peripheral arterial disease. 7. Cardiomyopathy. 8. Recent foot abscess, transmetatarsal amputation. PLAN 1. The patient received 1 unit of blood yesterday. 2. Renal parameters are improving. 3. Avoid nephrotoxins. 4. Avoid dehydration. 5. Monitor fingersticks and continue insulin. 6. Continue antibiotics. Elva Frank MD
[2018-04-08] MEDS: Pantoprazole 20 mg EC Tab PO SCH (06:08)
[2018-04-08] MEDS: Insulin Lispro (HUMAlog) HIGH Coverage SC SCH ×3 (07:00→16:54)
[2018-04-08 07:05] LABS: BASO # 0.09 K/mm3 (0.0-2.0); BASO % 1.2 % (0.0-3.0); EOS # 0.4 (0.0-0.7); EOS % 5.1 % (1.5-5.0); GRAN # 5.13 (1.4-6.5); GRAN % 66.9 % (50.0-68.0); HEMOGLOBIN 9.3 g/dL (12.0-16.0); LYMPH # 1.5 (1.2-3.4); LYMPH % 19.8 % (22.0-35.0); MEAN CELL VOLUME 90.6 fl (80.0-105.0); MEAN CORPUSCULAR HEMOGLOBIN 28.2 pg (25.0-35.0); MEAN CORPUSCULAR HGB CONC 31.1 g/dl (31.0-37.0); MEAN PLATELET VOLUME 11.3 fl (7.0-11.0); MONO # 0.5 (0.1-0.6); RBC 3.3 10^6/uL (3.5-6.1); RED CELL DISTRIBUTION WIDTH 15.7 % (11.5-14.5); WHITE BLOOD COUNT 7.7 10^3/uL (4.5-11.0)
[2018-04-08 07:17] LABS: ALB/GLOB RATIO 0.8 (1.1-1.8); CALCIUM 9.3 mg/dL (8.4-10.5)
[2018-04-08 08:04] VITALS: O2SAT 98
[2018-04-08 08:08] VITALS: BP 158/87
--- NOTE | 2018-04-08 11:54 | CP.PCM.PN ---
Subjective - Date & Time of Evaluation Date of Evaluation: 04/08/18 Time of Evaluation: 11:53 - Subjective Subjective: Podiatry consult note for Dr. Bills: 56F patient, seen and evaluated POD#7 integra graft application to L foot TMA site (DOS:04/01/18). Patient was evaluated in the wound care center and in [facility]. She denies any acute events or night. Patient states that she is in no pain to the L foot. Patient denies N/V/F/SOB/CP. Objective - Vital Signs/Intake and Output Vital Signs (last 24 hours): Temp Pulse Resp BP Pulse Ox 98.5 F 67 18 158/87 H 98 04/08/18 06:00 04/08/18 06:00 04/08/18 06:00 04/08/18 06:00 04/08/18 06:00 Intake and Output: 04/08/18 04/08/18 06:59 18:59 Intake Total 1680 Output Total 1100 Balance 580 - Medications Medications: Current Medications Meropenem/Sodium Chloride (Merrem Iv 500 Mg/Ns 50 Ml) 500 mg in 50 mls @ 100 mls/hr IVPB Q12 [facility]; Protocol Stop: 04/14/18 10:01 Last Admin: 04/07/18 21:24 Dose: 100 mls/hr Insulin Human Lispro (Humalog High) 0 units SC ACHS [facility]; Protocol Last Admin: 04/07/18 21:37 Dose: Not Given Insulin Lispro Protam/Lispro Human (Humalog Mix 75/25) 18 units SC ACBD [facility] Last Admin: 04/07/18 17:09 Dose: Not Given Montelukast Sodium (Singulair) 10 mg PO DAILY [facility] Last Admin: 04/07/18 10:05 Dose: 10 mg Nortriptyline HCl (Pamelor) 50 mg PO HS [facility] Last Admin: 04/07/18 21:24 Dose: 50 mg Oxycodone/Acetaminophen (Percocet 5/325 Mg Tab) 1 tab PO Q4H PRN PRN Reason: Pain, moderate (4-7) Stop: 04/10/18 12:36 Last Admin: 04/07/18 21:33 Dose: 1 tab Pantoprazole Sodium (Protonix Ec Tab) 20 mg PO 0600 [facility] Last Admin: 04/08/18 06:08 Dose: 20 mg Quetiapine Fumarate (Seroquel Xr) 100 mg PO HS [facility]; Protocol Last Admin: 04/07/18 21:24 Dose: 100 mg - Labs Labs: 04/08/18 06:15 04/08/18 06:15 PT 14.8 SECONDS (9.4-12.5) H 04/06/18 20:04 INR 1.29 04/06/18 20:04 APTT 31.5 Seconds (25.1-36.5) 04/06/18 20:04 - Constitutional Appears: Non-toxic, No Acute Distress - Head Exam Head Exam: ATRAUMATIC, NORMOCEPHALIC - Extremities Exam Additional comments: Left Lower Extremity Exam: VASC: DP/PT 2/4 , Temp gradient warm to warm from proximal to distal. No edema appreciated to L lower extremity NEURO: Gross and protective sensations are diminished B/L. DERM: TMA amputation site and lateral ulcer clean with the graft intact and garrett in place. No evidence of dehiscence, no purulence, no drainage, no m alodor, no clinical signs of infection appreciated. Eschar appreciated to the dorsal aspect of the ankle. ORTHO: No pain upon palpation of ulceration site, left ankle ROM is WNL. Muscle power intact 5/5 to all groups. - Neurological Exam Neurological Exam: Alert, Awake, Oriented x3 - Psychiatric Exam Psychiatric exam: Normal Affect, Normal Mood Assessment and Plan - Assessment and Plan (Free Text) Assessment: 56F patient, seen and evaluated POD#7 integra graft application to L foot TMA site (DOS:04/01/18). Plan: Patient seen and evaluated in the wound care center with Dr. Bills Charts, labs and vitals reviewed; afebrile, absent leukocytosis B/L foot x-ray: No osteomyelitis, Left Charcot foot Local wound care to L foot: xeroform, DSD, ABD. Dressing to be left in place until ID reccs appreciated Continue with daily HBO treatments in wound care center Podiatry recommending TCU placement with transition to home for completion of antibiotics.
--- NOTE | 2018-04-08 12:42 | CP.PCM.PN ---
Subjective - Date & Time of Evaluation Date of Evaluation: 04/08/18 Time of Evaluation: 09:10 - Subjective Subjective: Comfortable, no fevers, non-toxic. Objective - Vital Signs/Intake and Output Vital Signs (last 24 hours): Temp Pulse Resp BP Pulse Ox 98.4 F 84 18 105/60 97 04/07/18 02:34 04/07/18 02:34 04/07/18 02:34 04/07/18 02:34 04/07/18 00:01 Intake and Output: 04/07/18 04/07/18 06:59 18:59 Intake Total 565 Balance 565 - Medications Medications: Current Medications Meropenem/Sodium Chloride (Merrem Iv 500 Mg/Ns 50 Ml) 500 mg in 50 mls @ 100 mls/hr IVPB Q12 [facility]; Protocol Stop: 04/14/18 10:01 Last Admin: 04/07/18 10:05 Dose: 100 mls/hr Insulin Human Lispro (Humalog High) 0 units SC ACHS [facility]; Protocol Last Admin: 04/07/18 08:37 Dose: 2 unit Insulin Lispro Protam/Lispro Human (Humalog Mix 75/25) 18 units SC ACBD [facility] Last Admin: 04/07/18 08:36 Dose: 18 unit Montelukast Sodium (Singulair) 10 mg PO DAILY [facility] Last Admin: 04/07/18 10:05 Dose: 10 mg Nortriptyline HCl (Pamelor) 50 mg PO [facility] Last Admin: 04/07/18 00:36 Dose: 50 mg Pantoprazole Sodium (Protonix Ec Tab) 20 mg PO 0600 [facility] Last Admin: 04/07/18 05:34 Dose: 20 mg Quetiapine Fumarate (Seroquel Xr) 100 mg PO HS [facility]; Protocol Last Admin: 04/07/18 00:37 Dose: 100 mg - Labs Labs: 04/07/18 06:45 04/07/18 06:45 PT 14.8 SECONDS (9.4-12.5) H 04/06/18 20:04 INR 1.29 04/06/18 20:04 APTT 31.5 Seconds (25.1-36.5) 04/06/18 20:04 - Constitutional Appears: Chronically Ill - Head Exam Head Exam: NORMAL INSPECTION - Respiratory Exam Respiratory Exam: Decreased Breath Sounds - Cardiovascular Exam Cardiovascular Exam: +S1, +S2 - GI/Abdominal Exam GI & Abdominal Exam: Soft. absent: Tenderness Assessment and Plan - Assessment and Plan (Free Text) Plan: Assessment Methicillin-sensitive Staph aureus bacteremia from left foot abscess and severe skin/skin structure infection of the left foot S/P I and D and debridement and left TMA history of sepsis due to left foot skin and skin structure infection without evidence of osteomyelitis on MRI, growing MSSA from the wound chronic renal failure history of sepsis due to abdominal wall abscess S/P I and D, grew MSSA history of sepsis due to UTI with E. coli which is resistant to many antibiotics but sensitive to Imipenem (but not ESBL-producing) COPD fibromyalgia history of UTI's restless leg syndrome history of pneumonia HTN chronic CHF DM history of kidney stones history of endometriosis S/P oophorectomy history of cellulitis of lower extremities Plan continue Merrem and we need 3 more weeks from 03/27/2018 with weekly ESR, CRP, CBC, CMP while on antibiotics to be monitored by PMD - fax results to PMD's office follow up further plans of Podiatry discussed with Dr. Zhu
[2018-04-08] MEDS: Insulin Lispro (humaLOG) MIX 75/25(10 ml) SC SCH ×2 (12:55→18:06)
[2018-04-08] MEDS: MEROPENEM 500 MG in NS 500 MG/50 ML BAG IVPB SCH (12:55)
[2018-04-08] MEDS ORDERED: Albuterol-Ipratrop 3 mg / 0.5 (3 ml) UD IH PRN (15:42)
[2018-04-08] MEDS ORDERED: HYDROmorphone 2 mg/ml ISec IVP PRN ×2 (16:01→16:09)
[2018-04-08] MEDS ORDERED: Iron Complex Polysacch 150mg Cap PO SCH (16:15)
[2018-04-08] MEDS ORDERED: Oxychlorosene Topical 2 gm Packet TOP SCH (16:15)
[2018-04-08] MEDS: Oxycodone/Acetaminophen 5/325 mg Tab PO PRN (18:08)
[2018-04-08] MEDS ORDERED: Albuterol-Ipratrop 3 mg / 0.5 (3 ml) UD IH SCH (19:30)
[2018-04-08 20:30] VITALS: PULSE 85
[2018-04-08] MEDS ORDERED: Insulin Detemir 100 units/ml Vial (Levemir) SC SCH (22:00)
--- NOTE | 2018-04-08 23:54 | PN ---
DATE: 04/08/2018 SUBJECTIVE: The patient is seen, sitting in bed. She is awake. She is alert. She is comfortable. She reports feeling much better. She denies any chest pain. She denies any shortness of breath. PHYSICAL EXAMINATION: GENERAL: Middle-aged lady sitting in bed. VITAL SIGNS: Blood pressure 158/87, heart rate 67, respiratory rate 18, temperature 98.5. HEENT: Normocephalic, atraumatic, positive pallor. NECK: Supple. No JVD. CARDIOPULMONARY: S1 and S2. Regular rate and rhythm. No murmur. No rub. LUNGS: Bilateral equal entry, bilateral equal expansion. ABDOMEN: Obese, distended, soft, nontender, bowel sounds present. EXTREMITIES: Dressing of the left foot. INTAKE AND OUTPUT: 1680/2100. LABORATORY DATA: WBC 7.7, hemoglobin 9.3, hematocrit 30, platelets 352. Sodium 138, potassium 4.1, chloride 104, CO2 27, BUN 38, creatinine 1.9, glucose 218, calcium 9.3, AST 20, ALT 13, albumin 3.0. Urine culture, gram-positive cocci. Blood culture, no growth. CURRENT MEDICATIONS: 25 b.i.d., aspirin, Dilaudid, DuoNeb, polysaccharide-iron, insulin, Lipitor, gemfibrozil, Lopressor 50 b.i.d., meropenem 500 every 12, Pamelor, PhosLo, Protonix, Seroquel. ASSESSMENT: 1. Acute kidney injury superimposed on chronic kidney disease stage III, resolving acute kidney injury. 2. Resolved hyperkalemia. 3. Severe anemia. 4. Dcx-qkobzob-emlzggylb diabetes mellitus. 5. Hypotension 6. Recent left foot abscess, status post incision and drainage, status post transmetatarsal amputation. 7. Status post severe sepsis recently. PLAN: 1. Continue antibiotics as per ID recommendations. 2. Avoid nephrotoxins. 3. Cleared for discharge from the renal standpoint. Elva Frank MD
--- NOTE | 2018-04-09 04:56 | DS ---
HISTORY OF PRESENT ILLNESS: The patient is 57 years old, seen and examined. The patient was admitted because of worsening renal function. She was having abdominal discomfort. She was found to be hyperkalemic. Her hyperkalemia was treated. The patient received hyperbaric treatment. She is receiving meropenem. Discussed with mental health social worker. Plan is made to send her to [facility] where she will receive her hyperbaric treatment and IV antibiotic. PHYSICAL EXAMINATION: GENERAL: Today, she is awake, alert, oriented, communicative. VITAL SIGNS: She is afebrile, pulse 67, respirations 18, blood pressure 158/87. LUNGS: Bilateral good airflow. No rhonchi or crackle. HEART: S1 and S2 audible. ABDOMEN: Soft, obese and nontender. No rebound. No guarding. NEUROLOGIC: She is awake, alert, oriented, communicative. LABORATORY DATA: WBC 7.7, hemoglobin 9.3, hematocrit 29, platelet of 352. Chemistry; sodium 138, potassium 4.1, chloride 104, CO2 of 27, BUN 38, creatinine 1.9, blood sugar of 127. ASSESSMENT: 1. Hyperkalemia. 2. Left foot status post transmetatarsal amputation. 3. Hypotension with history of hypertension. 4. Acute on chronic renal failure; seems to be improving, got couple of hemodialysis. 5. Chronic anemia, status post blood transfusion. The patient received one blood transfusion yesterday. PLAN: The patient is being transferred to [facility] where she will receive hyperbaric treatment. She will get meropenem and her blood sugar will be monitored and she will follow with Dr. Bills once a week. Colt Zhu MD
== END 2018-04-08 21:14 ==
LOC: ED 18:30 → ERH 21:39 → 2RNO 23:54 → 5RSO 04-07 23:03 → OBSVTOIN 04-08 12:16 → INTOOBSV 04-08 12:16
PROVIDERS: ADMIT Internal Medicine; ATTEND Internal Medicine
DX: N17.9 Acute kidney failure, unspecified (principal); N18.3 Chronic kidney disease, stage 3 (moderate); I13.0 Hypertensive heart and chronic kidney disease with heart failure and stage 1 through stage 4 chronic kidney disease, or unspecified chronic kidney disease; I50.9 Heart failure, unspecified; I42.9 Cardiomyopathy, unspecified; J44.9 Chronic obstructive pulmonary disease, unspecified; G25.81 Restless legs syndrome; D64.9 Anemia, unspecified; E11.22 Type 2 diabetes mellitus with diabetic chronic kidney disease; E11.40 Type 2 diabetes mellitus with diabetic neuropathy, unspecified; E11.51 Type 2 diabetes mellitus with diabetic peripheral angiopathy without gangrene; E11.610 Type 2 diabetes mellitus with diabetic neuropathic arthropathy; E11.621 Type 2 diabetes mellitus with foot ulcer; E87.1 Hypo-osmolality and hyponatremia; E87.5 Hyperkalemia; K59.00 Constipation, unspecified; L02.612 Cutaneous abscess of left foot; L97.529 Non-pressure chronic ulcer of other part of left foot with unspecified severity; M79.7 Fibromyalgia; Z79.4 Long term (current) use of insulin; Z79.899 Other long term (current) drug therapy; Z87.01 Personal history of pneumonia (recurrent); Z87.440 Personal history of urinary (tract) infections; Z87.442 Personal history of urinary calculi; Z87.891 Personal history of nicotine dependence; Z88.1 Allergy status to other antibiotic agents; Z89.432 Acquired absence of left foot; Z95.5 Presence of coronary angioplasty implant and graft; I95.9 Hypotension, unspecified
CPT/HCPCS: 36415; 36430; 71046; 74019; 80053; 81001; 82550; 82948; 83690; 83735; 84484; 85025; 85610; 85730; 86850; 86900; 86920; 87040; 87086; 93005; 94640; 96374; 99285; G0277; G0378; G0480; J2185; J7030; P9016

== ENCOUNTER 2018-05-08 11:55 | Day surgery (SDC) | payer MEDICARE ==
[2018-05-08] MEDS ORDERED: Lidocaine 2% Inj (20ml) ONE (12:56)
[2018-05-08] MEDS ORDERED: Midazolam 2 MG/2 ML VIAL ONE (15:14)
[2018-05-08] MEDS ORDERED: Clindamycin 150 mg/mL Inj ONE (15:17)
[2018-05-08] MEDS ORDERED: Lidocaine 2% Inj (20ml) IJ ONE (15:27)
[2018-05-08] MEDS ORDERED: Sodium Chloride 0.9% 1,000 ML IV SCH (16:15)
[2018-05-08] MEDS ORDERED: Oxycodone/Acetaminophen 5/325 mg Tab PO PRN ×2 (16:16)
--- NOTE | 2018-05-08 16:21 | PCM.SURG1 ---
Surgeon's Initial Post Op Note - Surgeon's Notes Surgeon: Dr. Guillermina Bills Station Master: Marylou Herrera PGY1 Type of Anesthesia: IV Sedation, Local, None Anesthesia Administered By: Dr. Cisneros Pre-Operative Diagnosis: Left foot multiple nonhealing wound Operative Findings: see dictation. materials- 2-0 vicryl, sutures Post-Operative Diagnosis: same Operation Performed: right foot nonhealing wound debridement with application of graft Specimen/Specimens Removed: none Estimated Blood Loss: EBL {In ML}: 5 Blood Products Given: N/A Drains Used: No Drains Post-Op Condition: Good Date of Surgery/Procedure: 05/08/18 Time of Surgery/Procedure: 16:21
[2018-05-08 16:42] VITALS: PULSE 96
[2018-05-08 17:08] VITALS: BP 139/89; RESP 20; TEMP 97.9; O2SAT 99
--- NOTE | 2018-05-08 17:32 | HP ---
DATE OF EXAM: 05/08/2018 This is emergency dictation since the patient is going to OR at 1 o'clock. HISTORY OF PRESENT ILLNESS: The patient is 58 years old known to me from multiple previous admissions, was brought to same day surgery for possible skin graft placement. The patient has open bone of left TMA when she had emergency surgery done because of her Charcot arthropathy. Dr. Bills has been following the wound and the patient has been getting hyperbaric treatment that she finished a full course, after that, she was following Dr. Bills in wound care center and the patient has exposed support structure. The patient denies any fever or chills, no history of nausea or vomiting. PAST MEDICAL HISTORY: Significant for: 1. Insulin-dependant diabetes. 2. Hypertension. 3. Hyperlipidemia. 4. Peripheral vascular disease. 5. Left foot Charcot arthropathy. Initially, the patient was admitted with foot abscess. She has emergency I and D done, but her wound was not healing and she was found to have osteomyelitis. She end up having TMA of the left foot, after that, she received multiple hyperbaric treatments and 6 weeks of antibiotics. Since her wound is exposed, she was brought to OR for further wound care. She also has past medical history significant for anemia. 6. She went into acute renal failure, had temporary dialysis for couple of treatments and then she came off dialysis treatment and holding on herself. ALLERGIES: SHE IS ALLERGIC TO IODINE, IODINE-CONTAINING PRODUCTS, THEOPHYLLINE AND TEFLARO. MEDICATIONS AT HOME: The patient is on tizanidine, hydralazine, Luvox, Seroquel, Protonix, Pamelor, Levemir, Lopid, Plavix, Coreg, atorvastatin, aspirin, allopurinol and nebulizer treatment. REVIEW OF SYSTEMS: Currently, the patient is nonweightbearing for the left foot. Denies any chest pain. No shortness of breath. No nausea or vomiting. No diarrhea. No fever. No chills. No abdominal pain. PHYSICAL EXAMINATION GENERAL: She is awake, alert, oriented and communicative. VITAL SIGNS: She is afebrile. Pulse 72, respirations 18, blood pressure 120/80. LUNGS: Bilateral fair airflow. No rhonchi or crackles. HEART: S1 and S2, audible. ABDOMEN: Soft, obese, nontender. No rebound. No guarding. NEUROLOGIC: The patient is awake, alert, oriented and communicative. Left foot is in the dressing. ASSESSMENT: 1. Status post left transmetatarsal amputation. 2. Peripheral vascular disease. 3. History of Charcot arthropathy. 4. Hypertension. 5. Hyperlipidemia. 6. History of anxiety disorder. 7. Insulin-dependant diabetes. PLAN: The patient is going to OR. She is medically cleared. She will be admitted and we will monitor her blood sugar and will be also monitored by Podiatry. Colt Zhu MD
--- NOTE | 2018-05-10 02:00 | OP ---
PROCEDURE DATE: 05/08/2018 SURGEON: Guillermina Bills DPM DIRECTOR [employer] SALES: Dr. Marylou Herrera, PGY-1. ANESTHESIOLOGIST: Kishore Cisneros MD ANESTHESIA: No sedation. PREOPERATIVE DIAGNOSIS: Left transmetatarsal amputation nonhealing wound, left foot dorsal wound, left lateral midfoot wound. POSTOPERATIVE DIAGNOSIS: Left transmetatarsal amputation, nonhealing wound, left foot dorsal wound, left lateral midfoot wound. PROCEDURE: Left foot debridement of multiple wounds with application of bilayer skin grafts. INDICATIONS: The patient is a 58-year-old female with above diagnosis. The patient exhausted all conservative treatment at this time and now requests surgical intervention. The patient signed the consent after careful explanation of risks, benefits, complications and alternatives for the surgical procedures. No guarantees were given nor implied. NPO status was confirmed prior to taking the patient to the OR. PREPARATION: The patient was brought into the operating room and placed on operating room table in a supine position. Time-out was performed for identification of the correct patient and procedure. The previous Integra graft was removed from the site of the ulcer and all the garrett were removed using a sterile stapler remover kit. Minimal malodor was noted at this point. The left foot was then prepped and draped in the normal sterile manner and the procedure began. No tourniquet was used during the procedure. DESCRIPTION OF PROCEDURE: Attention was directed to the dorsal aspect of the left foot where hypogranular wounds were noted to the previous transmetatarsal amputation site measuring approximately 4.5 cm x 5 cm x 0.1 cm. Using Misonix in the setting 7 ulceration was excisionally debrided off all the remaining fibrotic and nonviable tissue until fresh and healthy bleeding granular tissue appeared. Attention was then directed to the lateral aspect of the midfoot where an ulcer was noted measuring approximately 4 cm x 3 cm x 0.1 cm where a necrotic base was noted. Using Misonix in the setting 7, ulceration was excisionally debrided off all the remaining fibrotic and nonviable tissue until fresh and healthy bleeding granular tissue appeared. Attention was then directed to the dorsal aspect of the forefoot and midfoot where an ulcer was noted measuring approximately 5 cm x 2 cm with a green fibrotic base and irregular wound edges. Using Misonix in the setting 7, ulceration was excisionally debrided of all remaining fibrotic and nonviable tissue until fresh and healthy bleeding granular tissue appeared. Medial aspect of the TMA site wound full thickness skin was noted to be lifting off the wound which was reapproximated using 2-0 Vicryl. At this point, [id number] Integra bilayer graft was placed on the wound covering all three ulcerations, secured using garrett. Xeroform was then applied on top of the wound. The left foot was then dressed with soft ABD pads, Kerlix, and Coban. POSTOPERATIVE CONDITION: The patient tolerated the procedure well and was escorted to the recovery room with neurovascular status intact to the left foot and vital signs stable. The patient is to weightbear as tolerated. The patient will be discharged and the patient will follow up with Dr. Bills within one week of discharge. MARYLOU HERRERA Guillermina Bills DPM VY
== END 2018-05-08 18:00 | disposition home or self-care (01) ==
LOC: SDS 11:55
PROVIDERS: ATTEND Podiatrist
DX: E11.621 Type 2 diabetes mellitus with foot ulcer (principal); L97.519 Non-pressure chronic ulcer of other part of right foot with unspecified severity; E11.51 Type 2 diabetes mellitus with diabetic peripheral angiopathy without gangrene; E11.610 Type 2 diabetes mellitus with diabetic neuropathic arthropathy; E11.69 Type 2 diabetes mellitus with other specified complication; M86.8X7 Other osteomyelitis, ankle and foot; I10 Essential (primary) hypertension; E78.5 Hyperlipidemia, unspecified; F41.9 Anxiety disorder, unspecified; Z79.4 Long term (current) use of insulin
CPT/HCPCS: 15271; 15002; 82948; 87070; C1762; C1781; J2250; J7030; J7120; Q4104

== ENCOUNTER 2018-05-15 15:58 | Inpatient (IN) | payer MEDICARE, OTHER ==
[2018-05-15 16:29] VITALS: BMI 29.7
--- NOTE | 2018-05-15 16:51 | ED PDOC ---
Arrival/HPI - General Chief Complaint: Medical Clearance Time Seen by Provider: 05/15/18 16:03 Historian: Patient - History of Present Illness Narrative History of Present Illness (Text): 05/15/18 16:48 58yo female with pmhx of diabetes, diabetic foot with ulcer and recent left toes graft x 7days ago referred to ED by Dr. Bills for nonhealing infection. Patient report cellulitis of the grafter toes, states she was placed on Augmenting x 3days. Saw Dr. Bills today and was referred to ED for admission for IV antibiotics. She denies fever, chills, nausea, vomiting, abdominal pain, chest pain, any other complaint. Past Medical History - Provider Review Nursing Documentation Reviewed: Yes - Infectious Disease Hx of Infectious Diseases: None - Tetanus Immunization Tetanus Immunization: Unknown - Cardiac Hx Cardiac Disorders: No Other/Comment: Cardiomyopathy - Pulmonary Hx Respiratory Disorders: Yes Hx Chronic Obstructive Pulmonary Disease (COPD): Yes - Neurological Hx Neurological Disorder: Yes Other/Comment: Neuropathy Feet - HEENT Hx HEENT Disorder: Yes (EPISTAXIS) Hx Epistaxis: Yes - Renal Hx Renal Disorder: Yes Hx Renal Failure: Yes - Endocrine/Metabolic Hx Endocrine Disorders: Yes Hx Diabetes Mellitus Type 2: Yes - Hematological/Oncological Hx Blood Disorders: Yes Hx AIDS: Yes Hx Anemia: Yes Hx Blood Transfusions: Yes Hx Blood Transfusion Reaction: No - Integumentary Hx Dermatological Disorder: Yes - Musculoskeletal/Rheumatological Hx Musculoskeletal Disorders: Yes Hx Arthritis: Yes Hx Gout: Yes Other/Comment: Charcot Foot - Gastrointestinal Hx Gastrointestinal Disorders: Yes Other/Comment: hernia - Genitourinary/Gynecological Hx Genitourinary Disorders: Yes Other/Comment: Endometriosis - Psychiatric Hx Psychophysiologic Disorder: Yes Hx Depression: Yes Hx Physical Abuse: No Hx Substance Use: No - Surgical History Hx Amputation: Yes Hx Mastectomy: No - Anesthesia Hx Anesthesia Reactions: No Hx Malignant Hyperthermia: No - Suicidal Assessment Feels Threatened In Home Enviroment: No Family/Social History - Physician Review Nursing Documentation Reviewed: Yes Family/Social History: Unknown Family HX Smoking Status: Never Smoked Hx Alcohol Use: No Hx Substance Use: No Hx Substance Use Treatment: No Allergies/Home Meds Allergies/Adverse Reactions: Allergies Iodine and Iodide Containing Produc Allergy (Intermediate, Verified 05/15/18 16:29) URTICARIA ceftaroline fosamil [From Teflaro] Allergy (Verified 05/15/18 16:29) ITCHING theophylline Allergy (Verified 05/15/18 16:29) NAUSEA Home Medications: Home Meds Medication Instructions Recorded Confirmed RX: Pantoprazole [Protonix EC Tab] 20 mg PO DAILY 11/29/16 05/15/18 RX: QUEtiapine [Seroquel XR] 100 mg PO HS 11/29/16 05/15/18 RX: tiZANidine [Zanaflex] 2 mg PO BID PRN 11/22/17 05/08/18 Carvedilol [Coreg] 3.125 mg PO BID 05/02/18 05/15/18 Clopidogrel [Plavix] 75 mg PO DAILY 05/02/18 05/15/18 Insulin Aspart, Recombinant See Protocol SQ TID 05/02/18 05/15/18 [Novolog] Levocetirizine Dihydrochloride 5 mg PO DAILY 05/02/18 05/15/18 [Xyzal] RX: Insulin Detemir [Levemir] 30 unit SC BID 05/02/18 05/15/18 RX: fluvoxaMINE [Luvox] 25 mg PO BID 05/02/18 05/15/18 RX: hydrALAZINE [Apresoline] 25 mg PO BID PRN 05/02/18 05/08/18 Iron Ps Cmplx/Vit B12/FA [Ferrex 1 tab PO DAILY 05/15/18 05/15/18 150 Forte Capsule] RX: Nortriptyline [Pamelor] 100 mg PO HS 05/15/18 05/15/18 Umeclidinium Zebulon [Incruse 1 puff INH DAILY 05/15/18 05/15/18 Ellipta] Review of Systems - Physician Review All systems were reviewed & negative as marked: Yes - Review of Systems Constitutional: Normal Eyes: Normal ENT: Normal Respiratory: Normal Cardiovascular: Normal Gastrointestinal: Normal Genitourinary Female: Normal Musculoskeletal: Arthralgias (Left foot infection) Skin: Normal Neurological: Normal Endocrine: Normal Hemo/Lymphatic: Normal Psychiatric: Normal Physical Exam Vital Signs Reviewed: Yes Vital Signs Temp Pulse Resp BP Pulse Ox 05/15/18 16:40 98 F 98 H 18 125/77 99 Temperature: Afebrile Blood Pressure: Normal Pulse: Regular Respiratory Rate: Normal Appearance: Positive for: Well-Appearing, Non-Toxic, Comfortable Pain Distress: None Mental Status: Positive for: Alert and Oriented X 3 - Systems Exam Head: Present: Atraumatic, Normocephalic Pupils: Present: PERRL Extroacular Muscles: Present: EOMI Conjunctiva: Present: Normal Mouth: Present: Moist Mucous Membranes Neck: Present: Normal Range of Motion Respiratory/Chest: Present: Clear to Auscultation, Good Air Exchange. No: Respiratory Distress, Accessory Muscle Use Cardiovascular: Present: Regular Rate and Rhythm, Normal S1, S2. No: Murmurs Abdomen: No: Tenderness, Distention, Peritoneal Signs Back: Present: Normal Inspection Upper Extremity: Present: Normal Inspection. No: Cyanosis, Edema Lower Extremity: Present: Other (Left foot/leg noted in a boot and dressing). No: Edema Neurological: Present: GCS=15, CN II-XII Intact, Speech Normal Skin: Present: Warm, Dry, Normal Color. No: Rashes Psychiatric: Present: Alert, Oriented x 3, Normal Insight, Normal Concentration Medical Decision Making ED Course and Treatment: 05/17/18 00:41 58yo female in ED for stated history. she was hemodynamicalluy stable. Case was NINFA Bills who confirmed sending pt to the ED for admission. Notes that pt failed outp abx Labs Chest xray EKG EKG NSR @ 99bpm chest xray IMPRESSION: Linear atelectasis, left lung base. Case was NINFA Zhu and pt was admitted to her service. - RAD Interpretation Radiology Orders: 05/15/18 16:30 CHEST PORTABLE [RAD] Stat Disposition/Present on Arrival - Present on Arrival Any Indicators Present on Arrival: No History of DVT/PE: No History of Uncontrolled Diabetes: Yes Urinary Catheter: No History of Decub. Ulcer: No History Surgical Site Infection Following: None - Disposition Have Diagnosis and Disposition been Completed?: Yes Diagnosis: Cellulitis Disposition: HOSPITALIZED Disposition Time: 17:00 Patient Plan: Admission Patient Problems: Current Active Problems Problem Status Onset Cellulitis Acute Condition: FAIR
--- NOTE | 2018-05-15 17:43 | RAD ---
HISTORY: admission COMPARISON: Chest x-ray performed 04/06/18 TECHNIQUE: Chest, one view. FINDINGS: Emanation limited by habitus. LUNGS: Linear atelectasis, left lung base. No focal consolidation. Please note that chest x-ray has limited sensitivity for the detection of pulmonary masses. PLEURA: No significant pleural effusion identified. No definite pneumothorax . CARDIOVASCULAR: Heart size appears top normal. No significant atherosclerotic calcification present. OSSEOUS STRUCTURES: No acute osseous abnormality identified. VISUALIZED UPPER ABDOMEN: Unremarkable. OTHER FINDINGS: None. IMPRESSION: Linear atelectasis, left lung base.
[2018-05-15 18:07] LABS: BASO # 0.04 K/mm3 (0.0-2.0); BASO % 0.3 % (0.0-3.0); EOS # 0.6 (0.0-0.7); EOS % 4.8 % (1.5-5.0); GRAN # 9.14 (1.4-6.5); GRAN % 75.8 % (50.0-68.0); HEMOGLOBIN 8.2 g/dL (12.0-16.0); LYMPH # 1.8 (1.2-3.4); MEAN CORPUSCULAR HEMOGLOBIN 27.2 pg (25.0-35.0); MEAN CORPUSCULAR HGB CONC 31.3 g/dl (31.0-37.0); MEAN PLATELET VOLUME 10.5 fl (7.0-11.0); MONO # 0.5 (0.1-0.6); MONO % 4.1 % (1.0-6.0); RBC 3.01 10^6/uL (3.5-6.1); RED CELL DISTRIBUTION WIDTH 16.1 % (11.5-14.5); WHITE BLOOD COUNT 12.1 10^3/uL (4.5-11.0)
[2018-05-15 18:15] LABS: ALB/GLOB RATIO 0.9 (1.1-1.8); CALCIUM 9.9 mg/dL (8.4-10.5)
[2018-05-15 18:17] LABS: INR 1.32; PARTIAL THROMBOPLASTIN TIME 51.1 Seconds (26.9-38.3); PROTHROMBIN TIME 14.7 SECONDS (9.4-12.5)
[2018-05-15] MEDS ORDERED: Vancomycin 500mg in NS 500 MG/100 ML BAG IVPB STA (18:53)
[2018-05-15] MEDS ORDERED: Albuterol-Ipratrop 3 mg / 0.5 (3 ml) UD IH PRN (18:58)
[2018-05-15] MEDS ORDERED: Vancomycin 1gm in NS 250ml 1 GM/250 ML BAG IVPB STA (20:45)
[2018-05-15] MEDS: Albuterol-Ipratrop 3 mg / 0.5 (3 ml) UD IH SCH (21:07)
[2018-05-15] MEDS: QUEtiapine 50 mg XR Tab PO SCH (21:45)
[2018-05-15] MEDS: Insulin Reg-MEDIUM-Coverage SC SCH (22:30)
--- NOTE | 2018-05-15 22:44 | CARD ---
APPROVED REPORT Date of service: 05/15/2018 EKG Measurement Heart [id number] <Conclusion> Normal sinus rhythm with first degree AVB Prolonged QTc Abnormal ECG
--- NOTE | 2018-05-16 00:04 | HP ---
DATE OF EXAM: 05/15/2018 HISTORY OF PRESENT ILLNESS: The patient is a 58-year old being followed by Dr. Bills after she had left TMA. She got hyperbaric treatment. She was seen by Dr. Bills today. A small portion of her wound looks red. She had cultures taken on last visit, was started on p.o. Augmentin, but Dr. Bills called me and she would rather have her IV antibiotic given. So, she is being admitted for IV antibiotic and wound care. Denies any fever or chills. No history of nausea or vomiting. Patient has significant past medical history of left foot abscess, has I and D done, had osteomyelitis, ended up having left transmetatarsal amputation, was given antibiotics for 6 weeks, went into septic shock because of sepsis and also had acute kidney failure, got dialysis for a couple of times, got out of it, has been doing well. PAST MEDICAL HISTORY: Also significant for: 1. Insulin-dependent diabetes. 2. Renal insufficiency. 3. Chronic anemia. 4. Peripheral vascular disease. 5. History of bipolar disorder. ALLERGIES: SHE IS ALLERGIC TO: 1. IODINE AND IODINE-CONTAINING PRODUCTS. 2. TEFLARO. 3. THEOPHYLLINE. MEDICATIONS: As per MAR. SOCIAL HISTORY: She used to be a smoker in the remote past, quit couple of years ago. Used to socially drink, not any more. PHYSICAL EXAMINATION: GENERAL: She is awake, alert, oriented, communicative. VITAL SIGNS: She is afebrile, pulse 98, respirations 18, blood pressure 141/74. LUNGS: Bilateral fair airflow. No rhonchi or crackles. HEART: S1 and S2 audible. ABDOMEN: Soft, nontender. No rebound. No guarding. NEUROLOGICAL: The patient is awake, alert, oriented, communicative. EXTREMITIES: Left transmetatarsal amputation stump is in dressing. LABORATORY EXAMINATION: WBC is 12.1, hemoglobin 8.2, hematocrit 26.2, platelet of 284. PT is 14.7, INR is 1.32. Chemistry: Sodium 136, potassium 4.7, chloride 104, CO2 of 22, BUN 50, creatinine 2.4, blood sugar of 199. She had foot wound culture done on 05/08/2018, has Staphylococcus aureus, Acinetobacter baumanni. ASSESSMENT: 1. Left transmetatarsal amputation wound infection. 2. Insulin-dependent diabetes. 3. Hypertension. 4. Hyperlipidemia. PLAN: The patient is being admitted. Monitor her blood sugar. We will give her a small dose of vancomycin, and ID will follow up the patient in the a.m. Dr. Bills will follow up the patient in the a.m. Colt Zhu MD
[2018-05-16] MEDS: Albuterol-Ipratrop 3 mg / 0.5 (3 ml) UD IH SCH ×2 (01:45→07:25)
[2018-05-16] MEDS: Insulin Reg-MEDIUM-Coverage SC SCH ×4 (08:05→21:15)
[2018-05-16] MEDS: Insulin Detemir 100 units/ml Vial (Levemir) SC SCH ×2 (10:09→17:30)
[2018-05-16] MEDS: Pantoprazole 20 mg EC Tab PO SCH (10:10)
--- NOTE | 2018-05-16 10:34 | CP.PCM.CON ---
<JoselinRupert hernandez - Last Filed: 05/16/18 10:31> History of Present Illness - History of Present Illness History of Present Illness: Podiatry consult note for Dr. Bills 58F well known to Dr. Bills with pmhx of diabetes, diabetic foot with ulcer and recent left toes graft x 7days seen and evaluated at bedside. States that during her nursing visit to change her left foot dressing, her nurse noticed the area and graft site becoming a little red. She was started on augmentin and at her visit with Dr. Bills it appeared to be increasing in redness and she was told to come to the ED. She states that she is in no pain today and that she has noticed some improvement in the color of her foot and the amount of drainage coming from her graft sites since admission. Denies N/V/F/C/SOB/CP today and has no other acute complaints. PMHx: above PSHx: left TMA and graft placement All: Iodine, ceftaroline, theophyline Past Patient History - Infectious Disease Hx of Infectious Diseases: None - Tetanus Immunizations Tetanus Immunization: Unknown - Past Medical History & Family History Past Medical History?: Yes - Past Social History Smoking Status: Former Smoker - CARDIAC Other/Comment: Cardiomyopathy - PULMONARY Hx Chronic Obstructive Pulmonary Disease (COPD): Yes - NEUROLOGICAL Hx Neurological Disorder: Yes Other/Comment: Neuropathy Feet - HEENT Hx Epistaxis: Yes - RENAL Hx Renal Failure: Yes - ENDOCRINE/METABOLIC Hx Diabetes Mellitus Type 2: Yes - HEMATOLOGICAL/ONCOLOGICAL Hx Anemia: Yes - INTEGUMENTARY Hx Dermatological Problems: Yes - MUSCULOSKELETAL/RHEUMATOLOGICAL Hx Arthritis: Yes Hx Falls: Yes Other/Comment: Charcot Foot - GASTROINTESTINAL Hx Gastrointestinal Disorders: Yes Other/Comment: hernia - GENITOURINARY/GYNECOLOGICAL Other/Comment: Endometriosis - PSYCHIATRIC Hx Depression: Yes - SURGICAL HISTORY Hx Amputation: Yes - ANESTHESIA Hx Anesthesia Reactions: No Hx Malignant Hyperthermia: No Meds Allergies/Adverse Reactions: Allergies Allergy/AdvReac Type Severity Reaction Status Date / Time Iodine and Iodide Containing Allergy Intermediate URTICARIA Verified 05/15/18 16:29 Produc ceftaroline fosamil Allergy ITCHING Verified 05/15/18 16:29 [From Teflaro] theophylline Allergy NAUSEA Verified 05/15/18 16:29 - Medications Medications: Current Medications Albuterol/Ipratropium (Duoneb 3 Mg/0.5 Mg (3 Ml) Ud) 3 ml IH Q2H PRN PRN Reason: Shortness of Breath Albuterol/Ipratropium (Duoneb 3 Mg/0.5 Mg (3 Ml) Ud) 3 ml IH [id number] [facility] Last Admin: 05/16/18 07:25 Dose: Not Given Allopurinol (Zyloprim) 100 mg PO DAILY [facility] Last Admin: 05/16/18 10:10 Dose: 100 mg Aspirin (Aspirin Chewable) 81 mg PO DAILY [facility] Last Admin: 05/16/18 10:10 Dose: 81 mg Atorvastatin Calcium (Lipitor) 20 mg PO DIN [facility] Last Admin: 05/15/18 19:32 Dose: 20 mg Carvedilol (Coreg) 3.125 mg PO BID [facility] Last Admin: 05/16/18 10:10 Dose: 3.125 mg Insulin Detemir (Levemir) 30 unit SC BID [facility] Last Admin: 05/16/18 10:09 Dose: 30 unit Insulin Human Regular (Humulin R Med) 0 units SC [facility]; Protocol Last Admin: 05/16/18 08:05 Dose: 5 units Montelukast Sodium (Singulair) 10 mg PO DAILY [facility] (Fluvoxamine [Luvox] (25 Mg)) 25 mg PO BID [facility] Last Admin: 05/15/18 19:24 Dose: Not Given Nortriptyline HCl (Pamelor) 100 mg PO [facility] Last Admin: 05/15/18 21:45 Dose: 100 mg Pantoprazole Sodium (Protonix Ec Tab) 20 mg PO DAILY [facility] Last Admin: 05/16/18 10:10 Dose: 20 mg Quetiapine Fumarate (Seroquel Xr) 100 mg PO [facility]; Protocol Last Admin: 05/15/18 21:45 Dose: 100 mg Physical Exam - Constitutional Appears: Well, Non-toxic, No Acute Distress - Head Exam Head Exam: ATRAUMATIC, NORMOCEPHALIC - Extremities Exam Additional comments: LLE focused VASC: DP/PT 2/4 , Temp gradient warm to warm from proximal to distal. No edema appreciated to L lower extremity NEURO: Gross and protective sensations are diminished DERM: TMA amputation site appears granular with some evidence of fibrotic tissue; graft application sites still adhered with garrett intact at the borders; mild erythema periwound and dorsally at the proximal aspect of the foot; no streaking or clinical signs of infection present ORTHO: no pain on palpation to the graft TMA sites; no other gross pathology noted - Neurological Exam Neurological exam: Alert, Oriented x3 - Psychiatric Exam Psychiatric exam: Normal Affect, Normal Mood Results - Vital Signs Recent Vital Signs: Last Vital Signs Temp 98.8 F 05/16/18 06:00 Pulse 97 H 05/16/18 06:00 Resp 20 05/16/18 06:00 BP 104/61 05/16/18 06:00 Pulse Ox 97 05/16/18 06:00 - Labs Result Diagrams: 05/15/18 17:45 05/15/18 17:45 Labs: Laboratory Results - last 24 hr 05/15/18 05/15/18 05/15/18 17:45 17:45 17:45 WBC 12.1 H D RBC 3.01 L Hgb 8.2 L Hct 26.2 L MCV 87.0 D MCH 27.2 MCHC 31.3 RDW 16.1 H Plt Count 284 MPV 10.5 Gran % 75.8 H Lymph % (Auto) 15.0 L Duval % (Auto) 4.1 Eos % (Auto) 4.8 Baso % (Auto) 0.3 Gran # 9.14 H Lymph # (Auto) 1.8 Duval # (Auto) 0.5 Eos # (Auto) 0.6 Baso # (Auto) 0.04 PT 14.7 H INR 1.32 APTT 51.1 H Sodium 136 Potassium 4.7 Chloride 104 Carbon Dioxide 22 Anion Gap 15 BUN 50 H Creatinine 2.4 H Est GFR ( Amer) 25 Est GFR (Non-Af Amer) 21 POC Glucose (mg/dL) Random Glucose 199 H Calcium 9.9 Total Bilirubin 0.5 AST 22 ALT 20 Alkaline Phosphatase 114 Total Protein 8.3 Albumin 4.0 Globulin 4.4 Albumin/Globulin Ratio 0.9 L 05/15/18 05/15/18 05/16/18 19:18 21:52 06:16 WBC RBC Hgb Hct MCV MCH MCHC RDW Plt Count MPV Gran % Lymph % (Auto) Duval % (Auto) Eos % (Auto) Baso % (Auto) Gran # Lymph # (Auto) Duval # (Auto) Eos # (Auto) Baso # (Auto) PT INR APTT Sodium Potassium Chloride Carbon Dioxide Anion Gap BUN Creatinine Est GFR ( Amer) Est GFR (Non-Af Amer) POC Glucose (mg/dL) 279 H 250 H 255 H Random Glucose Calcium Total Bilirubin AST ALT Alkaline Phosphatase Total Protein Albumin Globulin Albumin/Globulin Ratio Assessment & Plan - Assessment and Plan (Free Text) Assessment: 58F s/p left TMA with graft application with left foot cellulitis Plan: Patient seen and evaluated with Dr. Bills Afebrile, WBC 12.1 ID on board - recs appreciated Continue IV abx Left foot TMA and graft sites dressed with optifoam, ABD, and kerlix Podiatry to continue to follow while in house Thank you for the consult - Date & Time Date: 05/16/18 Time: 10:42 <Guillermina Bills - Last Filed: 05/19/18 18:55> Meds - Medications Medications: Current Medications Albuterol Sulfate (Albuterol 0.042% Inhal Sonia (1.25mg/3ml) Ud) 1.25 mg IH [id number] PRN PRN Reason: Shortness of Breath Allopurinol (Zyloprim) 100 mg PO DAILY [facility] Last Admin: 05/19/18 10:33 Dose: 100 mg Aspirin (Aspirin Chewable) 81 mg PO DAILY [facility] Last Admin: 05/19/18 10:34 Dose: 81 mg Atorvastatin Calcium (Lipitor) 20 mg PO DIN [facility] Last Admin: 05/19/18 17:01 Dose: 20 mg Carvedilol (Coreg) 3.125 mg PO BID [facility] Last Admin: 05/19/18 17:04 Dose: 3.125 mg Daptomycin 320 mg/ Sodium (Chloride) 100 mls @ 200 mls/hr IV Q48H [facility] Stop: 05/21/18 12:01 Last Admin: 05/18/18 12:07 Dose: 200 mls/hr Insulin Detemir (Levemir) 30 unit SC BID [facility] Last Admin: 05/19/18 17:04 Dose: 30 units Insulin Human Regular (Humulin R Med) 0 units SC ACHS [facility]; Protocol Last Admin: 05/19/18 17:00 Dose: 3 units Montelukast Sodium (Singulair) 10 mg PO DAILY [facility] Last Admin: 05/19/18 12:01 Dose: 10 mg (Fluvoxamine [Luvox] (25 Mg)) 25 mg PO BID [facility] Last Admin: 05/19/18 17:05 Dose: Not Given Nortriptyline HCl (Pamelor) 100 mg PO [facility] Last Admin: 05/18/18 21:10 Dose: 100 mg Oxycodone/Acetaminophen (Percocet 5/325 Mg Tab) 2 tab PO Q6H PRN PRN Reason: Pain, moderate (4-7) Stop: 05/22/18 14:58 Last Admin: 05/19/18 15:16 Dose: 2 tab Pantoprazole Sodium (Protonix Ec Tab) 20 mg PO DAILY [facility] Last Admin: 05/19/18 10:36 Dose: 20 mg Quetiapine Fumarate (Seroquel Xr) 100 mg PO [facility]; Protocol Last Admin: 05/18/18 21:10 Dose: 100 mg Results - Vital Signs Recent Vital Signs: Last Vital Signs Temp 98.2 F 05/19/18 16:50 Pulse 90 05/19/18 17:04 Resp 18 05/19/18 16:50 BP 114/73 05/19/18 17:04 Pulse Ox 96 05/19/18 16:50 - Labs Result Diagrams: 05/19/18 07:30 05/19/18 07:30 Labs: Laboratory Results - last 24 hr 05/18/18 05/19/18 05/19/18 21:27 06:26 07:30 WBC 9.4 RBC 3.15 L Hgb 8.6 L Hct 27.6 L MCV 87.6 MCH 27.3 MCHC 31.2 RDW 16.2 H Plt Count 294 MPV 10.4 Sodium Potassium Chloride Carbon Dioxide Anion Gap BUN Creatinine Est GFR ( Amer) Est GFR (Non-Af Amer) POC Glucose (mg/dL) 129 H 118 H Random Glucose Calcium Phosphorus Magnesium 05/19/18 05/19/18 05/19/18 07:30 12:06 16:23 WBC RBC Hgb Hct MCV MCH MCHC RDW Plt Count MPV Sodium 140 Potassium 4.7 Chloride 107 Carbon Dioxide 27 Anion Gap 12 BUN 47 H Creatinine 2.4 H Est GFR ( Amer) 25 Est GFR (Non-Af Amer) 21 POC Glucose (mg/dL) 286 H 230 H Random Glucose 107 Calcium 10.1 Phosphorus 5.3 H Magnesium 1.8 Attending/Attestation - Attestation I have personally seen and examined this patient.: Yes I have fully participated in the care of the patient.: Yes I have reviewed all pertinent clinical information: Yes
--- NOTE | 2018-05-16 10:36 | CP.PCM.APN ---
Subjective - Date & Time of Evaluation Date of Evaluation: 05/16/18 Time of Evaluation: 08:15 - Subjective Subjective: Pt seen and examined at bedside. C/O discomfort to L foot. Otherwise, she is not in acute distress. Objective - Vital Signs/Intake and Output Vital Signs (last 24 hours): Temp Pulse Resp BP Pulse Ox 98.8 F 97 H 20 104/61 97 05/16/18 06:00 05/16/18 06:00 05/16/18 06:00 05/16/18 06:00 05/16/18 06:00 Intake and Output: 05/16/18 05/16/18 06:59 18:59 Intake Total 250 Balance 250 - Medications Medications: Current Medications Albuterol/Ipratropium (Duoneb 3 Mg/0.5 Mg (3 Ml) Ud) 3 ml IH Q2H PRN PRN Reason: Shortness of Breath Albuterol/Ipratropium (Duoneb 3 Mg/0.5 Mg (3 Ml) Ud) 3 ml IH [id number] [facility] Last Admin: 05/16/18 07:25 Dose: Not Given Allopurinol (Zyloprim) 100 mg PO DAILY [facility] Last Admin: 05/16/18 10:10 Dose: 100 mg Aspirin (Aspirin Chewable) 81 mg PO DAILY [facility] Last Admin: 05/16/18 10:10 Dose: 81 mg Atorvastatin Calcium (Lipitor) 20 mg PO DIN [facility] Last Admin: 05/15/18 19:32 Dose: 20 mg Carvedilol (Coreg) 3.125 mg PO BID [facility] Last Admin: 05/16/18 10:10 Dose: 3.125 mg Insulin Detemir (Levemir) 30 unit SC BID [facility] Last Admin: 05/16/18 10:09 Dose: 30 unit Insulin Human Regular (Humulin R Med) 0 units SC [facility]; Protocol Last Admin: 05/16/18 08:05 Dose: 5 units Montelukast Sodium (Singulair) 10 mg PO DAILY [facility] (Fluvoxamine [Luvox] (25 Mg)) 25 mg PO BID [facility] Last Admin: 05/15/18 19:24 Dose: Not Given Nortriptyline HCl (Pamelor) 100 mg PO HS [facility] Last Admin: 05/15/18 21:45 Dose: 100 mg Pantoprazole Sodium (Protonix Ec Tab) 20 mg PO DAILY [facility] Last Admin: 05/16/18 10:10 Dose: 20 mg Quetiapine Fumarate (Seroquel Xr) 100 mg PO HS [facility]; Protocol Last Admin: 05/15/18 21:45 Dose: 100 mg - Labs Labs: 05/15/18 17:45 05/15/18 17:45 PT 14.7 SECONDS (9.4-12.5) H 05/15/18 17:45 INR 1.32 05/15/18 17:45 APTT 51.1 Seconds (26.9-38.3) H 05/15/18 17:45 - Constitutional Appears: Well, No Acute Distress - Head Exam Head Exam: ATRAUMATIC - Eye Exam Eye Exam: Normal appearance - Neck Exam Neck Exam: Full ROM - Respiratory Exam Respiratory Exam: Clear to Ausculation Bilateral, NORMAL BREATHING PATTERN - Cardiovascular Exam Cardiovascular Exam: REGULAR RHYTHM, +S1, +S2 - GI/Abdominal Exam GI & Abdominal Exam: Soft, Normal Bowel Sounds - Rectal Exam Rectal Exam: Deferred - Extremities Exam Additional comments: L transmetatarsal amputation, has skin graft, some redness around the skin graft - Neurological Exam Neurological Exam: Alert, Awake, Oriented x3 Assessment and Plan - Assessment and Plan (Free Text) Assessment: Pt is a 58 y.o. female with pmhx of DM, renal insufficiency, chronic anemia, PVD, bipolar d/o, diabetic ft with ulcer, L ft metatarsal amputation with recent L toes graft about 7 days ago. She was referred to ED by Dr. Bills for nonhealing L ft ulcer & was on Augmentin x3days. Impressions Chest X-Ray 05/15/18 16:30 IMPRESSION: Linear atelectasis, left lung base. Plan: Wound care per podiatry ID, Podiatry and Renal on consult Meds per MAR Physical therapy pending - non weight bearing to L lower extremity Will continue to follow
[2018-05-16] MEDS ORDERED: DAPTOmycin 500 mg Inj (Cubicin) IV SCH (11:45)
--- NOTE | 2018-05-16 13:48 | CP.PCM.CON ---
<Clarence Tovar - Last Filed: 05/16/18 13:53> History of Present Illness - History of Present Illness History of Present Illness: Infectious disease consult note: 58F with PMHx od DM s/p L TMA amputation in 03/2018 presents with cellulites / ulcer and s/p recent left foot graft. Patient states that she had a visiting nurse that comes to check on her when she noticed that her L foot was more red. Patient called her security delivery specialist Dr Bills which prescribed her Augmentin. She took it for 3 days however the redness did not subside. Patient was instrcuted to come to the hospital for IV abx. Patient denies any other symptoms such as fever, or chills. Patient does complain of some discharge from the wound. No other complanints. ID consulted for abx and cellulites / ulcer. PMHx: above PSHx: left TMA and graft placement All: Iodine, ceftaroline, theophyline SH: denies any etoj use, smoking or drugs FH: non contributory Review of Systems - Review of Systems All systems: reviewed and no additional remarkable complaints except Past Patient History - Infectious Disease Hx of Infectious Diseases: None - Tetanus Immunizations Tetanus Immunization: Unknown - Past Medical History & Family History Past Medical History?: Yes - Past Social History Smoking Status: Former Smoker - CARDIAC Other/Comment: Cardiomyopathy - PULMONARY Hx Chronic Obstructive Pulmonary Disease (COPD): Yes - NEUROLOGICAL Hx Neurological Disorder: Yes Other/Comment: Neuropathy Feet - HEENT Hx Epistaxis: Yes - RENAL Hx Renal Failure: Yes - ENDOCRINE/METABOLIC Hx Diabetes Mellitus Type 2: Yes - HEMATOLOGICAL/ONCOLOGICAL Hx Anemia: Yes - INTEGUMENTARY Hx Dermatological Problems: Yes - MUSCULOSKELETAL/RHEUMATOLOGICAL Hx Arthritis: Yes Hx Falls: Yes Other/Comment: Charcot Foot - GASTROINTESTINAL Hx Gastrointestinal Disorders: Yes Other/Comment: hernia - GENITOURINARY/GYNECOLOGICAL Other/Comment: Endometriosis - PSYCHIATRIC Hx Depression: Yes - SURGICAL HISTORY Hx Amputation: Yes - ANESTHESIA Hx Anesthesia Reactions: No Hx Malignant Hyperthermia: No Meds Allergies/Adverse Reactions: Allergies Allergy/AdvReac Type Severity Reaction Status Date / Time Iodine and Iodide Containing Allergy Intermediate URTICARIA Verified 05/15/18 16:29 Produc ceftaroline fosamil Allergy ITCHING Verified 05/15/18 16:29 [From Teflaro] theophylline Allergy NAUSEA Verified 05/15/18 16:29 - Medications Medications: Current Medications Albuterol Sulfate (Albuterol 0.042% Inhal Sonia (1.25mg/3ml) Ud) 1.25 mg IH [id number] PRN PRN Reason: Shortness of Breath Allopurinol (Zyloprim) 100 mg PO DAILY [facility] Last Admin: 05/16/18 10:10 Dose: 100 mg Aspirin (Aspirin Chewable) 81 mg PO DAILY [facility] Last Admin: 05/16/18 10:10 Dose: 81 mg Atorvastatin Calcium (Lipitor) 20 mg PO DIN [facility] Last Admin: 05/15/18 19:32 Dose: 20 mg Carvedilol (Coreg) 3.125 mg PO BID [facility] Last Admin: 05/16/18 10:10 Dose: 3.125 mg Daptomycin 320 mg/ Sodium (Chloride) 100 mls @ 200 mls/hr IV Q24H [facility] Stop: 05/21/18 12:01 Insulin Detemir (Levemir) 30 unit SC BID [facility] Last Admin: 05/16/18 10:09 Dose: 30 unit Insulin Human Regular (Humulin R Med) 0 units SC ACHS [facility]; Protocol Last Admin: 05/16/18 12:21 Dose: 3 units Montelukast Sodium (Singulair) 10 mg PO DAILY [facility] (Fluvoxamine [Luvox] (25 Mg)) 25 mg PO BID [facility] Last Admin: 05/15/18 19:24 Dose: Not Given Nortriptyline HCl (Pamelor) 100 mg PO [facility] Last Admin: 05/15/18 21:45 Dose: 100 mg Oxycodone/Acetaminophen (Percocet 5/325 Mg Tab) 2 tab PO Q6H PRN PRN Reason: Pain, moderate (4-7) Stop: 05/19/18 11:10 Pantoprazole Sodium (Protonix Ec Tab) 20 mg PO DAILY [facility] Last Admin: 05/16/18 10:10 Dose: 20 mg Quetiapine Fumarate (Seroquel Xr) 100 mg PO HS [facility]; Protocol Last Admin: 05/15/18 21:45 Dose: 100 mg Physical Exam - Head Exam Head Exam: ATRAUMATIC, NORMOCEPHALIC - Eye Exam Eye Exam: EOMI - ENT Exam ENT Exam: Mucous Membranes Moist - Respiratory Exam Respiratory Exam: Clear to Auscultation Bilateral. absent: Rales, Wheezes - Cardiovascular Exam Cardiovascular Exam: REGULAR RHYTHM, +S1, +S2 - GI/Abdominal Exam GI & Abdominal Exam: Normal Bowel Sounds, Soft. absent: Tenderness - Extremities Exam Extremities exam: Negative for: calf tenderness, pedal edema Additional comments: Dressing in place by podiatry - Neurological Exam Neurological exam: Alert, CN II-XII Intact, Oriented x3 - Psychiatric Exam Psychiatric exam: Normal Mood - Skin Skin Exam: Dry, Intact, Warm Results - Vital Signs Recent Vital Signs: Last Vital Signs Temp 98.8 F 05/16/18 06:00 Pulse 97 H 05/16/18 06:00 Resp 20 05/16/18 06:00 BP 104/61 05/16/18 06:00 Pulse Ox 97 05/16/18 06:00 - Labs Result Diagrams: 05/15/18 17:45 05/15/18 17:45 Labs: Laboratory Results - last 24 hr 05/15/18 05/15/18 05/15/18 17:45 17:45 17:45 WBC 12.1 H D RBC 3.01 L Hgb 8.2 L Hct 26.2 L MCV 87.0 D MCH 27.2 MCHC 31.3 RDW 16.1 H Plt Count 284 MPV 10.5 Gran % 75.8 H Lymph % (Auto) 15.0 L [place] % (Auto) 4.1 Eos % (Auto) 4.8 Baso % (Auto) 0.3 Gran # 9.14 H Lymph # (Auto) 1.8 [place] # (Auto) 0.5 Eos # (Auto) 0.6 Baso # (Auto) 0.04 PT 14.7 H INR 1.32 APTT 51.1 H Sodium 136 Potassium 4.7 Chloride 104 Carbon Dioxide 22 Anion Gap 15 BUN 50 H Creatinine 2.4 H Est GFR ( Amer) 25 Est GFR (Non-Af Amer) 21 POC Glucose (mg/dL) Random Glucose 199 H Calcium 9.9 Total Bilirubin 0.5 AST 22 ALT 20 Alkaline Phosphatase 114 Total Creatine Kinase Total Protein 8.3 Albumin 4.0 Globulin 4.4 Albumin/Globulin Ratio 0.9 L 05/15/18 05/15/18 05/16/18 19:18 21:52 06:16 WBC RBC Hgb Hct MCV MCH MCHC RDW Plt Count MPV Gran % Lymph % (Auto) [place] % (Auto) Eos % (Auto) Baso % (Auto) Gran # Lymph # (Auto) [place] # (Auto) Eos # (Auto) Baso # (Auto) PT INR APTT Sodium Potassium Chloride Carbon Dioxide Anion Gap BUN Creatinine Est GFR ( Amer) Est GFR (Non-Af Amer) POC Glucose (mg/dL) 279 H 250 H 255 H Random Glucose Calcium Total Bilirubin AST ALT Alkaline Phosphatase Total Creatine Kinase Total Protein Albumin Globulin Albumin/Globulin Ratio 05/16/18 05/16/18 11:33 12:15 WBC RBC Hgb Hct MCV MCH MCHC RDW Plt Count MPV Gran % Lymph % (Auto) [place] % (Auto) Eos % (Auto) Baso % (Auto) Gran # Lymph # (Auto) [place] # (Auto) Eos # (Auto) Baso # (Auto) PT INR APTT Sodium Potassium Chloride Carbon Dioxide Anion Gap BUN Creatinine Est GFR ( Amer) Est GFR (Non-Af Amer) POC Glucose (mg/dL) 204 H Random Glucose Calcium Total Bilirubin AST ALT Alkaline Phosphatase Total Creatine Kinase 67 Total Protein Albumin Globulin Albumin/Globulin Ratio Assessment & Plan - Assessment and Plan (Free Text) Assessment: 58F with PMHx od DM s/p L TMA amputation in 03/2018 s/p recent left foot graft, presents with cellulites. - Received Vanc x 1 - Started on Daptomycin - F/u septic work up - F/u bone scan - F/u podiatry recs Case and plan was reviewed and discussed with Dr Peacock. <Jan Peacock - Last Filed: 05/16/18 15:07> Meds - Medications Medications: Current Medications Albuterol Sulfate (Albuterol 0.042% Inhal Sonia (1.25mg/3ml) Ud) 1.25 mg IH [id number] PRN PRN Reason: Shortness of Breath Allopurinol (Zyloprim) 100 mg PO DAILY [facility] Last Admin: 05/16/18 10:10 Dose: 100 mg Aspirin (Aspirin Chewable) 81 mg PO DAILY [facility] Last Admin: 05/16/18 10:10 Dose: 81 mg Atorvastatin Calcium (Lipitor) 20 mg PO DIN [facility] Last Admin: 05/15/18 19:32 Dose: 20 mg Carvedilol (Coreg) 3.125 mg PO BID [facility] Last Admin: 05/16/18 10:10 Dose: 3.125 mg Daptomycin 320 mg/ Sodium (Chloride) 100 mls @ 200 mls/hr IV Q24H [facility] Stop: 05/21/18 12:01 Last Admin: 05/16/18 14:50 Dose: 200 mls/hr Insulin Detemir (Levemir) 30 unit SC BID [facility] Last Admin: 05/16/18 10:09 Dose: 30 unit Insulin Human Regular (Humulin R Med) 0 units SC ACHS [facility]; Protocol Last Admin: 05/16/18 12:21 Dose: 3 units Montelukast Sodium (Singulair) 10 mg PO DAILY [facility] Last Admin: 05/16/18 10:00 Dose: 10 mg (Fluvoxamine [Luvox] (25 Mg)) 25 mg PO BID [facility] Last Admin: 05/16/18 14:50 Dose: Not Given Nortriptyline HCl (Pamelor) 100 mg PO [facility] Last Admin: 05/15/18 21:45 Dose: 100 mg Oxycodone/Acetaminophen (Percocet 5/325 Mg Tab) 2 tab PO Q6H PRN PRN Reason: Pain, moderate (4-7) Stop: 05/19/18 11:10 Pantoprazole Sodium (Protonix Ec Tab) 20 mg PO DAILY [facility] Last Admin: 05/16/18 10:10 Dose: 20 mg Quetiapine Fumarate (Seroquel Xr) 100 mg PO [facility]; Protocol Last Admin: 05/15/18 21:45 Dose: 100 mg Results - Vital Signs Recent Vital Signs: Last Vital Signs Temp 98.8 F 05/16/18 06:00 Pulse 97 H 05/16/18 06:00 Resp 20 05/16/18 06:00 BP 104/61 05/16/18 06:00 Pulse Ox 97 05/16/18 06:00 - Labs Result Diagrams: 05/15/18 17:45 05/15/18 17:45 Labs: Laboratory Results - last 24 hr 05/15/18 05/15/18 05/15/18 17:45 17:45 17:45 WBC 12.1 H D RBC 3.01 L Hgb 8.2 L Hct 26.2 L MCV 87.0 D MCH 27.2 MCHC 31.3 RDW 16.1 H Plt Count 284 MPV 10.5 Gran % 75.8 H Lymph % (Auto) 15.0 L [place] % (Auto) 4.1 Eos % (Auto) 4.8 Baso % (Auto) 0.3 Gran # 9.14 H Lymph # (Auto) 1.8 [place] # (Auto) 0.5 Eos # (Auto) 0.6 Baso # (Auto) 0.04 PT 14.7 H INR 1.32 APTT 51.1 H Sodium 136 Potassium 4.7 Chloride 104 Carbon Dioxide 22 Anion Gap 15 BUN 50 H Creatinine 2.4 H Est GFR ( Amer) 25 Est GFR (Non-Af Amer) 21 POC Glucose (mg/dL) Random Glucose 199 H Calcium 9.9 Total Bilirubin 0.5 AST 22 ALT 20 Alkaline Phosphatase 114 Total Creatine Kinase Total Protein 8.3 Albumin 4.0 Globulin 4.4 Albumin/Globulin Ratio 0.9 L 05/15/18 05/15/18 05/16/18 19:18 21:52 06:16 WBC RBC Hgb Hct MCV MCH MCHC RDW Plt Count MPV Gran % Lymph % (Auto) [place] % (Auto) Eos % (Auto) Baso % (Auto) Gran # Lymph # (Auto) [place] # (Auto) Eos # (Auto) Baso # (Auto) PT INR APTT Sodium Potassium Chloride Carbon Dioxide Anion Gap BUN Creatinine Est GFR ( Amer) Est GFR (Non-Af Amer) POC Glucose (mg/dL) 279 H 250 H 255 H Random Glucose Calcium Total Bilirubin AST ALT Alkaline Phosphatase Total Creatine Kinase Total Protein Albumin Globulin Albumin/Globulin Ratio 05/16/18 05/16/18 11:33 12:15 WBC RBC Hgb Hct MCV MCH MCHC RDW Plt Count MPV Gran % Lymph % (Auto) [place] % (Auto) Eos % (Auto) Baso % (Auto) Gran # Lymph # (Auto) [place] # (Auto) Eos # (Auto) Baso # (Auto) PT INR APTT Sodium Potassium Chloride Carbon Dioxide Anion Gap BUN Creatinine Est GFR ( Amer) Est GFR (Non-Af Amer) POC Glucose (mg/dL) 204 H Random Glucose Calcium Total Bilirubin AST ALT Alkaline Phosphatase Total Creatine Kinase 67 Total Protein Albumin Globulin Albumin/Globulin Ratio Assessment & Plan - Assessment and Plan (Free Text) Assessment: Infectious diseases Attending Physician Attestation Patient seen and examined, discussed with medical records coordinator. I have reviewed the patient's history of present illness, past medical, social, personal and family histories, pertinent physical exam findings, course so far in this hospital admi ssion, pertinent laboratory and imaging results. I agree with the above findings, assessment and plan. In addition, started Daptomycin for patient with MSSA left foot skin and skin structure infection associated with recent skin graft. Will monitor clinically and will discuss with Podiatry.
[2018-05-16] MEDS: Oxycodone/Acetaminophen 5/325 mg Tab PO PRN (15:05)
--- NOTE | 2018-05-16 15:13 | PN ---
DATE: 05/16/2018 SUBJECTIVE: The patient is 58-year-old, seen and examined, sitting in bed, seems to be comfortable. Denies any nausea or vomiting. No fevers or chills. PHYSICAL EXAMINATION VITAL SIGNS: She is afebrile, pulse 97, respirations 20 and blood pressure 104/61. LUNGS: Bilateral fair airflow. No rhonchi or crackle. HEART: S1 and S2 audible. ABDOMEN: Soft and nontender. No rebound. No guarding. NEUROLOGIC: The patient is awake, alert, oriented and able to communicate. EXTREMITIES: Left foot is in the dressing. LABORATORY DATA: WBC is 12, hemoglobin 8.2, hematocrit 26.2 and platelet 284. Chemistry; sodium 136, potassium 4.7, chloride 104, CO2 of 22, BUN 50, creatinine 2.4 and blood sugar of 204. ASSESSMENT: 1. Status post left thrombotic microangiopathy, status post skin graft. 2. Staphylococcus aureus and Acinetobacter baumannii wound infection. 3. Insulin dependent diabetes. 4. History of chronic obstructive pulmonary disease. 5. Peripheral vascular disease. PLAN: Currently, the patient was stable a few gram of vancomycin yesterday, but given the patient's kidney function is not safe, was evaluated by Infectious Disease and has been started on daptomycin. Bone scan has been ordered. Dr. Bills and ID is following the patient also. We will monitor CBC and CMP. Colt Zhu MD
[2018-05-16] MEDS: QUEtiapine 50 mg XR Tab PO SCH (21:15)
--- NOTE | 2018-05-17 01:21 | CON ---
DATE OF CONSULTATION: 05/16/2018 REASON FOR CONSULTATION: Advanced chronic kidney disease stage 3/4, acute kidney injury, cellulitis. HISTORY OF PRESENTING ILLNESS: This is a 58-year-old lady well known to me from outpatient followup and multiple hospital evaluations. The patient was sent to the emergency room yesterday by Podiatry because of worsening left stump infection. The patient reports that she had a skin graft done a week ago and was told yesterday that it looks infected and needs IV antibiotics. She denies any fever. She denies any chills. She denies any nausea or vomiting. She has a dry cough. She denies any abdominal pain. In the emergency room, she was found to be normotensive, afebrile. Her creatinine was found to be 2.4. This is worse than her baseline. Her baseline creatinine is around 1.8-1.9. Hence, consultation is requested. PAST MEDICAL/SURGICAL HISTORY: Brittle diabetes, hypertension, chronic kidney disease stage 3, severe anemia, peripheral vascular disease, CHF. FAMILY HISTORY: Noncontributory. SOCIAL HISTORY: No smoking, no alcohol use, no IV drug abuse. MEDICATIONS: Plavix, Coreg, aspirin, Lipitor, hydralazine 25 b.i.d. ALLERGIES: IODINE, TEFLARO, THEOPHYLLINE. REVIEW OF SYSTEMS: All systems are reviewed, pertinent positives as mentioned in the history of presenting illness, rest unremarkable. PHYSICAL EXAMINATION: GENERAL: Middle-aged lady sitting in bed. VITAL SIGNS: Blood pressure 104/61, heart rate 97, respiratory rate 20, temperature 98.8. HEENT: Normocephalic, atraumatic, positive pallor. NECK: Supple, no JVD. LUNGS: Bilateral equal air entry, bilateral equal air expansion. CARDIAC: S1 and S2, regular rate and rhythm, no murmur, no rub. ABDOMEN: Obese, distended, soft, nontender, bowel sounds present. EXTREMITIES: Dressing of the left foot. INTAKE AND OUTPUT: Not charted. LABORATORY DATA: WBC 12, hemoglobin 8.2, hematocrit 26, platelets of 284,000. Sodium 136, potassium 4.7, chloride 104, CO2 of 22, BUN 50, creatinine 2.4, glucose 199, calcium 9.9, AST 20, ALT 20, albumin 4.0. CURRENT MEDICATIONS: Fluvoxamine, albuterol, aspirin, Coreg 3.125 b.i.d., daptomycin 320 every 48 hours, insulin, Lipitor 20, Pamelor, Protonix, Seroquel, Singulair, Zyloprim. She got vancomycin 1 g yesterday. ASSESSMENT: 1. Infected sacral decubitus. 2. Ozl-fjmjeol-fuzhkwrsp diabetes mellitus. 3. Hypertension. 4. Chronic kidney disease, stage 3. 5. Acute kidney injury. 6. Hyperlipidemia. PLAN: 1. Continue current antihypertensives. 2. Antibiotics as per ID recommendations. 3. Wound care as per Podiatry. 4. No indication for Lasix right now. 5. Push p.o. fluids. 6. Avoid nephrotoxins. Thank you for the courtesy of this consultation. We will follow this patient closely with you. Elva Frank MD
[2018-05-17 07:08] LABS: BASO # 0.05 K/mm3 (0.0-2.0); BASO % 0.6 % (0.0-3.0); EOS # 0.6 (0.0-0.7); EOS % 6.3 % (1.5-5.0); GRAN # 5.9 (1.4-6.5); GRAN % 65.4 % (50.0-68.0); HEMOGLOBIN 8.4 g/dL (12.0-16.0); LYMPH % 21.8 % (22.0-35.0); MEAN CELL VOLUME 87.3 fl (80.0-105.0); MEAN CORPUSCULAR HEMOGLOBIN 27.3 pg (25.0-35.0); MEAN CORPUSCULAR HGB CONC 31.2 g/dl (31.0-37.0); MEAN PLATELET VOLUME 10.5 fl (7.0-11.0); MONO # 0.5 (0.1-0.6); MONO % 5.9 % (1.0-6.0); RBC 3.08 10^6/uL (3.5-6.1); RED CELL DISTRIBUTION WIDTH 16.3 % (11.5-14.5)
[2018-05-17 07:24] LABS: ALB/GLOB RATIO 0.9 (1.1-1.8); ALBUMIN 3.6 g/dL (3.0-4.8); CALCIUM 9.9 mg/dL (8.4-10.5)
[2018-05-17] MEDS: Insulin Reg-MEDIUM-Coverage SC SCH ×4 (08:08→21:01)
--- NOTE | 2018-05-17 08:54 | CP.PCM.PN ---
<Clarence Tovar - Last Filed: 05/17/18 13:21> Subjective - Date & Time of Evaluation Date of Evaluation: 05/17/18 Time of Evaluation: 07:50 - Subjective Subjective: Infectious disease progress note: Pt seen and examined at bedside. No acute events overnight. C/o mild L foot pain. Otherwise doing well. 12 Point ROS performed and neg other than stated above. Objective - Vital Signs/Intake and Output Vital Signs (last 24 hours): Temp Pulse Resp BP Pulse Ox 97.6 F 88 20 96/56 L 96 05/17/18 06:00 05/17/18 06:00 05/17/18 06:00 05/17/18 06:00 05/17/18 06:00 - Medications Medications: Current Medications Albuterol Sulfate (Albuterol 0.042% Inhal Sonia (1.25mg/3ml) Ud) 1.25 mg IH [id number] PRN PRN Reason: Shortness of Breath Allopurinol (Zyloprim) 100 mg PO DAILY [facility] Last Admin: 05/16/18 10:10 Dose: 100 mg Aspirin (Aspirin Chewable) 81 mg PO DAILY [facility] Last Admin: 05/16/18 10:10 Dose: 81 mg Atorvastatin Calcium (Lipitor) 20 mg PO DIN [facility] Last Admin: 05/16/18 17:25 Dose: 20 mg Carvedilol (Coreg) 3.125 mg PO BID [facility] Last Admin: 05/16/18 17:25 Dose: 3.125 mg Daptomycin 320 mg/ Sodium (Chloride) 100 mls @ 200 mls/hr IV Q48H [facility] Stop: 05/21/18 12:01 Insulin Detemir (Levemir) 30 unit SC BID [facility] Last Admin: 05/16/18 17:30 Dose: 30 unit Insulin Human Regular (Humulin R Med) 0 units SC [facility]; Protocol Last Admin: 05/17/18 08:08 Dose: Not Given Montelukast Sodium (Singulair) 10 mg PO DAILY [facility] Last Admin: 05/16/18 10:00 Dose: 10 mg (Fluvoxamine [Luvox] (25 Mg)) 25 mg PO BID [facility] Last Admin: 05/16/18 14:50 Dose: Not Given Nortriptyline HCl (Pamelor) 100 mg PO HS [facility] Last Admin: 05/16/18 21:15 Dose: 100 mg Oxycodone/Acetaminophen (Percocet 5/325 Mg Tab) 2 tab PO Q6H PRN PRN Reason: Pain, moderate (4-7) Stop: 05/19/18 11:10 Last Admin: 05/16/18 15:05 Dose: 2 tab Pantoprazole Sodium (Protonix Ec Tab) 20 mg PO DAILY [facility] Last Admin: 05/16/18 10:10 Dose: 20 mg Quetiapine Fumarate (Seroquel Xr) 100 mg PO HS [facility]; Protocol Last Admin: 05/16/18 21:15 Dose: 100 mg - Labs Labs: 05/17/18 06:30 05/17/18 06:30 PT 14.7 SECONDS (9.4-12.5) H 05/15/18 17:45 INR 1.32 05/15/18 17:45 APTT 51.1 Seconds (26.9-38.3) H 05/15/18 17:45 - Constitutional Appears: No Acute Distress - Head Exam Head Exam: ATRAUMATIC, NORMOCEPHALIC - Eye Exam Eye Exam: EOMI - Respiratory Exam Respiratory Exam: Clear to Ausculation Bilateral (no rrw) - Cardiovascular Exam Cardiovascular Exam: REGULAR RHYTHM, +S1, +S2 - GI/Abdominal Exam GI & Abdominal Exam: Soft, Normal Bowel Sounds - Extremities Exam Additional comments: dressing in place by podiatry - Neurological Exam Neurological Exam: Alert, Awake, Oriented x3 - Psychiatric Exam Psychiatric exam: Normal Mood - Skin Skin Exam: Dry, Warm Assessment and Plan - Assessment and Plan (Free Text) Assessment: 58F with PMHx od DM s/p L TMA amputation in 03/2018 s/p recent left foot graft, presents with cellulites. - Cont Daptomycin for MSSA skin infection - F/u septic work up - F/u bone scan today - F/u podiatry recs - Cont to monitor for any changes Case and plan was reviewed and discussed with Dr Peacock. <Jan Peacock - Last Filed: 05/17/18 14:47> Objective - Vital Signs/Intake and Output Vital Signs (last 24 hours): Temp Pulse Resp BP Pulse Ox 97.6 F 88 20 96/56 L 96 05/17/18 06:00 05/17/18 06:00 05/17/18 06:00 05/17/18 06:00 05/17/18 06:00 - Medications Medications: Current Medications Albuterol Sulfate (Albuterol 0.042% Inhal Sonia (1.25mg/3ml) Ud) 1.25 mg IH [id number] PRN PRN Reason: Shortness of Breath Allopurinol (Zyloprim) 100 mg PO DAILY [facility] Last Admin: 05/17/18 10:31 Dose: 100 mg Aspirin (Aspirin Chewable) 81 mg PO DAILY [facility] Last Admin: 05/17/18 10:34 Dose: 81 mg Atorvastatin Calcium (Lipitor) 20 mg PO DIN [facility] Last Admin: 05/16/18 17:25 Dose: 20 mg Carvedilol (Coreg) 3.125 mg PO BID [facility] Last Admin: 05/17/18 10:31 Dose: 3.125 mg Daptomycin 320 mg/ Sodium (Chloride) 100 mls @ 200 mls/hr IV Q48H [facility] Stop: 05/21/18 12:01 Insulin Detemir (Levemir) 30 unit SC BID [facility] Last Admin: 05/17/18 10:30 Dose: 30 unit Insulin Human Regular (Humulin R Med) 0 units SC [facility]; Protocol Last Admin: 05/17/18 12:36 Dose: 3 units Montelukast Sodium (Singulair) 10 mg PO DAILY [facility] (Fluvoxamine [Luvox] (25 Mg)) 25 mg PO BID [facility] Last Admin: 05/16/18 14:50 Dose: Not Given Nortriptyline HCl (Pamelor) 100 mg PO [facility] Last Admin: 05/16/18 21:15 Dose: 100 mg Oxycodone/Acetaminophen (Percocet 5/325 Mg Tab) 2 tab PO Q6H PRN PRN Reason: Pain, moderate (4-7) Stop: 05/19/18 11:10 Last Admin: 05/17/18 10:31 Dose: 2 tab Pantoprazole Sodium (Protonix Ec Tab) 20 mg PO DAILY [facility] Last Admin: 05/17/18 10:31 Dose: 20 mg Quetiapine Fumarate (Seroquel Xr) 100 mg PO HS [facility]; Protocol Last Admin: 05/16/18 21:15 Dose: 100 mg - Labs Labs: 05/17/18 06:30 05/17/18 06:30 PT 14.7 SECONDS (9.4-12.5) H 05/15/18 17:45 INR 1.32 05/15/18 17:45 APTT 51.1 Seconds (26.9-38.3) H 05/15/18 17:45 Assessment and Plan - Assessment and Plan (Free Text) Assessment: Infectious diseases Attending Physician Attestation Patient seen and examined, discussed with director of graduate medical education. I have reviewed the patient's history of present illness, past medical, social, personal and family histories, pertinent physical exam findings, course so far in this hospital admission, pertinent laboratory and imaging results. I agree with the above findings, assessment and plan. In addition, continue Daptomycin for patient with MSSA skin graft infection over left foot S/P TMA previously S/P gangrene. Foll ow up bone scan results. CPK level is normal.
--- NOTE | 2018-05-17 09:35 | CP.PCM.APN ---
Subjective - Date & Time of Evaluation Date of Evaluation: 05/17/18 Time of Evaluation: 08:00 - Subjective Subjective: Pt seen and examined at bedside. In no acute distress. Pain to L foot is controlled. Objective - Vital Signs/Intake and Output Vital Signs (last 24 hours): Temp Pulse Resp BP Pulse Ox 97.6 F 88 20 96/56 L 96 05/17/18 06:00 05/17/18 06:00 05/17/18 06:00 05/17/18 06:00 05/17/18 06:00 - Medications Medications: Current Medications Albuterol Sulfate (Albuterol 0.042% Inhal Sonia (1.25mg/3ml) Ud) 1.25 mg IH [id number] PRN PRN Reason: Shortness of Breath Allopurinol (Zyloprim) 100 mg PO DAILY [facility] Last Admin: 05/16/18 10:10 Dose: 100 mg Aspirin (Aspirin Chewable) 81 mg PO DAILY [facility] Last Admin: 05/16/18 10:10 Dose: 81 mg Atorvastatin Calcium (Lipitor) 20 mg PO DIN [facility] Last Admin: 05/16/18 17:25 Dose: 20 mg Carvedilol (Coreg) 3.125 mg PO BID [facility] Last Admin: 05/16/18 17:25 Dose: 3.125 mg Daptomycin 320 mg/ Sodium (Chloride) 100 mls @ 200 mls/hr IV Q48H [facility] Stop: 05/21/18 12:01 Insulin Detemir (Levemir) 30 unit SC BID [facility] Last Admin: 05/16/18 17:30 Dose: 30 unit Insulin Human Regular (Humulin R Med) 0 units SC [facility]; Protocol Last Admin: 05/17/18 08:08 Dose: Not Given Montelukast Sodium (Singulair) 10 mg PO DAILY [facility] Last Admin: 05/16/18 10:00 Dose: 10 mg (Fluvoxamine [Luvox] (25 Mg)) 25 mg PO BID [facility] Last Admin: 05/16/18 14:50 Dose: Not Given Nortriptyline HCl (Pamelor) 100 mg PO HS [facility] Last Admin: 05/16/18 21:15 Dose: 100 mg Oxycodone/Acetaminophen (Percocet 5/325 Mg Tab) 2 tab PO Q6H PRN PRN Reason: Pain, moderate (4-7) Stop: 05/19/18 11:10 Last Admin: 05/16/18 15:05 Dose: 2 tab Pantoprazole Sodium (Protonix Ec Tab) 20 mg PO DAILY [facility] Last Admin: 05/16/18 10:10 Dose: 20 mg Quetiapine Fumarate (Seroquel Xr) 100 mg PO HS [facility]; Protocol Last Admin: 05/16/18 21:15 Dose: 100 mg - Labs Labs: 05/17/18 06:30 05/17/18 06:30 PT 14.7 SECONDS (9.4-12.5) H 05/15/18 17:45 INR 1.32 05/15/18 17:45 APTT 51.1 Seconds (26.9-38.3) H 05/15/18 17:45 - Constitutional Appears: Well, No Acute Distress - Head Exam Head Exam: ATRAUMATIC - Eye Exam Eye Exam: Normal appearance - Respiratory Exam Respiratory Exam: Clear to Ausculation Bilateral, NORMAL BREATHING PATTERN - Cardiovascular Exam Cardiovascular Exam: REGULAR RHYTHM, +S1, +S2 - GI/Abdominal Exam GI & Abdominal Exam: Soft, Normal Bowel Sounds - Rectal Exam Rectal Exam: Deferred - Extremities Exam Additional comments: L foot with c/d/i dressing - Neurological Exam Neurological Exam: Alert, Awake, Oriented x3 Assessment and Plan - Assessment and Plan (Free Text) Assessment: Pt is a 58 y.o. female admitted for nonhealing L ft ulcer/cellulitis Plan: Pending bone scan On Daptomycin per ID recs Podiatry, ID, and Renal on consult Meds per MAR Physical therapy pending Will continue to monitor
[2018-05-17] MEDS: Insulin Detemir 100 units/ml Vial (Levemir) SC SCH ×2 (10:30→17:26)
[2018-05-17] MEDS: Oxycodone/Acetaminophen 5/325 mg Tab PO PRN ×2 (10:31→20:57)
[2018-05-17] MEDS: Pantoprazole 20 mg EC Tab PO SCH (10:31)
--- NOTE | 2018-05-17 13:04 | CP.PCM.PN ---
<Rupert Wall - Last Filed: 05/17/18 13:02> Subjective - Date & Time of Evaluation Date of Evaluation: 05/17/18 Time of Evaluation: 13:02 - Subjective Subjective: Podiatry progress note for Dr. Little 58F seen and evaluated at bedside with Dr. Little. Seen resting comfortably in no acute distress. States that she does not have pain to the left foot today. Denies N/V/F/C/SOB/CP and has no other acute complaints. Objective - Vital Signs/Intake and Output Vital Signs (last 24 hours): Temp Pulse Resp BP Pulse Ox 97.6 F 88 20 96/56 L 96 05/17/18 06:00 05/17/18 06:00 05/17/18 06:00 05/17/18 06:00 05/17/18 06:00 - Medications Medications: Current Medications Albuterol Sulfate (Albuterol 0.042% Inhal Sonia (1.25mg/3ml) Ud) 1.25 mg IH [id number] PRN PRN Reason: Shortness of Breath Allopurinol (Zyloprim) 100 mg PO DAILY [facility] Last Admin: 05/17/18 10:31 Dose: 100 mg Aspirin (Aspirin Chewable) 81 mg PO DAILY [facility] Last Admin: 05/17/18 10:34 Dose: 81 mg Atorvastatin Calcium (Lipitor) 20 mg PO DIN [facility] Last Admin: 05/16/18 17:25 Dose: 20 mg Carvedilol (Coreg) 3.125 mg PO BID [facility] Last Admin: 05/17/18 10:31 Dose: 3.125 mg Daptomycin 320 mg/ Sodium (Chloride) 100 mls @ 200 mls/hr IV Q48H [facility] Stop: 05/21/18 12:01 Insulin Detemir (Levemir) 30 unit SC BID [facility] Last Admin: 05/17/18 10:30 Dose: 30 unit Insulin Human Regular (Humulin R Med) 0 units SC [facility]; Protocol Last Admin: 05/17/18 12:36 Dose: 3 units Montelukast Sodium (Singulair) 10 mg PO DAILY [facility] (Fluvoxamine [Luvox] (25 Mg)) 25 mg PO BID [facility] Last Admin: 05/16/18 14:50 Dose: Not Given Nortriptyline HCl (Pamelor) 100 mg PO [facility] Last Admin: 05/16/18 21:15 Dose: 100 mg Oxycodone/Acetaminophen (Percocet 5/325 Mg Tab) 2 tab PO Q6H PRN PRN Reason: Pain, moderate (4-7) Stop: 05/19/18 11:10 Last Admin: 05/17/18 10:31 Dose: 2 tab Pantoprazole Sodium (Protonix Ec Tab) 20 mg PO DAILY [facility] Last Admin: 05/17/18 10:31 Dose: 20 mg Quetiapine Fumarate (Seroquel Xr) 100 mg PO HS [facility]; Protocol Last Admin: 05/16/18 21:15 Dose: 100 mg - Labs Labs: 05/17/18 06:30 05/17/18 06:30 PT 14.7 SECONDS (9.4-12.5) H 05/15/18 17:45 INR 1.32 05/15/18 17:45 APTT 51.1 Seconds (26.9-38.3) H 05/15/18 17:45 - Constitutional Appears: Well, Non-toxic, No Acute Distress - Head Exam Head Exam: ATRAUMATIC, NORMOCEPHALIC - Extremities Exam Additional comments: LLE focused VASC: DP/PT 2/4 , Temp gradient warm to warm from proximal to distal. No edema appreciated to L lower extremity NEURO: Gross and protective sensations are diminished DERM: TMA amputation site appears granular with some evidence of fibrotic tissue; graft application sites still adhered with garrett intact at the borders; mild erythema periwound and dorsally at the proximal aspect of the foot; no streaking or clinical signs of infection present ORTHO: no pain on palpation to the graft TMA sites; no other gross pathology noted - Neurological Exam Neurological Exam: Alert, Awake, Oriented x3 - Psychiatric Exam Psychiatric exam: Normal Affect, Normal Mood Assessment and Plan - Assessment and Plan (Free Text) Assessment: 58F s/p left TMA with graft application with left foot cellulitis Plan: Patient seen and evaluated with Dr. Little Afebrile, WBC 9.0 ID on board - recs appreciated Continue IV abx Left foot TMA and graft sites dressed with optifoam, ABD, and kerlix Podiatry to continue to follow while in house <Rodríguez Little - Last Filed: 05/17/18 13:52> Objective - Vital Signs/Intake and Output Vital Signs (last 24 hours): Temp Pulse Resp BP Pulse Ox 97.6 F 88 20 96/56 L 96 05/17/18 06:00 05/17/18 06:00 05/17/18 06:00 05/17/18 06:00 05/17/18 06:00 - Medications Medications: Current Medications Albuterol Sulfate (Albuterol 0.042% Inhal Sonia (1.25mg/3ml) Ud) 1.25 mg IH [id number] PRN PRN Reason: Shortness of Breath Allopurinol (Zyloprim) 100 mg PO DAILY [facility] Last Admin: 05/17/18 10:31 Dose: 100 mg Aspirin (Aspirin Chewable) 81 mg PO DAILY [facility] Last Admin: 05/17/18 10:34 Dose: 81 mg Atorvastatin Calcium (Lipitor) 20 mg PO DIN [facility] Last Admin: 05/16/18 17:25 Dose: 20 mg Carvedilol (Coreg) 3.125 mg PO BID [facility] Last Admin: 05/17/18 10:31 Dose: 3.125 mg Daptomycin 320 mg/ Sodium (Chloride) 100 mls @ 200 mls/hr IV Q48H [facility] Stop: 05/21/18 12:01 Insulin Detemir (Levemir) 30 unit SC BID [facility] Last Admin: 05/17/18 10:30 Dose: 30 unit Insulin Human Regular (Humulin R Med) 0 units SC [facility]; Protocol Last Admin: 05/17/18 12:36 Dose: 3 units Montelukast Sodium (Singulair) 10 mg PO DAILY [facility] (Fluvoxamine [Luvox] (25 Mg)) 25 mg PO BID [facility] Last Admin: 05/16/18 14:50 Dose: Not Given Nortriptyline HCl (Pamelor) 100 mg PO HS [facility] Last Admin: 05/16/18 21:15 Dose: 100 mg Oxycodone/Acetaminophen (Percocet 5/325 Mg Tab) 2 tab PO Q6H PRN PRN Reason: Pain, moderate (4-7) Stop: 05/19/18 11:10 Last Admin: 05/17/18 10:31 Dose: 2 tab Pantoprazole Sodium (Protonix Ec Tab) 20 mg PO DAILY [facility] Last Admin: 05/17/18 10:31 Dose: 20 mg Quetiapine Fumarate (Seroquel Xr) 100 mg PO HS [facility]; Protocol Last Admin: 05/16/18 21:15 Dose: 100 mg - Labs Labs: 05/17/18 06:30 05/17/18 06:30 PT 14.7 SECONDS (9.4-12.5) H 05/15/18 17:45 INR 1.32 05/15/18 17:45 APTT 51.1 Seconds (26.9-38.3) H 05/15/18 17:45 Attending/Attestation - Attestation I have personally seen and examined this patient.: Yes I have fully participated in the care of the patient.: Yes I have reviewed all pertinent clinical information, including history, physical exam and plan: Yes
--- NOTE | 2018-05-17 13:57 | PN ---
DATE: 05/17/2018 SUBJECTIVE: The patient is 58-year-old, seen and examined, lying in bed, offers no complaint, eating and tolerating. PHYSICAL EXAMINATION VITAL SIGNS: She is afebrile, pulse 88, respirations 20, and blood pressure 96/56. LUNGS: Bilateral fair air flow. No rhonchi or crackles. HEART: S1 and S2 audible. ABDOMEN: Soft, obese, and nontender. No rebound. No guarding. NEUROLOGICAL: The patient is awake, alert, oriented, and communicative. EXTREMITIES: Moves all extremities. LABORATORY DATA: WBC is 9.0, hemoglobin 98.4, hematocrit 26.9, platelets 271. Chemistry; sodium 140, potassium 4.9, chloride 107, CO2 24, BUN 46, creatinine 2.2, and blood sugar 231. Nuclear bone scan is pending. ASSESSMENT AND PLAN: 1. Left foot wound infection, positive Staphylococcus aureus and Acinetobacter baumannii. 2. Renal insufficiency. 3. Hypertension. 4. Hyperlipidemia. 5. History of hypertension, but currently hypotensive. 6. History of depression. 7. Insulin-dependent diabetes. PLAN: Her MAR reviewed, seem to be appropriate. Continue current medications. Continue daptomycin. We will follow up. Colt Zhu MD
--- NOTE | 2018-05-17 17:07 | NM ---
Date of service: 05/17/2018 PROCEDURE: Three-phase bone Scan HISTORY: Cellulitis, osteomyelitis suspected left foot COMPARISON: None available. TECHNIQUE: Following administration of 28.9 miCu of Tc MDP three-phase bone scan performed. FINDINGS: Flow component: Markedly increased flow to the left foot and ankle. No focal abnormalities Blood pool component: Accumulation of radionuclide particularly about the left foot. Delayed images at 3:00: Multiple abnormal foci including distal tuft of 1st digit, 5th digit, ankle including calcaneus. Other findings: None. IMPRESSION: Findings consistent with severe cellulitis left lower extremity particularly the left foot without evidence of acute osteomyelitis.
[2018-05-17] MEDS: QUEtiapine 50 mg XR Tab PO SCH (21:02)
[2018-05-18] MEDS: Insulin Reg-MEDIUM-Coverage SC SCH ×4 (08:59→22:20)
[2018-05-18] MEDS: Pantoprazole 20 mg EC Tab PO SCH (09:52)
[2018-05-18] MEDS: Insulin Detemir 100 units/ml Vial (Levemir) SC SCH ×2 (09:56→17:48)
--- NOTE | 2018-05-18 10:04 | CP.PCM.PN ---
<Evie Terry - Last Filed: 05/18/18 09:59> Subjective - Date & Time of Evaluation Date of Evaluation: 05/18/18 Time of Evaluation: 09:59 - Subjective Subjective: Podiatry progress note for Dr. Little 58F seen and evaluated this AM for left foot wound. Patient in good spirits today, NAD. No acute events overnight. Patient denies any pain to left foot; offers no new complaints to LLE. Denies n/v/f/d/c/sob/ryan/cp. Objective - Vital Signs/Intake and Output Vital Signs (last 24 hours): Temp Pulse Resp BP Pulse Ox 97.2 F L 91 H 20 118/77 98 05/18/18 06:00 05/18/18 06:00 05/18/18 06:00 05/18/18 06:00 05/18/18 06:00 Intake and Output: 05/18/18 05/18/18 06:59 18:59 Intake Total 720 Balance 720 - Medications Medications: Current Medications Albuterol Sulfate (Albuterol 0.042% Inhal Sonia (1.25mg/3ml) Ud) 1.25 mg IH [id number] PRN PRN Reason: Shortness of Breath Allopurinol (Zyloprim) 100 mg PO DAILY [facility] Last Admin: 05/17/18 10:31 Dose: 100 mg Aspirin (Aspirin Chewable) 81 mg PO DAILY [facility] Last Admin: 05/17/18 10:34 Dose: 81 mg Atorvastatin Calcium (Lipitor) 20 mg PO DIN [facility] Last Admin: 05/17/18 17:25 Dose: 20 mg Carvedilol (Coreg) 3.125 mg PO BID [facility] Last Admin: 05/17/18 17:25 Dose: 3.125 mg Daptomycin 320 mg/ Sodium (Chloride) 100 mls @ 200 mls/hr IV Q48H [facility] Stop: 05/21/18 12:01 Insulin Detemir (Levemir) 30 unit SC BID [facility] Last Admin: 05/17/18 17:26 Dose: 30 unit Insulin Human Regular (Humulin R Med) 0 units SC [facility]; Protocol Last Admin: 05/18/18 08:59 Dose: Not Given Montelukast Sodium (Singulair) 10 mg PO DAILY [facility] Last Admin: 05/17/18 14:47 Dose: 10 mg (Fluvoxamine [Luvox] (25 Mg)) 25 mg PO BID [facility] Last Admin: 05/17/18 19:59 Dose: Not Given Nortriptyline HCl (Pamelor) 100 mg PO HS [facility] Last Admin: 05/17/18 21:02 Dose: 100 mg Oxycodone/Acetaminophen (Percocet 5/325 Mg Tab) 2 tab PO Q6H PRN PRN Reason: Pain, moderate (4-7) Stop: 05/19/18 11:10 Last Admin: 05/17/18 20:57 Dose: 2 tab Pantoprazole Sodium (Protonix Ec Tab) 20 mg PO DAILY [facility] Last Admin: 05/17/18 10:31 Dose: 20 mg Quetiapine Fumarate (Seroquel Xr) [address] [facility]; Protocol Last Admin: 05/17/18 21:02 Dose: 100 mg - Labs Labs: 05/17/18 06:30 05/17/18 06:30 PT 14.7 SECONDS (9.4-12.5) H 05/15/18 17:45 INR 1.32 05/15/18 17:45 APTT 51.1 Seconds (26.9-38.3) H 05/15/18 17:45 - Constitutional Appears: Non-toxic, No Acute Distress - Extremities Exam Additional comments: LLE focused VASC: DP/PT 2/4 , Temp gradient warm to warm from proximal to distal. No edema appreciated to L lower extremity NEURO: Gross and protective sensations are diminished DERM: TMA amputation site appears granular with some evidence of fibrotic tissue; graft application sites still adhered with garrett intact at the borders; mild erythema periwound and dorsally at the proximal aspect of the foot; no streaking or clinical signs of infection present ORTHO: no pain on palpation to the graft TMA sites; no other gross pathology noted - Neurological Exam Neurological Exam: Alert, Awake, Oriented x3 - Psychiatric Exam Psychiatric exam: Normal Affect, Normal Mood Assessment and Plan - Assessment and Plan (Free Text) Assessment: 58F s/p left TMA with graft application + left foot cellulitis Plan: Patient seen and evaluated alongside attending, Dr. Anabel LIRA Bone scan - severe cellulitis left lower extremity w/o evidence of acute oste omyelitis Continue abx per ID Continue local wound care - optifoam, DSD Podiatry will continue to follow <Rodríguez Little - Last Filed: 05/21/18 16:31> Objective - Vital Signs/Intake and Output Vital Signs (last 24 hours): Temp Pulse Resp BP Pulse Ox 98.4 F 96 H 20 120/73 97 05/21/18 06:00 05/21/18 06:00 05/21/18 06:00 05/21/18 06:00 05/21/18 06:00 Intake and Output: 05/21/18 05/21/18 06:59 18:59 Intake Total 720 780 Balance 720 780 - Medications Medications: Current Medications Albuterol Sulfate (Albuterol 0.042% Inhal Sonia (1.25mg/3ml) Ud) 1.25 mg IH [id number] PRN PRN Reason: Shortness of Breath Last Admin: 05/20/18 13:22 Dose: 1.25 mg Allopurinol (Zyloprim) 100 mg PO DAILY [facility] Last Admin: 05/21/18 09:59 Dose: 100 mg Aspirin (Aspirin Chewable) 81 mg PO DAILY [facility] Last Admin: 05/21/18 09:58 Dose: 81 mg Atorvastatin Calcium (Lipitor) 20 mg PO DIN [facility] Last Admin: 05/20/18 17:15 Dose: 20 mg Carvedilol (Coreg) 3.125 mg PO BID [facility] Last Admin: 05/21/18 09:58 Dose: 3.125 mg Darbepoetin Manjit (Aranesp) 60 mcg SC [facility] Stop: 05/22/18 10:01 Insulin Detemir (Levemir) 30 unit SC Q12 [facility] Last Admin: 05/21/18 09:59 Dose: 30 unit Insulin Human Regular (Humulin R Med) 0 units SC ACHS [facility]; Protocol Last Admin: 05/21/18 12:00 Dose: 5 units Montelukast Sodium (Singulair) 10 mg PO DAILY [facility] Last Admin: 05/21/18 09:58 Dose: 10 mg (Fluvoxamine [Luvox] (25 Mg)) 25 mg PO BID [facility] Last Admin: 05/21/18 10:14 Dose: Not Given Nortriptyline HCl (Pamelor) 100 mg PO HS [facility] Last Admin: 05/20/18 22:41 Dose: 100 mg Oxycodone/Acetaminophen (Percocet 5/325 Mg Tab) 2 tab PO Q6H PRN PRN Reason: Pain, moderate (4-7) Stop: 05/22/18 14:58 Last Admin: 05/20/18 22:45 Dose: 2 tab Pantoprazole Sodium (Protonix Ec Tab) 20 mg PO DAILY [facility] Last Admin: 05/21/18 09:58 Dose: 20 mg Quetiapine Fumarate (Seroquel Xr) 100 mg PO HS [facility]; Protocol Last Admin: 05/20/18 22:40 Dose: 100 mg - Labs Labs: 05/19/18 07:30 05/19/18 07:30 PT 14.7 SECONDS (9.4-12.5) H 05/15/18 17:45 INR 1.32 05/15/18 17:45 APTT 51.1 Seconds (26.9-38.3) H 05/15/18 17:45 Attending/Attestation - Attestation I have personally seen and examined this patient.: Yes I have fully participated in the care of the patient.: Yes I have reviewed all pertinent clinical information, including history, physical exam and plan: Yes
--- NOTE | 2018-05-18 12:18 | PN ---
DATE: 05/18/2018 SUBJECTIVE: The patient is in bed, in no acute distress, nontoxic. PHYSICAL EXAMINATION: VITAL SIGNS: Temperature is 97, blood pressure is 118/70, respiratory rate of 20. HEENT: Unremarkable. NECK: Supple. LUNGS: Have decreased breath sounds. HEART: Normal S1, S2. ABDOMEN: Soft. LABORATORY DATA: White count of 9, hemoglobin of 8, platelets of 271. Creatinine is 2.2. Microbiology noted. 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 Review of orders reveals the patient to have daptomycin to be active. Terrance Kent MD
[2018-05-18] MEDS: Oxycodone/Acetaminophen 5/325 mg Tab PO PRN (15:20)
--- NOTE | 2018-05-18 16:34 | PN ---
DATE: 05/18/2018 SUBJECTIVE: The patient is 58 years old, seen and examined, sitting in chair, seems to be comfortable, some discomfort in the left stump wound that was doing well. PHYSICAL EXAMINATION: VITAL SIGNS: She is afebrile, pulse 91, respirations 20, and blood pressure 118/77. LUNGS: Bilateral fair air flow. No rhonchi or crackles. HEART: S1 and S2 audible. ABDOMEN: Soft, nontender. No rebound. No guarding. NEUROLOGICAL: The patient is awake and alert, able to communicate. EXTREMITIES: Left TMA stump is dressed. LABORATORY DATA: Blood sugar is 132. ASSESSMENT AND PLAN: 1. Left transmetatarsal amputation staphylococcus aureus infection. 2. Acinetobacter baumannii infection. 3. Acute on chronic kidney disease. 4. Insulin dependent diabetes. 5. History of hypertension. The patient has bone scan done that shows severe cellulitis left lower extremity, particularly the left foot without evidence of acute osteomyelitis. So the plan is currently, the patient is on daptomycin. We will continue that. Local wound care is being done by Dr. Bills's team. Continue the patient on current regimen. We will follow up on Sunday. Colt Zhu MD
--- NOTE | 2018-05-18 19:56 | PN ---
DATE: 05/18/2018 SUBJECTIVE: The patient is seen lying in bed. She is awake. She is alert. She is comfortable. She reports she had a bone scan this morning. PHYSICAL EXAMINATION GENERAL: Elderly lady, lying in bed. VITAL SIGNS: Blood pressure 118/77, heart rate 91, respiratory rate 20, temperature 97.2. HEENT: Normocephalic, atraumatic, positive pallor. NECK: Supple, no JVD. LUNGS: Bilateral equal air entry, bilateral equal expansion. CARDIAC: S1 and S2, regular rate and rhythm, no murmur, no rub. ABDOMEN: Soft, nondistended, nontender, bowel sounds present. EXTREMITIES: Dressing of the left lower extremity. INTAKE AND OUTPUT: Not charted. LABORATORY DATA: No new labs today. CURRENT MEDICATIONS: Allopurinol, Singulair, , Protonix, nortriptyline, Lipitor, insulin, daptomycin 320 every 48 hours, Coreg 3.125 b.i.d. ASSESSMENT: 1. Infected left stump. 2. Cellulitis of the left lower extremity. 3. Non-insulin dependent diabetes mellitus. 4. Hypertension. 5. Chronic kidney disease stage III. 6. Anemia of chronic kidney disease. 7. Depression PLAN: 1. Continue antibiotics as per ID recommendations. 2. Continue wound care. 3. Monitor fingersticks. 4. Avoid nephrotoxins. 5. Monitor labs. Elva Frank MD
[2018-05-18] MEDS: QUEtiapine 50 mg XR Tab PO SCH (21:10)
[2018-05-19 07:44] LABS: HEMOGLOBIN 8.6 g/dL (12.0-16.0); MEAN CELL VOLUME 87.6 fl (80.0-105.0); MEAN CORPUSCULAR HEMOGLOBIN 27.3 pg (25.0-35.0); MEAN CORPUSCULAR HGB CONC 31.2 g/dl (31.0-37.0); MEAN PLATELET VOLUME 10.4 fl (7.0-11.0); RBC 3.15 10^6/uL (3.5-6.1); RED CELL DISTRIBUTION WIDTH 16.2 % (11.5-14.5); WHITE BLOOD COUNT 9.4 10^3/uL (4.5-11.0)
[2018-05-19 08:04] LABS: CALCIUM 10.1 mg/dL (8.4-10.5)
[2018-05-19] MEDS: Insulin Reg-MEDIUM-Coverage SC SCH ×4 (08:21→23:08)
[2018-05-19] MEDS: Insulin Detemir 100 units/ml Vial (Levemir) SC SCH ×2 (10:34→17:04)
[2018-05-19] MEDS: Pantoprazole 20 mg EC Tab PO SCH (10:36)
--- NOTE | 2018-05-19 12:20 | CP.PCM.PN ---
<Evie Terry - Last Filed: 05/19/18 23:53> Subjective - Date & Time of Evaluation Date of Evaluation: 05/19/18 Time of Evaluation: 12:20 - Subjective Subjective: Podiatry progress note for Dr. Little/Negar 58F seen and evaluated this AM for left foot TMA wound. Patient resting comfortably, NAD. Patient offers no new complaints to LLE. Dressing clean/dry/intact. Denies n/v/f/d/c/sob/ryan/cp. Objective - Vital Signs/Intake and Output Vital Signs (last 24 hours): Temp Pulse Resp BP Pulse Ox 98.5 F 100 H 18 113/74 98 05/19/18 08:29 05/19/18 10:34 05/19/18 08:29 05/19/18 10:34 05/19/18 08:29 Intake and Output: 05/19/18 05/19/18 06:59 18:59 Intake Total 720 Balance 720 - Medications Medications: Current Medications Albuterol Sulfate (Albuterol 0.042% Inhal Sonia (1.25mg/3ml) Ud) 1.25 mg IH [id number] PRN PRN Reason: Shortness of Breath Allopurinol (Zyloprim) 100 mg PO DAILY [facility] Last Admin: 05/19/18 10:33 Dose: 100 mg Aspirin (Aspirin Chewable) 81 mg PO DAILY [facility] Last Admin: 05/19/18 10:34 Dose: 81 mg Atorvastatin Calcium (Lipitor) 20 mg PO DIN [facility] Last Admin: 05/18/18 17:46 Dose: 20 mg Carvedilol (Coreg) 3.125 mg PO BID [facility] Last Admin: 05/19/18 10:34 Dose: 3.125 mg Daptomycin 320 mg/ Sodium (Chloride) 100 mls @ 200 mls/hr IV Q48H [facility] Stop: 05/21/18 12:01 Last Admin: 05/18/18 12:07 Dose: 200 mls/hr Insulin Detemir (Levemir) 30 unit SC BID [facility] Last Admin: 05/19/18 10:34 Dose: 30 units Insulin Human Regular (Humulin R Med) 0 units SC ACHS [facility]; Protocol Last Admin: 05/19/18 08:21 Dose: Not Given Montelukast Sodium (Singulair) 10 mg PO DAILY [facility] Last Admin: 05/19/18 12:01 Dose: 10 mg (Fluvoxamine [Luvox] (25 Mg)) 25 mg PO BID [facility] Last Admin: 05/19/18 10:35 Dose: Not Given Nortriptyline HCl (Pamelor) 100 mg PO [facility] Last Admin: 05/18/18 21:10 Dose: 100 mg Pantoprazole Sodium (Protonix Ec Tab) 20 mg PO DAILY [facility] Last Admin: 05/19/18 10:36 Dose: 20 mg Quetiapine Fumarate (Seroquel Xr) 100 mg PO [facility]; Protocol Last Admin: 05/18/18 21:10 Dose: 100 mg - Labs Labs: 05/19/18 07:30 05/19/18 07:30 PT 14.7 SECONDS (9.4-12.5) H 05/15/18 17:45 INR 1.32 05/15/18 17:45 APTT 51.1 Seconds (26.9-38.3) H 05/15/18 17:45 - Constitutional Appears: Non-toxic, No Acute Distress - Extremities Exam Additional comments: LLE focused VASC: DP/PT 2/4 , Temp gradient warm to warm from proximal to distal. No edema appreciated to L lower extremity NEURO: Gross and protective sensations are diminished DERM: TMA amputation site appears granular with some evidence of fibrotic tissu e; graft application sites still adhered with garrett intact at the borders; mild erythema periwound and dorsally at the proximal aspect of the foot; no streaking or clinical signs of infection present ORTHO: no pain on palpation to the graft TMA sites; no other gross pathology noted - Neurological Exam Neurological Exam: Alert, Awake, Oriented x3 - Psychiatric Exam Psychiatric exam: Normal Affect, Normal Mood Assessment and Plan - Assessment and Plan (Free Text) Assessment: 58F s/p left TMA with graft application + left foot cellulitis Plan: Patient seen and evaluated Discussed with attending, Dr. Bills VSS, WBC 9.4 Bone scan - severe cellulitis left lower extremity w/o evidence of acute osteomyelitis Continue abx per ID Continue local wound care - optifoam, DSD Podiatry will continue to follow <Guillermina Bills - Last Filed: 05/20/18 07:59> Objective - Vital Signs/Intake and Output Vital Signs (last 24 hours): Temp Pulse Resp BP Pulse Ox 98.2 F 98 H 18 112/65 95 05/20/18 06:00 05/20/18 06:00 05/20/18 06:00 05/20/18 06:00 05/20/18 06:00 Intake and Output: 05/20/18 05/20/18 06:59 18:59 Intake Total 240 Balance 240 - Medications Medications: Current Medications Albuterol Sulfate (Albuterol 0.042% Inhal Sonia (1.25mg/3ml) Ud) 1.25 mg IH [id number] PRN PRN Reason: Shortness of Breath Allopurinol (Zyloprim) 100 mg PO DAILY [facility] Last Admin: 05/19/18 10:33 Dose: 100 mg Aspirin (Aspirin Chewable) 81 mg PO DAILY [facility] Last Admin: 05/19/18 10:34 Dose: 81 mg Atorvastatin Calcium (Lipitor) 20 mg PO DIN [facility] Last Admin: 05/19/18 17:01 Dose: 20 mg Carvedilol (Coreg) 3.125 mg PO BID [facility] Last Admin: 05/19/18 17:04 Dose: 3.125 mg Daptomycin 320 mg/ Sodium (Chloride) 100 mls @ 200 mls/hr IV Q48H [facility] Stop: 05/21/18 12:01 Last Admin: 05/18/18 12:07 Dose: 200 mls/hr Insulin Detemir (Levemir) 30 unit SC BID [facility] Last Admin: 05/19/18 17:04 Dose: 30 units Insulin Human Regular (Humulin R Med) 0 units [facility]; Protocol Last Admin: 05/19/18 23:08 Dose: Not Given Montelukast Sodium (Singulair) 10 mg PO DAILY [facility] Last Admin: 05/19/18 12:01 Dose: 10 mg (Fluvoxamine [Luvox] (25 Mg)) 25 mg PO BID [facility] Last Admin: 05/19/18 17:05 Dose: Not Given Nortriptyline HCl (Pamelor) 100 mg PO HS [facility] Last Admin: 05/19/18 21:53 Dose: 100 mg Oxycodone/Acetaminophen (Percocet 5/325 Mg Tab) 2 tab PO Q6H PRN PRN Reason: Pain, moderate (4-7) Stop: 05/22/18 14:58 Last Admin: 05/19/18 21:56 Dose: 2 tab Pantoprazole Sodium (Protonix Ec Tab) 20 mg PO DAILY [facility] Last Admin: 05/19/18 10:36 Dose: 20 mg Quetiapine Fumarate (Seroquel Xr) 100 mg PO HS [facility]; Protocol Last Admin: 05/19/18 21:52 Dose: 100 mg - Labs Labs: 05/19/18 07:30 05/19/18 07:30 PT 14.7 SECONDS (9.4-12.5) H 05/15/18 17:45 INR 1.32 05/15/18 17:45 APTT 51.1 Seconds (26.9-38.3) H 05/15/18 17:45 Attending/Attestation - Attestation I have personally seen and examined this patient.: Yes I have fully participated in the care of the patient.: Yes I have reviewed all pertinent clinical information, including history, physical exam and plan: Yes
[2018-05-19] MEDS: Oxycodone/Acetaminophen 5/325 mg Tab PO PRN ×2 (15:16→21:56)
--- NOTE | 2018-05-19 15:39 | PN ---
DATE: 05/19/2018 SUBJECTIVE: This is a 58-year-old female who has cellulitis in the left foot. She has no complaints of any chest pain, shortness of breath. No headaches. She feels well. PHYSICAL EXAMINATION: VITAL SIGNS: Temperature is 98.5, pulse 100, blood pressure 113/74, respirations 18. GENERAL: The patient is lying in bed, flat, comfortable. HEENT: No oral lesion. Anicteric sclerae. Moist mucosa. NECK: No JVD, adenopathy, or thyromegaly. CARDIOVASCULAR: S1 and S2, regular. No murmurs, rubs, or gallops. LUNGS: Clear to auscultation bilaterally. No wheeze, rales, or rhonchi. ABDOMEN: Bowel sounds are positive, soft, nontender and nondistended. EXTREMITIES: No cyanosis, clubbing or edema. LABS: White count is 9.4, hemoglobin is 8.6, creatinine is 2.4. ASSESSMENT: 1. Left foot cellulitis, transmetatarsal amputation with Staphylococcus aureus infection. 2. Diabetes type 2. 3. Hypertension. 4. Chronic kidney disease stage 3. 5. Anemia of chronic disease. 7. Depression. 8. Dyslipidemia. PLAN: The patient is currently receiving IV antibiotics with daptomycin. She is also on Levemir for her diabetes type 2. She is on Lipitor for dyslipidemia. She is on nortriptyline for her depression. She is going to continue with Seroquel as well. She is on allopurinol for hypouricemia. She is going to continue with aspirin daily. Much of a time, she is on a heart-healthy diet. She denies pain. She is being followed by multiple consultants. I did reviewed the notes for Dr. Kent as well as Dr. Frank. She is getting local wound care from Podiatry. Jens Singh MD
--- NOTE | 2018-05-19 18:03 | PN ---
DATE: 05/19/2018 SUBJECTIVE: The patient is seen in bed, in no acute distress. The patient is seen earlier this morning. The patient has no fevers and no chills. OBJECTIVE: VITAL SIGNS: Temperature is 98, blood pressure is 113/70, and respiratory rate of 18. HEENT: Unremarkable. NECK: Supple. LUNGS: Have decreased breath sounds. HEART: Normal S1 and S2. ABDOMEN: Soft. LABORATORY DATA: Reveals a white count of 9.4 and hemoglobin of 8. Chemistries reveal a BUN of 47 and creatinine of 2.4. ASSESSMENT AND PLAN: This is a 58-year-old female with a history of diabetes and status post left metatarsal amputation in 03/2018, status post left foot graft, presents with cellulitis and daptomycin for methicillin-resistant Staphylococcus aureus cellulitis and the patient is currently on daptomycin. We will follow closely with you. Should check the CPK. Terrance Kent MD
[2018-05-19] MEDS: QUEtiapine 50 mg XR Tab PO SCH (21:52)
--- NOTE | 2018-05-20 08:30 | PN ---
DATE: 05/17/2018 SUBJECTIVE: The patient is seen lying in bed. She is awake, she is alert, she is comfortable. She denies any pain. She denies any shortness of breath. PHYSICAL EXAMINATION: GENERAL: Elderly lady, lying in bed. VITAL SIGNS: Blood pressure 123/69, heart rate 85, respiratory rate 20, temperature 97.5. HEENT: Normocephalic, atraumatic, positive pallor. NECK: Supple, no JVD. LUNGS: Bilateral equal air entry. Bilateral equal expansion. CARDIAC: S1, S2. Regular rate and rhythm. No murmurs, no rub. ABDOMEN: Obese, distended, soft, nontender. Bowel sounds present. EXTREMITIES: Dressing of the left foot. INTAKE AND OUTPUT: 1020/not charted. LABORATORY DATA: Hemoglobin 8.4. Sodium 140, potassium 4.9, chloride 107, CO2 of 24, BUN 46, creatinine 2.2, glucose 154, calcium 9.9. CURRENT MEDICATIONS: Albuterol, aspirin, Coreg 3.125 b.i.d., daptomycin every 48 hours, insulin, Levemir, Lipitor, Pamelor, Percocet, Protonix, Seroquel, Singulair, Zyloprim. ASSESSMENT: 1. Acute kidney injury, superimposed on chronic kidney disease stage III, slowly resolving. 2. Non-insulin dependent diabetes mellitus. 3. Hypertension. 4. Infected left foot stump. 5. Depression. 6. Hyperuricemia. PLAN: 1. Continue current management. 2. Hold Lasix. 3. Continue Coreg. 4. Antibiotics as per ID recommendations. 5. Wound care. Elva Frank MD
[2018-05-20] MEDS: Insulin Reg-MEDIUM-Coverage SC SCH ×4 (08:59→22:39)
[2018-05-20] MEDS: Insulin Detemir 100 units/ml Vial (Levemir) SC SCH ×2 (09:01→22:39)
[2018-05-20] MEDS: Pantoprazole 20 mg EC Tab PO SCH (09:02)
--- NOTE | 2018-05-20 09:59 | CP.PCM.PN ---
<Clarence Tovar - Last Filed: 05/20/18 13:29> Subjective - Date & Time of Evaluation Date of Evaluation: 05/20/18 Time of Evaluation: 07:20 - Subjective Subjective: Infectious disease progress note: Pt seen and examined at bedside. No acute events overnight. C/o of mild LLE pain otherwise doing well. 12 Point ROS performed and neg other than stated above. Objective - Vital Signs/Intake and Output Vital Signs (last 24 hours): Temp Pulse Resp BP Pulse Ox 98.2 F 98 H 18 112/65 95 05/20/18 06:00 05/20/18 09:02 05/20/18 06:00 05/20/18 09:02 05/20/18 06:00 Intake and Output: 05/20/18 05/20/18 06:59 18:59 Intake Total 240 Balance 240 - Medications Medications: Current Medications Albuterol Sulfate (Albuterol 0.042% Inhal Sonia (1.25mg/3ml) Ud) 1.25 mg IH [id number] PRN PRN Reason: Shortness of Breath Allopurinol (Zyloprim) 100 mg PO DAILY [facility] Last Admin: 05/20/18 09:02 Dose: 100 mg Aspirin (Aspirin Chewable) 81 mg PO DAILY [facility] Last Admin: 05/20/18 09:02 Dose: 81 mg Atorvastatin Calcium (Lipitor) 20 mg PO DIN [facility] Last Admin: 05/19/18 17:01 Dose: 20 mg Carvedilol (Coreg) 3.125 mg PO BID [facility] Last Admin: 05/20/18 09:02 Dose: 3.125 mg Daptomycin 320 mg/ Sodium (Chloride) 100 mls @ 200 mls/hr IV Q48H [facility] Stop: 05/21/18 12:01 Last Admin: 05/18/18 12:07 Dose: 200 mls/hr Insulin Detemir (Levemir) 30 unit SC BID [facility] Last Admin: 05/20/18 09:01 Dose: 30 units Insulin Human Regular (Humulin R Med) 0 units SC ACHS [facility]; Protocol Last Admin: 05/20/18 08:59 Dose: 3 units Montelukast Sodium (Singulair) 10 mg PO DAILY [facility] Last Admin: 05/19/18 12:01 Dose: 10 mg (Fluvoxamine [Luvox] (25 Mg)) 25 mg PO BID [facility] Last Admin: 05/19/18 17:05 Dose: Not Given Nortriptyline HCl (Pamelor) 100 mg PO [facility] Last Admin: 05/19/18 21:53 Dose: 100 mg Oxycodone/Acetaminophen (Percocet 5/325 Mg Tab) 2 tab PO Q6H PRN PRN Reason: Pain, moderate (4-7) Stop: 05/22/18 14:58 Last Admin: 05/19/18 21:56 Dose: 2 tab Pantoprazole Sodium (Protonix Ec Tab) 20 mg PO DAILY [facility] Last Admin: 05/20/18 09:02 Dose: 20 mg Quetiapine Fumarate (Seroquel Xr) 100 mg PO [facility]; Protocol Last Admin: 05/19/18 21:52 Dose: 100 mg - Labs Labs: 05/19/18 07:30 05/19/18 07:30 PT 14.7 SECONDS (9.4-12.5) H 05/15/18 17:45 INR 1.32 05/15/18 17:45 APTT 51.1 Seconds (26.9-38.3) H 05/15/18 17:45 - Constitutional Appears: No Acute Distress - Head Exam Head Exam: ATRAUMATIC, NORMOCEPHALIC - Eye Exam Eye Exam: EOMI - ENT Exam ENT Exam: Mucous Membranes Moist - Respiratory Exam Respiratory Exam: Clear to Ausculation Bilateral. absent: Rales, Wheezes - Cardiovascular Exam Cardiovascular Exam: REGULAR RHYTHM, +S1, +S2 - GI/Abdominal Exam GI & Abdominal Exam: Soft. absent: Distended, Tenderness - Extremities Exam Extremities Exam: absent: Calf Tenderness, Pedal Edema Additional comments: LLE dressing in place by podiatry - Neurological Exam Neurological Exam: Alert, Awake, Oriented x3 - Psychiatric Exam Psychiatric exam: Normal Mood - Skin Skin Exam: Dry, Warm Assessment and Plan - Assessment and Plan (Free Text) Assessment: 58F with PMHx of DM s/p L TMA amputation in 03/2018 s/p recent left foot graft, presents with cellulites. - Cont Daptomycin for MSSA skin infection every other day for total of 3 more doses - F/u septic work up - F/u bone scan - severe cellulites and no osteo - F/u podiatry recs - Cont to monitor for any changes Case and plan was reviewed and discussed with Dr Peacock. <Jan Peacockmaricel S - Last Filed: 05/20/18 15:52> Objective - Vital Signs/Intake and Output Vital Signs (last 24 hours): Temp Pulse Resp BP Pulse Ox 98.2 F 95 H 20 121/69 97 05/20/18 14:00 05/20/18 14:00 05/20/18 14:00 05/20/18 14:00 05/20/18 14:00 Intake and Output: 05/20/18 05/20/18 06:59 18:59 Intake Total 240 Balance 240 - Medications Medications: Current Medications Albuterol Sulfate (Albuterol 0.042% Inhal Sonia (1.25mg/3ml) Ud) 1.25 mg IH [id number] PRN PRN Reason: Shortness of Breath Last Admin: 05/20/18 13:22 Dose: 1.25 mg Allopurinol (Zyloprim) 100 mg PO DAILY [facility] Last Admin: 05/20/18 09:02 Dose: 100 mg Aspirin (Aspirin Chewable) 81 mg PO DAILY [facility] Last Admin: 05/20/18 09:02 Dose: 81 mg Atorvastatin Calcium (Lipitor) 20 mg PO DIN [facility] Last Admin: 05/19/18 17:01 Dose: 20 mg Carvedilol (Coreg) 3.125 mg PO BID [facility] Last Admin: 05/20/18 09:02 Dose: 3.125 mg Daptomycin 320 mg/ Sodium (Chloride) 100 mls @ 200 mls/hr IV Q48H [facility] Stop: 05/21/18 12:01 Last Admin: 05/20/18 13:32 Dose: 200 mls/hr Insulin Detemir (Levemir) 30 unit SC Q12 [facility] Insulin Human Regular (Humulin R Med) 0 units SC ACHS [facility]; Protocol Last Admin: 05/20/18 12:48 Dose: 7 units Montelukast Sodium (Singulair) 10 mg PO DAILY [facility] (Fluvoxamine [Luvox] (25 Mg)) 25 mg PO BID [facility] Last Admin: 05/20/18 13:34 Dose: Not Given Nortriptyline HCl (Pamelor) 100 mg PO HS [facility] Last Admin: 05/19/18 21:53 Dose: 100 mg Oxycodone/Acetaminophen (Percocet 5/325 Mg Tab) 2 tab PO Q6H PRN PRN Reason: Pain, moderate (4-7) Stop: 05/22/18 14:58 Last Admin: 05/20/18 13:51 Dose: 2 tab Pantoprazole Sodium (Protonix Ec Tab) 20 mg PO DAILY [facility] Last Admin: 05/20/18 09:02 Dose: 20 mg Quetiapine Fumarate (Seroquel Xr) 100 mg PO HS [facility]; Protocol Last Admin: 05/19/18 21:52 Dose: 100 mg - Labs Labs: 05/19/18 07:30 05/19/18 07:30 PT 14.7 SECONDS (9.4-12.5) H 05/15/18 17:45 INR 1.32 05/15/18 17:45 APTT 51.1 Seconds (26.9-38.3) H 05/15/18 17:45 Assessment and Plan - Assessment and Plan (Free Text) Assessment: Infectious diseases Attending Physician Attestation Patient seen and examined, discussed with medical insurance clerk. I have reviewed the patient's history of present illness, past medical, social, personal and family histories, pertinent physical exam findings, course so far in this hospital admission, pertinent laboratory and imaging results. I agree with the above findings, assessment and plan. In addition, continue Daptomycin for MSSA left foot skin/ skin structure infection with skin graft. Discussed with Dr. Bills and the left foot has much improved swelling, much less erythema. Complete 7-10 days total antibiotics. Bone scan showing post-op changes. Will follow up with Dr. Bills as an outpatient. Will repeat CPK tomorrow.
--- NOTE | 2018-05-20 10:16 | CP.PCM.PN ---
Subjective - Date & Time of Evaluation Date of Evaluation: 05/20/18 Time of Evaluation: 10:13 - Subjective Subjective: Podiatry progress note for Dr. Little/Negar 58F seen and evaluated this AM with Dr. Bills for left foot TMA wound. Patient resting comfortably, NAD. Patient offers no new complaints to LLE. Dressing clean/dry/intact. Denies n/v/f/d/c/sob/ryan/cp. Objective - Vital Signs/Intake and Output Vital Signs (last 24 hours): Temp Pulse Resp BP Pulse Ox 98.2 F 98 H 18 112/65 95 05/20/18 06:00 05/20/18 09:02 05/20/18 06:00 05/20/18 09:02 05/20/18 06:00 Intake and Output: 05/20/18 05/20/18 06:59 18:59 Intake Total 240 Balance 240 - Medications Medications: Current Medications Albuterol Sulfate (Albuterol 0.042% Inhal Sonia (1.25mg/3ml) Ud) 1.25 mg IH [id number] PRN PRN Reason: Shortness of Breath Allopurinol (Zyloprim) 100 mg PO DAILY [facility] Last Admin: 05/20/18 09:02 Dose: 100 mg Aspirin (Aspirin Chewable) 81 mg PO DAILY [facility] Last Admin: 05/20/18 09:02 Dose: 81 mg Atorvastatin Calcium (Lipitor) 20 mg PO DIN [facility] Last Admin: 05/19/18 17:01 Dose: 20 mg Carvedilol (Coreg) 3.125 mg PO BID [facility] Last Admin: 05/20/18 09:02 Dose: 3.125 mg Daptomycin 320 mg/ Sodium (Chloride) 100 mls @ 200 mls/hr IV Q48H [facility] Stop: 05/21/18 12:01 Last Admin: 05/18/18 12:07 Dose: 200 mls/hr Insulin Detemir (Levemir) 30 unit SC BID [facility] Last Admin: 05/20/18 09:01 Dose: 30 units Insulin Human Regular (Humulin R Med) 0 units SC ACHS [facility]; Protocol Last Admin: 05/20/18 08:59 Dose: 3 units Montelukast Sodium (Singulair) 10 mg PO DAILY [facility] Last Admin: 05/19/18 12:01 Dose: 10 mg (Fluvoxamine [Luvox] (25 Mg)) 25 mg PO BID [facility] Last Admin: 05/19/18 17:05 Dose: Not Given Nortriptyline HCl (Pamelor) 100 mg PO [facility] Last Admin: 05/19/18 21:53 Dose: 100 mg Oxycodone/Acetaminophen (Percocet 5/325 Mg Tab) 2 tab PO Q6H PRN PRN Reason: Pain, moderate (4-7) Stop: 05/22/18 14:58 Last Admin: 05/19/18 21:56 Dose: 2 tab Pantoprazole Sodium (Protonix Ec Tab) 20 mg PO DAILY [facility] Last Admin: 05/20/18 09:02 Dose: 20 mg Quetiapine Fumarate (Seroquel Xr) 100 mg PO [facility]; Protocol Last Admin: 05/19/18 21:52 Dose: 100 mg - Labs Labs: 05/19/18 07:30 05/19/18 07:30 PT 14.7 SECONDS (9.4-12.5) H 05/15/18 17:45 INR 1.32 05/15/18 17:45 APTT 51.1 Seconds (26.9-38.3) H 05/15/18 17:45 - Constitutional Appears: Well, Non-toxic, No Acute Distress - Head Exam Head Exam: ATRAUMATIC, NORMOCEPHALIC - Extremities Exam Additional comments: LLE focused VASC: DP/PT 2/4 , Temp gradient warm to warm from proximal to distal. No edema appreciated to L lower extremity NEURO: Gross and protective sensations are diminished DERM: TMA amputation site appears granular with some evidence of fibrotic tissue; graft application sites still adhered with garrett intact at the borders; mild erythema periwound and dorsally at the proximal aspect of the foot; no streaking or clinical signs of infection present ORTHO: no pain on palpation to the graft TMA sites; no other gross pathology noted - Neurological Exam Neurological Exam: Alert, Awake, Oriented x3 - Psychiatric Exam Psychiatric exam: Normal Affect, Normal Mood Assessment and Plan - Assessment and Plan (Free Text) Assessment: 58F s/p left TMA with graft application + left foot cellulitis Plan: Patient seen and evaluated with Dr. Bills VSS, WBC 9.4 (05/19) Bone scan - severe cellulitis left lower extremity w/o evidence of acute osteomyelitis Continue abx per ID Local woundcare - 4 garrett removed from area where graft lifting off, partially removed with sterile scissors; dressed with xeroform and DSD Podiatry will continue to follow
[2018-05-20] MEDS: Albuterol 0.042% Inhal Sol (1.25 mg/3 mL) UD IH PRN (13:22)
--- NOTE | 2018-05-20 13:22 | CP.PCM.PCO ---
Physician Communication Note - Physician Communication Note Physician Communication Note: Per ID, needs dapto until Sunday, then will switch to Zyvox x3days.
[2018-05-20] MEDS: Oxycodone/Acetaminophen 5/325 mg Tab PO PRN ×2 (13:51→22:45)
--- NOTE | 2018-05-20 17:26 | PN ---
DATE: 05/20/2018 SUBJECTIVE: The patient is 58 years old, seen and examined, doing a lot better. No fever, no chills, no nausea, no vomiting. Eating and tolerating. Blood sugar is running a little high. PHYSICAL EXAMINATION: VITAL SIGNS: The patient is afebrile, pulse 98, respirations 18, blood pressure 112/65. LUNGS: Bilateral fair air flow. No rhonchi or crackle. HEART: S1 and S2 audible. ABDOMEN: Soft, obese, nontender, no rebound, no guarding. NEUROLOGIC: The patient is awake, alert, oriented. Able to communicate. EXTREMITIES: Her left TMA stump is in a dressing. Bilateral legs, no edema. LABORATORY DATA: Blood sugar was 243 this morning. ASSESSMENT: 1. Left transmetatarsal amputation infection. The patient has Streptococcus aureus, Acinetobacter baumannii, wound infection. 2. Poorly controlled diabetes. 3. Hypertension. 4. Hyperlipidemia. 5. Chronic anemia. 6. Acute on chronic renal insufficiency. PLAN: So the plan is, I will try to adjust the patient's medication. Continue on Protonix, continue on Seroquel. She is on insulin coverage before meals. Continue daptomycin. We will discuss further consult and will follow up in the a.m. Colt Zhu MD
--- NOTE | 2018-05-20 18:46 | PN ---
DATE: 05/20/2018 SUBJECTIVE: The patient is seen lying in bed. She is awake. She is alert. She is comfortable. She denies any pain. She still has some cough. PHYSICAL EXAMINATION: GENERAL: Middle-aged lady lying in bed. VITAL SIGNS: Blood pressure 121/69, heart rate 95, respiratory rate 20, and temperature 98.2. HEENT: Normocephalic and atraumatic, positive pallor. NECK: Supple. No JVD. LUNGS: Bilateral equal air entry, bilateral rhonchi, crackles left base greater than right base. CARDIAC: S1 and S2, regular rate and rhythm. No murmur. No rub. ABDOMEN: Soft, nondistended, and nontender. Bowel sounds present. EXTREMITIES: Dressing of the left foot. INTAKE AND OUTPUT: Not charted. LABORATORY DATA: WBC 9.4, hemoglobin 8.6, hematocrit 27.6, and platelets 294. Sodium 140, potassium 4.7, chloride 107, CO2 of 27, BUN 47, creatinine 2.4, glucose 106, calcium 10.1, phosphorus 5.3, and magnesium 1.8. CURRENT MEDICATIONS: Albuterol, aspirin, Coreg 3.125 b.i.d., daptomycin every 48 hours, Levemir insulin, Lipitor 20, Pamelor, Percocet, Seroquel, Singulair, and Zyloprim. ASSESSMENT: 1. Infected left foot stump/severe cellulitis. 2. Jyr-naefjkv-ospvcqtrm diabetes mellitus. 3. Hypertension. 4. Chronic kidney disease stage III/IV. 5. Anemia of chronic disease. 6. Neuropathy. PLAN: 1. Continue current antihypertensives. 2. Antibiotics as per ID recommendations, daptomycin until Sunday and then Zyvox x3 days p.o. 3. Discharge planning. 4. Wound care as per Podiatry. Elva Frank MD
[2018-05-20] MEDS: QUEtiapine 50 mg XR Tab PO SCH (22:40)
[2018-05-21] MEDS: Insulin Reg-MEDIUM-Coverage SC SCH ×4 (07:30→21:45)
--- NOTE | 2018-05-21 08:15 | CP.PCM.PN ---
<Clarence Tovar - Last Filed: 05/21/18 12:17> Subjective - Date & Time of Evaluation Date of Evaluation: 05/21/18 Time of Evaluation: 07:00 - Subjective Subjective: Infectious disease progress note: Pt seen and examined at bedside. No acute events overnight. Still c/o mild LLE pain and some discharge. But overall doing better. 12 Point ROS performed and neg other than stated above. Objective - Vital Signs/Intake and Output Vital Signs (last 24 hours): Temp Pulse Resp BP Pulse Ox 98.2 F 78 20 123/56 L 97 05/20/18 14:00 05/20/18 17:16 05/20/18 14:00 05/20/18 17:16 05/20/18 14:00 Intake and Output: 05/21/18 05/21/18 06:59 18:59 Intake Total 720 Balance 720 - Medications Medications: Current Medications Albuterol Sulfate (Albuterol 0.042% Inhal Sonia (1.25mg/3ml) Ud) 1.25 mg IH [id number] PRN PRN Reason: Shortness of Breath Last Admin: 05/20/18 13:22 Dose: 1.25 mg Allopurinol (Zyloprim) 100 mg PO DAILY [facility] Last Admin: 05/20/18 09:02 Dose: 100 mg Aspirin (Aspirin Chewable) 81 mg PO DAILY [facility] Last Admin: 05/20/18 09:02 Dose: 81 mg Atorvastatin Calcium (Lipitor) 20 mg PO DIN [facility] Last Admin: 05/20/18 17:15 Dose: 20 mg Carvedilol (Coreg) 3.125 mg PO BID [facility] Last Admin: 05/20/18 17:16 Dose: 3.125 mg Daptomycin 320 mg/ Sodium (Chloride) 100 mls @ 200 mls/hr IV Q48H [facility] Stop: 05/21/18 12:01 Last Admin: 05/20/18 13:32 Dose: 200 mls/hr Insulin Detemir (Levemir) 30 unit SC Q12 [facility] Last Admin: 05/20/18 22:39 Dose: 30 unit Insulin Human Regular (Humulin R Med) 0 units SC ACHS [facility]; Protocol Last Admin: 05/20/18 22:39 Dose: Not Given Montelukast Sodium (Singulair) 10 mg PO DAILY [facility] (Fluvoxamine [Luvox] (25 Mg)) 25 mg PO BID [facility] Last Admin: 05/20/18 17:15 Dose: Not Given Nortriptyline HCl (Pamelor) 100 mg PO [facility] Last Admin: 05/20/18 22:41 Dose: 100 mg Oxycodone/Acetaminophen (Percocet 5/325 Mg Tab) 2 tab PO Q6H PRN PRN Reason: Pain, moderate (4-7) Stop: 05/22/18 14:58 Last Admin: 05/20/18 22:45 Dose: 2 tab Pantoprazole Sodium (Protonix Ec Tab) 20 mg PO DAILY [facility] Last Admin: 05/20/18 09:02 Dose: 20 mg Quetiapine Fumarate (Seroquel Xr) 100 mg PO [facility]; Protocol Last Admin: 05/20/18 22:40 Dose: 100 mg - Labs Labs: 05/19/18 07:30 05/19/18 07:30 PT 14.7 SECONDS (9.4-12.5) H 05/15/18 17:45 INR 1.32 05/15/18 17:45 APTT 51.1 Seconds (26.9-38.3) H 05/15/18 17:45 - Constitutional Appears: No Acute Distress - Head Exam Head Exam: ATRAUMATIC, NORMOCEPHALIC - Eye Exam Eye Exam: EOMI - ENT Exam ENT Exam: Mucous Membranes Moist - Cardiovascular Exam Cardiovascular Exam: RRR, +S1, +S2 - GI/Abdominal Exam GI & Abdominal Exam: Soft - Extremities Exam Additional comments: LLE dressing in place - Neurological Exam Neurological Exam: Alert, Awake - Psychiatric Exam Psychiatric exam: Normal Mood - Skin Skin Exam: Dry, Normal Color Assessment and Plan - Assessment and Plan (Free Text) Assessment: 58F with PMHx of DM s/p L TMA amputation in 03/2018 s/p recent left foot graft, presents with cellulites with MSSA skin infection. Bone scan - severe cellulites and no osteo - Cont Daptomycin for MSSA skin infection for total of 7-10 days - F/u septic work up - F/u podiatry recs - erythema and edema better - Cont to monitor for any changes Case and plan was reviewed and discussed with Dr Peacock. <Jan Peacock - Last Filed: 05/21/18 13:55> Objective - Vital Signs/Intake and Output Vital Signs (last 24 hours): Temp Pulse Resp BP Pulse Ox 98.4 F 96 H 20 120/73 97 05/21/18 06:00 05/21/18 06:00 05/21/18 06:00 05/21/18 06:00 05/21/18 06:00 Intake and Output: 05/21/18 05/21/18 06:59 18:59 Intake Total 720 Balance 720 - Medications Medications: Current Medications Albuterol Sulfate (Albuterol 0.042% Inhal Sonia (1.25mg/3ml) Ud) 1.25 mg IH [id number] PRN PRN Reason: Shortness of Breath Last Admin: 05/20/18 13:22 Dose: 1.25 mg Allopurinol (Zyloprim) 100 mg PO DAILY [facility] Last Admin: 05/21/18 09:59 Dose: 100 mg Aspirin (Aspirin Chewable) 81 mg PO DAILY [facility] Last Admin: 05/21/18 09:58 Dose: 81 mg Atorvastatin Calcium (Lipitor) 20 mg PO DIN [facility] Last Admin: 05/20/18 17:15 Dose: 20 mg Carvedilol (Coreg) 3.125 mg PO BID [facility] Last Admin: 05/21/18 09:58 Dose: 3.125 mg Darbepoetin Manjit (Aranesp) 60 mcg SC ONCE ONE Stop: 05/22/18 10:01 Insulin Detemir (Levemir) 30 unit SC Q12 [facility] Last Admin: 05/21/18 09:59 Dose: 30 unit Insulin Human Regular (Humulin R Med) 0 units SC [facility]; Protocol Last Admin: 05/21/18 12:00 Dose: 5 units Montelukast Sodium (Singulair) 10 mg PO DAILY [facility] Last Admin: 05/21/18 09:58 Dose: 10 mg (Fluvoxamine [Luvox] (25 Mg)) 25 mg PO BID [facility] Last Admin: 05/21/18 10:14 Dose: Not Given Nortriptyline HCl (Pamelor) 100 mg PO HS [facility] Last Admin: 05/20/18 22:41 Dose: 100 mg Oxycodone/Acetaminophen (Percocet 5/325 Mg Tab) 2 tab PO Q6H PRN PRN Reason: Pain, moderate (4-7) Stop: 05/22/18 14:58 Last Admin: 05/20/18 22:45 Dose: 2 tab Pantoprazole Sodium (Protonix Ec Tab) 20 mg PO DAILY [facility] Last Admin: 05/21/18 09:58 Dose: 20 mg Quetiapine Fumarate (Seroquel Xr) 100 mg PO HS [facility]; Protocol Last Admin: 05/20/18 22:40 Dose: 100 mg - Labs Labs: 05/19/18 07:30 05/19/18 07:30 PT 14.7 SECONDS (9.4-12.5) H 05/15/18 17:45 INR 1.32 05/15/18 17:45 APTT 51.1 Seconds (26.9-38.3) H 05/15/18 17:45 Assessment and Plan - Assessment and Plan (Free Text) Assessment: Infectious diseases Attending Physician Attestation Patient seen and examined, discussed with medical accounting clerk. I have reviewed the patient's history of present illness, past medical, social, personal and family histories, pertinent physical exam findings, course so far in this hospital admission, pertinent laboratory and imaging results. I agree with the above findings, assessment and plan. In addition, continue Daptomycin for MSSA Skin/skin structure infection with a left foot graft in this patient with history of osteomyelitis of same foot with MSSA and necrotizing infection, S/P amputation. Bone scan showing post-op changed. Discussed this with Podiatry. Complete 7-10 days of antibiotics and patient will follow up with Podiatry as an outpatient. Repeat CPK level is 36.
[2018-05-21] MEDS: Pantoprazole 20 mg EC Tab PO SCH (09:58)
[2018-05-21] MEDS: Insulin Detemir 100 units/ml Vial (Levemir) SC SCH ×2 (09:59→21:49)
--- NOTE | 2018-05-21 13:19 | CP.PCM.PN ---
<Rupert Wall - Last Filed: 05/21/18 13:17> Subjective - Date & Time of Evaluation Date of Evaluation: 05/21/18 Time of Evaluation: 13:17 - Subjective Subjective: Podiatry progress note for Dr. Little/Negar 58F seen and evaluated this AM with Dr. Little for left foot TMA wound. Patient resting comfortably, NAD. Patient offers no new complaints to LLE. Dressing clean/dry/intact. Patient states she noticed some drainage at dressing. Denies n/v/f/d/c/sob/ryan/cp. Objective - Vital Signs/Intake and Output Vital Signs (last 24 hours): Temp Pulse Resp BP Pulse Ox 98.4 F 96 H 20 120/73 97 05/21/18 06:00 05/21/18 06:00 05/21/18 06:00 05/21/18 06:00 05/21/18 06:00 Intake and Output: 05/21/18 05/21/18 06:59 18:59 Intake Total 720 Balance 720 - Medications Medications: Current Medications Albuterol Sulfate (Albuterol 0.042% Inhal Sonia (1.25mg/3ml) Ud) 1.25 mg IH [id number] PRN PRN Reason: Shortness of Breath Last Admin: 05/20/18 13:22 Dose: 1.25 mg Allopurinol (Zyloprim) 100 mg PO DAILY [facility] Last Admin: 05/21/18 09:59 Dose: 100 mg Aspirin (Aspirin Chewable) 81 mg PO DAILY [facility] Last Admin: 05/21/18 09:58 Dose: 81 mg Atorvastatin Calcium (Lipitor) 20 mg PO DIN [facility] Last Admin: 05/20/18 17:15 Dose: 20 mg Carvedilol (Coreg) 3.125 mg PO BID [facility] Last Admin: 05/21/18 09:58 Dose: 3.125 mg Darbepoetin Manjit (Aranesp) 60 mcg SC ONCE ONE Stop: 05/22/18 10:01 Insulin Detemir (Levemir) 30 unit SC Q12 [facility] Last Admin: 05/21/18 09:59 Dose: 30 unit Insulin Human Regular (Humulin R Med) [address] [facility]; Protocol Last Admin: 05/21/18 12:00 Dose: 5 units Montelukast Sodium (Singulair) 10 mg PO DAILY [facility] Last Admin: 05/21/18 09:58 Dose: 10 mg (Fluvoxamine [Luvox] (25 Mg)) 25 mg PO BID [facility] Last Admin: 05/21/18 10:14 Dose: Not Given Nortriptyline HCl (Pamelor) 100 mg PO [facility] Last Admin: 05/20/18 22:41 Dose: 100 mg Oxycodone/Acetaminophen (Percocet 5/325 Mg Tab) 2 tab PO Q6H PRN PRN Reason: Pain, moderate (4-7) Stop: 05/22/18 14:58 Last Admin: 05/20/18 22:45 Dose: 2 tab Pantoprazole Sodium (Protonix Ec Tab) 20 mg PO DAILY [facility] Last Admin: 05/21/18 09:58 Dose: 20 mg Quetiapine Fumarate (Seroquel Xr) 100 mg PO [facility]; Protocol Last Admin: 05/20/18 22:40 Dose: 100 mg - Labs Labs: 05/19/18 07:30 05/19/18 07:30 PT 14.7 SECONDS (9.4-12.5) H 05/15/18 17:45 INR 1.32 05/15/18 17:45 APTT 51.1 Seconds (26.9-38.3) H 05/15/18 17:45 - Constitutional Appears: Well, Non-toxic, No Acute Distress - Head Exam Head Exam: ATRAUMATIC, NORMOCEPHALIC - Extremities Exam Additional comments: LLE focused VASC: DP/PT 2/4 , Temp gradient warm to warm from proximal to distal. No edema appreciated to L lower extremity NEURO: Gross and protective sensations are diminished DERM: TMA amputation site appears granular with some evidence of fibrotic tissue; graft application sites still adhered with garrett intact at the borders; mild erythema periwound and dorsally at the proximal aspect of the foot; no streaking or clinical signs of infection present ORTHO: no pain on palpation to the graft TMA sites; no other gross pathology noted - Neurological Exam Neurological Exam: Alert, Awake, Oriented x3 - Psychiatric Exam Psychiatric exam: Normal Affect, Normal Mood Assessment and Plan - Assessment and Plan (Free Text) Assessment: 58F s/p left TMA with graft application + left foot cellulitis Plan: Patient seen and evaluated with Dr. Dworkin VSS, WBC 9.4 (05/19) Bone scan - severe cellulitis left lower extremity w/o evidence of acute osteomyelitis Continue abx per ID Local woundcare - sterile saline cleanse, xeroform, DSD Podiatry will continue to follow <Rodríguez Little - Last Filed: 05/21/18 16:25> Objective - Vital Signs/Intake and Output Vital Signs (last 24 hours): Temp Pulse Resp BP Pulse Ox 98.4 F 96 H 20 120/73 97 05/21/18 06:00 05/21/18 06:00 05/21/18 06:00 05/21/18 06:00 05/21/18 06:00 Intake and Output: 05/21/18 05/21/18 06:59 18:59 Intake Total 720 780 Balance 720 780 - Medications Medications: Current Medications Albuterol Sulfate (Albuterol 0.042% Inhal Sonia (1.25mg/3ml) Ud) 1.25 mg IH [id number] PRN PRN Reason: Shortness of Breath Last Admin: 05/20/18 13:22 Dose: 1.25 mg Allopurinol (Zyloprim) 100 mg PO DAILY [facility] Last Admin: 05/21/18 09:59 Dose: 100 mg Aspirin (Aspirin Chewable) 81 mg PO DAILY [facility] Last Admin: 05/21/18 09:58 Dose: 81 mg Atorvastatin Calcium (Lipitor) 20 mg PO DIN [facility] Last Admin: 05/20/18 17:15 Dose: 20 mg Carvedilol (Coreg) 3.125 mg PO BID [facility] Last Admin: 05/21/18 09:58 Dose: 3.125 mg Darbepoetin Manjit (Aranesp) 60 mcg SC ONCE ONE Stop: 05/22/18 10:01 Insulin Detemir (Levemir) 30 unit SC Q12 [facility] Last Admin: 05/21/18 09:59 Dose: 30 unit Insulin Human Regular (Humulin R Med) [address] [facility]; Protocol Last Admin: 05/21/18 12:00 Dose: 5 units Montelukast Sodium (Singulair) 10 mg PO DAILY [facility] Last Admin: 05/21/18 09:58 Dose: 10 mg (Fluvoxamine [Luvox] (25 Mg)) 25 mg PO BID [facility] Last Admin: 05/21/18 10:14 Dose: Not Given Nortriptyline HCl (Pamelor) 100 mg PO HS [facility] Last Admin: 05/20/18 22:41 Dose: 100 mg Oxycodone/Acetaminophen (Percocet 5/325 Mg Tab) 2 tab PO Q6H PRN PRN Reason: Pain, moderate (4-7) Stop: 05/22/18 14:58 Last Admin: 05/20/18 22:45 Dose: 2 tab Pantoprazole Sodium (Protonix Ec Tab) 20 mg PO DAILY [facility] Last Admin: 05/21/18 09:58 Dose: 20 mg Quetiapine Fumarate (Seroquel Xr) 100 mg PO HS [facility]; Protocol Last Admin: 05/20/18 22:40 Dose: 100 mg - Labs Labs: 05/19/18 07:30 05/19/18 07:30 PT 14.7 SECONDS (9.4-12.5) H 05/15/18 17:45 INR 1.32 05/15/18 17:45 APTT 51.1 Seconds (26.9-38.3) H 05/15/18 17:45 Attending/Attestation - Attestation I have personally seen and examined this patient.: Yes I have fully participated in the care of the patient.: Yes I have reviewed all pertinent clinical information, including history, physical exam and plan: Yes
[2018-05-21] MEDS ORDERED: Albuterol 0.083% Inhal Sol (2.5 mg/3 mL) UD ONE (16:45)
--- NOTE | 2018-05-21 18:09 | PN ---
DATE: 05/21/2018 SUBJECTIVE: The patient is currently seen sitting up in a chair. She has no pain in her left foot. She remains on antibiotic therapy through the end of this week. MEDICATIONS Medication list reviewed. The patient is currently on Luvox, albuterol, aspirin, Coreg, sliding scale insulin, Levemir, Lipitor, Pamelor, Percocet p.r.n., Protonix, Seroquel, Singulair, and allopurinol. OBJECTIVE: INTAKE/OUTPUT: Intake is 720, output is not charted. VITAL SIGNS: Blood pressure is 120/73, temperature 98.4, pulse of 96 with a respiratory rate of 20. Pulse ox is 97%. HEENT: Shows her to be normocephalic, atraumatic. Conjunctivae are pale. Sclera are nonicteric. NECK: Supple. No neck vein distention. CHEST: Clear to auscultation and percussion. No rales, rhonchi or wheezing. CARDIOVASCULAR: Shows a regular rate and rhythm with MR/TR. No S3, no S4. No rub. ABDOMEN: Soft. Bowel sounds normal. No rebound, guarding or masses. EXTREMITIES: Show dressing over her left TMA and skin graft site. No appreciable erythema extending above the dressing. No edema of her lower extremity. LABORATORY DATA AND IMAGING: CBC, white blood cell count on 05/19/2018, 9.4 with a hemoglobin of 8.6 and a platelet count of 294,000. Chemistries on 05/19/2018 showed normal electrolytes BUN 47 with creatinine of 2.4. Phosphorus is mildly elevated at 5.3. Magnesium 1.8 with a calcium level of 10.1. Her glucose control has been acceptable, her last sugar was 161. Microbiology, no cultures available for comment. ASSESSMENT: 1. Infected left stump with cellulitis, no evidence for osteomyelitis on bone scan. The patient is receiving appropriate antibiotic therapy under the guidance of Infectious Disease. She is status post a second skin graft to the left TMA site 6 days ago on 05/15/2018. 2. History of heg-lvvvstp-vdiuvnmdk diabetes mellitus, currently on insulin with acceptable glucose control. 3. History of hypertension with left ventricular hypertrophy with mitral regurgitation/tricuspid regurgitation, currently stable. 4. History of baseline chronic kidney disease stage III/IV. Last year, the patient had a brief run of acute dialysis secondary to a significant rise in her BUN and creatinine with hyperkalemia and metabolic acidosis. 5. History of anemia secondary to chronic kidney disease. Iron saturations back in March were okay. We will check iron saturations and the patient may receive oral iron and Aranesp. Her hemoglobin appears to be stable in the mid 8 range. 6. History of neuropathy, currently stable. 7. History of atherosclerotic heart disease, status post percutaneous transluminal coronary angioplasty and stent, currently stable. 8. History of hypertension. The patient is on Coreg with excellent blood pressure control. She is at present not receiving angiotensin receptor bev therapy. 9. History of hyperphosphatemia, likely secondary to secondary hyperparathyroidism. The patient may be started on binder therapy. I will start her on PhosLo for control of secondary hyperparathyroidism. PLAN: 1. Discussed with the patient and her . Continue antibiotic therapy until the end of the week under the guidance of Infectious Disease. 2. Wound care as per Podiatry. 3. Aranesp and iron supplements as noted above. 4. Start binder therapy and continue renal diet. Brent Sheth MD MTDD
[2018-05-21] MEDS: Oxycodone/Acetaminophen 5/325 mg Tab PO PRN (19:10)
[2018-05-21] MEDS: QUEtiapine 50 mg XR Tab PO SCH (21:46)
--- NOTE | 2018-05-22 07:44 | PN ---
DATE: 05/21/2018 SUBJECTIVE: The patient is 58 years old, seen and examined, doing well. Minimal discomfort to the left thumb, otherwise, doing better. PHYSICAL EXAMINATION: VITAL SIGNS: She is afebrile, pulse 96, respiration 20, and blood pressure 120/73. LUNGS: Bilateral fair airflow. No rhonchi or crackles. HEART: S1 and S2 audible. ABDOMEN: Soft and nontender. No rebound. No guarding. NEUROLOGIC: The patient is awake, alert, oriented, and able to communicate. LABORATORY DATA: Blood sugar is 161 this morning, last time it was 142. ASSESSMENT: 1. Left foot cellulitis. 2. Streptococcus aureus wound infection. 3. Status post skin grafting. 4. Insulin-dependent diabetes. 5. History of hypertension, currently hypotension. 6. Acute and chronic renal failure. PLAN: The patient's MAR reviewed. Continue current medication. Continue on IV daptomycin and it will be switched to p.o. Zyvox on Sunday and will be sent home. Colt Zhu MD
[2018-05-22 07:56] LABS: HEMOGLOBIN 8.8 g/dL (12.0-16.0); MEAN CELL VOLUME 87.5 fl (80.0-105.0); MEAN CORPUSCULAR HEMOGLOBIN 27.6 pg (25.0-35.0); MEAN CORPUSCULAR HGB CONC 31.5 g/dl (31.0-37.0); RBC 3.19 10^6/uL (3.5-6.1); WHITE BLOOD COUNT 9.8 10^3/uL (4.5-11.0)
[2018-05-22] MEDS: Insulin Reg-MEDIUM-Coverage SC SCH ×4 (08:03→22:00)
[2018-05-22 08:12] LABS: ALB/GLOB RATIO 0.9 (1.1-1.8); ALBUMIN 3.8 g/dL (3.0-4.8); CALCIUM 10.6 mg/dL (8.4-10.5)
[2018-05-22 08:14] LABS: IRON 53 ug/dL (45-180)
[2018-05-22 08:23] LABS: % IRON SATURATION 22 % (20-55); TOTAL IRON BINDING CAPACITY 241 ug/dL (265-497)
[2018-05-22] MEDS: Insulin Detemir 100 units/ml Vial (Levemir) SC SCH ×2 (09:11→23:18)
[2018-05-22] MEDS: Pantoprazole 20 mg EC Tab PO SCH (09:12)
[2018-05-22] MEDS ORDERED: Darbepoetin Alfa 60 mcg/ml Inj SC ONE (10:00)
--- NOTE | 2018-05-22 10:15 | CP.PCM.PN ---
Subjective - Date & Time of Evaluation Date of Evaluation: 05/22/18 Time of Evaluation: 10:13 - Subjective Subjective: Podiatry progress note for Dr. Little/Negar 58F seen and evaluated this AM for left foot TMA wound. Patient resting comfortably, NAD. Patient offers no new complaints to LLE. Dressing clean/dry/intact. Patient states she noticed some drainage at dressing. Denies n/v/f/d/c/sob/ryan/cp. Objective - Vital Signs/Intake and Output Vital Signs (last 24 hours): Temp Pulse Resp BP Pulse Ox 97.9 F 89 18 119/69 95 05/22/18 07:06 05/22/18 09:11 05/22/18 07:06 05/22/18 09:11 05/22/18 07:06 - Medications Medications: Current Medications Albuterol Sulfate (Albuterol 0.042% Inhal Sonia (1.25mg/3ml) Ud) 1.25 mg IH [id number] PRN PRN Reason: Shortness of Breath Last Admin: 05/20/18 13:22 Dose: 1.25 mg Allopurinol (Zyloprim) 100 mg PO DAILY [facility] Last Admin: 05/22/18 09:12 Dose: 100 mg Aspirin (Aspirin Chewable) 81 mg PO DAILY [facility] Last Admin: 05/22/18 09:11 Dose: 81 mg Atorvastatin Calcium (Lipitor) 20 mg PO DIN [facility] Last Admin: 05/21/18 17:07 Dose: 20 mg Carvedilol (Coreg) 3.125 mg PO BID [facility] Last Admin: 05/22/18 09:11 Dose: 3.125 mg Insulin Detemir (Levemir) 30 unit SC Q12 [facility] Last Admin: 05/22/18 09:11 Dose: 30 unit Insulin Human Regular (Humulin R Med) 0 units SC ACHS [facility]; Protocol Last Admin: 05/22/18 08:03 Dose: 1 units Montelukast Sodium (Singulair) 10 mg PO DAILY [facility] Last Admin: 05/22/18 09:12 Dose: 10 mg (Fluvoxamine [Luvox] (25 Mg)) 25 mg PO BID [facility] Last Admin: 05/22/18 09:11 Dose: Not Given Nortriptyline HCl (Pamelor) 100 mg PO HS [facility] Last Admin: 05/21/18 21:45 Dose: 100 mg Oxycodone/Acetaminophen (Percocet 5/325 Mg Tab) 2 tab PO Q6H PRN PRN Reason: Pain, moderate (4-7) Stop: 05/22/18 14:58 Last Admin: 05/21/18 19:10 Dose: 2 tab Pantoprazole Sodium (Protonix Ec Tab) 20 mg PO DAILY [facility] Last Admin: 05/22/18 09:12 Dose: 20 mg Quetiapine Fumarate (Seroquel Xr) 100 mg PO HS [facility]; Protocol Last Admin: 05/21/18 21:46 Dose: 100 mg - Labs Labs: 05/22/18 07:45 05/22/18 07:45 PT 14.7 SECONDS (9.4-12.5) H 05/15/18 17:45 INR 1.32 05/15/18 17:45 APTT 51.1 Seconds (26.9-38.3) H 05/15/18 17:45 - Constitutional Appears: Well, Non-toxic, No Acute Distress - Head Exam Head Exam: ATRAUMATIC, NORMOCEPHALIC - Extremities Exam Additional comments: LLE focused VASC: DP/PT 2/4 , Temp gradient warm to warm from proximal to distal. No edema appreciated to L lower extremity NEURO: Gross and protective sensations are diminished DERM: TMA amputation site appears granular with some evidence of fibrotic tissue; graft application sites still adhered with garrett intact at the borders; mild erythema periwound and dorsally at the proximal aspect of the foot; no streaking or clinical signs of infection present ORTHO: no pain on palpation to the graft TMA sites; no other gross pathology noted - Neurological Exam Neurological Exam: Alert, Awake, Oriented x3 - Psychiatric Exam Psychiatric exam: Normal Affect, Normal Mood Assessment and Plan - Assessment and Plan (Free Text) Assessment: 58F s/p left TMA with graft application + left foot cellulitis Plan: Patient seen and evaluated Discussed in detail with Dr. Negar LIRA, WBC 9.4 (05/19) Bone scan - severe cellulitis left lower extremity w/o evidence of acute osteom yelitis Continue abx per ID Local woundcare - sterile saline cleanse, xeroform, DSD Podiatry will continue to follow
[2018-05-22] MEDS: Albuterol 0.042% Inhal Sol (1.25 mg/3 mL) UD IH PRN ×2 (10:18→20:25)
--- NOTE | 2018-05-22 11:04 | CP.PCM.PN ---
<Clarence Tovar - Last Filed: 05/22/18 13:38> Subjective - Date & Time of Evaluation Date of Evaluation: 05/22/18 Time of Evaluation: 07:40 - Subjective Subjective: Infectious disease progress note: Pt seen and examined at bedside. No acute events overnight. No complaints today. Denies any pain. But overall doing better. 12 Point ROS performed and neg other than stated above. Objective - Vital Signs/Intake and Output Vital Signs (last 24 hours): Temp Pulse Resp BP Pulse Ox 97.9 F 89 18 119/69 95 05/22/18 07:06 05/22/18 09:11 05/22/18 07:06 05/22/18 09:11 05/22/18 07:06 - Medications Medications: Current Medications Albuterol Sulfate (Albuterol 0.042% Inhal Sonia (1.25mg/3ml) Ud) 1.25 mg IH [id number] PRN PRN Reason: Shortness of Breath Last Admin: 05/22/18 10:18 Dose: 1.25 mg Allopurinol (Zyloprim) 100 mg PO DAILY COUNTS [facility] 234 BEDS AT [facility] Last Admin: 05/22/18 09:12 Dose: 100 mg Aspirin (Aspirin Chewable) 81 mg PO DAILY COUNTS INCLUDE 234 BEDS AT [facility] Last Admin: 05/22/18 09:11 Dose: 81 mg Atorvastatin Calcium (Lipitor) 20 mg PO DIN COUNTS INCLUDE 234 BEDS AT [facility] Last Admin: 05/21/18 17:07 Dose: 20 mg Carvedilol (Coreg) 3.125 mg PO BID COUNTS INCLUDE 234 BEDS AT [facility] Last Admin: 05/22/18 09:11 Dose: 3.125 mg Insulin Detemir (Levemir) 30 unit SC Q12 COUNTS INCLUDE 234 BEDS AT [facility] Last Admin: 05/22/18 09:11 Dose: 30 unit Insulin Human Regular (Humulin R Med) 0 units SC ACHS COUNTS INCLUDE 234 BEDS AT [facility]; Protocol Last Admin: 05/22/18 08:03 Dose: 1 units Montelukast Sodium (Singulair) 10 mg PO DAILY COUNTS INCLUDE 234 BEDS AT [facility] Last Admin: 05/22/18 09:12 Dose: 10 mg (Fluvoxamine [Luvox] (25 Mg)) 25 mg PO BID COUNTS INCLUDE 234 BEDS AT [facility] Last Admin: 05/22/18 09:11 Dose: Not Given Nortriptyline HCl (Pamelor) 100 mg PO HS COUNTS INCLUDE 234 BEDS AT [facility] Last Admin: 05/21/18 21:45 Dose: 100 mg Oxycodone/Acetaminophen (Percocet 5/325 Mg Tab) 2 tab PO Q6H PRN PRN Reason: Pain, moderate (4-7) Stop: 05/22/18 14:58 Last Admin: 05/21/18 19:10 Dose: 2 tab Pantoprazole Sodium (Protonix Ec Tab) 20 mg PO DAILY [facility] Last Admin: 05/22/18 09:12 Dose: 20 mg Quetiapine Fumarate (Seroquel Xr) 100 mg PO HS [facility]; Protocol Last Admin: 05/21/18 21:46 Dose: 100 mg - Labs Labs: 05/22/18 07:45 05/22/18 07:45 PT 14.7 SECONDS (9.4-12.5) H 05/15/18 17:45 INR 1.32 05/15/18 17:45 APTT 51.1 Seconds (26.9-38.3) H 05/15/18 17:45 - Constitutional Appears: No Acute Distress - Head Exam Head Exam: ATRAUMATIC, NORMOCEPHALIC - Eye Exam Eye Exam: EOMI - ENT Exam ENT Exam: Mucous Membranes Moist - Respiratory Exam Respiratory Exam: Clear to Ausculation Bilateral. absent: Wheezes - Cardiovascular Exam Cardiovascular Exam: REGULAR RHYTHM, +S1, +S2 - GI/Abdominal Exam GI & Abdominal Exam: Soft. absent: Tenderness - Extremities Exam Extremities Exam: absent: Calf Tenderness, Pedal Edema Additional comments: dressing in place by podiatry - Neurological Exam Neurological Exam: Alert, Awake, Oriented x3 - Psychiatric Exam Psychiatric exam: Normal Mood - Skin Skin Exam: Dry, Warm Assessment and Plan - Assessment and Plan (Free Text) Assessment: 58F with PMHx of DM s/p L TMA amputation in 03/2018 s/p recent left foot graft, presents with cellulites with MSSA skin infection. Bone scan - severe cellulites and no osteo - Cont Daptomycin total of 7-10 days for MSSA infection - F/u podiatry recs - Cont to monitor for any changes Case and plan was reviewed and discussed with Dr Peacock. <Jan Peacock - Last Filed: 05/22/18 14:30> Objective - Vital Signs/Intake and Output Vital Signs (last 24 hours): Temp Pulse Resp BP Pulse Ox 97.9 F 89 18 119/69 95 05/22/18 07:06 05/22/18 09:11 05/22/18 07:06 05/22/18 09:11 05/22/18 07:06 Intake and Output: 05/22/18 05/22/18 06:59 18:59 Intake Total 1320 Balance 1320 - Medications Medications: Current Medications Albuterol Sulfate (Albuterol 0.042% Inhal Sonia (1.25mg/3ml) Ud) 1.25 mg IH [id number] PRN PRN Reason: Shortness of Breath Last Admin: 05/22/18 10:18 Dose: 1.25 mg Allopurinol (Zyloprim) 100 mg PO DAILY COUNTS INCLUDE 234 BEDS AT [facility] Last Admin: 05/22/18 09:12 Dose: 100 mg Aspirin (Aspirin Chewable) 81 mg PO DAILY COUNTS INCLUDE 234 BEDS AT [facility] Last Admin: 05/22/18 09:11 Dose: 81 mg Atorvastatin Calcium (Lipitor) 20 mg PO DIN COUNTS INCLUDE 234 BEDS AT [facility] Last Admin: 05/21/18 17:07 Dose: 20 mg Carvedilol (Coreg) 3.125 mg PO BID COUNTS INCLUDE 234 BEDS AT [facility] Last Admin: 05/22/18 09:11 Dose: 3.125 mg Insulin Detemir (Levemir) 30 unit SC Q12 COUNTS INCLUDE 234 BEDS AT [facility] Last Admin: 05/22/18 09:11 Dose: 30 unit Insulin Human Regular (Humulin R Med) 0 units [facility]CLUDE 234 BEDS AT [facility]; Protocol Last Admin: 05/22/18 12:02 Dose: 3 units Montelukast Sodium (Singulair) 10 mg PO DAILY COUNTS INCLUDE 234 BEDS AT [facility] Last Admin: 05/22/18 09:12 Dose: 10 mg (Fluvoxamine [Luvox] (25 Mg)) 25 mg PO BID COUNTS INCLUDE 234 BEDS AT [facility] Last Admin: 05/22/18 09:11 Dose: Not Given Nortriptyline HCl (Pamelor) 100 mg PO [facility] Last Admin: 05/21/18 21:45 Dose: 100 mg Oxycodone/Acetaminophen (Percocet 5/325 Mg Tab) 2 tab PO Q6H PRN PRN Reason: Pain, moderate (4-7) Stop: 05/22/18 14:58 Last Admin: 05/21/18 19:10 Dose: 2 tab Pantoprazole Sodium (Protonix Ec Tab) 20 mg PO DAILY COUNTS INCLUDE 234 BEDS AT [facility] Last Admin: 05/22/18 09:12 Dose: 20 mg Quetiapine Fumarate (Seroquel Xr) 100 mg PO HS COUNTS INCLUDE 234 BEDS AT [facility]; Protocol Last Admin: 05/21/18 21:46 Dose: 100 mg - Labs Labs: 05/22/18 07:45 05/22/18 07:45 PT 14.7 SECONDS (9.4-12.5) H 05/15/18 17:45 INR 1.32 05/15/18 17:45 APTT 51.1 Seconds (26.9-38.3) H 05/15/18 17:45 Assessment and Plan - Assessment and Plan (Free Text) Assessment: Infectious diseases Attending Physician Attestation Patient seen and examined, discussed with medical accounts receivable specialist. I have reviewed the patient's history of present illness, past medical, social, personal and family histories, pertinent physical exam findings, course so far in this hospital admission, pertinent laboratory and imaging results. I agree with the above findings, assessment and plan. In addition, continue Daptomycin for MSSA Skin/skin structure infection with a left foot graft in this patient with history of osteomyelitis of same foot with MSSA and necrotizing infection, S/P amputation. Bone scan showing post-op changed. Discussed this with Podiatry. Complete 7-10 days of antibiotics and patient will follow up with Podiatry as an outpatient. Repeat CPK level is 36. Discussed with Dr. Bills and Dr. Zhu. Can switch to PO Zyvox to complete the therapy.
--- NOTE | 2018-05-22 13:46 | PN ---
DATE: 05/22/2018 SUBJECTIVE: The patient is a 58 years old seen and examined doing lot better. According Dr. Bills, her wound looks much better, less erythema. PHYSICAL EXAMINATION: VITAL SIGNS: She is afebrile, pulse 89, respirations 18, and blood pressure 119/60. LUNGS: Bilateral fair airflow. No rhonchi or crackles. HEART: S1 and S2 audible. ABDOMEN: Soft and nontender. No rebound and no guarding. NEUROLOGIC: She is awake, alert, and oriented, able to communicate. EXTREMITIES: Bilateral leg no edema. Left TMA stump is in the dressing. LABORATORY DATA: WBC 9.8, hemoglobin 8.8, hematocrit 27.9, platelet 305. Chemistry; sodium 139, potassium 5.1, chloride 109, CO2 of 24, BUN 51, creatinine 2.2, blood sugar 122. Left foot wound growing Staphylococcus aureus and seen DrUte . ASSESSMENT: 1. Left transmetatarsal amputation infection. 2. Status post skin grafting. 3. History of hypertension. 4. Insulin dependent diabetes. 5. Chronic obstructive pulmonary disease. 6. History of depression. PLAN: The patient will receive daptomycin today and one dose on Sunday and after that it will be switched to p.o. Zyvox and will be discharged home on Sunday. Colt Zhu MD
--- NOTE | 2018-05-22 13:54 | PN ---
DATE: 05/22/2018 SUBJECTIVE: The patient is seen lying in bed. She is awake, she is alert, is comfortable. PHYSICAL EXAMINATION: GENERAL: Middle-aged lady lying in bed. VITAL SIGNS: Blood pressure 119/69, heart rate 89, respiratory rate 18, temperature 97.9. HEENT: Normocephalic, atraumatic, positive pallor. NECK: Supple, no JVD. LUNGS: Bilateral equal entry, bilateral equal expansion, minimal basilar rales. CARDIAC: To, and rate rhythm, no murmur, no rub. ABDOMEN: Obese, distended, soft, nontender, bowel sounds present. EXTREMITIES: Dressing of the left foot stump. INTAKE AND OUTPUT: Not charted. LABORATORY DATA: WBC 9.8, hemoglobin 8.8, hematocrit 27.9, platelets 305. Sodium 139, potassium 5.1, chloride 109, CO2 of 34, BUN 51, creatinine 2.2, glucose 158, calcium 10.6, phosphorus 5.6, magnesium 2.0, iron 53, saturation 22, ferritin 322, albumin 3.8. CURRENT MEDICATIONS: DuoNeb, aspirin, Coreg 3.125 twice a day, insulin, Levemir, Lipitor, Percocet, Seroquel, Singulair, Zyloprim, Aranesp 60 mcg given this morning. ASSESSMENT: 1. Stable chronic kidney disease stage III. 2. Infected left foot stump. 3. Severe cellulitis. 4. Non-insulin dependent diabetes mellitus. 5. Hypertension. 6. Hypercalcemia. 7. Severe anemia. PLAN: 1. Replete calcium in a.m. 2. Venofer 200 mg IV piggyback today. 3. Continue antibiotics as per ID recommendations. 4. Continue current antihypertensives. 5. Monitor fingersticks and continue insulin coverage. 6. Avoid nephrotoxins. Elva Frank MD
[2018-05-22] MEDS: Oxycodone/Acetaminophen 5/325 mg Tab PO PRN (18:21)
[2018-05-22] MEDS: QUEtiapine 50 mg XR Tab PO SCH (23:22)
[2018-05-23 07:05] LABS: HEMOGLOBIN 8.4 g/dL (12.0-16.0); MEAN CELL VOLUME 86.9 fl (80.0-105.0); MEAN CORPUSCULAR HEMOGLOBIN 27.5 pg (25.0-35.0); MEAN CORPUSCULAR HGB CONC 31.6 g/dl (31.0-37.0); MEAN PLATELET VOLUME 10.5 fl (7.0-11.0); RBC 3.06 10^6/uL (3.5-6.1); RED CELL DISTRIBUTION WIDTH 16.2 % (11.5-14.5); WHITE BLOOD COUNT 8.7 10^3/uL (4.5-11.0)
[2018-05-23 07:19] LABS: ALB/GLOB RATIO 0.9 (1.1-1.8); ALBUMIN 3.7 g/dL (3.0-4.8); CALCIUM 10.2 mg/dL (8.4-10.5)
[2018-05-23] MEDS: Insulin Reg-MEDIUM-Coverage SC SCH ×4 (08:14→22:00)
[2018-05-23] MEDS: Insulin Detemir 100 units/ml Vial (Levemir) SC SCH ×2 (09:14→22:00)
[2018-05-23] MEDS: Pantoprazole 20 mg EC Tab PO SCH (09:15)
--- NOTE | 2018-05-23 10:25 | CP.PCM.PN ---
Subjective - Date & Time of Evaluation Date of Evaluation: 05/23/18 Time of Evaluation: 10:23 - Subjective Subjective: Podiatry progress note for Dr. Little/Negar 58F seen and evaluated this AM with Dr. Bills for left foot TMA wound. Patient resting comfortably, NAD. Patient offers no new complaints to LLE. Dressing clean/dry/intact. Patient states she noticed some drainage at dressing. Denies n/v/f/d/c/sob/ryan/cp. Objective - Vital Signs/Intake and Output Vital Signs (last 24 hours): Temp Pulse Resp BP Pulse Ox 98.3 F 92 H 18 136/90 98 05/23/18 06:00 05/23/18 09:13 05/23/18 06:00 05/23/18 09:13 05/23/18 06:00 Intake and Output: 05/23/18 05/23/18 06:59 18:59 Intake Total 420 Balance 420 - Medications Medications: Current Medications Albuterol Sulfate (Albuterol 0.042% Inhal Sonia (1.25mg/3ml) Ud) 1.25 mg IH [id number] PRN PRN Reason: Shortness of Breath Last Admin: 05/22/18 20:25 Dose: 1.25 mg Allopurinol (Zyloprim) 100 mg PO DAILY [facility] Last Admin: 05/23/18 09:15 Dose: 100 mg Aspirin (Aspirin Chewable) 81 mg PO DAILY [facility] Last Admin: 05/23/18 09:13 Dose: 81 mg Atorvastatin Calcium (Lipitor) 20 mg PO DIN [facility] Last Admin: 05/22/18 17:21 Dose: 20 mg Carvedilol (Coreg) 3.125 mg PO BID [facility] Last Admin: 05/23/18 09:13 Dose: 3.125 mg Insulin Detemir (Levemir) 30 unit SC Q12 [facility] Last Admin: 05/23/18 09:14 Dose: 30 unit Insulin Human Regular (Humulin R Med) 0 units SC ACHS [facility]; Protocol Last Admin: 05/23/18 08:14 Dose: Not Given Montelukast Sodium (Singulair) 10 mg PO DAILY [facility] Last Admin: 05/23/18 09:15 Dose: 10 mg (Fluvoxamine [Luvox] (25 Mg)) 25 mg PO BID [facility] Last Admin: 05/23/18 09:14 Dose: Not Given Nortriptyline HCl (Pamelor) 100 mg PO HS [facility] Last Admin: 05/22/18 23:22 Dose: 100 mg Oxycodone/Acetaminophen (Percocet 5/325 Mg Tab) 2 tab PO Q6 PRN PRN Reason: Pain, moderate (4-7) Stop: 05/26/18 00:01 Last Admin: 05/22/18 18:21 Dose: 2 tab Pantoprazole Sodium (Protonix Ec Tab) 20 mg PO DAILY [facility] Last Admin: 05/23/18 09:15 Dose: 20 mg Quetiapine Fumarate (Seroquel Xr) 100 mg PO HS [facility]; Protocol Last Admin: 05/22/18 23:22 Dose: 100 mg - Labs Labs: 05/23/18 06:30 05/23/18 06:30 PT 14.7 SECONDS (9.4-12.5) H 05/15/18 17:45 INR 1.32 05/15/18 17:45 APTT 51.1 Seconds (26.9-38.3) H 05/15/18 17:45 - Constitutional Appears: Well, Non-toxic, No Acute Distress - Head Exam Head Exam: ATRAUMATIC, NORMOCEPHALIC - Extremities Exam Additional comments: LLE focused VASC: DP/PT 2/4 , Temp gradient warm to warm from proximal to distal. No edema appreciated to L lower extremity NEURO: Gross and protective sensations are diminished DERM: TMA amputation site appears granular with some evidence of fibrotic tissue; graft application sites still adhered with garrett intact at the borders; mild erythema periwound and dorsally at the proximal aspect of the fo ot; no streaking or clinical signs of infection present ORTHO: no pain on palpation to the graft TMA sites; no other gross pathology noted - Neurological Exam Neurological Exam: Alert, Awake, Oriented x3 - Psychiatric Exam Psychiatric exam: Normal Affect, Normal Mood Assessment and Plan - Assessment and Plan (Free Text) Assessment: 58F s/p left TMA with graft application + left foot cellulitis Plan: Patient seen and evaluated with Dr. Negar LIRA, WBC 8.7 Bone scan - severe cellulitis left lower extremity w/o evidence of acute osteomyelitis Continue abx per ID Local woundcare - sterile saline cleanse, xeroform, DSD Will follow as outpatient with podiatry upon discharge Podiatry will continue to follow
[2018-05-23] MEDS ORDERED: Alum-Mag Hydrox-Simethicone Susp (30 mL) PO PRN (12:14)
[2018-05-23] MEDS: Albuterol 0.042% Inhal Sol (1.25 mg/3 mL) UD IH PRN (12:36)
--- NOTE | 2018-05-23 14:31 | CP.PCM.PN ---
Subjective - Date & Time of Evaluation Date of Evaluation: 05/23/18 Time of Evaluation: 08:05 - Subjective Subjective: No new complaints, no nausea, no fevers, not in distress, no increased pain in the foot. Objective - Vital Signs/Intake and Output Vital Signs (last 24 hours): Temp Pulse Resp BP Pulse Ox 98.3 F 92 H 18 136/90 98 05/23/18 06:00 05/23/18 09:13 05/23/18 06:00 05/23/18 09:13 05/23/18 06:00 Intake and Output: 05/23/18 05/23/18 06:59 18:59 Intake Total 420 Balance 420 - Medications Medications: Current Medications Al Hydrox/Mg Hydrox/Simethicone (Maalox Plus 30 Ml) 30 ml PO TID PRN PRN Reason: Indigestion / Heartburn Last Admin: 05/23/18 13:51 Dose: 30 ml Albuterol Sulfate (Albuterol 0.042% Inhal Sonia (1.25mg/3ml) Ud) 1.25 mg IH [id number] PRN PRN Reason: Shortness of Breath Last Admin: 05/23/18 12:36 Dose: 1.25 mg Allopurinol (Zyloprim) 100 mg PO DAILY [facility] Last Admin: 05/23/18 09:15 Dose: 100 mg Aspirin (Aspirin Chewable) 81 mg PO DAILY [facility] Last Admin: 05/23/18 09:13 Dose: 81 mg Atorvastatin Calcium (Lipitor) 20 mg PO DIN [facility] Last Admin: 05/22/18 17:21 Dose: 20 mg Carvedilol (Coreg) 3.125 mg PO BID [facility] Last Admin: 05/23/18 09:13 Dose: 3.125 mg Insulin Detemir (Levemir) 30 unit SC Q12 [facility] Last Admin: 05/23/18 09:14 Dose: 30 unit Insulin Human Regular (Humulin R Med) 0 units SC ACHS [facility]; Protocol Last Admin: 05/23/18 11:13 Dose: 7 units Montelukast Sodium (Singulair) 10 mg PO DAILY [facility] Last Admin: 05/23/18 09:15 Dose: 10 mg (Fluvoxamine [Luvox] (25 Mg)) 25 mg PO BID [facility] Last Admin: 05/23/18 09:14 Dose: Not Given Nortriptyline HCl (Pamelor) 100 mg PO HS [facility] Last Admin: 05/22/18 23:22 Dose: 100 mg Oxycodone/Acetaminophen (Percocet 5/325 Mg Tab) 2 tab PO Q6 PRN PRN Reason: Pain, moderate (4-7) Stop: 05/26/18 00:01 Last Admin: 05/22/18 18:21 Dose: 2 tab Pantoprazole Sodium (Protonix Ec Tab) 20 mg PO DAILY [facility] Last Admin: 05/23/18 09:15 Dose: 20 mg Quetiapine Fumarate (Seroquel Xr) 100 mg PO HS [facility]; Protocol Last Admin: 05/22/18 23:22 Dose: 100 mg Sevelamer HCl (Renagel) 800 mg PO TID [facility] Last Admin: 05/23/18 13:00 Dose: 800 mg - Labs Labs: 05/23/18 06:30 05/23/18 06:30 PT 14.7 SECONDS (9.4-12.5) H 05/15/18 17:45 INR 1.32 05/15/18 17:45 APTT 51.1 Seconds (26.9-38.3) H 05/15/18 17:45 - Constitutional Appears: Chronically Ill - Head Exam Head Exam: NORMAL INSPECTION - Neck Exam Neck Exam: absent: Meningismus - Respiratory Exam Respiratory Exam: Decreased Breath Sounds - Cardiovascular Exam Cardiovascular Exam: +S1, +S2 - GI/Abdominal Exam GI & Abdominal Exam: Soft. absent: Tenderness Assessment and Plan - Assessment and Plan (Free Text) Plan: Assessment MSSA Skin/skin structure infection with a left foot graft in this patient with history of osteomyelitis of same foot but no evidence of osteomyelitis currently (as discussed with Podiatry) history of Methicillin-sensitive Staph aureus bacteremia from left foot abscess and severe skin/skin structure infection of the left foot S/P I and D and debridement and left TMA history of sepsis due to left foot skin and skin structure infection without evidence of osteomyelitis on MRI, growing MSSA from the wound chronic renal failure history of sepsis due to abdominal wall abscess S/P I and D, grew MSSA history of sepsis due to UTI with E. coli which is resistant to many antibiotics but sensitive to Imipenem (but not ESBL-producing) COPD fibromyalgia history of UTI's restless leg syndrome history of pneumonia HTN chronic CHF DM history of kidney stones history of endometriosis S/P oophorectomy history of cellulitis of lower extremities Plan continue Daptomycin day 7 and recommend up to 10 days of therapy; can switch to Zyvox on discharge to complete therapy patient will follow up with Podiatry as an outpatient discussed with Dr. Bills - bone scan findings are due to post-op changes
--- NOTE | 2018-05-23 15:51 | PN ---
DATE: 05/23/2018 SUBJECTIVE: The patient is seen lying in bed. She is awake, she is alert, she is comfortable. She denies any cough, shortness of breath today. PHYSICAL EXAMINATION: GENERAL: Middle-aged lady sitting in bed. VITAL SIGNS: Blood pressure 136/90, heart rate 92, respiratory rate 18, temperature 98.3. HEENT: Normocephalic, atraumatic, positive pallor. NECK: Supple, no JVD. LUNGS: Bilateral equal entry, bilateral equal expansion. CARDIAC: S1 and S2, regular rate and rhythm, no murmur, no rub. ABDOMEN: Distended, soft, nontender, bowel sounds present. EXTREMITIES: Dressing of the left foot. INTAKE AND OUTPUT: Not charted. LABORATORY DATA: WBC 8.7, hemoglobin 8.4, hematocrit 27, platelets 284. Sodium 137, potassium 4.6, chloride 107, CO2 of 23, BUN 54, creatinine 2.2, glucose 169, calcium 10.2, phosphorus 5. AST 19, ALT 17, albumin 3.7. CURRENT MEDICATIONS: Aspirin, Coreg 3.125 b.i.d., insulin, Lipitor, nortriptyline, Percocet, Seroquel, Singulair, Zyloprim 100, daptomycin 320 daily, Venofer 200 mg given yesterday, Percocet. ASSESSMENT: 1. Infected left foot stump. 2. Non-insulin dependent diabetes mellitus. 3. Hypertension. 4. Chronic kidney disease, stage 3, stable. 5. Severe anemia, anemia of chronic kidney disease plus chronic infection. 6. Hyperphosphatemia. 7. Bipolar disorder. PLAN: 1. Aranesp 60 mcg today. 2. Start Renagel 800 t.i.d. 3. Check intact PTH. 4. Complete antibiotics as per ID recommendations. 5. Avoid nephrotoxins. Elva Frank MD
--- NOTE | 2018-05-23 16:06 | PN ---
DATE: 05/23/2018 SUBJECTIVE: The patient is 58-year-old, seen and examined, doing well, sitting in chair, and seems to be comfortable. No nausea, vomiting, or diarrhea. No fever. No chills. PHYSICAL EXAMINATION: VITAL SIGNS: She is afebrile, pulse 92, respirations 18, and blood pressure 136/90. LUNGS: Bilateral fair airflow. No rhonchi or crackle. HEART: S1 and S2 audible. ABDOMEN: Soft and nontender. No rebound, no guarding. NEUROLOGIC: The patient is awake, alert, oriented, and able to communicate. EXTREMITIES: She is elevating her foot and is in dressing. No active bleeding noted. LABORATORY DATA: WBC 8.7, hemoglobin 8.4, hematocrit 26.6, and platelets 284. Chemistry; sodium 137, potassium 4.6, chloride 107, CO2 23, BUN 54, creatinine 2.2, blood sugar of . ASSESSMENT: 1. Streptococcus aureus left transmetatarsal amputation stump infection. 2. Acinetobacter baumannii infection. 3. Status post skin graft. 4. Peripheral vascular disease. 5. Chronic kidney disease. 6. Insulin dependent diabetes. 7. History of hypertension, PLAN: The patient will receive daptomycin tomorrow then we will switch it to p.o. Zyvox and she will be taken care as outpatient for her wound care. In the meantime, we will continue all of her current medication including nebulizer treatment, aspirin, carvedilol, and daptomycin, she got iron infusion and I will give her Mylanta as needed. Colt Zhu MD
[2018-05-23] MEDS: Oxycodone/Acetaminophen 5/325 mg Tab PO PRN (17:24)
[2018-05-23] MEDS: QUEtiapine 50 mg XR Tab PO SCH (22:01)
[2018-05-23 22:56] VITALS: RESP 18; TEMP 97.9
[2018-05-24] MEDS: Insulin Reg-MEDIUM-Coverage SC SCH ×2 (08:21→11:45)
[2018-05-24 08:25] VITALS: BP 121/77; PULSE 96; O2SAT 96
[2018-05-24] MEDS: Insulin Detemir 100 units/ml Vial (Levemir) SC SCH (09:44)
[2018-05-24] MEDS: Pantoprazole 20 mg EC Tab PO SCH (09:45)
--- NOTE | 2018-05-24 11:31 | CP.PCM.PN ---
<Rupert Wall - Last Filed: 05/24/18 11:29> Subjective - Date & Time of Evaluation Date of Evaluation: 05/24/18 Time of Evaluation: 11:29 - Subjective Subjective: Podiatry progress note for Dr. Little/Negar 58F seen and evaluated this AM with Dr. Little for left foot TMA wound. Patient resting comfortably, NAD. Patient offers no new complaints to LLE. Dressing clean/dry/intact. Denies n/v/f/d/c/sob/ryan/cp. Objective - Vital Signs/Intake and Output Vital Signs (last 24 hours): Temp Pulse Resp BP Pulse Ox 97.9 F 96 H 18 121/77 96 05/24/18 06:00 05/24/18 09:44 05/24/18 06:00 05/24/18 09:44 05/24/18 06:00 - Medications Medications: Current Medications Al Hydrox/Mg Hydrox/Simethicone (Maalox Plus 30 Ml) 30 ml PO TID PRN PRN Reason: Indigestion / Heartburn Last Admin: 05/23/18 13:51 Dose: 30 ml Albuterol Sulfate (Albuterol 0.042% Inhal Sonia (1.25mg/3ml) Ud) 1.25 mg IH [id number] PRN PRN Reason: Shortness of Breath Last Admin: 05/23/18 12:36 Dose: 1.25 mg Allopurinol (Zyloprim) 100 mg PO DAILY [facility] Last Admin: 05/24/18 09:45 Dose: 100 mg Aspirin (Aspirin Chewable) 81 mg PO DAILY [facility] Last Admin: 05/24/18 09:44 Dose: 81 mg Atorvastatin Calcium (Lipitor) 20 mg PO DIN [facility] Last Admin: 05/23/18 17:24 Dose: 20 mg Carvedilol (Coreg) 3.125 mg PO BID [facility] Last Admin: 05/24/18 09:44 Dose: 3.125 mg Insulin Detemir (Levemir) 30 unit SC Q12 [facility] Last Admin: 05/24/18 09:44 Dose: 30 unit Insulin Human Regular (Humulin R Med) 0 units SC ACHS [facility]; Protocol Last Admin: 05/24/18 08:21 Dose: Not Given Montelukast Sodium (Singulair) 10 mg PO DAILY [facility] Last Admin: 05/24/18 09:45 Dose: 10 mg (Fluvoxamine [Luvox] (25 Mg)) 25 mg PO BID [facility] Last Admin: 05/24/18 09:44 Dose: Not Given Nortriptyline HCl (Pamelor) 100 mg PO HS [facility] Last Admin: 05/23/18 22:01 Dose: 100 mg Oxycodone/Acetaminophen (Percocet 5/325 Mg Tab) 2 tab PO Q6 PRN PRN Reason: Pain, moderate (4-7) Stop: 05/26/18 00:01 Last Admin: 05/23/18 17:24 Dose: 2 tab Pantoprazole Sodium (Protonix Ec Tab) 20 mg PO DAILY [facility] Last Admin: 05/24/18 09:45 Dose: 20 mg Quetiapine Fumarate (Seroquel Xr) 100 mg PO [facility]; Protocol Last Admin: 05/23/18 22:01 Dose: 100 mg Sevelamer HCl (Renagel) 800 mg PO TID [facility] Last Admin: 05/24/18 09:45 Dose: 800 mg - Labs Labs: 05/23/18 06:30 05/23/18 06:30 PT 14.7 SECONDS (9.4-12.5) H 05/15/18 17:45 INR 1.32 05/15/18 17:45 APTT 51.1 Seconds (26.9-38.3) H 05/15/18 17:45 - Constitutional Appears: Well, Non-toxic, No Acute Distress - Head Exam Head Exam: ATRAUMATIC, NORMOCEPHALIC - Extremities Exam Additional comments: LLE focused VASC: DP/PT 2/4 , Temp gradient warm to warm from proximal to distal. No edema appreciated to L lower extremity NEURO: Gross and protective sensations are diminished DERM: TMA amputation site appears granular with some evidence of fibrotic tissue; graft application sites still adhered with garrett intact at the borders; mild erythema periwound and dorsally at the proximal aspect of the foot; no streaking or clinical signs of infection present ORTHO: no pain on palpation to the graft TMA sites; no other gross pathology noted - Neurological Exam Neurological Exam: Alert, Awake, Oriented x3 - Psychiatric Exam Psychiatric exam: Normal Affect, Normal Mood Assessment and Plan - Assessment and Plan (Free Text) Assessment: 58F s/p left TMA with graft application + left foot cellulitis Plan: Patient seen and evaluated with Dr. Anabel LIRA, WBC 8.7 Bone scan - severe cellulitis left lower extremity w/o evidence of acute osteomyelitis Continue abx per ID Local woundcare - sterile saline cleanse, xeroform, DSD Stable for discharge from podiatry standpoint - will follow up as outpatient Podiatry will continue to follow <Rodríguez Little - Last Filed: 05/24/18 19:12> Objective - Vital Signs/Intake and Output Vital Signs (last 24 hours): Temp Pulse Resp BP Pulse Ox 97.9 F 96 H 18 121/77 96 05/24/18 06:00 05/24/18 09:44 05/24/18 06:00 05/24/18 09:44 05/24/18 06:00 - Labs Labs: 05/23/18 06:30 05/23/18 06:30 PT 14.7 SECONDS (9.4-12.5) H 05/15/18 17:45 INR 1.32 05/15/18 17:45 APTT 51.1 Seconds (26.9-38.3) H 05/15/18 17:45 Attending/Attestation - Attestation I have personally seen and examined this patient.: Yes I have fully participated in the care of the patient.: Yes I have reviewed all pertinent clinical information, including history, physical exam and plan: Yes
[2018-05-24] MEDS: Magnesium Citrate Oral SOL (300 ml) PO ONE ×2 (11:49→13:07)
[2018-05-24] MEDS ORDERED: Bisacodyl 5mg EC Tab PO ONE (12:30)
--- NOTE | 2018-05-24 14:02 | CP.PCM.PN ---
<Clarence Tovar - Last Filed: 05/24/18 14:14> Subjective - Date & Time of Evaluation Date of Evaluation: 05/24/18 Time of Evaluation: 07:40 - Subjective Subjective: Infectious disease progress note: Pt seen and examined at bedside. No acute events overnight. Pt denies any lower ext pain. No complaints. 12 Point ROS performed and neg other than stated above. Objective - Vital Signs/Intake and Output Vital Signs (last 24 hours): Temp Pulse Resp BP Pulse Ox 97.9 F 96 H 18 121/77 96 05/24/18 06:00 05/24/18 09:44 05/24/18 06:00 05/24/18 09:44 05/24/18 06:00 - Medications Medications: Current Medications Al Hydrox/Mg Hydrox/Simethicone (Maalox Plus 30 Ml) 30 ml PO TID PRN PRN Reason: Indigestion / Heartburn Last Admin: 05/23/18 13:51 Dose: 30 ml Albuterol Sulfate (Albuterol 0.042% Inhal Sonia (1.25mg/3ml) Ud) 1.25 mg IH [id number] PRN PRN Reason: Shortness of Breath Last Admin: 05/23/18 12:36 Dose: 1.25 mg Allopurinol (Zyloprim) 100 mg PO DAILY [facility] Last Admin: 05/24/18 09:45 Dose: 100 mg Aspirin (Aspirin Chewable) 81 mg PO DAILY [facility] Last Admin: 05/24/18 09:44 Dose: 81 mg Atorvastatin Calcium (Lipitor) 20 mg PO DIN [facility] Last Admin: 05/23/18 17:24 Dose: 20 mg Carvedilol (Coreg) 3.125 mg PO BID [facility] Last Admin: 05/24/18 09:44 Dose: 3.125 mg Insulin Detemir (Levemir) 30 unit SC Q12 [facility] Last Admin: 05/24/18 09:44 Dose: 30 unit Insulin Human Regular (Humulin R Med) 0 units SC ACHS [facility]; Protocol Last Admin: 05/24/18 11:45 Dose: 3 units Montelukast Sodium (Singulair) 10 mg PO DAILY [facility] Last Admin: 05/24/18 09:45 Dose: 10 mg (Fluvoxamine [Luvox] (25 Mg)) 25 mg PO BID [facility] Last Admin: 05/24/18 09:44 Dose: Not Given Nortriptyline HCl (Pamelor) 100 mg PO HS [facility] Last Admin: 05/23/18 22:01 Dose: 100 mg Oxycodone/Acetaminophen (Percocet 5/325 Mg Tab) 2 tab PO Q6 PRN PRN Reason: Pain, moderate (4-7) Stop: 05/26/18 00:01 Last Admin: 05/23/18 17:24 Dose: 2 tab Pantoprazole Sodium (Protonix Ec Tab) 20 mg PO DAILY [facility] Last Admin: 05/24/18 09:45 Dose: 20 mg Quetiapine Fumarate (Seroquel Xr) 100 mg PO HS [facility]; Protocol Last Admin: 05/23/18 22:01 Dose: 100 mg Sevelamer HCl (Renagel) 800 mg PO TID [facility] Last Admin: 05/24/18 09:45 Dose: 800 mg - Labs Labs: 05/23/18 06:30 05/23/18 06:30 PT 14.7 SECONDS (9.4-12.5) H 05/15/18 17:45 INR 1.32 05/15/18 17:45 APTT 51.1 Seconds (26.9-38.3) H 05/15/18 17:45 - Constitutional Appears: No Acute Distress - Head Exam Head Exam: ATRAUMATIC, NORMOCEPHALIC - Eye Exam Eye Exam: EOMI - ENT Exam ENT Exam: Mucous Membranes Moist - Respiratory Exam Respiratory Exam: Clear to Ausculation Bilateral. absent: Wheezes - Cardiovascular Exam Cardiovascular Exam: REGULAR RHYTHM, +S1, +S2 - GI/Abdominal Exam GI & Abdominal Exam: Soft. absent: Tenderness - Extremities Exam Extremities Exam: absent: Calf Tenderness, Pedal Edema - Neurological Exam Neurological Exam: Alert, Awake, Oriented x3 - Psychiatric Exam Psychiatric exam: Normal Mood - Skin Skin Exam: Dry, Warm Assessment and Plan - Assessment and Plan (Free Text) Assessment: 58-year-old female presents with MSSA Skin/skin structure infection with a left foot graft in this patient with history of osteomyelitis of same foot with MSSA and necrotizing infection, S/P amputation. Bone scan showing post-op changed. Continue daptomycin day 8 of 10 Upon discharge can continue with doxycycline for 4 more days Follow-up podiatry recommendations Continue to monitor for any changes Case and plan was reviewed and discussed with Dr. Peacock. <MadonnaJan - Last Filed: 05/24/18 16:24> Objective - Vital Signs/Intake and Output Vital Signs (last 24 hours): Temp Pulse Resp BP Pulse Ox 97.9 F 96 H 18 121/77 96 05/24/18 06:00 05/24/18 09:44 05/24/18 06:00 05/24/18 09:44 05/24/18 06:00 - Labs Labs: 05/23/18 06:30 05/23/18 06:30 PT 14.7 SECONDS (9.4-12.5) H 05/15/18 17:45 INR 1.32 05/15/18 17:45 APTT 51.1 Seconds (26.9-38.3) H 05/15/18 17:45 Assessment and Plan - Assessment and Plan (Free Text) Assessment: Infectious diseases Attending Physician Attestation Patient seen and examined, discussed with medical affairs specialist. I have reviewed the patient's history of present illness, past medical, social, personal and family histories, pertinent physical exam findings, course so far in this hospital admission, pertinent laboratory and imaging results. I agree with the above findings, assessment and plan. In addition,patient on Daptomycin (day 10 today) for MSSA SSTI in this patient with a left foot graft. Bone scan showed post-op changes. Will continue on Doxycycline for another 4-5 days with outpatient follow up with Dr. Bills. Patient understands and acknowledges.
--- NOTE | 2018-05-25 04:00 | DS ---
HISTORY OF PRESENT ILLNESS: The patient is 58-year-old seen and examined, doing well. Still had dressing change. No nausea, vomiting, no diarrhea. Eating and tolerating. PHYSICAL EXAMINATION: VITAL SIGNS: She is afebrile, pulse 96, respirations 18, blood pressure 121/77. LUNGS: Bilateral fair airflow. No rhonchi or crackle. HEART: S1 and S2 audible. ABDOMEN: Soft, obese, nontender. No rebound. No guarding. NEUROLOGIC: The patient is awake, alert, oriented, communicative. EXTREMITIES: Left foot is in the dressing. Has granulating tissue. Has skin graft. Has improved. Significant skin graft and erythema site has significantly improved. LABORATORY DATA: Blood sugars 243. ASSESSMENT: 1. Left foot cellulitis. 2. History of hypertension. 3. Hyperlipidemia. 4. Insulin-dependent diabetes. 5. Chronic kidney disease. 6. Anemia. PLAN: The patient received her 10 days of antibiotics. She was admitted on 05/15/2018 and she received actually 12 days of antibiotic daptomycin since she was going Staphylococcus aureus, sensitive to dapto, so the patient is being discharged today. She will be switched to p.o. Zyvox as recommended by IV. She will follow up with Dr. Bills for her wound care once a week and she will have her dressing change twice a week at home. Colt Zhu MD
== END 2018-05-24 16:20 | disposition home or self-care (01) | DRG 565 ==
LOC: ED 15:58 → ERH 18:00 → 5RNO 20:20 → ERH 20:39 → 5RNO 21:10
PROVIDERS: ADMIT Internal Medicine; ATTEND Internal Medicine
PROC: 3E0F7GC Introduction of Other Therapeutic Substance into Respiratory Tract, Via Natural or Artificial Opening (ICD-10-PCS; principal; 2018-05-16)
DX: T87.44 Infection of amputation stump, left lower extremity (principal); L03.116 Cellulitis of left lower limb; I42.9 Cardiomyopathy, unspecified; N18.4 Chronic kidney disease, stage 4 (severe); I13.0 Hypertensive heart and chronic kidney disease with heart failure and stage 1 through stage 4 chronic kidney disease, or unspecified chronic kidney disease; N17.9 Acute kidney failure, unspecified; N25.81 Secondary hyperparathyroidism of renal origin; E11.610 Type 2 diabetes mellitus with diabetic neuropathic arthropathy; E11.51 Type 2 diabetes mellitus with diabetic peripheral angiopathy without gangrene; E11.621 Type 2 diabetes mellitus with foot ulcer; D63.1 Anemia in chronic kidney disease; J44.9 Chronic obstructive pulmonary disease, unspecified; E11.22 Type 2 diabetes mellitus with diabetic chronic kidney disease; I25.10 Atherosclerotic heart disease of native coronary artery without angina pectoris; E11.65 Type 2 diabetes mellitus with hyperglycemia; M14.679 Charcot's joint, unspecified ankle and foot; I50.9 Heart failure, unspecified; E78.5 Hyperlipidemia, unspecified; B95.62 Methicillin resistant Staphylococcus aureus infection as the cause of diseases classified elsewhere; I08.1 Rheumatic disorders of both mitral and tricuspid valves; F31.9 Bipolar disorder, unspecified; Y83.5 Amputation of limb(s) as the cause of abnormal reaction of the patient, or of later complication, without mention of misadventure at the time of the procedure; Z79.4 Long term (current) use of insulin; G25.81 Restless legs syndrome; Z95.5 Presence of coronary angioplasty implant and graft; Z87.891 Personal history of nicotine dependence

== ENCOUNTER 2018-06-11 12:26 | Outpatient (CLI) | payer MEDICARE, OTHER | END 2018-06-11 12:27 | disposition home or self-care (01) | LOC: RAD 12:26 ==

== ENCOUNTER 2018-08-07 11:11 | Outpatient (CLI) | payer MEDICARE | END 2018-08-07 11:12 | disposition home or self-care (01) | LOC: RAD 11:11 ==

== ENCOUNTER 2018-09-17 10:46 | Inpatient (IN) | payer MEDICARE, OTHER ==
[2018-09-17 10:58] VITALS: BMI 26.6
[2018-09-17] MEDS ORDERED: Albuterol-Ipratrop 3 mg / 0.5 (3 ml) UD IH STA (11:22)
--- NOTE | 2018-09-17 11:41 | ED PDOC ---
Arrival/HPI - General Historian: Patient - History of Present Illness Narrative History of Present Illness (Text): 09/17/18 11:35 58 yo female with pmhx of diabetes, diabetic foot and URI, who presents to the emergency department complaining of chest pain, shortness of breath, cough, and wheezing that began 2 weeks ago. Patient was last seen by Dr. Zhu and given steroids. Patient also reports using nebulizer at home with no significant relief. Patient states casually smoking since the age of 22, but denies drinking alcohol. Time/Duration: > week (2 weeks) Symptom Onset: Gradual Symptom Course: Unchanged Context: Home Associated Symptoms (Text): 09/17/18 12:24 Approximately 2-week history of cough congestion URI wheezing sputum production chest pain and shortness of breath. Seen by the PMD and treated with Levaquin and steroids, but no better. Her home nebulizer is no longer helping. History of asthma. No fever or chills. Past Medical History - Provider Review Nursing Documentation Reviewed: Yes - Infectious Disease Hx of Infectious Diseases: None - Tetanus Immunization Tetanus Immunization: Unknown - Cardiac Hx Cardiac Disorders: Yes Hx Congestive Heart Failure: Yes Hx Hypertension: Yes - Pulmonary Hx Chronic Obstructive Pulmonary Disease (COPD): Yes - Neurological Hx Neurological Disorder: Yes Other/Comment: Neuropathy Feet - HEENT Hx HEENT Disorder: Yes (EPISTAXIS) Hx Epistaxis: Yes - Renal Hx Renal Failure: Yes - Endocrine/Metabolic Hx Diabetes Mellitus Type 2: Yes - Hematological/Oncological Hx Blood Disorders: Yes Hx AIDS: Yes Hx Anemia: Yes Hx Blood Transfusions: Yes Hx Blood Transfusion Reaction: No - Integumentary Hx Dermatological Disorder: Yes - Musculoskeletal/Rheumatological Hx Arthritis: Yes - Gastrointestinal Hx Gastrointestinal Disorders: Yes Other/Comment: hernia - Genitourinary/Gynecological Hx Genitourinary Disorders: Yes Other/Comment: Endometriosis - Psychiatric Hx Psychophysiologic Disorder: Yes Hx Depression: Yes Hx Physical Abuse: No Hx Substance Use: No - Surgical History Hx Amputation: Yes Hx Mastectomy: No - Anesthesia Hx Anesthesia Reactions: No Hx Malignant Hyperthermia: No - Suicidal Assessment Feels Threatened In Home Enviroment: No Family/Social History - Physician Review Nursing Documentation Reviewed: Yes Family/Social History: Unknown Family HX Smoking Status: Former Smoker Hx Alcohol Use: No Hx Substance Use: No Hx Substance Use Treatment: No Allergies/Home Meds Allergies/Adverse Reactions: Allergies Iodine and Iodide Containing Produc Allergy (Intermediate, Verified 09/17/18 12:22) URTICARIA ceftaroline fosamil [From Teflaro] Allergy (Verified 09/17/18 12:22) ITCHING theophylline Allergy (Verified 09/17/18 12:22) NAUSEA Home Medications: Home Meds Medication Instructions Recorded Confirmed Pantoprazole [Protonix EC Tab] 20 mg PO DAILY 11/29/16 09/17/18 QUEtiapine [Seroquel XR] 100 mg PO HS 11/29/16 09/17/18 Carvedilol [Coreg] 3.125 mg PO BID 05/02/18 09/17/18 Clopidogrel [Plavix] 75 mg PO DAILY 05/02/18 09/17/18 Insulin Detemir [Levemir] 30 unit SC BID 05/02/18 09/17/18 Levocetirizine Dihydrochloride 5 mg PO DAILY 05/02/18 09/17/18 [Xyzal] Iron Ps Cmplx/Vit B12/FA [Ferrex 1 tab PO DAILY 05/15/18 09/17/18 150 Forte Capsule] Nortriptyline [Pamelor] 2 cap PO BID 05/15/18 09/17/18 Umeclidinium Bronson [Incruse 1 puff INH DAILY 05/15/18 09/17/18 Ellipta] Albuterol 0.083% [Albuterol 3 ml IH QID 09/17/18 09/17/18 Sulfate 3 Ml] Calcium Acetate [Phoslo] 667 mg PO TID 09/17/18 09/17/18 Cholecalciferol [Vitamin D] 50,000 iu PO QWK 09/17/18 09/17/18 Insulin Aspart [Novolog FLEXPEN] 30 unit SC DAILY 09/17/18 09/17/18 Review of Systems - Physician Review All systems were reviewed & negative as marked: Yes - Review of Systems Constitutional: absent: Fatigue, Fevers Respiratory: SOB, Cough (Cough with congestion. ), Sputum, Wheezing, Other (wheezing. ) Cardiovascular: Chest Pain. absent: Palpitations, Syncope Gastrointestinal: absent: Abdominal Pain, Nausea, Vomiting Neurological: absent: Headache, Dizziness, Focal Weakness Physical Exam Vital Signs Reviewed: Yes Vital Signs Temp Pulse Resp Pulse Ox 09/17/18 10:56 98.3 F 104 H 18 96 Temperature: Afebrile Blood Pressure: Normal Pulse: Tachycardic Respiratory Rate: Normal Appearance: Positive for: Well-Appearing, Non-Toxic Pain Distress: None Mental Status: Positive for: Alert and Oriented X 3 - Systems Exam Head: Present: Atraumatic, Normocephalic Pupils: Present: PERRL. No: Sluggish, Non-Reactive Extroacular Muscles: Present: EOMI Conjunctiva: Present: Normal Ears: Present: NORMAL TM, Normal Canal. No: Erythema, TM Bulging Mouth: Present: Moist Mucous Membranes Pharnyx: No: ERYTHEMA, EXUDATE, TONSILS ENLARGED Neck: Present: Normal Range of Motion Respiratory/Chest: Present: Wheezes (Bilateral wheezes. ), Decreased Breath Sounds, Rhonchi (Bilateral rhonchi. ). No: Respiratory Distress, Accessory Muscle Use, Rales, Retracting, Tachypneic Cardiovascular: Present: Regular Rate and Rhythm, Normal S1, S2. No: Murmurs Abdomen: No: Tenderness, Distention, Peritoneal Signs Upper Extremity: Present: Normal Inspection Lower Extremity: Present: Edema (Edema bilateral to lower extremities trace.), Other (Left foot wound clean and dry. Left TMA.) Neurological: Present: GCS=15, CN II-XII Intact, Speech Normal, Motor Func Grossly Intact, Normal Cerebellar Funct Skin: Present: Warm, Dry, Normal Color. No: Rashes Psychiatric: Present: Alert, Oriented x 3, Normal Insight, Normal Concentration Medical Decision Making ED Course and Treatment: 09/17/18 11:55 Impression: 58 y.o female who presents to the emergency department complaining of chest pain, shortness of breath, cough, and wheezing. Plan: -- EKG -- Labs -- Chest-X- Ray -- Albuterol -- SOLU-Medrol -- IV fluids. -- Reassess and disposition Prior Visits: Notes and results from previous visits were reviewed. Progress Notes: 09/17/18 12:32 EKG shows normal sinus rhythm rate approximately 100 with a primary AV block and an intraventricular conduction delay with nonspecific ST and T wave changes - Lab Interpretations Narrative Lab Interpretation (Text): 09/17/18 13:19 09/17/18 12:15 09/17/18 12:15 Lab Results 09/17/18 12:30: pO2 23 L, VBG pH 7.30 L, VBG pCO2 47.0, VBG HCO3 23.1, VBG Total CO2 24.5, VBG O2 Sat (Calc) 38.8 L, VBG Base Excess -3.6 L, VBG Potassium 5.5 H, Glucose 324 H, Lactate 1.6, FiO2 21.0, Sodium 134.0, Chloride 101.0, Venous Blood Potassium 5.5 H 09/17/18 12:15: Sodium 136, Potassium 4.3, Chloride 101, Carbon Dioxide 21, Anion Gap 18, BUN 69 H, Creatinine 2.6 H, Est GFR ( Amer) 23, Est GFR (Non-Af Amer) 19, Random Glucose 328 H* D, Calcium 9.6, Magnesium 1.6 L, Total Bilirubin 0.3, AST 22, ALT 14, Alkaline Phosphatase 104, Lactate Dehydrogenase 578, Total Creatine Kinase 210, Troponin I 0.02 D, NT-Pro-B Natriuret Pep 9920 H, Total Protein 8.0, Albumin 4.0, Globulin 4.1, Albumin/Globulin Ratio 1.0 L 09/17/18 12:15: PT 13.9 H, INR 1.23, APTT 37.2, D-Dimer, Quantitative 328 H 09/17/18 12:15: WBC 16.5 H D, RBC 3.08 L, Hgb 8.8 L, Hct 28.1 L, MCV 91.2 D, MCH 28.6, MCHC 31.3, RDW 16.7 H, Plt Count 312, MPV 11.0, Neut % (Auto) 87.7 H, Lymph % (Auto) 7.5 L, [place] % (Auto) 4.2, Eos % (Auto) 0.5 L, Baso % (Auto) 0.1, Lymph # (Auto) 1.2, [place] # (Auto) 0.7 H, Eos # (Auto) 0.1, Baso # (Auto) 0.01, Absolute Neuts (auto) 14.44 H I have reviewed the lab results: Yes - RAD Interpretation Narrative RAD Interpretations (Text): 09/17/18 12:39 Chest x- Ray Impression: The interstitial marking are increased and coarsened, ruled out sequela of reactive/inflammatory airway disesse, viral illness or possibly mild chronic compensated pulmonary venous congestive changes. Suspect mild bibasilar atelectasis as well. Slight blunting both chest pain and angles could be due to large body habitus however small effusions may be present. Radiology Orders: 09/17/18 11:23 CHEST PORTABLE [RAD] Stat X-ray chest one view shows a right-sided infiltrate. No effusion or cardiomegaly. Food Scientist: Radiologist - Medication Orders Current Medication Orders: Albuterol/Ipratropium (Duoneb 3 Mg/0.5 Mg (3 Ml) Ud) 3 ml IH STAT STA Stop: 09/17/18 11:23 Methylprednisolone (Solu-Medrol) 125 mg IVP STAT STA Stop: 09/17/18 11:23 - Scribe Statement The provider has reviewed the documentation as recorded by the Miguel Aibhenry Olivo All medical record entries made by the Miguel Aibhenry were at my direction and personally dictated by me. I have reviewed the chart and agree that the record accurately reflects my personal performance of the history, physical exam, medical decision making, and the department course for this patient. I have also personally directed, reviewed, and agree with the discharge instructions and disposition. Disposition/Present on Arrival - Present on Arrival Any Indicators Present on Arrival: No History of DVT/PE: No History of Uncontrolled Diabetes: Yes Urinary Catheter: No History of Decub. Ulcer: No History Surgical Site Infection Following: None - Disposition Have Diagnosis and Disposition been Completed?: Yes Diagnosis: Pneumonia, Shortness of breath, Cough, Dehydration, Hyperglycemia, Chest pain, Congestive heart failure, Leukocytosis, Asthma, Renal failure Disposition: HOSPITALIZED Disposition Time: 12:41 Patient Plan: Admission, Telemetry Patient Problems: Current Active Problems Problem Status Onset Asthma Acute Chest pain Acute Congestive heart failure Acute Cough Acute Dehydration Acute Hyperglycemia Acute Leukocytosis Acute Pneumonia Acute Renal failure Acute Shortness of breath Acute Condition: GOOD
[2018-09-17] MEDS ORDERED: Azithromycin 500MG/NS 250ml 500 MG/250 ML BAG IVPB STA (12:34)
[2018-09-17 12:35] LABS: BASO # 0.01 K/mm3 (0.0-2.0); BASO % 0.1 % (0.0-3.0); EOS # 0.1 (0.0-0.7); EOS % 0.5 % (1.5-5.0); HEMOGLOBIN 8.8 g/dL (12.0-16.0); LYMPH # 1.2 (1.2-3.4); LYMPH % 7.5 % (22.0-35.0); MEAN CELL VOLUME 91.2 fl (80.0-105.0); MEAN CORPUSCULAR HEMOGLOBIN 28.6 pg (25.0-35.0); MEAN CORPUSCULAR HGB CONC 31.3 g/dl (31.0-37.0); MONO # 0.7 (0.1-0.6); MONO % 4.2 % (1.0-6.0); RBC 3.08 10^6/uL (3.5-6.1); RED CELL DISTRIBUTION WIDTH 16.7 % (11.5-14.5); WHITE BLOOD COUNT 16.5 10^3/uL (4.5-11.0)
[2018-09-17] MEDS ORDERED: cefTRIAXone 1 gm 1 GM/100 ML BAG IVPB STA (12:35)
[2018-09-17 12:37] LABS: VENOUS BLOOD GAS BASE EXCESS -3.6 mmol/L (0.0-2.0); VENOUS BLOOD GAS PO2 23 mm/Hg (30-55)
--- NOTE | 2018-09-17 12:42 | RAD ---
Date of service: 09/17/2018 HISTORY: SOB COMPARISON: Comparison chest dated 05/15/2018 TECHNIQUE: 1 view obtained. FINDINGS: LUNGS: The interstitial markings are increased and coarsened; rule out sequela of reactive/inflammatory airway disease, viral illness or possibly mild chronic compensated pulmonary venous congestive changes. Suspect mild bibasilar atelectasis as well.. Slight blunting both CP angles could be due to large body habitus however small effusions may be present. PLEURA: As above. No pneumothorax apparent. CARDIOVASCULAR: No aortic atherosclerotic calcification present. Cardiomegaly. OSSEOUS STRUCTURES: No significant abnormalities. VISUALIZED UPPER ABDOMEN: Normal. OTHER FINDINGS: None. IMPRESSION: The interstitial markings are increased and coarsened; rule out sequela of reactive/inflammatory airway disease, viral illness or possibly mild chronic compensated pulmonary venous congestive changes. Suspect mild bibasilar atelectasis as well.. Slight blunting both CP angles could be due to large body habitus however small effusions may be present.
[2018-09-17 12:43] LABS: INR 1.23; PARTIAL THROMBOPLASTIN TIME 37.2 Seconds (26.9-38.3); PROTHROMBIN TIME 13.9 SECONDS (9.4-12.5)
[2018-09-17 12:56] LABS: CALCIUM 9.6 mg/dL (8.4-10.5)
[2018-09-17] MEDS ORDERED: Insulin Regular 1 UNITS/0.01 ML ML SC STA (12:56)
[2018-09-17 12:58] LABS: TROPONIN I 0.02 ng/mL
--- NOTE | 2018-09-17 14:19 | CP.PCM.CON ---
<Maria ARosalinda - Last Filed: 09/17/18 14:21> History of Present Illness - History of Present Illness History of Present Illness: Podiatry Consult Note: Dr. Bills 58F patient with PMHx of DM, HTN, seen and examined at bedside for L foot ulceration. Patient is well known to Dr. Bills and is currently being treated by her for her L foot ulcer. She states that she has been having shortness of breath of breath and wheezing which prompted her to come to the hospital. Patient is being admitted for pneumonia. Denies nausea/vomiting/fever/chills. PMHx: above PSHx: left TMA and graft placement ALL: Iodine, ceftaroline, theophyline Review of Systems - Constitutional Constitutional: As Per HPI Past Patient History - Infectious Disease Hx of Infectious Diseases: None - Tetanus Immunizations Tetanus Immunization: Unknown - Past Medical History & Family History Past Medical History?: Yes - Past Social History Smoking Status: Former Smoker - CARDIAC Hx Cardiac Disorders: Yes Hx Congestive Heart Failure: Yes Hx Hypertension: Yes - PULMONARY Hx Chronic Obstructive Pulmonary Disease (COPD): Yes - NEUROLOGICAL Hx Neurological Disorder: Yes Other/Comment: Neuropathy Feet - HEENT Hx HEENT Problems: Yes (EPISTAXIS) Hx Epistaxis: Yes - RENAL Hx Renal Failure: Yes - ENDOCRINE/METABOLIC Hx Diabetes Mellitus Type 2: Yes - HEMATOLOGICAL/ONCOLOGICAL Hx Blood Disorders: Yes Hx AIDS: Yes Hx Anemia: Yes Hx Blood Transfusions: Yes Hx Blood Transfusion Reaction: No - INTEGUMENTARY Hx Dermatological Problems: Yes - MUSCULOSKELETAL/RHEUMATOLOGICAL Hx Arthritis: Yes - GASTROINTESTINAL Hx Gastrointestinal Disorders: Yes Other/Comment: hernia - GENITOURINARY/GYNECOLOGICAL Hx Genitourinary Disorders: Yes Other/Comment: Endometriosis - PSYCHIATRIC Hx Psychophysiologic Disorder: Yes Hx Depression: Yes Hx Physical Abuse: No Hx Substance Use: No - SURGICAL HISTORY Hx Amputation: Yes Hx Mastectomy: No - ANESTHESIA Hx Anesthesia Reactions: No Hx Malignant Hyperthermia: No Meds Allergies/Adverse Reactions: Allergies Allergy/AdvReac Type Severity Reaction Status Date / Time Iodine and Iodide Containing Allergy Intermediate URTICARIA Verified 09/17/18 12:22 Produc ceftaroline fosamil Allergy ITCHING Verified 09/17/18 12:22 [From Teflaro] theophylline Allergy NAUSEA Verified 09/17/18 12:22 Physical Exam - Constitutional Appears: Non-toxic, No Acute Distress - Head Exam Head Exam: ATRAUMATIC, NORMOCEPHALIC - Eye Exam Eye Exam: Normal appearance - Extremities Exam Extremities exam: Negative for: calf tenderness Additional comments: LLE focused VASC: DP/PT 1/4 , Temp gradient warm to warm from proximal to distal, no edema appreciated to left lower extremity at this time NEURO: Gross and protective sensations are diminished DERM: TMA amputation plantar aspect granular. No drainage present, no tunneling, no tracking, no erythema, no clinical signs of infection noted at this time ORTHO: No pain upon palpation at this time - Neurological Exam Neurological exam: Alert, Oriented x3 - Psychiatric Exam Psychiatric exam: Normal Affect, Normal Mood Results - Vital Signs Recent Vital Signs: Last Vital Signs Temp 98.3 F 09/17/18 10:56 Pulse 110 H 09/17/18 13:13 Resp 19 09/17/18 13:13 BP 124/77 09/17/18 13:09 Pulse Ox 97 09/17/18 13:13 - Labs Result Diagrams: 09/17/18 12:15 09/17/18 12:15 Labs: Laboratory Results - last 24 hr 09/17/18 09/17/18 09/17/18 12:15 12:15 12:15 WBC 16.5 H D RBC 3.08 L Hgb 8.8 L Hct 28.1 L MCV 91.2 D MCH 28.6 MCHC 31.3 RDW 16.7 H Plt Count 312 MPV 11.0 Neut % (Auto) 87.7 H Lymph % (Auto) 7.5 L Rosebud % (Auto) 4.2 Eos % (Auto) 0.5 L Baso % (Auto) 0.1 Lymph # (Auto) 1.2 Rosebud # (Auto) 0.7 H Eos # (Auto) 0.1 Baso # (Auto) 0.01 Absolute Neuts (auto) 14.44 H PT 13.9 H INR 1.23 APTT 37.2 D-Dimer, Quantitative 328 H pO2 VBG pH VBG pCO2 VBG HCO3 VBG Total CO2 VBG O2 Sat (Calc) VBG Base Excess VBG Potassium Glucose Lactate FiO2 Sodium 136 Potassium 4.3 Chloride 101 Carbon Dioxide 21 Anion Gap 18 BUN 69 H Creatinine 2.6 H Est GFR ( Amer) 23 Est GFR (Non-Af Amer) 19 Random Glucose 328 H* D Calcium 9.6 Magnesium 1.6 L Total Bilirubin 0.3 AST 22 ALT 14 Alkaline Phosphatase 104 Lactate Dehydrogenase 578 Total Creatine Kinase 210 Troponin I 0.02 D NT-Pro-B Natriuret Pep 9920 H Total Protein 8.0 Albumin 4.0 Globulin 4.1 Albumin/Globulin Ratio 1.0 L Venous Blood Potassium 09/17/18 12:30 WBC RBC Hgb Hct MCV MCH MCHC RDW Plt Count MPV Neut % (Auto) Lymph % (Auto) Rosebud % (Auto) Eos % (Auto) Baso % (Auto) Lymph # (Auto) Rosebud # (Auto) Eos # (Auto) Baso # (Auto) Absolute Neuts (auto) PT INR APTT D-Dimer, Quantitative pO2 23 L VBG pH 7.30 L VBG pCO2 47.0 VBG HCO3 23.1 VBG Total CO2 24.5 VBG O2 Sat (Calc) 38.8 L VBG Base Excess -3.6 L VBG Potassium 5.5 H Glucose 324 H Lactate 1.6 FiO2 21.0 Sodium 134.0 Potassium Chloride 101.0 Carbon Dioxide Anion Gap BUN Creatinine Est GFR ( Amer) Est GFR (Non-Af Amer) Random Glucose Calcium Magnesium Total Bilirubin AST ALT Alkaline Phosphatase Lactate Dehydrogenase Total Creatine Kinase Troponin I NT-Pro-B Natriuret Pep Total Protein Albumin Globulin Albumin/Globulin Ratio Venous Blood Potassium 5.5 H Assessment & Plan - Assessment and Plan (Free Text) Assessment: 58F with non-healing ulceration to L foot Plan: Patient seen and evaluated Discussed with Dr. Bills Afebrile, WBC 16.5 Most recent culture of L foot from Dr. Bills's office L foot local wound care: xeroform, ABD, and kerlix Will continue to follow Thank you for the consult - Date & Time Date: 09/17/18 Time: 14:24 <Guillermina Bills - Last Filed: 09/22/18 08:24> Results - Vital Signs Recent Vital Signs: Last Vital Signs Temp 98.7 F 09/20/18 06:00 Pulse 68 09/20/18 06:00 Resp 18 09/20/18 06:00 BP 125/66 09/20/18 09:20 Pulse Ox 95 09/20/18 06:00 - Labs Result Diagrams: 09/19/18 08:00 09/19/18 08:00 Attending/Attestation - Attestation I have personally seen and examined this patient.: Yes I have fully participated in the care of the patient.: Yes I have reviewed all pertinent clinical information: Yes
[2018-09-17] MEDS: Insulin Lispro (humaLOG) MEDIUM Coverage SC SCH ×2 (17:25→21:43)
[2018-09-17] MEDS ORDERED: Non Formulary Medication (Calcium Acetate [Phoslo] 667 MG) PO SCH (18:00)
--- NOTE | 2018-09-17 18:16 | CARD ---
APPROVED REPORT Date of service: 09/17/2018 EKG Measurement Heart [id number] <Conclusion> Poor data quality, interpretation may be adversely affected Sinus tachycardia Possible Left atrial enlargement Nonspecific intraventricular conduction delay Nonspecific ST and T wave abnormality Abnormal ECG
[2018-09-17] MEDS: Insulin Detemir 100 units/ml Vial (Levemir) SC SCH (19:03)
[2018-09-17] MEDS ORDERED: Pneumococcal 23-Valent Vaccine IM ONE (19:24)
[2018-09-17] MEDS: Levalbuterol 1.25 MG/3 ML Inhal Soln UD IH SCH (19:30)
[2018-09-17] MEDS: Cefepime 0.5 GM in Sodium Chloride 0.9% 100 ML IVPB SCH (21:10)
[2018-09-17] MEDS: MethylPREDNISolone 40 mg Vial IV SCH (21:10)
[2018-09-17] MEDS: QUEtiapine 50 mg XR Tab PO SCH (21:11)
[2018-09-17] MEDS ORDERED: Cefepime 1gm in NS 100ml 1 GM/100 ML BAG IVPB SCH (22:00)
--- NOTE | 2018-09-18 00:09 | CON ---
DATE: 09/17/2018 CONSULT SERVICE: Cardiology. REASON FOR CONSULTATION: A followup of coronary artery disease, peripheral arterial disease, preoperative intervention for possible thrombotic microangiopathy, admitted with pneumonia and sepsis. BRIEF CLINICAL HISTORY: This is a 58-year-old female with a past medical history significant for coronary artery disease status post stent on 03/04/2013, history of peripheral arterial disease, abscess of the left foot, history of septic shock in the past, history of noninsulin-dependent diabetes mellitus, history of myocutaneous graft, who came in with a complaint of cough and shortness of breath of 2 days, initially being treated in the outpatient with Dr. Zhu, history of hypertension who came to the emergency room, also complained of chest pain and coughing. Denies any prior episode of chest pain prior to the cough. PAST MEDICAL HISTORY: Significant for sepsis, septic shock, acute kidney injury requiring dialysis, now on dialysis, history of PTCA, coronary stent in 02/2013, history of multiple peripheral interventions by Dr. Gonzales, history of abscess of the toe, history of hypertension, hyperlipidemia, history of diabetic retinopathy, history of diabetic nephropathy, and history of left foot abscess as mentioned. At one point, patient needed dialysis, now off dialysis. History of DVT, history of pulmonary embolus, longstanding history of diabetes. SOCIAL HISTORY: Denies any smoking. Denies any history of alcohol abuse. CURRENT MEDICATIONS: Patient is taking at home; Zanaflex, pantoprazole, nortriptyline, Singulair, oxycodone, insulin, Plavix, Coreg, and furosemide. Also, being treated with steroids by Dr. Zhu. RECENT CARDIAC WORK: As follows; patient had an echocardiography done on 03/16/2018 that revealed normal LV function, [id number] mitral regurgitation, mild tricuspid regurgitation, mild pulmonary hypertension. RV systolic pressure 42. Calculated ejection fraction is 59% dated 03/16/2018. REVIEW OF SYSTEMS: As per HPI. PHYSICAL EXAMINATION: GENERAL: Height of the patient 5 feet 5 inches, weight of the patient 160 pounds, and body mass index 26.6 kg/m2. VITAL SIGNS: Temperature 99, heart rate 108, blood pressure 130/90. HEENT: PERRLA. Extraocular muscles intact. NECK: Supple. No carotid bruit or thyromegaly. CHEST: Clear to auscultation. HEART: S1 and S2 regular. ABDOMEN: Soft. EXTREMITIES: Clubbing and cyanosis negative. LABORATORY DATA: WBC 16, hemoglobin 8.8, hematocrit 28.1, and platelet count 312. Chemistry shows sodium 130, potassium 4, chloride 101, carbon dioxide 21, anion gap of 18, BUN 16, creatinine 2.6. Blood sugar is 325. Troponin is 0.02. IMPRESSION: A 58-year-old female with a past medical history significant for coronary artery disease status post percutaneous transluminal coronary angioplasty in 02/2013, history of peripheral arterial disease status post multiple peripheral interventions, history of myocutaneous graft, history of abscess in the left toe, admitted with cough, fever, and phlegm contributing to acute bronchitis with pneumonia. A Cardiology consult was called for possible followup as well as possible transmetatarsal amputation preoperative clearance. RECOMMENDATIONS: I suggest broad-spectrum antibiotic cover. Followup enzymes. We will clear the patient who needs surgery with a high risk because of the comorbidity with no absolute contraindications. Continue perioperative beta bev. We will get lipid profile, TSH, and hemoglobin A1c in the morning. We will follow with you. Thank you Dr. Zhu for providing us the opportunity in taking care of the patient, Ashley Mallory. Stephanie Anton MD
[2018-09-18] MEDS: Levalbuterol 1.25 MG/3 ML Inhal Soln UD IH SCH ×4 (01:31→20:22)
[2018-09-18 07:56] LABS: BASO # 0.01 K/mm3 (0.0-2.0); BASO % 0.1 % (0.0-3.0); EOS % 0.2 % (1.5-5.0); HEMOGLOBIN 8.8 g/dL (12.0-16.0); LYMPH # 1.6 (1.2-3.4); LYMPH % 12.4 % (22.0-35.0); MEAN CELL VOLUME 91.4 fl (80.0-105.0); MEAN CORPUSCULAR HEMOGLOBIN 28.1 pg (25.0-35.0); MEAN CORPUSCULAR HGB CONC 30.8 g/dl (31.0-37.0); MEAN PLATELET VOLUME 10.6 fl (7.0-11.0); MONO # 0.8 (0.1-0.6); MONO % 6.3 % (1.0-6.0); RBC 3.13 10^6/uL (3.5-6.1); RED CELL DISTRIBUTION WIDTH 17.4 % (11.5-14.5); WHITE BLOOD COUNT 12.5 10^3/uL (4.5-11.0)
[2018-09-18 08:07] LABS: ALB/GLOB RATIO 0.9 (1.1-1.8); ALBUMIN 3.4 g/dL (3.0-4.8); CALCIUM 9.1 mg/dL (8.4-10.5)
--- NOTE | 2018-09-18 08:12 | HP ---
DATE OF EXAM: 09/17/2018 HISTORY OF PRESENT ILLNESS: The patient is a 58-year-old who was seen in the office last day with cough and congestion. I gave her 7 days of Levaquin with prednisone mg twice a day. She was given antitussive. The patient states she finished her course and still having cough, congestion, and has been getting shortness of breath, felt weak, so she came to emergency room for further evaluation, so the patient is being admitted for failed outpatient treatment. PAST MEDICAL HISTORY: She has significant past medical history of: 1. Chronic kidney disease. 2. Chronic anemia. 3. Insulin-dependent diabetes. 4. History of hypertension, currently running hypotensive. 5. History of and placement. 6. Peripheral vascular disease. ALLERGIES: SHE IS ALLERGIC TO IODINE, TEFLARO, AND THEOPHYLLINE. MEDICATIONS AT HOME: She is on: 1. Incruse Ellipta for COPD. 2. Renagel. 3. Seroquel 100 mg at bedtime. 4. Protonix 20 daily. 5. Amitriptyline. 6. Singulair. 7. Xyzal. 8. She is on Levemir 30 units at bedtime. 9. She is on Lopid 600 twice a day. 10. Plavix 75 daily. 11. Coreg 3.125 twice a day. 12. Aspirin 81 daily. 13. Zyloprim 300 daily. SOCIAL HISTORY: She is and lives with her . Used to be a heavy smoker, but quit couple of years ago. She denies alcohol use. PHYSICAL EXAMINATION: GENERAL: She complains of shortness of breath and got afebrile. VITAL SIGNS: She is afebrile, pulse 108, respirations 20, and blood pressure 139/95. LUNGS: Bilateral fair airflow, has soft crackles posteriorly in the middle lung lesion on the right side. HEART: S1 and S2 audible. ABDOMEN: Soft, obese, and nontender. No rebound. No guarding. NEUROLOGIC: The patient is awake and alert, able to communicate. LABORATORY DATA: WBC 16.5, hemoglobin 8.8, hematocrit 21.1, and platelets of 312. PT 13.9 and INR 1.23. Chemistries; sodium of 136, potassium of 4.3, chloride of 101, CO2 of 21, BUN of 69, creatinine of 2.6, and blood sugar of 184. She has x-ray chest done that shows questionable pneumonia. ASSESSMENT: 1. Failed outpatient treatment. 2. History of chronic obstructive pulmonary disease. 3. History of hypertension, currently running hypotensive. 4. Chronic kidney disease. 5. Insulin-dependent diabetes. PLAN: The patient will be started on her usual medications, start her on nebulizer treatment. Get Dr. Kent for consult for right choice of antibiotic. Continue antibiotics. Monitor her blood sugar. Podiatry consult by Dr. Bills has been requested. We will follow up the patient in a.m. Colt Zhu MD
--- NOTE | 2018-09-18 08:44 | CP.PCM.PN ---
Subjective - Date & Time of Evaluation Date of Evaluation: 09/18/18 Time of Evaluation: 06:28 - Subjective Subjective: Awake, alert, no distress Reason for consultation and follow up: Cardiac follow up of coronary artery disease post stents, admitted for pneumonia and sepsis Seen and examined by me and Dr. Anton Objective - Vital Signs/Intake and Output Vital Signs (last 24 hours): Temp Pulse Resp BP Pulse Ox 98.1 F 95 H 19 140/95 H 100 09/17/18 23:13 09/18/18 02:00 09/17/18 23:13 09/17/18 23:13 09/17/18 23:13 Intake and Output: 09/18/18 09/18/18 06:59 18:59 Intake Total 1020 Balance 1020 - Medications Medications: Current Medications Acetaminophen (Tylenol 325mg Tab) 650 mg PO Q6H PRN PRN Reason: Fever >100.4 F Allopurinol (Zyloprim) 300 mg PO DAILY [facility] Aspirin (Aspirin Chewable) 81 mg PO DAILY [facility] Last Admin: 09/17/18 19:03 Dose: 81 mg Atorvastatin Calcium (Lipitor) 20 mg PO DIN [facility] Last Admin: 09/17/18 19:02 Dose: 20 mg Carvedilol (Coreg) 3.125 mg PO BID [facility] Last Admin: 09/17/18 19:02 Dose: 3.125 mg Clopidogrel Bisulfate (Plavix) 75 mg PO DAILY [facility] Last Admin: 09/17/18 19:02 Dose: 75 mg Gemfibrozil (Lopid) 600 mg PO BID [facility] Last Admin: 09/17/18 19:02 Dose: 600 mg Hydralazine HCl (Apresoline) 25 mg PO BID PRN PRN Reason: Other Cefepime HCl 0.5 gm/ Sodium (Chloride) 100 mls @ 100 mls/hr IVPB Q12H [facility]; Protocol Stop: 09/26/18 19:31 Last Admin: 09/17/18 21:10 Dose: 100 mls/hr Insulin Detemir (Levemir) 30 unit SC BID [facility] Last Admin: 09/17/18 19:03 Dose: 30 unit Insulin Human Lispro (Humalog Med) 0 units SC ACHS [facility]; Protocol Last Admin: 09/17/18 21:43 Dose: Not Given Insulin Human Lispro (Humalog) 30 units SC ACB [facility] Levalbuterol HCl (Xopenex) 1.25 mg IH [id number] [facility] Last Admin: 09/18/18 07:22 Dose: 1.25 mg Methylprednisolone (Solu-Medrol) 40 mg IV Q12 [facility] Last Admin: 09/17/18 21:10 Dose: 40 mg Montelukast Sodium (Singulair) 10 mg PO [facility] Last Admin: 09/17/18 21:11 Dose: 10 mg Nortriptyline HCl (Pamelor) 100 mg PO [facility] Last Admin: 09/17/18 21:12 Dose: 100 mg Ondansetron HCl (Zofran Inj) 4 mg IVP Q6H PRN PRN Reason: Nausea/Vomiting Pantoprazole Sodium (Protonix Ec Tab) 20 mg PO DAILY [facility] Polysaccharide Iron Complex (Ferrex-150) 150 mg PO DAILY [facility] Quetiapine Fumarate (Seroquel Xr) 100 mg PO [facility]; Protocol Last Admin: 09/17/18 21:11 Dose: 100 mg Sevelamer HCl (Renagel) 800 mg PO TID [facility] Last Admin: 09/17/18 19:02 Dose: 800 mg - Labs Labs: 09/18/18 07:15 09/18/18 07:15 PT 13.9 SECONDS (9.4-12.5) H 09/17/18 12:15 INR 1.23 09/17/18 12:15 APTT 37.2 Seconds (26.9-38.3) 09/17/18 12:15 - Constitutional Appears: Non-toxic, No Acute Distress - Head Exam Head Exam: NORMAL INSPECTION, NORMOCEPHALIC - Eye Exam Eye Exam: Normal appearance Pupil Exam: NORMAL ACCOMODATION - ENT Exam ENT Exam: Mucous Membranes Moist, Normal Exam - Neck Exam Neck Exam: Full ROM, Normal Inspection - Respiratory Exam Respiratory Exam: Decreased Breath Sounds, Clear to Ausculation Bilateral, NORMAL BREATHING PATTERN - Cardiovascular Exam Cardiovascular Exam: REGULAR RHYTHM, +S1, +S2 - GI/Abdominal Exam GI & Abdominal Exam: Soft, Normal Bowel Sounds - Extremities Exam Extremities Exam: Full ROM Additional comments: left foot dressing - Neurological Exam Neurological Exam: Alert, Awake, Oriented x3 - Psychiatric Exam Psychiatric exam: Normal Affect, Normal Mood - Skin Skin Exam: Dry, Normal Color, Warm Assessment and Plan - Assessment and Plan (Free Text) Assessment: A 58 year old female who came in to the ER due shortness of breath. Admitted for pneumonia. History of coronary artery disease status post PTCA in 02/2013, peripheral vascular disease with multiple vascular interventions, history of myocutaneous graft, history of abscess of left foot, CHF, hypertension, COPD,foot neuroopathy,diabetes, hernia, endometriosis, depression. Consult was called for cardiac clearance for possible foot debridement. Echo done von 03/16/18 showed normal LVEF, mild to moderate MR, mild TR, mild pulmonary hypertension. Cleared for procedure with high risk considering co-morbidities but no absolute contraindication. Podiatry on consult. (Dr. Blils) Plan: No distress,denies chest pain, Heart rate stable Blood pressure controlled On ASA 81 mg daily, Lipitor 20 mg daily, Coreg 3.125 mg BID, Solumedrol 40 mg IV every 12 hours, Continue current treatment and management Continue IV antibiotics per ID Will follow up Plan and treatment discussed with Dr. Anton
[2018-09-18] MEDS: Insulin Lispro 1 UNITS/0.01 ML SC SCH (08:51)
[2018-09-18] MEDS: Insulin Lispro (humaLOG) MEDIUM Coverage SC SCH ×4 (08:52→21:43)
--- NOTE | 2018-09-18 09:04 | CP.PCM.CON ---
<Clarence Tovar - Last Filed: 09/18/18 14:53> History of Present Illness - History of Present Illness History of Present Illness: Infectious disease consult note: 88-year-old female with past medical history of insulin-dependent diabetes, hypertension, peripheral vascular disease, chronic anemia, chronic kidney disease that is presenting with cough and congestion. Patient states that her s ymptoms initially started 2 weeks ago. She has gone to her PMD which gave her Levaquin and prednisone however her symptoms did not get any better. She states that she was compliant with her medications and she finished a course of antibiotics. She subsequently started to feel more short of breath and weak and came to the hospital for further evaluation. Infectious disease was consulted for pneumonia. 12 point ROS performed negative other than stated above PMH: As above PSH: Left TMA and graft placement Medications: Refer to [facility] Allergies: Iodine, ceftaroline, theophylline SH: Former heavy smoker and quit a couple years ago, denies any recreational drug use or drinking FH: Denies Review of Systems - Review of Systems All systems: reviewed and no additional remarkable complaints except Past Patient History - Infectious Disease Hx of Infectious Diseases: None - Tetanus Immunizations Tetanus Immunization: Unknown - Past Medical History & Family History Past Medical History?: Yes - Past Social History Smoking Status: Former Smoker - CARDIAC Hx Cardiac Disorders: Yes (hypotension, cardiomyopathy) Hx Angina: Yes Hx Congestive Heart Failure: Yes Hx Heart Murmur: Yes Hx Hypercholesterolemia: Yes Hx Hypertension: Yes Hx Peripheral Edema: Yes (ble +1 pitting) Hx Peripheral Vascular Disease: Yes Other/Comment: cellulitis, ptca - PULMONARY Hx Respiratory Disorders: Yes Hx Asthma: Yes Hx Chronic Obstructive Pulmonary Disease (COPD): Yes Hx Pneumonia: Yes - NEUROLOGICAL Hx Neurological Disorder: Yes Hx Dizziness: Yes Other/Comment: Neuropathy Feet numbness - HEENT Hx HEENT Problems: Yes (EPISTAXIS) Hx Epistaxis: Yes - RENAL Hx Chronic Kidney Disease: Yes (stage III) Hx Kidney Stones: Yes Hx Renal Failure: Yes Other/Comment: 4 hd trreatments in the past - ENDOCRINE/METABOLIC Hx Endocrine Disorders: Yes Hx Diabetes Mellitus Type 2: Yes - HEMATOLOGICAL/ONCOLOGICAL Hx Blood Disorders: Yes Hx AIDS: (denies) Hx Anemia: Yes (blood transfusion) Other/Comment: has had bleeding disorder since 9 years [facility] age, multiple nosebleeds ad anemia, cause unknown - INTEGUMENTARY Hx Dermatological Problems: Yes Other/Comment: healing left foot wound dressing dry and intact was changed today by resident, hyperbaric treatments - MUSCULOSKELETAL/RHEUMATOLOGICAL Hx Musculoskeletal Disorders: Yes (charcot foot left foot) Hx Arthritis: Yes Hx Falls: Yes Hx Gout: Yes Hx Spinal Stenosis: Yes Hx Unsteady Gait: Yes (uses rollator/power w/ch/cane/commode) Other/Comment: built pt a ramp outside the house - GASTROINTESTINAL Hx Gastrointestinal Disorders: Yes Other/Comment: hernia - GENITOURINARY/GYNECOLOGICAL Hx Genitourinary Disorders: Yes Hx Urinary Tract Infection: Yes Other/Comment: Endometriosis - PSYCHIATRIC Hx Psychophysiologic Disorder: Yes Hx Depression: Yes Hx Physical Abuse: No - SURGICAL HISTORY Hx Surgeries: (c section) Hx Amputation: Yes (all 5 toes left ft) Hx Cardiac Catheterization: Yes Hx Coronary Stent: Yes Hx Mastectomy: No Other/Comment: 03/12/18 left ft sx, 03/14/18 5 toes left ft amputated, 04/01/18 skin graft, 05/08/18 non healing wound left foot debridement of left wound and application of skin graft and injection of amesomatrix stem cells, lap arotomy/laparoscopy r ovary removed 1/2 L ovary removed - ANESTHESIA Hx Anesthesia Reactions: No Hx Malignant Hyperthermia: No Meds Allergies/Adverse Reactions: Allergies Allergy/AdvReac Type Severity Reaction Status Date / Time Iodine and Iodide Containing Allergy Intermediate URTICARIA Verified 09/17/18 12:22 Produc ceftaroline fosamil Allergy ITCHING Verified 09/17/18 12:22 [From Teflaro] theophylline Allergy NAUSEA Verified 09/17/18 12:22 - Medications Medications: Current Medications Acetaminophen (Tylenol 325mg Tab) 650 mg PO Q6H PRN PRN Reason: Fever >100.4 F Allopurinol (Zyloprim) 300 mg PO DAILY [facility] Aspirin (Aspirin Chewable) 81 mg PO DAILY [facility] Last Admin: 09/17/18 19:03 Dose: 81 mg Atorvastatin Calcium (Lipitor) 20 mg PO DIN [facility] Last Admin: 09/17/18 19:02 Dose: 20 mg Carvedilol (Coreg) 3.125 mg PO BID [facility] Last Admin: 09/17/18 19:02 Dose: 3.125 mg Clopidogrel Bisulfate (Plavix) 75 mg PO DAILY [facility] Last Admin: 09/17/18 19:02 Dose: 75 mg Gemfibrozil (Lopid) 600 mg PO BID [facility] Last Admin: 09/17/18 19:02 Dose: 600 mg Hydralazine HCl (Apresoline) 25 mg PO BID PRN PRN Reason: Other Cefepime HCl 0.5 gm/ Sodium (Chloride) 100 mls @ 100 mls/hr IVPB Q12H [facility]; Protocol Stop: 09/26/18 19:31 Last Admin: 09/17/18 21:10 Dose: 100 mls/hr Insulin Detemir (Levemir) 30 unit SC BID [facility] Last Admin: 09/17/18 19:03 Dose: 30 unit Insulin Human Lispro (Humalog Med) 0 units SC ACHS [facility]; Protocol Last Admin: 09/18/18 08:52 Dose: Not Given Insulin Human Lispro (Humalog) 30 units SC ACB [facility] Last Admin: 09/18/18 08:51 Dose: Not Given Levalbuterol HCl (Xopenex) 1.25 mg IH [id number] [facility] Last Admin: 09/18/18 07:22 Dose: 1.25 mg Methylprednisolone (Solu-Medrol) 40 mg IV Q12 [facility] Last Admin: 09/17/18 21:10 Dose: 40 mg Montelukast Sodium (Singulair) 10 mg PO HS [facility] Last Admin: 09/17/18 21:11 Dose: 10 mg Nortriptyline HCl (Pamelor) 100 mg PO HS [facility] Last Admin: 09/17/18 21:12 Dose: 100 mg Ondansetron HCl (Zofran Inj) 4 mg IVP Q6H PRN PRN Reason: Nausea/Vomiting Pantoprazole Sodium (Protonix Ec Tab) 20 mg PO DAILY [facility] Polysaccharide Iron Complex (Ferrex-150) 150 mg PO DAILY [facility] Quetiapine Fumarate (Seroquel Xr) 100 mg PO HS [facility]; Protocol Last Admin: 09/17/18 21:11 Dose: 100 mg Sevelamer HCl (Renagel) 800 mg PO TID [facility] Last Admin: 09/17/18 19:02 Dose: 800 mg Physical Exam - Constitutional Appears: No Acute Distress - Head Exam Head Exam: ATRAUMATIC, NORMOCEPHALIC - Eye Exam Eye Exam: EOMI, PERRL - ENT Exam ENT Exam: Mucous Membranes Moist - Respiratory Exam Respiratory Exam: Clear to Auscultation Bilateral. absent: Wheezes - Cardiovascular Exam Cardiovascular Exam: REGULAR RHYTHM, +S1, +S2 - GI/Abdominal Exam GI & Abdominal Exam: Normal Bowel Sounds, Soft. absent: Distended - Extremities Exam Extremities exam: Negative for: calf tenderness, pedal edema Additional comments: Left TMA, - Neurological Exam Neurological exam: Alert, Oriented x3 - Psychiatric Exam Psychiatric exam: Normal Mood - Skin Skin Exam: Dry, Warm Results - Vital Signs Recent Vital Signs: Last Vital Signs Temp 98.3 F 09/18/18 06:00 Pulse 102 H 09/18/18 06:00 Resp 20 09/18/18 06:00 BP 117/77 09/18/18 06:00 Pulse Ox 97 09/18/18 06:00 - Labs Result Diagrams: 09/18/18 07:15 09/18/18 07:15 Labs: Laboratory Results - last 24 hr 09/17/18 09/17/18 09/17/18 12:15 12:15 12:15 WBC 16.5 H D RBC 3.08 L Hgb 8.8 L Hct 28.1 L MCV 91.2 D MCH 28.6 MCHC 31.3 RDW 16.7 H Plt Count 312 MPV 11.0 Neut % (Auto) 87.7 H Lymph % (Auto) 7.5 L Edwards % (Auto) 4.2 Eos % (Auto) 0.5 L Baso % (Auto) 0.1 Lymph # (Auto) 1.2 Edwards # (Auto) 0.7 H Eos # (Auto) 0.1 Baso # (Auto) 0.01 Absolute Neuts (auto) 14.44 H PT 13.9 H INR 1.23 APTT 37.2 D-Dimer, Quantitative 328 H pO2 VBG pH VBG pCO2 VBG HCO3 VBG Total CO2 VBG O2 Sat (Calc) VBG Base Excess VBG Potassium Glucose Lactate FiO2 Sodium 136 Potassium 4.3 Chloride 101 Carbon Dioxide 21 Anion Gap 18 BUN 69 H Creatinine 2.6 H Est GFR ( Amer) 23 Est GFR (Non-Af Amer) 19 POC Glucose (mg/dL) Random Glucose 328 H* D Calcium 9.6 Phosphorus Magnesium 1.6 L Total Bilirubin 0.3 AST 22 ALT 14 Alkaline Phosphatase 104 Lactate Dehydrogenase 578 Total Creatine Kinase 210 Troponin I 0.02 D NT-Pro-B Natriuret Pep 9920 H Total Protein 8.0 Albumin 4.0 Globulin 4.1 Albumin/Globulin Ratio 1.0 L Triglycerides Cholesterol LDL Cholesterol Direct HDL Cholesterol TSH 3rd Generation Venous Blood Potassium 09/17/18 09/17/18 09/17/18 12:30 16:42 21:35 WBC RBC Hgb Hct MCV MCH MCHC RDW Plt Count MPV Neut % (Auto) Lymph % (Auto) Edwards % (Auto) Eos % (Auto) Baso % (Auto) Lymph # (Auto) Edwards # (Auto) Eos # (Auto) Baso # (Auto) Absolute Neuts (auto) PT INR APTT D-Dimer, Quantitative pO2 23 L VBG pH 7.30 L VBG pCO2 47.0 VBG HCO3 23.1 VBG Total CO2 24.5 VBG O2 Sat (Calc) 38.8 L VBG Base Excess -3.6 L VBG Potassium 5.5 H Glucose 324 H Lactate 1.6 FiO2 21.0 Sodium 134.0 Potassium Chloride 101.0 Carbon Dioxide Anion Gap BUN Creatinine Est GFR ( Amer) Est GFR (Non-Af Amer) POC Glucose (mg/dL) 184 H 210 H Random Glucose Calcium Phosphorus Magnesium Total Bilirubin AST ALT Alkaline Phosphatase Lactate Dehydrogenase Total Creatine Kinase Troponin I NT-Pro-B Natriuret Pep Total Protein Albumin Globulin Albumin/Globulin Ratio Triglycerides Cholesterol LDL Cholesterol Direct HDL Cholesterol TSH 3rd Generation Venous Blood Potassium 5.5 H 09/18/18 09/18/18 09/18/18 07:15 07:15 07:15 WBC 12.5 H D RBC 3.13 L Hgb 8.8 L Hct 28.6 L MCV 91.4 MCH 28.1 MCHC 30.8 L RDW 17.4 H Plt Count 288 MPV 10.6 Neut % (Auto) 81.0 H Lymph % (Auto) 12.4 L Edwards % (Auto) 6.3 H Eos % (Auto) 0.2 L Baso % (Auto) 0.1 Lymph # (Auto) 1.6 Edwards # (Auto) 0.8 H Eos # (Auto) 0.0 Baso # (Auto) 0.01 Absolute Neuts (auto) 10.13 H PT INR APTT D-Dimer, Quantitative pO2 VBG pH VBG pCO2 VBG HCO3 VBG Total CO2 VBG O2 Sat (Calc) VBG Base Excess VBG Potassium Glucose Lactate FiO2 Sodium 138 Potassium 4.3 Chloride 105 Carbon Dioxide 25 Anion Gap 12 BUN 67 H Creatinine 2.3 H Est GFR ( Amer) 27 Est GFR (Non-Af Amer) 22 POC Glucose (mg/dL) Random Glucose 146 H Calcium 9.1 Phosphorus 4.6 H Magnesium 1.6 L Total Bilirubin 0.3 AST 35 ALT 20 Alkaline Phosphatase 82 Lactate Dehydrogenase Total Creatine Kinase Troponin I NT-Pro-B Natriuret Pep Total Protein 7.0 Albumin 3.4 Globulin 3.6 Albumin/Globulin Ratio 0.9 L Triglycerides 118 Cholesterol 317 H LDL Cholesterol Direct 174 H HDL Cholesterol 47 TSH 3rd Generation 0.05 L Venous Blood Potassium 09/18/18 07:43 WBC RBC Hgb Hct MCV MCH MCHC RDW Plt Count MPV Neut % (Auto) Lymph % (Auto) Edwards % (Auto) Eos % (Auto) Baso % (Auto) Lymph # (Auto) Edwards # (Auto) Eos # (Auto) Baso # (Auto) Absolute Neuts (auto) PT INR APTT D-Dimer, Quantitative pO2 VBG pH VBG pCO2 VBG HCO3 VBG Total CO2 VBG O2 Sat (Calc) VBG Base Excess VBG Potassium Glucose Lactate FiO2 Sodium Potassium Chloride Carbon Dioxide Anion Gap BUN Creatinine Est GFR ( Amer) Est GFR (Non-Af Amer) POC Glucose (mg/dL) 149 H Random Glucose Calcium Phosphorus Magnesium Total Bilirubin AST ALT Alkaline Phosphatase Lactate Dehydrogenase Total Creatine Kinase Troponin I NT-Pro-B Natriuret Pep Total Protein Albumin Globulin Albumin/Globulin Ratio Triglycerides Cholesterol LDL Cholesterol Direct HDL Cholesterol TSH 3rd Generation Venous Blood Potassium Assessment & Plan - Assessment and Plan (Free Text) Assessment: Sepsis secondary to community acquired pneumonia Left foot chronic ulcer and cellulites Chronic kidney disease CAD with stents Insulin-dependent diabetes History of COPD Hypertension Chronic anemia Peripheral vascular disease Diabetic retinopathy Diabetic nephropathy History of DVT History of PE History of acute kidney injury requiring dialysis Continue with cefepime, and started on Doxy Patient currently on steroids with Solu-Medrol 40 mg every 12 Patient received 1 dose of Rocephin and azithromycin Follow-up septic work-up, follow-up procalcitonin Follow-up cardiology recommendations Follow-up podiatry recommendations Continue to monitor for any changes Case and plan to be reviewed and discussed with Dr. Kent <Terrance Kent - Last Filed: 09/18/18 15:00> Meds - Medications Medications: Current Medications Acetaminophen (Tylenol 325mg Tab) 650 mg PO Q6H PRN PRN Reason: Fever >100.4 F Allopurinol (Zyloprim) 300 mg PO DAILY [facility] Last Admin: 09/18/18 10:18 Dose: 300 mg Aspirin (Aspirin Chewable) 81 mg PO DAILY [facility] Last Admin: 09/18/18 10:17 Dose: 81 mg Atorvastatin Calcium (Lipitor) 80 mg PO DIN [facility] Carvedilol (Coreg) 3.125 mg PO BID [facility] Last Admin: 09/18/18 10:18 Dose: 3.125 mg Clopidogrel Bisulfate (Plavix) 75 mg PO DAILY [facility] Last Admin: 09/18/18 10:17 Dose: 75 mg Doxycycline Hyclate (Doryx) 100 mg PO Q12 [facility]; Protocol Stop: 09/23/18 11:46 Last Admin: 09/18/18 13:09 Dose: 100 mg Furosemide (Lasix) 40 mg PO DAILY [facility] Gemfibrozil (Lopid) 600 mg PO BID [facility] Last Admin: 09/18/18 10:18 Dose: 600 mg Hydralazine HCl (Apresoline) 25 mg PO BID PRN PRN Reason: Other Cefepime HCl 0.5 gm/ Sodium (Chloride) 100 mls @ 100 mls/hr IVPB Q12H [facility]; Prot ocol Stop: 09/26/18 19:31 Last Admin: 09/18/18 10:20 Dose: 100 mls/hr Insulin Detemir (Levemir) 30 unit SC BID [facility] Last Admin: 09/18/18 10:20 Dose: 30 unit Insulin Human Lispro (Humalog Med) 0 units SC ACHS [facility]; Protocol Last Admin: 09/18/18 13:09 Dose: 5 unit Insulin Human Lispro (Humalog) 30 units SC ACB [facility] Last Admin: 09/18/18 08:51 Dose: Not Given Levalbuterol HCl (Xopenex) 1.25 mg IH [id number] [facility] Last Admin: 09/18/18 13:33 Dose: 1.25 mg Magnesium Oxide (Mag-Ox) 400 mg PO BID [facility] Methylprednisolone (Solu-Medrol) 40 mg IV Q12 [facility] Last Admin: 05/29/19 10:19 Dose: 40 mg Montelukast Sodium (Singulair) 10 mg PO HS [facility] Last Admin: 09/17/18 21:11 Dose: 10 mg Nortriptyline HCl (Pamelor) 100 mg PO [facility] Last Admin: 09/17/18 21:12 Dose: 100 mg Ondansetron HCl (Zofran Inj) 4 mg IVP Q6H PRN PRN Reason: Nausea/Vomiting Pantoprazole Sodium (Protonix Ec Tab) 20 mg PO DAILY [facility] Last Admin: 09/18/18 10:19 Dose: 20 mg Polysaccharide Iron Complex (Ferrex-150) 150 mg PO DAILY [facility] Last Admin: 09/18/18 10:19 Dose: 150 mg Quetiapine Fumarate (Seroquel Xr) 100 mg PO HS [facility]; Protocol Last Admin: 09/17/18 21:11 Dose: 100 mg Sevelamer HCl (Renagel) 800 mg PO TID [facility] Last Admin: 09/18/18 13:12 Dose: 800 mg Results - Vital Signs Recent Vital Signs: Last Vital Signs Temp 97.7 F 09/18/18 12:00 Pulse 107 H 09/18/18 12:00 Resp 20 09/18/18 12:00 BP 129/89 09/18/18 13:10 Pulse Ox 97 09/18/18 06:00 - Labs Result Diagrams: 09/18/18 07:15 09/18/18 07:15 Labs: Laboratory Results - last 24 hr 09/17/18 09/17/18 09/17/18 13:00 16:42 21:35 WBC RBC Hgb Hct MCV MCH MCHC RDW Plt Count MPV Neut % (Auto) Lymph % (Auto) Edwards % (Auto) Eos % (Auto) Baso % (Auto) Lymph # (Auto) Edwards # (Auto) Eos # (Auto) Baso # (Auto) Absolute Neuts (auto) Sodium Potassium Chloride Carbon Dioxide Anion Gap BUN Creatinine Est GFR ( Amer) Est GFR (Non-Af Amer) POC Glucose (mg/dL) 184 H 210 H Random Glucose Hemoglobin A1c Calcium Phosphorus Magnesium Total Bilirubin AST ALT Alkaline Phosphatase Total Protein Albumin Globulin Albumin/Globulin Ratio Triglycerides Cholesterol LDL Cholesterol Direct HDL Cholesterol Procalcitonin < 0.05 L TSH 3rd Generation Ur L.pneumophila Ag 09/17/18 09/18/18 09/18/18 22:13 07:15 07:15 WBC 12.5 H D RBC 3.13 L Hgb 8.8 L Hct 28.6 L MCV 91.4 MCH 28.1 MCHC 30.8 L RDW 17.4 H Plt Count 288 MPV 10.6 Neut % (Auto) 81.0 H Lymph % (Auto) 12.4 L Edwards % (Auto) 6.3 H Eos % (Auto) 0.2 L Baso % (Auto) 0.1 Lymph # (Auto) 1.6 Edwards # (Auto) 0.8 H Eos # (Auto) 0.0 Baso # (Auto) 0.01 Absolute Neuts (auto) 10.13 H Sodium 138 Potassium 4.3 Chloride 105 Carbon Dioxide 25 Anion Gap 12 BUN 67 H Creatinine 2.3 H Est GFR ( Amer) 27 Est GFR (Non-Af Amer) 22 POC Glucose (mg/dL) Random Glucose 146 H Hemoglobin A1c Calcium 9.1 Phosphorus 4.6 H Magnesium 1.6 L Total Bilirubin 0.3 AST 35 ALT 20 Alkaline Phosphatase 82 Total Protein 7.0 Albumin 3.4 Globulin 3.6 Albumin/Globulin Ratio 0.9 L Triglycerides 118 Cholesterol 317 H LDL Cholesterol Direct 174 H HDL Cholesterol 47 Procalcitonin TSH 3rd Generation Ur L.pneumophila Ag Negative 09/18/18 09/18/18 09/18/18 07:15 07:15 07:43 WBC RBC Hgb Hct MCV MCH MCHC RDW Plt Count MPV Neut % (Auto) Lymph % (Auto) Edwards % (Auto) Eos % (Auto) Baso % (Auto) Lymph # (Auto) Edwards # (Auto) Eos # (Auto) Baso # (Auto) Absolute Neuts (auto) Sodium Potassium Chloride Carbon Dioxide Anion Gap BUN Creatinine Est GFR ( Amer) Est GFR (Non-Af Amer) POC Glucose (mg/dL) 149 H Random Glucose Hemoglobin A1c 8.5 H Calcium Phosphorus Magnesium Total Bilirubin AST ALT Alkaline Phosphatase Total Protein Albumin Globulin Albumin/Globulin Ratio Triglycerides Cholesterol LDL Cholesterol Direct HDL Cholesterol Procalcitonin TSH 3rd Generation 0.05 L Ur L.pneumophila Ag 09/18/18 11:09 WBC RBC Hgb Hct MCV MCH MCHC RDW Plt Count MPV Neut % (Auto) Lymph % (Auto) Edwards % (Auto) Eos % (Auto) Baso % (Auto) Lymph # (Auto) Edwards # (Auto) Eos # (Auto) Baso # (Auto) Absolute Neuts (auto) Sodium Potassium Chloride Carbon Dioxide Anion Gap BUN Creatinine Est GFR ( Amer) Est GFR (Non-Af Amer) POC Glucose (mg/dL) 279 H Random Glucose Hemoglobin A1c Calcium Phosphorus Magnesium Total Bilirubin AST ALT Alkaline Phosphatase Total Protein Albumin Globulin Albumin/Globulin Ratio Triglycerides Cholesterol LDL Cholesterol Direct HDL Cholesterol Procalcitonin TSH 3rd Generation Ur L.pneumophila Ag Attending/Attestation - Attestation I have personally seen and examined this patient.: Yes I have fully participated in the care of the patient.: Yes I have reviewed all pertinent clinical information: Yes
--- NOTE | 2018-09-18 09:36 | CP.PCM.PN ---
<Maria ARosalinda - Last Filed: 09/18/18 12:51> Subjective - Date & Time of Evaluation Date of Evaluation: 09/18/18 Time of Evaluation: 09:36 - Subjective Subjective: Podiatry Progress Note: Dr. Little 58F patient seen and examined at bedside this AM for L foot non-healing ulceration to TMA site. Patient resting comfortably and in NAD. She admits to shortness of breath today secondary to pneumonia. She denies nausea/vomiting/ fever. Denies any pain to her left foot at this time. Objective - Vital Signs/Intake and Output Vital Signs (last 24 hours): Temp Pulse Resp BP Pulse Ox 98.3 F 102 H 20 117/77 97 09/18/18 06:00 09/18/18 06:00 09/18/18 06:00 09/18/18 06:00 09/18/18 06:00 Intake and Output: 09/18/18 09/18/18 06:59 18:59 Intake Total 1020 Balance 1020 - Medications Medications: Current Medications Acetaminophen (Tylenol 325mg Tab) 650 mg PO Q6H PRN PRN Reason: Fever >100.4 F Allopurinol (Zyloprim) 300 mg PO DAILY [facility] Aspirin (Aspirin Chewable) 81 mg PO DAILY [facility] Last Admin: 09/17/18 19:03 Dose: 81 mg Atorvastatin Calcium (Lipitor) 20 mg PO DIN [facility] Last Admin: 09/17/18 19:02 Dose: 20 mg Carvedilol (Coreg) 3.125 mg PO BID [facility] Last Admin: 09/17/18 19:02 Dose: 3.125 mg Clopidogrel Bisulfate (Plavix) 75 mg PO DAILY [facility] Last Admin: 09/17/18 19:02 Dose: 75 mg Gemfibrozil (Lopid) 600 mg PO BID [facility] Last Admin: 09/17/18 19:02 Dose: 600 mg Hydralazine HCl (Apresoline) 25 mg PO BID PRN PRN Reason: Other Cefepime HCl 0.5 gm/ Sodium (Chloride) 100 mls @ 100 mls/hr IVPB Q12H [facility]; Protocol Stop: 09/26/18 19:31 Last Admin: 09/17/18 21:10 Dose: 100 mls/hr Insulin Detemir (Levemir) 30 unit SC BID [facility] Last Admin: 09/17/18 19:03 Dose: 30 unit Insulin Human Lispro (Humalog Med) 0 units SC ACHS [facility]; Protocol Last Admin: 09/18/18 08:52 Dose: Not Given Insulin Human Lispro (Humalog) 30 units SC ACB [facility] Last Admin: 09/18/18 08:51 Dose: Not Given Levalbuterol HCl (Xopenex) 1.25 mg IH [id number] [facility] Last Admin: 09/18/18 07:22 Dose: 1.25 mg Methylprednisolone (Solu-Medrol) 40 mg IV Q12 [facility] Last Admin: 09/17/18 21:10 Dose: 40 mg Montelukast Sodium (Singulair) 10 mg PO HS [facility] Last Admin: 09/17/18 21:11 Dose: 10 mg Nortriptyline HCl (Pamelor) 100 mg PO [facility] Last Admin: 09/17/18 21:12 Dose: 100 mg Ondansetron HCl (Zofran Inj) 4 mg IVP Q6H PRN PRN Reason: Nausea/Vomiting Pantoprazole Sodium (Protonix Ec Tab) 20 mg PO DAILY [facility] Polysaccharide Iron Complex (Ferrex-150) 150 mg PO DAILY [facility] Quetiapine Fumarate (Seroquel Xr) 100 mg PO [facility]; Protocol Last Admin: 09/17/18 21:11 Dose: 100 mg Sevelamer HCl (Renagel) 800 mg PO TID [facility] Last Admin: 09/17/18 19:02 Dose: 800 mg - Labs Labs: 09/18/18 07:15 09/18/18 07:15 PT 13.9 SECONDS (9.4-12.5) H 09/17/18 12:15 INR 1.23 09/17/18 12:15 APTT 37.2 Seconds (26.9-38.3) 09/17/18 12:15 - Constitutional Appears: Non-toxic, No Acute Distress - Head Exam Head Exam: ATRAUMATIC, NORMOCEPHALIC - Eye Exam Eye Exam: Normal appearance - Extremities Exam Additional comments: LLE focused Vasc: DP/PT 1/4 , Temp gradient warm to warm from proximal to distal, no edema appreciated to left lower extremity at this time Ortho: No pain upon palpation, MMT 5/5 Neuro: Gross and protective sensations are diminished Derm: TMA amputation plantar aspect granular. No drainage present, no tunneling, no tracking, no erythema, no clinical signs of infection noted at this time - Neurological Exam Neurological Exam: Alert, Awake, Oriented x3 - Psychiatric Exam Psychiatric exam: Normal Affect, Normal Mood - Skin Skin Exam: Warm Assessment and Plan - Assessment and Plan (Free Text) Assessment: 58F with non-healing ulceration to L foot; stable at this time Plan: Patient seen and evaluated Discussed with Dr. Bills Afebrile, WBC 12.5 Most recent culture of L foot from Dr. Bills's office; light MRSA growth L foot local wound care: xeroform, ABD, and kerlix IV abx per ID No podiatric surgical intervention at this time, will continue to monitor <Rodríguez Little - Last Filed: 09/20/18 11:14> Objective - Vital Signs/Intake and Output Vital Signs (last 24 hours): Temp Pulse Resp BP Pulse Ox 98.7 F 68 18 125/66 95 09/20/18 06:00 09/20/18 06:00 09/20/18 06:00 09/20/18 09:20 09/20/18 06:00 Intake and Output: 09/20/18 09/20/18 06:59 18:59 Intake Total 780 Balance 780 - Medications Medications: Current Medications Acetaminophen (Tylenol 325mg Tab) 650 mg PO Q6H PRN PRN Reason: Fever >100.4 F Allopurinol (Zyloprim) 300 mg PO DAILY [facility] Last Admin: 09/20/18 09:19 Dose: 300 mg Aspirin (Aspirin Chewable) 81 mg PO DAILY [facility] Last Admin: 09/20/18 09:19 Dose: 81 mg Atorvastatin Calcium (Lipitor) 80 mg PO DIN [facility] Last Admin: 09/19/18 17:15 Dose: 80 mg Carvedilol (Coreg) 3.125 mg PO BID [facility] Last Admin: 09/20/18 09:19 Dose: 3.125 mg Clopidogrel Bisulfate (Plavix) 75 mg PO DAILY [facility] Last Admin: 09/20/18 09:19 Dose: 75 mg Doxycycline Hyclate (Doryx) 100 mg PO Q12 [facility]; Protocol Stop: 09/23/18 11:46 Last Admin: 09/20/18 09:19 Dose: 100 mg Furosemide (Lasix) 40 mg PO DAILY [facility] Last Admin: 09/20/18 09:20 Dose: 40 mg Gemfibrozil (Lopid) 600 mg PO BID [facility] Last Admin: 09/18/18 10:18 Dose: 600 mg Hydralazine HCl (Apresoline) 25 mg PO BID PRN PRN Reason: Other Cefepime HCl 0.5 gm/ Sodium (Chloride) 100 mls @ 100 mls/hr IVPB Q12H [facility]; Protocol Stop: 09/26/18 19:31 Last Admin: 09/20/18 06:37 Dose: 100 mls/hr Insulin Detemir (Levemir) 30 unit SC BID [facility] Last Admin: 09/20/18 09:20 Dose: 30 unit Insulin Human Lispro (Humalog Med) 0 units SC ACHS [facility]; Protocol Last Admin: 09/20/18 08:05 Dose: 3 unit Insulin Human Lispro (Humalog) 30 units SC ACB [facility] Last Admin: 09/20/18 08:06 Dose: 30 units Levalbuterol HCl (Xopenex) 1.25 mg IH [id number] [facility] Last Admin: 09/20/18 07:07 Dose: 1.25 mg Magnesium Oxide (Mag-Ox) 400 mg PO BID [facility] Last Admin: 09/20/18 09:19 Dose: 400 mg Methylprednisolone (Solu-Medrol) 30 mg IV Q12 [facility] Last Admin: 09/20/18 09:20 Dose: 30 mg Montelukast Sodium (Singulair) 10 mg PO HS [facility] Last Admin: 09/19/18 21:14 Dose: 10 mg Nortriptyline HCl (Pamelor) 100 mg PO [facility] Last Admin: 09/19/18 21:13 Dose: 100 mg Ondansetron HCl (Zofran Inj) 4 mg IVP Q6H PRN PRN Reason: Nausea/Vomiting Pantoprazole Sodium (Protonix Ec Tab) 20 mg PO DAILY [facility] Last Admin: 09/20/18 09:19 Dose: 20 mg Polysaccharide Iron Complex (Ferrex-150) 150 mg PO DAILY [facility] Last Admin: 09/20/18 09:19 Dose: 150 mg Quetiapine Fumarate (Seroquel Xr) 100 mg PO HS [facility]; Protocol Last Admin: 09/19/18 21:14 Dose: 100 mg Sevelamer HCl (Renagel) 800 mg PO TID [facility] Last Admin: 09/20/18 09:19 Dose: 800 mg - Labs Labs: 09/19/18 08:00 09/19/18 08:00 PT 13.9 SECONDS (9.4-12.5) H 09/17/18 12:15 INR 1.23 09/17/18 12:15 APTT 37.2 Seconds (26.9-38.3) 09/17/18 12:15 Attending/Attestation - Attestation I have personally seen and examined this patient.: Yes I have fully participated in the care of the patient.: Yes I have reviewed all pertinent clinical information, including history, physical exam and plan: Yes
[2018-09-18] MEDS: Pantoprazole 20 mg EC Tab PO SCH (10:19)
[2018-09-18] MEDS: Iron Complex Polysacch 150mg Cap PO SCH (10:19)
[2018-09-18] MEDS: MethylPREDNISolone 40 mg Vial IV SCH ×2 (10:19→21:22)
[2018-09-18] MEDS: Cefepime 0.5 GM in Sodium Chloride 0.9% 100 ML IVPB SCH ×2 (10:20→21:20)
[2018-09-18] MEDS: Insulin Detemir 100 units/ml Vial (Levemir) SC SCH ×2 (10:20→17:13)
[2018-09-18] MEDS ORDERED: Magnesium Sulfate 1 gm in D5W 1 GM/100 ML BAG IVPB ONE (11:43)
--- NOTE | 2018-09-18 12:58 | CT ---
Date of service: 09/18/2018 PROCEDURE: CT Chest without contrast HISTORY: sob COMPARISON: 02/04/2014. CT abdomen and pelvis. TECHNIQUE: Contiguous axial images were obtained through the chest without intravenous contrast enhancement. Sagittal and coronal reconstructions were performed. Radiation dose: Total exam DLP = 587.71 mGy-cm. This CT exam was performed using one or more of the following dose reduction techniques: Automated exposure control, adjustment of the mA and/or kV according to patient size, and/or use of iterative reconstruction technique. FINDINGS: LUNGS: Subsegmental infiltrates in the lingula and medial segment of the right middle lobe. Hyperinflation/manifestations of COPD include peribronchial thickening consistent with bronchitis. No suspicious pulmonary nodules or masses. MEDIASTINUM: Unremarkable thoracic aorta. No aneurysm. Cardiomegaly. No evidence of acute, significant cardiovascular disease. Main pulmonary artery unremarkable. No vascular congestion. No lymphadenopathy. No aortic atherosclerotic calcification. PLEURA: No pleural fluid. No pneumothorax. BONES: No fracture. No destructive lesion. Sclerotic focus T11 vertebral body, similar finding identified on prior CT scan. UPPER ABDOMEN: Cholelithiasis without CT evidence of acute cholecystitis. Similar findings identified on the prior CT scan 02/04/2014 OTHER FINDINGS: None. IMPRESSION: Subsegmental infiltrates right middle lobe and lingula. Manifestations of COPD-bronchitis. Additional benign and/or incidental findings described above.
--- NOTE | 2018-09-18 15:11 | PN ---
DATE: 09/18/2018 SUBJECTIVE: The patient is a 58-year-old, seen and examined. She states she feels little better, still has cough and congestion, started on antibiotic, on nebulizer treatment. PHYSICAL EXAMINATION: VITAL SIGNS: She is afebrile, pulse 90, respiration 20, and blood pressure 120/70. LUNGS: Bilateral fair airflow. No expiratory rhonchi. HEART: S1 and S2 audible. ABDOMEN: Soft, obese, and nontender. No rebound. No guarding. NEUROLOGIC: The patient is awake and alert; able to communicate. EXTREMITIES: Left foot is in the cast. Bilateral leg; no edema. LABORATORY DATA: WBC 12.5, hemoglobin 8.8, hematocrit 28.6, and platelet 288. Chemistry; sodium 138, potassium 4.3, chloride 105, CO2 of 25, BUN 67, creatinine 2.3, blood sugar 149, and magnesium 1.6. ASSESSMENT: 1. Failed outpatient treatment. 2. Persistent cough with finding of asthmatic bronchitis. 3. Insulin-dependent diabetes. 4. Hypertension. 5. Hyperlipidemia. 6. Coronary artery disease, status post angioplasty. 7. Status post left transmetatarsal amputation. PLAN: Currently, the patient is on antibiotic as recommended by ID. I will order for CT scan of the chest to rule out underlying pneumonia because the patient's white count could be because of the steroid, because she was being given steroid as outpatient. I will order for procalcitonin and follow up on CT scan of the chest and we will make further recommendation. At this point, there is no evidence of coronary ischemia. I will discontinue telemetry. Colt Zhu MD
[2018-09-18] MEDS: Magnesium Oxide 400 mg Tab UD PO SCH (17:12)
[2018-09-18] MEDS: QUEtiapine 50 mg XR Tab PO SCH (21:20)
[2018-09-19] MEDS: Levalbuterol 1.25 MG/3 ML Inhal Soln UD IH SCH ×4 (01:28→19:31)
--- NOTE | 2018-09-19 07:28 | CP.PCM.PN ---
<Clarence Tovar - Last Filed: 09/19/18 12:18> Subjective - Date & Time of Evaluation Date of Evaluation: 09/19/18 Time of Evaluation: 09:20 - Subjective Subjective: Infectious disease progress note: Pt seen and examined at bedside. No acute events overnight. Still is coughing. No fevers or chills. No complaints. 12 Point ROS performed and neg other than stated above Objective - Vital Signs/Intake and Output Vital Signs (last 24 hours): Temp Pulse Resp BP Pulse Ox 98.1 F 101 H 18 145/94 H 97 09/19/18 05:10 09/19/18 05:10 09/19/18 05:10 09/19/18 05:10 09/19/18 05:10 Intake and Output: 09/19/18 09/19/18 06:59 18:59 Intake Total 300 Balance 300 - Medications Medications: Current Medications Acetaminophen (Tylenol 325mg Tab) 650 mg PO Q6H PRN PRN Reason: Fever >100.4 F Allopurinol (Zyloprim) 300 mg PO DAILY [facility] Last Admin: 09/18/18 10:18 Dose: 300 mg Aspirin (Aspirin Chewable) 81 mg PO DAILY [facility] Last Admin: 09/18/18 10:17 Dose: 81 mg Atorvastatin Calcium (Lipitor) 80 mg PO DIN [facility] Last Admin: 09/18/18 17:12 Dose: 80 mg Carvedilol (Coreg) 3.125 mg PO BID [facility] Last Admin: 09/18/18 17:12 Dose: 3.125 mg Clopidogrel Bisulfate (Plavix) 75 mg PO DAILY [facility] Last Admin: 09/18/18 10:17 Dose: 75 mg Doxycycline Hyclate (Doryx) 100 mg PO Q12 [facility]; Protocol Stop: 09/23/18 11:46 Last Admin: 09/18/18 21:22 Dose: 100 mg Furosemide (Lasix) 40 mg PO DAILY [facility] Gemfibrozil (Lopid) 600 mg PO BID [facility] Last Admin: 09/18/18 10:18 Dose: 600 mg Hydralazine HCl (Apresoline) 25 mg PO BID PRN PRN Reason: Other Cefepime HCl 0.5 gm/ Sodium (Chloride) 100 mls @ 100 mls/hr IVPB Q12H [facility]; Protocol Stop: 09/26/18 19:31 Last Admin: 09/18/18 21:20 Dose: 100 mls/hr Insulin Detemir (Levemir) 30 unit SC BID [facility] Last Admin: 09/18/18 17:13 Dose: 30 unit Insulin Human Lispro (Humalog Med) 0 units SC ACHS [facility]; Protocol Last Admin: 09/18/18 21:43 Dose: 4 unit Insulin Human Lispro (Humalog) 30 units SC ACB [facility] Last Admin: 09/18/18 08:51 Dose: Not Given Levalbuterol HCl (Xopenex) 1.25 mg IH [id number] [facility] Last Admin: 09/19/18 07:22 Dose: 1.25 mg Magnesium Oxide (Mag-Ox) 400 mg PO BID [facility] Last Admin: 09/18/18 17:12 Dose: 400 mg Methylprednisolone (Solu-Medrol) 40 mg IV Q12 [facility] Last Admin: 09/18/18 21:22 Dose: 40 mg Montelukast Sodium (Singulair) [address] [facility] Last Admin: 09/18/18 21:28 Dose: 10 mg Nortriptyline HCl (Pamelor) [address] [facility] Last Admin: 09/18/18 21:43 Dose: 100 mg Ondansetron HCl (Zofran Inj) 4 mg IVP Q6H PRN PRN Reason: Nausea/Vomiting Pantoprazole Sodium (Protonix Ec Tab) 20 mg PO DAILY [facility] Last Admin: 09/18/18 10:19 Dose: 20 mg Polysaccharide Iron Complex (Ferrex-150) 150 mg PO DAILY [facility] Last Admin: 09/18/18 10:19 Dose: 150 mg Quetiapine Fumarate (Seroquel Xr) [address] [facility]; Protocol Last Admin: 09/18/18 21:20 Dose: 100 mg Sevelamer HCl (Renagel) 800 mg PO TID [facility] Last Admin: 09/18/18 17:12 Dose: 800 mg - Labs Labs: 09/18/18 07:15 09/18/18 07:15 PT 13.9 SECONDS (9.4-12.5) H 09/17/18 12:15 INR 1.23 09/17/18 12:15 APTT 37.2 Seconds (26.9-38.3) 09/17/18 12:15 - Constitutional Appears: No Acute Distress - Head Exam Head Exam: ATRAUMATIC, NORMOCEPHALIC - Eye Exam Eye Exam: EOMI - ENT Exam ENT Exam: Mucous Membranes Moist - Respiratory Exam Respiratory Exam: Decreased Breath Sounds, Clear to Ausculation Bilateral, Rhonchi (R side ). absent: Rales, Wheezes - Cardiovascular Exam Cardiovascular Exam: REGULAR RHYTHM, +S1, +S2 - GI/Abdominal Exam GI & Abdominal Exam: Soft. absent: Tenderness - Extremities Exam Extremities Exam: absent: Calf Tenderness, Pedal Edema - Neurological Exam Neurological Exam: Alert, Awake, Oriented x3 - Psychiatric Exam Psychiatric exam: Normal Mood - Skin Skin Exam: Dry, Warm Assessment and Plan - Assessment and Plan (Free Text) Assessment: Sepsis secondary to community acquired pneumonia Left foot chronic ulcer and cellulites Chronic kidney disease CAD with stents Insulin-dependent diabetes History of COPD Hypertension Chronic anemia Peripheral vascular disease Diabetic retinopathy Diabetic nephropathy History of DVT History of PE History of acute kidney injury requiring dialysis Continue with cefepime day 3, and Doxy day 2, upon d/c can go with Doxy 100mg PO BID for 5 days Follow-up septic work-up, leigonella neg, procalcitonin neg Follow-up cardiology recommendations Follow-up podiatry recommendations Continue to monitor for any changes Case and plan to be reviewed and discussed with Dr. Kent <Terrance Kent - Last Filed: 09/19/18 12:21> Objective - Vital Signs/Intake and Output Vital Signs (last 24 hours): Temp Pulse Resp BP Pulse Ox 97.7 F 105 H 18 135/87 97 09/19/18 12:00 09/19/18 12:00 09/19/18 12:00 09/19/18 12:00 09/19/18 05:10 Intake and Output: 09/19/18 09/19/18 06:59 18:59 Intake Total 300 Balance 300 - Medications Medications: Current Medications Acetaminophen (Tylenol 325mg Tab) 650 mg PO Q6H PRN PRN Reason: Fever >100.4 F Allopurinol (Zyloprim) 300 mg PO DAILY [facility] Last Admin: 09/19/18 09:36 Dose: 300 mg Aspirin (Aspirin Chewable) 81 mg PO DAILY [facility] Last Admin: 09/19/18 09:37 Dose: 81 mg Atorvastatin Calcium (Lipitor) 80 mg PO DIN [facility] Last Admin: 09/18/18 17:12 Dose: 80 mg Carvedilol (Coreg) 3.125 mg PO BID [facility] Last Admin: 09/19/18 09:35 Dose: 3.125 mg Clopidogrel Bisulfate (Plavix) 75 mg PO DAILY [facility] Last Admin: 09/19/18 09:36 Dose: 75 mg Doxycycline Hyclate (Doryx) 100 mg PO Q12 [facility]; Protocol Stop: 09/23/18 11:46 Last Admin: 09/19/18 09:36 Dose: 100 mg Furosemide (Lasix) 40 mg PO DAILY [facility] Last Admin: 09/19/18 09:36 Dose: 40 mg Gemfibrozil (Lopid) 600 mg PO BID [facility] Last Admin: 09/18/18 10:18 Dose: 600 mg Hydralazine HCl (Apresoline) 25 mg PO BID PRN PRN Reason: Other Cefepime HCl 0.5 gm/ Sodium (Chloride) 100 mls @ 100 mls/hr IVPB Q12H [facility]; Protocol Stop: 09/26/18 19:31 Last Admin: 09/19/18 09:35 Dose: 100 mls/hr Insulin Detemir (Levemir) 30 unit SC BID [facility] Last Admin: 09/19/18 09:37 Dose: 30 unit Insulin Human Lispro (Humalog Med) 0 units SC ACHS [facility]; Protocol Last Admin: 09/19/18 08:46 Dose: 2 unit Insulin Human Lispro (Humalog) 30 units SC ACB [facility] Last Admin: 09/19/18 09:42 Dose: Not Given Levalbuterol HCl (Xopenex) 1.25 mg IH [id number] [facility] Last Admin: 09/19/18 07:22 Dose: 1.25 mg Magnesium Oxide (Mag-Ox) 400 mg PO BID [facility] Last Admin: 09/19/18 09:35 Dose: 400 mg Methylprednisolone (Solu-Medrol) 20 mg IV Q12 [facility] Montelukast Sodium (Singulair) 10 mg PO HS [facility] Last Admin: 09/18/18 21:28 Dose: 10 mg Nortriptyline HCl (Pamelor) 100 mg PO HS [facility] Last Admin: 09/18/18 21:43 Dose: 100 mg Ondansetron HCl (Zofran Inj) 4 mg IVP Q6H PRN PRN Reason: Nausea/Vomiting Pantoprazole Sodium (Protonix Ec Tab) 20 mg PO DAILY [facility] Last Admin: 09/19/18 09:36 Dose: 20 mg Polysaccharide Iron Complex (Ferrex-150) 150 mg PO DAILY [facility] Last Admin: 09/19/18 09:35 Dose: 150 mg Quetiapine Fumarate (Seroquel Xr) 100 mg PO HS [facility]; Protocol Last Admin: 09/18/18 21:20 Dose: 100 mg Sevelamer HCl (Renagel) 800 mg PO TID [facility] Last Admin: 09/19/18 09:37 Dose: 800 mg - Labs Labs: 09/19/18 08:00 09/19/18 08:00 PT 13.9 SECONDS (9.4-12.5) H 09/17/18 12:15 INR 1.23 09/17/18 12:15 APTT 37.2 Seconds (26.9-38.3) 09/17/18 12:15 Attending/Attestation - Attestation I have personally seen and examined this patient.: Yes I have fully participated in the care of the patient.: Yes I have reviewed all pertinent clinical information, including history, physical exam and plan: Yes
--- NOTE | 2018-09-19 08:00 | CP.PCM.PN ---
Subjective - Date & Time of Evaluation Date of Evaluation: 09/19/18 Time of Evaluation: 06:30 - Subjective Subjective: Awake, alert, no distress,lying in bed Reason for consultation and follow up: Cardiac follow up of coronary artery disease post stents, admitted for pneumonia and sepsis Seen and examined by me and Dr. Anton Objective - Vital Signs/Intake and Output Vital Signs (last 24 hours): Temp Pulse Resp BP Pulse Ox 98.1 F 101 H 18 145/94 H 97 09/19/18 05:10 09/19/18 05:10 09/19/18 05:10 09/19/18 05:10 09/19/18 05:10 Intake and Output: 09/19/18 09/19/18 06:59 18:59 Intake Total 300 Balance 300 - Medications Medications: Current Medications Acetaminophen (Tylenol 325mg Tab) 650 mg PO Q6H PRN PRN Reason: Fever >100.4 F Allopurinol (Zyloprim) 300 mg PO DAILY [facility] Last Admin: 09/18/18 10:18 Dose: 300 mg Aspirin (Aspirin Chewable) 81 mg PO DAILY [facility] Last Admin: 09/18/18 10:17 Dose: 81 mg Atorvastatin Calcium (Lipitor) 80 mg PO DIN [facility] Last Admin: 09/18/18 17:12 Dose: 80 mg Carvedilol (Coreg) 3.125 mg PO BID [facility] Last Admin: 09/18/18 17:12 Dose: 3.125 mg Clopidogrel Bisulfate (Plavix) 75 mg PO DAILY [facility] Last Admin: 09/18/18 10:17 Dose: 75 mg Doxycycline Hyclate (Doryx) 100 mg PO Q12 [facility]; Protocol Stop: 09/23/18 11:46 Last Admin: 09/18/18 21:22 Dose: 100 mg Furosemide (Lasix) 40 mg PO DAILY [facility] Gemfibrozil (Lopid) 600 mg PO BID [facility] Last Admin: 09/18/18 10:18 Dose: 600 mg Hydralazine HCl (Apresoline) 25 mg PO BID PRN PRN Reason: Other Cefepime HCl 0.5 gm/ Sodium (Chloride) 100 mls @ 100 mls/hr IVPB Q12H [facility]; Protocol Stop: 09/26/18 19:31 Last Admin: 09/18/18 21:20 Dose: 100 mls/hr Insulin Detemir (Levemir) 30 unit SC BID [facility] Last Admin: 09/18/18 17:13 Dose: 30 unit Insulin Human Lispro (Humalog Med) 0 units SC ACHS [facility]; Protocol Last Admin: 09/18/18 21:43 Dose: 4 unit Insulin Human Lispro (Humalog) 30 units SC ACB [facility] Last Admin: 09/18/18 08:51 Dose: Not Given Levalbuterol HCl (Xopenex) 1.25 mg IH [id number] [facility] Last Admin: 09/19/18 07:22 Dose: 1.25 mg Magnesium Oxide (Mag-Ox) 400 mg PO BID [facility] Last Admin: 09/18/18 17:12 Dose: 400 mg Methylprednisolone (Solu-Medrol) 40 mg IV Q12 [facility] Last Admin: 09/18/18 21:22 Dose: 40 mg Montelukast Sodium (Singulair) 10 mg PO [facility] Last Admin: 09/18/18 21:28 Dose: 10 mg Nortriptyline HCl (Pamelor) 100 mg PO [facility] Last Admin: 09/18/18 21:43 Dose: 100 mg Ondansetron HCl (Zofran Inj) 4 mg IVP Q6H PRN PRN Reason: Nausea/Vomiting Pantoprazole Sodium (Protonix Ec Tab) 20 mg PO DAILY [facility] Last Admin: 09/18/18 10:19 Dose: 20 mg Polysaccharide Iron Complex (Ferrex-150) 150 mg PO DAILY [facility] Last Admin: 09/18/18 10:19 Dose: 150 mg Quetiapine Fumarate (Seroquel Xr) 100 mg PO [facility]; Protocol Last Admin: 09/18/18 21:20 Dose: 100 mg Sevelamer HCl (Renagel) 800 mg PO TID [facility] Last Admin: 09/18/18 17:12 Dose: 800 mg - Labs Labs: 09/18/18 07:15 09/18/18 07:15 PT 13.9 SECONDS (9.4-12.5) H 09/17/18 12:15 INR 1.23 09/17/18 12:15 APTT 37.2 Seconds (26.9-38.3) 09/17/18 12:15 - Constitutional Appears: Non-toxic, No Acute Distress - Head Exam Head Exam: NORMAL INSPECTION, NORMOCEPHALIC - Eye Exam Eye Exam: Normal appearance Pupil Exam: NORMAL ACCOMODATION - ENT Exam ENT Exam: Mucous Membranes Moist, Normal Exam - Respiratory Exam Respiratory Exam: Decreased Breath Sounds, Clear to Ausculation Bilateral, NORMAL BREATHING PATTERN - Cardiovascular Exam Cardiovascular Exam: +S1, +S2 - GI/Abdominal Exam GI & Abdominal Exam: Soft, Normal Bowel Sounds - Extremities Exam Extremities Exam: Full ROM Additional comments: left foot dressing - Neurological Exam Neurological Exam: Alert, Awake, Oriented x3 - Psychiatric Exam Psychiatric exam: Normal Affect, Normal Mood - Skin Skin Exam: Dry, Normal Color, Warm Assessment and Plan - Assessment and Plan (Free Text) Assessment: A 58 year old female who came in to the ER due shortness of breath. Admitted for pneumonia. History of coronary artery disease status post PTCA in 02/2013, peripheral vascular disease with multiple vascular interventions, history of myocutaneous graft, history of abscess of left foot, CHF, hypertension, COPD,foot neuroopathy,diabetes, hernia, endometriosis, depression. EKG showed sinus tachycardia, no ischemia. No evidence of acute coronary syndrome. Echo done on 03/16/18 showed normal LVEF, mild to moderate MR, mild TR, mild pulmonary hypertension. CT of chest showed right middle lobe infiltrate. ID on consult. On IV antibiotics. Pulmonary on consult. Podiatry on consult. Cardiac status stable. Feels better.Discontinue telemetry. Plan: No distress,denies chest pain, Heart rate stable Blood pressure controlled Cardiac status stable On ASA 81 mg daily, Lipitor 20 mg daily, Coreg 3.125 mg BID, Solumedrol 40 mg IV every 12 hours, Continue current treatment and management Continue IV antibiotics per ID Pulmonary on consult Glucose control Discontinue telemetry Will follow up Plan and treatment discussed with Dr. Anton
--- NOTE | 2018-09-19 08:13 | CP.PCM.PN ---
<Rosalinda Saha - Last Filed: 09/19/18 09:49> Subjective - Date & Time of Evaluation Date of Evaluation: 09/19/18 Time of Evaluation: 08:13 - Subjective Subjective: Podiatry Progress Note: Dr. Bills 58F patient seen and examined at bedside with Dr. Bills for L foot non-healing ulceration to TMA site. Patient resting comfortably and in NAD. She denies any pain to the left lower extremity at this time. She denies any new pedal complaints. Denies nausea/vomiting/fever, admits to shortness of breath. Objective - Vital Signs/Intake and Output Vital Signs (last 24 hours): Temp Pulse Resp BP Pulse Ox 98.1 F 101 H 18 145/94 H 97 09/19/18 05:10 09/19/18 05:10 09/19/18 05:10 09/19/18 05:10 09/19/18 05:10 Intake and Output: 09/19/18 09/19/18 06:59 18:59 Intake Total 300 Balance 300 - Medications Medications: Current Medications Acetaminophen (Tylenol 325mg Tab) 650 mg PO Q6H PRN PRN Reason: Fever >100.4 F Allopurinol (Zyloprim) 300 mg PO DAILY [facility] Last Admin: 09/18/18 10:18 Dose: 300 mg Aspirin (Aspirin Chewable) 81 mg PO DAILY [facility] Last Admin: 09/18/18 10:17 Dose: 81 mg Atorvastatin Calcium (Lipitor) 80 mg PO DIN [facility] Last Admin: 09/18/18 17:12 Dose: 80 mg Carvedilol (Coreg) 3.125 mg PO BID [facility] Last Admin: 09/18/18 17:12 Dose: 3.125 mg Clopidogrel Bisulfate (Plavix) 75 mg PO DAILY [facility] Last Admin: 09/18/18 10:17 Dose: 75 mg Doxycycline Hyclate (Doryx) 100 mg PO Q12 [facility]; Protocol Stop: 09/23/18 11:46 Last Admin: 09/18/18 21:22 Dose: 100 mg Furosemide (Lasix) 40 mg PO DAILY [facility] Gemfibrozil (Lopid) 600 mg PO BID [facility] Last Admin: 09/18/18 10:18 Dose: 600 mg Hydralazine HCl (Apresoline) 25 mg PO BID PRN PRN Reason: Other Cefepime HCl 0.5 gm/ Sodium (Chloride) 100 mls @ 100 mls/hr IVPB Q12H [facility]; Protocol Stop: 09/26/18 19:31 Last Admin: 09/18/18 21:20 Dose: 100 mls/hr Insulin Detemir (Levemir) 30 unit SC BID [facility] Last Admin: 09/18/18 17:13 Dose: 30 unit Insulin Human Lispro (Humalog Med) 0 units SC ACHS [facility]; Protocol Last Admin: 09/18/18 21:43 Dose: 4 unit Insulin Human Lispro (Humalog) 30 units SC ACB [facility] Last Admin: 09/18/18 08:51 Dose: Not Given Levalbuterol HCl (Xopenex) 1.25 mg IH [id number] [facility] Last Admin: 09/19/18 07:22 Dose: 1.25 mg Magnesium Oxide (Mag-Ox) 400 mg PO BID [facility] Last Admin: 09/18/18 17:12 Dose: 400 mg Methylprednisolone (Solu-Medrol) 40 mg IV Q12 [facility] Last Admin: 09/18/18 21:22 Dose: 40 mg Montelukast Sodium (Singulair) 10 mg PO HS [facility] Last Admin: 09/18/18 21:28 Dose: 10 mg Nortriptyline HCl (Pamelor) 100 mg PO HS [facility] Last Admin: 09/18/18 21:43 Dose: 100 mg Ondansetron HCl (Zofran Inj) 4 mg IVP Q6H PRN PRN Reason: Nausea/Vomiting Pantoprazole Sodium (Protonix Ec Tab) 20 mg PO DAILY [facility] Last Admin: 09/18/18 10:19 Dose: 20 mg Polysaccharide Iron Complex (Ferrex-150) 150 mg PO DAILY [facility] Last Admin: 09/18/18 10:19 Dose: 150 mg Quetiapine Fumarate (Seroquel Xr) 100 mg PO HS [facility]; Protocol Last Admin: 09/18/18 21:20 Dose: 100 mg Sevelamer HCl (Renagel) 800 mg PO TID [facility] Last Admin: 09/18/18 17:12 Dose: 800 mg - Labs Labs: 09/18/18 07:15 09/18/18 07:15 PT 13.9 SECONDS (9.4-12.5) H 09/17/18 12:15 INR 1.23 09/17/18 12:15 APTT 37.2 Seconds (26.9-38.3) 09/17/18 12:15 - Constitutional Appears: Non-toxic, No Acute Distress - Head Exam Head Exam: ATRAUMATIC, NORMOCEPHALIC - Eye Exam Eye Exam: Normal appearance - Extremities Exam Additional comments: LLE focused Vasc: DP/PT 1/4 , Temp gradient warm to warm from proximal to distal, no edema appreciated to left lower extremity at this time Ortho: No pain upon palpation, MMT 5/5 Neuro: Gross and protective sensations are diminished Derm: TMA site ulceration with granular base at this time. No drainage present, no tunneling, no tracking, no erythema, no clinical signs of infection noted at this time - Neurological Exam Neurological Exam: Alert, Awake, Oriented x3 - Psychiatric Exam Psychiatric exam: Normal Affect, Normal Mood - Skin Skin Exam: Warm Assessment and Plan - Assessment and Plan (Free Text) Assessment: 58F with non-healing ulceration to L foot; stable at this time Plan: Patient seen and evaluated with Dr. Bills Most recent culture of L foot from Dr. Bills's office; light MRSA growth L foot local wound care: saline cleanse, xeroform, ABD, and kerlix IV abx per ID No podiatric surgical intervention at this time Will continue to follow while in house, upon d/c patient to f/u with Dr. Bills <Guillermina Bills - Last Filed: 09/22/18 08:23> Objective - Vital Signs/Intake and Output Vital Signs (last 24 hours): Temp Pulse Resp BP Pulse Ox 98.7 F 68 18 125/66 95 09/20/18 06:00 09/20/18 06:00 09/20/18 06:00 09/20/18 09:20 09/20/18 06:00 - Labs Labs: 09/19/18 08:00 09/19/18 08:00 PT 13.9 SECONDS (9.4-12.5) H 09/17/18 12:15 INR 1.23 09/17/18 12:15 APTT 37.2 Seconds (26.9-38.3) 09/17/18 12:15 Attending/Attestation - Attestation I have personally seen and examined this patient.: Yes I have fully participated in the care of the patient.: Yes I have reviewed all pertinent clinical information, including history, physical exam and plan: Yes
[2018-09-19 08:24] LABS: BASO # 0.01 K/mm3 (0.0-2.0); BASO % 0.1 % (0.0-3.0); EOS # 0.2 (0.0-0.7); EOS % 1.4 % (1.5-5.0); HEMOGLOBIN 9.3 g/dL (12.0-16.0); LYMPH # 1.2 (1.2-3.4); LYMPH % 10.6 % (22.0-35.0); MEAN CELL VOLUME 92.1 fl (80.0-105.0); MEAN CORPUSCULAR HEMOGLOBIN 28.2 pg (25.0-35.0); MEAN CORPUSCULAR HGB CONC 30.6 g/dl (31.0-37.0); MEAN PLATELET VOLUME 10.6 fl (7.0-11.0); MONO # 0.7 (0.1-0.6); MONO % 5.9 % (1.0-6.0); RBC 3.3 10^6/uL (3.5-6.1); RED CELL DISTRIBUTION WIDTH 17.6 % (11.5-14.5); WHITE BLOOD COUNT 11.5 10^3/uL (4.5-11.0)
[2018-09-19 08:30] LABS: ALBUMIN 3.7 g/dL (3.0-4.8); CALCIUM 9.4 mg/dL (8.4-10.5)
[2018-09-19] MEDS: Insulin Lispro (humaLOG) MEDIUM Coverage SC SCH ×4 (08:46→22:02)
[2018-09-19] MEDS: Magnesium Oxide 400 mg Tab UD PO SCH ×2 (09:35→17:15)
[2018-09-19] MEDS: Cefepime 0.5 GM in Sodium Chloride 0.9% 100 ML IVPB SCH ×2 (09:35→18:34)
[2018-09-19] MEDS: Iron Complex Polysacch 150mg Cap PO SCH (09:35)
[2018-09-19] MEDS: MethylPREDNISolone 40 mg Vial IV SCH ×2 (09:36→21:15)
[2018-09-19] MEDS: Pantoprazole 20 mg EC Tab PO SCH (09:36)
[2018-09-19] MEDS: Insulin Detemir 100 units/ml Vial (Levemir) SC SCH ×2 (09:37→17:14)
[2018-09-19] MEDS: Insulin Lispro 1 UNITS/0.01 ML SC SCH (09:42)
[2018-09-19] MEDS ORDERED: MethylPREDNISolone 40 mg Vial IV SCH (10:47)
--- NOTE | 2018-09-19 12:10 | CP.PCM.PCO ---
Physician Communication Note - Physician Communication Note Physician Communication Note: continue antibiotics as per ID, continue solumedrol IVP
--- NOTE | 2018-09-19 12:28 | PQF ---
PROVIDER RESPONSE TEXT: Stage 4 CKD REVIEWER QUERY TEXT: Kidney Disease, Chronic CKD Stage Chronic Kidney Disease (CKD) is documented in the Medical Record. Please specify the disease stage ( includes probable or suspected) Such as: -- Chronic kidney disease Stage 1 -- Chronic kidney disease Stage 2 -- Chronic kidney disease Stage 3 -- Chronic kidney disease Stage 4 -- Chronic kidney disease Stage 5 -- Chronic kidney disease Stage 5, requiring dialysis -- End Stage Renal Disease -- Other, please specify Stages are defined by the [employer] as follows: CKD Stage I GFR >= 90 ml / min per 1.73 m2 and persistent albuminuria CKD Stage 2 GFR between 60 and 89 with persistent albuminuria CKD Stage 3 GFR between 30 and 59 CKD Stage 4 GFR between 15 and 29 CKD Stage 5 GFR between <15 or End Stage Renal Disease The patient's Clinical Indicators include: Admitted w/ DM, hx CKD, BUN- 69, Cr- 2.6, Please specify STAGE of CKD POA Query created by: Alix Harrington on 09/18/2018 9:21 AM Electronically signed by: Colt Zhu MD 09/19/2018 12:24 PM
--- NOTE | 2018-09-19 14:35 | PN ---
DATE: 09/19/2018 SUBJECTIVE: The patient is 58 years old, seen and examined, sitting in upright position, still have persistent cough, audible wheezing, gets short of breath on walking to bathroom. No fever or chills. PHYSICAL EXAMINATION: VITAL SIGNS: She is afebrile. Pulse 105, respirations 18, and blood pressure 135/87. LUNGS: Bilateral expiratory rhonchi more so posteriorly in the middle and the low lung region. HEART: S1 and S2, audible. ABDOMEN: Soft, obese and nontender. No rebound. No guarding. NEUROLOGIC: The patient is awake and alert, able to communicate. EXTREMITIES: Left foot is in the cast. LABORATORY DATA: WBC is 11.5, hemoglobin 9.3, hematocrit 30.4, and platelets 293. Chemistry; sodium 142, potassium 4.0, chloride 106, CO2 of 27, BUN 72, creatinine 2.3 and blood sugar of 258. She had CT scan of the chest done that shows both CHF and subsegmental infiltrate, right middle lobe and the lingula and also COPD and bronchitis. ASSESSMENT: 1. Community-acquired pneumonia, failed outpatient treatment. She was on Levaquin and steroids with no significant relief. The patient also has mix picture of congestive heart failure along with chronic obstructive pulmonary disease and pneumonia. 2. Coronary artery disease, status post angioplasty. 3. Chronic kidney disease. 4. Peripheral vascular disease. 5. Left foot ulcer, status post skin graft. Currently, the TMA is in the cast. PLAN: We will continue the patient on IV steroid, continue Lasix. Decrease her Solu-Medrol to 30 mg every 12 hours. Monitor blood sugar and currently she is on p.o. doxycycline and IV meropenem, continue on that as per ID recommendation. We can discontinue telemetry. Continue to monitor blood sugar. We will follow up in a.m. Colt Zhu MD
[2018-09-19] MEDS: QUEtiapine 50 mg XR Tab PO SCH (21:14)
[2018-09-20] MEDS: Levalbuterol 1.25 MG/3 ML Inhal Soln UD IH SCH ×4 (01:18→13:11)
[2018-09-20] MEDS: Cefepime 0.5 GM in Sodium Chloride 0.9% 100 ML IVPB SCH (06:37)
--- NOTE | 2018-09-20 07:47 | CP.PCM.PN ---
Subjective - Date & Time of Evaluation Date of Evaluation: 09/20/18 Time of Evaluation: 09:50 - Subjective Subjective: Infectious disease progress note: Pt seen and examined at bedside. No acute events overnight. Patient still complaining of mild cough however states that it is improved. No fevers. 12 Point ROS performed and neg other than stated above Objective - Vital Signs/Intake and Output Vital Signs (last 24 hours): Temp Pulse Resp BP Pulse Ox 98.6 F 103 H 20 136/88 96 09/19/18 22:28 09/19/18 22:28 09/19/18 22:28 09/19/18 22:28 09/19/18 22:28 Intake and Output: 09/20/18 09/20/18 06:59 18:59 Intake Total 780 Balance 780 - Medications Medications: Current Medications Acetaminophen (Tylenol 325mg Tab) 650 mg PO Q6H PRN PRN Reason: Fever >100.4 F Allopurinol (Zyloprim) 300 mg PO DAILY [facility] Last Admin: 09/19/18 09:36 Dose: 300 mg Aspirin (Aspirin Chewable) 81 mg PO DAILY [facility] Last Admin: 09/19/18 09:37 Dose: 81 mg Atorvastatin Calcium (Lipitor) 80 mg PO DIN [facility] Last Admin: 09/19/18 17:15 Dose: 80 mg Carvedilol (Coreg) 3.125 mg PO BID [facility] Last Admin: 09/19/18 17:15 Dose: 3.125 mg Clopidogrel Bisulfate (Plavix) 75 mg PO DAILY [facility] Last Admin: 09/19/18 09:36 Dose: 75 mg Doxycycline Hyclate (Doryx) 100 mg PO Q12 [facility]; Protocol Stop: 09/23/18 11:46 Last Admin: 09/19/18 21:14 Dose: 100 mg Furosemide (Lasix) 40 mg PO DAILY [facility] Last Admin: 09/19/18 09:36 Dose: 40 mg Gemfibrozil (Lopid) 600 mg PO BID [facility] Last Admin: 09/18/18 10:18 Dose: 600 mg Hydralazine HCl (Apresoline) 25 mg PO BID PRN PRN Reason: Other Cefepime HCl 0.5 gm/ Sodium (Chloride) 100 mls @ 100 mls/hr IVPB Q12H [facility]; Protocol Stop: 09/26/18 19:31 Last Admin: 09/20/18 06:37 Dose: 100 mls/hr Insulin Detemir (Levemir) 30 unit SC BID [facility] Last Admin: 09/19/18 17:14 Dose: 30 unit Insulin Human Lispro (Humalog Med) 0 units SC ACHS [facility]; Protocol Last Admin: 09/19/18 22:02 Dose: Not Given Insulin Human Lispro (Humalog) 30 units SC ACB [facility] Last Admin: 09/19/18 09:42 Dose: Not Given Levalbuterol HCl (Xopenex) 1.25 mg IH [id number] [facility] Last Admin: 09/20/18 07:07 Dose: 1.25 mg Magnesium Oxide (Mag-Ox) 400 mg PO BID [facility] Last Admin: 09/19/18 17:15 Dose: 400 mg Methylprednisolone (Solu-Medrol) 30 mg IV Q12 [facility] Last Admin: 09/19/18 21:15 Dose: 30 mg Montelukast Sodium (Singulair) 10 mg PO HS [facility] Last Admin: 09/19/18 21:14 Dose: 10 mg Nortriptyline HCl (Pamelor) 100 mg PO [facility] Last Admin: 09/19/18 21:13 Dose: 100 mg Ondansetron HCl (Zofran Inj) 4 mg IVP Q6H PRN PRN Reason: Nausea/Vomiting Pantoprazole Sodium (Protonix Ec Tab) 20 mg PO DAILY [facility] Last Admin: 09/19/18 09:36 Dose: 20 mg Polysaccharide Iron Complex (Ferrex-150) 150 mg PO DAILY [facility] Last Admin: 09/19/18 09:35 Dose: 150 mg Quetiapine Fumarate (Seroquel Xr) 100 mg PO [facility]; Protocol Last Admin: 09/19/18 21:14 Dose: 100 mg Sevelamer HCl (Renagel) 800 mg PO TID [facility] Last Admin: 09/19/18 17:15 Dose: 800 mg - Labs Labs: 09/19/18 08:00 09/19/18 08:00 PT 13.9 SECONDS (9.4-12.5) H 09/17/18 12:15 INR 1.23 09/17/18 12:15 APTT 37.2 Seconds (26.9-38.3) 09/17/18 12:15 - Constitutional Appears: No Acute Distress - Eye Exam Eye Exam: EOMI - Respiratory Exam Respiratory Exam: Clear to Ausculation Bilateral. absent: Rales, Rhonchi, Wheezes - Cardiovascular Exam Cardiovascular Exam: REGULAR RHYTHM, +S1, +S2 - GI/Abdominal Exam GI & Abdominal Exam: Soft, Normal Bowel Sounds. absent: Tenderness - Extremities Exam Extremities Exam: absent: Calf Tenderness, Pedal Edema - Neurological Exam Neurological Exam: Alert, Awake, Oriented x3 - Psychiatric Exam Psychiatric exam: Normal Mood - Skin Skin Exam: Dry, Warm Assessment and Plan - Assessment and Plan (Free Text) Assessment: Sepsis secondary to community acquired pneumonia Left foot chronic ulcer and cellulites Chronic kidney disease CAD with stents Insulin-dependent diabetes History of COPD Hypertension Chronic anemia Peripheral vascular disease Diabetic retinopathy Diabetic nephropathy History of DVT History of PE History of acute kidney injury requiring dialysis Continue cefepime day 4, and Doxy day 3, upon d/c can go with Doxy 100mg PO BID for 5 days Follow-up septic work-up Leigonella neg, procalcitonin neg Follow-up podiatry recommendations Continue to monitor for any changes Case and plan to be reviewed and discussed with Dr. Kent
[2018-09-20 07:56] VITALS: BP 125/66; PULSE 68; RESP 18; TEMP 98.7; O2SAT 95
--- NOTE | 2018-09-20 08:00 | CP.PCM.PN ---
Subjective - Date & Time of Evaluation Date of Evaluation: 09/20/18 Time of Evaluation: 06:37 - Subjective Subjective: Awake, alert, lying in bed,no distress Reason for consultation and follow up: Cardiac follow up of coronary artery disease post stents, admitted for pneumonia and sepsis Seen and examined by me and Dr. Anton Objective - Vital Signs/Intake and Output Vital Signs (last 24 hours): Temp Pulse Resp BP Pulse Ox 98.7 F 68 18 125/66 95 09/20/18 06:00 09/20/18 06:00 09/20/18 06:00 09/20/18 06:00 09/20/18 06:00 Intake and Output: 09/20/18 09/20/18 06:59 18:59 Intake Total 780 Balance 780 - Medications Medications: Current Medications Acetaminophen (Tylenol 325mg Tab) 650 mg PO Q6H PRN PRN Reason: Fever >100.4 F Allopurinol (Zyloprim) 300 mg PO DAILY [facility] Last Admin: 09/19/18 09:36 Dose: 300 mg Aspirin (Aspirin Chewable) 81 mg PO DAILY [facility] Last Admin: 09/19/18 09:37 Dose: 81 mg Atorvastatin Calcium (Lipitor) 80 mg PO DIN [facility] Last Admin: 09/19/18 17:15 Dose: 80 mg Carvedilol (Coreg) 3.125 mg PO BID [facility] Last Admin: 09/19/18 17:15 Dose: 3.125 mg Clopidogrel Bisulfate (Plavix) 75 mg PO DAILY [facility] Last Admin: 09/19/18 09:36 Dose: 75 mg Doxycycline Hyclate (Doryx) 100 mg PO Q12 [facility]; Protocol Stop: 09/23/18 11:46 Last Admin: 09/19/18 21:14 Dose: 100 mg Furosemide (Lasix) 40 mg PO DAILY [facility] Last Admin: 09/19/18 09:36 Dose: 40 mg Gemfibrozil (Lopid) 600 mg PO BID [facility] Last Admin: 09/18/18 10:18 Dose: 600 mg Hydralazine HCl (Apresoline) 25 mg PO BID PRN PRN Reason: Other Cefepime HCl 0.5 gm/ Sodium (Chloride) 100 mls @ 100 mls/hr IVPB Q12H [facility]; Protocol Stop: 09/26/18 19:31 Last Admin: 09/20/18 06:37 Dose: 100 mls/hr Insulin Detemir (Levemir) 30 unit SC BID [facility] Last Admin: 09/19/18 17:14 Dose: 30 unit Insulin Human Lispro (Humalog Med) 0 units SC ACHS [facility]; Protocol Last Admin: 09/19/18 22:02 Dose: Not Given Insulin Human Lispro (Humalog) 30 units SC ACB [facility] Last Admin: 09/19/18 09:42 Dose: Not Given Levalbuterol HCl (Xopenex) 1.25 mg IH [id number] [facility] Last Admin: 09/20/18 07:07 Dose: 1.25 mg Magnesium Oxide (Mag-Ox) 400 mg PO BID [facility] Last Admin: 09/19/18 17:15 Dose: 400 mg Methylprednisolone (Solu-Medrol) 30 mg IV Q12 [facility] Last Admin: 09/19/18 21:15 Dose: 30 mg Montelukast Sodium (Singulair) 10 mg PO [facility] Last Admin: 09/19/18 21:14 Dose: 10 mg Nortriptyline HCl (Pamelor) 100 mg PO [facility] Last Admin: 09/19/18 21:13 Dose: 100 mg Ondansetron HCl (Zofran Inj) 4 mg IVP Q6H PRN PRN Reason: Nausea/Vomiting Pantoprazole Sodium (Protonix Ec Tab) 20 mg PO DAILY [facility] Last Admin: 09/19/18 09:36 Dose: 20 mg Polysaccharide Iron Complex (Ferrex-150) 150 mg PO DAILY [facility] Last Admin: 09/19/18 09:35 Dose: 150 mg Quetiapine Fumarate (Seroquel Xr) 100 mg PO [facility]; Protocol Last Admin: 09/19/18 21:14 Dose: 100 mg Sevelamer HCl (Renagel) 800 mg PO TID [facility] Last Admin: 09/19/18 17:15 Dose: 800 mg - Labs Labs: 09/19/18 08:00 09/19/18 08:00 PT 13.9 SECONDS (9.4-12.5) H 09/17/18 12:15 INR 1.23 09/17/18 12:15 APTT 37.2 Seconds (26.9-38.3) 09/17/18 12:15 - Constitutional Appears: Non-toxic, No Acute Distress - Eye Exam Eye Exam: Normal appearance Pupil Exam: NORMAL ACCOMODATION - ENT Exam ENT Exam: Mucous Membranes Dry - Respiratory Exam Respiratory Exam: Decreased Breath Sounds, Wheezes, NORMAL BREATHING PATTERN - Cardiovascular Exam Cardiovascular Exam: +S1, +S2 - GI/Abdominal Exam GI & Abdominal Exam: Soft, Normal Bowel Sounds - Extremities Exam Extremities Exam: Full ROM Additional comments: left foot dressing - Neurological Exam Neurological Exam: Alert, Awake, Oriented x3 - Psychiatric Exam Psychiatric exam: Normal Affect, Normal Mood - Skin Skin Exam: Dry, Normal Color, Warm Assessment and Plan - Assessment and Plan (Free Text) Assessment: A 58 year old female who came in to the ER due shortness of breath. Admitted for pneumonia. History of coronary artery disease status post PTCA in 02/2013, peripheral vascular disease with multiple vascular interventions, history of myocutaneous graft, history of abscess of left foot, CHF, hypertension, COPD,foot neuropathy,diabetes, hernia, endometriosis, depression. EKG showed sinus tachycardia, no ischemia. No evidence of acute coronary syndrome. Echo done on 03/16/18 showed normal LVEF, mild to moderate MR, mild TR, mild pulmonary hypertension. CT of chest showed right middle lobe infiltrate. ID on consult. On IV antibiotics. Pulmonary on consult. Podiatry on consult. Cardiac status stable. No further cardiac work up at this time. Wheezing, nebulizer treatment otherwise feels better. Able to sleep.Symptoms improving. Plan: Mild wheezing, nebulizer treatment given No distress,denies chest pain, Heart rate stable Blood pressure controlled Cardiac status stable On ASA 81 mg daily, Lipitor 20 mg daily, Coreg 3.125 mg BID, Solumedrol 40 mg IV every 12 hours, Continue current treatment and management Continue IV antibiotics per ID Pulmonary on consult Glucose control No further cardiac work up at this time Will follow up Plan and treatment discussed with Dr. Anton
[2018-09-20] MEDS: Insulin Lispro (humaLOG) MEDIUM Coverage SC SCH ×2 (08:05→12:08)
[2018-09-20] MEDS: Insulin Lispro 1 UNITS/0.01 ML SC SCH (08:06)
[2018-09-20] MEDS: Pantoprazole 20 mg EC Tab PO SCH (09:19)
[2018-09-20] MEDS: Iron Complex Polysacch 150mg Cap PO SCH (09:19)
[2018-09-20] MEDS: Magnesium Oxide 400 mg Tab UD PO SCH (09:19)
[2018-09-20] MEDS: MethylPREDNISolone 40 mg Vial IV SCH (09:20)
[2018-09-20] MEDS: Insulin Detemir 100 units/ml Vial (Levemir) SC SCH (09:20)
--- NOTE | 2018-09-20 09:50 | CP.PCM.PCO ---
Additional Comments - Additional Comments Additional Comments: Pt seen and examined at bedside. +cough and wheezing. Denies shortness of breath or chestpain. She is currently on Cefepime/Doxy PO and Solumedrol 30q12h for pneumonia (failed outpt treatment). Will continue to follow.
--- NOTE | 2018-09-20 10:25 | CP.PCM.PN ---
<Rosalinda Saha - Last Filed: 09/20/18 11:34> Subjective - Date & Time of Evaluation Date of Evaluation: 09/20/18 Time of Evaluation: 10:25 - Subjective Subjective: Podiatry Progress Note: Dr. Bills/Anabel 58F patient seen and examined this AM for L foot ulceration to [facility] site. Patient resting comfortably, states she feels significantly better today. She denies any pain to the L foot at this time. Patient is aware to follow up with Dr. Bills/Anabel in office upon discharge. Denies nausea/vomiting/fever/chills. Objective - Vital Signs/Intake and Output Vital Signs (last 24 hours): Temp Pulse Resp BP Pulse Ox 98.7 F 68 18 125/66 95 09/20/18 06:00 09/20/18 06:00 09/20/18 06:00 09/20/18 09:20 09/20/18 06:00 Intake and Output: 09/20/18 09/20/18 06:59 18:59 Intake Total 780 Balance 780 - Medications Medications: Current Medications Acetaminophen (Tylenol 325mg Tab) 650 mg PO Q6H PRN PRN Reason: Fever >100.4 F Allopurinol (Zyloprim) 300 mg PO DAILY [facility] Last Admin: 09/20/18 09:19 Dose: 300 mg Aspirin (Aspirin Chewable) 81 mg PO DAILY [facility] Last Admin: 09/20/18 09:19 Dose: 81 mg Atorvastatin Calcium (Lipitor) 80 mg PO DIN [facility] Last Admin: 09/19/18 17:15 Dose: 80 mg Carvedilol (Coreg) 3.125 mg PO BID [facility] Last Admin: 09/20/18 09:19 Dose: 3.125 mg Clopidogrel Bisulfate (Plavix) 75 mg PO DAILY [facility] Last Admin: 09/20/18 09:19 Dose: 75 mg Doxycycline Hyclate (Doryx) 100 mg PO Q12 [facility]; Protocol Stop: 09/23/18 11:46 Last Admin: 09/20/18 09:19 Dose: 100 mg Furosemide (Lasix) 40 mg PO DAILY [facility] Last Admin: 09/20/18 09:20 Dose: 40 mg Gemfibrozil (Lopid) 600 mg PO BID [facility] Last Admin: 09/18/18 10:18 Dose: 600 mg Hydralazine HCl (Apresoline) 25 mg PO BID PRN PRN Reason: Other Cefepime HCl 0.5 gm/ Sodium (Chloride) 100 mls @ 100 mls/hr IVPB Q12H [facility]; Protocol Stop: 09/26/18 19:31 Last Admin: 09/20/18 06:37 Dose: 100 mls/hr Insulin Detemir (Levemir) 30 unit SC BID [facility] Last Admin: 09/20/18 09:20 Dose: 30 unit Insulin Human Lispro (Humalog Med) 0 units SC ACHS [facility]; Protocol Last Admin: 09/20/18 08:05 Dose: 3 unit Insulin Human Lispro (Humalog) 30 units SC ACB [facility] Last Admin: 09/20/18 08:06 Dose: 30 units Levalbuterol HCl (Xopenex) 1.25 mg IH [id number] [facility] Last Admin: 09/20/18 07:07 Dose: 1.25 mg Magnesium Oxide (Mag-Ox) 400 mg PO BID [facility] Last Admin: 09/20/18 09:19 Dose: 400 mg Methylprednisolone (Solu-Medrol) 30 mg IV Q12 [facility] Last Admin: 09/20/18 09:20 Dose: 30 mg Montelukast Sodium (Singulair) 10 mg PO HS [facility] Last Admin: 09/19/18 21:14 Dose: 10 mg Nortriptyline HCl (Pamelor) 100 mg PO HS [facility] Last Admin: 09/19/18 21:13 Dose: 100 mg Ondansetron HCl (Zofran Inj) 4 mg IVP Q6H PRN PRN Reason: Nausea/Vomiting Pantoprazole Sodium (Protonix Ec Tab) 20 mg PO DAILY [facility] Last Admin: 09/20/18 09:19 Dose: 20 mg Polysaccharide Iron Complex (Ferrex-150) 150 mg PO DAILY [facility] Last Admin: 09/20/18 09:19 Dose: 150 mg Quetiapine Fumarate (Seroquel Xr) 100 mg PO HS [facility]; Protocol Last Admin: 09/19/18 21:14 Dose: 100 mg Sevelamer HCl (Renagel) 800 mg PO TID [facility] Last Admin: 09/20/18 09:19 Dose: 800 mg - Labs Labs: 09/19/18 08:00 09/19/18 08:00 PT 13.9 SECONDS (9.4-12.5) H 09/17/18 12:15 INR 1.23 09/17/18 12:15 APTT 37.2 Seconds (26.9-38.3) 09/17/18 12:15 - Constitutional Appears: Non-toxic, No Acute Distress - Head Exam Head Exam: ATRAUMATIC, NORMOCEPHALIC - Eye Exam Eye Exam: Normal appearance - ENT Exam ENT Exam: Mucous Membranes Moist - Extremities Exam Extremities Exam: absent: Calf Tenderness Additional comments: LLE focused Vasc: DP/PT 1/4 , Temp gradient warm to warm from proximal to distal, no edema appreciated to left lower extremity at this time Ortho: No pain upon palpation, MMT 5/5 Neuro: Gross and protective sensations are diminished Derm: TMA site ulceration with granular base at this time. No drainage present, no tunneling, no tracking, no erythema, no clinical signs of infection noted at this time - Neurological Exam Neurological Exam: Alert, Awake, Oriented x3 - Psychiatric Exam Psychiatric exam: Normal Affect, Normal Mood Assessment and Plan - Assessment and Plan (Free Text) Assessment: 58F with non-healing ulceration to L foot; stable and improving Plan: Patient seen and evaluated VSS Most recent culture of L foot from Dr. Bills's office; light MRSA growth L foot local wound care: saline cleanse, xeroform, ABD, and kerlix IV abx per ID Stable from podiatry standpoint Upon d/c patient to f/u with Dr. Bills in office <Rodríguez Little - Last Filed: 09/20/18 11:46> Objective - Vital Signs/Intake and Output Vital Signs (last 24 hours): Temp Pulse Resp BP Pulse Ox 98.7 F 68 18 125/66 95 09/20/18 06:00 09/20/18 06:00 09/20/18 06:00 09/20/18 09:20 09/20/18 06:00 Intake and Output: 09/20/18 09/20/18 06:59 18:59 Intake Total 780 Balance 780 - Medications Medications: Current Medications Acetaminophen (Tylenol 325mg Tab) 650 mg PO Q6H PRN PRN Reason: Fever >100.4 F Allopurinol (Zyloprim) 300 mg PO DAILY [facility] Last Admin: 09/20/18 09:19 Dose: 300 mg Aspirin (Aspirin Chewable) 81 mg PO DAILY [facility] Last Admin: 09/20/18 09:19 Dose: 81 mg Atorvastatin Calcium (Lipitor) 80 mg PO DIN [facility] Last Admin: 09/19/18 17:15 Dose: 80 mg Carvedilol (Coreg) 3.125 mg PO BID [facility] Last Admin: 09/20/18 09:19 Dose: 3.125 mg Clopidogrel Bisulfate (Plavix) 75 mg PO DAILY [facility] Last Admin: 09/20/18 09:19 Dose: 75 mg Doxycycline Hyclate (Doryx) 100 mg PO Q12 [facility]; Protocol Stop: 09/23/18 11:46 Last Admin: 09/20/18 09:19 Dose: 100 mg Furosemide (Lasix) 40 mg PO DAILY [facility] Last Admin: 09/20/18 09:20 Dose: 40 mg Gemfibrozil (Lopid) 600 mg PO BID [facility] Last Admin: 09/18/18 10:18 Dose: 600 mg Hydralazine HCl (Apresoline) 25 mg PO BID PRN PRN Reason: Other Cefepime HCl 0.5 gm/ Sodium (Chloride) 100 mls @ 100 mls/hr IVPB Q12H [facility]; Protocol Stop: 09/26/18 19:31 Last Admin: 09/20/18 06:37 Dose: 100 mls/hr Insulin Detemir (Levemir) 30 unit SC BID [facility] Last Admin: 09/20/18 09:20 Dose: 30 unit Insulin Human Lispro (Humalog Med) 0 units SC ACHS [facility]; Protocol Last Admin: 09/20/18 08:05 Dose: 3 unit Insulin Human Lispro (Humalog) 30 units SC ACB [facility] Last Admin: 09/20/18 08:06 Dose: 30 units Levalbuterol HCl (Xopenex) 1.25 mg IH [id number] [facility] Last Admin: 09/20/18 07:07 Dose: 1.25 mg Magnesium Oxide (Mag-Ox) 400 mg PO BID [facility] Last Admin: 09/20/18 09:19 Dose: 400 mg Methylprednisolone (Solu-Medrol) 30 mg IV Q12 [facility] Last Admin: 09/20/18 09:20 Dose: 30 mg Montelukast Sodium (Singulair) 10 mg PO HS [facility] Last Admin: 09/19/18 21:14 Dose: 10 mg Nortriptyline HCl (Pamelor) 100 mg PO [facility] Last Admin: 09/19/18 21:13 Dose: 100 mg Ondansetron HCl (Zofran Inj) 4 mg IVP Q6H PRN PRN Reason: Nausea/Vomiting Pantoprazole Sodium (Protonix Ec Tab) 20 mg PO DAILY [facility] Last Admin: 09/20/18 09:19 Dose: 20 mg Polysaccharide Iron Complex (Ferrex-150) 150 mg PO DAILY [facility] Last Admin: 09/20/18 09:19 Dose: 150 mg Quetiapine Fumarate (Seroquel Xr) 100 mg PO [facility]; Protocol Last Admin: 09/19/18 21:14 Dose: 100 mg Sevelamer HCl (Renagel) 800 mg PO TID [facility] Last Admin: 09/20/18 09:19 Dose: 800 mg - Labs Labs: 09/19/18 08:00 09/19/18 08:00 PT 13.9 SECONDS (9.4-12.5) H 09/17/18 12:15 INR 1.23 09/17/18 12:15 APTT 37.2 Seconds (26.9-38.3) 09/17/18 12:15 Attending/Attestation - Attestation I have personally seen and examined this patient.: Yes I have fully participated in the care of the patient.: Yes I have reviewed all pertinent clinical information, including history, physical exam and plan: Yes
--- NOTE | 2018-09-21 03:32 | DS ---
HISTORY OF PRESENT ILLNESS: The patient is 58-year-old who was seen by me in the office. She was coughing and she was congested. She was given course of antibiotic. She was on doxycycline and prednisone. She finished her course, but still was coughing, so she came to emergency room for further evaluation. She had CT of the chest done that shows infiltrates. The patient remained on IV antibiotic nebulizer treatment, IV steroids and started to do well. Her wheezing has significantly improved on today's exam. She is being discharge today. PHYSICAL EXAMINATION: GENERAL: She is awake, alert and able to communicate. VITAL SIGNS: She is afebrile. Pulse 60, respiration 18 and blood pressure 125/66. LUNGS: Bilateral fair airflow. Few occasional expiratory rhonchi. She still has chest congestion upon coughing noted. ABDOMEN: Soft and nontender. No rebound. No guarding. NEUROLOGIC: She is awake, alert and able to communicate. EXTREMITIES: Left foot is in the cast. LABORATORY DATA: Blood sugar is 78. ASSESSMENT: 1. Resolving pneumonia. 2. Congestive heart failure, resolving. 3. Coronary artery disease, status post angioplasty. 4. Peripheral vascular disease. 5. Insulin-dependant diabetes. 6. History of hypertension, currently running hypotensive. PLAN: The patient is being discharged home today on doxycycline and prednisone. I will followup the patient in office in a week or two. The patient will monitor her blood sugar. She was told that her blood pressure might be high because of her being on steroid, she understands. Colt Zhu MD
== END 2018-09-20 14:15 | disposition home health service (06) | DRG 871 ==
LOC: ED 10:46 → ERH 12:45 → 2RSO 15:33 → 5RNO 09-19 13:40
PROVIDERS: ADMIT Internal Medicine; ATTEND Internal Medicine
DX: A41.9 Sepsis, unspecified organism (principal); J18.9 Pneumonia, unspecified organism; J44.0 Chronic obstructive pulmonary disease with (acute) lower respiratory infection; N17.9 Acute kidney failure, unspecified; I13.0 Hypertensive heart and chronic kidney disease with heart failure and stage 1 through stage 4 chronic kidney disease, or unspecified chronic kidney disease; N18.4 Chronic kidney disease, stage 4 (severe); E11.51 Type 2 diabetes mellitus with diabetic peripheral angiopathy without gangrene; E11.21 Type 2 diabetes mellitus with diabetic nephropathy; E11.65 Type 2 diabetes mellitus with hyperglycemia; E86.0 Dehydration; I95.9 Hypotension, unspecified; E11.621 Type 2 diabetes mellitus with foot ulcer; L97.529 Non-pressure chronic ulcer of other part of left foot with unspecified severity; J20.9 Acute bronchitis, unspecified; I25.10 Atherosclerotic heart disease of native coronary artery without angina pectoris; E11.22 Type 2 diabetes mellitus with diabetic chronic kidney disease; E11.610 Type 2 diabetes mellitus with diabetic neuropathic arthropathy; I50.9 Heart failure, unspecified; D63.1 Anemia in chronic kidney disease; E78.5 Hyperlipidemia, unspecified; I27.20 Pulmonary hypertension, unspecified; E11.319 Type 2 diabetes mellitus with unspecified diabetic retinopathy without macular edema; Z87.891 Personal history of nicotine dependence; Z95.5 Presence of coronary angioplasty implant and graft; Z86.711 Personal history of pulmonary embolism; Z86.718 Personal history of other venous thrombosis and embolism; Z79.4 Long term (current) use of insulin; Z79.02 Long term (current) use of antithrombotics/antiplatelets